=== PATIENT | female | born 2000 | race Caucasian/White ===

== ENCOUNTER 2023-03-03 20:58 | Emergency (ER) | payer OTHER, SELFPAY ==
[2023-03-03 21:01] VITALS: BP 141/91; PULSE 94; RESP 18; TEMP 36.7; O2SAT 97; BMI 39.0
[2023-03-03] MEDS: ONDANSETRON 4 MG RAPDIS TABLET PO (21:32)
[2023-03-03 21:43] LABS: Basophils Absolute Auto 0.1 10^3/uL (0.0-0.1); Basophils Percent Auto 0.6 % (0.2-2.0); Eosinophils Absolute Auto 0.3 10^3/uL (0.0-0.7); Eosinophils Percent Auto 3.2 % (0.9-7.0); Hematocrit 42.2 % (36.0-48.0); Hemoglobin 14.5 g/dL (12.0-16.0); Immature Granulocytes Abs Auto 0.04 10^3/uL (0.00-0.03); Immature Granulocytes Pct Auto 0.4 % (0.0-0.5); Lymphocytes Absolute Auto 2.6 10^3/uL (1.2-3.8); Lymphocytes Percent Auto 27.1 % (20.5-60.0); Mean Corpuscular HGB Conc 34.4 g/dL (29.9-35.2); Mean Corpuscular Hemoglobin 30.6 pg (26.7-34.0); Mean Platelet Volume 10.9 fL (9.5-13.5); Monocytes Absolute Auto 0.6 10^3/uL (0.3-0.8); Monocytes Percent Auto 6.2 % (1.7-12.0); Neutrophils Absolute Auto 6.1 10^3/uL (1.4-6.5); Neutrophils Percent Auto 62.5 % (43.0-75.0); Platelet Count 227 10^3/uL (150-450); Red Blood Count 4.74 10^6/uL (4.20-5.40); White Blood Count 9.7 10^3/uL (4.0-11.0)
[2023-03-03 22:02] LABS: Alanine Aminotransferase 47 U/L (14-59); Albumin Globulin Ratio 1.1; Albumin Level 3.7 g/dL (3.4-5.0); Alkaline Phosphatase 51 U/L (46-116); Anion Gap 12.1; Aspartate Amino Transferase 16 U/L (15-37); BUN Creatinine Ratio 10.2; Bilirubin Total 0.6 mg/dL (0.2-1.0); Calcium 8.6 mg/dL (8.5-10.1); Carbon Dioxide 27.2 mmol/L (21.0-32.0); Chloride 103 mmol/L (98-107); Estimated GFR (African America >60 (>=60); Estimated GFR (Non-African Ame >60 (>=60); Globulin 3.4 g/dL; Glucose 89 mg/dL (74-106); Potassium 3.3 mmol/L (3.5-5.1); Sodium 139 mmol/L (136-145); Total Protein 7.1 g/dL (6.4-8.2)
--- NOTE | 2023-03-03 22:44 | ED.ABDPAIN1 ---
HPI - Abdominal Pain General Chief Complaint: Abdominal Pain Stated Complaint: Abdominal Pain Time Seen by Provider: 03/03/23 21:05 Source: patient Mode of arrival: walk-in Limitations: no limitations History of Present Illness HPI narrative: patient with a past history of gallbladder problems for which she had previously been referred to a surgeon but decided against cholecystectomy, presents with upper abdominal pain, radiating to her back, it was associated with nausea, starting yesterday. She ate less today as his symptoms persisted and it seemed as though every time she ate, symptoms worsened. by the time she came to the emergency department today she was feeling much much better with less abdominal pain, no longer having nausea. No fever or chills. No recent fall or injury. She is breast-feeding. Related Data Previous Rx's Medication Instructions Recorded ondansetron 4 mg disintegrating 4 mg PO Q6H PRN nausea and 03/03/23 tablet vomiting #20 tabs Allergies Allergy/AdvReac Type Severity Reaction Status Date / Time No Known Drug Allergies Allergy Verified 03/03/23 21:06 Exam Narrative Exam Narrative: Nurses notes and vital signs reviewed and patient is not hypoxic. afebrile General: Well-appearing and in no apparent distress. Skin: Warm, dry, no pallor noted. Head: Normocephalic, atraumatic. Eye: Pupils are equal, round and EOMI. No scleral icterus. Cardiovascular: Regular Rate and Rhythm without murmur, gallop or rub. Respiratory: No accessory muscle use or respiratory distress. Lungs are clear to auscultation, no wheezing, rales or rhonchi Back: No CVA tenderness Musculoskeletal: normal ROM GI: Abdomen is soft, non-distended. Normal bowel sounds. No masses appreciated. No tenderness to palpation. No rebound, guarding, or rigidity noted. Neurological: A&O x4. No cranial nerve dysfunction observed. No truncal ataxia. Moves all extremities. Sensation intact. Psychiatric: Cooperative and interactive. Normal mood and affect. Constitutional Vital Signs, click to edit/add: Last Vital Signs Temp 98.1 F 03/03/23 21:01 Pulse 94 H 03/03/23 21:01 Resp 18 03/03/23 21:01 BP 141/91 03/03/23 21:01 Pulse Ox 97 03/03/23 21:01 O2 Del Method Room Air 03/03/23 21:01 Course Vital Signs Vital signs: Vital Signs Temperature 98.1 F 03/03/23 21:01 Pulse Rate 94 H 03/03/23 21:01 Respiratory Rate 18 03/03/23 21:01 Blood Pressure 141/91 03/03/23 21:01 Pulse Oximetry 97 03/03/23 21:01 Oxygen Delivery Method Room Air 03/03/23 21:01 Temperature 98.1 F 03/03/23 21:01 Pulse Rate 94 H 03/03/23 21:01 Respiratory Rate 18 03/03/23 21:01 Blood Pressure 141/91 03/03/23 21:01 Pulse Oximetry 97 03/03/23 21:01 Oxygen Delivery Method Room Air 03/03/23 21:01 MDM - Abdominal Pain MDM Narrative Medical decision making narrative: blood tests are notable only for very slightly decreased potassium. Renal function is normal. White blood cell count is normal. Electrolytes are otherwise normal. LFTs are negative. Lipase negative. Bilirubin normal. The patient had received oral dissolvable Zofran in the emergency department. She is breast-feeding. She was discharged home with a prescription for additional Zofran and recommendation maintain a clear liquid diet and advance to soft bland foods until her symptoms resolve. She was given referral information for Dr. Cabral for follow-up. Lab Data Attestation: I reviewed the patient's lab results. Labs: Lab Results 03/03/23 Range/Units 21:31 WBC 9.7 (4.0-11.0) 10^3/uL RBC 4.74 (4.20-5.40) 10^6/uL Hgb 14.5 (12.0-16.0) g/dL Hct 42.2 (36.0-48.0) % MCV 89.0 (81.0-99.0) fL MCH 30.6 (26.7-34.0) pg MCHC 34.4 (29.9-35.2) g/dL RDW 12.0 (11.0-15.0) % Plt Count 227 (150-450) 10^3/uL MPV 10.9 (9.5-13.5) fL Neut % (Auto) 62.5 (43.0-75.0) % Lymph % (Auto) 27.1 (20.5-60.0) % [place] % (Auto) 6.2 (1.7-12.0) % Eos % (Auto) 3.2 (0.9-7.0) % Baso % (Auto) 0.6 (0.2-2.0) % Neut # (Auto) 6.1 (1.4-6.5) 10^3/uL Lymph # (Auto) 2.6 (1.2-3.8) 10^3/uL [place] # (Auto) 0.6 (0.3-0.8) 10^3/uL Eos # (Auto) 0.3 (0.0-0.7) 10^3/uL Baso # (Auto) 0.1 (0.0-0.1) 10^3/uL Abs Immat Gran (auto) 0.04 H (0.00-0.03) 10^3/uL Imm/Tot Granulo (auto) 0.4 (0.0-0.5) % Sodium 139 (136-145) mmol/L Potassium 3.3 L (3.5-5.1) mmol/L Chloride 103 (98-107) mmol/L Carbon Dioxide 27.2 (21.0-32.0) mmol/L Anion Gap 12.1 BUN 6.0 L (7.0-18.0) mg/dL Creatinine 0.59 (0.55-1.02) mg/dL Est GFR ( Amer) >60 (>=60) Est GFR (Non-Af Amer) >60 (>=60) BUN/Creatinine Ratio 10.2 Glucose 89 (74-106) mg/dL Calcium 8.6 (8.5-10.1) mg/dL Total Bilirubin 0.6 (0.2-1.0) mg/dL AST 16 (15-37) U/L ALT 47 (14-59) U/L Alkaline Phosphatase 51 (46-116) U/L Total Protein 7.1 (6.4-8.2) g/dL Albumin 3.7 (3.4-5.0) g/dL Globulin 3.4 g/dL Albumin/Globulin Ratio 1.1 Lipase 24.0 (16.0-77.0) U/L Discharge Plan Discharge Chief Complaint: Abdominal Pain Clinical Impression: Abdominal pain, Biliary colic Patient Disposition: Home, Self-Care Time of Disposition Decision: 22:47 Prescriptions / Home Meds: New ondansetron 4 mg tablet,disintegrating 4 mg PO Q6H PRN (Reason: nausea and vomiting) Qty: 20 0RF Instructions: Biliary Colic (ED), Abdominal Pain (ED) Stand Alone Forms: Portal Instructions Referrals: Giovany Cabral MD [Physician] - As soon as possible
[2023-03-03] MEDS: POTASSIUM CHLORIDE 10 MEQ ER TABLET 40 MEQ PO (22:53)
== END 2023-03-03 22:59 | disposition home or self-care (01) ==
PROVIDERS: Emergency Provider Emergency Medicine
DX: R10.9 Unspecified abdominal pain (principal); K80.50 Calculus of bile duct without cholangitis or cholecystitis without obstruction
CPT/HCPCS: 36415; 80053; 83690; 85025; 99283

== ENCOUNTER 2023-03-06 20:05 | Emergency (ER) | payer OTHER, SELFPAY ==
[2023-03-06 20:09] VITALS: BP 140/92; PULSE 66; RESP 16; TEMP 36.7; O2SAT 99; BMI 39.0
--- NOTE | 2023-03-06 20:41 | ED_ITS ---
HPI - General Adult General Chief complaint: Abdominal Pain Stated complaint: gallbladder Time Seen by Provider: 03/06/23 20:20 Source: patient Mode of arrival: walk-in History of Present Illness HPI narrative: This 22-year-old female presents for evaluation of ongoing epigastric, right upper quadrant and right upper back pain. The patient states when she was 12 she was diagnosed with gallbladder disease by her rip sawyer. Due to her young age her gallbladder was not removed. She has had intermittent problems with her gallbladder since that time. She was seen here several days ago with gallbladder pain and was discharged home with a prescription of Zofran. She called the general surgeon who was on-call to make an appointment but cannot get in to see him until March. She states she is having pain every time she eats with [employer] and occasional vomiting. She is not having any diarrhea. She denies any tobacco or alcohol use. She states that her symptoms have been waxing and waning for the past 10 years but recently has gotten worse. She is and breast-feeding. She denies any chest pain or shortness of breath. She points to her right mid to upper back as area of radiation of her pain. She has not had any recent radiographic studies but did have labs several days ago that were normal. Related Data Previous Rx's Medication Instructions Recorded ondansetron 4 mg disintegrating 4 mg PO Q6H PRN nausea and 03/03/23 tablet vomiting #20 tabs Allergies Allergy/AdvReac Type Severity Reaction Status Date / Time No Known Drug Allergies Allergy Verified 03/06/23 20:14 Review of Systems ROS Status of ROS 10 or more systems reviewed and unremarkable except as noted in history and below [facility] Social History Smoking status: Never smoker Exam Narrative Exam Narrative: Nurses note and vital signs reviewed and patient is not hypoxic. Blood pressure is mildly elevated at 140/92 General: The patient appears well and in no apparent distress. Patient is resting comfortably on cart. No active vomiting Skin: Warm, dry, no pallor noted. There is no rash noted. Head: Normocephalic, atraumatic Eye: Normal conjunctiva, no drainage, EOMI. PERRL Ears, Nose, Mouth, and Throat: oral mucosa is moist. Nares patent. Mouth without vesicles. Ear canals patent. Tm's without Erythema Cardiovascular: Regular Rate and Rhythm, pulses are brisk and equal bilaterally Respiratory: Patient is in no distress, no accessory muscle use, lungs are clear to auscultation, no wheezing, rales or rhonchi Back: no midline bony vertebral tenderness or step-off, no reproducible tenderness, no CVA tenderness bilaterally to percussion. GI: Obese,soft, non-distended, tenderness to epigastrium and RUQ with minimal guarding, bowel sounds are normal, no RLQ or LUQ or LLQ tenderness to palpation Musculoskeletal: The patient has no evidence of calf tenderness, no pitting edema, symmetrical pulses noted bilaterally Neurological: A&O x4, normal speech Psychiatric: Cooperative Constitutional Vital Signs, click to edit/add: Last Vital Signs Temp 98.1 F 03/06/23 20:09 Pulse 66 03/06/23 20:09 Resp 16 03/06/23 20:09 BP 140/92 H 03/06/23 20:09 Pulse Ox 99 03/06/23 20:09 O2 Del Method Room Air 03/06/23 20:09 Course Vital Signs Vital signs: Vital Signs Temperature 98.1 F 03/06/23 20:09 Pulse Rate 66 03/06/23 20:09 Respiratory Rate 16 03/06/23 20:09 Blood Pressure 140/92 H 03/06/23 20:09 Pulse Oximetry 99 03/06/23 20:09 Oxygen Delivery Method Room Air 03/06/23 20:09 Temperature 98.1 F 03/06/23 20:09 Pulse Rate 66 03/06/23 20:09 Respiratory Rate 16 03/06/23 20:09 Blood Pressure 140/92 H 03/06/23 20:09 Pulse Oximetry 99 03/06/23 20:09 Oxygen Delivery Method Room Air 03/06/23 20:09 Medical Decision Making [facility] Narrative Medical decision making narrative: 22-year-old female presents for evaluation of rapid upper quadrant and right mid to upper back pain. She states she has been having gallbladder problems since she was 12. She was seen here recently and had routine labs done that were normal. She was given a prescription for Zofran and referred to outpatient general surgery. She presents for evaluation of ongoing and worsening symptoms. She has been eating bland foods such as chicken soup but still having nausea, right upper quadrant pain with radiation into her back. She has not had a fever. She is breast-feeding. She has been taking Tylenol without relief of her pain. On her physical exam she was mildly tender in the right upper quadrant and epigastrium. An IV was placed and she was medicated with IV fluids, Toradol and Zofran. I reviewed her labs from her recent visit and they were normal. Today's labs are similar with a low potassium at 3.0 and a mild elevation in her bilirubin and ALT. She has a normal white count and hemoglobin. She has not had any radiographic imaging done since her symptoms started. I explained that I do not have ultrasound available what would CAT scan her to make sure that there was nothing else going on. She requested a test prior to the CT scan and the CT scan was canceled as her test is positive. She is however feeling better. She will be referred to her TAXONOM[employer] TEACHER and will follow up with outpatient general surgery as previously scheduled. She will be given a prescription for potassium to take for her low potassium and a prescription for vitamins. Lab Data Labs: Lab Results 03/06/23 03/06/23 Range/Units 20:40 22:30 WBC 9.7 (4.0-11.0) 10^3/uL RBC 4.89 (4.20-5.40) 10^6/uL Hgb 14.9 (12.0-16.0) g/dL Hct 43.3 (36.0-48.0) % MCV 88.5 (81.0-99.0) fL MCH 30.5 (26.7-34.0) pg MCHC 34.4 (29.9-35.2) g/dL RDW 11.9 (11.0-15.0) % Plt Count 222 (150-450) 10^3/uL MPV 11.3 (9.5-13.5) fL Neut % (Auto) 67.1 (43.0-75.0) % Lymph % (Auto) 23.7 (20.5-60.0) % [place] % (Auto) 5.8 (1.7-12.0) % Eos % (Auto) 2.6 (0.9-7.0) % Baso % (Auto) 0.5 (0.2-2.0) % Neut # (Auto) 6.5 (1.4-6.5) 10^3/uL Lymph # (Auto) 2.3 (1.2-3.8) 10^3/uL [place] # (Auto) 0.6 (0.3-0.8) 10^3/uL Eos # (Auto) 0.3 (0.0-0.7) 10^3/uL Baso # (Auto) 0.1 (0.0-0.1) 10^3/uL Abs Immat Gran (auto) 0.03 (0.00-0.03) 10^3/uL Imm/Tot Granulo (auto) 0.3 (0.0-0.5) % D-Dimer 0.38 (<=0.59) mg/L FEU Sodium 139 (136-145) mmol/L Potassium 3.0 L (3.5-5.1) mmol/L Chloride 101 (98-107) mmol/L Carbon Dioxide 25.2 (21.0-32.0) mmol/L Anion Gap 15.8 BUN 3.0 L (7.0-18.0) mg/dL Creatinine 0.54 L (0.55-1.02) mg/dL Est GFR ( Amer) >60 (>=60) Est GFR (Non-Af Amer) >60 (>=60) BUN/Creatinine Ratio 5.6 Glucose 73 L (74-106) mg/dL Calcium 8.1 L (8.5-10.1) mg/dL Total Bilirubin 1.4 H (0.2-1.0) mg/dL AST 29 (15-37) U/L ALT 68 H (14-59) U/L Alkaline Phosphatase 57 (46-116) U/L Total Protein 7.2 (6.4-8.2) g/dL Albumin 3.7 (3.4-5.0) g/dL Globulin 3.5 g/dL Albumin/Globulin Ratio 1.1 Lipase 24.0 (16.0-77.0) U/L Urine HCG, Qual Positive A (NEGATIVE) Discharge Plan Discharge Chief Complaint: Abdominal Pain Clinical Impression: Positive test, Biliary colic, Hypokalemia Patient Disposition: Home, Self-Care Time of Disposition Decision: 23:03 Condition: Good Prescriptions / Home Meds: No Action ondansetron 4 mg tablet,disintegrating 4 mg PO Q6H PRN (Reason: nausea and vomiting) Qty: 20 0RF Instructions: (ED), Biliary Colic (ED), Hypokalemia (ED) Stand Alone Forms: Portal Instructions Referrals: Physician,Non-Staff, [Primary Care Provider] - 1 week Fletcher Pro DO [Physician] - 1 week Mirella Rosales MD [Emergency Provider] - 1 week
[2023-03-06] MEDS: 0.9 % SODIUM CHLORIDE 1,000 ML 1000 ML IV (20:55)
[2023-03-06] MEDS: KETOROLAC TROMETHAMINE 30 MG/ML VIAL IVP (20:56)
[2023-03-06] MEDS: FAMOTIDINE/PF 20 MG/2 ML VIAL IV (20:56)
[2023-03-06] MEDS: ONDANSETRON PF 4 MG/2 ML VIAL IV (20:56)
[2023-03-06 21:25] LABS: Basophils Absolute Auto 0.1 10^3/uL (0.0-0.1); Basophils Percent Auto 0.5 % (0.2-2.0); Eosinophils Absolute Auto 0.3 10^3/uL (0.0-0.7); Eosinophils Percent Auto 2.6 % (0.9-7.0); Hematocrit 43.3 % (36.0-48.0); Hemoglobin 14.9 g/dL (12.0-16.0); Immature Granulocytes Abs Auto 0.03 10^3/uL (0.00-0.03); Immature Granulocytes Pct Auto 0.3 % (0.0-0.5); Lymphocytes Absolute Auto 2.3 10^3/uL (1.2-3.8); Lymphocytes Percent Auto 23.7 % (20.5-60.0); Mean Corpuscular HGB Conc 34.4 g/dL (29.9-35.2); Mean Corpuscular Hemoglobin 30.5 pg (26.7-34.0); Mean Corpuscular Volume 88.5 fL (81.0-99.0); Mean Platelet Volume 11.3 fL (9.5-13.5); Monocytes Absolute Auto 0.6 10^3/uL (0.3-0.8); Monocytes Percent Auto 5.8 % (1.7-12.0); Neutrophils Absolute Auto 6.5 10^3/uL (1.4-6.5); Neutrophils Percent Auto 67.1 % (43.0-75.0); Platelet Count 222 10^3/uL (150-450); Red Blood Count 4.89 10^6/uL (4.20-5.40); Red Cell Distribution Width 11.9 % (11.0-15.0); White Blood Count 9.7 10^3/uL (4.0-11.0)
[2023-03-06 21:36] LABS: Alanine Aminotransferase 68 U/L (14-59); Albumin Globulin Ratio 1.1; Albumin Level 3.7 g/dL (3.4-5.0); Alkaline Phosphatase 57 U/L (46-116); Anion Gap 15.8; Aspartate Amino Transferase 29 U/L (15-37); BUN Creatinine Ratio 5.6; Bilirubin Total 1.4 mg/dL (0.2-1.0); Calcium 8.1 mg/dL (8.5-10.1); Carbon Dioxide 25.2 mmol/L (21.0-32.0); Chloride 101 mmol/L (98-107); Estimated GFR (African America >60 (>=60); Estimated GFR (Non-African Ame >60 (>=60); Globulin 3.5 g/dL; Glucose 73 mg/dL (74-106); Sodium 139 mmol/L (136-145); Total Protein 7.2 g/dL (6.4-8.2)
[2023-03-06 21:48] LABS: D Dimer 0.38 mg/L FEU (<=0.59)
[2023-03-06 22:40] LABS: HCG Qualitative Urine* POSITIVE (NEGATIVE)
[2023-03-06 23:13] VITALS: BP 122/78; PULSE 68; RESP 15; O2SAT 100
== END 2023-03-06 23:15 | disposition home or self-care (01) ==
PROVIDERS: Emergency Provider Emergency Medicine
DX: O26.899 Other specified pregnancy related conditions, unspecified trimester (principal); K80.50 Calculus of bile duct without cholangitis or cholecystitis without obstruction; E87.6 Hypokalemia; Z3A.00 Weeks of gestation of pregnancy not specified
CPT/HCPCS: 36415; 80053; 83690; 84703; 85025; 85378; 96361; 96374; 96375; 99284

== ENCOUNTER 2023-03-07 14:17 | Outpatient (OUT) | payer OTHER, SELFPAY ==
--- NOTE | 2023-03-07 15:25 | US_ITS ---
The [address] [address] Patient Name: EDISON ASHLEY MRN: [id number] date: 2000 Sex: F Assigned Patient Location: LAB Current Patient Location: .[facility] Accession/Order Number: [id number] Exam Date: 03/07/2023 15:34 Report Date: 03/08/2023 06:39 At the request of: XIN GRULLON Procedure: US right upper quadrant EXAMINATION: US right upper quadrant HISTORY: Right Side Upper Quadrant Pain, Gallbladder attack K82.9 COMPARISON: No relevant comparison available. TECHNIQUE: Transabdominal evaluation of the right upper quadrant. FINDINGS: LIVER: Normal size and echotexture. Color Doppler demonstrates patent hepatic veins. PORTAL VEIN: Duplex Doppler demonstrates normal hepatopetal flow pattern with elevated flow velocity averaging 141 cm/s. GALLBLADDER: Contains several large stones, largest is 3.2 cm. Gallbladder is filled with dense material/sludge. No abnormal wall thickening or free fluid. BILIARY: No abnormal dilation or stones. Common bile duct diameter is within normal limits. PANCREASE: No visible mass, abnormal atrophy, or duct dilation. KIDNEY: Avascular area of soft tissue echogenicity within mid body of kidney, 2.1 cm in diameter. No cortical thinning, stones, free fluid. Size: 11.8 x 5.9 x 5.3 cm US/US right upper quadrant IMPRESSION: 1. Cholelithiasis: Multiple large stones within noninflamed gallbladder, and debris filling the gallbladder, likely sludge. 2. Nonspecific 2.1 cm area which appears to represent soft tissue within mid body of right kidney. Given patient's age malignancy is unlikely, but consider follow-up CT abdomen with and without IV contrast for further evaluation or follow-up ultrasound in 2-3 weeks. Electronically authenticated by: PAM SALAZAR Date: 03/08/2023 06:39
[2023-03-07 16:19] LABS: HCG Quantitative 15708 mIU/mL
== END 2023-03-07 14:18 | disposition home or self-care (01) ==
LOC: LAB 14:21
PROVIDERS: Visit Provider Obstetrics & Gynecology
DX: N92.6 Irregular menstruation, unspecified (principal); K82.9 Disease of gallbladder, unspecified; K80.20 Calculus of gallbladder without cholecystitis without obstruction
CPT/HCPCS: 36415; 76705; 84702

== ENCOUNTER 2023-03-08 06:07 | Emergency (ER) | payer OTHER, SELFPAY ==
[2023-03-08 06:17] VITALS: BP 146/83; PULSE 99; RESP 16; TEMP 36.4; O2SAT 96
--- NOTE | 2023-03-08 06:34 | ED.ABDPAIN1 ---
HPI - Abdominal Pain General Chief Complaint: Abdominal Pain Stated Complaint: gallbladder pain Time Seen by Provider: 03/08/23 06:18 Source: patient Mode of arrival: walk-in Limitations: no limitations History of Present Illness HPI narrative: patient presents complaining of abdominal pain. Believes it is her gallbladder. Has been here a couple of times in the past few days for the same. Seen a couple of days ago and CT abdomen not performed because of . Seen by energy conservation engineer yesterday who ordered an ultrasound of her gallbladder. States she has not been able to eat much because of the pain. Points to her right back , RUQ and bilat lower quads as site of pain. No fever. has nausea that she is able to treat with zofran. MD elicited complaint: Reports abdominal pain Related Data Home Medications Medication Instructions Recorded Confirmed metoclopramide HCl 10 mg tablet mg 03/08/23 omeprazole 20 mg capsule,delayed mg 03/08/23 release potassium chloride 20 mEq meq PO 03/08/23 tablet,extended release(part/cryst) (Klor-Con M) vitamin with calcium tab 03/08/23 no.72-iron 27 mg-folic acid 1 mg tablet (M-Lashonda Plus) Previous Rx's Medication Instructions Recorded ondansetron 4 mg disintegrating 4 mg PO Q6H PRN nausea and 03/03/23 tablet vomiting #20 tabs Allergies Allergy/AdvReac Type Severity Reaction Status Date / Time No Known Drug Allergies Allergy Verified 03/08/23 06:16 Review of Systems ROS Status of ROS 10 or more systems reviewed and unremarkable except as noted in history and below PFS PFS Social History Smoking status: Never smoker Exam Constitutional Vital Signs, click to edit/add: Last Vital Signs Temp 97.6 F 03/08/23 06:17 Pulse 99 H 03/08/23 06:17 Resp 16 03/08/23 06:17 BP 146/83 H 03/08/23 06:17 Pulse Ox 96 03/08/23 06:17 O2 Del Method Room Air 03/08/23 06:17 Common normals: no apparent distress, oriented x3, no limitations, healthy appearing, alert and well nourished [facility] Common normals: normocephalic and head/scalp atraumatic Eye Common normals: PERRL, EOMs intact bilaterally and conjunctivae normal Respiratory Common normals: normal respiratory effort, no retractions, no use of accessory muscles and clear to auscultation bilaterally Cardio Common normals: regular rate, regular rhythm, S1 normal heart sound and S2 normal heart sound GI Other: mild abdominal tenderness. no focal findings Extremity Common normals: normal to inspection and full ROM Neuro Common normals: oriented x3, CN's II-XII intact bilaterally, moves all extremities, no focal motor deficits and no sensory deficits noted Psych Appearance: grossly normal Course Vital Signs Vital signs: Vital Signs Temperature 97.6 F 03/08/23 06:17 Pulse Rate 99 H 03/08/23 06:17 Respiratory Rate 16 03/08/23 06:17 Blood Pressure 146/83 H 03/08/23 06:17 Pulse Oximetry 96 03/08/23 06:17 Oxygen Delivery Method Room Air 03/08/23 06:17 Temperature 97.6 F 03/08/23 06:17 Pulse Rate 99 H 03/08/23 06:17 Respiratory Rate 16 03/08/23 06:17 Blood Pressure 146/83 H 03/08/23 06:17 Pulse Oximetry 96 03/08/23 06:17 Oxygen Delivery Method Room Air 03/08/23 06:17 MDM - Abdominal Pain MDM Narrative Medical decision making narrative: patient seen in the ED 03/03 and 03/06 for abdominal pain. Seen by Ultrasonic Hand Solderer yesterday for same pain and ultrasound ordered. Now returns to ER for same pain. States she does not know results of ultrasound from yesterday. Able to control nausea with prescribed zofran. Labs ordered and care transferred to Dr Rutledge at change of shift Discharge Plan Discharge Chief Complaint: Abdominal Pain Clinical Impression: Abdominal pain Patient Disposition: Still a Patient Prescriptions / Home Meds: No Action potassium chloride [Klor-Con M20] 20 mEq tablet,ER particles/crystals PO omeprazole 20 mg capsule,delayed release(DR/EC) metoclopramide HCl 10 mg tablet M- Plus 27 mg iron- 1 mg tablet ondansetron 4 mg tablet,disintegrating 4 mg PO Q6H PRN (Reason: nausea and vomiting) Qty: 20 0RF Referrals: Physician,Non-Staff, MD [Primary Care Provider] - 1 week
[2023-03-08 07:10] LABS: Bilirubin Urine NEGATIVE (NEGATIVE); Blood Urine TRACE-I (NEGATIVE); Clarity Urine CLEAR (CLEAR); Color Urine LT. YELLOW (YELLOW); Glucose Urine UA NEGATIVE (NEGATIVE); Ketones Urine >=80 mg/dL (NEGATIVE); Leukocyte Esterase Urine TRACE (NEGATIVE); Nitrite Urine NEGATIVE (NEGATIVE); Protein Urine NEGATIVE (NEG/TRACE); Specific Gravity Urine >=1.030 (1.005-1.025); Urobilinogen Urine 0.2 EU/dL (0.2-1.0)
[2023-03-08 07:12] LABS: Urine Microscopic Indicated YES
[2023-03-08 07:28] LABS: Basophils Percent Auto 0.3 % (0.2-2.0); Eosinophils Absolute Auto 0.1 10^3/uL (0.0-0.7); Eosinophils Percent Auto 0.5 % (0.9-7.0); Hematocrit 43.4 % (36.0-48.0); Hemoglobin 15.2 g/dL (12.0-16.0); Immature Granulocytes Abs Auto 0.02 10^3/uL (0.00-0.03); Immature Granulocytes Pct Auto 0.2 % (0.0-0.5); Lymphocytes Absolute Auto 1.2 10^3/uL (1.2-3.8); Lymphocytes Percent Auto 9.6 % (20.5-60.0); Mean Corpuscular Hemoglobin 30.8 pg (26.7-34.0); Mean Platelet Volume 11.2 fL (9.5-13.5); Monocytes Absolute Auto 0.5 10^3/uL (0.3-0.8); Monocytes Percent Auto 4.2 % (1.7-12.0); Neutrophils Absolute Auto 10.3 10^3/uL (1.4-6.5); Neutrophils Percent Auto 85.2 % (43.0-75.0); Platelet Count 229 10^3/uL (150-450); Red Blood Count 4.93 10^6/uL (4.20-5.40); Red Cell Distribution Width 12.2 % (11.0-15.0); White Blood Count 12.1 10^3/uL (4.0-11.0)
[2023-03-08 07:39] LABS: WBC Urine 0-2 #/HPF (NONE SEEN)
[2023-03-08 07:40] LABS: Bacteria Urine TRACE #/HPF (NONE SEEN); Cast Seen? NONE SEEN #/LPF (NONE SEEN); Crystals Seen? None Seen #/HPF (None Seen); Mucus Urine NONE SEEN (NONE SEEN); Squamous Epithelial Cell Urine FEW #/LPF (NONE/RARE); Urine Culture Indicated NO
[2023-03-08 07:44] LABS: Alanine Aminotransferase 77 U/L (14-59); Albumin Globulin Ratio 1.1; Albumin Level 3.9 g/dL (3.4-5.0); Alkaline Phosphatase 63 U/L (46-116); Anion Gap 18.5; Aspartate Amino Transferase 28 U/L (15-37); BUN Creatinine Ratio 3.4; Bilirubin Total 1.4 mg/dL (0.2-1.0); Calcium 8.4 mg/dL (8.5-10.1); Carbon Dioxide 21.1 mmol/L (21.0-32.0); Chloride 101 mmol/L (98-107); Estimated GFR (African America >60 (>=60); Estimated GFR (Non-African Ame >60 (>=60); Globulin 3.6 g/dL; Glucose 75 mg/dL (74-106); Potassium 3.6 mmol/L (3.5-5.1); Sodium 137 mmol/L (136-145); Total Protein 7.5 g/dL (6.4-8.2)
[2023-03-08 08:19] VITALS: BP 131/97; PULSE 98; RESP 20; O2SAT 98
--- NOTE | 2023-03-08 08:37 | ED_ITS ---
HPI - Abdominal Pain General Chief Complaint: Abdominal Pain Stated Complaint: gallbladder pain Time Seen by Provider: 03/08/23 06:18 Source: patient Mode of arrival: walk-in Limitations: no limitations History of Present Illness HPI narrative: the patient was initially seen by Dr. Beaulieu and signed out to me after discussing the case with him thoroughly. MD elicited complaint: Reports abdominal pain Related Data Home Medications Medication Instructions Recorded Confirmed metoclopramide HCl 10 mg tablet mg 03/08/23 omeprazole 20 mg capsule,delayed mg 03/08/23 release potassium chloride 20 mEq meq PO 03/08/23 tablet,extended release(part/cryst) (Klor-Con M) vitamin with calcium tab 03/08/23 no.72-iron 27 mg-folic acid 1 mg tablet (M- Plus) Previous Rx's Medication Instructions Recorded ondansetron 4 mg disintegrating 4 mg PO Q6H PRN nausea and 03/03/23 tablet vomiting #20 tabs hydrocodone 5 mg-acetaminophen 325 1 tab PO Q6H PRN pain 5 days #20 03/08/23 mg tablet tabs ondansetron 4 mg disintegrating 4 mg PO Q6H PRN nausea and 03/08/23 tablet vomiting #20 tabs Allergies Allergy/AdvReac Type Severity Reaction Status Date / Time No Known Drug Allergies Allergy Verified 03/08/23 06:16 PFSH PFSH Social History Smoking status: Never smoker Exam Constitutional Vital Signs, click to edit/add: Last Vital Signs Temp 97.6 F 03/08/23 06:17 Pulse 98 H 03/08/23 08:19 Resp 20 03/08/23 08:19 BP 131/97 H 03/08/23 08:19 Pulse Ox 98 03/08/23 08:19 O2 Del Method Room Air 03/08/23 06:17 Course Vital Signs Vital signs: Vital Signs Temperature 97.6 F 03/08/23 06:17 Pulse Rate 99 H 03/08/23 06:17 Respiratory Rate 16 03/08/23 06:17 Blood Pressure 146/83 H 03/08/23 06:17 Pulse Oximetry 96 03/08/23 06:17 Oxygen Delivery Method Room Air 03/08/23 06:17 Temperature 97.6 F 03/08/23 06:17 Pulse Rate 98 H 03/08/23 08:19 Respiratory Rate 20 03/08/23 08:19 Blood Pressure 131/97 H 03/08/23 08:19 Pulse Oximetry 98 03/08/23 08:19 Oxygen Delivery Method Room Air 03/08/23 06:17 MDM - Abdominal Pain MDM Narrative Medical decision making narrative: Gallstones are identified without acute cholecystitis or pancreatitis or hepatitis. I've discussed the case with Dr. Pro and he has already referred the patient to a general surgeon in [place], knowing that she is . I have prescribed her [place] and Zofran. Treatment diagnosis and follow-up were discussed with the patient. Differential Diagnosis Differential diagnosis: Likely abdominal pain and other (acute cholecystitis, biliary colic, pancreatitis, hepatitis) Lab Data Attestation: I reviewed the patient's lab results. Labs: Lab Results 03/08/23 03/08/23 Range/Units 07:00 07:13 WBC 12.1 H (4.0-11.0) 10^3/uL RBC 4.93 (4.20-5.40) 10^6/uL Hgb 15.2 (12.0-16.0) g/dL Hct 43.4 (36.0-48.0) % MCV 88.0 (81.0-99.0) fL MCH 30.8 (26.7-34.0) pg MCHC 35.0 (29.9-35.2) g/dL RDW 12.2 (11.0-15.0) % Plt Count 229 (150-450) 10^3/uL MPV 11.2 (9.5-13.5) fL Neut % (Auto) 85.2 H (43.0-75.0) % Lymph % (Auto) 9.6 L (20.5-60.0) % [place] % (Auto) 4.2 (1.7-12.0) % Eos % (Auto) 0.5 L (0.9-7.0) % Baso % (Auto) 0.3 (0.2-2.0) % Neut # (Auto) 10.3 H (1.4-6.5) 10^3/uL Lymph # (Auto) 1.2 (1.2-3.8) 10^3/uL [place] # (Auto) 0.5 (0.3-0.8) 10^3/uL Eos # (Auto) 0.1 (0.0-0.7) 10^3/uL Baso # (Auto) 0.0 (0.0-0.1) 10^3/uL Abs Immat Gran (auto) 0.02 (0.00-0.03) 10^3/uL Imm/Tot Granulo (auto) 0.2 (0.0-0.5) % Sodium 137 (136-145) mmol/L Potassium 3.6 (3.5-5.1) mmol/L Chloride 101 (98-107) mmol/L Carbon Dioxide 21.1 (21.0-32.0) mmol/L Anion Gap 18.5 BUN 2.0 L (7.0-18.0) mg/dL Creatinine 0.58 (0.55-1.02) mg/dL Est GFR ( Amer) >60 (>=60) Est GFR (Non-Af Amer) >60 (>=60) BUN/Creatinine Ratio 3.4 Glucose 75 (74-106) mg/dL Calcium 8.4 L (8.5-10.1) mg/dL Total Bilirubin 1.4 H (0.2-1.0) mg/dL AST 28 (15-37) U/L ALT 77 H (14-59) U/L Alkaline Phosphatase 63 (46-116) U/L Total Protein 7.5 (6.4-8.2) g/dL Albumin 3.9 (3.4-5.0) g/dL Globulin 3.6 g/dL Albumin/Globulin Ratio 1.1 Lipase 23.0 (16.0-77.0) U/L Urine Color Lt. yellow (YELLOW) Urine Clarity Clear (CLEAR) Urine pH 6.0 (5.0-9.0) Ur Specific [place] >=1.030 A (1.005-1.025) Urine Protein Negative (NEG/TRACE) mg/dL Urine Glucose (UA) Negative (NEGATIVE) mg/dL Urine Ketones >=80 A (NEGATIVE) mg/dL Urine Occult Blood Trace-i (NEGATIVE) Urine Nitrite Negative (NEGATIVE) Urine Bilirubin Negative (NEGATIVE) Urine Urobilinogen 0.2 (0.2-1.0) EU/dL Ur Leukocyte Esterase Trace A (NEGATIVE) Urine RBC 2-5 A (0-2) #/HPF Urine WBC 0-2 A (NONE SEEN) #/HPF Ur Squamous Epith Cells Few A (NONE/RARE) #/LPF Urine Crystals None seen (None Seen) #/HPF Urine Bacteria Trace A (NONE SEEN) #/HPF Urine Casts None seen (NONE SEEN) #/LPF Urine Mucus None seen (NONE SEEN) Ur Culture Indicated? No Imaging Data gallbladder ultrasound: Radiologist's impression: Procedure: US right upper quadrant EXAMINATION: US right upper quadrant HISTORY: Right Side Upper Quadrant Pain, Gallbladder attack K82.9 COMPARISON: No relevant comparison available. TECHNIQUE: Transabdominal evaluation of the right upper quadrant. FINDINGS: LIVER: Normal size and echotexture. Color Doppler demonstrates patent hepatic veins. PORTAL VEIN: Duplex Doppler demonstrates normal hepatopetal flow pattern with elevated flow velocity averaging 141 cm/s. GALLBLADDER: Contains several large stones, largest is 3.2 cm. Gallbladder is filled with dense material/sludge. No abnormal wall thickening or free fluid. BILIARY: No abnormal dilation or stones. Common bile duct diameter is within normal limits. PANCREASE: No visible mass, abnormal atrophy, or duct dilation. KIDNEY: Avascular area of soft tissue echogenicity within mid body of kidney, 2.1 cm in diameter. No cortical thinning, stones, free fluid. Size: 11.8 x 5.9 x 5.3 cm IMPRESSION: 1. Cholelithiasis: Multiple large stones within noninflamed gallbladder, and debris filling the gallbladder, likely sludge. 2. Nonspecific 2.1 cm area which appears to represent soft tissue within mid body of right kidney. Given patient's age malignancy is unlikely, but consider follow-up CT abdomen with and without IV contrast for further evaluation or follow-up ultrasound in 2-3 weeks. Electronically authenticated by: PAM SALAZAR Date: 03/08/2023 06:39 Discharge Plan Discharge Chief Complaint: Abdominal Pain Clinical Impression: Cholelithiasis affecting in first trimester, antepartum, Biliary colic Patient Disposition: Home, Self-Care Time of Disposition Decision: 08:35 Condition: Good Mode of Transportation: Private Vehicle Prescriptions / Home Meds: New hydrocodone-acetaminophen 5-325 mg tablet 1 tab PO Q6H PRN (Reason: pain) 5 Days Qty: 20 0RF ondansetron 4 mg tablet,disintegrating 4 mg PO Q6H PRN (Reason: nausea and vomiting) Qty: 20 0RF No Action potassium chloride [Klor-Con M20] 20 mEq tablet,ER particles/crystals PO omeprazole 20 mg capsule,delayed release(DR/EC) metoclopramide HCl 10 mg tablet M-[place] Plus 27 mg iron- 1 mg tablet ondansetron 4 mg tablet,disintegrating 4 mg PO Q6H PRN (Reason: nausea and vomiting) Qty: 20 0RF Instructions: Biliary Colic (ED), Gallstones (ED), Laparoscopic Cholecystectomy (DC) Additional Instructions: Follow-up with general surgeon to whom you have been referred by Dr. Pro. If you have not been contacted by the end of the day please call Dr. Pro's office. Stand Alone Forms: Portal Instructions Referrals: Physician,Non-Staff, MD [Primary Care Provider] - 1 week
[2023-03-08] MEDS: ONDANSETRON 4 MG RAPDIS TABLET SL (08:44)
[2023-03-08] MEDS: HYDROCODONE/ACET 10-325 MG TABLET 1 TAB PO (08:44)
== END 2023-03-08 08:49 | disposition home or self-care (01) ==
PROVIDERS: Internal Medicine; Emergency Provider Emergency Medicine
DX: O99.611 Diseases of the digestive system complicating pregnancy, first trimester (principal); K80.70 Calculus of gallbladder and bile duct without cholecystitis without obstruction; Z79.899 Other long term (current) drug therapy; Z3A.00 Weeks of gestation of pregnancy not specified
CPT/HCPCS: 36415; 80053; 81001; 83690; 85025; 99283

== ENCOUNTER 2023-03-31 10:12 | Outpatient (OUT) | payer OTHER, SELFPAY ==
--- NOTE | 2023-03-31 10:14 | US_ITS ---
The [address] [address] Patient Name: EDISON ASHLEY MRN: [id number] date: 2000 Sex: F Assigned Patient Location: US Current Patient Location: Accession/Order Number: [id number] Exam Date: 03/31/2023 10:14 Report Date: 04/01/2023 00:26 At the request of: XIN GRULLON Procedure: US OB transvaginal EXAMINATION: US OB transvaginal HISTORY: MISSED MENSES COMPARISON: No relevant comparison available. FINDINGS: GESTATIONAL SAC: Present and normal appearing. YOLK SAC: Present and normal appearing. POLE: Present and normal appearing. CARDIAC: Present. UTERUS: Normal size and appearance. OVARIES: Right: Normal. Left: Normal. CERVIX: 3.7 cm in length and closed. CUL-DE-SAC: Normal. OTHER: None. AGE BY LMP: Unknown LMP LILIAN BY LMP: AGE BY US CRL: 9 weeks 0 days LILIAN BY US CRL: 11/03/2023 US/US OB transvaginal IMPRESSION: 1. Single live intrauterine 9 weeks 0 days by today's ultrasound. Electronically authenticated by: PAM SALAZAR Date: 04/01/2023 00:26
--- OUTSIDE RECORDS SUMMARY | 2023-03-31 10:20 | XMS_ITS | CCD ---
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 for nucleated erythrocytes in Blood by Automated counOrdered By: Jacky Alarcon on 03-10-2023 WBC corrected for nucl RBC Auto (Bld) [#/Vol] 16.0 10*3/uL 3.8-11.6 [facility] Lipaseon 03-10-2023 Lipase [Catalytic activity/Vol] 35.0 U/L Normal 11.0-82.0 [facility] Comment on above: Result Comment: PERF ORMED BY: [place] [address] PATHOLOGIST LOOM STARTER ANDRÉS MACEDO M.D. Performed By: #### L IPASE, HCGQNT, HEPATIC, BMP, CBC #### [facility] [address] Lipase [Enzymatic activity/v olume] in Serum or PlasmaOrdered By: Jacky Alarcon on 03-10-2023 Lipase [Catalytic activity/Vol] 35.0 U/L 11.0-82.0 [facility] Lymphocytes Auto (Bld) [#/Vo l]Ordered By: Jacky Alarcon on 03-10-2023 Lymphocytes (Bld) [#/Vol] 1.9 10*3/uL 1.00-4.8 [facility] Lymphocytes/100 WBC Auto (Bl d)Ordered By: Jacky Alarcon on 03-10-2023 Lymphocytes/100 WBC (Bld) 11.6 % . [facility] MCH Auto (RBC) [Entitic mass ]Ordered By: Jacky Alarcon on 03-10-2023 MCH (RBC) [Entitic mass] 30.8 pg 24.7-34.3 [facility] MCHC Auto (RBC) [Mass/Vol]Or dered By: Jacky Alarcon on 03-10-2023 MCHC (RBC) [Mass/Vol] 35.0 g/dL 32.0-35.0 [facility] MCV Auto (RBC) [Entitic vol] Ordered By: Jacky Alarcon on 03-10-2023 MCV (RBC) [Entitic vol] 87.8 fL 80-100 [facility] Monocyte distribution width [Entitic volume] in Blood by AutomatedOrdered By: Jacky Alarcon on 03-10-2023 Monocyte distribution width Auto (Bld) [Entitic vol] 16.05 % 0.00-20.00 [facility] Monocytes Auto (Bld) [#/Vol] Ordered By: Jacky Alarcon on 03-10-2023 Monocytes (Bld) [#/Vol] 1.4 10*3/uL 0.0-0.8 [facility] Monocytes/100 WBC Auto (Bld) Ordered By: Jacky Alarcon on 03-10-2023 Monocytes/100 WBC (Bld) 8.8 % . [facility] Neutrophils Auto (Bld) [#/Vo l]Ordered By: Jacky Alarcon on 03-10-2023 Neutrophils (Bld) [#/Vol] 12.6 10*3/uL 1.8-7.7 [facility] Neutrophils/100 WBC Auto (Bl d)Ordered By: Jacky Alarcon on 03-10-2023 Neutrophils/100 WBC (Bld) 78.7 % . [facility] Nitrite Test strip Ql (U)Ord ered By: Jacky Alarcon on 03-10-2023 Nitrite Ql (U) Negative Negative [facility] No Panel InformationOrdered By: Jacky Alarcon on 03-10-2023 Estimated GFR (CKD-EPI) > 60.0 mL/Min [facility] Creatinine Clearance (Chem 148.58 [facility] Nucleated erythrocytes [Pres ence] in Blood by Automated countOrdered By: Jacky Alarcon on 03-10-2023 Nucleated RBC Auto Ql (Bld) 0.1 /100{WBC} 0-0.5 [facility] Platelet mean volume Auto (B ld) [Entitic vol]Ordered By: Jacky Alarcon on 03-10-2023 Platelet mean volume (Bld) [Entitic vol] 9.7 fL 6.3-10.7 [facility] Platelets Auto (Bld) [#/Vol] Ordered By: Jacky Alarcon on 03-10-2023 Platelets (Bld) [#/Vol] 263 10*3/uL 150-450 [facility] Potassium [Moles/volume] in Serum or PlasmaOrdered By: Jacky Alarcon on 03-10-2023 Potassium [Moles/Vol] 3.3 mmol/L 3.5-5.1 [facility] Protein Auto test strip (U) [Mass/Vol]Ordered By: Jacky Alarcon on 03-10-2023 Protein (U) [Mass/Vol] 100 mg/dL Negative [facility] Protein [Mass/volume] in Ser um or PlasmaOrdered By: Jacky Alarcon on 03-10-2023 Protein [Mass/Vol] 8.0 g/dL 6.4-8.9 [facility] RBC Auto (Bld) [#/Vol]Ordere d By: Jacky Alarcon on 03-10-2023 RBC (Bld) [#/Vol] 5.37 10*6/uL 3.60-5.00 [facility] Serum or plasma albumin/glob ulin mass ratioOrdered By: Jacky Alarcon on 03-10-2023 Albumin/Globulin [Mass ratio] 1.3 {ratio} [facility] Serum or plasma anion gap de terminationOrdered By: Jacky Alarcon on 03-10-2023 Anion gap [Moles/Vol] 16.5 mmol/L 6.0-15.0 [facility] Serum or plasma non-glucuron idated bilirubin measurement (mass/volume)Ordered By: Jacky Alarcon on 03-10-2023 Bilirubin.indirect [Mass/Vol] 0.8 mg/dL [facility] Sodium [Moles/volume] in Ser um or PlasmaOrdered By: Jcaky Alarcon on 03-10-2023 Sodium [Moles/Vol] 133 mmol/L 136-145 [facility] Specific gravity Auto test s trip (U) [Rel density]Ordered By: Jacky Alarcon on 03-10-2023 Specific gravity (U) [Rel density] 1.029 1.001-1.03 0 [facility] Squamous epithelial cells de tection in urine sediment by light microscopyOrdered By: Jacky Alarcon on 03-10-2023 Epithelial cells.squamous LM Ql (Urine sed) 1-2 [HPF] 0-2 [facility] Urea nitrogen [Mass/volume] in Serum or PlasmaOrdered By: Jacky Alarcon on 03-10-2023 Urea nitrogen [Mass/Vol] 6 mg/dL 7-25 [facility] Urine Cultureon 03-10-2023 Bacteria identified Cx Nom (U) >100,000 colonies/ml mixed bacterial skin contaminants 2 Days PERFORMED BY: [place] [address] PATHOLOGIST LOOM STARTER ANDRÉS MACEDO M.D. [facility] Comment on above: Performed By: #### A DDONUAPLUS, CUU #### [address] Urine bacteria detection by automated methodOrdered By: Jacky Alarcon on 03-10-2023 Bacteria Auto Ql (U) Rare None Seen [facility] Urine clarity by refractomet ry automatedOrdered By: Jacky Alarcon on 03-10-2023 Clarity Refractometry automated (U) Turbid Clear [facility] Urine glucose measurement by automated test strip (mass/volume)Ordered By: Jacky Alarcon on 03-10-2023 Glucose Auto test strip (U) [Mass/Vol] Normal mg/dL Normal [facility] Urine hemoglobin detection b y automated test stripOrdered By: Jacky Alarcon on 03-10-2023 Hemoglobin Auto test strip Ql (U) 3+ Negative [facility] Urine leukocyte esterase det ection by automated test stripOrdered By: Jacky Alarcon on 03-10-2023 Leukocyte esterase Auto test strip Ql (U) 1+ Negative [facility] Urine sediment crystal ident ification by light microscopyOrdered By: Jacky Alarcon on 03-10-2023 Crystals LM Nom (Urine sed) See comment [facility] Comment on above: sulfa crystals Urobilinogen Auto test strip (U) [Mass/Vol]Ordered By: Jacky Alarcon on 03-10-2023 Urobilinogen (U) [Mass/Vol] Normal mg/dL Normal [facility] WBC Auto (Bld) [#/Vol]Ordere d By: Jacky Alarcon on 03-10-2023 WBC (Bld) [#/Vol] 16.0 10*3/uL 3.8-11.6 [facility] pH Auto test strip (U)Ordere d By: Jacky Alarcon on 03-10-2023 pH (U) 6.5 [pH] 5.0-9.0 [facility] CBC AUTO DIFFon 07-30-2022 BASO # 0.1 103/ul Normal 0.0-0.1 [facility] Comment on above: Performed By: #### G TT3P #### [facility] [address] [place] [address] Dr. Jackelyn Celestin Basophils/100 WBC (Bld) 0.6 % Normal 0.2-2.0 [facility] Comment on above: Performed By: #### G TT3P #### [facility] [address] [place] [address] Dr. Jackelyn Celestin EO # 0.2 103/ul Normal 0.0-0.7 [facility] Comment on above: Performed By: #### G TT3P #### [facility] [address] [place] [address] Dr. Jackelyn Celestin Eosinophils/100 WBC (Bld) 1.5 % Normal 0.9-7.0 [facility] Comment on above: Performed By: #### G TT3P #### [facility] [address] [place] [address] Dr. Jackelyn Celestin Erythrocyte distribution width (RBC) [Ratio] 14.5 % Normal 11.0-15.0 [facility] Comment on above: Performed By: #### G TT3P #### [facility] [address] [place] [address] Dr. Jackelyn Celestin Hematocrit (Bld) [Volume fraction] 33.9 % Critically low 36.0-48.0 [facility] Comment on above: Performed By: #### G TT3P #### [facility] [address] [place] [address] Dr. Jackelyn Celestin Hemoglobin (Bld) [Mass/Vol] 11.0 g/dL Critically low 12.0-16.0 [facility] Comment on above: Performed By: #### G TT3P #### [facility] [address] [place] [address] Dr. Jackelyn Celestin IG # 0.13 10e3/ul Critically high 0.00-0.03 [facility] Comment on above: Performed By: #### G TT3P #### [facility] [address] [place] [address] Dr. Jackelyn Celestin IG % 1.1 % Critically high 0.0-0.5 [facility] Comment on above: Performed By: #### G TT3P #### [facility] [address] [place] [address] Dr. Jackelyn Celestin LYMPH # 2.2 103/ul Normal 1.2-3.8 [facility] Comment on above: Performed By: #### G TT3P #### [facility] [address] [place] [address] Dr. Jackelyn Celestin Lymphocytes/100 WBC (Bld) 17.9 % Critically low 20.5-60.0 [facility] Comment on above: Performed By: #### G TT3P #### [facility] [address] [place] [address] Dr. Jackelyn Celestin MANUAL DIFF REQ NO Normal [facility] Comment on above: Performed By: #### G TT3P #### [facility] [address] [place] [address] Dr. Jackelyn Celestin MCH (RBC) [Entitic mass] 28.6 pg Normal 26.7-34.0 [facility] Comment on above: Performed By: #### G TT3P #### [facility] [address] [place] [address] Dr. Jackelyn Celestin MCHC (RBC) [Mass/Vol] 32.4 g/dL Normal 29.9-35.2 [facility] Comment on above: Performed By: #### G TT3P #### [facility] [address] [place] [address] Dr. Jackelyn Celestin MCV (RBC) [Entitic vol] 88.1 fL Normal 81.0-99.0 [facility] Comment on above: Performed By: #### G TT3P #### [facility] [address] [place] [address] Dr. Jackelyn Celestin MONO # 0.8 103/ul Normal 0.3-0.8 [facility] Comment on above: Performed By: #### G TT3P #### [facility] [address] [place] [address] Dr. Jackelyn Celestin Monocytes/100 WBC (Bld) 6.9 % Normal 1.7-12.0 [facility] Comment on above: Performed By: #### G TT3P #### [facility] [address] [place] [address] Dr. Jackelyn Celestin NEUT # 8.7 103/ul Critically high 1.4-6.5 [facility] Comment on above: Performed By: #### G TT3P #### [facility] [address] [place] [address] Dr. Jackelyn Celestin Neutrophils/100 WBC (Bld) 72.0 % Normal 43.0-75.0 [facility] Comment on above: Performed By: #### G TT3P #### [facility] [address] [place] [address] Dr. Jackelyn Celestin Platelet mean volume (Bld) [Entitic vol] 11.5 fL Normal 9.5-13.5 [facility] Comment on above: Performed By: #### G TT3P #### [facility] [address] [place] [address] Dr. Jackelyn Celestin PLT 146 103/ul Critically low 150-450 [facility] Comment on above: Performed By: #### G TT3P #### [facility] [address] [place] [address] Dr. Jackelyn Celestin RBC 3.85 106/ul Critically low 4.20-5.40 [facility] Comment on above: Performed By: #### G TT3P #### [facility] [address] [place] [address] Dr. Jackelyn Celestin WBC 12.1 103/ul Critically high 4.0-11.0 [facility] Comment on above: Performed By: #### G TT3P #### [facility] [address] [place] [address] Dr. Jackelyn Celestin CBC AUTO DIFFon 07-29-2022 BASO # 0.0 103/ul Normal 0.0-0.1 [facility] Comment on above: Performed By: #### 4 [id number] #### [facility] [address] [place] [address] Dr. Jackelyn Celestin Basophils/100 WBC (Bld) 0.4 % Normal 0.2-2.0 [facility] Comment on above: Performed By: #### [id number] #### [facility] [address] [place] [address] Dr. Jackelyn Celestin EO # 0.2 103/ul Normal 0.0-0.7 [facility] Comment on above: Performed By: #### 4 [id number] #### [facility] [address] [place] [address] Dr. Jackelyn Celestin Eosinophils/100 WBC (Bld) 1.4 % Normal 0.9-7.0 [facility] Comment on above: Performed By: #### 4 [id number] #### [facility] [address] [place] [address] Dr. Jackelyn Celestin Erythrocyte distribution width (RBC) [Ratio] 14.1 % Normal 11.0-15.0 [facility] Comment on above: Performed By: #### 4 [id number] #### [facility] [address] [place] [address] Dr. Jackelyn Celestin Hematocrit (Bld) [Volume fraction] 36.0 % Normal 36.0-48.0 [facility] Comment on above: Performed By: #### 4 [id number] #### [facility] [address] [place], [place] [id number] Dr. Jackelyn Celestin Hemoglobin (Bld) [Mass/Vol] 12.2 g/dL Normal 12.0-16.0 [facility] Comment on above: Performed By: #### [id number] #### [facility] [address] [place] [address] Dr. Jackelyn Celestin IG # 0.10 10e3/ul Critically high 0.00-0.03 [facility] Comment on above: Performed By: #### 4 [id number] #### [facility] [address] [place] [address] Dr. Jackelyn Celestin IG % 0.9 % Critically high 0.0-0.5 [facility] Comment on above: Performed By: #### [id number] #### [facility] [address] [place] [address] Dr. Jackelyn Celestin LYMPH # 1.9 103/ul Normal 1.2-3.8 [facility] Comment on above: Performed By: #### 4 [id number] #### [facility] [address] [place] [address] Dr. Jackelyn Celestin Lymphocytes/100 WBC (Bld) 17.7 % Critically low 20.5-60.0 [facility] Comment on above: Performed By: #### [id number] #### [facility] [address] [place] [address] Dr. Jackelyn Celestin MANUAL DIFF REQ NO Normal [facility] Comment on above: Performed By: #### [id number] #### [facility] [address] [place] [address] Dr. Jackelyn Celestin MCH (RBC) [Entitic mass] 28.8 pg Normal 26.7-34.0 [facility] Comment on above: Performed By: #### [id number] #### [facility] [address] [place] [address] Dr. Jackelyn Celestin MCHC (RBC) [Mass/Vol] 33.9 g/dL Normal 29.9-35.2 [facility] Comment on above: Performed By: #### [id number] #### [facility] [address] [place] [address] Dr. Jackelyn Celestin MCV (RBC) [Entitic vol] 84.9 fL Normal 81.0-99.0 [facility] Comment on above: Performed By: #### [id number] #### [facility] [address] [place] [address] Dr. Jackelyn Celestin MONO # 0.9 103/ul Critically high 0.3-0.8 [facility] Comment on above: Performed By: #### 4 [id number] #### [facility] [address] [place] [address] Dr. Jackelyn Celestin Monocytes/100 WBC (Bld) 8.4 % Normal 1.7-12.0 [facility] Comment on above: Performed By: #### 4 [id number] #### [facility] [address] [place] [address] Dr. Jackelyn Celestin NEUT # 7.7 103/ul Critically high 1.4-6.5 [facility] Comment on above: Performed By: #### 4 [id number] #### [facility] [address] [place] [address] Dr. Jackelyn Celestin Neutrophils/100 WBC (Bld) 71.2 % Normal 43.0-75.0 [facility] Comment on above: Performed By: #### [id number] #### [facility] [address] [place] [address] Dr. Jackelyn Celestin Platelet mean volume (Bld) [Entitic vol] 10.9 fL Normal 9.5-13.5 [facility] Comment on above: Performed By: #### [id number] #### [facility] [address] [place] [address] Dr. Jackelyn Celestin PLT 170 103/ul Normal 150-450 [facility] Comment on above: Performed By: #### 4 [id number] #### [facility] [address] [place] [address] Dr. Jackelyn Celestin RBC 4.24 106/ul Normal 4.20-5.40 [facility] Comment on above: Performed By: #### [id number] #### [facility] [address] [place] [address] Dr. Jackelyn Celestin WBC 10.8 103/ul Normal 4.0-11.0 [facility] Comment on above: Performed By: #### [id number] #### [facility] [address] [place] [address] Dr. Jackelyn Celestin DRUG SCREEN RAPID (URINE)on 07-29-2022 AMP Negative Normal NEGATIVE [facility] Comment on above: Performed By: #### 4 [id number] #### [facility] [address] [place] [address] Dr. Jackelyn Celestin BAR Negative Normal NEGATIVE [facility] Comment on above: Performed By: #### 4 [id number] #### [facility] [address] [place] [address] Dr. Jackelyn Celestin BUP Negative Normal NEGATIVE [facility] Comment on above: Performed By: #### [id number] #### [facility] [address] [place] [address] Dr. Jackelyn Celestin BZO Negative Normal NEGATIVE [facility] Comment on above: Performed By: #### [id number] #### [facility] [address] [place] [address] Dr. Jackelyn Celestin HOMERO Negative Normal NEGATIVE [facility] Comment on above: Performed By: #### 4 [id number] #### [facility] [address] [place] [address] Dr. Jackelyn Celestin CUT-OFFS SEE BELOW Normal [facility] Comment on above: Result Comment: AMP (Amphetamine): 500ng/mL, BAR (Barbituates): 200 ng/mL, BZO (Benzodiazepines): 150 ng/mL, BUP (Buprenorphine): 10 ng/mL, HOMERO (Cocaine): 150 ng/mL, mAMP (Methamphetamine): 500 ng/mL, MTD (Methadone): 200 ng/mL, OPI (Opiates): 100 ng/mL, OXY (Oxycodone): 100 ng/mL, PCP (Phencyclidine): 25 ng/mL, PPX (Propoxyphene): 300 ng/mL, THC (Cannabinoids): 50 ng/mL, TCA (Trycyclic Antidepressants): 300 ng/mL Performed By: #### [id number] #### [facility] [address] [place] [address] Dr. Jackelyn Celestin DRUG CUT HEADER DRUG CLASS TEST SYST EM CUT-OFF CONCENTRATIONS ARE FOLLOWS: Normal [facility] Comment on above: Performed By: #### [id number] #### [facility] [address] [place] [address] Dr. Jackelyn Celestin mAMP Negative Normal NEGATIVE [facility] Comment on above: Performed By: #### [id number] #### [facility] [address] [place] [address] Dr. Jackelyn Celestin MTD Negative Normal NEGATIVE [facility] Comment on above: Performed By: #### [id number] #### [facility] [address] [place] [address] Dr. Jackelyn Celestin OPI Negative Normal NEGATIVE [facility] Comment on above: Performed By: #### [id number] #### [facility] [address] [place] [address] Dr. Jackelyn Celestin OXY Negative Normal NEGATIVE [facility] Comment on above: Performed By: #### [id number] #### [facility] [address] [place] [address] Dr. Jackelyn Celestin PCP Negative Normal NEGATIVE [facility] Comment on above: Performed By: #### [id number] #### [facility] [address] [place] [address] Dr. Jackelyn Celestin PPX Negative Normal NEGATIVE [facility] Comment on above: Performed By: #### [id number] #### [facility] [address] [place] [address] Dr. Jackelyn Celestin TCA Negative Normal NEGATIVE [facility] Comment on above: Performed By: #### [id number] #### [facility] [address] [place] [address] Dr. Jackelyn Celestin THC Negative Normal NEGATIVE [facility] Comment on above: Performed By: #### [id number] #### [facility] [address] [place] [address] Dr. Jackelyn Celestin TYPE AND SCREENon 07-29-2022 TYPE AND SCREEN Negative Normal [facility] Comment on above: Performed By: #### G TT3P #### [facility] [address] [place] [address] Dr. Jackelyn Celestin PREG GROWTHon 07-25-2022 US PREG GROWTH EXAMINATION: US PREG GROWTH HISTORY: Excessive growth affecting management of mother COMPARISON: Ultrasound growth 06/06/2022 FINDINGS: Heart Rate: 148.0 bpm Number: 1.0 Position: CEPHALIC Amniotic Fluid Volume: 13.2 cm Maximum Vertical Pocket: 5.1 cm BIOMETRY: BPD: 9.0 cm cm; 36 weeks 3 days; 34% HC: 33.3 cmcm; 38 weeks 0 days; 33% AC: 36.4 cm cm; 40 weeks 2 days; > 97% FL: 7.2 cm cm; 36 weeks 6 days; 27% EFW: 3609.4 grams; 84% FL/AC: 19.8 FL/BPD: 79.9 HC/AC: 0.9 GESTATIONAL AGE: Age by EDC: 37 weeks 6 days LILIAN by EDC: 07/28/2022 Age by US: 37 weeks 6 days LILIAN by US: 08/05/2022 IMPRESSION: 1. Single live intrauterine with growth detailed above. 2. Abdominal circumference is greater than 97th percentile. Electronically authenticated by: TRISTAN HART Date: 2022-07-24 22:37 Normal [facility] GROUP B STREP CULTUREon 06-09 S. agalactiae Ag Ql (Unsp spec) Culture Observations: NEGATIVE FOR GROUP B STREPTOCOCCUS. Normal [facility] Comment on above: Performed By: #### G TT3P #### [facility] [address] [place], [place] [id number] Dr. Jackelyn Celestin PREG GROWTHon 06-06-2022 US PREG GROWTH EXAMINATION: US PREG GROWTH HISTORY: Excessive growth affecting management of mother COMPARISON: Ultrasound anatomy 03/17/2022 FINDINGS: Heart Rate: 141.0 bpm Number: 1.0 Position: CEPHALIC Amniotic Fluid Volume: 17.9 cm Maximum Vertical Pocket: 7.7 cm BIOMETRY: BPD: 8.0 cm cm; 32 weeks 0 days HC: 29.0 cmcm; 31 weeks 6 days AC: 29.1 cm cm; 33 weeks 0 days FL: 6.3 cm cm; 32 weeks 5 days EFW: 2036.9 grams; 81% FL/AC: 21.8 FL/BPD: 79.3 HC/AC: 1.0 GESTATIONAL AGE: Age by EDC: 31 weeks 3 days LILIAN by EDC: 07/28/2022 Age by US: 32 weeks 3 days LILIAN by US: 07/29/2022 IMPRESSION: 1. Single live intrauterine with growth detailed above. Electronically authenticated by: TRISTAN HART Date: 2022-06-06 15:39 Normal [facility] GTT 3 HR PREGon 05-21-2022 Glucose [Mass/Vol] 91 mg/dL Normal 74-106 [facility] Comment on above: Performed By: #### G TT3P #### [facility] [address] [place] [address] Dr. Jackelyn Celestin Glucose [Mass/Vol] 168 mg/dL Normal [facility] Comment on above: Performed By: #### G TT3P #### [facility] [address] [place] [address] Dr. Jackelyn Celestin Glucose [Mass/Vol] 121 mg/dL Normal [facility] Comment on above: Performed By: #### G TT3P #### [facility] [address] [place] [address] Dr. Jackelyn Celestin Glucose [Mass/Vol] 86 mg/dL Normal [facility] Comment on above: Performed By: #### G TT3P #### [facility] [address] [place] [address] Dr. Jackelyn Celestin PAP ACOG PANEL 2: 21 to 29on 05-17-2022 . . Normal [facility] Comment on above: Performed By: #### [id number] #### [facility] [address] [place] [address] Dr. Jackelyn Celestin DIAGNOSIS: Comment [facility] Comment on above: Result Comment: NEGA TIVE FOR INTRAEPITHELIAL LESION OR MALIGNANCY. Performed By: #### [id number] #### [facility] [address] [place] [address] Dr. Jackelyn Celestin Methodology: Comment Normal [facility] Comment on above: Result Comment: This liquid based ThinPrep(R) pap test was screened with the use of an image guided system. Performed By: #### [id number] #### [facility] [address] [place] [address] Dr. Jackelyn Celestin Note: Comment Normal [facility] Comment on above: Result Comment: The Pap smear is a screening test designed to aid in the detection of premalignant and malignant conditions of the uterine cervix. It is not a diagnostic procedure and should not be used as the sole means of detecting cervical cancer. Both false-positive and false-negative reports do occur. . Performed By: #### [id number] #### [facility] [address] [place] [address] Dr. Jackelyn Celestin Performed by: Comment Normal [facility] Comment on above: Result Comment: Alphonso Walker, Video Producer (ASCP) Performed By: #### [id number] #### [facility] [address] [place] [address] Dr. Jackelyn Celestin Reflex Criteria: Comment Normal [facility] Comment on above: Result Comment: The HPV DNA reflex criteria were not met with this specimen result therefore, no HPV testing was performed. . Performed By: #### 4 [id number] #### [facility] [address] [place] [address] Dr. Jackelyn Celestin Specimen adequacy: Comment Normal [facility] Comment on above: Result Comment: Sati sfactory for evaluation. No endocervical component is identified. Performed By: #### [id number] #### [facility] [address] [place] [address] Dr. Jackelyn Celestin Age Gdln ACOG Testing 21-29 [facility] Comment on above: Performed By: #### 4 [id number] #### [facility] [address] [place] [address] Dr. Jackelyn Celestin CHLAMYDIA/GONOCOCCUS ALONDRA (SW AB/URINE/PAPon 05-14-2022 Chlamydia trachomatis, ALONDRA Negative Normal Negative [facility] Comment on above: Performed By: #### G TT3P #### [facility] [address] [place] [address] Dr. Jcakelyn Celestin Neisseria gonorrhoeae, ALONDRA Negative Normal Negative [facility] Comment on above: Performed By: #### G TT3P #### [facility] [address] [place] [address] Dr. Jackelyn Celestin VAGINITIS/VAGINOSIS DNA PROB Dean 05-13-2022 Thao species Negative Normal Negative [facility] Comment on above: Performed By: #### [id number] #### [facility] [address] [place] [address] Dr. Jackelyn Celestin Gardnerella vaginalis Negative Normal Negative [facility] Comment on above: Performed By: #### 4 [id number] #### [facility] [address] [place] [address] Dr. Jackelyn Celestin Trichomonas vaginalis Negative Normal Negative [facility] Comment on above: Performed By: #### [id number] #### [facility] [address] [place] [address] Dr. Jackelyn Celestin CBC AUTO DIFFon 05-09-2022 BASO # 0.0 103/ul Normal 0.0-0.1 [facility] Comment on above: Performed By: #### C BC #### [facility] [address] [place] [address] Dr. Jackelyn Celestin Basophils/100 WBC (Bld) 0.3 % Normal 0.2-2.0 [facility] Comment on above: Performed By: #### C BC #### [facility] [address] [place] [address] Dr. Jackelyn Celestin EO # 0.1 103/ul Normal 0.0-0.7 [facility] Comment on above: Performed By: #### C BC #### [facility] [address] [place] [address] Dr. Jackelyn Celestin Eosinophils/100 WBC (Bld) 1.2 % Normal 0.9-7.0 [facility] Comment on above: Performed By: #### C BC #### [facility] [address] [place] [address] Dr. Jackelyn Celestin Erythrocyte distribution width (RBC) [Ratio] 11.9 % Normal 11.0-15.0 [facility] Comment on above: Performed By: #### C BC #### [facility] [address] [place] [address] Dr. Jackelyn Celestin Hematocrit (Bld) [Volume fraction] 33.7 % Critically low 36.0-48.0 [facility] Comment on above: Performed By: #### C BC #### [facility] [address] [place] [address] Dr. Jackelyn Celestin Hemoglobin (Bld) [Mass/Vol] 12.0 g/dL Normal 12.0-16.0 [facility] Comment on above: Performed By: #### C BC #### [facility] [address] [place] [address] Dr. Jackelyn Celestin IG # 0.07 10e3/ul Critically high 0.00-0.03 [facility] Comment on above: Performed By: #### C BC #### [facility] [address] [place] [address] Dr. Jackelyn Celestin IG % 0.6 % Critically high 0.0-0.5 [facility] Comment on above: Performed By: #### C BC #### [facility] [address] [place] [address] Dr. Jackelyn Celestin LYMPH # 1.3 103/ul Normal 1.2-3.8 [facility] Comment on above: Performed By: #### C BC #### [facility] [address] [place] [address] Dr. Jackelyn Celestin Lymphocytes/100 WBC (Bld) 11.5 % Critically low 20.5-60.0 [facility] Comment on above: Performed By: #### C BC #### [facility] [address] [place] [address] Dr. Jackelyn Celestin MANUAL DIFF REQ NO Normal [facility] Comment on above: Performed By: #### C BC #### [facility] [address] [place] [address] Dr. Jackelyn Celestin MCH (RBC) [Entitic mass] 31.0 pg Normal 26.7-34.0 [facility] Comment on above: Performed By: #### C BC #### [facility] [address] [address] [address] Jackelyn Celestin MCHC (RBC) [Mass/Vol] 35.6 g/dL Critically high 29.9-35.2 [facility] Comment on above: Performed By: #### C BC #### [facility] [address] [place] [address] Dr. Jackelyn Celestin MCV (RBC) [Entitic vol] 87.1 fL Normal 81.0-99.0 [facility] Comment on above: Performed By: #### C BC #### [facility] [address] [place] [address] Dr. Jackelyn Celestin MONO # 0.5 103/ul Normal 0.3-0.8 [facility] Comment on above: Performed By: #### C BC #### [facility] [address] [place] [address] Dr. Jackelyn Celestin Monocytes/100 WBC (Bld) 4.8 % Normal 1.7-12.0 [facility] Comment on above: Performed By: #### C BC #### [facility] [address] [place] [address] Dr. Jackelyn Celestin NEUT # 8.9 103/ul Critically high 1.4-6.5 [facility] Comment on above: Performed By: #### C BC #### [facility] [address] [place] [address] Dr. Jackelyn Celestin Neutrophils/100 WBC (Bld) 81.6 % Critically high 43.0-75.0 [facility] Comment on above: Performed By: #### C BC #### [facility] [address] [place] [address] Dr. Jackelyn Celestin Platelet mean volume (Bld) [Entitic vol] 11.3 fL Normal 9.5-13.5 [facility] Comment on above: Performed By: #### C BC #### [facility] [address] [place] [address] Dr. Jackelyn Celestin PLT 171 103/ul Normal 150-450 [facility] Comment on above: Performed By: #### C BC #### [facility] [address] [address] [address] Jackelyn Celestin RBC 3.87 106/ul Critically low 4.20-5.40 [facility] Comment on above: Performed By: #### C BC #### [facility] [address] [address] [address] Jackelyn Celestin WBC 10.9 103/ul Normal 4.0-11.0 [facility] Comment on above: Performed By: #### C BC #### [facility] [address] [address] [address] Jackelyn Celestin GLUCOSE - 1HRon 05-09-2022 Glucose [Mass/Vol] 142 mg/dL Critically high 74-106 [facility] Comment on above: Performed By: #### [id number] #### [facility] [address] [place] [address] Dr. Jackelyn Celestin US PREG BIOPHY W NON STRESSo n 05-09-2022 US PREG BIOPHY W NON STRESS EXAMINATION: US PREG BIOPHY W NON STRESS HISTORY: Falls COMPARISON: No relevant comparison available. TECHNIQUE: Ultrasound biophysical profile was performed. FINDINGS: BREATHING MOVEMENTS: 2.0 GROSS BODY MOVEMENTS: 2.0 TONE: 2.0 QUALITATIVE AMNIOTIC FLUID VOLUME: 2.0 PRESENTATION: Cephalic HEART RATE: 155.2 bpm bpm. AMNIOTIC FLUID VOLUME: 18.1 cm GESTATIONAL AGE: 27 weeks 3 days CONCLUSION: Total biophysical profile score 8.0. Electronically authenticated by: TRISTAN HART Date: 2022-05-09 10:35 Normal [facility] US PREG PLACENTAon US PREG PLACENTA EXAMINATION: US PREG PLACENTA HISTORY: Falls ; mild cramping after falling COMPARISON: Ultrasound anatomy 03/17/2022 FINDINGS: PLACENTA: Posterior without previa, subchorionic hematoma, or abruption. CERVIX LENGTH: Not evaluated. HEART RATE: 158 bpm OTHER: None. IMPRESSION: 1. Unremarkable posterior placenta. No suspicious findings. Electronically authenticated by: TRISTAN HART Date: 2022-05-09 10:29 Normal [facility] US PREG ANATOMY SINGLEon US PREG ANATOMY SINGLE EXAMINATION: US P REG ANATOMY SINGLE HISTORY: Routine care COMPARISON: No relevant comparison available. TECHNIQUE: Transabdominal sonographic examination was performed for obstetrical and evaluation. FINDINGS: Number: 1 Heart Rate: 155.0 bpm H.B. /min Amniotic Fluid Volume: Subjectively normal. Placental Location: POSTERIOR with lower margin 4.1 cm from os. Cervix Length: 7 cm , closed. ANATOMY: Normal Structures -cerebellum, choroid plexus, cisterna magna, lateral cerebral ventricles, orbits, midline falx, hard palate, four-chamber heart, RVOT, LVOT, stomach, kidneys, bladder, umbilical cord insertion into abdomen, three-vessel cord, cervical spine, thoracic spine, lumbar spine, sacral spine, right upper extremity, left upper extremity, right lower extremity, left lower extremity. SUBOPTIMALLY SEEN: None ABNORMALITIES: None BIOMETRY: BPD: 4.5 cm 19 weeks 5 days HC: 17.2 cm 19 weeks 6 days AC: 15.4 cm 20 weeks 4 days FL: 3.2 cm 19 weeks 6 days EFW:338.4 grams; 66% FL/AC: 20.5 FL/BPD: 70.0 HC/AC: 1.1 GESTATIONAL AGE: Age by EDC: 19 weeks 6 days LILIAN by EDC: 07/28/2022 Age by current US: 20 weeks 0 days LILIAN by current US: 08/04/2022 IMPRESSION: 1. Single live intrauterine with growth detailed above. Electronically authenticated by: TRISTAN HART Date: 2022-03-17 16:29 Normal [facility] HEP B SURFACE ANTIGEN SCREEN on 02-15-2022 HBsAg Screen Negative Normal Negative [facility] Comment on above: Performed By: #### [id number] #### [facility] [address] [place] [address] Dr. Jackelyn Celestin HEPATITIS C VIRUS AB W/ REFL EX QUANTon 02-15-2022 HCV AB <0.1 Normal 0.0-0.9 [facility] Comment on above: Performed By: #### H CVPCRR #### [facility] [address] [place] [address] Dr. Jackelyn Celestin Interpretation: Comment Normal [facility] Comment on above: Result Comment: Nega tive Not infected with HCV, unless recent infection is suspected or other evidence exists to indicate HCV infection. Performed By: #### H CVPCRR #### [facility] [address] [place] [address] Dr. Jackelyn Celestin HIV 1 AND 2 WITH REFLEXon HIV Screen 4th Generation wRfx Non-Reactive Normal Non Reactive [facility] Comment on above: Result Comment: HIV Negative HIV-1/HIV-2 antibodies and HIV-1 p24 antigen were NOT detected. There is no laboratory evidence of HIV infection. Performed By: #### H IV12 #### [facility] [address] [place] [address] Dr. Jackelyn Celestin RPR QUANTon 02-15-2022 Rapid Plasma Reagin, Quant Non-Reactive Normal NonRea<1:1 [facility] Comment on above: Result Comment: Plea se Note: This test does not meet current guidelines for screening and diagnosis of syphilis. This test is intended for following treatment response in patients being treated for syphilis infection. To screen for syphilis infection, a reflex cascade that includes both RPR and a treponema-specific assay should be utilized, such as Treponema pallidum (Syphilis) Screening [place] (516444) or Rapid Plasma Reagin (RPR) Test With Reflex to Quantitative RPR and Confirmatory Treponema pallidum Antibodies (051475). Performed By: #### R PRQ #### [facility] [address] [place] [address] Dr. Jackelyn Celestin RUBELLA AB IGGon 02-15-2022 Rubella Antibodies, IgG 1.97 index Normal Immune >0.99 [facility] Comment on above: Result Comment: Non- immune <0.90 Equivocal 0.90 - 0.99 Immune >0.99 Performed By: #### R UBIGG #### [facility] [address] [place] [address] Dr. Jackelyn Celestin CBC AUTO DIFFon 02-12-2022 BASO # 0.0 103/ul Normal 0.0-0.1 [facility] Comment on above: Performed By: #### C BC #### [facility] [address] [place] [address] Dr. Jackelyn Celestin Basophils/100 WBC (Bld) 0.4 % Normal 0.2-2.0 [facility] Comment on above: Performed By: #### C BC #### [facility] [address] [place] [address] Dr. Jackelyn Celestin EO # 0.2 103/ul Normal 0.0-0.7 [facility] Comment on above: Performed By: #### C BC #### [facility] [address] [place] [address] Dr. Jackelyn Celestin Eosinophils/100 WBC (Bld) 2.0 % Normal 0.9-7.0 [facility] Comment on above: Performed By: #### C BC #### [facility] [address] [place] [address] Dr. Jackelyn Celestin Erythrocyte distribution width (RBC) [Ratio] 12.8 % Normal 11.0-15.0 [facility] Comment on above: Performed By: #### C BC #### [facility] [address] [place] [address] Dr. Jackelyn Celestin Hematocrit (Bld) [Volume fraction] 40.7 % Normal 36.0-48.0 [facility] Comment on above: Performed By: #### C BC #### [facility] [address] [place] [address] Dr. Jackelyn Celestin Hemoglobin (Bld) [Mass/Vol] 14.4 g/dL Normal 12.0-16.0 [facility] Comment on above: Performed By: #### C BC #### [facility] [address] [place] [address] Dr. Jackelyn Celestin IG # 0.05 10e3/ul Critically high 0.00-0.03 [facility] Comment on above: Performed By: #### C BC #### [facility] [address] [place] [address] Dr. Jackelyn Celestin IG % 0.4 % Normal 0.0-0.5 [facility] Comment on above: Performed By: #### C BC #### [facility] [address] [place] [address] Dr. Jackelyn Celestin LYMPH # 1.7 103/ul Normal 1.2-3.8 [facility] Comment on above: Performed By: #### C BC #### [facility] [address] [place] [address] Dr. Jackelyn Celestin Lymphocytes/100 WBC (Bld) 15.1 % Critically low 20.5-60.0 [facility] Comment on above: Performed By: #### C BC #### [facility] [address] [place] [address] Dr. Jackelyn Celestin MANUAL DIFF REQ NO Normal [facility] Comment on above: Performed By: #### C BC #### [facility] [address] [place] [address] Dr. Jackelyn Celestin MCH (RBC) [Entitic mass] 31.2 pg Normal 26.7-34.0 [facility] Comment on above: Performed By: #### C BC #### [facility] [address] [place] [address] Dr. Jackelyn Celestni MCHC (RBC) [Mass/Vol] 35.4 g/dL Critically high 29.9-35.2 [facility] Comment on above: Performed By: #### C BC #### [facility] [address] [place] [address] Dr. Jackelyn Celestin MCV (RBC) [Entitic vol] 88.1 fL Normal 81.0-99.0 [facility] Comment on above: Performed By: #### C BC #### [facility] [address] [place] [address] Dr. Jackelyn Celestin MONO # 0.4 103/ul Normal 0.3-0.8 [facility] Comment on above: Performed By: #### C BC #### [facility] [address] [place] [address] Dr. Jackelyn Celestin Monocytes/100 WBC (Bld) 3.3 % Normal 1.7-12.0 [facility] Comment on above: Performed By: #### C BC #### [facility] [address] [place] [address] Dr. Jackelyn Celestin NEUT # 8.8 103/ul Critically high 1.4-6.5 [facility] Comment on above: Performed By: #### C BC #### [facility] [address] [place] [address] Dr. Jackelyn Celestin Neutrophils/100 WBC (Bld) 78.8 % Critically high 43.0-75.0 [facility] Comment on above: Performed By: #### C BC #### [facility] [address] [place] [address] Dr. Jackelyn Celestin Platelet mean volume (Bld) [Entitic vol] 11.6 fL Normal 9.5-13.5 [facility] Comment on above: Performed By: #### C BC #### [facility] [address] [place] [address] Dr. Jackelyn Celestin PLT 203 103/ul Normal 150-450 [facility] Comment on above: Performed By: #### C BC #### [facility] [address] [place] [address] Dr. Jackelyn Celestin RBC 4.62 106/ul Normal 4.20-5.40 [facility] Comment on above: Performed By: #### C BC #### [facility] [address] [place] [address] Dr. Jackelyn Celestin WBC 11.2 103/ul Critically high 4.0-11.0 [facility] Comment on above: Performed By: #### C BC #### [facility] [address] [place] [address] Dr. Jackelyn Celestin CULTURE URINEon 02-12-2022 CULTURE URINE Culture Observations : NO GROWTH. Normal [facility] Comment on above: Performed By: #### U RCX #### [facility] [address] [place] [address] Dr. Jackelyn Celestin GLYCOHEMOGLOBIN A1Con 2021 ADA RECOMMENDATION SEE BELOW Normal [facility] Comment on above: Result Comment: ADA RECOMMENDED LIMIT 4.0 - 6.0 ADA THERAPEUTIC TARGET < 7.0 ACTION SUGGESTED > 7.0 Performed By: #### [id number] #### [facility] [address] [place] [address] Dr. Jackelyn Celestin Glucose [Mass/Vol] 94 mg/dL Normal [facility] Comment on above: Performed By: #### [id number] #### [facility] [address] [address] [address] Jackelyn Celestin HbA1c (Bld) [Mass fraction] 4.9 % Normal 4.5-6.2 [facility] Comment on above: Performed By: #### [id number] #### [facility] [address] [place] [address] Dr. Jackelyn Celestin TYPE AND SCREENon 02-12-2022 TYPE AND SCREEN Negative Normal [facility] Comment on above: Performed By: #### T NS #### [facility] [address] [place] [address] Dr. Jackelyn Celestin US PREG TVon 01-21-2022 US PREG TV EXAMINATION: US PREG TV HISTORY: Missed period COMPARISON: 03/23/2021 FINDINGS: Transvaginal images Ruff intrauterine gestation Gestational sac: 5.6 cm, 11 weeks 4 days CRL: 5.39 cm, 12 weeks 0 days Yolk sac: Not visualized Heart rate: 170 bpm Cervix: Closed, 4.6 cm The ovaries are normal in appearance Clinical age: 10 weeks 5 days Clinical LILIAN: 08/14/2022 Ultrasound age: 12 weeks 0 days Ultrasound LILIAN: 08/05/2022 IMPRESSION: Viable ruff intrauterine gestation measuring 12 weeks 0 days Electronically authenticated by: DONALD AGUILAR Date: 2022-01-21 16:41 Normal [facility] Coding Summary.on 12-12-2019 Coding Summary. CODING DATE: 020 FINAL [facility] STATUS: Home (Routine DC) PAYOR: Self Pay ADMIT DX: REASON FOR VISIT DX: R05 Cough FINAL DX: PRINCIPAL: R05 Cough SECONDARY: R09.81 Nasal congestion Z11.59 Encounter for screening for other viral diseases PYMT PROC APC STAT DESCRIPTION DOCTOR NAME DATE NOTE: The code number assigned matches the documented diagnosis and / or procedure in the patient's chart. However, the narrative phrase printed from the coding software may appear abbreviated, or result in slightly different terminology. Coded By: Tatiana Gurrola CphT Date Saved: 12/12/2019 10:59 am Normal [facility] Family Medicine Office/Clini c Noteon 11-21-2019 Family Medicine Office/Clinic Note Chief Complaint EST ear pain HPI Staff Pt presents today for Lt ear pain. Onset last night. Pt was tested for covid-19 11/16/2019 but test was negative. She has taken Tylenol with little relief. History of Present Illness Chief complaint: DARY POST is a 19 Years Female who presents for concerns of Left ear pain that has been present x days. Pt. was seen via video telehealth here at on 11/16/2019 for Complains of body aches, scratchy throat, mild cough, fever 103, pt. states did not have ear pain at this time. Pt. was tested for COVID-19 at that time and was negative. State body aches and fever have resolved at this time, pt. continued with all other symptoms. States ear pain was progressively getting worsen however felt relief from pressure last night with clear drainage from left canal. Pt. also states sinus congestion/headaches causing pain in upper jaw. Denies any SOB, chest pain, dizziness, or N/V/D. OTC medications used: Pt. has been using OTC Tylenol with minimal effectiveness at this time Review of Systems ROS - Provider Constitutional: fever no, chills no, sweats no, body aches no ENMT: ear pain yes left ear, ear drainage Yes , clear, sore throat yes, nasal congestion yes , nasal drainage yeshoarseness no Respiratory: chest discomfort no, shortness of breath no, cough no, wheezing no Gastrointestinal: nausea no, vomiting no, diarrhea no Neurologic: headache yes, dizziness no, weakness no Physical Exam Vitals & Measurements T: 36.7 ?C (Oral) HR: 93(Peripheral) RR: 18 BP: 116/82 SpO2: 96% HT: 159 cm HT: 159.0 cm WT: 96.0 kg WT: 96.0 kg BMI: 37.97 General: Well developed, well nourished, in no acute distress Ears: No deformity or lesion of external ear. Right canal and TM appear normal. There is small amount of dried drainage noted to exit of left ear canal. Left TM is erythemic and bulging. No obvious perforation can be seen at this time. Pt. hearing is grossly normal to conversational speech Nose: Audible congestion, moderate erythema & swollen nasal turbinates, clear rhinorrhea present. Mouth: Mucous membranes moist. Normal oropharynx, and posterior pharynx without lesions or exudates. Tongue normal Lungs: Normal respiratory effort and clear to auscultation Cardio: Regular rate and rhythm, normal S1 and S2, no murmur, no rub Mental Status: Alert and oriented x3. Normal mood and affect Assessment/Plan 1. Acute left otitis media (H66.92: Otitis media, unspecified, left ear) Examination today is consistent with Left acute otitis media, although no obvious perforation noted this is likely given drainage noted. Pt educated on the nature of illness, likely course of duration, and treatment plan. Take antibiotics as directed until gone. Do not stop taking if you feel better in a few days, as this contributes to antibiotic resistance. Instructed use of Tylenol/Motrin for fever and pain. Recommended placing cotton ball to ear when bathing for the next 7 days to prevent moisture from entering ear canal Increase rest and monitor fluid and nutritional intake during period of illness. Follow up with PCP in 4-5 days after starting ATB, or sooner if unable to control fevers or symptoms are worsening. 2. BMI 37.0-37.9, adult (Z68.37: Body mass index (BMI) 37.0-37.9, adult) Discussed health risks of obesity Encouraged healthy, balanced diet low in sugar, fat, carbs Encouraged exercise regimen Ordered: Body Mass Index (BMI) documented 3008F Orders: amoxicillin-clavulanate, = 1 tab(s), Oral, q12hr, X 10 day(s), # 20 tab(s), Refills(s) 0, Pharmacy: [facility], 159, cm, 11/21/19 19:13:00 EDT, Height/Length Dosing, 96, kg, 11/21/19 19:13:00 EDT, Weight Dosing Follow-up No qualifying data available Patient Education Body Mass Index, BMI DASH Diet MyPlate from [employer] Obesity Otitis Media, Adult Problem List/Past Medical History Ongoing Gall stones GERD (gastroesophageal reflux disease) Historical seasonal allergies Medications amoxicillin-clavulanate 875 mg-125 mg oral tablet, 1 tab(s), Oral, q12hr Allergies No Known Allergies Social History Alcohol - Denies Alcohol Use, 01/31/2011 Substance Abuse - Denies Substance Abuse, 01/31/2011 Tobacco - Denies Tobacco Use, 01/31/2011 Never (less than 100 in lifetime) Tobacco Use:. Never Smokeless Tobacco Use:., 11/21/2019 Never (less than 100 in lifetime) Tobacco Use:. Never Smokeless Tobacco Use:., 11/16/2019 Family History Breast cancer: Grandparent. Hypertension: Grandparent. Stroke: Grandparent. Normal [facility] Comment on above: Result Comment: Elec tronically Signed By: HIEN KIM, SUKHDEEP Reinoso\.br\Date and Time Signed: 11/21/19 20:02 EDT Patient Educationon 11-21-19 20 Patient Education Body Mass Index (BMI ) This BMI is not intended for use with those under 18 years of age, or women, or lactating women. To estimate BMI, locate your height, then find your weight in this listing. Your BMI is located to the right of your weight. Height: 58 inches ? Weight: 91 lb = BMI 19 (normal) ? Weight: 96 lb = BMI 20 (normal) ? Weight: 100 lb = BMI 21 (normal) ? Weight: 105 lb = BMI 22 (normal) ? Weight: 110 lb = BMI 23 (normal) ? Weight: 115 lb = BMI 24 (normal) ? Weight: 119 lb = BMI 25 (overweight) ? Weight: 124 lb = BMI 26 (overweight) ? Weight: 129 lb = BMI 27 (overweight) ? Weight: 134 lb = BMI 28 (overweight) ? Weight: 138 lb = BMI 29 (overweight) ? Weight: 143 lb = BMI 30 (obese) ? Weight: 148 lb = BMI 31 (obese) ? Weight: 153 lb = BMI 32 (obese) ? Weight: 158 lb = BMI 33 (obese) ? Weight: 162 lb = BMI 34 (obese) ? Weight: 167 lb = BMI 35 (obese) ? Weight: 172 lb = BMI 36 (obese) ? Weight: 177 lb = BMI 37 (obese) ? Weight: 181 lb = BMI 38 (obese) ? Weight: 186 lb = BMI 39 (obese) ? Weight: 191 lb = BMI 40 (extreme obesity) ? Weight: 196 lb = BMI 41 (extreme obesity) ? Weight: 201 lb = BMI 42 (extreme obesity) ? Weight: 205 lb = BMI 43 (extreme obesity) ? Weight: 210 lb = BMI 44 (extreme obesity) ? Weight: 215 lb = BMI 45 (extreme obesity) ? Weight: 220 lb = BMI 46 (extreme obesity) ? Weight: 224 lb = BMI 47 (extreme obesity) ? Weight: 229 lb = BMI 48 (extreme obesity) ? Weight: 234 lb = BMI 49 (extreme obesity) ? Weight: 239 lb = BMI 50 (extreme obesity) ? Weight: 244 lb = BMI 51 (extreme obesity) ? Weight: 248 lb = BMI 52 (extreme obesity) ? Weight: 253 lb = BMI 53 (extreme obesity) ? Weight: 258 lb = BMI 54 (extreme obesity) Height: 59 inches ? Weight: 94 lb = BMI 19 (normal) ? Weight: 99 lb = BMI 20 (normal) ? Weight: 104 lb = BMI 21 (normal) ? Weight: 109 lb = BMI 22 (normal) ? Weight: 114 lb = BMI 23 (normal) ? Weight: 119 lb = BMI 24 (normal) ? Weight: 124 lb = BMI 25 (overweight) ? Weight: 128 lb = BMI 26 (overweight) ? Weight: 133 lb = BMI 27 (overweight) ? Weight: 138 lb = BMI 28 (overweight) ? Weight: 143 lb = BMI 29 (overweight) ? Weight: 148 lb = BMI 30 (obese) ? Weight: 153 lb = BMI 31 (obese) ? Weight: 158 lb = BMI 32 (obese) ? Weight: 163 lb = BMI 33 (obese) ? Weight: 168 lb = BMI 34 (obese) ? Weight: 173 lb = BMI 35 (obese) ? Weight: 178 lb = BMI 36 (obese) ? Weight: 183 lb = BMI 37 (obese) ? Weight: 188 lb = BMI 38 (obese) ? Weight: 193 lb = BMI 39 (obese) ? Weight: 198 lb = BMI 40 (extreme obesity) ? Weight: 203 lb = BMI 41 (extreme obesity) ? Weight: 208 lb = BMI 42 (extreme obesity) ? Weight: 212 lb = BMI 43 (extreme obesity) ? Weight: 217 lb = BMI 44 (extreme obesity) ? Weight: 222 lb = BMI 45 (extreme obesity) ? Weight: 227 lb = BMI 46 (extreme obesity) ? Weight: 232 lb = BMI 47 (extreme obesity) ? Weight: 237 lb = BMI 48 (extreme obesity) ? Weight: 242 lb = BMI 49 (extreme obesity) ? Weight: 247 lb = BMI 50 (extreme obesity) ? Weight: 252 lb = BMI 51 (extreme obesity) ? Weight: 257 lb = BMI 52 (extreme obesity) ? Weight: 262 lb = BMI 53 (extreme obesity) ? Weight: 267 lb = BMI 54 (extreme obesity) Height: 60 inches ? Weight: 97 lb = BMI 19 (normal) ? Weight: 102 lb = BMI 20 (normal) ? Weight: 107 lb = BMI 21 (normal) ? Weight: 112 lb = BMI 22 (normal) ? Weight: 118 lb = BMI 23 (normal) ? Weight: 123 lb = BMI 24 (normal) ? Weight: 128 lb = BMI 25 (overweight) ? Weight: 133 lb = BMI 26 (overweight) ? Weight: 138 lb = BMI 27 (overweight) ? Weight: 143 lb = BMI 28 (overweight) ? Weight: 148 lb = BMI 29 (overweight) ? Weight: 153 lb = BMI 30 (obese) ? Weight: 158 lb = BMI 31 (obese) ? Weight: 163 lb = BMI 32 (obese) ? Weight: 168 lb = BMI 33 (obese) ? Weight: 174 lb = BMI 34 (obese) ? Weight: 179 lb = BMI 35 (obese) ? Weight: 184 lb = BMI 36 (obese) ? Weight: 189 lb = BMI 37 (obese) ? Weight: 194 lb = BMI 38 (obese) ? Weight: 199 lb = BMI 39 (obese) ? Weight: 204 lb = BMI 40 (extreme obesity) ? Weight: 209 lb = BMI 41 (extreme obesity) ? Weight: 215 lb = BMI 42 (extreme obesity) ? Weight: 220 lb = BMI 43 (extreme obesity) ? Weight: 225 lb = BMI 44 (extreme obesity) ? Weight: 230 lb = BMI 45 (extreme obesity) ? Weight: 235 lb = BMI 46 (extreme obesity) ? Weight: 240 lb = BMI 47 (extreme obesity) ? Weight: 245 lb = BMI 48 (extreme obesity) ? Weight: 250 lb = BMI 49 (extreme obesity) ? Weight: 255 lb = BMI 50 (extreme obesity) ? Weight: 261 lb = BMI 51 (extreme obesity) ? Weight: 266 lb = BMI 52 (extreme obesity) ? Weight: 271 lb = BMI 53 (extreme obesity) ? Weight: 276 lb = BMI 54 (extreme obesity) Height: 61 inches ? Weight: 100 lb = BMI 19 (normal) ? Weight: 106 lb = BMI 20 (normal) ? Weight: 111 lb = BMI 21 (normal) ? Weight: 116 lb = BMI 22 (normal) ? Weight: 122 lb = BMI 23 (normal) ? Weight: 127 lb = BMI 24 (normal) ? Weight: 132 lb = BMI 25 (overweight) ? Weight: 137 lb = BMI 26 (overweight) ? Weight: 143 lb = BMI 27 (overweight) ? Weight: 148 lb = BMI 28 (overweight) ? Weight: 153 lb = BMI 29 (overweight) ? Weight: 158 lb = BMI 30 (obese) ? Weight: 164 lb = BMI 31 (obese) ? Weight: 169 lb = BMI 32 (obese) ? Weight: 174 lb = BMI 33 (obese) ? Weight: 180 lb = BMI 34 (obese) ? Weight: 185 lb = BMI 35 (obese) ? Weight: 190 lb = BMI 36 (obese) ? Weight: 195 lb = BMI 37 (obese) ? Weight: 201 lb = BMI 38 (obese) ? Weight: 206 lb = BMI 39 (obese) ? Weight: 211 lb = BMI 40 (extreme obesity) ? Weight: 217 lb = BMI 41 (extreme obesity) ? Weight: 222 lb = BMI 42 (extreme obesity) ? Weight: 227 lb = BMI 43 (extreme obesity) ? Weight: 232 lb = BMI 44 (extreme obesity) ? Weight: 238 lb = BMI 45 (extreme obesity) ? Weight: 243 lb = BMI 46 (extreme obesity) ? Weight: 248 lb = BMI 47 (extreme obesity) ? Weight: 254 lb = BMI 48 (extreme obesity) ? Weight: 259 lb = BMI 49 (extreme obesity) ? Weight: 264 lb = BMI 50 (extreme obesity) ? Weight: 269 lb = BMI 51 (extreme obesity) ? Weight: 275 lb = BMI 52 (extreme obesity) ? Weight: 280 lb = BMI 53 (extreme obesity) ? Weight: 285 lb = BMI 54 (extreme obesity) Height: 62 inches ? Weight: 104 lb = BMI 19 (normal) ? Weight: 109 lb = BMI 20 (normal) ? Weight: 115 lb = BMI 21 (normal) ? Weight: 120 lb = BMI 22 (normal) ? Weight: 126 lb = BMI 23 (normal) ? Weight: 131 lb = BMI 24 (normal) ? Weight: 136 lb = BMI 25 (overweight) ? Weight: 142 lb = BMI 26 (overweight) ? Weight: 147 lb = BMI 27 (overweight) ? Weight: 153 lb = BMI 28 (overweight) ? Weight: 158 lb = BMI 29 (overweight) ? Weight: 164 lb = BMI 30 (obese) ? Weight: 169 lb = BMI 31 (obese) ? Weight: 175 lb = BMI 32 (obese) ? Weight: 180 lb = BMI 33 (obese) ? Weight: 186 lb = BMI 34 (obese) ? Weight: 191 lb = BMI 35 (obese) ? Weight: 196 lb = BMI 36 (obese) ? Weight: 202 lb = BMI 37 (obese) ? Weight: 207 lb = BMI 38 (obese) ? Weight: 213 lb = BMI 39 (obese) ? Weight: 218 lb = BMI 40 (extreme obesity) ? Weight: 224 lb = BMI 41 (extreme obesity) ? Weight: 229 lb = BMI 42 (extreme obesity) ? Weight: 235 lb = BMI 43 (extreme obesity) ? Weight: 240 lb = BMI 44 (extreme obesity) ? Weight: 246 lb = BMI 45 (extreme obesity) ? Weight: 251 lb = BMI 46 (extreme obesity) ? Weight: 256 lb = BMI 47 (extreme obesity) ? Weight: 262 lb = BMI 48 (extreme obesity) ? Weight: 267 lb = BMI 49 (extreme obesity) ? Weight: 273 lb = BMI 50 (extreme obesity) ? Weight: 278 lb = BMI 51 (extreme obesity) ? Weight: 284 lb = BMI 52 (extreme obesity) ? Weight: 289 lb = BMI 53 (extreme obesity) ? Weight: 295 lb = BMI 54 (extreme obesity) Height: 63 inches ? Weight: 107 lb = BMI 19 (normal) ? Weight: 113 lb = BMI 20 (normal) ? Weight: 118 lb = BMI 21 (normal) ? Weight: 124 lb = BMI 22 (normal) ? Weight: 130 lb = BMI 23 (normal) ? Weight: 135 lb = BMI 24 (normal) ? Weight: 141 lb = BMI 25 (overweight) ? Weight: 146 lb = BMI 26 (overweight) ? Weight: 152 lb = BMI 27 (overweight) ? Weight: 158 lb = BMI 28 (overweight) ? Weight: 163 lb = BMI 29 (overweight) ? Weight: 169 lb = BMI 30 (obese) ? Weight: 175 lb = BMI 31 (obese) ? Weight: 180 lb = BMI 32 (obese) ? Weight: 186 lb = BMI 33 (obese) ? Weight: 191 lb = BMI 34 (obese) ? Weight: 197 lb = BMI 35 (obese) ? Weight: 203 lb = BMI 36 (obese) ? Weight: 208 lb = BMI 37 (obese) ? Weight: 214 lb = BMI 38 (obese) ? Weight: 220 lb = BMI 39 (obese) ? Weight: 225 lb = BMI 40 (extreme obesity) ? Weight: 231 lb = BMI 41 (extreme obesity) ? Weight: 237 lb = BMI 42 (extreme obesity) ? Weight: 242 lb = BMI 43 (extreme obesity) ? Weight: 248 lb = BMI 44 (extreme obesity) ? Weight: 254 lb = BMI 45 (extreme obesity) ? Weight: 259 lb = BMI 46 (extreme obesity) ? Weight: 265 lb = BMI 47 (extreme obesity) ? Weight: 270 lb = BMI 48 (extreme obesity) ? Weight: 278 lb = BMI 49 (extreme obesity) ? Weight: 282 lb = BMI 50 (extreme obesity) ? Weight: 287 lb = BMI 51 (extreme obesity) ? Weight: 293 lb = BMI 52 (extreme obesity) ? Weight: 299 lb = BMI 53 (extreme obesity) ? Weight: 304 lb = BMI 54 (extreme obesity) Height: 64 inches ? Weight: 110 lb = BMI 19 (normal) ? Weight: 116 lb = BMI 20 (normal) ? Weight: 122 lb = BMI 21 (normal) ? Weight: 128 lb = BMI 22 (normal) ? Weight: 134 lb = BMI 23 (normal) ? Weight: 140 lb = BMI 24 (normal) ? Weight: 145 lb = BMI 25 (overweight) ? Weight: 151 lb = BMI 26 (overweight) ? Weight: 157 lb = BMI 27 (overweight) ? Weight: 163 lb = BMI 28 (overweight) ? Weight: 169 lb = BMI 29 (overweight) ? Weight: 174 lb = BMI 30 (obese) ? Weight: 180 lb = BMI 31 (obese) ? Weight: 186 lb = BMI 32 (obese) ? Weight: 192 lb = BMI 33 (obese) ? Weight: 197 lb = BMI 34 (obese) ? Weight: 204 lb = BMI 35 (obese) ? Weight: 209 lb = BMI 36 (obese) ? Weight: 215 lb = BMI 37 (obese) ? Weight: 221 lb = BMI 38 (obese) ? Weight: 227 lb = BMI 39 (obese) ? Weight: 232 lb = BMI 40 (extreme obesity) ? Weight: 238 lb = BMI 41 (extreme obesity) ? Weight: 244 lb = BMI 42 (extreme obesity) ? Weight: 250 lb = BMI 43 (extreme obesity) ? Weight: 256 lb = BMI 44 (extreme obesity) ? Weight: 262 lb = BMI 45 (extreme obesity) ? Weight: 267 lb = BMI 46 (extreme obesity) ? Weight: 273 lb = BMI 47 (extreme obesity) ? Weight: 279 lb = BMI 48 (extreme obesity) ? Weight: 285 lb = BMI 49 (extreme obesity) ? Weight: 291 lb = BMI 50 (extreme obesity) ? Weight: 296 lb = BMI 51 (extreme obesity) ? Weight: 302 lb = BMI 52 (extreme obesity) ? Weight: 308 lb = BMI 53 (extreme obesity) ? Weight: 314 lb = BMI 54 (extreme obesity) Height: 65 inches ? Weight: 114 lb = BMI 19 (normal) ? Weight: 120 lb = BMI 20 (normal) ? Weight: 126 lb = BMI 21 (normal) ? Weight: 132 lb = BMI 22 (normal) ? Weight: 138 lb = BMI 23 (normal) ? Weight: 144 lb = BMI 24 (normal) ? Weight: 150 lb = BMI 25 (overweight) ? Weight: 156 lb = BMI 26 (overweight) ? Weight: 162 lb = BMI 27 (overweight) ? Weight: 168 lb = BMI 28 (overweight) ? Weight: 174 lb = BMI 29 (overweight) ? Weight: 180 lb = BMI 30 (obese) ? Weight: 186 lb = BMI 31 (obese) ? Weight: 192 lb = BMI 32 (obese) ? Weight: 198 lb = BMI 33 (obese) ? Weight: 204 lb = BMI 34 (obese) ? Weight: 210 lb = BMI 35 (obese) ? Weight: 216 lb = BMI 36 (obese) ? Weight: 222 lb = BMI 37 (obese) ? Weight: 228 lb = BMI 38 (obese) ? Weight: 234 lb = BMI 39 (obese) ? Weight: 240 lb = BMI 40 (extreme obesity) ? Weight: 246 lb = BMI 41 (extreme obesity) ? Weight: 252 lb = BMI 42 (extreme obesity) ? Weight: 258 lb = BMI 43 (extreme obesity) ? Weight: 264 lb = BMI 44 (extreme obesity) ? Weight: 270 lb = BMI 45 (extreme obesity) ? Weight: 276 lb = BMI 46 (extreme obesity) ? Weight: 282 lb = BMI 47 (extreme obesity) ? Weight: 288 lb = BMI 48 (extreme obesity) ? Weight: 294 lb = BMI 49 (extreme obesity) ? Weight: 300 lb = BMI 50 (extreme obesity) ? Weight: 306 lb = BMI 51 (extreme obesity) ? Weight: 312 lb = BMI 52 (extreme obesity) ? Weight: 318 lb = BMI 53 (extreme obesity) ? Weight: 324 lb = BMI 54 (extreme obesity) Height: 66 inches ? Weight: 118 lb = BMI 19 (normal) ? Weight: 124 lb = BMI 20 (normal) ? Weight: 130 lb = BMI 21 (normal) ? Weight: 136 lb = BMI 22 (normal) ? Weight: 142 lb = BMI 23 (normal) ? Weight: 148 lb = BMI 24 (normal) ? Weight: 155 lb = BMI 25 (overweight) ? Weight: 161 lb = BMI 26 (overweight) ? Weight: 167 lb = BMI 27 (overweight) ? Weight: 173 lb = BMI 28 (overweight) ? Weight: 179 lb = BMI 29 (overweight) ? Weight: 186 lb = BMI 30 (obese) ? Weight: 192 lb = BMI 31 (obese) ? Weight: 198 lb = BMI 32 (obese) ? Weight: 204 lb = BMI 33 (obese) ? Weight: 210 lb = BMI 34 (obese) ? Weight: 216 lb = BMI 35 (obese) ? Weight: 223 lb = BMI 36 (obese) ? Weight: 229 lb = BMI 37 (obese) ? Weight: 235 lb = BMI 38 (obese) ? Weight: 241 lb = BMI 39 (obese) ? Weight: 247 lb = BMI 40 (extreme obesity) ? Weight: 253 lb = BMI 41 (extreme obesity) ? Weight: 260 lb = BMI 42 (extreme obesity) ? Weight: 266 lb = BMI 43 (extreme obesity) ? Weight: 272 lb = BMI 44 (extreme obesity) ? Weight: 278 lb = BMI 45 (extreme obesity) ? Weight: 284 lb = BMI 46 (extreme obesity) ? Weight: 291 lb = BMI 47 (extreme obesity) ? Weight: 297 lb = BMI 48 (extreme obesity) ? Weight: 303 lb = BMI 49 (extreme obesity) ? Weight: 309 lb = BMI 50 (extreme obesity) ? Weight: 315 lb = BMI 51 (extreme obesity) ? Weight: 322 lb = BMI 52 (extreme obesity) ? Weight: 328 lb = BMI 53 (extreme obesity) ? Weight: 334 lb = BMI 54 (extreme obesity) Height: 67 inches ? Weight: 121 lb = BMI 19 (normal) ? Weight: 127 lb = BMI 20 (normal) ? Weight: 134 lb = BMI 21 (normal) ? Weight: 140 lb = BMI 22 (normal) ? Weight: 146 lb = BMI 23 (normal) ? Weight: 153 lb = BMI 24 (normal) ? Weight: 159 lb = BMI 25 (overweight) ? Weight: 166 lb = BMI 26 (overweight) ? Weight: 172 lb = BMI 27 (overweight) ? Weight: 178 lb = BMI 28 (overweight) ? Weight: 185 lb = BMI 29 (overweight) ? Weight: 191 lb = BMI 30 (obese) ? Weight: 198 lb = BMI 31 (obese) ? Weight: 204 lb = BMI 32 (obese) ? Weight: 211 lb = BMI 33 (obese) ? Weight: 217 lb = BMI 34 (obese) ? Weight: 223 lb = BMI 35 (obese) ? Weight: 230 lb = BMI 36 (obese) ? Weight: 236 lb = BMI 37 (obese) ? Weight: 242 lb = BMI 38 (obese) ? Weight: 249 lb = BMI 39 (obese) ? Weight: 255 lb = BMI 40 (extreme obesity) ? Weight: 261 lb = BMI 41 (extreme obesity) ? Weight: 268 lb = BMI 42 (extreme obesity) ? Weight: 274 lb = BMI 43 (extreme obesity) ? Weight: 280 lb = BMI 44 (extreme obesity) ? Weight: 287 lb = BMI 45 (extreme obesity) ? Weight: 293 lb = BMI 46 (extreme obesity) ? Weight: 299 lb = BMI 47 (extreme obesity) ? Weight: 306 lb = BMI 48 (extreme obesity) ? Weight: 312 lb = BMI 49 (extreme obesity) ? Weight: 319 lb = BMI 50 (extreme obesity) ? Weight: 325 lb = BMI 51 (extreme obesity) ? Weight: 331 lb = BMI 52 (extreme obesity) ? Weight: 338 lb = BMI 53 (extreme obesity) ? Weight: 344 lb = BMI 54 (extreme obesity) Height: 68 inches ? Weight: 125 lb = BMI 19 (normal) ? Weight: 131 lb = BMI 20 (normal) ? Weight: 138 lb = BMI 21 (normal) ? Weight: 144 lb = BMI 22 (normal) ? Weight: 151 lb = BMI 23 (normal) ? Weight: 158 lb = BMI 24 (normal) ? Weight: 164 lb = BMI 25 (overweight) ? Weight: 171 lb = BMI 26 (overweight) ? Weight: 177 lb = BMI 27 (overweight) ? Weight: 184 lb = BMI 28 (overweight) ? Weight: 190 lb = BMI 29 (overweight) ? Weight: 197 lb = BMI 30 (obese) ? Weight: 203 lb = BMI 31 (obese) ? Weight: 210 lb = BMI 32 (obese) ? Weight: 216 lb = BMI 33 (obese) ? Weight: 223 lb = BMI 32 (obese) ? Weight: 230 lb = BMI 35 (obese) ? Weight: 236 lb = BMI 36 (obese) ? Weight: 243 lb = BMI 37 (obese) ? Weight: 249 lb = BMI 38 (obese) ? Weight: 256 lb = BMI 39 (obese) ? Weight: 262 lb = BMI 40 (extreme obesity) ? Weight: 269 lb = BMI 41 (extreme obesity) ? Weight: 276 lb = BMI 42 (extreme obesity) ? Weight: 282 lb = BMI 43 (extreme obesity) ? Weight: 289 lb = BMI 44 (extreme obesity) ? Weight: 295 lb = BMI 45 (extreme obesity) ? Weight: 302 lb = BMI 46 (extreme obesity) ? Weight: 308 lb = BMI 47 (extreme obesity) ? Weight: 315 lb = BMI 48 (extreme obesity) ? Weight: 322 lb = BMI 49 (extreme obesity) ? Weight: 328 lb = BMI 50 (extreme obesity) ? Weight: 335 lb = BMI 51 (extreme obesity) ? Weight: 341 lb = BMI 52 (extreme obesity) ? Weight: 348 lb = BMI 53 (extreme obesity) ? Weight: 354 lb = BMI 54 (extreme obesity) Height: 69 inches ? Weight: 128 lb = BMI 19 (normal) ? Weight: 135 lb = BMI 20 (normal) ? Weight: 142 lb = BMI 21 (normal) ? Weight: 149 lb = BMI 22 (normal) ? Weight: 155 lb = BMI 23 (normal) ? Weight: 162 lb = BMI 24 (normal) ? Weight: 169 lb = BMI 25 (overweight) ? Weight: 176 lb = BMI 26 (overweight) ? Weight: 182 lb = BMI 27 (overweight) ? Weight: 189 lb = BMI 28 (overweight) ? Weight: 196 lb = BMI 29 (overweight) ? Weight: 203 lb = BMI 30 (obese) ? Weight: 209 lb = BMI 31 (obese) ? Weight: 216 lb = BMI 32 (obese) ? Weight: 223 lb = BMI 33 (obese) ? Weight: 230 lb = BMI 34 (obese) ? Weight: 236 lb = BMI 35 (obese) ? Weight: 243 lb = BMI 36 (obese) ? Weight: 250 lb = BMI 37 (obese) ? Weight: 257 lb = BMI 38 (obese) ? Weight: 263 lb = BMI 39 (obese) ? Weight: 270 lb = BMI 40 (extreme obesity) ? Weight: 277 lb = BMI 41 (extreme obesity) ? Weight: 284 lb = BMI 42 (extreme obesity) ? Weight: 291 lb = BMI 43 (extreme obesity) ? Weight: 297 lb = BMI 44 (extreme obesity) ? Weight: 304 lb = BMI 45 (extreme obesity) ? Weight: 311 lb = BMI 46 (extreme obesity) ? Weight: 318 lb = BMI 47 (extreme obesity) ? Weight: 324 lb = BMI 48 (extreme obesity) ? Weight: 331 lb = BMI 49 (extreme obesity) ? Weight: 338 lb = BMI 50 (extreme obesity) ? Weight: 345 lb = BMI 51 (extreme obesity) ? Weight: 351 lb = BMI 52 (extreme obesity) ? Weight: 358 lb = BMI 53 (extreme obesity) ? Weight: 365 lb = BMI 54 (extreme obesity) Height: 70 inches ? Weight: 132 lb = BMI 19 (normal) ? Weight: 139 lb = BMI 20 (normal) ? Weight: 146 lb = BMI 21 (normal) ? Weight: 153 lb = BMI 22 (normal) ? Weight: 160 lb = BMI 23 (normal) ? Weight: 167 lb = BMI 24 (normal) ? Weight: 174 lb = BMI 25 (overweight) ? Weight: 181 lb = BMI 26 (overweight) ? Weight: 188 lb = BMI 27 (overweight) ? Weight: 195 lb = BMI 28 (overweight) ? Weight: 202 lb = BMI 29 (overweight) ? Weight: 209 lb = BMI 30 (obese) ? Weight: 216 lb = BMI 31 (obese) ? Weight: 222 lb = BMI 32 (obese) ? Weight: 229 lb = BMI 33 (obese) ? Weight: 236 lb = BMI 34 (obese) ? Weight: 243 lb = BMI 35 (obese) ? Weight: 250 lb = BMI 36 (obese) ? Weight: 257 lb = BMI 37 (obese) ? Weight: 264 lb = BMI 38 (obese) ? Weight: 271 lb = BMI 39 (obese) ? Weight: 278 lb = BMI 40 (extreme obesity) ? Weight: 285 lb = BMI 41 (extreme obesity) ? Weight: 292 lb = BMI 42 (extreme obesity) ? Weight: 299 lb = BMI 43 (extreme obesity) ? Weight: 306 lb = BMI 44 (extreme obesity) ? Weight: 313 lb = BMI 45 (extreme obesity) ? Weight: 320 lb = BMI 46 (extreme obesity) ? Weight: 327 lb = BMI 47 (extreme obesity) ? Weight: 334 lb = BMI 48 (extreme obesity) ? Weight: 341 lb = BMI 49 (extreme obesity) ? Weight: 348 lb = BMI 50 (extreme obesity) ? Weight: 355 lb = BMI 51 (extreme obesity) ? Weight: 362 lb = BMI 52 (extreme obesity) ? Weight: 369 lb = BMI 53 (extreme obesity) ? Weight: 376 lb = BMI 54 (extreme obesity) Height: 71 inches ? Weight: 136 lb = BMI 19 (normal) ? Weight: 143 lb = BMI 20 (normal) ? Weight: 150 lb = BMI 21 (normal) ? Weight: 157 lb = BMI 22 (normal) ? Weight: 165 lb = BMI 23 (normal) ? Weight: 172 lb = BMI 24 (normal) ? Weight: 179 lb = BMI 25 (overweight) ? Weight: 186 lb = BMI 26 (overweight) ? Weight: 193 lb = BMI 27 (overweight) ? Weight: 200 lb = BMI 28 (overweight) ? Weight: 208 lb = BMI 29 (overweight) ? Weight: 215 lb = BMI 30 (obese) ? Weight: 222 lb = BMI 31 (obese) ? Weight: 229 lb = BMI 32 (obese) ? Weight: 236 lb = BMI 33 (obese) ? Weight: 243 lb = BMI 34 (obese) ? Weight: 250 lb = BMI 35 (obese) ? Weight: 257 lb = BMI 36 (obese) ? Weight: 265 lb = BMI 37 (obese) ? Weight: 272 lb = BMI 38 (obese) ? Weight: 279 lb = BMI 39 (obese) ? Weight: 286 lb = BMI 40 (extreme obesity) ? Weight: 293 lb = BMI 41 (extreme obesity) ? Weight: 301 lb = BMI 42 (extreme obesity) ? Weight: 308 lb = BMI 43 (extreme obesity) ? Weight: 315 lb = BMI 44 (extreme obesity) ? Weight: 322 lb = BMI 45 (extreme obesity) ? Weight: 329 lb = BMI 46 (extreme obesity) ? Weight: 338 lb = BMI 47 (extreme obesity) ? Weight: 343 lb = BMI 48 (extreme obesity) ? Weight: 351 lb = BMI 49 (extreme obesity) ? Weight: 358 lb = BMI 50 (extreme obesity) ? Weight: 365 lb = BMI 51 (extreme obesity) ? Weight: 372 lb = BMI 52 (extreme obesity) ? Weight: 379 lb = BMI 53 (extreme obesity) ? Weight: 386 lb = BMI 54 (extreme obesity) Height: 72 inches ? Weight: 140 lb = BMI 19 (normal) ? Weight: 147 lb = BMI 20 (normal) ? Weight: 154 lb = BMI 21 (normal) ? Weight: 162 lb = BMI 22 (normal) ? Weight: 169 lb = BMI 23 (normal) ? Weight: 177 lb = BMI 24 (normal) ? Weight: 184 lb = BMI 25 (overweight) ? Weight: 191 lb = BMI 26 (overweight) ? Weight: 199 lb = BMI 27 (overweight) ? Weight: 206 lb = BMI 28 (overweight) ? Weight: 213 lb = BMI 29 (overweight) ? Weight: 221 lb = BMI 30 (obese) ? Weight: 228 lb = BMI 31 (obese) ? Weight: 235 lb = BMI 32 (obese) ? Weight: 242 lb = BMI 33 (obese) ? Weight: 250 lb = BMI 34 (obese) ? Weight: 258 lb = BMI 35 (obese) ? Weight: 265 lb = BMI 36 (obese) ? Weight: 272 lb = BMI 37 (obese) ? Weight: 279 lb = BMI 38 (obese) ? Weight: 287 lb = BMI 39 (obese) ? Weight: 294 lb = BMI 40 (extreme obesity) ? Weight: 302 lb = BMI 41 (extreme obesity) ? Weight: 309 lb = BMI 42 (extreme obesity) ? Weight: 316 lb = BMI 43 (extreme obesity) ? Weight: 324 lb = BMI 44 (extreme obesity) ? Weight: 331 lb = BMI 45 (extreme obesity) ? Weight: 338 lb = BMI 46 (extreme obesity) ? Weight: 346 lb = BMI 47 (extreme obesity) ? Weight: 353 lb = BMI 48 (extreme obesity) ? Weight: 361 lb = BMI 49 (extreme obesity) ? Weight: 368 lb = BMI 50 (extreme obesity) ? Weight: 375 lb = BMI 51 (extreme obesity) ? Weight: 383 lb = BMI 52 (extreme obesity) ? Weight: 390 lb = BMI 53 (extreme obesity) ? Weight: 397 lb = BMI 54 (extreme obesity) Height: 73 inches ? Weight: 144 lb = BMI 19 (normal) ? Weight: 151 lb = BMI 20 (normal) ? Weight: 159 lb = BMI 21 (normal) ? Weight: 166 lb = BMI 22 (normal) ? Weight: 174 lb = BMI 23 (normal) ? Weight: 182 lb = BMI 24 (normal) ? Weight: 189 lb = BMI 25 (overweight) ? Weight: 197 lb = BMI 26 (overweight) ? Weight: 204 lb = BMI 27 (overweight) ? Weight: 212 lb = BMI 28 (overweight) ? Weight: 219 lb = BMI 29 (overweight) ? Weight: 227 lb = BMI 30 (obese) ? Weight: 235 lb = BMI 31 (obese) ? Weight: 242 lb = BMI 32 (obese) ? Weight: 250 lb = BMI 33 (obese) ? Weight: 257 lb = BMI 34 (obese) ? Weight: 265 lb = BMI 35 (obese) ? Weight: 272 lb = BMI 36 (obese) ? Weight: 280 lb = BMI 37 (obese) ? Weight: 288 lb = BMI 38 (obese) ? Weight: 295 lb = BMI 39 (obese) ? Weight: 302 lb = BMI 40 (extreme obesity) ? Weight: 310 lb = BMI 41 (extreme obesity) ? Weight: 318 lb = BMI 42 (extreme obesity) ? Weight: 325 lb = BMI 43 (extreme obesity) ? Weight: 333 lb = BMI 44 (extreme obesity) ? Weight: 340 lb = BMI 45 (extreme obesity) ? Weight: 348 lb = BMI 46 (extreme obesity) ? Weight: 355 lb = BMI 47 (extreme obesity) ? Weight: 363 lb = BMI 48 (extreme obesity) ? Weight: 371 lb = BMI 49 (extreme obesity) ? Weight: 378 lb = BMI 50 (extreme obesity) ? Weight: 386 lb = BMI 51 (extreme obesity) ? Weight: 393 lb = BMI 52 (extreme obesity) ? Weight: 401 lb = BMI 53 (extreme obesity) ? Weight: 408 lb = BMI 54 (extreme obesity) Height: 74 inches ? Weight: 148 lb = BMI 19 (normal) ? Weight: 155 lb = BMI 20 (normal) ? Weight: 163 lb = BMI 21 (normal) ? Weight: 171 lb = BMI 22 (normal) ? Weight: 179 lb = BMI 23 (normal) ? Weight: 186 lb = BMI 24 (normal) ? Weight: 194 lb = BMI 25 (overweight) ? Weight: 202 lb = BMI 26 (overweight) ? Weight: 210 lb = BMI 27 (overweight) ? Weight: 218 lb = BMI 28 (overweight) ? Weight: 225 lb = BMI 29 (overweight) ? Weight: 233 lb = BMI 30 (obese) ? Weight: 241 lb = BMI 31 (obese) ? Weight: 249 lb = BMI 32 (obese) ? Weight: 256 lb = BMI 33 (obese) ? Weight: 264 lb = BMI 34 (obese) ? Weight: 272 lb = BMI 35 (obese) ? Weight: 280 lb = BMI 36 (obese) ? Weight: 287 lb = BMI 37 (obese) ? Weight: 295 lb = BMI 38 (obese) ? Weight: 303 lb = BMI 39 (obese) ? Weight: 311 lb = BMI 40 (extreme obesity) ? Weight: 319 lb = BMI 41 (extreme obesity) ? Weight: 326 lb = BMI 42 (extreme obesity) ? Weight: 334 lb = BMI 43 (extreme obesity) ? Weight: 342 lb = BMI 44 (extreme obesity) ? Weight: 350 lb = BMI 45 (extreme obesity) ? Weight: 358 lb = BMI 46 (extreme obesity) ? Weight: 365 lb = BMI 47 (extreme obesity) ? Weight: 373 lb = BMI 48 (extreme obesity) ? Weight: 381 lb = BMI 49 (extreme obesity) ? Weight: 389 lb = BMI 50 (extreme obesity) ? Weight: 396 lb = BMI 51 (extreme obesity) ? Weight: 404 lb = BMI 52 (extreme obesity) ? Weight: 412 lb = BMI 53 (extreme obesity) ? Weight: 420 lb = BMI 54 (extreme obesity) Height: 75 inches ? Weight: 152 lb = BMI 19 (normal) ? Weight: 160 lb = BMI 20 (normal) ? Weight: 168 lb = BMI 21 (normal) ? Weight: 176 lb = BMI 22 (normal) ? Weight: 184 lb = BMI 23 (normal) ? Weight: 192 lb = BMI 24 (normal) ? Weight: 200 lb = BMI 25 (overweight) ? Weight: 208 lb = BMI 26 (overweight) ? Weight: 216 lb = BMI 27 (overweight) ? Weight: 224 lb = BMI 28 (overweight) ? Weight: 232 lb = BMI 29 (overweight) ? Weight: 240 lb = BMI 30 (obese) ? Weight: 248 lb = BMI 31 (obese) ? Weight: 256 lb = BMI 32 (obese) ? Weight: 264 lb = BMI 33 (obese) ? Weight: 272 lb = BMI 34 (obese) ? Weight: 279 lb = BMI 35 (obese) ? Weight: 287 lb = BMI 36 (obese) ? Weight: 295 lb = BMI 37 (obese) ? Weight: 303 lb = BMI 38 (obese) ? Weight: 311 lb = BMI 39 (obese) ? Weight: 319 lb = BMI 40 (extreme obesity) ? Weight: 327 lb = BMI 41 (extreme obesity) ? Weight: 335 lb = BMI 42 (extreme obesity) ? Weight: 343 lb = BMI 43 (extreme obesity) ? Weight: 351 lb = BMI 44 (extreme obesity) ? Weight: 359 lb = BMI 45 (extreme obesity) ? Weight: 367 lb = BMI 46 (extreme obesity) ? Weight: 375 lb = BMI 47 (extreme obesity) ? Weight: 383 lb = BMI 48 (extreme obesity) ? Weight: 391 lb = BMI 49 (extreme obesity) ? Weight: 399 lb = BMI 50 (extreme obesity) ? Weight: 407 lb = BMI 51 (extreme obesity) ? Weight: 415 lb = BMI 52 (extreme obesity) ? Weight: 423 lb = BMI 53 (extreme obesity) ? Weight: 431 lb = BMI 54 (extreme obesity) Height: 76 inches ? Weight: 156 lb = BMI 19 (normal) ? Weight: 164 lb = BMI 20 (normal) ? Weight: 172 lb = BMI 21 (normal) ? Weight: 180 lb = BMI 22 (normal) ? Weight: 189 lb = BMI 23 (normal) ? Weight: 197 lb = BMI 24 (normal) ? Weight: 205 lb = BMI 25 (overweight) ? Weight: 213 lb = BMI 26 (overweight) ? Weight: 221 lb = BMI 27 (overweight) ? Weight: 230 lb = BMI 28 (overweight) ? Weight: 238 lb = BMI 29 (overweight) ? Weight: 246 lb = BMI 30 (obese) ? Weight: 254 lb = BMI 31 (obese) ? Weight: 263 lb = BMI 32 (obese) ? Weight: 271 lb = BMI 33 (obese) ? Weight: 279 lb = BMI 34 (obese) ? Weight: 287 lb = BMI 35 (obese) ? Weight: 295 lb = BMI 36 (obese) ? Weight: 304 lb = BMI 37 (obese) ? Weight: 312 lb = BMI 38 (obese) ? Weight: 320 lb = BMI 39 (obese) ? Weight: 328 lb = BMI 40 (extreme obesity) ? Weight: 336 lb = BMI 41 (extreme obesity) ? Weight: 344 lb = BMI 42 (extreme obesity) ? Weight: 353 lb = BMI 43 (extreme obesity) ? Weight: 361 lb = BMI 44 (extreme obesity) ? Weight: 369 lb = BMI 45 (extreme obesity) ? Weight: 377 lb = BMI 46 (extreme obesity) ? Weight: 385 lb = BMI 47 (extreme obesity) ? Weight: 394 lb = BMI 48 (extreme obesity) ? Weight: 402 lb = BMI 49 (extreme obesity) ? Weight: 410 lb = BMI 50 (extreme obesity) ? Weight: 418 lb = BMI 51 (extreme obesity) ? Weight: 426 lb = BMI 52 (extreme obesity) ? Weight: 435 lb = BMI 53 (extreme obesity) ? Weight: 443 lb = BMI 54 (extreme obesity) Source: Adapted from Clinical Guidelines on the Identification, Evaluation, and Treatment of Overweight and Obesity in Adults: The Evidence Report. HEALTH RISK CLASSIFICATION ACCORDING TO BODY MASS INDEX (BMI) Classification: Underweight. ? BMI Category: less than 18.5 ? Risk of developing health problems: Increased. Classification: Normal Weight. ? BMI Category: 18.5 to 24.9 ? Risk of developing health problems: Least. Classification: Overweight. ? BMI Category: 25.0 to 29.9 ? Risk of developing health problems: Increased. Classification: Obese class. ? BMI Category: 30.0 to 34.9 ? Risk of developing health problems: High. Classification: Obese class II. ? BMI Category: 35.0 to 39.9 ? Risk of developing health problems: Very high. Classification: Obese class III. ? BMI Category: 40.0 or more ? Risk of developing health problems: Extremely high. Note: For persons 65 years and older the 'normal' range may begin slightly above BMI 18.5 and extend into the 'overweight' range. ? To clarify risk for each individual, other factors also need to be considered, such as: ? Lifestyle habits. ? Fitness level. ? Presence or absence of other health risk conditions. ? The classification system may underestimate or overestimate health risks in certain adults, such as: ? Highly muscular adults. Very muscular adults, such as athletes, may have a low percentage of body fat but a large amount of muscle tissue. This can result in a BMI in the overweight range that may over estimate the risk of developing health problems. ? Adults who naturally have a very lean body build. ? Young adults who have not reached full growth. ? Adults over 65 years of age. For adults over age 65, more research is needed to determine if the cut-off points for the 'normal weight' range differ in any way from those for younger adults. ? It is also important to note that BMI is only one part of a health risk assessment. To further clarify risk, other factors need to be considered as well. ? Age, inherited traits, presence or absence of other conditions such as diabetes, high blood lipids, hypertension, and high blood glucose levels also influence the development of diseases associated with overweight. Risk factors such as poor eating habits, physical inactivity, and tobacco use can play a role in the development of diseases associated with both overweight and underweight. Consult a caregiver for a more complete assessment of your weight as it relates to health risk. It is important to discuss with your caregiver what BMI means for you as an individual. Maintaining a 'normal weight' is one element of good health. However, unhealthy eating habits, low levels of physical activity and tobacco use will increase the risk of health problems even for those within the normal weight range. Being overweight indicates some risk to health. But research suggests that regular physical activity can decrease the risk of several health problems. Equally, a nutritious diet has been shown to decrease some of the risks associated with overweight. It is important to emphasize that a weight classification system is but one tool to assess health risks in individuals. Document Released: 12/06/2004 Document Revised: 06/18/2012 Document Reviewed: 01/04/2006 ExitCare? Patient Information ?2014 [employer]. DASH Diet The DASH diet stands for Dietary Approaches to Stop Hypertension. It is a healthy eating plan that has been shown to reduce high blood pressure (hypertension ) in as little as 14 days, while also possibly providing other significant health benefits. These other health benefits include reducing the risk of breast cancer after menopause and reducing the risk of type 2 diabetes, heart disease, colon cancer, and stroke. Health benefits also include weight loss and slowing kidney failure in patients with chronic kidney disease. DIET GUIDELINES ? Limit salt (sodium ). Your diet should contain less than 1500 mg of sodium daily. ? Limit refined or processed carbohydrates. Your diet should include mostly whole grains. Desserts and added sugars should be used sparingly. ? Include small amounts of heart-healthy fats. These types of fats include nuts, oils, and tub margarine. Limit saturated and trans fats. These fats have been shown to be harmful in the body. CHOOSING FOODS The following food groups are based on a 2000 calorie diet. See your Registered Dietitian for individual calorie needs. Grains and Grain Products (6 to 8 servings daily) ? Eat More Often: Whole-wheat bread, brown rice, whole-grain or wheat pasta, quinoa, popcorn without added fat or salt (air popped). ? Eat Less Often: White bread, white pasta, white rice, cornbread. Vegetables (4 to 5 servings daily) ? Eat More Often: Fresh, frozen, and canned vegetables. Vegetables may be raw, steamed, roasted, or grilled with a minimal amount of fat. ? Eat Less Often/Avoid: Creamed or fried vegetables. Vegetables in a cheese sauce. Fruit (4 to 5 servings daily) ? Eat More Often: All fresh, canned (in natural juice), or frozen fruits. Dried fruits without added sugar. One hundred percent fruit juice (? cup [237 mL] daily). ? Eat Less Often: Dried fruits with added sugar. Canned fruit in light or heavy syrup. Lean Meats, Fish, and Poultry (2 servings or less daily. One serving is 3 to 4 oz [85-114 g]). ? Eat More Often: Ninety percent or leaner ground beef, tenderloin, sirloin. Round cuts of beef, chicken breast, turkey breast. All fish. [place], bake, or broil your meat. Nothing should be fried. ? Eat Less Often/Avoid: Fatty cuts of meat, turkey, or chicken leg, thigh, or wing. Fried cuts of meat or fish. Dairy (2 to 3 servings) ? Eat More Often: Low-fat or fat-free milk, low-fat plain or light yogurt, reduced-fat or part-skim cheese. ? Eat Less Often/Avoid: Milk (whole, 2%).?Whole milk yogurt. Full-fat cheeses. Nuts, Seeds, and Legumes (4 to 5 servings per week) ? Eat More Often: All without added salt. ? Eat Less Often/Avoid: Salted nuts and seeds, canned beans with added salt. Fats and Sweets (limited) ? Eat More Often: Vegetable oils, tub margarines without trans fats, sugar-free gelatin. Mayonnaise and salad dressings. ? Eat Less Often/Avoid: Coconut oils, palm oils, butter, stick margarine, cream, half and half, cookies, candy, pie. FOR MORE INFORMATION The Dash Diet Eating Plan: www.dashdiet.org Document Released: 03/15/2012 Document Revised: 06/18/2012 Document Reviewed: 03/15/2012 ExitCare? Patient Information ?2013 [employer]. My[employer] The amount you need to eat from each food group depends on your age, sex, and level of physical activity. To find the amounts that are right for you, go to ChooseMyPlate.gov. Tips: ? Enjoy your food, but eat less. ? Avoid oversized portions. GRAINS ? Make at least half of your grains whole grains. ? For a 2,000 calorie daily food plan, eat 6 ounces every day. ? 1 oz is about 1 slice of bread, 1 cup of cereal, or ? cup of cooked rice, cereal, or pasta. VEGETABLES ? Make half your plate fruits and vegetables. ? For a 2,000 calorie daily food plan, eat 2 ? cups every day. ? 1 cup is about 1 cup of raw or cooked vegetables or vegetable juice, or 2 cups of raw leafy greens. FRUITS ? Make half your plate fruits and vegetables. ? For a 2,000 calorie daily food plan, eat 2 cups every day. ? 1 cup is about 1 cup of fruit or 100% fruit juice, or ? cup of dried fruit. DAIRY ? Switch to fat-free or low-fat (1%) milk. ? For a 2,000 calorie daily food plan, eat 3 cups every day. ? 1 cup is about 1 cup of milk, yogurt, or soymilk (soy beverage), 1 ? oz of natural cheese, or 2 oz of processed cheese. PROTEIN ? For a 2,000 calorie daily food plan, eat 5 ? ounces every day. ? 1 oz is about 1 oz of meat, poulty, or fish, ? cup cooked beans, 1 egg, 1 tbs of peanut butter, or ? oz of nuts or seeds. OILS AND EMPTY CALORIES ? Only small amounts of oils are recommended. ? Empty calories are calories from solid fats or added sugars. ? Compare sodium in foods like soup, bread, and frozen meals. Choose the foods with lower numbers. ? Drink water instead of sugary drinks. Document Released: 04/15/2008 Document Revised: 06/18/2012 Document Reviewed: 06/16/2008 ExitCare? Patient Information ?2013 [employer]. Family [facility] Obesity Obesity is defined as having too much total body fat and a body mass index (BMI) of 30 or more. BMI is an estimate of body fat and is calculated from your height and weight. Obesity happens when you consume more calories than you can burn by exercising or performing daily physical tasks. Prolonged obesity can cause major illnesses or emergencies, such as: ? A stroke. ? Heart disease. ? Diabetes. ? Cancer. ? Arthritis. ? High blood pressure (hypertension ). ? High cholesterol. ? Sleep apnea. ? Erectile dysfunction. ? Infertility problems. CAUSES ? Regularly eating unhealthy foods. ? Physical inactivity. ? Certain disorders, such as an underactive thyroid (hypothyroidism ), Velarde's syndrome, and polycystic ovarian syndrome. ? Certain medicines, such as steroids, some depression medicines, and antipsychotics. ? Genetics. ? Lack of sleep. DIAGNOSIS A caregiver can diagnose obesity after calculating your BMI. Obesity will be diagnosed if your BMI is 30 or higher. There are other methods of measuring obesity levels. Some other methods include measuring your skin fold thickness, your waist circumference, and comparing your hip circumference to your waist circumference. TREATMENT A healthy treatment program includes some or all of the following: ? Long-term dietary changes. ? Exercise and physical activity. ? Behavioral and lifestyle changes. ? Medicine only under the supervision of your caregiver. Medicines may help, but only if they are used with diet and exercise programs. An unhealthy treatment program includes: ? Fasting. ? Fad diets. ? Supplements and drugs. These choices do not succeed in long-term weight control. HOME CARE INSTRUCTIONS ? Exercise and perform physical activity as directed by your caregiver. To increase physical activity, try the following: ? Use stairs instead of elevators. ? Park farther away from store entrances. ? Garden, bike, or walk instead of watching television or using the computer. ? Eat healthy, low-calorie foods and drinks on a regular basis. Eat more fruits and vegetables. Use low-calorie cookbooks or take healthy cooking classes. ? Limit fast food, sweets, and processed snack foods. ? Eat smaller portions. ? Keep a daily journal of everything you eat. There are many free websites to help you with this. It may be helpful to measure your foods so you can determine if you are eating the correct portion sizes. ? Avoid drinking alcohol. Drink more water and drinks without calories. ? Take vitamins and supplements only as recommended by your caregiver. ? Weight-loss support groups, Registered Dieticians, counselors, and stress reduction education can also be very helpful. SEEK IMMEDIATE MEDICAL CARE IF: ? You have chest pain or tightness. ? You have trouble breathing or feel short of breath. ? You have weakness or leg numbness. ? You feel confused or have trouble talking. ? You have sudden changes in your vision. MAKE SURE YOU: ? Understand these instructions. ? Will watch your condition. ? Will get help right away if you are not doing well or get worse. Document Released: 05/04/2005 Document Revised: 09/25/2012 Document Reviewed: 05/02/2012 ExitCare? Patient Information ?2013 [employer]. Otitis Media, Adult A middle ear infection is an infection in the space behind the eardrum. The medical name for this is otitis media. It may happen after a common cold. It is caused by a germ that starts growing in that space. You may feel swollen glands in your neck on the side of the ear infection. HOME CARE INSTRUCTIONS ? Take your medicine as directed until it is gone, even if you feel better after the first few days. ? Only take gjqa-iiz-jdqwoqw or prescription medicines for pain, discomfort, or fever as directed by your caregiver. ? Occasional use of a nasal decongestant a couple times per day may help with discomfort and help the eustachian tube to drain better. Follow up with your caregiver in 10 to 14 days or as directed, to be certain that the infection has cleared. Not keeping the appointment could result in a chronic or permanent injury, pain, hearing loss and disability. If there is any problem keeping the appointment, you must call back to this facility for assistance. SEEK IMMEDIATE MEDICAL CARE IF: ? You are not getting better in 2 to 3 days. ? You have pain that is not controlled with medication. ? You feel worse instead of better. ? You cannot use the medication as directed. ? You develop swelling, redness or pain around the ear or stiffness in your neck. MAKE SURE YOU: ? Understand these instructions. ? Will watch your condition. ? Will get help right away if you are not doing well or get worse. Document Released: 12/30/2004 Document Revised: 06/18/2012 Document Reviewed: 10/31/2008 ExitCare? Patient Information ?2013 [employer]. [facility] SARS-CoV-2, NAAon 11-20-2019 SARS CORONAVIRUS 2 RNA:PRTHR:PT:RESPIRATO RY:ORD:PROBE.AMP.TAR Not Detected Not Detected [facility] Comment on above: Result Comment: This test was developed and its performance characteristics determined by [employer]. This test has not been FDA cleared or approved. This test has been authorized by FDA under an Emergency Use Authorization (EUA). This test is only authorized for the duration of time the declaration that circumstances exist justifying the authorization of the emergency use of in vitro diagnostic tests for detection of SARS-CoV-2 virus and/or diagnosis of COVID-19 infection under section 564(b)(1) of the Act, 21 U.S.C. 360bbb-3(b)(1), unless the authorization is terminated or revoked sooner. When diagnostic testing is negative, the possibility of a false negative result should be considered in the context of a patient's recent exposures and the presence of clinical signs and symptoms consistent with COVID-19. An individual without symptoms of COVID-19 and who is not shedding SARS-CoV-2 virus would expect to have a negative (not detected) result in this assay. Performed at: [facility] [address] [place] [id number] MD Malaika Velez Performed By: #### S ARS-CoV-2, ALONDRA #### [facility] [address] [place] [address] [facility] Video Visit - Telehealthon 11-16-2019 [facility] Medicine Video Visit - Telehealth Chief Complaint EST covid-19 symptoms HPI Staff Pt presents today via face time for scratchy throat, body aches, loss of taste, chills, sweats, fever of 103 and congestion. Onset 3 days ago. Denies any known exposure to COVID-19. History of Present Illness I have reviewed and verified the staff HPI to be accurate for this encounter. Patient presents for possible COVID symptoms x 3 days. Complains of body aches, scratchy throat, mild cough, fever 103. Denies known COVID exposure. Has been using tylenol with improvement of fever. Review of Systems Fatigue: yes Body aches: yes Chills: yes Fever: yes ABBOTT: yes Nasal congestion: yes Rhinorrhea: yes Cough: yes, dry SOB: no Wheezing: no Sore throat: no Ear pain: no, ear pressure Ear drainage: no Loss of taste or smell: yes, taste Nausea: no Vomiting: no Diarrhea: no Current or former smoker: no Underlying health conditions: no Known Covid exposure: no Physical Exam General: Well developed, well nourished, in no acute distress Mouth: Limited exam on video visit- throat appears without any significant pharyngeal erythema or edema, no exudate, no petechiae, no palatal inflammation Lungs: No conversational dyspnea, no audible wheezing. Appears in no respiratory distress. Able to hold breath for 10 seconds without issue Skin: Skin appears pink without cyanosis Mental Status: Alert and oriented x3. Normal mood and affect Assessment/Plan 1. Cough (R05: Cough) Will send for COVID testing. Will notify of results in 3-7 days. Instructions given for testing at hospital- needs to call central scheduling on monday. Advised to self quarantine x 10 days after onset of symptoms and until fever free x 32days without tylenol/ibuprofen with improving URI symptoms. Social distancing, good handwashing encouraged. May use OTC cold medications for symptomatic tx. ER if any severe worsening symptoms, shortness of breath. Patient verbalized understanding of tx plan. This visit was conducted via two-way, real-time interactive video communications from my office using [employer] due to the restrictions of the COVID-19 pandemic. No physical exam was conducted other than those areas of the body visible to telecommunications with the patient located at [address] [phone], with no one else in attendance. If it is determined that the patient should be evaluated in the clinic, the patient will be directed to the appropriate clinic or venue. The patient or their guardian verbally consented to this visit. Video time was 15 minutes with the patient face to face greater than 50% in addition to counseling and coordination of care. Ordered: SARS-CoV-2, ALONDRA 2. Nasal congestion (R09.81: Nasal congestion) see above plan Ordered: SARS-CoV-2, ALONDRA Follow-up No qualifying data available Problem List/Past Medical History Ongoing Gall stones GERD (gastroesophageal reflux disease) Historical seasonal allergies Medications No active medications Allergies No Known Allergies Social History Alcohol - Denies Alcohol Use, 01/31/2011 Substance Abuse - Denies Substance Abuse, 01/31/2011 Tobacco - Denies Tobacco Use, 01/31/2011 Never (less than 100 in lifetime) Tobacco Use:. Never Smokeless Tobacco Use:., 11/16/2019 Family History Breast cancer: Grandparent. Hypertension: Grandparent. Stroke: Grandparent. Normal [facility] Comment on above: Result Comment: Elec tronically Signed By: SEAN KIM, Abbey Brown.ynes\Date and Time Signed: 11/16/19 14:27 EDT URINE CULTUREon 07-10-2017 Urine culture, bacteria SPECIMEN DESCRIPTION URINE CLEAN CATCHUA DIPSTICK NITRITE NEGATIVE * Result Note: LEUKOCYTE NEGATIVE *CULTURE ESCHERICHIA COLI * Result Note: 50,000 C/C/ML * * Result Note: Testing performed at [place] [address] *REPORT STATUS 07/10/2017 * Result Note: FINAL * O RGANISM ESCHERICHIA COLI * Result Note: ESCHERICHIA COLI *METHOD MICAMPICILLIN <=2 SUSCEPTIBLEAMPICILLIN/SULBA CTAM <=2 SUSCEPTIBLECEFTRIAXONE <=1 SUSCEPTIBLECEFAZOLIN <=4 SUSCEPTIBLEIMIPENEM <=0.25 SUSCEPTIBLEGENTAMICIN <=1 SUSCEPTIBLETRIMETH-SULFA <=20 SUSCEPTIBLEAMOXICILLIN/CLAV ULANIC A <=2 SUSCEPTIBLENITROFURANTOIN 32 SUSCEPTIBLEPIPERACILLIN/SADA OBACTAM <=4 SUSCEPTIBLELEVOFLOXACIN <=0.12 SUSCEPTIBLEESBL NEGATIVECEFTAZIDIME <=1 SUSCEPTIBLE Normal [facility] Comment on above: Performed By: #### A URNC ####Testing performed at [facility] [place], [place] [address]Qcbxvzs performed at [facility] [place] [address] BHCG,QUANTITATIVEon 07-08-19 18 BHCG,QUANTITATIVE 133.56 MIU/ML Normal [facility] Comment on above: Result Comment: BHCG INTERPRETIVE RANGES: NON FEMALE 0-6 MIU/MLMALE ADULT 0-2 MIU/ML0-1 WEEK 6-50 MIU/ML1-2 WEEKS 40-300 MIU/ML2-3 WEEKS 100-1,000 MIU/ML3-4 WEEKS 500-6,000 MIU/ML1-2 MONTHS 5,000-200,000 MIU/ML2-3 MONTHS 10,000-100,000 MIU/ML2ND TRIMESTER 3,000-50,000 MIU/ML3RD TRIMESTER 1,000-50,000 MIU/MLIf an hCG level is inconsistent with, or unsupported by, clinical evidence, results should be confirmed by an alternate hCG method. This method may include the qualitative hCG testing of urine. Performed By: #### A [facility] ####Testing performed at [address] [address] CBCon 07-07-2017 ABSOLUTE BAS 0.1 X10 Normal [facility] Comment on above: Performed By: #### [facility] ####Testing performed at [address] [address] ABSOLUTE EOS 0.20 X10 Normal [facility] Comment on above: Performed By: #### A CBC CG2 ####Testing performed at [address] [address] Basophils/100 WBC Auto (Bld) 0.6 % Normal 0.0-2.0 [facility] Comment on above: Performed By: #### A CBC CG2 ####Testing performed at [address] [address] DTYPE AUTO DIFF Normal [facility] Comment on above: Performed By: #### A CBC CG2 ####Testing performed at [address] [address] Eosinophils/100 leukocytes 2.0 % Normal 0.0-11.0 [facility] Comment on above: Performed By: #### A CBC CG2 ####Testing performed at [address] [address] Lymphocytes 2.00 X10 Normal [facility] Comment on above: Performed By: #### A CBC, BHCG2 ####Testing performed at [address] [address] Lymphocytes/100 leukocytes 23.0 % Normal 20.0-55.0 [facility] Comment on above: Performed By: #### A CBC, BHCG2 ####Testing performed at [address] [address] Monocytes 0.6 X10 Normal [facility] Comment on above: Performed By: #### A CBC, BHCG2 ####Testing performed at [address] [address] Monocytes/100 leukocytes 7.1 % Normal 0.0-10.0 [facility] Comment on above: Performed By: #### A CBC, BHCG2 ####Testing performed at [address] [address] Neutrophils 5.9 x10 Normal 1.0-7.0 [facility] Comment on above: Performed By: #### A CBC, BHCG2 ####Testing performed at [address] [address] Neutrophils/100 leukocytes 67.3 % Normal 37.0-75.0 [facility] Comment on above: Performed By: #### A CBC, BHCG2 ####Testing performed at [address] [address] Erythrocyte distribution width Auto Ratio (RBC) 12.1 % Normal 11.5-14.5 [facility] Comment on above: Performed By: #### A CBC, BHCG2 ####Testing performed at [address] [address] Erythrocytes (RBC) 4.72 /cmm Normal 4.0-5.4 [facility] Comment on above: Performed By: #### A CBC, BHCG2 ####Testing performed at [address] [address] Hematocrit (HCT) 43.2 % Normal 36.0-48.0 [facility] Comment on above: Performed By: #### A CBC, BHCG2 ####Testing performed at [address] [address] Hemoglobin mass conc (Bld) 15.1 g/dL Normal 12.0-16.0 [facility] Comment on above: Performed By: #### A CBC BHCG2 ####Testing performed at [address] [address] MCH 32.0 pg Normal 26.0-35.0 [facility] Comment on above: Performed By: #### A CBC BHCG2 ####Testing performed at [address] [address] MCHC mass conc (RBC) 35.0 g/dL Normal 27.0-37.0 [facility] Comment on above: Performed By: #### A CBCALEXANDRACG2 ####Testing performed at [address] [address] MCV 91.5 fL Normal 80.0-100.0 [facility] Comment on above: Performed By: #### A CBC BHCG2 ####Testing performed at [address] [address] Platelet mean volume (PMV) 9.2 fL Normal 7.4-11.0 [facility] Comment on above: Performed By: #### A CBC BHCG2 ####Testing performed at [address] [address] Platelets 235 /cmm Normal 130.0-400. 0 [facility] Comment on above: Performed By: #### A CBC BHCG2 ####Testing performed at [address] [address] WBC (Leukocytes) 8.8 /cmm Normal 3.6-11.0 [facility] Comment on above: Performed By: #### A CBC BHCG2 ####Testing performed at [address] [address] ED NOTEon 07-07-2017 [facility] NOTES Normal [facility] ED PROVIDERon 07-07-2017 [facility] NOTES Normal [facility] URINE MACROSCOPICon 07-08-19 18 Bilirubin Ql (U) Negative Normal NEGATIVE [facility] Comment on above: Performed By: #### U MAC, UMIC ####Testing performed at [address] [place] [address] URINE HEMOGLOBIN LARGE Abnormal NEGATIVE [facility] Comment on above: Performed By: #### U MAC, UMIC ####Testing performed at [address] [place] [address] URINE KETONE Negative Normal NEGATIVE [facility] Comment on above: Performed By: #### U MAC, UMIC ####Testing performed at [address] [place] [address] URINE LEUKOTEST Negative Normal NEGATIVE [facility] Comment on above: Performed By: #### U MAC, UMIC ####Testing performed at [address] [place] [address] URINE NITRATES Negative Normal NEGATIVE [facility] Comment on above: Performed By: #### U MAC, UMIC ####Testing performed at [address] [place] [address] URINE SPEC GRAVITY 1.025 Normal 1.010-1.0 2 5 [facility] Comment on above: Performed By: #### U MAC, UMIC ####Testing performed at [address] [place] [address] URINE TOTAL PROTEIN Negative Normal NEGATIVE [facility] Comment on above: Performed By: #### U MAC, UMIC ####Testing performed at [address] [place] [address] Urine, clarity CLEAR Normal CLEAR [facility] Comment on above: Performed By: #### U MAC, UMIC ####Testing performed at [address] [place] [address] Urine, color YELLOW Normal YELLOW [facility] Comment on above: Performed By: #### U MAC, UMIC ####Testing performed at [address] [place] [address] Urine, glucose presence Negative Normal NEGATIVE [facility] Comment on above: Performed By: #### U MAC, UMIC ####Testing performed at [address] [place] [address] Urine, pH 7.0 [pH] Normal 5.0-7.0 [facility] Comment on above: Performed By: #### U MAC, UMIC ####Testing performed at [address] [place] [address] Urine, urobilinogen 1.0 mg/dl Normal 0.2-1.0 [facility] Comment on above: Performed By: #### U MAC, UMIC ####Testing performed at [address] [place] [address] URINE MICROSCOPICon 07-08-19 18 CRYSTAL OCCASIONAL Abnormal NONE [facility] Comment on above: Result Comment: CHRIS PHOUS PHOSPHATES Performed By: #### U MAC, UMIC ####Testing performed at [address] [place] [address] URINE COMMENT REFLEX CULTURE PER ESTABLISHED CRITERIA. Normal [facility] Comment on above: Performed By: #### U MAC, UMIC ####Testing performed at [address] [place] [address] URINE WBC'S 1 TO 5 Normal NEGATIVE [facility] Comment on above: Performed By: #### U MAC, UMIC ####Testing performed at [address] [place] [address] Urine, bacteria in sediment 1+ Abnormal NEGATIVE [facility] Comment on above: Performed By: #### U MAC, UMIC ####Testing performed at [address] [place] [address] Urine, casts in sediment NONE Normal [facility] Comment on above: Performed By: #### U MAC, UMIC ####Testing performed at [address] [place] [address] Urine, epithelial cells in sediment 1 TO 5 Normal [facility] Comment on above: Performed By: #### U MAC, UMIC ####Testing performed at [address] [place] [address] Urine, erythrocytes 1 TO 5 Normal NEGATIVE [facility] Comment on above: Performed By: #### U MAC, UMIC ####Testing performed at [address] [place] [address] Urine, mucus presence in sediment Negative Normal NEGATIVE [facility] Comment on above: Performed By: #### U MAC, UMIC ####Testing performed at [address] [address] [facility] Quant[facility] 07-[facility]-2017 HCG.beta subunit Qn 238.0 mIU/m Normal [facility] Comment on above: Result Comment: FEMA LE (NON-) & MALE <3 BORDERLINE 3 - 5 SUGGEST REPEAT TESTING FEMALE () 1 D - 1 WK 5 - 50 1 - 2 WK 50 - 500 2 - 3 WK 100 - 5000 3 - 4 WK 500 - 65901 4 - 5 WK 1000 - 97690 5 - 6 WK [address] - 824534 6 - 8 W[place] [address] - 780750 2 - 3 [place] [address] - 088008 Performed By: #### 2 [id number] ####JIMMIEJonathan DanNupGivy[address]32 [place] [address] Auto Diffon 07-04-2017 Basophils Auto #/vol (Bld) 0.1 E3/mcL Normal 0.0-0.2 [facility] Comment on above: Order Comment: Order Added by Discern Expert. Performed By: #### 2 [id number] ####JIMMIE DanSlsUgzm3713 [place] [address] Basophils/100 WBC Auto (Bld) 0.6 % Normal 0.0-2.0 [facility] Comment on above: Order Comment: Order Added by Discern Expert. Performed By: #### 2 [id number] ####JIMMIE DanXphXowx8726 [place] [address] Eos Absolute 0.3 E3/mcL Normal 0.0-0.7 [facility] Comment on above: Order Comment: Order Added by Discern Expert. Performed By: #### 2 478880 ####JIMMIE DanXutFcwn8578 [place] [address] Eosinophils/100 leukocytes 2.5 % Normal 0.0-11.0 [facility] Comment on above: Order Comment: Order Added by Discern Expert. Performed By: #### 2 142572 ####JIMMIE DanOrcMpum5153 [place] [address] Lymphocytes 2.3 E3/mcL Normal 1.2-3.4 [facility] Comment on above: Order Comment: Order Added by Discern Expert. Performed By: #### 2 137373 ####JIMMIE Ozunao[address] [place] [address] Lymphocytes/100 leukocytes 22.2 % Normal 20.0-55.0 [facility] Comment on above: Order Comment: Order Added by Discern Expert. Performed By: #### 2 050596 ####JIMMIE [address]ao[address] [place] [address] [place] Absolute 0.8 E3/mcL High 0.0-0.7 [facility] Comment on above: Order Comment: Order Added by Discern Expert. Performed By: #### 2 848637 ####JIMMIE [address] [place] [address] Monocytes/100 leukocytes 7.6 % Normal 0.0-10.0 [facility] Comment on above: Order Comment: Order Added by Discern Expert. Performed By: #### 2 526851 ####JIMMIE [address] [place] [address] Neutro Absolute 6.9 E3/mcL High 1.4-6.5 [facility] Comment on above: Order Comment: Order Added by Discern Expert. Performed By: #### 2 607200 ####JIMMIE [address] [place] [address] Neutro Auto 67.1 % Normal 37.0-75.0 [facility] Comment on above: Order Comment: Order Added by Discern Expert. Performed By: #### 2 650488 ####JIMMIE DanYehRzop8314 [place] [address] BMPon 07-04-2017 BUN/Creatinine Ratio 21.7 ratio Normal 5.4-30.0 [facility] Comment on above: Performed By: #### 2 407559 ####JIMMIE DanCxcSiqx2014 [place] [address] Creatinine 0.6 mg/dL Normal 0.6-1.3 [facility] Comment on above: Performed By: #### 2 507880 ####JIMMIE DanHkfPqwq3977 [place] [address] Urea nitrogen 13 mg/dL Normal 7-18 [facility] Comment on above: Performed By: #### 2 116229 ####JIMMIE DanNepHtys4190 [place] [address] Calcium 8.4 mg/dL Normal 8.4-10.2 [facility] Comment on above: Performed By: #### 2 086956 ####JIMMIE VcjAmsv6479 [place] [address] Chloride 100 mmol/L Normal 98-107 [facility] Comment on above: Performed By: #### 2 744117 ####JIMMIE ElvSqei4567 [place] [address] CO2 27.7 mmol/L Normal 24.0-30.0 [facility] Comment on above: Performed By: #### 2 118601 ####JIMMIE RarVdab2804 [place] [address] Glucose mass conc 98 mg/dL Normal 70-99 [facility] Comment on above: Performed By: #### 2 470377 ####JIMMIE VyeCsci5333 [place] [address] Potassium molar conc 3.4 mmol/L Low 3.5-5.1 [facility] Comment on above: Performed By: #### 2 716402 ####JIMMIE AvdWfqm6210 [place] [address] Sodium 133 mmol/L Low 136-145 [facility] Comment on above: Performed By: #### 2 385565 ####JIMMIE ZlmIzxd9984 [place] [address] BhCG Quanton 07-04-2017 HCG.beta subunit Qn 190.8 mIU/m Normal [facility] Comment on above: Result Comment: FEMA LE (NON-) & MALE <3 BORDERLINE 3 - 5 SUGGEST REPEAT TESTING FEMALE () 1 D - 1 WK 5 - 50 1 - 2 WK 50 - 500 2 - 3 WK 100 - 5000 3 - 4 WK 500 - [address]7950 4 - 5 WK 1000 - [address] 5 - 6 WK [address] - 087581 6 - 8 WK [address] - 224780 2 - 3 [place] [address] - [address]862 Performed By: #### 2 047277 ####JIMMIE DanXygPwrd9676 [place] [address] CBC w/ Auto Diffon 8 Erythrocyte distribution width Auto Ratio (RBC) 11.6 % Normal 11.5-14.5 [facility] Comment on above: Performed By: #### 2 615722 ####JIMMIE [address]unao[address] [place] [address] Erythrocytes (RBC) 4.43 E6/mcL Normal 3.90-5.40 [facility] Comment on above: Performed By: #### 2 453007 ####JIMMIE [address]ao[address] [place] [address] Hematocrit (HCT) 40.1 % Normal 36.0-48.0 [facility] Comment on above: Performed By: #### 2 327184 ####JIMMIE [address] [place] [address] Hemoglobin mass conc (Bld) 14.1 g/dL Normal 12.0-16.0 [facility] Comment on above: Performed By: #### 2 018357 ####JIMMIE [address] [place] [address] MCH 31.7 pg High 27.0-31.0 [facility] Comment on above: Performed By: #### 2 884910 ####JIMMIE [address] [place] [address] MCHC mass conc (RBC) 35.1 g/dL Normal 33.0-37.0 [facility] Comment on above: Performed By: #### 2 626719 ####JIMMIE [address]ao[address] [place] [address] MCV 90.4 fL Normal 78.0-100.0 [facility] Comment on above: Performed By: #### 2 972240 ####JIMMIE DanWfxOqdi8411 [place] [address] Platelet mean volume (PMV) 8.4 fL Normal 7.4-11.0 [facility] Comment on above: Performed By: #### 2 057553 ####JIMMIE [address]ao[address] [place] [address] Platelets 232 E3/mcL Normal 130-400 [facility] Comment on above: Performed By: #### 2 952623 ####JIMMIE Ozunao[address] [place] [address] WBC (Leukocytes) 10.3 E3/mcL Normal 3.6-11.0 [facility] Comment on above: Performed By: #### 2 951408 ####JIMMIE MwvAsrf5858 [place] [address] Hep Func Panelon 07-04-2017 Alanine aminotransferase (ALT) 15 Int._Unit/L Normal 10-40 [facility] Comment on above: Performed By: #### 2 757818 ####JIMMIE ZqzFubg1220 [place] [address] Albumin 3.8 g/dL Normal 3.2-5.0 [facility] Comment on above: Performed By: #### 2 870109 ####JIMMIEJonathan GreshamOyyEnvu2055 [place] [address] Albumin/Globulin Ratio 1.4 {ratio} Normal 1.1-1.[address] [facility] Comment on above: Performed By: #### 2 469353 ####JIMMIEJonathan GreshamNjvGcmi2220 [place] [address] Alk Phos 36 Int._Unit/L Low 42-121 [facility] Comment on above: Performed By: #### 2 936969 ####JIMMIE MhbKcke9197 [place] [address] Aspartate aminotransferase (AST) 18 Int._Unit/L Normal 10-42 [facility] Comment on above: Performed By: #### 2 596141 ####JIMMIEJonathan GreshamTryItns0325 [place] [address] Bili Direct <.10 Normal .00-.20 [facility] Comment on above: Performed By: #### 2 065244 ####JIMMIEJonathan DanGvwAlpw5165 [place] [address] Bili Indirect >0.7 Normal [facility] Comment on above: Result Comment: No e stablished ranges available for the Indirect Biliruben. Performed By: #### 2 658547 ####JIMMIEJonathan DanEyxRwyz9337 [place] [address] Bili Total 0.8 mg/dL Normal 0.2-1.0 [facility] Comment on above: Performed By: #### 2 147477 ####JIMMIEJonathan GreshamNduNcvl3458 [place] [id number] Globulin 2.8 g/dL Normal 2.0-4.0 [facility] Comment on above: Performed By: #### 2 327132 ####JIMMIE DanQpxKuzr4399 [place] [address] Protein 6.6 g/dL Normal 6.4-8.3 [facility] Comment on above: Performed By: #### 2 400034 ####JIMMIE OkdDqhj3109 [place] [address] Lipase Levelon 07-04-2017 Lipase Lvl 19 U/L Normal 8-57 [facility] Comment on above: Performed By: #### 2 833347 ####JIMMIE JizKsnr4565 [place] [address] U BhCG Qlton 07-04-2017 HCG.beta subunit Qn Positive Normal Neg [facility] Comment on above: Performed By: #### 2 152819 ####JIMMIE Urinalysis Manual Zjwikemmlz1035 [place] [address] UA Completeon 07-04-2017 UA Blood 3+ Normal Negative [facility] Comment on above: Performed By: #### 8 [id number] ####JIMMIE Urinalysis Automated Nobspobmao6938 [place] [address] UA Bacteria Trace Abnormal None [facility] Comment on above: Performed By: #### 8 [id number] ####JIMMIE Urinalysis Automated Uyjztyzdbr2049 [place] [address] UA Clarity SltCloudy Abnormal Clear [facility] Comment on above: Performed By: #### 8 [id number] ####JIMMIE Urinalysis Automated Wucgvhqfkc0540 [place] [address] UA Leuk Est Trace Normal Negative [facility] Comment on above: Performed By: #### 8 [id number] ####JIMMIE Urinalysis Automated Fkaecrzddu4715 [place] [address] UA Mucous Occasional Abnormal Trace [facility] Comment on above: Performed By: #### [id number] ####JIMMIE Urinalysis [facility] [address] [place] [address] UA Nitrite Negative Normal Negative [facility] Comment on above: Performed By: #### [id number] ####JIMMIE Urinalysis [employer]ated [address] [place] [address] UA pH 5.0 Normal 4.6-8.0 [facility] Comment on above: Performed By: #### [id number] ####JIMMIE Urinalysis [employer]ated [address] [place] [address] UA Protein Negative Normal Negative [facility] Comment on above: Performed By: #### [id number] ####JIMMIE Urinalysis Automated [id number] [place] [address] UA Spec Grav 1.027 Normal 1.003-1.03 0 [facility] Comment on above: Performed By: #### 8 [id number] ####JIMMIE Urinalysis Automated [address] [place] [address] UA Squam Epithelial 0-5 Normal 0-5 [facility] Comment on above: Performed By: #### [id number] ####JMIMIE Urinalysis Automated [address] [place] [address] UA Urobilinogen Negative Normal [facility] Comment on above: Performed By: #### 8 [id number] ####JIMMIE Urinalysis Automated [address] [place] [address] UA WBC 10-20 Abnormal 0-5 [facility] Comment on above: Performed By: #### 8 [id number] ####JIMMIE Urinalysis Automated [address] [place] [address] Urine, color Yellow Normal Yellow [facility] Comment on above: Performed By: #### 8 [id number] ####JIMMIE Urinalysis Automated [address] [place] [address] Urine, erythrocytes 5-10 Abnormal 0-3 [facility] Comment on above: Performed By: #### 8 [id number] ####JIMMIE Urinalysis Automated [address] [place] [address] Urine, glucose Negative Normal Negative [facility] Comment on above: Performed By: #### 8 [id number] ####JIMMIE Urinalysis Automated [address] [place] [address] Urine, ketones presence Negative Normal Negative [facility] Comment on above: Performed By: #### 8 [id number] ####JIMMIE Urinalysis Automated [address] [place] [address] Urine, urobilinogen Negative Normal Negative [facility] Comment on above: Performed By: #### 8 [id number] ####JIMMIE Urinalysis Automated [address] [place] [address] eGFRon 07-04-2017 eGFR (non-black) mL/min/{1.73_m2} Normal [facility] Comment on above: Order Comment: Order added by Discern Expert. Performed By: #### 1 [id number] ####JIMMIE [address] [place] [id number] Vital Signs Date Time Vital Sign Value Performing Clinician Cong reynolds 03-10-2023 23:05-0500 Diastolic blood pressure 80 mm[Hg] Supriya Aichholz Work Phone: [facility] 03-10-2023 23:05-0500 Heart rate 100 /min Supriya Aichholz Work Phone: [facility] 03-10-2023 23:05-0500 Respiratory rate 20 /min Supriya Aichholz Work Phone: [facility] 03-10-2023 23:05-0500 SaO2% (BldA) [Mass fraction] 98 % Supryia Aichholz Work Phone: [facility] 03-10-2023 23:05-0500 Systolic blood pressure 137 mm[Hg] Supriya Aichholz Work Phone: [facility] 03-10-2023 17:38-0500 Body temperature 97.9 [degF] Supriya Aichholz Work Phone: [facility] 03-10-2023 17:32-0500 Body height 160.02 cm Supriya Aichholz Work Phone: [facility] 03-10-2023 17:32-0500 Body weight 95 kg Supriya Aichholz Work Phone: [facility] Encounters Encounter Date Encounter Type Care Provider Facility Start: 03-14-2023 End: 03-14-2023 ambulatory XIN GRULLON Not Available Start: 03-10-2023 End: 03-11-2023 Emergency department patient visit Jacky Alarcon Facility:[facility] Start: 03-10-2023 End: 03-10-2023 Emergency department patient visit Supriya Emmanuelreillyaric Work Phone: [facility] Work Phone: Start: 03-07-2023 End: 03-07-2023 ambulatory XIN GRULLON Not Available Start: 07-29-2022 End: 07-30-2022 Evaluation and management of inpatient DR JEFFREY NUNEZ . Facility: Start: 07-21-2022 End: 07-22-[address] XIN GRULLON . Facility:[facility] Start: 07-06-2022 End: 07-06-2022 ambulatory STEFAN STATON . Facility:[facility] Start: 06-06-2022 End: 06-07-[address] XIN GRULLON . Facility:[facility] Start: 05-21-2022 End: 05-22-[address] XIN GRULLON . Facility:[facility] Start: 05-11-2022 End: 05-11-2022 ambulatory STEFAN STATON . Facility:[facility] Start: 05-09-2022 End: 05-10-[address] XIN GRULLON . Facility:[facility] Start: 03-17-2022 End: 03-18-2022 ambulatory STEFAN STATON . Facility:[facility] Start: 02-12-2022 End: 02-13-[address] XIN GRULLON . Facility:[facility] Start: 02-11-[address] XIN GRULLON . Facili ty:[facility] Start: 01-21-2022 End: 01-22-[address] XIN GRULLON . Facility: Start: 07-07-2017 End: 07-07-2017 Emergency department patient visit [facility] Start: 07-05-2017 End: 07-06-2017 Ambulatory Dickson Ahmadi Facility:[facility] Start: 07-04-2017 End: 07-04-2017 Emergency department patient visit Dickson Ahmadi Facility:[facility] Procedures Date Procedure Procedure Detail Performing Clinician Start: 07-29-2022 Delivery of Products of Conception, External Approach STEFAN STATON . Start: 07-29-2022 Drainage of Amniotic Fluid, Therapeutic from Products of Conception, Via Natural or Artificial Opening STEFAN STATON . Start: 07-29-2022 Introduction of Othe r Hormone into Peripheral Vein, Percutaneous Approach STEFAN STATON . Plan of Treatment Date Care Activity Detail Author Start: 03-10-2023 US Gallbladder [facility] Start: 03-10-2023 US scan of gallbladder US gall bladd er [facility] Start: 03-10-2023 Bacteria identified in Urine by Culture [facility] Patient Education - e Second Month Nausea and Vomiting, Adult ED Gallstones ED [facility] Work Phone: Patient referral [facility] Work Phone: Payers Date Payer Category Payer Unknown [id number] 2022 Unknown [id number] 2017 Unknown 1998 Unknown [id number] 2.16.84 0.1.813536.3.579.2.593 1998 Unknown [id number] 2.16.84 0.1.298315.3.579.2.593 1998 Unknown [id number] 2.16.84 0.1.137009.3.579.2.593 1998 Unknown [id number] 2.16.84 0.1.832519.3.579.2.593 1998 Unknown [id number] 2.16.84 0.1.998023.3.579.2.593 1998 Unknown [id number] 2.16.84 0.1.445136.3.579.2.593 1998 Unknown [id number] 2.16.84 0.1.051084.3.579.2.593 1998 Unknown [id number] 2.16.84 0.1.016919.3.579.2.593 1998 Unknown [id number] 2.16.84 0.1.227292.3.579.2.593 1998 Unknown [id number] 2.16.84 0.1.578015.3.579.2.593 1998 Unknown [id number] 2.16.84 0.1.655327.3.579.2.593 1998 Unknown [id number] 2.16.84 0.1.906109.3.579.2.593 1998 Unknown [id number] 2.16.84 0.1.166701.3.579.2.593 1998 Unknown [id number] 2.16.840 .1.195225.3.579.2.1259 1998 Unknown [id number] 2.16.840 .1.136894.3.579.2.1259 1959 Private Health Insurance [id number] 1959 Self-pay 1959 Unknown [id number] 1959 Unknown [id number] Unknown [id number] 2.16.8 40.1.424295.3.579.2.531 Social History Date Type Detail Facility Start: 03-10-2023 Tobacco smoking stat [facility] Never smoked tobacco (finding) [facility] Start: 2000 Sex Assigned At Female F [facility] Evaluation note Note Date & Type Note Facility Evaluation note No assessment information availa ble [facility] Work Phone: Hospital Discharge instructions Note Date & Type Note Facility Hospital Discharge instructions Additional Instructions Return if symptoms are worse Continue your Zofran and Reglan at home and will add Phenergan for vomiting Follow-up with your surgeon [facility] Work Phone: Summary Purpose Family History No Family History Records FoundNo Family History Records FoundNo Family History Records FoundNo Family History Records FoundNo Family History Records FoundNo Family History Records Found Advance Directives No Advanced Directives Records Found Advance Directive Response Recorded Date/ Time Advance Directives No March 10, 2023 8:32pm Chief Complaint and Reason for Visit Chief Complaint 5wks right side flan k pain Additional Source Comments INFORMATION SOURCE (unrecogn ized section and content) DATE CREATED AUTHOR 09/28/2017 [facility] DATE CREATED AUTHOR AUTHOR'S ORGANIZ ATION 09/29/2017 [facility] DATE CREATED AUTHOR AUTHOR'S ORGANIZ ATION 04/16/2020 [facility] DATE CREATED AUTHOR AUTHOR'S ORGANIZ ATION 08/24/2022 [facility] DATE CREATED AUTHOR AUTHOR'S ORGANIZ ATION [address] [facility] EPIC DATE CREATED AUTHOR AUTHOR'S ORGANIZ ATION 03/21/2023 [facility] Care Teams (unrecognized sec tion and content) Team Status: Active Member Role Status Dates Supriya Cerrato Primary Care Provider Active Team Status: Inactive Member Role Status Dates Supriya Cerrato Primary Care Provider Active Jacky Alarcon MD Emergency Provider Active Goals (unrecognized section and content) Goals may be documented in a n alternate section FOR RECORDS PERTAINING TO PATIENTS WHO ARE OR HAVE BEEN ENROLLED IN A CHEMICAL DEPENDENCY/SUBSTANCEABUSE PROGRAM, SOME INFORMATION MAY BE OMITTED. This clinical summary was aggregated from multiple sources. Caution should be exercised in using it in the provision of clinical care. This summary normalizes information from multiple sources, and as a consequence, information in this document may materially change the coding, format and clinical context of patient data. In addition, data may be omitted in some cases. CLINICAL DECISIONS SHOULD BE BASED ON THE PRIMARY CLINICAL RECORDS. [facility] [employer] [facility]. provides no warranty or guarantee of the accuracy or completeness of information in this document.
== END 2023-03-31 10:13 | disposition home or self-care (01) ==
LOC: US 10:12
PROVIDERS: Visit Provider Obstetrics & Gynecology
DX: Z34.91 Encounter for supervision of normal pregnancy, unspecified, first trimester (principal); Z3A.09 9 weeks gestation of pregnancy; N92.6 Irregular menstruation, unspecified
CPT/HCPCS: 76817

== ENCOUNTER 2023-05-18 10:21 | Outpatient (OUT) | payer OTHER, SELFPAY ==
[2023-05-18 11:00] LABS: Basophils Percent Auto 0.3 % (0.2-2.0); Eosinophils Absolute Auto 0.2 10^3/uL (0.0-0.7); Hematocrit 39.3 % (36.0-48.0); Hemoglobin 14.1 g/dL (12.0-16.0); Immature Granulocytes Abs Auto 0.07 10^3/uL (0.00-0.03); Immature Granulocytes Pct Auto 0.7 % (0.0-0.5); Lymphocytes Percent Auto 19.1 % (20.5-60.0); Mean Corpuscular HGB Conc 35.9 g/dL (29.9-35.2); Mean Corpuscular Volume 89.3 fL (81.0-99.0); Mean Platelet Volume 11.4 fL (9.5-13.5); Monocytes Absolute Auto 0.5 10^3/uL (0.3-0.8); Monocytes Percent Auto 4.7 % (1.7-12.0); Neutrophils Absolute Auto 7.6 10^3/uL (1.4-6.5); Neutrophils Percent Auto 73.2 % (43.0-75.0); Platelet Count 218 10^3/uL (150-450); Red Cell Distribution Width 12.8 % (11.0-15.0); White Blood Count 10.4 10^3/uL (4.0-11.0)
[2023-05-18 11:20] LABS: Estimated Average Glucose 82 mg/dL; Glycohemoglobin A1C 4.5 % (4.5-6.2)
[2023-05-19 06:10] LABS: HBsAg Screen Negative (Negative); HCV Ab Non Reactive (Non Reactive); HIV Ab/p24 Ag Screen Non Reactive (Non Reactive)
[2023-05-19 07:08] LABS: Rubella Antibodies, IgG 1.72 index (Immune >0.99)
[2023-05-19 10:11] LABS: Rapid Plasma Reagin, Quant Non Reactive titer (NonRea<1:1)
== END 2023-05-18 10:22 | disposition home or self-care (01) ==
LOC: LAB 10:22
PROVIDERS: Visit Provider Obstetrics & Gynecology
DX: N92.6 Irregular menstruation, unspecified (principal)
CPT/HCPCS: 36415; 83036; 85025; 86592; 86762; 86803; 86850; 86900; 86901; 87086; 87340; 87389

== ENCOUNTER 2023-06-05 21:29 | Outpatient (REF) | payer OTHER, SELFPAY ==
--- OUTSIDE RECORDS SUMMARY | 2023-06-05 21:36 | XMS_ITS | CCD ---
Author Name Unknown Address [address] [place] [address] Organization [facility] Care Team Providers Care Barker Operator Name Role Phone Galdino, Dickson W Unavailable Unavailable Galdino, Dickson W Unavailable Unavailable No Doctor Assigned, Nodr Unavailable Unavail able [place], Dickson W Unavailable Unavailable [place], Dickson W Unavailable Unavailable No Doctor Assigned, Nodr Unavailable Unavail able SHEMAR ., STEFAN Admitting Unavailable SHEMAR ., STEFAN Consulting Unavailable AICHHOLZ, LIQUEFIED NATURAL GAS OPERATOR SUPRIYA Primary Care Unavailable SHEMAR ., STEFAN Attending Unavailable MORTEZA ., DR LAUREN Admitting Unavailable SHEMAR ., STEFAN Consulting Unavailable AICHHOLZ, LIQUEFIED NATURAL GAS OPERATOR SUPRIYA Primary Care Unavailable MORTEZA ., DR LAUREN Attending Unavailable SHEMAR ., STEFAN Admitting Unavailable SHEMAR ., STEFAN Consulting Unavailable SHEMAR ., STEFAN Attending Unavailable AICHHOLZ, LIQUEFIED NATURAL GAS OPERATOR SUPRIYA Primary Care Unavailable AICHHOLZ, LIQUEFIED NATURAL GAS OPERATOR SUPRIYA Primary Care Unavailable MORTEZA ., DR LAUREN Attending Unavailable MORTEZA ., DR LAUREN Admitting Unavailable MORTEZA ., DR LAUREN Admitting Unavailable MORTEZA ., DR LAUREN Attending Unavailable AICHHOLZ, LIQUEFIED NATURAL GAS OPERATOR SUPRIYA Primary Care Unavailable MORTEZA ., DR LAUREN Consulting Unavailable KARASIK ., DR MURPHY Attending Unavailabl e AICHHOLZ, LIQUEFIED NATURAL GAS OPERATOR SUPRIYA Primary Care Unavailable KARASIK ., DR MURPHY Admitting Unavailabl e ZiTristan parrish Consulting Unavailable KARASIK ., DR MURPHY Consulting Unavailabl e MORTEZA ., DR LAUREN Attending Unavailable MORTEZA ., DR LAUREN Admitting Unavailable REQUEST, DR FERNANDEZ LISTED Primary Care Unavaila ble MORTEZA ., DR LAUREN Consulting Unavailable MORTEZA ., DR LAUREN Procedure Practitioner Unavail able MORTEZA ., DR LAUREN Admitting Unavailable MORTEZA ., DR LAUREN Consulting Unavailable AICHHOLZ, LIQUEFIED NATURAL GAS OPERATOR SUPRIYA Primary Care Unavailable MORTEZA ., DR LAUREN Attending Unavailable Zieber, Tristan Consulting Unavailable MORTEZA ., DR LAUREN Consulting Unavailable REQUEST, DR NONE LISTED Primary Care Unavaila ble MORTEZA ., DR LAUREN Attending Unavailable MORTEZA ., DR LAUREN Admitting Unavailable Tristan Hart Consulting Unavailable MORTEZA ., DR LAUREN Admitting Unavailable AICHHOLZ, LIQUEFIED NATURAL GAS OPERATOR SUPRIYA Primary Care Unavailable MORTEZA ., DR LAUREN Attending Unavailable EAST PROSPECT, DR DONALD Bryan Consulting Unavailable MORTEZA ., DR LAUREN Consulting Unavailable MORTEZA ., DR LAUREN Admitting Unavailable AICHHOLZ, LIQUEFIED NATURAL GAS OPERATOR SUPRIYA Primary Care Unavailable MORTEZA ., DR LAUREN Attending Unavailable MORTEZA ., DR LAUREN Consulting Unavailable SHEMAR ., STEFAN Attending Unavailable SHEMAR ., STEFAN Admitting Unavailable Zieber, Tristan Consulting Unavailable REQUEST, DR NONE LISTED Primary Care Unavaila ble SHEMAR ., STEFAN Consulting Unavailable MORTEZA ., DR LAUREN Admitting Unavailable MORTEZA ., DR LAUREN Consulting Unavailable MORTEZA ., DR LAUREN Attending Unavailable AICHHOLZ, LIQUEFIED NATURAL GAS OPERATOR SUPRIYA Primary Care Unavailable Aictanvi, Supriya J Primary Care Provider [phone] MD Jacky Alarcon Emergency Provider Jacky Alarcon Attending Unavailable Jacky Alarcon Admitting Unavailable AicSupriya finch Primary Care Unavailable Aichholz SOAP PRESS FEEDER-LIQUEFIED NATURAL GAS OPERATOR, Supriya J Primary Care Provider XIN PRO Attending Unavailable XIN PRO Attending Unavailable XIN PRO Attending Unavailable Unavailable Primary Care Provider Unavailabl e AL-JUBOURI, PA A Referring Unavailabl e AICHHOLAngie, SUPRIYA J Primary Care Unavailable AL-JUBOURI, PA A Admitting Unavailabl e AL-JUBOURI, PA A Attending Unavailabl e AL-JUBOURI, PA A Referring Unavailabl e AICHHOLAngie, SUPRIYA J Primary Care Unavailable AL-SHANNON, PA A Attending Unavailabl e AICHTANVI, SUPRIYA J Primary Care Unavailable SUKI ELI Attending Unavailable SUPRIYA CERRATO Primary Care Unavailable GERSON AVALOS Attending UnavailSUPRIYA Soares Referring Unavailable SUPRIYA CERRATO Primary Care Unavailable Allergies Allergy Classification Reported Allergen(s) Allergy Type Date of Onset Reaction(s) Facility (1 source) No Known Medication Allergies; Translations: [No Known Medication Allergies] Propensity to adverse reactions to drug (disorder) [facility] Repository Medications Current Medications Medication Drug Class(es) Dates Sig (Normalized) Sig (Original) alpha-tocopherol acetate 30 unt / ascorbic acid 100 mg / beta carotene 1000 unt / calcium carbonate 200 mg / calcium pantothenate 7 mg / cholecalciferol 400 unt / docusate sodium 25 mg / ferrous fumarate 29 mg / folic acid 1 mg / niacinamide 15 mg / pyridoxine hydrochloride 20 mg / riboflavin 3 mg / thiamine 3 mg / vitamin b12 0.012 mg / zinc oxide 20 mg oral tablet (2 sources) Vitamin B12, Vitamin D, Vitamin C take 1 tablet by mouth in the morning PNV 119-iron fum-folic acid ( 19) 29 mg iron- 1 mg tablet Indications: Take 1 mg by mouth in the morning. Indications: . 0 Active cephalexin 500 mg oral capsule (1 source) Cephalosporin Antibacterial Start: 03-10-2023 take 1000 mg by mouth every twelve hours Cephalexin Active 1000 MG PO Q12H 40 10 March 10, 2023 12:00am docusate sodium 100 mg oral capsule (2 sources) Start: 05-08-2023 End: 05-18-2023 take 1 capsule by mouth twice daily as needed for constipation docusate sodium (Colace) 100 MG capsule Indications: Second trimester , Nausea and vomiting, unspecified vomiting type Take 1 capsule (100 mg) by mouth 2 (two) times a day as needed for constipation for up to 10 days 30 capsule 5 05/08/2023 05/18/2023 Active ondansetron 4 mg disintegrating oral tablet (2 sources) Serotonin-3 Receptor Antagonist Start: 05-08-2023 take 1 tablet by mouth every eight hours for nausea ondansetron ODT (Zofran-ODT) 4 MG disintegrating tablet Indications: Second trimester Take 1 tablet (4 mg) by mouth every 8 (eight) hours if needed for nausea or vomiting 20 tablet 2 05/08/2023 Active oxyCODONE hydrochloride 5 mg oral tablet (2 sources) Opioid Agonist Start: 05-04-2023 take 1 tablet by mouth every six hours as needed for pain oxyCODONE (Roxicodone) 5 MG immediate release tablet Take 5 mg by mouth every 6 (six) hours if needed for moderate pain 0 05/04/2023 Active 27-1 MG tablet (2 sources) take 1 tablet by mouth once daily 27-1 MG tablet Take 1 tablet by mouth 1 (one) time each day at the same time. 0 Active promethazine hydrochloride 25 mg oral tablet (1 [...] applicable or unspecified; Translations: [MAT CARE EXCSS [facility]RD [facility] UNS] Onset: 06-06-2022 Episodic Other nervous system disorders (1 source) Other acute postprocedural pain; Translations: [Other acute postprocedural pain] Onset: 05-04-2023 Episodic Other and delivery including normal (14 [...] unspecified spontaneous without complication] Onset: 07-07-2017 Episodic Unclassified (1 source) CHOLELITHIASIS Onset: 05-04-2023 Unclassified (1 source) Pre-op Exam Onset: 03-30-2023 Past or Other Problems Problem Classification Problem [...] accident; Translations: [ENC EXAM AND OBSERVATION FOLLOW OT ACC] Onset: 05-11-2022 Episodic Other injuries and conditions due to external causes (1 source) History of falling; Translations: [HISTORY OF FALLING] Onset: 05-11-2022 Episodic Other screening for suspected conditions (not mental disorders or infectious disease) (5 sources) Encounter for screening for malignant neoplasm of cervix; Translations: [Encounter for screening for diabetes mellitus] Onset: 02-17-2022 Episodic NEGATED: Highlighted row has been ruled out!Unclassified (2 sources) No known active problems 09-30-2019 Results Test Name Value Interpretation Reference Range Facility ALL CBC WITH AUTO DIFFon BASOPHILS ABSOLUTE AUTO 0.0 [facility] Basophils/100 WBC (Bld) 0.3 % 0.2 - 2.0 % [facility] Eosinophils/100 WBC (Bld) 2.0 % 0.9 - 7.0 % [facility] Erythrocyte distribution width (RBC) [Ratio] 12.8 % 11.0 - 15.0 % [facility] Hematocrit (Bld) [Volume fraction] 39.3 % 36.0 - 48.0 % [facility] Hemoglobin (Bld) [Mass/Vol] 14.1 g/dL 12.0 - 16.0 g/dL [facility] IMMATURE GRANULOCYTES ABS AUTO 0.07 High [facility] Immature granulocytes/100 WBC (Bld) 0.7 % High 0.0 - 0.5 % [facility] Interpretation and review of laboratory results Abnormal [facility] LYMPHOCYTES ABSOLUTE AUTO 2.0 [facility] Lymphocytes/100 WBC (Bld) 19.1 % Low 20.5 - 60.0 % [facility] MCH (RBC) [Entitic mass] 32.0 pg 26.7 - 34.0 pg [facility] MCHC (RBC) [Mass/Vol] 35.9 g/dL High 29.9 - 35.2 g/dL [facility] MCV (RBC) [Entitic vol] 89.3 fL 81.0 - 99.0 fL [facility] MONOCYTES ABSOLUTE AUTO 0.5 [facility] Monocytes/100 WBC (Bld) 4.7 % 1.7 - 12.0 % [facility] NEUTROPHILS ABSOLUTE AUTO 7.6 High [facility] Neutrophils/100 WBC (Bld) 73.2 % 43.0 - 75.0 % [facility] Platelet mean volume (Bld) [Entitic vol] 11.4 fL 9.5 - 13.5 fL [facility] TBH EO # 0.2 [facility] TB PLT 218 [facility] RBC 4.40 [facility] WBC 10.4 [facility] Surgical Pathologyon 024 Surgical Pathology Normal [facility] Comment on above: Result Comment: [facility] [address] [place] [address] Surgical Pathology Consultation Patient Name:DARY ASHLEY:2000 (Age: 23)Gender:FTaken:4Reported:4Physician(s):GERSON Kelsey To: Rec. 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 No evidence of malignancy or dysplasia. Cholelithiasis. Report Electronically Signed Out ao/05/12/2023olamide Moreno MD Interpretation performed at [facility], [address] [place] [address], License number: [id number]. Clinical History Cholelithiasis. Gross Description Received in formalin labeled DION is an intact gallbladder, 11.5 x 3.5 x 3.3 cm. The cystic duct is identified and the resection margin is shaved. The serosa is purple-bueno, significantly congested with scattered fibrous adhesions. The hepatic bed aspect is roughened, cauterized and remarkable for 4 ragged defects ranging from 1.3 to 2.9 cm that are located 0.6 cm to the cystic duct margin. The gallbladder is opened to reveal scant green-brown, coagulated bile and approximately 8 brown-alcala multifaceted calculi ranging from 0.3 to 1.5 cm and a 3.9 x 3 cm. The gallbladder mucosa is significantly fibrotic and attenuated at the body and fundus and significantly congested, hemorrhagic and velvety in the neck. Elevator Examiner sections are submitted in cassettes A- B, as: A- cystic duct margin and marketing sales representative ragged defects,B- marketing sales representative neck body and fundus. After initial microscopic evaluation, additional sections are submitted in cassettes C-E. (5,ss,[id number], m6) MARYJANE/MD merida/05/04/2023SSI Specimen(s) Received Gallbladder Fee Codes(s): 1; 36430 gall bladderon 03-11-2023 gall bladder [facility] Main [place] [id number] Ultrasound Report Signed Patient: Dary Ashley MR#: [id number] : 2000 Acct:[id number] Age/Sex: 22 / F ADM Date: 03/10/23 Loc: ER Room: Type: [facility] ER Attending Dr: Ordering Provider: Jacky Alarcon [...] Nataliia Scott M.D.03/11/2023 8:10 AM Dictation Location: [place] [address] Tech: Isi Caballero Transcribed By: RONI 03/11/23 0810 Dictated By: Nataliia Scott MD 03/11/23 0807 Signed By: 03/11/23 0810 Normal [facility] Alanine aminotransferase [En zymatic activity/volume] in Serum or PlasmaOrdered By: Jacky Alarcon on 03-10-2023 ALT [Catalytic activity/Vol] 36 U/L 7-52 [facility] Albumin [Mass/volume] in Ser um or Plasma by Bromocresol green (BCG) dye binding methoOrdered By: Jacky Alarcon on 03-10-2023 Albumin BCG dye [Mass/Vol] 4.5 g/dL 3.5-5.7 [facility] Alkaline phosphatase [Enzyma tic activity/volume] in Serum or PlasmaOrdered By: Jacky Alarcon on 03-10-2023 ALP [Catalytic activity/Vol] 71 U/L 34-104 [facility] Aspartate aminotransferase [ Enzymatic activity/volume] in Serum or PlasmaOrdered By: Jacky Alarcon on 03-10-2023 AST [Catalytic activity/Vol] 17 U/L 13-39 [facility] Automated erythrocytes count in urine sediment (number/area)Ordered By: Jacky Alarcon on 03-10-2023 RBC Auto (Urine sed) [#/Area] 50-100 [HPF] 0-4 [facility] Automated leukocytes count i n urine sediment (number/area)Ordered By: Jacky Alarcon on 03-10-2023 WBC Auto (Urine sed) [#/Area] 5-9 [HPF] 0-4 [facility] Basic Metabolic Panelon 12-0 Anion gap [Moles/Vol] 16.5 mmol/L High 6.0-15.0 [facility] Comment on above: Performed By: #### L IPASE, HCGQNT, HEPATIC, BMP, CBC #### [facility] [address] Calcium [Mass/Vol] 9.3 mg/dL Normal 8.6-10.3 [facility] Comment on above: Performed By: #### L IPASE, HCGQNT, HEPATIC, BMP, CBC #### [facility] [address] Chloride [Moles/Vol] 101 mmol/L Normal 98-107 [facility] Comment on above: Performed By: #### L IPASE, HCGQNT, HEPATIC, BMP, CBC #### [facility] [address] CO2 [Moles/Vol] 18.8 mmol/L Low 21.0-31.0 [facility] Comment on above: Performed By: #### L IPASE, HCGQNT, HEPATIC, BMP, CBC #### [address] Creatinine [Mass/Vol] 0.64 mg/dL Normal 0.60-1.20 [facility] Comment on above: Performed By: #### L IPASE, HCGQNT, HEPATIC, BMP, CBC #### [place] [address] [place] Creatinine Clr Calc Pharmacy 148.58 [facility] Comment on above: Performed By: #### L IPASE, HCGQNT, HEPATIC, BMP, CBC #### [place] [address] [place] GFR/1.73 sq M.predicted MDRD (S/P/Bld) [Vol rate/Area] mL/min/{1.73_m2} [facility] Comment on above: Performed By: #### L IPASE, HCGQNT, HEPATIC, BMP, CBC #### [facility] [address] [place] [address] [place] Glucose [Mass/Vol] 83 mg/dL Normal 70-100 [facility] Comment on above: Result Comment: [place] Glucose Reference Range is dependent on time and content of last meal. Glucose of more than 200 mg/dL in a nonstressed, ambulatory subject supports the diagnosis of Diabetes Mellitus. ADA recommended reference range Performed By: #### L IPASE, HCGQNT, HEPATIC, BMP, CBC #### [facility] [address] Potassium [Moles/Vol] 3.3 mmol/L Low 3.5-5.1 [facility] Comment on above: Performed By: #### L IPASE, HCGQNT, HEPATIC, BMP, CBC #### [facility] [address] Sodium [Moles/Vol] 133 mmol/L Low 136-145 [facility] Comment on above: Performed By: #### L IPASE, HCGQNT, HEPATIC, BMP, CBC #### [facility] [address] [place] [address] [place] Urea nitrogen [Mass/Vol] 6 mg/dL Low 7-25 [facility] Comment on above: Performed By: #### L IPASE, HCGQNT, HEPATIC, BMP, CBC #### [facility] [address] Basophils Auto (Bld) [#/Vol] Ordered By: Jacky Alarcon on 03-10-2023 Basophils (Bld) [#/Vol] 0.1 10*3/uL 0.0-0.2 [facility] Basophils/100 WBC Auto (Bld) Ordered By: Jacky Alarcon on 03-10-2023 Basophils/100 WBC (Bld) 0.4 % . [facility] Bilirubin Test strip Ql (U)O rdered By: Jacky Alarcon on 03-10-2023 Bilirubin Ql (U) Negative Negative [facility] Bilirubin.direct [Mass/volum e] in Serum or PlasmaOrdered By: Jacky Alarcon on 03-10-2023 Bilirubin.direct [Mass/Vol] 0.40 mg/dL 0.03-0.18 [facility] Bilirubin.total [Mass/volume ] in Serum or PlasmaOrdered By: Jacky Alarcon on 03-10-2023 Bilirubin [Mass/Vol] 1.2 mg/dL 0.3-1.0 [facility] Calcium [Mass/volume] in Ser um or PlasmaOrdered By: Jacky Alarcon on 03-10-2023 Calcium [Mass/Vol] 9.3 mg/dL 8.6-10.3 [facility] Carbon dioxide, total [Moles /volume] in Serum or PlasmaOrdered By: Jacky Alarcon on 03-10-2023 CO2 [Moles/Vol] 18.8 mmol/L 21.0-31.0 [facility] Chloride [Moles/volume] in S rahul or PlasmaOrdered By: Jacky Alarcon on 03-10-2023 Chloride [Moles/Vol] 101 mmol/L 98-107 [facility] Choriogonadotropin.beta subu nit [Units/volume] in Serum or PlasmaOrdered By: Jacky Alarcon on 03-10-2023 [place] [address].00 m[IU]/mL [facility] Comment on above: Approximate Approxim ate hCG Gestational Age Range (mIU/ml) (weeks)0.2-1 5-50 1-2 50-500 2-3 100-5,000 3-4 500-10,000 4-5 1,000-50,000 5-6 10,000-100,000 6-8 15,000-200,000 8-12 10,000-100,000 Color Auto (U)Ordered By: Corinna Alarcon on 03-10-2023 Color (U) Dark yellow Yellow [facility] Complete Blood Count Auto Di ffon 03-10-2023 Basophils (Bld) [#/Vol] 0.1 10*3/uL Normal 0.0-0.2 [facility] Comment on above: Result Comment: PERF ORMED BY: [facility] [address] [place] [address] PATHOLOGIST MANAGER TESTING ANDRÉS MACEDO M.D. Performed By: #### L IPASE, HCGQNT, HEPATIC, BMP, CBC #### [address] Basophils/100 WBC (Bld) 0.4 % Normal . [facility] Comment on above: Performed By: #### L IPASE, HCGQNT, HEPATIC, BMP, CBC #### [address] Eosinophils (Bld) [#/Vol] 0.1 10*3/uL Normal 0.0-0.45 [facility] Comment on above: Performed By: #### L IPASE, HCGQNT, HEPATIC, BMP, CBC #### [address] Eosinophils/100 WBC (Bld) 0.5 % Normal . [facility] Comment on above: Performed By: #### L IPASE, HCGQNT, HEPATIC, BMP, CBC #### [address] Erythrocyte distribution width (RBC) [Ratio] 13.3 % Normal 11.9-15.3 [facility] Comment on above: Performed By: #### L IPASE, HCGQNT, HEPATIC, BMP, CBC #### [address] Hematocrit (Bld) [Volume fraction] 47.2 % High 34.0-46.4 [facility] Comment on above: Performed By: #### L IPASE, HCGQNT, HEPATIC, BMP, CBC #### [address] Hemoglobin (Bld) [Mass/Vol] 16.5 g/dL High 11.8-15.4 [facility] Comment on above: Performed By: #### L IPASE, HCGQNT, HEPATIC, BMP, CBC #### [address] Lymphocytes (Bld) [#/Vol] 1.9 10*3/uL Normal 1.00-4.8 [facility] Comment on above: Performed By: #### L IPASE, HCGQNT, HEPATIC, BMP, CBC #### [address] Lymphocytes/100 WBC (Bld) 11.6 % Normal . [facility] Comment on above: Performed By: #### L IPASE, HCGQNT, HEPATIC, BMP, CBC #### [address] MCH (RBC) [Entitic mass] 30.8 pg Normal 24.7-34.3 [facility] Comment on above: Performed By: #### L IPASE, HCGQNT, HEPATIC, BMP, CBC #### [address] MCV (RBC) [Entitic vol] 87.8 fL Normal 80-100 [facility] Comment on above: Performed By: #### L IPASE, HCGQNT, HEPATIC, BMP, CBC #### [address] Mean Corpuscular HGB Conc 35.0 g/dL Normal 32.0-35.0 [facility] Comment on above: Performed By: #### L IPASE, HCGQNT, HEPATIC, BMP, CBC #### [address] Monocytes (Bld) [#/Vol] 1.4 10*3/uL High 0.0-0.8 [facility] Comment on above: Performed By: #### L IPASE, HCGQNT, HEPATIC, BMP, CBC #### [place] [address] [place] Monocytes/100 WBC (Bld) 16.05 % Normal 0.00-20.00 [facility] Comment on above: Performed By: #### L IPASE, HCGQNT, HEPATIC, BMP, CBC #### [address] Monocytes/100 WBC (Bld) 8.8 % Normal . [facility] Comment on above: Performed By: #### L IPASE, HCGQNT, HEPATIC, BMP, CBC #### [address] Neutrophils (Bld) [#/Vol] 12.6 10*3/uL High 1.8-7.7 [facility] Comment on above: Performed By: #### L IPASE, HCGQNT, HEPATIC, BMP, CBC #### [address] Neutrophils/100 WBC (Bld) 78.7 % Normal . [facility] Comment on above: Performed By: #### L IPASE, HCGQNT, HEPATIC, BMP, CBC #### [address] NRBC% 0.1 /100{WBC} Normal 0-0.5 [facility] Comment on above: Performed By: #### L IPASE, HCGQNT, HEPATIC, BMP, CBC #### [address] Platelet mean volume (Bld) [Entitic vol] 9.7 fL Normal 6.3-10.7 [facility] Comment on above: Performed By: #### L IPASE, HCGQNT, HEPATIC, BMP, CBC #### [place] [address] [place] Platelets (Bld) [#/Vol] 263 10*3/uL Normal 150-450 [facility] Comment on above: Performed By: #### L IPASE, HCGQNT, HEPATIC, BMP, CBC #### [address] RBC (Bld) [#/Vol] 5.37 10*6/uL High 3.60-5.00 [facility] Comment on above: Performed By: #### L IPASE, HCGQNT, HEPATIC, BMP, CBC #### [place] [address] [place] WBC (Bld) [#/Vol] 16.0 10*3/uL High 3.8-11.6 [facility] Comment on above: Performed By: #### L IPASE, HCGQNT, HEPATIC, BMP, CBC #### [address] [place] [address] [place] Creatinine [Mass/volume] in Serum or PlasmaOrdered By: Jacky Alarcon on 03-10-2023 Creatinine [Mass/Vol] 0.64 mg/dL 0.60-1.20 [facility] Dipstick and Microscopicon 1 05-11-2022 Appearance (U) Turbid Critically abnormal Clear [facility] Comment on above: Order Comment: Name Collection Type:: Clean-Voided Midstream Performed By: #### A DDONUAPLUS, CUU #### [place] [address] [place] Bacteria,Urine Rare High None Seen [facility] Comment on above: Order Comment: Name Collection Type:: Clean-Voided Midstream Performed By: #### A DDONUAPLUS, CUU #### [place] [address] [place] Bilirubin,Urine Negative Normal Negative [facility] Comment on above: Order Comment: Name Collection Type:: Clean-Voided Midstream Performed By: #### A DDONUAPLUS, CUU #### [place] [address] [place] Color (U) Dark Yellow Critically abnormal Yellow [facility] Comment on above: Order Comment: Name Collection Type:: Clean-Voided Midstream Performed By: #### A DDONUAPLUS, CUU #### [facility] [address] [place] [address] [place] Glucose Ql (U) Normal Normal Normal [facility] Comment on above: Order Comment: Name Collection Type:: Clean-Voided Midstream Performed By: #### A DDONUAPLUS, CUU #### [facility] [address] [place] [address] [place] Hyaline Casts,Urine 9-19 High 0-8 [facility] Comment on above: Order Comment: Name Collection Type:: Clean-Voided Midstream Result Comment: PERF ORMED BY: [place] [address] PATHOLOGIST MANAGER TESTING ANDRÉS MACEDO M.D. Performed By: #### A DDONUAPLUS, CUU #### [facility] [address] [place] [address] [place] Ketones Ql (U) 4+ High Negative [facility] Comment on above: Order Comment: Name Collection Type:: Clean-Voided Midstream Performed By: #### A DDONUAPLUS, CUU #### [address] Leukocyte esterase Test strip Ql (U) 1+ High Negative [facility] Comment on above: Order Comment: Name Collection Type:: Clean-Voided Midstream Performed By: #### A DDONUAPLUS, CUU #### [place] [address] [place] Nitrite,Urine Negative Normal Negative [facility] Comment on above: Order Comment: Name Collection Type:: Clean-Voided Midstream Performed By: #### A DDONUAPLUS, CUU #### [place] [address] [place] Occult Blood,Urine 3+ High Negative [facility] Comment on above: Order Comment: Name Collection Type:: Clean-Voided Midstream Result Comment: PERF ORMED BY: [place] [address] PATHOLOGIST MANAGER TESTING ANDRÉS MACEDO M.D. Performed By: #### A DDONUAPLUS, CUU #### [address] Othe Crystals,Urine Normal [facility] Comment on above: Order Comment: Name Collection Type:: Clean-Voided Midstream Result Comment: sulf a crystals Performed By: #### A DDONUAPLUS, CUU #### [place] [address] [place] pH (U) 6.5 [pH] Normal 5.0-9.0 [facility] Comment on above: Order Comment: Name Collection Type:: Clean-Voided Midstream Performed By: #### A DDONUAPLUS, CUU #### [place] [address] [place] Protein (U) [Mass/Vol] 100 mg/dL High Negative [facility] Comment on above: Order Comment: Name Collection Type:: Clean-Voided Midstream Performed By: #### A DDONUAPLUS, CUU #### [address] RBC,Urine 50-100 High 0-4 [facility] Comment on above: Order Comment: Name Collection Type:: Clean-Voided Midstream Performed By: #### A DDONUAPLUS, CUU #### [address] Specificy [place],Urine 1.029 Normal 1.001-1.03 0 [facility] Comment on above: Order Comment: Name Collection Type:: Clean-Voided Midstream Performed By: #### A DDONUAPLUS, CUU #### [address] Squamous Epithelial Cell,Urine 1-2 Normal 0-2 [facility] Comment on above: Order Comment: Name Collection Type:: Clean-Voided Midstream Performed By: #### A DDONUAPLUS, CUU #### [address] Urobilinogen,Urine Normal Normal Normal [facility] Comment on above: Order Comment: Name Collection Type:: Clean-Voided Midstream Performed By: #### A DDONUAPLUS, CUU #### [facility] [address] [place] [address] WBC,Urine 5-9 High 0-4 [facility] Comment on above: Order Comment: Name Collection Type:: Clean-Voided Midstream Performed By: #### A DDONUAPLUS, CUU #### [place] [address] [place] Eosinophils Auto (Bld) [#/Vo l]Ordered By: Jacky Alarcon on 03-10-2023 Eosinophils (Bld) [#/Vol] 0.1 10*3/uL 0.0-0.45 [facility] Eosinophils/100 WBC Auto (Bl d)Ordered By: Jacky Alarcon on 03-10-2023 Eosinophils/100 WBC (Bld) 0.5 % . [facility] Erythrocyte distribution wid th Auto (RBC) [Ratio]Ordered By: Jacky Alarcon on 03-10-2023 Erythrocyte distribution width (RBC) [Ratio] 13.3 % 11.9-15.3 [facility] Globulin Calc (S) [Mass/Vol] Ordered By: Jacky Alarcon on 03-10-2023 Globulin (S) [Mass/Vol] 3.5 g/dL [facility] Glucose [Mass/volume] in Ser um or PlasmaOrdered By: Jacky Alarcon on 03-10-2023 Glucose [Mass/Vol] 83 mg/dL 70-100 [facility] Comment on above: ADA recommended refe rence rangeRandom Glucose Reference Range is dependent on time and content of last meal. Glucose of more than 200 mg/dL in a nonstressed, ambulatory subject supports the diagnosis of Diabetes Mellitus. HCG ( test) IA.lamontei d Ql (U)Ordered By: Jacky Alarcon on 03-10-2023 HCG ( test) Ql (U) Positive [facility] HCG,Quantitativeon 3 HCG,Quantitative 40148.00 m[iU]/mL Normal [facility] Comment on above: Result Comment: Appr oximate Approximate hCG Gestational Age Range (mIU/ml) (weeks) 0.2-1 5-50 1-2 50-500 2-3 100-5,000 3-4 500-10,000 4-5 1,000-50,000 5-6 10,000-100,000 6-8 15,000-200,000 8-12 10,000-100,000 PERFORMED BY: [place] [address] PATHOLOGIST MANAGER TESTING ANDRÉS MACEDO M.D. Performed By: #### L IPASE, HCGQNT, HEPATIC, BMP, CBC #### [address] HCG,Urineon 03-10-2023 Beta HCG ( test) Ql (U) Positive High [facility] Comment on above: Result Comment: PERF ORMED BY: [place] [address] PATHOLOGIST MANAGER TESTING ANDRÉS MACEDO M.D. Performed By: #### U HCG #### [facility] [address] Hematocrit Auto (Bld) [Volum e fraction]Ordered By: Jacky Alarcon on 03-10-2023 Hematocrit (Bld) [Volume fraction] 47.2 % 34.0-46.4 [facility] Hemoglobin [Mass/volume] in BloodOrdered By: Jacky Alarcon on 03-10-2023 Hemoglobin (Bld) [Mass/Vol] 16.5 g/dL 11.8-15.4 [facility] Hepatic Panelon 03-10-2023 Albumin [Mass/Vol] 4.5 g/dL Normal 3.5-5.7 [facility] Comment on above: Performed By: #### L IPASE, HCGQNT, HEPATIC, BMP, CBC #### [facility] [address] Albumin/Globulin [Mass ratio] 1.3 {ratio} Normal [facility] Comment on above: Performed By: #### L IPASE, HCGQNT, HEPATIC, BMP, CBC #### [facility] [address] [place] [address] [place] ALP [Catalytic activity/Vol] 71 U/L Normal 34-104 [facility] Comment on above: Performed By: #### L IPASE, HCGQNT, HEPATIC, BMP, CBC #### [facility] [address] [place] [address] [place] ALT [Catalytic activity/Vol] 36 U/L Normal 7-52 [facility] Comment on above: Performed By: #### L IPASE, HCGQNT, HEPATIC, BMP, CBC #### [facility] [address] [place] [address] [place] AST [Catalytic activity/Vol] 17 U/L Normal 13-39 [facility] Comment on above: Performed By: #### L IPASE, HCGQNT, HEPATIC, BMP, CBC #### [facility] [address] [place] [address] [place] Bilirubin [Mass/Vol] 1.2 mg/dL High 0.3-1.0 [facility] Comment on above: Performed By: #### L IPASE, HCGQNT, HEPATIC, BMP, CBC #### [facility] [address] Bilirubin,Indirect 0.8 mg/dL Normal [facility] Comment on above: Performed By: #### L IPASE, HCGQNT, HEPATIC, BMP, CBC #### [facility] [address] Bilirubin.indirect [Mass/Vol] 0.40 mg/dL High 0.03-0.18 [facility] Comment on above: Performed By: #### L IPASE, HCGQNT, HEPATIC, BMP, CBC #### [facility] [address] Globulin (S) [Mass/Vol] 3.5 g/dL Normal [facility] Comment on above: Performed By: #### L IPASE, HCGQNT, HEPATIC, BMP, CBC #### [facility] [address] Protein [Mass/Vol] 8.0 g/dL Normal 6.4-8.9 [facility] Comment on above: Performed By: #### L IPASE, HCGQNT, HEPATIC, BMP, CBC #### [facility] [address] Ketones Auto test strip (U) [Mass/Vol]Ordered By: Jacky Alarcon on 03-10-2023 Ketones (U) [Mass/Vol] 4+ Negative [facility] - UrinalysisOrder ed By: Jacky Alarcon on 03-10-2023 Hyaline casts LM Ql (Urine sed) 9-19 [LPF] 0-8 [facility] Leukocytes [#/volume] correc anabell for nucleated erythrocytes in Blood by Automated counOrdered By: Jacky Alarcon on 03-10-2023 WBC corrected for nucl RBC Auto (Bld) [#/Vol] 16.0 10*3/uL 3.8-11.6 [facility] Lipaseon 03-10-2023 Lipase [Catalytic activity/Vol] 35.0 U/L Normal 11.0-82.0 [facility] Comment on above: Result Comment: PERF ORMED BY: [facility] [address] [place] [address] PATHOLOGIST MANAGER TESTING ANDRÉS MACEDO M.D. Performed By: #### L IPASE, HCGQNT, HEPATIC, BMP, CBC #### [facility] [address] Lipase [Enzymatic activity/v olume] in Serum or PlasmaOrdered By: Jacky Alarcon on 03-10-2023 Lipase [Catalytic activity/Vol] 35.0 U/L 11.0-82.0 [facility] Lymphocytes Auto (Bld) [#/Vo l]Ordered By: Jacky Alarcon on 03-10-2023 Lymphocytes (Bld) [#/Vol] 1.9 10*3/uL 1.00-4.8 [facility] Lymphocytes/100 WBC Auto (Bl d)Ordered By: Jacky Alarcon on 03-10-2023 Lymphocytes/100 WBC (Bld) 11.6 % . [facility] MCH Auto (RBC) [Entitic mass ]Ordered By: Jacky Alarcon on 03-10-2023 MCH (RBC) [Entitic mass] 30.8 pg 24.7-34.3 [facility] MCHC Auto (RBC) [Mass/Vol]Or dered By: Jacky Alarcon on 03-10-2023 MCHC (RBC) [Mass/Vol] 35.0 g/dL 32.0-35.0 [facility] MCV Auto (RBC) [Entitic vol] Ordered By: Jacky Alarcon on 03-10-2023 MCV (RBC) [Entitic vol] 87.8 fL 80-100 [facility] Monocyte distribution width [Entitic volume] in Blood by AutomatedOrdered By: Jacky Alarcon on 03-10-2023 Monocyte distribution width Auto (Bld) [Entitic vol] 16.05 % 0.00-20.00 [facility] Monocytes Auto (Bld) [#/Vol] Ordered By: Jacky Alarcon on 03-10-2023 Monocytes (Bld) [#/Vol] 1.4 10*3/uL 0.0-0.8 [facility] Monocytes/100 WBC Auto (Bld) Ordered By: Jacky Alarcon on 03-10-2023 Monocytes/100 WBC (Bld) 8.8 % . [facility] Neutrophils Auto (Bld) [#/Vo l]Ordered By: Jacky Alarcon on 03-10-2023 Neutrophils (Bld) [#/Vol] 12.6 10*3/uL 1.8-7.7 [facility] Neutrophils/100 WBC Auto (Bl d)Ordered By: Jacky Alarcon on 03-10-2023 Neutrophils/100 WBC (Bld) 78.7 % . [facility] Nitrite Test strip Ql (U)Ord ered By: Jacky Alarcon on 03-10-2023 Nitrite Ql (U) Negative Negative [facility] No Panel InformationOrdered By: Jacky Alarcon on 03-10-2023 Estimated GFR (CKD-EPI) > 60.0 mL/Min [facility] Creatinine Clearance (Chem 148.58 [facility] Nucleated erythrocytes [Pres ence] in Blood by Automated countOrdered By: Jacky Alarcon on 03-10-2023 Nucleated RBC Auto Ql (Bld) 0.1 /100{WBC} 0-0.5 [facility] Platelet mean volume Auto (B ld) [Entitic vol]Ordered By: Jacky Alarcon on 03-10-2023 Platelet mean volume (Bld) [Entitic vol] 9.7 fL 6.3-10.7 [facility] Platelets Auto (Bld) [#/Vol] Ordered By: Jacky Alarcon on 03-10-2023 Platelets (Bld) [#/Vol] 263 10*3/uL 150-450 [facility] Potassium [Moles/volume] in Serum or PlasmaOrdered By: Jacky Alarcon on 03-10-2023 Potassium [Moles/Vol] 3.3 mmol/L 3.5-5.1 [facility] Protein Auto test strip (U) [Mass/Vol]Ordered By: Jacky Alarcon on 03-10-2023 Protein (U) [Mass/Vol] 100 mg/dL Negative [facility] Protein [Mass/volume] in Ser um or PlasmaOrdered By: Jacky Alarcon on 03-10-2023 Protein [Mass/Vol] 8.0 g/dL 6.4-8.9 [facility] RBC Auto (Bld) [#/Vol]Ordere d By: Jacky Alarcon on 03-10-2023 RBC (Bld) [#/Vol] 5.37 10*6/uL 3.60-5.00 [facility] Serum or plasma albumin/glob ulin mass ratioOrdered By: Jacky Alarcon on 03-10-2023 Albumin/Globulin [Mass ratio] 1.3 {ratio} [facility] Serum or plasma anion gap de terminationOrdered By: Jacky Alarcon on 03-10-2023 Anion gap [Moles/Vol] 16.5 mmol/L 6.0-15.0 [facility] Serum or plasma non-glucuron idated bilirubin measurement (mass/volume)Ordered By: Jacky Alarcon on 03-10-2023 Bilirubin.indirect [Mass/Vol] 0.8 mg/dL [facility] Sodium [Moles/volume] in Ser um or PlasmaOrdered By: Jacky Alarcon on 03-10-2023 Sodium [Moles/Vol] 133 mmol/L 136-145 [facility] Specific gravity Auto test s trip (U) [Rel density]Ordered By: Jacky Alarcon on 03-10-2023 Specific gravity (U) [Rel density] 1.029 1.001-1.03 0 [facility] Squamous epithelial cells de tection in urine sediment by light microscopyOrdered By: Jacky Alarcon on 03-10-2023 Epithelial cells.squamous LM Ql (Urine sed) 1-2 [HPF] 0-2 [facility] Urea nitrogen [Mass/volume] in Serum or PlasmaOrdered By: Jacky Alarcon on 03-10-2023 Urea nitrogen [Mass/Vol] 6 mg/dL 7-25 [facility] Urine Cultureon 03-10-2023 Bacteria identified Cx Nom (U) >100,000 colonies/ml mixed bacterial skin contaminants 2 Days PERFORMED BY: [facility] [address] [place] [address] PATHOLOGIST MANAGER TESTING ANDRÉS MACEDO M.D. Normal [facility] Comment on above: Performed By: #### A JOHN BACON #### [facility] [address] Urine bacteria detection by automated methodOrdered By: Jacky Alarcon on 03-10-2023 Bacteria Auto Ql (U) Rare None Seen [facility] Urine clarity by refractomet ry automatedOrdered By: Jacky Alarcon on 03-10-2023 Clarity Refractometry automated (U) Turbid Clear [facility] Urine glucose measurement by automated test strip (mass/volume)Ordered By: Jacky Alarcon on 03-10-2023 Glucose Auto test strip (U) [Mass/Vol] Normal mg/dL Normal [facility] Urine hemoglobin detection b y automated test stripOrdered By: Jacky Alarcon on 03-10-2023 Hemoglobin Auto test strip Ql (U) 3+ Negative [facility] Urine leukocyte esterase det ection by automated test stripOrdered By: Jacky Alarcon on 03-10-2023 Leukocyte esterase Auto test strip Ql (U) 1+ Negative [facility] Urine sediment crystal ident ification by light microscopyOrdered By: Jacky Alarcon on 03-10-2023 Crystals LM Nom (Urine sed) See comment [facility] Comment on above: sulfa crystals Urobilinogen Auto test strip (U) [Mass/Vol]Ordered By: Jacky Alarcon on 03-10-2023 Urobilinogen (U) [Mass/Vol] Normal mg/dL Normal [facility] WBC Auto (Bld) [#/Vol]Ordere d By: Jacky Alarcon on 03-10-2023 WBC (Bld) [#/Vol] 16.0 10*3/uL 3.8-11.6 [facility] pH Auto test strip (U)Ordere d By: Jacky Alarcon on 03-10-2023 pH (U) 6.5 [pH] 5.0-9.0 [facility] CBC AUTO DIFFon 07-30-2022 BASO # 0.1 103/ul Normal 0.0-0.1 [facility] Comment on above: Performed By: #### G TT3P #### [facility] [address] [place], [place] [address] Dr. Jackelyn Celestin Basophils/100 WBC (Bld) 0.6 % Normal 0.2-2.0 [facility] Comment on above: Performed By: #### G TT3P #### [facility] [address] [place] [address] Dr. Jackelyn Celestin EO # 0.2 103/ul Normal 0.0-0.7 [facility] Comment on above: Performed By: #### G TT3P #### [facility] [address] [place] [address] Dr. Jackelyn Celestin Eosinophils/100 WBC (Bld) 1.5 % Normal 0.9-7.0 [facility] Comment on above: Performed By: #### G TT3P #### [facility] [address] [place] [address] Dr. Jackelyn Celestin Erythrocyte distribution width (RBC) [Ratio] 14.5 % Normal 11.0-15.0 [facility] Comment on above: Performed By: #### G TT3P #### [facility] [address] [place] [address] Dr. Jackelyn Celestin Hematocrit (Bld) [Volume fraction] 33.9 % Critically low 36.0-48.0 [facility] Comment on above: Performed By: #### G TT3P #### [facility] [address] [place] [address] Dr. Jackelyn Celestin Hemoglobin (Bld) [Mass/Vol] 11.0 g/dL Critically low 12.0-16.0 [facility] Comment on above: Performed By: #### G TT3P #### [facility] [address] [place] [address] Dr. Jackelyn Celestin IG # 0.13 10e3/ul Critically high 0.00-0.03 [facility] Comment on above: Performed By: #### G TT3P #### [facility] [address] [place] [address] Dr. Jackelyn Celestin IG % 1.1 % Critically high 0.0-0.5 [facility] Comment on above: Performed By: #### G TT3P #### [facility] [address] [place] [address] Dr. Jackelyn Celestin LYMPH # 2.2 103/ul Normal 1.2-3.8 [facility] Comment on above: Performed By: #### G TT3P #### [facility] [address] [place] [address] Dr. Jackelyn Celestin Lymphocytes/100 WBC (Bld) 17.9 % Critically low 20.5-60.0 [facility] Comment on above: Performed By: #### G TT3P #### [facility] [address] [place] [address] Dr. Jackelyn Celestin MANUAL DIFF REQ NO Normal [facility] Comment on above: Performed By: #### G TT3P #### [facility] [address] [place] [address] Dr. Jackelyn Celestin MCH (RBC) [Entitic mass] 28.6 pg Normal 26.7-34.0 [facility] Comment on above: Performed By: #### G TT3P #### [facility] [address] [place] [address] Dr. Jackelyn Celestin MCHC (RBC) [Mass/Vol] 32.4 g/dL Normal 29.9-35.2 [facility] Comment on above: Performed By: #### G TT3P #### [facility] [address] [place] [address] Dr. Jackelyn Celestin MCV (RBC) [Entitic vol] 88.1 fL Normal 81.0-99.0 [facility] Comment on above: Performed By: #### G TT3P #### [facility] [address] [place] [address] Dr. Jackelyn Celestin MONO # 0.8 103/ul Normal 0.3-0.8 [facility] Comment on above: Performed By: #### G TT3P #### [facility] [address] [place] [address] Dr. Jackelyn Celestin Monocytes/100 WBC (Bld) 6.9 % Normal 1.7-12.0 [facility] Comment on above: Performed By: #### G TT3P #### [facility] [address] [place] [address] Dr. Jackelyn Celestin NEUT # 8.7 103/ul Critically high 1.4-6.5 [facility] Comment on above: Performed By: #### G TT3P #### [facility] [address] [place] [address] Dr. Jackelyn Celestin Neutrophils/100 WBC (Bld) 72.0 % Normal 43.0-75.0 [facility] Comment on above: Performed By: #### G TT3P #### [facility] [address] [place] [address] Dr. Jackelyn Celestin Platelet mean volume (Bld) [Entitic vol] 11.5 fL Normal 9.5-13.5 [facility] Comment on above: Performed By: #### G TT3P #### [facility] [address] [place] [address] Dr. Jackelyn Celestin PLT 146 103/ul Critically low 150-450 [facility] Comment on above: Performed By: #### G TT3P #### [facility] [address] [place] [address] Dr. Jackelyn Celestin RBC 3.85 106/ul Critically low 4.20-5.40 [facility] Comment on above: Performed By: #### G TT3P #### [facility] [address] [place] [address] Dr. Jackelyn Celestin WBC 12.1 103/ul Critically high 4.0-11.0 [facility] Comment on above: Performed By: #### G TT3P #### [facility] [address] [place] [address] Dr. Jackelyn Celestin CBC AUTO DIFFon 07-29-2022 BASO # 0.0 103/ul Normal 0.0-0.1 [facility] Comment on above: Performed By: #### [id number] #### [facility] [address] [place] [address] Dr. Jackelyn Celestin Basophils/100 WBC (Bld) 0.4 % Normal 0.2-2.0 [facility] Comment on above: Performed By: #### 4 [id number] #### [facility] [address] [place] [address] Dr. Jackelyn Celestin EO # 0.2 103/ul Normal 0.0-0.7 [facility] Comment on above: Performed By: #### [id number] #### [facility] [address] [place] [address] Dr. Jackelyn Celestin Eosinophils/100 WBC (Bld) 1.4 % Normal 0.9-7.0 [facility] Comment on above: Performed By: #### 4 [id number] #### [facility] [address] [place] [address] Dr. Jackelyn Celestin Erythrocyte distribution width (RBC) [Ratio] 14.1 % Normal 11.0-15.0 [facility] Comment on above: Performed By: #### 4 [id number] #### [facility] [address] [place] [address] Dr. Jackelyn Celestin Hematocrit (Bld) [Volume fraction] 36.0 % Normal 36.0-48.0 [facility] Comment on above: Performed By: #### 4 [id number] #### [facility] [address] [place] [address] Dr. Jackelyn Celestin Hemoglobin (Bld) [Mass/Vol] 12.2 g/dL Normal 12.0-16.0 [facility] Comment on above: Performed By: #### 4 [id number] #### [facility] [address] [place] [address] Dr. Jackelyn Celestin IG # 0.10 10e3/ul Critically high 0.00-0.03 [facility] Comment on above: Performed By: #### 4 [id number] #### [facility] [address] [place] [address] Dr. Jackelyn Celestin IG % 0.9 % Critically high 0.0-0.5 [facility] Comment on above: Performed By: #### 4 [id number] #### [facility] [address] [place] [address] Dr. Jackelyn Celestin LYMPH # 1.9 103/ul Normal 1.2-3.8 [facility] Comment on above: Performed By: #### [id number] #### [facility] [address] [place] [address] Dr. Jackelyn Celestin Lymphocytes/100 WBC (Bld) 17.7 % Critically low 20.5-60.0 [facility] Comment on above: Performed By: #### 4 [id number] #### [facility] [address] [place] [address] Dr. Jackelyn Celestin MANUAL DIFF REQ NO Normal [facility] Comment on above: Performed By: #### 4 [id number] #### [facility] [address] [place] [address] Dr. Jackelyn Celestin MCH (RBC) [Entitic mass] 28.8 pg Normal 26.7-34.0 [facility] Comment on above: Performed By: #### [id number] #### [facility] [address] [place] [address] Dr. Jackelyn Celestin MCHC (RBC) [Mass/Vol] 33.9 g/dL Normal 29.9-35.2 [facility] Comment on above: Performed By: #### [id number] #### [facility] [address] [place] [address] Dr. Jackelyn Celestin MCV (RBC) [Entitic vol] 84.9 fL Normal 81.0-99.0 [facility] Comment on above: Performed By: #### 4 [id number] #### [facility] [address] [place] [address] Dr. Jackelyn Celestin MONO # 0.9 103/ul Critically high 0.3-0.8 [facility] Comment on above: Performed By: #### 4 [id number] #### [facility] [address] [place] [address] Dr. Jackelyn Celestin Monocytes/100 WBC (Bld) 8.4 % Normal 1.7-12.0 [facility] Comment on above: Performed By: #### 4 [id number] #### [facility] [address] [place] [address] Dr. Jackelyn Celestin NEUT # 7.7 103/ul Critically high 1.4-6.5 [facility] Comment on above: Performed By: #### 4 [id number] #### [facility] [address] [place] [address] Dr. Jackelyn Celestin Neutrophils/100 WBC (Bld) 71.2 % Normal 43.0-75.0 [facility] Comment on above: Performed By: #### [id number] #### [facility] [address] [place] [address] Dr. Jackelyn Celestin Platelet mean volume (Bld) [Entitic vol] 10.9 fL Normal 9.5-13.5 [facility] Comment on above: Performed By: #### 4 [id number] #### [facility] [address] [place] [address] Dr. Jackelyn Celestin PLT 170 103/ul Normal 150-450 [facility] Comment on above: Performed By: #### 4 [id number] #### [facility] [address] [place] [address] Dr. Jackelyn Celestin RBC 4.24 106/ul Normal 4.20-5.40 [facility] Comment on above: Performed By: #### 4 [id number] #### [facility] [address] [place] [address] Dr. Jackelyn Celestin WBC 10.8 103/ul Normal 4.0-11.0 [facility] Comment on above: Performed By: #### 4 [id number] #### [facility] [address] [place] [address] Dr. Jackelyn Celestin DRUG SCREEN RAPID (URINE)on 07-29-2022 AMP Negative Normal NEGATIVE [facility] Comment on above: Performed By: #### [id number] #### [facility] [address] [place] [address] Dr. Jackelyn Celestin BAR Negative Normal NEGATIVE [facility] Comment on above: Performed By: #### 4 [id number] #### [facility] [address] [place] [address] Dr. Jackelyn Celestin BUP Negative Normal NEGATIVE [facility] Comment on above: Performed By: #### 4 [id number] #### [facility] [address] [place] [address] Dr. Jackleyn Celestin BZO Negative Normal NEGATIVE [facility] Comment on above: Performed By: #### [id number] #### [facility] [address] [place] [address] Dr. Jackelyn Celestin HOMERO Negative Normal NEGATIVE [facility] Comment on above: Performed By: #### [id number] #### [facility] [address] [place] [address] Dr. Jackelyn Celestin CUT-OFFS SEE BELOW Normal [facility] Comment on above: Result Comment: AMP (Amphetamine): 500ng/mL, BAR (Barbituates): 200 ng/mL, BZO (Benzodiazepines): 150 ng/mL, BUP (Buprenorphine): 10 ng/mL, HOMERO (Cocaine): 150 ng/mL, mAMP (Methamphetamine): 500 ng/mL, MTD (Methadone): 200 ng/mL, OPI (Opiates): 100 ng/mL, OXY (Oxycodone): 100 ng/mL, PCP (Phencyclidine): 25 ng/mL, PPX (Propoxyphene): 300 ng/mL, THC (Cannabinoids): 50 ng/mL, TCA (Trycyclic Antidepressants): 300 ng/mL Performed By: #### [id number] #### [facility] [address] [place] [address] Dr. Jackelyn Celestin DRUG CUT HEADER DRUG CLASS TEST SYST EM CUT-OFF CONCENTRATIONS ARE FOLLOWS: Normal [facility] Comment on above: Performed By: #### 4 [id number] #### [facility] [address] [place] [address] Dr. Jackelyn Celestin mAMP Negative Normal NEGATIVE [facility] Comment on above: Performed By: #### [id number] #### [facility] [address] [place] [address] Dr. Jackelyn Celestin MTD Negative Normal NEGATIVE [facility] Comment on above: Performed By: #### 4 [id number] #### [facility] [address] [place] [address] Dr. Jackelyn Celestin OPI Negative Normal NEGATIVE [facility] Comment on above: Performed By: #### 4 [id number] #### [facility] [address] [place] [address] Dr. Jackelyn Celestin OXY Negative Normal NEGATIVE [facility] Comment on above: Performed By: #### 4 [id number] #### [facility] [address] [place] [address] Dr. Jackelyn Celestin PCP Negative Normal NEGATIVE [facility] Comment on above: Performed By: #### 4 [id number] #### [facility] [address] [place] [address] Dr. Jackelyn Celestin PPX Negative Normal NEGATIVE [facility] Comment on above: Performed By: #### 4 [id number] #### [facility] [address] [place] [address] Dr. Jackelyn Celestin TCA Negative Normal NEGATIVE [facility] Comment on above: Performed By: #### 4 [id number] #### [facility] [address] [place] [address] Dr. Jackelyn Celestin THC Negative Normal NEGATIVE [facility] Comment on above: Performed By: #### 4 [id number] #### [facility] [address] [place] [address] Dr. Jackelyn Celestin TYPE AND SCREENon 07-29-2022 TYPE AND SCREEN Negative Normal [facility] Comment on above: Performed By: #### G TT3P #### [facility] [address] [place] [address] Dr. Jackelyn Celestin US PREG GROWTHon 07-25-2022 US PREG GROWTH EXAMINATION: [...] TRISTAN HART Date: 2022-07-24 22:37 Normal [facility] GROUP B STREP CULTUREon 06-09 S. agalactiae Ag Ql (Unsp spec) Culture Observations: NEGATIVE FOR GROUP B STREPTOCOCCUS. Normal [facility] Comment on above: Performed By: #### G TT3P #### [facility] [address] [address] [address] Jackelyn Celestin US PREG GROWTHon 06-06-2022 US PREG GROWTH EXAMINATION: [...] by: TRISTAN HART Date: 2022-06-06 15:39 Normal [facility] GTT 3 HR PREGon 05-21-2022 Glucose [Mass/Vol] 91 mg/dL Normal 74-106 [facility] Comment on above: Performed By: #### G TT3P #### [facility] [address] [address] [address] Jackelyn Celestin Glucose [Mass/Vol] 168 mg/dL Normal [facility] Comment on above: Performed By: #### G TT3P #### [facility] [address] [address] [address] Jackelyn Celestin Glucose [Mass/Vol] 121 mg/dL Normal [facility] Comment on above: Performed By: #### G TT3P #### [facility] [address] [place] [address] Dr. Jackelyn Celestin Glucose [Mass/Vol] 86 mg/dL [facility] Comment on above: Performed By: #### G TT3P #### [facility] [address] [place] [address] Dr. Jackelyn Celestin PAP ACOG PANEL 2: 21 to 29on 05-17-2022 . . Normal [facility] Comment on above: Performed By: #### 4 [id number] #### [facility] [address] [place] [address] Dr. Jackelyn Celestin DIAGNOSIS: Comment [facility] Comment on above: Result Comment: NEGA TIVE FOR INTRAEPITHELIAL LESION OR MALIGNANCY. Performed By: #### 4 [id number] #### [facility] [address] [place] [address] Dr. Jackelyn Celestin Methodology: Comment [facility] Comment on above: Result Comment: This liquid based ThinPrep(R) pap test was screened with the use of an image guided system. Performed By: #### 4 [id number] #### [facility] [address] [place] [address] Dr. Jackelyn Celestin Note: Comment [facility] Comment on above: Result Comment: The Pap smear is a screening test designed to aid in the detection of premalignant and malignant conditions of the uterine cervix. It is not a diagnostic procedure and should not be used as the sole means of detecting cervical cancer. Both false-positive and false-negative reports do occur. . Performed By: #### 4 [id number] #### [facility] [address] [place] [address] Dr. Jackelyn Celestin Performed by: Comment [facility] Comment on above: Result Comment: Alphonso [employer] (ASCP) Performed By: #### 4 [id number] #### [facility] [address] [place] [address] Dr. Jackelyn Celestin Reflex Criteria: Comment [facility] Comment on above: Result Comment: The HPV DNA reflex criteria were not met with this specimen result therefore, no HPV testing was performed. . Performed By: #### 4 [id number] #### [facility] [address] [place] [address] Dr. Jackelyn Celestin Specimen adequacy: Comment Normal [facility] Comment on above: Result Comment: Sati sfactory for evaluation. No endocervical component is identified. Performed By: #### 4 [id number] #### [facility] [address] [place] [address] Dr. Jackelyn Celestin Age Gdln ACOG Testing 21-29 Normal [facility] Comment on above: Performed By: #### 4 [id number] #### [facility] [address] [place] [address] Dr. Jackelyn Celestin CHLAMYDIA/GONOCOCCUS ALONDRA ( AB/URINE/PAPon 05-14-2022 Chlamydia trachomatis, ALONDRA Negative Normal Negative [facility] Comment on above: Performed By: #### G TT3P #### [facility] [address] [place] [address] Dr. Jackelyn Celestin Neisseria gonorrhoeae, ALONDRA Negative Normal Negative [facility] Comment on above: Performed By: #### G TT3P #### [facility] [address] [place] [address] Dr. Jackelyn Celestin VAGINITIS/VAGINOSIS DNA PROB Dean 05-13-2022 Thao species Negative Normal Negative [facility] Comment on above: Performed By: #### 4 [id number] #### [facility] [address] [place] [address] Dr. Jackelyn Celestin Gardnerella vaginalis Negative Normal Negative [facility] Comment on above: Performed By: #### 4 [id number] #### [facility] [address] [place] [address] Dr. Jackelyn Celestin Trichomonas vaginalis Negative Normal Negative [facility] Comment on above: Performed By: #### 4 [id number] #### [facility] [address] [place] [address] Dr. Jackelyn Celestin CBC AUTO DIFFon 05-09-2022 BASO # 0.0 103/ul Normal 0.0-0.1 [facility] Comment on above: Performed By: #### C BC #### [facility] [address] [place] [address] Dr. Jackelyn Celestin Basophils/100 WBC (Bld) 0.3 % Normal 0.2-2.0 [facility] Comment on above: Performed By: #### C BC #### [facility] [address] [place] [address] Dr. Jackelyn Celestin EO # 0.1 103/ul Normal 0.0-0.7 [facility] Comment on above: Performed By: #### C BC #### [facility] [address] [place] [address] Dr. Jackelyn Celestin Eosinophils/100 WBC (Bld) 1.2 % Normal 0.9-7.0 [facility] Comment on above: Performed By: #### C BC #### [facility] [address] [place] [address] Dr. Jackelyn Celestin Erythrocyte distribution width (RBC) [Ratio] 11.9 % Normal 11.0-15.0 [facility] Comment on above: Performed By: #### C BC #### [facility] [address] [place] [address] Dr. Jackelyn Celestin Hematocrit (Bld) [Volume fraction] 33.7 % Critically low 36.0-48.0 [facility] Comment on above: Performed By: #### C BC #### [facility] [address] [place] [address] Dr. Jackelyn Celestin Hemoglobin (Bld) [Mass/Vol] 12.0 g/dL Normal 12.0-16.0 [facility] Comment on above: Performed By: #### C BC #### [facility] [address] [place] [address] Dr. Jackelyn Celestin IG # 0.07 10e3/ul Critically high 0.00-0.03 [facility] Comment on above: Performed By: #### C BC #### [facility] [address] [place] [address] Dr. Jackelyn Celestin IG % 0.6 % Critically high 0.0-0.5 [facility] Comment on above: Performed By: #### C BC #### [facility] [address] [place] [address] Dr. Jackelyn Celestin LYMPH # 1.3 103/ul Normal 1.2-3.8 [facility] Comment on above: Performed By: #### C BC #### [facility] [address] [place] [address] Dr. Jackelyn Celestin Lymphocytes/100 WBC (Bld) 11.5 % Critically low 20.5-60.0 [facility] Comment on above: Performed By: #### C BC #### [facility] [address] [place] [address] Dr. Jackelyn Celestin MANUAL DIFF REQ NO Normal [facility] Comment on above: Performed By: #### C BC #### [facility] [address] [place] [address] Dr. Jackelyn Celestin MCH (RBC) [Entitic mass] 31.0 pg Normal 26.7-34.0 [facility] Comment on above: Performed By: #### C BC #### [facility] [address] [place] [address] Dr. Jackelyn Celestin MCHC (RBC) [Mass/Vol] 35.6 g/dL Critically high 29.9-35.2 [facility] Comment on above: Performed By: #### C BC #### [facility] [address] [place] [address] Dr. Jackelyn Celestin MCV (RBC) [Entitic vol] 87.1 fL Normal 81.0-99.0 [facility] Comment on above: Performed By: #### C BC #### [facility] [address] [place] [address] Dr. Jackelyn Celestin MONO # 0.5 103/ul Normal 0.3-0.8 [facility] Comment on above: Performed By: #### C BC #### [facility] [address] [place] [address] Dr. Jackelyn Celestin Monocytes/100 WBC (Bld) 4.8 % Normal 1.7-12.0 [facility] Comment on above: Performed By: #### C BC #### [facility] [address] [address] [address] Jackelyn Celestin NEUT # 8.9 103/ul Critically high 1.4-6.5 [facility] Comment on above: Performed By: #### C BC #### [facility] [address] [place] [address] Dr. Jackelyn Celestin Neutrophils/100 WBC (Bld) 81.6 % Critically high 43.0-75.0 [facility] Comment on above: Performed By: #### C BC #### [facility] [address] [place] [address] Dr. Jackelyn Celestin Platelet mean volume (Bld) [Entitic vol] 11.3 fL Normal 9.5-13.5 [facility] Comment on above: Performed By: #### C BC #### [facility] [address] [place] [address] Dr. Jackelyn Celestin PLT 171 103/ul Normal 150-450 [facility] Comment on above: Performed By: #### C BC #### [facility] [address] [place] [address] Dr. Jackelyn Celestin RBC 3.87 106/ul Critically low 4.20-5.40 [facility] Comment on above: Performed By: #### C BC #### [facility] [address] [place] [address] Dr. Jackelyn Celestin WBC 10.9 103/ul Normal 4.0-11.0 [facility] Comment on above: Performed By: #### C BC #### [facility] [address] [place] [address] Dr. Jackelyn Celestin GLUCOSE - 1HRon 05-09-2022 Glucose [Mass/Vol] 142 mg/dL Critically high 74-106 [facility] Comment on above: Performed By: #### 4 [id number] #### [facility] [address] [place] [address] Dr. Jackelyn Celestin US PREG BIOPHY W [...] by: TRISTAN HART Date: 2022-05-09 10:35 Normal [facility] US PREG PLACENTAon 3 US PREG PLACENTA EXAMINATION: US PREG PLACENTA HISTORY: Falls ; mild cramping after falling COMPARISON: Ultrasound anatomy 03/17/2022 FINDINGS: PLACENTA: Posterior without previa, subchorionic hematoma, or abruption. CERVIX LENGTH: Not evaluated. HEART RATE: 158 bpm OTHER: None. IMPRESSION: 1. Unremarkable posterior placenta. No suspicious findings. Electronically authenticated by: TRISTAN HART Date: 2022-05-09 10:29 Normal [facility] US PREG ANATOMY SINGLEon US PREG [...] by: TRISTAN HART Date: 2022-03-17 16:29 Normal [facility] HEP B SURFACE ANTIGEN SCREEN on 02-15-2022 HBsAg Screen Negative Normal Negative [facility] Comment on above: Performed By: #### 4 [id number] #### [facility] [address] [place] [address] Dr. Jackelyn Celestin HEPATITIS C VIRUS AB W/ REFL EX QUANTon 02-15-2022 HCV AB <0.1 Normal 0.0-0.9 [facility] Comment on above: Performed By: #### H CVPCRR #### [facility] [address] [place] [address] Dr. Jackelyn Celestin Interpretation: Comment Normal [facility] Comment on above: Result Comment: Nega tive Not infected with HCV, unless recent infection is suspected or other evidence exists to indicate HCV infection. Performed By: #### H CVPCRR #### [facility] [address] [place] [address] Dr. Jackelyn Celestin HIV 1 AND 2 WITH REFLEXon HIV Screen 4th Generation wRfx Non-Reactive Normal Non Reactive [facility] Comment on above: Result Comment: HIV Negative HIV-1/HIV-2 antibodies and HIV-1 p24 antigen were NOT detected. There is no laboratory evidence of HIV infection. Performed By: #### H IV12 #### [facility] [address] [place] [address] Dr. Jackelyn Celestin RPR QUANTon 02-15-2022 Rapid Plasma Reagin, Quant Non-Reactive Normal NonRea<1:1 [facility] Comment on above: Result Comment: Plea se Note: This test does not meet current guidelines for screening and diagnosis of syphilis. This test is intended for following treatment response in patients being treated for syphilis infection. To screen for syphilis infection, a reflex cascade that includes both RPR and a treponema-specific assay should be utilized, such as Treponema pallidum (Syphilis) Screening [place] (504517) or Rapid Plasma Reagin (RPR) Test With Reflex to Quantitative RPR and Confirmatory Treponema pallidum Antibodies (776378). Performed By: #### R PRQ #### [facility] [address] [place] [address] Dr. Jackelyn Celestin RUBELLA AB IGGon 02-15-2022 Rubella Antibodies, IgG 1.97 index Normal Immune >0.99 [facility] Comment on above: Result Comment: Non- immune <0.90 Equivocal 0.90 - 0.99 Immune >0.99 Performed By: #### R UBIGG #### [facility] [address] [place] [address] Dr. Jackelyn Celestin CBC AUTO DIFFon 02-12-2022 BASO # 0.0 103/ul Normal 0.0-0.1 [facility] Comment on above: Performed By: #### C BC #### [facility] [address] [place] [address] Dr. Jackelyn Celestin Basophils/100 WBC (Bld) 0.4 % Normal 0.2-2.0 [facility] Comment on above: Performed By: #### C BC #### [facility] [address] [place] [address] Dr. Jackelyn Celestin EO # 0.2 103/ul Normal 0.0-0.7 [facility] Comment on above: Performed By: #### C BC #### [facility] [address] [place] [address] Dr. Jackelyn Celestin Eosinophils/100 WBC (Bld) 2.0 % Normal 0.9-7.0 [facility] Comment on above: Performed By: #### C BC #### [facility] [address] [place] [address] Dr. Jackelyn Celestin Erythrocyte distribution width (RBC) [Ratio] 12.8 % Normal 11.0-15.0 [facility] Comment on above: Performed By: #### C BC #### [facility] [address] [place] [address] Dr. Jackelyn Celestin Hematocrit (Bld) [Volume fraction] 40.7 % Normal 36.0-48.0 [facility] Comment on above: Performed By: #### C BC #### [facility] [address] [place] [address] Dr. Jackelyn Celestin Hemoglobin (Bld) [Mass/Vol] 14.4 g/dL Normal 12.0-16.0 [facility] Comment on above: Performed By: #### C BC #### [facility] [address] [place] [address] Dr. Jackelyn Celestin IG # 0.05 10e3/ul Critically high 0.00-0.03 [facility] Comment on above: Performed By: #### C BC #### [facility] [address] [place] [address] Dr. Jackelyn Celestin IG % 0.4 % Normal 0.0-0.5 [facility] Comment on above: Performed By: #### C BC #### [facility] [address] [place] [address] Dr. Jackelyn Celestin LYMPH # 1.7 103/ul Normal 1.2-3.8 [facility] Comment on above: Performed By: #### C BC #### [facility] [address] [place] [address] Dr. Jackelyn Celestin Lymphocytes/100 WBC (Bld) 15.1 % Critically low 20.5-60.0 [facility] Comment on above: Performed By: #### C BC #### [facility] [address] [place] [address] Dr. Jackelyn Celestin MANUAL DIFF REQ NO Normal [facility] Comment on above: Performed By: #### C BC #### [facility] [address] [place] [address] Dr. Jackelyn Celestin MCH (RBC) [Entitic mass] 31.2 pg Normal 26.7-34.0 [facility] Comment on above: Performed By: #### C BC #### [facility] [address] [place] [address] Dr. Jackelyn Celestin MCHC (RBC) [Mass/Vol] 35.4 g/dL Critically high 29.9-35.2 [facility] Comment on above: Performed By: #### C BC #### [facility] [address] [address] [address] Jackelyn Celestin MCV (RBC) [Entitic vol] 88.1 fL Normal 81.0-99.0 [facility] Comment on above: Performed By: #### C BC #### [facility] [address] [address] [address] Jackelyn Celestin MONO # 0.4 103/ul Normal 0.3-0.8 [facility] Comment on above: Performed By: #### C BC #### [facility] [address] [address] [address] Jackelyn Celestin Monocytes/100 WBC (Bld) 3.3 % Normal 1.7-12.0 [facility] Comment on above: Performed By: #### C BC #### [facility] [address] [place] [address] Dr. Jackelyn Celestin NEUT # 8.8 103/ul Critically high 1.4-6.5 [facility] Comment on above: Performed By: #### C BC #### [facility] [address] [place] [address] Dr. Jackelyn Celestin Neutrophils/100 WBC (Bld) 78.8 % Critically high 43.0-75.0 [facility] Comment on above: Performed By: #### C BC #### [facility] [address] [place] [address] Dr. Jackelyn Celestin Platelet mean volume (Bld) [Entitic vol] 11.6 fL Normal 9.5-13.5 [facility] Comment on above: Performed By: #### C BC #### [facility] [address] [place] [address] Dr. Jackelyn Celestin PLT 203 103/ul Normal 150-450 [facility] Comment on above: Performed By: #### C BC #### [facility] [address] [place] [address] Dr. Jackelyn Celestin RBC 4.62 106/ul Normal 4.20-5.40 [facility] Comment on above: Performed By: #### C BC #### [facility] [address] [place] [address] Dr. Jackelyn Celestin WBC 11.2 103/ul Critically high 4.0-11.0 [facility] Comment on above: Performed By: #### C BC #### [facility] [address] [address] [address] Jackelyn Celestin CULTURE URINEon 02-12-2022 CULTURE URINE Culture Observations : NO GROWTH. Normal [facility] Comment on above: Performed By: #### U RCX #### [facility] [address] [address] [address] Jackelyn Celestin GLYCOHEMOGLOBIN A1Con 2021 ADA RECOMMENDATION SEE BELOW Normal [facility] Comment on above: Result Comment: ADA RECOMMENDED LIMIT 4.0 - 6.0 ADA THERAPEUTIC TARGET < 7.0 ACTION SUGGESTED > 7.0 Performed By: #### [id number] #### [facility] [address] [place] [address] Dr. Jackelyn Celestin Glucose [Mass/Vol] 94 mg/dL Normal [facility] Comment on above: Performed By: #### 4 [id number] #### [facility] [address] [address] [address] Jackelyn Celestin HbA1c (Bld) [Mass fraction] 4.9 % Normal 4.5-6.2 [facility] Comment on above: Performed By: #### 4 [id number] #### [facility] [address] [place] [address] Dr. Jackelyn Celestin TYPE AND SCREENon 02-12-2022 TYPE AND SCREEN Negative Normal [facility] Comment on above: Performed By: #### T NS #### [facility] [address] [place] [address] Dr. Jackelyn Celestin US PREG TVon 01-21-2022 [...] by: DONALD AGUILAR Date: 2022-01-21 16:41 Normal [facility] Coding Summary.on 12-12-2019 Coding Summary. CODING DATE: [address] [facility] STATUS: Home (Routine DC) PAYOR: Self Pay [...] Saved: 12/12/2019 10:59 am Normal [facility] Family Medicine Office/Clini c Noteon 11-21-2019 Family Medicine Office/Clinic Note Chief Complaint EST ear pain HPI Staff Pt presents today for Lt ear pain. Onset last night. Pt was tested for covid-19 11/16/2019 but test was negative. She has taken Tylenol with little relief. History of Present Illness Chief complaint: DARY ASHLEY is a 19 Years Female who presents [...] day(s), # 20 tab(s), Refills(s) 0, Pharmacy: [facility], 159, cm, 11/21/19 19:13:00 EDT, Height/Length Dosing, 96, kg, 11/21/19 19:13:00 EDT, Weight Dosing Follow-up No qualifying data available Patient Education Body Mass Index, BMI DASH Diet MyPlate from [employer] Obesity Otitis Media, Adult Problem List/Past Medical [...] Hypertension: Grandparent. Stroke: Grandparent. Normal [facility] Comment on above: Result Comment: Elec tronically Signed By: SUKHDEEP STANFORD CNP\.br\Date and Time Signed: 11/21/19 20:02 EDT Patient [...] 06/18/2012 Document Reviewed: 01/04/2006 ExitCare? Patient Information ?[address] [facility]. DASH Diet The DASH diet stands for [...] beef, chicken breast, turkey breast. All fish. [place], bake, or broil your meat. Nothing should [...] Document Reviewed: 03/15/2012 ExitCare? Patient Information ?2013 [employer]. [employer], [employer] The amount you need to eat from each food group depends on your age, sex, and level of physical activity. To find the amounts that are right for you, go to Choose[employer].gov. Tips: ? Enjoy your food, but eat [...] Document Reviewed: 06/16/2008 ExitCare? Patient Information ?2013 [employer]. [facility] Obesity Obesity is defined as having too [...] such as an underactive thyroid (hypothyroidism ), Swetha's syndrome, and polycystic ovarian syndrome. ? Certain [...] 05/04/2005 Document Revised: 09/25/2012 Document Reviewed: 05/02/2012 [facility] ?2013 [employer]. Otitis Media, Adult A middle ear infection [...] the first few days. ? Only take [id number] or prescription medicines for pain, discomfort, or [...] Document Reviewed: 10/31/2008 ExitCare? Patient Information ?2013 [employer]. Normal [facility] SARS-CoV-2, NAAon 11-20-2019 SARS CORONAVIRUS 2 RNA:PRTHR:PT:RESPIRATO RY:ORD:PROBE.AMP.TAR Not Detected Not Detected [facility] Comment on above: Result Comment: This test was developed and its performance characteristics determined by [employer]. This test has not been FDA cleared [...] detected) result in this assay. Performed at: [facility] [address] [facility], [place] [id number] MD Malaika Anagh Performed By: #### S ARS-CoV-2, ALONDRA #### [facility] [address] [place] [id number] Family Medicine Video Visit - Telehealthon 11-16-2019 Family Medicine Video Visit - Telehealth Chief Complaint [...] interactive video communications from my office using [employer] due to the restrictions of the COVID-19 pandemic. No physical exam was conducted other than those areas of the body visible to telecommunications with the patient located at [address] [phone], with no one else in attendance. If [...] Hypertension: Grandparent. Stroke: Grandparent. Normal [facility] Comment on above: Result Comment: Elec tronically Signed By: SEAN KIM, Abbey Hodges\.ynes\Date and Time Signed: 11/16/19 14:27 EDT URINE CULTUREon 07-10-2017 Urine culture, bacteria SPECIMEN DESCRIPTION URINE CLEAN CATCHUA DIPSTICK NITRITE NEGATIVE * Result Note: LEUKOCYTE NEGATIVE *CULTURE ESCHERICHIA COLI * Result Note: 50,000 C/C/ML * * Result Note: Testing performed at [place], [place] [address] *REPORT STATUS 07/10/2017 * Result Note: FINAL * O RGANISM ESCHERICHIA COLI * Result Note: ESCHERICHIA COLI *METHOD MICAMPICILLIN <=2 SUSCEPTIBLEAMPICILLIN/SULBA CTAM <=2 SUSCEPTIBLECEFTRIAXONE <=1 SUSCEPTIBLECEFAZOLIN <=4 SUSCEPTIBLEIMIPENEM <=0.25 SUSCEPTIBLEGENTAMICIN <=1 SUSCEPTIBLETRIMETH-SULFA <=20 SUSCEPTIBLEAMOXICILLIN/CLAV ULANIC A <=2 SUSCEPTIBLENITROFURANTOIN 32 SUSCEPTIBLEPIPERACILLIN/SADA OBACTAM <=4 SUSCEPTIBLELEVOFLOXACIN <=0.12 SUSCEPTIBLEESBL NEGATIVECEFTAZIDIME <=1 SUSCEPTIBLE Normal [facility] Comment on above: Performed By: #### A URNC ####Testing performed at [address] [address]Isunllv performed at [address] [address] BHCG,QUANTITATIVEon 07-08-19 18 CG,QUANTITATIVE 133.56 MIU/ML Normal [facility] Comment on above: Result Comment: [facility] [place]: NON FEMALE 0-6 MIU/MLMALE ADULT [...] testing of urine. Performed By: #### A CBC, CG2 ####Testing performed at [address] [address] CBCon 07-07-2017 ABSOLUTE BAS 0.1 X10 Normal [facility] Comment on above: Performed By: #### A CBC, BHCG2 ####Testing performed at [place] [id number] ABSOLUTE EOS 0.20 X10 Normal [facility] Comment on above: Performed By: #### A CBC, BHCG2 ####Testing performed at [address] [address] Basophils/100 WBC Auto (Bld) 0.6 % Normal 0.0-2.0 [facility] Comment on above: Performed By: #### A CBC, BHCG2 ####Testing performed at [address] [place] [address] DTYPE AUTO DIFF Normal [facility] Comment on above: Performed By: #### A CBC, BHCG2 ####Testing performed at [address] [address] Eosinophils/100 leukocytes 2.0 % Normal 0.0-11.0 [facility] Comment on above: Performed By: #### A CBC, BHCG2 ####Testing performed at [address] [address] Lymphocytes 2.00 X10 Normal [facility] Comment on above: Performed By: #### A CBC, BHCG2 ####Testing performed at [address] [place] [address] Lymphocytes/100 leukocytes 23.0 % Normal 20.0-55.0 [facility] Comment on above: Performed By: #### A CBC, BHCG2 ####Testing performed at [address] [place] [address] Monocytes 0.6 X10 Normal [facility] Comment on above: Performed By: #### A CBC, BHCG2 ####Testing performed at [address] [address] Monocytes/100 leukocytes 7.1 % Normal 0.0-10.0 [facility] Comment on above: Performed By: #### A CBC, BHCG2 ####Testing performed at [address] [place] [address] Neutrophils 5.9 x10 Normal 1.0-7.0 [facility] Comment on above: Performed By: #### A CBC, BHCG2 ####Testing performed at [address] [address] Neutrophils/100 leukocytes 67.3 % Normal 37.0-75.0 [facility] Comment on above: Performed By: #### A CBC, BHCG2 ####Testing performed at [address] [address] Erythrocyte distribution width Auto Ratio (RBC) 12.1 % Normal 11.5-14.5 [facility] Comment on above: Performed By: #### A CBC, BHCG2 ####[place] [address] Erythrocytes (RBC) 4.72 /cmm Normal 4.0-5.4 [facility] Comment on above: Performed By: #### A CBC, BHCG2 ####Testing performed at [place] [phone] Hematocrit (HCT) 43.2 % Normal 36.0-48.0 [facility] Comment on above: Performed By: #### A CBC, BHCG2 ####Testing performed at [place] [phone] Hemoglobin mass conc (Bld) 15.1 g/dL Normal 12.0-16.0 [facility] Comment on above: Performed By: #### A CBC, BHCG2 ####Testing performed at [address] [address] MCH 32.0 pg Normal 26.0-35.0 [facility] Comment on above: Performed By: #### A CBC, BHCG2 ####Testing performed at [address] [address] MCHC mass conc (RBC) 35.0 g/dL Normal 27.0-37.0 [facility] Comment on above: Performed By: #### A CBC, BHCG2 ####Testing performed at [place] [id number] MCV 91.5 fL Normal 80.0-100.0 [facility] Comment on above: Performed By: #### A CBC, BHCG2 ####Testing performed at [address] [address] Platelet mean volume (PMV) 9.2 fL Normal 7.4-11.0 [facility] Comment on above: Performed By: #### A CBC, BHCG2 ####Testing performed at [address] [address] Platelets 235 /cmm Normal 130.0-400. 0 [facility] Comment on above: Performed By: #### A CBC, BHCG2 ####Testing performed at [address] [address] WBC (Leukocytes) 8.8 /cmm Normal 3.6-11.0 [facility] Comment on above: Performed By: #### A CBC, BHCG2 ####Testing performed at [address] [address] ED NOTEon 07-07-2017 [facility] NOTES Normal [facility] ED PROVIDERon 07-07-2017 [facility] NOTES Normal [facility] URINE MACROSCOPICon 07-08-19 18 Bilirubin Ql (U) Negative Normal NEGATIVE [facility] Comment on above: Performed By: #### U MAC, UMIC ####Testing performed at [address] [address] URINE HEMOGLOBIN LARGE Abnormal NEGATIVE [facility] Comment on above: Performed By: #### U MAC, UMIC ####Testing performed at [address] [address] URINE KETONE Negative Normal NEGATIVE [facility] Comment on above: Performed By: #### U MAC, UMIC ####Testing performed at [address] [address] URINE LEUKOTEST Negative Normal NEGATIVE [facility] Comment on above: Performed By: #### U MAC, UMIC ####Testing performed at [address] [address] URINE NITRATES Negative Normal NEGATIVE [facility] Comment on above: Performed By: #### U MAC, UMIC ####Testing performed at [address] [address] URINE SPEC GRAVITY 1.025 Normal 1.010-1.0 2 5 [facility] Comment on above: Performed By: #### U MAC, UMIC ####Testing performed at [address] [address] URINE TOTAL PROTEIN Negative Normal NEGATIVE [facility] Comment on above: Performed By: #### U MAC, UMIC ####Testing performed at [address] [place] [address] Urine, clarity CLEAR Normal CLEAR [facility] Comment on above: Performed By: #### U MAC, UMIC ####Testing performed at [address] [place] [address] Urine, color YELLOW Normal YELLOW [facility] Comment on above: Performed By: #### U MAC, UMIC ####Testing performed at [address] [place] [address] Urine, glucose presence Negative Normal NEGATIVE [facility] Comment on above: Performed By: #### U MAC, UMIC ####Testing performed at [address] [address] Urine, pH 7.0 [pH] Normal 5.0-7.0 [facility] Comment on above: Performed By: #### U MAC, UMIC ####Testing performed at [address] [address] Urine, urobilinogen 1.0 mg/dl Normal 0.2-1.0 [facility] Comment on above: Performed By: #### U MAC, UMIC ####Testing performed at [address] [address] URINE MICROSCOPICon 07-07-20 18 CRYSTAL OCCASIONAL Abnormal NONE [facility] Comment on above: Result Comment: CHRIS PHOUS PHOSPHATES Performed By: #### U MAC, UMIC ####Testing performed at [address] [address] URINE COMMENT REFLEX CULTURE PER ESTABLISHED CRITERIA. Normal [facility] Comment on above: Performed By: #### U MAC, UMIC ####Testing performed at [address] [address] URINE WBC'S 1 TO 5 Normal NEGATIVE [facility] Comment on above: Performed By: #### U MAC, UMIC ####Testing performed at [address] [address] Urine, bacteria in sediment 1+ Abnormal NEGATIVE [facility] Comment on above: Performed By: #### U MAC, UMIC ####Testing performed at [address] [place] [address] Urine, casts in sediment NONE Normal NONE [facility] Comment on above: Performed By: #### U MAC, UMIC ####Testing performed at [address] [place] [address] Urine, epithelial cells in sediment 1 TO 5 Normal [facility] Comment on above: Performed By: #### U MAC, UMIC ####Testing performed at [address] [place] [address] Urine, erythrocytes 1 TO 5 Normal NEGATIVE [facility] Comment on above: Performed By: #### U MAC, UMIC ####Testing performed at [address] [place] [address] Urine, mucus presence in sediment Negative Normal NEGATIVE [facility] Comment on above: Performed By: #### U MAC, UMIC ####Testing performed at [address] [address] BhCG Quanton 07-05-2017 HCG.beta subunit Qn 238.0 mIU/m Normal [facility] Comment on above: Result Comment: FEMA LE (NON-) & MALE <3 BORDERLINE 3 - 5 SUGGEST REPEAT TESTING FEMALE () 1 D - 1 WK 5 - 50 1 - 2 WK 50 - 500 2 - 3 WK 100 - 5000 3 - 4 WK 500 - [address] 4 - 5 WK 1000 - [address] 5 - 6 WK [address] - 883791 6 - 8 W[place] [address] - 800769 2 - 3 [place] [address] - 173434 Performed By: #### 2 [id number] ####JIMMIE FxnEemd2204 [place] [address] Auto Diffon 07-04-2017 Basophils Auto #/vol (Bld) 0.1 E3/mcL Normal 0.0-0.2 [facility] Comment on above: Order Comment: Order Added by Discern Expert. Performed By: #### 2 483517 ####JIMMIE RxhTqmy6417 [place] [address] Basophils/100 WBC Auto (Bld) 0.6 % Normal 0.0-2.0 [facility] Comment on above: Order Comment: Order Added by Discern Expert. Performed By: #### 2 221371 ####JIMMIE SnqWatr3542 [place] [address] Eos Absolute 0.3 E3/mcL Normal 0.0-0.7 [facility] Comment on above: Order Comment: Order Added by Discern Expert. Performed By: #### 2 834973 ####JIMMIE DanSyjPvev8913 [place] [address] Eosinophils/100 leukocytes 2.5 % Normal 0.0-11.0 [facility] Comment on above: Order Comment: Order Added by Discern Expert. Performed By: #### 2 488567 ####JIMMIE DhyOcob2495 [place] [address] Lymphocytes 2.3 E3/mcL Normal 1.2-3.4 [facility] Comment on above: Order Comment: Order Added by Discern Expert. Performed By: #### 2 481226 ####JIMMIE DanEiyJbjm8237 [place] [address] Lymphocytes/100 leukocytes 22.2 % Normal 20.0-55.0 [facility] Comment on above: Order Comment: Order Added by Discern Expert. Performed By: #### 2 568557 ####JIMMIE NphLpbq8925 [place] [address] Dale Absolute 0.8 E3/mcL High 0.0-0.7 [facility] Comment on above: Order Comment: Order Added by Discern Expert. Performed By: #### 2 295612 ####JIMMIE DanJwbEwbh3415 [place] [address] Monocytes/100 leukocytes 7.6 % Normal 0.0-10.0 [facility] Comment on above: Order Comment: Order Added by Discern Expert. Performed By: #### 2 439840 ####JIMMIE MgzWbzp1545 [place] [address] Neutro Absolute 6.9 E3/mcL High 1.4-6.5 [facility] Comment on above: Order Comment: Order Added by Discern Expert. Performed By: #### 2 443960 ####JIMMIE DanRnoEqlz4574 [place] [address] Neutro Auto 67.1 % Normal 37.0-75.0 [facility] Comment on above: Order Comment: Order Added by Discern Expert. Performed By: #### 2 820463 ####JIMMIE TqqRipb5729 [place] [address] BMPon 07-04-2017 BUN/Creatinine Ratio 21.7 ratio Normal 5.4-30.0 [facility] Comment on above: Performed By: #### 2 354209 ####JIMMIE OsnGysi6185 [place] [address] Creatinine 0.6 mg/dL Normal 0.6-1.3 [facility] Comment on above: Performed By: #### 2 434780 ####JIMMIE ZffNsaz0808 [place] [address] Urea nitrogen 13 mg/dL Normal 7-18 [facility] Comment on above: Performed By: #### 2 962524 ####JIMMIE MhoUvuh5424 [place] [address] Calcium 8.4 mg/dL Normal 8.4-10.2 [facility] Comment on above: Performed By: #### 2 020322 ####JIMMIE WdrLlfi1865 [place] [address] Chloride 100 mmol/L Normal 98-107 [facility] Comment on above: Performed By: #### 2 282640 ####JIMMIE GobZqmp0522 [place] [address] CO2 27.7 mmol/L Normal 24.0-30.0 [facility] Comment on above: Performed By: #### 2 027294 ####JIMMIE IlwHqif3264 [place] [address] Glucose mass conc 98 mg/dL Normal 70-99 [facility] Comment on above: Performed By: #### 2 352542 ####JIMMIE XtnRncu9810 [place] [address] Potassium molar conc 3.4 mmol/L Low 3.5-5.1 [facility] Comment on above: Performed By: #### 2 562899 ####JIMMIE KkbMfdf0739 [place] [address] Sodium 133 mmol/L Low 136-145 [facility] Comment on above: Performed By: #### 2 651242 ####JIMMIE DanXmjRwts9784 [place] [address] BhCG Quanton 07-04-2017 HCG.beta subunit Qn 190.8 mIU/m Normal [facility] Comment on above: Result Comment: FEMA LE (NON-) & MALE <3 BORDERLINE 3 - 5 SUGGEST REPEAT TESTING FEMALE () 1 D - 1 WK 5 - 50 1 - 2 WK 50 - 500 2 - 3 WK 100 - 5000 3 - 4 WK 500 - [address] 4 - 5 WK 1000 - [address] 5 - 6 WK [address] - 520970 6 - 8 W[place] [address] - 043685 2 - 3 [place] [address] - [address] Performed By: #### 2 763288 ####JIMMIE SqfUzvp4773 [place] [address] CBC w/ Auto Diffon 8 Erythrocyte distribution width Auto Ratio (RBC) 11.6 % Normal 11.5-14.5 [facility] Comment on above: Performed By: #### 2 391811 ####JIMMIEJalil DanKryClsl9666 [place] [address] Erythrocytes (RBC) 4.43 E6/mcL Normal 3.90-5.40 [facility] Comment on above: Performed By: #### 2 059019 ####JIMMIE GnoTcxe3255 [place] [address] Hematocrit (HCT) 40.1 % Normal 36.0-48.0 [facility] Comment on above: Performed By: #### 2 280242 ####JIMMIEJalil OzunaZfrWeja0129 [place] [address] Hemoglobin mass conc (Bld) 14.1 g/dL Normal 12.0-16.0 [facility] Comment on above: Performed By: #### 2 823339 ####JIMMIEJalil DanHrnPucf9931 [place] [address] MCH 31.7 pg High 27.0-31.0 [facility] Comment on above: Performed By: #### 2 073283 ####JIMMIEJalil DanSjdSbsd3357 [place] [address] MCHC mass conc (RBC) 35.1 g/dL Normal 33.0-37.0 [facility] Comment on above: Performed By: #### 2 145848 ####JIMMIE Ozunao1025 [place] [address] MCV 90.4 fL Normal 78.0-100.0 [facility] Comment on above: Performed By: #### 2 562328 ####JIMMIE Ozunao1025 [place] [address] Platelet mean volume (PMV) 8.4 fL Normal 7.4-11.0 [facility] Comment on above: Performed By: #### 2 890298 ####JIMMIE Ozunao1025 [place] [address] Platelets 232 E3/mcL Normal 130-400 [facility] Comment on above: Performed By: #### 2 300119 ####JIMMIE Ozunao1025 [place] [address] WBC (Leukocytes) 10.3 E3/mcL Normal 3.6-11.0 [facility] Comment on above: Performed By: #### 2 709179 ####JIMMIE Ozunao1025 [place] [address] Hep Func Panelon 07-04-2017 Alanine aminotransferase (ALT) 15 Int._Unit/L Normal 10-40 [facility] Comment on above: Performed By: #### 2 231982 ####JIMMIE DanLbbDtmt8224 [place] [address] Albumin 3.8 g/dL Normal 3.2-5.0 [facility] Comment on above: Performed By: #### 2 052738 ####JIMMIE DanOjpOqtq0808 [place] [address] Albumin/Globulin Ratio 1.4 {ratio} Normal 1.1-1.9 [facility] Comment on above: Performed By: #### 2 135056 ####JIMMIE KzpPewv6467 [place] [address] Alk Phos 36 Int._Unit/L Low 42-121 [facility] Comment on above: Performed By: #### 2 575388 ####JIMMIE CitOahw5883 [place] [address] Aspartate aminotransferase (AST) 18 Int._Unit/L Normal 10-42 [facility] Comment on above: Performed By: #### 2 342483 ####JIMMIEJalil GreshamQfqHgtg1513 [place] [address] Bili Direct <.10 Normal .00-.20 [facility] Comment on above: Performed By: #### 2 395288 ####JIMMIEJalil DanZvxFdnq9898 [place] [address] Bili Indirect >0.7 Normal [facility] Comment on above: Result Comment: No e stablished ranges available for the Indirect Biliruben. Performed By: #### 2 107510 ####JIMMIEJalil DanJssBnmm7878 [place] [address] Bili Total 0.8 mg/dL Normal 0.2-1.0 [facility] Comment on above: Performed By: #### 2 359957 ####JIMMIEJalil DanOrnZrlf7608 [place] [address] Globulin 2.8 g/dL Normal 2.0-4.0 [facility] Comment on above: Performed By: #### 2 080298 ####JIMMIEJalil DanTpbFypj1950 [place] [address] Protein 6.6 g/dL Normal 6.4-8.3 [facility] Comment on above: Performed By: #### 2 393690 ####JIMMIEJalil DanPqrHiak3572 [place] [address] Lipase Levelon 07-04-2017 Lipase Lvl 19 U/L Normal 8-57 [facility] Comment on above: Performed By: #### 2 210795 ####JIMMIE EpwFnxm7710 [place] [address] U BhCG Qlton 07-04-2017 HCG.beta subunit Qn Positive Normal Neg [facility] Comment on above: Performed By: #### 2 685682 ####JIMMIE Urinalysis Manual Dlhfnqixry8120 [place] [address] UA Completeon 07-04-2017 UA Blood 3+ Normal Negative [facility] Comment on above: Performed By: #### 8 8851762 ####JIMMIE Urinalysis Automated Seqwkuxvzx4909 [place] [address] UA Bacteria Trace Abnormal None [facility] Comment on above: Performed By: #### 8 0598477 ####JIMMIE Urinalysis Automated Swhzjhyknd6152 [place] [address] UA Clarity SltCloudy Abnormal Clear [facility] Comment on above: Performed By: #### 8 5749541 ####JIMMIE Urinalysis Automated Wewpgumzao0414 [place] [address] UA Leuk Est Trace Normal Negative [facility] Comment on above: Performed By: #### 8 6486980 ####JIMMIE Urinalysis Automated Dyyshgzink1452 [place] [address] UA Mucous Occasional Abnormal Trace [facility] Comment on above: Performed By: #### 8 6205856 ####JIMMIE Urinalysis Automated [address] [place] [address] UA Nitrite Negative Normal Negative [facility] Comment on above: Performed By: #### 8 9248932 ####JIMMIE Urinalysis Automated [address]aw[address] [place] [address] UA pH 5.0 Normal 4.6-8.0 [facility] Comment on above: Performed By: #### 8 4257822 ####JIMMIE Urinalysis Automated [address]kss[address] [place] [address] UA Protein Negative Normal Negative [facility] Comment on above: Performed By: #### 8 9487705 ####JIMMIE Urinalysis Automated I[address] [place] [address] UA Spec Grav 1.027 Normal 1.003-1.03 0 [facility] Comment on above: Performed By: #### 8 7143152 ####IJMMIE Urinalysis Automated Ubeluguaam2548 [place] 2345305 UA Squam Epithelial 0-5 Normal 0-5 [facility] Comment on above: Performed By: #### 8 2030949 ####JIMMIE Urinalysis Automated [address] [place], [place] [address] UA Urobilinogen Negative Normal [facility] Comment on above: Performed By: #### 8 7952905 ####JIMMIE Urinalysis Automated Qsoecpdbbb0417 [place] [address] UA WBC 10-20 Abnormal 0-5 [facility] Comment on above: Performed By: #### 8 [id number] ####JIMMIE Urinalysis Automated Ybaopsbxse1183 [place] [address] Urine, color Yellow Normal Yellow [facility] Comment on above: Performed By: #### 8 [id number] ####JIMMIE Urinalysis Automated Qsgdmpxeni8183 [place] [address] Urine, erythrocytes 5-10 Abnormal 0-3 [facility] Comment on above: Performed By: #### 8 [id number] ####JIMMIE Urinalysis Automated Hhzfucyjdu3629 [place] [address] Urine, glucose Negative Normal Negative [facility] Comment on above: Performed By: #### 8 1227971 ####JIMMIE Urinalysis Automated Qgkqqdeerd9720 [place] [address] Urine, ketones presence Negative Normal Negative [facility] Comment on above: Performed By: #### 8 9343680 ####JIMMIE Urinalysis Automated Cjoekbgzvj9128 [place] [address] Urine, urobilinogen Negative Normal Negative [facility] Comment on above: Performed By: #### 8 [id number] ####JIMMIE Urinalysis Automated Wfagpdyody0997 [place] 2345305 eGFRon 07-04-2017 eGFR (non-black) mL/min/{1.73_m2} Normal [facility] Comment on above: Order Comment: Order added by Discern Expert. Performed By: #### 1 1984013 ####JIMMIE TgsSndo5808 [place] 2345305 Vital Signs Date Time Vital Sign Value Performing Clinician Brendai lity 04-20-2023 14:07-0500 Diastolic blood pressure 75 mm[Hg] [facility] 04-20-2023 14:07-0500 Heart rate 93 /min [facility] 04-20-2023 14:07-0500 Respiratory rate 18 /min [facility] 04-20-2023 14:07-0500 SaO2% (BldA) [Mass fraction] 99 % [facility] 04-20-2023 14:07-0500 Systolic blood pressure 127 mm[Hg] [facility] [address] [place] [address] 04-20-2023 14:06-0500 Body height 160 cm [facility] 04-20-2023 14:06-0500 Body mass index (BMI) [Ratio] 37.22 kg/m2 [facility] [address] [place] [address] 04-20-2023 14:06-0500 Body temperature 97.7 [degF] [facility] [address] [place] [address] 04-20-2023 14:06-0500 Body weight 95.3 kg [facility] [address] [place] [address] 03-10-2023 23:05-0500 Diastolic blood pressure 80 mm[Hg] Supriya Aichholz Work Phone: [facility] 03-10-2023 23:05-0500 Heart rate 100 /min Supriya Aichholz Work Phone: [facility] 03-10-2023 23:05-0500 Respiratory rate 20 /min Supriya Aichholz Work Phone: [facility] 03-10-2023 23:05-0500 SaO2% (BldA) [Mass fraction] 98 % Supriya Aichholz Work Phone: [facility] 03-10-2023 23:05-0500 Systolic blood pressure 137 mm[Hg] Supriya Aichholz Work Phone: [facility] 03-10-2023 17:38-0500 Body temperature 97.9 [degF] Supriya Aichholz Work Phone: [facility] 03-10-2023 17:32-0500 Body height 160.02 cm Supriya Aichholz Work Phone: [facility] 03-10-2023 17:32-0500 Body weight 95 kg Supriya Aichholz Work Phone: [facility] Encounters Encounter Date Encounter Type Care Provider Facility Start: 05-22-2023 End: 05-22-2023 [facility] Start: 05-22-2023 End: 05-22-2023 Postop follow up visit related to original px Gerson Avalos MD Work Phone: [facility] Comment on above: Status post laparosc opic cholecystectomy (Primary Dx) Start: 05-18-2023 Clinisync Result Encounter Cor ey Morteza DO Work Phone: [facility] External Department Unsolicited Start: 05-18-2023 Clinisync Result Encounter Cor ey Morteza DO Work Phone: [facility] External Department Unsolicited Start: 05-16-2023 Chart abstracting Xin Morteza DO Work Phone: [facility] Start: 05-08-2023 End: 05-08-2023 ambulatory XIN MORTEZA Not Available Start: 05-04-2023 End: 05-04-2023 Evaluation and management of inpatient SUKI Sarah [facility] Start: 05-04-2023 End: 05-04-2023 Evaluation and management of inpatient [facility] Start: 04-20-2023 End: 04-20-2023 [facility] Start: 04-20-2023 End: 04-20-2023 Patient encounter procedure [facility] Start: 03-31-2023 End: 03-31-2023 ambulatory XIN MORTEZA Not Available Start: 03-30-2023 End: 03-30-2023 [facility] Start: 03-14-2023 End: 03-14-2023 ambulatory XIN MORTEZA Not Available Start: 03-10-2023 End: 03-11-2023 Emergency department patient visit Jacky Alarcon Facility:[facility] Start: 03-10-2023 End: 03-10-2023 Emergency department patient visit Supriya Cerrato Work Phone: [facility] Work Phone: Start: 03-07-2023 End: 03-07-2023 ambulatory XIN PRO Not Available Start: 07-29-2022 End: 07-30-2022 Evaluation and management of inpatient DR JEFFREY NUNEZ . Facility:[facility] Start: 07-21-2022 End: 07-22-[address] XIN PRO . Facility:[facility] Start: 07-06-2022 End: 07-06-2022 ambulatory STEFAN STATON . Facility:[facility] Start: 06-06-2022 End: 06-07-[address] XIN PRO . Facility:[facility] Start: 05-21-2022 End: 05-22-[address] XIN PRO . Facility:[facility] Start: 05-11-2022 End: 05-11-2022 ambulatory STEFAN STATON . Facility:[facility] Start: 05-09-2022 End: 05-10-[address] XIN PRO . Facility:[facility] Start: 03-17-2022 End: 03-18-2022 ambulatory STEFAN STATON . Facility:[facility] Start: 02-12-2022 End: 02-13-[address] XIN PRO . Facility:[facility] Start: 02-11-[address] XIN PRO . Facili ty:[facility] Start: 01-21-2022 End: 01-22-[address] XIN PRO . Facility: Start: 07-07-2017 End: 07-07-2017 Emergency department patient visit [facility] Start: 07-05-2017 End: 07-06-2017 Ambulatory Dickson Ahmadi Facility:[facility] Start: 07-04-2017 End: 07-04-2017 Emergency department patient visit Dickson Ahmadi Facility:[facility] Procedures Date Procedure Procedure Detail Performing Clinician Start: 05-18-2023 ALL CBC WITH AUTO DIFF Xin Pro DO Work Phone: Start: 07-29-2022 Delivery of Products of Conception, External Approach STEFAN STATON . Start: 07-29-2022 Drainage of Amniotic Fluid, Therapeutic from Products of Conception, Via Natural or Artificial Opening STEFAN STATON . Start: 07-29-2022 Introduction of Other Hormone into Peripheral Vein, Percutaneous Approach STEFAN STATON . History of cholecystectomy Status post laparoscopic cholecystectomy Gerson Avalos MD Work Phone: Plan of Treatment Date Care Activity Detail Author Start: 10-11-2025 DTaP,Tdap and Td Vac cines (5 - Td or Tdap) DTaP,Tdap and Td Vaccines (5 - Td or Tdap) [facility] Start: 05-04-2024 Adult BMI Screening Adult BMI Screen ing [facility] Start: 05-04-2024 Tobacco Screening Tobacco Screening [facility] Start: 04-20-2024 Adult BMI Screening Adult BMI Screen ing [facility] Start: 04-20-2024 Tobacco Screening Tobacco Screening [facility] Start: 06-05-2023 End: 06-05-2023 Patient encounter procedure 06/05/2023 9:50 AM EST Routine [facility] [address] [place] [id number] Xin Pro, DO [address] [place] [address] [facility] Start: 05-04-2023 End: 05-04-2023 Admission to same day surgery center 05/04/2023 7:30 AM EST - 05/04/2023 9:30 AM EST Surgery [facility] Surgery [address] [place] [phone] Gerson Avalos MD [address] [place] [address] DAVINCI CHOLECYSTECTOMY [facility] - Surgery Comment on above: DAVINCI CHOLECYSTECT ANDREA Start: 05-04-2023 End: 05-04-2023 DAVINCI CHOLECYSTECTOMY DAVINCI CHOLECYSTECTOMY CHOLELITHIASIS 05/04/2023 7:30 AM EST [facility] Start: 05-04-2023 End: 05-04-2023 DAVINCI CHOLECYSTECTOMY CHOLANGIOGRAM DAVINCI CHOLECYSTECTOMY CHOLANGIOGRAM CHOLELITHIASIS 05/04/2023 7:30 AM EST [facility] Start: 05-04-2023 Subsequent hospital visit by physician 05/04/2023 7:30 AM EST Hospital Encounter [facility] Surgery [address] [facility] [place] [phone] Gerson Avalos MD [address] [place] [address] [facility] Start: 03-10-2023 US Gallbladder [facility] Start: 03-10-2023 US scan of gallbladder US gall bladd er [facility] Start: 03-10-2023 Bacteria identified in Urine by Culture [facility] Start: 12-09-2022 Influenza vaccination Influenza Vacc ine [facility] Start: 2019 Screening for malign ant neoplasm of cervix Pap Smear [facility] Start: 2016 Adult BMI Follow Up Plan Adult BMI F ollow Up Plan [facility] Start: 2010 [facility] Second Month Nausea and Vomiting, Adult ED Gallstones ED [facility] Work Phone: Patient referral [facility] Work Phone: Payers Date Payer Category Payer Unknown [id number] 2022 Private Health Insurance [id number] 2022 Unknown [id number] 2017 Unknown 1998 Unknown [id number] 2.16.84 0.1.438731.3.579.2.593 1998 Unknown [id number] 2.16.84 0.1.036492.3.579.2.593 1998 Unknown [id number] 2.16.84 0.1.872007.3.579.2.593 1998 Unknown [id number] 2.16.84 0.1.562474.3.579.2.593 1998 Unknown [id number] 2.16.84 0.1.076156.3.579.2.593 1998 Unknown [id number] 2.16.84 0.1.889843.3.579.2.593 1998 Unknown [id number] 2.16.84 0.1.475565.3.579.2.593 1998 Unknown [id number] 2.16.84 0.1.957800.3.579.2.593 1998 Unknown [id number] 2.16.84 0.1.214047.3.579.2.593 1998 Unknown [id number] 2.16.84 0.1.826247.3.579.2.593 1998 Unknown [id number] 2.16.84 0.1.456719.3.579.2.593 1998 Unknown [id number] 2.16.84 0.1.515928.3.579.2.593 1998 Unknown [id number] 2.16.84 0.1.809504.3.579.2.593 1998 Unknown [id number] 2.16.84 0.1.425435.3.579.2.1259 1998 Unknown [id number] 2.16.840 .1.506416.3.579.2.1259 1998 Unknown [id number] 2.16.840 .1.163003.3.579.2.1259 1998 Unknown [id number] 2.16.840 .1.865094.3.579.2.1259 1998 Unknown [id number] 2.16.8 40.1.043953.3.579.2.1286 1998 Unknown [id number] 2.16.8 40.1.208227.3.579.2.1286 1998 Unknown [id number] 2.16.8 40.1.696344.3.579.2.1286 1998 Unknown [id number] 2.16.8 40.1.672864.3.579.2.1286 1998 Unknown [id number] 2.16.84 0.1.095553.3.579.2.1286 1998 Unknown [id number] 2.16.84 0.1.038773.3.579.2.1286 1959 Private Health Insurance [id number] 1959 Self-pay 1959 Unknown [id number] 1959 Unknown [id number] Unknown [id number] 2.16.8 40.1.926405.3.579.2.531 Social History Date Type Detail Facility Start: 03-10-2023 End: 03-30-2023 Tobacco smoking status NHIS Never smoked tobacco (finding) [facility] Start: 2000 Sex Assigned At Female F [facility] Start: 03-30-2023 End: 05-16-2023 Tobacco use and exposure Smokeless tobacco non-user [facility] Start: 04-20-2023 End: 05-04-2023 Alcohol intake Ex-drinker (finding) [facility] Start: 05-21-2020 End: 04-20-2023 History of Social function [facility] Start: 05-21-2020 End: 04-20-2023 Tobacco use panel [facility] Housing Instability Unknown [facility] Start: 2000 Sex Assigned At Not on file P [facility] Start: 05-16-2023 Alcohol intake Lifetime non-d yrn (finding) [facility] Start: 02-10-2023 [facility] History of Present illness Narrative 05-22-2023 Gerson Avalos MD - 05/22/2023 3:15 PM EST Note Date & Type Note Facility 05-22-2023 History of Presen t illness Narrative Images from the original note were not included. Subjective: Dary Ashley presents to the clinic nearly 2 weeks following robotic cholecystectomy. Eating a regular diet without difficulty. Bowel movements are Normal. The patient is not having any pain.. Objective: There were no vitals taken for this visit. General: alert, appears stated age, and cooperative Assessment: Doing well postoperatively. Plan: 1. Continue any current medications. 2. Wound care discussed. 3. Pt is to increase activities as tolerated. 4. Follow up: As needed documented in this encounter [facility] Instructions 04-20-2023 Patient Instructions Note Date & Type Note Facility 04-20-2023 Instructions Terri Estrada RN - 04/20/2023 1:45 PM EST Your surgery/procedure is scheduled at [facility] on 05/04/23 at 0730 Arrival Time 0530 [facility] Address: [address] [place] [address] in [address] Parking lot located on [facility]. Report to the Entrance B. Check in at the information desk the surgery. The waiting room located on the second floor. If you have any questions prior to surgery, please call Pre-Admission Clinic at [phone] between 7:30 am and 4:30 pm Monday through Monday. If you have questions the morning of surgery, please call the Pre-op Department at [phone]. PLEASE FOLLOW THESE INSTRUCTIONS OR YOUR SURGERY MAY BE CANCELLED/ MEDICATION INSTRUCTIONS Take the following medications the morning of surgery with a sip of water: none Notify your surgeon if you develop any illness such as a cold, cough, fever, sore throat or vomiting between now and your surgery. Your Surgeon wants you in the best possible health for your surgery. Take inhalers as prescribed the morning of surgery. STOP TAKING UNLESS OTHERWISE DIRECTED BY YOUR SURGEON Blood thinners: Medications such as Coumadin, Heparin, aspirin, Plavix, and non-steroidal anti-inflammatory drugs (NSAIDS) affect the body's blood clotting capabilities. These medications are usually stopped 3-7 days prior to surgery. Please contact your physician regarding a stop date for these medications. Diabetics: If you take insulin, contact your prescribing doctor for instructions on how to manage this the night before and the morning of surgery. Weight loss medications: Stop all weight loss medications at least 2 weeks prior to surgery. Vitamins: Stop taking all vitamins, supplements, and herbal products, including herbal tea, 1 week before your surgery. Some vitamins and herbal products may not react well with the medicine used to put you to sleep and/or may thin the blood. Marijuana: Stop marijuana 72 hours prior to surgery, stop CBD oil 48 hours prior to surgery. If you have been given bowel prep instructions by your surgeon, please call the surgeon's office with any questions about these instructions. What do I do the day of Surgery? Age 2 through adult - Stop all solids by midnight, You may have clear liquids up to 2 hours before surgery, unless otherwise instructed by your surgeon. Clear liquids are: water, sports drinks such as Gatorade or G2, or apple juice. You may NOT have: tube feedings, dairy products, alcoholic beverages, orange juice, or any liquids with solids or pulp in it. If applicable, shower again with CHG soap the morning of your surgery. If you received a green plastic bracelet, bring it with you the day of surgery and your nurse will put it on you. In order to help prevent infection post-operatively, you may be asked to use a CHG mouthwash when you arrive to the Pre-op area. Your nurse will provide instruction the morning of. What do I need to do to prepare for surgery? If you will be going home the same day as your surgery, arrange for an adult over [address] Riding in a bus or taxi by yourself is not permitted. You should not smoke or drink alcohol 24 hours before your surgery. Alcohol thins the blood and may cause bleeding problems during surgery. Smoking increases the risk of breathing problems after surgery. If you have been assigned KARINA Education by your surgeon's office, please complete this education prior to your surgery. For questions regarding KARINA education, reach out to your surgeon's office. If you have been given a prescription for occupational, physical or speech therapy, please set up these appointments before your procedure. If you would like to schedule therapy at a [facility] facility, please call [phone] ([phone]). Do not use lotions, creams, powders, perfume, make up, cologne or after-shaves day of surgery. Remove ALL jewelry including wedding rings, body piercings,hair extensions that contain metal, nail malaysian, make-up, and contact lens. You may brush your teeth the morning of surgery, but do not swallow the water. Wear your dentures and partial plates to the hospital (no adhesive). Shower the night the before. If applicable, use the CHG (chlorhexidine gluconate) soap or wipes What should I bring to the hospital? If you received a green plastic bracelet, bring it with you the day of surgery and your nurse will put it on you. Eyeglass or contact lens case If you will be spending the night, please bring personal care items and leave them in the car until you are taken to your room after surgery. Leave ALL valuables at home. If any of these instructions conflict with those you received from the surgeon, please seek clarification from your surgeon's office. DEEP BREATHING EXERCISES This exercise helps promote good air exchange and helps to prevent pneumonia after surgery. Breathe in slowly and deeply through the nose. Hold your breath for a few seconds and then exhale slowly through the mouth. Repeat this three times and then cough.Coughing helps to clear your lungs. If you have had a surgery with an incision into your abdomen or chest, press gently against your incision with a pillow or a folded blanket when you cough. Please be aware - it may not be waldrop to cough following some types of surgeries involving the eyes, ears, sinuses and throat. Always follow your doctor's instructions. LEG EXERCISE These exercises help promote good circulation and help to prevent blood clots after surgery. Point your toes to the ceiling and then point them to the wall. Do this slowly about 15-20 times. You may also move your feet in circles. Do the exercise that is most comfortable for you. If you have had surgery involving your shoulder or arm, we recommend you move your fingers. PRACTICING We ask that you begin practicing these exercises before your surgery. After surgery try to do both exercises at least every 2 hours during the day and early evening. SURGICAL SITE INFECTION PREVENTION What is a Surgical Site Infection? Infection can happen to the area of the body where surgery is done. This is called a surgical site infection (SSI). A SSI does not happen very often. Can SSIs be treated? Antibiotics are used to treat SSI. Some patients may need another surgery to treat the infection. The doctor will discuss treatment options with you. What are some of the things that hospitals are doing to prevent SSIs? Soap and water or alcohol hand rub are used before and after caring for each patient. Special soap is used to clean surgery workers hands and arms just before the surgery. Masks, gowns, gloves and hair covers are worn during the surgery to keep the area clean. Hair in the surgery area may be removed with clippers (not razors). A special soap that kills germs is used to clean the skin at the surgery site. Antibiotics may be given before the surgery starts. What can you do to prevent SSIs? Before surgery: You may be asked to shower or bathe with a special soap that kills germs the night before and the day of surgery. Use the soap as you were told. If you smoke, stop or cut down. Ask your doctor about ways to quit. Do not shave near where you will have surgery. Shaving can irritate the skin and make it easier to get and infection. After surgery: Be sure that the doctors and nurses clean their hands before and after touching you. Be sure your family and friends clean their hands before and after visiting you. Do not be afraid to remind them. * Care for your wound at home as told by your doctor or nurse * Call your doctor right away if you have fever, redness, increased pain, or drainage at the surgery site. Further questions? Contact the doctor, nurse or the Infection Prevention and Control department if you have any questions. PATIENT RIGHTS AND RESPONSIBILITIES As a patient at [facility], you have the right to: Receive medical care and be informed of who is taking care of you Be treated with dignity and respect Have a family member/marketing sales representative of choice and your physician notified of your admission Receive information and actively participate in decisions about your care and treatment Refuse care, treatment and services Decide who may provide your support and speak for you Access taoist and spiritual services Participate in ethical issues and questions about your care Receive private and confidential care Have appropriate assessment and management of your pain Know guest visitation restrictions or limitations Have an advance directive Access protective services Consent or refuse to participate in research studies or production or recordings, films or other images Have resolution of your complaints Receive information of hospital charges and payment methods Patient/patient marketing sales representative responsibilities are to: Provide information about health status to facilitate care, treatment and services Follow the treatment, plan, keep appointments and speak up when you do not understand the plan Respect the rights of other patients and healthcare personnel Follow organizational rules and regulations that support quality care and a safe environment Fulfill financial obligations as promptly as possible Bathing Before Surgery- Patients greater than 2 months of age You can help to lower your chance of infection at the site of your surgery by showering or bathing with a special soap called chlorhexidine gluconate (CHG). Germs live on your skin. This special soap will help lower the amount of germs so they do not get into your surgery site. Special points to know: Do not use this soap if you know that you are allergic to CHG. Shower or bathe with CHG the night before and the morning of surgery. Do not shave the area of your body where the surgery will be done within 7 days of surgery. The CHG may make your skin a little dry, but do not use lotion. Steps for Bathing: Wash your hair as usual with your normal shampoo. Rinse your hair and body well after you shampoo to get rid all of the shampoo. Wash gently with the CHG from the neck down, but do not scrub the skin to hard. Be sure to wash the area of your surgery very well. If showering, turn the water off while washing and then turn the water back onto rinse. Do not get CHG in the genital (private) area. Do not get CHG in the eyes, ears, nose or mouth. (If the soap gets into the eyes, flush them immediately with water). Do not wash with regular soap after CHG is used. Pat skin dry with a soft, clean towel. Patient should sleep in freshly laundered night clothes and report for surgery in clean clothes. documented in this encounter [facility] Note 04-20-2023 Perioperative Nursing Note - Lexi Reddy RN - 04/20/2023 1:45 PM EST Note Date & Type Note Facility 04-20-2023 Miscellaneous Notes Formattin g of this note might be different from the original. Appt reminder call done-message left documented in this encounter [facility] Nurse Note 04-20-2023 Perioperative Nursing Note - Lexi Reddy RN - 04/20/2023 1:45 PM EST Note Date & Type Note Facility 04-20-2023 Nurse Note Appt reminder call done-message left [facility] Evaluation note Note Date & Type Note Facility Evaluation note No assessment information availa [facility] Work Phone: Evaluation note Note Date & Type Note Facility Evaluation note Diagnosis Status post laparoscopic cholecystectomy- Primary Other postprocedural status documented in this encounter [facility] Hospital Discharge instructions Note Date & Type Note Facility Hospital Discharge instructions Additional Instructions Return if symptoms are worse Continue your Zofran and Reglan at home and will add Phenergan for vomiting Follow-up with your surgeon [facility] Work Phone: Instructions Attachments Note Date & Type Note Facility Instructions The following attachments cannot be sent through Care Everywhere.Cholecystectomy Discharge Instructions (Tristanian)documented in this encounter [facility] Summary Purpose Family History No Family History [...] section and content) DATE CREATED AUTHOR 09/28/2017 [facility] Mike barajas DATE CREATED AUTHOR AUTHOR'S ORGANIZ ATION 09/29/2017 [facility] DATE CREATED AUTHOR AUTHOR'S ORGANIZ ATION 04/16/2020 [facility] DATE CREATED AUTHOR AUTHOR'S ORGANIZ ATION 08/24/2022 [facility] DATE CREATED AUTHOR AUTHOR'S ORGANIZ ATION 03/21/2023 [facility] DATE CREATED AUTHOR AUTHOR'S ORGANIZ ATION 05/09/2023 [facility] EPIC DATE CREATED AUTHOR AUTHOR'S ORGANIZ ATION 05/24/2023 [facility] Care Teams (unrecognized sec tion and content) Team Status: Active Member Role Status Dates Supriya Cerrato Primary Care Provider Active Team Status: Inactive Member Role Status Dates Supriya Cerrato Primary Care Provider Active Jacky Alarcon MD Emergency Provider Active Barker Operator Relationship Specialty Start Date End Date Supriya Cerrato, KD-LIQUEFIED NATURAL GAS OPERATOR [address] [place] [id number] PCP - General Nurse Practitioner 03/30/23 Barker Operator Relationship Specialty Start Date End Date Supriya Cerrato APRN-LIQUEFIED NATURAL GAS OPERATOR [address] [place] [address] PCP - General Nurse Practitioner 03/30/23 Goals (unrecognized section and content) Goals may be documented in a n alternate sectionNot on filedocumented as of this encounterNot on filedocumented as of this encounter FOR RECORDS PERTAINING TO PATIENTS WHO ARE [...] BE BASED ON THE PRIMARY CLINICAL RECORDS. [facility] [employer] provides no warranty or guarantee of the accuracy or completeness of information in this document.
[2023-06-10 04:07] LABS: Age Gdln ACOG Testing Note (.); HPV Aptima Positive (Negative); IGP, rfx Aptima HPV ASCU Note (.)
== END 2023-06-05 21:30 | disposition home or self-care (01) ==
LOC: LAB 21:29
PROVIDERS: Visit Provider Obstetrics & Gynecology
DX: Z01.419 Encounter for gynecological examination (general) (routine) without abnormal findings (principal)
CPT/HCPCS: G0145

== ENCOUNTER 2023-06-19 13:11 | Outpatient (OUT) | payer OTHER, SELFPAY ==
--- NOTE | 2023-06-19 13:13 | US_ITS ---
[address] [address] Patient Name: EDISON ASHLEY MRN: [id number] date: 2000 Sex: F Assigned Patient Location: [facility] Current Patient Location: [facility] Accession/Order Number: [id number] Exam Date: 06/19/2023 13:15 Report Date: 06/19/2023 15:19 At the request of: XIN GRULLON Procedure: US OB cervical length EXAMINATION: US OB anatomy, US OB cervical length HISTORY: anatomic survey Z36.89 COMPARISON: No relevant comparison available. TECHNIQUE: Transabdominal sonographic examination was performed for obstetrical and evaluation. FINDINGS: Number: 1 Heart Rate: Not recorded Amniotic Fluid Volume: Subjectively low, YO 10.3 cm Placental Location: Anterior fundal, the placental edge is 4.8 cm from the internal os. Grade 0 position: Breech presentation, transverse lie Cervix Length: 4.5 cm , closed Normal anatomy: Lateral ventricles, cerebellum, posterior fossa, orbits, four-chamber heart, RVOT, LVOT, diaphragm, stomach, kidneys, abdominal portions, bladder, umbilical arteries, spine, extremities Nonvisualization of anatomy: nose, lips, three-vessel cord BIOMETRY: BPD: 4.6 cm 19 weeks 6 days , 42% HC: 18.2 cm 20 weeks 4 days, 71% AC: 16.4 cm 21 weeks 3 days, 86% FL: 3.6 cm 21 weeks 2 days , 82% EFW:406.8 grams; 14 oz, 97% FL/AC: 21.7 FL/BPD: 77.7 HC/AC: 1.1 GESTATIONAL AGE: Age by EDC: 20 weeks 0 days LILIAN by EDC: 11/06/23 Age by current US: 20 weeks 6 days LILIAN by current US: 10/31/23 US/US OB cervical length IMPRESSION: Nonvisualization of the nose, lips, three-vessel cord Borderline low amniotic fluid volume *Reference: [employer] Practice Guideline for the performance of Obstetric Ultrasound Examinations, January 08, 2007. Electronically authenticated by: DONALD AGUILAR Date: 06/19/2023 15:19
--- NOTE | 2023-06-19 13:13 | US_ITS ---
[address] [address] Patient Name: EDISON ASHLEY MRN: [id number] date: 2000 Sex: F Assigned Patient Location: [facility] Current Patient Location: [facility] Accession/Order Number: [id number] Exam Date: 06/19/2023 13:15 Report Date: 06/19/2023 15:19 At the request of: XIN GRULLON Procedure: US OB anatomy EXAMINATION: US OB anatomy, US OB cervical length HISTORY: anatomic survey Z36.89 COMPARISON: No relevant comparison available. TECHNIQUE: Transabdominal sonographic examination was performed for obstetrical and evaluation. FINDINGS: Number: 1 Heart Rate: Not recorded Amniotic Fluid Volume: Subjectively low, YO 10.3 cm Placental Location: Anterior fundal, the placental edge is 4.8 cm from the internal os. Grade 0 position: Breech presentation, transverse lie Cervix Length: 4.5 cm , closed Normal anatomy: Lateral ventricles, cerebellum, posterior fossa, orbits, four-chamber heart, RVOT, LVOT, diaphragm, stomach, kidneys, abdominal portions, bladder, umbilical arteries, spine, extremities Nonvisualization of anatomy: nose, lips, three-vessel cord BIOMETRY: BPD: 4.6 cm 19 weeks 6 days , 42% HC: 18.2 cm 20 weeks 4 days, 71% AC: 16.4 cm 21 weeks 3 days, 86% FL: 3.6 cm 21 weeks 2 days , 82% EFW:406.8 grams; 14 oz, 97% FL/AC: 21.7 FL/BPD: 77.7 HC/AC: 1.1 GESTATIONAL AGE: Age by EDC: 20 weeks 0 days LILIAN by EDC: 11/06/23 Age by current US: 20 weeks 6 days LILIAN by current US: 10/31/23 US/US OB anatomy IMPRESSION: Nonvisualization of the nose, lips, three-vessel cord Borderline low amniotic fluid volume *Reference: [facility] Practice Guideline for the performance of Obstetric Ultrasound Examinations, January 08, 2007. Electronically authenticated by: DONALD AGUILAR Date: 06/19/2023 15:19
--- OUTSIDE RECORDS SUMMARY | 2023-06-19 13:15 | XMS_ITS | CCD ---
Author Name Unknown Address [address] [place] [address] Organization [facility] Care Team Providers Care Senior Materials Planner Name Role Phone [place], Dickson W Unavailable Unavailable [place], Dickson W Unavailable Unavailable No Doctor Assigned, Nodr Unavailable Unavail able Galdino, Dickson W Unavailable Unavailable [place], Dickson W Unavailable Unavailable No Doctor Assigned, Nodr Unavailable Unavail able SHEMAR ., STEFAN Admitting Unavailable SHEMAR ., STEFAN Consulting Unavailable AICHHOLZ, MEAT STUFFER SUPRIYA Primary Care Unavailable SHEMAR ., STEFAN Attending Unavailable MORTEZA ., DR LAUREN Admitting Unavailable SHEMAR ., STEFAN Consulting Unavailable AICHHOLZ, MEAT STUFFER SUPRIYA Primary Care Unavailable MORTEZA ., DR LAUREN Attending Unavailable SHEMAR ., STEFAN Admitting Unavailable SHEMAR ., STEFAN Consulting Unavailable SHEMAR ., STEFAN Attending Unavailable AICHHOLZ, MEAT STUFFER SUPRIYA Primary Care Unavailable AICHHOLZ, MEAT STUFFER SUPRIYA Primary Care Unavailable MORTEZA ., DR LAUREN Attending Unavailable MORTEZA ., DR LAUREN Admitting Unavailable MORTEZA ., DR LAUREN Admitting Unavailable MORTEZA ., DR LAUREN Attending Unavailable AICHHOLZ, MEAT STUFFER SUPRIYA Primary Care Unavailable MORTEZA ., DR LAUREN Consulting Unavailable KARASIK ., DR MURPHY Attending Unavailabl e AICHHOLZ, MEAT STUFFER SUPRIYA Primary Care Unavailable KARASIK ., DR [...] MORTEZA ., DR LAUREN Consulting Unavailable AICHHOLZ, MEAT STUFFER SUPRIYA Primary Care Unavailable MORTEZA ., DR LAUREN Attending Unavailable Zieber, Tristan Consulting Unavailable MORTEZA ., DR LAUREN Consulting Unavailable REQUEST, DR NONE LISTED Primary Care Unavaila ble MORTEZA ., DR LAUREN Attending Unavailable MORTEZA ., DR LAUREN Admitting Unavailable Tristan Hart Consulting Unavailable MORTEZA ., DR LAUREN Admitting Unavailable AICHHOLZ, MEAT STUFFER SUPRIYA Primary Care Unavailable MORTEZA ., DR LAUREN Attending Unavailable CASTLEWOOD, DR DONALD Bryan Consulting Unavailable MORTEZA ., DR LAUREN Consulting Unavailable MORTEZA ., DR LAUREN Admitting Unavailable AICHHOLZ, MEAT STUFFER SUPRIYA Primary Care Unavailable MORTEZA ., DR LAUREN Attending Unavailable MORTEZA ., DR LAUREN Consulting Unavailable SHEMAR ., STEFAN Attending Unavailable SHEMAR ., STEFAN Admitting Unavailable Zieber, Tristan Consulting Unavailable REQUEST, DR NONE LISTED Primary Care Unavaila ble SHEMAR ., STEFAN Consulting Unavailable MORTEZA ., DR LAUREN Admitting Unavailable MORTEZA ., DR LAUREN Consulting Unavailable MORTEZA ., DR LAUREN Attending Unavailable AICHHOLZ, MEAT STUFFER SUPRIYA Primary Care Unavailable Aictanvi, Supriya J Primary Care Provider MD Jakcy Alarcon Emergency Provider Jcaky Alarcon Attending Unavailable Jacky Alarcon Admitting Unavailable AicSupriya finch Primary Care Unavailable Aichholz BIRTHING NURSE-MEAT STUFFER, Supriya J Primary Care Provider XIN PRO [...] Propensity to adverse reactions to drug (disorder) [facility] Repository Medications Current Medications Medication Drug [...] applicable or unspecified; Translations: [[facility] UNS] Onset: 06-06-2022 Episodic Other [...] WITH AUTO DIFFon BASOPHILS ABSOLUTE AUTO 0.0 [facility] Basophils/100 WBC (Bld) 0.3 % 0.2 - 2.0 % [facility] Eosinophils/100 WBC (Bld) 2.0 % 0.9 - 7.0 % [facility] Erythrocyte distribution width (RBC) [Ratio] 12.8 % 11.0 - 15.0 % [facility] Hematocrit (Bld) [Volume fraction] 39.3 % 36.0 - 48.0 % [facility] Hemoglobin (Bld) [Mass/Vol] 14.1 g/dL 12.0 - 16.0 g/dL [facility] IMMATURE GRANULOCYTES ABS AUTO 0.07 High [facility] Immature granulocytes/100 WBC (Bld) 0.7 % High 0.0 - 0.5 % [facility] Interpretation and review of laboratory results Abnormal [facility] LYMPHOCYTES ABSOLUTE AUTO 2.0 [facility] Lymphocytes/100 WBC (Bld) 19.1 % Low 20.5 - 60.0 % [facility] MCH (RBC) [Entitic mass] 32.0 pg 26.7 - 34.0 pg [facility] MCHC (RBC) [Mass/Vol] 35.9 g/dL High 29.9 - 35.2 g/dL [facility] MCV (RBC) [Entitic vol] 89.3 fL 81.0 - 99.0 fL [facility] MONOCYTES ABSOLUTE AUTO 0.5 [facility] Monocytes/100 WBC (Bld) 4.7 % 1.7 - 12.0 % [facility] NEUTROPHILS ABSOLUTE AUTO 7.6 High [facility] Neutrophils/100 WBC (Bld) 73.2 % 43.0 - 75.0 % [facility] Platelet mean volume (Bld) [Entitic vol] 11.4 fL 9.5 - 13.5 fL [facility] TBH EO # 0.2 [facility] TB PLT 218 [facility] RBC 4.40 [facility] WBC 10.4 [facility] Surgical Pathologyon 024 Surgical Pathology Normal [facility] Comment on above: Result Comment: [facility] [address] [place] [address] Surgical Pathology Consultation Patient Name:DARY ASHLEY:2000 (Age: 23)Gender:FTaken:4Reported:4Physician(s):GERSON Kelsey To: Rec. #:[id number]: #[id number] Final Pathologic Diagnosis Gallbladder, cholecystectomy: Chronic cholecystitis with organizing hemorrhage and fibroblast proliferation involving gallbladder wall, accompanied by extensive mucosal erosion with reactive changes, and focal ceroid granulomas. No evidence of malignancy or dysplasia. Cholelithiasis. Report Electronically Signed Out ao/05/12/2023olamide Moreno MD Interpretation performed at [facility], [address] [place] [address], License number: [id number]. Clinical History Cholelithiasis. Gross Description Received in [...] congested, hemorrhagic and velvety in the neck. Piece Maker sections are submitted in cassettes A- B, as: A- cystic duct margin and electroplating sales representative ragged defects,B- electroplating sales representative neck body and fundus. After initial microscopic evaluation, additional sections are submitted in cassettes C-E. (5,ss,[id number], m6) MARYJANE/MD merida/05/04/2023SSI Specimen(s) Received Gallbladder Fee Codes(s): 1; 70972 gall bladderon 03-11-2023 gall bladder [facility] [address] [place] [id number] Ultrasound Report Signed Patient: Dary Ashley MR#: [id number] : 2000 Acct:[id number] Age/Sex: 22 / F ADM Date: 03/10/23 Loc: ER Room: Type: [facility] ER Attending Dr: Ordering Provider: [...] Nataliia Scott M.D.03/11/2023 8:10 AM Dictation Location: [place] [address] Tech: Isi Caballero Transcribed By: RONI 03/11/23 0810 Dictated By: Nataliia Scott MD 03/11/23 0807 Signed By: 03/11/23 0810 Normal [facility] Alanine aminotransferase [En zymatic activity/volume] in Serum or PlasmaOrdered By: Jacky Alarcon on 03-10-2023 ALT [Catalytic activity/Vol] 36 U/L 7-52 [facility] Albumin [Mass/volume] in Ser um or Plasma by Bromocresol green (BCG) dye binding methoOrdered By: Jacky Alarcon on 03-10-2023 Albumin BCG dye [Mass/Vol] 4.5 g/dL 3.5-5.7 [facility] Alkaline phosphatase [Enzyma tic activity/volume] in Serum or PlasmaOrdered By: Jacky Alarcon on 03-10-2023 ALP [Catalytic activity/Vol] 71 U/L 34-104 [facility] Aspartate aminotransferase [ Enzymatic activity/volume] in Serum or PlasmaOrdered By: Jacky Alarcon on 03-10-2023 AST [Catalytic activity/Vol] 17 U/L 13-39 [facility] Automated erythrocytes count in urine sediment (number/area)Ordered By: Jacky Alarcon on 03-10-2023 RBC Auto (Urine sed) [#/Area] 50-100 [HPF] 0-4 [facility] Automated leukocytes count i n urine sediment (number/area)Ordered By: Jacky Alarcon on 03-10-2023 WBC Auto (Urine sed) [#/Area] 5-9 [HPF] 0-4 [facility] Basic Metabolic Panelon 12-0 Anion gap [Moles/Vol] 16.5 mmol/L High 6.0-15.0 [facility] Comment on above: Performed By: #### L IPASE, HCGQNT, HEPATIC, BMP, CBC #### [facility] [address] Calcium [Mass/Vol] 9.3 mg/dL Normal 8.6-10.3 [facility] Comment on above: Performed By: #### L IPASE, HCGQNT, HEPATIC, BMP, CBC #### [facility] [address] Chloride [Moles/Vol] 101 mmol/L Normal 98-107 [facility] Comment on above: Performed By: #### L IPASE, HCGQNT, HEPATIC, BMP, CBC #### [facility] [address] CO2 [Moles/Vol] 18.8 mmol/L Low 21.0-31.0 [facility] Comment on above: Performed By: #### L IPASE, HCGQNT, HEPATIC, BMP, CBC #### [address] Creatinine [Mass/Vol] 0.64 mg/dL Normal 0.60-1.20 [facility] Comment on above: Performed By: #### L IPASE, HCGQNT, HEPATIC, BMP, CBC #### [place] [address] [place] Creatinine Clr Calc Pharmacy 148.58 [facility] Comment on above: Performed By: #### L IPASE, HCGQNT, HEPATIC, BMP, CBC #### [place] [address] [place] GFR/1.73 sq M.predicted MDRD (S/P/Bld) [Vol rate/Area] mL/min/{1.73_m2} [facility] Comment on above: Performed By: #### L IPASE, HCGQNT, HEPATIC, BMP, CBC #### [facility] [address] [place] [address] [place] Glucose [Mass/Vol] 83 mg/dL Normal 70-100 [facility] Comment on above: Result Comment: [place] Glucose Reference Range is dependent on time and content of last meal. Glucose of more than 200 mg/dL in a nonstressed, ambulatory subject supports the diagnosis of Diabetes Mellitus. ADA recommended reference range Performed By: #### L IPASE, HCGQNT, HEPATIC, BMP, CBC #### [facility] [address] Potassium [Moles/Vol] 3.3 mmol/L Low 3.5-5.1 [facility] Comment on above: Performed By: #### L IPASE, HCGQNT, HEPATIC, BMP, CBC #### [facility] [address] Sodium [Moles/Vol] 133 mmol/L Low 136-145 [facility] Comment on above: Performed By: #### L IPASE, HCGQNT, HEPATIC, BMP, CBC #### [facility] [address] [place] [address] [place] Urea nitrogen [Mass/Vol] 6 mg/dL Low 7-25 [facility] Comment on above: Performed By: #### L IPASE, HCGQNT, HEPATIC, BMP, CBC #### [facility] [address] Basophils Auto (Bld) [#/Vol] Ordered By: Jacky Alarcon on 03-10-2023 Basophils (Bld) [#/Vol] 0.1 10*3/uL 0.0-0.2 [facility] Basophils/100 WBC Auto (Bld) Ordered By: Jacky Alarcon on 03-10-2023 Basophils/100 WBC (Bld) 0.4 % . [facility] Bilirubin Test strip Ql (U)O rdered By: Jacky Alarcon on 03-10-2023 Bilirubin Ql (U) Negative Negative [facility] Bilirubin.direct [Mass/volum e] in Serum or PlasmaOrdered By: Jacky Alarcon on 03-10-2023 Bilirubin.direct [Mass/Vol] 0.40 mg/dL 0.03-0.18 [facility] Bilirubin.total [Mass/volume ] in Serum or PlasmaOrdered By: Jacky Alarcon on 03-10-2023 Bilirubin [Mass/Vol] 1.2 mg/dL 0.3-1.0 [facility] Calcium [Mass/volume] in Ser um or PlasmaOrdered By: Jacky Alarcon on 03-10-2023 Calcium [Mass/Vol] 9.3 mg/dL 8.6-10.3 [facility] Carbon dioxide, total [Moles /volume] in Serum or PlasmaOrdered By: Jacky Alarcon on 03-10-2023 CO2 [Moles/Vol] 18.8 mmol/L 21.0-31.0 [facility] Chloride [Moles/volume] in S rahul or PlasmaOrdered By: Jacky Alarcon on 03-10-2023 Chloride [Moles/Vol] 101 mmol/L 98-107 [facility] Choriogonadotropin.beta subu nit [Units/volume] in Serum or PlasmaOrdered By: Jacky Alarcon on 03-10-2023 [place] [address].00 m[IU]/mL [facility] Comment on above: Approximate Approxim ate hCG Gestational Age Range (mIU/ml) (weeks)0.2-1 5-50 1-2 50-500 2-3 100-5,000 3-4 500-10,000 4-5 1,000-50,000 5-6 10,000-100,000 6-8 15,000-200,000 8-12 10,000-100,000 Color Auto (U)Ordered By: Corinna Alarcon on 03-10-2023 Color (U) Dark yellow Yellow [facility] Complete Blood Count Auto Di ffon 03-10-2023 Basophils (Bld) [#/Vol] 0.1 10*3/uL Normal 0.0-0.2 [facility] Comment on above: Result Comment: PERF ORMED BY: [facility] [address] [place] [address] PATHOLOGIST HUMAN RESOURCES MGR ANDRÉS MACEDO M.D. Performed By: #### L IPASE, HCGQNT, HEPATIC, BMP, CBC #### [address] Basophils/100 WBC (Bld) 0.4 % Normal . [facility] Comment on above: Performed By: #### L IPASE, HCGQNT, HEPATIC, BMP, CBC #### [address] Eosinophils (Bld) [#/Vol] 0.1 10*3/uL Normal 0.0-0.45 [facility] Comment on above: Performed By: #### L IPASE, HCGQNT, HEPATIC, BMP, CBC #### [address] Eosinophils/100 WBC (Bld) 0.5 % Normal . [facility] Comment on above: Performed By: #### L IPASE, HCGQNT, HEPATIC, BMP, CBC #### [address] Erythrocyte distribution width (RBC) [Ratio] 13.3 % Normal 11.9-15.3 [facility] Comment on above: Performed By: #### L IPASE, HCGQNT, HEPATIC, BMP, CBC #### [address] Hematocrit (Bld) [Volume fraction] 47.2 % High 34.0-46.4 [facility] Comment on above: Performed By: #### L IPASE, HCGQNT, HEPATIC, BMP, CBC #### [address] Hemoglobin (Bld) [Mass/Vol] 16.5 g/dL High 11.8-15.4 [facility] Comment on above: Performed By: #### L IPASE, HCGQNT, HEPATIC, BMP, CBC #### [address] Lymphocytes (Bld) [#/Vol] 1.9 10*3/uL Normal 1.00-4.8 [facility] Comment on above: Performed By: #### L IPASE, HCGQNT, HEPATIC, BMP, CBC #### [address] Lymphocytes/100 WBC (Bld) 11.6 % Normal . [facility] Comment on above: Performed By: #### L IPASE, HCGQNT, HEPATIC, BMP, CBC #### [address] MCH (RBC) [Entitic mass] 30.8 pg Normal 24.7-34.3 [facility] Comment on above: Performed By: #### L IPASE, HCGQNT, HEPATIC, BMP, CBC #### [address] MCV (RBC) [Entitic vol] 87.8 fL Normal 80-100 [facility] Comment on above: Performed By: #### L IPASE, HCGQNT, HEPATIC, BMP, CBC #### [address] Mean Corpuscular HGB Conc 35.0 g/dL Normal 32.0-35.0 [facility] Comment on above: Performed By: #### L IPASE, HCGQNT, HEPATIC, BMP, CBC #### [address] Monocytes (Bld) [#/Vol] 1.4 10*3/uL High 0.0-0.8 [facility] Comment on above: Performed By: #### L IPASE, HCGQNT, HEPATIC, BMP, CBC #### [place] [address] [place] Monocytes/100 WBC (Bld) 16.05 % Normal 0.00-20.00 [facility] Comment on above: Performed By: #### L IPASE, HCGQNT, HEPATIC, BMP, CBC #### [address] Monocytes/100 WBC (Bld) 8.8 % Normal . [facility] Comment on above: Performed By: #### L IPASE, HCGQNT, HEPATIC, BMP, CBC #### [address] Neutrophils (Bld) [#/Vol] 12.6 10*3/uL High 1.8-7.7 [facility] Comment on above: Performed By: #### L IPASE, HCGQNT, HEPATIC, BMP, CBC #### [address] Neutrophils/100 WBC (Bld) 78.7 % Normal . [facility] Comment on above: Performed By: #### L IPASE, HCGQNT, HEPATIC, BMP, CBC #### [address] NRBC% 0.1 /100{WBC} Normal 0-0.5 [facility] Comment on above: Performed By: #### L IPASE, HCGQNT, HEPATIC, BMP, CBC #### [address] Platelet mean volume (Bld) [Entitic vol] 9.7 fL Normal 6.3-10.7 [facility] Comment on above: Performed By: #### L IPASE, HCGQNT, HEPATIC, BMP, CBC #### [place] [address] [place] Platelets (Bld) [#/Vol] 263 10*3/uL Normal 150-450 [facility] Comment on above: Performed By: #### L IPASE, HCGQNT, HEPATIC, BMP, CBC #### [address] RBC (Bld) [#/Vol] 5.37 10*6/uL High 3.60-5.00 [facility] Comment on above: Performed By: #### L IPASE, HCGQNT, HEPATIC, BMP, CBC #### [place] [address] [place] WBC (Bld) [#/Vol] 16.0 10*3/uL High 3.8-11.6 [facility] Comment on above: Performed By: #### L IPASE, HCGQNT, HEPATIC, BMP, CBC #### [address] [place] [address] [place] Creatinine [Mass/volume] in Serum or PlasmaOrdered By: Jacky Alarcon on 03-10-2023 Creatinine [Mass/Vol] 0.64 mg/dL 0.60-1.20 [facility] Dipstick and Microscopicon 1 05-11-2022 Appearance (U) Turbid Critically abnormal Clear [facility] Comment on above: Order Comment: Name Collection Type:: Clean-Voided Midstream Performed By: #### A DDONUAPLUS, CUU #### [place] [address] [place] Bacteria,Urine Rare High None Seen [facility] Comment on above: Order Comment: Name Collection Type:: Clean-Voided Midstream Performed By: #### A DDONUAPLUS, CUU #### [place] [address] [place] Bilirubin,Urine Negative Normal Negative [facility] Comment on above: Order Comment: Name Collection Type:: Clean-Voided Midstream Performed By: #### A DDONUAPLUS, CUU #### [place] [address] [place] Color (U) Dark Yellow Critically abnormal Yellow [facility] Comment on above: Order Comment: Name Collection Type:: Clean-Voided Midstream Performed By: #### A DDONUAPLUS, CUU #### [facility] [address] [place] [address] [place] Glucose Ql (U) Normal Normal Normal [facility] Comment on above: Order Comment: Name Collection Type:: Clean-Voided Midstream Performed By: #### A DDONUAPLUS, CUU #### [facility] [address] [place] [address] [place] Hyaline Casts,Urine 9-19 High 0-8 [facility] Comment on above: Order Comment: Name Collection Type:: Clean-Voided Midstream Result Comment: PERF ORMED BY: [place] [address] PATHOLOGIST HUMAN RESOURCES MGR ANDRÉS MACEDO M.D. Performed By: #### A DDONUAPLUS, CUU #### [facility] [address] [place] [address] [place] Ketones Ql (U) 4+ High Negative [facility] Comment on above: Order Comment: Name Collection Type:: Clean-Voided Midstream Performed By: #### A DDONUAPLUS, CUU #### [address] Leukocyte esterase Test strip Ql (U) 1+ High Negative [facility] Comment on above: Order Comment: Name Collection Type:: Clean-Voided Midstream Performed By: #### A DDONUAPLUS, CUU #### [place] [address] [place] Nitrite,Urine Negative Normal Negative [facility] Comment on above: Order Comment: Name Collection Type:: Clean-Voided Midstream Performed By: #### A DDONUAPLUS, CUU #### [place] [address] [place] Occult Blood,Urine 3+ High Negative [facility] Comment on above: Order Comment: Name Collection Type:: Clean-Voided Midstream Result Comment: PERF ORMED BY: [place] [address] PATHOLOGIST HUMAN RESOURCES MGR ANDRÉS MACEDO M.D. Performed By: #### A DDONUAPLUS, CUU #### [address] Othe Crystals,Urine Normal [facility] Comment on above: Order Comment: Name Collection Type:: Clean-Voided Midstream Result Comment: sulf a crystals Performed By: #### A DDONUAPLUS, CUU #### [place] [address] [place] pH (U) 6.5 [pH] Normal 5.0-9.0 [facility] Comment on above: Order Comment: Name Collection Type:: Clean-Voided Midstream Performed By: #### A DDONUAPLUS, CUU #### [place] [address] [place] Protein (U) [Mass/Vol] 100 mg/dL High Negative [facility] Comment on above: Order Comment: Name Collection Type:: Clean-Voided Midstream Performed By: #### A DDONUAPLUS, CUU #### [address] RBC,Urine 50-100 High 0-4 [facility] Comment on above: Order Comment: Name Collection Type:: Clean-Voided Midstream Performed By: #### A DDONUAPLUS, CUU #### [address] Specificy [place],Urine 1.029 Normal 1.001-1.03 0 [facility] Comment on above: Order Comment: Name Collection Type:: Clean-Voided Midstream Performed By: #### A DDONUAPLUS, CUU #### [address] Squamous Epithelial Cell,Urine 1-2 Normal 0-2 [facility] Comment on above: Order Comment: Name Collection Type:: Clean-Voided Midstream Performed By: #### A DDONUAPLUS, CUU #### [address] Urobilinogen,Urine Normal Normal Normal [facility] Comment on above: Order Comment: Name Collection Type:: Clean-Voided Midstream Performed By: #### A DDONUAPLUS, CUU #### [facility] [address] [place] [address] WBC,Urine 5-9 High 0-4 [facility] Comment on above: Order Comment: Name Collection Type:: Clean-Voided Midstream Performed By: #### A DDONUAPLUS, CUU #### [place] [address] [place] Eosinophils Auto (Bld) [#/Vo l]Ordered By: Jacky Alarcon on 03-10-2023 Eosinophils (Bld) [#/Vol] 0.1 10*3/uL 0.0-0.45 [facility] Eosinophils/100 WBC Auto (Bl d)Ordered By: Jacky Alarcon on 03-10-2023 Eosinophils/100 WBC (Bld) 0.5 % . [facility] Erythrocyte distribution wid th Auto (RBC) [Ratio]Ordered By: Jacky Alarcon on 03-10-2023 Erythrocyte distribution width (RBC) [Ratio] 13.3 % 11.9-15.3 [facility] Globulin Calc (S) [Mass/Vol] Ordered By: Jacky Alarcon on 03-10-2023 Globulin (S) [Mass/Vol] 3.5 g/dL [facility] Glucose [Mass/volume] in Ser um or PlasmaOrdered By: Jacky Alarcon on 03-10-2023 Glucose [Mass/Vol] 83 mg/dL 70-100 [facility] Comment on above: ADA recommended refe rence rangeRandom Glucose Reference Range is dependent on time and content of last meal. Glucose of more than 200 mg/dL in a nonstressed, ambulatory subject supports the diagnosis of Diabetes Mellitus. HCG ( test) IA.lamontei d Ql (U)Ordered By: Jacky Alarcon on 03-10-2023 HCG ( test) Ql (U) Positive [facility] HCG,Quantitativeon 3 HCG,Quantitative 30171.00 m[iU]/mL Normal F [facility] Comment on above: Result Comment: Appr oximate Approximate hCG Gestational Age Range (mIU/ml) (weeks) 0.2-1 5-50 1-2 50-500 2-3 100-5,000 3-4 500-10,000 4-5 1,000-50,000 5-6 10,000-100,000 6-8 15,000-200,000 8-12 10,000-100,000 PERFORMED BY: [place] [address] PATHOLOGIST HUMAN RESOURCES MGR ANDRÉS MACEDO M.D. Performed By: #### L IPASE, HCGQNT, HEPATIC, BMP, CBC #### [address] HCG,Urineon 03-10-2023 Beta HCG ( test) Ql (U) Positive High [facility] Comment on above: Result Comment: PERF ORMED BY: [place] [address] PATHOLOGIST HUMAN RESOURCES MGR ANDRÉS MACEDO M.D. Performed By: #### U HCG #### [facility] [address] Hematocrit Auto (Bld) [Volum e fraction]Ordered By: Jacky Alarcon on 03-10-2023 Hematocrit (Bld) [Volume fraction] 47.2 % 34.0-46.4 [facility] Hemoglobin [Mass/volume] in BloodOrdered By: Jacky Alarcon on 03-10-2023 Hemoglobin (Bld) [Mass/Vol] 16.5 g/dL 11.8-15.4 [facility] Hepatic Panelon 03-10-2023 Albumin [Mass/Vol] 4.5 g/dL Normal 3.5-5.7 [facility] Comment on above: Performed By: #### L IPASE, HCGQNT, HEPATIC, BMP, CBC #### [facility] [address] Albumin/Globulin [Mass ratio] 1.3 {ratio} Normal [facility] Comment on above: Performed By: #### L IPASE, HCGQNT, HEPATIC, BMP, CBC #### [facility] [address] [place] [address] [place] ALP [Catalytic activity/Vol] 71 U/L Normal 34-104 [facility] Comment on above: Performed By: #### L IPASE, HCGQNT, HEPATIC, BMP, CBC #### [facility] [address] [place] [address] [place] ALT [Catalytic activity/Vol] 36 U/L Normal 7-52 [facility] Comment on above: Performed By: #### L IPASE, HCGQNT, HEPATIC, BMP, CBC #### [facility] [address] [place] [address] [place] AST [Catalytic activity/Vol] 17 U/L Normal 13-39 [facility] Comment on above: Performed By: #### L IPASE, HCGQNT, HEPATIC, BMP, CBC #### [facility] [address] [place] [address] [place] Bilirubin [Mass/Vol] 1.2 mg/dL High 0.3-1.0 [facility] Comment on above: Performed By: #### L IPASE, HCGQNT, HEPATIC, BMP, CBC #### [facility] [address] Bilirubin,Indirect 0.8 mg/dL Normal [facility] Comment on above: Performed By: #### L IPASE, HCGQNT, HEPATIC, BMP, CBC #### [facility] [address] Bilirubin.indirect [Mass/Vol] 0.40 mg/dL High 0.03-0.18 [facility] Comment on above: Performed By: #### L IPASE, HCGQNT, HEPATIC, BMP, CBC #### [facility] [address] Globulin (S) [Mass/Vol] 3.5 g/dL Normal [facility] Comment on above: Performed By: #### L IPASE, HCGQNT, HEPATIC, BMP, CBC #### [facility] [address] Protein [Mass/Vol] 8.0 g/dL Normal 6.4-8.9 [facility] Comment on above: Performed By: #### L IPASE, HCGQNT, HEPATIC, BMP, CBC #### [facility] [address] Ketones Auto test strip (U) [Mass/Vol]Ordered By: Jacky Alarcon on 03-10-2023 Ketones (U) [Mass/Vol] 4+ Negative [facility] - UrinalysisOrder ed By: Jacky Alarcon on 03-10-2023 Hyaline casts LM Ql (Urine sed) 9-19 [LPF] 0-8 [facility] Leukocytes [#/volume] correc anabell for nucleated erythrocytes in Blood by Automated counOrdered By: Jacky Alarcon on 03-10-2023 WBC corrected for nucl RBC Auto (Bld) [#/Vol] 16.0 10*3/uL 3.8-11.6 [facility] Lipaseon 03-10-2023 Lipase [Catalytic activity/Vol] 35.0 U/L Normal 11.0-82.0 [facility] Comment on above: Result Comment: PERF ORMED BY: [facility] [address] [place] [address] PATHOLOGIST HUM[employer] MGR ANDRÉS MACEDO M.D. Performed By: #### L IPASE, HCGQNT, HEPATIC, BMP, CBC #### [facility] [address] Lipase [Enzymatic activity/v olume] in Serum or PlasmaOrdered By: Jacky Alarcon on 03-10-2023 Lipase [Catalytic activity/Vol] 35.0 U/L 11.0-82.0 [facility] Lymphocytes Auto (Bld) [#/Vo l]Ordered By: Jacky Alarcon on 03-10-2023 Lymphocytes (Bld) [#/Vol] 1.9 10*3/uL 1.00-4.8 [facility] Lymphocytes/100 WBC Auto (Bl d)Ordered By: Jacky Alarcon on 03-10-2023 Lymphocytes/100 WBC (Bld) 11.6 % . [facility] MCH Auto (RBC) [Entitic mass ]Ordered By: Jacky Alarcon on 03-10-2023 MCH (RBC) [Entitic mass] 30.8 pg 24.7-34.3 [facility] MCHC Auto (RBC) [Mass/Vol]Or dered By: Jacky Alarcon on 03-10-2023 MCHC (RBC) [Mass/Vol] 35.0 g/dL 32.0-35.0 [facility] MCV Auto (RBC) [Entitic vol] Ordered By: Jacky Alarcon on 03-10-2023 MCV (RBC) [Entitic vol] 87.8 fL 80-100 [facility] Monocyte distribution width [Entitic volume] in Blood by AutomatedOrdered By: Jacky Alarcon on 03-10-2023 Monocyte distribution width Auto (Bld) [Entitic vol] 16.05 % 0.00-20.00 [facility] Monocytes Auto (Bld) [#/Vol] Ordered By: Jacky Alarcon on 03-10-2023 Monocytes (Bld) [#/Vol] 1.4 10*3/uL 0.0-0.8 [facility] Monocytes/100 WBC Auto (Bld) Ordered By: Jacky Alarcon on 03-10-2023 Monocytes/100 WBC (Bld) 8.8 % . [facility] Neutrophils Auto (Bld) [#/Vo l]Ordered By: Jacky Alarcon on 03-10-2023 Neutrophils (Bld) [#/Vol] 12.6 10*3/uL 1.8-7.7 [facility] Neutrophils/100 WBC Auto (Bl d)Ordered By: Jacky Alarcon on 03-10-2023 Neutrophils/100 WBC (Bld) 78.7 % . [facility] Nitrite Test strip Ql (U)Ord ered By: Jacky Alarcon on 03-10-2023 Nitrite Ql (U) Negative Negative [facility] No Panel InformationOrdered By: Jacky Alarcon on 03-10-2023 Estimated GFR (CKD-EPI) > 60.0 mL/Min [facility] Creatinine Clearance (Chem 148.58 [facility] Nucleated erythrocytes [Pres ence] in Blood by Automated countOrdered By: Jacky Alarcon on 03-10-2023 Nucleated RBC Auto Ql (Bld) 0.1 /100{WBC} 0-0.5 [facility] Platelet mean volume Auto (B ld) [Entitic vol]Ordered By: Jacky Alarcon on 03-10-2023 Platelet mean volume (Bld) [Entitic vol] 9.7 fL 6.3-10.7 [facility] Platelets Auto (Bld) [#/Vol] Ordered By: Jacky Alarcon on 03-10-2023 Platelets (Bld) [#/Vol] 263 10*3/uL 150-450 [facility] Potassium [Moles/volume] in Serum or PlasmaOrdered By: Jacky Alarcon on 03-10-2023 Potassium [Moles/Vol] 3.3 mmol/L 3.5-5.1 [facility] Protein Auto test strip (U) [Mass/Vol]Ordered By: Jacky Alarcon on 03-10-2023 Protein (U) [Mass/Vol] 100 mg/dL Negative [facility] Protein [Mass/volume] in Ser um or PlasmaOrdered By: Jacky Alarcon on 03-10-2023 Protein [Mass/Vol] 8.0 g/dL 6.4-8.9 [facility] RBC Auto (Bld) [#/Vol]Ordere d By: Jacky Alarcon on 03-10-2023 RBC (Bld) [#/Vol] 5.37 10*6/uL 3.60-5.00 [facility] Serum or plasma albumin/glob ulin mass ratioOrdered By: Jacky Alarcon on 03-10-2023 Albumin/Globulin [Mass ratio] 1.3 {ratio} [facility] Serum or plasma anion gap de terminationOrdered By: Jacky Alarcon on 03-10-2023 Anion gap [Moles/Vol] 16.5 mmol/L 6.0-15.0 [facility] Serum or plasma non-glucuron idated bilirubin measurement (mass/volume)Ordered By: Jacky Alarcon on 03-10-2023 Bilirubin.indirect [Mass/Vol] 0.8 mg/dL [facility] Sodium [Moles/volume] in Ser um or PlasmaOrdered By: Jacky Alarcon on 03-10-2023 Sodium [Moles/Vol] 133 mmol/L 136-145 [facility] Specific gravity Auto test s trip (U) [Rel density]Ordered By: Jacky Alarcon on 03-10-2023 Specific gravity (U) [Rel density] 1.029 1.001-1.03 0 [facility] Squamous epithelial cells de tection in urine sediment by light microscopyOrdered By: Jacky Alarcon on 03-10-2023 Epithelial cells.squamous LM Ql (Urine sed) 1-2 [HPF] 0-2 [facility] Urea nitrogen [Mass/volume] in Serum or PlasmaOrdered By: Jacky Alarcon on 03-10-2023 Urea nitrogen [Mass/Vol] 6 mg/dL 7-25 [facility] Urine Cultureon 03-10-2023 Bacteria identified Cx Nom (U) >100,000 colonies/ml mixed bacterial skin contaminants 2 Days PERFORMED BY: [facility] [address] [place] [address] PATHOLOGIST [employer]UM[employer] MGR ANDRÉS MACEDO M.D. Normal [facility] Comment on above: Performed By: #### A JOHN BACON #### [facility] [address] Urine bacteria detection by automated methodOrdered By: Jacky Alarcon on 03-10-2023 Bacteria Auto Ql (U) Rare None Seen [facility] Urine clarity by refractomet ry automatedOrdered By: Jacky Alarcon on 03-10-2023 Clarity Refractometry automated (U) Turbid Clear [facility] Urine glucose measurement by automated test strip (mass/volume)Ordered By: Jacky Alarcon on 03-10-2023 Glucose Auto test strip (U) [Mass/Vol] Normal mg/dL Normal [facility] Urine hemoglobin detection b y automated test stripOrdered By: Jacky Alarcon on 03-10-2023 Hemoglobin Auto test strip Ql (U) 3+ Negative [facility] Urine leukocyte esterase det ection by automated test stripOrdered By: Jacky Alarcon on 03-10-2023 Leukocyte esterase Auto test strip Ql (U) 1+ Negative [facility] Urine sediment crystal ident ification by light microscopyOrdered By: Jacky Alarcon on 03-10-2023 Crystals LM Nom (Urine sed) See comment [facility] Comment on above: sulfa crystals Urobilinogen Auto test strip (U) [Mass/Vol]Ordered By: Jacky Alarcon on 03-10-2023 Urobilinogen (U) [Mass/Vol] Normal mg/dL Normal [facility] WBC Auto (Bld) [#/Vol]Ordere d By: Jacky Alarcon on 03-10-2023 WBC (Bld) [#/Vol] 16.0 10*3/uL 3.8-11.6 [facility] pH Auto test strip (U)Ordere d By: Jacky Alarcon on 03-10-2023 pH (U) 6.5 [pH] 5.0-9.0 [facility] CBC AUTO DIFFon 07-30-2022 BASO # 0.1 103/ul Normal 0.0-0.1 [facility] Comment on above: Performed By: #### G [id number] #### [facility] [address] [place], [place] [address] Dr. Jackelyn Celestin Basophils/100 WBC (Bld) 0.6 % Normal 0.2-2.0 [facility] Comment on above: Performed By: #### G TT3P #### [facility] [address] [place] [address] Dr. Jackelyn Celestin EO # 0.2 103/ul Normal 0.0-0.7 [facility] Comment on above: Performed By: #### G TT3P #### [facility] [address] [place] [address] Dr. Jackelyn Celestin Eosinophils/100 WBC (Bld) 1.5 % Normal 0.9-7.0 [facility] Comment on above: Performed By: #### G [id number] #### [facility] [address] [place] [address] Dr. Jackelyn Celestin Erythrocyte distribution width (RBC) [Ratio] 14.5 % Normal 11.0-15.0 [facility] Comment on above: Performed By: #### G TT3P #### [facility] [address] [place] [address] Dr. Jackelyn Celestin Hematocrit (Bld) [Volume fraction] 33.9 % Critically low 36.0-48.0 [facility] Comment on above: Performed By: #### G TT3P #### [facility] [address] [place] [address] Dr. Jackelyn Celestin Hemoglobin (Bld) [Mass/Vol] 11.0 g/dL Critically low 12.0-16.0 [facility] Comment on above: Performed By: #### G TT3P #### [facility] [address] [place] [address] Dr. Jackelyn Celestin IG # 0.13 10e3/ul Critically high 0.00-0.03 [facility] Comment on above: Performed By: #### G TT3P #### [facility] [address] [place] [address] Dr. Jackelyn Celestin IG % 1.1 % Critically high 0.0-0.5 [facility] Comment on above: Performed By: #### G TT3P #### [facility] [address] [place] [address] Dr. Jackelyn Celestin LYMPH # 2.2 103/ul Normal 1.2-3.8 [facility] Comment on above: Performed By: #### G TT3P #### [facility] [address] [place] [address] Dr. Jackelyn Celestin Lymphocytes/100 WBC (Bld) 17.9 % Critically low 20.5-60.0 [facility] Comment on above: Performed By: #### G TT3P #### [facility] [address] [place] [address] Dr. Jackelyn Celestin MANUAL DIFF REQ NO Normal [facility] Comment on above: Performed By: #### G TT3P #### [facility] [address] [place] [address] Dr. Jackelyn Celestin MCH (RBC) [Entitic mass] 28.6 pg Normal 26.7-34.0 [facility] Comment on above: Performed By: #### G TT3P #### [facility] [address] [place] [address] Dr. Jackelyn Celestin MCHC (RBC) [Mass/Vol] 32.4 g/dL Normal 29.9-35.2 [facility] Comment on above: Performed By: #### G TT3P #### [facility] [address] [place] [address] Dr. Jackelyn Celestin MCV (RBC) [Entitic vol] 88.1 fL Normal 81.0-99.0 [facility] Comment on above: Performed By: #### G TT3P #### [facility] [address] [place] [address] Dr. Jackelyn Celestin MONO # 0.8 103/ul Normal 0.3-0.8 [facility] Comment on above: Performed By: #### G TT3P #### [facility] [address] [place] [address] Dr. Jackelyn Celestin Monocytes/100 WBC (Bld) 6.9 % Normal 1.7-12.0 [facility] Comment on above: Performed By: #### G TT3P #### [facility] [address] [place] [address] Dr. Jackelyn Celestin NEUT # 8.7 103/ul Critically high 1.4-6.5 [facility] Comment on above: Performed By: #### G TT3P #### [facility] [address] [place] [address] Dr. Jackelyn Celestin Neutrophils/100 WBC (Bld) 72.0 % Normal 43.0-75.0 [facility] Comment on above: Performed By: #### G TT3P #### [facility] [address] [place] [address] Dr. Jackelyn Celestin Platelet mean volume (Bld) [Entitic vol] 11.5 fL Normal 9.5-13.5 [facility] Comment on above: Performed By: #### G TT3P #### [facility] [address] [place] [address] Dr. Jackelyn Celestin PLT 146 103/ul Critically low 150-450 [facility] Comment on above: Performed By: #### G TT3P #### [facility] [address] [place] [address] Dr. Jackelyn Celestin RBC 3.85 106/ul Critically low 4.20-5.40 [facility] Comment on above: Performed By: #### G TT3P #### [facility] [address] [place] [address] Dr. Jackelyn Celestin WBC 12.1 103/ul Critically high 4.0-11.0 [facility] Comment on above: Performed By: #### G TT3P #### [facility] [address] [place] [address] Dr. Jackelyn Celestin CBC AUTO DIFFon 07-29-2022 BASO # 0.0 103/ul Normal 0.0-0.1 [facility] Comment on above: Performed By: #### [id number] #### [facility] [address] [place] [address] Dr. Jackelyn Celestin Basophils/100 WBC (Bld) 0.4 % Normal 0.2-2.0 [facility] Comment on above: Performed By: #### 4 [id number] #### [facility] [address] [place] [address] Dr. Jackelyn Celestin EO # 0.2 103/ul Normal 0.0-0.7 [facility] Comment on above: Performed By: #### 4 [id number] #### [facility] [address] [place] [address] Dr. Jackelyn Celestin Eosinophils/100 WBC (Bld) 1.4 % Normal 0.9-7.0 [facility] Comment on above: Performed By: #### 4 [id number] #### [facility] [address] [place] [address] Dr. Jackelyn Celestin Erythrocyte distribution width (RBC) [Ratio] 14.1 % Normal 11.0-15.0 [facility] Comment on above: Performed By: #### 4 [id number] #### [facility] [address] [place] [address] Dr. Jackelyn Celestin Hematocrit (Bld) [Volume fraction] 36.0 % Normal 36.0-48.0 [facility] Comment on above: Performed By: #### 4 [id number] #### [facility] [address] [place] [address] Dr. Jackelyn Celestin Hemoglobin (Bld) [Mass/Vol] 12.2 g/dL Normal 12.0-16.0 [facility] Comment on above: Performed By: #### 4 [id number] #### [facility] [address] [place] [address] Dr. Jackelyn Celestin IG # 0.10 10e3/ul Critically high 0.00-0.03 [facility] Comment on above: Performed By: #### 4 [id number] #### [facility] [address] [place] [address] Dr. Jackelyn Celestin IG % 0.9 % Critically high 0.0-0.5 [facility] Comment on above: Performed By: #### 4 [id number] #### [facility] [address] [place] [address] Dr. Jackelyn Celestin LYMPH # 1.9 103/ul Normal 1.2-3.8 [facility] Comment on above: Performed By: #### 4 [id number] #### [facility] [address] [place] [address] Dr. Jackelyn Celestin Lymphocytes/100 WBC (Bld) 17.7 % Critically low 20.5-60.0 [facility] Comment on above: Performed By: #### 4 [id number] #### [facility] [address] [place] [address] Dr. Jackelyn Celestin MANUAL DIFF REQ NO Normal [facility] Comment on above: Performed By: #### 4 [id number] #### [facility] [address] [place] [address] Dr. Jackelyn Celestin MCH (RBC) [Entitic mass] 28.8 pg Normal 26.7-34.0 [facility] Comment on above: Performed By: #### 4 [id number] #### [facility] [address] [place] [address] Dr. Jackelyn Celestin MCHC (RBC) [Mass/Vol] 33.9 g/dL Normal 29.9-35.2 [facility] Comment on above: Performed By: #### 4 [id number] #### [facility] [address] [place] [address] Dr. Jackelyn Celestin MCV (RBC) [Entitic vol] 84.9 fL Normal 81.0-99.0 [facility] Comment on above: Performed By: #### 4 [id number] #### [facility] [address] [place] [address] Dr. Jackelyn Celestin MONO # 0.9 103/ul Critically high 0.3-0.8 [facility] Comment on above: Performed By: #### 4 [id number] #### [facility] [address] [place] [address] Dr. Jackelyn Celestin Monocytes/100 WBC (Bld) 8.4 % Normal 1.7-12.0 [facility] Comment on above: Performed By: #### 4 [id number] #### [facility] [address] [place] [address] Dr. Jackelyn Celestin NEUT # 7.7 103/ul Critically high 1.4-6.5 [facility] Comment on above: Performed By: #### 4 [id number] #### [facility] [address] [place] [address] Dr. Jackelyn Celestin Neutrophils/100 WBC (Bld) 71.2 % Normal 43.0-75.0 [facility] Comment on above: Performed By: #### 4 [id number] #### [facility] [address] [place] [address] Dr. Jackelyn Celestin Platelet mean volume (Bld) [Entitic vol] 10.9 fL Normal 9.5-13.5 [facility] Comment on above: Performed By: #### 4 [id number] #### [facility] [address] [place] [address] Dr. Jackelyn Celestin PLT 170 103/ul Normal 150-450 [facility] Comment on above: Performed By: #### 4 [id number] #### [facility] [address] [place] [address] Dr. Jackelyn Celestin RBC 4.24 106/ul Normal 4.20-5.40 [facility] Comment on above: Performed By: #### 4 [id number] #### [facility] [address] [place] [address] Dr. Jackelyn Celestin WBC 10.8 103/ul Normal 4.0-11.0 [facility] Comment on above: Performed By: #### 4 [id number] #### [facility] [address] [place] [address] Dr. Jackelyn Celestin DRUG SCREEN RAPID (URINE)on 07-29-2022 AMP Negative Normal NEGATIVE [facility] Comment on above: Performed By: #### 4 [id number] #### [facility] [address] [place] [address] Dr. Jackelyn Celestin BAR Negative Normal NEGATIVE [facility] Comment on above: Performed By: #### 4 [id number] #### [facility] [address] [place] [address] Dr. Jackelyn Celestin BUP Negative Normal NEGATIVE [facility] Comment on above: Performed By: #### 4 [id number] #### [facility] [address] [place] [address] Dr. Jackelyn Celestin BZO Negative Normal NEGATIVE [facility] Comment on above: Performed By: #### 4 [id number] #### [facility] [address] [place] [address] Dr. Jackelyn Celestin HOMERO Negative Normal NEGATIVE [facility] Comment on above: Performed By: #### 4 [id number] #### [facility] [address] [place] [address] Dr. Jackelyn Celestin CUT-OFFS SEE BELOW Normal [facility] Comment on above: Result Comment: AMP (Amphetamine): 500ng/mL, BAR (Barbituates): 200 ng/mL, BZO (Benzodiazepines): 150 ng/mL, BUP (Buprenorphine): 10 ng/mL, HOMERO (Cocaine): 150 ng/mL, mAMP (Methamphetamine): 500 ng/mL, MTD (Methadone): 200 ng/mL, OPI (Opiates): 100 ng/mL, OXY (Oxycodone): 100 ng/mL, PCP (Phencyclidine): 25 ng/mL, PPX (Propoxyphene): 300 ng/mL, THC (Cannabinoids): 50 ng/mL, TCA (Trycyclic Antidepressants): 300 ng/mL Performed By: #### 4 [id number] #### [facility] [address] [place] [address] Dr. Jackelyn Celestin DRUG CUT HEADER DRUG CLASS TEST SYST EM CUT-OFF CONCENTRATIONS ARE FOLLOWS: Normal [facility] Comment on above: Performed By: #### 4 [id number] #### [facility] [address] [place] [address] Dr. Jackelyn Celestin mAMP Negative Normal NEGATIVE [facility] Comment on above: Performed By: #### 4 [id number] #### [facility] [address] [place] [address] Dr. Jackelyn Celestin MTD Negative Normal NEGATIVE [facility] Comment on above: Performed By: #### 4 [id number] #### [facility] [address] [place] [address] Dr. Jackelyn Celestin OPI Negative Normal NEGATIVE [facility] Comment on above: Performed By: #### 4 [id number] #### [facility] [address] [place] [address] Dr. Jackelyn Celestin OXY Negative Normal NEGATIVE [facility] Comment on above: Performed By: #### 4 [id number] #### [facility] [address] [place] [address] Dr. Jackelyn Celestin PCP Negative Normal NEGATIVE [facility] Comment on above: Performed By: #### 4 [id number] #### [facility] [address] [place] [address] Dr. Jackelyn Celestin PPX Negative Normal NEGATIVE [facility] Comment on above: Performed By: #### 4 [id number] #### [facility] [address] [place] [address] Dr. Jackelyn Celestin TCA Negative Normal NEGATIVE [facility] Comment on above: Performed By: #### 4 [id number] #### [facility] [address] [place] [address] Dr. Jackelyn Celestin THC Negative Normal NEGATIVE [facility] Comment on above: Performed By: #### 4 [id number] #### [facility] [address] [place] [address] Dr. Jackelyn Celestin TYPE AND SCREENon 07-29-2022 TYPE AND SCREEN Negative Normal [facility] Comment on above: Performed By: #### G TT3P #### [facility] [address] [place] [address] Dr. Jackelyn Celestin US PREG GROWTHon 07-25-2022 [...] than 97th percentile. Electronically authenticated by: TRISTAN HATR Date: 2022-07-24 22:37 Normal [facility] GROUP B STREP CULTUREon 06-09 S. agalactiae Ag Ql (Unsp spec) Culture Observations: NEGATIVE FOR GROUP B STREPTOCOCCUS. Normal [facility] Comment on above: Performed By: #### G TT3P #### [facility] [address] [place] [address] [address] Jackelyn Celestin US PREG GROWTHon 06-06-2022 [...] TRISTAN HART Date: 2022-06-06 15:39 Normal [facility] GTT 3 HR PREGon 05-21-2022 Glucose [Mass/Vol] 91 mg/dL Normal 74-106 [facility] Comment on above: Performed By: #### G TT3P #### [facility] [address] [place] [address] [address] Jackelyn Celestin Glucose [Mass/Vol] 168 mg/dL Normal [facility] Comment on above: Performed By: #### G TT3P #### [facility] [address] [place] [address] [address] Jackelyn Celestin Glucose [Mass/Vol] 121 mg/dL Normal [facility] Comment on above: Performed By: #### G TT3P #### [facility] [address] [place] [address] Dr. Jackelyn Celestin Glucose [Mass/Vol] 86 mg/dL [facility] Comment on above: Performed By: #### G TT3P #### [facility] [address] [place] [address] Dr. Jackelyn Celestin PAP ACOG PANEL 2: 21 to 29on 05-17-2022 . . Normal [facility] Comment on above: Performed By: #### 4 [id number] #### [facility] [address] [place] [address] Dr. Jackelyn Celestin DIAGNOSIS: Comment [facility] Comment on above: Result Comment: NEGA TIVE FOR INTRAEPITHELIAL LESION OR MALIGNANCY. Performed By: #### 4 [id number] #### [facility] [address] [place] [address] Dr. Jackelyn Celestin Methodology: Comment [facility] Comment on above: Result Comment: This liquid based ThinPrep(R) pap test was screened with the use of an image guided system. Performed By: #### 4 [id number] #### [facility] [address] [place] [address] Dr. Jackelyn Celestin Note: Comment [facility] Comment on above: Result Comment: The Pap smear is a screening test designed to aid in the detection of premalignant and malignant conditions of the uterine cervix. It is not a diagnostic procedure and should not be used as the sole means of detecting cervical cancer. Both false-positive and false-negative reports do occur. . Performed By: #### 4 [id number] #### [facility] [address] [place] [address] Dr. Jackelyn Celestin Performed by: Comment [facility] Comment on above: Result Comment: Alphonso Walker [employer] Developer (ASCP) Performed By: #### 4 [id number] #### [facility] [address] [place] [address] Dr. Jackelyn Celestin Reflex Criteria: Comment [facility] Comment on above: Result Comment: The HPV DNA reflex criteria were not met with this specimen result therefore, no HPV testing was performed. . Performed By: #### 4 [id number] #### [facility] [address] [place] [address] Dr. Jackelyn Celestin Specimen adequacy: Comment Normal [facility] Comment on above: Result Comment: Sati sfactory for evaluation. No endocervical component is identified. Performed By: #### 4 [id number] #### [facility] [address] [place] [address] Dr. Jackelyn Celestin Age Gdln ACOG Testing 21-29 Normal [facility] Comment on above: Performed By: #### 4 [id number] #### [facility] [address] [place] [address] Dr. Jackelyn Celestin CHLAMYDIA/GONOCOCCUS ALONDRA ( AB/URINE/PAPon 05-14-2022 Chlamydia trachomatis, ALONDRA Negative Normal Negative [facility] Comment on above: Performed By: #### G [id number] #### [facility] [address] [place] [address] Dr. Jackelyn Celestin Neisseria gonorrhoeae, ALONDRA Negative Normal Negative [facility] Comment on above: Performed By: #### G TT3P #### [facility] [address] [place] [address] Dr. Jackelyn Celestin VAGINITIS/VAGINOSIS DNA PROB Dean 05-13-2022 Thao species Negative Normal Negative [facility] Comment on above: Performed By: #### 4 [id number] #### [facility] [address] [place] [address] Dr. Jackelyn Celestin Gardnerella vaginalis Negative Normal Negative [facility] Comment on above: Performed By: #### 4 [id number] #### [facility] [address] [place] [address] Dr. Jackelyn Celestin Trichomonas vaginalis Negative Normal Negative [facility] Comment on above: Performed By: #### 4 [id number] #### [facility] [address] [place] [address] Dr. Jackelyn Celestin CBC AUTO DIFFon 05-09-2022 BASO # 0.0 103/ul Normal 0.0-0.1 [facility] Comment on above: Performed By: #### C BC #### [facility] [address] [place] [address] Dr. Jackelyn Celestin Basophils/100 WBC (Bld) 0.3 % Normal 0.2-2.0 [facility] Comment on above: Performed By: #### C BC #### [facility] [address] [place] [address] Dr. Jackelyn Celestin EO # 0.1 103/ul Normal 0.0-0.7 [facility] Comment on above: Performed By: #### C BC #### [facility] [address] [place] [address] Dr. Jackelyn Celestin Eosinophils/100 WBC (Bld) 1.2 % Normal 0.9-7.0 [facility] Comment on above: Performed By: #### C BC #### [facility] [address] [place] [address] Dr. Jackelyn Celestin Erythrocyte distribution width (RBC) [Ratio] 11.9 % Normal 11.0-15.0 [facility] Comment on above: Performed By: #### C BC #### [facility] [address] [place] [address] Dr. Jackelyn Celestin Hematocrit (Bld) [Volume fraction] 33.7 % Critically low 36.0-48.0 [facility] Comment on above: Performed By: #### C BC #### [facility] [address] [place] [address] Dr. Jackelyn Celestin Hemoglobin (Bld) [Mass/Vol] 12.0 g/dL Normal 12.0-16.0 [facility] Comment on above: Performed By: #### C BC #### [facility] [address] [place] [address] Dr. Jackelyn Celestin IG # 0.07 10e3/ul Critically high 0.00-0.03 [facility] Comment on above: Performed By: #### C BC #### [facility] [address] [place] [address] Dr. Jackelyn Celestin IG % 0.6 % Critically high 0.0-0.5 [facility] Comment on above: Performed By: #### C BC #### [facility] [address] [place] [address] Dr. Jackelyn Celestin LYMPH # 1.3 103/ul Normal 1.2-3.8 [facility] Comment on above: Performed By: #### C BC #### [facility] [address] [place] [address] Dr. Jackelyn Celestin Lymphocytes/100 WBC (Bld) 11.5 % Critically low 20.5-60.0 [facility] Comment on above: Performed By: #### C BC #### [facility] [address] [place] [address] Dr. Jackelyn Celestin MANUAL DIFF REQ NO Normal [facility] Comment on above: Performed By: #### C BC #### [facility] [address] [place] [address] Dr. Jackelyn Celestin MCH (RBC) [Entitic mass] 31.0 pg Normal 26.7-34.0 [facility] Comment on above: Performed By: #### C BC #### [facility] [address] [place] [address] Dr. Jackelyn Celestin MCHC (RBC) [Mass/Vol] 35.6 g/dL Critically high 29.9-35.2 [facility] Comment on above: Performed By: #### C BC #### [facility] [address] [place] [address] Dr. Jackelyn Celestin MCV (RBC) [Entitic vol] 87.1 fL Normal 81.0-99.0 [facility] Comment on above: Performed By: #### C BC #### [facility] [address] [place] [address] Dr. Jackelyn Celestin MONO # 0.5 103/ul Normal 0.3-0.8 [facility] Comment on above: Performed By: #### C BC #### [facility] [address] [place] [address] Dr. Jackelyn Celestin Monocytes/100 WBC (Bld) 4.8 % Normal 1.7-12.0 [facility] Comment on above: Performed By: #### C BC #### [facility] [address] [address] [address] Jackelyn Celestin NEUT # 8.9 103/ul Critically high 1.4-6.5 [facility] Comment on above: Performed By: #### C BC #### [facility] [address] [place] [address] Dr. Jackelyn Celestin Neutrophils/100 WBC (Bld) 81.6 % Critically high 43.0-75.0 [facility] Comment on above: Performed By: #### C BC #### [facility] [address] [place] [address] Dr. Jackelyn Celestin Platelet mean volume (Bld) [Entitic vol] 11.3 fL Normal 9.5-13.5 [facility] Comment on above: Performed By: #### C BC #### [facility] [address] [place] [address] Dr. Jackelyn Celestin PLT 171 103/ul Normal 150-450 [facility] Comment on above: Performed By: #### C BC #### [facility] [address] [place] [address] Dr. Jackelyn Celestin RBC 3.87 106/ul Critically low 4.20-5.40 [facility] Comment on above: Performed By: #### C BC #### [facility] [address] [place] [address] Dr. Jackelyn Celestin WBC 10.9 103/ul Normal 4.0-11.0 [facility] Comment on above: Performed By: #### C BC #### [facility] [address] [place] [address] Dr. Jackelyn Celestin GLUCOSE - 1HRon 05-09-2022 Glucose [Mass/Vol] 142 mg/dL Critically high 74-106 [facility] Comment on above: Performed By: #### 4 [id number] #### [facility] [address] [place] [address] Dr. Jackelyn Celestin US PREG BIOPHY W [...] by: TRISTAN HART Date: 2022-05-09 10:35 Normal [facility] US PREG PLACENTAon 3 US PREG PLACENTA EXAMINATION: US PREG PLACENTA HISTORY: Falls ; mild cramping after falling COMPARISON: Ultrasound anatomy 03/17/2022 FINDINGS: PLACENTA: Posterior without previa, subchorionic hematoma, or abruption. CERVIX LENGTH: Not evaluated. HEART RATE: 158 bpm OTHER: None. IMPRESSION: 1. Unremarkable posterior placenta. No suspicious findings. Electronically authenticated by: TRISTAN HART Date: 2022-05-09 10:29 Normal [facility] US PREG ANATOMY SINGLEon US PREG [...] TRISTAN HART Date: 2022-03-17 16:29 Normal [facility] HEP B SURFACE ANTIGEN SCREEN on 02-15-2022 HBsAg Screen Negative Normal Negative [facility] Comment on above: Performed By: #### 4 [id number] #### [facility] [address] [place] [address] Dr. Jackelyn Celestin HEPATITIS C VIRUS AB W/ REFL EX QUANTon 02-15-2022 HCV AB <0.1 Normal 0.0-0.9 [facility] Comment on above: Performed By: #### H CVPCRR #### [facility] [address] [place] [address] Dr. Jackelyn Celestin Interpretation: Comment Normal [facility] Comment on above: Result Comment: Nega tive Not infected with HCV, unless recent infection is suspected or other evidence exists to indicate HCV infection. Performed By: #### H CVPCRR #### [facility] [address] [place] [address] Dr. Jackelyn Celestin HIV 1 AND 2 WITH REFLEXon HIV Screen 4th Generation wRfx Non-Reactive Normal Non Reactive [facility] Comment on above: Result Comment: HIV Negative HIV-1/HIV-2 antibodies and HIV-1 p24 antigen were NOT detected. There is no laboratory evidence of HIV infection. Performed By: #### H IV12 #### [facility] [address] [place] [address] Dr. Jackelyn Celestin RPR QUANTon 02-15-2022 Rapid Plasma Reagin, Quant Non-Reactive Normal NonRea<1:1 [facility] Comment on above: Result Comment: Plea se Note: This test does not meet current guidelines for screening and diagnosis of syphilis. This test is intended for following treatment response in patients being treated for syphilis infection. To screen for syphilis infection, a reflex cascade that includes both RPR and a treponema-specific assay should be utilized, such as Treponema pallidum (Syphilis) Screening [place] (660331) or Rapid Plasma Reagin (RPR) Test With Reflex to Quantitative RPR and Confirmatory Treponema pallidum Antibodies (832490). Performed By: #### R PRQ #### [facility] [address] [place] [address] Dr. Jackelyn Celestin RUBELLA AB IGGon 02-15-2022 Rubella Antibodies, IgG 1.97 index Normal Immune >0.99 [facility] Comment on above: Result Comment: Non- immune <0.90 Equivocal 0.90 - 0.99 Immune >0.99 Performed By: #### R UBIGG #### [facility] [address] [place] [address] Dr. Jackelyn Celestin CBC AUTO DIFFon 02-12-2022 BASO # 0.0 103/ul Normal 0.0-0.1 [facility] Comment on above: Performed By: #### C BC #### [facility] [address] [place] [address] Dr. Jackelyn Celestin Basophils/100 WBC (Bld) 0.4 % Normal 0.2-2.0 [facility] Comment on above: Performed By: #### C BC #### [facility] [address] [place] [address] Dr. Jackelyn Celestin EO # 0.2 103/ul Normal 0.0-0.7 [facility] Comment on above: Performed By: #### C BC #### [facility] [address] [place] [address] Dr. Jackelyn Celestin Eosinophils/100 WBC (Bld) 2.0 % Normal 0.9-7.0 [facility] Comment on above: Performed By: #### C BC #### [facility] [address] [place] [address] Dr. Jackelyn Celestin Erythrocyte distribution width (RBC) [Ratio] 12.8 % Normal 11.0-15.0 [facility] Comment on above: Performed By: #### C BC #### [facility] [address] [place] [address] Dr. Jackelyn Celestin Hematocrit (Bld) [Volume fraction] 40.7 % Normal 36.0-48.0 [facility] Comment on above: Performed By: #### C BC #### [facility] [address] [place] [address] Dr. Jackelyn Celestin Hemoglobin (Bld) [Mass/Vol] 14.4 g/dL Normal 12.0-16.0 [facility] Comment on above: Performed By: #### C BC #### [facility] [address] [place] [address] Dr. Jackelyn Celestin IG # 0.05 10e3/ul Critically high 0.00-0.03 [facility] Comment on above: Performed By: #### C BC #### [facility] [address] [place] [address] Dr. Jackelyn Celestin IG % 0.4 % Normal 0.0-0.5 [facility] Comment on above: Performed By: #### C BC #### [facility] [address] [place] [address] Dr. Jackelyn Celestin LYMPH # 1.7 103/ul Normal 1.2-3.8 [facility] Comment on above: Performed By: #### C BC #### [facility] [address] [place] [address] Dr. Jackelyn Celestin Lymphocytes/100 WBC (Bld) 15.1 % Critically low 20.5-60.0 [facility] Comment on above: Performed By: #### C BC #### [facility] [address] [place] [address] Dr. Jackelyn Celestin MANUAL DIFF REQ NO Normal [facility] Comment on above: Performed By: #### C BC #### [facility] [address] [place] [address] Dr. Jackelyn Celestin MCH (RBC) [Entitic mass] 31.2 pg Normal 26.7-34.0 [facility] Comment on above: Performed By: #### C BC #### [facility] [address] [place] [address] Dr. Jackelyn Celestin MCHC (RBC) [Mass/Vol] 35.4 g/dL Critically high 29.9-35.2 [facility] Comment on above: Performed By: #### C BC #### [facility] [address] [address] [address] Jackelyn Celestin MCV (RBC) [Entitic vol] 88.1 fL Normal 81.0-99.0 [facility] Comment on above: Performed By: #### C BC #### [facility] [address] [address] [address] Jackelyn Celestin MONO # 0.4 103/ul Normal 0.3-0.8 [facility] Comment on above: Performed By: #### C BC #### [facility] [address] [address] [address] Jackelyn Celestin Monocytes/100 WBC (Bld) 3.3 % Normal 1.7-12.0 [facility] Comment on above: Performed By: #### C BC #### [facility] [address] [place] [address] Dr. Jackelyn Celestin NEUT # 8.8 103/ul Critically high 1.4-6.5 [facility] Comment on above: Performed By: #### C BC #### [facility] [address] [place] [address] Dr. Jackelyn Celestin Neutrophils/100 WBC (Bld) 78.8 % Critically high 43.0-75.0 [facility] Comment on above: Performed By: #### C BC #### [facility] [address] [place] [address] Dr. Jackelyn Celestin Platelet mean volume (Bld) [Entitic vol] 11.6 fL Normal 9.5-13.5 [facility] Comment on above: Performed By: #### C BC #### [facility] [address] [place] [address] Dr. Jackelyn Celestin PLT 203 103/ul Normal 150-450 [facility] Comment on above: Performed By: #### C BC #### [facility] [address] [place] [address] Dr. Jackelyn Celestin RBC 4.62 106/ul Normal 4.20-5.40 [facility] Comment on above: Performed By: #### C BC #### [facility] [address] [place] [address] Dr. Jackelyn Celestin WBC 11.2 103/ul Critically high 4.0-11.0 [facility] Comment on above: Performed By: #### C BC #### [facility] [address] [address] [address] Jackelyn Celestin CULTURE URINEon 02-12-2022 CULTURE URINE Culture Observations : NO GROWTH. Normal [facility] Comment on above: Performed By: #### U RCX #### [facility] [address] [address] [address] Jackelyn Celestin GLYCOHEMOGLOBIN A1Con 2021 ADA RECOMMENDATION SEE BELOW Normal [facility] Comment on above: Result Comment: ADA RECOMMENDED LIMIT 4.0 - 6.0 ADA THERAPEUTIC TARGET < 7.0 ACTION SUGGESTED > 7.0 Performed By: #### 4 [id number] #### [facility] [address] [place] [address] Dr. Jackelyn Celestin Glucose [Mass/Vol] 94 mg/dL Normal [facility] Comment on above: Performed By: #### 4 [id number] #### [facility] [address] [address] [address] Jackelyn Celestin HbA1c (Bld) [Mass fraction] 4.9 % Normal 4.5-6.2 [facility] Comment on above: Performed By: #### 4 [id number] #### [facility] [address] [place] [address] Dr. Jackelyn Celestin TYPE AND SCREENon 02-12-2022 TYPE AND SCREEN Negative Normal [facility] Comment on above: Performed By: #### T NS #### [facility] [address] [place] [address] Dr. Jackelyn Celestin US PREG TVon 01-21-2022 [...] by: DONALD AGUILAR Date: 2022-01-21 16:41 Normal [facility] Coding Summary.on 12-12-2019 Coding Summary. CODING DATE: 020 FINAL [facility] STATUS: Home (Routine DC) PAYOR: Self Pay [...] CphT Date Saved: 12/12/2019 10:59 am Normal [facility] Family Medicine Office/Clini c Noteon 11-21-2019 Family [...] day(s), # 20 tab(s), Refills(s) 0, Pharmacy: [facility], 159, cm, 11/21/19 19:13:00 EDT, Height/Length Dosing, 96, kg, 11/21/19 19:13:00 EDT, Weight Dosing Follow-up No qualifying data available Patient Education Body Mass Index, BMI DASH Diet MyPlate from [employer] Obesity Otitis Media, Adult Problem List/Past Medical [...] cancer: Grandparent. Hypertension: Grandparent. Stroke: Grandparent. Normal [facility] Comment on above: Result Comment: Elec tronically [...] Document Reviewed: 01/04/2006 ExitCare? Patient Information ?2013 [facility]. DASH Diet The DASH diet stands for [...] beef, chicken breast, turkey breast. All fish. Mangum, bake, or broil your meat. Nothing should [...] Document Reviewed: 03/15/2012 ExitCare? Patient Information ?2013 [employer]. [employer] The amount you need to eat from each food group depends on your age, sex, and level of physical activity. To find the amounts that are right for you, go to [employer]gov. Tips: ? Enjoy your food, but eat [...] Document Reviewed: 06/16/2008 ExitCare? Patient Information ?2013 [employer]. [facility] Obesity Obesity is defined as having too [...] such as an underactive thyroid (hypothyroidism ), Prue's syndrome, and polycystic ovarian syndrome. ? Certain [...] 05/04/2005 Document Revised: 09/25/2012 Document Reviewed: 05/02/2012 [facility] Patient Information ?2013 [employer]. Otitis Media, Adult A middle ear infection [...] the first few days. ? Only take [id number] or prescription medicines for pain, discomfort, or [...] Document Reviewed: 10/31/2008 ExitCare? Patient Information ?2013 [employer]. Normal [facility] SARS-CoV-2, NAAon 11-20-2019 SARS CORONAVIRUS 2 RNA:PRTHR:PT:RESPIRATO RY:ORD:PROBE.AMP.TAR Not Detected Not Detected [facility] Comment on above: Result Comment: This test was developed and its performance characteristics determined by [facility]. This test has not been FDA cleared [...] detected) result in this assay. Performed at: [facility] [address] [facility], [place] [id number] MD Malaika Anagh Performed By: #### S ARS-CoV-2, ALONDRA #### [facility] [address] [place] [id number] Family Medicine Video Visit - Telehealthon 11-16-2019 [...] interactive video communications from my office using [employer] due to the restrictions of the COVID-19 pandemic. No physical exam was conducted other than those areas of the body visible to telecommunications with the patient located at [address] [phone], with no one else in attendance. If [...] cancer: Grandparent. Hypertension: Grandparent. Stroke: Grandparent. Normal [facility] Comment on above: Result Comment: Elec tronically Signed By: SEAN KIM, Abbey Hodges\.ynes\Date and Time Signed: 11/16/19 14:27 EDT URINE CULTUREon 07-10-2017 Urine culture, bacteria SPECIMEN DESCRIPTION URINE CLEAN CATCHUA DIPSTICK NITRITE NEGATIVE * Result Note: LEUKOCYTE NEGATIVE *CULTURE ESCHERICHIA COLI * Result Note: 50,000 C/C/ML * * Result Note: Testing performed at [place], [place] [address] *REPORT STATUS 07/10/2017 * Result Note: FINAL * O RGANISM ESCHERICHIA COLI * Result Note: ESCHERICHIA COLI *METHOD MICAMPICILLIN <=2 SUSCEPTIBLEAMPICILLIN/SULBA CTAM <=2 SUSCEPTIBLECEFTRIAXONE <=1 SUSCEPTIBLECEFAZOLIN <=4 SUSCEPTIBLEIMIPENEM <=0.25 SUSCEPTIBLEGENTAMICIN <=1 SUSCEPTIBLETRIMETH-SULFA <=20 SUSCEPTIBLEAMOXICILLIN/CLAV ULANIC A <=2 SUSCEPTIBLENITROFURANTOIN 32 SUSCEPTIBLEPIPERACILLIN/SADA OBACTAM <=4 SUSCEPTIBLELEVOFLOXACIN <=0.12 SUSCEPTIBLEESBL NEGATIVECEFTAZIDIME <=1 SUSCEPTIBLE Normal [facility] Comment on above: Performed By: #### A URNC ####Testing performed at [address] [id number] performed at [address] [address] BHCG,QUANTITATIVEon 07-08-19 18 CG,QUANTITATIVE 133.56 MIU/ML Normal [facility] Comment on above: Result Comment: [facility]PRETIVE [facility]ES: NON FEMALE 0-6 MIU/MLMALE ADULT [...] #### A CBC, CG2 ####Testing performed at [address] [address] CBCon 07-07-2017 ABSOLUTE BAS 0.1 X10 Normal [facility] Comment on above: Performed By: #### A CBC, BHCG2 ####Testing performed at [place] [id number] ABSOLUTE EOS 0.20 X10 Normal [facility] Comment on above: Performed By: #### A CBC, BHCG2 ####Testing performed at [address] [address] Basophils/100 WBC Auto (Bld) 0.6 % Normal 0.0-2.0 [facility] Comment on above: Performed By: #### A CBC, BHCG2 ####Testing performed at [address] [place] [address] DTYPE AUTO DIFF Normal [facility] Comment on above: Performed By: #### A CBC, BHCG2 ####Testing performed at [address] [address] Eosinophils/100 leukocytes 2.0 % Normal 0.0-11.0 [facility] Comment on above: Performed By: #### A CBC, BHCG2 ####Testing performed at [address] [address] Lymphocytes 2.00 X10 Normal [facility] Comment on above: Performed By: #### A CBC, BHCG2 ####Testing performed at [address] [place] [address] Lymphocytes/100 leukocytes 23.0 % Normal 20.0-55.0 [facility] Comment on above: Performed By: #### A CBC, BHCG2 ####Testing performed at [address] [place] [address] Monocytes 0.6 X10 Normal [facility] Comment on above: Performed By: #### A CBC, BHCG2 ####Testing performed at [address] [address] Monocytes/100 leukocytes 7.1 % Normal 0.0-10.0 [facility] Comment on above: Performed By: #### A CBC, BHCG2 ####Testing performed at [address] [place] [address] Neutrophils 5.9 x10 Normal 1.0-7.0 [facility] [facility] Comment on above: Performed By: #### A CBC, BHCG2 ####Testing performed at [address] [address] Neutrophils/100 leukocytes 67.3 % Normal 37.0-75.0 [facility] Comment on above: Performed By: #### A CBC, BHCG2 ####Testing performed at [address] [address] Erythrocyte distribution width Auto Ratio (RBC) 12.1 % Normal 11.5-14.5 [facility] Comment on above: Performed By: #### A CBC, BHCG2 ####Testing [place] [address] Erythrocytes (RBC) 4.72 /cmm Normal 4.0-5.4 [facility] Comment on above: Performed By: #### A CBC, BHCG2 ####Testing performed at [place] [id number] Hematocrit (HCT) 43.2 % Normal 36.0-48.0 [facility] Comment on above: Performed By: #### A CBC, BHCG2 ####Testing performed at [place] 8756506 Hemoglobin mass conc (Bld) 15.1 g/dL Normal 12.0-16.0 [facility] Comment on above: Performed By: #### A CBC, BHCG2 ####Testing performed at [address] [address] MCH 32.0 pg Normal 26.0-35.0 [facility] Comment on above: Performed By: #### A CBC, BHCG2 ####Testing performed at [address] [address] MCHC mass conc (RBC) 35.0 g/dL Normal 27.0-37.0 [facility] Comment on above: Performed By: #### A CBC, BHCG2 ####Testing performed at [place] 8756506 MCV 91.5 fL Normal 80.0-100.0 [facility] Comment on above: Performed By: #### A CBC, BHCG2 ####Testing performed at [address] [address] Platelet mean volume (PMV) 9.2 fL Normal 7.4-11.0 [facility] Comment on above: Performed By: #### A CBC, BHCG2 ####Testing performed at [address] [address] Platelets 235 /cmm Normal 130.0-400. 0 [facility] Comment on above: Performed By: #### A CBC, BHCG2 ####Testing performed at [address] [address] WBC (Leukocytes) 8.8 /cmm Normal 3.6-11.0 [facility] Comment on above: Performed By: #### A CBC, BHCG2 ####Testing performed at [address] [address] ED NOTEon 07-07-2017 [facility] NOTES Normal [facility] ED PROVIDERon 07-07-2017 [facility] NOTES Normal [facility] URINE MACROSCOPICon 07-08-19 18 Bilirubin Ql (U) Negative Normal NEGATIVE [facility] Comment on above: Performed By: #### U MAC, UMIC ####Testing performed at [address] [address] URINE HEMOGLOBIN LARGE Abnormal NEGATIVE [facility] Comment on above: Performed By: #### U MAC, UMIC ####Testing performed at [address] [address] URINE KETONE Negative Normal NEGATIVE [facility] Comment on above: Performed By: #### U MAC, UMIC ####Testing performed at [address] [address] URINE LEUKOTEST Negative Normal NEGATIVE [facility] Comment on above: Performed By: #### U MAC, UMIC ####Testing performed at [address] [address] URINE NITRATES Negative Normal NEGATIVE [facility] Comment on above: Performed By: #### U MAC, UMIC ####Testing performed at [address] [address] URINE SPEC GRAVITY 1.025 Normal 1.010-1.0 2 5 [facility] Comment on above: Performed By: #### U MAC, UMIC ####Testing performed at [address] [address] URINE TOTAL PROTEIN Negative Normal NEGATIVE [facility] Comment on above: Performed By: #### U MAC, UMIC ####Testing performed at [address] [place] [address] Urine, clarity CLEAR Normal CLEAR [facility] Comment on above: Performed By: #### U MAC, UMIC ####Testing performed at [address] [place] [address] Urine, color YELLOW Normal YELLOW [facility] Comment on above: Performed By: #### U MAC, UMIC ####Testing performed at [address] [place] [address] Urine, glucose presence Negative Normal NEGATIVE [facility] Comment on above: Performed By: #### U MAC, UMIC ####Testing performed at [address] [address] Urine, pH 7.0 [pH] Normal 5.0-7.0 [facility] Comment on above: Performed By: #### U MAC, UMIC ####Testing performed at [address] [address] Urine, urobilinogen 1.0 mg/dl Normal 0.2-1.0 [facility] Comment on above: Performed By: #### U MAC, UMIC ####Testing performed at [address] [address] URINE MICROSCOPICon 07-07-20 18 CRYSTAL OCCASIONAL Abnormal NONE [facility] Comment on above: Result Comment: CHRIS PHOUS PHOSPHATES Performed By: #### U MAC, UMIC ####Testing performed at [address] [address] URINE COMMENT REFLEX CULTURE PER ESTABLISHED CRITERIA. Normal [facility] Comment on above: Performed By: #### U MAC, UMIC ####Testing performed at [address] [address] URINE WBC'S 1 TO 5 Normal NEGATIVE [facility] Comment on above: Performed By: #### U MAC, UMIC ####Testing performed at [address] [address] Urine, bacteria in sediment 1+ Abnormal NEGATIVE [facility] Comment on above: Performed By: #### U MAC, UMIC ####Testing performed at [address] [place] [address] Urine, casts in sediment NONE Normal NONE [facility] Comment on above: Performed By: #### U MAC, UMIC ####Testing performed at [address] [place] [address] Urine, epithelial cells in sediment 1 TO 5 Normal [facility] Comment on above: Performed By: #### U MAC, UMIC ####Testing performed at [address] [place] [address] Urine, erythrocytes 1 TO 5 Normal NEGATIVE [facility] Comment on above: Performed By: #### U MAC, UMIC ####Testing performed at [address] [place] [address] Urine, mucus presence in sediment Negative Normal NEGATIVE [facility] Comment on above: Performed By: #### U MAC, UMIC ####Testing performed at [address] [address] BhCG Quanton 07-05-2017 HCG.beta subunit Qn 238.0 mIU/m Normal [facility] Comment on above: Result Comment: FEMA LE (NON-) & MALE <3 BORDERLINE 3 - 5 SUGGEST REPEAT TESTING FEMALE () 1 D - 1 WK 5 - 50 1 - 2 WK 50 - 500 2 - 3 WK 100 - 5000 3 - 4 WK 500 - 79305 4 - 5 WK 1000 - 55359 5 - 6 WK [address] - 876674 6 - 8 WK [address] - 265953 2 - 3 [place] [address] - [address] Performed By: #### 2 253811 ####JIMMIE IlkUsrv5890 [place] [address] Auto Diffon 07-04-2017 Basophils Auto #/vol (Bld) 0.1 E3/mcL Normal 0.0-0.2 [facility] Comment on above: Order Comment: Order Added by Discern Expert. Performed By: #### 2 855241 ####JIMMIE EveInnj7434 [place] [address] Basophils/100 WBC Auto (Bld) 0.6 % Normal 0.0-2.0 [facility] Comment on above: Order Comment: Order Added by Discern Expert. Performed By: #### 2 862177 ####JIMMIE QvlWwkn8231 [place] [address] Eos Absolute 0.3 E3/mcL Normal 0.0-0.7 [facility] Comment on above: Order Comment: Order Added by Discern Expert. Performed By: #### 2 443769 ####JIMMIE DanIcvBase6480 [place] [address] Eosinophils/100 leukocytes 2.5 % Normal 0.0-11.0 [facility] Comment on above: Order Comment: Order Added by Discern Expert. Performed By: #### 2 807713 ####JIMMIE RcnHpuq6723 [place] [address] Lymphocytes 2.3 E3/mcL Normal 1.2-3.4 [facility] Comment on above: Order Comment: Order Added by Discern Expert. Performed By: #### 2 013525 ####JIMMIE DanLxeXbfy7077 [place] [address] Lymphocytes/100 leukocytes 22.2 % Normal 20.0-55.0 [facility] Comment on above: Order Comment: Order Added by Discern Expert. Performed By: #### 2 541621 ####JIMMIE UxzCqav4078 [place] [address] [place] Absolute 0.8 E3/mcL High 0.0-0.7 [facility] Comment on above: Order Comment: Order Added by Discern Expert. Performed By: #### 2 501613 ####JIMMIE DanZtvHvhe2680 [place] [address] Monocytes/100 leukocytes 7.6 % Normal 0.0-10.0 [facility] Comment on above: Order Comment: Order Added by Discern Expert. Performed By: #### 2 838616 ####JIMMIE KwlTjnw9066 [place] [address] Neutro Absolute 6.9 E3/mcL High 1.4-6.5 [facility] Comment on above: Order Comment: Order Added by Discern Expert. Performed By: #### 2 262448 ####JIMMIE DanJpdOksu9512 [place] [address] Neutro Auto 67.1 % Normal 37.0-75.0 [facility] Comment on above: Order Comment: Order Added by Discern Expert. Performed By: #### 2 675087 ####JIMMIE GsmQqou8476 [place] [address] BMPon 07-04-2017 BUN/Creatinine Ratio 21.7 ratio Normal 5.4-30.0 [facility] Comment on above: Performed By: #### 2 320082 ####JIMMIE OqtBblp0541 [place] [address] Creatinine 0.6 mg/dL Normal 0.6-1.3 [facility] Comment on above: Performed By: #### 2 203309 ####JIMMIE JjsMwgd2685 [place] [address] Urea nitrogen 13 mg/dL Normal 7-18 [facility] Comment on above: Performed By: #### 2 190112 ####JIMMIE GjlCxqq4941 [place] [address] Calcium 8.4 mg/dL Normal 8.4-10.2 [facility] Comment on above: Performed By: #### 2 601327 ####JIMMIE YotLkni3518 [place] [address] Chloride 100 mmol/L Normal 98-107 [facility] Comment on above: Performed By: #### 2 157499 ####JIMMIE CpeZemo7612 [place] [address] CO2 27.7 mmol/L Normal 24.0-30.0 [facility] Comment on above: Performed By: #### 2 320484 ####JIMMIE DhrZenz8626 [place] [address] Glucose mass conc 98 mg/dL Normal 70-99 [facility] Comment on above: Performed By: #### 2 918018 ####JIMMIE XxmOjrj7329 [place] [address] Potassium molar conc 3.4 mmol/L Low 3.5-5.1 [facility] Comment on above: Performed By: #### 2 517587 ####JIMMIE YplEgod2544 [place] [address] Sodium 133 mmol/L Low 136-145 [facility] Comment on above: Performed By: #### 2 580433 ####JIMMIE DanWkiTbcm8323 [place] [address] BhCG Quanton 07-04-2017 HCG.beta subunit Qn 190.8 mIU/m Normal [facility] Comment on above: Result Comment: FEMA LE (NON-) & MALE <3 BORDERLINE 3 - 5 SUGGEST REPEAT TESTING FEMALE () 1 D - 1 WK 5 - 50 1 - 2 WK 50 - 500 2 - 3 WK 100 - 5000 3 - 4 WK 500 - [address] 4 - 5 WK 1000 - [address] 5 - 6 WK [address] - 869222 6 - 8 W[place] [address] - 046722 2 - 3 [place] [address] - 528715 Performed By: #### 2 264143 ####JIMMIE KueOyft8162 [place] [address] CBC w/ Auto Diffon 8 Erythrocyte distribution width Auto Ratio (RBC) 11.6 % Normal 11.5-14.5 [facility] Comment on above: Performed By: #### 2 163524 ####JIMMIEJalil DanKysZfnl8214 [place] [address] Erythrocytes (RBC) 4.43 E6/mcL Normal 3.90-5.40 [facility] Comment on above: Performed By: #### 2 387361 ####JIMMIE RllScsl0873 [place] [address] Hematocrit (HCT) 40.1 % Normal 36.0-48.0 [facility] Comment on above: Performed By: #### 2 592806 ####JIMMIEJalil OzunaLorZoyj2599 [place] [address] Hemoglobin mass conc (Bld) 14.1 g/dL Normal 12.0-16.0 [facility] Comment on above: Performed By: #### 2 434297 ####JIMMIEJalil DanTgdXzev9505 [place] [address] MCH 31.7 pg High 27.0-31.0 [facility] Comment on above: Performed By: #### 2 441840 ####JIMMIEJalil DanKctDvpj7736 [place] [address] MCHC mass conc (RBC) 35.1 g/dL Normal 33.0-37.0 [facility] Comment on above: Performed By: #### 2 508020 ####JIMMIE Ozunao1025 [place] [address] MCV 90.4 fL Normal 78.0-100.0 [facility] Comment on above: Performed By: #### 2 869586 ####JIMMIE Ozunao1025 [place] [address] Platelet mean volume (PMV) 8.4 fL Normal 7.4-11.0 [facility] Comment on above: Performed By: #### 2 540056 ####JIMMIE Ozunao1025 [place] [address] Platelets 232 E3/mcL Normal 130-400 [facility] Comment on above: Performed By: #### 2 477645 ####JIMMIE Ozunao1025 [place] [address] WBC (Leukocytes) 10.3 E3/mcL Normal 3.6-11.0 [facility] Comment on above: Performed By: #### 2 514565 ####JIMMIE Ozunao1025 [place] [address] Hep Func Panelon 07-04-2017 Alanine aminotransferase (ALT) 15 Int._Unit/L Normal 10-40 [facility] Comment on above: Performed By: #### 2 722195 ####JIMMIE DanWscMivp0592 [place] [address] Albumin 3.8 g/dL Normal 3.2-5.0 [facility] Comment on above: Performed By: #### 2 872211 ####JIMMIE DanCtqJuql8837 [place] [address] Albumin/Globulin Ratio 1.4 {ratio} Normal 1.1-1.9 [facility] Comment on above: Performed By: #### 2 330095 ####JIMMIE XhsVpfk0797 [place] [address] Alk Phos 36 Int._Unit/L Low 42-121 [facility] Comment on above: Performed By: #### 2 231606 ####JIMMIE HcjKuwn9009 [place] [address] Aspartate aminotransferase (AST) 18 Int._Unit/L Normal 10-42 [facility] Comment on above: Performed By: #### 2 283574 ####JIMMIEJalil GreshamZhbVjwr0141 [place] [address] Bili Direct <.10 Normal .00-.20 [facility] Comment on above: Performed By: #### 2 027761 ####JIMMIEJalil DanUyrYrhk7391 [place] [address] Bili Indirect >0.7 Normal [facility] Comment on above: Result Comment: No e stablished ranges available for the Indirect Biliruben. Performed By: #### 2 555932 ####JIMMIEJalil DanNgmSrzt3844 [place] [address] Bili Total 0.8 mg/dL Normal 0.2-1.0 [facility] Comment on above: Performed By: #### 2 544081 ####JIMMIEJlail DanOaxVibj6557 [place] [address] Globulin 2.8 g/dL Normal 2.0-4.0 [facility] Comment on above: Performed By: #### 2 156074 ####JIMMIEJalil DanAekZsdo5905 [place] [address] Protein 6.6 g/dL Normal 6.4-8.3 [facility] Comment on above: Performed By: #### 2 225726 ####JIMMIEJalil DanZufVtji3824 [place] [address] Lipase Levelon 07-04-2017 Lipase Lvl 19 U/L Normal 8-57 [facility] Comment on above: Performed By: #### 2 204729 ####JIMMIE FosMdaf1890 [place] [address] U BhCG Qlton 07-04-2017 HCG.beta subunit Qn Positive Normal Neg [facility] Comment on above: Performed By: #### 2 668598 ####JIMMIE Urinalysis Manual Poyntpmaxg0846 [place] [address] UA Completeon 07-04-2017 UA Blood 3+ Normal Negative [facility] Comment on above: Performed By: #### 8 [id number] ####JIMMIE Urinalysis Automated Pvfjijqjcr2915 [place] [address] UA Bacteria Trace Abnormal None [facility] Comment on above: Performed By: #### 8 [id number] ####JIMMIE Urinalysis Automated Xgvdefgufl6880 [place] [address] UA Clarity SltCloudy Abnormal Clear [facility] Comment on above: Performed By: #### 8 [id number] ####JIMMIE Urinalysis Automated Vwcgrzqshk6516 [place] [address] UA Leuk Est Trace Normal Negative [facility] Comment on above: Performed By: #### 8 3812745 ####JIMMIE Urinalysis Automated Qnmdaisuge5362 [place] [address] UA Mucous Occasional Abnormal Trace [facility] Comment on above: Performed By: #### 8 9180545 ####JIMMIE Urinalysis Automated [address] [place] [address] UA Nitrite Negative Normal Negative [facility] Comment on above: Performed By: #### 8 9176625 ####JIMMIE Urinalysis Automated [address] [place] [address] UA pH 5.0 Normal 4.6-8.0 [facility] Comment on above: Performed By: #### 8 [id number] ####JIMMIE Urinalysis Automated N[address]cmv[address] [place] [address] UA Protein Negative Normal Negative [facility] Comment on above: Performed By: #### 8 [id number] ####JIMMIE Urinalysis Automated [address] [place] [address] UA Spec Grav 1.027 Normal 1.003-1.03 0 [facility] Comment on above: Performed By: #### 8 1641802 ####JIMMIE Urinalysis Automated Arfjmgypzq4622 [place] 7277105 UA Squam Epithelial 0-5 Normal 0-5 [facility] Comment on above: Performed By: #### 8 6173535 ####JIMMIE Urinalysis Automated [address]tvq[address] [place], [place] [address] UA Urobilinogen Negative Normal [facility] Comment on above: Performed By: #### 8 7937449 ####JIMMIE Urinalysis Automated Xqewtkkiqv4733 [place] [address] UA WBC 10-20 Abnormal 0-5 [facility] Comment on above: Performed By: #### 8 5729136 ####JIMMIE Urinalysis Automated Puafkuniap2080 [place] [address] Urine, color Yellow Normal Yellow [facility] Comment on above: Performed By: #### 8 7160317 ####JIMMIE Urinalysis Automated Yrwhmbpenf2407 [place] [address] Urine, erythrocytes 5-10 Abnormal 0-3 [facility] Comment on above: Performed By: #### 8 [id number] ####JIMMIE Urinalysis Automated Prfdesqxez3639 [place] [address] Urine, glucose Negative Normal Negative [facility] Comment on above: Performed By: #### 8 4190102 ####JIMMIE Urinalysis Automated Xdbrfohbxz7406 [place] [address] Urine, ketones presence Negative Normal Negative [facility] Comment on above: Performed By: #### 8 [id number] ####JIMMIE Urinalysis Automated Zdfctmfswi9655 [place] [address] Urine, urobilinogen Negative Normal Negative [facility] Comment on above: Performed By: #### 8 [id number] ####JIMMIE Urinalysis Automated Xsnelrewek7562 [place] 7277105 eGFRon 07-04-2017 eGFR (non-black) mL/min/{1.73_m2} Normal [facility] Comment on above: Order Comment: Order added by Discern Expert. Performed By: #### 1 [id number] ####JIMMIE VgdPflm8685 [place] 7277105 Vital Signs Date Time Vital Sign Value Performing Clinician Brendai lity 04-20-2023 14:07-0500 Diastolic blood pressure 75 mm[Hg] [facility] 04-20-2023 14:07-0500 Heart rate 93 /min [facility] 04-20-2023 14:07-0500 Respiratory rate 18 /min [facility] 04-20-2023 14:07-0500 SaO2% (BldA) [Mass fraction] 99 % [facility] 04-20-2023 14:07-0500 Systolic blood pressure 127 mm[Hg] [facility] [address] [place] [address] 04-20-2023 14:06-0500 Body height 160 cm [facility] 04-20-2023 14:06-0500 Body mass index (BMI) [Ratio] 37.22 kg/m2 [facility] [address] [place] [address] 04-20-2023 14:06-0500 Body temperature 97.7 [degF] [facility] [address] [place] [address] 04-20-2023 14:06-0500 Body weight 95.3 kg [facility] [address] [place] [address] 03-10-2023 23:05-0500 Diastolic blood pressure 80 mm[Hg] Supriya Aichholz Work Phone: [facility] 03-10-2023 23:05-0500 Heart rate 100 /min Supriya Aichholz Work Phone: [facility] 03-10-2023 23:05-0500 Respiratory rate 20 /min Supriya Aichholz Work Phone: [facility] 03-10-2023 23:05-0500 SaO2% (BldA) [Mass fraction] 98 % Supriya Aichholz Work Phone: [facility] 03-10-2023 23:05-0500 Systolic blood pressure 137 mm[Hg] Supriya Aichholz Work Phone: [facility] 03-10-2023 17:38-0500 Body temperature 97.9 [degF] Supriya Aichholz Work Phone: [facility] 03-10-2023 17:32-0500 Body height 160.02 cm Supriya Aichholz Work Phone: [facility] 03-10-2023 17:32-0500 Body weight 95 kg Supriya Aichholz Work Phone: [facility] Encounters Encounter Date Encounter Type Care Provider Facility Start: 05-22-2023 End: 05-22-2023 [facility] Start: 05-22-2023 End: 05-22-2023 Postop follow up [...] Evaluation and management of inpatient SUKI [facility] Start: 05-04-2023 End: 05-04-2023 Evaluation and management of inpatient [facility] Start: 04-20-2023 End: 04-20-2023 [facility] Start: 04-20-2023 End: 04-20-2023 Patient encounter procedure [facility] Start: 03-31-2023 End: 03-31-2023 ambulatory XIN MORTEZA Not Available Start: 03-30-2023 End: 03-30-2023 [facility] Start: 03-14-2023 End: 03-14-2023 ambulatory XIN MORTEZA Not Available Start: 03-10-2023 End: 03-11-2023 Emergency department patient visit Jacky Alarcon Facility:[facility] Start: 03-10-2023 End: 03-10-2023 Emergency department patient visit Supriya Cerrato Work Phone: [facility] Work Phone: Start: 03-07-2023 End: [...] 07-07-2017 End: 07-07-2017 Emergency department patient visit [facility] Start: 07-05-2017 End: 07-06-2017 Ambulatory Dickson Ahmadi Facility:[facility] Start: 07-04-2017 End: 07-04-2017 Emergency department patient visit Dickson Ahmadi Facility:[facility] Procedures Date Procedure Procedure Detail Performing Clinician [...] Td Vaccines (5 - Td or Tdap) [facility] Start: 05-04-2024 Adult BMI Screening Adult BMI Screen ing [facility] Start: 05-04-2024 Tobacco Screening Tobacco Screening [facility] Start: 04-20-2024 Adult BMI Screening Adult BMI Screen ing [facility] Start: 04-20-2024 Tobacco Screening Tobacco Screening [facility] Start: 06-05-2023 End: 06-05-2023 Patient encounter procedure 06/05/2023 9:50 AM EST Routine [facility] [address] [place] [address] Xin Pro, DO [address] [place] [address] [facility] Start: 05-04-2023 End: 05-04-2023 Admission to same day surgery center 05/04/2023 7:30 AM EST - 05/04/2023 9:30 AM EST Surgery [facility] Surgery [address] [place] [phone] Gerson Avalos MD [address] [place] [address] DAVINCI CHOLECYSTECTOMY [facility] Comment on above: DAVINCI CHOLECYSTECT ANDREA Start: 05-04-2023 End: 05-04-2023 DAVINCI CHOLECYSTECTOMY DAVINCI CHOLECYSTECTOMY CHOLELITHIASIS 05/04/2023 7:30 AM EST [facility] Start: 05-04-2023 End: 05-04-2023 DAVINCI CHOLECYSTECTOMY CHOLANGIOGRAM DAVINCI CHOLECYSTECTOMY CHOLANGIOGRAM CHOLELITHIASIS 05/04/2023 7:30 AM EST [facility] Start: 05-04-2023 Subsequent hospital visit by physician 05/04/2023 7:30 AM EST Hospital Encounter [facility] Surgery [address] [facility] [place] [id number] Gerson Avalos MD [address] [place] [address] [facility] Start: 03-10-2023 US Gallbladder [facility] Start: 03-10-2023 US scan of gallbladder US gall bladd er [facility] Start: 03-10-2023 Bacteria identified in Urine by Culture [facility] Start: 12-09-2022 Influenza vaccination Influenza Vacc ine [facility] Start: 2019 Screening for malign ant neoplasm of cervix Pap Smear [facility] Start: 2016 Adult BMI Follow Up Plan Adult BMI F ollow Up Plan [facility] Start: 2010 [facility] - e Second Month Nausea and Vomiting, Adult ED Gallstones ED [facility] Work Phone: Patient referral [facility] Work Phone: Payers Date Payer Category Payer Unknown [id number] 2022 Private Health Insurance [id number] 2022 Unknown [id number] 2017 Unknown 1998 Unknown [id number] 2.16.84 [id number] 1998 Unknown [id number] 2.16.84 [id number] 1998 Unknown [id number] 2.16.84 0.1.867591.3.579.2.593 1998 Unknown [id number] 2.16.84 0.1.333331.3.579.2.593 1998 Unknown [id number] 2.16.84 0.1.505848.3.579.2.593 1998 Unknown [id number] 2.16.84 0.1.381782.3.579.2.593 1998 Unknown [id number] 2.16.84 0.1.213783.3.579.2.593 1998 Unknown [id number] 2.16.84 0.1.196690.3.579.2.593 1998 Unknown [id number] 2.16.84 0.1.806031.3.579.2.593 1998 Unknown [id number] 2.16.84 0.1.715750.3.579.2.593 1998 Unknown [id number] 2.16.84 0.1.874289.3.579.2.593 1998 Unknown [id number] 2.16.84 0.1.444607.3.579.2.593 2000 Unknown [id number] 2.16.84 0.1.166765.3.579.2.593 1998 Unknown [id number] 2.16.84 0.1.695608.3.579.2.1259 1998 Unknown [id number] 2.16.840 .1.563472.3.579.2.1259 1998 Unknown [id number] 2.16.840 .1.467227.3.579.2.1259 1998 Unknown [id number] 2.16.840 .1.476600.3.579.2.1259 1998 Unknown [id number] 2.16.8 40.1.410146.3.579.2.1286 1998 Unknown [id number] 2.16.8 40.1.338580.3.579.2.1286 1998 Unknown [id number] 2.16.8 40.1.105508.3.579.2.1286 1998 Unknown [id number] 2.16.8 40.1.342945.3.579.2.1286 1998 Unknown [id number] 2.16.84 0.1.644849.3.579.2.1286 1998 Unknown [id number] 2.16.84 0.1.030653.3.579.2.1286 1959 Private Health Insurance [id number] 1959 Self-pay 1959 Unknown [id number] 1959 Unknown [id number] Unknown [id number] 2.16.8 40.1.179151.3.579.2.531 Social History Date Type Detail Facility Start: 03-10-2023 End: 03-30-2023 Tobacco smoking status NHIS Never smoked tobacco (finding) [facility] Start: 2000 Sex Assigned At Female F [facility] Start: 03-30-2023 End: 05-16-2023 Tobacco use and exposure Smokeless tobacco non-user [facility] Start: 04-20-2023 End: 05-04-2023 Alcohol intake Ex-drinker (finding) [facility] Start: 05-21-2020 End: 04-20-2023 History of Social function [facility] Start: 05-21-2020 End: 04-20-2023 Tobacco use panel [facility] Housing Instability Unknown [facility] Start: 2000 Sex Assigned At Not on file P [facility] Start: 05-16-2023 Alcohol intake Lifetime non-d [...] up: As needed documented in this encounter [facility] [employer] [facility] Instructions 04-20-2023 Patient Instructions Note Date & Type Note Facility 04-20-2023 Instructions Terri Estrada RN - 04/20/2023 1:45 PM EST Your surgery/procedure is scheduled at [facility] on 05/04/23 at 0730 Arrival Time 0530 [facility] Address: [address] [place] [address] in [address]ing lot located on [facility]. Report to the Entrance B. Check in at the information desk the surgery. The waiting room located on the second floor. If you have any questions prior to surgery, please call Pre-Admission Clinic at [phone] between 7:30 am and 4:30 pm Monday through Monday. If you have questions the morning of surgery, please call the Pre-op Department at [phone]. PLEASE FOLLOW THESE INSTRUCTIONS OR YOUR SURGERY [...] would like to schedule therapy at a [facility] facility, please call [phone] ([phone]). Do not use lotions, creams, powders, perfume, make up, cologne or after-shaves day of surgery. Remove ALL jewelry including wedding rings, body piercings,hair extensions that contain metal, nail citizen of [place], make-up, and contact lens. You may brush [...] RIGHTS AND RESPONSIBILITIES As a patient at [facility], you have the right to: Receive medical care and be informed of who is taking care of you Be treated with dignity and respect Have a family member/electroplating sales representative of choice and your physician notified of your admission Receive information and actively participate in decisions about your care and treatment Refuse care, treatment and services Decide who may provide your support and speak for you Access scientology and spiritual services Participate in ethical issues [...] of hospital charges and payment methods Patient/patient electroplating sales representative responsibilities are to: Provide information [...] in clean clothes. documented in this encounter [facility] Note 04-20-2023 Perioperative Nursing Note - Lexi Reddy RN - 04/20/2023 1:45 PM EST Note Date & Type Note Facility 04-20-2023 Miscellaneous Notes Formattin g of this note might be different from the original. Appt reminder call done-message left documented in this encounter [facility] Nurse Note 04-20-2023 Perioperative Nursing Note - Lexi Reddy RN - 04/20/2023 1:45 PM EST Note Date & Type Note Facility 04-20-2023 Nurse Note Appt reminder call done-message left [facility] Evaluation note Note Date & Type Note Facility Evaluation note No assessment information availa [facility] Work Phone: Evaluation note Note Date & Type Note Facility Evaluation note Diagnosis Status post laparoscopic cholecystectomy- Primary Other postprocedural status documented in this encounter [facility] Hospital Discharge instructions Note Date & Type Note Facility Hospital Discharge instructions Additional Instructions Return if symptoms are worse Continue your Zofran and Reglan at home and will add Phenergan for vomiting Follow-up with your surgeon [facility] Work Phone: Instructions Attachments Note Date & Type Note Facility Instructions The following attachments cannot be sent through Care Everywhere.Cholecystectomy Discharge Instructions (Salvadorean)documented in this encounter [facility] Summary Purpose Family History No Family History [...] section and content) DATE CREATED AUTHOR 09/28/2017 [facility] Mike barajas DATE CREATED AUTHOR AUTHOR'S ORGANIZ ATION 09/29/2017 [facility] DATE CREATED AUTHOR AUTHOR'S ORGANIZ ATION 04/16/2020 [facility] DATE CREATED AUTHOR AUTHOR'S ORGANIZ ATION 08/24/2022 [facility] DATE CREATED AUTHOR AUTHOR'S ORGANIZ ATION 03/21/2023 [facility] DATE CREATED AUTHOR AUTHOR'S ORGANIZ ATION 05/09/2023 [facility] EPIC DATE CREATED AUTHOR AUTHOR'S ORGANIZ ATION 05/24/2023 [facility] Care Teams (unrecognized sec tion and content) Team Status: Active Member Role Status Dates Supriya Cerrato Primary Care Provider Active Team Status: Inactive Member Role Status Dates Supriya Cerrato Primary Care Provider Active Jacky Alarcon MD Emergency Provider Active [employer] Relationship Specialty Start Date End Date Supriya Cerrato, KD-[employer] [address] [place] [id number] PCP - General Nurse Practitioner 03/30/23 [employer] Relationship Specialty Start Date End Date Supriya Cerrato APRN-ME[employer] STUFFER [address] [place] [address] PCP - General Nurse Practitioner 03/30/23 Goals [...] BE BASED ON THE PRIMARY CLINICAL RECORDS. [facility] [employer] provides no warranty or guarantee of the accuracy or completeness of information in this document.
== END 2023-06-19 13:12 | disposition home or self-care (01) ==
LOC: NOMS 13:11
PROVIDERS: Visit Provider Obstetrics & Gynecology
DX: Z36.89 Encounter for other specified antenatal screening (principal); Z3A.20 20 weeks gestation of pregnancy
CPT/HCPCS: 76805; 76817

== ENCOUNTER 2023-07-10 09:02 | Outpatient (OUT) | payer OTHER, SELFPAY ==
--- NOTE | 2023-07-10 09:05 | US_ITS ---
The [address] [address] Patient Name: EDISON ASHLEY MRN: [id number] date: 2000 Sex: F Assigned Patient Location: [facility] Current Patient Location: [facility] Accession/Order Number: [id number] Exam Date: 07/10/2023 09:06 Report Date: 07/10/2023 09:57 At the request of: XIN GRULLON Procedure: US OB incomplete anatomy EXAM: US OB incomplete anatomy, US OB amniotic fluid vol HISTORY: Follow-up ultrasound of anatomy Z36.2 COMPARISON: Ultrasound OB anatomy 06/19/2023 TECHNIQUE: Transabdominal ultrasound FINDINGS: Presentation: Breech Heart rate: 136 bpm Amniotic fluid: 11.5 cm (5th percentile is 9.8 cm); largest pocket is 4.0 cm. Anatomy: Adequate visualization of three-vessel cord and hard palate. GA: 23 weeks 0 days LILIAN: 11/06/2023 US/US OB incomplete anatomy IMPRESSION: 1. Single live intrauterine . 2. Normal amniotic fluid volume, but on the lower end. 3. Adequate visualization with no appreciable abnormality of the three-vessel cord and hard palate. Electronically authenticated by: PAM SALAZAR Date: 07/10/2023 09:57
--- NOTE | 2023-07-10 09:05 | US_ITS ---
The [address] [address] Patient Name: EDISON ASHLEY MRN: [id number] date: 2000 Sex: F Assigned Patient Location: [facility] Current Patient Location: [facility] Accession/Order Number: [id number] Exam Date: 07/10/2023 09:06 Report Date: 07/10/2023 09:57 At the request of: XIN GRULLON Procedure: US OB amniotic fluid vol EXAM: US OB incomplete anatomy, US OB amniotic fluid vol HISTORY: Follow-up ultrasound of anatomy Z36.2 COMPARISON: Ultrasound OB anatomy 06/19/2023 TECHNIQUE: Transabdominal ultrasound FINDINGS: Presentation: Breech Heart rate: 136 bpm Amniotic fluid: 11.5 cm (5th percentile is 9.8 cm); largest pocket is 4.0 cm. Anatomy: Adequate visualization of three-vessel cord and hard palate. GA: 23 weeks 0 days LILIAN: 11/06/2023 US/US OB amniotic fluid vol IMPRESSION: 1. Single live intrauterine . 2. Normal amniotic fluid volume, but on the lower end. 3. Adequate visualization with no appreciable abnormality of the three-vessel cord and hard palate. Electronically authenticated by: PAM SALAZAR Date: 07/10/2023 09:57
--- OUTSIDE RECORDS SUMMARY | 2023-07-10 09:11 | XMS_ITS | CCD ---
Author Organization [facility] Care Team Providers Care Cyber Security Administrator Name Role Phone Galdino, Dickson W Unavailable Unavailable Galdino, Dickson W Unavailable Unavailable No Doctor Assigned, Nodr Unavailable Unavail able Galdino, Dickson W Unavailable Unavailable Robertson, Dickson W Unavailable Unavailable No Doctor Assigned, Nodr Unavailable Unavail able SHEMAR ., STEFAN Admitting Unavailable SHEMAR ., STEFAN Consulting Unavailable AICHHOLZ, INFORMATION TECHNOLOGY INSTRUCTOR SUPRIYA Primary Care Unavailable SHEMAR ., STEFAN Attending Unavailable MORTEZA ., DR LAUREN Admitting Unavailable SHEMAR ., STEFAN Consulting Unavailable AICHHOLZ, INFORMATION TECHNOLOGY INSTRUCTOR SUPRIYA Primary Care Unavailable MORTEZA ., DR LAUREN Attending Unavailable SHEMAR ., STEFAN Admitting Unavailable SHEMAR ., STEFAN Consulting Unavailable SHEMAR ., STEFAN Attending Unavailable AICHHOLZ, INFORMATION TECHNOLOGY INSTRUCTOR SUPRIYA Primary Care Unavailable AICHHOLZ, INFORMATION TECHNOLOGY INSTRUCTOR SUPRIYA Primary Care Unavailable MORTEZA ., DR LAUREN Attending Unavailable MORTEZA ., DR LAUREN Admitting Unavailable MORTEZA ., DR LAUREN Admitting Unavailable MORTEZA ., DR LAUREN Attending Unavailable AICHHOLZ, INFORMATION TECHNOLOGY INSTRUCTOR SUPRIYA Primary Care Unavailable MORTEZA ., DR LAUREN Consulting Unavailable KARASIK ., DR MURPHY Attending Unavailabl e AICHHOLZ, INFORMATION TECHNOLOGY INSTRUCTOR SUPRIYA Primary Care Unavailable KARASIK ., DR MURPHY Admitting Unavailabl e Tristan Hart Consulting Unavailable KARASIK ., DR MURPHY Consulting Unavailabl e MORTEZA ., DR LAUREN Attending Unavailable MORTEZA ., DR LAUREN Admitting Unavailable REQUEST, DR REBECCA LISTED Primary Care Unavaila ble MORTEZA ., DR LAUREN Consulting Unavailable MORTEZA ., DR LAUREN Procedure Practitioner Unavail able MORTEZA ., DR LAUREN Admitting Unavailable MORTEZA ., DR LAUREN Consulting Unavailable AICHHOLZ, INFORMATION TECHNOLOGY INSTRUCTOR SUPRIYA Primary Care Unavailable MORTEZA ., DR LAUREN Attending Unavailable Zieber, Tristan Consulting Unavailable MORTEZA ., DR LAUREN Consulting Unavailable REQUEST, DR NONE LISTED Primary Care Unavaila ble MORTEZA ., DR LAUREN Attending Unavailable MORTEZA ., DR LAUREN Admitting Unavailable Zieber, Tristan Consulting Unavailable MORTEZA ., DR LAUREN Admitting Unavailable AICHHOLZ, INFORMATION TECHNOLOGY INSTRUCTOR SUPRIYA Primary Care Unavailable MORTEZA ., DR LAUREN Attending Unavailable LAKE LINDEN, DR DONALD Bryan Consulting Unavailable MORTEZA ., DR LAUREN Consulting Unavailable MORTEZA ., DR LAUREN Admitting Unavailable AICHHOLZ, INFORMATION TECHNOLOGY INSTRUCTOR SUPRIYA Primary Care Unavailable MORTEZA ., DR LAUREN Attending Unavailable MORTEZA ., DR LAUREN Consulting Unavailable SHEMAR ., STEFAN Attending Unavailable SHEMAR ., STEFAN Admitting Unavailable Zieber, Tristan Consulting Unavailable REQUEST, DR NONE LISTED Primary Care Unavaila ble SHEMAR ., STEFAN Consulting Unavailable MORTEZA ., DR LAUREN Admitting Unavailable MORTEZA ., DR LAUREN Consulting Unavailable MORTEZA ., DR LAUREN Attending Unavailable AICHHOLZ, INFORMATION TECHNOLOGY INSTRUCTOR SUPRIYA Primary Care Unavailable Aichreillyz, Supriya J Primary Care Provider MD Jacky Alarcon Emergency Provider [phone] Jacky Alarcon Attending Unavailable Jacky Alarcon Admitting Unavailable Aicstef, Supriya J Primary Care Unavailable Aichholz LOOK OUT TOWER FIRE WATCHER-INFORMATION TECHNOLOGY INSTRUCTOR, Supriya J Primary Care Provider Unavailable Primary Care Provider Unavailabl e AL-JUBOURI, PA A Referring Unavailabl e AICHHOLZ, SUPRIYA J Primary Care Unavailable AL-JUBOURI, PA A Admitting Unavailabl e AL-JUBOURI, PA A Attending Unavailabl e AL-JUBOURI, PA A Referring Unavailabl e AICHHOLZ, SUPRIYA J Primary Care Unavailable AL-JUBOURI, PA A Attending Unavailabl e AICHHOLZ, SUPRIYA J Primary Care Unavailable SUKI ELI Attending Unavailable AICHHOLZ, SUPRIYA J Primary Care Unavailable AL-JUCALVINI, PA A Attending Unavailabl e AICHHOLZ, SUPRIYA J Referring Unavailable AICHHOLZ, SUPRIYA J Primary Care Unavailable XIN PRO Attending Unavailable XIN PRO Attending Unavailable XIN PRO Attending Unavailable XIN PRO Attending Unavailable XIN PRO Attending Unavailable STEFAN STATON Attending Unavailable Allergies Allergy Classification Reported Allergen(s) Allergy [...] applicable or unspecified; Translations: [MAT CARE EXCSS [facility] 3RD TRI UNS] Onset: 06-06-2022 Episodic Other [...] WITH AUTO DIFFon BASOPHILS ABSOLUTE AUTO 0.0 [facility] Healthcare Basophils/100 WBC (Bld) 0.3 % 0.2 - 2.0 % [facility] Eosinophils/100 WBC (Bld) 2.0 % 0.9 - 7.0 % [facility] Erythrocyte distribution width (RBC) [Ratio] 12.8 % 11.0 - 15.0 % [facility] Hematocrit (Bld) [Volume fraction] 39.3 % 36.0 - 48.0 % [facility] Hemoglobin (Bld) [Mass/Vol] 14.1 g/dL 12.0 - 16.0 g/dL [facility] IMMATURE GRANULOCYTES ABS AUTO 0.07 High [facility] Immature granulocytes/100 WBC (Bld) 0.7 % High 0.0 - 0.5 % [facility] Interpretation and review of laboratory results Abnormal [facility] LYMPHOCYTES ABSOLUTE AUTO 2.0 [facility] Lymphocytes/100 WBC (Bld) 19.1 % Low 20.5 - 60.0 % [facility] MCH (RBC) [Entitic mass] 32.0 pg 26.7 - 34.0 pg [facility] MCHC (RBC) [Mass/Vol] 35.9 g/dL High 29.9 - 35.2 g/dL [facility] MCV (RBC) [Entitic vol] 89.3 fL 81.0 - 99.0 fL [facility] MONOCYTES ABSOLUTE AUTO 0.5 [facility] Monocytes/100 WBC (Bld) 4.7 % 1.7 - 12.0 % [facility] NEUTROPHILS ABSOLUTE AUTO 7.6 High [facility] Neutrophils/100 WBC (Bld) 73.2 % 43.0 - 75.0 % [facility] Platelet mean volume (Bld) [Entitic vol] 11.4 fL 9.5 - 13.5 fL [facility] TBH EO # 0.2 [facility]H PLT 218 [facility] RBC 4.40 [facility] WBC 10.4 [facility] Surgical Pathologyon 024 Surgical Pathology Normal [facility] Comment on above: Result Comment: [facility] [address] [place] [address] Surgical Pathology Consultation Patient Name:DARY ASHLEY:2000 (Age: 23)Gender:FTaken:4Reported:4Physician(s):GERSON Kelsey To: Rec. 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 No evidence of malignancy or dysplasia. Cholelithiasis. Report Electronically Signed Out ao/05/12/2023olamide Moreno MD Interpretation performed at [facility], [address] [place] [address], License number: [id number]. Clinical History Cholelithiasis. Gross Description Received in [...] congested, hemorrhagic and velvety in the neck. Mfts sections are submitted in cassettes A- B, as: A- cystic duct margin and sales representative education courses ragged defects,B- sales representative education courses neck body and fundus. After initial microscopic evaluation, additional sections are submitted in cassettes C-E. (5,ss,[id number], m6) MARYJANE/MD merida/05/04/2023SSI Specimen(s) Received Gallbladder Fee Codes(s): 1; 29370 US gall bladderon 03-11-2023 gall bladder [facility] Main [place] [id number] Ultrasound Report Signed Patient: Dary Ashley MR#: [id number] : 2000 Acct:[id number] Age/Sex: 22 / F ADM Date: 03/10/23 Loc: ER Room: Type: [facility] ER Attending Dr: Ordering Provider: Jacky [...] Nataliia Scott M.D.03/11/2023 8:10 AM Dictation Location: [place] [address] Tech: Isi Caballero Transcribed By: RONI 03/11/23 0810 Dictated By: Nataliia Scott MD 03/11/23 0807 Signed By: 03/11/23 0810 Normal [facility] Alanine aminotransferase [En zymatic activity/volume] in Serum or PlasmaOrdered By: Jacky Alarcon on 03-10-2023 ALT [Catalytic activity/Vol] 36 U/L 7-52 [facility] Albumin [Mass/volume] in Ser um or Plasma by Bromocresol green (BCG) dye binding methoOrdered By: Jacky Alarcon on 03-10-2023 Albumin BCG dye [Mass/Vol] 4.5 g/dL 3.5-5.7 [facility] Alkaline phosphatase [Enzyma tic activity/volume] in Serum or PlasmaOrdered By: Jacky Alarcon on 03-10-2023 ALP [Catalytic activity/Vol] 71 U/L 34-104 [facility] Aspartate aminotransferase [ Enzymatic activity/volume] in Serum or PlasmaOrdered By: Jacky Alarcon on 03-10-2023 AST [Catalytic activity/Vol] 17 U/L 13-39 [facility] Automated erythrocytes count in urine sediment (number/area)Ordered By: Jacky Alarcon on 03-10-2023 RBC Auto (Urine sed) [#/Area] 50-100 [HPF] 0-4 [facility] Automated leukocytes count i n urine sediment (number/area)Ordered By: Jacky Alarcon on 03-10-2023 WBC Auto (Urine sed) [#/Area] 5-9 [HPF] 0-4 [facility] Basic Metabolic Panelon 12-0 Anion gap [Moles/Vol] 16.5 mmol/L High 6.0-15.[address] [facility] Comment on above: Performed By: #### L IPASE, HCGQNT, HEPATIC, BMP, CBC #### [facility] [address] Calcium [Mass/Vol] 9.3 mg/dL Normal 8.6-10.3 [facility] Comment on above: Performed By: #### L IPASE, HCGQNT, HEPATIC, BMP, CBC #### [facility] [address] [place] [address] [place] Chloride [Moles/Vol] 101 mmol/L Normal 98-107 [facility] Comment on above: Performed By: #### L IPASE, HCGQNT, HEPATIC, BMP, CBC #### [facility] [address] [place] [address] [place] CO2 [Moles/Vol] 18.8 mmol/L Low 21.0-31.0 [facility] Comment on above: Performed By: #### L IPASE, HCGQNT, HEPATIC, BMP, CBC #### [facility] [address] [place] [address] [place] Creatinine [Mass/Vol] 0.64 mg/dL Normal 0.60-1.20 [facility] Comment on above: Performed By: #### L IPASE, HCGQNT, HEPATIC, BMP, CBC #### [facility] [address] [place] [address] [place] Creatinine Clr Calc Pharmacy 148.58 [facility] Comment on above: Performed By: #### L IPASE, HCGQNT, HEPATIC, BMP, CBC #### [place] [address] [place] GFR/1.73 sq M.predicted MDRD (S/P/Bld) [Vol rate/Area] mL/min/{1.73_m2} [facility] Comment on above: Performed By: #### L IPASE, HCGQNT, HEPATIC, BMP, CBC #### [facility] [address] Glucose [Mass/Vol] 83 mg/dL Normal 70-100 [facility] Comment on above: Result Comment: [facility] Glucose Reference Range is dependent on time and content of last meal. Glucose of more than 200 mg/dL in a nonstressed, ambulatory subject supports the diagnosis of Diabetes Mellitus. ADA recommended reference range Performed By: #### L IPASE, HCGQNT, HEPATIC, BMP, CBC #### [facility] [address] Potassium [Moles/Vol] 3.3 mmol/L Low 3.5-5.1 [facility] Comment on above: Performed By: #### L IPASE, HCGQNT, HEPATIC, BMP, CBC #### [facility] [address] Sodium [Moles/Vol] 133 mmol/L Low 136-145 [facility] Comment on above: Performed By: #### L IPASE, HCGQNT, HEPATIC, BMP, CBC #### [facility] [address] Urea nitrogen [Mass/Vol] 6 mg/dL Low 7-25 [facility] Comment on above: Performed By: #### L IPASE, HCGQNT, HEPATIC, BMP, CBC #### [facility] [address] Basophils Auto (Bld) [#/Vol] Ordered By: Jacky Alarcon on 03-10-2023 Basophils (Bld) [#/Vol] 0.1 10*3/uL 0.0-0.2 [facility] Basophils/100 WBC Auto (Bld) Ordered By: Jacky Alarcon on 03-10-2023 Basophils/100 WBC (Bld) 0.4 % . [facility] Bilirubin Test strip Ql (U)O rdered By: Jacky Alarcon on 03-10-2023 Bilirubin Ql (U) Negative Negative [facility] Bilirubin.direct [Mass/volum e] in Serum or PlasmaOrdered By: Jacky Alarcon on 03-10-2023 Bilirubin.direct [Mass/Vol] 0.40 mg/dL 0.03-0.18 [facility] Bilirubin.total [Mass/volume ] in Serum or PlasmaOrdered By: Jacky Alarcon on 03-10-2023 Bilirubin [Mass/Vol] 1.2 mg/dL 0.3-1.0 [facility] Calcium [Mass/volume] in Ser um or PlasmaOrdered By: Jacky Alarcon on 03-10-2023 Calcium [Mass/Vol] 9.3 mg/dL 8.6-10.3 [facility] Carbon dioxide, total [Moles /volume] in Serum or PlasmaOrdered By: Jacky Alarcon on 03-10-2023 CO2 [Moles/Vol] 18.8 mmol/L 21.0-31.0 [facility] Chloride [Moles/volume] in S rahul or PlasmaOrdered By: Jacky Alarcon on 03-10-2023 Chloride [Moles/Vol] 101 mmol/L 98-107 [facility] Choriogonadotropin.beta subu nit [Units/volume] in Serum or PlasmaOrdered By: Jacky Alarcon on 03-10-2023 [place] [address].00 m[IU]/mL [facility] Comment on above: Approximate Approxim ate hCG Gestational Age Range (mIU/ml) (weeks)0.2-1 5-50 1-2 50-500 2-3 100-5,000 3-4 500-10,000 4-5 1,000-50,000 5-6 10,000-100,000 6-8 15,000-200,000 8-12 10,000-100,000 Color Auto (U)Ordered By: Corinna Alarcon on 03-10-2023 Color (U) Dark yellow Yellow [facility] Complete Blood Count Auto Di ffon 03-10-2023 Basophils (Bld) [#/Vol] 0.1 10*3/uL Normal 0.0-0.2 [facility] Comment on above: Result Comment: PERF ORMED BY: [facility] [address] [place] [address] PATHOLOGIST WINDOW CLEANER ANDRÉS MACEDO M.D. Performed By: #### L IPASE, HCGQNT, HEPATIC, BMP, CBC #### [address] Basophils/100 WBC (Bld) 0.4 % Normal . [facility] Comment on above: Performed By: #### L IPASE, HCGQNT, HEPATIC, BMP, CBC #### [address] Eosinophils (Bld) [#/Vol] 0.1 10*3/uL Normal 0.0-0.45 [facility] Comment on above: Performed By: #### L IPASE, HCGQNT, HEPATIC, BMP, CBC #### [address] Eosinophils/100 WBC (Bld) 0.5 % Normal . [facility] Comment on above: Performed By: #### L IPASE, HCGQNT, HEPATIC, BMP, CBC #### [address] Erythrocyte distribution width (RBC) [Ratio] 13.3 % Normal 11.9-15.3 [facility] Comment on above: Performed By: #### L IPASE, HCGQNT, HEPATIC, BMP, CBC #### [address] Hematocrit (Bld) [Volume fraction] 47.2 % High 34.0-46.4 [facility] Comment on above: Performed By: #### L IPASE, HCGQNT, HEPATIC, BMP, CBC #### [address] Hemoglobin (Bld) [Mass/Vol] 16.5 g/dL High 11.8-15.4 [facility] Comment on above: Performed By: #### L IPASE, HCGQNT, HEPATIC, BMP, CBC #### [address] Lymphocytes (Bld) [#/Vol] 1.9 10*3/uL Normal 1.00-4.8 [facility] Comment on above: Performed By: #### L IPASE, HCGQNT, HEPATIC, BMP, CBC #### [address] Lymphocytes/100 WBC (Bld) 11.6 % Normal . [facility] Comment on above: Performed By: #### L IPASE, HCGQNT, HEPATIC, BMP, CBC #### [address] MCH (RBC) [Entitic mass] 30.8 pg Normal 24.7-34.3 [facility] Comment on above: Performed By: #### L IPASE, HCGQNT, HEPATIC, BMP, CBC #### [address] MCV (RBC) [Entitic vol] 87.8 fL Normal 80-100 [facility] Comment on above: Performed By: #### L IPASE, HCGQNT, HEPATIC, BMP, CBC #### [address] Mean Corpuscular HGB Conc 35.0 g/dL Normal 32.0-35.0 [facility] Comment on above: Performed By: #### L IPASE, HCGQNT, HEPATIC, BMP, CBC #### [address] Monocytes (Bld) [#/Vol] 1.4 10*3/uL High 0.0-0.8 [facility] Comment on above: Performed By: #### L IPASE, HCGQNT, HEPATIC, BMP, CBC #### [address] Monocytes/100 WBC (Bld) 16.05 % Normal 0.00-20.00 [facility] Comment on above: Performed By: #### L IPASE, HCGQNT, HEPATIC, BMP, CBC #### [address] Monocytes/100 WBC (Bld) 8.8 % Normal . [facility] Comment on above: Performed By: #### L IPASE, HCGQNT, HEPATIC, BMP, CBC #### [address] [place] [address] [place] Neutrophils (Bld) [#/Vol] 12.6 10*3/uL High 1.8-7.7 [facility] Comment on above: Performed By: #### L IPASE, HCGQNT, HEPATIC, BMP, CBC #### [address] Neutrophils/100 WBC (Bld) 78.7 % Normal . [facility] Comment on above: Performed By: #### L IPASE, HCGQNT, HEPATIC, BMP, CBC #### [address] NRBC% 0.1 /100{WBC} Normal 0-0.5 [facility] Comment on above: Performed By: #### L IPASE, HCGQNT, HEPATIC, BMP, CBC #### [address] Platelet mean volume (Bld) [Entitic vol] 9.7 fL Normal 6.3-10.7 [facility] Comment on above: Performed By: #### L IPASE, HCGQNT, HEPATIC, BMP, CBC #### [address] Platelets (Bld) [#/Vol] 263 10*3/uL Normal 150-450 [facility] Comment on above: Performed By: #### L IPASE, HCGQNT, HEPATIC, BMP, CBC #### [address] RBC (Bld) [#/Vol] 5.37 10*6/uL High 3.60-5.00 [facility] Comment on above: Performed By: #### L IPASE, HCGQNT, HEPATIC, BMP, CBC #### [address] WBC (Bld) [#/Vol] 16.0 10*3/uL High 3.8-11.6 [facility] Comment on above: Performed By: #### L IPASE, HCGQNT, HEPATIC, BMP, CBC #### [facility] [address] [place] [address] [place] Creatinine [Mass/volume] in Serum or PlasmaOrdered By: Jacky Alarcon on 03-10-2023 Creatinine [Mass/Vol] 0.64 mg/dL 0.60-1.20 [facility] Dipstick and Microscopicon 1 05-11-2022 Appearance (U) Turbid Critically abnormal Clear [facility] Comment on above: Order Comment: Name Collection Type:: Clean-Voided Midstream Performed By: #### A DDONUAPLUS, CUU #### [facility] [address] [place] [address] [place] Bacteria,Urine Rare High None Seen [facility] Comment on above: Order Comment: Name Collection Type:: Clean-Voided Midstream Performed By: #### A DDONUAPLUS, CUU #### [facility] [address] [place] [address] [place] Bilirubin,Urine Negative Normal Negative [facility] Comment on above: Order Comment: Name Collection Type:: Clean-Voided Midstream Performed By: #### A DDONUAPLUS, CUU #### [facility] [address] [place] [address] [place] Color (U) Dark Yellow Critically abnormal Yellow [facility] Comment on above: Order Comment: Name Collection Type:: Clean-Voided Midstream Performed By: #### A DDONUAPLUS, CUU #### [facility] [address] [place] [address] [place] Glucose Ql (U) Normal Normal Normal [facility] Comment on above: Order Comment: Name Collection Type:: Clean-Voided Midstream Performed By: #### A DDONUAPLUS, CUU #### [facility] [address] [place] [address] [place] Hyaline Casts,Urine 9-19 High 0-8 [facility] Comment on above: Order Comment: Name Collection Type:: Clean-Voided Midstream Result Comment: PERF ORMED BY: [place] [address] PATHOLOGIST WINDOW CLEANER ANDRÉS MACEDO M.D. Performed By: #### A DDONUAPLUS, CUU #### [place] [address] [place] Ketones Ql (U) 4+ High Negative [facility] Comment on above: Order Comment: Name Collection Type:: Clean-Voided Midstream Performed By: #### A DDONUAPLUS, CUU #### [address] Leukocyte esterase Test strip Ql (U) 1+ High Negative [facility] Comment on above: Order Comment: Name Collection Type:: Clean-Voided Midstream Performed By: #### A DDONUAPLUS, CUU #### [place] [address] [place] Nitrite,Urine Negative Normal Negative [facility] Comment on above: Order Comment: Name Collection Type:: Clean-Voided Midstream Performed By: #### A DDONUAPLUS, CUU #### [place] [address] [place] Occult Blood,Urine 3+ High Negative [facility] Comment on above: Order Comment: Name Collection Type:: Clean-Voided Midstream Result Comment: PERF ORMED BY: [place] [address] PATHOLOGIST WINDOW CLEANER ANDRÉS MACEDO M.D. Performed By: #### A DDONUAPLUS, CUU #### [place] [address] [place] Othe Crystals,Urine Normal [facility] Comment on above: Order Comment: Name Collection Type:: Clean-Voided Midstream Result Comment: sulf a crystals Performed By: #### A DDONUAPLUS, CUU #### [place] [address] [place] pH (U) 6.5 [pH] Normal 5.0-9.0 [facility] Comment on above: Order Comment: Name Collection Type:: Clean-Voided Midstream Performed By: #### A DDONUAPLUS, CUU #### [place] [address] [place] Protein (U) [Mass/Vol] 100 mg/dL High Negative [facility] Comment on above: Order Comment: Name Collection Type:: Clean-Voided Midstream Performed By: #### A DDONUAPLUS, CUU #### [address] RBC,Urine 50-100 High 0-4 [facility] Comment on above: Order Comment: Name Collection Type:: Clean-Voided Midstream Performed By: #### A DDONUAPLUS, CUU #### [address] Specificy [place],Urine 1.029 Normal 1.001-1.03 0 [facility] Comment on above: Order Comment: Name Collection Type:: Clean-Voided Midstream Performed By: #### A DDONUAPLUS, CUU #### [address] Squamous Epithelial Cell,Urine 1-2 Normal 0-2 [facility] Comment on above: Order Comment: Name Collection Type:: Clean-Voided Midstream Performed By: #### A DDONUAPLUS, CUU #### [address] Urobilinogen,Urine Normal Normal Normal [facility] Comment on above: Order Comment: Name Collection Type:: Clean-Voided Midstream Performed By: #### A DDONUAPLUS, CUU #### [place] [address] [place] WBC,Urine 5-9 High 0-4 [facility] Comment on above: Order Comment: Name Collection Type:: Clean-Voided Midstream Performed By: #### A DDONUAPLUS, CUU #### [place] [address] [place] Eosinophils Auto (Bld) [#/Vo l]Ordered By: Jacky Alarcon on 03-10-2023 Eosinophils (Bld) [#/Vol] 0.1 10*3/uL 0.0-0.45 [facility] Eosinophils/100 WBC Auto (Bl d)Ordered By: Jacky Alarcon on 03-10-2023 Eosinophils/100 WBC (Bld) 0.5 % . [facility] Erythrocyte distribution wid th Auto (RBC) [Ratio]Ordered By: Jacky Alarcon on 03-10-2023 Erythrocyte distribution width (RBC) [Ratio] 13.3 % 11.9-15.3 [facility] Globulin Calc (S) [Mass/Vol] Ordered By: Jacky Alarcon on 03-10-2023 Globulin (S) [Mass/Vol] 3.5 g/dL [facility] Glucose [Mass/volume] in Ser um or PlasmaOrdered By: Jacky Alarcon on 03-10-2023 Glucose [Mass/Vol] 83 mg/dL 70-100 [facility] Comment on above: ADA recommended refe rence rangeRandom Glucose Reference Range is dependent on time and content of last meal. Glucose of more than 200 mg/dL in a nonstressed, ambulatory subject supports the diagnosis of Diabetes Mellitus. HCG ( test) IAopal guerrero Ql (U)Ordered By: Jacky Alarcon on 03-10-2023 HCG ( test) Ql (U) Positive [facility] HCG,Quantitativeon 3 HCG,Quantitative 42153.00 m[iU]/mL Normal F [facility] Comment on above: Result Comment: Appr oximate Approximate hCG Gestational Age Range (mIU/ml) (weeks) 0.2-1 5-50 1-2 50-500 2-3 100-5,000 3-4 500-10,000 4-5 1,000-50,000 5-6 10,000-100,000 6-8 15,000-200,000 8-12 10,000-100,000 PERFORMED BY: [place] [address] PATHOLOGIST WINDOW CLEANER ANDRÉS MACEDO M.D. Performed By: #### L IPASE, HCGQNT, HEPATIC, BMP, CBC #### [address] HCG,Urineon 03-10-2023 Beta HCG ( test) Ql (U) Positive High [facility] Comment on above: Result Comment: PERF ORMED BY: [facility] [address] [place] [address] PATHOLOGIST WINDOW CLEANER ANDRÉS MACEDO M.D. Performed By: #### U HCG #### [address] Hematocrit Auto (Bld) [Volum e fraction]Ordered By: Jacky Alarcon on 03-10-2023 Hematocrit (Bld) [Volume fraction] 47.2 % 34.0-46.4 [facility] Hemoglobin [Mass/volume] in BloodOrdered By: Jacky Alarcon on 03-10-2023 Hemoglobin (Bld) [Mass/Vol] 16.5 g/dL 11.8-15.4 [facility] Hepatic Panelon 03-10-2023 Albumin [Mass/Vol] 4.5 g/dL Normal 3.5-5.7 [facility] Comment on above: Performed By: #### L IPASE, HCGQNT, HEPATIC, BMP, CBC #### [facility] [address] [place] [address] [place] Albumin/Globulin [Mass ratio] 1.3 {ratio} Normal [facility] Comment on above: Performed By: #### L IPASE, HCGQNT, HEPATIC, BMP, CBC #### [facility] [address] [place] [address] [place] ALP [Catalytic activity/Vol] 71 U/L Normal 34-104 [facility] Comment on above: Performed By: #### L IPASE, HCGQNT, HEPATIC, BMP, CBC #### [facility] [address] [place] [address] [place] ALT [Catalytic activity/Vol] 36 U/L Normal 7-52 [facility] Comment on above: Performed By: #### L IPASE, HCGQNT, HEPATIC, BMP, CBC #### [place] [address] [place] AST [Catalytic activity/Vol] 17 U/L Normal 13-39 [facility] Comment on above: Performed By: #### L IPASE, HCGQNT, HEPATIC, BMP, CBC #### [place] [address] [place] Bilirubin [Mass/Vol] 1.2 mg/dL High 0.3-1.0 [facility] Comment on above: Performed By: #### L IPASE, HCGQNT, HEPATIC, BMP, CBC #### [facility] [address] Bilirubin,Indirect 0.8 mg/dL Normal [facility] Comment on above: Performed By: #### L IPASE, HCGQNT, HEPATIC, BMP, CBC #### [facility] [address] Bilirubin.indirect [Mass/Vol] 0.40 mg/dL High 0.03-0.18 [facility] Comment on above: Performed By: #### L IPASE, HCGQNT, HEPATIC, BMP, CBC #### [facility] [address] Globulin (S) [Mass/Vol] 3.5 g/dL Normal [facility] Comment on above: Performed By: #### L IPASE, HCGQNT, HEPATIC, BMP, CBC #### [facility] [address] Protein [Mass/Vol] 8.0 g/dL Normal 6.4-8.9 [facility] Comment on above: Performed By: #### L IPASE, HCGQNT, HEPATIC, BMP, CBC #### [address] Ketones Auto test strip (U) [Mass/Vol]Ordered By: Jacky Alarcon on 03-10-2023 Ketones (U) [Mass/Vol] 4+ Negative [facility] - UrinalysisOrder ed By: Jacky Alarcon on 03-10-2023 Hyaline casts LM Ql (Urine sed) 9-19 [LPF] 0-8 [facility] Leukocytes [#/volume] correc anabell for nucleated erythrocytes in Blood by Automated counOrdered By: Jacky Alarcon on 03-10-2023 WBC corrected for nucl RBC Auto (Bld) [#/Vol] 16.0 10*3/uL 3.8-11.6 [facility] Lipaseon 12-01-2023 Lipase [Catalytic activity/Vol] 35.0 U/L Normal 11.0-82.0 [facility] Comment on above: Result Comment: PERF ORMED BY: [facility] [address] [place] [address] PATHOLOGIST W[employer] ANDRÉS MACEDO M.D. Performed By: #### L IPASE, HCGQNT, HEPATIC, BMP, CBC #### [facility] [address] Lipase [Enzymatic activity/v olume] in Serum or PlasmaOrdered By: Jacky Alarcon on 03-10-2023 Lipase [Catalytic activity/Vol] 35.0 U/L 11.0-82.0 [facility] Lymphocytes Auto (Bld) [#/Vo l]Ordered By: Jacky Alarcon on 03-10-2023 Lymphocytes (Bld) [#/Vol] 1.9 10*3/uL 1.00-4.8 [facility] Lymphocytes/100 WBC Auto (Bl d)Ordered By: Jacky Alarcon on 03-10-2023 Lymphocytes/100 WBC (Bld) 11.6 % . [facility] MCH Auto (RBC) [Entitic mass ]Ordered By: Jacky Alarcon on 03-10-2023 MCH (RBC) [Entitic mass] 30.8 pg 24.7-34.3 [facility] MCHC Auto (RBC) [Mass/Vol]Or dered By: Jacky Alarcon on 03-10-2023 MCHC (RBC) [Mass/Vol] 35.0 g/dL 32.0-35.0 [facility] MCV Auto (RBC) [Entitic vol] Ordered By: Jacky Alarcon on 03-10-2023 MCV (RBC) [Entitic vol] 87.8 fL 80-100 [facility] Monocyte distribution width [Entitic volume] in Blood by AutomatedOrdered By: Jacky Alarcon on 03-10-2023 Monocyte distribution width Auto (Bld) [Entitic vol] 16.05 % 0.00-20.00 [facility] Monocytes Auto (Bld) [#/Vol] Ordered By: Jacky Alarcon on 03-10-2023 Monocytes (Bld) [#/Vol] 1.4 10*3/uL 0.0-0.8 [facility] Monocytes/100 WBC Auto (Bld) Ordered By: Jacky Alarcon on 03-10-2023 Monocytes/100 WBC (Bld) 8.8 % . [facility] Neutrophils Auto (Bld) [#/Vo l]Ordered By: Jacky Alarcon on 03-10-2023 Neutrophils (Bld) [#/Vol] 12.6 10*3/uL 1.8-7.7 [facility] Neutrophils/100 WBC Auto (Bl d)Ordered By: Jacky Alarcon on 03-10-2023 Neutrophils/100 WBC (Bld) 78.7 % . [facility] Nitrite Test strip Ql (U)Ord ered By: Jacky Alarcon on 03-10-2023 Nitrite Ql (U) Negative Negative [facility] No Panel InformationOrdered By: Jacky Alarcon on 03-10-2023 Estimated GFR (CKD-EPI) > 60.0 mL/Min [facility] Creatinine Clearance (Chem 148.58 [facility] Nucleated erythrocytes [Pres ence] in Blood by Automated countOrdered By: Jacky Alarcon on 03-10-2023 Nucleated RBC Auto Ql (Bld) 0.1 /100{WBC} 0-0.5 [facility] Platelet mean volume Auto (B ld) [Entitic vol]Ordered By: Jacky Alarcon on 03-10-2023 Platelet mean volume (Bld) [Entitic vol] 9.7 fL 6.3-10.7 [facility] Platelets Auto (Bld) [#/Vol] Ordered By: Jacky Alarcon on 03-10-2023 Platelets (Bld) [#/Vol] 263 10*3/uL 150-450 [facility] Potassium [Moles/volume] in Serum or PlasmaOrdered By: Jacky Alarcon on 03-10-2023 Potassium [Moles/Vol] 3.3 mmol/L 3.5-5.1 [facility] Protein Auto test strip (U) [Mass/Vol]Ordered By: Jacky Alarcon on 03-10-2023 Protein (U) [Mass/Vol] 100 mg/dL Negative [facility] Protein [Mass/volume] in Ser um or PlasmaOrdered By: Jacky Alarcon on 03-10-2023 Protein [Mass/Vol] 8.0 g/dL 6.4-8.9 [facility] RBC Auto (Bld) [#/Vol]Ordere d By: Jacky Alarcon on 03-10-2023 RBC (Bld) [#/Vol] 5.37 10*6/uL 3.60-5.00 [facility] Serum or plasma albumin/glob ulin mass ratioOrdered By: Jacky Alarcon on 03-10-2023 Albumin/Globulin [Mass ratio] 1.3 {ratio} [facility] Serum or plasma anion gap de terminationOrdered By: Jacky Alarcon on 03-10-2023 Anion gap [Moles/Vol] 16.5 mmol/L 6.0-15.[address] [facility] Serum or plasma non-glucuron idated bilirubin measurement (mass/volume)Ordered By: Jacky Alarcon on 03-10-2023 Bilirubin.indirect [Mass/Vol] 0.8 mg/dL [facility] Sodium [Moles/volume] in Ser um or PlasmaOrdered By: Jacky Alarcon on 03-10-2023 Sodium [Moles/Vol] 133 mmol/L 136-145 [facility] Specific gravity Auto test s trip (U) [Rel density]Ordered By: Jacky Alarcon on 03-10-2023 Specific gravity (U) [Rel density] 1.029 1.001-1.03 0 [facility] Squamous epithelial cells de tection in urine sediment by light microscopyOrdered By: Jacky Alarcon on 03-10-2023 Epithelial cells.squamous LM Ql (Urine sed) 1-2 [HPF] 0-2 [facility] Urea nitrogen [Mass/volume] in Serum or PlasmaOrdered By: Jacky Alarcon on 03-10-2023 Urea nitrogen [Mass/Vol] 6 mg/dL 7-25 [facility] Urine Cultureon 03-10-2023 Bacteria identified Cx Nom (U) >100,000 colonies/ml mixed bacterial skin contaminants 2 Days PERFORMED BY: [facility] [address] [place] [address] PATHOLOGIST W[employer] ANDRÉS MACEDO M.D. Normal [facility] Comment on above: Performed By: #### A JOHN BACON #### [facility] [address] [place] [id number] [facility] Urine bacteria detection by automated methodOrdered By: Jacky Alarcon on 03-10-2023 Bacteria Auto Ql (U) Rare None Seen [facility] Urine clarity by refractomet ry automatedOrdered By: Jacky Alarcon on 03-10-2023 Clarity Refractometry automated (U) Turbid Clear [facility] Urine glucose measurement by automated test strip (mass/volume)Ordered By: Jacky Alarcon on 03-10-2023 Glucose Auto test strip (U) [Mass/Vol] Normal mg/dL Normal [facility] Urine hemoglobin detection b y automated test stripOrdered By: Jacky Alarcon on 03-10-2023 Hemoglobin Auto test strip Ql (U) 3+ Negative [facility] Urine leukocyte esterase det ection by automated test stripOrdered By: Jacky Alarcon on 03-10-2023 Leukocyte esterase Auto test strip Ql (U) 1+ Negative [facility] Urine sediment crystal ident ification by light microscopyOrdered By: Jacky Alarcon on 03-10-2023 Crystals LM Nom (Urine sed) See comment [facility] Comment on above: sulfa crystals Urobilinogen Auto test strip (U) [Mass/Vol]Ordered By: Jacky Alarcon on 03-10-2023 Urobilinogen (U) [Mass/Vol] Normal mg/dL Normal [facility] WBC Auto (Bld) [#/Vol]Ordere d By: Jacky Alarcon on 03-10-2023 WBC (Bld) [#/Vol] 16.0 10*3/uL 3.8-11.6 [facility] pH Auto test strip (U)Ordere d By: Jacky Alarcon on 03-10-2023 pH (U) 6.5 [pH] 5.0-9.0 [facility] CBC AUTO DIFFon 07-30-2022 BASO # 0.1 103/ul Normal 0.0-0.1 [facility] Comment on above: Performed By: #### G TT3P #### [facility] [address] [place], [place] [address] Dr. Jackelyn Celestin Basophils/100 WBC (Bld) 0.6 % Normal 0.2-2.0 [facility] Comment on above: Performed By: #### G TT3P #### [facility] [address] [place] [address] Dr. Jackelyn Celestin EO # 0.2 103/ul Normal 0.0-0.7 [facility] Comment on above: Performed By: #### G TT3P #### [facility] [address] [place] [address] Dr. Jackelyn Celestin Eosinophils/100 WBC (Bld) 1.5 % Normal 0.9-7.0 [facility] Comment on above: Performed By: #### G TT3P #### [facility] [address] [place] [address] Dr. Jackelyn Celestin Erythrocyte distribution width (RBC) [Ratio] 14.5 % Normal 11.0-15.0 [facility] Comment on above: Performed By: #### G TT3P #### [facility] [address] [place] [address] Dr. Jackelyn Celestin Hematocrit (Bld) [Volume fraction] 33.9 % Critically low 36.0-48.0 [facility] Comment on above: Performed By: #### G TT3P #### [facility] [address] [place] [address] Dr. Jackelyn Celestin Hemoglobin (Bld) [Mass/Vol] 11.0 g/dL Critically low 12.0-16.0 [facility] Comment on above: Performed By: #### G TT3P #### [facility] [address] [place] [address] Dr. Jackelyn Celestin IG # 0.13 10e3/ul Critically high 0.00-0.03 [facility] Comment on above: Performed By: #### G TT3P #### [facility] [address] [place] [address] Dr. Jackelyn Celestin IG % 1.1 % Critically high 0.0-0.5 [facility] Comment on above: Performed By: #### G TT3P #### [facility] [address] [place] [address] Dr. Jackelyn Celestin LYMPH # 2.2 103/ul Normal 1.2-3.8 [facility] Comment on above: Performed By: #### G TT3P #### [facility] [address] [place] [address] Dr. Jackelyn Celestin Lymphocytes/100 WBC (Bld) 17.9 % Critically low 20.5-60.0 [facility] Comment on above: Performed By: #### G TT3P #### [facility] [address] [place] [address] Dr. Jackelyn Celestin MANUAL DIFF REQ NO Normal [facility] Comment on above: Performed By: #### G TT3P #### [facility] [address] [place] [address] Dr. Jackelyn Celestin MCH (RBC) [Entitic mass] 28.6 pg Normal 26.7-34.0 [facility] Comment on above: Performed By: #### G TT3P #### [facility] [address] [place] [address] Dr. Jackelyn Celestin MCHC (RBC) [Mass/Vol] 32.4 g/dL Normal 29.9-35.2 [facility] Comment on above: Performed By: #### G TT3P #### [facility] [address] [place] [address] Dr. Jackelyn Celestin MCV (RBC) [Entitic vol] 88.1 fL Normal 81.0-99.0 [facility] Comment on above: Performed By: #### G TT3P #### [facility] [address] [place] [address] Dr. Jackelyn Celestin MONO # 0.8 103/ul Normal 0.3-0.8 [facility] Comment on above: Performed By: #### G TT3P #### [facility] [address] [place] [address] Dr. Jackelyn Celestin Monocytes/100 WBC (Bld) 6.9 % Normal 1.7-12.0 [facility] Comment on above: Performed By: #### G TT3P #### [facility] [address] [place] [address] Dr. Jackelyn Celestin NEUT # 8.7 103/ul Critically high 1.4-6.5 [facility] Comment on above: Performed By: #### G TT3P #### [facility] [address] [place] [address] Dr. Jackelyn Celestin Neutrophils/100 WBC (Bld) 72.0 % Normal 43.0-75.0 [facility] Comment on above: Performed By: #### G TT3P #### [facility] [address] [place] [address] Dr. Jackelyn Celestin Platelet mean volume (Bld) [Entitic vol] 11.5 fL Normal 9.5-13.5 [facility] Comment on above: Performed By: #### G TT3P #### [facility] [address] [place] [address] Dr. Jackelyn Celestin PLT 146 103/ul Critically low 150-450 [facility] Comment on above: Performed By: #### G TT3P #### [facility] [address] [place] [address] Dr. Jackelyn Celestin RBC 3.85 106/ul Critically low 4.20-5.40 [facility] Comment on above: Performed By: #### G TT3P #### [facility] [address] [place] [address] Dr. Jackelyn Celestin WBC 12.1 103/ul Critically high 4.0-11.0 [facility] Comment on above: Performed By: #### G TT3P #### [facility] [address] [place] [address] Dr. Jackelyn Celestin CBC AUTO DIFFon 07-29-2022 BASO # 0.0 103/ul Normal 0.0-0.1 [facility] Comment on above: Performed By: #### [id number] #### [facility] [address] [place] [address] Dr. Jackelyn Celestin Basophils/100 WBC (Bld) 0.4 % Normal 0.2-2.0 [facility] Comment on above: Performed By: #### 4 [id number] #### [facility] [address] [place] [address] Dr. Jackelyn Celestin EO # 0.2 103/ul Normal 0.0-0.7 [facility] Comment on above: Performed By: #### 4 [id number] #### [facility] [address] [place] [address] Dr. Jackelyn Celestin Eosinophils/100 WBC (Bld) 1.4 % Normal 0.9-7.0 [facility] Comment on above: Performed By: #### 4 [id number] #### [facility] [address] [place] [address] Dr. Jackelyn Celestin Erythrocyte distribution width (RBC) [Ratio] 14.1 % Normal 11.0-15.0 [facility] Comment on above: Performed By: #### 4 [id number] #### [facility] [address] [place] [address] Dr. Jackelyn Celestin Hematocrit (Bld) [Volume fraction] 36.0 % Normal 36.0-48.0 [facility] Comment on above: Performed By: #### 4 [id number] #### [facility] [address] [place] [address] Dr. Jackelyn Celestin Hemoglobin (Bld) [Mass/Vol] 12.2 g/dL Normal 12.0-16.0 [facility] Comment on above: Performed By: #### 4 [id number] #### [facility] [address] [place] [address] Dr. Jackelyn Celestin IG # 0.10 10e3/ul Critically high 0.00-0.03 [facility] Comment on above: Performed By: #### 4 [id number] #### [facility] [address] [place] [address] Dr. Jackelyn Celestin IG % 0.9 % Critically high 0.0-0.5 [facility] Comment on above: Performed By: #### 4 [id number] #### [facility] [address] [place] [address] Dr. Jackelyn Celestin LYMPH # 1.9 103/ul Normal 1.2-3.8 [facility] Comment on above: Performed By: #### 4 [id number] #### [facility] [address] [place] [address] Dr. Jackelyn Celestin Lymphocytes/100 WBC (Bld) 17.7 % Critically low 20.5-60.0 [facility] Comment on above: Performed By: #### 4 [id number] #### [facility] [address] [place] [address] Dr. Jackelyn Celestin MANUAL DIFF REQ NO Normal [facility] Comment on above: Performed By: #### 4 [id number] #### [facility] [address] [place] [address] Dr. Jackelyn Celestin MCH (RBC) [Entitic mass] 28.8 pg Normal 26.7-34.0 [facility] Comment on above: Performed By: #### 4 [id number] #### [facility] [address] [place] [address] Dr. Jackelyn Celestin MCHC (RBC) [Mass/Vol] 33.9 g/dL Normal 29.9-35.2 [facility] Comment on above: Performed By: #### 4 [id number] #### [facility] [address] [place] [address] Dr. Jackelyn Celestin MCV (RBC) [Entitic vol] 84.9 fL Normal 81.0-99.0 [facility] Comment on above: Performed By: #### 4 [id number] #### [facility] [address] [place] [address] Dr. Jackelyn Celestin MONO # 0.9 103/ul Critically high 0.3-0.8 [facility] Comment on above: Performed By: #### 4 [id number] #### [facility] [address] [place] [address] Dr. Jackelyn Celestin Monocytes/100 WBC (Bld) 8.4 % Normal 1.7-12.0 [facility] Comment on above: Performed By: #### 4 [id number] #### [facility] [address] [place] [address] Dr. Jackelyn Celestin NEUT # 7.7 103/ul Critically high 1.4-6.5 [facility] Comment on above: Performed By: #### 4 [id number] #### [facility] [address] [place] [address] Dr. Jackelyn Celestin Neutrophils/100 WBC (Bld) 71.2 % Normal 43.0-75.0 [facility] Comment on above: Performed By: #### 4 [id number] #### [facility] [address] [place] [address] Dr. Jackelyn Celestin Platelet mean volume (Bld) [Entitic vol] 10.9 fL Normal 9.5-13.5 [facility] Comment on above: Performed By: #### 4 [id number] #### [facility] [address] [place] [address] Dr. Jackelyn Celestin PLT 170 103/ul Normal 150-450 [facility] Comment on above: Performed By: #### 4 [id number] #### [facility] [address] [place] [address] Dr. Jackelyn Celestin RBC 4.24 106/ul Normal 4.20-5.40 [facility] Comment on above: Performed By: #### 4 [id number] #### [facility] [address] [place] [address] Dr. Jackelyn Celestin WBC 10.8 103/ul Normal 4.0-11.0 [facility] Comment on above: Performed By: #### [id number] #### [facility] [address] [place] [address] Dr. Jackelyn Celestin DRUG SCREEN RAPID (URINE)on 07-29-2022 AMP Negative Normal NEGATIVE [facility] Comment on above: Performed By: #### 4 [id number] #### [facility] [address] [place] [address] Dr. Jackelyn Celestin BAR Negative Normal NEGATIVE [facility] Comment on above: Performed By: #### 4 [id number] #### [facility] [address] [place] [address] Dr. Jackelyn Celestin BUP Negative Normal NEGATIVE [facility] Comment on above: Performed By: #### 4 [id number] #### [facility] [address] [place] [address] Dr. Jackelyn Celestin BZO Negative Normal NEGATIVE [facility] Comment on above: Performed By: #### 4 [id number] #### [facility] [address] [place], [place] [id number] Dr. Jackelyn Celestin HOMERO Negative Normal NEGATIVE [facility] Comment on above: Performed By: #### 4 [id number] #### [facility] [address] [place] [address] Dr. Jackelyn Celestin CUT-OFFS SEE BELOW Normal [facility] Comment on above: Result Comment: AMP (Amphetamine): 500ng/mL, BAR (Barbituates): 200 ng/mL, BZO (Benzodiazepines): 150 ng/mL, BUP (Buprenorphine): 10 ng/mL, HOMERO (Cocaine): 150 ng/mL, mAMP (Methamphetamine): 500 ng/mL, MTD (Methadone): 200 ng/mL, OPI (Opiates): 100 ng/mL, OXY (Oxycodone): 100 ng/mL, PCP (Phencyclidine): 25 ng/mL, PPX (Propoxyphene): 300 ng/mL, THC (Cannabinoids): 50 ng/mL, TCA (Trycyclic Antidepressants): 300 ng/mL Performed By: #### [id number] #### [facility] [address] [place] [address] Dr. Jackelyn Celestin DRUG CUT HEADER DRUG CLASS TEST SYST EM CUT-OFF CONCENTRATIONS ARE FOLLOWS: Normal [facility] Comment on above: Performed By: #### [id number] #### [facility] [address] [place] [address] Dr. Jackelyn Celestin mAMP Negative Normal NEGATIVE [facility] Comment on above: Performed By: #### 4 [id number] #### [facility] [address] [place] [address] Dr. Jackelyn Celestin MTD Negative Normal NEGATIVE [facility] Comment on above: Performed By: #### 4 [id number] #### [facility] [address] [place] [address] Dr. Jackelyn Celestin OPI Negative Normal NEGATIVE [facility] Comment on above: Performed By: #### 4 [id number] #### [facility] [address] [place] [address] Dr. Jackelyn Celestin OXY Negative Normal NEGATIVE [facility] Comment on above: Performed By: #### 4 [id number] #### [facility] [address] [place] [address] Dr. Jackelyn Celestin PCP Negative Normal NEGATIVE [facility] Comment on above: Performed By: #### 4 [id number] #### [facility] [address] [place] [address] Dr. Jackelyn Celestin PPX Negative Normal NEGATIVE [facility] Comment on above: Performed By: #### 4 [id number] #### [facility] [address] [place] [address] Dr. Jackelyn Celestin TCA Negative Normal NEGATIVE [facility] Comment on above: Performed By: #### 4 [id number] #### [facility] [address] [place] [address] Dr. Jackelyn Celestin THC Negative Normal NEGATIVE [facility] Comment on above: Performed By: #### 4 [id number] #### [facility] [address] [place] [address] Dr. Jackelyn Celestin TYPE AND SCREENon 07-29-2022 TYPE AND SCREEN Negative Normal [facility] Comment on above: Performed By: #### G TT3P #### [facility] [address] [place] [address] Dr. Jackelyn Celestin US PREG GROWTHon 07-25-2022 [...] TRISTAN HART Date: 2022-07-24 22:37 Normal [facility] GROUP B STREP CULTUREon 06-09 S. agalactiae Ag Ql (Unsp spec) Culture Observations: NEGATIVE FOR GROUP B STREPTOCOCCUS. Normal [facility] Comment on above: Performed By: #### G TT3P #### [facility] [address] [place] [address] [address] Jackelyn Celestin US PREG GROWTHon 06-06-2022 [...] TRISTAN HART Date: 2022-06-06 15:39 Normal [facility] GTT 3 HR PREGon 05-21-2022 Glucose [Mass/Vol] 91 mg/dL Normal 74-106 [facility] Comment on above: Performed By: #### G TT3P #### [facility] [address] [place] [address] [address] Jackelyn Celestin Glucose [Mass/Vol] 168 mg/dL Normal [facility] Comment on above: Performed By: #### G TT3P #### [facility] [address] [place] [address] [address] Jackelyn Celestin Glucose [Mass/Vol] 121 mg/dL Normal [facility] Comment on above: Performed By: #### G TT3P #### [facility] [address] [place] [address] Dr. Jackelyn Celestin Glucose [Mass/Vol] 86 mg/dL Normal [facility] Comment on above: Performed By: #### G TT3P #### [facility] [address] [place] [address] Dr. Jackelyn Celestin PAP ACOG PANEL 2: 21 to 29on 05-17-2022 . . Normal [facility] Comment on above: Performed By: #### [id number] #### [facility] [address] [place] [address] Dr. Jackelyn Celestin DIAGNOSIS: Comment [facility] Comment on above: Result Comment: NEGA TIVE FOR INTRAEPITHELIAL LESION OR MALIGNANCY. Performed By: #### [id number] #### [facility] [address] [place] [address] Dr. Jackelyn Celestin Methodology: Comment [facility] Comment on above: Result Comment: This liquid based ThinPrep(R) pap test was screened with the use of an image guided system. Performed By: #### 4 [id number] #### [facility] [address] [place] [address] Dr. Jackelyn Celestin Note: Comment [facility] Comment on above: Result Comment: The Pap smear is a screening test designed to aid in the detection of premalignant and malignant conditions of the uterine cervix. It is not a diagnostic procedure and should not be used as the sole means of detecting cervical cancer. Both false-positive and false-negative reports do occur. . Performed By: #### 4 [id number] #### [facility] [address] [place] [address] Dr. Jackelyn Celestin Performed by: Comment [facility] Comment on above: Result Comment: Alphonso Walker Application Coordinator (ASCP) Performed By: #### 4 [id number] #### [facility] [address] [place] [address] Dr. Jackelyn Celestin Reflex Criteria: Comment [facility] Comment on above: Result Comment: The HPV DNA reflex criteria were not met with this specimen result therefore, no HPV testing was performed. . Performed By: #### 4 [id number] #### [facility] [address] [place] [address] Dr. Jackelyn Celestin Specimen adequacy: Comment Normal [facility] Comment on above: Result Comment: Sati sfactory for evaluation. No endocervical component is identified. Performed By: #### 4 [id number] #### [facility] [address] [place] [address] Dr. Jackelyn Celestin Age Gdln ACOG Testing 21-29 Normal [facility] Comment on above: Performed By: #### 4 [id number] #### [facility] [address] [place] [address] Dr. Jackelyn Celestin CHLAMYDIA/GONOCOCCUS ALONDRA (SW AB/URINE/PAPon 05-14-2022 Chlamydia trachomatis, ALONDRA Negative Normal Negative [facility] Comment on above: Performed By: #### G TT3P #### [facility] [address] [place] [address] Dr. Jackelyn Celestin Neisseria gonorrhoeae, ALONDRA Negative Normal Negative [facility] Comment on above: Performed By: #### G TT3P #### [facility] [address] [place] [address] Dr. Jackelyn Celestin VAGINITIS/VAGINOSIS DNA PROB Dean 05-13-2022 Thao species Negative Normal Negative [facility] Comment on above: Performed By: #### 4 [id number] #### [facility] [address] [place] [address] Dr. Jackelyn Celestin Gardnerella vaginalis Negative Normal Negative [facility] Comment on above: Performed By: #### 4 [id number] #### [facility] [address] [place] [address] Dr. Jackelyn Celestin Trichomonas vaginalis Negative Normal Negative [facility] Comment on above: Performed By: #### 4 [id number] #### [facility] [address] [place] [address] Dr. Jackelyn Celestin CBC AUTO DIFFon 05-09-2022 BASO # 0.0 103/ul Normal 0.0-0.1 [facility] Comment on above: Performed By: #### C BC #### [facility] [address] [address] [address] Jackelyn Celestin Basophils/100 WBC (Bld) 0.3 % Normal 0.2-2.0 [facility] Comment on above: Performed By: #### C BC #### [facility] [address] [address] [address] Jackelyn Celestin EO # 0.1 103/ul Normal 0.0-0.7 [facility] Comment on above: Performed By: #### C BC #### [facility] [address] [address] [address] Jackelyn Celestin Eosinophils/100 WBC (Bld) 1.2 % Normal 0.9-7.0 [facility] Comment on above: Performed By: #### C BC #### [facility] [address] [place] [address] Dr. Jackelyn Celestin Erythrocyte distribution width (RBC) [Ratio] 11.9 % Normal 11.0-15.0 [facility] Comment on above: Performed By: #### C BC #### [facility] [address] [place] [address] Dr. Jackelyn Celestin Hematocrit (Bld) [Volume fraction] 33.7 % Critically low 36.0-48.0 [facility] Comment on above: Performed By: #### C BC #### [facility] [address] [place] [address] Dr. Jackelyn Celestin Hemoglobin (Bld) [Mass/Vol] 12.0 g/dL Normal 12.0-16.0 [facility] Comment on above: Performed By: #### C BC #### [facility] [address] [place] [address] Dr. Jackelyn Celestin IG # 0.07 10e3/ul Critically high 0.00-0.03 [facility] Comment on above: Performed By: #### C BC #### [facility] [address] [place] [address] Dr. Jackelyn Celestin IG % 0.6 % Critically high 0.0-0.5 [facility] Comment on above: Performed By: #### C BC #### [facility] [address] [place] [address] Dr. Jackelyn Celestin LYMPH # 1.3 103/ul Normal 1.2-3.8 [facility] Comment on above: Performed By: #### C BC #### [facility] [address] [place] [address] Dr. Jackelyn Celestin Lymphocytes/100 WBC (Bld) 11.5 % Critically low 20.5-60.0 [facility] Comment on above: Performed By: #### C BC #### [facility] [address] [place] [address] Dr. Jackelyn Celestin MANUAL DIFF REQ NO Normal [facility] Comment on above: Performed By: #### C BC #### [facility] [address] [place] [address] Dr. Jackelyn Celestin MCH (RBC) [Entitic mass] 31.0 pg Normal 26.7-34.0 [facility] Comment on above: Performed By: #### C BC #### [facility] [address] [place] [address] Dr. Jackelyn Celestin MCHC (RBC) [Mass/Vol] 35.6 g/dL Critically high 29.9-35.2 [facility] Comment on above: Performed By: #### C BC #### [facility] [address] [place] [address] Dr. Jackelyn Celestin MCV (RBC) [Entitic vol] 87.1 fL Normal 81.0-99.0 [facility] Comment on above: Performed By: #### C BC #### [facility] [address] [place] [address] Dr. Jackelyn Celestin MONO # 0.5 103/ul Normal 0.3-0.8 [facility] Comment on above: Performed By: #### C BC #### [facility] [address] [place] [address] Dr. Jackelyn Celestin Monocytes/100 WBC (Bld) 4.8 % Normal 1.7-12.0 [facility] Comment on above: Performed By: #### C BC #### [facility] [address] [place] [address] Dr. Jackelyn Celestin NEUT # 8.9 103/ul Critically high 1.4-6.5 [facility] Comment on above: Performed By: #### C BC #### [facility] [address] [place] [address] Dr. Jackelyn Celestin Neutrophils/100 WBC (Bld) 81.6 % Critically high 43.0-75.0 [facility] Comment on above: Performed By: #### C BC #### [facility] [address] [place] [address] Dr. Jackelyn Celestin Platelet mean volume (Bld) [Entitic vol] 11.3 fL Normal 9.5-13.5 [facility] Comment on above: Performed By: #### C BC #### [facility] [address] [place] [address] Dr. Jackelyn Celestin PLT 171 103/ul Normal 150-450 [facility] Comment on above: Performed By: #### C BC #### [facility] [address] [place] [address] Dr. Jackelyn Celestin RBC 3.87 106/ul Critically low 4.20-5.40 [facility] Comment on above: Performed By: #### C BC #### [facility] [address] [place] [address] Dr. Jackelyn Celestin WBC 10.9 103/ul Normal 4.0-11.0 [facility] Comment on above: Performed By: #### C BC #### [facility] [address] [place] [address] Dr. Jackelyn Celestin GLUCOSE - 1HRon 05-09-2022 Glucose [Mass/Vol] 142 mg/dL Critically high 74-106 [facility] Comment on above: Performed By: #### 4 [id number] #### [facility] [address] [place] [address] Dr. Jackelyn Celestin US PREG BIOPHY W [...] by: TRISTAN HART Date: 2022-05-09 10:35 Normal [facility] US PREG PLACENTAon US PREG PLACENTA EXAMINATION: US PREG PLACENTA HISTORY: Falls ; mild cramping after falling COMPARISON: Ultrasound anatomy 03/17/2022 FINDINGS: PLACENTA: Posterior without previa, subchorionic hematoma, or abruption. CERVIX LENGTH: Not evaluated. HEART RATE: 158 bpm OTHER: None. IMPRESSION: 1. Unremarkable posterior placenta. No suspicious findings. Electronically authenticated by: TRISTAN HART Date: 2022-05-09 10:29 Normal [facility] US PREG ANATOMY SINGLEon US PREG ANATOMY [...] TRISTAN HART Date: 2022-03-17 16:29 Normal [facility] HEP B SURFACE ANTIGEN SCREEN on 02-15-2022 HBsAg Screen Negative Normal Negative [facility] Comment on above: Performed By: #### 4 [id number] #### [facility] [address] [address] [address] Jackelyn Celestin HEPATITIS C VIRUS AB W/ REFL EX QUANTon 02-15-2022 HCV AB <0.1 Normal 0.0-0.9 [facility] Comment on above: Performed By: #### H CVPCRR #### [facility] [address] [place] [address] Dr. Jackelyn Celestin Interpretation: Comment Normal [facility] Comment on above: Result Comment: Nega tive Not infected with HCV, unless recent infection is suspected or other evidence exists to indicate HCV infection. Performed By: #### H CVPCRR #### [facility] [address] [address] [address] Jackelyn Celestin HIV 1 AND 2 WITH REFLEXon HIV Screen 4th Generation wRfx Non-Reactive Normal Non Reactive [facility] Comment on above: Result Comment: HIV Negative HIV-1/HIV-2 antibodies and HIV-1 p24 antigen were NOT detected. There is no laboratory evidence of HIV infection. Performed By: #### H IV12 #### [facility] [address] [place] [address] Dr. Jackelyn Celestin RPR QUANTon 02-15-2022 Rapid Plasma Reagin, Quant Non-Reactive Normal NonRea<1:1 [facility] Comment on above: Result Comment: Plea Note: This test does not meet current guidelines for screening and diagnosis of syphilis. This test is intended for following treatment response in patients being treated for syphilis infection. To screen for syphilis infection, a reflex cascade that includes both RPR and a treponema-specific assay should be utilized, such as Treponema pallidum (Syphilis) Screening [facility] (150549) or Rapid Plasma Reagin (RPR) Test With Reflex to Quantitative RPR and Confirmatory Treponema pallidum Antibodies (978822). Performed By: #### R PRQ #### [facility] [address] [place] [address] Dr. Jackelyn Celestin RUBELLA AB IGGon 02-15-2022 Rubella Antibodies, IgG 1.97 index Normal Immune >0.99 [facility] Comment on above: Result Comment: Non- immune <0.90 Equivocal 0.90 - 0.99 Immune >0.99 Performed By: #### R UBIGG #### [facility] [address] [place] [address] Dr. Jackelyn Celestin CBC AUTO DIFFon 02-12-2022 BASO # 0.0 103/ul Normal 0.0-0.1 [facility] Comment on above: Performed By: #### C BC #### [facility] [address] [place] [address] Dr. Jackelyn Celestin Basophils/100 WBC (Bld) 0.4 % Normal 0.2-2.0 [facility] Comment on above: Performed By: #### C BC #### [facility] [address] [place] [address] Dr. Jackelyn Celestin EO # 0.2 103/ul Normal 0.0-0.7 [facility] Comment on above: Performed By: #### C BC #### [facility] [address] [place] [address] Dr. Jackelyn Celestin Eosinophils/100 WBC (Bld) 2.0 % Normal 0.9-7.0 [facility] Comment on above: Performed By: #### C BC #### [facility] [address] [place] [address] Dr. Jackelyn Celestin Erythrocyte distribution width (RBC) [Ratio] 12.8 % Normal 11.0-15.0 [facility] Comment on above: Performed By: #### C BC #### [facility] [address] [place] [address] Dr. Jackelyn Celestin Hematocrit (Bld) [Volume fraction] 40.7 % Normal 36.0-48.0 [facility] Comment on above: Performed By: #### C BC #### [facility] [address] [place] [address] Dr. Jackelyn Celestin Hemoglobin (Bld) [Mass/Vol] 14.4 g/dL Normal 12.0-16.0 [facility] Comment on above: Performed By: #### C BC #### [facility] [address] [address] [address] Jackelyn Celestin IG # 0.05 10e3/ul Critically high 0.00-0.03 [facility] Comment on above: Performed By: #### C BC #### [facility] [address] [place] [address] Dr. Jackelyn Celestin IG % 0.4 % Normal 0.0-0.5 [facility] Comment on above: Performed By: #### C BC #### [facility] [address] [place] [address] Dr. Jackelyn Celestin LYMPH # 1.7 103/ul Normal 1.2-3.8 [facility] Comment on above: Performed By: #### C BC #### [facility] [address] [place] [address] Dr. Jackelyn Celestin Lymphocytes/100 WBC (Bld) 15.1 % Critically low 20.5-60.0 [facility] Comment on above: Performed By: #### C BC #### [facility] [address] [place] [address] Dr. Jackelyn Celestin MANUAL DIFF REQ NO Normal [facility] Comment on above: Performed By: #### C BC #### [facility] [address] [place] [address] Dr. Jackelyn Celestin MCH (RBC) [Entitic mass] 31.2 pg Normal 26.7-34.0 [facility] Comment on above: Performed By: #### C BC #### [facility] [address] [place] [address] Dr. Jackelyn Celestin MCHC (RBC) [Mass/Vol] 35.4 g/dL Critically high 29.9-35.2 [facility] Comment on above: Performed By: #### C BC #### [facility] [address] [address] [address] Jackelyn Celestin MCV (RBC) [Entitic vol] 88.1 fL Normal 81.0-99.0 [facility] Comment on above: Performed By: #### C BC #### [facility] [address] [address] [address] Jackelyn Celestin MONO # 0.4 103/ul Normal 0.3-0.8 [facility] Comment on above: Performed By: #### C BC #### [facility] [address] [address] [address] Jackelyn Celestin Monocytes/100 WBC (Bld) 3.3 % Normal 1.7-12.0 [facility] Comment on above: Performed By: #### C BC #### [facility] [address] [place] [address] Dr. Jackelyn Celestin NEUT # 8.8 103/ul Critically high 1.4-6.5 [facility] Comment on above: Performed By: #### C BC #### [facility] [address] [place] [address] Dr. Jackelyn Celestin Neutrophils/100 WBC (Bld) 78.8 % Critically high 43.0-75.0 [facility] Comment on above: Performed By: #### C BC #### [facility] [address] [place] [address] Dr. Jackelyn Celestin Platelet mean volume (Bld) [Entitic vol] 11.6 fL Normal 9.5-13.5 [facility] Comment on above: Performed By: #### C BC #### [facility] [address] [place] [address] Dr. Jackelyn Celestin PLT 203 103/ul Normal 150-450 [facility] Comment on above: Performed By: #### C BC #### [facility] [address] [place] [address] Dr. Jackelyn Celestin RBC 4.62 106/ul Normal 4.20-5.40 [facility] Comment on above: Performed By: #### C BC #### [facility] [address] [place] [address] Dr. Jackelyn Celestin WBC 11.2 103/ul Critically high 4.0-11.0 [facility] Comment on above: Performed By: #### C BC #### [facility] [address] [place] [address] Dr. Jackelyn Celestin CULTURE URINEon 02-12-2022 CULTURE URINE Culture Observations : NO GROWTH. Normal [facility] Comment on above: Performed By: #### U RCX #### [facility] [address] [place] [address] Dr. Jackelyn Celestin GLYCOHEMOGLOBIN A1Con 2021 ADA RECOMMENDATION SEE BELOW Normal [facility] Comment on above: Result Comment: ADA RECOMMENDED LIMIT 4.0 - 6.0 ADA THERAPEUTIC TARGET < 7.0 ACTION SUGGESTED > 7.0 Performed By: #### 4 [id number] #### [facility] [address] [place] [address] Dr. Jackelyn Celestin Glucose [Mass/Vol] 94 mg/dL Normal [facility] Comment on above: Performed By: #### 4 [id number] #### [facility] [address] [place] [address] Dr. Jackelyn Celestin HbA1c (Bld) [Mass fraction] 4.9 % Normal 4.5-6.2 [facility] Comment on above: Performed By: #### 4 [id number] #### [facility] [address] [place] [address] Dr. Jackelyn Celestin TYPE AND SCREENon 02-12-2022 TYPE AND SCREEN Negative Normal [facility] Comment on above: Performed By: #### T NS #### [facility] [address] [place] [address] Dr. Jackelyn Celestin US PREG TVon 01-21-2022 [...] by: DONALD AGUILAR Date: 2022-01-21 16:41 Normal [facility] Coding Summary.on 12-12-2019 Coding Summary. CODING DATE: 020 FINAL [facility] STATUS: Home (Routine DC) PAYOR: Self Pay [...] CphT Date Saved: 12/12/2019 10:[address] [facility] Family Medicine Office/Clini c Noteon 11-21-2019 [...] day(s), # 20 tab(s), Refills(s) 0, Pharmacy: [facility], 159, cm, 11/21/19 19:13:00 EDT, Height/Length Dosing, 96, kg, 11/21/19 19:13:00 EDT, Weight Dosing Follow-up No qualifying data available Patient Education Body Mass Index, BMI DASH Diet MyPlate from [employer] Obesity Otitis Media, Adult Problem List/Past Medical [...] cancer: Grandparent. Hypertension: Grandparent. Stroke: Grandparent. Normal [facility] Comment on above: Result Comment: Elec [...] Document Reviewed: 01/04/2006 ExitCare? Patient Information ?2013 [facility]. DASH Diet The DASH diet stands [...] beef, chicken breast, turkey breast. All fish. Empire, bake, or broil your meat. Nothing should [...] Document Reviewed: 03/15/2012 ExitCare? Patient Information ?2013 [employer]. [employer] The amount you need to eat from each food group depends on your age, sex, and level of physical activity. To find the amounts that are right for you, go to ChooseMyVastari.gov. Tips: ? Enjoy your food, but eat [...] Document Reviewed: 06/16/2008 ExitCare? Patient Information ?2013 [facility]. [facility] Obesity Obesity is defined as having too [...] Document Reviewed: 05/02/2012 ExitCare? Patient Information ?2013 [employer]. Otitis Media, Adult A middle ear infection [...] the first few days. ? Only take hpey-nle-gohpwis or prescription medicines for pain, discomfort, or [...] Document Reviewed: 10/31/2008 ExitCare? Patient Information ?[address] [employer] [facility] SARS-CoV-2, NAAon 11-20-2019 SARS CORONAVIRUS 2 RNA:PRTHR:PT:RESPIRATO RY:ORD:PROBE.AMP.TAR Not Detected Not Detected [facility] Comment on above: Result Comment: This test was developed and its performance characteristics determined by [employer] This test has not been FDA cleared [...] detected) result in this assay. Performed at: [facility] [address] [facility] [place] [id number] MD Malaika Velez Performed By: #### S ARS-CoV-2, ALONDRA #### [facility] [address] [place] [id number] [facility] Medicine Video Visit - Telehealthon 11-16-2019 Family [...] interactive video communications from my office using [employer] due to the restrictions of the COVID-19 pandemic. No physical exam was conducted other than those areas of the body visible to telecommunications with the patient located at [address] [phone], with no one else in attendance. If [...] cancer: Grandparent. Hypertension: Grandparent. Stroke: Grandparent. Normal [facility] Comment on above: Result Comment: Elec tronically Signed By: Abbey ESTRADA CNP.ynes\Date and Time Signed: 11/16/19 14:27 EDT URINE CULTUREon 07-10-2017 Urine culture, bacteria SPECIMEN DESCRIPTION URINE CLEAN CATCHUA DIPSTICK NITRITE NEGATIVE * Result Note: LEUKOCYTE NEGATIVE *CULTURE ESCHERICHIA COLI * Result Note: 50,000 C/C/ML * * Result Note: Testing performed at [place], [place] [address] *REPORT STATUS 07/10/2017 * Result Note: FINAL * O RGANISM ESCHERICHIA COLI * Result Note: ESCHERICHIA COLI *METHOD MICAMPICILLIN <=2 SUSCEPTIBLEAMPICILLIN/SULBA CTAM <=2 SUSCEPTIBLECEFTRIAXONE <=1 SUSCEPTIBLECEFAZOLIN <=4 SUSCEPTIBLEIMIPENEM <=0.25 SUSCEPTIBLEGENTAMICIN <=1 SUSCEPTIBLETRIMETH-SULFA <=20 SUSCEPTIBLEAMOXICILLIN/CLAV ULANIC A <=2 SUSCEPTIBLENITROFURANTOIN 32 SUSCEPTIBLEPIPERACILLIN/SADA OBACTAM <=4 SUSCEPTIBLELEVOFLOXACIN <=0.12 SUSCEPTIBLEESBL NEGATIVECEFTAZIDIME <=1 SUSCEPTIBLE Normal [facility] Comment on above: Performed By: #### A URNC ####Testing performed at [address] [id number] performed at [address] [address] CG,QUANTITATIVEon 07-08-19 18 CG,QUANTITATIVE 133.56 MIU/ML Normal [facility] Comment on above: Result Comment: [facility] INTERPRETIVE RANGES: NON FEMALE 0-6 MIU/MLMALE ADULT [...] of urine. Performed By: #### A CBC CG2 ####Testing performed at [address] [address] CBCon 07-07-2017 ABSOLUTE BAS 0.1 X10 Normal [facility] Comment on above: Performed By: #### A CBC, BHCG2 ####Testing performed at [place] [id number] ABSOLUTE EOS 0.20 X10 Normal [facility] Comment on above: Performed By: #### A CBC, BHCG2 ####Testing performed at [address] [place] [address] Basophils/100 WBC Auto (Bld) 0.6 % Normal 0.0-2.0 [facility] Comment on above: Performed By: #### A CBC, BHCG2 ####Testing performed at [address] [place] [address] DTYPE AUTO DIFF Normal [facility] Comment on above: Performed By: #### A CBC, BHCG2 ####Testing performed at [address] [address] Eosinophils/100 leukocytes 2.0 % Normal 0.0-11.0 [facility] Comment on above: Performed By: #### A CBC, BHCG2 ####Testing performed at [address] [address] Lymphocytes 2.00 X10 Normal [facility] Comment on above: Performed By: #### A CBC, BHCG2 ####Testing performed at [address] [address] Lymphocytes/100 leukocytes 23.0 % Normal 20.0-55.0 [facility] Comment on above: Performed By: #### A CBC, BHCG2 ####Testing performed at [address] [place] [address] Monocytes 0.6 X10 Normal [facility] Comment on above: Performed By: #### A CBC, BHCG2 ####Testing performed at [address] [place] [address] Monocytes/100 leukocytes 7.1 % Normal 0.0-10.0 [facility] Comment on above: Performed By: #### A CBC, BHCG2 ####Testing performed at [address] [place] [address] Neutrophils 5.9 x10 Normal 1.0-7.0 [facility] Comment on above: Performed By: #### A CBC, BHCG2 ####Testing performed at [address] [address] Neutrophils/100 leukocytes 67.3 % Normal 37.0-75.0 [facility] Comment on above: Performed By: #### A CBC BHCG2 ####Testing performed at [address] [address] Erythrocyte distribution width Auto Ratio (RBC) 12.1 % Normal 11.5-14.5 [facility] Comment on above: Performed By: #### A CBC BHCG2 ####Testing performed at [place] [id number] Erythrocytes (RBC) 4.72 /cmm Normal 4.0-5.4 [facility] Comment on above: Performed By: #### A CBC BHCG2 ####Testing performed at [address] [address] Hematocrit (HCT) 43.2 % Normal 36.0-48.0 [facility] Comment on above: Performed By: #### A CBC BHCG2 ####Testing performed at [address] [address] Hemoglobin mass conc (Bld) 15.1 g/dL Normal 12.0-16.0 [facility] Comment on above: Performed By: #### A CBC BHCG2 ####Testing performed at [address] [address] MCH 32.0 pg Normal 26.0-35.0 [facility] Comment on above: Performed By: #### A CBC BHCG2 ####Testing performed at [address] [address] MCHC mass conc (RBC) 35.0 g/dL Normal 27.0-37.0 [facility] Comment on above: Performed By: #### A CBC BHCG2 ####Testing performed at [address] [address] MCV 91.5 fL Normal 80.0-100.0 [facility] Comment on above: Performed By: #### A CBC BHCG2 ####Testing performed at [address] [address] Platelet mean volume (PMV) 9.2 fL Normal 7.4-11.0 [facility] Comment on above: Performed By: #### A CBC, BHCG2 ####Testing performed at [address] [address] Platelets 235 /cmm Normal 130.0-400. 0 [facility] Comment on above: Performed By: #### A CBC, BHCG2 ####Testing performed at [address] [address] WBC (Leukocytes) 8.8 /cmm Normal 3.6-11.0 [facility] Comment on above: Performed By: #### A CBC, BHCG2 ####Testing performed at [address] [address] ED NOTEon 07-07-2017 [facility] NOTES Normal [facility] ED PROVIDERon 07-07-2017 [facility] NOTES Normal [facility] URINE MACROSCOPICon 07-08-19 18 Bilirubin Ql (U) Negative Normal NEGATIVE [facility] Comment on above: Performed By: #### U MAC, UMIC ####Testing performed at [address] [address] URINE HEMOGLOBIN LARGE Abnormal NEGATIVE [facility] Comment on above: Performed By: #### U MAC, UMIC ####Testing performed at [address] [address] URINE KETONE Negative Normal NEGATIVE [facility] Comment on above: Performed By: #### U MAC, UMIC ####Testing performed at [address] [address] URINE LEUKOTEST Negative Normal NEGATIVE [facility] Comment on above: Performed By: #### U MAC, UMIC ####Testing performed at [address] [address] URINE NITRATES Negative Normal NEGATIVE [facility] Comment on above: Performed By: #### U MAC, UMIC ####Testing performed at [address] [address] URINE SPEC GRAVITY 1.025 Normal 1.010-1.0 2 5 [facility] Comment on above: Performed By: #### U MAC, UMIC ####Testing performed at [address] [address] URINE TOTAL PROTEIN Negative Normal NEGATIVE [facility] Comment on above: Performed By: #### U MAC, UMIC ####Testing performed at [address] [place] [address] Urine, clarity CLEAR Normal CLEAR [facility] Comment on above: Performed By: #### U MAC, UMIC ####Testing performed at [address] [place] [address] Urine, color YELLOW Normal YELLOW [facility] Comment on above: Performed By: #### U MAC, UMIC ####Testing performed at [address] [place] [address] Urine, glucose presence Negative Normal NEGATIVE [facility] Comment on above: Performed By: #### U MAC, UMIC ####Testing performed at [address] [address] Urine, pH 7.0 [pH] Normal 5.0-7.0 [facility] Comment on above: Performed By: #### U MAC, UMIC ####Testing performed at [address] [address] Urine, urobilinogen 1.0 mg/dl Normal 0.2-1.0 [facility] Comment on above: Performed By: #### U MAC, UMIC ####Testing performed at [address] [address] URINE MICROSCOPICon 03-30-20 18 CRYSTAL OCCASIONAL Abnormal NONE [facility] Comment on above: Result Comment: CHRIS PHOUS PHOSPHATES Performed By: #### U MAC, UMIC ####Testing performed at [address] [address] URINE COMMENT REFLEX CULTURE PER ESTABLISHED CRITERIA. Normal [facility] Comment on above: Performed By: #### U MAC, UMIC ####Testing performed at [address] [address] URINE WBC'S 1 TO 5 Normal NEGATIVE [facility] Comment on above: Performed By: #### U MAC, UMIC ####[place] [address] Urine, bacteria in sediment 1+ Abnormal NEGATIVE [facility] Comment on above: Performed By: #### U MAC, UMIC ####Testing performed at [address] [place] [address] Urine, casts in sediment NONE Normal NONE [facility] Comment on above: Performed By: #### U MAC, UMIC ####Testing performed at [address] [place] [address] Urine, epithelial cells in sediment 1 TO 5 Normal [facility] Comment on above: Performed By: #### U MAC, UMIC ####Testing performed at [address] [place] [address] Urine, erythrocytes 1 TO 5 Normal NEGATIVE [facility] Comment on above: Performed By: #### U MAC, UMIC ####Testing performed at [address] [place] [address] Urine, mucus presence in sediment Negative Normal NEGATIVE [facility] Comment on above: Performed By: #### U MAC, UMIC ####Testing performed at [address] [address] BhCG Quanton 07-05-2017 HCG.beta subunit Qn 238.0 mIU/m Normal [facility] Comment on above: Result Comment: FEMA LE (NON-) & MALE <3 BORDERLINE 3 - 5 SUGGEST REPEAT TESTING FEMALE () 1 D - 1 WK 5 - 50 1 - 2 WK 50 - 500 2 - 3 WK 100 - 5000 3 - 4 WK 500 - 34229 4 - 5 WK 1000 - 77114 5 - 6 WK [address] - 188525 6 - 8 W[place] [address] - 583392 2 - 3 [place] [address] - 891505 Performed By: #### 2 [id number] ####JIMMIE YawDasi2856 [place] [address] Auto Diffon 07-04-2017 Basophils Auto #/vol (Bld) 0.1 E3/mcL Normal 0.0-0.2 [facility] Comment on above: Order Comment: Order Added by Discern Expert. Performed By: #### 2 693596 ####JIMMIE VprEhvz8180 [place] [address] Basophils/100 WBC Auto (Bld) 0.6 % Normal 0.0-2.0 [facility] Comment on above: Order Comment: Order Added by Discern Expert. Performed By: #### 2 [id number] ####JIMMIE DanVrkHuzk3822 [place] [address] Eos Absolute 0.3 E3/mcL Normal 0.0-0.7 [facility] Comment on above: Order Comment: Order Added by Discern Expert. Performed By: #### 2 384520 ####JIMMIE DanCypJehj4017 [place] [address] Eosinophils/100 leukocytes 2.5 % Normal 0.0-11.0 [facility] Comment on above: Order Comment: Order Added by Discern Expert. Performed By: #### 2 438472 ####JIMMIE DanRpgLbpa6886 [place] [address] Lymphocytes 2.3 E3/mcL Normal 1.2-3.4 [facility] Comment on above: Order Comment: Order Added by Discern Expert. Performed By: #### 2 141196 ####JIMMIE DanEbaRumh3958 [place] [address] Lymphocytes/100 leukocytes 22.2 % Normal 20.0-55.0 [facility] Comment on above: Order Comment: Order Added by Discern Expert. Performed By: #### 2 883741 ####JIMMIE DanXacMyhi3433 [place] [address] [place] Absolute 0.8 E3/mcL High 0.0-0.7 [facility] Comment on above: Order Comment: Order Added by Discern Expert. Performed By: #### 2 085560 ####JIMMIE DanXbhKjmw0631 [place] [address] Monocytes/100 leukocytes 7.6 % Normal 0.0-10.0 [facility] Comment on above: Order Comment: Order Added by Discern Expert. Performed By: #### 2 895849 ####JIMMIE DanXvaZxzv4185 [place] [address] Neutro Absolute 6.9 E3/mcL High 1.4-6.5 [facility] Comment on above: Order Comment: Order Added by Discern Expert. Performed By: #### 2 262259 ####JIMMIE DanWooPnuq0174 [place] [address] Neutro Auto 67.1 % Normal 37.0-75.0 [facility] Comment on above: Order Comment: Order Added by Discern Expert. Performed By: #### 2 034733 ####JIMMIE SqlKagj7530 [place] [address] BMPon 07-04-2017 BUN/Creatinine Ratio 21.7 ratio Normal 5.4-30.0 [facility] Comment on above: Performed By: #### 2 517677 ####JIMMIE SgcEdbm8919 [place] [address] Creatinine 0.6 mg/dL Normal 0.6-1.3 [facility] Comment on above: Performed By: #### 2 607079 ####JIMMIE AxqXnri9249 [place] [address] Urea nitrogen 13 mg/dL Normal 7-18 [facility] Comment on above: Performed By: #### 2 335211 ####JIMMIE NblDacp8190 [place] [address] Calcium 8.4 mg/dL Normal 8.4-10.2 [facility] Comment on above: Performed By: #### 2 214812 ####JIMMIE PkuGapo2522 [place] [address] Chloride 100 mmol/L Normal 98-107 [facility] Comment on above: Performed By: #### 2 328936 ####JIMMIE JxwOtjg9162 [place] [address] CO2 27.7 mmol/L Normal 24.0-30.0 [facility] Comment on above: Performed By: #### 2 498008 ####JIMMIE UvrTjrd5979 [place] [address] Glucose mass conc 98 mg/dL Normal 70-99 [facility] Comment on above: Performed By: #### 2 193314 ####JIMMIE FvsGoeq0756 [place] [address] Potassium molar conc 3.4 mmol/L Low 3.5-5.1 [facility] Comment on above: Performed By: #### 2 603205 ####JIMMIE JjiVfaj7674 [place] [address] Sodium 133 mmol/L Low 136-145 [facility] Comment on above: Performed By: #### 2 693003 ####JIMMIE QrdQrsx3408 [place] [address] BhCG Quanton 07-04-2017 HCG.beta subunit Qn 190.8 mIU/m Normal [facility] Comment on above: Result Comment: FEMA LE (NON-) & MALE <3 BORDERLINE 3 - 5 SUGGEST REPEAT TESTING FEMALE () 1 D - 1 WK 5 - 50 1 - 2 WK 50 - 500 2 - 3 WK 100 - 5000 3 - 4 WK 500 - [address]79 4 - 5 WK 1000 - [address]87 5 - 6 WK [address] - 461767 6 - 8 W[place] [address] - 371987 2 - 3 [place] [address] - 509966 Performed By: #### 2 490658 ####JIMMIE FuvDvvy0131 [place] [address] CBC w/ Auto Diffon 8 Erythrocyte distribution width Auto Ratio (RBC) 11.6 % Normal 11.5-14.5 [facility] Comment on above: Performed By: #### 2 442212 ####JIMMIEJonathan DanXziOsyk1213 [place] [address] Erythrocytes (RBC) 4.43 E6/mcL Normal 3.90-5.40 [facility] Comment on above: Performed By: #### 2 311840 ####JIMMIE IszXtto8852 [place] [address] Hematocrit (HCT) 40.1 % Normal 36.0-48.0 [facility] Comment on above: Performed By: #### 2 478215 ####JIMMIEJonathan OzunaOwcRbzr1236 [place] [address] Hemoglobin mass conc (Bld) 14.1 g/dL Normal 12.0-16.0 [facility] Comment on above: Performed By: #### 2 285825 ####JIMMIEJonathan DanHioZeds1025 [place] [address] MCH 31.7 pg High 27.0-31.0 [facility] Comment on above: Performed By: #### 2 807077 ####JIMMIEJonathan DanWngGjqz8900 [place] [address] MCHC mass conc (RBC) 35.1 g/dL Normal 33.0-37.0 [facility] Comment on above: Performed By: #### 2 167438 ####JIMMIE Ozunao1025 [place] [address] MCV 90.4 fL Normal 78.0-100.0 [facility] Comment on above: Performed By: #### 2 143285 ####JIMMIE Ozunao1025 [place] [address] Platelet mean volume (PMV) 8.4 fL Normal 7.4-11.0 [facility] Comment on above: Performed By: #### 2 963764 ####JIMMIE Ozunao1025 [place] [address] Platelets 232 E3/mcL Normal 130-400 [facility] Comment on above: Performed By: #### 2 521391 ####JIMMIE Ozunao1025 [place] [address] WBC (Leukocytes) 10.3 E3/mcL Normal 3.6-11.0 [facility] Comment on above: Performed By: #### 2 989268 ####JIMMIE Ozunao1025 [place] [address] Hep Func Panelon 07-04-2017 Alanine aminotransferase (ALT) 15 Int._Unit/L Normal 10-40 [facility] Comment on above: Performed By: #### 2 662380 ####JIMMIE MulUnhh0392 [place] [address] Albumin 3.8 g/dL Normal 3.2-5.0 [facility] Comment on above: Performed By: #### 2 432973 ####JIMMIE UdzShsa3350 [place] [address] Albumin/Globulin Ratio 1.4 {ratio} Normal 1.1-1.9 [facility] Comment on above: Performed By: #### 2 126458 ####JIMMIE FafQvam2998 [place] [address] Alk Phos 36 Int._Unit/L Low 42-121 [facility] Comment on above: Performed By: #### 2 883832 ####JIMMIE HgtWtpj9480 [place] [address] Aspartate aminotransferase (AST) 18 Int._Unit/L Normal 10-42 [facility] Comment on above: Performed By: #### 2 043859 ####JIMMIEJonathan GreshamJffDbto5982 [place] [address] Bili Direct <.10 Normal .00-.20 [facility] Comment on above: Performed By: #### 2 564535 ####JIMMIEJonathan DanHlkIjle9210 [place] [address] Bili Indirect >0.7 Normal [facility] Comment on above: Result Comment: No e stablished ranges available for the Indirect Biliruben. Performed By: #### 2 373255 ####JIMMIEJonathan DanBygBsul6027 [place] [address] Bili Total 0.8 mg/dL Normal 0.2-1.0 [facility] Comment on above: Performed By: #### 2 910204 ####JIMMIEJonathan DanNcjSygq0116 [place] [address] Globulin 2.8 g/dL Normal 2.0-4.0 [facility] Comment on above: Performed By: #### 2 883552 ####JIMMIEJonathan DanYsdVedz2306 [place] [address] Protein 6.6 g/dL Normal 6.4-8.3 [facility] Comment on above: Performed By: #### 2 049763 ####JIMMIEJonathan DanYphWxes3020 [place] [address] Lipase Levelon 07-04-2017 Lipase Lvl 19 U/L Normal 8-57 [facility] Comment on above: Performed By: #### 2 673479 ####JIMMIE GubVcag8451 [place] [address] U BhCG Qlton 07-04-2017 HCG.beta subunit Qn Positive Normal Neg [facility] Comment on above: Performed By: #### 2 458203 ####JIMMIE Urinalysis Manual Vjgxitscid7359 [place] [address] UA Completeon 07-04-2017 UA Blood 3+ Normal Negative [facility] Comment on above: Performed By: #### 8 [id number] ####JIMMIE Urinalysis Automated Gaoyzruxkr5764 [place] [address] UA Bacteria Trace Abnormal None [facility] Comment on above: Performed By: #### 8 [id number] ####JIMMIE Urinalysis Automated Jeumeqxkdw4998 [place] [address] UA Clarity SltCloudy Abnormal Clear [facility] Comment on above: Performed By: #### 8 [id number] ####JIMMIE Urinalysis Automated Oc[address]xeoscg30[address] [place] [id number] UA Leuk Est Trace Normal Negative [facility] Comment on above: Performed By: #### 8 [id number] ####JIMMIE Urinalysis Automated [address] [place] [address] UA Mucous Occasional Abnormal Trace [facility] Comment on above: Performed By: #### 8 [id number] ####JIMMIE Urinalysis Automated [address]zn[address] [place] [address] UA Nitrite Negative Normal Negative [facility] Comment on above: Performed By: #### 8 3073558 ####JIMMIE Urinalysis Automated Xdifdtqsea9469 [place] [address] UA pH 5.0 Normal 4.6-8.0 [facility] Comment on above: Performed By: #### 8 [id number] ####JIMMIE Urinalysis Automated Lwmlq[address]uc[address] [place] [address] UA Protein Negative Normal Negative [facility] Comment on above: Performed By: #### 8 [id number] ####JIMMIE Urinalysis Automated Cknffjyliq4646 [place] [address] UA Spec Grav 1.027 Normal 1.003-1.03 0 [facility] Comment on above: Performed By: #### 8 [id number] ####JIMMIE Urinalysis Automated Archhqvfgr0059 [place] [address] UA Squam Epithelial 0-5 Normal 0-5 [facility] Comment on above: Performed By: #### 8 [id number] ####JIMMIE Urinalysis Automated Lxnpjvqwxd8724 [place] [address]20[address] UA Urobilinogen Negative Normal [facility] Comment on above: Performed By: #### 8 [id number] ####JIMMIE Urinalysis Automated Srmoosrxkr3070 [place] [address] UA WBC 10-20 Abnormal 0-5 [facility] Comment on above: Performed By: #### 8 [id number] ####JIMMIE Urinalysis Automated Ktvtadruqj6056 [place] [address] Urine, color Yellow Normal Yellow [facility] Comment on above: Performed By: #### 8 [id number] ####JIMMIE Urinalysis Automated Kcqpqbdnvf0340 [place] [address] Urine, erythrocytes 5-10 Abnormal 0-3 [facility] Comment on above: Performed By: #### 8 [id number] ####JIMMIE Urinalysis Automated Zdgjeewtlc4753 [place] [address] Urine, glucose Negative Normal Negative [facility] Comment on above: Performed By: #### 8 [id number] ####JIMMIE Urinalysis Automated Wcikhoaelu6140 [place] [address] Urine, ketones presence Negative Normal Negative [facility] Comment on above: Performed By: #### 8 [id number] ####JIMMIE Urinalysis Automated Lecnidvbgw1376 [place] [address] Urine, urobilinogen Negative Normal Negative [facility] Comment on above: Performed By: #### 8 [id number] ####JIMMIE Urinalysis Automated Rulidrrbkm8338 [place] [address] eGFRon 07-04-2017 eGFR (non-black) mL/min/{1.73_m2} Normal [facility] Comment on above: Order Comment: Order added by Discern Expert. Performed By: #### 1 [id number] ####JIMMIE DvbEykw8344 [place] [address] Vital Signs Date Time Vital Sign Value Performing Clinician Faci lity 04-20-2023 14:07-0500 Diastolic blood pressure 75 mm[Hg] [facility] [address] [place] [address] 04-20-2023 14:07-0500 Heart rate 93 /min [facility] [address] [place] [address] System 04-20-2023 14:07-0500 Respiratory rate 18 /min [facility] [address] [place] [address] System 04-20-2023 14:07-0500 SaO2% (BldA) [Mass fraction] 99 % [facility] [address] [facility] 04-20-2023 14:07-0500 Systolic blood pressure 127 mm[Hg] [facility] [address] [place] [address] 04-20-2023 14:06-0500 Body height 160 cm [facility] [address] [place] [address] 04-20-2023 14:06-0500 Body mass index (BMI) [Ratio] 37.22 kg/m2 [facility] [address] [place] [address] 04-20-2023 14:06-0500 Body temperature 97.7 [degF] [facility] [address] [place] [address] 04-20-2023 14:06-0500 Body weight 95.3 kg [facility] [address] [place] [address] 03-10-2023 23:05-0500 Diastolic blood pressure 80 mm[Hg] Supriya Aichholz Work Phone: [facility] 03-10-2023 23:05-0500 Heart rate 100 /min Supriya Aichholz Work Phone: [facility] 03-10-2023 23:05-0500 Respiratory rate 20 /min Supriya Aichholz Work Phone: [facility] 03-10-2023 23:05-0500 SaO2% (BldA) [Mass fraction] 98 % Supriya Aichholz Work Phone: [facility] 03-10-2023 23:05-0500 Systolic blood pressure 137 mm[Hg] Supriya Aichholz Work Phone: [facility] 03-10-2023 17:38-0500 Body temperature 97.9 [degF] Supriya Aichholz Work Phone: [facility] 03-10-2023 17:32-0500 Body height 160.02 cm Supriya Aichholz Work Phone: [facility] 03-10-2023 17:32-0500 Body weight 95 kg Supriya Aichholz Work Phone: [facility] Encounters Encounter Date Encounter Type Care Provider Facility Start: 07-04-2023 End: 07-04-2023 ambulatory STEFAN STATON Not Available Start: 06-26-2023 End: 06-26-2023 ambulatory XIN GAMEZO Not Available Start: 06-05-2023 End: 06-05-2023 ambulatory XIN MORTEZA Not Available Start: 05-22-2023 End: 05-22-2023 [facility] Start: 05-22-2023 End: 05-22-2023 Postop follow up visit related to original px Gerson Malik MD Work Phone: [facility] [...] 05-04-2023 [facility] Start: 05-04-2023 End: 05-04-2023 Evaluation and management of inpatient [facility] Start: 04-20-2023 End: 04-20-2023 ambulatory [facility] Start: 04-20-2023 End: 04-20-2023 Patient encounter procedure [facility] 10 [facility] Start: 03-31-2023 End: 03-31-2023 ambulatory XIN MORTEZA Not Available Start: 03-30-2023 End: 03-30-2023 [facility] Start: 03-14-2023 End: 03-14-2023 ambulatory XIN PRO Not Available Start: 03-10-2023 End: 03-11-2023 Emergency department patient visit Jacky Alarcon Facility:[facility] Start: 03-10-2023 End: 03-10-2023 Emergency department patient visit Supriya Cerrato Work Phone: [facility] Work Phone: Start: 03-07-2023 End: 03-07-2023 [...] 07-07-2017 End: 07-07-2017 Emergency department patient visit [facility] Start: 07-05-2017 End: 07-06-2017 Ambulatory Dickson Ahmadi Facility:[facility] Start: 07-04-2017 End: 07-04-2017 Emergency department patient visit Dickson Ahmadi Facility:[facility] Procedures Date Procedure Procedure Detail Performing Clinician [...] of cholecystectomy Status post laparoscopic cholecystectomy Gerson Malik MD Work Phone: Plan of Treatment Date Care Activity Detail Author Start: 10-11-2025 DTaP,Tdap and Td Vac cines (5 - Td or Tdap) DTaP,Tdap and Td Vaccines (5 - Td or Tdap) [facility] Start: 05-04-2024 Adult BMI Screening Adult BMI Screen ing [facility] Start: 05-04-2024 Tobacco Screening Tobacco Screening [facility] Start: 04-20-2024 Adult BMI Screening Adult BMI Screen ing [facility] Start: 04-20-2024 Tobacco Screening Tobacco Screening [facility] Start: 06-05-2023 End: 06-05-2023 Patient encounter procedure 06/05/2023 9:50 AM EST Routine [facility] [address] [facility] [address] [place] [place] [id number] Xin Pro, DO [address] [place] [address] [facility] Start: 05-04-2023 End: 05-04-2023 Admission to same day surgery center 05/04/2023 7:30 AM EST - 05/04/2023 9:30 AM EST Surgery [facility] - [facility] [address] [place] [address] [id number] Gerson Malik MD [address] [place] [address] DAVINCI CHOLECYSTECTOMY [facility] Surgery Comment on above: DAVINCI CHOLECYSTECT ANDREA Start: 05-04-2023 End: 05-04-2023 DAVINCI CHOLECYSTECTOMY DAVINCI CHOLECYSTECTOMY CHOLELITHIASIS 05/04/2023 7:30 AM EST [facility] Start: 05-04-2023 End: 05-04-2023 DAVINCI CHOLECYSTECTOMY CHOLANGIOGRAM DAVINCI CHOLECYSTECTOMY CHOLANGIOGRAM CHOLELITHIASIS 05/04/2023 7:30 AM EST [facility] Start: 05-04-2023 Subsequent hospital visit by physician 05/04/2023 7:30 AM EST Hospital Encounter [facility] [address] [place] [address] Gerson Malik MD [address] [place] [address] [facility] Start: 03-10-2023 US Gallbladder [facility] Start: 03-10-2023 US scan of gallbladder US gall bladd er [facility] Start: 03-10-2023 Bacteria identified in Urine by Culture [facility] Start: 12-09-2022 Influenza vaccination Influenza Vacc ine [facility] Start: 2019 Screening for malign ant neoplasm of cervix Pap Smear [facility] Start: 2016 Adult BMI Follow Up Plan Adult BMI F ollow Up Plan [facility] Start: 2010 Depression Screening Depression Scre ening [facility] Patient Education - e Second Month Nausea and Vomiting, Adult ED Gallstones ED [facility] Work Phone: Patient referral [facility] Work Phone: Payers Date Payer Category Payer Unknown [id number] 2022 Private Health Insurance [id number] 2022 Unknown [id number] 2017 Unknown 1998 Unknown [id number] 2.16.84 [id number] 1998 Unknown [id number] 2.16.84 [id number] 1998 Unknown [id number] 2.16.84 [id number] 1998 Unknown [id number] 2.16.84 [id number] 1998 Unknown [id number] 2.16.84 [id number] 1998 Unknown [id number] 2.16.84 [id number] 1998 Unknown [id number] 2.16.84 [id number] 1998 Unknown [id number] 2.16.84 [id number] 1998 Unknown [id number] 2.16.84 [id number] 1998 Unknown [id number] 2.16.84 0.1.325510.3.579.2.593 1998 Unknown [id number] 2.16.84 0.1.845118.3.579.2.593 1998 Unknown [id number] 2.16.84 0.1.040802.3.579.2.593 1998 Unknown [id number] 2.16.84 0.1.552262.3.579.2.593 1998 Unknown [id number] 2.16.8 40.1.021144.3.579.2.1286 1998 Unknown [id number] 2.16.8 40.1.081481.3.579.2.1286 1998 Unknown [id number] 2.16.8 40.1.599036.3.579.2.1286 1998 Unknown [id number] 2.16.8 40.1.635163.3.579.2.1286 1998 Unknown [id number] 2.16.84 0.1.487123.3.579.2.1286 1998 Unknown [id number] 2.16.84 0.1.243824.3.579.2.1286 1998 Unknown [id number] 2.16.84 0.1.224000.3.579.2.1259 1998 Unknown [id number] 2.16.84 0.1.911885.3.579.2.1259 1998 Unknown [id number] 2.16.84 0.1.486182.3.579.2.1259 1998 Unknown [id number] 2.16.84 0.1.361577.3.579.2.1259 1998 Unknown [id number] 2.16.840 .1.219913.3.579.2.1259 1998 Unknown [id number] 2.16.840 .1.187760.3.579.2.1259 1998 Unknown [id number] 2.16.840 .1.564829.3.579.2.1259 1959 Private Health Insurance [id number] Self-pay 1959 Unknown [id number] 1959 Unknown [id number] Unknown [id number] 2.16.8 40.1.708163.3.579.2.531 Social History Date Type Detail Facility Start: 03-10-2023 End: 03-30-2023 Tobacco smoking status NCIS Never smoked tobacco (finding) [facility] Start: 2000 Sex Assigned At Female [facility] Start: 03-30-2023 End: 05-16-2023 Tobacco use and exposure Smokeless tobacco non-user [facility] Start: 04-20-2023 End: 05-04-2023 Alcohol intake Ex-drinker (finding) [facility] Start: 05-21-2020 End: 04-20-2023 History of Social function [facility] Start: 05-21-2020 End: 04-20-2023 Tobacco use panel [facility] Housing Instability Unknown [facility] Start: 2000 Sex Assigned At Not on file [facility] Start: 05-16-2023 Alcohol intake Lifetime non-d yrn (finding) [facility] Start: 02-10-2023 [facility] History of Present illness Narrative 05-22-2023 Gerson Malik MD - 05/22/2023 3:15 PM EST Note [...] up: As needed documented in this encounter [facility] Instructions 04-20-2023 Patient Instructions Note Date & Type Note Facility 04-20-2023 Instructions Terri Estrada RN - 04/20/2023 1:45 PM EST Your surgery/procedure is scheduled at [facility] on 05/04/23 at 0730 Arrival Time 0530 [facility] Address: [address] [place] [address] [address] Parking lot located on [facility]. Report to the Entrance B. Check in at the information desk the surgery. The waiting room located on the second floor. If you have any questions prior to surgery, please call Pre-Admission Clinic at [phone] between 7:30 am and 4:30 pm Monday through Monday. If you have questions the morning of surgery, please call the Pre-op Department at [phone]. PLEASE FOLLOW THESE INSTRUCTIONS OR YOUR SURGERY [...] would like to schedule therapy at a [facility] facility, please call [phone] ([phone]). Do not use lotions, creams, powders, perfume, make up, cologne or after-shaves day of surgery. Remove ALL jewelry including wedding rings, body piercings,hair extensions that contain metal, nail romansh, make-up, and contact lens. You may brush [...] RIGHTS AND RESPONSIBILITIES As a patient at [facility], you have the right to: Receive medical care and be informed of who is taking care of you Be treated with dignity and respect Have a family member/sales representative education courses of choice and your physician notified of your admission Receive information and actively participate in decisions about your care and treatment Refuse care, treatment and services Decide who may provide your support and speak for you Access yazidi and spiritual services Participate in ethical issues [...] of hospital charges and payment methods Patient/patient sales representative education courses responsibilities are to: Provide information about health [...] in clean clothes. documented in this encounter [facility] Note 04-20-2023 Perioperative Nursing Note - Lexi Reddy RN - 04/20/2023 1:45 PM EST Note Date & Type Note Facility 04-20-2023 Miscellaneous Notes Formattin g of this note might be different from the original. Appt reminder call done-message left documented in this encounter [facility] Nurse Note 04-20-2023 Perioperative Nursing Note - Lexi Reddy RN - 04/20/2023 1:45 PM EST Note Date & Type Note Facility 04-20-2023 Nurse Note Appt reminder call done-message left [facility] Evaluation note Note Date & Type Note Facility Evaluation note No assessment information availa [facility] Work Phone: Evaluation note Note Date & Type Note Facility Evaluation note Diagnosis Status post laparoscopic cholecystectomy- Primary Other postprocedural status documented in this encounter [facility] Hospital Discharge instructions Note Date & Type Note Facility Hospital Discharge instructions Additional Instructions Return if symptoms are worse Continue your Zofran and Reglan at home and will add Phenergan for vomiting Follow-up with your surgeon [facility] Work Phone: Instructions Attachments Note Date & Type Note Facility Instructions The following attachments cannot be sent through Care Everywhere.Cholecystectomy Discharge Instructions (Urdu)documented in this encounter [facility] Summary Purpose Family History No Family History [...] section and content) DATE CREATED AUTHOR 09/28/2017 [facility] DATE CREATED AUTHOR AUTHOR'S ORGANIZ ATION 09/29/2017 [facility] DATE CREATED AUTHOR AUTHOR'S ORGANIZ ATION 04/16/2020 [facility] DATE CREATED AUTHOR AUTHOR'S ORGANIZ ATION 08/24/2022 [facility] DATE CREATED AUTHOR AUTHOR'S ORGANIZ ATION 03/21/2023 [facility] DATE CREATED AUTHOR AUTHOR'S ORGANIZ ATION 05/24/2023 [facility] DATE CREATED AUTHOR AUTHOR'S ORGANIZ ATION 07/06/2023 [facility] EPIC Care Teams (unrecognized sec tion and content) Team Status: Active Member Role Status Dates Supriya Cerrato Primary Care Provider Active Team Status: Inactive Member Role Status Dates Supriya Cerrato Primary Care Provider Active Jacky Alarcon MD Emergency Provider Active Cyber Security Administrator Relationship Specialty Start Date End Date Supriya Cerrato APRN-INFORMATION TECHNOLOGY INSTRUCTOR [address] [place] [address] PCP - General Nurse Practitioner 03/30/23 Cyber Security Administrator Relationship Specialty Start Date End Date Supriya Cerrato APRN-INFORMATION TECHNOLOGY INSTRUCTOR [address] [place] [id number] PCP - General Nurse Practitioner 03/30/23 Goals [...] BE BASED ON THE PRIMARY CLINICAL RECORDS. [facility] [employer] [facility]. provides no warranty or guarantee of the accuracy or completeness of information in this document.
== END 2023-07-10 09:03 | disposition home or self-care (01) ==
LOC: NOMS 09:03
PROVIDERS: Visit Provider Obstetrics & Gynecology
DX: O28.8 Other abnormal findings on antenatal screening of mother (principal); Z36.2 Encounter for other antenatal screening follow-up; Z3A.23 23 weeks gestation of pregnancy
CPT/HCPCS: 76815

== ENCOUNTER 2023-08-30 13:01 | Outpatient (OUT) | payer OTHER, SELFPAY ==
[2023-08-30 14:21] LABS: Glucose 1 Hour 120 mg/dL (<130)
[2023-08-30 14:37] LABS: Basophils Percent Auto 0.4 % (0.2-2.0); Eosinophils Absolute Auto 0.1 10^3/uL (0.0-0.7); Eosinophils Percent Auto 1.3 % (0.9-7.0); Immature Granulocytes Abs Auto 0.09 10^3/uL (0.00-0.03); Immature Granulocytes Pct Auto 0.8 % (0.0-0.5); Lymphocytes Absolute Auto 1.7 10^3/uL (1.2-3.8); Lymphocytes Percent Auto 15.7 % (20.5-60.0); Mean Corpuscular HGB Conc 33.3 g/dL (29.9-35.2); Mean Corpuscular Hemoglobin 29.3 pg (26.7-34.0); Mean Corpuscular Volume 87.8 fL (81.0-99.0); Mean Platelet Volume 11.3 fL (9.5-13.5); Monocytes Absolute Auto 0.5 10^3/uL (0.3-0.8); Monocytes Percent Auto 4.6 % (1.7-12.0); Neutrophils Absolute Auto 8.6 10^3/uL (1.4-6.5); Neutrophils Percent Auto 77.2 % (43.0-75.0); Platelet Count 176 10^3/uL (150-450); Red Blood Count 3.76 10^6/uL (4.20-5.40); Red Cell Distribution Width 12.5 % (11.0-15.0); White Blood Count 11.1 10^3/uL (4.0-11.0)
== END 2023-08-30 13:02 | disposition home or self-care (01) ==
LOC: LAB 13:02
PROVIDERS: Visit Provider Obstetrics & Gynecology
DX: Z13.1 Encounter for screening for diabetes mellitus (principal)
CPT/HCPCS: 36415; 82950; 85025

== ENCOUNTER 2023-08-30 14:13 | Outpatient (OUT) | payer OTHER, SELFPAY ==
--- NOTE | 2023-08-30 14:16 | US_ITS ---
[address] [address] Patient Name: EDISON ASHLEY MRN: [id number] date: 2000 Sex: F Assigned Patient Location: [facility] Current Patient Location: [facility] Accession/Order Number: [id number] Exam Date: 08/30/2023 14:16 Report Date: 08/30/2023 15:15 At the request of: XIN GRULLON Procedure: US OB growth EXAMINATION: US OB growth HISTORY: SIZE INCONSISTENT WITH DATES COMPARISON: No relevant comparison available. FINDINGS: Heart Rate: 147.0 bpm Amniotic Fluid Volume: 10.6 cm Number: 1.0 Position: Cephalic presentation, longitudinal lie Maximum Vertical Pocket: 3.7 cm cm 2.3 cm cm 3.4 cm cm 1.3 cm cm BIOMETRY: BPD: 8.1 cm cm; 32 weeks 3 days; 87% HC: 30.4 cmcm; 33 weeks 5 days , 91% AC: 27.9 cm cm; 32 weeks 0 days, 82% FL: 6.2 cm cm; 32 weeks 1 days; 75.0 % % EFW: 1933.8 grams, 4 lbs. 4 oz., 87% FL/AC: 22.2 FL/BPD: 76.7 HC/AC: 1.1 GESTATIONAL AGE: Age by EDC: 30 weeks 5 days LILIAN by EDC: 11/03/2023 Age by US: 32 weeks 4 days LILIAN by US: 10/21/2023 US/US OB growth IMPRESSION: Normal interval growth Electronically authenticated by: DONALD AGUILAR Date: 08/30/2023 15:15
== END 2023-08-30 14:14 | disposition home or self-care (01) ==
LOC: NOMS 14:14
PROVIDERS: Visit Provider Obstetrics & Gynecology
DX: O26.849 Uterine size-date discrepancy, unspecified trimester (principal); Z13.1 Encounter for screening for diabetes mellitus; Z3A.32 32 weeks gestation of pregnancy
CPT/HCPCS: 36415; 76816; 82950; 85025

== ENCOUNTER 2023-09-13 07:00 | Outpatient (OUT) | payer OTHER, SELFPAY ==
--- OUTSIDE RECORDS SUMMARY | 2023-09-13 07:02 | XMS_ITS ---
Patient Summarization (C-CDA 2.1 CCD) Created on: September 13, 2023 DARY POST : 2000 Sex: Female Author Organization Sample organization Care Team Providers Care Electromechanisms Design Drafter Name Role Phone Galdino, Dickson W Unavailable Unavailable [place], Dickson W Unavailable Unavailable No Doctor Assigned, Nodr Unavailable Unavail able [place], Dickson W Unavailable Unavailable [place], Dickson W Unavailable Unavailable No Doctor Assigned, Nodr Unavailable Unavail able SHEMAR ., STEFAN Admitting Unavailable SHEMAR ., STEFAN Consulting Unavailable AICHHOLZ, CPO SUPRIYA Primary Care Unavailable SHEMAR ., STEFAN Attending Unavailable MORTEZA ., DR LAUREN Admitting Unavailable SHEMAR ., STEFAN Consulting Unavailable AICHHOLZ, CPO SUPRIYA Primary Care Unavailable MORTEZA ., DR LAUREN Attending Unavailable SHEMAR ., STEFAN Admitting Unavailable SHEMAR ., STEFAN Consulting Unavailable SHEMAR ., STEFAN Attending Unavailable AICHHOLZ, CPO SUPRIYA Primary Care Unavailable AICHHOLZ, CPO SUPRIYA Primary Care Unavailable MORTEZA ., DR LAUREN Attending Unavailable MORTEZA ., DR LAUREN Admitting Unavailable MORTEZA ., DR LAUREN Admitting Unavailable MORTEZA ., DR LAUREN Attending Unavailable AICHHOLZ, CPO SUPRIYA Primary Care Unavailable MORTEZA ., DR LAUREN Consulting Unavailable KARASIK ., DR MURPHY Attending Unavailabl e AICHHOLZ, CPO SUPRIYA Primary Care Unavailable KARASIK ., DR [...] MORTEZA ., DR LAUREN Consulting Unavailable AICHHOLZ, CPO SUPRIYA Primary Care Unavailable MORTEZA ., DR LAUREN Attending Unavailable Zieber, Tristan Consulting Unavailable MORTEZA ., DR LAUREN Consulting Unavailable REQUEST, DR NONE LISTED Primary Care Unavaila ble MORTEZA ., DR LAUREN Attending Unavailable MORTEZA ., DR LAUREN Admitting Unavailable Zieber, Tristan Consulting Unavailable MORTEZA ., DR LAUREN Admitting Unavailable AICHHOLZ, CPO SUPRIYA Primary Care Unavailable MORTEZA ., DR LAUREN Attending Unavailable [place], DR DONALD Bryan Consulting Unavailable MORTEZA ., DR LAUREN Consulting Unavailable MORTEZA ., DR LAUREN Admitting Unavailable AICHHOLZ, CPO SUPRIYA Primary Care Unavailable MORTEZA ., DR LAUREN Attending Unavailable MORTEZA ., DR LAUREN Consulting Unavailable SHEMAR ., STEFAN Attending Unavailable SHEMAR ., STEFAN Admitting Unavailable Zieber, Tristan Consulting Unavailable REQUEST, DR NONE LISTED Primary Care Unavaila ble SHEMAR ., STEFAN Consulting Unavailable MORTEZA ., DR LAUREN Admitting Unavailable MORTEZA ., DR LAUREN Consulting Unavailable MORTEZA ., DR LAUREN Attending Unavailable AICHHOLZ, CPO SUPRIYA Primary Care Unavailable Aichholz, Supriya J Primary Care Provider MD Jacky Alarcon Emergency Provider [phone] Jacky Alarcon Attending Unavailable Jacky Alarcon Admitting Unavailable Erickz, Supriya J Primary Care Unavailable Aichholz RAIL TRANSIT OPERATOR-JULIO, Supriya J Primary Care Provider Unavailable Primary [...] Unavailable AICHHOLZ, SUPRIYA J Primary Care Unavailable AL-JUBOURI, PA A Attending Unavailabl e AICHHOLZ, SUPRIYA J Referring Unavailable AICHHOLZ, SUPRIYA J Primary Care Unavailable MORTEZA, XIN Attending Unavailable MORTEZA, XIN Attending Unavailable MORTEZA, XIN Attending Unavailable MORTEZA, XIN Attending Unavailable SHEMAR, STEFAN Attending Unavailable MORTEZA, XIN Attending Unavailable MORTEZA, XIN Attending Unavailable SHEMAR, STEFAN Attending Unavailable Allergies Allergy Classification Reported Allergen(s) Allergy Type Date of Onset Reaction(s) Facility (1 source) No Known Medication Allergies; Translations: [No Known Medication Allergies] Propensity to adverse reactions to drug (disorder) [facility] Repository Encounters Encounter Date Encounter Type Care Provider Facility Start: 08-30-2023 End: 08-30-2023 ambulatory STEFAN STATON Not Available Start: 08-14-2023 End: 08-14-2023 ambulatory XIN MORTEZA Not Available Start: 07-04-2023 End: 07-04-2023 ambulatory STEFAN BROWNEY Not Available Start: 06-26-2023 End: 06-26-2023 ambulatory XIN MORTEZA Not Available Start: 06-05-2023 End: 06-05-2023 ambulatory XIN MORTEZA Not Available Start: 05-22-2023 End: 05-22-2023 ambulatory GERSON AVALOS [facility] Start: 05-22-2023 End: 05-22-2023 Postop follow up visit related to original px Gerson Avalos MD Work Phone: [facility] Comment on above: Status [...] 05-04-2023 Evaluation and management of inpatient SUKI ELI [facility] Start: 05-04-2023 End: 05-04-2023 Evaluation and management of inpatient [facility] Start: 04-20-2023 End: 04-20-2023 ambulatory [facility] Start: 04-20-2023 End: 04-20-2023 Patient encounter procedure [facility] Provider [facility] Start: 03-31-2023 End: 03-31-2023 ambulatory XIN MORTEZA Not Available Start: 03-30-2023 End: 03-30-2023 ambulatory [facility] Start: 03-14-2023 End: 03-14-2023 ambulatory XIN MORTEZA Not Available Start: 03-10-2023 End: 03-11-2023 Emergency department patient visit Jacky Alarcon Facility:[facility] Start: 03-10-2023 End: 03-10-2023 Emergency department patient visit Supriya Emmanueltanvi Work Phone: [facility] Work Phone: Start: 03-07-2023 End: 03-07-2023 ambulatory XIN MORTEZA Not Available Start: 07-29-2022 End: 07-30-2022 Evaluation [...] 03-17-2022 End: 03-18-2022 ambulatory STEFAN STATON . Facility: Start: 02-12-2022 End: 02-13-[address] XIN PRO . Facility:[facility] Start: 02-11-[address] XIN PRO . Facili ty: Start: 01-21-2022 End: 01-22-[address] XIN PRO . Facility: Start: 07-07-2017 End: 07-07-2017 Emergency department patient visit [facility] Start: 07-05-2017 End: 07-06-[address] [facility] Facility:[facility] Start: 07-04-2017 End: 07-04-2017 Emergency department patient visit [facility] Facility:[facility] Medications Current Medications Medication Drug Class(es) Dates [...] Cephalexin Active 1000 MG PO Q12H 40 March 10, 2023 12:00am docusate sodium 100 [...] MG PO Q6H March 10, 2023 12:00am Payers Date Payer Category Payer Unknown [id number] 2022 Private Health Insurance [id number] 2022 Unknown [id number] 2017 Unknown 1998 Unknown [id number] 2.16.84 0.1.794068.3.579.2.593 1998 Unknown [id number] 2.16.84 0.1.463135.3.579.2.593 1998 Unknown [id number] 2.16.84 0.1.436304.3.579.2.593 1998 Unknown [id number] 2.16.84 0.1.480896.3.579.2.593 1998 Unknown [id number] 2.16.84 0.1.156167.3.579.2.593 1998 Unknown [id number] 2.16.84 0.1.943995.3.579.2.593 1998 Unknown [id number] 2.16.84 0.1.391315.3.579.2.593 1998 Unknown [id number] 2.16.84 0.1.237148.3.579.2.593 1998 Unknown [id number] 2.16.84 0.1.079925.3.579.2.593 1998 Unknown [id number] 2.16.84 0.1.460105.3.579.2.593 1998 Unknown [id number] 2.16.84 0.1.495198.3.579.2.593 1998 Unknown [id number] 2.16.84 0.1.362290.3.579.2.593 1998 Unknown [id number] 2.16.84 0.1.866135.3.579.2.593 1998 Unknown [id number] 2.16.8 40.1.516262.3.579.2.1286 1998 Unknown [id number] 2.16.8 40.1.262152.3.579.2.1286 1998 Unknown [id number] 2.16.8 40.1.965543.3.579.2.1286 1998 Unknown [id number] 2.16.8 40.1.983902.3.579.2.1286 1998 Unknown [id number] 2.16.84 0.1.929933.3.579.2.1286 1998 Unknown [id number] 2.16.84 0.1.432946.3.579.2.1286 1998 Unknown [id number] 2.16.84 0.1.954925.3.579.2.1259 1998 Unknown [id number] 2.16.84 0.1.985439.3.579.2.1259 1998 Unknown [id number] 2.16.84 0.1.633737.3.579.2.1259 1998 Unknown [id number] 2.16.84 0.1.701957.3.579.2.1259 1998 Unknown [id number] 2.16.84 0.1.557656.3.579.2.1259 1998 Unknown [id number] 2.16.84 0.1.468339.3.579.2.1259 1998 Unknown [id number] 2.16.840 .1.674112.3.579.2.1259 1998 Unknown [id number] 2.16.840 .1.288456.3.579.2.1259 1998 Unknown [id number] 2.16.840 .1.557879.3.579.2.1259 1959 Private Health Insurance [id number] 1959 Self-pay 1959 Unknown [id number] 1959 Unknown [id number] Unknown [id number] 2.16.8 40.1.103699.3.579.2.531 Plan of Treatment Date Care Activity Detail Author Start: 10-11-2025 DTaP,Tdap and Td Vac cines (5 - Td or Tdap) DTaP,Tdap and Td Vaccines (5 - Td or Tdap) [facility] Start: 05-04-2024 Adult BMI Screening Adult BMI Screen ing [facility] Start: 05-04-2024 Tobacco Screening Tobacco Screening [facility] Start: 04-20-2024 Adult BMI Screening Adult BMI Screen ing [facility] Start: 04-20-2024 Tobacco Screening Tobacco Screening [facility] Start: 06-05-2023 End: 06-05-2023 Patient encounter procedure 06/05/2023 9:50 AM EST Routine [facility] [address] [place] [phone] Xin Pro, DO [address] [place] [address] [facility] Start: 05-04-2023 End: 05-04-2023 Admission to same day surgery center 05/04/2023 7:30 AM EST - 05/04/2023 9:30 AM EST Surgery [facility] [address] [place] [phone] Gerson Avalos MD [address] [place], [place] [phone] DAVINCI CHOLECYSTECTOMY [facility] Comment on above: DAVINCI CHOLECYSTECT ANDREA Start: 05-04-2023 End: 05-04-2023 DAVINCI CHOLECYSTECTOMY DAVINCI CHOLECYSTECTOMY CHOLELITHIASIS 05/04/2023 7:30 AM EST [facility] Start: 05-04-2023 End: 05-04-2023 DAVINCI CHOLECYSTECTOMY CHOLANGIOGRAM DAVINCI CHOLECYSTECTOMY CHOLANGIOGRAM CHOLELITHIASIS 05/04/2023 7:30 AM EST [facility] Start: 05-04-2023 Subsequent hospital visit by physician 05/04/2023 7:30 AM EST Hospital Encounter [address] [phone] Gerson Avalos MD [address] [place] [address] [facility] Start: 03-10-2023 US Gallbladder [facility] Start: 03-10-2023 US scan of gallbladder US gall bladd er [facility] Start: 03-10-2023 Bacteria identified in Urine by Culture [facility] Start: 12-09-2022 Influenza vaccination Influenza Vacc ine [facility] Start: 2019 Screening for malign ant neoplasm of cervix Pap Smear [facility] Start: 2016 Adult BMI Follow Up Plan Adult BMI F ollow Up Plan [facility] Start: 2010 Depression Screening Depression Scre ening [facility] Patient Education - e Second Month Nausea and Vomiting, Adult ED Gallstones ED [facility] Work Phone: Patient referral [facility] Work Phone: Problems Active Problems Problem Classification Problem Date [...] (2 sources) No known active problems 09-30-2019 Procedures Date Procedure Procedure Detail Performing Clinician [...] laparoscopic cholecystectomy Gerson Avalos MD Work Phone: Results Test Name Value Interpretation Reference Range Facility ALL CBC WITH AUTO DIFFon BASOPHILS ABSOLUTE AUTO 0.0 [facility] Basophils/100 WBC (Bld) 0.3 % 0.2 - 2.0 % [facility] Eosinophils/100 WBC (Bld) 2.0 % 0.9 - 7.0 % [facility] Erythrocyte distribution width (RBC) [Ratio] 12.8 % 11.0 - 15.0 % [facility] Hematocrit (Bld) [Volume fraction] 39.3 % 36.0 - 48.0 % [facility] Hemoglobin (Bld) [Mass/Vol] 14.1 g/dL 12.0 - 16.0 g/dL [facility] IMMATURE GRANULOCYTES ABS AUTO 0.07 High [facility] Immature granulocytes/100 WBC (Bld) 0.7 % High 0.0 - 0.5 % [facility] Interpretation and review of laboratory results Abnormal [facility] LYMPHOCYTES ABSOLUTE AUTO 2.0 [facility] Lymphocytes/100 WBC (Bld) 19.1 % Low 20.5 - 60.0 % [facility] MCH (RBC) [Entitic mass] 32.0 pg 26.7 - 34.0 pg [facility] MCHC (RBC) [Mass/Vol] 35.9 g/dL High 29.9 - 35.2 g/dL [facility] MCV (RBC) [Entitic vol] 89.3 fL 81.0 - 99.0 fL [facility] MONOCYTES ABSOLUTE AUTO 0.5 [facility] Monocytes/100 WBC (Bld) 4.7 % 1.7 - 12.0 % [facility] NEUTROPHILS ABSOLUTE AUTO 7.6 High [facility] Neutrophils/100 WBC (Bld) 73.2 % 43.0 - 75.0 % [facility] Platelet mean volume (Bld) [Entitic vol] 11.4 fL 9.5 - 13.5 fL [facility] TBH EO # 0.2 [facility] TB PLT 218 [facility] TB RBC 4.40 [facility] TB WBC 10.4 [facility] CLINISYNC [facility] Surgical Pathologyon 024 Surgical Pathology Normal [facility] Comment on above: Result Comment: [facility] [address] [place] [address] Surgical Pathology Consultation Patient Name:DARY POST:2000 (Age: 23)Gender:FTaken:4Reported:4Physician(s):GERSON Kelsey To: Rec. 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 No evidence of malignancy or dysplasia. Cholelithiasis. Report Electronically Signed Out ao/05/12/2023olamide Moreno MD Interpretation performed at [facility], [address] [place] [address], License number: [id number]. Clinical History Cholelithiasis. Gross Description Received in [...] congested, hemorrhagic and velvety in the neck. Videotape Operator sections are submitted in cassettes A- B, as: A- cystic duct margin and loan representative ragged defects,B- loan representative neck body and fundus. After initial microscopic evaluation, additional sections are submitted in cassettes C-E. (5,ss,[id number], m6) MARYJANE/ mxw/05/04/2023SSI Specimen(s) Received Gallbladder Fee Codes(s): 1; 31576 gall bladderon 03-11-2023 gall bladder [facility] Main [place] [id number] Ultrasound Report Signed Patient: Dary Post MR#: [id number] : 2000 Acct:[id number] Age/Sex: 22 / F ADM Date: 03/10/23 Loc: ER Room: Type: [facility] ER Attending Dr: Ordering Provider: [...] Nataliia Scott M.D.03/11/2023 8:10 AM Dictation Location: [place] [address] Tech: Isibaron Caballero Transcribed By: RONI 03/11/23 0810 Dictated By: Nataliia Scott MD 03/11/23 0807 Signed By: 03/11/23 0810 Normal [facility] Alanine aminotransferase [En zymatic activity/volume] in Serum or PlasmaOrdered By: Jacky Alarcon on 03-10-2023 ALT [Catalytic activity/Vol] 36 U/L 7-52 [facility] Albumin [Mass/volume] in Ser um or Plasma by Bromocresol green (BCG) dye binding methoOrdered By: Jacky Alarcon on 03-10-2023 Albumin BCG dye [Mass/Vol] 4.5 g/dL 3.5-5.7 [facility] Alkaline phosphatase [Enzyma tic activity/volume] in Serum or PlasmaOrdered By: Jacky Alarcon on 03-10-2023 ALP [Catalytic activity/Vol] 71 U/L 34-104 [facility] Aspartate aminotransferase [ Enzymatic activity/volume] in Serum or PlasmaOrdered By: Jacky Alarcon on 03-10-2023 AST [Catalytic activity/Vol] 17 U/L 13-39 [facility] Automated erythrocytes count in urine sediment (number/area)Ordered By: Jacky Alarcon on 03-10-2023 RBC Auto (Urine sed) [#/Area] 50-100 [HPF] 0-4 [facility] Automated leukocytes count i n urine sediment (number/area)Ordered By: Jacky Alarcon on 03-10-2023 WBC Auto (Urine sed) [#/Area] 5-9 [HPF] 0-4 [facility] Basic Metabolic Panelon Anion gap [Moles/Vol] 16.5 mmol/L High 6.0-15.0 [facility] Comment on above: Performed By: #### L IPASE, HCGQNT, HEPATIC, BMP, CBC #### [facility] [address] Calcium [Mass/Vol] 9.3 mg/dL Normal 8.6-10.3 [facility] Comment on above: Performed By: #### L IPASE, HCGQNT, HEPATIC, BMP, CBC #### [facility] [address] Chloride [Moles/Vol] 101 mmol/L Normal 98-107 [facility] Comment on above: Performed By: #### L IPASE, HCGQNT, HEPATIC, BMP, CBC #### [facility] [address] [place] [address] [place] CO2 [Moles/Vol] 18.8 mmol/L Low 21.0-31.0 [facility] Comment on above: Performed By: #### L IPASE, HCGQNT, HEPATIC, BMP, CBC #### [facility] [address] [place] [address] [place] Creatinine [Mass/Vol] 0.64 mg/dL Normal 0.60-1.20 [facility] Comment on above: Performed By: #### L IPASE, HCGQNT, HEPATIC, BMP, CBC #### [facility] [address] [place] [address] [place] Creatinine Clr Calc Pharmacy 148.58 Normal [facility] Comment on above: Performed By: #### L IPASE, HCGQNT, HEPATIC, BMP, CBC #### [facility] [address] [place] [address] [place] GFR/1.73 sq M.predicted MDRD (S/P/Bld) [Vol rate/Area] mL/min/{1.73_m2} Normal [facility] Comment on above: Performed By: #### L IPASE, HCGQNT, HEPATIC, BMP, CBC #### [facility] [address] Glucose [Mass/Vol] 83 mg/dL Normal 70-100 [facility] Comment on above: Result Comment: [facility] Glucose Reference Range is dependent on time and content of last meal. Glucose of more than 200 mg/dL in a nonstressed, ambulatory subject supports the diagnosis of Diabetes Mellitus. ADA recommended reference range Performed By: #### L IPASE, HCGQNT, HEPATIC, BMP, CBC #### [facility] [address] [place] [address] Potassium [Moles/Vol] 3.3 mmol/L Low 3.5-5.1 [facility] Comment on above: Performed By: #### L IPASE, HCGQNT, HEPATIC, BMP, CBC #### [address] Sodium [Moles/Vol] 133 mmol/L Low 136-145 [facility] Comment on above: Performed By: #### L IPASE, HCGQNT, HEPATIC, BMP, CBC #### [address] Urea nitrogen [Mass/Vol] 6 mg/dL Low 7-25 [facility] Comment on above: Performed By: #### L IPASE, HCGQNT, HEPATIC, BMP, CBC #### [address] Basophils Auto (Bld) [#/Vol] Ordered By: Jacky Alarcon on 03-10-2023 Basophils (Bld) [#/Vol] 0.1 10*3/uL 0.0-0.2 [facility] Basophils/100 WBC Auto (Bld) Ordered By: Jacky Alarcon on 03-10-2023 Basophils/100 WBC (Bld) 0.4 % . [facility] Bilirubin Test strip Ql (U)O rdered By: Jacky Alarcon on 03-10-2023 Bilirubin Ql (U) Negative Negative [facility] Bilirubin.direct [Mass/volum e] in Serum or PlasmaOrdered By: Jacky Alarcon on 03-10-2023 Bilirubin.direct [Mass/Vol] 0.40 mg/dL 0.03-0.18 [facility] Bilirubin.total [Mass/volume ] in Serum or PlasmaOrdered By: Jacky Alarcon on 03-10-2023 Bilirubin [Mass/Vol] 1.2 mg/dL 0.3-1.0 [facility] Calcium [Mass/volume] in Ser um or PlasmaOrdered By: Jacky Alarcon on 03-10-2023 Calcium [Mass/Vol] 9.3 mg/dL 8.6-10.3 [facility] Carbon dioxide, total [Moles /volume] in Serum or PlasmaOrdered By: Jacky Alarcon on 03-10-2023 CO2 [Moles/Vol] 18.8 mmol/L 21.0-31.0 [facility] Chloride [Moles/volume] in S rahul or PlasmaOrdered By: Jacky Alarcon on 03-10-2023 Chloride [Moles/Vol] 101 mmol/L 98-107 [facility] Choriogonadotropin.beta subu nit [Units/volume] in Serum or PlasmaOrdered By: Jacky Alarcon on 03-10-2023 [place] [address].00 m[IU]/mL [facility] Comment on above: Approximate Approxim ate hCG Gestational Age Range (mIU/ml) (weeks)0.2-1 5-50 1-2 50-500 2-3 100-5,000 3-4 500-10,000 4-5 1,000-50,000 5-6 10,000-100,000 6-8 15,000-200,000 8-12 10,000-100,000 Color Auto (U)Ordered By: Corinna Alarcon on 03-10-2023 Color (U) Dark yellow Yellow [facility] Complete Blood Count Auto Di ffon 03-10-2023 Basophils (Bld) [#/Vol] 0.1 10*3/uL Normal 0.0-0.2 [facility] Comment on above: Result Comment: PERF ORMED BY: [facility] [address] [place] [address] PATHOLOGIST VISUAL EDUCATION TEACHER ANDRÉS MACEDO M.D. Performed By: #### L IPASE, HCGQNT, HEPATIC, BMP, CBC #### [address] Basophils/100 WBC (Bld) 0.4 % Normal . [facility] Comment on above: Performed By: #### L IPASE, HCGQNT, HEPATIC, BMP, CBC #### [address] Eosinophils (Bld) [#/Vol] 0.1 10*3/uL Normal 0.0-0.45 [facility] Comment on above: Performed By: #### L IPASE, HCGQNT, HEPATIC, BMP, CBC #### [address] Eosinophils/100 WBC (Bld) 0.5 % Normal . [facility] Comment on above: Performed By: #### L IPASE, HCGQNT, HEPATIC, BMP, CBC #### [address] Erythrocyte distribution width (RBC) [Ratio] 13.3 % Normal 11.9-15.3 [facility] Comment on above: Performed By: #### L IPASE, HCGQNT, HEPATIC, BMP, CBC #### [address] Hematocrit (Bld) [Volume fraction] 47.2 % High 34.0-46.4 [facility] Comment on above: Performed By: #### L IPASE, HCGQNT, HEPATIC, BMP, CBC #### [address] Hemoglobin (Bld) [Mass/Vol] 16.5 g/dL High 11.8-15.4 [facility] Comment on above: Performed By: #### L IPASE, HCGQNT, HEPATIC, BMP, CBC #### [address] Lymphocytes (Bld) [#/Vol] 1.9 10*3/uL Normal 1.00-4.8 [facility] Comment on above: Performed By: #### L IPASE, HCGQNT, HEPATIC, BMP, CBC #### [address] Lymphocytes/100 WBC (Bld) 11.6 % Normal . [facility] Comment on above: Performed By: #### L IPASE, HCGQNT, HEPATIC, BMP, CBC #### [address] MCH (RBC) [Entitic mass] 30.8 pg Normal 24.7-34.3 [facility] Comment on above: Performed By: #### L IPASE, HCGQNT, HEPATIC, BMP, CBC #### [address] MCV (RBC) [Entitic vol] 87.8 fL Normal 80-100 [facility] Comment on above: Performed By: #### L IPASE, HCGQNT, HEPATIC, BMP, CBC #### [address] Mean Corpuscular HGB Conc 35.0 g/dL Normal 32.0-35.0 [facility] Comment on above: Performed By: #### L IPASE, HCGQNT, HEPATIC, BMP, CBC #### [address] Monocytes (Bld) [#/Vol] 1.4 10*3/uL High 0.0-0.8 [facility] Comment on above: Performed By: #### L IPASE, HCGQNT, HEPATIC, BMP, CBC #### [address] Monocytes/100 WBC (Bld) 16.05 % Normal 0.00-20.00 [facility] Comment on above: Performed By: #### L IPASE, HCGQNT, HEPATIC, BMP, CBC #### [address] Monocytes/100 WBC (Bld) 8.8 % Normal . [facility] Comment on above: Performed By: #### L IPASE, HCGQNT, HEPATIC, BMP, CBC #### [address] Neutrophils (Bld) [#/Vol] 12.6 10*3/uL High 1.8-7.7 [facility] Comment on above: Performed By: #### L IPASE, HCGQNT, HEPATIC, BMP, CBC #### [address] Neutrophils/100 WBC (Bld) 78.7 % Normal . [facility] Comment on above: Performed By: #### L IPASE, HCGQNT, HEPATIC, BMP, CBC #### [address] NRBC% 0.1 /100{WBC} Normal 0-0.5 [facility] Comment on above: Performed By: #### L IPASE, HCGQNT, HEPATIC, BMP, CBC #### [address] Platelet mean volume (Bld) [Entitic vol] 9.7 fL Normal 6.3-10.7 [facility] Comment on above: Performed By: #### L IPASE, HCGQNT, HEPATIC, BMP, CBC #### [address] Platelets (Bld) [#/Vol] 263 10*3/uL Normal 150-450 [facility] Comment on above: Performed By: #### L IPASE, HCGQNT, HEPATIC, BMP, CBC #### [place] [address] [place] RBC (Bld) [#/Vol] 5.37 10*6/uL High 3.60-5.00 [facility] Comment on above: Performed By: #### L IPASE, HCGQNT, HEPATIC, BMP, CBC #### [address] WBC (Bld) [#/Vol] 16.0 10*3/uL High 3.8-11.6 [facility] Comment on above: Performed By: #### L IPASE, HCGQNT, HEPATIC, BMP, CBC #### [facility] [address] Creatinine [Mass/volume] in Serum or PlasmaOrdered By: Jacky Alarcon on 03-10-2023 Creatinine [Mass/Vol] 0.64 mg/dL 0.60-1.20 [facility] Dipstick and Microscopicon 1 05-11-2022 Appearance (U) Turbid Critically abnormal Clear [facility] Comment on above: Order Comment: Name Collection Type:: Clean-Voided Midstream Performed By: #### A DDONUAPLUS, CUU #### [facility] [address] [place] [address] Bacteria,Urine Rare High None Seen [facility] Comment on above: Order Comment: Name Collection Type:: Clean-Voided Midstream Performed By: #### A DDONUAPLUS, CUU #### [place] [address] [place] Bilirubin,Urine Negative Normal Negative [facility] Comment on above: Order Comment: Name Collection Type:: Clean-Voided Midstream Performed By: #### A DDONUAPLUS, CUU #### [address] Color (U) Dark Yellow Critically abnormal Yellow [facility] Comment on above: Order Comment: Name Collection Type:: Clean-Voided Midstream Performed By: #### A DDONUAPLUS, CUU #### [facility] [address] [place] [address] Glucose Ql (U) Normal Normal Normal [facility] Comment on above: Order Comment: Name Collection Type:: Clean-Voided Midstream Performed By: #### A DDONUAPLUS, CUU #### [place] [address] [place] Hyaline Casts,Urine 9-19 High 0-8 [facility] Comment on above: Order Comment: Name Collection Type:: Clean-Voided Midstream Result Comment: PERF ORMED BY: [place] [address] PATHOLOGIST VISUAL EDUCATION TEACHER ANDRÉS MACEDO M.D. Performed By: #### A DDONUAPLUS, CUU #### [address] Ketones Ql (U) 4+ High Negative [facility] Comment on above: Order Comment: Name Collection Type:: Clean-Voided Midstream Performed By: #### A DDONUAPLUS, CUU #### [address] Leukocyte esterase Test strip Ql (U) 1+ High Negative [facility] Comment on above: Order Comment: Name Collection Type:: Clean-Voided Midstream Performed By: #### A DDONUAPLUS, CUU #### [address] Nitrite,Urine Negative Normal Negative [facility] Comment on above: Order Comment: Name Collection Type:: Clean-Voided Midstream Performed By: #### A DDONUAPLUS, CUU #### [address] Occult Blood,Urine 3+ High Negative [facility] Comment on above: Order Comment: Name Collection Type:: Clean-Voided Midstream Result Comment: PERF ORMED BY: [place] [address] PATHOLOGIST VISUAL EDUCATION TEACHER ANDRÉS MACEDO M.D. Performed By: #### A DDONUAPLUS, CUU #### [address] Othe Crystals,Urine Normal [facility] Comment on above: Order Comment: Name Collection Type:: Clean-Voided Midstream Result Comment: sulf a crystals Performed By: #### A DDONUAPLUS, CUU #### [address] pH (U) 6.5 [pH] Normal 5.0-9.0 [facility] Comment on above: Order Comment: Name Collection Type:: Clean-Voided Midstream Performed By: #### A DDONUAPLUS, CUU #### [address] Protein (U) [Mass/Vol] 100 mg/dL High Negative [facility] Comment on above: Order Comment: Name Collection Type:: Clean-Voided Midstream Performed By: #### A DDONUAPLUS, CUU #### [address] RBC,Urine 50-100 High 0-4 [facility] Comment on above: Order Comment: Name Collection Type:: Clean-Voided Midstream Performed By: #### A DDONUAPLUS, CUU #### [address] Specificy [place],Urine 1.029 Normal 1.001-1.03 0 [facility] Comment on above: Order Comment: Name Collection Type:: Clean-Voided Midstream Performed By: #### A DDONUAPLUS, CUU #### [address] Squamous Epithelial Cell,Urine 1-2 Normal 0-2 [facility] Comment on above: Order Comment: Name Collection Type:: Clean-Voided Midstream Performed By: #### A DDONUAPLUS, CUU #### [address] Urobilinogen,Urine Normal Normal Normal [facility] Comment on above: Order Comment: Name Collection Type:: Clean-Voided Midstream Performed By: #### A DDONUAPLUS, CUU #### [address] WBC,Urine 5-9 High 0-4 [facility] Comment on above: Order Comment: Name Collection Type:: Clean-Voided Midstream Performed By: #### A DDONUAPLUS, CUU #### [address] Eosinophils Auto (Bld) [#/Vo l]Ordered By: Jacky Alarcon on 03-10-2023 Eosinophils (Bld) [#/Vol] 0.1 10*3/uL 0.0-0.45 [facility] Eosinophils/100 WBC Auto (Bl d)Ordered By: Jacky Alarcon on 03-10-2023 Eosinophils/100 WBC (Bld) 0.5 % . [facility] Erythrocyte distribution wid th Auto (RBC) [Ratio]Ordered By: Jacky Alarcon on 03-10-2023 Erythrocyte distribution width (RBC) [Ratio] 13.3 % 11.9-15.3 [facility] Globulin Calc (S) [Mass/Vol] Ordered By: Jacky Alarcon on 03-10-2023 Globulin (S) [Mass/Vol] 3.5 g/dL [facility] Glucose [Mass/volume] in Ser um or PlasmaOrdered By: Jacky Alarcon on 03-10-2023 Glucose [Mass/Vol] 83 mg/dL 70-100 [facility] Comment on above: ADA recommended refe rence rangeRandom Glucose Reference Range is dependent on time and content of last meal. Glucose of more than 200 mg/dL in a nonstressed, ambulatory subject supports the diagnosis of Diabetes Mellitus. HCG ( test) IA.rapi d Ql (U)Ordered By: Jacky Alarcon on 03-10-2023 HCG ( test) Ql (U) Positive [facility] HCG,Quantitativeon HCG,Quantitative 29621.00 m[iU]/mL Normal F [facility] Comment on above: Result Comment: Appr oximate Approximate hCG Gestational Age Range (mIU/ml) (weeks) 0.2-1 5-50 1-2 50-500 2-3 100-5,000 3-4 500-10,000 4-5 1,000-50,000 5-6 10,000-100,000 6-8 15,000-200,000 8-12 10,000-100,000 PERFORMED BY: [place] [address] PATHOLOGIST VISUAL EDUCATION TEACHER ANDRÉS MACEDO M.D. Performed By: #### L IPASE, HCGQNT, HEPATIC, BMP, CBC #### [address] HCG,Urineon 03-10-2023 Beta HCG ( test) Ql (U) Positive High [facility] Comment on above: Result Comment: PERF ORMED BY: [place] [address] PATHOLOGIST VISUAL EDUCATION TEACHER ANDRÉS MACEDO M.D. Performed By: #### U HCG #### [facility] [address] [place] [address] Hematocrit Auto (Bld) [Volum e fraction]Ordered By: Jacky Alarcon on 03-10-2023 Hematocrit (Bld) [Volume fraction] 47.2 % 34.0-46.4 [facility] Hemoglobin [Mass/volume] in BloodOrdered By: Jacky Alarcon on 03-10-2023 Hemoglobin (Bld) [Mass/Vol] 16.5 g/dL 11.8-15.4 [facility] Hepatic Panelon 03-10-2023 Albumin [Mass/Vol] 4.5 g/dL Normal 3.5-5.7 [facility] Comment on above: Performed By: #### L IPASE, HCGQNT, HEPATIC, BMP, CBC #### [facility] [address] [place] [address] Albumin/Globulin [Mass ratio] 1.3 {ratio} Normal [facility] Comment on above: Performed By: #### L IPASE, HCGQNT, HEPATIC, BMP, CBC #### [facility] [address] [place] [address] ALP [Catalytic activity/Vol] 71 U/L Normal 34-104 [facility] Comment on above: Performed By: #### L IPASE, HCGQNT, HEPATIC, BMP, CBC #### [facility] [address] [place] [address] [place] ALT [Catalytic activity/Vol] 36 U/L Normal 7-52 [facility] Comment on above: Performed By: #### L IPASE, HCGQNT, HEPATIC, BMP, CBC #### [facility] [address] [place] [address] [place] AST [Catalytic activity/Vol] 17 U/L Normal 13-39 [facility] Comment on above: Performed By: #### L IPASE, HCGQNT, HEPATIC, BMP, CBC #### [facility] [address] Bilirubin [Mass/Vol] 1.2 mg/dL High 0.3-1.0 [facility] Comment on above: Performed By: #### L IPASE, HCGQNT, HEPATIC, BMP, CBC #### [facility] [address] Bilirubin,Indirect 0.8 mg/dL Normal [facility] Comment on above: Performed By: #### L IPASE, HCGQNT, HEPATIC, BMP, CBC #### [facility] [address] Bilirubin.indirect [Mass/Vol] 0.40 mg/dL High 0.03-0.18 [facility] Comment on above: Performed By: #### L IPASE, HCGQNT, HEPATIC, BMP, CBC #### [facility] [address] Globulin (S) [Mass/Vol] 3.5 g/dL Normal [facility] Comment on above: Performed By: #### L IPASE, HCGQNT, HEPATIC, BMP, CBC #### [address] Protein [Mass/Vol] 8.0 g/dL Normal 6.4-8.9 [facility] Comment on above: Performed By: #### L IPASE, HCGQNT, HEPATIC, BMP, CBC #### [address] Ketones Auto test strip (U) [Mass/Vol]Ordered By: Jacky Alarcon on 03-10-2023 Ketones (U) [Mass/Vol] 4+ Negative [facility] - UrinalysisOrder ed By: Jacky Alarcon on 03-10-2023 Hyaline casts LM Ql (Urine sed) 9-19 [LPF] 0-8 [facility] Leukocytes [#/volume] correc anabell for nucleated erythrocytes in Blood by Automated counOrdered By: Jacky Alarcon on 03-10-2023 WBC corrected for nucl RBC Auto (Bld) [#/Vol] 16.0 10*3/uL 3.8-11.6 [facility] Lipaseon 03-10-2023 Lipase [Catalytic activity/Vol] 35.0 U/L Normal 11.0-82.0 [facility] Comment on above: Result Comment: PERF ORMED BY: [facility] [address] [place] [address] PATHOLOGIST VISUAL EDUCATION TEACHER ANDRÉS MACEDO M.D. Performed By: #### L IPASE, HCGQNT, HEPATIC, BMP, CBC #### [facility] [address] Lipase [Enzymatic activity/v olume] in Serum or PlasmaOrdered By: Jacky Alarcon on 03-10-2023 Lipase [Catalytic activity/Vol] 35.0 U/L 11.0-82.0 [facility] Lymphocytes Auto (Bld) [#/Vo l]Ordered By: Jacky Alarcon on 03-10-2023 Lymphocytes (Bld) [#/Vol] 1.9 10*3/uL 1.00-4.8 [facility] Lymphocytes/100 WBC Auto (Bl d)Ordered By: Jacky Alarcon on 03-10-2023 Lymphocytes/100 WBC (Bld) 11.6 % . [facility] MCH Auto (RBC) [Entitic mass ]Ordered By: Jacky Alarcon on 03-10-2023 MCH (RBC) [Entitic mass] 30.8 pg 24.7-34.3 [facility] MCHC Auto (RBC) [Mass/Vol]Or dered By: Jacky Alarcon on 03-10-2023 MCHC (RBC) [Mass/Vol] 35.0 g/dL 32.0-35.0 [facility] MCV Auto (RBC) [Entitic vol] Ordered By: Jacky Alarcon on 03-10-2023 MCV (RBC) [Entitic vol] 87.8 fL 80-100 [facility] Monocyte distribution width [Entitic volume] in Blood by AutomatedOrdered By: Jacky Alarcon on 03-10-2023 Monocyte distribution width Auto (Bld) [Entitic vol] 16.05 % 0.00-20.00 [facility] Monocytes Auto (Bld) [#/Vol] Ordered By: Jacky Alarcon on 03-10-2023 Monocytes (Bld) [#/Vol] 1.4 10*3/uL 0.0-0.8 [facility] Monocytes/100 WBC Auto (Bld) Ordered By: Jacky Alarcon on 03-10-2023 Monocytes/100 WBC (Bld) 8.8 % . [facility] Neutrophils Auto (Bld) [#/Vo l]Ordered By: Jacky Alarcon on 03-10-2023 Neutrophils (Bld) [#/Vol] 12.6 10*3/uL 1.8-7.7 [facility] Neutrophils/100 WBC Auto (Bl d)Ordered By: Jacky Alarcon on 03-10-2023 Neutrophils/100 WBC (Bld) 78.7 % . [facility] Nitrite Test strip Ql (U)Ord ered By: Jacky Alarcon on 03-10-2023 Nitrite Ql (U) Negative Negative [facility] No Panel InformationOrdered By: Jacky Alarcon on 03-10-2023 Estimated GFR (CKD-EPI) > 60.0 mL/Min [facility] Creatinine Clearance (Chem 148.58 [facility] Nucleated erythrocytes [Pres ence] in Blood by Automated countOrdered By: Jacky Alarcon on 03-10-2023 Nucleated RBC Auto Ql (Bld) 0.1 /100{WBC} 0-0.5 [facility] Platelet mean volume Auto (B ld) [Entitic vol]Ordered By: Jacky Alarcon on 03-10-2023 Platelet mean volume (Bld) [Entitic vol] 9.7 fL 6.3-10.7 [facility] Platelets Auto (Bld) [#/Vol] Ordered By: Jacky Alarcon on 03-10-2023 Platelets (Bld) [#/Vol] 263 10*3/uL 150-450 [facility] Potassium [Moles/volume] in Serum or PlasmaOrdered By: Jacky Alarcon on 03-10-2023 Potassium [Moles/Vol] 3.3 mmol/L 3.5-5.1 [facility] Protein Auto test strip (U) [Mass/Vol]Ordered By: Jacky Alarcon on 03-10-2023 Protein (U) [Mass/Vol] 100 mg/dL Negative [facility] Protein [Mass/volume] in Ser um or PlasmaOrdered By: Jacky Alarcon on 03-10-2023 Protein [Mass/Vol] 8.0 g/dL 6.4-8.9 [facility] RBC Auto (Bld) [#/Vol]Ordere d By: Jacky Alarcon on 03-10-2023 RBC (Bld) [#/Vol] 5.37 10*6/uL 3.60-5.00 [facility] Serum or plasma albumin/glob ulin mass ratioOrdered By: Jacky Alarcon on 03-10-2023 Albumin/Globulin [Mass ratio] 1.3 {ratio} [facility] Serum or plasma anion gap de terminationOrdered By: Jacky Alarcon on 03-10-2023 Anion gap [Moles/Vol] 16.5 mmol/L 6.0-15.0 [facility] Serum or plasma non-glucuron idated bilirubin measurement (mass/volume)Ordered By: Jacky Alarcno on 03-10-2023 Bilirubin.indirect [Mass/Vol] 0.8 mg/dL [facility] Sodium [Moles/volume] in Ser um or PlasmaOrdered By: Jacky Alarcon on 03-10-2023 Sodium [Moles/Vol] 133 mmol/L 136-145 [facility] Specific gravity Auto test s trip (U) [Rel density]Ordered By: Jacky Alarcon on 03-10-2023 Specific gravity (U) [Rel density] 1.029 1.001-1.03 0 [facility] Squamous epithelial cells de tection in urine sediment by light microscopyOrdered By: Jacky Alarcon on 03-10-2023 Epithelial cells.squamous LM Ql (Urine sed) 1-2 [HPF] 0-2 [facility] Urea nitrogen [Mass/volume] in Serum or PlasmaOrdered By: Jacky Alarcon on 03-10-2023 Urea nitrogen [Mass/Vol] 6 mg/dL 7-25 [facility] Urine Cultureon 03-10-2023 Bacteria identified Cx Nom (U) >100,000 colonies/ml mixed bacterial skin contaminants 2 Days PERFORMED BY: [place] [address] [place] [address] PATHOLOGIST VISUAL EDUCATION TEACHER ANDRÉS MACEDO M.D. Normal [facility] Comment on above: Performed By: #### A DDONUAPLUS, CUU #### [facility] [address] Urine bacteria detection by automated methodOrdered By: Jacky Alarcon on 03-10-2023 Bacteria Auto Ql (U) Rare None Seen [facility] Urine clarity by refractomet ry automatedOrdered By: Jacky Alarcon on 03-10-2023 Clarity Refractometry automated (U) Turbid Clear [facility] Urine glucose measurement by automated test strip (mass/volume)Ordered By: Jacky Alarcon on 03-10-2023 Glucose Auto test strip (U) [Mass/Vol] Normal mg/dL Normal [facility] Urine hemoglobin detection b y automated test stripOrdered By: Jacky Alarcon on 03-10-2023 Hemoglobin Auto test strip Ql (U) 3+ Negative [facility] Urine leukocyte esterase det ection by automated test stripOrdered By: Jacky Alarcon on 03-10-2023 Leukocyte esterase Auto test strip Ql (U) 1+ Negative [facility] Urine sediment crystal ident ification by light microscopyOrdered By: Jacky Alarcon on 03-10-2023 Crystals LM Nom (Urine sed) See comment [facility] Comment on above: sulfa crystals Urobilinogen Auto test strip (U) [Mass/Vol]Ordered By: Jacky Alarcon on 03-10-2023 Urobilinogen (U) [Mass/Vol] Normal mg/dL Normal [facility] WBC Auto (Bld) [#/Vol]Ordere d By: Jacky Alarcon on 03-10-2023 WBC (Bld) [#/Vol] 16.0 10*3/uL 3.8-11.6 [facility] pH Auto test strip (U)Ordere d By: Jacky Alarcon on 03-10-2023 pH (U) 6.5 [pH] 5.0-9.0 [facility] CBC AUTO DIFFon 07-30-2022 BASO # 0.1 103/ul Normal 0.0-0.1 [facility] Comment on above: Performed By: #### G TT3P #### [facility] [address] [address] [address] Jackelyn Celestin Basophils/100 WBC (Bld) 0.6 % Normal 0.2-2.0 [facility] Comment on above: Performed By: #### G TT3P #### [facility] [address] [place] [address] Dr. Jackelyn Celestin EO # 0.2 103/ul Normal 0.0-0.7 [facility] Comment on above: Performed By: #### G TT3P #### [facility] [address] [place] [address] Dr. Jackelyn Celestin Eosinophils/100 WBC (Bld) 1.5 % Normal 0.9-7.0 [facility] Comment on above: Performed By: #### G TT3P #### [facility] [address] [place] [address] Dr. Jackelyn Celestin Erythrocyte distribution width (RBC) [Ratio] 14.5 % Normal 11.0-15.0 [facility] Comment on above: Performed By: #### G TT3P #### [facility] [address] [place] [address] Dr. Jackelyn Celestin Hematocrit (Bld) [Volume fraction] 33.9 % Critically low 36.0-48.0 [facility] Comment on above: Performed By: #### G TT3P #### [facility] [address] [place] [address] Dr. Jackelyn Celestin Hemoglobin (Bld) [Mass/Vol] 11.0 g/dL Critically low 12.0-16.0 [facility] Comment on above: Performed By: #### G TT3P #### [facility] [address] [place] [address] Dr. Jackelyn Celestin IG # 0.13 10e3/ul Critically high 0.00-0.03 [facility] Comment on above: Performed By: #### G TT3P #### [facility] [address] [place] [address] Dr. Jackelyn Celestin IG % 1.1 % Critically high 0.0-0.5 [facility] Comment on above: Performed By: #### G TT3P #### [facility] [address] [place] [address] Dr. Jackelyn Celestin LYMPH # 2.2 103/ul Normal 1.2-3.8 [facility] Comment on above: Performed By: #### G TT3P #### [facility] [address] [place] [address] Dr. Jackelyn Celestin Lymphocytes/100 WBC (Bld) 17.9 % Critically low 20.5-60.0 [facility] Comment on above: Performed By: #### G TT3P #### [facility] [address] [place] [address] Dr. Jackelyn Celestin MANUAL DIFF REQ NO Normal [facility] Comment on above: Performed By: #### G TT3P #### [facility] [address] [place] [address] Dr. Jackelyn Celestin MCH (RBC) [Entitic mass] 28.6 pg Normal 26.7-34.0 [facility] Comment on above: Performed By: #### G TT3P #### [facility] [address] [place] [address] Dr. Jackelyn Celestin MCHC (RBC) [Mass/Vol] 32.4 g/dL Normal 29.9-35.2 [facility] Comment on above: Performed By: #### G TT3P #### [facility] [address] [place] [address] Dr. Jackelyn Celestin MCV (RBC) [Entitic vol] 88.1 fL Normal 81.0-99.0 [facility] Comment on above: Performed By: #### G TT3P #### [facility] [address] [place] [address] Dr. Jackelyn Celestin MONO # 0.8 103/ul Normal 0.3-0.8 [facility] Comment on above: Performed By: #### G TT3P #### [facility] [address] [place] [address] Dr. Jackelyn Celestin Monocytes/100 WBC (Bld) 6.9 % Normal 1.7-12.0 [facility] Comment on above: Performed By: #### G TT3P #### [facility] [address] [place] [address] Dr. Jackelyn Celestin NEUT # 8.7 103/ul Critically high 1.4-6.5 [facility] Comment on above: Performed By: #### G TT3P #### [facility] [address] [place] [address] Dr. Jackelyn Celestin Neutrophils/100 WBC (Bld) 72.0 % Normal 43.0-75.0 [facility] Comment on above: Performed By: #### G TT3P #### [facility] [address] [place] [address] Dr. Jackelyn Celestin Platelet mean volume (Bld) [Entitic vol] 11.5 fL Normal 9.5-13.5 [facility] Comment on above: Performed By: #### G TT3P #### [facility] [address] [place] [address] Dr. Jackelyn Celestin PLT 146 103/ul Critically low 150-450 [facility] Comment on above: Performed By: #### G TT3P #### [facility] [address] [place] [address] Dr. Jackelyn Celestin RBC 3.85 106/ul Critically low 4.20-5.40 [facility] Comment on above: Performed By: #### G TT3P #### [facility] [address] [place] [address] Dr. Jackelyn Celestin WBC 12.1 103/ul Critically high 4.0-11.0 [facility] Comment on above: Performed By: #### G TT3P #### [facility] [address] [place] [address] Dr. Jackelyn Celestin CBC AUTO DIFFon 07-29-2022 BASO # 0.0 103/ul Normal 0.0-0.1 [facility] Comment on above: Performed By: #### [id number] #### [facility] [address] [place] [address] Dr. Jackelyn Celestin Basophils/100 WBC (Bld) 0.4 % Normal 0.2-2.0 [facility] Comment on above: Performed By: #### [id number] #### [facility] [address] [place] [address] Dr. Jackelyn Celestin EO # 0.2 103/ul Normal 0.0-0.7 [facility] Comment on above: Performed By: #### [id number] #### [facility] [address] [place] [address] Dr. Jackelyn Celestin Eosinophils/100 WBC (Bld) 1.4 % Normal 0.9-7.0 [facility] Comment on above: Performed By: #### [id number] #### [facility] [address] [place] [address] Dr. Jackelyn Celestin Erythrocyte distribution width (RBC) [Ratio] 14.1 % Normal 11.0-15.0 [facility] Comment on above: Performed By: #### [id number] #### [facility] [address] [place] [address] Dr. Jackelyn Celestin Hematocrit (Bld) [Volume fraction] 36.0 % Normal 36.0-48.0 [facility] Comment on above: Performed By: #### [id number] #### [facility] [address] [place] [address] Dr. Jackelyn Celestin Hemoglobin (Bld) [Mass/Vol] 12.2 g/dL Normal 12.0-16.0 [facility] Comment on above: Performed By: #### [id number] #### [facility] [address] [place] [address] Dr. Jackelyn Celestin IG # 0.10 10e3/ul Critically high 0.00-0.03 [facility] Comment on above: Performed By: #### [id number] #### [facility] [address] [place] [address] Dr. Jackelyn Celestin IG % 0.9 % Critically high 0.0-0.5 [facility] Comment on above: Performed By: #### 4 [id number] #### [facility] [address] [place] [address] Dr. Jackelyn Celestin LYMPH # 1.9 103/ul Normal 1.2-3.8 [facility] Comment on above: Performed By: #### 4 [id number] #### [facility] [address] [place] [address] Dr. Jackelyn Celestin Lymphocytes/100 WBC (Bld) 17.7 % Critically low 20.5-60.0 [facility] Comment on above: Performed By: #### 4 [id number] #### [facility] [address] [place] [address] Dr. Jackelyn Celestin MANUAL DIFF REQ NO Normal [facility] Comment on above: Performed By: #### 4 [id number] #### [facility] [address] [place] [address] Dr. Jackelyn Celestin MCH (RBC) [Entitic mass] 28.8 pg Normal 26.7-34.0 [facility] Comment on above: Performed By: #### 4 [id number] #### [facility] [address] [place] [address] Dr. Jackelyn Celestin MCHC (RBC) [Mass/Vol] 33.9 g/dL Normal 29.9-35.2 [facility] Comment on above: Performed By: #### 4 [id number] #### [facility] [address] [place] [address] Dr. Jackelyn Celestin MCV (RBC) [Entitic vol] 84.9 fL Normal 81.0-99.0 [facility] Comment on above: Performed By: #### 4 [id number] #### [facility] [address] [place] [address] Dr. Jackelyn Celestin MONO # 0.9 103/ul Critically high 0.3-0.8 [facility] Comment on above: Performed By: #### 4 [id number] #### [facility] [address] [place] [address] Dr. Jackelyn Celestin Monocytes/100 WBC (Bld) 8.4 % Normal 1.7-12.0 [facility] Comment on above: Performed By: #### 4 [id number] #### [facility] [address] [place] [address] Dr. Jackelyn Celestin NEUT # 7.7 103/ul Critically high 1.4-6.5 [facility] Comment on above: Performed By: #### 4 [id number] #### [facility] [address] [place] [address] Dr. Jackelyn Celestin Neutrophils/100 WBC (Bld) 71.2 % Normal 43.0-75.0 [facility] Comment on above: Performed By: #### 4 [id number] #### [facility] [address] [place] [address] Dr. Jackelyn Celestin Platelet mean volume (Bld) [Entitic vol] 10.9 fL Normal 9.5-13.5 [facility] Comment on above: Performed By: #### 4 [id number] #### [facility] [address] [place] [address] Dr. Jackelyn Celestin PLT 170 103/ul Normal 150-450 [facility] Comment on above: Performed By: #### 4 [id number] #### [facility] [address] [place] [address] Dr. Jackelyn Celestin RBC 4.24 106/ul Normal 4.20-5.40 [facility] Comment on above: Performed By: #### 4 [id number] #### [facility] [address] [place] [address] Dr. Jackelyn Celestin WBC 10.8 103/ul Normal 4.0-11.0 [facility] Comment on above: Performed By: #### 4 [id number] #### [facility] [address] [place] [address] Dr. Jackelyn Celestin DRUG SCREEN RAPID (URINE)on 07-29-2022 AMP Negative Normal NEGATIVE [facility] Comment on above: Performed By: #### 4 [id number] #### [facility] [address] [place] [address] Dr. Jackelyn Celestin BAR Negative Normal NEGATIVE [facility] Comment on above: Performed By: #### 4 [id number] #### [facility] [address] [place] [address] Dr. Jackelyn Celestin BUP Negative Normal NEGATIVE [facility] Comment on above: Performed By: #### 4 [id number] #### [facility] [address] [place] [address] Dr. Jackelyn Celestin BZO Negative Normal NEGATIVE [facility] Comment on above: Performed By: #### 4 [id number] #### [facility] [address] [place] [address] Dr. Jackelyn Celestin HOMERO Negative Normal NEGATIVE [facility] Comment on above: Performed By: #### 4 [id number] #### [facility] [address] [place] [address] Dr. Jackelyn Celestin CUT-OFFS SEE BELOW Normal [facility] Comment on above: Result Comment: AMP (Amphetamine): 500ng/mL, BAR (Barbituates): 200 ng/mL, BZO (Benzodiazepines): 150 ng/mL, BUP (Buprenorphine): 10 ng/mL, HOMERO (Cocaine): 150 ng/mL, mAMP (Methamphetamine): 500 ng/mL, MTD (Methadone): 200 ng/mL, OPI (Opiates): 100 ng/mL, OXY (Oxycodone): 100 ng/mL, PCP (Phencyclidine): 25 ng/mL, PPX (Propoxyphene): 300 ng/mL, THC (Cannabinoids): 50 ng/mL, TCA (Trycyclic Antidepressants): 300 ng/mL Performed By: #### 4 [id number] #### [facility] [address] [place] [address] Dr. Jackelyn Celestin DRUG CUT HEADER DRUG CLASS TEST SYST EM CUT-OFF CONCENTRATIONS ARE FOLLOWS: Normal [facility] Comment on above: Performed By: #### 4 [id number] #### [facility] [address] [place] [address] Dr. Jackelyn Celestin mAMP Negative Normal NEGATIVE [facility] Comment on above: Performed By: #### 4 [id number] #### [facility] [address] [place] [address] Dr. Jackelyn Celestin MTD Negative Normal NEGATIVE [facility] Comment on above: Performed By: #### 4 [id number] #### [facility] [address] [place] [address] Dr. Jackelyn Celestin OPI Negative Normal NEGATIVE [facility] Comment on above: Performed By: #### 4 [id number] #### [facility] [address] [place] [address] Dr. Jackelyn Celestin OXY Negative Normal NEGATIVE [facility] Comment on above: Performed By: #### 4 [id number] #### [facility] [address] [place] [address] Dr. Jackelyn Celestin PCP Negative Normal NEGATIVE [facility] Comment on above: Performed By: #### 4 [id number] #### [facility] [address] [place] [address] Dr. Jackelyn Celestin PPX Negative Normal NEGATIVE [facility] Comment on above: Performed By: #### 4 [id number] #### [facility] [address] [place] [address] Dr. Jackelyn Celestin TCA Negative Normal NEGATIVE [facility] Comment on above: Performed By: #### 4 [id number] #### [facility] [address] [place] [address] Dr. Jackelyn Celestin THC Negative Normal NEGATIVE [facility] Comment on above: Performed By: #### 4 [id number] #### [facility] [address] [place] [address] Dr. Jackelyn Celestin TYPE AND SCREENon 07-29-2022 TYPE AND SCREEN Negative Normal [facility] Comment on above: Performed By: #### G TT3P #### [facility] [address] [place] [address] Dr. Jackelyn Celestin US PREG GROWTHon 07-25-2022 [...] TRISTAN HART Date: 2022-07-24 22:37 Normal [facility] GROUP B STREP CULTUREon 06-09 S. agalactiae Ag Ql (Unsp spec) Culture Observations: NEGATIVE FOR GROUP B STREPTOCOCCUS. Normal [facility] Comment on above: Performed By: #### G TT3P #### [facility] [address] [address] [address] Jackelyn Celestin PREG GROWTHon 06-06-2022 US [...] TRISTAN HART Date: 2022-06-06 15:39 Normal [facility] GTT 3 HR PREGon 05-21-2022 Glucose [Mass/Vol] 91 mg/dL Normal 74-106 [facility] Comment on above: Performed By: #### G TT3P #### [facility] [address] [place] [address] Dr. Jackelyn Celestin Glucose [Mass/Vol] 168 mg/dL Normal [facility] Comment on above: Performed By: #### G TT3P #### [facility] [address] [place] [address] Dr. Jackelyn Celestin Glucose [Mass/Vol] 121 mg/dL [facility] Comment on above: Performed By: #### G TT3P #### [facility] [address] [place] [address] Dr. Jackelyn Celestin Glucose [Mass/Vol] 86 mg/dL [facility] Comment on above: Performed By: #### G TT3P #### [facility] [address] [place] [address] Dr. Jackelyn Celestin PAP ACOG PANEL 2: 21 to 29on 05-17-2022 . . Normal [facility] Comment on above: Performed By: #### 4 [id number] #### [facility] [address] [place] [address] Dr. Jackelyn Celestin Age Gdln ACOG Testing - [facility] Comment on above: Performed By: #### 4 [id number] #### [facility] [address] [place] [address] Dr. Jackelyn Celestin DIAGNOSIS: Comment [facility] Comment on above: Result Comment: NEGA TIVE FOR INTRAEPITHELIAL LESION OR MALIGNANCY. Performed By: #### 4 [id number] #### [facility] [address] [place] [address] Dr. Jackelyn Celestin Methodology: Comment [facility] Comment on above: Result Comment: This liquid based ThinPrep(R) pap test was screened with the use of an image guided system. Performed By: #### 4 [id number] #### [facility] [address] [place] [address] Dr. Jackelyn Celestin Note: Comment [facility] Comment on above: Result Comment: The Pap smear is a screening test designed to aid in the detection of premalignant and malignant conditions of the uterine cervix. It is not a diagnostic procedure and should not be used as the sole means of detecting cervical cancer. Both false-positive and false-negative reports do occur. . Performed By: #### 4 [id number] #### [facility] [address] [place] [address] Dr. Jackelyn Celestin Performed by: Comment [facility] Comment on above: Result Comment: Alphonso Walker, Mailmaster (ASCP) Performed By: #### 4 [id number] #### [facility] [address] [place] [address] Dr. Jackelyn Celestin Reflex Criteria: Comment Normal [facility] Comment on above: Result Comment: The HPV DNA reflex criteria were not met with this specimen result therefore, no HPV testing was performed. . Performed By: #### 4 [id number] #### [facility] [address] [place] [address] Dr. Jackelyn Celestin Specimen adequacy: Comment Normal [facility] Comment on above: Result Comment: Sati sfactory for evaluation. No endocervical component is identified. Performed By: #### 4 [id number] #### [facility] [address] [place] [address] Dr. Jackelyn Celestin CHLAMYDIA/GONOCOCCUS ALONDRA (SW AB/URINE/PAPon 05-14-2022 Chlamydia trachomatis, ALONDRA Negative Normal Negative [facility] Comment on above: Performed By: #### G TT3P #### [facility] [address] [place] [address] Dr. Jackelyn Celestin Neisseria gonorrhoeae, ALONDRA Negative Normal Negative [facility] Comment on above: Performed By: #### G TT3P #### [facility] [address] [place] [address] Dr. Jackelyn Celestin VAGINITIS/VAGINOSIS DNA PROB Dean 05-13-2022 Thao species Negative Normal Negative [facility] Comment on above: Performed By: #### 4 [id number] #### [facility] [address] [place] [address] Dr. Jackelyn Celestin Gardnerella vaginalis Negative Normal Negative [facility] Comment on above: Performed By: #### 4 [id number] #### [facility] [address] [place] [address] Dr. Jackelyn Celestin Trichomonas vaginalis Negative Normal Negative [facility] Comment on above: Performed By: #### 4 [id number] #### [facility] [address] [place] [address] Dr. Jackelyn Celestin CBC AUTO DIFFon 05-09-2022 BASO # 0.0 103/ul Normal 0.0-0.1 [facility] Comment on above: Performed By: #### C BC #### [facility] [address] [place] [address] Dr. Jackelyn Celestin Basophils/100 WBC (Bld) 0.3 % Normal 0.2-2.0 [facility] Comment on above: Performed By: #### C BC #### [facility] [address] [place] [address] Dr. Jackelyn Celestin EO # 0.1 103/ul Normal 0.0-0.7 [facility] Comment on above: Performed By: #### C BC #### [facility] [address] [place] [address] Dr. Jackelyn Celestin Eosinophils/100 WBC (Bld) 1.2 % Normal 0.9-7.0 [facility] Comment on above: Performed By: #### C BC #### [facility] [address] [place] [address] Dr. Jackelyn Celestin Erythrocyte distribution width (RBC) [Ratio] 11.9 % Normal 11.0-15.0 [facility] Comment on above: Performed By: #### C BC #### [facility] [address] [place] [address] Dr. Jackelyn Celestin Hematocrit (Bld) [Volume fraction] 33.7 % Critically low 36.0-48.0 [facility] Comment on above: Performed By: #### C BC #### [facility] [address] [place] [address] Dr. Jackelyn Celestin Hemoglobin (Bld) [Mass/Vol] 12.0 g/dL Normal 12.0-16.0 [facility] Comment on above: Performed By: #### C BC #### [facility] [address] [place] [address] Dr. Jackelyn Celestin IG # 0.07 10e3/ul Critically high 0.00-0.03 [facility] Comment on above: Performed By: #### C BC #### [facility] [address] [place] [address] Dr. Jackelyn Celestin IG % 0.6 % Critically high 0.0-0.5 [facility] Comment on above: Performed By: #### C BC #### [facility] [address] [place] [address] Dr. Jackelyn Celestin LYMPH # 1.3 103/ul Normal 1.2-3.8 [facility] Comment on above: Performed By: #### C BC #### [facility] [address] [place] [address] Dr. Jackelyn Celestin Lymphocytes/100 WBC (Bld) 11.5 % Critically low 20.5-60.0 [facility] Comment on above: Performed By: #### C BC #### [facility] [address] [place] [address] Dr. Jackelyn Celestin MANUAL DIFF REQ NO Normal [facility] Comment on above: Performed By: #### C BC #### [facility] [address] [place] [address] Dr. Jackelyn Celestin MCH (RBC) [Entitic mass] 31.0 pg Normal 26.7-34.0 [facility] Comment on above: Performed By: #### C BC #### [facility] [address] [place] [address] Dr. Jackelyn Celestin MCHC (RBC) [Mass/Vol] 35.6 g/dL Critically high 29.9-35.2 [facility] Comment on above: Performed By: #### C BC #### [facility] [address] [place] [address] Dr. Jackelyn Celestin MCV (RBC) [Entitic vol] 87.1 fL Normal 81.0-99.0 [facility] Comment on above: Performed By: #### C BC #### [facility] [address] [place] [address] Dr. Jackelyn Celestin MONO # 0.5 103/ul Normal 0.3-0.8 [facility] Comment on above: Performed By: #### C BC #### [facility] [address] [place] [address] Dr. Jackelyn Celestin Monocytes/100 WBC (Bld) 4.8 % Normal 1.7-12.0 [facility] Comment on above: Performed By: #### C BC #### [facility] [address] [place] [address] Dr. Jackelyn Celestin NEUT # 8.9 103/ul Critically high 1.4-6.5 [facility] Comment on above: Performed By: #### C BC #### [facility] [address] [place] [address] Dr. Jackelyn Celestin Neutrophils/100 WBC (Bld) 81.6 % Critically high 43.0-75.0 [facility] Comment on above: Performed By: #### C BC #### [facility] [address] [place] [address] Dr. Jackelyn Celestin Platelet mean volume (Bld) [Entitic vol] 11.3 fL Normal 9.5-13.5 [facility] Comment on above: Performed By: #### C BC #### [facility] [address] [place] [address] Dr. Jackelyn Celestin PLT 171 103/ul Normal 150-450 [facility] Comment on above: Performed By: #### C BC #### [facility] [address] [place] [address] Dr. Jackelyn Celestin RBC 3.87 106/ul Critically low 4.20-5.40 [facility] Comment on above: Performed By: #### C BC #### [facility] [address] [place] [address] Dr. Jackelyn Celestin WBC 10.9 103/ul Normal 4.0-11.0 [facility] Comment on above: Performed By: #### C BC #### [facility] [address] [place] [address] Dr. Jackelyn Celestin GLUCOSE - 1HRon 05-09-2022 Glucose [Mass/Vol] 142 mg/dL Critically high 74-106 [facility] Comment on above: Performed By: #### 4 [id number] #### [facility] [address] [place] [address] Dr. Jackelyn Celestin PREG BIOPHY W NON STRESSo n 05-09-2022 [...] by: TRISTAN HART Date: 2022-05-09 10:35 Normal [facility] US PREG PLACENTAon 3 US PREG PLACENTA EXAMINATION: US PREG PLACENTA HISTORY: Falls ; mild cramping after falling COMPARISON: Ultrasound anatomy 03/17/2022 FINDINGS: PLACENTA: Posterior without previa, subchorionic hematoma, or abruption. CERVIX LENGTH: Not evaluated. HEART RATE: 158 bpm OTHER: None. IMPRESSION: 1. Unremarkable posterior placenta. No suspicious findings. Electronically authenticated by: TRISTAN HART Date: 2022-05-09 10:29 Normal [facility] US PREG ANATOMY SINGLEon US PREG [...] with growth detailed above. Electronically authenticated by: TRISTANVERONICA HART Date: 2022-03-17 16:29 Normal [facility] HEP B SURFACE ANTIGEN SCREEN on 02-15-2022 HBsAg Screen Negative Normal Negative [facility] Comment on above: Performed By: #### 4 [id number] #### [facility] [address] [address] [address] Jackelyn Celestin HEPATITIS C VIRUS AB W/ REFL EX QUANTon 02-15-2022 HCV AB <0.1 Normal 0.0-0.9 [facility] Comment on above: Performed By: #### H CVPCRR #### [facility] [address] [place] [address] Dr. Jackelyn Celestin Interpretation: Comment Normal [facility] Comment on above: Result Comment: Nega tive Not infected with HCV, unless recent infection is suspected or other evidence exists to indicate HCV infection. Performed By: #### H CVPCRR #### [facility] [address] [address] [address] Jackelyn Celestin HIV 1 AND 2 WITH REFLEXon HIV Screen 4th Generation wRfx Non-Reactive Normal Non Reactive [facility] Comment on above: Result Comment: HIV Negative HIV-1/HIV-2 antibodies and HIV-1 p24 antigen were NOT detected. There is no laboratory evidence of HIV infection. Performed By: #### H IV12 #### [facility] [address] [place] [address] Dr. Jackelyn Celestin RPR QUANTon 02-15-2022 Rapid Plasma Reagin, Quant Non-Reactive Normal NonRea<1:1 [facility] Comment on above: Result Comment: Plea se Note: This test does not meet current guidelines for screening and diagnosis of syphilis. This test is intended for following treatment response in patients being treated for syphilis infection. To screen for syphilis infection, a reflex cascade that includes both RPR and a treponema-specific assay should be utilized, such as Treponema pallidum (Syphilis) Screening [place] (619458) or Rapid Plasma Reagin (RPR) Test With Reflex to Quantitative RPR and Confirmatory Treponema pallidum Antibodies (124997). Performed By: #### R PRQ #### [facility] [address] [place] [address] Dr. Jackelyn Celestin RUBELLA AB IGGon 02-15-2022 Rubella Antibodies, IgG 1.97 index Normal Immune >0.99 [facility] Comment on above: Result Comment: Non- immune <0.90 Equivocal 0.90 - 0.99 Immune >0.99 Performed By: #### R UBIGG #### [facility] [address] [place] [address] Dr. Jackelyn Celestin CBC AUTO DIFFon 02-12-2022 BASO # 0.0 103/ul Normal 0.0-0.1 [facility] Comment on above: Performed By: #### C BC #### [facility] [address] [place] [address] Dr. Jackelyn Celestin Basophils/100 WBC (Bld) 0.4 % Normal 0.2-2.0 [facility] Comment on above: Performed By: #### C BC #### [facility] [address] [place] [address] Dr. Jackelyn Celestin EO # 0.2 103/ul Normal 0.0-0.7 [facility] Comment on above: Performed By: #### C BC #### [facility] [address] [place] [address] Dr. Jackelyn Celestin Eosinophils/100 WBC (Bld) 2.0 % Normal 0.9-7.0 [facility] Comment on above: Performed By: #### C BC #### [facility] [address] [place] [address] Dr. Jackelyn Celestin Erythrocyte distribution width (RBC) [Ratio] 12.8 % Normal 11.0-15.0 [facility] Comment on above: Performed By: #### C BC #### [facility] [address] [place] [address] Dr. Jackelyn Celestin Hematocrit (Bld) [Volume fraction] 40.7 % Normal 36.0-48.0 [facility] Comment on above: Performed By: #### C BC #### [facility] [address] [place] [address] Dr. Jackelyn Celestin Hemoglobin (Bld) [Mass/Vol] 14.4 g/dL Normal 12.0-16.0 [facility] Comment on above: Performed By: #### C BC #### [facility] [address] [place] [address] Dr. Jackelyn Celestin IG # 0.05 10e3/ul Critically high 0.00-0.03 [facility] Comment on above: Performed By: #### C BC #### [facility] [address] [place] [address] Dr. Jackelyn Celestin IG % 0.4 % Normal 0.0-0.5 [facility] Comment on above: Performed By: #### C BC #### [facility] [address] [place] [address] Dr. Jackelyn Celestin LYMPH # 1.7 103/ul Normal 1.2-3.8 [facility] Comment on above: Performed By: #### C BC #### [facility] [address] [place] [address] Dr. Jackelyn Celestin Lymphocytes/100 WBC (Bld) 15.1 % Critically low 20.5-60.0 [facility] Comment on above: Performed By: #### C BC #### [facility] [address] [place] [address] Dr. Jackelyn Celestin MANUAL DIFF REQ NO Normal [facility] Comment on above: Performed By: #### C BC #### [facility] [address] [place] [address] Dr. Jackelyn Celestin MCH (RBC) [Entitic mass] 31.2 pg Normal 26.7-34.0 [facility] Comment on above: Performed By: #### C BC #### [facility] [address] [place] [address] Dr. Jackelyn Celestin MCHC (RBC) [Mass/Vol] 35.4 g/dL Critically high 29.9-35.2 [facility] Comment on above: Performed By: #### C BC #### [facility] [address] [place] [address] Dr. Jackelyn Celestin MCV (RBC) [Entitic vol] 88.1 fL Normal 81.0-99.0 [facility] Comment on above: Performed By: #### C BC #### [facility] [address] [place] [address] Dr. Jackelyn Celestin MONO # 0.4 103/ul Normal 0.3-0.8 [facility] Comment on above: Performed By: #### C BC #### [facility] [address] [place] [address] Dr. Jackelyn Celestin Monocytes/100 WBC (Bld) 3.3 % Normal 1.7-12.0 [facility] Comment on above: Performed By: #### C BC #### [facility] [address] [place] [address] Dr. Jackelyn Celestin NEUT # 8.8 103/ul Critically high 1.4-6.5 [facility] Comment on above: Performed By: #### C BC #### [facility] [address] [place] [address] Dr. Jackelyn Celestin Neutrophils/100 WBC (Bld) 78.8 % Critically high 43.0-75.0 [facility] Comment on above: Performed By: #### C BC #### [facility] [address] [place] [address] Dr. Jackelyn Celestin Platelet mean volume (Bld) [Entitic vol] 11.6 fL Normal 9.5-13.5 [facility] Comment on above: Performed By: #### C BC #### [facility] [address] [place] [address] Dr. Jackelyn Celestin PLT 203 103/ul Normal 150-450 [facility] Comment on above: Performed By: #### C BC #### [facility] [address] [place] [address] Dr. Jackelyn Celestin RBC 4.62 106/ul Normal 4.20-5.40 [facility] Comment on above: Performed By: #### C BC #### [facility] [address] [place] [address] Dr. Jackelyn Celestin WBC 11.2 103/ul Critically high 4.0-11.0 [facility] Comment on above: Performed By: #### C BC #### [facility] [address] [place] [address] Dr. Jackelyn Celestin CULTURE URINEon 02-12-2022 CULTURE URINE Culture Observations : NO GROWTH. Normal [facility] Comment on above: Performed By: #### U RCX #### [facility] [address] [place] [address] Dr. Jackelyn Celestin GLYCOHEMOGLOBIN A1Con 2021 ADA RECOMMENDATION SEE BELOW Normal [facility] Comment on above: Result Comment: ADA RECOMMENDED LIMIT 4.0 - 6.0 ADA THERAPEUTIC TARGET < 7.0 ACTION SUGGESTED > 7.0 Performed By: #### 4 [id number] #### [facility] [address] [place] [address] Dr. Jackelyn Celestin Glucose [Mass/Vol] 94 mg/dL Normal [facility] Comment on above: Performed By: #### 4 [id number] #### [facility] [address] [place] [address] Dr. Jackelyn Celestin HbA1c (Bld) [Mass fraction] 4.9 % Normal 4.5-6.2 [facility] Comment on above: Performed By: #### 4 [id number] #### [facility] [address] [place] [address] Dr. Jackelyn Celestin TYPE AND SCREENon 02-12-2022 TYPE AND SCREEN Negative Normal [facility] Comment on above: Performed By: #### T NS #### [facility] [address] [place] [address] Dr. Jackelyn Celestin US PREG TVon 01-21-2022 [...] by: DONALD AGUILAR Date: 2022-01-21 16:41 Normal [facility] Coding Summary.on 12-12-2019 Coding Summary. CODING DATE: 020 FINAL [facility] STATUS: Home (Routine DC) PAYOR: [...] CphT Date Saved: 12/12/2019 10:59 am Normal [facility] Office/Clini c Noteon 11-21-2019 [...] day(s), # 20 tab(s), Refills(s) 0, Pharmacy: [facility], 159, cm, 11/21/19 19:13:00 EDT, Height/Length Dosing, 96, kg, 11/21/19 19:13:00 EDT, Weight Dosing Follow-up No qualifying data available Patient Education Body Mass Index, BMI DASH Diet MyPlate from [employer] Obesity Otitis Media, Adult Problem List/Past Medical [...] cancer: Grandparent. Hypertension: Grandparent. Stroke: Grandparent. Normal [facility] Comment on above: Result Comment: Elec tronically Signed By: HIEN KIM, SUKHDEEP Reinoso\.ynes\Date and Time Signed: 11/21/19 20:02 EDT Patient [...] Document Reviewed: 01/04/2006 ExitCare? Patient Information ?2013 [employer]. DASH Diet The DASH diet stands for [...] beef, chicken breast, turkey breast. All fish. Sunburst, bake, or broil your meat. Nothing should [...] Document Reviewed: 03/15/2012 ExitCare? Patient Information ?2013 [employer]. [employer], [employer] The amount you need to eat from [...] 06/18/2012 Document Reviewed: 06/16/2008 ExitCare? Patient Information ?2014 [employer] [facility]. Family Medicine Obesity Obesity is defined as [...] 09/25/2012 Document Reviewed: 05/02/2012 ExitCare? Patient Information ?2014 [employer]. Otitis Media, Adult A middle ear infection [...] the first few days. ? Only take vsmy-pxz-gvasdbq or prescription medicines for pain, discomfort, or [...] Document Reviewed: 10/31/2008 ExitCare? Patient Information ?2013 [employer]. Normal [facility] SARS-CoV-2, NAAon 11-20-2019 SARS CORONAVIRUS 2 RNA:PRTHR:PT:RESPIRATO RY:ORD:PROBE.AMP.TAR Not Detected Not Detected [facility] Comment on above: Result Comment: This test was developed and its performance characteristics determined by [employer]. This test has not been FDA cleared [...] detected) result in this assay. Performed at: [facility] [address] [facility] [place] [id number] MD Malaika Velez Performed By: #### S ARS-CoV-2, ALONDRA #### [facility] [address] [place] [address] [facility] Video Visit - Telehealthon 11-16-2019 Family Medicine [...] interactive video communications from my office using [employer] due to the restrictions of the COVID-19 pandemic. No physical exam was conducted other than those areas of the body visible to telecommunications with the patient located at [address] [phone], with no one else in attendance. If [...] cancer: Grandparent. Hypertension: Grandparent. Stroke: Grandparent. Normal [facility] Comment on above: Result Comment: Elec tronically Signed By: SEAN KIM, Abbey Hodges\.ynes\Date and Time Signed: 11/16/19 14:27 EDT URINE CULTUREon 07-10-2017 Urine culture, bacteria SPECIMEN DESCRIPTION URINE CLEAN CATCHUA DIPSTICK NITRITE NEGATIVE * Result Note: LEUKOCYTE NEGATIVE *CULTURE ESCHERICHIA COLI * Result Note: 50,000 C/C/ML * * Result Note: Testing performed at [facility], [place], [place] [address] *REPORT STATUS 07/10/2017 * Result Note: FINAL * O RGANISM ESCHERICHIA COLI * Result Note: ESCHERICHIA COLI *METHOD MICAMPICILLIN <=2 SUSCEPTIBLEAMPICILLIN/SULBA CTAM <=2 SUSCEPTIBLECEFTRIAXONE <=1 SUSCEPTIBLECEFAZOLIN <=4 SUSCEPTIBLEIMIPENEM <=0.25 SUSCEPTIBLEGENTAMICIN <=1 SUSCEPTIBLETRIMETH-SULFA <=20 SUSCEPTIBLEAMOXICILLIN/CLAV ULANIC A <=2 SUSCEPTIBLENITROFURANTOIN 32 SUSCEPTIBLEPIPERACILLIN/SADA OBACTAM <=4 SUSCEPTIBLELEVOFLOXACIN <=0.12 SUSCEPTIBLEESBL NEGATIVECEFTAZIDIME <=1 SUSCEPTIBLE Normal [facility] Comment on above: Performed By: #### A URNC ####Testing performed at [address] [address]Elarrnj performed at [address] [address] BHCG,QUANTITATIVEon 07-08-19 18 BHCG,QUANTITATIVE 133.56 MIU/ML Normal [facility] Comment on above: Result Comment: [facility] [place]: NON FEMALE 0-6 MIU/MLMALE ADULT [...] of urine. Performed By: #### A CBC, BHCG2 ####Testing performed at [address] [address] CBCon 07-07-2017 ABSOLUTE BAS 0.1 X10 Normal [facility] Comment on above: Performed By: #### A CBC, BHCG2 ####Testing performed at [address] [address] ABSOLUTE EOS 0.20 X10 Normal [facility] Comment on above: Performed By: #### A CBC, BHCG2 ####Testing performed at [address] [address] Basophils/100 WBC Auto (Bld) 0.6 % Normal 0.0-2.0 [facility] Comment on above: Performed By: #### A CBC, BHCG2 ####Testing performed at [address] [address] DTYPE AUTO DIFF Normal [facility] Comment on above: Performed By: #### A CBC, BHCG2 ####Testing performed at [address] [address] Eosinophils/100 leukocytes 2.0 % Normal 0.0-11.0 [facility] Comment on above: Performed By: #### A CBC, BHCG2 ####Testing performed at [address] [address] Erythrocyte distribution width Auto Ratio (RBC) 12.1 % Normal 11.5-14.5 [facility] Comment on above: Performed By: #### A CBC, BHCG2 ####Testing performed at [address] [address] Erythrocytes (RBC) 4.72 /cmm Normal 4.0-5.4 [facility] Comment on above: Performed By: #### A CBC, BHCG2 ####Testing performed at [address] [address] Hematocrit (HCT) 43.2 % Normal 36.0-48.0 [facility] Comment on above: Performed By: #### A CBC, BHCG2 ####Testing performed at [address] [address] Hemoglobin mass conc (Bld) 15.1 g/dL Normal 12.0-16.0 [facility] Comment on above: Performed By: #### A CBC, BHCG2 ####Testing performed at [address] [address] Lymphocytes 2.00 X10 Normal [facility] Comment on above: Performed By: #### A CBC, BHCG2 ####Testing performed at [address] [address] Lymphocytes/100 leukocytes 23.0 % Normal 20.0-55.0 [facility] Comment on above: Performed By: #### A CBC, BHCG2 ####Testing performed at [address] [address] MCH 32.0 pg Normal 26.0-35.0 [facility] Comment on above: Performed By: #### A CBC, BHCG2 ####Testing performed at [address] [address] MCHC mass conc (RBC) 35.0 g/dL Normal 27.0-37.0 [facility] Comment on above: Performed By: #### A CBC, BHCG2 ####Testing performed at [address] [address] MCV 91.5 fL Normal 80.0-100.0 [facility] Comment on above: Performed By: #### A CBC, BHCG2 ####Testing performed at [address] [address] Monocytes 0.6 X10 Normal [facility] Comment on above: Performed By: #### A CBC, BHCG2 ####Testing performed at [address] [address] Monocytes/100 leukocytes 7.1 % Normal 0.0-10.0 [facility] Comment on above: Performed By: #### A CBC, BHCG2 ####Testing performed at [address] [address] Neutrophils 5.9 x10 Normal 1.0-7.0 [facility] Comment on above: Performed By: #### A CBC, BHCG2 ####Testing performed at [address] [address] Neutrophils/100 leukocytes 67.3 % Normal 37.0-75.0 [facility] Comment on above: Performed By: #### A CBC, BHCG2 ####Testing performed at [address] [address] Platelet mean volume (PMV) 9.2 fL Normal 7.4-11.0 [facility] Comment on above: Performed By: #### A CBCALEXANDRACG2 ####Testing performed at [address] [address] Platelets 235 /cmm Normal 130.0-400. 0 [facility] Comment on above: Performed By: #### A CBCALEXANDRACG2 ####Testing performed at [address] [address] WBC (Leukocytes) 8.8 /cmm Normal 3.6-11.0 [facility] Comment on above: Performed By: #### A CBCALEXANDRACG2 ####Testing performed at [address] [address] ED NOTEon 07-07-2017 [facility] NOTES Normal [facility] ED PROVIDERon 07-07-2017 [facility] NOTES Normal [facility] URINE MACROSCOPICon 07-08-19 18 Bilirubin Ql (U) Negative Normal NEGATIVE [facility] Comment on above: Performed By: #### U MAC, UMIC ####Testing performed at [address] [address] URINE HEMOGLOBIN LARGE Abnormal NEGATIVE [facility] Comment on above: Performed By: #### U MAC, UMIC ####Testing performed at [address] [address] URINE KETONE Negative Normal NEGATIVE [facility] Comment on above: Performed By: #### U MAC, UMIC ####Testing performed at [address] [address] URINE LEUKOTEST Negative Normal NEGATIVE [facility] Comment on above: Performed By: #### U MAC, UMIC ####Testing performed at [address] [address] URINE NITRATES Negative Normal NEGATIVE [facility] Comment on above: Performed By: #### U MAC, UMIC ####Testing performed at [address] [address] URINE SPEC GRAVITY 1.025 Normal 1.010-1.0 2 5 [facility] Comment on above: Performed By: #### U MAC, UMIC ####Testing performed at [address] [place] [address] URINE TOTAL PROTEIN Negative Normal NEGATIVE [facility] Comment on above: Performed By: #### U MAC, UMIC ####Testing performed at [address] [place] [address] Urine, clarity CLEAR Normal CLEAR [facility] Comment on above: Performed By: #### U MAC, UMIC ####Testing performed at [address] [place] [address] Urine, color YELLOW Normal YELLOW [facility] Comment on above: Performed By: #### U MAC, UMIC ####Testing performed at [address] [place] [address] Urine, glucose presence Negative Normal NEGATIVE [facility] Comment on above: Performed By: #### U MAC, UMIC ####Testing performed at [address] [address] Urine, pH 7.0 [pH] Normal 5.0-7.0 [facility] Comment on above: Performed By: #### U MAC, UMIC ####Testing performed at [address] [place] [address] Urine, urobilinogen 1.0 mg/dl Normal 0.2-1.0 [facility] Comment on above: Performed By: #### U MAC, UMIC ####Testing performed at [address] [place] [address] URINE MICROSCOPICon 07-08-19 18 CRYSTAL OCCASIONAL Abnormal NONE [facility] Comment on above: Result Comment: CHRIS PHOUS PHOSPHATES Performed By: #### U MAC, UMIC ####Testing performed at [address] [place] [address] URINE COMMENT REFLEX CULTURE PER ESTABLISHED CRITERIA. Normal [facility] Comment on above: Performed By: #### U MAC, UMIC ####Testing performed at [address] [place] [address] URINE WBC'S 1 TO 5 Normal NEGATIVE [facility] Comment on above: Performed By: #### U MAC, UMIC ####Testing performed at [address] [place] [address] Urine, bacteria in sediment 1+ Abnormal NEGATIVE [facility] Comment on above: Performed By: #### U MAC, UMIC ####Testing performed at [address] [place] [address] Urine, casts in sediment NONE Normal NONE [facility] Comment on above: Performed By: #### U MAC, UMIC ####Testing performed at [address] [place] [address] Urine, epithelial cells in sediment 1 TO 5 Normal [facility] Comment on above: Performed By: #### U MAC, UMIC ####Testing performed at [address] [place] [address] Urine, erythrocytes 1 TO 5 Normal NEGATIVE [facility] Comment on above: Performed By: #### U MAC, UMIC ####Testing performed at [address] [place] [address] Urine, mucus presence in sediment Negative Normal NEGATIVE [facility] Comment on above: Performed By: #### U MAC, UMIC ####Testing performed at [address] [place] [address] BhCG Quanton 07-05-2017 HCG.beta subunit Qn 238.0 mIU/m Normal [facility] Comment on above: Result Comment: FEMA LE (NON-) & MALE <3 BORDERLINE 3 - 5 SUGGEST REPEAT TESTING FEMALE () 1 D - 1 WK 5 - 50 1 - 2 WK 50 - 500 2 - 3 WK 100 - 5000 3 - 4 WK 500 - 01156 4 - 5 WK 1000 - [address] 5 - 6 WK [address] - 934733 6 - 8 W[place] [address] - 718208 2 - 3 [place] [address] - 427458 Performed By: #### 2 [id number] ####JIMMIE [address] [place] [address] Auto Diffon 07-04-2017 Basophils Auto #/vol (Bld) 0.1 E3/mcL Normal 0.0-0.2 [facility] Comment on above: Order Comment: Order Added by Discern Expert. Performed By: #### 2 [id number] ####JIMMIE CbuMmwe[address] [place] [address] Basophils/100 WBC Auto (Bld) 0.6 % Normal 0.0-2.0 [facility] Comment on above: Order Comment: Order Added by Discern Expert. Performed By: #### 2 [id number] ####JIMMIE DanWltKpop9440 [place] [address] Eos Absolute 0.3 E3/mcL Normal 0.0-0.7 [facility] Comment on above: Order Comment: Order Added by Discern Expert. Performed By: #### 2 038759 ####JIMMIE DanSzzQcky4515 [place] [address] Eosinophils/100 leukocytes 2.5 % Normal 0.0-11.0 [facility] Comment on above: Order Comment: Order Added by Discern Expert. Performed By: #### 2 514419 ####JIMMIE DanDvkOtlr0406 [place] [address] Lymphocytes 2.3 E3/mcL Normal 1.2-3.4 [facility] Comment on above: Order Comment: Order Added by Discern Expert. Performed By: #### 2 [id number] ####JIMMIE DanJkgCgne8643 [place] [address] Lymphocytes/100 leukocytes 22.2 % Normal 20.0-55.0 [facility] Comment on above: Order Comment: Order Added by Discern Expert. Performed By: #### 2 [id number] ####JIMMIE DanBogTdrc0871 [place] [address] [facility] Absolute 0.8 E3/mcL High 0.0-0.7 [facility] Comment on above: Order Comment: Order Added by Discern Expert. Performed By: #### 2 914479 ####JIMMIE DanJfqNgnh1844 [place] [address] Monocytes/100 leukocytes 7.6 % Normal 0.0-10.0 [facility] Comment on above: Order Comment: Order Added by Discern Expert. Performed By: #### 2 909772 ####JIMMIE DanOcyLyjj5144 [place] [address] Neutro Absolute 6.9 E3/mcL High 1.4-6.5 [facility] Comment on above: Order Comment: Order Added by Discern Expert. Performed By: #### 2 086249 ####JIMMIE DanVgzXvwq8396 [place] [address] Neutro Auto 67.1 % Normal 37.0-75.0 [facility] Comment on above: Order Comment: Order Added by Discern Expert. Performed By: #### 2 [id number] ####JIMMIE DanNmiWyra3482 [place] [address] BMPon 07-04-2017 BUN/Creatinine Ratio 21.7 ratio Normal 5.4-30.0 [facility] Comment on above: Performed By: #### 2 [id number] ####JIMMIE KbiXtrx0450 [place] [address] Calcium 8.4 mg/dL Normal 8.4-10.2 [facility] Comment on above: Performed By: #### 2 212285 ####JIMMIE OzdGkmm5214 [place] [address] Chloride 100 mmol/L Normal 98-107 [facility] Comment on above: Performed By: #### 2 478058 ####JIMMIE DjnVsfb7984 [place] [address] CO2 27.7 mmol/L Normal 24.0-30.0 [facility] Comment on above: Performed By: #### 2 364905 ####JIMMIE OboTxbh6807 [place] [address] Creatinine 0.6 mg/dL Normal 0.6-1.3 [facility] Comment on above: Performed By: #### 2 250652 ####JIMMIEJalil DanSwyYwnv1783 [place] [address] Glucose mass conc 98 mg/dL Normal 70-99 [facility] Comment on above: Performed By: #### 2 824092 ####JIMMIEJalil DanIdqYcdw4081 [place] [address] Potassium molar conc 3.4 mmol/L Low 3.5-5.1 [facility] Comment on above: Performed By: #### 2 465250 ####JIMMIEJalil DanZzrMdfi0518 [place] [address] Sodium 133 mmol/L Low 136-145 [facility] Comment on above: Performed By: #### 2 188068 ####JIMMIE DanEkfGqqj2432 [place] [address] Urea nitrogen 13 mg/dL Normal 7-18 [facility] Comment on above: Performed By: #### 2 136072 ####JIMMIE NftSdim1319 [place] [address] BhCG Quanton 07-04-2017 HCG.beta subunit Qn 190.8 mIU/m Normal [facility] Comment on above: Result Comment: FEMA LE (NON-) & MALE <3 BORDERLINE 3 - 5 SUGGEST REPEAT TESTING FEMALE () 1 D - 1 WK 5 - 50 1 - 2 WK 50 - 500 2 - 3 WK 100 - 5000 3 - 4 WK 500 - 16128 4 - 5 WK 1000 - [address] 5 - 6 WK [address] - 232664 6 - 8 W[place] [address] - 263629 2 - 3 [place] [address] - 096251 Performed By: #### 2 225131 ####JIMMIE XkbZgxj2290 [place] [address] CBC w/ Auto Diffon 8 Erythrocyte distribution width Auto Ratio (RBC) 11.6 % Normal 11.5-14.5 [facility] Comment on above: Performed By: #### 2 [id number] ####JIMMIEJalil DanBgbKfbf8214 [place] [address] Erythrocytes (RBC) 4.43 E6/mcL Normal 3.90-5.40 [facility] Comment on above: Performed By: #### 2 534150 ####JIMMIEJalil OzunaWmfUinm6115 [place] [address] Hematocrit (HCT) 40.1 % Normal 36.0-48.0 [facility] Comment on above: Performed By: #### 2 039771 ####JIMMIEJalil DanGfaKrws7642 [place] [address] Hemoglobin mass conc (Bld) 14.1 g/dL Normal 12.0-16.0 [facility] Comment on above: Performed By: #### 2 396238 ####JIMMIEJalil DanKebZhad5284 [place] [address] MCH 31.7 pg High 27.0-31.0 [facility] Comment on above: Performed By: #### 2 [id number] ####JIMMIE Ozunao1025 [place] [address] MCHC mass conc (RBC) 35.1 g/dL Normal 33.0-37.0 [facility] Comment on above: Performed By: #### 2 681357 ####JIMMIE Ozunao[address] [place] [address] MCV 90.4 fL Normal 78.0-100.0 [facility] Comment on above: Performed By: #### 2 541438 ####JIMMIE Ozunao[address] [place] [address] Platelet mean volume (PMV) 8.4 fL Normal 7.4-11.0 [facility] Comment on above: Performed By: #### 2 687061 ####JIMMIE Ozunao[address] [place] [address] Platelets 232 E3/mcL Normal 130-400 [facility] Comment on above: Performed By: #### 2 420803 ####JIMMIE Ozunao[address] [place] [address] WBC (Leukocytes) 10.3 E3/mcL Normal 3.6-11.0 [facility] Comment on above: Performed By: #### 2 [id number] ####JIMMIE Ozunao[address] [place] [address] Hep Func Panelon 07-04-2017 Alanine aminotransferase (ALT) 15 Int._Unit/L Normal 10-40 [facility] Comment on above: Performed By: #### 2 117132 ####JIMMIE HryTpgx6603 [place] [address] Albumin 3.8 g/dL Normal 3.2-5.0 [facility] Comment on above: Performed By: #### 2 887210 ####JIMMIE KxyNceq7290 [place] [address] Albumin/Globulin Ratio 1.4 {ratio} Normal 1.1-1.9 [facility] Comment on above: Performed By: #### 2 [id number] ####JIMMIE OqvKdzk6330 [place] [address] Alk Phos 36 Int._Unit/L Low 42-121 [facility] Comment on above: Performed By: #### 2 151005 ####JIMMIE TrsQsju0817 [place] [address] Aspartate aminotransferase (AST) 18 Int._Unit/L Normal 10-42 [facility] Comment on above: Performed By: #### 2 843214 ####JIMMIE Gresham[address] [place] [address] Bili Direct <.10 Normal .00-.20 [facility] Comment on above: Performed By: #### 2 203272 ####JIMMIE RkmQykn9126 [place] [address] Bili Indirect >0.7 Normal [facility] Comment on above: Result Comment: No e stablished ranges available for the Indirect Biliruben. Performed By: #### 2 [id number] ####JIMMIE LtwQsew4715 [place] [address] Bili Total 0.8 mg/dL Normal 0.2-1.0 [facility] Comment on above: Performed By: #### 2 621321 ####JIMMIEJalil DanOuyJeqz5326 [place] [address] Globulin 2.8 g/dL Normal 2.0-4.0 [facility] Comment on above: Performed By: #### 2 213292 ####JIMMIE ZhwKjla7267 [place] [address] Protein 6.6 g/dL Normal 6.4-8.3 [facility] Comment on above: Performed By: #### 2 [id number] ####JIMMIE [id number] [place] [address] Lipase Levelon 07-04-2017 Lipase Lvl 19 U/L Normal 8-57 [facility] Comment on above: Performed By: #### 2 [id number] ####JIMMIE [id number] [place] [address] U BhCG Qlton 07-04-2017 HCG.beta subunit Qn Positive Normal Neg [facility] Comment on above: Performed By: #### 2 [id number] ####JIMMIE Urinalysis Manual [address]ipb4231 [place] [address] UA Completeon 07-04-2017 UA Blood 3+ Normal Negative [facility] Comment on above: Performed By: #### 8 [id number] ####JIMMIE Urinalysis Automated Yzdcsvyaqr3054 [place] [address] UA Bacteria Trace Abnormal None [facility] Comment on above: Performed By: #### 8 [id number] ####JIMMIE Urinalysis Automated [address] [place] [address] UA Clarity SltCloudy Abnormal Clear [facility] Comment on above: Performed By: #### 8 [id number] ####JIMMIE Urinalysis Automated Dul[address]grxx3504 [place] [address] UA Leuk Est Trace Normal Negative [facility] Comment on above: Performed By: #### 8 [id number] ####JIMMIE Urinalysis Automated [address] [place] [address] UA Mucous Occasional Abnormal Trace [facility] Comment on above: Performed By: #### 8 [id number] ####JIMMIE Urinalysis Automated [address] [place] [address] UA Nitrite Negative Normal Negative [facility] Comment on above: Performed By: #### 8 [id number] ####JIMMIE Urinalysis Automated [address] [place] [address] UA pH 5.0 Normal 4.6-8.0 [facility] Comment on above: Performed By: #### 8 [id number] ####JIMMIE Urinalysis Automated [address]r6512 [place] [address] UA Protein Negative Normal Negative [facility] Comment on above: Performed By: #### 8 [id number] ####JIMMIE Urinalysis Automated [address]ynxsxgx5289 [place] [address] UA Spec Grav 1.027 Normal 1.003-1.03 0 [facility] Comment on above: Performed By: #### 8 [id number] ####JIMMIE Urinalysis Automated [address] [place], [place] [id number] UA Squam Epithelial 0-5 Normal 0-5 [facility] Comment on above: Performed By: #### 8 [id number] ####JIMMIE Urinalysis Automated [address] [place] [address] UA Urobilinogen Negative Normal [facility] Comment on above: Performed By: #### 8 [id number] ####JIMMIE Urinalysis Automated [address]is3824 [place] [address] UA WBC 10-20 Abnormal 0-5 [facility] Comment on above: Performed By: #### 8 [id number] ####JIMMIE Urinalysis Automated [address] [place] [id number] Urine, color Yellow Normal Yellow [facility] Comment on above: Performed By: #### 8 [id number] ####JIMMIE Urinalysis Automated [address]c8318 [place] [address] Urine, erythrocytes 5-10 Abnormal 0-3 [facility] Comment on above: Performed By: #### 8 [id number] ####JIMMIE Urinalysis Automated [address] [place] [address] Urine, glucose Negative Normal Negative [facility] Comment on above: Performed By: #### 8 [id number] ####JIMMIE Urinalysis Automated [address]xe[address]jl7187 [place] [address] Urine, ketones presence Negative Normal Negative [facility] Comment on above: Performed By: #### 8 [id number] ####JIMMIE Urinalysis Automated [address]2124 [place] [address] Urine, urobilinogen Negative Normal Negative [facility] Comment on above: Performed By: #### 8 [id number] ####JIMMIE Urinalysis Automated [address] [place] [id number] eGFRon 07-04-2017 eGFR (non-black) mL/min/{1.73_m2} Normal [facility] Comment on above: Order Comment: Order added by Discern Expert. Performed By: #### 1 [id number] ####JIMMIE NigZlbv0584 [place] [address] Social History Date Type Detail Facility Start: 05-16-2023 Alcohol intake Lifetime non-d yrn (finding) [facility] Start: 04-20-2023 End: 05-04-2023 Alcohol intake Ex-drinker (finding) [facility] Start: 05-21-2020 End: 04-20-2023 History of Social function [facility] Start: 05-21-2020 End: 04-20-2023 Tobacco use panel [facility] Start: 03-30-2023 End: 05-16-2023 Tobacco use and exposure Smokeless tobacco non-user [facility] Start: 03-10-2023 End: 03-30-2023 Tobacco smoking status NHIS Never smoked tobacco (finding) [facility] Start: 02-10-2023 [facility] Start: 2000 Sex Assigned At Female F [facility] Start: 2000 Sex Assigned At Not on file P [facility] Housing Instability Unknown [facility] Vital Signs Date Time Vital Sign Value Performing Clinician Cong reynolds 04-20-2023 14:07-0500 Diastolic blood pressure 75 mm[Hg] [facility] [address] [place] [address] 04-20-2023 14:07-0500 Heart rate 93 /min [facility] [address] [place] [address] 04-20-2023 14:07-0500 Respiratory rate 18 /min [facility] [address] [place] [address] 04-20-2023 14:07-0500 SaO2% (BldA) [Mass fraction] 99 % [facility] [address] [place] [address] 04-20-2023 14:07-0500 Systolic blood pressure 127 mm[Hg] [facility] [address] [place] [address] 04-20-2023 14:06-0500 Body height 160 cm [facility] [address] [place] [address] 04-20-2023 14:06-0500 Body mass index (BMI) [Ratio] 37.22 kg/m2 [facility] [address] [place] [address] 04-20-2023 14:06-0500 Body temperature 97.7 [degF] [facility] [address] [place] [address] 04-20-2023 14:06-0500 Body weight 95.3 kg [facility] [address] [place] [address] 03-10-2023 23:05-0500 Diastolic blood pressure 80 mm[Hg] Supriya Cerrato Work Phone: [facility] 03-10-2023 23:05-0500 Heart rate 100 /min Supriya Cerrato Work Phone: [facility] 03-10-2023 23:05-0500 Respiratory rate 20 /min Supriya Cerrato Work Phone: [facility] 03-10-2023 23:05-0500 SaO2% (BldA) [Mass fraction] 98 % Supriya Cerrato Work Phone: [facility] 03-10-2023 23:05-0500 Systolic blood pressure 137 mm[Hg] Supriya Cerrato Work Phone: [facility] 03-10-2023 17:38-0500 Body temperature 97.9 [degF] Supriya Cerrato Work Phone: [facility] 03-10-2023 17:32-0500 Body height 160.02 cm Supriya Cerrato Work Phone: [facility] 03-10-2023 17:32-0500 Body weight 95 kg Supriyajalil Cerrato Work Phone: [facility] History of Present illness Narrative 05-22-2023 Gerson Avalos MD - 05/22/2023 3:15 PM EST Note Date & Type Note Facility 05-22-2023 History of Presen t illness Narrative Images from the original note were not included. Subjective: Dary Post presents to the clinic nearly 2 weeks [...] up: As needed documented in this encounter [facility] [facility] Instructions 04-20-2023 Patient Instructions Note Date & Type Note Facility 04-20-2023 Instructions Terri Estrada RN - 04/20/2023 1:45 PM EST Your surgery/procedure is scheduled at [facility] on 05/04/23 at [address] [facility] Address: [address] [place] [address]. [place] [address] Park in [address] Parking lot located on [facility]. Report to the Entrance B. Check in at the information desk the surgery. The waiting room located on the second floor. If you have any questions prior to surgery, please call Pre-Admission Clinic at [phone] between 7:30 am and 4:30 pm Monday through Monday. If you have questions the morning of surgery, please call the Pre-op Department at [phone]. PLEASE FOLLOW THESE INSTRUCTIONS OR YOUR SURGERY [...] would like to schedule therapy at a [facility] facility, please call [phone] ([phone]). Do not use lotions, creams, powders, perfume, make up, cologne or after-shaves day of surgery. Remove ALL jewelry including wedding rings, body piercings,hair extensions that contain metal, nail armenian, make-up, and contact lens. You may brush [...] RIGHTS AND RESPONSIBILITIES As a patient at [facility], you have the right to: Receive medical care and be informed of who is taking care of you Be treated with dignity and respect Have a family member/loan representative of choice and your physician notified of your admission Receive information and actively participate in decisions about your care and treatment Refuse care, treatment and services Decide who may provide your support and speak for you Access bahai and spiritual services Participate in ethical issues [...] of hospital charges and payment methods Patient/patient loan representative responsibilities are to: Provide information about [...] in clean clothes. documented in this encounter [facility] Note 04-20-2023 Perioperative Nursing Note - Lexi Reddy RN - 04/20/2023 1:45 PM EST Note Date & Type Note Facility 04-20-2023 Miscellaneous Notes Formattin g of this note might be different from the original. Appt reminder call done-message left documented in this encounter [facility] Nurse Note 04-20-2023 Perioperative Nursing Note - Lexi Reddy RN - 04/20/2023 1:45 PM EST Note Date & Type Note Facility 04-20-2023 Nurse Note Appt reminder call done-message left [facility] Evaluation note Note Date & Type Note Facility Evaluation note No assessment information [facility] Work Phone: Evaluation note Note Date & Type Note Facility Evaluation note Diagnosis Status post laparoscopic cholecystectomy- Primary Other postprocedural status documented in this encounter [facility] Hospital Discharge instructions Note Date & Type Note Facility Hospital Discharge instructions Additional Instructions Return if symptoms are worse Continue your Zofran and Reglan at home and will add Phenergan for vomiting Follow-up with your surgeon [facility] Work Phone: Instructions Attachments Note Date & Type Note Facility Instructions The following attachments cannot be sent through Care Everywhere.Cholecystectomy Discharge Instructions (Amharic)documented in this encounter [facility] Summary Purpose Family History No Family History [...] section and content) DATE CREATED AUTHOR 09/28/2017 [facility] DATE CREATED AUTHOR AUTHOR'S ORGANIZ ATION 09/29/2017 [facility] DATE CREATED AUTHOR AUTHOR'S ORGANIZ ATION 04/16/2020 [facility] DATE CREATED AUTHOR AUTHOR'S ORGANIZ ATION 08/24/2022 [facility] DATE CREATED AUTHOR AUTHOR'S ORGANIZ ATION 03/21/2023 [facility] DATE CREATED AUTHOR AUTHOR'S ORGANIZ ATION 05/24/2023 [facility] DATE CREATED AUTHOR AUTHOR'S ORGANIZ ATION 09/02/2023 [facility] EPIC Care Teams (unrecognized sec tion and content) Team Status: Active Member Role Status Dates Supriya Cerrato Primary Care Provider Active Team Status: Inactive Member Role Status Dates Supriya Cerrato Primary Care Provider Active Jacky Alarcon MD Emergency Provider Active [employer] Relationship Specialty Start Date End Date Supriya Cerrato, RAIL TRANSIT OPERATOR-CPO [address] [place] [id number] PCP - General Nurse Practitioner 03/30/23 [employer] Relationship Specialty Start Date End Date Supriya Cerrato, RAIL TRANSIT OPERATOR-CPO [address] [place] [address] PCP - General Nurse Practitioner 03/30/23 Goals [...] BE BASED ON THE PRIMARY CLINICAL RECORDS. [employer] [facility]. provides no warranty or guarantee of the accuracy or completeness of information in this document.
--- NOTE | 2023-09-13 12:49 | US_ITS ---
[address] [address] Patient Name: EDISON ASHLEY MRN: [id number] date: 2000 Sex: F Assigned Patient Location: [facility] Current Patient Location: [facility] Accession/Order Number: [id number] Exam Date: 09/13/2023 12:50 Report Date: 09/13/2023 13:57 At the request of: XIN GRULLON Procedure: US OB BPP w non-stress EXAMINATION: US OB BPP w non-stress HISTORY: Excessive growth COMPARISON: Ultrasound OB growth 08/30/2023 TECHNIQUE: Ultrasound biophysical profile was performed in the radiology department. BREATHING MOVEMENTS: 2.0 GROSS BODY MOVEMENTS: 2.0 TONE: 2.0 QUALITATIVE AMNIOTIC FLUID VOLUME: 2.0 PRESENTATION: CEPHALIC HEART RATE: 147.5 bpm bpm. AMNIOTIC FLUID VOLUME: 11.4 cm GESTATIONAL AGE: 32 weeks 5 days CONCLUSION: Total biophysical profile score 8.0. Electronically authenticated by: PAM SALAZAR Date: 09/13/2023 13:57
--- NOTE | 2023-09-13 12:49 | US_ITS ---
[address] [address] Patient Name: EDISON ASHLEY MRN: [id number] date: 2000 Sex: F Assigned Patient Location: US Current Patient Location: Accession/Order Number: [id number] Exam Date: 09/13/2023 12:50 Report Date: 09/13/2023 14:02 At the request of: XIN GRULLON Procedure: US OB growth EXAMINATION: US OB growth HISTORY: Excessive growth COMPARISON: Ultrasound OB growth 08/30/2023 FINDINGS: Heart Rate: 147.5 bpm Number: 1.0 Position: CEPHALIC Amniotic Fluid Volume: 11.4 cm Maximum Vertical Pocket: 3.9 cm BIOMETRY: BPD: 8.8 cm cm; 35 weeks 5 days; >97% HC: 32.9 cmcm; 37 weeks 3 days ; >97% AC: 30.3 cm cm; 34 weeks 2 days; 88% FL: 6.5 cm cm; 33 weeks 4 days; 63% EFW: 2450.1 grams; 90% FL/AC: 21.5 FL/BPD: 73.9 HC/AC: 1.1 GESTATIONAL AGE: Age by EDC: 32 weeks 5 days LILIAN by EDC: 11/03/2023 Age by US: 35 weeks 2 days LILIAN by US: 10/16/2023 US/US OB growth IMPRESSION: 1. Single live intrauterine with growth detailed above. 2. BPD and HC are both greater than 97th percentile. 3. Fluid-filled stomach and loops of bowel. Electronically authenticated by: PAM SALAZAR Date: 09/13/2023 14:02
[2023-09-13 13:27] VITALS: BP 129/76; PULSE 107
== END 2023-09-13 14:00 ==
LOC: US 07:00 → FBC 13:15
PROVIDERS: Visit Provider Obstetrics & Gynecology
DX: O36.63X0 Maternal care for excessive fetal growth, third trimester, not applicable or unspecified (principal); Z3A.35 35 weeks gestation of pregnancy
CPT/HCPCS: 76816; 76818

== ENCOUNTER 2023-09-20 07:00 | Outpatient (OUT) | payer OTHER, SELFPAY ==
--- OUTSIDE RECORDS SUMMARY | 2023-09-16 10:17 | XMS_ITS | CCD ---
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 Name Role Phone Crucible, Dickson W Unavailable Unavailable Galdino, Dickson W Unavailable Unavailable No Doctor Assigned, Nodr Unavailable Unavail able Crucible, Dickson W Unavailable Unavailable Crucible, Dickson W Unavailable Unavailable No Doctor Assigned, Nodr Unavailable Unavail able SHEMAR ., STEFAN Admitting Unavailable SHEMAR ., STEFAN Consulting Unavailable AICHHOLZ, HORTICULTURAL FARMWORKER SUPRIYA Primary Care Unavailable SHEMAR ., STEFAN Attending Unavailable MORTEZA ., DR LAUREN Admitting Unavailable SHEMAR ., STEFAN Consulting Unavailable AICHHOLZ, HORTICULTURAL FARMWORKER SUPRIYA Primary Care Unavailable MORTEZA ., DR LAUREN Attending Unavailable SHEMAR ., STEFAN Admitting Unavailable SHEMAR ., STEFAN Consulting Unavailable SHEMAR ., STEFAN Attending Unavailable AICHHOLZ, HORTICULTURAL FARMWORKER SUPRIYA Primary Care Unavailable AICHHOLZ, HORTICULTURAL FARMWORKER SUPRIYA Primary Care Unavailable MORTEZA ., DR LAUREN Attending Unavailable MORTEZA ., DR LAUREN Admitting Unavailable MORTEZA ., DR LAUREN Admitting Unavailable MORTEZA ., DR LAUREN Attending Unavailable AICHHOLZ, HORTICULTURAL FARMWORKER SUPRIYA Primary Care Unavailable MORTEZA ., DR LAUREN Consulting Unavailable KARASIK ., DR MURPHY Attending Unavailabl e AICHHOLZ, HORTICULTURAL FARMWORKER SUPRIYA Primary Care Unavailable KARASIK ., DR [...] MORTEZA ., DR LAUREN Consulting Unavailable AICHHOLZ, HORTICULTURAL FARMWORKER SUPRIYA Primary Care Unavailable MORTEZA ., DR LAUREN Attending Unavailable Zieber, Tristan Consulting Unavailable MORTEZA ., DR LAUREN Consulting Unavailable REQUEST, DR NONE LISTED Primary Care Unavaila ble MORTEZA ., DR LAUREN Attending Unavailable MORTEZA ., DR LAUREN Admitting Unavailable ZiebTristan diaz Consulting Unavailable MORTEZA ., DR LAUREN Admitting Unavailable AICHHOLZ, HORTICULTURAL FARMWORKER SUPRIYA Primary Care Unavailable MORTEZA ., DR LAUREN Attending Unavailable [place], DR DONALD Bryan Consulting Unavailable MORTEZA ., DR LAUREN Consulting Unavailable MORTEZA ., DR LAUREN Admitting Unavailable AICHHOLZ, HORTICULTURAL FARMWORKER SUPRIYA Primary Care Unavailable MORTEZA ., DR LAUREN Attending Unavailable MORTEZA ., DR LAUREN Consulting Unavailable SHEMAR ., STEFAN Attending Unavailable SHEMAR ., STEFAN Admitting Unavailable Zieber, Tristan Consulting Unavailable REQUEST, DR NONE LISTED Primary Care Unavaila ble SHEMAR ., STEFAN Consulting Unavailable MORTEZA ., DR LAUREN Admitting Unavailable MORTEZA ., DR LAUREN Consulting Unavailable MORTEZA ., DR LAUREN Attending Unavailable AICHHOLZ, HORTICULTURAL FARMWORKER SUPRIYA Primary Care Unavailable Paula Cerratoa J Primary Care Provider [phone] MD Jacky Alarcon Emergency Provider [phone] Jacky Alarcon Attending Unavailable Jacky Alarcon Admitting Unavailable Supriya Cerrato Primary Care Unavailable Aichholz CHARGE HISTOTECHNOLOGIST-HORTICULTURAL FARMWORKER, Supriya Govea Primary Care Provider Unavailable Primary Care Provider Unavailabl e AL-JUBOURI, PA A Referring Unavailabl e AICHHOLAngie, SUPRIYA J Primary Care Unavailable AL-JUBOURI, PA A Admitting Unavailabl e AL-JUBOURI, PA A Attending Unavailabl e AL-JUCALVINI, PA A Referring Unavailabl e AICHHOLZ, SUPRIYA J Primary Care Unavailable AL-NANYI, PA A Attending Unavailabl e AICHHOLAngie, SUPRIYA J Primary Care Unavailable SUKI ELI Attending Unavailable AICHHOLZ, SUPRIYA J Primary Care Unavailable AL-NANYI, PA A Attending Unavailabl e AICHHOLAngie, SUPRIYA J Referring Unavailable SUPRIYA CERRATO Primary Care Unavailable XIN PRO Attending Unavailable XIN PRO Attending Unavailable MORTEZA, XIN Attending Unavailable XIN PRO Attending Unavailable STEFAN STATON Attending Unavailable MORTEZA, XIN Attending Unavailable MORTEZA, XIN Attending Unavailable STEFAN STATON Attending Unavailable XIN PRO Attending Unavailable Allergies Allergy Classification Reported Allergen(s) Allergy Type Date of Onset Reaction(s) Facility (1 source) No Known Medication Allergies; Translations: [No Known Medication Allergies] Propensity to adverse reactions to drug (disorder) [facility] Repository Medications Current Medications Medication Drug [...] or unspecified; Translations: [MAT CARE EXCSS FT GRTH 3RD TRI UNS] Onset: 06-06-2022 Episodic Other [...] 2.0 % 0.9 - 7.0 % [facility] Erythrocyte distribution width (RBC) [Ratio] 12.8 % 11.0 - 15.0 % [facility] Hematocrit (Bld) [Volume fraction] 39.3 % 36.0 - 48.0 % [facility] Hemoglobin (Bld) [Mass/Vol] 14.1 g/dL 12.0 - 16.0 g/dL [facility] IMMATURE GRANULOCYTES ABS AUTO 0.07 High [facility] Immature granulocytes/100 WBC (Bld) 0.7 % High 0.0 - 0.5 % [facility] Interpretation and review of laboratory results Abnormal [facility] LYMPHOCYTES ABSOLUTE AUTO 2.0 [facility] Lymphocytes/100 WBC (Bld) 19.1 % Low 20.5 - 60.0 % [facility] MCH (RBC) [Entitic mass] 32.0 pg 26.7 - 34.0 pg [facility] MCHC (RBC) [Mass/Vol] 35.9 g/dL High 29.9 - 35.2 g/dL [facility] MCV (RBC) [Entitic vol] 89.3 fL 81.0 - 99.0 fL [facility] MONOCYTES ABSOLUTE AUTO 0.5 [facility] Monocytes/100 WBC (Bld) 4.7 % 1.7 - 12.0 % [facility] NEUTROPHILS ABSOLUTE AUTO 7.6 High [facility] Neutrophils/100 WBC (Bld) 73.2 % 43.0 - 75.0 % [facility] Platelet mean volume (Bld) [Entitic vol] 11.4 fL 9.5 - 13.5 fL [facility] TBH EO # 0.2 [facility] TB PLT [address] [facility] RBC 4.40 [facility] WBC 10.4 [facility] Surgical Pathologyon 024 Surgical Pathology Normal [facility] Comment on above: Result Comment: [facility] [address] [place] [address] Surgical Pathology Consultation Patient Name:DARY ASHLEY:2000 (Age: 23)Gender:FTaken:4Reported:4Physician(s):GERSON Kelsey To: Rec. 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 No evidence of malignancy or dysplasia. Cholelithiasis. Report Electronically Signed Out ao/05/12/2023olamide Moreno MD Interpretation performed at [facility], [address] [place] [address], License number: [id number]. Clinical History Cholelithiasis. Gross Description Received in [...] congested, hemorrhagic and velvety in the neck. Furnishings Conservator sections are submitted in cassettes A- B, as: A- cystic duct margin and education courses sales representative ragged defects,B- education courses sales representative neck body and fundus. After initial microscopic evaluation, additional sections are submitted in cassettes C-E. (5,ss,[id number], m6) MARYJANE/MD chairezw/05/04/2023SSI Specimen(s) Received Gallbladder Fee Codes(s): 1; 57724 gall bladderon 03-11-2023 gall bladder [facility] [address] [place] [id number] Ultrasound Report Signed Patient: Dary Ashley MR#: [id number] : 2000 Acct:[id number] Age/Sex: 22 / F ADM Date: 03/10/23 Loc: ER Room: Type: [facility] ER Attending Dr: Ordering Provider: [...] Nataliia Scott M.D.03/11/2023 8:10 AM Dictation Location: [place] [address] Tech: Isi Federico Transcribed By: RONI 03/11/23 0810 Dictated By: Nataliia Scott MD 03/11/23 0807 Signed By: 03/11/23 0810 Normal [facility] Alanine aminotransferase [En zymatic activity/volume] in Serum or PlasmaOrdered By: Jacky Alarcon on 03-10-2023 ALT [Catalytic activity/Vol] 36 U/L 7-52 [facility] Albumin [Mass/volume] in Ser um or Plasma by Bromocresol green (BCG) dye binding methoOrdered By: Jacky Alarcon on 03-10-2023 Albumin BCG dye [Mass/Vol] 4.5 g/dL 3.5-5.7 [facility] Alkaline phosphatase [Enzyma tic activity/volume] in Serum or PlasmaOrdered By: Jacky Alarcon on 03-10-2023 ALP [Catalytic activity/Vol] 71 U/L 34-104 [facility] Aspartate aminotransferase [ Enzymatic activity/volume] in Serum or PlasmaOrdered By: Jacky Alarcon on 03-10-2023 AST [Catalytic activity/Vol] 17 U/L 13-39 [facility] Automated erythrocytes count in urine sediment (number/area)Ordered By: Jacky Alarcon on 03-10-2023 RBC Auto (Urine sed) [#/Area] 50-100 [HPF] 0-4 [facility] Automated leukocytes count i n urine sediment (number/area)Ordered By: Jacky Alarcon on 03-10-2023 WBC Auto (Urine sed) [#/Area] 5-9 [HPF] 0-4 [facility] Basic Metabolic Panelon Anion gap [Moles/Vol] 16.5 mmol/L High 6.0-15.0 [facility] Comment on above: Performed By: #### L IPASE, HCGQNT, HEPATIC, BMP, CBC #### [facility] [address] Calcium [Mass/Vol] 9.3 mg/dL Normal 8.6-10.3 [facility] Comment on above: Performed By: #### L IPASE, HCGQNT, HEPATIC, BMP, CBC #### [facility] [address] [place] [address] [place] Chloride [Moles/Vol] 101 mmol/L Normal 98-107 [facility] Comment on above: Performed By: #### L IPASE, HCGQNT, HEPATIC, BMP, CBC #### [facility] [address] [place] [address] [place] CO2 [Moles/Vol] 18.8 mmol/L Low 21.0-31.0 [facility] Comment on above: Performed By: #### L IPASE, HCGQNT, HEPATIC, BMP, CBC #### [facility] [address] [place] [address] [place] Creatinine [Mass/Vol] 0.64 mg/dL Normal 0.60-1.20 [facility] Comment on above: Performed By: #### L IPASE, HCGQNT, HEPATIC, BMP, CBC #### [facility] [address] [place] [address] [place] Creatinine Clr Calc Pharmacy 148.58 Normal [facility] Comment on above: Performed By: #### L IPASE, HCGQNT, HEPATIC, BMP, CBC #### [facility] [address] [place] [address] [place] GFR/1.73 sq M.predicted MDRD (S/P/Bld) [Vol rate/Area] mL/min/{1.73_m2} Normal [facility] Comment on above: Performed By: #### L IPASE, HCGQNT, HEPATIC, BMP, CBC #### [facility] [address] Glucose [Mass/Vol] 83 mg/dL Normal 70-100 [facility] Comment on above: Result Comment: [facility] Glucose Reference Range is dependent on time and content of last meal. Glucose of more than 200 mg/dL in a nonstressed, ambulatory subject supports the diagnosis of Diabetes Mellitus. ADA recommended reference range Performed By: #### L IPASE, HCGQNT, HEPATIC, BMP, CBC #### [facility] [address] [place] [address] Potassium [Moles/Vol] 3.3 mmol/L Low 3.5-5.1 [facility] Comment on above: Performed By: #### L IPASE, HCGQNT, HEPATIC, BMP, CBC #### [facility] [address] Sodium [Moles/Vol] 133 mmol/L Low 136-145 [facility] Comment on above: Performed By: #### L IPASE, HCGQNT, HEPATIC, BMP, CBC #### [address] Urea nitrogen [Mass/Vol] 6 mg/dL Low 7-25 [facility] Comment on above: Performed By: #### L IPASE, HCGQNT, HEPATIC, BMP, CBC #### [facility] [address] [place] [address] Basophils Auto (Bld) [#/Vol] Ordered By: Jacky Alarcon on 03-10-2023 Basophils (Bld) [#/Vol] 0.1 10*3/uL 0.0-0.2 [facility] Basophils/100 WBC Auto (Bld) Ordered By: Jacky Alarcon on 03-10-2023 Basophils/100 WBC (Bld) 0.4 % . [facility] Bilirubin Test strip Ql (U)O rdered By: Jacky Alarcon on 03-10-2023 Bilirubin Ql (U) Negative Negative [facility] Bilirubin.direct [Mass/volum e] in Serum or PlasmaOrdered By: Jacky Alarcon on 03-10-2023 Bilirubin.direct [Mass/Vol] 0.40 mg/dL 0.03-0.18 [facility] Bilirubin.total [Mass/volume ] in Serum or PlasmaOrdered By: Jacky Alarcon on 03-10-2023 Bilirubin [Mass/Vol] 1.2 mg/dL 0.3-1.0 [facility] Calcium [Mass/volume] in Ser um or PlasmaOrdered By: Jacky Alarcno on 03-10-2023 Calcium [Mass/Vol] 9.3 mg/dL 8.6-10.3 [facility] Carbon dioxide, total [Moles /volume] in Serum or PlasmaOrdered By: Jacky Alarcon on 03-10-2023 CO2 [Moles/Vol] 18.8 mmol/L 21.0-31.0 [facility] Chloride [Moles/volume] in S rahul or PlasmaOrdered By: Jacky Alarcon on 03-10-2023 Chloride [Moles/Vol] 101 mmol/L 98-107 [facility] Choriogonadotropin.beta subu nit [Units/volume] in Serum or PlasmaOrdered By: Jacky Alarcon on 03-10-2023 [place] [address].00 m[IU]/mL [facility] Comment on above: Approximate Approxim ate hCG Gestational Age Range (mIU/ml) (weeks)0.2-1 5-50 1-2 50-500 2-3 100-5,000 3-4 500-10,000 4-5 1,000-50,000 5-6 10,000-100,000 6-8 15,000-200,000 8-12 10,000-100,000 Color Auto (U)Ordered By: Corinna Alarcon on 03-10-2023 Color (U) Dark yellow Yellow [facility] Complete Blood Count Auto Di ffon 03-10-2023 Basophils (Bld) [#/Vol] 0.1 10*3/uL Normal 0.0-0.2 [facility] Comment on above: Result Comment: PERF ORMED BY: [facility] [address] [place] [address] PATHOLOGIST PLUG PASTER ANDRÉS MACEDO M.D. Performed By: #### L IPASE, HCGQNT, HEPATIC, BMP, CBC #### [address] Basophils/100 WBC (Bld) 0.4 % Normal . [facility] Comment on above: Performed By: #### L IPASE, HCGQNT, HEPATIC, BMP, CBC #### [address] Eosinophils (Bld) [#/Vol] 0.1 10*3/uL Normal 0.0-0.45 [facility] Comment on above: Performed By: #### L IPASE, HCGQNT, HEPATIC, BMP, CBC #### [address] Eosinophils/100 WBC (Bld) 0.5 % Normal . [facility] Comment on above: Performed By: #### L IPASE, HCGQNT, HEPATIC, BMP, CBC #### [address] Erythrocyte distribution width (RBC) [Ratio] 13.3 % Normal 11.9-15.3 [facility] Comment on above: Performed By: #### L IPASE, HCGQNT, HEPATIC, BMP, CBC #### [address] Hematocrit (Bld) [Volume fraction] 47.2 % High 34.0-46.4 [facility] Comment on above: Performed By: #### L IPASE, HCGQNT, HEPATIC, BMP, CBC #### [address] Hemoglobin (Bld) [Mass/Vol] 16.5 g/dL High 11.8-15.4 [facility] Comment on above: Performed By: #### L IPASE, HCGQNT, HEPATIC, BMP, CBC #### [address] Lymphocytes (Bld) [#/Vol] 1.9 10*3/uL Normal 1.00-4.8 [facility] Comment on above: Performed By: #### L IPASE, HCGQNT, HEPATIC, BMP, CBC #### [address] Lymphocytes/100 WBC (Bld) 11.6 % Normal . [facility] Comment on above: Performed By: #### L IPASE, HCGQNT, HEPATIC, BMP, CBC #### [address] MCH (RBC) [Entitic mass] 30.8 pg Normal 24.7-34.3 [facility] Comment on above: Performed By: #### L IPASE, HCGQNT, HEPATIC, BMP, CBC #### [address] MCV (RBC) [Entitic vol] 87.8 fL Normal 80-100 [facility] Comment on above: Performed By: #### L IPASE, HCGQNT, HEPATIC, BMP, CBC #### [address] Mean Corpuscular HGB Conc 35.0 g/dL Normal 32.0-35.0 [facility] Comment on above: Performed By: #### L IPASE, HCGQNT, HEPATIC, BMP, CBC #### [address] Monocytes (Bld) [#/Vol] 1.4 10*3/uL High 0.0-0.8 [facility] Comment on above: Performed By: #### L IPASE, HCGQNT, HEPATIC, BMP, CBC #### [address] Monocytes/100 WBC (Bld) 16.05 % Normal 0.00-20.00 [facility] Comment on above: Performed By: #### L IPASE, HCGQNT, HEPATIC, BMP, CBC #### [address] Monocytes/100 WBC (Bld) 8.8 % Normal . [facility] Comment on above: Performed By: #### L IPASE, HCGQNT, HEPATIC, BMP, CBC #### [address] Neutrophils (Bld) [#/Vol] 12.6 10*3/uL High 1.8-7.7 [facility] Comment on above: Performed By: #### L IPASE, HCGQNT, HEPATIC, BMP, CBC #### [address] Neutrophils/100 WBC (Bld) 78.7 % Normal . [facility] Comment on above: Performed By: #### L IPASE, HCGQNT, HEPATIC, BMP, CBC #### [address] NRBC% 0.1 /100{WBC} Normal 0-0.5 [facility] Comment on above: Performed By: #### L IPASE, HCGQNT, HEPATIC, BMP, CBC #### [address] Platelet mean volume (Bld) [Entitic vol] 9.7 fL Normal 6.3-10.7 [facility] Comment on above: Performed By: #### L IPASE, HCGQNT, HEPATIC, BMP, CBC #### [place] [id number] [place] Platelets (Bld) [#/Vol] 263 10*3/uL Normal 150-450 [facility] Comment on above: Performed By: #### L IPASE, HCGQNT, HEPATIC, BMP, CBC #### [place] [id number] [place] RBC (Bld) [#/Vol] 5.37 10*6/uL High 3.60-5.00 [facility] Comment on above: Performed By: #### L IPASE, HCGQNT, HEPATIC, BMP, CBC #### [address] WBC (Bld) [#/Vol] 16.0 10*3/uL High 3.8-11.6 [facility] Comment on above: Performed By: #### L IPASE, HCGQNT, HEPATIC, BMP, CBC #### [facility] [address] [place] [address] [place] Creatinine [Mass/volume] in Serum or PlasmaOrdered By: Jacky Alarcon on 03-10-2023 Creatinine [Mass/Vol] 0.64 mg/dL 0.60-1.20 [facility] Dipstick and Microscopicon 1 05-11-2022 Appearance (U) Turbid Critically abnormal Clear [facility] Comment on above: Order Comment: Name Collection Type:: Clean-Voided Midstream Performed By: #### A DDONUAPLUS, CUU #### [place] [id number] [place] Bacteria,Urine Rare High None Seen [facility] Comment on above: Order Comment: Name Collection Type:: Clean-Voided Midstream Performed By: #### A DDONUAPLUS, CUU #### [place] [id number] [place] Bilirubin,Urine Negative Normal Negative [facility] Comment on above: Order Comment: Name Collection Type:: Clean-Voided Midstream Performed By: #### A DDONUAPLUS, CUU #### [place] [id number] [place] Color (U) Dark Yellow Critically abnormal Yellow [facility] Comment on above: Order Comment: Name Collection Type:: Clean-Voided Midstream Performed By: #### A DDONUAPLUS, CUU #### [facility] [address] [place] [address] [place] Glucose Ql (U) Normal Normal Normal [facility] Comment on above: Order Comment: Name Collection Type:: Clean-Voided Midstream Performed By: #### A DDONUAPLUS, CUU #### [place] [id number] [place] Hyaline Casts,Urine 9-19 High 0-8 [facility] Comment on above: Order Comment: Name Collection Type:: Clean-Voided Midstream Result Comment: PERF ORMED BY: [place] [phone] PATHOLOGIST PLUG PASTER ANDRÉS MACEDO M.D. Performed By: #### A DDONUAPLUS, CUU #### [address] Ketones Ql (U) 4+ High Negative [facility] Comment on above: Order Comment: Name Collection Type:: Clean-Voided Midstream Performed By: #### A DDONUAPLUS, CUU #### [address] Leukocyte esterase Test strip Ql (U) 1+ High Negative [facility] Comment on above: Order Comment: Name Collection Type:: Clean-Voided Midstream Performed By: #### A DDONUAPLUS, CUU #### [address] Nitrite,Urine Negative Normal Negative [facility] Comment on above: Order Comment: Name Collection Type:: Clean-Voided Midstream Performed By: #### A DDONUAPLUS, CUU #### [address] Occult Blood,Urine 3+ High Negative [facility] Comment on above: Order Comment: Name Collection Type:: Clean-Voided Midstream Result Comment: PERF ORMED BY: [place] [address] PATHOLOGIST PLUG PASTER ANDRÉS MACEDO M.D. Performed By: #### A DDONUAPLUS, CUU #### [address] Othe Crystals,Urine Normal [facility] Comment on above: Order Comment: Name Collection Type:: Clean-Voided Midstream Result Comment: sulf a crystals Performed By: #### A DDONUAPLUS, CUU #### [address] pH (U) 6.5 [pH] Normal 5.0-9.0 [facility] Comment on above: Order Comment: Name Collection Type:: Clean-Voided Midstream Performed By: #### A DDONUAPLUS, CUU #### [address] Protein (U) [Mass/Vol] 100 mg/dL High Negative [facility] Comment on above: Order Comment: Name Collection Type:: Clean-Voided Midstream Performed By: #### A DDONUAPLUS, CUU #### [address] RBC,Urine 50-100 High 0-4 [facility] Comment on above: Order Comment: Name Collection Type:: Clean-Voided Midstream Performed By: #### A DDONUAPLUS, CUU #### [address] Specificy [place],Urine 1.029 Normal 1.001-1.03 0 [facility] Comment on above: Order Comment: Name Collection Type:: Clean-Voided Midstream Performed By: #### A DDONUAPLUS, CUU #### [address] Squamous Epithelial Cell,Urine 1-2 Normal 0-2 [facility] Comment on above: Order Comment: Name Collection Type:: Clean-Voided Midstream Performed By: #### A DDONUAPLUS, CUU #### [address] Urobilinogen,Urine Normal Normal Normal [facility] Comment on above: Order Comment: Name Collection Type:: Clean-Voided Midstream Performed By: #### A DDONUAPLUS, CUU #### [address] WBC,Urine 5-9 High 0-4 [facility] Comment on above: Order Comment: Name Collection Type:: Clean-Voided Midstream Performed By: #### A DDONUAPLUS, CUU #### [address] Eosinophils Auto (Bld) [#/Vo l]Ordered By: Jacky Alarcon on 03-10-2023 Eosinophils (Bld) [#/Vol] 0.1 10*3/uL 0.0-0.45 [facility] Eosinophils/100 WBC Auto (Bl d)Ordered By: Jacky Alarcon on 03-10-2023 Eosinophils/100 WBC (Bld) 0.5 % . [facility] Erythrocyte distribution wid th Auto (RBC) [Ratio]Ordered By: Jacky Alarcon on 03-10-2023 Erythrocyte distribution width (RBC) [Ratio] 13.3 % 11.9-15.3 [facility] Globulin Calc (S) [Mass/Vol] Ordered By: Jacky Alarcon on 03-10-2023 Globulin (S) [Mass/Vol] 3.5 g/dL [facility] Glucose [Mass/volume] in Ser um or PlasmaOrdered By: Jacky Alarcon on 03-10-2023 Glucose [Mass/Vol] 83 mg/dL 70-100 [facility] Comment on above: ADA recommended refe rence rangeRandom Glucose Reference Range is dependent on time and content of last meal. Glucose of more than 200 mg/dL in a nonstressed, ambulatory subject supports the diagnosis of Diabetes Mellitus. HCG ( test) IA.rapi d Ql (U)Ordered By: Jacky Alarcon on 03-10-2023 HCG ( test) Ql (U) Positive [facility] HCG,Quantitativeon HCG,Quantitative 84103.00 m[iU]/mL Normal [facility] Comment on above: Result Comment: Appr oximate Approximate hCG Gestational Age Range (mIU/ml) (weeks) 0.2-1 5-50 1-2 50-500 2-3 100-5,000 3-4 500-10,000 4-5 1,000-50,000 5-6 10,000-100,000 6-8 15,000-200,000 8-12 10,000-100,000 PERFORMED BY: [place] [address] PATHOLOGIST PLUG PASTER ANDRÉS MACEDO M.D. Performed By: #### L IPASE, HCGQNT, HEPATIC, BMP, CBC #### [address] HCG,Urineon 03-10-2023 Beta HCG ( test) Ql (U) Positive High [facility] Comment on above: Result Comment: PERF ORMED BY: [place] [address] PATHOLOGIST PLUG PASTER ANDRÉS MACEDO M.D. Performed By: #### U HCG #### [facility] [address] [place] [address] Hematocrit Auto (Bld) [Volum e fraction]Ordered By: Jacky Alarcon on 03-10-2023 Hematocrit (Bld) [Volume fraction] 47.2 % 34.0-46.4 [facility] Hemoglobin [Mass/volume] in BloodOrdered By: Jacky Alarcon on 03-10-2023 Hemoglobin (Bld) [Mass/Vol] 16.5 g/dL 11.8-15.4 [facility] Hepatic Panelon 03-10-2023 Albumin [Mass/Vol] 4.5 g/dL Normal 3.5-5.7 [facility] Comment on above: Performed By: #### L IPASE, HCGQNT, HEPATIC, BMP, CBC #### [facility] [address] [place] [address] Albumin/Globulin [Mass ratio] 1.3 {ratio} Normal [facility] Comment on above: Performed By: #### L IPASE, HCGQNT, HEPATIC, BMP, CBC #### [facility] [address] [place] [address] [place] ALP [Catalytic activity/Vol] 71 U/L Normal 34-104 [facility] Comment on above: Performed By: #### L IPASE, HCGQNT, HEPATIC, BMP, CBC #### [facility] [address] [place] [address] [place] ALT [Catalytic activity/Vol] 36 U/L Normal 7-52 [facility] Comment on above: Performed By: #### L IPASE, HCGQNT, HEPATIC, BMP, CBC #### [facility] [address] [place] [address] [place] AST [Catalytic activity/Vol] 17 U/L Normal 13-39 [facility] Comment on above: Performed By: #### L IPASE, HCGQNT, HEPATIC, BMP, CBC #### [facility] [address] [address] Bilirubin [Mass/Vol] 1.2 mg/dL High 0.3-1.0 [facility] Comment on above: Performed By: #### L IPASE, HCGQNT, HEPATIC, BMP, CBC #### [facility] [address] Bilirubin,Indirect 0.8 mg/dL Normal [facility] Comment on above: Performed By: #### L IPASE, HCGQNT, HEPATIC, BMP, CBC #### [facility] [address] Bilirubin.indirect [Mass/Vol] 0.40 mg/dL High 0.03-0.18 [facility] Comment on above: Performed By: #### L IPASE, HCGQNT, HEPATIC, BMP, CBC #### [facility] [address] Globulin (S) [Mass/Vol] 3.5 g/dL Normal [facility] Comment on above: Performed By: #### L IPASE, HCGQNT, HEPATIC, BMP, CBC #### [facility] [address] Protein [Mass/Vol] 8.0 g/dL Normal 6.4-8.9 [facility] Comment on above: Performed By: #### L IPASE, HCGQNT, HEPATIC, BMP, CBC #### [facility] [address] Ketones Auto test strip (U) [Mass/Vol]Ordered By: Jacky Alarcon on 03-10-2023 Ketones (U) [Mass/Vol] 4+ Negative [facility] - UrinalysisOrder ed By: Jacky Alarcon on 03-10-2023 Hyaline casts LM Ql (Urine sed) 9-19 [LPF] 0-8 [facility] Leukocytes [#/volume] correc anabell for nucleated erythrocytes in Blood by Automated counOrdered By: Jacky Alarcon on 03-10-2023 WBC corrected for nucl RBC Auto (Bld) [#/Vol] 16.0 10*3/uL 3.8-11.6 [facility] Lipaseon 03-10-2023 Lipase [Catalytic activity/Vol] 35.0 U/L Normal 11.0-82.0 [facility] Comment on above: Result Comment: PERF ORMED BY: [facility] [address] [place] [address] PATHOLOGIST PLUG PASTER ANDRÉS MACEDO M.D. Performed By: #### L IPASE, HCGQNT, HEPATIC, BMP, CBC #### [facility] [address] Lipase [Enzymatic activity/v olume] in Serum or PlasmaOrdered By: Jacky Alarcon on 03-10-2023 Lipase [Catalytic activity/Vol] 35.0 U/L 11.0-82.0 [facility] Lymphocytes Auto (Bld) [#/Vo l]Ordered By: Jacky Alarcon on 03-10-2023 Lymphocytes (Bld) [#/Vol] 1.9 10*3/uL 1.00-4.8 [facility] Lymphocytes/100 WBC Auto (Bl d)Ordered By: Jacky Alarcon on 03-10-2023 Lymphocytes/100 WBC (Bld) 11.6 % . [facility] MCH Auto (RBC) [Entitic mass ]Ordered By: Jacky Alarcon on 03-10-2023 MCH (RBC) [Entitic mass] 30.8 pg 24.7-34.3 [facility] MCHC Auto (RBC) [Mass/Vol]Or dered By: Jacky Alarcon on 03-10-2023 MCHC (RBC) [Mass/Vol] 35.0 g/dL 32.0-35.0 [facility] MCV Auto (RBC) [Entitic vol] Ordered By: Jacky Alarcon on 03-10-2023 MCV (RBC) [Entitic vol] 87.8 fL 80-100 [facility] Monocyte distribution width [Entitic volume] in Blood by AutomatedOrdered By: Jacky Alarcon on 03-10-2023 Monocyte distribution width Auto (Bld) [Entitic vol] 16.05 % 0.00-20.00 [facility] Monocytes Auto (Bld) [#/Vol] Ordered By: Jacky Alarcon on 03-10-2023 Monocytes (Bld) [#/Vol] 1.4 10*3/uL 0.0-0.8 [facility] Monocytes/100 WBC Auto (Bld) Ordered By: Jacky Alarcon on 03-10-2023 Monocytes/100 WBC (Bld) 8.8 % . [facility] Neutrophils Auto (Bld) [#/Vo l]Ordered By: Jacky Alarcon on 03-10-2023 Neutrophils (Bld) [#/Vol] 12.6 10*3/uL 1.8-7.7 [facility] Neutrophils/100 WBC Auto (Bl d)Ordered By: Jacky Alarcon on 03-10-2023 Neutrophils/100 WBC (Bld) 78.7 % . [facility] Nitrite Test strip Ql (U)Ord ered By: Jacky Alarcon on 03-10-2023 Nitrite Ql (U) Negative Negative [facility] No Panel InformationOrdered By: Jacky Alarcon on 03-10-2023 Estimated GFR (CKD-EPI) > 60.0 mL/Min [facility] Creatinine Clearance (Chem 148.58 [facility] Nucleated erythrocytes [Pres ence] in Blood by Automated countOrdered By: Jacky Alarcon on 03-10-2023 Nucleated RBC Auto Ql (Bld) 0.1 /100{WBC} 0-0.5 [facility] Platelet mean volume Auto (B ld) [Entitic vol]Ordered By: Jacky Alarcon on 03-10-2023 Platelet mean volume (Bld) [Entitic vol] 9.7 fL 6.3-10.7 [facility] Platelets Auto (Bld) [#/Vol] Ordered By: Jacky Alarcon on 03-10-2023 Platelets (Bld) [#/Vol] 263 10*3/uL 150-450 [facility] Potassium [Moles/volume] in Serum or PlasmaOrdered By: Jacky Alarcon on 03-10-2023 Potassium [Moles/Vol] 3.3 mmol/L 3.5-5.1 [facility] Protein Auto test strip (U) [Mass/Vol]Ordered By: Jacky Alarcon on 03-10-2023 Protein (U) [Mass/Vol] 100 mg/dL Negative [facility] Protein [Mass/volume] in Ser um or PlasmaOrdered By: Jacky Alarcon on 03-10-2023 Protein [Mass/Vol] 8.0 g/dL 6.4-8.9 [facility] RBC Auto (Bld) [#/Vol]Ordere d By: Jacky Alarcon on 03-10-2023 RBC (Bld) [#/Vol] 5.37 10*6/uL 3.60-5.00 [facility] Serum or plasma albumin/glob ulin mass ratioOrdered By: Jacky Alarcon on 03-10-2023 Albumin/Globulin [Mass ratio] 1.3 {ratio} [facility] Serum or plasma anion gap de terminationOrdered By: Jacky Alarcon on 03-10-2023 Anion gap [Moles/Vol] 16.5 mmol/L 6.0-15.0 [facility] Serum or plasma non-glucuron idated bilirubin measurement (mass/volume)Ordered By: Jacky Alarcon on 03-10-2023 Bilirubin.indirect [Mass/Vol] 0.8 mg/dL [facility] Sodium [Moles/volume] in Ser um or PlasmaOrdered By: Jacky Alarcon on 03-10-2023 Sodium [Moles/Vol] 133 mmol/L 136-145 [facility] Specific gravity Auto test s trip (U) [Rel density]Ordered By: Jacky Alarcon on 03-10-2023 Specific gravity (U) [Rel density] 1.029 1.001-1.03 0 [facility] Squamous epithelial cells de tection in urine sediment by light microscopyOrdered By: Jacky Alarcon on 03-10-2023 Epithelial cells.squamous LM Ql (Urine sed) 1-2 [HPF] 0-2 [facility] Urea nitrogen [Mass/volume] in Serum or PlasmaOrdered By: Jacky Alarcon on 03-10-2023 Urea nitrogen [Mass/Vol] 6 mg/dL 7-25 [facility] Urine Cultureon 03-10-2023 Bacteria identified Cx Nom (U) >100,000 colonies/ml mixed bacterial skin contaminants 2 Days PERFORMED BY: [place] [address] [place] [address] PATHOLOGIST PLUG PASTER ANDRÉS MACEDO M.D. Normal [facility] Comment on above: Performed By: #### A DDONUAPLUS, CUU #### [facility] [address] Urine bacteria detection by automated methodOrdered By: Jacky Alarcon on 03-10-2023 Bacteria Auto Ql (U) Rare None Seen [facility] Urine clarity by refractomet ry automatedOrdered By: Jacky Alarcon on 03-10-2023 Clarity Refractometry automated (U) Turbid Clear [facility] Urine glucose measurement by automated test strip (mass/volume)Ordered By: Jacky Alarcon on 03-10-2023 Glucose Auto test strip (U) [Mass/Vol] Normal mg/dL Normal [facility] Urine hemoglobin detection b y automated test stripOrdered By: Jacky Alarcon on 03-10-2023 Hemoglobin Auto test strip Ql (U) 3+ Negative [facility] Urine leukocyte esterase det ection by automated test stripOrdered By: Jacky Alarcon on 03-10-2023 Leukocyte esterase Auto test strip Ql (U) 1+ Negative [facility] Urine sediment crystal ident ification by light microscopyOrdered By: Jacky Alarcon on 03-10-2023 Crystals LM Nom (Urine sed) See comment [facility] Comment on above: sulfa crystals Urobilinogen Auto test strip (U) [Mass/Vol]Ordered By: Jacky Alarcon on 03-10-2023 Urobilinogen (U) [Mass/Vol] Normal mg/dL Normal [facility] WBC Auto (Bld) [#/Vol]Ordere d By: Jacky Alarcon on 03-10-2023 WBC (Bld) [#/Vol] 16.0 10*3/uL 3.8-11.6 [facility] pH Auto test strip (U)Ordere d By: Jacky Alarcon on 03-10-2023 pH (U) 6.5 [pH] 5.0-9.0 [facility] CBC AUTO DIFFon 07-30-2022 BASO # 0.1 103/ul Normal 0.0-0.[address] [facility] Comment on above: Performed By: #### G TT3P #### [facility] [address] [address] [address] Jackelyn Celestin Basophils/100 WBC (Bld) 0.6 % Normal 0.2-2.[address] [facility] Comment on above: Performed By: #### G TT3P #### [facility] [address] [place] [address] Dr. Jackelyn Celestin EO # 0.2 103/ul Normal 0.0-0.[address] [facility] Comment on above: Performed By: #### G TT3P #### [facility] [address] [place] [address] Dr. Jackelyn Celestin Eosinophils/100 WBC (Bld) 1.5 % Normal 0.9-7.[address] [facility] Comment on above: Performed By: #### G TT3P #### [facility] [address] [place] [address] Dr. Jackelyn Celestin Erythrocyte distribution width (RBC) [Ratio] 14.5 % Normal 11.0-15.[address] [facility] Comment on above: Performed By: #### G TT3P #### [facility] [address] [place] [address] Dr. Jackelyn Celestin Hematocrit (Bld) [Volume fraction] 33.9 % Critically low 36.0-48.[address] [facility] Comment on above: Performed By: #### G TT3P #### [facility] [address] [place] [address] Dr. Jackelyn Celestin Hemoglobin (Bld) [Mass/Vol] 11.0 g/dL Critically low 12.0-16.[address] [facility] Comment on above: Performed By: #### G TT3P #### [facility] [address] [place] [address] Dr. Jackelyn Celestin IG # 0.13 10e3/ul Critically high 0.00-0.[address] [facility] Comment on above: Performed By: #### G TT3P #### [facility] [address] [place] [address] Dr. Jackelyn Celestin IG % 1.1 % Critically high 0.0-0.[address] [facility] Comment on above: Performed By: #### G TT3P #### [facility] [address] [place] [address] Dr. Jackelyn Celestin LYMPH # 2.2 103/ul Normal 1.2-3.[address] [facility] Comment on above: Performed By: #### G TT3P #### [facility] [address] [place] [address] Dr. Jackelyn Celestin Lymphocytes/100 WBC (Bld) 17.9 % Critically low 20.5-60.[address] [facility] Comment on above: Performed By: #### G TT3P #### [facility] [address] [place] [address] Dr. Jackelyn Celestin MANUAL DIFF REQ NO Normal [facility] Comment on above: Performed By: #### G TT3P #### [facility] [address] [place] [address] Dr. Jackelyn Celestin MCH (RBC) [Entitic mass] 28.6 pg Normal 26.7-34.[address] [facility] Comment on above: Performed By: #### G TT3P #### [facility] [address] [place] [address] Dr. Jackelyn Celestin MCHC (RBC) [Mass/Vol] 32.4 g/dL Normal 29.9-35.[address] [facility] Comment on above: Performed By: #### G TT3P #### [facility] [address] [place] [address] Dr. Jackelyn Celesitn MCV (RBC) [Entitic vol] 88.1 fL Normal 81.0-99.[address] [facility] Comment on above: Performed By: #### G TT3P #### [facility] [address] [place] [address] Dr. Jackelyn Celestin MONO # 0.8 103/ul Normal 0.3-0.[address] [facility] Comment on above: Performed By: #### G TT3P #### [facility] [address] [place] [address] Dr. Jackelyn Celestin Monocytes/100 WBC (Bld) 6.9 % Normal 1.7-12.[address] [facility] Comment on above: Performed By: #### G TT3P #### [facility] [address] [place] [address] Dr. Jackelyn Celestin NEUT # 8.7 103/ul Critically high 1.4-6.[address] [facility] Comment on above: Performed By: #### G TT3P #### [facility] [address] [place] [address] Dr. Jackelyn Celestin Neutrophils/100 WBC (Bld) 72.0 % Normal 43.0-75.[address] [facility] Comment on above: Performed By: #### G TT3P #### [facility] [address] [place] [address] Dr. Jackelyn Celestin Platelet mean volume (Bld) [Entitic vol] 11.5 fL Normal 9.5-13.[address] [facility] Comment on above: Performed By: #### G TT3P #### [facility] [address] [place] [address] Dr. Jackelyn Celestin PLT 146 103/ul Critically low 150-[address] [facility] Comment on above: Performed By: #### G TT3P #### [facility] [address] [place] [address] Dr. Jackelyn Celestin RBC 3.85 106/ul Critically low 4.20-5.[address] [facility] Comment on above: Performed By: #### G TT3P #### [facility] [address] [place] [address] Dr. Jackelyn Celestin WBC 12.1 103/ul Critically high 4.0-11.[address] [facility] Comment on above: Performed By: #### G TT3P #### [facility] [address] [place] [address] Dr. Jackelyn Celestin CBC AUTO DIFFon 07-29-2022 BASO # 0.0 103/ul Normal 0.0-0.[address] [facility] Comment on above: Performed By: #### [id number] #### [facility] [address] [place] [address] Dr. Jackelyn Celestin Basophils/100 WBC (Bld) 0.4 % Normal 0.2-2.[address] [facility] Comment on above: Performed By: #### [id number] #### [facility] [address] [place] [address] Dr. Jackelyn Celestin EO # 0.2 103/ul Normal 0.0-0.7 [facility] Comment on above: Performed By: #### [id number] #### [facility] [address] [place] [address] Dr. Jackelyn Celestin Eosinophils/100 WBC (Bld) 1.4 % Normal 0.9-7.[address] [facility] Comment on above: Performed By: #### 4 [id number] #### [facility] [address] [place] [address] Dr. Jackelyn Celestin Erythrocyte distribution width (RBC) [Ratio] 14.1 % Normal 11.0-15.[address] [facility] Comment on above: Performed By: #### [id number] #### [facility] [address] [place] [address] Dr. Jackelyn Celestin Hematocrit (Bld) [Volume fraction] 36.0 % Normal 36.0-48.[address] [facility] Comment on above: Performed By: #### [id number] #### [facility] [address] [place] [address] Dr. Jackelyn Celestin Hemoglobin (Bld) [Mass/Vol] 12.2 g/dL Normal 12.0-16.[address] [facility] Comment on above: Performed By: #### [id number] #### [facility] [address] [place] [address] Dr. Jackelyn Celestin IG # 0.10 10e3/ul Critically high 0.00-0.[address] [facility] Comment on above: Performed By: #### 4 [id number] #### [facility] [address] [place] [address] Dr. Jackelyn Celestin IG % 0.9 % Critically high 0.0-0.5 [facility] Comment on above: Performed By: #### [id number] #### [facility] [address] [place] [address] Dr. Jackelyn Celestin LYMPH # 1.9 103/ul Normal 1.2-3.8 [facility] Comment on above: Performed By: #### 4 [id number] #### [facility] [address] [place] [address] Dr. Jackelyn Celestin Lymphocytes/100 WBC (Bld) 17.7 % Critically low 20.5-60.[address] [facility] Comment on above: Performed By: #### 4 [id number] #### [facility] [address] [place] [address] Dr. Jackelyn Celestin MANUAL DIFF REQ NO Normal [facility] Comment on above: Performed By: #### [id number] #### [facility] [address] [place] [address] Dr. Jackelyn Celestin MCH (RBC) [Entitic mass] 28.8 pg Normal 26.7-34.[address] [facility] Comment on above: Performed By: #### [id number] #### [facility] [address] [place] [address] Dr. Jackelyn Celestin MCHC (RBC) [Mass/Vol] 33.9 g/dL Normal 29.9-35.2 [facility] Comment on above: Performed By: #### [id number] #### [facility] [address] [place] [address] Dr. Jackelyn Celestin MCV (RBC) [Entitic vol] 84.9 fL Normal 81.0-99.[address] [facility] Comment on above: Performed By: #### 4 [id number] #### [facility] [address] [place] [address] Dr. Jackelyn Celestin MONO # 0.9 103/ul Critically high 0.3-0.8 [facility] Comment on above: Performed By: #### 4 [id number] #### [facility] [address] [place] [address] Dr. Jackelyn Celestin Monocytes/100 WBC (Bld) 8.4 % Normal 1.7-12.0 [facility] Comment on above: Performed By: #### [id number] #### [facility] [address] [place] [address] Dr. Jackelyn Celestin NEUT # 7.7 103/ul Critically high 1.4-6.5 [facility] Comment on above: Performed By: #### 4 [id number] #### [facility] [address] [place] [address] Dr. Jackelyn Celestin Neutrophils/100 WBC (Bld) 71.2 % Normal 43.0-75.[address] [facility] Comment on above: Performed By: #### 4 [id number] #### [facility] [address] [place] [address] Dr. Jackelyn Celestin Platelet mean volume (Bld) [Entitic vol] 10.9 fL Normal 9.5-13.[address] [facility] Comment on above: Performed By: #### 4 [id number] #### [facility] [address] [place] [address] Dr. Jackelyn Celestin PLT 170 103/ul Normal 150-[address] [facility] Comment on above: Performed By: #### 4 [id number] #### [facility] [address] [place] [address] Dr. Jackelyn Celestin RBC 4.24 106/ul Normal 4.20-5.[address] [facility] Comment on above: Performed By: #### 4 [id number] #### [facility] [address] [place] [address] Dr. Jackelyn Celestin WBC 10.8 103/ul Normal 4.0-11.[address] [facility] Comment on above: Performed By: #### [id number] #### [facility] [address] [place] [address] Dr. Jackelyn Celestin DRUG SCREEN RAPID (URINE)on 07-29-2022 AMP Negative Normal NEGATIVE [facility] Comment on above: Performed By: #### [id number] #### [facility] [address] [place] [address] Dr. Jackelyn Celestin BAR Negative Normal NEGATIVE [facility] Comment on above: Performed By: #### [id number] #### [facility] [address] [place] [address] Dr. Jackelyn Celestin BUP Negative Normal NEGATIVE [facility] Comment on above: Performed By: #### [id number] #### [facility] [address] [place] [address] Dr. Jackelyn Celestin BZO Negative Normal NEGATIVE [facility] Comment on above: Performed By: #### 4 [id number] #### [facility] [address] [place] [address] Dr. Jackelyn Celestin HOMERO Negative Normal NEGATIVE [facility] Comment on above: Performed By: #### 4 [id number] #### [facility] [address] [place] [address] Dr. Jackelyn Celestin CUT-OFFS SEE BELOW Normal [facility] Comment on above: Result Comment: AMP (Amphetamine): 500ng/mL, BAR (Barbituates): 200 ng/mL, BZO (Benzodiazepines): 150 ng/mL, BUP (Buprenorphine): 10 ng/mL, HOMERO (Cocaine): 150 ng/mL, mAMP (Methamphetamine): 500 ng/mL, MTD (Methadone): 200 ng/mL, OPI (Opiates): 100 ng/mL, OXY (Oxycodone): 100 ng/mL, PCP (Phencyclidine): 25 ng/mL, PPX (Propoxyphene): 300 ng/mL, THC (Cannabinoids): 50 ng/mL, TCA (Trycyclic Antidepressants): 300 ng/mL Performed By: #### [id number] #### [facility] [address] [place] [address] Dr. Jackelyn Celestin DRUG CUT HEADER DRUG CLASS TEST SYST EM CUT-OFF CONCENTRATIONS ARE FOLLOWS: Normal [facility] Comment on above: Performed By: #### [id number] #### [facility] [address] [place] [address] Dr. Jackelyn Celestin mAMP Negative Normal NEGATIVE [facility] Comment on above: Performed By: #### [id number] #### [facility] [address] [place] [address] Dr. Jackelyn Celestin MTD Negative Normal NEGATIVE [facility] Comment on above: Performed By: #### [id number] #### [facility] [address] [place] [address] Dr. Jackelyn Celestin OPI Negative Normal NEGATIVE [facility] Comment on above: Performed By: #### [id number] #### [facility] [address] [place] [address] Dr. Jackelyn Celestin OXY Negative Normal NEGATIVE [facility] Comment on above: Performed By: #### [id number] #### [facility] [address] [place] [address] Dr. Jackelyn Celestin PCP Negative Normal NEGATIVE [facility] Comment on above: Performed By: #### [id number] #### [facility] [address] [place] [address] Dr. Jackelyn Celestin PPX Negative Normal NEGATIVE [facility] Comment on above: Performed By: #### [id number] #### [facility] [address] [place] [address] Dr. Jackelyn Celestin TCA Negative Normal NEGATIVE [facility] Comment on above: Performed By: #### [id number] #### [facility] [address] [place] [address] Dr. Jackelyn Celestin THC Negative Normal NEGATIVE [facility] Comment on above: Performed By: #### [id number] #### [facility] [address] [place] [address] Dr. Jackelyn Celestin TYPE AND SCREENon 07-29-2022 TYPE AND SCREEN Negative Normal [facility] Comment on above: Performed By: #### G TT3P #### [facility] [address] [place] [address] Dr. Jackelyn Celestin US PREG GROWTHon 07-25-2022 [...] Age by US: 37 weeks 6 days LIILAN by US: 08/05/2022 IMPRESSION: 1. Single live intrauterine with growth detailed above. 2. Abdominal circumference is greater than 97th percentile. Electronically authenticated by: TRISTAN HART Date: 2022-07-24 22:37 Normal [facility] GROUP B STREP CULTUREon 06-09 S. agalactiae Ag Ql (Unsp spec) Culture Observations: NEGATIVE FOR GROUP B STREPTOCOCCUS. Normal [facility] Comment on above: Performed By: #### G TT3P #### [facility] [address] [place] [address] Dr. Jackelyn Celestin US PREG GROWTHon 06-06-2022 [...] TRISTAN HART Date: 2022-06-06 15:39 Normal [facility] GTT 3 HR PREGon 05-21-2022 Glucose [Mass/Vol] 91 mg/dL Normal 74-106 [facility] Comment on above: Performed By: #### G TT3P #### [facility] [address] [place] [address] Dr. Jackelyn Celestin Glucose [Mass/Vol] 168 mg/dL Normal [facility] Comment on above: Performed By: #### G TT3P #### [facility] [address] [place] [address] Dr. Jackelyn Celestin Glucose [Mass/Vol] 121 mg/dL [facility] Comment on above: Performed By: #### G TT3P #### [facility] [address] [place] [address] Dr. Jackelyn Celestin Glucose [Mass/Vol] 86 mg/dL [facility] Comment on above: Performed By: #### G TT3P #### [facility] [address] [place] [address] Dr. Jackelyn Celestin PAP ACOG PANEL 2: 21 to 29on 05-17-2022 . . Normal [facility] Comment on above: Performed By: #### [id number] #### [facility] [facility] [address] [place] [address] Dr. Jackelyn Celestin DIAGNOSIS: Comment [facility] Comment on above: Result Comment: NEGA TIVE FOR INTRAEPITHELIAL LESION OR MALIGNANCY. Performed By: #### 4 [id number] #### [facility] [address] [place] [address] Dr. Jackelny Celestin Methodology: Comment [facility] Comment on above: Result Comment: This liquid based ThinPrep(R) pap test was screened with the use of an image guided system. Performed By: #### 4 [id number] #### [facility] [address] [place] [address] Dr. Jackelyn Celestin Note: Comment [facility] Comment on above: Result Comment: The Pap smear is a screening test designed to aid in the detection of premalignant and malignant conditions of the uterine cervix. It is not a diagnostic procedure and should not be used as the sole means of detecting cervical cancer. Both false-positive and false-negative reports do occur. . Performed By: #### 4 [id number] #### [facility] [address] [place] [address] Dr. Jackelyn Celestin Performed by: Comment [facility] Comment on above: Result Comment: Alphonso Walker, Assembler [employer] (ASCP) Performed By: #### 4 [id number] #### [facility] [address] [place] [address] Dr. Jackelyn Celestin Reflex Criteria: Comment Normal [facility] Comment on above: Result Comment: The HPV DNA reflex criteria were not met with this specimen result therefore, no HPV testing was performed. . Performed By: #### 4 [id number] #### [facility] [address] [place] [address] Dr. Jackelyn Celestin Specimen adequacy: Comment Normal [facility] Comment on above: Result Comment: Sati sfactory for evaluation. No endocervical component is identified. Performed By: #### 4 [id number] #### [facility] [address] [place] [address] Dr. Jackelny Celestin Age Gdln ACOG Testing 21-[address] [facility] Comment on above: Performed By: #### 4 [id number] #### [facility] [address] [place] [address] Dr. Jackelyn Celestin CHLAMYDIA/GONOCOCCUS ALONDRA (SW AB/URINE/PAPon 05-14-2022 Chlamydia trachomatis, ALONDRA Negative Normal Negative [facility] Comment on above: Performed By: #### G TT3P #### [facility] [address] [place] [address] Dr. Jackelyn Celestin Neisseria gonorrhoeae, ALONDRA Negative Normal Negative [facility] Comment on above: Performed By: #### G TT3P #### [facility] [address] [place] [address] Dr. Jackelyn Celestin VAGINITIS/VAGINOSIS DNA PROB Dean 05-13-2022 Thao species Negative Normal Negative [facility] Comment on above: Performed By: #### 4 [id number] #### [facility] [address] [place] [address] Dr. Jackelyn Celestin Gardnerella vaginalis Negative Normal Negative [facility] Comment on above: Performed By: #### 4 [id number] #### [facility] [address] [place] [address] Dr. Jackelyn Celestin Trichomonas vaginalis Negative Normal Negative [facility] Comment on above: Performed By: #### 4 [id number] #### [facility] [address] [place] [address] Dr. Jackelyn Celestin CBC AUTO DIFFon 05-09-2022 BASO # 0.0 103/ul Normal 0.0-0.[address] [facility] Comment on above: Performed By: #### C BC #### [facility] [address] [place] [address] Dr. Jackelyn Celestin Basophils/100 WBC (Bld) 0.3 % Normal 0.2-2.[address] [facility] Comment on above: Performed By: #### C BC #### [facility] [address] [place] [address] Dr. Jackelyn Celestin EO # 0.1 103/ul Normal 0.0-0.[address] [facility] Comment on above: Performed By: #### C BC #### [facility] [address] [place] [address] Dr. Jackelyn Celestin Eosinophils/100 WBC (Bld) 1.2 % Normal 0.9-7.[address] [facility] Comment on above: Performed By: #### C BC #### [facility] [address] [place] [address] Dr. Jackelyn Celestin Erythrocyte distribution width (RBC) [Ratio] 11.9 % Normal 11.0-15.[address] [facility] Comment on above: Performed By: #### C BC #### [facility] [address] [place] [address] Dr. Jackelyn Celestin Hematocrit (Bld) [Volume fraction] 33.7 % Critically low 36.0-48.[address] [facility] Comment on above: Performed By: #### C BC #### [facility] [address] [place] [address] Dr. Jackelyn Celestin Hemoglobin (Bld) [Mass/Vol] 12.0 g/dL Normal 12.0-16.[address] [facility] Comment on above: Performed By: #### C BC #### [facility] [address] [place] [address] Dr. Jackelyn Celestin IG # 0.07 10e3/ul Critically high 0.00-0.[address] [facility] Comment on above: Performed By: #### C BC #### [facility] [address] [place] [address] Dr. Jackelyn Celestin IG % 0.6 % Critically high 0.0-0.[address] [facility] Comment on above: Performed By: #### C BC #### [facility] [address] [place] [address] Dr. Jackelyn Celestin LYMPH # 1.3 103/ul Normal 1.2-3.[address] [facility] Comment on above: Performed By: #### C BC #### [facility] [address] [place] [address] Dr. Jackelyn Celestin Lymphocytes/100 WBC (Bld) 11.5 % Critically low 20.5-60.[address] [facility] Comment on above: Performed By: #### C BC #### [facility] [address] [place] [address] Dr. Jackelyn Celestin MANUAL DIFF REQ NO Normal [facility] Comment on above: Performed By: #### C BC #### [facility] [address] [place] [address] Dr. Jackelyn Celestin MCH (RBC) [Entitic mass] 31.0 pg Normal 26.7-34.[address] [facility] Comment on above: Performed By: #### C BC #### [facility] [address] [place] [address] Dr. Jackelyn Celestin MCHC (RBC) [Mass/Vol] 35.6 g/dL Critically high 29.9-35.[address] [facility] Comment on above: Performed By: #### C BC #### [facility] [address] [place] [address] Dr. Jackelyn Celestin MCV (RBC) [Entitic vol] 87.1 fL Normal 81.0-99.[address] [facility] Comment on above: Performed By: #### C BC #### [facility] [address] [place] [address] Dr. Jackelyn Celestin MONO # 0.5 103/ul Normal 0.3-0.[address] [facility] Comment on above: Performed By: #### C BC #### [facility] [address] [place] [address] Dr. Jackelyn Celestin Monocytes/100 WBC (Bld) 4.8 % Normal 1.7-12.[address] [facility] Comment on above: Performed By: #### C BC #### [facility] [address] [place] [address] Dr. Jackelyn Celestin NEUT # 8.9 103/ul Critically high 1.4-6.[address] [facility] Comment on above: Performed By: #### C BC #### [facility] [address] [place] [address] Dr. Jackelyn Celestin Neutrophils/100 WBC (Bld) 81.6 % Critically high 43.0-75.[address] [facility] Comment on above: Performed By: #### C BC #### [facility] [address] [place] [address] Dr. Jackelyn Celestin Platelet mean volume (Bld) [Entitic vol] 11.3 fL Normal 9.5-13.[address] [facility] Comment on above: Performed By: #### C BC #### [facility] [address] [place] [address] Dr. Jackelyn Celestin PLT 171 103/ul Normal 150-[address] [facility] Comment on above: Performed By: #### C BC #### [facility] [address] [place] [address] Dr. Jackelyn Celestin RBC 3.87 106/ul Critically low 4.20-5.[address] [facility] Comment on above: Performed By: #### C BC #### [facility] [address] [place] [address] Dr. Jackelyn Celestin WBC 10.9 103/ul Normal 4.0-11.[address] [facility] Comment on above: Performed By: #### C BC #### [facility] [address] [place] [address] Dr. Jackelyn Celestin GLUCOSE - 1HRon 05-09-2022 Glucose [Mass/Vol] 142 mg/dL Critically high 74-106 [facility] [place] Comment on above: Performed By: #### 4 [id number] #### [facility] [address] [place] [address] Dr. Jackelyn Celestin US PREG BIOPHY W [...] HART Date: 2022-05-09 10:[address] [facility] US PREG PLACENTAon 3 US PREG PLACENTA EXAMINATION: US PREG PLACENTA HISTORY: Falls ; mild cramping after falling COMPARISON: Ultrasound anatomy 03/17/2022 FINDINGS: PLACENTA: Posterior without previa, subchorionic hematoma, or abruption. CERVIX LENGTH: Not evaluated. HEART RATE: 158 bpm OTHER: None. IMPRESSION: 1. Unremarkable posterior placenta. No suspicious findings. Electronically authenticated by: TRISTAN HART Date: 2022-05-09 10:[address] [facility] US PREG ANATOMY SINGLEon US PREG ANATOMY [...] TRISTAN HART Date: 2022-03-17 16:29 Normal [facility] HEP B SURFACE ANTIGEN SCREEN on 02-15-2022 HBsAg Screen Negative Normal Negative [facility] Comment on above: Performed By: #### 4 [id number] #### [facility] [address] [address] [address] Jackelyn Celestin HEPATITIS C VIRUS AB W/ REFL EX QUANTon 02-15-2022 HCV AB <0.1 Normal 0.0-0.[address] [facility] Comment on above: Performed By: #### H CVPCRR #### [facility] [address] [place] [address] Dr. Jackelyn Celestin Interpretation: Comment Normal [facility] Comment on above: Result Comment: Nega tive Not infected with HCV, unless recent infection is suspected or other evidence exists to indicate HCV infection. Performed By: #### H CVPCRR #### [facility] [address] [address] [address] Jackelyn Celestin HIV 1 AND 2 WITH REFLEXon HIV Screen 4th Generation wRfx Non-Reactive Normal Non Reactive [facility] Comment on above: Result Comment: HIV Negative HIV-1/HIV-2 antibodies and HIV-1 p24 antigen were NOT detected. There is no laboratory evidence of HIV infection. Performed By: #### H IV12 #### [facility] [address] [place] [address] Dr. Jackelyn Celsetin RPR QUANTon 02-15-2022 Rapid Plasma Reagin, Quant Non-Reactive Normal NonRea<1:1 [facility] Comment on above: Result Comment: Plea se Note: This test does not meet current guidelines for screening and diagnosis of syphilis. This test is intended for following treatment response in patients being treated for syphilis infection. To screen for syphilis infection, a reflex cascade that includes both RPR and a treponema-specific assay should be utilized, such as Treponema pallidum (Syphilis) Screening [place] (974090) or Rapid Plasma Reagin (RPR) Test With Reflex to Quantitative RPR and Confirmatory Treponema pallidum Antibodies (666790). Performed By: #### R PRQ #### [facility] [address] [place] [address] Dr. Jackelyn Celestin RUBELLA AB IGGon 02-15-2022 Rubella Antibodies, IgG 1.97 index Normal Immune >0.[address] [facility] Comment on above: Result Comment: Non- immune <0.90 Equivocal 0.90 - 0.99 Immune >0.99 Performed By: #### R UBIGG #### [facility] [address] [place] [address] Dr. Jackelyn Celestin CBC AUTO DIFFon 02-12-2022 BASO # 0.0 103/ul Normal 0.0-0.[address] [facility] Comment on above: Performed By: #### C BC #### [facility] [address] [place] [address] Dr. Jackelyn Celestin Basophils/100 WBC (Bld) 0.4 % Normal 0.2-2.[address] [facility] Comment on above: Performed By: #### C BC #### [facility] [address] [place] [address] Dr. Jackelyn Celestin EO # 0.2 103/ul Normal 0.0-0.[address] [facility] Comment on above: Performed By: #### C BC #### [facility] [address] [place] [address] Dr. Jackelyn Celestin Eosinophils/100 WBC (Bld) 2.0 % Normal 0.9-7.0 [facility] Comment on above: Performed By: #### C BC #### [facility] [address] [place] [address] Dr. Jackelyn Celestin Erythrocyte distribution width (RBC) [Ratio] 12.8 % Normal 11.0-15.[address] [facility] Comment on above: Performed By: #### C BC #### [facility] [address] [place] [address] Dr. Jackelyn Celestin Hematocrit (Bld) [Volume fraction] 40.7 % Normal 36.0-48.[address] [facility] Comment on above: Performed By: #### C BC #### [facility] [address] [place] [address] Dr. Jackelyn Celestin Hemoglobin (Bld) [Mass/Vol] 14.4 g/dL Normal 12.0-16.[address] [facility] Comment on above: Performed By: #### C BC #### [facility] [address] [place] [address] Dr. Jackelyn Celestin IG # 0.05 10e3/ul Critically high 0.00-0.[address] [facility] Comment on above: Performed By: #### C BC #### [facility] [address] [place] [address] Dr. Jackelyn Celestin IG % 0.4 % Normal 0.0-0.[address] [facility] Comment on above: Performed By: #### C BC #### [facility] [address] [place] [address] Dr. Jackelyn Celestin LYMPH # 1.7 103/ul Normal 1.2-3.[address] [facility] Comment on above: Performed By: #### C BC #### [facility] [address] [place] [address] Dr. Jackelyn Celestin Lymphocytes/100 WBC (Bld) 15.1 % Critically low 20.5-60.[address] [facility] Comment on above: Performed By: #### C BC #### [facility] [address] [place] [address] Dr. Jackelyn Celestin MANUAL DIFF REQ NO Normal [facility] Comment on above: Performed By: #### C BC #### [facility] [address] [place] [address] Dr. Jackelyn Celestin MCH (RBC) [Entitic mass] 31.2 pg Normal 26.7-34.[address] [facility] Comment on above: Performed By: #### C BC #### [facility] [address] [place] [address] Dr. Jackelny Celestin MCHC (RBC) [Mass/Vol] 35.4 g/dL Critically high 29.9-35.[address] [facility] Comment on above: Performed By: #### C BC #### [facility] [address] [place] [address] Dr. Jackelyn Celestin MCV (RBC) [Entitic vol] 88.1 fL Normal 81.0-99.[address] [facility] Comment on above: Performed By: #### C BC #### [facility] [address] [place] [address] Dr. Jackelyn Celestin MONO # 0.4 103/ul Normal 0.3-0.[address] [facility] Comment on above: Performed By: #### C BC #### [facility] [address] [place] [address] Dr. Jackelyn Celestin Monocytes/100 WBC (Bld) 3.3 % Normal 1.7-12.[address] [facility] Comment on above: Performed By: #### C BC #### [facility] [address] [place] [address] Dr. Jackelyn Celestin NEUT # 8.8 103/ul Critically high 1.4-6.[address] [facility] Comment on above: Performed By: #### C BC #### [facility] [address] [place] [address] Dr. Jackelyn Celestin Neutrophils/100 WBC (Bld) 78.8 % Critically high 43.0-75.[address] [facility] Comment on above: Performed By: #### C BC #### [facility] [address] [place] [address] Dr. Jackelyn Celestin Platelet mean volume (Bld) [Entitic vol] 11.6 fL Normal 9.5-13.5 [facility] Comment on above: Performed By: #### C BC #### [facility] [address] [place] [address] Dr. Jackelyn Celestin PLT 203 103/ul Normal 150-450 [facility] Comment on above: Performed By: #### C BC #### [facility] [address] [place] [address] Dr. Jackelyn Celestin RBC 4.62 106/ul Normal 4.20-5.40 [facility] Comment on above: Performed By: #### C BC #### [facility] [address] [place] [address] Dr. Jackelyn Celestin WBC 11.2 103/ul Critically high 4.0-11.[address] [facility] Comment on above: Performed By: #### C BC #### [facility] [address] [place] [address] Dr. Jackelyn Celestin CULTURE URINEon 02-12-2022 CULTURE URINE Culture Observations : NO GROWTH. Normal [facility] Comment on above: Performed By: #### U RCX #### [facility] [address] [place] [address] Dr. Jackelyn Celestin GLYCOHEMOGLOBIN A1Con 2021 ADA RECOMMENDATION SEE BELOW Normal [facility] Comment on above: Result Comment: ADA RECOMMENDED LIMIT 4.0 - 6.0 ADA THERAPEUTIC TARGET < 7.0 ACTION SUGGESTED > 7.0 Performed By: #### 4 [id number] #### [facility] [address] [place] [address] Dr. Jackelyn Celestin Glucose [Mass/Vol] 94 mg/dL Normal [facility] Comment on above: Performed By: #### 4 [id number] #### [facility] [address] [place] [address] Dr. Jackelyn Celestin HbA1c (Bld) [Mass fraction] 4.9 % Normal 4.5-6.[address] [facility] Comment on above: Performed By: #### 4 [id number] #### [facility] [address] [place] [address] Dr. Jackelyn Celestin TYPE AND SCREENon 02-12-2022 TYPE AND SCREEN Negative Normal [facility] Comment on above: Performed By: #### T NS #### [facility] [address] [place] [address] Dr. Jackelyn Celestin US PREG TVon 01-21-2022 [...] AGUILAR Date: 2022-01-21 16:[address] [facility] Coding Summary.on 12-12-2019 Coding Summary. CODING DATE: 020 FINAL [facility] STATUS: Home (Routine DC) PAYOR: Self [...] CphT Date Saved: 12/12/2019 10:59 am Normal [facility] Medicine Office/Clini c Noteon 11-21-2019 [...] day(s), # 20 tab(s), Refills(s) 0, Pharmacy: [facility], 159, cm, 11/21/19 19:13:00 EDT, Height/Length Dosing, 96, kg, 11/21/19 19:13:00 EDT, Weight Dosing Follow-up No qualifying data available Patient Education Body Mass Index, BMI DASH Diet MyPlate from [employer] Obesity Otitis Media, Adult Problem List/Past Medical [...] cancer: Grandparent. Hypertension: Grandparent. Stroke: Grandparent. Normal [facility] Comment on above: Result Comment: Elec [...] Document Reviewed: 01/04/2006 ExitCare? Patient Information ?2014 [employer]. DASH Diet The DASH diet stands for [...] beef, chicken breast, turkey breast. All fish. [place], bake, or broil your meat. Nothing should [...] Document Reviewed: 03/15/2012 ExitCare? Patient Information ?2013 [employer]. [employer], [employer] The amount you need to eat from [...] Document Reviewed: 06/16/2008 ExitCare? Patient Information ?2013 [employer] [facility]. Family Medicine Obesity Obesity is defined as [...] such as an underactive thyroid (hypothyroidism ), Cinebar's syndrome, and polycystic ovarian syndrome. ? Certain [...] Document Reviewed: 05/02/2012 ExitCare? Patient Information ?2014 [employer]. Otitis Media, Adult A middle ear infection [...] the first few days. ? Only take swqa-zbu-lwhvpre or prescription medicines for pain, discomfort, or [...] Document Reviewed: 10/31/2008 ExitCare? Patient Information ?2013 [employer] [facility]. Normal [facility] SARS-CoV-2, NAAon 11-20-2019 SARS CORONAVIRUS 2 RNA:PRTHR:PT:RESPIRATO RY:ORD:PROBE.AMP.TAR Not Detected Not Detected [facility] Comment on above: Result Comment: This test was developed and its performance characteristics determined by [facility]. This test has not been FDA cleared [...] detected) result in this assay. Performed at: [facility] [id number] [facility] [place] [id number] MD Malaika Velez Performed By: #### S ARS-CoV-2, ALONDRA #### [facility] [address] [place] [address] [facility] Video Visit - Telehealthon 11-16-2019 [facility] Video Visit - Telehealth Chief [...] interactive video communications from my office using [employer] due to the restrictions of the COVID-19 pandemic. No physical exam was conducted other than those areas of the body visible to telecommunications with the patient located at [address] [phone], with no one else in attendance. If [...] cancer: Grandparent. Hypertension: Grandparent. Stroke: Grandparent. Normal [facility] Comment on above: Result Comment: Elec tronically Signed By: Abbey ESTRADA CNP\.ynes\Date and Time Signed: 11/16/19 14:27 EDT URINE CULTUREon 07-10-2017 Urine culture, bacteria SPECIMEN DESCRIPTION URINE CLEAN CATCHUA DIPSTICK NITRITE NEGATIVE * Result Note: LEUKOCYTE NEGATIVE *CULTURE ESCHERICHIA COLI * Result Note: 50,000 C/C/ML * * Result Note: Testing performed at [facility], [place], [place] [address] *REPORT STATUS 07/10/2017 * Result Note: FINAL * O RGANISM ESCHERICHIA COLI * Result Note: ESCHERICHIA COLI *METHOD MICAMPICILLIN <=2 SUSCEPTIBLEAMPICILLIN/SULBA CTAM <=2 SUSCEPTIBLECEFTRIAXONE <=1 SUSCEPTIBLECEFAZOLIN <=4 SUSCEPTIBLEIMIPENEM <=0.25 SUSCEPTIBLEGENTAMICIN <=1 SUSCEPTIBLETRIMETH-SULFA <=20 SUSCEPTIBLEAMOXICILLIN/CLAV ULANIC A <=2 SUSCEPTIBLENITROFURANTOIN 32 SUSCEPTIBLEPIPERACILLIN/SADA OBACTAM <=4 SUSCEPTIBLELEVOFLOXACIN <=0.12 SUSCEPTIBLEESBL NEGATIVECEFTAZIDIME <=1 SUSCEPTIBLE Normal [facility] Comment on above: Performed By: #### A URNC ####Testing performed at [address] [id number] performed at [address] [address] BHCG,QUANTITATIVEon 07-08-19 18 BHCG,QUANTITATIVE 133.56 MIU/ML Normal [facility] Comment on above: Result Comment: [facility] [place] INTERPRETIVE RANGES: NON FEMALE [...] A CBC, BHCG2 ####Testing performed at [address] [address] CBCon 07-07-2017 ABSOLUTE BAS 0.1 X10 Normal [facility] Comment on above: Performed By: #### A CBC, BHCG2 ####Testing performed at [address] [place] [address] ABSOLUTE EOS 0.20 X10 Normal [facility] Comment on above: Performed By: #### A CBC, BHCG2 ####Testing performed at [address] [place] [address] Basophils/100 WBC Auto (Bld) 0.6 % Normal 0.0-2.0 [facility] Comment on above: Performed By: #### A CBC, BHCG2 ####Testing performed at [address] [place] [address] DTYPE AUTO DIFF Normal [facility] Comment on above: Performed By: #### A CBC, BHCG2 ####Testing performed at [address] [place] [address] Eosinophils/100 leukocytes 2.0 % Normal 0.0-11.0 [facility] Comment on above: Performed By: #### A CBC, BHCG2 ####Testing performed at [address] [place] [address] Lymphocytes 2.00 X10 Normal [facility] Comment on above: Performed By: #### A CBC, BHCG2 ####Testing performed at [address] [place] [address] Lymphocytes/100 leukocytes 23.0 % Normal 20.0-55.0 [facility] Comment on above: Performed By: #### A CBC, BHCG2 ####Testing performed at [address] [place] [address] Monocytes 0.6 X10 Normal [facility] Comment on above: Performed By: #### A CBC, BHCG2 ####Testing performed at [address] [address] Monocytes/100 leukocytes 7.1 % Normal 0.0-10.0 [facility] Comment on above: Performed By: #### A CBC, BHCG2 ####Testing performed at [address] [place] [address] Neutrophils 5.9 x10 Normal 1.0-7.0 [facility] Comment on above: Performed By: #### A CBC, BHCG2 ####Testing performed at [address] [address] Neutrophils/100 leukocytes 67.3 % Normal 37.0-75.0 [facility] Comment on above: Performed By: #### A CBC, BHCG2 ####Testing performed at [address] [address] Erythrocyte distribution width Auto Ratio (RBC) 12.1 % Normal 11.5-14.5 [facility] Comment on above: Performed By: #### A CBC, BHCG2 ####Testing performed at [address] [address] Erythrocytes (RBC) 4.72 /cmm Normal 4.0-5.4 [facility] Comment on above: Performed By: #### A CBC, BHCG2 ####Testing performed at [address] [address] Hematocrit (HCT) 43.2 % Normal 36.0-48.0 [facility] Comment on above: Performed By: #### A CBC, BHCG2 ####Testing performed at [address] [address] Hemoglobin mass conc (Bld) 15.1 g/dL Normal 12.0-16.0 [facility] Comment on above: Performed By: #### A CBC, BHCG2 ####Testing performed at [address] [address] MCH 32.0 pg Normal 26.0-35.0 [facility] Comment on above: Performed By: #### A CBC, BHCG2 ####Testing performed at [address] [address] MCHC mass conc (RBC) 35.0 g/dL Normal 27.0-37.0 [facility] Comment on above: Performed By: #### A CBC, BHCG2 ####Testing performed at [address] [address] MCV 91.5 fL Normal 80.0-100.0 [facility] Comment on above: Performed By: #### A CBC, BHCG2 ####Testing performed at [address] [address] Platelet mean volume (PMV) 9.2 fL Normal 7.4-11.0 [facility] Comment on above: Performed By: #### A CBCALEXANDRACG2 ####Testing performed at [address] [address] Platelets 235 /cmm Normal 130.0-400. 0 [facility] Comment on above: Performed By: #### A CBCALEXANDRACG2 ####Testing performed at [address] [address] WBC (Leukocytes) 8.8 /cmm Normal 3.6-11.0 [facility] Comment on above: Performed By: #### A CBCALEXANDRACG2 ####Testing performed at [address] [address] ED NOTEon 07-07-2017 [facility] NOTES Normal [facility] ED PROVIDERon 07-07-2017 [facility] NOTES Normal [facility] URINE MACROSCOPICon 07-08-19 18 Bilirubin Ql (U) Negative Normal NEGATIVE [facility] Comment on above: Performed By: #### U MAC, UMIC ####Testing performed at [address] [address] URINE HEMOGLOBIN LARGE Abnormal NEGATIVE [facility] Comment on above: Performed By: #### U MAC, UMIC ####Testing performed at [address] [address] URINE KETONE Negative Normal NEGATIVE [facility] Comment on above: Performed By: #### U MAC, UMIC ####Testing performed at [address] [address] URINE LEUKOTEST Negative Normal NEGATIVE [facility] Comment on above: Performed By: #### U MAC, UMIC ####Testing performed at [address] [address] URINE NITRATES Negative Normal NEGATIVE [facility] Comment on above: Performed By: #### U MAC, UMIC ####Testing performed at [address] [address] URINE SPEC GRAVITY 1.025 Normal 1.010-1.0 2 5 [facility] Comment on above: Performed By: #### U MAC, UMIC ####Testing performed at [address] [place] [address] URINE TOTAL PROTEIN Negative Normal NEGATIVE [facility] Comment on above: Performed By: #### U MAC, UMIC ####Testing performed at [address] [place] [address] Urine, clarity CLEAR Normal CLEAR [facility] Comment on above: Performed By: #### U MAC, UMIC ####Testing performed at [address] [place] [address] Urine, color YELLOW Normal YELLOW [facility] Comment on above: Performed By: #### U MAC, UMIC ####Testing performed at [address] [place] [address] Urine, glucose presence Negative Normal NEGATIVE [facility] Comment on above: Performed By: #### U MAC, UMIC ####Testing performed at [address] [place] [address] Urine, pH 7.0 [pH] Normal 5.0-7.0 [facility] Comment on above: Performed By: #### U MAC, UMIC ####Testing performed at [address] [place] [address] Urine, urobilinogen 1.0 mg/dl Normal 0.2-1.0 [facility] Comment on above: Performed By: #### U MAC, UMIC ####Testing performed at [address] [address] URINE MICROSCOPICon 07-08-19 18 CRYSTAL OCCASIONAL Abnormal NONE [facility] Comment on above: Result Comment: CHRIS PHOUS PHOSPHATES Performed By: #### U MAC, UMIC ####Testing performed at [address] [place] [address] URINE COMMENT REFLEX CULTURE PER ESTABLISHED CRITERIA. Normal [facility] Comment on above: Performed By: #### U MAC, UMIC ####Testing performed at [address] [place] [address] URINE WBC'S 1 TO 5 Normal NEGATIVE [facility] Comment on above: Performed By: #### U MAC, UMIC ####Testing performed at [address] [place] [address] Urine, bacteria in sediment 1+ Abnormal NEGATIVE [facility] Comment on above: Performed By: #### U MAC, UMIC ####Testing performed at [address] [place] [address] Urine, casts in sediment NONE Normal NONE [facility] Comment on above: Performed By: #### U MAC, UMIC ####Testing performed at [address] [place] [address] Urine, epithelial cells in sediment 1 TO 5 Normal [facility] Comment on above: Performed By: #### U MAC, UMIC ####Testing performed at [address] [address] Urine, erythrocytes 1 TO 5 Normal NEGATIVE [facility] Comment on above: Performed By: #### U MAC, UMIC ####Testing performed at [address] [place] [address] Urine, mucus presence in sediment Negative Normal NEGATIVE [facility] Comment on above: Performed By: #### U MAC, UMIC ####Testing performed at [address] [place] [address] BhCG Quanton 07-05-2017 HCG.beta subunit Qn 238.0 mIU/m Normal [facility] Comment on above: Result Comment: FEMA LE (NON-) & MALE <3 BORDERLINE 3 - 5 SUGGEST REPEAT TESTING FEMALE () 1 D - 1 WK 5 - 50 1 - 2 WK 50 - 500 2 - 3 WK 100 - 5000 3 - 4 WK 500 - 40067 4 - 5 WK 1000 - 15621 5 - 6 WK [address] - 920041 6 - 8 W[place] [address] - 324365 2 - 3 [place] [address] - [address] Performed By: #### 2 [id number] ####JIMMIE XepJikk[address] [place] [address] Auto Diffon 07-04-2017 Basophils Auto #/vol (Bld) 0.1 E3/mcL Normal 0.0-0.2 [facility] Comment on above: Order Comment: Order Added by Discern Expert. Performed By: #### 2 [id number] ####JIMMIE TdhWnpa7455 [place] [address] Basophils/100 WBC Auto (Bld) 0.6 % Normal 0.0-2.0 [facility] Comment on above: Order Comment: Order Added by Discern Expert. Performed By: #### 2 [id number] ####JIMMIE DanLqwTkbu9042 [place] [address] Eos Absolute 0.3 E3/mcL Normal 0.0-0.7 [facility] Comment on above: Order Comment: Order Added by Discern Expert. Performed By: #### 2 [id number] ####JIMMIE DanCstInza0248 [place] [address] Eosinophils/100 leukocytes 2.5 % Normal 0.0-11.0 [facility] Comment on above: Order Comment: Order Added by Discern Expert. Performed By: #### 2 [id number] ####JIMMIE DanSeaPqvx9943 [place] [address] Lymphocytes 2.3 E3/mcL Normal 1.2-3.4 [facility] Comment on above: Order Comment: Order Added by Discern Expert. Performed By: #### 2 606497 ####JIMMIE DanCxtHncr3613 [place] [address] Lymphocytes/100 leukocytes 22.2 % Normal 20.0-55.0 [facility] Comment on above: Order Comment: Order Added by Discern Expert. Performed By: #### 2 271105 ####JIMMIE DanVftGyos2844 [place] [address] [place] Absolute 0.8 E3/mcL High 0.0-0.7 [facility] Comment on above: Order Comment: Order Added by Discern Expert. Performed By: #### 2 950283 ####JIMMIE DanPyjFsxw4500 [place] [address] Monocytes/100 leukocytes 7.6 % Normal 0.0-10.0 [facility] Comment on above: Order Comment: Order Added by Discern Expert. Performed By: #### 2 799989 ####JIMMIE DanIooUpko4685 [place] [address] Neutro Absolute 6.9 E3/mcL High 1.4-6.5 [facility] Comment on above: Order Comment: Order Added by Discern Expert. Performed By: #### 2 000734 ####JIMMIE DanFubGcic5709 [place] [address] Neutro Auto 67.1 % Normal 37.0-75.0 [facility] Comment on above: Order Comment: Order Added by Discern Expert. Performed By: #### 2 682807 ####JIMMIE DanCjrJzym7166 [place] [address] BMPon 07-04-2017 BUN/Creatinine Ratio 21.7 ratio Normal 5.4-30.0 [facility] Comment on above: Performed By: #### 2 181404 ####JIMMIE OggXtoc7311 [place] [address] Creatinine 0.6 mg/dL Normal 0.6-1.3 [facility] Comment on above: Performed By: #### 2 531769 ####JIMMIE ZzfIolc0268 [place] [address] Urea nitrogen 13 mg/dL Normal 7-18 [facility] Comment on above: Performed By: #### 2 064498 ####JIMMIE VubBdaw4772 [place] [address] Calcium 8.4 mg/dL Normal 8.4-10.2 [facility] Comment on above: Performed By: #### 2 469476 ####JIMMIE KkfMose6728 [place] [address] Chloride 100 mmol/L Normal 98-107 [facility] Comment on above: Performed By: #### 2 131782 ####JIMMIE RugOiwf7018 [place] [address] CO2 27.7 mmol/L Normal 24.0-30.0 [facility] Comment on above: Performed By: #### 2 642950 ####JIMMIE HcfCauv4160 [place] [address] Glucose mass conc 98 mg/dL Normal 70-99 [facility] Comment on above: Performed By: #### 2 986605 ####JIMMIE MgnFzfk4737 [place] [address] Potassium molar conc 3.4 mmol/L Low 3.5-5.1 [facility] Comment on above: Performed By: #### 2 111671 ####JIMMIEJonathan DanJamKrwd1982 [place] [address] Sodium 133 mmol/L Low 136-145 [facility] Comment on above: Performed By: #### 2 936358 ####JIMMIE WjcWdwi4979 [place] [address] BhCG Quanton 07-04-2017 HCG.beta subunit Qn 190.8 mIU/m Normal [facility] Comment on above: Result Comment: FEMA LE (NON-) & MALE <3 BORDERLINE 3 - 5 SUGGEST REPEAT TESTING FEMALE () 1 D - 1 WK 5 - 50 1 - 2 WK 50 - 500 2 - 3 WK 100 - 5000 3 - 4 WK 500 - 77451 4 - 5 WK 1000 - [address]48[address] 5 - 6 WK [address] - 393670 6 - 8 W[place] [address] - 002722 2 - 3 [place] [address] - [address] Performed By: #### 2 785561 ####JIMMIEJonathan DanGxhWzwb6652 [place] [address] CBC w/ Auto Diffon 8 Erythrocyte distribution width Auto Ratio (RBC) 11.6 % Normal 11.5-14.5 [facility] Comment on above: Performed By: #### 2 562032 ####JIMMIEJonathan OzunaXliVgje6162 [place] [address] Erythrocytes (RBC) 4.43 E6/mcL Normal 3.90-5.40 [facility] Comment on above: Performed By: #### 2 278648 ####JIMMIEJonathan OzunaTarYcnn1576 [place] [address] Hematocrit (HCT) 40.1 % Normal 36.0-48.0 [facility] Comment on above: Performed By: #### 2 817820 ####JIMMIE Ozunao1025 [place] [address] Hemoglobin mass conc (Bld) 14.1 g/dL Normal 12.0-16.0 [facility] Comment on above: Performed By: #### 2 520656 ####JIMMIE Ozunao1025 [place] [address] MCH 31.7 pg High 27.0-31.0 [facility] Comment on above: Performed By: #### 2 701769 ####JIMMIE Ozunao1025 [place] [address] MCHC mass conc (RBC) 35.1 g/dL Normal 33.0-37.0 [facility] Comment on above: Performed By: #### 2 968699 ####JIMMIE Ozunao1025 [place] [address] MCV 90.4 fL Normal 78.0-100.0 [facility] Comment on above: Performed By: #### 2 911695 ####JIMMIE Ozunao1025 [place] [address] Platelet mean volume (PMV) 8.4 fL Normal 7.4-11.0 [facility] Comment on above: Performed By: #### 2 525357 ####JIMMIE Ozunao1025 [place] [address] Platelets 232 E3/mcL Normal 130-400 [facility] Comment on above: Performed By: #### 2 673182 ####JIMMIE Ozunao1025 [place] [address] WBC (Leukocytes) 10.3 E3/mcL Normal 3.6-11.0 [facility] Comment on above: Performed By: #### 2 029030 ####JIMMIE Ozunao1025 [place] [address] Hep Func Panelon 07-04-2017 Alanine aminotransferase (ALT) 15 Int._Unit/L Normal 10-40 [facility] Comment on above: Performed By: #### 2 069110 ####JIMMIE BbgNgvr3056 [place] [address] Albumin 3.8 g/dL Normal 3.2-5.0 [facility] Comment on above: Performed By: #### 2 345882 ####JIMMIE ZjlYvic6231 [place] [address] Albumin/Globulin Ratio 1.4 {ratio} Normal 1.1-1.9 [facility] Comment on above: Performed By: #### 2 066435 ####JIMMIE SltPjss0212 [place] [address] Alk Phos 36 Int._Unit/L Low 42-121 [facility] Comment on above: Performed By: #### 2 736586 ####JIMMIE EhrZtqt7144 [place] [address] Aspartate aminotransferase (AST) 18 Int._Unit/L Normal 10-42 [facility] Comment on above: Performed By: #### 2 691982 ####JIMMIE TcpIbsq0446 [place] [address] Bili Direct <.10 Normal .00-.20 [facility] Comment on above: Performed By: #### 2 525206 ####JIMMIE McbMsxh8518 [place] [address] Bili Indirect >0.7 Normal [facility] Comment on above: Result Comment: No e stablished ranges available for the Indirect Biliruben. Performed By: #### 2 339193 ####JIMMIE DchQzaz7598 [place] [address] Bili Total 0.8 mg/dL Normal 0.2-1.0 [facility] Comment on above: Performed By: #### 2 695871 ####JIMMIEJonathan DanSfrNjzr2864 [place] [address] Globulin 2.8 g/dL Normal 2.0-4.0 [facility] Comment on above: Performed By: #### 2 449894 ####JIMMIE JibQkov7131 [place] [address] Protein 6.6 g/dL Normal 6.4-8.3 [facility] Comment on above: Performed By: #### 2 733462 ####JIMMIE TkmNuwz3019 [place] [address] Lipase Levelon 07-04-2017 Lipase Lvl 19 U/L Normal 8-57 [facility] Comment on above: Performed By: #### 2 989176 ####JIMMIE PjzVhvy4729 [place] [address] U BhCG Qlton 07-04-2017 HCG.beta subunit Qn Positive Normal Neg [facility] Comment on above: Performed By: #### 2 347940 ####JIMMIE Urinalysis Manual Eghynmaifa9818 [place] [address] UA Completeon 07-04-2017 UA Blood 3+ Normal Negative [facility] Comment on above: Performed By: #### 8 [id number] ####JIMMIE Urinalysis Automated Eynojxouqb8220 [place] [address] UA Bacteria Trace Abnormal None [facility] Comment on above: Performed By: #### 8 [id number] ####JIMMIE Urinalysis Automated Wwjllgoxjj6056 [place] [address] UA Clarity SltCloudy Abnormal Clear [facility] Comment on above: Performed By: #### 8 [id number] ####JIMMIE Urinalysis Automated Selpiathki0610 [place] [address] UA Leuk Est Trace Normal Negative [facility] Comment on above: Performed By: #### 8 [id number] ####JIMMIE Urinalysis Automated [address] [place] [address] UA Mucous Occasional Abnormal Trace [facility] Comment on above: Performed By: #### 8 [id number] ####JIMMIE Urinalysis Automated [address] [place] [address] UA Nitrite Negative Normal Negative [facility] Comment on above: Performed By: #### 8 [id number] ####JIMMIE Urinalysis Automated [address] [place] [address] UA pH 5.0 Normal 4.6-8.0 [facility] Comment on above: Performed By: #### 8 7898781 ####JIMMIE Urinalysis Automated Wzadfoxlit7949 [place] [address] UA Protein Negative Normal Negative [facility] Comment on above: Performed By: #### 8 [id number] ####JIMMIE Urinalysis Automated Pepvhcdnww0811 [place] [id number] UA Spec Grav 1.027 Normal 1.003-1.03 0 [facility] Comment on above: Performed By: #### 8 [id number] ####JIMMIE Urinalysis Automated Pytylusqsk9701 [place] [address] UA Squam Epithelial 0-5 Normal 0-5 [facility] Comment on above: Performed By: #### 8 [id number] ####JIMMIE Urinalysis Automated [address]rb[address] [place] 8865005 UA Urobilinogen Negative Normal [facility] Comment on above: Performed By: #### 8 4461092 ####JIMMIE Urinalysis Automated Bngbhyoxes1459 [place] [address] UA WBC 10-20 Abnormal 0-5 [facility] Comment on above: Performed By: #### 8 [id number] ####JIMMIE Urinalysis Automated Ufoqozrciq8228 [place] [address] Urine, color Yellow Normal Yellow [facility] Comment on above: Performed By: #### 8 [id number] ####JIMMIE Urinalysis Automated Ozfkwircgg5374 [place] [address] Urine, erythrocytes 5-10 Abnormal 0-3 [facility] Comment on above: Performed By: #### 8 [id number] ####JIMMIE Urinalysis Automated Euqkwtwnqd9755 [place] [address] Urine, glucose Negative Normal Negative [facility] Comment on above: Performed By: #### 8 [id number] ####JIMMIE Urinalysis Automated Iokvizkbqt6566 [place] [address] Urine, ketones presence Negative Normal Negative [facility] Comment on above: Performed By: #### 8 1371109 ####JIMMIE Urinalysis Automated Ifcymrrwiu9652 [place] [address] Urine, urobilinogen Negative Normal Negative [facility] Comment on above: Performed By: #### 8 [id number] ####JIMMIE Urinalysis Automated Mzszksjeic3151 [place] [address] eGFRon 07-04-2017 eGFR (non-black) mL/min/{1.73_m2} Normal [facility] Comment on above: Order Comment: Order added by Discern Expert. Performed By: #### 1 [id number] ####JIMMIE BbvWqnt4828 [place] [address] Vital Signs Date Time Vital Sign Value Performing Clinician Cong reynolds 04-20-2023 14:07-0500 Diastolic blood pressure 75 mm[Hg] [facility] 04-20-2023 14:07-0500 Heart rate 93 /min [facility] 04-20-2023 14:07-0500 Respiratory rate 18 /min [facility] 04-20-2023 14:07-0500 SaO2% (BldA) [Mass fraction] 99 % [facility] [address] [place] [address] 04-20-2023 14:07-0500 Systolic blood pressure 127 mm[Hg] [facility] [address] [place] [address] 04-20-2023 14:06-0500 Body height 160 cm [facility] [address] [place] [address] 04-20-2023 14:06-0500 Body mass index (BMI) [Ratio] 37.22 kg/m2 [facility] [address] [place] [address] 04-20-2023 14:06-0500 Body temperature 97.7 [degF] [facility] [address] [place] [address] 04-20-2023 14:06-0500 Body weight 95.3 kg [facility] [address] [place] [address] 03-10-2023 23:05-0500 Diastolic blood pressure 80 mm[Hg] Supriya Aichholz Work Phone: [facility] 03-10-2023 23:05-0500 Heart rate 100 /min Supriya Aichholz Work Phone: [facility] 03-10-2023 23:05-0500 Respiratory rate 20 /min Supriya Aichholz Work Phone: [facility] 03-10-2023 23:05-0500 SaO2% (BldA) [Mass fraction] 98 % Supriya Aichholz Work Phone: [facility] 03-10-2023 23:05-0500 Systolic blood pressure 137 mm[Hg] Supriya Aichholz Work Phone: [facility] 03-10-2023 17:38-0500 Body temperature 97.9 [degF] Supriya Aichholz Work Phone: [facility] 03-10-2023 17:32-0500 Body height 160.02 cm Supriya Aichholz Work Phone: [facility] 03-10-2023 17:32-0500 Body weight 95 kg Supriya Aichholz Work Phone: [facility] Encounters Encounter Date Encounter Type Care Provider Facility Start: 09-13-2023 End: 09-13-2023 ambulatory XIN MORTEZA Not Available Start: 08-30-2023 End: 08-30-2023 ambulatory STEFAN STATON Not Available Start: 08-14-2023 End: 08-14-2023 ambulatory XIN MORTEZA Not Available Start: 07-04-2023 End: 07-04-2023 ambulatory STEFAN STATON Not Available Start: 06-26-2023 End: 06-26-2023 ambulatory XIN MORTEZA Not Available Start: 06-05-2023 End: 06-05-2023 ambulatory XIN MORTEZA Not Available Start: 05-22-2023 End: 05-22-2023 [facility] Start: 05-22-2023 End: 05-22-2023 Postop follow up visit related to original px Gerson Malik MD Work Phone[facility] Comment on above: Status [...] 05-04[facility]2023 [facility] Start: 05-04-2023 End: 05-04-2023 Evaluation and management of inpatient [facility] Start: 04-20-2023 End: 04-20-2023 ambulatory [facility] Start: 04-20-2023 End: 04-20-2023 Patient encounter procedure [facility] Provider 10 [facility] Start: 03-31-2023 End: 03-31-2023 ambulatory XIN MORTEZA Not Available Start: 03-30-2023 End: 03-30-[address] [facility] Start: 03-14-2023 End: 03-14-2023 ambulatory XIN MORTEZA Not Available Start: 03-10-2023 End: 03-11-2023 Emergency department patient visit Jacky Alarcon Facility:[facility] Start: 03-10-2023 End: 03-10-2023 Emergency department patient visit Supriya Emmanuelreillyangie Work Phone: [facility] Work Phone: Start: 03-07-2023 [...] End: 07-07-2017 Emergency department patient visit [facility] Start: 07-05-2017 End: 07-06-2017 Ambulatory Dickson Ahmadi Facility:[facility] Start: 07-04-2017 End: 07-04-2017 Emergency department patient visit Dickson Reinoso Crucible Facility:[facility] Procedures Date Procedure Procedure Detail Performing [...] Td Vaccines (5 - Td or Tdap) [facility] Start: 05-04-2024 Adult BMI Screening Adult BMI Screen ing [facility] Start: 05-04-2024 Tobacco Screening Tobacco Screening [facility] Start: 04-20-2024 Adult BMI Screening Adult BMI Screen ing [facility] Start: 04-20-2024 Tobacco Screening Tobacco Screening [facility] Start: 06-05-2023 End: 06-05-2023 Patient encounter procedure 06/05/2023 9:50 AM EST Routine [facility] [address] [place] [id number] Xin Pro, DO [address] [place] [address] [facility] Start: 05-04-2023 End: 05-04-2023 Admission to same day surgery center 05/04/2023 7:30 AM EST - 05/04/2023 9:30 AM EST Surgery [facility] Surgery [address] [place] [address] [id number] Gerson Malik MD [address] [place] [address] DAVINCI CHOLECYSTECTOMY [facility] Surgery Comment on above: DAVINCI CHOLECYSTECT ANDREA Start: 05-04-2023 End: 05-04-2023 DAVINCI CHOLECYSTECTOMY DAVINCI CHOLECYSTECTOMY CHOLELITHIASIS 05/04/2023 7:30 AM EST [facility] Start: 05-04-2023 End: 05-04-2023 DAVINCI CHOLECYSTECTOMY CHOLANGIOGRAM DAVINCI CHOLECYSTECTOMY CHOLANGIOGRAM CHOLELITHIASIS 05/04/2023 7:30 AM EST [facility] Start: 05-04-2023 Subsequent hospital visit by physician 05/04/2023 7:30 AM EST Hospital Encounter [facility] [address] [place] [address]. [place] [address] Gerson Malik MD [address] [place] [address] [facility] Start: 03-10-2023 US Gallbladder [facility] Start: 03-10-2023 US scan of gallbladder US gall bladd er [facility] Start: 03-10-2023 Bacteria identified in Urine by Culture [facility] Start: 12-09-2022 Influenza vaccination Influenza Vacc ine [facility] Start: 2019 Screening for malign ant neoplasm of cervix Pap Smear [facility] Start: 2016 Adult BMI Follow Up Plan Adult BMI F ollow Up Plan [facility] Start: 2010 [facility] Second Month Nausea and Vomiting, Adult ED Gallstones ED [facility] Work Phone: Patient referral [facility] Work Phone: Payers Date Payer Category Payer Unknown [id number] 2022 Private Health Insurance [id number] 2022 Unknown [id number] 2017 Unknown 1998 Unknown [id number] 2.16.84 [id number] 1998 Unknown [id number] 2.16.84 [id number] 1998 Unknown [id number] 2.16.84 [id number] 1998 Unknown [id number] 2.16.84 0.1.511156.3.579.2.593 1998 Unknown [id number] 2.16.84 0.1.185332.3.579.2.593 1998 Unknown [id number] 2.16.84 0.1.368093.3.579.2.593 1998 Unknown [id number] 2.16.84 0.1.007778.3.579.2.593 1998 Unknown [id number] 2.16.84 0.1.079720.3.579.2.593 1998 Unknown [id number] 2.16.84 0.1.098389.3.579.2.593 1998 Unknown [id number] 2.16.84 0.1.745594.3.579.2.593 1998 Unknown [id number] 2.16.84 0.1.831380.3.579.2.593 1998 Unknown [id number] 2.16.84 0.1.305401.3.579.2.593 1998 Unknown [id number] 2.16.84 0.1.996855.3.579.2.593 1998 Unknown [id number] 2.16.8 40.1.928427.3.579.2.1286 1998 Unknown [id number] 2.16.8 40.1.474626.3.579.2.1286 1998 Unknown [id number] 2.16.8 40.1.666383.3.579.2.1286 1998 Unknown [id number] 2.16.8 40.1.707943.3.579.2.1286 1998 Unknown [id number] 2.16.84 0.1.696871.3.579.2.1286 1998 Unknown [id number] 2.16.84 0.1.270914.3.579.2.1286 1998 Unknown [id number] 2.16.84 0.1.382886.3.579.2.1259 1998 Unknown [id number] 2.16.84 0.1.265633.3.579.2.1259 1998 Unknown [id number] 2.16.84 0.1.845905.3.579.2.9 1998 Unknown [id number] 2.16.84 0.1.555378.3.579.2.1259 1998 Unknown [id number] 2.16.84 0.1.721982.3.579.2.1259 1998 Unknown [id number] 2.16.84 0.1.588816.3.579.2.1259 1998 Unknown [id number] 2.16.84 0.1.491051.3.579.2.1259 1998 Unknown [id number] 2.16.840 .1.239651.3.579.2.1259 1998 Unknown [id number] 2.16.840 .1.960861.3.579.2.9 1998 Unknown [id number] 2.16.840 .1.059944.3.579.2.1259 1959 Private Health Insurance [id number] 1959 Self-pay 1959 Unknown [id number] 1959 Unknown [id number] Unknown [id number] 2.16.8 40.1.878758.3.579.2.531 Social History Date Type Detail Facility Start: 03-10-2023 End: 03-30-2023 Tobacco smoking status NHIS Never smoked tobacco (finding) [facility] Start: 2000 Sex Assigned At Female F [facility] Start: 03-30-2023 End: 05-16-2023 Tobacco use and exposure Smokeless tobacco non-user [facility] Start: 04-20-2023 End: 05-04-2023 Alcohol intake Ex-drinker (finding) [facility] Start: 05-21-2020 End: 04-20-2023 History of Social function [facility] Start: 05-21-2020 End: 04-20-2023 Tobacco use panel [facility] Housing Instability Unknown [facility] Start: 2000 Sex Assigned At Not on file P [facility] Start: 05-16-2023 Alcohol intake Lifetime non-d yrn (finding) [facility] Start: 02-10-2023 [facility] History of [...] up: As needed documented in this encounter [facility] [employer] Instructions 04-20-2023 Patient Instructions Note Date & Type Note Facility 04-20-2023 Instructions Terri Estrada RN - 04/20/2023 1:45 PM EST Your surgery/procedure is scheduled at [facility] on 05/04/23 at [address] [facility] Address: [address] [place] [address] Park in [address] Parking lot located on [facility]. Report to the Entrance B. Check in at the information desk the surgery. The waiting room located on the second floor. If you have any questions prior to surgery, please call Pre-Admission Clinic at [phone] between 7:30 am and 4:30 pm Monday through Monday. If you have questions the morning of surgery, please call the Pre-op Department at [phone]. PLEASE FOLLOW THESE INSTRUCTIONS OR YOUR SURGERY [...] would like to schedule therapy at a [facility] facility, please call [phone] ([phone]). Do not use lotions, creams, powders, perfume, make up, cologne or after-shaves day of surgery. Remove ALL jewelry including wedding rings, body piercings,hair extensions that contain metal, nail cymraes, make-up, and contact lens. You may brush [...] RIGHTS AND RESPONSIBILITIES As a patient at [facility], you have the right to: Receive medical care and be informed of who is taking care of you Be treated with dignity and respect Have a family member/education courses sales representative of choice and your physician notified of your admission Receive information and actively participate in decisions about your care and treatment Refuse care, treatment and services Decide who may provide your support and speak for you Access restorationist and spiritual services Participate in ethical issues [...] of hospital charges and payment methods Patient/patient education courses sales representative responsibilities are to: Provide information [...] in clean clothes. documented in this encounter [facility] Note 04-20-2023 Perioperative Nursing Note - Lexi Reddy RN - 04/20/2023 1:45 PM EST Note Date & Type Note Facility 04-20-2023 Miscellaneous Notes Formattin g of this note might be different from the original. Appt reminder call done-message left documented in this encounter [facility] Nurse Note 04-20-2023 Perioperative Nursing Note - Lexi Reddy RN - 04/20/2023 1:45 PM EST Note Date & Type Note Facility 04-20-2023 Nurse Note Appt reminder call done-message left [facility] Evaluation note Note Date & Type Note Facility Evaluation note No assessment information availa nusrat [facility] Work Phone: Evaluation note Note Date & Type Note Facility Evaluation note Diagnosis Status post laparoscopic cholecystectomy- Primary Other postprocedural status documented in this encounter [facility] Hospital Discharge instructions Note Date & Type Note Facility Hospital Discharge instructions Additional Instructions Return if symptoms are worse Continue your Zofran and Reglan at home and will add Phenergan for vomiting Follow-up with your surgeon [facility] Work Phone: Instructions Attachments Note Date & Type Note Facility Instructions The following attachments cannot be sent through Care Everywhere.Cholecystectomy Discharge Instructions (Amharic)documented in this encounter [facility] Summary Purpose Family History No [...] section and content) DATE CREATED AUTHOR 09/28/2017 [facility] DATE CREATED AUTHOR AUTHOR'S ORGANIZ ATION 09/29/2017 [facility] DATE CREATED AUTHOR AUTHOR'S ORGANIZ ATION 04/16/2020 [facility] DATE CREATED AUTHOR AUTHOR'S ORGANIZ ATION 08/24/2022 [facility] DATE CREATED AUTHOR AUTHOR'S ORGANIZ ATION 03/21/2023 [facility] DATE CREATED AUTHOR AUTHOR'S ORGANIZ ATION 05/24/2023 [facility] DATE CREATED AUTHOR AUTHOR'S ORGANIZ ATION 09/14/2023 [facility] [employer] Care Teams (unrecognized sec tion and content) Team Status: Active Member Role Status Dates Supriya Cerrato Primary Care Provider Active Team Status: Inactive Member Role Status Dates Supriya Cerrato Primary Care Provider Active Jacky Alarcon MD Emergency Provider Active [employer] Relationship Specialty Start Date End Date Supriya Cerrato, KD-JULIO [address] [place] [id number] PCP - General Nurse Practitioner 03/30/23 [employer] Relationship Specialty Start Date End Date Supriya CerratoKD-JULIO [address] [place] [id number] PCP - General Nurse Practitioner 03/30/23 Goals [...] BE BASED ON THE PRIMARY CLINICAL RECORDS. [facility] [employer] [facility]. provides no warranty or guarantee of the accuracy or completeness of information in this document.
--- OUTSIDE RECORDS SUMMARY | 2023-09-20 07:02 | XMS_ITS | CCD ---
Author Organization [facility] CliniSynm Care Team Providers Care Combination Window Installer Name Role Phone [place], Dickson W Unavailable Unavailable [place], Dickson W Unavailable Unavailable No Doctor Assigned, Nodr Unavailable Unavail able Galdino, Dickson W Unavailable Unavailable Galdino, Dickson W Unavailable Unavailable No Doctor Assigned, Nodr Unavailable Unavail able SHEMAR ., STEFAN Admitting Unavailable SHEMAR ., STEFAN Consulting Unavailable AICHHOLZ, WASHER CUTTER SUPRIYA Primary Care Unavailable SHEMAR ., STEFAN Attending Unavailable MORTEZA ., DR LAUREN Admitting Unavailable SHEMAR ., STEFAN Consulting Unavailable AICHHOLZ, WASHER CUTTER SUPRIYA Primary Care Unavailable MORTEZA ., DR LAUREN Attending Unavailable SHEMAR ., STEFAN Admitting Unavailable SHEMAR ., STEFAN Consulting Unavailable SHEMAR ., STEFAN Attending Unavailable AICHHOLZ, WASHER CUTTER SUPRIYA Primary Care Unavailable AICHHOLZ, WASHER CUTTER SUPRIYA Primary Care Unavailable MORTEZA ., DR LAUREN Attending Unavailable MORTEZA ., DR LAUREN Admitting Unavailable MORTEZA ., DR LAUREN Admitting Unavailable MORTEZA ., DR LAUREN Attending Unavailable AICHHOLZ, WASHER CUTTER SUPRIYA Primary Care Unavailable MORTEZA ., DR LAUREN Consulting Unavailable KARASIK ., DR MURPHY Attending Unavailabl e AICHHOLZ, WASHER CUTTER SUPRIYA Primary Care Unavailable KARASIK ., DR [...] MORTEZA ., DR LAUREN Consulting Unavailable AICHHOLZ, WASHER CUTTER SUPRIYA Primary Care Unavailable MORTEZA ., DR LAUREN Attending Unavailable Zieber, Tristan Consulting Unavailable MORTEZA ., DR LAUREN Consulting Unavailable REQUEST, DR NONE LISTED Primary Care Unavaila ble MORTEZA ., DR LAUREN Attending Unavailable MORTEZA ., DR LAUREN Admitting Unavailable ZiebTristan diaz Consulting Unavailable MORTEZA ., DR LAUREN Admitting Unavailable AICHHOLZ, WASHER CUTTER SUPRIYA Primary Care Unavailable MORTEZA ., DR LAUREN Attending Unavailable SHELBY, DR DONALD Bryan Consulting Unavailable MORTEZA ., DR LAUREN Consulting Unavailable MORTEZA ., DR LAUREN Admitting Unavailable AICHHOLZ, WASHER CUTTER SUPRIYA Primary Care Unavailable MORTEZA ., DR LAUREN Attending Unavailable MORTEZA ., DR LAUREN Consulting Unavailable SHEMAR ., STEFAN Attending Unavailable SHEMAR ., STEFAN Admitting Unavailable Zieber, Tristan Consulting Unavailable REQUEST, DR NONE LISTED Primary Care Unavaila ble SHEMAR ., STEFAN Consulting Unavailable MORTEZA ., DR LAUREN Admitting Unavailable MORTEZA ., DR LAUREN Consulting Unavailable MORTEZA ., DR LAUREN Attending Unavailable AICHHOLZ, WASHER CUTTER SUPRIYA Primary Care Unavailable Paula Cerratoa J Primary Care Provider MD Jacky Alarcon Emergency Provider [phone] Jacky Alarcon Attending Unavailable Jacky Alarcon Admitting Unavailable Supriya Cerrato Primary Care Unavailable Aichholz CYLINDER PRESS OPERATOR HELPER-WASHER CUTTER, Supriya Govea Primary Care Provider Unavailable Primary [...] Attending Unavailable XIN PRO Attending Unavailable STEFAN STAOTN Attending Unavailable MORTEZA, XIN Attending Unavailable MORTEZA, XIN Attending Unavailable STEFAN STATON Attending Unavailable XIN PRO Attending Unavailable Allergies Allergy Classification Reported Allergen(s) Allergy Type Date of Onset Reaction(s) Facility (1 source) No Known Medication Allergies; Translations: [No Known Medication Allergies] Propensity to adverse reactions to drug (disorder) [facility] Repository Medications Current Medications Medication Drug Class(es) [...] 0.9 - 7.0 % [facility] Erythrocyte distribution width (RBC) [Ratio] 12.8 % 11.0 - 15.0 % [facility] Hematocrit (Bld) [Volume fraction] 39.3 % 36.0 - 48.0 % [facility] Hemoglobin (Bld) [Mass/Vol] 14.1 g/dL 12.0 - 16.0 g/dL [facility] IMMATURE GRANULOCYTES ABS AUTO 0.07 High [facility] Immature granulocytes/100 WBC (Bld) 0.7 % High 0.0 - 0.5 % [facility] Interpretation and review of laboratory results Abnormal [facility] LYMPHOCYTES ABSOLUTE AUTO 2.0 [facility] Lymphocytes/100 WBC (Bld) 19.1 % Low 20.5 - 60.0 % [facility] MCH (RBC) [Entitic mass] 32.0 pg 26.7 - 34.0 pg [facility] MCHC (RBC) [Mass/Vol] 35.9 g/dL High 29.9 - 35.2 g/dL [facility] MCV (RBC) [Entitic vol] 89.3 fL 81.0 - 99.0 fL [facility] MONOCYTES ABSOLUTE AUTO 0.5 [facility] Monocytes/100 WBC (Bld) 4.7 % 1.7 - 12.0 % [facility] NEUTROPHILS ABSOLUTE AUTO 7.6 High [facility] Neutrophils/100 WBC (Bld) 73.2 % 43.0 - 75.0 % [facility] Platelet mean volume (Bld) [Entitic vol] 11.4 fL 9.5 - 13.5 fL [facility] TBH EO # 0.2 [facility] TB PLT [facility] RBC 4.40 [facility] WBC 10.4 [facility] Surgical Pathologyon [address] [facility] Comment on above: Result Comment: [facility] [address] [place] [address] Surgical Pathology Consultation Patient Name:DARY ASHLEY:2000 (Age: 23)Gender:FTaken:4Reported:4Physician(s):GERSON Kelsey To: Rec. #:[id number]: #[id number] Final Pathologic Diagnosis Gallbladder, cholecystectomy: Chronic cholecystitis with organizing hemorrhage and fibroblast proliferation involving gallbladder wall, accompanied by extensive mucosal erosion with reactive changes, and focal ceroid granulomas. No evidence of malignancy or dysplasia. Cholelithiasis. Report Electronically Signed Out ao/05/12/2023olamide Moreno MD Interpretation performed at [facility], [address] [place] [address], License number: [id number]. Clinical History Cholelithiasis. Gross Description Received in [...] congested, hemorrhagic and velvety in the neck. Java Lead Architect sections are submitted in cassettes A- B, as: A- cystic duct margin and sales representative meats ragged defects,B- sales representative meats neck body and fundus. After initial microscopic evaluation, additional sections are submitted in cassettes C-E. (5,ss,[id number], m6) MARYJANE/MD chairezw/05/04/2023SSI Specimen(s) Received Gallbladder Fee Codes(s): 1; 52706 gall bladderon 03-11-2023 gall bladder [facility] [address] [place] [id number] Ultrasound Report Signed Patient: Dary Ashley MR#: [id number] : 2000 Acct:[id number] Age/Sex: 22 / F ADM Date: 03/10/23 Loc: ER Room: Type: [facility] ER Attending Dr: Ordering Provider: [...] Nataliia Scott M.D.03/11/2023 8:10 AM Dictation Location: [place] [address] Tech: Isi Federico Transcribed By: RONI 03/11/23 0810 Dictated By: Nataliia Scott MD 03/11/23 0807 Signed By: 03/11/23 0810 Normal [facility] Alanine aminotransferase [En zymatic activity/volume] in Serum or PlasmaOrdered By: Jacky Alarcon on 03-10-2023 ALT [Catalytic activity/Vol] 36 U/L 7-52 [facility] Albumin [Mass/volume] in Ser um or Plasma by Bromocresol green (BCG) dye binding methoOrdered By: Jacky Alarcon on 03-10-2023 Albumin BCG dye [Mass/Vol] 4.5 g/dL 3.5-5.7 [facility] Alkaline phosphatase [Enzyma tic activity/volume] in Serum or PlasmaOrdered By: Jacky Alarcon on 03-10-2023 ALP [Catalytic activity/Vol] 71 U/L 34-104 [facility] Aspartate aminotransferase [ Enzymatic activity/volume] in Serum or PlasmaOrdered By: Jacky Alarcon on 03-10-2023 AST [Catalytic activity/Vol] 17 U/L 13-39 [facility] Automated erythrocytes count in urine sediment (number/area)Ordered By: Jacky Alarcon on 03-10-2023 RBC Auto (Urine sed) [#/Area] 50-100 [HPF] 0-4 [facility] Automated leukocytes count i n urine sediment (number/area)Ordered By: Jacky Alarcon on 03-10-2023 WBC Auto (Urine sed) [#/Area] 5-9 [HPF] 0-4 [facility] Basic Metabolic Panelon Anion gap [Moles/Vol] 16.5 mmol/L High 6.0-15.0 [facility] Comment on above: Performed By: #### L IPASE, HCGQNT, HEPATIC, BMP, CBC #### [facility] [address] Calcium [Mass/Vol] 9.3 mg/dL Normal 8.6-10.3 [facility] Comment on above: Performed By: #### L IPASE, HCGQNT, HEPATIC, BMP, CBC #### [facility] [address] [place] [address] [place] Chloride [Moles/Vol] 101 mmol/L Normal 98-107 [facility] Comment on above: Performed By: #### L IPASE, HCGQNT, HEPATIC, BMP, CBC #### [facility] [address] [place] [address] [place] CO2 [Moles/Vol] 18.8 mmol/L Low 21.0-31.0 [facility] Comment on above: Performed By: #### L IPASE, HCGQNT, HEPATIC, BMP, CBC #### [facility] [address] [place] [address] [place] Creatinine [Mass/Vol] 0.64 mg/dL Normal 0.60-1.20 [facility] Comment on above: Performed By: #### L IPASE, HCGQNT, HEPATIC, BMP, CBC #### [facility] [address] [place] [address] [place] Creatinine Clr Calc Pharmacy 148.58 Normal [facility] Comment on above: Performed By: #### L IPASE, HCGQNT, HEPATIC, BMP, CBC #### [facility] [address] [place] [address] [place] GFR/1.73 sq M.predicted MDRD (S/P/Bld) [Vol rate/Area] mL/min/{1.73_m2} Normal [facility] Comment on above: Performed By: #### L IPASE, HCGQNT, HEPATIC, BMP, CBC #### [facility] [address] Glucose [Mass/Vol] 83 mg/dL Normal 70-100 [facility] Comment on above: Result Comment: [facility] Glucose Reference Range is dependent on time and content of last meal. Glucose of more than 200 mg/dL in a nonstressed, ambulatory subject supports the diagnosis of Diabetes Mellitus. ADA recommended reference range Performed By: #### L IPASE, HCGQNT, HEPATIC, BMP, CBC #### [facility] [address] [place] [address] Potassium [Moles/Vol] 3.3 mmol/L Low 3.5-5.1 [facility] Comment on above: Performed By: #### L IPASE, HCGQNT, HEPATIC, BMP, CBC #### [facility] [address] Sodium [Moles/Vol] 133 mmol/L Low 136-145 [facility] Comment on above: Performed By: #### L IPASE, HCGQNT, HEPATIC, BMP, CBC #### [address] Urea nitrogen [Mass/Vol] 6 mg/dL Low 7-25 [facility] Comment on above: Performed By: #### L IPASE, HCGQNT, HEPATIC, BMP, CBC #### [facility] [address] [place] [address] Basophils Auto (Bld) [#/Vol] Ordered By: Jacky Alarcon on 03-10-2023 Basophils (Bld) [#/Vol] 0.1 10*3/uL 0.0-0.2 [facility] Basophils/100 WBC Auto (Bld) Ordered By: Jacky Alarcon on 03-10-2023 Basophils/100 WBC (Bld) 0.4 % . [facility] Bilirubin Test strip Ql (U)O rdered By: Jacky Alarcon on 03-10-2023 Bilirubin Ql (U) Negative Negative [facility] Bilirubin.direct [Mass/volum e] in Serum or PlasmaOrdered By: Jacky Alarcon on 03-10-2023 Bilirubin.direct [Mass/Vol] 0.40 mg/dL 0.03-0.18 [facility] Bilirubin.total [Mass/volume ] in Serum or PlasmaOrdered By: Jacky Alarcon on 03-10-2023 Bilirubin [Mass/Vol] 1.2 mg/dL 0.3-1.0 [facility] Calcium [Mass/volume] in Ser um or PlasmaOrdered By: Jacky Alarcon on 03-10-2023 Calcium [Mass/Vol] 9.3 mg/dL 8.6-10.3 [facility] Carbon dioxide, total [Moles /volume] in Serum or PlasmaOrdered By: Jacky Alarcon on 03-10-2023 CO2 [Moles/Vol] 18.8 mmol/L 21.0-31.0 [facility] Chloride [Moles/volume] in S rahul or PlasmaOrdered By: Jacky Alarcon on 03-10-2023 Chloride [Moles/Vol] 101 mmol/L 98-107 [facility] Choriogonadotropin.beta subu nit [Units/volume] in Serum or PlasmaOrdered By: Jacky Alarcon on 03-10-2023 [place] [address].00 m[IU]/mL [facility] Comment on above: Approximate Approxim ate hCG Gestational Age Range (mIU/ml) (weeks)0.2-1 5-50 1-2 50-500 2-3 100-5,000 3-4 500-10,000 4-5 1,000-50,000 5-6 10,000-100,000 6-8 15,000-200,000 8-12 10,000-100,000 Color Auto (U)Ordered By: Corinna Alarcon on 03-10-2023 Color (U) Dark yellow Yellow [facility] Complete Blood Count Auto Di ffon 03-10-2023 Basophils (Bld) [#/Vol] 0.1 10*3/uL Normal 0.0-0.2 [facility] Comment on above: Result Comment: PERF ORMED BY: [facility] [address] [place] [address] PATHOLOGIST ELIGIBILITY AND OCCUPANCY INTERVIEWER ANDRÉS MACEDO M.D. Performed By: #### L IPASE, HCGQNT, HEPATIC, BMP, CBC #### [address] Basophils/100 WBC (Bld) 0.4 % Normal . [facility] Comment on above: Performed By: #### L IPASE, HCGQNT, HEPATIC, BMP, CBC #### [address] Eosinophils (Bld) [#/Vol] 0.1 10*3/uL Normal 0.0-0.45 [facility] Comment on above: Performed By: #### L IPASE, HCGQNT, HEPATIC, BMP, CBC #### [address] Eosinophils/100 WBC (Bld) 0.5 % Normal . [facility] Comment on above: Performed By: #### L IPASE, HCGQNT, HEPATIC, BMP, CBC #### [address] Erythrocyte distribution width (RBC) [Ratio] 13.3 % Normal 11.9-15.3 [facility] Comment on above: Performed By: #### L IPASE, HCGQNT, HEPATIC, BMP, CBC #### [address] Hematocrit (Bld) [Volume fraction] 47.2 % High 34.0-46.4 [facility] Comment on above: Performed By: #### L IPASE, HCGQNT, HEPATIC, BMP, CBC #### [address] Hemoglobin (Bld) [Mass/Vol] 16.5 g/dL High 11.8-15.4 [facility] Comment on above: Performed By: #### L IPASE, HCGQNT, HEPATIC, BMP, CBC #### [address] Lymphocytes (Bld) [#/Vol] 1.9 10*3/uL Normal 1.00-4.8 [facility] Comment on above: Performed By: #### L IPASE, HCGQNT, HEPATIC, BMP, CBC #### [address] Lymphocytes/100 WBC (Bld) 11.6 % Normal . [facility] Comment on above: Performed By: #### L IPASE, HCGQNT, HEPATIC, BMP, CBC #### [address] MCH (RBC) [Entitic mass] 30.8 pg Normal 24.7-34.3 [facility] Comment on above: Performed By: #### L IPASE, HCGQNT, HEPATIC, BMP, CBC #### [address] MCV (RBC) [Entitic vol] 87.8 fL Normal 80-100 [facility] Comment on above: Performed By: #### L IPASE, HCGQNT, HEPATIC, BMP, CBC #### [address] Mean Corpuscular HGB Conc 35.0 g/dL Normal 32.0-35.0 [facility] Comment on above: Performed By: #### L IPASE, HCGQNT, HEPATIC, BMP, CBC #### [address] Monocytes (Bld) [#/Vol] 1.4 10*3/uL High 0.0-0.8 [facility] Comment on above: Performed By: #### L IPASE, HCGQNT, HEPATIC, BMP, CBC #### [address] Monocytes/100 WBC (Bld) 16.05 % Normal 0.00-20.00 [facility] Comment on above: Performed By: #### L IPASE, HCGQNT, HEPATIC, BMP, CBC #### [address] Monocytes/100 WBC (Bld) 8.8 % Normal . [facility] Comment on above: Performed By: #### L IPASE, HCGQNT, HEPATIC, BMP, CBC #### [address] Neutrophils (Bld) [#/Vol] 12.6 10*3/uL High 1.8-7.7 [facility] Comment on above: Performed By: #### L IPASE, HCGQNT, HEPATIC, BMP, CBC #### [address] Neutrophils/100 WBC (Bld) 78.7 % Normal . [facility] Comment on above: Performed By: #### L IPASE, HCGQNT, HEPATIC, BMP, CBC #### [address] NRBC% 0.1 /100{WBC} Normal 0-0.5 [facility] Comment on above: Performed By: #### L IPASE, HCGQNT, HEPATIC, BMP, CBC #### [address] Platelet mean volume (Bld) [Entitic vol] 9.7 fL Normal 6.3-10.7 [facility] Comment on above: Performed By: #### L IPASE, HCGQNT, HEPATIC, BMP, CBC #### [place] [address] [place] Platelets (Bld) [#/Vol] 263 10*3/uL Normal 150-450 [facility] Comment on above: Performed By: #### L IPASE, HCGQNT, HEPATIC, BMP, CBC #### [place] [address] [place] RBC (Bld) [#/Vol] 5.37 10*6/uL High 3.60-5.00 [facility] Comment on above: Performed By: #### L IPASE, HCGQNT, HEPATIC, BMP, CBC #### [address] WBC (Bld) [#/Vol] 16.0 10*3/uL High 3.8-11.6 [facility] Comment on above: Performed By: #### L IPASE, HCGQNT, HEPATIC, BMP, CBC #### [facility] [address] [place] [address] [place] Creatinine [Mass/volume] in Serum or PlasmaOrdered By: Jacky Alarcon on 03-10-2023 Creatinine [Mass/Vol] 0.64 mg/dL 0.60-1.20 [facility] Dipstick and Microscopicon 1 05-11-2022 Appearance (U) Turbid Critically abnormal Clear [facility] Comment on above: Order Comment: Name Collection Type:: Clean-Voided Midstream Performed By: #### A DDONUAPLUS, CUU #### [place] [address] [place] Bacteria,Urine Rare High None Seen [facility] Comment on above: Order Comment: Name Collection Type:: Clean-Voided Midstream Performed By: #### A DDONUAPLUS, CUU #### [place] [address] [place] Bilirubin,Urine Negative Normal Negative [facility] Comment on above: Order Comment: Name Collection Type:: Clean-Voided Midstream Performed By: #### A DDONUAPLUS, CUU #### [place] [address] [place] Color (U) Dark Yellow Critically abnormal Yellow [facility] Comment on above: Order Comment: Name Collection Type:: Clean-Voided Midstream Performed By: #### A DDONUAPLUS, CUU #### [facility] [address] [place] [address] [place] Glucose Ql (U) Normal Normal Normal [facility] Comment on above: Order Comment: Name Collection Type:: Clean-Voided Midstream Performed By: #### A DDONUAPLUS, CUU #### [place] [address] [place] Hyaline Casts,Urine 9-19 High 0-8 [facility] Comment on above: Order Comment: Name Collection Type:: Clean-Voided Midstream Result Comment: PERF ORMED BY: [place] [phone] PATHOLOGIST ELIGIBILITY AND OCCUPANCY INTERVIEWER ANDRÉS MACEDO M.D. Performed By: #### A DDONUAPLUS, CUU #### [address] Ketones Ql (U) 4+ High Negative [facility] Comment on above: Order Comment: Name Collection Type:: Clean-Voided Midstream Performed By: #### A DDONUAPLUS, CUU #### [address] Leukocyte esterase Test strip Ql (U) 1+ High Negative [facility] Comment on above: Order Comment: Name Collection Type:: Clean-Voided Midstream Performed By: #### A DDONUAPLUS, CUU #### [address] Nitrite,Urine Negative Normal Negative [facility] Comment on above: Order Comment: Name Collection Type:: Clean-Voided Midstream Performed By: #### A DDONUAPLUS, CUU #### [address] Occult Blood,Urine 3+ High Negative [facility] Comment on above: Order Comment: Name Collection Type:: Clean-Voided Midstream Result Comment: PERF ORMED BY: [place] [address] PATHOLOGIST ELIGIBILITY AND OCCUPANCY INTERVIEWER ANDRÉS MACEDO M.D. Performed By: #### A DDONUAPLUS, CUU #### [address] Othe Crystals,Urine Normal [facility] Comment on above: Order Comment: Name Collection Type:: Clean-Voided Midstream Result Comment: sulf a crystals Performed By: #### A DDONUAPLUS, CUU #### [address] pH (U) 6.5 [pH] Normal 5.0-9.0 [facility] Comment on above: Order Comment: Name Collection Type:: Clean-Voided Midstream Performed By: #### A DDONUAPLUS, CUU #### [address] Protein (U) [Mass/Vol] 100 mg/dL High Negative [facility] Comment on above: Order Comment: Name Collection Type:: Clean-Voided Midstream Performed By: #### A DDONUAPLUS, CUU #### [address] RBC,Urine 50-100 High 0-4 [facility] Comment on above: Order Comment: Name Collection Type:: Clean-Voided Midstream Performed By: #### A DDONUAPLUS, CUU #### [address] Specificy [place],Urine 1.029 Normal 1.001-1.03 0 [facility] Comment on above: Order Comment: Name Collection Type:: Clean-Voided Midstream Performed By: #### A DDONUAPLUS, CUU #### [address] Squamous Epithelial Cell,Urine 1-2 Normal 0-2 [facility] Comment on above: Order Comment: Name Collection Type:: Clean-Voided Midstream Performed By: #### A DDONUAPLUS, CUU #### [address] Urobilinogen,Urine Normal Normal Normal [facility] Comment on above: Order Comment: Name Collection Type:: Clean-Voided Midstream Performed By: #### A DDONUAPLUS, CUU #### [address] WBC,Urine 5-9 High 0-4 [facility] Comment on above: Order Comment: Name Collection Type:: Clean-Voided Midstream Performed By: #### A DDONUAPLUS, CUU #### [address] Eosinophils Auto (Bld) [#/Vo l]Ordered By: Jacky Alarcon on 03-10-2023 Eosinophils (Bld) [#/Vol] 0.1 10*3/uL 0.0-0.45 [facility] Eosinophils/100 WBC Auto (Bl d)Ordered By: Jacky Alarcon on 03-10-2023 Eosinophils/100 WBC (Bld) 0.5 % . [facility] Erythrocyte distribution wid th Auto (RBC) [Ratio]Ordered By: Jacky Alarcon on 03-10-2023 Erythrocyte distribution width (RBC) [Ratio] 13.3 % 11.9-15.3 [facility] Globulin Calc (S) [Mass/Vol] Ordered By: Jacky Alarcon on 03-10-2023 Globulin (S) [Mass/Vol] 3.5 g/dL [facility] Glucose [Mass/volume] in Ser um or PlasmaOrdered By: Jacky Alarcon on 03-10-2023 Glucose [Mass/Vol] 83 mg/dL 70-100 [facility] Comment on above: ADA recommended refe rence rangeRandom Glucose Reference Range is dependent on time and content of last meal. Glucose of more than 200 mg/dL in a nonstressed, ambulatory subject supports the diagnosis of Diabetes Mellitus. HCG ( test) IA.rapi d Ql (U)Ordered By: Jacky Alarcon on 03-10-2023 HCG ( test) Ql (U) Positive [facility] HCG,Quantitativeon HCG,Quantitative 44790.00 m[iU]/mL Normal F [facility] Comment on above: Result Comment: Appr oximate Approximate hCG Gestational Age Range (mIU/ml) (weeks) 0.2-1 5-50 1-2 50-500 2-3 100-5,000 3-4 500-10,000 4-5 1,000-50,000 5-6 10,000-100,000 6-8 15,000-200,000 8-12 10,000-100,000 PERFORMED BY: [place] [address] PATHOLOGIST ELIGIBILITY AND OCCUPANCY INTERVIEWER ANDRÉS MACEDO M.D. Performed By: #### L IPASE, HCGQNT, HEPATIC, BMP, CBC #### [address] HCG,Urineon 03-10-2023 Beta HCG ( test) Ql (U) Positive High [facility] Comment on above: Result Comment: PERF ORMED BY: [place] [address] PATHOLOGIST ELIGIBILITY AND OCCUPANCY INTERVIEWER ANDRÉS MACEDO M.D. Performed By: #### U HCG #### [facility] [address] [place] [address] Hematocrit Auto (Bld) [Volum e fraction]Ordered By: Jacky Alarcon on 03-10-2023 Hematocrit (Bld) [Volume fraction] 47.2 % 34.0-46.4 [facility] Hemoglobin [Mass/volume] in BloodOrdered By: Jacky Alarcon on 03-10-2023 Hemoglobin (Bld) [Mass/Vol] 16.5 g/dL 11.8-15.4 [facility] Hepatic Panelon 03-10-2023 Albumin [Mass/Vol] 4.5 g/dL Normal 3.5-5.7 [facility] Comment on above: Performed By: #### L IPASE, HCGQNT, HEPATIC, BMP, CBC #### [facility] [address] [place] [address] Albumin/Globulin [Mass ratio] 1.3 {ratio} Normal [facility] Comment on above: Performed By: #### L IPASE, HCGQNT, HEPATIC, BMP, CBC #### [facility] [address] [place] [address] [place] ALP [Catalytic activity/Vol] 71 U/L Normal 34-104 [facility] Comment on above: Performed By: #### L IPASE, HCGQNT, HEPATIC, BMP, CBC #### [facility] [address] [place] [address] [place] ALT [Catalytic activity/Vol] 36 U/L Normal 7-52 [facility] Comment on above: Performed By: #### L IPASE, HCGQNT, HEPATIC, BMP, CBC #### [facility] [address] [place] [address] [place] AST [Catalytic activity/Vol] 17 U/L Normal 13-39 [facility] Comment on above: Performed By: #### L IPASE, HCGQNT, HEPATIC, BMP, CBC #### [facility] [address] Bilirubin [Mass/Vol] 1.2 mg/dL High 0.3-1.0 [facility] Comment on above: Performed By: #### L IPASE, HCGQNT, HEPATIC, BMP, CBC #### [facility] [address] Bilirubin,Indirect 0.8 mg/dL Normal [facility] Comment on above: Performed By: #### L IPASE, HCGQNT, HEPATIC, BMP, CBC #### [facility] [address] Bilirubin.indirect [Mass/Vol] 0.40 mg/dL High 0.03-0.18 [facility] Comment on above: Performed By: #### L IPASE, HCGQNT, HEPATIC, BMP, CBC #### [facility] [address] Globulin (S) [Mass/Vol] 3.5 g/dL Normal [facility] Comment on above: Performed By: #### L IPASE, HCGQNT, HEPATIC, BMP, CBC #### [facility] [address] Protein [Mass/Vol] 8.0 g/dL Normal 6.4-8.9 [facility] Comment on above: Performed By: #### L IPASE, HCGQNT, HEPATIC, BMP, CBC #### [facility] [address] Ketones Auto test strip (U) [Mass/Vol]Ordered By: Jacky Alarcon on 03-10-2023 Ketones (U) [Mass/Vol] 4+ Negative [facility] - UrinalysisOrder ed By: Jacky Alarcon on 03-10-2023 Hyaline casts LM Ql (Urine sed) 9-19 [LPF] 0-8 [facility] Leukocytes [#/volume] correc anabell for nucleated erythrocytes in Blood by Automated counOrdered By: Jacky Alarcon on 03-10-2023 WBC corrected for nucl RBC Auto (Bld) [#/Vol] 16.0 10*3/uL 3.8-11.6 [facility] Lipaseon 03-10-2023 Lipase [Catalytic activity/Vol] 35.0 U/L Normal 11.0-82.0 [facility] Comment on above: Result Comment: PERF ORMED BY: [facility] [address] [place] [address] PATHOLOGIST ELIGIBILITY AND OCCUPANCY INTERVIEWER ANDRÉS MACEDO M.D. Performed By: #### L IPASE, HCGQNT, HEPATIC, BMP, CBC #### [facility] [address] Lipase [Enzymatic activity/v olume] in Serum or PlasmaOrdered By: Jacky Alarcon on 03-10-2023 Lipase [Catalytic activity/Vol] 35.0 U/L 11.0-82.0 [facility] Lymphocytes Auto (Bld) [#/Vo l]Ordered By: Jacky Alarcon on 03-10-2023 Lymphocytes (Bld) [#/Vol] 1.9 10*3/uL 1.00-4.8 [facility] Lymphocytes/100 WBC Auto (Bl d)Ordered By: Jacky Alarcon on 03-10-2023 Lymphocytes/100 WBC (Bld) 11.6 % . [facility] MCH Auto (RBC) [Entitic mass ]Ordered By: Jacky Alarcon on 03-10-2023 MCH (RBC) [Entitic mass] 30.8 pg 24.7-34.3 [facility] MCHC Auto (RBC) [Mass/Vol]Or dered By: Jacky Alarcon on 03-10-2023 MCHC (RBC) [Mass/Vol] 35.0 g/dL 32.0-35.0 [facility] MCV Auto (RBC) [Entitic vol] Ordered By: Jacky Alarcon on 03-10-2023 MCV (RBC) [Entitic vol] 87.8 fL 80-100 [facility] Monocyte distribution width [Entitic volume] in Blood by AutomatedOrdered By: Jacky Alarcon on 03-10-2023 Monocyte distribution width Auto (Bld) [Entitic vol] 16.05 % 0.00-20.00 [facility] Monocytes Auto (Bld) [#/Vol] Ordered By: Jacky Alarcon on 03-10-2023 Monocytes (Bld) [#/Vol] 1.4 10*3/uL 0.0-0.8 [facility] Monocytes/100 WBC Auto (Bld) Ordered By: Jacky Alarcon on 03-10-2023 Monocytes/100 WBC (Bld) 8.8 % . [facility] Neutrophils Auto (Bld) [#/Vo l]Ordered By: Jacky Alarcon on 03-10-2023 Neutrophils (Bld) [#/Vol] 12.6 10*3/uL 1.8-7.7 [facility] Neutrophils/100 WBC Auto (Bl d)Ordered By: Jacky Alarcon on 03-10-2023 Neutrophils/100 WBC (Bld) 78.7 % . [facility] Nitrite Test strip Ql (U)Ord ered By: Jacky Alarcon on 03-10-2023 Nitrite Ql (U) Negative Negative [facility] No Panel InformationOrdered By: Jacky Alarcon on 03-10-2023 Estimated GFR (CKD-EPI) > 60.0 mL/Min [facility] Creatinine Clearance (Chem 148.58 [facility] Nucleated erythrocytes [Pres ence] in Blood by Automated countOrdered By: Jacky Alarcon on 03-10-2023 Nucleated RBC Auto Ql (Bld) 0.1 /100{WBC} 0-0.5 [facility] Platelet mean volume Auto (B ld) [Entitic vol]Ordered By: Jacky Alarcon on 03-10-2023 Platelet mean volume (Bld) [Entitic vol] 9.7 fL 6.3-10.7 [facility] Platelets Auto (Bld) [#/Vol] Ordered By: Jacky Alarcon on 03-10-2023 Platelets (Bld) [#/Vol] 263 10*3/uL 150-450 [facility] Potassium [Moles/volume] in Serum or PlasmaOrdered By: Jacky Alarcon on 03-10-2023 Potassium [Moles/Vol] 3.3 mmol/L 3.5-5.1 [facility] Protein Auto test strip (U) [Mass/Vol]Ordered By: Jacky Alarcon on 03-10-2023 Protein (U) [Mass/Vol] 100 mg/dL Negative [facility] Protein [Mass/volume] in Ser um or PlasmaOrdered By: Jacky Alarcon on 03-10-2023 Protein [Mass/Vol] 8.0 g/dL 6.4-8.9 [facility] RBC Auto (Bld) [#/Vol]Ordere d By: Jacky Alarcon on 03-10-2023 RBC (Bld) [#/Vol] 5.37 10*6/uL 3.60-5.00 [facility] Serum or plasma albumin/glob ulin mass ratioOrdered By: Jacky Alarcon on 03-10-2023 Albumin/Globulin [Mass ratio] 1.3 {ratio} [facility] Serum or plasma anion gap de terminationOrdered By: Jacky Alarcon on 03-10-2023 Anion gap [Moles/Vol] 16.5 mmol/L 6.0-15.0 [facility] Serum or plasma non-glucuron idated bilirubin measurement (mass/volume)Ordered By: Jacky Alarcon on 03-10-2023 Bilirubin.indirect [Mass/Vol] 0.8 mg/dL [facility] Sodium [Moles/volume] in Ser um or PlasmaOrdered By: Jacky Alarcon on 03-10-2023 Sodium [Moles/Vol] 133 mmol/L 136-145 [facility] Specific gravity Auto test s trip (U) [Rel density]Ordered By: Jacky Alarcon on 03-10-2023 Specific gravity (U) [Rel density] 1.029 1.001-1.03 0 [facility] Squamous epithelial cells de tection in urine sediment by light microscopyOrdered By: Jacky Alarcon on 03-10-2023 Epithelial cells.squamous LM Ql (Urine sed) 1-2 [HPF] 0-2 [facility] Urea nitrogen [Mass/volume] in Serum or PlasmaOrdered By: Jacky Alarcon on 03-10-2023 Urea nitrogen [Mass/Vol] 6 mg/dL 7-25 [facility] Urine Cultureon 03-10-2023 Bacteria identified Cx Nom (U) >100,000 colonies/ml mixed bacterial skin contaminants 2 Days PERFORMED BY: [place] [address] [place] [address] PATHOLOGIST ELIGIBILITY AND OCCUPANCY INTERVIEWER ANDRÉS MACEDO M.D. Normal [facility] Comment on above: Performed By: #### A DDONUAPLUS, CUU #### [facility] [address] Urine bacteria detection by automated methodOrdered By: Jacky Alarcon on 03-10-2023 Bacteria Auto Ql (U) Rare None Seen [facility] Urine clarity by refractomet ry automatedOrdered By: Jacky Alarcon on 03-10-2023 Clarity Refractometry automated (U) Turbid Clear [facility] Urine glucose measurement by automated test strip (mass/volume)Ordered By: Jacky Alarcon on 03-10-2023 Glucose Auto test strip (U) [Mass/Vol] Normal mg/dL Normal [facility] Urine hemoglobin detection b y automated test stripOrdered By: Jacky Alarcon on 03-10-2023 Hemoglobin Auto test strip Ql (U) 3+ Negative [facility] Urine leukocyte esterase det ection by automated test stripOrdered By: Jacky Alarcon on 03-10-2023 Leukocyte esterase Auto test strip Ql (U) 1+ Negative [facility] Urine sediment crystal ident ification by light microscopyOrdered By: Jacky Alarcon on 03-10-2023 Crystals LM Nom (Urine sed) See comment [facility] Comment on above: sulfa crystals Urobilinogen Auto test strip (U) [Mass/Vol]Ordered By: Jacky Alarcon on 03-10-2023 Urobilinogen (U) [Mass/Vol] Normal mg/dL Normal [facility] WBC Auto (Bld) [#/Vol]Ordere d By: Jacky Alarcon on 03-10-2023 WBC (Bld) [#/Vol] 16.0 10*3/uL 3.8-11.6 [facility] pH Auto test strip (U)Ordere d By: Jacky Alarcon on 03-10-2023 pH (U) 6.5 [pH] 5.0-9.0 [facility] CBC AUTO DIFFon 07-30-2022 BASO # 0.1 103/ul Normal 0.0-0.1 [facility] Comment on above: Performed By: #### G TT3P #### [facility] [address] [address] [address] Jackelyn Celestin Basophils/100 WBC (Bld) 0.6 % Normal 0.2-2.0 [facility] Comment on above: Performed By: #### G TT3P #### [facility] [address] [place] [address] Dr. Jackelyn Celestin EO # 0.2 103/ul Normal 0.0-0.7 [facility] Comment on above: Performed By: #### G TT3P #### [facility] [address] [place] [address] Dr. Jackelyn Celestin Eosinophils/100 WBC (Bld) 1.5 % Normal 0.9-7.0 [facility] Comment on above: Performed By: #### G TT3P #### [facility] [address] [place] [address] Dr. Jackelyn Celestin Erythrocyte distribution width (RBC) [Ratio] 14.5 % Normal 11.0-15.0 [facility] Comment on above: Performed By: #### G TT3P #### [facility] [address] [place] [address] Dr. Jackelyn Celestin Hematocrit (Bld) [Volume fraction] 33.9 % Critically low 36.0-48.0 [facility] Comment on above: Performed By: #### G TT3P #### [facility] [address] [place] [address] Dr. aJckelyn Celestin Hemoglobin (Bld) [Mass/Vol] 11.0 g/dL Critically low 12.0-16.0 [facility] Comment on above: Performed By: #### G TT3P #### [facility] [address] [place] [address] Dr. Jackelyn Celestin IG # 0.13 10e3/ul Critically high 0.00-0.03 [facility] Comment on above: Performed By: #### G TT3P #### [facility] [address] [place] [address] Dr. Jackelyn Celestin IG % 1.1 % Critically high 0.0-0.5 [facility] Comment on above: Performed By: #### G TT3P #### [facility] [address] [place] [address] Dr. Jackelyn Celestin LYMPH # 2.2 103/ul Normal 1.2-3.8 [facility] Comment on above: Performed By: #### G TT3P #### [facility] [address] [place] [address] Dr. Jackelyn Celestin Lymphocytes/100 WBC (Bld) 17.9 % Critically low 20.5-60.0 [facility] Comment on above: Performed By: #### G TT3P #### [facility] [address] [place] [address] Dr. Jackelyn Celestin MANUAL DIFF REQ NO Normal [facility] Comment on above: Performed By: #### G TT3P #### [facility] [address] [place] [address] Dr. Jackelyn Celestin MCH (RBC) [Entitic mass] 28.6 pg Normal 26.7-34.0 [facility] Comment on above: Performed By: #### G TT3P #### [facility] [address] [place] [address] Dr. Jackelyn Celestin MCHC (RBC) [Mass/Vol] 32.4 g/dL Normal 29.9-35.2 [facility] Comment on above: Performed By: #### G TT3P #### [facility] [address] [place] [address] Dr. Jackelyn Celestin MCV (RBC) [Entitic vol] 88.1 fL Normal 81.0-99.0 [facility] Comment on above: Performed By: #### G TT3P #### [facility] [address] [place] [address] Dr. Jackelyn Celestin MONO # 0.8 103/ul Normal 0.3-0.8 [facility] Comment on above: Performed By: #### G TT3P #### [facility] [address] [place] [address] Dr. Jackelyn Celestin Monocytes/100 WBC (Bld) 6.9 % Normal 1.7-12.0 [facility] Comment on above: Performed By: #### G TT3P #### [facility] [address] [place] [address] Dr. Jackelyn Celestin NEUT # 8.7 103/ul Critically high 1.4-6.5 [facility] Comment on above: Performed By: #### G TT3P #### [facility] [address] [place] [address] Dr. Jackelyn Celestin Neutrophils/100 WBC (Bld) 72.0 % Normal 43.0-75.0 [facility] Comment on above: Performed By: #### G TT3P #### [facility] [address] [place] [address] Dr. Jackelyn Celestin Platelet mean volume (Bld) [Entitic vol] 11.5 fL Normal 9.5-13.5 [facility] Comment on above: Performed By: #### G TT3P #### [facility] [address] [place] [address] Dr. Jackelyn Celestin PLT 146 103/ul Critically low 150-450 [facility] Comment on above: Performed By: #### G TT3P #### [facility] [address] [place] [address] Dr. Jackelyn Celestin RBC 3.85 106/ul Critically low 4.20-5.40 [facility] Comment on above: Performed By: #### G TT3P #### [facility] [address] [place] [address] Dr. Jackelyn Celestin WBC 12.1 103/ul Critically high 4.0-11.0 [facility] Comment on above: Performed By: #### G TT3P #### [facility] [address] [place] [address] Dr. Jackelyn Celestin CBC AUTO DIFFon 07-29-2022 BASO # 0.0 103/ul Normal 0.0-0.1 [facility] Comment on above: Performed By: #### [id number] #### [facility] [address] [place] [address] Dr. Jackelyn Celestin Basophils/100 WBC (Bld) 0.4 % Normal 0.2-2.0 [facility] Comment on above: Performed By: #### 4 [id number] #### [facility] [address] [place] [address] Dr. Jackelyn Celestin EO # 0.2 103/ul Normal 0.0-0.7 [facility] Comment on above: Performed By: #### 4 [id number] #### [facility] [address] [place] [address] Dr. Jackelyn Celestin Eosinophils/100 WBC (Bld) 1.4 % Normal 0.9-7.0 [facility] Comment on above: Performed By: #### 4 [id number] #### [facility] [address] [place] [address] Dr. Jackelyn Celestin Erythrocyte distribution width (RBC) [Ratio] 14.1 % Normal 11.0-15.0 [facility] Comment on above: Performed By: #### 4 [id number] #### [facility] [address] [place] [address] Dr. Jackelyn Celestin Hematocrit (Bld) [Volume fraction] 36.0 % Normal 36.0-48.0 [facility] Comment on above: Performed By: #### 4 [id number] #### [facility] [address] [place] [address] Dr. Jackelyn Celestin Hemoglobin (Bld) [Mass/Vol] 12.2 g/dL Normal 12.0-16.0 [facility] Comment on above: Performed By: #### 4 [id number] #### [facility] [address] [place] [address] Dr. Jackelyn Celestin IG # 0.10 10e3/ul Critically high 0.00-0.03 [facility] Comment on above: Performed By: #### 4 [id number] #### [facility] [address] [place] [address] Dr. Jackelyn Celestin IG % 0.9 % Critically high 0.0-0.5 [facility] Comment on above: Performed By: #### 4 [id number] #### [facility] [address] [place] [address] Dr. Jackelyn Celestin LYMPH # 1.9 103/ul Normal 1.2-3.8 [facility] Comment on above: Performed By: #### 4 [id number] #### [facility] [address] [place] [address] Dr. Jackelyn Celestin Lymphocytes/100 WBC (Bld) 17.7 % Critically low 20.5-60.0 [facility] Comment on above: Performed By: #### 4 [id number] #### [facility] [address] [place] [address] Dr. Jackelyn Celestin MANUAL DIFF REQ NO Normal [facility] Comment on above: Performed By: #### 4 [id number] #### [facility] [address] [place] [address] Dr. Jackelyn Celestin MCH (RBC) [Entitic mass] 28.8 pg Normal 26.7-34.0 [facility] Comment on above: Performed By: #### 4 [id number] #### [facility] [address] [place] [address] Dr. Jackelyn Celestin MCHC (RBC) [Mass/Vol] 33.9 g/dL Normal 29.9-35.2 [facility] Comment on above: Performed By: #### 4 [id number] #### [facility] [address] [place] [address] Dr. Jackelyn Celestin MCV (RBC) [Entitic vol] 84.9 fL Normal 81.0-99.0 [facility] Comment on above: Performed By: #### 4 [id number] #### [facility] [address] [place] [address] Dr. Jackelyn Celestin MONO # 0.9 103/ul Critically high 0.3-0.8 [facility] Comment on above: Performed By: #### 4 [id number] #### [facility] [address] [place] [address] Dr. Jackelyn Celestin Monocytes/100 WBC (Bld) 8.4 % Normal 1.7-12.0 [facility] Comment on above: Performed By: #### 4 [id number] #### [facility] [address] [place] [address] Dr. Jackelyn Celestin NEUT # 7.7 103/ul Critically high 1.4-6.5 [facility] Comment on above: Performed By: #### 4 [id number] #### [facility] [address] [place] [address] Dr. Jackelyn Celestin Neutrophils/100 WBC (Bld) 71.2 % Normal 43.0-75.0 [facility] Comment on above: Performed By: #### 4 [id number] #### [facility] [address] [place] [address] Dr. Jackelyn Celestin Platelet mean volume (Bld) [Entitic vol] 10.9 fL Normal 9.5-13.5 [facility] Comment on above: Performed By: #### 4 [id number] #### [facility] [address] [place] [address] Dr. Jackelyn Celestin PLT 170 103/ul Normal 150-450 [facility] Comment on above: Performed By: #### 4 [id number] #### [facility] [address] [place] [address] Dr. Jackelyn Celestin RBC 4.24 106/ul Normal 4.20-5.40 [facility] Comment on above: Performed By: #### 4 [id number] #### [facility] [address] [place] [address] Dr. Jackelyn Celestin WBC 10.8 103/ul Normal 4.0-11.0 [facility] Comment on above: Performed By: #### 4 [id number] #### [facility] [address] [place] [address] Dr. Jackelyn Celestin DRUG SCREEN RAPID (URINE)on 07-29-2022 AMP Negative Normal NEGATIVE [facility] Comment on above: Performed By: #### 4 [id number] #### [facility] [address] [place] [address] Dr. Jackelyn Celestin BAR Negative Normal NEGATIVE [facility] Comment on above: Performed By: #### 4 [id number] #### [facility] [address] [place] [address] Dr. Jackelyn Celestin BUP Negative Normal NEGATIVE [facility] Comment on above: Performed By: #### 4 [id number] #### [facility] [address] [place] [address] Dr. Jackelyn Celestin BZO Negative Normal NEGATIVE [facility] Comment on above: Performed By: #### 4 [id number] #### [facility] [address] [place] [address] Dr. Jackelyn Celestin HOMERO Negative Normal NEGATIVE [facility] Comment on above: Performed By: #### 4 [id number] #### [facility] [address] [place] [address] Dr. Jackelyn Celestin CUT-OFFS SEE BELOW Normal [facility] Comment on above: Result Comment: AMP (Amphetamine): 500ng/mL, BAR (Barbituates): 200 ng/mL, BZO (Benzodiazepines): 150 ng/mL, BUP (Buprenorphine): 10 ng/mL, HOMERO (Cocaine): 150 ng/mL, mAMP (Methamphetamine): 500 ng/mL, MTD (Methadone): 200 ng/mL, OPI (Opiates): 100 ng/mL, OXY (Oxycodone): 100 ng/mL, PCP (Phencyclidine): 25 ng/mL, PPX (Propoxyphene): 300 ng/mL, THC (Cannabinoids): 50 ng/mL, TCA (Trycyclic Antidepressants): 300 ng/mL Performed By: #### 4 [id number] #### [facility] [address] [place] [address] Dr. Jackelyn Celestin DRUG CUT HEADER DRUG CLASS TEST SYST EM CUT-OFF CONCENTRATIONS ARE FOLLOWS: Normal [facility] Comment on above: Performed By: #### 4 [id number] #### [facility] [address] [place] [address] Dr. Jackelyn Celestin mAMP Negative Normal NEGATIVE [facility] Comment on above: Performed By: #### 4 [id number] #### [facility] [address] [place] [address] Dr. Jackelyn Celestin MTD Negative Normal NEGATIVE [facility] Comment on above: Performed By: #### 4 [id number] #### [facility] [address] [place] [address] Dr. Jackelyn Celestin OPI Negative Normal NEGATIVE [facility] Comment on above: Performed By: #### 4 [id number] #### [facility] [address] [place] [address] Dr. Jackelyn Celestin OXY Negative Normal NEGATIVE [facility] Comment on above: Performed By: #### 4 [id number] #### [facility] [address] [place] [address] Dr. Jackelyn Celestin PCP Negative Normal NEGATIVE [facility] Comment on above: Performed By: #### 4 [id number] #### [facility] [address] [place] [address] Dr. Jackelyn Celestin PPX Negative Normal NEGATIVE [facility] Comment on above: Performed By: #### 4 [id number] #### [facility] [address] [place] [address] Dr. Jackelyn Celestin TCA Negative Normal NEGATIVE [facility] Comment on above: Performed By: #### 4 [id number] #### [facility] [address] [place] [address] Dr. Jackelyn Celestin THC Negative Normal NEGATIVE [facility] Comment on above: Performed By: #### 4 [id number] #### [facility] [address] [place] [address] Dr. Jackelyn Celestin TYPE AND SCREENon 07-29-2022 TYPE AND SCREEN Negative Normal [facility] Comment on above: Performed By: #### G TT3P #### [facility] [address] [place] [address] Dr. Jackelyn Celestin US PREG GROWTHon 07-25-2022 [...] TRISTAN HART Date: 2022-07-24 22:37 Normal [facility] GROUP B STREP CULTUREon 06-09 S. agalactiae Ag Ql (Unsp spec) Culture Observations: NEGATIVE FOR GROUP B STREPTOCOCCUS. Normal [facility] Comment on above: Performed By: #### G TT3P #### [facility] [address] [place] [address] Dr. Jackelyn Celestin US PREG GROWTHon 06-06-2022 [...] TRISTAN HART Date: 2022-06-06 15:39 Normal [facility] GTT 3 HR PREGon 05-21-2022 Glucose [Mass/Vol] 91 mg/dL Normal 74-106 [facility] Comment on above: Performed By: #### G TT3P #### [facility] [address] [place] [address] Dr. Jackelyn Celestin Glucose [Mass/Vol] 168 mg/dL Normal [facility] Comment on above: Performed By: #### G TT3P #### [facility] [address] [place] [address] Dr. Jackelyn Celestin Glucose [Mass/Vol] 121 mg/dL [facility] Comment on above: Performed By: #### G TT3P #### [facility] [address] [place] [address] Dr. Jackelyn Celestin Glucose [Mass/Vol] 86 mg/dL [facility] Comment on above: Performed By: #### G TT3P #### [facility] [address] [place] [address] Dr. Jackelyn Celestin PAP ACOG PANEL 2: 21 to 29on 05-17-2022 . . Normal [facility] Comment on above: Performed By: #### [id number] #### [facility] [address] [place] [address] Dr. Jackelyn Celestin DIAGNOSIS: Comment [facility] Comment on above: Result Comment: NEGA TIVE FOR INTRAEPITHELIAL LESION OR MALIGNANCY. Performed By: #### [id number] #### [facility] [address] [place] [address] Dr. Jackelyn Celestin Methodology: Comment [facility] Comment on above: Result Comment: This liquid based ThinPrep(R) pap test was screened with the use of an image guided system. Performed By: #### 4 [id number] #### [facility] [address] [place] [address] Dr. Jackelyn Celestin Note: Comment [facility] Comment on above: Result Comment: The Pap smear is a screening test designed to aid in the detection of premalignant and malignant conditions of the uterine cervix. It is not a diagnostic procedure and should not be used as the sole means of detecting cervical cancer. Both false-positive and false-negative reports do occur. . Performed By: #### 4 [id number] #### [facility] [address] [place] [address] Dr. Jackelyn Celestin Performed by: Comment [facility] Comment on above: Result Comment: Alphonso Walker, Turf Keeper (ASCP) Performed By: #### 4 [id number] #### [facility] [address] [place] [address] Dr. Jackelyn Celestin Reflex Criteria: Comment Normal [facility] Comment on above: Result Comment: The HPV DNA reflex criteria were not met with this specimen result therefore, no HPV testing was performed. . Performed By: #### 4 [id number] #### [facility] [address] [place] [address] Dr. Jackelyn Celestin Specimen adequacy: Comment Normal [facility] Comment on above: Result Comment: Sati sfactory for evaluation. No endocervical component is identified. Performed By: #### 4 [id number] #### [facility] [address] [place] [address] Dr. Jackelyn Celestin Age Gdln ACOG Testing 21-29 Normal [facility] Comment on above: Performed By: #### 4 [id number] #### [facility] [address] [place] [address] Dr. Jackelyn Celestin CHLAMYDIA/GONOCOCCUS ALONDRA (SW AB/URINE/PAPon 05-14-2022 Chlamydia trachomatis, ALONDRA Negative Normal Negative [facility] Comment on above: Performed By: #### G TT3P #### [facility] [address] [place] [address] Dr. Jackelyn Celestin Neisseria gonorrhoeae, ALONDRA Negative Normal Negative [facility] Comment on above: Performed By: #### G TT3P #### [facility] [address] [place] [address] Dr. Jackelyn Celestin VAGINITIS/VAGINOSIS DNA PROB Dean 05-13-2022 Thao species Negative Normal Negative [facility] Comment on above: Performed By: #### 4 [id number] #### [facility] [address] [place] [address] Dr. Jackelyn Celestin Gardnerella vaginalis Negative Normal Negative [facility] Comment on above: Performed By: #### 4 [id number] #### [facility] [address] [place] [address] Dr. Jackelyn Celestin Trichomonas vaginalis Negative Normal Negative [facility] Comment on above: Performed By: #### 4 [id number] #### [facility] [address] [place] [address] Dr. Jackelyn Celestin CBC AUTO DIFFon 05-09-2022 BASO # 0.0 103/ul Normal 0.0-0.1 [facility] Comment on above: Performed By: #### C BC #### [facility] [address] [place] [address] Dr. Jackelyn Celestin Basophils/100 WBC (Bld) 0.3 % Normal 0.2-2.0 [facility] Comment on above: Performed By: #### C BC #### [facility] [address] [place] [address] Dr. Jackelyn Celestin EO # 0.1 103/ul Normal 0.0-0.7 [facility] Comment on above: Performed By: #### C BC #### [facility] [address] [place] [address] Dr. Jackelyn Celestin Eosinophils/100 WBC (Bld) 1.2 % Normal 0.9-7.0 [facility] Comment on above: Performed By: #### C BC #### [facility] [address] [place] [address] Dr. Jackelyn Celestin Erythrocyte distribution width (RBC) [Ratio] 11.9 % Normal 11.0-15.0 [facility] Comment on above: Performed By: #### C BC #### [facility] [address] [place] [address] Dr. Jackelyn Celestin Hematocrit (Bld) [Volume fraction] 33.7 % Critically low 36.0-48.0 [facility] Comment on above: Performed By: #### C BC #### [facility] [address] [place] [address] Dr. Jackelyn Celestin Hemoglobin (Bld) [Mass/Vol] 12.0 g/dL Normal 12.0-16.0 [facility] Comment on above: Performed By: #### C BC #### [facility] [address] [place] [address] Dr. Jackelyn Celestin IG # 0.07 10e3/ul Critically high 0.00-0.03 [facility] Comment on above: Performed By: #### C BC #### [facility] [address] [place] [address] Dr. Jackelyn Celestin IG % 0.6 % Critically high 0.0-0.5 [facility] Comment on above: Performed By: #### C BC #### [facility] [address] [place] [address] Dr. Jackelyn Celestin LYMPH # 1.3 103/ul Normal 1.2-3.8 [facility] Comment on above: Performed By: #### C BC #### [facility] [address] [place] [address] Dr. Jackelyn Celestin Lymphocytes/100 WBC (Bld) 11.5 % Critically low 20.5-60.0 [facility] Comment on above: Performed By: #### C BC #### [facility] [address] [place] [address] Dr. Jackelyn Celestin MANUAL DIFF REQ NO Normal [facility] Comment on above: Performed By: #### C BC #### [facility] [address] [place] [address] Dr. Jackelyn Celestin MCH (RBC) [Entitic mass] 31.0 pg Normal 26.7-34.0 [facility] Comment on above: Performed By: #### C BC #### [facility] [address] [place] [address] Dr. Jackelyn Celestin MCHC (RBC) [Mass/Vol] 35.6 g/dL Critically high 29.9-35.2 [facility] Comment on above: Performed By: #### C BC #### [facility] [address] [place] [address] Dr. Jackelyn Celestin MCV (RBC) [Entitic vol] 87.1 fL Normal 81.0-99.0 [facility] Comment on above: Performed By: #### C BC #### [facility] [address] [place] [address] Dr. Jackelyn Celestin MONO # 0.5 103/ul Normal 0.3-0.8 [facility] Comment on above: Performed By: #### C BC #### [facility] [address] [place] [address] Dr. Jackelyn Celestin Monocytes/100 WBC (Bld) 4.8 % Normal 1.7-12.0 [facility] Comment on above: Performed By: #### C BC #### [facility] [address] [place] [address] Dr. Jackelyn Celestin NEUT # 8.9 103/ul Critically high 1.4-6.5 [facility] Comment on above: Performed By: #### C BC #### [facility] [address] [place] [address] Dr. Jackelyn Celestin Neutrophils/100 WBC (Bld) 81.6 % Critically high 43.0-75.0 [facility] Comment on above: Performed By: #### C BC #### [facility] [address] [place] [address] Dr. Jackelyn Celestin Platelet mean volume (Bld) [Entitic vol] 11.3 fL Normal 9.5-13.5 [facility] Comment on above: Performed By: #### C BC #### [facility] [address] [place] [address] Dr. Jackelyn Celestin PLT 171 103/ul Normal 150-450 [facility] Comment on above: Performed By: #### C BC #### [facility] [address] [place] [address] Dr. Jackelyn Celestin RBC 3.87 106/ul Critically low 4.20-5.40 [facility] Comment on above: Performed By: #### C BC #### [facility] [address] [place] [address] Dr. Jackelyn Celestin WBC 10.9 103/ul Normal 4.0-11.0 [facility] Comment on above: Performed By: #### C BC #### [facility] [address] [place] [address] Dr. Jackelyn Celestin GLUCOSE - 1HRon 05-09-2022 Glucose [Mass/Vol] 142 mg/dL Critically high 74-106 [facility] Comment on above: Performed By: #### 4 [id number] #### [facility] [address] [place] [address] Dr. Jackelyn Celestin US PREG BIOPHY W [...] by: TRISTAN HART Date: 2022-05-09 10:35 Normal [facility] US PREG PLACENTAon 3 US PREG PLACENTA EXAMINATION: US PREG PLACENTA HISTORY: Falls ; mild cramping after falling COMPARISON: Ultrasound anatomy 03/17/2022 FINDINGS: PLACENTA: Posterior without previa, subchorionic hematoma, or abruption. CERVIX LENGTH: Not evaluated. HEART RATE: 158 bpm OTHER: None. IMPRESSION: 1. Unremarkable posterior placenta. No suspicious findings. Electronically authenticated by: TRISTAN HART Date: 2022-05-09 10:29 Normal [facility] US PREG ANATOMY SINGLEon US PREG [...] TRISTAN HART Date: 2022-03-17 16:29 Normal [facility] HEP B SURFACE ANTIGEN SCREEN on 02-15-2022 HBsAg Screen Negative Normal Negative [facility] Comment on above: Performed By: #### 4 [id number] #### [facility] [address] [address] [address] Jackelyn Celestin HEPATITIS C VIRUS AB W/ REFL EX QUANTon 02-15-2022 HCV AB <0.1 Normal 0.0-0.9 [facility] Comment on above: Performed By: #### H CVPCRR #### [facility] [address] [place] [address] Dr. Jackelyn Celestin Interpretation: Comment Normal [facility] Comment on above: Result Comment: Nega tive Not infected with HCV, unless recent infection is suspected or other evidence exists to indicate HCV infection. Performed By: #### H CVPCRR #### [facility] [address] [address] [address] Jackelyn Celestin HIV 1 AND 2 WITH REFLEXon HIV Screen 4th Generation wRfx Non-Reactive Normal Non Reactive [facility] Comment on above: Result Comment: HIV Negative HIV-1/HIV-2 antibodies and HIV-1 p24 antigen were NOT detected. There is no laboratory evidence of HIV infection. Performed By: #### H IV12 #### [facility] [address] [place] [address] Dr. Jackelyn Celestin RPR QUANTon 02-15-2022 Rapid Plasma Reagin, Quant Non-Reactive Normal NonRea<1:1 [facility] Comment on above: Result Comment: Plea se Note: This test does not meet current guidelines for screening and diagnosis of syphilis. This test is intended for following treatment response in patients being treated for syphilis infection. To screen for syphilis infection, a reflex cascade that includes both RPR and a treponema-specific assay should be utilized, such as Treponema pallidum (Syphilis) Screening Gem (019940) or Rapid Plasma Reagin (RPR) Test With Reflex to Quantitative RPR and Confirmatory Treponema pallidum Antibodies (120759). Performed By: #### R PRQ #### [facility] [address] [place] [address] Dr. Jackelyn Celestin RUBELLA AB IGGon 02-15-2022 Rubella Antibodies, IgG 1.97 index Normal Immune >0.99 [facility] Comment on above: Result Comment: Non- immune <0.90 Equivocal 0.90 - 0.99 Immune >0.99 Performed By: #### R UBIGG #### [facility] [address] [place] [address] Dr. Jackelyn Celestin CBC AUTO DIFFon 02-12-2022 BASO # 0.0 103/ul Normal 0.0-0.1 [facility] Comment on above: Performed By: #### C BC #### [facility] [address] [place] [address] Dr. Jackelyn Celestin Basophils/100 WBC (Bld) 0.4 % Normal 0.2-2.0 [facility] Comment on above: Performed By: #### C BC #### [facility] [address] [place] [address] Dr. Jackelyn Celestin EO # 0.2 103/ul Normal 0.0-0.7 [facility] Comment on above: Performed By: #### C BC #### [facility] [address] [place] [address] Dr. Jackelyn Celestin Eosinophils/100 WBC (Bld) 2.0 % Normal 0.9-7.0 [facility] Comment on above: Performed By: #### C BC #### [facility] [address] [place] [address] Dr. Jackelyn Celestin Erythrocyte distribution width (RBC) [Ratio] 12.8 % Normal 11.0-15.0 [facility] Comment on above: Performed By: #### C BC #### [facility] [address] [place] [address] Dr. Jackelyn Celestin Hematocrit (Bld) [Volume fraction] 40.7 % Normal 36.0-48.0 [facility] Comment on above: Performed By: #### C BC #### [facility] [address] [place] [address] Dr. Jackelyn Celestin Hemoglobin (Bld) [Mass/Vol] 14.4 g/dL Normal 12.0-16.0 [facility] Comment on above: Performed By: #### C BC #### [facility] [address] [place] [address] Dr. Jackelyn Celestin IG # 0.05 10e3/ul Critically high 0.00-0.03 [facility] Comment on above: Performed By: #### C BC #### [facility] [address] [place] [address] Dr. Jackelyn Celestin IG % 0.4 % Normal 0.0-0.5 [facility] Comment on above: Performed By: #### C BC #### [facility] [address] [place] [address] Dr. Jackelyn Celestin LYMPH # 1.7 103/ul Normal 1.2-3.8 [facility] Comment on above: Performed By: #### C BC #### [facility] [address] [place] [address] Dr. Jackelyn Celestin Lymphocytes/100 WBC (Bld) 15.1 % Critically low 20.5-60.0 [facility] Comment on above: Performed By: #### C BC #### [facility] [address] [place] [address] Dr. Jackelyn Celestin MANUAL DIFF REQ NO Normal [facility] Comment on above: Performed By: #### C BC #### [facility] [address] [place] [address] Dr. Jackelyn Celestin MCH (RBC) [Entitic mass] 31.2 pg Normal 26.7-34.0 [facility] Comment on above: Performed By: #### C BC #### [facility] [address] [place] [address] Dr. Jackelyn Celestin MCHC (RBC) [Mass/Vol] 35.4 g/dL Critically high 29.9-35.2 [facility] Comment on above: Performed By: #### C BC #### [facility] [address] [place] [address] Dr. Jackelyn Celestin MCV (RBC) [Entitic vol] 88.1 fL Normal 81.0-99.0 [facility] Comment on above: Performed By: #### C BC #### [facility] [address] [place] [address] Dr. Jackelyn Celestin MONO # 0.4 103/ul Normal 0.3-0.8 [facility] Comment on above: Performed By: #### C BC #### [facility] [address] [place] [address] Dr. Jackelyn Celestin Monocytes/100 WBC (Bld) 3.3 % Normal 1.7-12.0 [facility] Comment on above: Performed By: #### C BC #### [facility] [address] [place] [address] Dr. Jackelyn Celestin NEUT # 8.8 103/ul Critically high 1.4-6.5 [facility] Comment on above: Performed By: #### C BC #### [facility] [address] [place] [address] Dr. Jackelyn Celestin Neutrophils/100 WBC (Bld) 78.8 % Critically high 43.0-75.0 [facility] Comment on above: Performed By: #### C BC #### [facility] [address] [place] [address] Dr. Jackelyn Celestin Platelet mean volume (Bld) [Entitic vol] 11.6 fL Normal 9.5-13.5 [facility] Comment on above: Performed By: #### C BC #### [facility] [address] [place] [address] Dr. Jackelyn Celestin PLT 203 103/ul Normal 150-450 [facility] Comment on above: Performed By: #### C BC #### [facility] [address] [place] [address] Dr. Jackelyn Celestin RBC 4.62 106/ul Normal 4.20-5.40 [facility] Comment on above: Performed By: #### C BC #### [facility] [address] [place] [address] Dr. Jackelyn Celestin WBC 11.2 103/ul Critically high 4.0-11.0 [facility] Comment on above: Performed By: #### C BC #### [facility] [address] [place] [address] Dr. Jackelyn Celestin CULTURE URINEon 02-12-2022 CULTURE URINE Culture Observations : NO GROWTH. Normal [facility] Comment on above: Performed By: #### U RCX #### [facility] [address] [place] [address] Dr. Jackelyn Celestin GLYCOHEMOGLOBIN A1Con 2021 ADA RECOMMENDATION SEE BELOW Normal [facility] Comment on above: Result Comment: ADA RECOMMENDED LIMIT 4.0 - 6.0 ADA THERAPEUTIC TARGET < 7.0 ACTION SUGGESTED > 7.0 Performed By: #### 4 [id number] #### [facility] [address] [place] [address] Dr. Jackelyn Celestin Glucose [Mass/Vol] 94 mg/dL Normal [facility] Comment on above: Performed By: #### 4 [id number] #### [facility] [address] [place] [address] Dr. Jackelyn Celestin HbA1c (Bld) [Mass fraction] 4.9 % Normal 4.5-6.2 [facility] Comment on above: Performed By: #### 4 [id number] #### [facility] [address] [place] [address] Dr. Jackelyn Celestin TYPE AND SCREENon 02-12-2022 TYPE AND SCREEN Negative Normal [facility] Comment on above: Performed By: #### T NS #### [facility] [address] [place] [address] Dr. Jackelyn Celestin US PREG TVon 01-21-2022 [...] by: DONALD AGUILAR Date: 2022-01-21 16:41 Normal [facility] Coding Summary.on 12-12-2019 Coding Summary. CODING DATE: 020 FINAL [facility] STATUS: Home (Routine DC) PAYOR: [...] CphT Date Saved: 12/12/2019 10:59 am Normal [facility] Family Medicine Office/Clini c Noteon 11-21-2019 [...] day(s), # 20 tab(s), Refills(s) 0, Pharmacy: [facility], 159, cm, 11/21/19 19:13:00 EDT, Height/Length Dosing, 96, kg, 11/21/19 19:13:00 EDT, Weight Dosing Follow-up No qualifying data available Patient Education Body Mass Index, BMI DASH Diet MyPlate from [facility] Obesity Otitis Media, Adult Problem List/Past Medical [...] cancer: Grandparent. Hypertension: Grandparent. Stroke: Grandparent. Normal [facility] Comment on above: Result Comment: Elec [...] Document Reviewed: 01/04/2006 ExitCare? Patient Information ?2014 [employer]. DASH Diet The DASH diet stands for [...] beef, chicken breast, turkey breast. All fish. [place], bake, or broil your meat. Nothing should [...] Document Reviewed: 03/15/2012 ExitCare? Patient Information ?2013 [employer]. [employer], [facility] The amount you need to eat from [...] Document Reviewed: 06/16/2008 ExitCare? Patient Information ?2013 [employer] [facility]. Family Medicine Obesity Obesity is defined [...] Document Reviewed: 05/02/2012 ExitCare? Patient Information ?2014 [employer]. Otitis Media, Adult A middle ear infection [...] the first few days. ? Only take [id number] or prescription medicines for pain, discomfort, or [...] Document Reviewed: 10/31/2008 ExitCare? Patient Information ?2013 [employer] [facility]. Normal [facility] SARS-CoV-2, NAAon 11-20-2019 SARS CORONAVIRUS 2 RNA:PRTHR:PT:RESPIRATO RY:ORD:PROBE.AMP.TAR Not Detected Not Detected [facility] Comment on above: Result Comment: This test was developed and its performance characteristics determined by [employer]. This test has not been FDA cleared [...] detected) result in this assay. Performed at: [facility] [id number] [facility] [place] [id number] MD Malaika Velez Performed By: #### S ARS-CoV-2, ALONDRA #### [facility] [address] [place] [address] [facility] Video Visit - Telehealthon 11-16-2019 [facility] Medicine Video Visit - Telehealth Chief [...] interactive video communications from my office using [employer] due to the restrictions of the COVID-19 pandemic. No physical exam was conducted other than those areas of the body visible to telecommunications with the patient located at [address] [phone], with no one else in attendance. If [...] cancer: Grandparent. Hypertension: Grandparent. Stroke: Grandparent. Normal [facility] Comment on above: Result Comment: Elec tronically Signed By: Abbey ESTRADA CNP\.ynes\Date and Time Signed: 11/16/19 14:27 EDT URINE CULTUREon 07-10-2017 Urine culture, bacteria SPECIMEN DESCRIPTION URINE CLEAN CATCHUA DIPSTICK NITRITE NEGATIVE * Result Note: LEUKOCYTE NEGATIVE *CULTURE ESCHERICHIA COLI * Result Note: 50,000 C/C/ML * * Result Note: Testing performed at [facility], [place], [place] [address] *REPORT STATUS 07/10/2017 * Result Note: FINAL * O RGANISM ESCHERICHIA COLI * Result Note: ESCHERICHIA COLI *METHOD MICAMPICILLIN <=2 SUSCEPTIBLEAMPICILLIN/SULBA CTAM <=2 SUSCEPTIBLECEFTRIAXONE <=1 SUSCEPTIBLECEFAZOLIN <=4 SUSCEPTIBLEIMIPENEM <=0.25 SUSCEPTIBLEGENTAMICIN <=1 SUSCEPTIBLETRIMETH-SULFA <=20 SUSCEPTIBLEAMOXICILLIN/CLAV ULANIC A <=2 SUSCEPTIBLENITROFURANTOIN 32 SUSCEPTIBLEPIPERACILLIN/SADA OBACTAM <=4 SUSCEPTIBLELEVOFLOXACIN <=0.12 SUSCEPTIBLEESBL NEGATIVECEFTAZIDIME <=[address] [facility] Comment on above: Performed By: #### A URNC ####Testing performed at [address] [address]Wcdjdjf performed at [address] [address] BHCG,QUANTITATIVEon 07-08-19 18 BHCG,QUANTITATIVE 133.56 MIU/ML Normal [facility] Comment on above: Result Comment: [facility] INTERPRETIVE RANGES: NON FEMALE 0-6 MIU/MLMALE ADULT [...] #### A CBC, BHCG2 ####Testing performed at [address] [address] CBCon 07-07-2017 ABSOLUTE BAS 0.[address] [facility] Comment on above: Performed By: #### A CBC, BHCG2 ####Testing performed at [address] [place] [address] ABSOLUTE EOS 0.[address] [facility] Comment on above: Performed By: #### A CBC, BHCG2 ####Testing performed at [address] [place] [address] Basophils/100 WBC Auto (Bld) 0.6 % Normal 0.0-2.0 [facility] Comment on above: Performed By: #### A CBC, BHCG2 ####Testing performed at [address] [place] [address] DTYPE AUTO DIFF Normal [facility] Comment on above: Performed By: #### A CBC, BHCG2 ####Testing performed at [address] [place] [address] Eosinophils/100 leukocytes 2.0 % Normal 0.0-11.0 [facility] Comment on above: Performed By: #### A CBC, BHCG2 ####Testing performed at [address] [place] [address] Lymphocytes 2[address] [facility] Comment on above: Performed By: #### A CBC, BHCG2 ####Testing performed at [address] [place] [address] Lymphocytes/100 leukocytes 23.0 % Normal 20.0-55.0 [facility] Comment on above: Performed By: #### A CBC, BHCG2 ####Testing performed at [address] [place] [address] Monocytes 0.[address] [facility] Comment on above: Performed By: #### A CBC, BHCG2 ####Testing performed at [address] [address] Monocytes/100 leukocytes 7.1 % Normal 0.0-10.0 [facility] Comment on above: Performed By: #### A CBC, BHCG2 ####Testing performed at [address] [place] [address] Neutrophils 5.9 x10 Normal 1.0-7.0 [facility] Comment on above: Performed By: #### A CBC, BHCG2 ####Testing performed at [address] [address] Neutrophils/100 leukocytes 67.3 % Normal 37.0-75.0 [facility] Comment on above: Performed By: #### A CBC, BHCG2 ####Testing performed at [address] [address] Erythrocyte distribution width Auto Ratio (RBC) 12.1 % Normal 11.5-14.5 [facility] Comment on above: Performed By: #### A CBC, BHCG2 ####Testing performed at [address] [address] Erythrocytes (RBC) 4.72 /cmm Normal 4.0-5.4 [facility] Comment on above: Performed By: #### A CBC, BHCG2 ####Testing performed at [address] [address] Hematocrit (HCT) 43.2 % Normal 36.0-48.0 [facility] Comment on above: Performed By: #### A CBC, BHCG2 ####Testing performed at [address] [address] Hemoglobin mass conc (Bld) 15.1 g/dL Normal 12.0-16.0 [facility] Comment on above: Performed By: #### A CBC, BHCG2 ####Testing performed at [address] [address] MCH 32.0 pg Normal 26.0-35.0 [facility] Comment on above: Performed By: #### A CBC, BHCG2 ####Testing performed at [address] [address] MCHC mass conc (RBC) 35.0 g/dL Normal 27.0-37.0 [facility] Comment on above: Performed By: #### A CBC, BHCG2 ####Testing performed at [address] [address] MCV 91.5 fL Normal 80.0-100.0 [facility] Comment on above: Performed By: #### A CBC, BHCG2 ####Testing performed at [address] [address] Platelet mean volume (PMV) 9.2 fL Normal 7.4-11.0 [facility] Comment on above: Performed By: #### A CBCALEXANDRACG2 ####Testing performed at [address] [address] Platelets 235 /cmm Normal 130.0-400. 0 [facility] Comment on above: Performed By: #### A CBCALEXANDRACG2 ####Testing performed at [address] [address] WBC (Leukocytes) 8.8 /cmm Normal 3.6-11.0 [facility] Comment on above: Performed By: #### A CBCALEXANDRACG2 ####Testing performed at [address] [address] ED NOTEon 07-07-[address] [facility] [address] [facility] ED PROVIDERon 07-07-[address] [facility] [address] [facility] URINE MACROSCOPICon 07-08-19 18 Bilirubin Ql (U) Negative Normal NEGATIVE [facility] Comment on above: Performed By: #### U MAC, UMIC ####Testing performed at [address] [address] URINE HEMOGLOBIN LARGE Abnormal NEGATIVE [facility] Comment on above: Performed By: #### U MAC, UMIC ####Testing performed at [address] [address] URINE KETONE Negative Normal NEGATIVE [facility] Comment on above: Performed By: #### U MAC, UMIC ####Testing performed at [address] [address] URINE LEUKOTEST Negative Normal NEGATIVE [facility] Comment on above: Performed By: #### U MAC, UMIC ####Testing performed at [address] [address] URINE NITRATES Negative Normal NEGATIVE [facility] Comment on above: Performed By: #### U MAC, UMIC ####Testing performed at [address] [address] URINE SPEC GRAVITY 1.025 Normal 1.010-1.[address] [facility] Comment on above: Performed By: #### U MAC, UMIC ####Testing performed at [address] [place] [address] URINE TOTAL PROTEIN Negative Normal NEGATIVE [facility] Comment on above: Performed By: #### U MAC, UMIC ####Testing performed at [address] [place] [address] Urine, clarity CLEAR Normal CLEAR [facility] Comment on above: Performed By: #### U MAC, UMIC ####Testing performed at [address] [place] [address] Urine, color YELLOW Normal YELLOW [facility] Comment on above: Performed By: #### U MAC, UMIC ####Testing performed at [address] [place] [address] Urine, glucose presence Negative Normal NEGATIVE [facility] Comment on above: Performed By: #### U MAC, UMIC ####Testing performed at [address] [place] [address] Urine, pH 7.0 [pH] Normal 5.0-7.0 [facility] Comment on above: Performed By: #### U MAC, UMIC ####Testing performed at [address] [place] [address] Urine, urobilinogen 1.0 mg/dl Normal 0.2-1.0 [facility] Comment on above: Performed By: #### U MAC, UMIC ####Testing performed at [address] [address] URINE MICROSCOPICon 07-08-19 18 CRYSTAL OCCASIONAL Abnormal NONE [facility] Comment on above: Result Comment: CHRIS PHOUS PHOSPHATES Performed By: #### U MAC, UMIC ####Testing performed at [address] [place] [address] URINE COMMENT REFLEX CULTURE PER ESTABLISHED CRITERIA. Normal [facility] Comment on above: Performed By: #### U MAC, UMIC ####Testing performed at [address] [place] [address] URINE WBC'S 1 TO [address] [facility] Comment on above: Performed By: #### U MAC, UMIC ####Testing performed at [address] [place] [address] Urine, bacteria in sediment 1+ Abnormal NEGATIVE [facility] Comment on above: Performed By: #### U MAC, UMIC ####Testing performed at [address] [place] [address] Urine, casts in sediment NONE Normal NONE [facility] Comment on above: Performed By: #### U MAC, UMIC ####Testing performed at [address] [place] [address] Urine, epithelial cells in sediment [address] [facility] Comment on above: Performed By: #### U MAC, UMIC ####Testing performed at [address] [address] Urine, erythrocytes 1 TO [address] [facility] Comment on above: Performed By: #### U MAC, UMIC ####Testing performed at [address] [place] [address] Urine, mucus presence in sediment Negative Normal NEGATIVE [facility] Comment on above: Performed By: #### U MAC, UMIC ####Testing performed at [address] [place] [address] BhCG Quanton 07-05-2017 HCG.beta subunit Qn 238.0 mIU/m Normal [facility] Comment on above: Result Comment: FEMA LE (NON-) & MALE <3 BORDERLINE 3 - 5 SUGGEST REPEAT TESTING FEMALE () 1 D - 1 WK 5 - 50 1 - 2 WK 50 - 500 2 - 3 WK 100 - 5000 3 - 4 WK 500 - 90703 4 - 5 WK 1000 - [address]7039 5 - 6 WK [address] - 904591 6 - 8 WK [address] - 606708 2 - 3 [place] [address] - 534206 Performed By: #### 2 028224 ####JIMMIE FjpLaci8047 [place] [address] Auto Diffon 07-04-2017 Basophils Auto #/vol (Bld) 0.1 E3/mcL Normal 0.0-0.2 [facility] Comment on above: Order Comment: Order Added by Discern Expert. Performed By: #### 2 [id number] ####JIMMIE MtqOjum8398 [place] [address] Basophils/100 WBC Auto (Bld) 0.6 % Normal 0.0-2.0 [facility] Comment on above: Order Comment: Order Added by Discern Expert. Performed By: #### 2 [id number] ####JIMMIE DanQyuXufz9270 [place] [address] Eos Absolute 0.3 E3/mcL Normal 0.0-0.7 [facility] Comment on above: Order Comment: Order Added by Discern Expert. Performed By: #### 2 713229 ####JIMMIE DanJonGzgf2420 [place] [address] Eosinophils/100 leukocytes 2.5 % Normal 0.0-11.0 [facility] Comment on above: Order Comment: Order Added by Discern Expert. Performed By: #### 2 524639 ####JIMMIE DanBafZozo3647 [place] [address] Lymphocytes 2.3 E3/mcL Normal 1.2-3.4 [facility] Comment on above: Order Comment: Order Added by Discern Expert. Performed By: #### 2 666234 ####JIMMIE DanLthAzhk4809 [place] [address] Lymphocytes/100 leukocytes 22.2 % Normal 20.0-55.0 [facility] Comment on above: Order Comment: Order Added by Discern Expert. Performed By: #### 2 719825 ####JIMMIE DanLfaYjms6925 [place] [address] Costilla Absolute 0.8 E3/mcL High 0.0-0.7 [facility] Comment on above: Order Comment: Order Added by Discern Expert. Performed By: #### 2 223324 ####JIMMIE DanEpzKobr2829 [place] [address] Monocytes/100 leukocytes 7.6 % Normal 0.0-10.0 [facility] Comment on above: Order Comment: Order Added by Discern Expert. Performed By: #### 2 337538 ####JIMMIE DanJtrFusv2508 [place] [address] Neutro Absolute 6.9 E3/mcL High 1.4-6.5 [facility] Comment on above: Order Comment: Order Added by Discern Expert. Performed By: #### 2 986955 ####JIMMIE DanEweBazc0743 [place] [address] Neutro Auto 67.1 % Normal 37.0-75.0 [facility] Comment on above: Order Comment: Order Added by Discern Expert. Performed By: #### 2 474787 ####JIMMIE DanCkzSfxt0577 [place] [address] BMPon 07-04-2017 BUN/Creatinine Ratio 21.7 ratio Normal 5.4-30.[address] [facility] Comment on above: Performed By: #### 2 415190 ####JIMMIE GbwIcmu0509 [place] [address] Creatinine 0.6 mg/dL Normal 0.6-1.3 [facility] Comment on above: Performed By: #### 2 015056 ####JIMMIE QdpWhcd6610 [place] [address] Urea nitrogen 13 mg/dL Normal 7-18 [facility] Comment on above: Performed By: #### 2 375913 ####JIMMIE StsOozj0434 [place] [address] Calcium 8.4 mg/dL Normal 8.4-10.2 [facility] Comment on above: Performed By: #### 2 379729 ####JIMMIE HagHfby5731 [place] [address] Chloride 100 mmol/L Normal 98-107 [facility] Comment on above: Performed By: #### 2 576369 ####JIMMIE FohMzah9633 [place] [address] CO2 27.7 mmol/L Normal 24.0-30.0 [facility] Comment on above: Performed By: #### 2 754937 ####JIMMIE AuzIdql5388 [place] [address] Glucose mass conc 98 mg/dL Normal 70-99 [facility] Comment on above: Performed By: #### 2 064964 ####JIMMIE GeyBufn3013 [place] [address] Potassium molar conc 3.4 mmol/L Low 3.5-5.[address] [facility] Comment on above: Performed By: #### 2 134363 ####JIMMIEJonathan DanTqcRoon4069 [place] [address] Sodium 133 mmol/L Low 136-145 [facility] Comment on above: Performed By: #### 2 731166 ####JIMMIE UplWico3039 [place] [address] BhCG Quanton 07-04-2017 HCG.beta subunit Qn 190.8 mIU/m Normal [facility] Comment on above: Result Comment: FEMA LE (NON-) & MALE <3 BORDERLINE 3 - 5 SUGGEST REPEAT TESTING FEMALE () 1 D - 1 WK 5 - 50 1 - 2 WK 50 - 500 2 - 3 WK 100 - 5000 3 - 4 WK 500 - [address] 4 - 5 WK 1000 - [address]89 5 - 6 WK [address] - 944535 6 - 8 W[place] [address] - 219488 2 - 3 [place] [address] - [address]71 Performed By: #### 2 [id number] ####JIMMIEJonathan DanJszRjiz3456 [place] [address] CBC w/ Auto Diffon 8 Erythrocyte distribution width Auto Ratio (RBC) 11.6 % Normal 11.5-14.5 [facility] Comment on above: Performed By: #### 2 136818 ####JIMMIEJonathan OzunaHnhZhas0250 [place] [address] Erythrocytes (RBC) 4.43 E6/mcL Normal 3.90-5.40 [facility] Comment on above: Performed By: #### 2 512367 ####JIMMIEJonathan OzunaMhdUbjj0683 [place] [address] Hematocrit (HCT) 40.1 % Normal 36.0-48.0 [facility] Comment on above: Performed By: #### 2 813002 ####JIMMIE Ozunao1025 [place] [address] Hemoglobin mass conc (Bld) 14.1 g/dL Normal 12.0-16.0 [facility] Comment on above: Performed By: #### 2 580238 ####JIMMIE Ozunao1025 [place] [address] MCH 31.7 pg High 27.0-31.0 [facility] Comment on above: Performed By: #### 2 923860 ####JIMMIE Ozunao1025 [place] [address] MCHC mass conc (RBC) 35.1 g/dL Normal 33.0-37.[address] [facility] Comment on above: Performed By: #### 2 801007 ####JIMMIE Ozunao1025 [place] [address] MCV 90.4 fL Normal 78.0-100.0 [facility] Comment on above: Performed By: #### 2 243656 ####JIMMIE Ozunao1025 [place] [address] Platelet mean volume (PMV) 8.4 fL Normal 7.4-11.0 [facility] Comment on above: Performed By: #### 2 278345 ####JIMMIE Ozunao1025 [place] [address] Platelets 232 E3/mcL Normal 130-400 [facility] Comment on above: Performed By: #### 2 811178 ####JIMMIE Ozunao1025 [place] [address] WBC (Leukocytes) 10.3 E3/mcL Normal 3.6-11.0 [facility] Comment on above: Performed By: #### 2 549557 ####JIMMIE Ozunao1025 [place] [address] Hep Func Panelon 07-04-2017 Alanine aminotransferase (ALT) 15 Int._Unit/L Normal 10-40 [facility] Comment on above: Performed By: #### 2 547177 ####JIMMIE CivTqcg5480 [place] [address] Albumin 3.8 g/dL Normal 3.2-5.0 [facility] Comment on above: Performed By: #### 2 708245 ####JIMMIE ChdDiif2132 [place] [address] Albumin/Globulin Ratio 1.4 {ratio} Normal 1.1-1.9 [facility] Comment on above: Performed By: #### 2 600668 ####JIMMIE YazUgos9699 [place] [address] Alk Phos 36 Int._Unit/L Low 42-121 [facility] Comment on above: Performed By: #### 2 359962 ####JIMMIE GhkDmdl8479 [place] [address] Aspartate aminotransferase (AST) 18 Int._Unit/L Normal 10-42 [facility] Comment on above: Performed By: #### 2 303925 ####JIMMIE FrmHewl3252 [place] [address] Bili Direct <.10 Normal .00-.20 [facility] Comment on above: Performed By: #### 2 126374 ####JIMMIE CaaWujd7878 [place] [address] Bili Indirect >0.7 Normal [facility] Comment on above: Result Comment: No e stablished ranges available for the Indirect Biliruben. Performed By: #### 2 003069 ####JIMMIE YrlHtev0596 [place] [address] Bili Total 0.8 mg/dL Normal 0.2-1.0 [facility] Comment on above: Performed By: #### 2 781609 ####JIMMIEJonathan DanChhUmss9758 [place] [address] Globulin 2.8 g/dL Normal 2.0-4.0 [facility] Comment on above: Performed By: #### 2 285538 ####JIMMIE PvgLmtt7377 [place] [address] Protein 6.6 g/dL Normal 6.4-8.3 [facility] Comment on above: Performed By: #### 2 518324 ####JIMMIE LelGtvq8528 [place] [address] Lipase Levelon 07-04-2017 Lipase Lvl 19 U/L Normal 8-57 [facility] Comment on above: Performed By: #### 2 748992 ####JIMMIE KycQcvv1522 [place] [address] U BhCG Qlton 07-04-2017 HCG.beta subunit Qn Positive Normal Neg [facility] Comment on above: Performed By: #### 2 400403 ####JIMMIE Urinalysis Manual Zytqfbqfny9188 [place] [address] UA Completeon 07-04-2017 UA Blood 3+ Normal Negative [facility] Comment on above: Performed By: #### 8 8561337 ####JIMMIE Urinalysis Automated Sgelnmqbga2534 [place] [address] UA Bacteria Trace Abnormal None [facility] Comment on above: Performed By: #### 8 [id number] ####JIMMIE Urinalysis Automated Ntogpuvpaw9036 [place] [address] UA Clarity SltCloudy Abnormal Clear [facility] Comment on above: Performed By: #### 8 [id number] ####JIMMIE Urinalysis Automated Ujgmqzugyw4245 [place] [address] UA Leuk Est Trace Normal Negative [facility] Comment on above: Performed By: #### 8 [id number] ####JIMMIE Urinalysis Automated R[address] [place] [address] UA Mucous Occasional Abnormal Trace [facility] Comment on above: Performed By: #### 8 0844661 ####JIMMIE Urinalysis Automated V[address]zsj[address] [place] [address] UA Nitrite Negative Normal Negative [facility] Comment on above: Performed By: #### 8 1332057 ####JIMMIE Urinalysis Automated [address]vafei[address] [place] [address] UA pH 5.0 Normal 4.6-8.0 [facility] Comment on above: Performed By: #### 8 2551487 ####JIMMIE Urinalysis Automated Oymtbjjvyi9468 [place] [address] UA Protein Negative Normal Negative [facility] Comment on above: Performed By: #### 8 1351550 ####JIMMIE Urinalysis Automated Ygcmtcwhsm1908 [place] 5244505 UA Spec Grav 1.027 Normal 1.003-1.03 0 [facility] Comment on above: Performed By: #### 8 [id number] ####JIMMIE Urinalysis Automated Afcxhbomwu7641 [place] [address] UA Squam Epithelial 0-5 Normal 0-5 [facility] Comment on above: Performed By: #### 8 [id number] ####JIMMIE Urinalysis Automated Hlovdibywb7439 [place] [address]450[address] UA Urobilinogen Negative Normal [facility] Comment on above: Performed By: #### 8 9297797 ####JIMMIE Urinalysis Automated Hwexxmimnk2031 [place] [address] UA WBC 10-20 Abnormal 0-5 [facility] Comment on above: Performed By: #### 8 4692991 ####JIMMIE Urinalysis Automated Rkryudzafc0737 [place] [address] Urine, color Yellow Normal Yellow [facility] Comment on above: Performed By: #### 8 2495900 ####JIMMIE Urinalysis Automated Zqbkuegazq3669 [place] [address] Urine, erythrocytes 5-10 Abnormal 0-3 [facility] Comment on above: Performed By: #### 8 [id number] ####JIMMIE Urinalysis Automated Zanaychltm6467 [place] [address] Urine, glucose Negative Normal Negative [facility] Comment on above: Performed By: #### 8 4074046 ####JIMMIE Urinalysis Automated Wzzemynezu6470 [place] [address] Urine, ketones presence Negative Normal Negative [facility] Comment on above: Performed By: #### 8 0919011 ####JIMMIE Urinalysis Automated Exzpezrjmd2559 [place] [address] Urine, urobilinogen Negative Normal Negative [facility] Comment on above: Performed By: #### 8 [id number] ####JIMMIE Urinalysis Automated Eeyyrrwdnc8969 [place] [address] eGFRon 07-04-2017 eGFR (non-black) mL/min/{1.73_m2} Normal [facility] Comment on above: Order Comment: Order added by Discern Expert. Performed By: #### 1 [id number] ####JIMMIE RzrIzmp8947 [place] [address] Vital Signs Date Time Vital Sign Value Performing Clinician Cong reynolds 04-20-2023 14:07-0500 Diastolic blood pressure 75 mm[Hg] [facility] 04-20-2023 14:07-0500 Heart rate 93 /min [facility] 04-20-2023 14:07-0500 Respiratory rate 18 /min [facility] 04-20-2023 14:07-0500 SaO2% (BldA) [Mass fraction] 99 % [facility] [address] [place] [address] 04-20-2023 14:07-0500 Systolic blood pressure 127 mm[Hg] [facility] [address] [place] [address] 04-20-2023 14:06-0500 Body height 160 cm [facility] [address] [place] [address] 04-20-2023 14:06-0500 Body mass index (BMI) [Ratio] 37.22 kg/m2 [facility] [address] [place] [address] 04-20-2023 14:06-0500 Body temperature 97.7 [degF] [facility] [address] [place] [address] 04-20-2023 14:06-0500 Body weight 95.3 kg [facility] [address] [place] [address] 03-10-2023 23:05-0500 Diastolic blood pressure 80 mm[Hg] Supriya Aichholz Work Phone: [facility] 03-10-2023 23:05-0500 Heart rate 100 /min Supriya Aichholz Work Phone: [facility] 03-10-2023 23:05-0500 Respiratory rate 20 /min Supriya Aichholz Work Phone: [facility] 03-10-2023 23:05-0500 SaO2% (BldA) [Mass fraction] 98 % Supriya Aichholz Work Phone: [facility] 03-10-2023 23:05-0500 Systolic blood pressure 137 mm[Hg] Supriya Aichholz Work Phone: [facility] 03-10-2023 17:38-0500 Body temperature 97.9 [degF] Supriya Aichholz Work Phone: [facility] 03-10-2023 17:32-0500 Body height 160.02 cm Supriya Aichholz Work Phone: [facility] 03-10-2023 17:32-0500 Body weight 95 kg Supriya Aichholz Work Phone: [facility] Encounters Encounter Date Encounter Type Care Provider [...] MORTEZA Not Available Start: 05-22-2023 End: 05-22-2023 [facility] Start: 05-22-2023 End: 05-22-2023 Postop follow up visit related to original px Gerson Malik MD Work Phone: [facility] Comment on above: Status [...] 05-04[facility]2023 [facility]: 05-04-2023 End: 05-04-2023 Evaluation and management of inpatient [facility] Start: 04-20-2023 End: [facility]: 04-20-2023 End: 04-20-2023 Patient encounter procedure [facility] 10 [facility] Start: 03-31-2023 End: 03-31-2023 ambulatory XIN MORTEZA Not Available Start: 03-30-2023 End: 03-30-2023 ambulatory [facility] Start: 03-14-2023 End: 03-14-2023 ambulatory XIN MORTEZA Not Available Start: 03-10-2023 End: 03-11-2023 Emergency department patient visit Jacky Alarcon Facility:[facility] Start: 03-10-2023 End: 03-10-2023 Emergency department patient visit Supriya Emmanuelreillyangie Work Phone: [facility] Work Phone: Start: 03-07-2023 End: [...] 07-07-2017 End: 07-07-2017 Emergency department patient visit [facility] Start: 07-05-2017 End: 07-06-2017 Ambulatory Dickson Ahmadi Facility:[facility] Start: 07-04-2017 End: 07-04-2017 Emergency department patient visit Dickson Reinoso [place] Facility:[facility] Procedures Date Procedure Procedure Detail Performing [...] Td Vaccines (5 - Td or Tdap) [facility] Start: 05-04-2024 Adult BMI Screening Adult BMI Screen ing [facility] Start: 05-04-2024 Tobacco Screening Tobacco Screening [facility] Start: 04-20-2024 Adult BMI Screening Adult BMI Screen ing [facility] Start: 04-20-2024 Tobacco Screening Tobacco Screening [facility] Start: 06-05-2023 End: 06-05-2023 Patient encounter procedure 06/05/2023 9:50 AM EST Routine [facility] [address] [place] [id number] Xin Pro, DO [address] [place] [address] [facility] Start: 05-04-2023 End: 05-04-2023 Admission to same day surgery center 05/04/2023 7:30 AM EST - 05/04/2023 9:30 AM EST Surgery [facility] [address] [place] [address] [id number] Gerson Malik MD [address] [place] [address] DAVINCI CHOLECYSTECTOMY [facility] Comment on above: DAVINCI CHOLECYSTECT ANDREA Start: 05-04-2023 End: 05-04-2023 DAVINCI CHOLECYSTECTOMY DAVINCI CHOLECYSTECTOMY CHOLELITHIASIS 05/04/2023 7:[address] [facility] Start: 05-04-2023 End: 05-04-2023 DAVINCI CHOLECYSTECTOMY CHOLANGIOGRAM DAVINCI CHOLECYSTECTOMY CHOLANGIOGRAM CHOLELITHIASIS 05/04/2023 7:[address] [facility] Start: 05-04-2023 Subsequent hospital visit by physician 05/04/2023 7:30 AM EST Hospital Encounter [facility] [address] [place] [address]. [place] [address] Gerson Malik MD [address] [place] [address] [facility] Start: 03-10-2023 US Gallbladder [facility] Start: 03-10-2023 US scan of gallbladder US gall bladd er [facility] Start: 03-10-2023 Bacteria identified in Urine by Culture [facility] Start: 12-09-2022 Influenza vaccination Influenza Vacc ine [facility] Start: 2019 Screening for malign ant neoplasm of cervix Pap Smear [facility] Start: 2016 Adult BMI Follow Up Plan Adult BMI F ollow Up Plan [facility] Start: 2010 [facility] Education - Th e Second Month Nausea and Vomiting, Adult ED Gallstones ED [facility] Work Phone: Patient referral [facility] Work Phone: Payers Date Payer Category Payer Unknown [id number] 2022 Private Health Insurance [id number] 2022 Unknown [id number] 2017 Unknown 1998 Unknown [id number] 2.16.84 0.1.993909.3.579.2.593 1998 Unknown [id number] 2.16.84 0.1.598683.3.579.2.593 1998 Unknown [id number] 2.16.84 0.1.934247.3.579.2.593 1998 Unknown [id number] 2.16.84 0.1.962697.3.579.2.593 1998 Unknown [id number] 2.16.84 0.1.753125.3.579.2.593 1998 Unknown [id number] 2.16.84 0.1.191499.3.579.2.593 1998 Unknown [id number] 2.16.84 0.1.497291.3.579.2.593 1998 Unknown [id number] 2.16.84 0.1.950085.3.579.2.593 1998 Unknown [id number] 2.16.84 0.1.009095.3.579.2.593 1998 Unknown [id number] 2.16.84 0.1.488526.3.579.2.593 1998 Unknown [id number] 2.16.84 0.1.842695.3.579.2.593 1998 Unknown [id number] 2.16.84 0.1.468104.3.579.2.593 1998 Unknown [id number] 2.16.84 0.1.212602.3.579.2.593 1998 Unknown [id number] 2.16.8 40.1.343818.3.579.2.1286 1998 Unknown [id number] 2.16.8 40.1.810030.3.579.2.1286 1998 Unknown [id number] 2.16.8 40.1.162792.3.579.2.1286 1998 Unknown [id number] 2.16.8 40.1.044948.3.579.2.1286 1998 Unknown [id number] 2.16.84 0.1.596193.3.579.2.1286 1998 Unknown [id number] 2.16.84 0.1.096556.3.579.2.1286 1998 Unknown [id number] 2.16.84 0.1.302946.3.579.2.1259 1998 Unknown [id number] 2.16.84 0.1.206709.3.579.2.1259 1998 Unknown [id number] 2.16.84 0.1.194074.3.579.2.9 1998 Unknown [id number] 2.16.84 0.1.781313.3.579.2.1259 1998 Unknown [id number] 2.16.84 0.1.784839.3.579.2.1259 1998 Unknown [id number] 2.16.84 0.1.476444.3.579.2.1259 1998 Unknown [id number] 2.16.84 0.1.924249.3.579.2.1259 1998 Unknown [id number] 2.16.840 .1.258939.3.579.2.1259 1998 Unknown [id number] 2.16.840 .1.080506.3.579.2.9 1998 Unknown [id number] 2.16.840 .1.811777.3.579.2.1259 1959 Private Health Insurance [id number] 1959 Self-pay 1959 Unknown [id number] 1959 Unknown [id number] Unknown [id number] 2.16.8 40.1.051084.3.579.2.531 Social History Date Type Detail Facility Start: 03-10-2023 End: 03-30-2023 Tobacco smoking status NHIS Never smoked tobacco (finding) [facility] Start: 2000 Sex Assigned At Female F [facility] Start: 03-30-2023 End: 05-16-2023 Tobacco use and exposure Smokeless tobacco non-user [facility] Start: 04-20-2023 End: 05-04-2023 Alcohol intake Ex-drinker (finding) [facility] Start: 05-21-2020 End: 04-20-2023 [address] of [address] [facility] Start: 05-21-2020 End: 04-20-[address] [facility] Housing Instability Unknown [facility] Start: 2000 Sex Assigned At Not on file P [facility] Start: 05-16-2023 Alcohol intake Lifetime non-d yrn (finding) [facility] Start: 02-10-2023 [facility] [...] documented in this encounter [facility] [employer] [facility] Instructions 04-20-2023 Patient Instructions Note Date & Type Note Facility 04-20-2023 Instructions Terri Estrada RN - 04/20/2023 1:45 PM EST Your surgery/procedure is scheduled at [facility] on 05/04/23 at 0730 Arrival Time 0530 [facility] Address: [address] [place] [address] Park in [address] Parking lot located on [facility]. Report to the Entrance B. Check in at the information desk the surgery. The waiting room located on the second floor. If you have any questions prior to surgery, please call Pre-Admission Clinic at [phone] between 7:30 am and 4:30 pm Monday through Monday. If you have questions the morning of surgery, please call the Pre-op Department at [phone]. PLEASE FOLLOW THESE INSTRUCTIONS OR YOUR SURGERY [...] would like to schedule therapy at a [facility] facility, please call [phone] ([phone]). Do not use lotions, creams, powders, perfume, make up, cologne or after-shaves day of surgery. Remove ALL jewelry including wedding rings, body piercings,hair extensions that contain metal, nail macanese, make-up, and contact lens. You may brush [...] RIGHTS AND RESPONSIBILITIES As a patient at [facility], you have the right to: Receive medical care and be informed of who is taking care of you Be treated with dignity and respect Have a family member/sales representative meats of choice and your physician notified of your admission Receive information and actively participate in decisions about your care and treatment Refuse care, treatment and services Decide who may provide your support and speak for you Access restorationism and spiritual services Participate in ethical issues [...] charges and payment methods Patient/patient sales representative meats responsibilities are to: Provide information about health [...] in clean clothes. documented in this encounter [facility] Note 04-20-2023 Perioperative Nursing Note - Lexi Reddy RN - 04/20/2023 1:45 PM EST Note Date & Type Note Facility 04-20-2023 Miscellaneous Notes Formattin g of this note might be different from the original. Appt reminder call done-message left documented in this encounter [facility] Nurse Note 04-20-2023 Perioperative Nursing Note - Lexi Reddy RN - 04/20/2023 1:45 PM EST Note Date & Type Note Facility 04-20-2023 Nurse Note Appt reminder call done-message left [facility] Evaluation note Note Date & Type Note Facility Evaluation note No assessment information availa nusrat [facility] Work Phone: Evaluation note Note Date & Type Note Facility Evaluation note Diagnosis Status post laparoscopic cholecystectomy- Primary Other postprocedural status documented in this encounter [facility] Hospital Discharge instructions Note Date & Type Note Facility Hospital Discharge instructions Additional Instructions Return if symptoms are worse Continue your Zofran and Reglan at home and will add Phenergan for vomiting Follow-up with your surgeon [facility] Work Phone: Instructions Attachments Note Date & Type Note Facility Instructions The following attachments cannot be sent through Care Everywhere.Cholecystectomy Discharge Instructions (Maltese)documented in this encounter [facility] Summary [...] section and content) DATE CREATED AUTHOR 09/28/2017 [facility] DATE CREATED AUTHOR AUTHOR'S ORGANIZ ATION 09/29/2017 [facility] DATE CREATED AUTHOR AUTHOR'S ORGANIZ ATION 04/16/2020 [facility] DATE CREATED AUTHOR AUTHOR'S ORGANIZ ATION 08/24/2022 [facility] DATE CREATED AUTHOR AUTHOR'S ORGANIZ ATION 03/21/2023 [facility] DATE CREATED AUTHOR AUTHOR'S ORGANIZ ATION 05/24/2023 [facility] DATE CREATED AUTHOR AUTHOR'S ORGANIZ ATION 09/14/[address] [facility] [employer] Care Teams (unrecognized sec tion and content) Team Status: Active Member Role Status Dates Supriya Cerrato Primary Care Provider Active Team Status: Inactive Member Role Status Dates Supriya Cerrato Primary Care Provider Active Jacky Alarcon MD Emergency Provider Active Combination Window Installer Relationship Specialty Start Date End Date Supriya Cerrato, KD-JULIO [address] [place] [phone] PCP - General Nurse Practitioner 03/30/23 Combination Window Installer Relationship Specialty Start Date End Date Supriya CerratoKD-JULIO [address] [place] [id number] PCP - General Nurse Practitioner 03/30/23 Goals [...] BE BASED ON THE PRIMARY CLINICAL RECORDS. [facility]. provides no warranty or guarantee of the accuracy or completeness of information in this document.
[2023-09-20 16:59] VITALS: BP 131/78; PULSE 109
--- NOTE | 2023-09-20 17:35 | US_ITS ---
[address] [address] Patient Name: EDISON ASHLEY MRN: [id number] date: 2000 Sex: F Assigned Patient Location: US Current Patient Location: US Accession/Order Number: [id number] Exam Date: 09/20/2023 17:42 Report Date: 09/21/2023 07:16 At the request of: XIN GRULLON Procedure: US OB BPP w non-stress EXAMINATION: US OB BPP w non-stress HISTORY: EXCESSIVE GROWTH AFFECTING O36.63X0 COMPARISON: No relevant comparison available. TECHNIQUE: Ultrasound biophysical profile was performed in the radiology department. FINDINGS: BREATHING MOVEMENTS: 2.0 GROSS BODY MOVEMENTS: 2.0 TONE: 2.0 QUALITATIVE AMNIOTIC FLUID VOLUME: 2.0 PRESENTATION: CEPHALIC HEART RATE: 152.5 bpm H.B./min AMNIOTIC FLUID VOLUME: 14.3 cm cm GESTATIONAL AGE: 33 weeks 5 days CONCLUSION: Total biophysical profile score: 8.0 Electronically authenticated by: DONALD AGUILAR Date: 09/21/2023 07:16
== END 2023-09-20 18:03 | disposition home or self-care (01) ==
LOC: US 07:13 → FBC 16:55
PROVIDERS: Visit Provider Obstetrics & Gynecology
DX: O36.63X0 Maternal care for excessive fetal growth, third trimester, not applicable or unspecified (principal); Z3A.33 33 weeks gestation of pregnancy
CPT/HCPCS: 76818

== ENCOUNTER 2023-09-23 07:24 | Outpatient (OUT) | payer OTHER, SELFPAY ==
--- OUTSIDE RECORDS SUMMARY | 2023-09-23 07:26 | XMS_ITS | CCD ---
Author Organization [facility] CliniSysc Care Team Providers Care Jack Frame Tender Name Role Phone Cobalt, Dickson W Unavailable Unavailable Cobalt, Dickson W Unavailable Unavailable No Doctor Assigned, Nodr Unavailable Unavail able Galdino, Dickson W Unavailable Unavailable Galdino, Dickson W Unavailable Unavailable No Doctor Assigned, Nodr Unavailable Unavail able SHEMAR ., STEFAN Admitting Unavailable SHEMAR ., STEFAN Consulting Unavailable AICHHOLZ, ERP CONSULTANT SUPRIYA Primary Care Unavailable SHEMAR ., STEFAN Attending Unavailable MORTEZA ., DR LAUREN Admitting Unavailable SHEMAR ., STEFAN Consulting Unavailable AICHHOLZ, ERP CONSULTANT SUPRIYA Primary Care Unavailable MORTEZA ., DR LAUREN Attending Unavailable SHEMAR ., STEFAN Admitting Unavailable SHEMAR ., STEFAN Consulting Unavailable SHEMAR ., STEFAN Attending Unavailable AICHHOLZ, ERP CONSULTANT SUPRIYA Primary Care Unavailable AICHHOLZ, ERP CONSULTANT SUPRIYA Primary Care Unavailable MORTEZA ., DR LAUREN Attending Unavailable MORTEZA ., DR LAUREN Admitting Unavailable MORTEZA ., DR LAUREN Admitting Unavailable MORTEZA ., DR LAUREN Attending Unavailable AICHHOLZ, ERP CONSULTANT SUPRIYA Primary Care Unavailable MORTEZA ., DR LAUREN Consulting Unavailable KARASIK ., DR MURPHY Attending Unavailabl e AICHHOLZ, ERP CONSULTANT SUPRIYA Primary Care Unavailable KARASIK ., DR [...] MORTEZA ., DR LAUREN Consulting Unavailable AICHHOLZ, ERP CONSULTANT SUPRIYA Primary Care Unavailable MORTEZA ., DR LAUREN Attending Unavailable Zieber, Tristan Consulting Unavailable MORTEZA ., DR LAUREN Consulting Unavailable REQUEST, DR NONE LISTED Primary Care Unavaila ble MORTEZA ., DR LAUREN Attending Unavailable MORTEZA ., DR LAUREN Admitting Unavailable ZiebTristan diaz Consulting Unavailable MORTEZA ., DR LAUREN Admitting Unavailable AICHHOLZ, ERP CONSULTANT SUPRIYA Primary Care Unavailable MORTEZA ., DR LAUREN Attending Unavailable HOMER, DR DONALD Bryan Consulting Unavailable MORTEZA ., DR LAUREN Consulting Unavailable MORTEZA ., DR LAUREN Admitting Unavailable AICHHOLZ, ERP CONSULTANT SUPRIYA Primary Care Unavailable MORTEZA ., DR LAUREN Attending Unavailable MORTEZA ., DR LAUREN Consulting Unavailable SHEMAR ., STEFAN Attending Unavailable SHEMAR ., STEFAN Admitting Unavailable Zieber, Tristan Consulting Unavailable REQUEST, DR NONE LISTED Primary Care Unavaila ble SHEMAR ., STEFAN Consulting Unavailable MORTEZA ., DR LAUREN Admitting Unavailable MORTEZA ., DR LAUREN Consulting Unavailable MORTEZA ., DR LAUREN Attending Unavailable AICHHOLZ, ERP CONSULTANT SUPRIYA Primary Care Unavailable Paula Cerratoa J Primary Care Provider MD Jacky Alarcon Emergency Provider Jacky Alarcon Attending Unavailable Jacky Alarcon Admitting Unavailable Supriya Cerrato Primary Care Unavailable Aichholz MILL HOUSE SUPERVISOR-ERP CONSULTANT, Supriya Govea Primary Care Provider Unavailable Primary [...] Propensity to adverse reactions to drug (disorder) [facility] Repository Medications Current Medications Medication [...] 2.0 % 0.9 - 7.0 % [facility] Erythrocyte distribution width (RBC) [Ratio] 12.8 % 11.0 - 15.0 % [facility] Hematocrit (Bld) [Volume fraction] 39.3 % 36.0 - 48.0 % [facility] Hemoglobin (Bld) [Mass/Vol] 14.1 g/dL 12.0 - 16.0 g/dL [facility] IMMATURE GRANULOCYTES ABS AUTO 0.07 High [facility] Immature granulocytes/100 WBC (Bld) 0.7 % High 0.0 - 0.5 % [facility] Interpretation and review of laboratory results Abnormal [facility] LYMPHOCYTES ABSOLUTE AUTO 2.0 [facility] Lymphocytes/100 WBC (Bld) 19.1 % Low 20.5 - 60.0 % [facility] MCH (RBC) [Entitic mass] 32.0 pg 26.7 - 34.0 pg [facility] MCHC (RBC) [Mass/Vol] 35.9 g/dL High 29.9 - 35.2 g/dL [facility] MCV (RBC) [Entitic vol] 89.3 fL 81.0 - 99.0 fL [facility] MONOCYTES ABSOLUTE AUTO 0.5 [facility] Monocytes/100 WBC (Bld) 4.7 % 1.7 - 12.0 % [facility] NEUTROPHILS ABSOLUTE AUTO 7.6 High [facility] Neutrophils/100 WBC (Bld) 73.2 % 43.0 - 75.0 % [facility] Platelet mean volume (Bld) [Entitic vol] 11.4 fL 9.5 - 13.5 fL [facility] TBH EO # 0.2 [facility] TB PLT 218 [facility] RBC 4.40 [facility] WBC 10.4 [facility] Surgical Pathologyon 024 Surgical Pathology Normal [facility] Comment on above: Result Comment: [facility] [address] [place] [address] Surgical Pathology Consultation Patient Name:DARY ASHLEY:2000 (Age: 23)Gender:FTaken:4Reported:4Physician(s):GERSON Kelsey To: Rec. 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 No evidence of malignancy or dysplasia. Cholelithiasis. Report Electronically Signed Out ao/05/12/2023olamide Moreno MD Interpretation performed at [facility], [address] [place] [address], License number: [id number]. Clinical History Cholelithiasis. Gross Description Received in [...] congested, hemorrhagic and velvety in the neck. Senior Sustainability Advisor sections are submitted in cassettes A- B, as: A- cystic duct margin and accounts receivable representative ragged defects,B- accounts receivable representative neck body and fundus. After initial microscopic evaluation, additional sections are submitted in cassettes C-E. (5,ss,[id number], m6) MARYJANE/MD chairezw/05/04/2023SSI Specimen(s) Received Gallbladder Fee Codes(s): 1; 69141 gall bladderon 03-11-2023 gall bladder [facility] Main [place] [id number] Ultrasound Report Signed Patient: Dary Ashley MR#: [id number] : 2000 Acct:[id number] Age/Sex: 22 / F ADM Date: 03/10/23 Loc: ER Room: Type: [facility] ER Attending Dr: Ordering Provider: Jacky [...] Nataliia Scott M.D.03/11/2023 8:10 AM Dictation Location: [place] [address] Tech: Isi Federico Transcribed By: RONI 03/11/23 0810 Dictated By: Nataliia Scott MD 03/11/23 0807 Signed By: 03/11/23 0810 Normal [facility] Alanine aminotransferase [En zymatic activity/volume] in Serum or PlasmaOrdered By: Jacky Alarcon on 03-10-2023 ALT [Catalytic activity/Vol] 36 U/L 7-52 [facility] Albumin [Mass/volume] in Ser um or Plasma by Bromocresol green (BCG) dye binding methoOrdered By: Jacky Alarcon on 03-10-2023 Albumin BCG dye [Mass/Vol] 4.5 g/dL 3.5-5.7 [facility] Alkaline phosphatase [Enzyma tic activity/volume] in Serum or PlasmaOrdered By: Jacky Alarcon on 03-10-2023 ALP [Catalytic activity/Vol] 71 U/L 34-104 [facility] Aspartate aminotransferase [ Enzymatic activity/volume] in Serum or PlasmaOrdered By: Jacky Alarcon on 03-10-2023 AST [Catalytic activity/Vol] 17 U/L 13-39 [facility] Automated erythrocytes count in urine sediment (number/area)Ordered By: Jacky Alarcon on 03-10-2023 RBC Auto (Urine sed) [#/Area] 50-100 [HPF] 0-4 [facility] Automated leukocytes count i n urine sediment (number/area)Ordered By: Jacky Alarcon on 03-10-2023 WBC Auto (Urine sed) [#/Area] 5-9 [HPF] 0-4 [facility] Basic Metabolic Panelon Anion gap [Moles/Vol] 16.5 mmol/L High 6.0-15.0 [facility] Comment on above: Performed By: #### L IPASE, HCGQNT, HEPATIC, BMP, CBC #### [facility] [address] Calcium [Mass/Vol] 9.3 mg/dL Normal 8.6-10.3 [facility] Comment on above: Performed By: #### L IPASE, HCGQNT, HEPATIC, BMP, CBC #### [facility] [address] [place] [address] [place] Chloride [Moles/Vol] 101 mmol/L Normal 98-107 [facility] Comment on above: Performed By: #### L IPASE, HCGQNT, HEPATIC, BMP, CBC #### [facility] [address] [place] [address] [place] CO2 [Moles/Vol] 18.8 mmol/L Low 21.0-31.[address] [facility] Comment on above: Performed By: #### L IPASE, HCGQNT, HEPATIC, BMP, CBC #### [facility] [address] [place] [address] [place] Creatinine [Mass/Vol] 0.64 mg/dL Normal 0.60-1.20 [facility] Comment on above: Performed By: #### L IPASE, HCGQNT, HEPATIC, BMP, CBC #### [facility] [address] [place] [address] [place] Creatinine Clr Calc Pharmacy 148.58 Normal [facility] Comment on above: Performed By: #### L IPASE, HCGQNT, HEPATIC, BMP, CBC #### [facility] [address] [place] [address] [place] GFR/1.73 sq M.predicted MDRD (S/P/Bld) [Vol rate/Area] mL/min/{1.73_m2} Normal [facility] Comment on above: Performed By: #### L IPASE, HCGQNT, HEPATIC, BMP, CBC #### [facility] [address] Glucose [Mass/Vol] 83 mg/dL Normal 70-100 [facility] Comment on above: Result Comment: [place] Glucose Reference Range is dependent on time and content of last meal. Glucose of more than 200 mg/dL in a nonstressed, ambulatory subject supports the diagnosis of Diabetes Mellitus. ADA recommended reference range Performed By: #### L IPASE, HCGQNT, HEPATIC, BMP, CBC #### [facility] [address] [place] [address] Potassium [Moles/Vol] 3.3 mmol/L Low 3.5-5.1 [facility] Comment on above: Performed By: #### L IPASE, HCGQNT, HEPATIC, BMP, CBC #### [facility] [address] Sodium [Moles/Vol] 133 mmol/L Low 136-145 [facility] Comment on above: Performed By: #### L IPASE, HCGQNT, HEPATIC, BMP, CBC #### [address] Urea nitrogen [Mass/Vol] 6 mg/dL Low 7-25 [facility] Comment on above: Performed By: #### L IPASE, HCGQNT, HEPATIC, BMP, CBC #### [facility] [address] [place] [address] Basophils Auto (Bld) [#/Vol] Ordered By: Jacky Alarcon on 03-10-2023 Basophils (Bld) [#/Vol] 0.1 10*3/uL 0.0-0.2 [facility] Basophils/100 WBC Auto (Bld) Ordered By: Jacky Alarcon on 03-10-2023 Basophils/100 WBC (Bld) 0.4 % . [facility] Bilirubin Test strip Ql (U)O rdered By: Jacky Alarcon on 03-10-2023 Bilirubin Ql (U) Negative Negative [facility] Bilirubin.direct [Mass/volum e] in Serum or PlasmaOrdered By: Jacky Alarcon on 03-10-2023 Bilirubin.direct [Mass/Vol] 0.40 mg/dL 0.03-0.18 [facility] Bilirubin.total [Mass/volume ] in Serum or PlasmaOrdered By: Jacky Alarcon on 03-10-2023 Bilirubin [Mass/Vol] 1.2 mg/dL 0.3-1.0 [facility] Calcium [Mass/volume] in Ser um or PlasmaOrdered By: Jacky Alarcon on 03-10-2023 Calcium [Mass/Vol] 9.3 mg/dL 8.6-10.3 [facility] Carbon dioxide, total [Moles /volume] in Serum or PlasmaOrdered By: Jacky Alarcon on 03-10-2023 CO2 [Moles/Vol] 18.8 mmol/L 21.0-31.[address] [facility] Chloride [Moles/volume] in S rahul or PlasmaOrdered By: Jacky Alarcon on 03-10-2023 Chloride [Moles/Vol] 101 mmol/L 98-107 [facility] Choriogonadotropin.beta subu nit [Units/volume] in Serum or PlasmaOrdered By: Jacky Alarcon on 03-10-2023 [place] [address].00 m[IU]/mL [facility] Comment on above: Approximate Approxim ate hCG Gestational Age Range (mIU/ml) (weeks)0.2-1 5-50 1-2 50-500 2-3 100-5,000 3-4 500-10,000 4-5 1,000-50,000 5-6 10,000-100,000 6-8 15,000-200,000 8-12 10,000-100,000 Color Auto (U)Ordered By: Corinna Alarcon on 03-10-2023 Color (U) Dark yellow Yellow [facility] Complete Blood Count Auto Di ffon 03-10-2023 Basophils (Bld) [#/Vol] 0.1 10*3/uL Normal 0.0-0.2 [facility] Comment on above: Result Comment: PERF ORMED BY: [facility] [address] [place] [address] PATHOLOGIST PASTRY FINISHER ANDRÉS MACEDO M.D. Performed By: #### L IPASE, HCGQNT, HEPATIC, BMP, CBC #### [address] Basophils/100 WBC (Bld) 0.4 % Normal . [facility] Comment on above: Performed By: #### L IPASE, HCGQNT, HEPATIC, BMP, CBC #### [address] Eosinophils (Bld) [#/Vol] 0.1 10*3/uL Normal 0.0-0.45 [facility] Comment on above: Performed By: #### L IPASE, HCGQNT, HEPATIC, BMP, CBC #### [address] Eosinophils/100 WBC (Bld) 0.5 % Normal . [facility] Comment on above: Performed By: #### L IPASE, HCGQNT, HEPATIC, BMP, CBC #### [address] Erythrocyte distribution width (RBC) [Ratio] 13.3 % Normal 11.9-15.3 [facility] Comment on above: Performed By: #### L IPASE, HCGQNT, HEPATIC, BMP, CBC #### [address] Hematocrit (Bld) [Volume fraction] 47.2 % High 34.0-46.4 [facility] Comment on above: Performed By: #### L IPASE, HCGQNT, HEPATIC, BMP, CBC #### [address] Hemoglobin (Bld) [Mass/Vol] 16.5 g/dL High 11.8-15.4 [facility] Comment on above: Performed By: #### L IPASE, HCGQNT, HEPATIC, BMP, CBC #### [address] Lymphocytes (Bld) [#/Vol] 1.9 10*3/uL Normal 1.00-4.8 [facility] Comment on above: Performed By: #### L IPASE, HCGQNT, HEPATIC, BMP, CBC #### [address] Lymphocytes/100 WBC (Bld) 11.6 % Normal . [facility] Comment on above: Performed By: #### L IPASE, HCGQNT, HEPATIC, BMP, CBC #### [address] MCH (RBC) [Entitic mass] 30.8 pg Normal 24.7-34.3 [facility] Comment on above: Performed By: #### L IPASE, HCGQNT, HEPATIC, BMP, CBC #### [address] MCV (RBC) [Entitic vol] 87.8 fL Normal 80-100 [facility] Comment on above: Performed By: #### L IPASE, HCGQNT, HEPATIC, BMP, CBC #### [address] Mean Corpuscular HGB Conc 35.0 g/dL Normal 32.0-35.0 [facility] Comment on above: Performed By: #### L IPASE, HCGQNT, HEPATIC, BMP, CBC #### [address] Monocytes (Bld) [#/Vol] 1.4 10*3/uL High 0.0-0.8 [facility] Comment on above: Performed By: #### L IPASE, HCGQNT, HEPATIC, BMP, CBC #### [address] Monocytes/100 WBC (Bld) 16.05 % Normal 0.00-20.00 [facility] Comment on above: Performed By: #### L IPASE, HCGQNT, HEPATIC, BMP, CBC #### [address] Monocytes/100 WBC (Bld) 8.8 % Normal . [facility] Comment on above: Performed By: #### L IPASE, HCGQNT, HEPATIC, BMP, CBC #### [address] Neutrophils (Bld) [#/Vol] 12.6 10*3/uL High 1.8-7.7 [facility] Comment on above: Performed By: #### L IPASE, HCGQNT, HEPATIC, BMP, CBC #### [address] Neutrophils/100 WBC (Bld) 78.7 % Normal . [facility] Comment on above: Performed By: #### L IPASE, HCGQNT, HEPATIC, BMP, CBC #### [address] NRBC% 0.1 /100{WBC} Normal 0-0.5 [facility] Comment on above: Performed By: #### L IPASE, HCGQNT, HEPATIC, BMP, CBC #### [address] Platelet mean volume (Bld) [Entitic vol] 9.7 fL Normal 6.3-10.7 [facility] Comment on above: Performed By: #### L IPASE, HCGQNT, HEPATIC, BMP, CBC #### [place] [address] [place] Platelets (Bld) [#/Vol] 263 10*3/uL Normal 150-450 [facility] Comment on above: Performed By: #### L IPASE, HCGQNT, HEPATIC, BMP, CBC #### [place] [address] [place] RBC (Bld) [#/Vol] 5.37 10*6/uL High 3.60-5.00 [facility] Comment on above: Performed By: #### L IPASE, HCGQNT, HEPATIC, BMP, CBC #### [address] WBC (Bld) [#/Vol] 16.0 10*3/uL High 3.8-11.6 [facility] Comment on above: Performed By: #### L IPASE, HCGQNT, HEPATIC, BMP, CBC #### [facility] [address] [place] [address] [place] Creatinine [Mass/volume] in Serum or PlasmaOrdered By: Jacky Alarcon on 03-10-2023 Creatinine [Mass/Vol] 0.64 mg/dL 0.60-1.20 [facility] Dipstick and Microscopicon 1 05-11-2022 Appearance (U) Turbid Critically abnormal Clear [facility] Comment on above: Order Comment: Name Collection Type:: Clean-Voided Midstream Performed By: #### A DDONUAPLUS, CUU #### [place] [address] [place] Bacteria,Urine Rare High None Seen [facility] Comment on above: Order Comment: Name Collection Type:: Clean-Voided Midstream Performed By: #### A DDONUAPLUS, CUU #### [place] [address] [place] Bilirubin,Urine Negative Normal Negative [facility] Comment on above: Order Comment: Name Collection Type:: Clean-Voided Midstream Performed By: #### A DDONUAPLUS, CUU #### [place] [address] [place] Color (U) Dark Yellow Critically abnormal Yellow [facility] Comment on above: Order Comment: Name Collection Type:: Clean-Voided Midstream Performed By: #### A DDONUAPLUS, CUU #### [facility] [address] [place] [address] [place] Glucose Ql (U) Normal Normal Normal [facility] Comment on above: Order Comment: Name Collection Type:: Clean-Voided Midstream Performed By: #### A DDONUAPLUS, CUU #### [place] [address] [place] Hyaline Casts,Urine 9-19 High 0-8 [facility] Comment on above: Order Comment: Name Collection Type:: Clean-Voided Midstream Result Comment: PERF ORMED BY: [place] [id number] PATHOLOGIST PASTRY FINISHER ANDRÉS MACEDO M.D. Performed By: #### A DDONUAPLUS, CUU #### [address] Ketones Ql (U) 4+ High Negative [facility] Comment on above: Order Comment: Name Collection Type:: Clean-Voided Midstream Performed By: #### A DDONUAPLUS, CUU #### [address] Leukocyte esterase Test strip Ql (U) 1+ High Negative [facility] Comment on above: Order Comment: Name Collection Type:: Clean-Voided Midstream Performed By: #### A DDONUAPLUS, CUU #### [address] Nitrite,Urine Negative Normal Negative [facility] Comment on above: Order Comment: Name Collection Type:: Clean-Voided Midstream Performed By: #### A DDONUAPLUS, CUU #### [address] Occult Blood,Urine 3+ High Negative [facility] Comment on above: Order Comment: Name Collection Type:: Clean-Voided Midstream Result Comment: PERF ORMED BY: [place] [address] PATHOLOGIST PASTRY FINISHER ANDRÉS MACEDO M.D. Performed By: #### A DDONUAPLUS, CUU #### [address] Othe Crystals,Urine Normal [facility] Comment on above: Order Comment: Name Collection Type:: Clean-Voided Midstream Result Comment: sulf a crystals Performed By: #### A DDONUAPLUS, CUU #### [address] pH (U) 6.5 [pH] Normal 5.0-9.0 [facility] Comment on above: Order Comment: Name Collection Type:: Clean-Voided Midstream Performed By: #### A DDONUAPLUS, CUU #### [address] Protein (U) [Mass/Vol] 100 mg/dL High Negative [facility] Comment on above: Order Comment: Name Collection Type:: Clean-Voided Midstream Performed By: #### A DDONUAPLUS, CUU #### [address] RBC,Urine 50-100 High 0-4 [facility] Comment on above: Order Comment: Name Collection Type:: Clean-Voided Midstream Performed By: #### A DDONUAPLUS, CUU #### [address] Specificy Mayer,Urine 1.029 Normal 1.001-1.03 0 [facility] Comment on above: Order Comment: Name Collection Type:: Clean-Voided Midstream Performed By: #### A DDONUAPLUS, CUU #### [address] Squamous Epithelial Cell,Urine 1-2 Normal 0-2 [facility] Comment on above: Order Comment: Name Collection Type:: Clean-Voided Midstream Performed By: #### A DDONUAPLUS, CUU #### [address] Urobilinogen,Urine Normal Normal Normal [facility] Comment on above: Order Comment: Name Collection Type:: Clean-Voided Midstream Performed By: #### A DDONUAPLUS, CUU #### [address] WBC,Urine 5-9 High 0-4 [facility] Comment on above: Order Comment: Name Collection Type:: Clean-Voided Midstream Performed By: #### A DDONUAPLUS, CUU #### [address] Eosinophils Auto (Bld) [#/Vo l]Ordered By: Jacky Alarcon on 03-10-2023 Eosinophils (Bld) [#/Vol] 0.1 10*3/uL 0.0-0.45 [facility] Eosinophils/100 WBC Auto (Bl d)Ordered By: Jacky Alarcon on 03-10-2023 Eosinophils/100 WBC (Bld) 0.5 % . [facility] Erythrocyte distribution wid th Auto (RBC) [Ratio]Ordered By: Jacky Alarcon on 03-10-2023 Erythrocyte distribution width (RBC) [Ratio] 13.3 % 11.9-15.3 [facility] Globulin Calc (S) [Mass/Vol] Ordered By: Jacky Alarcon on 03-10-2023 Globulin (S) [Mass/Vol] 3.5 g/dL [facility] Glucose [Mass/volume] in Ser um or PlasmaOrdered By: Jacky Alarcon on 03-10-2023 Glucose [Mass/Vol] 83 mg/dL 70-100 [facility] Comment on above: ADA recommended refe rence rangeRandom Glucose Reference Range is dependent on time and content of last meal. Glucose of more than 200 mg/dL in a nonstressed, ambulatory subject supports the diagnosis of Diabetes Mellitus. HCG ( test) IA.rapi d Ql (U)Ordered By: Jacky Alarcon on 03-10-2023 HCG ( test) Ql (U) Positive [facility] HCG,Quantitativeon HCG,Quantitative 58047.00 m[iU]/mL Normal [facility] Comment on above: Result Comment: Appr oximate Approximate hCG Gestational Age Range (mIU/ml) (weeks) 0.2-1 5-50 1-2 50-500 2-3 100-5,000 3-4 500-10,000 4-5 1,000-50,000 5-6 10,000-100,000 6-8 15,000-200,000 8-12 10,000-100,000 PERFORMED BY: [place] [address] PATHOLOGIST PASTRY FINISHER ANDRÉS MACEDO M.D. Performed By: #### L IPASE, HCGQNT, HEPATIC, BMP, CBC #### [address] HCG,Urineon 03-10-2023 Beta HCG ( test) Ql (U) Positive High [facility] Comment on above: Result Comment: PERF ORMED BY: [place] [address] PATHOLOGIST PASTRY FINISHER ANDRÉS MACEDO M.D. Performed By: #### U HCG #### [facility] [address] [place] [address] Hematocrit Auto (Bld) [Volum e fraction]Ordered By: Jacky Alarcon on 03-10-2023 Hematocrit (Bld) [Volume fraction] 47.2 % 34.0-46.4 [facility] Hemoglobin [Mass/volume] in BloodOrdered By: Jacky Alarcon on 03-10-2023 Hemoglobin (Bld) [Mass/Vol] 16.5 g/dL 11.8-15.4 [facility] Hepatic Panelon 03-10-2023 Albumin [Mass/Vol] 4.5 g/dL Normal 3.5-5.7 [facility] Comment on above: Performed By: #### L IPASE, HCGQNT, HEPATIC, BMP, CBC #### [facility] [address] [place] [address] Albumin/Globulin [Mass ratio] 1.3 {ratio} Normal [facility] Comment on above: Performed By: #### L IPASE, HCGQNT, HEPATIC, BMP, CBC #### [facility] [address] [place] [address] [place] ALP [Catalytic activity/Vol] 71 U/L Normal 34-104 [facility] Comment on above: Performed By: #### L IPASE, HCGQNT, HEPATIC, BMP, CBC #### [facility] [address] [place] [address] [place] ALT [Catalytic activity/Vol] 36 U/L Normal 7-52 [facility] Comment on above: Performed By: #### L IPASE, HCGQNT, HEPATIC, BMP, CBC #### [facility] [address] [place] [address] [place] AST [Catalytic activity/Vol] 17 U/L Normal 13-39 [facility] Comment on above: Performed By: #### L IPASE, HCGQNT, HEPATIC, BMP, CBC #### [facility] [address] Bilirubin [Mass/Vol] 1.2 mg/dL High 0.3-1.0 [facility] Comment on above: Performed By: #### L IPASE, HCGQNT, HEPATIC, BMP, CBC #### [facility] [address] Bilirubin,Indirect 0.8 mg/dL Normal [facility] Comment on above: Performed By: #### L IPASE, HCGQNT, HEPATIC, BMP, CBC #### [facility] [address] Bilirubin.indirect [Mass/Vol] 0.40 mg/dL High 0.03-0.18 [facility] Comment on above: Performed By: #### L IPASE, HCGQNT, HEPATIC, BMP, CBC #### [facility] [address] Globulin (S) [Mass/Vol] 3.5 g/dL Normal [facility] Comment on above: Performed By: #### L IPASE, HCGQNT, HEPATIC, BMP, CBC #### [facility] [address] Protein [Mass/Vol] 8.0 g/dL Normal 6.4-8.9 [facility] Comment on above: Performed By: #### L IPASE, HCGQNT, HEPATIC, BMP, CBC #### [facility] [address] Ketones Auto test strip (U) [Mass/Vol]Ordered By: Jacky Alarcon on 03-10-2023 Ketones (U) [Mass/Vol] 4+ Negative [facility] - UrinalysisOrder ed By: Jacky Alarcon on 03-10-2023 Hyaline casts LM Ql (Urine sed) 9-19 [LPF] 0-8 [facility] Leukocytes [#/volume] correc anabell for nucleated erythrocytes in Blood by Automated counOrdered By: Jacky Alarcon on 03-10-2023 WBC corrected for nucl RBC Auto (Bld) [#/Vol] 16.0 10*3/uL 3.8-11.6 [facility] Lipaseon 03-10-2023 Lipase [Catalytic activity/Vol] 35.0 U/L Normal 11.0-82.0 [facility] Comment on above: Result Comment: PERF ORMED BY: [facility] [address] [place] [address] PATHOLOGIST PASTRY FINISHER ANDRÉS MACEDO M.D. Performed By: #### L IPASE, HCGQNT, HEPATIC, BMP, CBC #### [facility] [address] Lipase [Enzymatic activity/v olume] in Serum or PlasmaOrdered By: Jacky Alarcon on 03-10-2023 Lipase [Catalytic activity/Vol] 35.0 U/L 11.0-82.0 [facility] Lymphocytes Auto (Bld) [#/Vo l]Ordered By: Jacky Alarcon on 03-10-2023 Lymphocytes (Bld) [#/Vol] 1.9 10*3/uL 1.00-4.8 [facility] Lymphocytes/100 WBC Auto (Bl d)Ordered By: Jacky Alarcon on 03-10-2023 Lymphocytes/100 WBC (Bld) 11.6 % . [facility] MCH Auto (RBC) [Entitic mass ]Ordered By: Jacky Alarcon on 03-10-2023 MCH (RBC) [Entitic mass] 30.8 pg 24.7-34.3 [facility] MCHC Auto (RBC) [Mass/Vol]Or dered By: Jacky Alarcon on 03-10-2023 MCHC (RBC) [Mass/Vol] 35.0 g/dL 32.0-35.0 [facility] MCV Auto (RBC) [Entitic vol] Ordered By: Jacky Alarcon on 03-10-2023 MCV (RBC) [Entitic vol] 87.8 fL 80-100 [facility] Monocyte distribution width [Entitic volume] in Blood by AutomatedOrdered By: Jacky Alarcon on 03-10-2023 Monocyte distribution width Auto (Bld) [Entitic vol] 16.05 % 0.00-20.00 [facility] Monocytes Auto (Bld) [#/Vol] Ordered By: Jacky Alarcon on 03-10-2023 Monocytes (Bld) [#/Vol] 1.4 10*3/uL 0.0-0.8 [facility] Monocytes/100 WBC Auto (Bld) Ordered By: Jacky Alarcon on 03-10-2023 Monocytes/100 WBC (Bld) 8.8 % . [facility] Neutrophils Auto (Bld) [#/Vo l]Ordered By: Jacky Alarcon on 03-10-2023 Neutrophils (Bld) [#/Vol] 12.6 10*3/uL 1.8-7.7 [facility] Neutrophils/100 WBC Auto (Bl d)Ordered By: Jacky Alarcon on 03-10-2023 Neutrophils/100 WBC (Bld) 78.7 % . [facility] Nitrite Test strip Ql (U)Ord ered By: Jacky Alarcon on 03-10-2023 Nitrite Ql (U) Negative Negative [facility] No Panel InformationOrdered By: Jacky Alarcon on 03-10-2023 Estimated GFR (CKD-EPI) > 60.0 mL/Min [facility] Creatinine Clearance (Chem 148.58 [facility] Nucleated erythrocytes [Pres ence] in Blood by Automated countOrdered By: Jacky Alarcon on 03-10-2023 Nucleated RBC Auto Ql (Bld) 0.1 /100{WBC} 0-0.5 [facility] Platelet mean volume Auto (B ld) [Entitic vol]Ordered By: Jacky Alarcon on 03-10-2023 Platelet mean volume (Bld) [Entitic vol] 9.7 fL 6.3-10.7 [facility] Platelets Auto (Bld) [#/Vol] Ordered By: Jacky Alarcon on 03-10-2023 Platelets (Bld) [#/Vol] 263 10*3/uL 150-450 [facility] Potassium [Moles/volume] in Serum or PlasmaOrdered By: Jacky Alarcon on 03-10-2023 Potassium [Moles/Vol] 3.3 mmol/L 3.5-5.1 [facility] Protein Auto test strip (U) [Mass/Vol]Ordered By: Jacky Alarcon on 03-10-2023 Protein (U) [Mass/Vol] 100 mg/dL Negative Fi [facility] Protein [Mass/volume] in Ser um or PlasmaOrdered By: Jacky Alarcon on 03-10-2023 Protein [Mass/Vol] 8.0 g/dL 6.4-8.9 [facility] RBC Auto (Bld) [#/Vol]Ordere d By: Jacky Alarcon on 03-10-2023 RBC (Bld) [#/Vol] 5.37 10*6/uL 3.60-5.00 [facility] Serum or plasma albumin/glob ulin mass ratioOrdered By: Jacky Alarcon on 03-10-2023 Albumin/Globulin [Mass ratio] 1.3 {ratio} [facility] Serum or plasma anion gap de terminationOrdered By: Jacky Alarcon on 03-10-2023 Anion gap [Moles/Vol] 16.5 mmol/L 6.0-15.0 [facility] Serum or plasma non-glucuron idated bilirubin measurement (mass/volume)Ordered By: Jacky Alarcon on 03-10-2023 Bilirubin.indirect [Mass/Vol] 0.8 mg/dL [facility] Sodium [Moles/volume] in Ser um or PlasmaOrdered By: Jacky Alarcon on 03-10-2023 Sodium [Moles/Vol] 133 mmol/L 136-145 [facility] Specific gravity Auto test s trip (U) [Rel density]Ordered By: Jacky Alarcon on 03-10-2023 Specific gravity (U) [Rel density] 1.029 1.001-1.03 0 [facility] Squamous epithelial cells de tection in urine sediment by light microscopyOrdered By: Jacky Alarcon on 03-10-2023 Epithelial cells.squamous LM Ql (Urine sed) 1-2 [HPF] 0-2 [facility] Urea nitrogen [Mass/volume] in Serum or PlasmaOrdered By: Jacky Alarcon on 03-10-2023 Urea nitrogen [Mass/Vol] 6 mg/dL 7-25 [facility] Urine Cultureon 03-10-2023 Bacteria identified Cx Nom (U) >100,000 colonies/ml mixed bacterial skin contaminants 2 Days PERFORMED BY: [place] [address] [place] [address] PATHOLOGIST PASTRY FINISHER ANDRÉS MACEDO M.D. Normal [facility] Comment on above: Performed By: #### A DDONUAPLUS, CUU #### [facility] [address] Urine bacteria detection by automated methodOrdered By: Jacky Alarcon on 03-10-2023 Bacteria Auto Ql (U) Rare None Seen [facility] Urine clarity by refractomet ry automatedOrdered By: Jacky Alarcon on 03-10-2023 Clarity Refractometry automated (U) Turbid Clear [facility] Urine glucose measurement by automated test strip (mass/volume)Ordered By: Jacky Alarcon on 03-10-2023 Glucose Auto test strip (U) [Mass/Vol] Normal mg/dL Normal [facility] Urine hemoglobin detection b y automated test stripOrdered By: Jacky Alarcon on 03-10-2023 Hemoglobin Auto test strip Ql (U) 3+ Negative [facility] Urine leukocyte esterase det ection by automated test stripOrdered By: Jacky Alarcon on 03-10-2023 Leukocyte esterase Auto test strip Ql (U) 1+ Negative [facility] Urine sediment crystal ident ification by light microscopyOrdered By: Jacky Alarcon on 03-10-2023 Crystals LM Nom (Urine sed) See comment [facility] Comment on above: sulfa crystals Urobilinogen Auto test strip (U) [Mass/Vol]Ordered By: Jacky Alarcon on 03-10-2023 Urobilinogen (U) [Mass/Vol] Normal mg/dL Normal [facility] WBC Auto (Bld) [#/Vol]Ordere d By: Jacky Alarcon on 03-10-2023 WBC (Bld) [#/Vol] 16.0 10*3/uL 3.8-11.6 [facility] pH Auto test strip (U)Ordere d By: Jacky Alarcon on 03-10-2023 pH (U) 6.5 [pH] 5.0-9.0 [facility] CBC AUTO DIFFon 07-30-2022 BASO # 0.1 103/ul Normal 0.0-0.1 [facility] Comment on above: Performed By: #### G TT3P #### [facility] [address] [address] [address] Jackelyn Celestin Basophils/100 WBC (Bld) 0.6 % Normal 0.2-2.0 [facility] Comment on above: Performed By: #### G TT3P #### [facility] [address] [place] [address] Dr. Jackelyn Celestin EO # 0.2 103/ul Normal 0.0-0.7 [facility] Comment on above: Performed By: #### G TT3P #### [facility] [address] [place] [address] Dr. Jackelyn Celestin Eosinophils/100 WBC (Bld) 1.5 % Normal 0.9-7.0 [facility] Comment on above: Performed By: #### G TT3P #### [facility] [address] [place] [address] Dr. Jackelyn Celestin Erythrocyte distribution width (RBC) [Ratio] 14.5 % Normal 11.0-15.0 [facility] Comment on above: Performed By: #### G TT3P #### [facility] [address] [place] [address] Dr. Jackelyn Celestin Hematocrit (Bld) [Volume fraction] 33.9 % Critically low 36.0-48.0 [facility] Comment on above: Performed By: #### G TT3P #### [facility] [address] [place] [address] Dr. Jackelyn Celestin Hemoglobin (Bld) [Mass/Vol] 11.0 g/dL Critically low 12.0-16.0 [facility] Comment on above: Performed By: #### G TT3P #### [facility] [address] [place] [address] Dr. Jackelyn Celestin IG # 0.13 10e3/ul Critically high 0.00-0.03 [facility] Comment on above: Performed By: #### G TT3P #### [facility] [address] [place] [address] Dr. Jackelyn Celestin IG % 1.1 % Critically high 0.0-0.5 [facility] Comment on above: Performed By: #### G TT3P #### [facility] [address] [place] [address] Dr. Jackelyn Celestin LYMPH # 2.2 103/ul Normal 1.2-3.8 [facility] Comment on above: Performed By: #### G TT3P #### [facility] [address] [place] [address] Dr. Jackelyn Celestin Lymphocytes/100 WBC (Bld) 17.9 % Critically low 20.5-60.0 [facility] Comment on above: Performed By: #### G TT3P #### [facility] [address] [place] [address] Dr. Jackelyn Celestin MANUAL DIFF REQ NO Normal [facility] Comment on above: Performed By: #### G TT3P #### [facility] [address] [place] [address] Dr. Jackelyn Celestin MCH (RBC) [Entitic mass] 28.6 pg Normal 26.7-34.0 [facility] Comment on above: Performed By: #### G TT3P #### [facility] [address] [place] [address] Dr. Jackelyn Celestin MCHC (RBC) [Mass/Vol] 32.4 g/dL Normal 29.9-35.2 [facility] Comment on above: Performed By: #### G TT3P #### [facility] [address] [place] [address] Dr. Jackelyn Celestin MCV (RBC) [Entitic vol] 88.1 fL Normal 81.0-99.0 [facility] Comment on above: Performed By: #### G TT3P #### [facility] [address] [place] [address] Dr. Jackelyn eClestin MONO # 0.8 103/ul Normal 0.3-0.8 [facility] Comment on above: Performed By: #### G TT3P #### [facility] [address] [place] [address] Dr. Jackelyn Celestin Monocytes/100 WBC (Bld) 6.9 % Normal 1.7-12.0 [facility] Comment on above: Performed By: #### G TT3P #### [facility] [address] [place] [address] Dr. Jackelyn Celestin NEUT # 8.7 103/ul Critically high 1.4-6.5 [facility] Comment on above: Performed By: #### G TT3P #### [facility] [address] [place] [address] Dr. Jackelyn Celestin Neutrophils/100 WBC (Bld) 72.0 % Normal 43.0-75.0 [facility] Comment on above: Performed By: #### G TT3P #### [facility] [address] [place] [address] Dr. Jackelyn Celestin Platelet mean volume (Bld) [Entitic vol] 11.5 fL Normal 9.5-13.5 [facility] Comment on above: Performed By: #### G TT3P #### [facility] [address] [place] [address] Dr. Jackelyn Celestin PLT 146 103/ul Critically low 150-450 [facility] Comment on above: Performed By: #### G TT3P #### [facility] [address] [place] [address] Dr. Jackelyn Celestin RBC 3.85 106/ul Critically low 4.20-5.40 [facility] Comment on above: Performed By: #### G TT3P #### [facility] [address] [place] [address] Dr. Jackelyn Celestin WBC 12.1 103/ul Critically high 4.0-11.0 [facility] Comment on above: Performed By: #### G TT3P #### [facility] [address] [place] [address] Dr. Jackelyn Celestin CBC AUTO DIFFon 07-29-2022 BASO # 0.0 103/ul Normal 0.0-0.1 [facility] Comment on above: Performed By: #### [id number] #### [facility] [address] [place] [address] Dr. Jackelyn Celestin Basophils/100 WBC (Bld) 0.4 % Normal 0.2-2.0 [facility] Comment on above: Performed By: #### [id number] #### [facility] [address] [place] [address] Dr. Jackelyn Celestin EO # 0.2 103/ul Normal 0.0-0.7 [facility] Comment on above: Performed By: #### 4 [id number] #### [facility] [address] [place] [address] Dr. Jackelyn Celestin Eosinophils/100 WBC (Bld) 1.4 % Normal 0.9-7.0 [facility] Comment on above: Performed By: #### 4 [id number] #### [facility] [address] [place] [address] Dr. Jackelyn Celestin Erythrocyte distribution width (RBC) [Ratio] 14.1 % Normal 11.0-15.0 [facility] Comment on above: Performed By: #### 4 [id number] #### [facility] [address] [place] [address] Dr. Jackelyn Celestin Hematocrit (Bld) [Volume fraction] 36.0 % Normal 36.0-48.0 [facility] Comment on above: Performed By: #### 4 [id number] #### [facility] [address] [place] [address] Dr. Jackelyn Celestin Hemoglobin (Bld) [Mass/Vol] 12.2 g/dL Normal 12.0-16.0 [facility] Comment on above: Performed By: #### 4 [id number] #### [facility] [address] [place] [address] Dr. Jackelyn Celestin IG # 0.10 10e3/ul Critically high 0.00-0.03 [facility] Comment on above: Performed By: #### 4 [id number] #### [facility] [address] [place] [address] Dr. Jackelyn Celestin IG % 0.9 % Critically high 0.0-0.5 [facility] Comment on above: Performed By: #### 4 [id number] #### [facility] [address] [place] [address] Dr. Jackelyn Celestin LYMPH # 1.9 103/ul Normal 1.2-3.8 [facility] Comment on above: Performed By: #### 4 [id number] #### [facility] [address] [place] [address] Dr. Jackelyn Celestin Lymphocytes/100 WBC (Bld) 17.7 % Critically low 20.5-60.0 [facility] Comment on above: Performed By: #### 4 [id number] #### [facility] [address] [place] [address] Dr. Jackelyn Celestin MANUAL DIFF REQ NO Normal [facility] Comment on above: Performed By: #### 4 [id number] #### [facility] [address] [place] [address] Dr. Jackelyn Celestin MCH (RBC) [Entitic mass] 28.8 pg Normal 26.7-34.0 [facility] Comment on above: Performed By: #### 4 [id number] #### [facility] [address] [place] [address] Dr. Jackelyn Celestin MCHC (RBC) [Mass/Vol] 33.9 g/dL Normal 29.9-35.2 [facility] Comment on above: Performed By: #### 4 [id number] #### [facility] [address] [place] [address] Dr. Jackelyn Celestin MCV (RBC) [Entitic vol] 84.9 fL Normal 81.0-99.0 [facility] Comment on above: Performed By: #### 4 [id number] #### [facility] [address] [place] [address] Dr. Jackelyn Celestin MONO # 0.9 103/ul Critically high 0.3-0.8 [facility] Comment on above: Performed By: #### 4 [id number] #### [facility] [address] [place] [address] Dr. Jackelyn Celestin Monocytes/100 WBC (Bld) 8.4 % Normal 1.7-12.0 [facility] Comment on above: Performed By: #### 4 [id number] #### [facility] [address] [place] [address] Dr. Jackelyn Celestin NEUT # 7.7 103/ul Critically high 1.4-6.5 [facility] Comment on above: Performed By: #### 4 [id number] #### [facility] [address] [place] [address] Dr. Jackelyn Celestin Neutrophils/100 WBC (Bld) 71.2 % Normal 43.0-75.0 [facility] Comment on above: Performed By: #### 4 [id number] #### [facility] [address] [place] [address] Dr. Jackelyn Celestin Platelet mean volume (Bld) [Entitic vol] 10.9 fL Normal 9.5-13.5 [facility] Comment on above: Performed By: #### 4 [id number] #### [facility] [address] [place] [address] Dr. Jackelyn Celestin PLT 170 103/ul Normal 150-450 [facility] Comment on above: Performed By: #### 4 [id number] #### [facility] [address] [place] [address] Dr. Jackelyn Celestin RBC 4.24 106/ul Normal 4.20-5.40 [facility] Comment on above: Performed By: #### 4 [id number] #### [facility] [address] [place] [address] Dr. Jackelyn Celestin WBC 10.8 103/ul Normal 4.0-11.0 [facility] Comment on above: Performed By: #### 4 [id number] #### [facility] [address] [place] [address] Dr. Jackelyn Celestin DRUG SCREEN RAPID (URINE)on 07-29-2022 AMP Negative Normal NEGATIVE [facility] Comment on above: Performed By: #### 4 [id number] #### [facility] [address] [place] [address] Dr. Jackelyn Celestin BAR Negative Normal NEGATIVE [facility] Comment on above: Performed By: #### 4 [id number] #### [facility] [address] [place] [address] Dr. Jackelyn Celestin BUP Negative Normal NEGATIVE [facility] Comment on above: Performed By: #### 4 [id number] #### [facility] [address] [place] [address] Dr. Jackelyn Celestin BZO Negative Normal NEGATIVE [facility] Comment on above: Performed By: #### 4 [id number] #### [facility] [address] [place] [address] Dr. Jackelyn Celestin HOMERO Negative Normal NEGATIVE [facility] Comment on above: Performed By: #### 4 [id number] #### [facility] [address] [place] [address] Dr. Jackelyn Celestin CUT-OFFS SEE BELOW Normal [facility] Comment on above: Result Comment: AMP (Amphetamine): 500ng/mL, BAR (Barbituates): 200 ng/mL, BZO (Benzodiazepines): 150 ng/mL, BUP (Buprenorphine): 10 ng/mL, HOMERO (Cocaine): 150 ng/mL, mAMP (Methamphetamine): 500 ng/mL, MTD (Methadone): 200 ng/mL, OPI (Opiates): 100 ng/mL, OXY (Oxycodone): 100 ng/mL, PCP (Phencyclidine): 25 ng/mL, PPX (Propoxyphene): 300 ng/mL, THC (Cannabinoids): 50 ng/mL, TCA (Trycyclic Antidepressants): 300 ng/mL Performed By: #### 4 [id number] #### [facility] [address] [place] [address] Dr. Jackelyn Celestin DRUG CUT HEADER DRUG CLASS TEST SYST EM CUT-OFF CONCENTRATIONS ARE FOLLOWS: Normal [facility] Comment on above: Performed By: #### [id number] #### [facility] [address] [place] [address] Dr. Jackelyn Celestin mAMP Negative Normal NEGATIVE [facility] Comment on above: Performed By: #### 4 [id number] #### [facility] [address] [place] [address] Dr. Jackelyn Celestin MTD Negative Normal NEGATIVE [facility] Comment on above: Performed By: #### 4 [id number] #### [facility] [address] [place] [address] Dr. Jackelyn Celestin OPI Negative Normal NEGATIVE [facility] Comment on above: Performed By: #### 4 [id number] #### [facility] [address] [place] [address] Dr. Jackelyn Celestin OXY Negative Normal NEGATIVE [facility] Comment on above: Performed By: #### 4 [id number] #### [facility] [address] [place] [address] Dr. Jackelyn Celestin PCP Negative Normal NEGATIVE [facility] Comment on above: Performed By: #### 4 [id number] #### [facility] [address] [place] [address] Dr. Jackelyn Celestin PPX Negative Normal NEGATIVE [facility] Comment on above: Performed By: #### 4 [id number] #### [facility] [address] [place] [address] Dr. Jackelyn Celestin TCA Negative Normal NEGATIVE [facility] Comment on above: Performed By: #### 4 [id number] #### [facility] [address] [place] [address] Dr. Jackelyn Celestin THC Negative Normal NEGATIVE [facility] Comment on above: Performed By: #### 4 [id number] #### [facility] [address] [place] [address] Dr. Jackelyn Celestin TYPE AND SCREENon 07-29-2022 TYPE AND SCREEN Negative Normal [facility] Comment on above: Performed By: #### G TT3P #### [facility] [address] [place] [address] Dr. Jackelyn Celestin US PREG GROWTHon 07-25-2022 [...] TRISTAN HART Date: 2022-07-24 22:37 Normal [facility] GROUP B STREP CULTUREon 06-09 S. agalactiae Ag Ql (Unsp spec) Culture Observations: NEGATIVE FOR GROUP B STREPTOCOCCUS. Normal [facility] Comment on above: Performed By: #### G TT3P #### [facility] [address] [place] [place] [address] Dr. Jackelyn Celestin US PREG GROWTHon 06-06-2022 [...] TRISTAN HART Date: 2022-06-06 15:39 Normal [facility] GTT 3 HR PREGon 05-21-2022 Glucose [Mass/Vol] 91 mg/dL Normal 74-106 [facility] Comment on above: Performed By: #### G TT3P #### [facility] [address] [place] [address] Dr. Jackelyn Celestin Glucose [Mass/Vol] 168 mg/dL Normal [facility] Comment on above: Performed By: #### G TT3P #### [facility] [address] [place] [address] Dr. Jackelyn Celestin Glucose [Mass/Vol] 121 mg/dL [facility] [place] [facility] Comment on above: Performed By: #### G TT3P #### [facility] [address] [place] [address] Dr. Jackelyn Celestin Glucose [Mass/Vol] 86 mg/dL [facility] [place] [facility] Comment on above: Performed By: #### G TT3P #### [facility] [address] [place] [address] Dr. Jackelyn Celestin PAP ACOG PANEL 2: 21 to 29on 05-17-2022 . . Normal [facility] Comment on above: Performed By: #### 4 [id number] #### [facility] [address] [place] [address] Dr. Jackelyn Celestin DIAGNOSIS: Comment [facility] [place] [facility] Comment on above: Result Comment: NEGA TIVE FOR INTRAEPITHELIAL LESION OR MALIGNANCY. Performed By: #### 4 [id number] #### [facility] [address] [place] [address] Dr. Jackelyn Celestin Methodology: Comment [facility] [place] [facility] Comment on above: Result Comment: This liquid based ThinPrep(R) pap test was screened with the use of an image guided system. Performed By: #### 4 [id number] #### [facility] [address] [place] [address] Dr. Jackelyn Celestin Note: Comment [facility] [place] [facility] Comment on above: Result Comment: The Pap smear is a screening test designed to aid in the detection of premalignant and malignant conditions of the uterine cervix. It is not a diagnostic procedure and should not be used as the sole means of detecting cervical cancer. Both false-positive and false-negative reports do occur. . Performed By: #### 4 [id number] #### [facility] [address] [place] [address] Dr. Jackelyn Celestin Performed by: Comment [facility] [place] [facility] Comment on above: Result Comment: Alphonso Walker, Gsa Coordinator (ASCP) Performed By: #### 4 [id number] #### [facility] [address] [place] [address] Dr. Jackelyn Celestin Reflex Criteria: Comment Normal [facility] Comment on above: Result Comment: The HPV DNA reflex criteria were not met with this specimen result therefore, no HPV testing was performed. . Performed By: #### 4 [id number] #### [facility] [address] [place] [address] Dr. Jackelyn Celestin Specimen adequacy: Comment Normal [facility] Comment on above: Result Comment: Sati sfactory for evaluation. No endocervical component is identified. Performed By: #### 4 [id number] #### [facility] [address] [place] [address] Dr. Jackelyn Celestin Age Gdln ACOG Testing 21-29 Normal [facility] Comment on above: Performed By: #### 4 [id number] #### [facility] [address] [place] [address] Dr. Jackelyn Celestin CHLAMYDIA/GONOCOCCUS ALONDRA (SW AB/URINE/PAPon 05-14-2022 Chlamydia trachomatis, ALONDRA Negative Normal Negative [facility] Comment on above: Performed By: #### G TT3P #### [facility] [address] [place] [address] Dr. Jackelyn Celestin Neisseria gonorrhoeae, ALONDRA Negative Normal Negative [facility] Comment on above: Performed By: #### G TT3P #### [facility] [address] [place] [address] Dr. Jackelyn Celestin VAGINITIS/VAGINOSIS DNA PROB Dean 05-13-2022 Thao species Negative Normal Negative [facility] Comment on above: Performed By: #### 4 [id number] #### [facility] [address] [place] [address] Dr. Jackelyn Celestin Gardnerella vaginalis Negative Normal Negative [facility] Comment on above: Performed By: #### 4 [id number] #### [facility] [address] [place] [address] Dr. Jackelyn Cleestin Trichomonas vaginalis Negative Normal Negative [facility] Comment on above: Performed By: #### 4 [id number] #### [facility] [address] [place] [address] Dr. Jackelyn Celestin CBC AUTO DIFFon 05-09-2022 BASO # 0.0 103/ul Normal 0.0-0.1 [facility] Comment on above: Performed By: #### C BC #### [facility] [address] [place] [address] Dr. Jackelyn Celestin Basophils/100 WBC (Bld) 0.3 % Normal 0.2-2.0 [facility] Comment on above: Performed By: #### C BC #### [facility] [address] [place] [address] Dr. Jackelyn Celestin EO # 0.1 103/ul Normal 0.0-0.7 [facility] Comment on above: Performed By: #### C BC #### [facility] [address] [place] [address] Dr. Jackelyn Celestin Eosinophils/100 WBC (Bld) 1.2 % Normal 0.9-7.0 [facility] Comment on above: Performed By: #### C BC #### [facility] [address] [place] [address] Dr. Jackelyn Celestin Erythrocyte distribution width (RBC) [Ratio] 11.9 % Normal 11.0-15.0 [facility] Comment on above: Performed By: #### C BC #### [facility] [address] [place] [address] Dr. Jackelyn Celestin Hematocrit (Bld) [Volume fraction] 33.7 % Critically low 36.0-48.0 [facility] Comment on above: Performed By: #### C BC #### [facility] [address] [place] [address] Dr. Jackelyn Celestin Hemoglobin (Bld) [Mass/Vol] 12.0 g/dL Normal 12.0-16.0 [facility] Comment on above: Performed By: #### C BC #### [facility] [address] [place] [address] Dr. Jackelyn Celestin IG # 0.07 10e3/ul Critically high 0.00-0.03 [facility] Comment on above: Performed By: #### C BC #### [facility] [address] [place] [address] Dr. Jackelyn Celestin IG % 0.6 % Critically high 0.0-0.5 [facility] Comment on above: Performed By: #### C BC #### [facility] [address] [place] [address] Dr. Jackelyn Celestin LYMPH # 1.3 103/ul Normal 1.2-3.8 [facility] Comment on above: Performed By: #### C BC #### [facility] [address] [place] [address] Dr. Jackelyn Celestin Lymphocytes/100 WBC (Bld) 11.5 % Critically low 20.5-60.0 [facility] Comment on above: Performed By: #### C BC #### [facility] [address] [place] [address] Dr. Jackelyn Celestin MANUAL DIFF REQ NO Normal [facility] Comment on above: Performed By: #### C BC #### [facility] [address] [place] [address] Dr. Jackelyn Celestin MCH (RBC) [Entitic mass] 31.0 pg Normal 26.7-34.0 [facility] Comment on above: Performed By: #### C BC #### [facility] [address] [place] [address] Dr. Jackelyn Celestin MCHC (RBC) [Mass/Vol] 35.6 g/dL Critically high 29.9-35.2 [facility] Comment on above: Performed By: #### C BC #### [facility] [address] [place] [address] Dr. Jackelyn Celestin MCV (RBC) [Entitic vol] 87.1 fL Normal 81.0-99.0 [facility] Comment on above: Performed By: #### C BC #### [facility] [address] [place] [address] Dr. Jackelyn Celestin MONO # 0.5 103/ul Normal 0.3-0.8 [facility] Comment on above: Performed By: #### C BC #### [facility] [address] [place] [address] Dr. Jackelyn Celestin Monocytes/100 WBC (Bld) 4.8 % Normal 1.7-12.0 [facility] Comment on above: Performed By: #### C BC #### [facility] [address] [place] [address] Dr. Jackelyn Celestin NEUT # 8.9 103/ul Critically high 1.4-6.5 [facility] Comment on above: Performed By: #### C BC #### [facility] [address] [place] [address] Dr. Jackelyn Celestin Neutrophils/100 WBC (Bld) 81.6 % Critically high 43.0-75.0 [facility] Comment on above: Performed By: #### C BC #### [facility] [address] [place] [address] Dr. Jackelyn Celestin Platelet mean volume (Bld) [Entitic vol] 11.3 fL Normal 9.5-13.5 [facility] Comment on above: Performed By: #### C BC #### [facility] [address] [place] [address] Dr. Jackelyn Celestin PLT 171 103/ul Normal 150-450 [facility] Comment on above: Performed By: #### C BC #### [facility] [address] [place] [address] Dr. Jackelyn Celestin RBC 3.87 106/ul Critically low 4.20-5.40 [facility] Comment on above: Performed By: #### C BC #### [facility] [address] [place] [address] Dr. Jackelyn Celestin WBC 10.9 103/ul Normal 4.0-11.0 [facility] Comment on above: Performed By: #### C BC #### [facility] [address] [place] [address] Dr. Jackelyn Celestin GLUCOSE - 1HRon 05-09-2022 Glucose [Mass/Vol] 142 mg/dL Critically high 74-106 [facility] Comment on above: Performed By: #### 4 [id number] #### [facility] [address] [place] [address] Dr. Jackelyn Celestin US PREG BIOPHY W [...] by: TRISTAN HART Date: 2022-05-09 10:35 Normal [facility] US PREG PLACENTAon 3 US PREG PLACENTA EXAMINATION: US PREG PLACENTA HISTORY: Falls ; mild cramping after falling COMPARISON: Ultrasound anatomy 03/17/2022 FINDINGS: PLACENTA: Posterior without previa, subchorionic hematoma, or abruption. CERVIX LENGTH: Not evaluated. HEART RATE: 158 bpm OTHER: None. IMPRESSION: 1. Unremarkable posterior placenta. No suspicious findings. Electronically authenticated by: TRISTAN HART Date: 2022-05-09 10:29 Normal [facility] US PREG ANATOMY SINGLEon US [...] TRISTAN HART Date: 2022-03-17 16:29 Normal [facility] HEP B SURFACE ANTIGEN SCREEN on 02-15-2022 HBsAg Screen Negative Normal Negative [facility] Comment on above: Performed By: #### 4 [id number] #### [facility] [address] [address] [address] Jackelyn Celestin HEPATITIS C VIRUS AB W/ REFL EX QUANTon 02-15-2022 HCV AB <0.1 Normal 0.0-0.9 [facility] Comment on above: Performed By: #### H CVPCRR #### [facility] [address] [place] [address] Dr. Jackelyn Celestin Interpretation: Comment Normal [facility] Comment on above: Result Comment: Nega tive Not infected with HCV, unless recent infection is suspected or other evidence exists to indicate HCV infection. Performed By: #### H CVPCRR #### [facility] [address] [address] [address] Jackelyn Celestin HIV 1 AND 2 WITH REFLEXon HIV Screen 4th Generation wRfx Non-Reactive Normal Non Reactive [facility] Comment on above: Result Comment: HIV Negative HIV-1/HIV-2 antibodies and HIV-1 p24 antigen were NOT detected. There is no laboratory evidence of HIV infection. Performed By: #### H IV12 #### [facility] [address] [place] [address] Dr. Jackelyn Celestin RPR QUANTon 02-15-2022 Rapid Plasma Reagin, Quant Non-Reactive Normal NonRea<1:1 [facility] Comment on above: Result Comment: Plea se Note: This test does not meet current guidelines for screening and diagnosis of syphilis. This test is intended for following treatment response in patients being treated for syphilis infection. To screen for syphilis infection, a reflex cascade that includes both RPR and a treponema-specific assay should be utilized, such as Treponema pallidum (Syphilis) Screening [place] (266815) or Rapid Plasma Reagin (RPR) Test With Reflex to Quantitative RPR and Confirmatory Treponema pallidum Antibodies (686957). Performed By: #### R PRQ #### [facility] [address] [place] [address] Dr. Jackelyn Celestin RUBELLA AB IGGon 02-15-2022 Rubella Antibodies, IgG 1.97 index Normal Immune >0.99 [facility] Comment on above: Result Comment: Non- immune <0.90 Equivocal 0.90 - 0.99 Immune >0.99 Performed By: #### R UBIGG #### [facility] [address] [place] [address] Dr. Jackelyn Celestin CBC AUTO DIFFon 02-12-2022 BASO # 0.0 103/ul Normal 0.0-0.1 [facility] Comment on above: Performed By: #### C BC #### [facility] [address] [place] [address] Dr. Jackelyn Celestin Basophils/100 WBC (Bld) 0.4 % Normal 0.2-2.0 [facility] Comment on above: Performed By: #### C BC #### [facility] [address] [place] [address] Dr. Jackelyn Celestin EO # 0.2 103/ul Normal 0.0-0.7 [facility] Comment on above: Performed By: #### C BC #### [facility] [address] [place] [address] Dr. Jackelyn Celestin Eosinophils/100 WBC (Bld) 2.0 % Normal 0.9-7.0 [facility] Comment on above: Performed By: #### C BC #### [facility] [address] [place] [address] Dr. Jackelyn Celestin Erythrocyte distribution width (RBC) [Ratio] 12.8 % Normal 11.0-15.0 [facility] Comment on above: Performed By: #### C BC #### [facility] [address] [place] [address] Dr. Jackelyn Celestin Hematocrit (Bld) [Volume fraction] 40.7 % Normal 36.0-48.0 [facility] Comment on above: Performed By: #### C BC #### [facility] [address] [place] [address] Dr. Jackelyn Celestin Hemoglobin (Bld) [Mass/Vol] 14.4 g/dL Normal 12.0-16.0 [facility] Comment on above: Performed By: #### C BC #### [facility] [address] [place] [address] Dr. Jackelyn Celestin IG # 0.05 10e3/ul Critically high 0.00-0.03 [facility] Comment on above: Performed By: #### C BC #### [facility] [address] [place] [address] Dr. Jackelyn Celestin IG % 0.4 % Normal 0.0-0.5 [facility] Comment on above: Performed By: #### C BC #### [facility] [address] [place] [address] Dr. Jackelyn Celestin LYMPH # 1.7 103/ul Normal 1.2-3.8 [facility] Comment on above: Performed By: #### C BC #### [facility] [address] [place] [address] Dr. Jackelyn Celestin Lymphocytes/100 WBC (Bld) 15.1 % Critically low 20.5-60.0 [facility] Comment on above: Performed By: #### C BC #### [facility] [address] [place] [address] Dr. Jackelyn Celestin MANUAL DIFF REQ NO Normal [facility] Comment on above: Performed By: #### C BC #### [facility] [address] [place] [address] Dr. Jackelyn Celestin MCH (RBC) [Entitic mass] 31.2 pg Normal 26.7-34.0 [facility] Comment on above: Performed By: #### C BC #### [facility] [address] [place] [address] Dr. Jackelyn Celestin MCHC (RBC) [Mass/Vol] 35.4 g/dL Critically high 29.9-35.2 [facility] Comment on above: Performed By: #### C BC #### [facility] [address] [place] [address] Dr. Jackelyn Celestin MCV (RBC) [Entitic vol] 88.1 fL Normal 81.0-99.0 [facility] Comment on above: Performed By: #### C BC #### [facility] [address] [place] [address] Dr. Jackelyn Celestin MONO # 0.4 103/ul Normal 0.3-0.8 [facility] Comment on above: Performed By: #### C BC #### [facility] [address] [place] [address] Dr. Jackelyn Celestin Monocytes/100 WBC (Bld) 3.3 % Normal 1.7-12.0 [facility] Comment on above: Performed By: #### C BC #### [facility] [address] [place] [address] Dr. Jackelyn Celestin NEUT # 8.8 103/ul Critically high 1.4-6.5 [facility] Comment on above: Performed By: #### C BC #### [facility] [address] [place] [address] Dr. Jackelyn Celestin Neutrophils/100 WBC (Bld) 78.8 % Critically high 43.0-75.0 [facility] Comment on above: Performed By: #### C BC #### [facility] [address] [place] [address] Dr. Jackelyn Celestin Platelet mean volume (Bld) [Entitic vol] 11.6 fL Normal 9.5-13.5 [facility] Comment on above: Performed By: #### C BC #### [facility] [address] [place] [address] Dr. Jackelyn Celestin PLT 203 103/ul Normal 150-450 [facility] Comment on above: Performed By: #### C BC #### [facility] [address] [place] [address] Dr. Jackelyn Celestin RBC 4.62 106/ul Normal 4.20-5.40 [facility] Comment on above: Performed By: #### C BC #### [facility] [address] [place] [address] Dr. Jackelyn Celestin WBC 11.2 103/ul Critically high 4.0-11.0 [facility] Comment on above: Performed By: #### C BC #### [facility] [address] [place] [address] Dr. Jackelyn Celestin CULTURE URINEon 02-12-2022 CULTURE URINE Culture Observations : NO GROWTH. Normal [facility] Comment on above: Performed By: #### U RCX #### [facility] [address] [place] [address] Dr. Jackelyn Celestin GLYCOHEMOGLOBIN A1Con 2021 ADA RECOMMENDATION SEE BELOW Normal [facility] Comment on above: Result Comment: ADA RECOMMENDED LIMIT 4.0 - 6.0 ADA THERAPEUTIC TARGET < 7.0 ACTION SUGGESTED > 7.0 Performed By: #### 4 [id number] #### [facility] [address] [place] [address] Dr. Jackelyn Celestin Glucose [Mass/Vol] 94 mg/dL Normal [facility] Comment on above: Performed By: #### 4 [id number] #### [facility] [address] [place] [address] Dr. Jackelyn Celestin HbA1c (Bld) [Mass fraction] 4.9 % Normal 4.5-6.2 [facility] Comment on above: Performed By: #### 4 [id number] #### [facility] [address] [place] [address] Dr. Jackelyn Celestin TYPE AND SCREENon 02-12-2022 TYPE AND SCREEN Negative Normal [facility] Comment on above: Performed By: #### T NS #### [facility] [address] [place] [address] Dr. Jackelyn Celestin US PREG TVon 01-21-2022 [...] by: DONALD AGUILAR Date: 2022-01-21 16:41 Normal [facility] Coding Summary.on 12-12-2019 Coding Summary. CODING DATE: 020 FINAL [facility] STATUS: Home (Routine DC) PAYOR: Self [...] CphT Date Saved: 12/12/2019 10:59 am Normal [facility] Family Medicine Office/Clini c Noteon 11-21-2019 Family [...] day(s), # 20 tab(s), Refills(s) 0, Pharmacy: [facility], 159, cm, 11/21/19 19:13:00 EDT, Height/Length Dosing, 96, kg, 11/21/19 19:13:00 EDT, Weight Dosing Follow-up No qualifying data available Patient Education Body Mass Index, BMI DASH Diet MyPlate from [employer] Obesity Otitis Media, Adult Problem List/Past Medical [...] cancer: Grandparent. Hypertension: Grandparent. Stroke: Grandparent. Normal [facility] Comment on above: Result Comment: Elec tronically [...] Document Reviewed: 01/04/2006 ExitCare? Patient Information ?2014 [employer]. DASH Diet The DASH diet stands for [...] beef, chicken breast, turkey breast. All fish. [place], bake, or broil your meat. Nothing should [...] Document Reviewed: 03/15/2012 ExitCare? Patient Information ?2013 [employer]. [employer], [employer] The amount you need to eat from [...] Document Reviewed: 06/16/2008 ExitCare? Patient Information ?2013 [employer] [facility]. Family Medicine Obesity Obesity is defined [...] Document Reviewed: 05/02/2012 ExitCare? Patient Information ?2014 [employer]. Otitis Media, Adult A middle ear infection [...] the first few days. ? Only take [id number] or prescription medicines for pain, discomfort, or [...] Document Reviewed: 10/31/2008 ExitCare? Patient Information ?2013 [employer] [facility]. Normal [facility] SARS-CoV-2, NAAon 11-20-2019 SARS CORONAVIRUS 2 RNA:PRTHR:PT:RESPIRATO RY:ORD:PROBE.AMP.TAR Not Detected Not Detected [facility] Comment on above: Result Comment: This test was developed and its performance characteristics determined by [employer]. This test has not been FDA cleared [...] result in this assay. Performed at: [facility] [address] [facility] [place] [id number] MD Malaika Velez Performed By: #### S ARS-CoV-2, ALONDRA #### [facility] [address] [place] [address] [facility] Video Visit - Telehealthon 11-16-2019 [facility] Video Visit - Telehealth Chief Complaint [...] interactive video communications from my office using [employer] due to the restrictions of the COVID-19 pandemic. No physical exam was conducted other than those areas of the body visible to telecommunications with the patient located at [address] [phone], with no one else in attendance. If [...] cancer: Grandparent. Hypertension: Grandparent. Stroke: Grandparent. Normal [facility] Comment on above: Result Comment: Elec tronically Signed By: Abbey ESTRADA CNP\.ynes\Date and Time Signed: 11/16/19 14:27 EDT URINE CULTUREon 07-10-2017 Urine culture, bacteria SPECIMEN DESCRIPTION URINE CLEAN CATCHUA DIPSTICK NITRITE NEGATIVE * Result Note: LEUKOCYTE NEGATIVE *CULTURE ESCHERICHIA COLI * Result Note: 50,000 C/C/ML * * Result Note: Testing performed at [facility], [place], [place] [address] *REPORT STATUS 07/10/2017 * Result Note: FINAL [...] By: #### A URNC ####Testing performed at [address] [id number] performed at [address] [address] BHCG,QUANTITATIVEon 07-08-19 18 BHCG,QUANTITATIVE 133.56 MIU/ML Normal [facility] Comment on above: Result Comment: [facility] INTERPRETIVE RANGES: NON FEMALE 0-6 MIU/MLMALE ADULT [...] #### A CBC, BHCG2 ####Testing performed at [address] [address] [address] CBCon 07-07-2017 ABSOLUTE BAS 0.1 X10 Normal [facility] Comment on above: Performed By: #### A CBC, BHCG2 ####Testing performed at [address] [place] [address] ABSOLUTE EOS 0.20 X10 Normal [facility] Comment on above: Performed By: #### A CBC, BHCG2 ####Testing performed at [address] [place] [address] Basophils/100 WBC Auto (Bld) 0.6 % Normal 0.0-2.0 [facility] Comment on above: Performed By: #### A CBC, BHCG2 ####Testing performed at [address] [place] [address] DTYPE AUTO DIFF Normal [facility] Comment on above: Performed By: #### A CBC, BHCG2 ####Testing performed at [address] [place] [address] Eosinophils/100 leukocytes 2.0 % Normal 0.0-11.0 [facility] Comment on above: Performed By: #### A CBC, BHCG2 ####Testing performed at [address] [place] [address] Lymphocytes 2.00 X10 Normal [facility] Comment on above: Performed By: #### A CBC, BHCG2 ####Testing performed at [address] [place] [address] Lymphocytes/100 leukocytes 23.0 % Normal 20.0-55.0 [facility] Comment on above: Performed By: #### A CBC, BHCG2 ####Testing performed at [address] [place] [address] Monocytes 0.6 X10 Normal [facility] Comment on above: Performed By: #### A CBC, BHCG2 ####Testing performed at [address] [address] Monocytes/100 leukocytes 7.1 % Normal 0.0-10.0 [facility] Comment on above: Performed By: #### A CBC, BHCG2 ####Testing performed at [address] [place] [address] Neutrophils 5.9 x10 Normal 1.0-7.0 [facility] Comment on above: Performed By: #### A CBC, BHCG2 ####Testing performed at [address] [address] Neutrophils/100 leukocytes 67.3 % Normal 37.0-75.0 [facility] Comment on above: Performed By: #### A CBC, BHCG2 ####Testing performed at [address] [address] Erythrocyte distribution width Auto Ratio (RBC) 12.1 % Normal 11.5-14.5 [facility] Comment on above: Performed By: #### A CBC, BHCG2 ####Testing performed at [address] [address] Erythrocytes (RBC) 4.72 /cmm Normal 4.0-5.4 [facility] Comment on above: Performed By: #### A CBC, BHCG2 ####Testing performed at [address] [address] Hematocrit (HCT) 43.2 % Normal 36.0-48.0 [facility] Comment on above: Performed By: #### A CBC, BHCG2 ####Testing performed at [address] [address] Hemoglobin mass conc (Bld) 15.1 g/dL Normal 12.0-16.0 [facility] Comment on above: Performed By: #### A CBC, BHCG2 ####Testing performed at [address] [address] MCH 32.0 pg Normal 26.0-35.0 [facility] Comment on above: Performed By: #### A CBC, BHCG2 ####Testing performed at [address] [address] MCHC mass conc (RBC) 35.0 g/dL Normal 27.0-37.0 [facility] Comment on above: Performed By: #### A CBC, BHCG2 ####Testing performed at [address] [address] MCV 91.5 fL Normal 80.0-100.0 [facility] Comment on above: Performed By: #### A CBC, BHCG2 ####Testing performed at [address] [address] Platelet mean volume (PMV) 9.2 fL Normal 7.4-11.0 [facility] Comment on above: Performed By: #### A CBCALEXANDRACG2 ####Testing performed at [address] [address] Platelets 235 /cmm Normal 130.0-400. 0 [facility] Comment on above: Performed By: #### A CBCALEXANDRACG2 ####Testing performed at [address] [address] WBC (Leukocytes) 8.8 /cmm Normal 3.6-11.0 [facility] Comment on above: Performed By: #### A CBCALEXANDRACG2 ####Testing performed at [address] [address] ED NOTEon 07-07-2017 [facility] NOTES Normal [facility] ED PROVIDERon 07-07-2017 [facility] NOTES Normal [facility] URINE MACROSCOPICon 07-08-19 18 Bilirubin Ql (U) Negative Normal NEGATIVE [facility] Comment on above: Performed By: #### U MAC, UMIC ####Testing performed at [address] [address] URINE HEMOGLOBIN LARGE Abnormal NEGATIVE [facility] Comment on above: Performed By: #### U MAC, UMIC ####Testing performed at [address] [address] URINE KETONE Negative Normal NEGATIVE [facility] Comment on above: Performed By: #### U MAC, UMIC ####Testing performed at [address] [address] URINE LEUKOTEST Negative Normal NEGATIVE [facility] Comment on above: Performed By: #### U MAC, UMIC ####Testing performed at [address] [address] URINE NITRATES Negative Normal NEGATIVE [facility] Comment on above: Performed By: #### U MAC, UMIC ####Testing performed at [address] [address] URINE SPEC GRAVITY 1.025 Normal 1.010-1.0 2 5 [facility] Comment on above: Performed By: #### U MAC, UMIC ####Testing performed at [address] [place] [address] URINE TOTAL PROTEIN Negative Normal NEGATIVE [facility] Comment on above: Performed By: #### U MAC, UMIC ####Testing performed at [address] [place] [address] Urine, clarity CLEAR Normal CLEAR [facility] Comment on above: Performed By: #### U MAC, UMIC ####Testing performed at [address] [place] [address] Urine, color YELLOW Normal YELLOW [facility] Comment on above: Performed By: #### U MAC, UMIC ####Testing performed at [address] [place] [address] Urine, glucose presence Negative Normal NEGATIVE [facility] Comment on above: Performed By: #### U MAC, UMIC ####Testing performed at [address] [place] [address] Urine, pH 7.0 [pH] Normal 5.0-7.0 [facility] Comment on above: Performed By: #### U MAC, UMIC ####Testing performed at [address] [place] [address] Urine, urobilinogen 1.0 mg/dl Normal 0.2-1.0 [facility] Comment on above: Performed By: #### U MAC, UMIC ####Testing performed at [address] [address] URINE MICROSCOPICon 07-08-19 18 CRYSTAL OCCASIONAL Abnormal NONE [facility] Comment on above: Result Comment: CHRIS PHOUS PHOSPHATES Performed By: #### U MAC, UMIC ####Testing performed at [address] [place] [address] URINE COMMENT REFLEX CULTURE PER ESTABLISHED CRITERIA. Normal [facility] Comment on above: Performed By: #### U MAC, UMIC ####Testing performed at [address] [place] [address] URINE WBC'S 1 TO 5 Normal NEGATIVE [facility] Comment on above: Performed By: #### U MAC, UMIC ####Testing performed at [address] [place] [address] Urine, bacteria in sediment 1+ Abnormal NEGATIVE [facility] Comment on above: Performed By: #### U MAC, UMIC ####Testing performed at [address] [place] [address] Urine, casts in sediment NONE Normal NONE [facility] Comment on above: Performed By: #### U MAC, UMIC ####Testing performed at [address] [place] [address] Urine, epithelial cells in sediment 1 TO 5 Normal [facility] Comment on above: Performed By: #### U MAC, UMIC ####Testing performed at [address] [address] Urine, erythrocytes 1 TO 5 Normal NEGATIVE [facility] Comment on above: Performed By: #### U MAC, UMIC ####Testing performed at [address] [place] [address] Urine, mucus presence in sediment Negative Normal NEGATIVE [facility] Comment on above: Performed By: #### U MAC, UMIC ####Testing performed at [address] [place] [address] BhCG Quanton 07-05-2017 HCG.beta subunit Qn 238.0 mIU/m Normal [facility] Comment on above: Result Comment: FEMA LE (NON-) & MALE <3 BORDERLINE 3 - 5 SUGGEST REPEAT TESTING FEMALE () 1 D - 1 WK 5 - 50 1 - 2 WK 50 - 500 2 - 3 WK 100 - 5000 3 - 4 WK 500 - 11918 4 - 5 WK 1000 - 67698 5 - 6 WK [address] - 827776 6 - 8 WK [address] - 820242 2 - 3 [place] [address] - [address]3229 Performed By: #### 2 [id number] ####JIMMIE TziZela7166 [place] [address] Auto Diffon 07-04-2017 Basophils Auto #/vol (Bld) 0.1 E3/mcL Normal 0.0-0.2 [facility] Comment on above: Order Comment: Order Added by Discern Expert. Performed By: #### 2 [id number] ####JIMMIE VdwXsmj7067 [place] [address] Basophils/100 WBC Auto (Bld) 0.6 % Normal 0.0-2.0 [facility] Comment on above: Order Comment: Order Added by Discern Expert. Performed By: #### 2 [id number] ####JIMMIE DanZzgCysq3648 [place] [address] Eos Absolute 0.3 E3/mcL Normal 0.0-0.7 [facility] Comment on above: Order Comment: Order Added by Discern Expert. Performed By: #### 2 [id number] ####JIMMIE DanBboKjff8517 [place] [address] Eosinophils/100 leukocytes 2.5 % Normal 0.0-11.0 [facility] Comment on above: Order Comment: Order Added by Discern Expert. Performed By: #### 2 813129 ####JIMMIE DanFewQaog4660 [place] [address] Lymphocytes 2.3 E3/mcL Normal 1.2-3.4 [facility] Comment on above: Order Comment: Order Added by Discern Expert. Performed By: #### 2 241400 ####JIMMIE DanNcjYrke7134 [place] [address] Lymphocytes/100 leukocytes 22.2 % Normal 20.0-55.0 [facility] Comment on above: Order Comment: Order Added by Discern Expert. Performed By: #### 2 589933 ####JIMMIE DanXozApfb2177 [place] [address] Roberts Absolute 0.8 E3/mcL High 0.0-0.7 [facility] Comment on above: Order Comment: Order Added by Discern Expert. Performed By: #### 2 272492 ####JIMMIE DanCakTpta2519 [place] [address] Monocytes/100 leukocytes 7.6 % Normal 0.0-10.0 [facility] Comment on above: Order Comment: Order Added by Discern Expert. Performed By: #### 2 681622 ####JIMMIE DanEtxUbmk5394 [place] [address] Neutro Absolute 6.9 E3/mcL High 1.4-6.5 [facility] Comment on above: Order Comment: Order Added by Discern Expert. Performed By: #### 2 719645 ####JIMMIE DanAowSucm4155 [place] [address] Neutro Auto 67.1 % Normal 37.0-75.0 [facility] Comment on above: Order Comment: Order Added by Discern Expert. Performed By: #### 2 [id number] ####JIMMIE DanPbiGwsp4382 [place] [address] BMPon 07-04-2017 BUN/Creatinine Ratio 21.7 ratio Normal 5.4-30.0 [facility] Comment on above: Performed By: #### 2 156097 ####JIMMIE EisDwuk6793 [place] [address] Creatinine 0.6 mg/dL Normal 0.6-1.3 [facility] Comment on above: Performed By: #### 2 419019 ####JIMMIE SdqHgrz4841 [place] [address] Urea nitrogen 13 mg/dL Normal 7-18 [facility] Comment on above: Performed By: #### 2 160291 ####JIMMIE MyfQell3889 [place] [address] Calcium 8.4 mg/dL Normal 8.4-10.2 [facility] Comment on above: Performed By: #### 2 709078 ####JIMMIE EdpHsrz9377 [place] [address] Chloride 100 mmol/L Normal 98-107 [facility] Comment on above: Performed By: #### 2 554074 ####JIMMIE QnyXdfo2242 [place] [address] CO2 27.7 mmol/L Normal 24.0-30.0 [facility] Comment on above: Performed By: #### 2 577402 ####JIMMIE FtvOert4637 [place] [address] Glucose mass conc 98 mg/dL Normal 70-99 [facility] Comment on above: Performed By: #### 2 804534 ####JIMMIE FopKcul5330 [place] [address] Potassium molar conc 3.4 mmol/L Low 3.5-5.1 [facility] Comment on above: Performed By: #### 2 698483 ####JIMMIEJonathan DanRvcAhhj9805 [place] [address] Sodium 133 mmol/L Low 136-145 [facility] Comment on above: Performed By: #### 2 796521 ####JIMMIE SviEarp2836 [place] [address] BhCG Quanton 07-04-2017 HCG.beta subunit Qn 190.8 mIU/m Normal [facility] Comment on above: Result Comment: FEMA LE (NON-) & MALE <3 BORDERLINE 3 - 5 SUGGEST REPEAT TESTING FEMALE () 1 D - 1 WK 5 - 50 1 - 2 WK 50 - 500 2 - 3 WK 100 - 5000 3 - 4 WK 500 - [address] 4 - 5 WK 1000 - [address] 5 - 6 WK [address] - 748431 6 - 8 WK [address] - 147530 2 - 3 [place] [address] - 752137 Performed By: #### 2 574561 ####JIMMIEJonathan DanGtsEtiy6228 [place] [address] CBC w/ Auto Diffon 8 Erythrocyte distribution width Auto Ratio (RBC) 11.6 % Normal 11.5-14.5 [facility] Comment on above: Performed By: #### 2 602618 ####JIMMIEJonathan OzunaYvxKnjh6509 [place] [address] Erythrocytes (RBC) 4.43 E6/mcL Normal 3.90-5.40 [facility] Comment on above: Performed By: #### 2 221055 ####JIMMIEJonathan OzunaRawXyvj3565 [place] [address] Hematocrit (HCT) 40.1 % Normal 36.0-48.0 [facility] Comment on above: Performed By: #### 2 525099 ####JIMMIE Ozunao1025 [place] [address] Hemoglobin mass conc (Bld) 14.1 g/dL Normal 12.0-16.0 [facility] Comment on above: Performed By: #### 2 472297 ####JIMMIE Ozunao1025 [place] [address] MCH 31.7 pg High 27.0-31.0 [facility] Comment on above: Performed By: #### 2 227086 ####JIMMIE Ozunao1025 [place] [address] MCHC mass conc (RBC) 35.1 g/dL Normal 33.0-37.0 [facility] Comment on above: Performed By: #### 2 848802 ####JIMMIE Ozunao1025 [place] [address] MCV 90.4 fL Normal 78.0-100.0 [facility] Comment on above: Performed By: #### 2 401385 ####JIMMIE Ozunao1025 [place] [address] Platelet mean volume (PMV) 8.4 fL Normal 7.4-11.0 [facility] Comment on above: Performed By: #### 2 428509 ####JIMMIE Ozunao1025 [place] [address] Platelets 232 E3/mcL Normal 130-400 [facility] Comment on above: Performed By: #### 2 891343 ####JIMMIE Ozunao1025 [place] [address] WBC (Leukocytes) 10.3 E3/mcL Normal 3.6-11.0 [facility] Comment on above: Performed By: #### 2 312071 ####JIMMIE Ozunao1025 [place] [address] Hep Func Panelon 07-04-2017 Alanine aminotransferase (ALT) 15 Int._Unit/L Normal 10-40 [facility] Comment on above: Performed By: #### 2 508465 ####JIMMIE ZeuXzbt3598 [place] [address] Albumin 3.8 g/dL Normal 3.2-5.0 [facility] Comment on above: Performed By: #### 2 835471 ####JIMMIE NrkYmam2605 [place] [address] Albumin/Globulin Ratio 1.4 {ratio} Normal 1.1-1.9 [facility] Comment on above: Performed By: #### 2 983549 ####JIMMIE ZwqOhmo6791 [place] [address] Alk Phos 36 Int._Unit/L Low 42-121 [facility] Comment on above: Performed By: #### 2 623841 ####JIMMIE WfzHdho6176 [place] [address] Aspartate aminotransferase (AST) 18 Int._Unit/L Normal 10-42 [facility] Comment on above: Performed By: #### 2 348744 ####JIMMIE LnoGwbt9377 [place] [address] Bili Direct <.10 Normal .00-.20 [facility] Comment on above: Performed By: #### 2 810457 ####JIMMIE MyqIqac9768 [place] [address] Bili Indirect >0.7 Normal [facility] Comment on above: Result Comment: No e stablished ranges available for the Indirect Biliruben. Performed By: #### 2 748781 ####JIMMIE IorUqqh2588 [place] [address] Bili Total 0.8 mg/dL Normal 0.2-1.0 [facility] Comment on above: Performed By: #### 2 519352 ####JIMMIEJonathan DanQglMpaj7734 [place] [address] Globulin 2.8 g/dL Normal 2.0-4.0 [facility] Comment on above: Performed By: #### 2 936412 ####JIMMIE GlpMsjo8264 [place] [address] Protein 6.6 g/dL Normal 6.4-8.3 [facility] Comment on above: Performed By: #### 2 212804 ####JIMMIE FgfLslb0487 [place] [address] Lipase Levelon 07-04-2017 Lipase Lvl 19 U/L Normal 8-57 [facility] Comment on above: Performed By: #### 2 917417 ####JIMMIE NnrAicf7200 [place] [address] U BhCG Qlton 07-04-2017 HCG.beta subunit Qn Positive Normal Neg [facility] Comment on above: Performed By: #### 2 746601 ####JIMMIE Urinalysis Manual Goearlunxr8443 [place] [address] UA Completeon 07-04-2017 UA Blood 3+ Normal Negative [facility] Comment on above: Performed By: #### 8 [id number] ####JIMMIE Urinalysis Automated Tcxfxkiqub9757 [place] [address] UA Bacteria Trace Abnormal None [facility] Comment on above: Performed By: #### 8 [id number] ####JIMMIE Urinalysis Automated Hoholylvys7611 [place] [address] UA Clarity SltCloudy Abnormal Clear [facility] Comment on above: Performed By: #### 8 [id number] ####JIMMIE Urinalysis Automated Vxtrgqfvvy3149 [place] [address] UA Leuk Est Trace Normal Negative [facility] Comment on above: Performed By: #### 8 [id number] ####JIMMIE Urinalysis Automated [address] [place] [address] UA Mucous Occasional Abnormal Trace [facility] Comment on above: Performed By: #### 8 [id number] ####JIMMIE Urinalysis Automated Wbur[address] [place] [address] UA Nitrite Negative Normal Negative [facility] Comment on above: Performed By: #### 8 [id number] ####JIMMIE Urinalysis Automated [address] [place] [address] UA pH 5.0 Normal 4.6-8.0 [facility] Comment on above: Performed By: #### 8 [id number] ####JIMMIE Urinalysis Automated Etaleqqhvx6502 [place] [address] UA Protein Negative Normal Negative [facility] Comment on above: Performed By: #### 8 [id number] ####JIMMIE Urinalysis Automated Ncgxhycgcl8929 [place] [id number] UA Spec Grav 1.027 Normal 1.003-1.03 0 [facility] Comment on above: Performed By: #### 8 [id number] ####JIMMIE Urinalysis Automated Ksiyweaqpf1756 [place] [address] UA Squam Epithelial 0-5 Normal 0-5 [facility] Comment on above: Performed By: #### 8 [id number] ####JIMMIE Urinalysis Automated Pkxfpmfuar6315 [place] [id number] UA Urobilinogen Negative Normal [facility] Comment on above: Performed By: #### 8 [id number] ####JIMMIE Urinalysis Automated Obpxldpdwd8054 [place] [address] UA WBC 10-20 Abnormal 0-5 [facility] Comment on above: Performed By: #### 8 [id number] ####JIMMIE Urinalysis Automated Fnfkoniatx2770 [place] [address] Urine, color Yellow Normal Yellow [facility] Comment on above: Performed By: #### 8 [id number] ####JIMMIE Urinalysis Automated Vybswzlgre1280 [place] [address] Urine, erythrocytes 5-10 Abnormal 0-3 [facility] Comment on above: Performed By: #### 8 [id number] ####JIMMIE Urinalysis Automated Viyznsohsx3781 [place] [address] Urine, glucose Negative Normal Negative [facility] Comment on above: Performed By: #### 8 1970384 ####JIMMIE Urinalysis Automated Cttipecxqv6487 [place] [address] Urine, ketones presence Negative Normal Negative [facility] Comment on above: Performed By: #### 8 [id number] ####JIMMIE Urinalysis Automated Wgvqlwaver9734 [place] [address] Urine, urobilinogen Negative Normal Negative [facility] Comment on above: Performed By: #### 8 [id number] ####JIMMIE Urinalysis Automated Jeewdflsng0709 [place] [address] eGFRon 07-04-2017 eGFR (non-black) mL/min/{1.73_m2} Normal [facility] Comment on above: Order Comment: Order added by Discern Expert. Performed By: #### 1 [id number] ####JIMMIE OonFwtf6696 [place] [address] Vital Signs Date Time Vital Sign Value Performing Clinician Cong reynolds 04-20-2023 14:07-0500 Diastolic blood pressure 75 mm[Hg] [facility] 04-20-2023 14:07-0500 Heart rate 93 /min [facility] 04-20-2023 14:07-0500 Respiratory rate 18 /min [facility] 04-20-2023 14:07-0500 SaO2% (BldA) [Mass fraction] 99 % [facility] [address] [place] [address] 04-20-2023 14:07-0500 Systolic blood pressure 127 mm[Hg] [facility] [address] [place] [address] 04-20-2023 14:06-0500 Body height 160 cm [facility] [address] [place] [address] 04-20-2023 14:06-0500 Body mass index (BMI) [Ratio] 37.22 kg/m2 [facility] [address] [place] [address] 04-20-2023 14:06-0500 Body temperature 97.7 [degF] [facility] [address] [place] [address] 04-20-2023 14:06-0500 Body weight 95.3 kg [facility] [address] [place] [address] 03-10-2023 23:05-0500 Diastolic blood pressure 80 mm[Hg] Supriya Aichholz Work Phone: [facility] 03-10-2023 23:05-0500 Heart rate 100 /min Supriya Aichholz Work Phone: [facility] 03-10-2023 23:05-0500 Respiratory rate 20 /min Supriya Aichholz Work Phone: [facility] 03-10-2023 23:05-0500 SaO2% (BldA) [Mass fraction] 98 % Supriya Aichholz Work Phone: [facility] 03-10-2023 23:05-0500 Systolic blood pressure 137 mm[Hg] Supriya Aichholz Work Phone: [facility] 03-10-2023 17:38-0500 Body temperature 97.9 [degF] Supriya Aichholz Work Phone: [facility] 03-10-2023 17:32-0500 Body height 160.02 cm Supriya Aichholz Work Phone: [facility] 03-10-2023 17:32-0500 Body weight 95 kg Supriya Aichholz Work Phone: [facility] Encounters Encounter Date Encounter Type Care [...] MORTEZA Not Available Start: 05-22-2023 End: 05-22-2023 [facility] Start: 05-22-2023 End: 05-22-2023 Postop follow up visit related to original px Gerson Malik MD Work Phone: [facility] Comment on above: [...] 05-04-2023 [facility] Start: 05-04-2023 End: 05-04-2023 Evaluation and management of inpatient [facility] Start: 04-20-2023 End: [facility]: 04-20-2023 End: 04-20-2023 Patient encounter procedure [facility] 10 [facility] Start: 03-31-2023 End: 03-31-2023 ambulatory XIN MORTEZA Not Available Start: 03-30-2023 End: 03-30-2023 ambulatory [facility] Start: 03-14-2023 End: 03-14-2023 ambulatory XIN MORTEZA Not Available Start: 03-10-2023 End: 03-11-2023 Emergency department patient visit Jacky Alarcon Facility:[facility] Start: 03-10-2023 End: 03-10-2023 Emergency department patient visit Supriya Emmanuelreillyangie Work Phone: [facility] Work Phone: Start: 03-07-2023 End: [...] [place] Start: 07-05-2017 End: 07-06-2017 Ambulatory Dickson Ahmadi Facility:[facility] Start: 07-04-2017 End: 07-04-2017 Emergency department patient visit Dickson Reinoso Cobalt Facility:[facility] Procedures Date Procedure Procedure Detail Performing [...] Td Vaccines (5 - Td or Tdap) [facility] Start: 05-04-2024 Adult BMI Screening Adult BMI Screen ing [facility] Start: 05-04-2024 Tobacco Screening Tobacco Screening [facility] Start: 04-20-2024 Adult BMI Screening Adult BMI Screen ing [facility] Start: 04-20-2024 Tobacco Screening Tobacco Screening [facility] Start: 06-05-2023 End: 06-05-2023 Patient encounter procedure 06/05/2023 9:50 AM EST Routine [facility] OB [address] [place] [id number] Xin Pro, DO [address] [id number] [facility] Start: 05-04-2023 End: 05-04-2023 Admission to same day surgery center 05/04/2023 7:30 AM EST - 05/04/2023 9:30 AM EST Surgery [facility] [address] [place] [address] [id number] Gerson Malik MD [address] [place] [address] DAVINCI CHOLECYSTECTOMY [facility] Surgery Comment on above: DAVINCI CHOLECYSTECT ANDREA Start: 05-04-2023 End: 05-04-2023 DAVINCI CHOLECYSTECTOMY DAVINCI CHOLECYSTECTOMY CHOLELITHIASIS 05/04/2023 7:30 AM EST [facility] Start: 05-04-2023 End: 05-04-2023 DAVINCI CHOLECYSTECTOMY CHOLANGIOGRAM DAVINCI CHOLECYSTECTOMY CHOLANGIOGRAM CHOLELITHIASIS 05/04/2023 7:30 AM EST [facility] Start: 05-04-2023 Subsequent hospital visit by physician 05/04/2023 7:30 AM EST Hospital Encounter [facility] [address] [place] [address]. [place] [address] Gerson Malik MD [address] [place] [address] [facility] Start: 03-10-[address] [facility] Start: 03-10-2023 US scan of gallbladder US gall bladd er [facility] Start: 03-10-2023 Bacteria identified in Urine by Culture [facility] Start: 12-09-2022 Influenza vaccination Influenza Vacc ine [facility] Start: 2019 Screening for malign ant neoplasm of cervix Pap Smear [facility] Start: 2016 Adult BMI Follow Up Plan Adult BMI F ollow Up Plan [facility] Start: 2010 [facility] - Th e Second Month Nausea and Vomiting, Adult ED Gallstones ED [facility] Work Phone: Patient referral [facility] Work Phone: Payers Date Payer Category Payer Unknown [id number] 2022 Private Health Insurance [id number] 2022 Unknown [id number] 2017 Unknown 1998 Unknown [id number] 2.16.84 0.1.118596.3.579.2.593 1998 Unknown [id number] 2.16.84 0.1.989330.3.579.2.593 1998 Unknown [id number] 2.16.84 0.1.380078.3.579.2.593 1998 Unknown [id number] 2.16.84 0.1.703023.3.579.2.593 1998 Unknown [id number] 2.16.84 0.1.563638.3.579.2.593 1998 Unknown [id number] 2.16.84 0.1.267267.3.579.2.593 1998 Unknown [id number] 2.16.84 0.1.407584.3.579.2.593 1998 Unknown [id number] 2.16.84 0.1.163186.3.579.2.593 1998 Unknown [id number] 2.16.84 0.1.270624.3.579.2.593 1998 Unknown [id number] 2.16.84 0.1.374197.3.579.2.593 1998 Unknown [id number] 2.16.84 0.1.736818.3.579.2.593 1998 Unknown [id number] 2.16.84 0.1.479362.3.579.2.593 1998 Unknown [id number] 2.16.84 0.1.756260.3.579.2.593 1998 Unknown [id number] 2.16.8 40.1.536500.3.579.2.1286 1998 Unknown [id number] 2.16.8 40.1.112437.3.579.2.1286 1998 Unknown [id number] 2.16.8 40.1.643666.3.579.2.1286 1998 Unknown [id number] 2.16.8 40.1.023342.3.579.2.1286 1998 Unknown [id number] 2.16.84 0.1.499091.3.579.2.1286 1998 Unknown [id number] 2.16.84 0.1.530500.3.579.2.1286 1998 Unknown [id number] 2.16.84 0.1.604449.3.579.2.1259 1998 Unknown [id number] 2.16.84 0.1.775806.3.579.2.1259 1998 Unknown [id number] 2.16.84 0.1.975035.3.579.2.9 1998 Unknown [id number] 2.16.84 0.1.885101.3.579.2.1259 1998 Unknown [id number] 2.16.84 0.1.684632.3.579.2.1259 1998 Unknown [id number] 2.16.84 0.1.129282.3.579.2.1259 1998 Unknown [id number] 2.16.84 0.1.636828.3.579.2.1259 1998 Unknown [id number] 2.16.840 .1.833550.3.579.2.1259 1998 Unknown [id number] 2.16.840 .1.614999.3.579.2.9 1998 Unknown [id number] 2.16.840 .1.432396.3.579.2.1259 1959 Private Health Insurance [id number] 1959 Self-pay 1959 Unknown [id number] 1959 Unknown [id number] Unknown [id number] 2.16.8 40.1.835341.3.579.2.531 Social History Date Type Detail Facility Start: 03-10-2023 End: 03-30-2023 Tobacco smoking status NHIS Never smoked tobacco (finding) [facility] Start: 2000 Sex Assigned At Female F [facility] Start: 03-30-2023 End: 05-16-2023 Tobacco use and exposure Smokeless tobacco non-user [facility] Start: 04-20-2023 End: 05-04-2023 Alcohol intake Ex-drinker (finding) [facility] Start: 05-21-2020 End: 04-20-2023 History of Social function [facility] Start: 05-21-2020 End: 04-20-2023 Tobacco use panel [facility] Housing Instability Unknown [facility] Start: 1998 Sex Assigned At Not on file [facility] Start: 05-16-2023 Alcohol intake Lifetime non-d yrn (finding) [facility] Start: 02-10-2023 [facility] [...] up: As needed documented in this encounter [facility] [employer] Instructions 04-20-2023 Patient Instructions Note Date & Type Note Facility 04-20-2023 Instructions Terri Estrada RN - 04/20/2023 1:45 PM EST Your surgery/procedure is scheduled at [facility] on 05/04/23 at 0730 Arrival Time 0530 [facility] Address: [address] [place] [address] Park in [address] Parking lot located on [facility]. Report to the Entrance B. Check in at the information desk the surgery. The waiting room located on the second floor. If you have any questions prior to surgery, please call Pre-Admission Clinic at [phone] between 7:30 am and 4:30 pm Monday through Monday. If you have questions the morning of surgery, please call the Pre-op Department at [phone]. PLEASE FOLLOW THESE INSTRUCTIONS OR YOUR SURGERY [...] would like to schedule therapy at a [facility] facility, please call [phone] ([phone]). Do not use lotions, creams, powders, perfume, make up, cologne or after-shaves day of surgery. Remove ALL jewelry including wedding rings, body piercings,hair extensions that contain metal, nail italian, make-up, and contact lens. You may brush [...] RIGHTS AND RESPONSIBILITIES As a patient at [facility], you have the right to: Receive medical care and be informed of who is taking care of you Be treated with dignity and respect Have a family member/accounts receivable representative of choice and your physician notified of your admission Receive information and actively participate in decisions about your care and treatment Refuse care, treatment and services Decide who may provide your support and speak for you Access uatsdin and spiritual services Participate in ethical issues [...] of hospital charges and payment methods Patient/patient accounts receivable representative responsibilities are to: Provide information about [...] in clean clothes. documented in this encounter [facility] Note 04-20-2023 Perioperative Nursing Note - Lexi Reddy RN - 04/20/2023 1:45 PM EST Note Date & Type Note Facility 04-20-2023 Miscellaneous Notes Formattin g of this note might be different from the original. Appt reminder call done-message left documented in this encounter [facility] Nurse Note 04-20-2023 Perioperative Nursing Note - Lexi Reddy RN - 04/20/2023 1:45 PM EST Note Date & Type Note Facility 04-20-2023 Nurse Note Appt reminder call done-message left [facility] Evaluation note Note Date & Type Note Facility Evaluation note No assessment information availa nusrat [facility] Work Phone: Evaluation note Note Date & Type Note Facility Evaluation note Diagnosis Status post laparoscopic cholecystectomy- Primary Other postprocedural status documented in this encounter [facility] Hospital Discharge instructions Note Date & Type Note Facility Hospital Discharge instructions Additional Instructions Return if symptoms are worse Continue your Zofran and Reglan at home and will add Phenergan for vomiting Follow-up with your surgeon [facility] Work Phone: Instructions Attachments Note Date & Type Note Facility Instructions The following attachments cannot be sent through Care Everywhere.Cholecystectomy Discharge Instructions (Sol[place] Islander)documented in this encounter [facility] Summary [...] section and content) DATE CREATED AUTHOR 09/28/2017 [facility] DATE CREATED AUTHOR AUTHOR'S ORGANIZ ATION 09/29/2017 [facility] DATE CREATED AUTHOR AUTHOR'S ORGANIZ ATION 04/16/2020 [facility] DATE CREATED AUTHOR AUTHOR'S ORGANIZ ATION 08/24/2022 [facility] DATE CREATED AUTHOR AUTHOR'S ORGANIZ ATION 03/21/2023 [facility] DATE CREATED AUTHOR AUTHOR'S ORGANIZ ATION 05/24/2023 [facility] DATE CREATED AUTHOR AUTHOR'S ORGANIZ ATION 09/14/2023 [facility] [employer] Care Teams (unrecognized sec tion and content) Team Status: Active Member Role Status Dates Supriya Cerrato Primary Care Provider Active Team Status: Inactive Member Role Status Dates Supriya Cerrato Primary Care Provider Active Jacky Alarcon MD Emergency Provider Active Jack Frame Tender Relationship Specialty Start Date End Date Supriya Cerrato, KD-JULIO [address] [place] [address] PCP - General Nurse Practitioner 03/30/23 Jack Frame Tender Relationship Specialty Start Date End Date Supriya CerratoKD-JULIO [address] [place] [address] PCP - General Nurse Practitioner 03/30/23 Goals [...] BE BASED ON THE PRIMARY CLINICAL RECORDS. [facility] [employer] [facility]. provides no warranty or guarantee of the accuracy or completeness of information in this document.
[2023-09-23 07:32] VITALS: BP 118/72; PULSE 104
== END 2023-09-23 08:34 | disposition home or self-care (01) ==
LOC: FBCO 07:24 → FBC 07:26
PROVIDERS: Visit Provider Obstetrics & Gynecology
DX: O36.63X0 Maternal care for excessive fetal growth, third trimester, not applicable or unspecified (principal)
CPT/HCPCS: 59025

== ENCOUNTER 2023-09-27 07:17 | Outpatient (OUT) | payer OTHER, SELFPAY ==
--- OUTSIDE RECORDS SUMMARY | 2023-09-27 07:19 | XMS_ITS | CCD ---
Author Organization [facility] Care Team Providers Care Critical Power Install Technician Name Role Phone Galdino, Dickson W Unavailable Unavailable Galdino, Dickson W Unavailable Unavailable No Doctor Assigned, Nodr Unavailable Unavail able Galdino, Dickson W Unavailable Unavailable Riner, Dickson W Unavailable Unavailable No Doctor Assigned, Nodr Unavailable Unavail able SHEMAR ., STEFAN Admitting Unavailable SHEMAR ., STEFAN Consulting Unavailable AICHHOLZ, SENIOR ORACLE PL SQL DEVELOPER SUPRIYA Primary Care Unavailable SHEMAR ., STEFAN Attending Unavailable MORTEZA ., DR LAUREN Admitting Unavailable SHEMAR ., STEFAN Consulting Unavailable AICHHOLZ, SENIOR ORACLE PL SQL DEVELOPER SUPRIYA Primary Care Unavailable MORTEZA ., DR LAUREN Attending Unavailable SHEMAR ., STEFAN Admitting Unavailable SHEMAR ., STEFAN Consulting Unavailable SHEMAR ., STEFAN Attending Unavailable AICHHOLZ, SENIOR ORACLE PL SQL DEVELOPER SUPRIYA Primary Care Unavailable AICHHOLZ, SENIOR ORACLE PL SQL DEVELOPER SUPRIYA Primary Care Unavailable MORTEZA ., DR LAUREN Attending Unavailable MORTEZA ., DR LAUREN Admitting Unavailable MORTEZA ., DR LAUREN Admitting Unavailable MORTEZA ., DR LAUREN Attending Unavailable AICHHOLZ, SENIOR ORACLE PL SQL DEVELOPER SUPRIYA Primary Care Unavailable MORTEZA ., DR LAUREN Consulting Unavailable KARASIK ., DR MURPHY Attending Unavailabl e AICHHOLZ, SENIOR ORACLE PL SQL DEVELOPER SUPRIYA Primary Care Unavailable KARASIK ., DR MURPHY Admitting Unavailabl e Tristan Hart Consulting Unavailable KARASIK ., DR MURPHY Consulting Unavailabl e MORTEZA ., DR LAUREN Attending Unavailable MORTEZA ., DR LAUREN Admitting Unavailable REQUEST, DR FERNANDEZ LISTED Primary Care Unavaila ble MORTEZA ., DR LAUREN Consulting Unavailable MORTEZA ., DR ALUREN Procedure Practitioner Unavail able MORTEZA ., DR LAUREN Admitting Unavailable MORTEZA ., DR LAUREN Consulting Unavailable AICHHOLZ, SENIOR ORACLE PL SQL DEVELOPER SUPRIYA Primary Care Unavailable MORTEZA ., DR LAUREN Attending Unavailable Zieber, Tristan Consulting Unavailable MORTEZA ., DR LAUREN Consulting Unavailable REQUEST, DR NONE LISTED Primary Care Unavaila ble MORTEZA ., DR LAUREN Attending Unavailable MORTEZA ., DR LAUREN Admitting Unavailable Zieber, Tristan Consulting Unavailable MORTEZA ., DR LAUREN Admitting Unavailable AICHHOLZ, SENIOR ORACLE PL SQL DEVELOPER SUPRIYA Primary Care Unavailable MORTEZA ., DR LAUREN Attending Unavailable VIOLA, DR DONALD Bryan Consulting Unavailable MORTEZA ., DR LAUREN Consulting Unavailable MORTEZA ., DR LAUREN Admitting Unavailable AICHHOLZ, SENIOR ORACLE PL SQL DEVELOPER SUPRIYA Primary Care Unavailable MORTEZA ., DR LAUREN Attending Unavailable MORTEZA ., DR LAUREN Consulting Unavailable SHEMAR ., STEFAN Attending Unavailable SHEMAR ., STEFAN Admitting Unavailable Zieber, Tristan Consulting Unavailable REQUEST, DR NONE LISTED Primary Care Unavaila ble SHEMAR ., STEFAN Consulting Unavailable MORTEZA ., DR LAUREN Admitting Unavailable MORTEZA ., DR LAUREN Consulting Unavailable MORTEZA ., DR LAUREN Attending Unavailable AICHHOLZ, SENIOR ORACLE PL SQL DEVELOPER SUPRIYA Primary Care Unavailable Aichholz, Supriya J Primary Care Provider MD Jacky Alarcon Emergency Provider [phone] Jacky Alarcon Attending Unavailable Jacky Alarcon Admitting Unavailable Aicstef, Supriya J Primary Care Unavailable Aichholz LAY OUT WORKER-SENIOR ORACLE PL SQL DEVELOPER, Supriya J Primary Care Provider Unavailable Primary [...] Unavailable AICHHOLZ, SUPRIYA J Primary Care Unavailable AL-SHANNON, PA A Attending Unavailabl e AICHHOLZ, SUPRIYA J Referring Unavailable AICHHOLZ, SUPRIYA J Primary Care Unavailable XIN PRO Attending Unavailable XIN PRO Attending Unavailable XIN PRO Attending Unavailable XIN PRO Attending Unavailable STEFAN STATON Attending Unavailable XIN PRO Attending Unavailable MORTEZA, XIN Attending Unavailable STEFAN STATON Attending Unavailable XIN PRO Attending Unavailable Allergies Allergy Classification Reported Allergen(s) Allergy Type Date of Onset Reaction(s) Facility (1 source) No Known Medication Allergies; Translations: [No Known Medication Allergies] Propensity to adverse reactions to drug (disorder) [facility] Repository Medications Current Medications Medication Drug Class(es) [...] applicable or unspecified; Translations: [[facility] TRI UNS] Onset: 06-06-2022 Episodic [...] WITH AUTO DIFFon BASOPHILS ABSOLUTE AUTO 0.0 [facility] Basophils/100 WBC (Bld) 0.3 % 0.2 - 2.0 % [facility] Eosinophils/100 WBC (Bld) 2.0 % 0.9 - 7.0 % [facility] Erythrocyte distribution width (RBC) [Ratio] 12.8 % 11.0 - 15.0 % [facility] Hematocrit (Bld) [Volume fraction] 39.3 % 36.0 - 48.0 % [facility] Hemoglobin (Bld) [Mass/Vol] 14.1 g/dL 12.0 - 16.0 g/dL [facility] IMMATURE GRANULOCYTES ABS AUTO 0.07 High [facility] Immature granulocytes/100 WBC (Bld) 0.7 % High 0.0 - 0.5 % [facility] Interpretation and review of laboratory results Abnormal [facility] LYMPHOCYTES ABSOLUTE AUTO 2.0 [facility] Lymphocytes/100 WBC (Bld) 19.1 % Low 20.5 - 60.0 % [facility] MCH (RBC) [Entitic mass] 32.0 pg 26.7 - 34.0 pg [facility] MCHC (RBC) [Mass/Vol] 35.9 g/dL High 29.9 - 35.2 g/dL [facility] MCV (RBC) [Entitic vol] 89.3 fL 81.0 - 99.0 fL [facility] MONOCYTES ABSOLUTE AUTO 0.5 [facility] Monocytes/100 WBC (Bld) 4.7 % 1.7 - 12.0 % [facility] NEUTROPHILS ABSOLUTE AUTO 7.6 High [facility] Neutrophils/100 WBC (Bld) 73.2 % 43.0 - 75.0 % [facility] Platelet mean volume (Bld) [Entitic vol] 11.4 fL 9.5 - 13.5 fL [facility] TBH EO # 0.2 [facility] TBH PLT [address] [facility] RBC 4.[address] [facility] WBC 10.4 [facility] Surgical Pathologyon 024 Surgical Pathology Normal [facility] Comment on above: Result Comment: [facility] [address] [place] [address] Surgical Pathology Consultation Patient Name:DARY ASHLEY:2000 (Age: 23)Gender:FTaken:4Reported:4Physician(s):GERSON Kelsey To: Rec. #:[id number]: #[id number] Final Pathologic Diagnosis Gallbladder, cholecystectomy: Chronic cholecystitis with organizing hemorrhage and fibroblast proliferation involving gallbladder wall, accompanied by extensive mucosal erosion with reactive changes, and focal ceroid granulomas. No evidence of malignancy or dysplasia. Cholelithiasis. Report Electronically Signed Out ao/4Aolamide Moreno MD Interpretation performed at [facility], [address] [place] [address], License number: [id number]. Clinical History Cholelithiasis. Gross Description Received in [...] congested, hemorrhagic and velvety in the neck. Concrete Puddler sections are submitted in cassettes A- B, as: A- cystic duct margin and civil rights representative ragged defects,B- civil rights representative neck body and fundus. After initial microscopic evaluation, additional sections are submitted in cassettes C-E. (5,ss,[id number], m6) MARYJANE/MD merida/05/04/2023SSI Specimen(s) Received Gallbladder Fee Codes(s): 1; 77685 US gall bladderon 03-11-2023 gall bladder [facility] Main [place] [id number] Ultrasound Report Signed Patient: Dary Ashley MR#: [id number] : 2000 Acct:[id number] Age/Sex: 22 / F ADM Date: 03/10/23 Loc: ER Room: Type: [facility] ER Attending Dr: Ordering Provider: [...] Nataliia Scott M.D.03/11/2023 8:10 AM Dictation Location: [place] [address] Tech: Isi Caballero Transcribed By: RONI 03/11/23 0810 Dictated By: Nataliia Scott MD 03/11/23 0807 Signed By: 03/11/23 0810 Normal [facility] Alanine aminotransferase [En zymatic activity/volume] in Serum or PlasmaOrdered By: Jacky Alarcon on 03-10-2023 ALT [Catalytic activity/Vol] 36 U/L 7-52 [facility] Albumin [Mass/volume] in Ser um or Plasma by Bromocresol green (BCG) dye binding methoOrdered By: Jacky Alarcon on 03-10-2023 Albumin BCG dye [Mass/Vol] 4.5 g/dL 3.5-5.7 [facility] Alkaline phosphatase [Enzyma tic activity/volume] in Serum or PlasmaOrdered By: Jacky Alarcon on 03-10-2023 ALP [Catalytic activity/Vol] 71 U/L 34-104 [facility] Aspartate aminotransferase [ Enzymatic activity/volume] in Serum or PlasmaOrdered By: Jacky Alarcon on 03-10-2023 AST [Catalytic activity/Vol] 17 U/L 13-39 [facility] Automated erythrocytes count in urine sediment (number/area)Ordered By: Jacky Alarcon on 03-10-2023 RBC Auto (Urine sed) [#/Area] 50-100 [HPF] 0-4 [facility] Automated leukocytes count i n urine sediment (number/area)Ordered By: Jacky Alarcon on 03-10-2023 WBC Auto (Urine sed) [#/Area] 5-9 [HPF] 0-4 [facility] Basic Metabolic Panelon Anion gap [Moles/Vol] 16.5 mmol/L High 6.0-15.0 [facility] Comment on above: Performed By: #### L IPASE, HCGQNT, HEPATIC, BMP, CBC #### [facility] [address] Calcium [Mass/Vol] 9.3 mg/dL Normal 8.6-10.3 [facility] Comment on above: Performed By: #### L IPASE, HCGQNT, HEPATIC, BMP, CBC #### [facility] [address] [place] [address] [place] Chloride [Moles/Vol] 101 mmol/L Normal 98-107 [facility] Comment on above: Performed By: #### L IPASE, HCGQNT, HEPATIC, BMP, CBC #### [facility] [address] [place] [address] [place] CO2 [Moles/Vol] 18.8 mmol/L Low 21.0-31.0 [facility] Comment on above: Performed By: #### L IPASE, HCGQNT, HEPATIC, BMP, CBC #### [facility] [address] [place] [address] [place] Creatinine [Mass/Vol] 0.64 mg/dL Normal 0.60-1.20 [facility] Comment on above: Performed By: #### L IPASE, HCGQNT, HEPATIC, BMP, CBC #### [facility] [address] [place] [address] [place] Creatinine Clr Calc Pharmacy 148.58 [facility] Comment on above: Performed By: #### L IPASE, HCGQNT, HEPATIC, BMP, CBC #### [facility] [address] [place] [address] [place] GFR/1.73 sq M.predicted MDRD (S/P/Bld) [Vol rate/Area] mL/min/{1.73_m2} Normal [facility] Comment on above: Performed By: #### L IPASE, HCGQNT, HEPATIC, BMP, CBC #### [facility] [address] Glucose [Mass/Vol] 83 mg/dL Normal 70-100 [facility] Comment on above: Result Comment: [place] Glucose Reference Range is dependent on time and content of last meal. Glucose of more than 200 mg/dL in a nonstressed, ambulatory subject supports the diagnosis of Diabetes Mellitus. ADA recommended reference range Performed By: #### L IPASE, HCGQNT, HEPATIC, BMP, CBC #### [facility] [address] Potassium [Moles/Vol] 3.3 mmol/L Low 3.5-5.1 [facility] Comment on above: Performed By: #### L IPASE, HCGQNT, HEPATIC, BMP, CBC #### [facility] [address] [place] [address] Sodium [Moles/Vol] 133 mmol/L Low 136-145 [facility] Comment on above: Performed By: #### L IPASE, HCGQNT, HEPATIC, BMP, CBC #### [facility] [address] [place] [address] Urea nitrogen [Mass/Vol] 6 mg/dL Low 7-25 [facility] Comment on above: Performed By: #### L IPASE, HCGQNT, HEPATIC, BMP, CBC #### [facility] [address] [place] [address] [place] Basophils Auto (Bld) [#/Vol] Ordered By: Jacky Alarcon on 03-10-2023 Basophils (Bld) [#/Vol] 0.1 10*3/uL 0.0-0.2 [facility] Basophils/100 WBC Auto (Bld) Ordered By: Jacky Alarcon on 03-10-2023 Basophils/100 WBC (Bld) 0.4 % . [facility] Bilirubin Test strip Ql (U)O rdered By: Jacky Alarcon on 03-10-2023 Bilirubin Ql (U) Negative Negative [facility] Bilirubin.direct [Mass/volum e] in Serum or PlasmaOrdered By: Jacky Alarcon on 03-10-2023 Bilirubin.direct [Mass/Vol] 0.40 mg/dL 0.03-0.18 [facility] Bilirubin.total [Mass/volume ] in Serum or PlasmaOrdered By: Jacky Alarcon on 03-10-2023 Bilirubin [Mass/Vol] 1.2 mg/dL 0.3-1.0 [facility] Calcium [Mass/volume] in Ser um or PlasmaOrdered By: Jacky Alarcon on 03-10-2023 Calcium [Mass/Vol] 9.3 mg/dL 8.6-10.3 [facility] Carbon dioxide, total [Moles /volume] in Serum or PlasmaOrdered By: Jacky Alarcon on 03-10-2023 CO2 [Moles/Vol] 18.8 mmol/L 21.0-31.0 [facility] Chloride [Moles/volume] in S rahul or PlasmaOrdered By: Jacky Alarcon on 03-10-2023 Chloride [Moles/Vol] 101 mmol/L 98-107 [facility] Choriogonadotropin.beta subu nit [Units/volume] in Serum or PlasmaOrdered By: Jacky Alarcon on 03-10-2023 [place] [address].00 m[IU]/mL [facility] Comment on above: Approximate Approxim ate hCG Gestational Age Range (mIU/ml) (weeks)0.2-1 5-50 1-2 50-500 2-3 100-5,000 3-4 500-10,000 4-5 1,000-50,000 5-6 10,000-100,000 6-8 15,000-200,000 8-12 10,000-100,000 Color Auto (U)Ordered By: Corinna Alarcon on 03-10-2023 Color (U) Dark yellow Yellow [facility] Complete Blood Count Auto Di ffon 03-10-2023 Basophils (Bld) [#/Vol] 0.1 10*3/uL Normal 0.0-0.2 [facility] Comment on above: Result Comment: PERF ORMED BY: [facility] [address] [place] [address] PATHOLOGIST RESIDENTIAL COLLECTIONS ANDRÉS MACEDO M.D. Performed By: #### L IPASE, HCGQNT, HEPATIC, BMP, CBC #### [address] Basophils/100 WBC (Bld) 0.4 % Normal . [facility] Comment on above: Performed By: #### L IPASE, HCGQNT, HEPATIC, BMP, CBC #### [address] Eosinophils (Bld) [#/Vol] 0.1 10*3/uL Normal 0.0-0.45 [facility] Comment on above: Performed By: #### L IPASE, HCGQNT, HEPATIC, BMP, CBC #### [address] Eosinophils/100 WBC (Bld) 0.5 % Normal . [facility] Comment on above: Performed By: #### L IPASE, HCGQNT, HEPATIC, BMP, CBC #### [address] Erythrocyte distribution width (RBC) [Ratio] 13.3 % Normal 11.9-15.3 [facility] Comment on above: Performed By: #### L IPASE, HCGQNT, HEPATIC, BMP, CBC #### [address] Hematocrit (Bld) [Volume fraction] 47.2 % High 34.0-46.4 [facility] Comment on above: Performed By: #### L IPASE, HCGQNT, HEPATIC, BMP, CBC #### [address] Hemoglobin (Bld) [Mass/Vol] 16.5 g/dL High 11.8-15.4 [facility] Comment on above: Performed By: #### L IPASE, HCGQNT, HEPATIC, BMP, CBC #### [address] Lymphocytes (Bld) [#/Vol] 1.9 10*3/uL Normal 1.00-4.8 [facility] Comment on above: Performed By: #### L IPASE, HCGQNT, HEPATIC, BMP, CBC #### [address] Lymphocytes/100 WBC (Bld) 11.6 % Normal . [facility] Comment on above: Performed By: #### L IPASE, HCGQNT, HEPATIC, BMP, CBC #### [address] MCH (RBC) [Entitic mass] 30.8 pg Normal 24.7-34.3 [facility] Comment on above: Performed By: #### L IPASE, HCGQNT, HEPATIC, BMP, CBC #### [address] MCV (RBC) [Entitic vol] 87.8 fL Normal 80-100 [facility] Comment on above: Performed By: #### L IPASE, HCGQNT, HEPATIC, BMP, CBC #### [address] Mean Corpuscular HGB Conc 35.0 g/dL Normal 32.0-35.0 [facility] Comment on above: Performed By: #### L IPASE, HCGQNT, HEPATIC, BMP, CBC #### [address] Monocytes (Bld) [#/Vol] 1.4 10*3/uL High 0.0-0.8 [facility] Comment on above: Performed By: #### L IPASE, HCGQNT, HEPATIC, BMP, CBC #### [place] [address] [place] Monocytes/100 WBC (Bld) 16.05 % Normal 0.00-20.00 [facility] Comment on above: Performed By: #### L IPASE, HCGQNT, HEPATIC, BMP, CBC #### [address] Monocytes/100 WBC (Bld) 8.8 % Normal . [facility] Comment on above: Performed By: #### L IPASE, HCGQNT, HEPATIC, BMP, CBC #### [facility] [address] [place] [address] Neutrophils (Bld) [#/Vol] 12.6 10*3/uL High 1.8-7.7 [facility] Comment on above: Performed By: #### L IPASE, HCGQNT, HEPATIC, BMP, CBC #### [address] Neutrophils/100 WBC (Bld) 78.7 % Normal . [facility] Comment on above: Performed By: #### L IPASE, HCGQNT, HEPATIC, BMP, CBC #### [address] NRBC% 0.1 /100{WBC} Normal 0-0.5 [facility] Comment on above: Performed By: #### L IPASE, HCGQNT, HEPATIC, BMP, CBC #### [address] Platelet mean volume (Bld) [Entitic vol] 9.7 fL Normal 6.3-10.7 [facility] Comment on above: Performed By: #### L IPASE, HCGQNT, HEPATIC, BMP, CBC #### [address] Platelets (Bld) [#/Vol] 263 10*3/uL Normal 150-450 [facility] Comment on above: Performed By: #### L IPASE, HCGQNT, HEPATIC, BMP, CBC #### [address] RBC (Bld) [#/Vol] 5.37 10*6/uL High 3.60-5.00 [facility] Comment on above: Performed By: #### L IPASE, HCGQNT, HEPATIC, BMP, CBC #### [address] WBC (Bld) [#/Vol] 16.0 10*3/uL High 3.8-11.6 [facility] Comment on above: Performed By: #### L IPASE, HCGQNT, HEPATIC, BMP, CBC #### [facility] [address] [place] [address] [place] Creatinine [Mass/volume] in Serum or PlasmaOrdered By: Jacky Alarcon on 03-10-2023 Creatinine [Mass/Vol] 0.64 mg/dL 0.60-1.20 [facility] Dipstick and Microscopicon 1 05-11-2022 Appearance (U) Turbid Critically abnormal Clear [facility] Comment on above: Order Comment: Name Collection Type:: Clean-Voided Midstream Performed By: #### A DDONUAPLUS, CUU #### [facility] [address] [place] [address] [place] Bacteria,Urine Rare High None Seen [facility] Comment on above: Order Comment: Name Collection Type:: Clean-Voided Midstream Performed By: #### A DDONUAPLUS, CUU #### [facility] [address] [place] [address] [place] Bilirubin,Urine Negative Normal Negative [facility] Comment on above: Order Comment: Name Collection Type:: Clean-Voided Midstream Performed By: #### A DDONUAPLUS, CUU #### [facility] [address] [place] [address] [place] Color (U) Dark Yellow Critically abnormal Yellow [facility] Comment on above: Order Comment: Name Collection Type:: Clean-Voided Midstream Performed By: #### A DDONUAPLUS, CUU #### [facility] [address] [place] [address] [place] Glucose Ql (U) Normal Normal Normal [facility] Comment on above: Order Comment: Name Collection Type:: Clean-Voided Midstream Performed By: #### A DDONUAPLUS, CUU #### [facility] [address] [place] [address] [place] Hyaline Casts,Urine 9-19 High 0-8 [facility] Comment on above: Order Comment: Name Collection Type:: Clean-Voided Midstream Result Comment: PERF ORMED BY: [place] [address] PATHOLOGIST RESIDENTIAL COLLECTIONS ANDRÉS MACEDO M.D. Performed By: #### A DDONUAPLUS, CUU #### [address] Ketones Ql (U) 4+ High Negative [facility] Comment on above: Order Comment: Name Collection Type:: Clean-Voided Midstream Performed By: #### A DDONUAPLUS, CUU #### [address] Leukocyte esterase Test strip Ql (U) 1+ High Negative [facility] Comment on above: Order Comment: Name Collection Type:: Clean-Voided Midstream Performed By: #### A DDONUAPLUS, CUU #### [address] Nitrite,Urine Negative Normal Negative [facility] Comment on above: Order Comment: Name Collection Type:: Clean-Voided Midstream Performed By: #### A DDONUAPLUS, CUU #### [address] Occult Blood,Urine 3+ High Negative [facility] Comment on above: Order Comment: Name Collection Type:: Clean-Voided Midstream Result Comment: PERF ORMED BY: [place] [address] PATHOLOGIST RESIDENTIAL COLLECTIONS ANDRÉS MACEDO M.D. Performed By: #### A DDONUAPLUS, CUU #### [address] Othe Crystals,Urine Normal [facility] Comment on above: Order Comment: Name Collection Type:: Clean-Voided Midstream Result Comment: sulf a crystals Performed By: #### A DDONUAPLUS, CUU #### [address] pH (U) 6.5 [pH] Normal 5.0-9.0 [facility] Comment on above: Order Comment: Name Collection Type:: Clean-Voided Midstream Performed By: #### A DDONUAPLUS, CUU #### [address] Protein (U) [Mass/Vol] 100 mg/dL High Negative [facility] Comment on above: Order Comment: Name Collection Type:: Clean-Voided Midstream Performed By: #### A DDONUAPLUS, CUU #### [address] RBC,Urine 50-100 High 0-4 [facility] Comment on above: Order Comment: Name Collection Type:: Clean-Voided Midstream Performed By: #### A DDONUAPLUS, CUU #### [address] Specificy [place],Urine 1.029 Normal 1.001-1.03 0 [facility] Comment on above: Order Comment: Name Collection Type:: Clean-Voided Midstream Performed By: #### A DDONUAPLUS, CUU #### [address] Squamous Epithelial Cell,Urine 1-2 Normal 0-2 [facility] Comment on above: Order Comment: Name Collection Type:: Clean-Voided Midstream Performed By: #### A DDONUAPLUS, CUU #### [address] Urobilinogen,Urine Normal Normal Normal [facility] Comment on above: Order Comment: Name Collection Type:: Clean-Voided Midstream Performed By: #### A DDONUAPLUS, CUU #### [address] WBC,Urine 5-9 High 0-4 [facility] Comment on above: Order Comment: Name Collection Type:: Clean-Voided Midstream Performed By: #### A DDONUAPLUS, CUU #### [address] Eosinophils Auto (Bld) [#/Vo l]Ordered By: Jacky Alarcon on 03-10-2023 Eosinophils (Bld) [#/Vol] 0.1 10*3/uL 0.0-0.45 [facility] Eosinophils/100 WBC Auto (Bl d)Ordered By: Jacky Alarcon on 03-10-2023 Eosinophils/100 WBC (Bld) 0.5 % . [facility] Erythrocyte distribution wid th Auto (RBC) [Ratio]Ordered By: Jacky Alarcon on 03-10-2023 Erythrocyte distribution width (RBC) [Ratio] 13.3 % 11.9-15.3 [facility] Globulin Calc (S) [Mass/Vol] Ordered By: Jacky Alarcon on 03-10-2023 Globulin (S) [Mass/Vol] 3.5 g/dL [facility] Glucose [Mass/volume] in Ser um or PlasmaOrdered By: Jacky Alarcon on 03-10-2023 Glucose [Mass/Vol] 83 mg/dL 70-100 [facility] Comment on above: ADA recommended refe rence rangeRandom Glucose Reference Range is dependent on time and content of last meal. Glucose of more than 200 mg/dL in a nonstressed, ambulatory subject supports the diagnosis of Diabetes Mellitus. HCG ( test) IAopal guerrero Ql (U)Ordered By: Jacky Alarcon on 03-10-2023 HCG ( test) Ql (U) Positive [facility] HCG,Quantitativeon 3 HCG,Quantitative 09784.00 m[iU]/mL Normal [facility] Comment on above: Result Comment: Appr oximate Approximate hCG Gestational Age Range (mIU/ml) (weeks) 0.2-1 5-50 1-2 50-500 2-3 100-5,000 3-4 500-10,000 4-5 1,000-50,000 5-6 10,000-100,000 6-8 15,000-200,000 8-12 10,000-100,000 PERFORMED BY: [place] [address] PATHOLOGIST RESIDENTIAL COLLECTIONS ANDRÉS MACEDO M.D. Performed By: #### L IPASE, HCGQNT, HEPATIC, BMP, CBC #### [address] HCG,Urineon 03-10-2023 Beta HCG ( test) Ql (U) Positive High [facility] Comment on above: Result Comment: PERF ORMED BY: [place] [address] PATHOLOGIST RESIDENTIAL COLLECTIONS ANDRÉS MACEDO M.D. Performed By: #### U HCG #### [address] Hematocrit Auto (Bld) [Volum e fraction]Ordered By: Jacky Alarcon on 03-10-2023 Hematocrit (Bld) [Volume fraction] 47.2 % 34.0-46.4 [facility] Hemoglobin [Mass/volume] in BloodOrdered By: Jacky Alarcon on 03-10-2023 Hemoglobin (Bld) [Mass/Vol] 16.5 g/dL 11.8-15.4 [facility] Hepatic Panelon 03-10-2023 Albumin [Mass/Vol] 4.5 g/dL Normal 3.5-5.7 [facility] Comment on above: Performed By: #### L IPASE, HCGQNT, HEPATIC, BMP, CBC #### [facility] [address] [place] [address] Albumin/Globulin [Mass ratio] 1.3 {ratio} Normal [facility] Comment on above: Performed By: #### L IPASE, HCGQNT, HEPATIC, BMP, CBC #### [address] ALP [Catalytic activity/Vol] 71 U/L Normal 34-104 [facility] Comment on above: Performed By: #### L IPASE, HCGQNT, HEPATIC, BMP, CBC #### [facility] [address] [place] [address] [place] ALT [Catalytic activity/Vol] 36 U/L Normal 7-52 [facility] Comment on above: Performed By: #### L IPASE, HCGQNT, HEPATIC, BMP, CBC #### [address] AST [Catalytic activity/Vol] 17 U/L Normal 13-39 [facility] Comment on above: Performed By: #### L IPASE, HCGQNT, HEPATIC, BMP, CBC #### [address] [place] [address] [place] Bilirubin [Mass/Vol] 1.2 mg/dL High 0.3-1.0 [facility] Comment on above: Performed By: #### L IPASE, HCGQNT, HEPATIC, BMP, CBC #### [facility] [address] Bilirubin,Indirect 0.8 mg/dL Normal [facility] Comment on above: Performed By: #### L IPASE, HCGQNT, HEPATIC, BMP, CBC #### [facility] [address] Bilirubin.indirect [Mass/Vol] 0.40 mg/dL High 0.03-0.18 [facility] Comment on above: Performed By: #### L IPASE, HCGQNT, HEPATIC, BMP, CBC #### [address] Globulin (S) [Mass/Vol] 3.5 g/dL Normal [facility] Comment on above: Performed By: #### L IPASE, HCGQNT, HEPATIC, BMP, CBC #### [address] Protein [Mass/Vol] 8.0 g/dL Normal 6.4-8.9 [facility] Comment on above: Performed By: #### L IPASE, HCGQNT, HEPATIC, BMP, CBC #### [address] Ketones Auto test strip (U) [Mass/Vol]Ordered By: Jacky Alarcon on 03-10-2023 Ketones (U) [Mass/Vol] 4+ Negative [facility] Laboratory - UrinalysisOrder ed By: Jacky Alarcon on 03-10-2023 Hyaline casts LM Ql (Urine sed) 9-19 [LPF] 0-8 [facility] Leukocytes [#/volume] correc anabell for nucleated erythrocytes in Blood by Automated counOrdered By: Jacky Alarcon on 03-10-2023 WBC corrected for nucl RBC Auto (Bld) [#/Vol] 16.0 10*3/uL 3.8-11.6 [facility] Lipaseon 03-10-2023 Lipase [Catalytic activity/Vol] 35.0 U/L Normal 11.0-82.0 [facility] Comment on above: Result Comment: PERF ORMED BY: [facility] [address] [id number] PATHOLOGIST RESIDENTIAL COLLECTIONS ANDRÉS MACEDO M.D. Performed By: #### L IPASE, HCGQNT, HEPATIC, BMP, CBC #### [facility] [address] Lipase [Enzymatic activity/v olume] in Serum or PlasmaOrdered By: Jacky Alarcon on 03-10-2023 Lipase [Catalytic activity/Vol] 35.0 U/L 11.0-82.0 [facility] Lymphocytes Auto (Bld) [#/Vo l]Ordered By: Jacky Alarcon on 03-10-2023 Lymphocytes (Bld) [#/Vol] 1.9 10*3/uL 1.00-4.8 [facility] Lymphocytes/100 WBC Auto (Bl d)Ordered By: Jacky Alarcon on 03-10-2023 Lymphocytes/100 WBC (Bld) 11.6 % . [facility] MCH Auto (RBC) [Entitic mass ]Ordered By: Jacky Alarcon on 03-10-2023 MCH (RBC) [Entitic mass] 30.8 pg 24.7-34.3 [facility] MCHC Auto (RBC) [Mass/Vol]Or dered By: Jacky Alarcon on 03-10-2023 MCHC (RBC) [Mass/Vol] 35.0 g/dL 32.0-35.0 [facility] MCV Auto (RBC) [Entitic vol] Ordered By: Jacky Alarcon on 03-10-2023 MCV (RBC) [Entitic vol] 87.8 fL 80-100 [facility] Monocyte distribution width [Entitic volume] in Blood by AutomatedOrdered By: Jacky Alarcon on 03-10-2023 Monocyte distribution width Auto (Bld) [Entitic vol] 16.05 % 0.00-20.00 [facility] Monocytes Auto (Bld) [#/Vol] Ordered By: Jacky Alarcon on 03-10-2023 Monocytes (Bld) [#/Vol] 1.4 10*3/uL 0.0-0.8 [facility] Monocytes/100 WBC Auto (Bld) Ordered By: Jacky Alarcon on 03-10-2023 Monocytes/100 WBC (Bld) 8.8 % . [facility] Neutrophils Auto (Bld) [#/Vo l]Ordered By: Jacky Alarcon on 03-10-2023 Neutrophils (Bld) [#/Vol] 12.6 10*3/uL 1.8-7.7 [facility] Neutrophils/100 WBC Auto (Bl d)Ordered By: Jacky Alarcon on 03-10-2023 Neutrophils/100 WBC (Bld) 78.7 % . [facility] Nitrite Test strip Ql (U)Ord ered By: Jacky Alarcon on 03-10-2023 Nitrite Ql (U) Negative Negative [facility] No Panel InformationOrdered By: Jacky Alarcon on 03-10-2023 Estimated GFR (CKD-EPI) > 60.0 mL/Min [facility] Creatinine Clearance (Chem 148.58 [facility] Nucleated erythrocytes [Pres ence] in Blood by Automated countOrdered By: Jacky Alarcon on 03-10-2023 Nucleated RBC Auto Ql (Bld) 0.1 /100{WBC} 0-0.5 [facility] Platelet mean volume Auto (B ld) [Entitic vol]Ordered By: Jacky Alarcon on 03-10-2023 Platelet mean volume (Bld) [Entitic vol] 9.7 fL 6.3-10.7 [facility] Platelets Auto (Bld) [#/Vol] Ordered By: Jacky Alarcon on 03-10-2023 Platelets (Bld) [#/Vol] 263 10*3/uL 150-450 [facility] Potassium [Moles/volume] in Serum or PlasmaOrdered By: Jacky Alarcon on 03-10-2023 Potassium [Moles/Vol] 3.3 mmol/L 3.5-5.1 [facility] Protein Auto test strip (U) [Mass/Vol]Ordered By: Jacky Alarcon on 03-10-2023 Protein (U) [Mass/Vol] 100 mg/dL Negative [facility] Protein [Mass/volume] in Ser um or PlasmaOrdered By: Jacky Alarcon on 03-10-2023 Protein [Mass/Vol] 8.0 g/dL 6.4-8.9 [facility] RBC Auto (Bld) [#/Vol]Ordere d By: Jacky Alarcon on 03-10-2023 RBC (Bld) [#/Vol] 5.37 10*6/uL 3.60-5.00 [facility] Serum or plasma albumin/glob ulin mass ratioOrdered By: Jacky Alarcon on 03-10-2023 Albumin/Globulin [Mass ratio] 1.3 {ratio} [facility] Serum or plasma anion gap de terminationOrdered By: Jacky Alarcon on 03-10-2023 Anion gap [Moles/Vol] 16.5 mmol/L 6.0-15.0 [facility] Serum or plasma non-glucuron idated bilirubin measurement (mass/volume)Ordered By: Jacky Alarcon on 03-10-2023 Bilirubin.indirect [Mass/Vol] 0.8 mg/dL [facility] Sodium [Moles/volume] in Ser um or PlasmaOrdered By: Jacky Alarcon on 03-10-2023 Sodium [Moles/Vol] 133 mmol/L 136-145 [facility] Specific gravity Auto test s trip (U) [Rel density]Ordered By: Jacky Alarcon on 03-10-2023 Specific gravity (U) [Rel density] 1.029 1.001-1.03 0 [facility] Squamous epithelial cells de tection in urine sediment by light microscopyOrdered By: Jacky Alarcon on 03-10-2023 Epithelial cells.squamous LM Ql (Urine sed) 1-2 [HPF] 0-2 [facility] Urea nitrogen [Mass/volume] in Serum or PlasmaOrdered By: Jacky Alarcon on 03-10-2023 Urea nitrogen [Mass/Vol] 6 mg/dL 7-25 [facility] Urine Cultureon 03-10-2023 Bacteria identified Cx Nom (U) >100,000 colonies/ml mixed bacterial skin contaminants 2 Days PERFORMED BY: [facility] [address] [place] [address] PATHOLOGIST RESIDENTIAL COLLECTIONS ANDRÉS MACEDO M.D. Normal [facility] Comment on above: Performed By: #### A JOHN BACON #### [facility] [address] Urine bacteria detection by automated methodOrdered By: Jacky Alarcon on 03-10-2023 Bacteria Auto Ql (U) Rare None Seen [facility] Urine clarity by refractomet ry automatedOrdered By: Jacky Alarcon on 03-10-2023 Clarity Refractometry automated (U) Turbid Clear [facility] Urine glucose measurement by automated test strip (mass/volume)Ordered By: Jacky Alarcon on 03-10-2023 Glucose Auto test strip (U) [Mass/Vol] Normal mg/dL Normal [facility] Urine hemoglobin detection b y automated test stripOrdered By: Jacky Alarcon on 03-10-2023 Hemoglobin Auto test strip Ql (U) 3+ Negative [facility] Urine leukocyte esterase det ection by automated test stripOrdered By: Jacky Alarcon on 03-10-2023 Leukocyte esterase Auto test strip Ql (U) 1+ Negative [facility] Urine sediment crystal ident ification by light microscopyOrdered By: Jacky Alarcon on 03-10-2023 Crystals LM Nom (Urine sed) See comment [facility] Comment on above: sulfa crystals Urobilinogen Auto test strip (U) [Mass/Vol]Ordered By: Jacky Alarcon on 03-10-2023 Urobilinogen (U) [Mass/Vol] Normal mg/dL Normal [facility] WBC Auto (Bld) [#/Vol]Ordere d By: Jacky Alarcon on 03-10-2023 WBC (Bld) [#/Vol] 16.0 10*3/uL 3.8-11.6 [facility] pH Auto test strip (U)Ordere d By: Jacky Alarcon on 03-10-2023 pH (U) 6.5 [pH] 5.0-9.0 [facility] CBC AUTO DIFFon 07-30-2022 BASO # 0.1 103/ul Normal 0.0-0.1 [facility] Comment on above: Performed By: #### G TT3P #### [facility] [address] [address] [address] Jackelyn Celestin Basophils/100 WBC (Bld) 0.6 % Normal 0.2-2.0 [facility] Comment on above: Performed By: #### G TT3P #### [facility] [address] [place] [address] Dr. Jackelyn Celestin EO # 0.2 103/ul Normal 0.0-0.7 [facility] Comment on above: Performed By: #### G TT3P #### [facility] [address] [place] [address] Dr. Jackelyn Celestin Eosinophils/100 WBC (Bld) 1.5 % Normal 0.9-7.0 [facility] Comment on above: Performed By: #### G TT3P #### [facility] [address] [place] [address] Dr. Jackelyn Celestin Erythrocyte distribution width (RBC) [Ratio] 14.5 % Normal 11.0-15.0 [facility] Comment on above: Performed By: #### G TT3P #### [facility] [address] [place] [address] Dr. Jackelyn Celestin Hematocrit (Bld) [Volume fraction] 33.9 % Critically low 36.0-48.0 [facility] Comment on above: Performed By: #### G TT3P #### [facility] [address] [place] [address] Dr. Jackelyn Celestin Hemoglobin (Bld) [Mass/Vol] 11.0 g/dL Critically low 12.0-16.0 [facility] Comment on above: Performed By: #### G TT3P #### [facility] [address] [place] [address] Dr. Jackelyn Celestin IG # 0.13 10e3/ul Critically high 0.00-0.03 [facility] Comment on above: Performed By: #### G TT3P #### [facility] [address] [place] [address] Dr. Jackelyn Celestin IG % 1.1 % Critically high 0.0-0.5 [facility] Comment on above: Performed By: #### G TT3P #### [facility] [address] [place] [address] Dr. Jackelyn Celestin LYMPH # 2.2 103/ul Normal 1.2-3.8 [facility] Comment on above: Performed By: #### G TT3P #### [facility] [address] [place] [address] Dr. Jackelyn Celestin Lymphocytes/100 WBC (Bld) 17.9 % Critically low 20.5-60.0 [facility] Comment on above: Performed By: #### G TT3P #### [facility] [address] [place] [address] Dr. Jackelyn Celestin MANUAL DIFF REQ NO Normal [facility] Comment on above: Performed By: #### G TT3P #### [facility] [address] [place] [address] Dr. Jackelyn Celestin MCH (RBC) [Entitic mass] 28.6 pg Normal 26.7-34.0 [facility] Comment on above: Performed By: #### G TT3P #### [facility] [address] [place] [address] Dr. Jackelyn Celestin MCHC (RBC) [Mass/Vol] 32.4 g/dL Normal 29.9-35.2 [facility] Comment on above: Performed By: #### G TT3P #### [facility] [address] [place] [address] Dr. Jackelyn Celestin MCV (RBC) [Entitic vol] 88.1 fL Normal 81.0-99.0 [facility] Comment on above: Performed By: #### G TT3P #### [facility] [address] [place] [address] Dr. Jackelyn Celestin MONO # 0.8 103/ul Normal 0.3-0.8 [facility] Comment on above: Performed By: #### G TT3P #### [facility] [address] [place] [address] Dr. Jackelyn Celestin Monocytes/100 WBC (Bld) 6.9 % Normal 1.7-12.0 [facility] Comment on above: Performed By: #### G TT3P #### [facility] [address] [place] [address] Dr. Jackelyn Celestin NEUT # 8.7 103/ul Critically high 1.4-6.5 [facility] Comment on above: Performed By: #### G TT3P #### [facility] [address] [place] [address] Dr. Jackelyn Celestin Neutrophils/100 WBC (Bld) 72.0 % Normal 43.0-75.0 [facility] Comment on above: Performed By: #### G TT3P #### [facility] [address] [place] [address] Dr. Jackelyn Celestin Platelet mean volume (Bld) [Entitic vol] 11.5 fL Normal 9.5-13.5 [facility] Comment on above: Performed By: #### G TT3P #### [facility] [address] [place] [address] Dr. Jackelyn Celestin PLT 146 103/ul Critically low 150-450 [facility] Comment on above: Performed By: #### G TT3P #### [facility] [address] [place] [address] Dr. Jackelyn Celestin RBC 3.85 106/ul Critically low 4.20-5.40 [facility] Comment on above: Performed By: #### G TT3P #### [facility] [address] [place] [address] Dr. Jackelyn Celestin WBC 12.1 103/ul Critically high 4.0-11.0 [facility] Comment on above: Performed By: #### G TT3P #### [facility] [address] [place] [address] Dr. Jackelyn Celestin CBC AUTO DIFFon 07-29-2022 BASO # 0.0 103/ul Normal 0.0-0.1 [facility] Comment on above: Performed By: #### [id number] #### [facility] [address] [place] [address] Dr. Jackelyn Celestin Basophils/100 WBC (Bld) 0.4 % Normal 0.2-2.0 [facility] Comment on above: Performed By: #### [id number] #### [facility] [address] [place] [address] Dr. Jackelyn Celestin EO # 0.2 103/ul Normal 0.0-0.7 [facility] Comment on above: Performed By: #### 4 [id number] #### [facility] [address] [place] [address] Dr. Jackelyn Celestin Eosinophils/100 WBC (Bld) 1.4 % Normal 0.9-7.0 [facility] Comment on above: Performed By: #### 4 [id number] #### [facility] [address] [place] [address] Dr. Jackelyn Celestin Erythrocyte distribution width (RBC) [Ratio] 14.1 % Normal 11.0-15.0 [facility] Comment on above: Performed By: #### 4 [id number] #### [facility] [address] [place] [address] Dr. Jackelyn Celestin Hematocrit (Bld) [Volume fraction] 36.0 % Normal 36.0-48.0 [facility] Comment on above: Performed By: #### [id number] #### [facility] [address] [place] [address] Dr. Jackelyn Celestin Hemoglobin (Bld) [Mass/Vol] 12.2 g/dL Normal 12.0-16.0 [facility] Comment on above: Performed By: #### [id number] #### [facility] [address] [place] [address] Dr. Jackelyn Celestin IG # 0.10 10e3/ul Critically high 0.00-0.03 [facility] Comment on above: Performed By: #### [id number] #### [facility] [address] [place] [address] Dr. Jackelyn Celestin IG % 0.9 % Critically high 0.0-0.5 [facility] Comment on above: Performed By: #### 4 [id number] #### [facility] [address] [place] [address] Dr. Jackelyn Celestin LYMPH # 1.9 103/ul Normal 1.2-3.8 [facility] Comment on above: Performed By: #### 4 [id number] #### [facility] [address] [place] [address] Dr. Jackelyn Celestin Lymphocytes/100 WBC (Bld) 17.7 % Critically low 20.5-60.0 [facility] Comment on above: Performed By: #### [id number] #### [facility] [address] [place] [address] Dr. Jackelyn Celestin MANUAL DIFF REQ NO Normal [facility] Comment on above: Performed By: #### 4 [id number] #### [facility] [address] [place] [address] Dr. Jackelyn Celestin MCH (RBC) [Entitic mass] 28.8 pg Normal 26.7-34.0 [facility] Comment on above: Performed By: #### [id number] #### [facility] [address] [place] [address] Dr. Jackelyn Celestin MCHC (RBC) [Mass/Vol] 33.9 g/dL Normal 29.9-35.2 [facility] Comment on above: Performed By: #### [id number] #### [facility] [address] [place] [address] Dr. Jackelyn Celestin MCV (RBC) [Entitic vol] 84.9 fL Normal 81.0-99.0 [facility] Comment on above: Performed By: #### 4 [id number] #### [facility] [address] [place] [address] Dr. Jackelyn Celestin MONO # 0.9 103/ul Critically high 0.3-0.8 [facility] Comment on above: Performed By: #### 4 [id number] #### [facility] [address] [place] [address] Dr. Jackelyn Celestin Monocytes/100 WBC (Bld) 8.4 % Normal 1.7-12.0 [facility] Comment on above: Performed By: #### [id number] #### [facility] [address] [place] [address] Dr. Jackelyn Celestin NEUT # 7.7 103/ul Critically high 1.4-6.5 [facility] Comment on above: Performed By: #### 4 [id number] #### [facility] [address] [place] [address] Dr. Jackelyn Celestin Neutrophils/100 WBC (Bld) 71.2 % Normal 43.0-75.0 [facility] Comment on above: Performed By: #### [id number] #### [facility] [address] [place] [address] Dr. Jackelyn Celestin Platelet mean volume (Bld) [Entitic vol] 10.9 fL Normal 9.5-13.5 [facility] Comment on above: Performed By: #### 4 [id number] #### [facility] [address] [address] [address] Jackelyn Celestin PLT 170 103/ul Normal 150-450 [facility] Comment on above: Performed By: #### [id number] #### [facility] [address] [place] [address] Dr. Jackelyn Celestin RBC 4.24 106/ul Normal 4.20-5.40 [facility] Comment on above: Performed By: #### [id number] #### [facility] [address] [place] [address] Dr. Jackelyn Celestin WBC 10.8 103/ul Normal 4.0-11.0 [facility] Comment on above: Performed By: #### [id number] #### [facility] [address] [place] [address] Dr. Jackelyn Celestin DRUG SCREEN RAPID (URINE)on 07-29-2022 AMP Negative Normal NEGATIVE [facility] Comment on above: Performed By: #### [id number] #### [facility] [address] [place] [address] Dr. Jackelyn Celestin BAR Negative Normal NEGATIVE [facility] Comment on above: Performed By: #### [id number] #### [facility] [address] [place] [address] Dr. Jackelyn Celestin BUP Negative Normal NEGATIVE [facility] Comment on above: Performed By: #### 4 [id number] #### [facility] [address] [place] [address] Dr. Jackelyn Celestin BZO Negative Normal NEGATIVE [facility] Comment on above: Performed By: #### 4 [id number] #### [facility] [address] [place] [address] Dr. Jackelyn Celestin HOMERO Negative Normal NEGATIVE [facility] Comment on above: Performed By: #### [id number] #### [facility] [address] [place] [address] Dr. Jackelyn Celestin CUT-OFFS SEE BELOW Normal [facility] Comment on above: Result Comment: AMP (Amphetamine): 500ng/mL, BAR (Barbituates): 200 ng/mL, BZO (Benzodiazepines): 150 ng/mL, BUP (Buprenorphine): 10 ng/mL, HOMERO (Cocaine): 150 ng/mL, mAMP (Methamphetamine): 500 ng/mL, MTD (Methadone): 200 ng/mL, OPI (Opiates): 100 ng/mL, OXY (Oxycodone): 100 ng/mL, PCP (Phencyclidine): 25 ng/mL, PPX (Propoxyphene): 300 ng/mL, THC (Cannabinoids): 50 ng/mL, TCA (Trycyclic Antidepressants): 300 ng/mL Performed By: #### [id number] #### [facility] [address] [place] [address] Dr. Jackelyn Celestin DRUG CUT HEADER DRUG CLASS TEST SYST EM CUT-OFF CONCENTRATIONS ARE FOLLOWS: Normal [facility] Comment on above: Performed By: #### [id number] #### [facility] [address] [place] [address] Dr. Jackelyn Celestin mAMP Negative Normal NEGATIVE [facility] Comment on above: Performed By: #### [id number] #### [facility] [address] [place] [address] Dr. Jackelyn Celestin MTD Negative Normal NEGATIVE [facility] Comment on above: Performed By: #### [id number] #### [facility] [address] [place] [address] Dr. Jackelyn Celestin OPI Negative Normal NEGATIVE [facility] Comment on above: Performed By: #### [id number] #### [facility] [address] [place] [address] Dr. Jackelyn Celestin OXY Negative Normal NEGATIVE [facility] Comment on above: Performed By: #### [id number] #### [facility] [address] [place] [address] Dr. Jackelyn Celestin PCP Negative Normal NEGATIVE [facility] Comment on above: Performed By: #### [id number] #### [facility] [address] [place] [address] Dr. Jackelyn Celestin PPX Negative Normal NEGATIVE [facility] Comment on above: Performed By: #### 4 [id number] #### [facility] [address] [place] [address] Dr. Jackelyn Celestin TCA Negative Normal NEGATIVE [facility] Comment on above: Performed By: #### [id number] #### [facility] [address] [place] [address] Dr. Jackelyn Celestin THC Negative Normal NEGATIVE [facility] Comment on above: Performed By: #### [id number] #### [facility] [address] [place] [address] Dr. Jackelyn Celestin TYPE AND SCREENon 07-29-2022 TYPE AND SCREEN Negative Normal [facility] Comment on above: Performed By: #### G TT3P #### [facility] [address] [place] [address] Dr. Jackelyn Celestin US PREG GROWTHon 07-25-2022 [...] Date: 2022-07-24 22:37 Normal [facility] GROUP B STREP CULTUREon 06-09 S. agalactiae Ag Ql (Unsp spec) Culture Observations: NEGATIVE FOR GROUP B STREPTOCOCCUS. Normal [facility] Comment on above: Performed By: #### G TT3P #### [facility] [address] [place] [address] Dr. Jackelyn Celestin US PREG GROWTHon 06-06-2022 [...] TRISTAN HART Date: 2022-06-06 15:39 Normal [facility] GTT 3 HR PREGon 05-21-2022 Glucose [Mass/Vol] 91 mg/dL Normal 74-106 [facility] Comment on above: Performed By: #### G TT3P #### [facility] [address] [place] [address] Dr. Jackelyn Celestin Glucose [Mass/Vol] 168 mg/dL Normal [facility] Comment on above: Performed By: #### G TT3P #### [facility] [address] [place] [address] Dr. Jackelyn Celestin Glucose [Mass/Vol] 121 mg/dL [facility] Comment on above: Performed By: #### G TT3P #### [facility] [address] [place] [address] Dr. Jackelyn Celestin Glucose [Mass/Vol] 86 mg/dL [facility] Comment on above: Performed By: #### G TT3P #### [facility] [address] [place] [address] Dr. Jackelyn Celestin PAP ACOG PANEL 2: 21 to 29on 05-17-2022 . . Normal [facility] Comment on above: Performed By: #### 4 [id number] #### [facility] [address] [place] [address] Dr. Jackelyn Celestin DIAGNOSIS: Comment [facility] Comment on above: Result Comment: NEGA TIVE FOR INTRAEPITHELIAL LESION OR MALIGNANCY. Performed By: #### 4 [id number] #### [facility] [address] [place] [address] Dr. Jackelyn Celestin Methodology: Comment [facility] Comment on above: Result Comment: This liquid based ThinPrep(R) pap test was screened with the use of an image guided system. Performed By: #### 4 [id number] #### [facility] [address] [place] [address] Dr. Jackelyn Celestin Note: Comment [facility] Comment on above: Result Comment: The Pap smear is a screening test designed to aid in the detection of premalignant and malignant conditions of the uterine cervix. It is not a diagnostic procedure and should not be used as the sole means of detecting cervical cancer. Both false-positive and false-negative reports do occur. . Performed By: #### 4 [id number] #### [facility] [address] [place] [address] Dr. Jackelyn Celestin Performed by: Comment [facility] Comment on above: Result Comment: Alphonso Walker, Director Of Cardiology Service Line (ASCP) Performed By: #### 4 [id number] #### [facility] [address] [place] [address] Dr. Jackelyn Celestin Reflex Criteria: Comment [facility] Comment on above: Result Comment: The HPV DNA reflex criteria were not met with this specimen result therefore, no HPV testing was performed. . Performed By: #### 4 [id number] #### [facility] [address] [place] [address] Dr. Jackelyn Celestin Specimen adequacy: Comment Normal [facility] Comment on above: Result Comment: Sati sfactory for evaluation. No endocervical component is identified. Performed By: #### 4 [id number] #### [facility] [address] [place] [address] Dr. Jackelyn Celestin Age Gdln ACOG Testing 21-29 Normal [facility] Comment on above: Performed By: #### 4 [id number] #### [facility] [address] [place] [address] Dr. Jackelyn Celestin CHLAMYDIA/GONOCOCCUS ALONDRA ( AB/URINE/PAPon 05-14-2022 Chlamydia trachomatis, ALONDRA Negative Normal Negative [facility] Comment on above: Performed By: #### G TT3P #### [facility] [address] [place] [address] Dr. Jackelyn Celestin Neisseria gonorrhoeae, ALONDRA Negative Normal Negative [facility] Comment on above: Performed By: #### G TT3P #### [facility] [address] [place] [address] Dr. Jackelyn Celestin VAGINITIS/VAGINOSIS DNA PROB Dean 05-13-2022 Thao species Negative Normal Negative [facility] Comment on above: Performed By: #### 4 [id number] #### [facility] [address] [place] [address] Dr. Jackelyn Celestin Gardnerella vaginalis Negative Normal Negative [facility] Comment on above: Performed By: #### 4 [id number] #### [facility] [address] [place] [address] Dr. Jackelyn Celestin Trichomonas vaginalis Negative Normal Negative [facility] Comment on above: Performed By: #### 4 [id number] #### [facility] [address] [place] [address] Dr. Jackelyn Celestin CBC AUTO DIFFon 05-09-2022 BASO # 0.0 103/ul Normal 0.0-0.1 [facility] Comment on above: Performed By: #### C BC #### [facility] [address] [place] [address] Dr. Jackelyn Celestin Basophils/100 WBC (Bld) 0.3 % Normal 0.2-2.0 [facility] Comment on above: Performed By: #### C BC #### [facility] [address] [place] [address] Dr. Jackelyn Celestin EO # 0.1 103/ul Normal 0.0-0.7 [facility] Comment on above: Performed By: #### C BC #### [facility] [address] [place] [address] Dr. Jackelyn Celestin Eosinophils/100 WBC (Bld) 1.2 % Normal 0.9-7.0 [facility] Comment on above: Performed By: #### C BC #### [facility] [address] [place] [address] Dr. Jackelyn Celestin Erythrocyte distribution width (RBC) [Ratio] 11.9 % Normal 11.0-15.0 [facility] Comment on above: Performed By: #### C BC #### [facility] [address] [place] [address] Dr. Jackelyn Celestin Hematocrit (Bld) [Volume fraction] 33.7 % Critically low 36.0-48.0 [facility] Comment on above: Performed By: #### C BC #### [facility] [address] [place] [address] Dr. Jackelyn Celestin Hemoglobin (Bld) [Mass/Vol] 12.0 g/dL Normal 12.0-16.0 [facility] Comment on above: Performed By: #### C BC #### [facility] [address] [place] [address] Dr. Jackelyn Celestin IG # 0.07 10e3/ul Critically high 0.00-0.03 [facility] Comment on above: Performed By: #### C BC #### [facility] [address] [place] [address] Dr. Jackelyn Celestin IG % 0.6 % Critically high 0.0-0.5 [facility] Comment on above: Performed By: #### C BC #### [facility] [address] [place] [address] Dr. Jackelyn Celestin LYMPH # 1.3 103/ul Normal 1.2-3.8 [facility] Comment on above: Performed By: #### C BC #### [facility] [address] [place] [address] Dr. Jackelyn Celestin Lymphocytes/100 WBC (Bld) 11.5 % Critically low 20.5-60.0 [facility] Comment on above: Performed By: #### C BC #### [facility] [address] [place] [address] Dr. Jackelyn Celestin MANUAL DIFF REQ NO Normal [facility] Comment on above: Performed By: #### C BC #### [facility] [address] [place] [address] Dr. Jackelyn Celestin MCH (RBC) [Entitic mass] 31.0 pg Normal 26.7-34.0 [facility] Comment on above: Performed By: #### C BC #### [facility] [address] [place] [address] Dr. Jackelyn Celestin MCHC (RBC) [Mass/Vol] 35.6 g/dL Critically high 29.9-35.2 [facility] Comment on above: Performed By: #### C BC #### [facility] [address] [place] [address] Dr. Jackelyn Celestin MCV (RBC) [Entitic vol] 87.1 fL Normal 81.0-99.0 [facility] Comment on above: Performed By: #### C BC #### [facility] [address] [place] [address] Dr. Jackelyn Celestin MONO # 0.5 103/ul Normal 0.3-0.8 [facility] Comment on above: Performed By: #### C BC #### [facility] [address] [place] [address] Dr. Jackelyn Celestin Monocytes/100 WBC (Bld) 4.8 % Normal 1.7-12.0 [facility] Comment on above: Performed By: #### C BC #### [facility] [address] [address] [address] Jackelyn Celestin NEUT # 8.9 103/ul Critically high 1.4-6.5 [facility] Comment on above: Performed By: #### C BC #### [facility] [address] [address] [address] Jackelyn Celestin Neutrophils/100 WBC (Bld) 81.6 % Critically high 43.0-75.0 [facility] Comment on above: Performed By: #### C BC #### [facility] [address] [address] [address] Jackelyn Celestin Platelet mean volume (Bld) [Entitic vol] 11.3 fL Normal 9.5-13.5 [facility] Comment on above: Performed By: #### C BC #### [facility] [address] [place] [address] Dr. Jackelyn Celestin PLT 171 103/ul Normal 150-450 [facility] Comment on above: Performed By: #### C BC #### [facility] [address] [place] [address] Dr. Jackelyn Celestin RBC 3.87 106/ul Critically low 4.20-5.40 [facility] Comment on above: Performed By: #### C BC #### [facility] [address] [place] [address] Dr. Jackelyn Celestin WBC 10.9 103/ul Normal 4.0-11.0 [facility] Comment on above: Performed By: #### C BC #### [facility] [address] [address] [address] Jackelyn Celestin GLUCOSE - 1HRon 05-09-2022 Glucose [Mass/Vol] 142 mg/dL Critically high 74-106 [facility] Comment on above: Performed By: #### 4 [id number] #### [facility] [address] [place] [address] Dr. Jackelyn Celestin US PREG BIOPHY W [...] HART Date: 2022-05-09 10:35 Normal [facility] US PREG PLACENTAon 3 US PREG PLACENTA EXAMINATION: US PREG PLACENTA HISTORY: Falls ; mild cramping after falling COMPARISON: Ultrasound anatomy 03/17/2022 FINDINGS: PLACENTA: Posterior without previa, subchorionic hematoma, or abruption. CERVIX LENGTH: Not evaluated. HEART RATE: 158 bpm OTHER: None. IMPRESSION: 1. Unremarkable posterior placenta. No suspicious findings. Electronically authenticated by: TRISTAN HART Date: 2022-05-09 10:29 Normal [facility] US PREG ANATOMY SINGLEon US PREG [...] TRISTAN HART Date: 2022-03-17 16:29 Normal [facility] HEP B SURFACE ANTIGEN SCREEN on 02-15-2022 HBsAg Screen Negative Normal Negative [facility] Comment on above: Performed By: #### [id number] #### [facility] [address] [address] [address] Jackelyn Celestin HEPATITIS C VIRUS AB W/ REFL EX QUANTon 02-15-2022 HCV AB <0.1 Normal 0.0-0.9 [facility] Comment on above: Performed By: #### H CVPCRR #### [facility] [address] [place] [address] Dr. Jackelyn Celestin Interpretation: Comment Normal [facility] Comment on above: Result Comment: Nega tive Not infected with HCV, unless recent infection is suspected or other evidence exists to indicate HCV infection. Performed By: #### H CVPCRR #### [facility] [address] [address] [address] Jackelyn Celestin HIV 1 AND 2 WITH REFLEXon HIV Screen 4th Generation wRfx Non-Reactive Normal Non Reactive [facility] Comment on above: Result Comment: HIV Negative HIV-1/HIV-2 antibodies and HIV-1 p24 antigen were NOT detected. There is no laboratory evidence of HIV infection. Performed By: #### H IV12 #### [facility] [address] [place] [address] Dr. Jackelyn Celestin RPR QUANTon 02-15-2022 Rapid Plasma Reagin, Quant Non-Reactive Normal NonRea<1:1 [facility] Comment on above: Result Comment: Plea se Note: This test does not meet current guidelines for screening and diagnosis of syphilis. This test is intended for following treatment response in patients being treated for syphilis infection. To screen for syphilis infection, a reflex cascade that includes both RPR and a treponema-specific assay should be utilized, such as Treponema pallidum (Syphilis) Screening [place] (117573) or Rapid Plasma Reagin (RPR) Test With Reflex to Quantitative RPR and Confirmatory Treponema pallidum Antibodies (496430). Performed By: #### R PRQ #### [facility] [address] [place] [address] Dr. Jackelyn Celestin RUBELLA AB IGGon 02-15-2022 Rubella Antibodies, IgG 1.97 index Normal Immune >0.99 [facility] Comment on above: Result Comment: Non- immune <0.90 Equivocal 0.90 - 0.99 Immune >0.99 Performed By: #### R UBIGG #### [facility] [address] [place] [address] Dr. Jackelyn Celestin CBC AUTO DIFFon 02-12-2022 BASO # 0.0 103/ul Normal 0.0-0.1 [facility] Comment on above: Performed By: #### C BC #### [facility] [address] [place] [address] Dr. Jackelyn Celestin Basophils/100 WBC (Bld) 0.4 % Normal 0.2-2.0 [facility] Comment on above: Performed By: #### C BC #### [facility] [address] [place] [address] Dr. Jackelyn Celestin EO # 0.2 103/ul Normal 0.0-0.7 [facility] Comment on above: Performed By: #### C BC #### [facility] [address] [place] [address] Dr. Jackelyn Celestin Eosinophils/100 WBC (Bld) 2.0 % Normal 0.9-7.0 [facility] Comment on above: Performed By: #### C BC #### [facility] [address] [place] [address] Dr. Jackelyn Celestin Erythrocyte distribution width (RBC) [Ratio] 12.8 % Normal 11.0-15.0 [facility] Comment on above: Performed By: #### C BC #### [facility] [address] [place] [address] Dr. Jackelyn Celestin Hematocrit (Bld) [Volume fraction] 40.7 % Normal 36.0-48.0 [facility] Comment on above: Performed By: #### C BC #### [facility] [address] [place] [address] Dr. Jackelyn Celestin Hemoglobin (Bld) [Mass/Vol] 14.4 g/dL Normal 12.0-16.0 [facility] Comment on above: Performed By: #### C BC #### [facility] [address] [place] [address] Dr. Jackelyn Celestin IG # 0.05 10e3/ul Critically high 0.00-0.03 [facility] Comment on above: Performed By: #### C BC #### [facility] [address] [place] [address] Dr. Jackelyn Celestin IG % 0.4 % Normal 0.0-0.5 [facility] Comment on above: Performed By: #### C BC #### [facility] [address] [place] [address] Dr. Jackelyn Celestin LYMPH # 1.7 103/ul Normal 1.2-3.8 [facility] Comment on above: Performed By: #### C BC #### [facility] [address] [place] [address] Dr. Jackelyn Celestin Lymphocytes/100 WBC (Bld) 15.1 % Critically low 20.5-60.0 [facility] Comment on above: Performed By: #### C BC #### [facility] [address] [place] [address] Dr. Jackelyn Celestin MANUAL DIFF REQ NO Normal [facility] Comment on above: Performed By: #### C BC #### [facility] [address] [place] [address] Dr. Jackelyn Celestin MCH (RBC) [Entitic mass] 31.2 pg Normal 26.7-34.0 [facility] Comment on above: Performed By: #### C BC #### [facility] [address] [place] [address] Dr. Jackelyn Celestin MCHC (RBC) [Mass/Vol] 35.4 g/dL Critically high 29.9-35.2 [facility] Comment on above: Performed By: #### C BC #### [facility] [address] [address] [address] Jackelyn Celestin MCV (RBC) [Entitic vol] 88.1 fL Normal 81.0-99.0 [facility] Comment on above: Performed By: #### C BC #### [facility] [address] [address] [address] Jackelyn Celestin MONO # 0.4 103/ul Normal 0.3-0.8 [facility] Comment on above: Performed By: #### C BC #### [facility] [address] [address] [address] Jackelyn Celestin Monocytes/100 WBC (Bld) 3.3 % Normal 1.7-12.0 [facility] Comment on above: Performed By: #### C BC #### [facility] [address] [place] [address] Dr. Jackelyn Celestin NEUT # 8.8 103/ul Critically high 1.4-6.5 [facility] Comment on above: Performed By: #### C BC #### [facility] [address] [place] [address] Dr. Jackelyn Celestin Neutrophils/100 WBC (Bld) 78.8 % Critically high 43.0-75.0 [facility] Comment on above: Performed By: #### C BC #### [facility] [address] [address] [address] Jackelyn Celestin Platelet mean volume (Bld) [Entitic vol] 11.6 fL Normal 9.5-13.5 [facility] Comment on above: Performed By: #### C BC #### [facility] [address] [address] [address] Jackelyn Celestin PLT 203 103/ul Normal 150-450 [facility] Comment on above: Performed By: #### C BC #### [facility] [address] [address] [address] Jackelyn Celestin RBC 4.62 106/ul Normal 4.20-5.40 [facility] Comment on above: Performed By: #### C BC #### [facility] [address] [place] [address] Dr. Jackelyn Celestin WBC 11.2 103/ul Critically high 4.0-11.0 [facility] Comment on above: Performed By: #### C BC #### [facility] [address] [place] [address] Dr. Jackelyn Celestin CULTURE URINEon 02-12-2022 CULTURE URINE Culture Observations : NO GROWTH. Normal [facility] Comment on above: Performed By: #### U RCX #### [facility] [address] [place] [address] Dr. Jackelyn Celestin GLYCOHEMOGLOBIN A1Con 2021 ADA RECOMMENDATION SEE BELOW Normal [facility] Comment on above: Result Comment: ADA RECOMMENDED LIMIT 4.0 - 6.0 ADA THERAPEUTIC TARGET < 7.0 ACTION SUGGESTED > 7.0 Performed By: #### 4 [id number] #### [facility] [address] [place] [address] Dr. Jackelyn Celestin Glucose [Mass/Vol] 94 mg/dL Normal [facility] Comment on above: Performed By: #### 4 [id number] #### [facility] [address] [place] [address] Dr. Jackelyn Celesitn HbA1c (Bld) [Mass fraction] 4.9 % Normal 4.5-6.2 [facility] Comment on above: Performed By: #### 4 [id number] #### [facility] [address] [place] [address] Dr. Jackelyn Celestin TYPE AND SCREENon 02-12-2022 TYPE AND SCREEN Negative Normal [facility] Comment on above: Performed By: #### T NS #### [facility] [address] [place] [address] Dr. Jackelyn Celestin US PREG TVon 01-21-2022 [...] AGUILAR Date: 2022-01-21 16:41 Normal [facility] Coding Summary.on 12-12-2019 Coding Summary. CODING DATE: 020 FINAL [facility] STATUS: Home (Routine DC) PAYOR: [...] day(s), # 20 tab(s), Refills(s) 0, Pharmacy: [facility], 159, cm, 11/21/19 19:13:00 EDT, Height/Length Dosing, 96, kg, 11/21/19 19:13:00 EDT, Weight Dosing Follow-up No qualifying data available Patient Education Body Mass Index, BMI DASH Diet MyPlate from [employer] Obesity Otitis Media, Adult Problem List/Past Medical [...] Document Reviewed: 01/04/2006 ExitCare? Patient Information ?2013 [employer]. DASH Diet The DASH diet stands for [...] beef, chicken breast, turkey breast. All fish. [place], bake, or broil your meat. Nothing should [...] 06/18/2012 Document Reviewed: 03/15/2012 ExitCare? Patient Information ?2014 [employer]. [employer], [employer] The amount you need to eat from each food group depends on your age, sex, and level of physical activity. To find the amounts that are right for you, go to ChooseMyVimbly.gov. Tips: ? Enjoy your food, but eat [...] Document Reviewed: 06/16/2008 ExitCare? Patient Information ?2014 [employer] [facility]. [facility] Obesity Obesity is defined as having [...] Document Reviewed: 05/02/2012 ExitCare? Patient Information ?2014 [employer]. Otitis Media, Adult A middle ear infection [...] the first few days. ? Only take abqn-tlr-gbttjtl or prescription medicines for pain, discomfort, or [...] Document Reviewed: 10/31/2008 ExitCare? Patient Information ?[address] [facility] SARS-CoV-2, NAAon 11-20-2019 SARS CORONAVIRUS 2 RNA:PRTHR:PT:RESPIRATO RY:ORD:PROBE.AMP.TAR Not Detected Not Detected [facility] Comment on above: Result Comment: This test was developed and its performance characteristics determined by [employer]. This test has not been FDA [...] this assay. Performed at: [facility] [address] [place], [place] [id number] MD Malaika Velez Performed By: #### S ARS-CoV-2, ALONDRA #### [facility] [address] [place] [address] [facility] Video Visit - Telehealthon 11-16-2019 [...] interactive video communications from my office using [employer] due to the restrictions of the COVID-19 pandemic. No physical exam was conducted other than those areas of the body visible to telecommunications with the patient located at [address] [phone], with no one else in attendance. If [...] * * Result Note: Testing performed at [facility], [place], [place] [address] *REPORT STATUS 07/10/2017 * Result Note: FINAL * O RGANISM ESCHERICHIA COLI * Result Note: ESCHERICHIA COLI *METHOD MICAMPICILLIN <=2 SUSCEPTIBLEAMPICILLIN/SULBA CTAM <=2 SUSCEPTIBLECEFTRIAXONE <=1 SUSCEPTIBLECEFAZOLIN <=4 SUSCEPTIBLEIMIPENEM <=0.25 SUSCEPTIBLEGENTAMICIN <=1 SUSCEPTIBLETRIMETH-SULFA <=20 SUSCEPTIBLEAMOXICILLIN/CLAV ULANIC A <=2 SUSCEPTIBLENITROFURANTOIN 32 SUSCEPTIBLEPIPERACILLIN/SADA OBACTAM <=4 SUSCEPTIBLELEVOFLOXACIN <=0.12 SUSCEPTIBLEESBL NEGATIVECEFTAZIDIME <=1 SUSCEPTIBLE Normal [facility] Comment on above: Performed By: #### A URNC ####Testing performed at [address] [address]Kdgtizv performed at [address] [address] BHCG,QUANTITATIVEon 07-08-19 18 BHCG,QUANTITATIVE 133.56 MIU/ML Normal [facility] Comment on above: Result Comment: [facility] INTERPRETIVE RANGES: NON FEMALE 0-6 MIU/MLMALE ADULT [...] #### A CBC, BHCG2 ####Testing performed at [address] [address] CBCon 07-07-2017 ABSOLUTE BAS 0.1 X10 Normal [facility] Comment on above: Performed By: #### A CBC, BHCG2 ####Testing performed at [address] [place] [address] ABSOLUTE EOS 0.20 X10 Normal [facility] Comment on above: Performed By: #### A CBC, BHCG2 ####Testing performed at [address] [place] [address] Basophils/100 WBC Auto (Bld) 0.6 % Normal 0.0-2.0 [facility] Comment on above: Performed By: #### A CBC, BHCG2 ####Testing performed at [address] [place] [address] DTYPE AUTO DIFF Normal [facility] Comment on above: Performed By: #### A CBC, BHCG2 ####Testing performed at [address] [place] [address] Eosinophils/100 leukocytes 2.0 % Normal 0.0-11.0 [facility] Comment on above: Performed By: #### A CBC, BHCG2 ####Testing performed at [address] [place] [address] Lymphocytes 2.00 X10 Normal [facility] Comment on above: Performed By: #### A CBC, BHCG2 ####Testing performed at [address] [address] Lymphocytes/100 leukocytes 23.0 % Normal 20.0-55.0 [facility] Comment on above: Performed By: #### A CBC, BHCG2 ####Testing performed at [address] [address] Monocytes 0.6 X10 Normal [facility] Comment on above: Performed By: #### A CBC, BHCG2 ####Testing performed at [address] [address] Monocytes/100 leukocytes 7.1 % Normal 0.0-10.0 [facility] Comment on above: Performed By: #### A CBC, BHCG2 ####Testing performed at [address] [place] [address] Neutrophils 5.9 x10 Normal 1.0-7.0 [facility] Comment on above: Performed By: #### A CBC, BHCG2 ####Testing performed at [address] [address] Neutrophils/100 leukocytes 67.3 % Normal 37.0-75.0 [facility] Comment on above: Performed By: #### A CBC BHCG2 ####Testing performed at [address] [address] Erythrocyte distribution width Auto Ratio (RBC) 12.1 % Normal 11.5-14.5 [facility] Comment on above: Performed By: #### A CBC BHCG2 ####Testing performed at [address] [address] Erythrocytes (RBC) 4.72 /cmm Normal 4.0-5.4 [facility] Comment on above: Performed By: #### A CBC BHCG2 ####Testing performed at [address] [address] Hematocrit (HCT) 43.2 % Normal 36.0-48.0 [facility] Comment on above: Performed By: #### A CBC BHCG2 ####Testing performed at [address] [address] Hemoglobin mass conc (Bld) 15.1 g/dL Normal 12.0-16.0 [facility] Comment on above: Performed By: #### A CBC BHCG2 ####Testing performed at [address] [address] MCH 32.0 pg Normal 26.0-35.0 [facility] Comment on above: Performed By: #### A CBC BHCG2 ####Testing performed at [address] [address] MCHC mass conc (RBC) 35.0 g/dL Normal 27.0-37.0 [facility] Comment on above: Performed By: #### A CBC BHCG2 ####Testing performed at [address] [address] MCV 91.5 fL Normal 80.0-100.0 [facility] Comment on above: Performed By: #### A CBC BHCG2 ####Testing performed at [address] [address] Platelet mean volume (PMV) 9.2 fL Normal 7.4-11.0 [facility] Comment on above: Performed By: #### A CBC, BHCG2 ####Testing performed at [address] [address] Platelets 235 /cmm Normal 130.0-400. 0 [facility] Comment on above: Performed By: #### A CBC, BHCG2 ####Testing performed at [address] [address] WBC (Leukocytes) 8.8 /cmm Normal 3.6-11.0 [facility] Comment on above: Performed By: #### A CBC, CG2 ####Testing performed at [address] [address] ED NOTEon 07-07-2017 [facility] NOTES Normal [facility] ED PROVIDERon 07-07-2017 [facility] NOTES Normal [facility] URINE MACROSCOPICon 07-08-19 18 Bilirubin Ql (U) Negative Normal NEGATIVE [facility] Comment on above: Performed By: #### U MAC, UMIC ####Testing performed at [address] [address] URINE HEMOGLOBIN LARGE Abnormal NEGATIVE [facility] Comment on above: Performed By: #### U MAC, UMIC ####Testing performed at [address] [address] URINE KETONE Negative Normal NEGATIVE [facility] Comment on above: Performed By: #### U MAC, UMIC ####Testing performed at [address] [address] URINE LEUKOTEST Negative Normal NEGATIVE [facility] Comment on above: Performed By: #### U MAC, UMIC ####Testing performed at [address] [address] URINE NITRATES Negative Normal NEGATIVE [facility] Comment on above: Performed By: #### U MAC, UMIC ####Testing performed at [address] [address] URINE SPEC GRAVITY 1.025 Normal 1.010-1.0 2 5 [facility] Comment on above: Performed By: #### U MAC, UMIC ####Testing performed at [address] [place] [address] URINE TOTAL PROTEIN Negative Normal NEGATIVE [facility] Comment on above: Performed By: #### U MAC, UMIC ####Testing performed at [address] [place] [address] Urine, clarity CLEAR Normal CLEAR [facility] Comment on above: Performed By: #### U MAC, UMIC ####Testing performed at [address] [place] [address] Urine, color YELLOW Normal YELLOW [facility] Comment on above: Performed By: #### U MAC, UMIC ####Testing performed at [address] [place] [address] Urine, glucose presence Negative Normal NEGATIVE [facility] Comment on above: Performed By: #### U MAC, UMIC ####Testing performed at [address] [address] Urine, pH 7.0 [pH] Normal 5.0-7.0 [facility] Comment on above: Performed By: #### U MAC, UMIC ####Testing performed at [address] [address] Urine, urobilinogen 1.0 mg/dl Normal 0.2-1.0 [facility] Comment on above: Performed By: #### U MAC, UMIC ####Testing performed at [address] [address] URINE MICROSCOPICon 03-30-20 18 CRYSTAL OCCASIONAL Abnormal NONE [facility] Comment on above: Result Comment: CHRIS PHOUS PHOSPHATES Performed By: #### U MAC, UMIC ####Testing performed at [address] [address] URINE COMMENT REFLEX CULTURE PER ESTABLISHED CRITERIA. Normal [facility] Comment on above: Performed By: #### U MAC, UMIC ####Testing performed at [address] [address] URINE WBC'S 1 TO 5 Normal NEGATIVE [facility] Comment on above: Performed By: #### U MAC, UMIC ####Testing performed at [facility] [address] [place] [address] Urine, bacteria in sediment 1+ Abnormal NEGATIVE [facility] Comment on above: Performed By: #### U MAC, UMIC ####Testing performed at [address] [place] [address] Urine, casts in sediment NONE Normal NONE [facility] Comment on above: Performed By: #### U MAC, UMIC ####Testing performed at [address] [place] [address] Urine, epithelial cells in sediment 1 TO 5 Normal [facility] Comment on above: Performed By: #### U MAC, UMIC ####Testing performed at [address] [place] [address] Urine, erythrocytes 1 TO 5 Normal NEGATIVE [facility] Comment on above: Performed By: #### U MAC, UMIC ####Testing performed at [address] [place] [address] Urine, mucus presence in sediment Negative Normal NEGATIVE [facility] Comment on above: Performed By: #### U MAC, UMIC ####Testing performed at [address] [place] [address] BhCG Quanton 07-05-2017 HCG.beta subunit Qn 238.0 mIU/m Normal [facility] Comment on above: Result Comment: FEMA LE (NON-) & MALE <3 BORDERLINE 3 - 5 SUGGEST REPEAT TESTING FEMALE () 1 D - 1 WK 5 - 50 1 - 2 WK 50 - 500 2 - 3 WK 100 - 5000 3 - 4 WK 500 - [address] 4 - 5 WK 1000 - 22011 5 - 6 WK [address] - 762559 6 - 8 WK [address] - 539607 2 - 3 [place] [address] - 158631 Performed By: #### 2 [id number] ####JIMMIE [address]Mdgd[address] [place] [address] Auto Diffon 07-04-2017 Basophils Auto #/vol (Bld) 0.1 E3/mcL Normal 0.0-0.2 [facility] Comment on above: Order Comment: Order Added by Discern Expert. Performed By: #### 2 [id number] ####JIMMIE ZqtFugw0640 [place] [address] Basophils/100 WBC Auto (Bld) 0.6 % Normal 0.0-2.0 [facility] Comment on above: Order Comment: Order Added by Discern Expert. Performed By: #### 2 [id number] ####JIMMIE DanTgyJejo1461 [place] [address] Eos Absolute 0.3 E3/mcL Normal 0.0-0.7 [facility] Comment on above: Order Comment: Order Added by Discern Expert. Performed By: #### 2 150733 ####JIMMIE DanQmpZghn1516 [place] [address] Eosinophils/100 leukocytes 2.5 % Normal 0.0-11.0 [facility] Comment on above: Order Comment: Order Added by Discern Expert. Performed By: #### 2 726904 ####JIMMIE NcvBykk6845 [place] [address] Lymphocytes 2.3 E3/mcL Normal 1.2-3.4 [facility] Comment on above: Order Comment: Order Added by Discern Expert. Performed By: #### 2 631748 ####JIMMIE LdiRvuz5866 [place] [address] Lymphocytes/100 leukocytes 22.2 % Normal 20.0-55.0 [facility] Comment on above: Order Comment: Order Added by Discern Expert. Performed By: #### 2 641900 ####JIMMIE SqbTkit9823 [place] [address] [place] Absolute 0.8 E3/mcL High 0.0-0.7 [facility] Comment on above: Order Comment: Order Added by Discern Expert. Performed By: #### 2 486041 ####JIMMIE XyqWndl6017 [place] [address] Monocytes/100 leukocytes 7.6 % Normal 0.0-10.0 [facility] Comment on above: Order Comment: Order Added by Discern Expert. Performed By: #### 2 105999 ####JIMMIE DanAywPyla0252 [place] [address] Neutro Absolute 6.9 E3/mcL High 1.4-6.5 [facility] Comment on above: Order Comment: Order Added by Discern Expert. Performed By: #### 2 487481 ####JIMMIE Ozunao1025 [place] [address] Neutro Auto 67.1 % Normal 37.0-75.0 [facility] Comment on above: Order Comment: Order Added by Discern Expert. Performed By: #### 2 348107 ####JIMMIE Ozunao[address] [place] [address] BMPon 07-04-2017 BUN/Creatinine Ratio 21.7 ratio Normal 5.4-30.[address] [facility] Comment on above: Performed By: #### 2 262587 ####JIMMIE DanIwzTrxs4633 [place] [address] Creatinine 0.6 mg/dL Normal 0.6-1.3 [facility] Comment on above: Performed By: #### 2 799580 ####JIMMIE Gresham1025 [place] [address] Urea nitrogen 13 mg/dL Normal 7-18 [facility] Comment on above: Performed By: #### 2 222063 ####JIMMIE SnvJuwf4504 [place] [address] Calcium 8.4 mg/dL Normal 8.4-10.2 [facility] Comment on above: Performed By: #### 2 868808 ####JIMMIE XywFuby2580 [place] [address] Chloride 100 mmol/L Normal 98-107 [facility] Comment on above: Performed By: #### 2 652663 ####JIMMIE PdnAyyy2188 [place] [address] CO2 27.7 mmol/L Normal 24.0-30.0 [facility] Comment on above: Performed By: #### 2 061004 ####JIMMIE XbzAdvc7295 [place] [address] Glucose mass conc 98 mg/dL Normal 70-[address] [facility] Comment on above: Performed By: #### 2 689846 ####JIMMIE IelGqbv1043 [place] [address] Potassium molar conc 3.4 mmol/L Low 3.5-5.[address] [facility] Comment on above: Performed By: #### 2 276267 ####JIMMIEJonathan DanQryNcbo7962 [place] [address] Sodium 133 mmol/L Low 136-145 [facility] Comment on above: Performed By: #### 2 224057 ####JIMMIE RgdRcgx9400 [place] [address] BhCG Quanton 07-04-2017 HCG.beta subunit Qn 190.8 mIU/m Normal [facility] Comment on above: Result Comment: FEMA LE (NON-) & MALE <3 BORDERLINE 3 - 5 SUGGEST REPEAT TESTING FEMALE () 1 D - 1 WK 5 - 50 1 - 2 WK 50 - 500 2 - 3 WK 100 - 5000 3 - 4 WK 500 - [address] 4 - 5 WK 1000 - [address] 5 - 6 WK [address] - 905031 6 - 8 WK [address] - 223418 2 - 3 [place] [address] - [address] Performed By: #### 2 877582 ####JIMMIEJonathan DanXanHcek3994 [place] [address] CBC w/ Auto Diffon 8 Erythrocyte distribution width Auto Ratio (RBC) 11.6 % Normal 11.5-14.5 [facility] Comment on above: Performed By: #### 2 043141 ####JIMMIEJonathan DanEgbRlas7548 [place] [address] Erythrocytes (RBC) 4.43 E6/mcL Normal 3.90-5.40 [facility] Comment on above: Performed By: #### 2 332814 ####JIMMIEJonathan OzunaHinLkgo9311 [place] [address] Hematocrit (HCT) 40.1 % Normal 36.0-48.0 [facility] Comment on above: Performed By: #### 2 871306 ####JIMMIEJonathan OzunaRixDhds8581 [place] [address] Hemoglobin mass conc (Bld) 14.1 g/dL Normal 12.0-16.0 [facility] Comment on above: Performed By: #### 2 130350 ####JIMMIEJonathan DanOjpJwjh2445 [place] [address] MCH 31.7 pg High 27.0-31.0 [facility] Comment on above: Performed By: #### 2 340450 ####JIMMIEJonathan DanLwmXscv1238 [place] [address] MCHC mass conc (RBC) 35.1 g/dL Normal 33.0-37.[address] [facility] Comment on above: Performed By: #### 2 704073 ####JIMMIE Ozunao1025 [place] [address] MCV 90.4 fL Normal 78.0-100.0 [facility] Comment on above: Performed By: #### 2 744833 ####JIMMIE Ozunao1025 [place] [address] Platelet mean volume (PMV) 8.4 fL Normal 7.4-11.0 [facility] Comment on above: Performed By: #### 2 745537 ####JIMMIE Ozunao1025 [place] [address] Platelets 232 E3/mcL Normal 130-400 [facility] Comment on above: Performed By: #### 2 230768 ####JIMMIE Ozunao1025 [place] [address] WBC (Leukocytes) 10.3 E3/mcL Normal 3.6-11.[address] [facility] Comment on above: Performed By: #### 2 363570 ####JIMMIE Ozunao1025 [place] [address] Hep Func Panelon 07-04-2017 Alanine aminotransferase (ALT) 15 Int._Unit/L Normal 10-40 [facility] Comment on above: Performed By: #### 2 398159 ####JIMMIE MguVbta9169 [place] [address] Albumin 3.8 g/dL Normal 3.2-5.0 [facility] Comment on above: Performed By: #### 2 468925 ####JIMMIE BjmOdub4474 [place] [address] Albumin/Globulin Ratio 1.4 {ratio} Normal 1.1-1.9 [facility] Comment on above: Performed By: #### 2 658021 ####JIMMIE NykSava7709 [place] [address] Alk Phos 36 Int._Unit/L Low 42-121 [facility] Comment on above: Performed By: #### 2 520270 ####JIMMIE YnuSzin2999 [place] [address] Aspartate aminotransferase (AST) 18 Int._Unit/L Normal 10-42 [facility] Comment on above: Performed By: #### 2 565684 ####JIMMIE KfqVtjo4173 [place] [address] Bili Direct <.10 Normal .00-.20 [facility] Comment on above: Performed By: #### 2 359137 ####JIMMIE VyjAkdm4285 [place] [address] Bili Indirect >0.7 Normal [facility] Comment on above: Result Comment: No e stablished ranges available for the Indirect Biliruben. Performed By: #### 2 493640 ####JIMMIE ArfUwrn6276 [place] [address] Bili Total 0.8 mg/dL Normal 0.2-1.0 [facility] Comment on above: Performed By: #### 2 567613 ####JIMMIEJonathan DanRltVewg4935 [place] [address] Globulin 2.8 g/dL Normal 2.0-4.0 [facility] Comment on above: Performed By: #### 2 975268 ####JIMMIE VdfGrdn3066 [place] [address] Protein 6.6 g/dL Normal 6.4-8.3 [facility] Comment on above: Performed By: #### 2 796173 ####JIMMIEJonathan DanUlrXlse3673 [place] [address] Lipase Levelon 07-04-2017 Lipase Lvl 19 U/L Normal 8-57 [facility] Comment on above: Performed By: #### 2 344264 ####JIMMIE PlhVzdt4904 [place] [address] U BhCG Qlton 07-04-2017 HCG.beta subunit Qn Positive Normal Neg [facility] Comment on above: Performed By: #### 2 970554 ####JIMMIE Urinalysis Manual Hjbbfjaeph0159 [place] [address] UA Completeon 07-04-2017 UA Blood 3+ Normal Negative [facility] Comment on above: Performed By: #### 8 [id number] ####JIMMIE Urinalysis Automated Ghieozrasx2069 [place] [address] UA Bacteria Trace Abnormal None [facility] Comment on above: Performed By: #### 8 9077249 ####JIMMIE Urinalysis Automated Bukccghokb7763 [place] [address] UA Clarity SltCloudy Abnormal Clear [facility] Comment on above: Performed By: #### 8 1568784 ####JIMMIE Urinalysis Automated Vazyqsbhwe2588 [place] [address] UA Leuk Est Trace Normal Negative [facility] Comment on above: Performed By: #### 8 [id number] ####JIMMIE Urinalysis Automated [address] [place] [address] UA Mucous Occasional Abnormal Trace [facility] Comment on above: Performed By: #### 8 [id number] ####JIMMIE Urinalysis Automated [address] [place] [address] UA Nitrite Negative Normal Negative [facility] Comment on above: Performed By: #### 8 [id number] ####JIMMIE Urinalysis Automated Slljwzbfmn5633 [place] [address] UA pH 5.0 Normal 4.6-8.0 [facility] Comment on above: Performed By: #### 8 [id number] ####JIMMIE Urinalysis Automated [address] [place] [address] UA Protein Negative Normal Negative [facility] Comment on above: Performed By: #### 8 9772020 ####JIMMIE Urinalysis Automated [address] [place], [place] [address] UA Spec Grav 1.027 Normal 1.003-1.03 0 [facility] Comment on above: Performed By: #### 8 [id number] ####JIMMIE Urinalysis Automated T[address]so[address] [place], [place] [address] UA Squam Epithelial 0-5 Normal 0-5 [facility] Comment on above: Performed By: #### 8 [id number] ####JIMMIE Urinalysis Automated [address]tawys[address] [place], [place] [address] UA Urobilinogen Negative Normal [facility] Comment on above: Performed By: #### 8 [id number] ####JIMMIE Urinalysis Automated Kktgsdytji2627 [place] [address] UA WBC 10-20 Abnormal 0-5 [facility] Comment on above: Performed By: #### 8 [id number] ####JIMMIE Urinalysis Automated Rsklimstyq1605 [place] [address] Urine, color Yellow Normal Yellow [facility] Comment on above: Performed By: #### 8 [id number] ####JIMMIE Urinalysis Automated Eshaowwbbz4674 [place] [address] Urine, erythrocytes 5-10 Abnormal 0-3 [facility] Comment on above: Performed By: #### 8 [id number] ####JIMMIE Urinalysis Automated Glmcdmelms9648 [place] [address] Urine, glucose Negative Normal Negative [facility] Comment on above: Performed By: #### 8 [id number] ####JIMMIE Urinalysis Automated Rwkuznkfaa6062 [place] [address] Urine, ketones presence Negative Normal Negative [facility] Comment on above: Performed By: #### 8 6083038 ####JIMMIE Urinalysis Automated Bwlgcieywk3693 [place] [address] Urine, urobilinogen Negative Normal Negative [facility] Comment on above: Performed By: #### 8 6586542 ####JIMMIE Urinalysis Automated Cnohxooaox3913 [place] [address] eGFRon 07-04-2017 eGFR (non-black) mL/min/{1.73_m2} Normal [facility] Comment on above: Order Comment: Order added by Discern Expert. Performed By: #### 1 [id number] ####JIMMIE EaeGyow0480 [place] [address] Vital Signs Date Time Vital Sign Value Performing Clinician Cong reynolds 04-20-2023 14:07-0500 Diastolic blood pressure 75 mm[Hg] [facility] 04-20-2023 14:07-0500 Heart rate 93 /min [facility] 04-20-2023 14:07-0500 Respiratory rate 18 /min [facility] 04-20-2023 14:07-0500 SaO2% (BldA) [Mass fraction] 99 % [facility] 04-20-2023 14:07-0500 Systolic blood pressure 127 mm[Hg] [facility] 04-20-2023 14:06-0500 Body height 160 cm [facility] 10 [facility] 04-20-2023 14:06-0500 Body mass index (BMI) [Ratio] 37.22 kg/m2 [facility] 04-20-2023 14:06-0500 Body temperature 97.7 [degF] [facility] 04-20-2023 14:06-0500 Body weight 95.[address] [facility] [address] [place] [address] 03-10-2023 23:05-0500 Diastolic blood pressure 80 mm[Hg] Supriya Aichholz Work Phone: [facility] 03-10-2023 23:05-0500 Heart rate 100 /min Supriya Aichholz Work Phone: [facility] 03-10-2023 23:05-0500 Respiratory rate 20 /min Supriya Aichholz Work Phone: [facility] 03-10-2023 23:05-0500 SaO2% (BldA) [Mass fraction] 98 % Supriya Aichholz Work Phone: [facility] 03-10-2023 23:05-0500 Systolic blood pressure 137 mm[Hg] Supriya Aichholz Work Phone: [facility] 03-10-2023 17:38-0500 Body temperature 97.9 [degF] Supriya Aichholz Work Phone: [facility] 03-10-2023 17:32-0500 Body height 160.02 cm Supriya Aichholz Work Phone: [facility] 03-10-2023 17:32-0500 Body weight 95 kg Supriya Aichholz Work Phone: [facility] Encounters Encounter Date Encounter Type Care [...] MORTEZA Not Available Start: 05-22-2023 End: 05-22-2023 [facility] Start: 05-22-2023 End: 05-22-2023 Postop follow up visit related to original px Gerson Malik MD Work Phone: [facility]-Trauma Comment on above: [...] Evaluation and management of inpatient SUKI ELI [facility] Start: 05-04-2023 End: 05-04-2023 Evaluation and management of inpatient [facility] Start: 04-20-2023 End: 04-20-2023 ambulatory [facility] Start: 04-20-2023 End: 04-20-2023 Patient encounter procedure [facility] Start: 03-31-2023 End: 03-31-2023 ambulatory XIN PRO Not Available Start: 03-30-2023 End: 03-30-2023 [facility] Start: 03-14-2023 End: 03-14-2023 ambulatory XIN PRO Not Available Start: 03-10-2023 End: 03-11-2023 Emergency department patient visit Jacky Alarcon Facility:[facility] Start: 03-10-2023 End: 03-10-2023 Emergency department patient visit Supriya Londonostef Work Phone: [facility] Work Phone: Start: 03-07-2023 End: [...] 07-07-2017 End: 07-07-2017 Emergency department patient visit [facility] Start: 07-05-2017 End: 07-06-2017 Ambulatory Dickson Arleth Ahmadi Facility:[facility] Start: 07-04-2017 End: 07-04-2017 Emergency department patient visit Dickson Ahmadi Facility:[facility] Procedures Date Procedure Procedure Detail Performing [...] Vaccines (5 - Td or Tdap) [facility] Start: 05-04-2024 Adult BMI Screening Adult BMI Screen ing [facility] Start: 05-04-2024 Tobacco Screening Tobacco Screening [facility] Start: 04-20-2024 Adult BMI Screening Adult BMI Screen ing [facility] Start: 04-20-2024 Tobacco Screening Tobacco Screening [facility] Start: 06-05-2023 End: 06-05-2023 Patient encounter procedure 06/05/2023 9:50 AM EST Routine [facility] [address] [place] [address] Xin Pro DO [address] [place] [address] [facility] Start: 05-04-2023 End: 05-04-2023 Admission to same day surgery center 05/04/2023 7:30 AM EST - 05/04/2023 9:30 AM EST Surgery [facility] Surgery [address] [place] [id number] Gerson Malik MD [address] [place], [place] [id number] DAVINCI CHOLECYSTECTOMY [facility] Surgery Comment on above: DAVINCI CHOLECYSTECT ANDREA Start: 05-04-2023 End: 05-04-2023 DAVINCI CHOLECYSTECTOMY DAVINCI CHOLECYSTECTOMY CHOLELITHIASIS 05/04/2023 7:30 AM EST [facility] Start: 05-04-2023 End: 05-04-2023 DAVINCI CHOLECYSTECTOMY CHOLANGIOGRAM DAVINCI CHOLECYSTECTOMY CHOLANGIOGRAM CHOLELITHIASIS 05/04/2023 7:30 AM EST [facility] Start: 05-04-2023 Subsequent hospital visit by physician 05/04/2023 7:30 AM EST Hospital Encounter [facility] Surgery [address] [place] [id number] Gerson Malik MD [address] [place] [address] [facility] Surgery Start: 03-10-2023 US Gallbladder [facility] Start: 03-10-2023 US scan of gallbladder US gall bladd er [facility] Start: 03-10-2023 Bacteria identified in Urine by Culture [facility] Start: 12-09-2022 Influenza vaccination Influenza Vacc ine [facility] Start: 2019 Screening for malign ant neoplasm of cervix Pap Smear [facility] Start: 2016 Adult BMI Follow Up Plan Adult BMI F ollow Up Plan [facility] Start: 2010 Depression Screening Depression Scre ening [facility] Patient Education - Th e Second Month Nausea and Vomiting, Adult ED Gallstones ED [facility] Work Phone: Patient referral [facility] Work Phone: Payers Date Payer Category Payer Unknown [id number] 2022 Private Health Insurance [id number] 2022 Unknown [id number] 2017 Unknown 1998 Unknown [id number] 2.16.84 0.1.796923.3.579.2.593 1998 Unknown [id number] 2.16.84 0.1.284613.3.579.2.593 1998 Unknown [id number] 2.16.84 0.1.700031.3.579.2.593 1998 Unknown [id number] 2.16.84 0.1.895166.3.579.2.593 1998 Unknown [id number] 2.16.84 0.1.790739.3.579.2.593 1998 Unknown [id number] 2.16.84 0.1.041466.3.579.2.593 1998 Unknown [id number] 2.16.84 0.1.143276.3.579.2.593 1998 Unknown [id number] 2.16.84 0.1.673095.3.579.2.593 1998 Unknown [id number] 2.16.84 0.1.443237.3.579.2.593 1998 Unknown [id number] 2.16.84 0.1.257317.3.579.2.593 1998 Unknown [id number] 2.16.84 0.1.936281.3.579.2.593 1998 Unknown [id number] 2.16.84 0.1.741319.3.579.2.593 1998 Unknown [id number] 2.16.84 0.1.582269.3.579.2.593 1998 Unknown [id number] 2.16.8 40.1.148020.3.579.2.1286 1998 Unknown [id number] 2.16.8 40.1.898988.3.579.2.1286 1998 Unknown [id number] 2.16.8 40.1.675361.3.579.2.1286 1998 Unknown [id number] 2.16.8 40.1.788289.3.579.2.1286 1998 Unknown [id number] 2.16.84 0.1.151432.3.579.2.1286 1998 Unknown [id number] 2.16.84 0.1.441703.3.579.2.1286 1998 Unknown [id number] 2.16.84 0.1.612304.3.579.2.9 1998 Unknown [id number] 2.16.84 0.1.252658.3.579.2.1259 1998 Unknown [id number] 2.16.84 0.1.988200.3.579.2.9 1998 Unknown [id number] 2.16.84 0.1.334853.3.579.2.1259 1998 Unknown [id number] 2.16.84 0.1.634306.3.579.2.1259 1998 Unknown [id number] 2.16.84 0.1.272037.3.579.2.1259 1998 Unknown [id number] 2.16.84 0.1.989210.3.579.2.1259 1998 Unknown [id number] 2.16.840 .1.275063.3.579.2.1259 1998 Unknown [id number] 2.16.840 .1.405103.3.579.2.9 1998 Unknown [id number] 2.16.840 .1.588962.3.579.2.1259 1959 Private Health Insurance [id number] 1959 Self-pay 1959 Unknown [id number] 1959 Unknown [id number] Unknown [id number] 2.16.8 40.1.511062.3.579.2.531 Social History Date Type Detail Facility Start: 03-10-2023 End: 03-30-2023 Tobacco smoking status NHIS Never smoked tobacco (finding) [facility] Start: 2000 Sex Assigned At Female F [facility] Start: 03-30-2023 End: 05-16-2023 Tobacco use and exposure Smokeless tobacco non-user [facility] Start: 04-20-2023 End: 05-04-2023 Alcohol intake Ex-drinker (finding) [facility] Start: 05-21-2020 End: 04-20-2023 History of Social function [facility] Start: 05-21-2020 End: 04-20-2023 Tobacco use panel [facility] Housing Instability Unknown [facility] Start: 2000 Sex Assigned At Not on file P [facility] Start: 05-16-2023 Alcohol intake Lifetime non-d yrn (finding) [facility] Start: 02-10-2023 [facility] History [...] up: As needed documented in this encounter [facility] [employer] Instructions 04-20-2023 Patient Instructions Note Date & Type Note Facility 04-20-2023 Instructions Terri Estrada RN - 04/20/2023 1:45 PM EST Your surgery/procedure is scheduled at [facility] on 05/04/23 at 0730 Arrival Time 0530 [facility] Address: [address] [place] [address] Park in P1 Parking lot located on [facility]. Report to the Entrance B. Check in at the information desk the surgery. The waiting room located on the second floor. If you have any questions prior to surgery, please call Pre-Admission Clinic at [phone] between 7:30 am and 4:30 pm Monday through Monday. If you have questions the morning of surgery, please call the Pre-op Department at [phone]. PLEASE FOLLOW THESE INSTRUCTIONS OR YOUR SURGERY [...] would like to schedule therapy at a [facility] facility, please call [phone] ([phone]). Do not use lotions, creams, powders, perfume, make up, cologne or after-shaves day of surgery. Remove ALL jewelry including wedding rings, body piercings,hair extensions that contain metal, nail divehi, make-up, and contact lens. You may brush [...] RIGHTS AND RESPONSIBILITIES As a patient at [facility], you have the right to: Receive medical care and be informed of who is taking care of you Be treated with dignity and respect Have a family member/civil rights representative of choice and your physician notified of your admission Receive information and actively participate in decisions about your care and treatment Refuse care, treatment and services Decide who may provide your support and speak for you Access roman catholic and spiritual services Participate in ethical issues [...] of hospital charges and payment methods Patient/patient civil rights representative responsibilities are to: Provide information about [...] clean clothes. documented in this encounter [facility] Note 04-20-2023 Perioperative Nursing Note - Lexi Reddy RN - 04/20/2023 1:45 PM EST Note Date & Type Note Facility 04-20-2023 Miscellaneous Notes Formattin g of this note might be different from the original. Appt reminder call done-message left documented in this encounter [facility] Nurse Note 04-20-2023 Perioperative Nursing Note - Lexi Reddy RN - 04/20/2023 1:45 PM EST Note Date & Type Note Facility 04-20-2023 Nurse Note Appt reminder call done-message left [facility] Evaluation note Note Date & Type Note Facility Evaluation note No assessment information availa nusrat [facility] Work Phone: Evaluation note Note Date & Type Note Facility Evaluation note Diagnosis Status post laparoscopic cholecystectomy- Primary Other postprocedural status documented in this encounter [facility] Hospital Discharge instructions Note Date & Type Note Facility Hospital Discharge instructions Additional Instructions Return if symptoms are worse Continue your Zofran and Reglan at home and will add Phenergan for vomiting Follow-up with your surgeon [facility] Work Phone: Instructions Attachments Note Date & Type Note Facility Instructions The following attachments cannot be sent through Care Everywhere.Cholecystectomy Discharge Instructions (Somali)documented in this encounter [facility] Summary Purpose Family History No Family [...] section and content) DATE CREATED AUTHOR 09/28/2017 [facility] DATE CREATED AUTHOR AUTHOR'S ORGANIZ ATION 09/29/2017 [facility] DATE CREATED AUTHOR AUTHOR'S ORGANIZ ATION 04/16/2020 [facility] DATE CREATED AUTHOR AUTHOR'S ORGANIZ ATION 08/24/2022 [facility] DATE CREATED AUTHOR AUTHOR'S ORGANIZ ATION 03/21/2023 [facility] DATE CREATED AUTHOR AUTHOR'S ORGANIZ ATION 05/24/2023 [facility] DATE CREATED AUTHOR AUTHOR'S ORGANIZ ATION 09/14/2023 [facility] [employer] Care Teams (unrecognized sec tion and content) Team Status: Active Member Role Status Dates Supriya Cerrato Primary Care Provider Active Team Status: Inactive Member Role Status Dates Supriya Cerrato Primary Care Provider Active Jacky Alarcon MD Emergency Provider Active Critical Power Install Technician Relationship Specialty Start Date End Date Supriya Cerrato, 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 [facility] [email or web address] provides no warranty or guarantee of the accuracy or completeness of information in this document.
[2023-09-27 17:46] VITALS: BP 130/76; PULSE 103
--- NOTE | 2023-09-27 18:40 | US_ITS ---
[address] [address] Patient Name: EDISON ASHLEY MRN: [id number] date: 2000 Sex: F Assigned Patient Location: [facility] Current Patient Location: [facility] Accession/Order Number: [id number] Exam Date: 09/27/2023 18:43 Report Date: 09/28/2023 06:27 At the request of: XIN GRULLON Procedure: US OB BPP w non-stress EXAMINATION: US OB BPP w non-stress HISTORY: EXCESSIVE GROWTH AFFECTING O36.63X0 COMPARISON: No relevant comparison available. TECHNIQUE: Ultrasound biophysical profile was performed in the radiology department. BREATHING MOVEMENTS: 2 GROSS BODY MOVEMENTS: 2 TONE: 2 QUALITATIVE AMNIOTIC FLUID VOLUME: 2 PRESENTATION: Cephalic HEART RATE: 133 bpm. AMNIOTIC FLUID VOLUME: 15.8 cm GESTATIONAL AGE: 34 weeks 5 days CONCLUSION: 1. Total biophysical profile score 8. 2. A few fluid-filled loops of bowel. Consider follow-up. Electronically authenticated by: PAM SALAZAR Date: 09/28/2023 06:27
== END 2023-09-27 23:40 | disposition home or self-care (01) ==
LOC: US 07:17 → FBC 17:38
PROVIDERS: Visit Provider Obstetrics & Gynecology
DX: O36.63X0 Maternal care for excessive fetal growth, third trimester, not applicable or unspecified (principal); Z3A.34 34 weeks gestation of pregnancy
CPT/HCPCS: 76818

== ENCOUNTER 2023-09-30 01:06 | Outpatient (OUT) | payer OTHER, SELFPAY ==
--- OUTSIDE RECORDS SUMMARY | 2023-09-30 01:09 | XMS_ITS | CCD ---
Author Organization [facility] Care Team Providers Care Urban Design Consultant Name Role Phone Galdino, Dickson W Unavailable Unavailable Galdino, Dickson W Unavailable Unavailable No Doctor Assigned, Nodr Unavailable Unavail able Galdino, Dickson W Unavailable Unavailable Delavan, Dickson W Unavailable Unavailable No Doctor Assigned, Nodr Unavailable Unavail able SHEMAR ., STEFAN Admitting Unavailable SHEMAR ., STEFAN Consulting Unavailable AICHHOLZ, SUPERINTENDENT AMMUNITION STORAGE SUPRIYA Primary Care Unavailable SHEMAR ., STEFAN Attending Unavailable MORTEZA ., DR LAUREN Admitting Unavailable SHEMAR ., STEFAN Consulting Unavailable AICHHOLZ, SUPERINTENDENT AMMUNITION STORAGE SUPRIYA Primary Care Unavailable MORTEZA ., DR LAUREN Attending Unavailable SHEMAR ., STEFAN Admitting Unavailable SHEMAR ., STEFAN Consulting Unavailable SHEMAR ., STEFAN Attending Unavailable AICHHOLZ, SUPERINTENDENT AMMUNITION STORAGE SUPRIYA Primary Care Unavailable AICHHOLZ, SUPERINTENDENT AMMUNITION STORAGE SUPRIYA Primary Care Unavailable MORTEZA ., DR LAUREN Attending Unavailable MORTEZA ., DR LAUREN Admitting Unavailable MORTEZA ., DR LAUREN Admitting Unavailable MORTEZA ., DR LAUREN Attending Unavailable AICHHOLZ, SUPERINTENDENT AMMUNITION STORAGE SUPRIYA Primary Care Unavailable MORTEZA ., DR LAUREN Consulting Unavailable KARASIK ., DR MURPHY Attending Unavailabl e AICHHOLZ, SUPERINTENDENT AMMUNITION STORAGE SUPRIYA Primary Care Unavailable KARASIK ., DR [...] MORTEZA ., DR LAUREN Consulting Unavailable AICHHOLZ, SUPERINTENDENT AMMUNITION STORAGE SUPRIYA Primary Care Unavailable MORTEZA ., DR LAUREN Attending Unavailable Zieber, Tristan Consulting Unavailable MORTEZA ., DR LAUREN Consulting Unavailable REQUEST, DR NONE LISTED Primary Care Unavaila ble MORTEZA ., DR LAUREN Attending Unavailable MORTEZA ., DR LAUREN Admitting Unavailable Zieber, Tristan Consulting Unavailable MORTEZA ., DR LAUREN Admitting Unavailable AICHHOLZ, SUPERINTENDENT AMMUNITION STORAGE SUPRIYA Primary Care Unavailable MORTEZA ., DR LAUREN Attending Unavailable LAUGHLIN, DR DONALD Bryan Consulting Unavailable MORTEZA ., DR LAUREN Consulting Unavailable MORTEZA ., DR LAUREN Admitting Unavailable AICHHOLZ, SUPERINTENDENT AMMUNITION STORAGE SUPRIYA Primary Care Unavailable MORTEZA ., DR LAUREN Attending Unavailable MORTEZA ., DR LAUREN Consulting Unavailable SHEMAR ., STEFAN Attending Unavailable SHEMAR ., STEFAN Admitting Unavailable Zieber, Tristan Consulting Unavailable REQUEST, DR NONE LISTED Primary Care Unavaila ble SHEMAR ., STEFAN Consulting Unavailable MORTEZA ., DR LAURNE Admitting Unavailable MORTEZA ., DR LAUREN Consulting Unavailable MORTEZA ., DR LAURNE Attending Unavailable AICHHOLZ, SUPERINTENDENT AMMUNITION STORAGE SUPRIYA Primary Care Unavailable Aichholz, Supriya J Primary Care Provider MD Jacky Alarcon Emergency Provider Jacky Alarcon Attending Unavailable Jacky Alarcon Admitting Unavailable Aicstef, Supriya J Primary Care Unavailable Aichholz EMPLOYEE RELATIONS CONSULTANT-SUPERINTENDENT AMMUNITION STORAGE, Supriya J Primary Care Provider Unavailable Primary [...] Primary Care Unavailable XIN PRO Attending Unavailable MORTEZA, XIN Attending Unavailable MORTEZA, XIN Attending Unavailable MORTEZA, XIN Attending Unavailable STEFAN STATON Attending Unavailable MORTEZA, XIN Attending Unavailable MORTEZA, XIN Attending Unavailable STEFAN STATON Attending Unavailable MORTEZA, XIN Attending Unavailable MORTEZA, XIN Attending Unavailable Allergies Allergy Classification Reported Allergen(s) Allergy Type Date of Onset Reaction(s) Facility (1 source) No Known Medication Allergies; Translations: [No Known Medication Allergies] Propensity to adverse reactions to drug (disorder) [facility] Repository Medications Current Medications Medication Drug [...] applicable or unspecified; Translations: [[facility]NS] Onset: [...] AUTO DIFFon BASOPHILS ABSOLUTE AUTO 0.0 [facility] Basophils/100 WBC (Bld) 0.3 % 0.2 - 2.0 % [facility] Eosin[facility]/100 WBC (Bld) 2.0 % 0.9 - 7.0 % [facility] Erythrocyte distribution width (RBC) [Ratio] 12.8 % 11.0 - 15.0 % [facility] Hematocrit (Bld) [Volume fraction] 39.3 % 36.0 - 48.0 % [facility] Hemoglobin (Bld) [Mass/Vol] 14.1 g/dL 12.0 - 16.0 g/dL [facility] IMMATURE GRANULOCYTES ABS AUTO 0.07 High [facility] Immature granulocytes/100 WBC (Bld) 0.7 % High 0.0 - 0.5 % [facility] Interpretation and review of laboratory results Abnormal [facility] LYMPHOCYTES ABSOLUTE AUTO 2.0 [facility] Lymphocytes/100 WBC (Bld) 19.1 % Low 20.5 - 60.0 % [facility] MCH (RBC) [Entitic mass] 32.0 pg 26.7 - 34.0 pg [facility] MCHC (RBC) [Mass/Vol] 35.9 g/dL High 29.9 - 35.2 g/dL [facility] MCV (RBC) [Entitic vol] 89.3 fL 81.0 - 99.0 fL [facility] MONOCYTES ABSOLUTE AUTO 0.5 [facility] Monocytes/100 WBC (Bld) 4.7 % 1.7 - 12.0 % [facility] NEUTROPHILS ABSOLUTE AUTO 7.6 High [facility] Neutrophils/100 WBC (Bld) 73.2 % 43.0 - 75.0 % [facility] Platelet mean volume (Bld) [Entitic vol] 11.4 fL 9.5 - 13.5 fL [facility] TBH EO # 0.2 [facility] TB PLT [facility] RBC 4.40 [facility] TBH WBC 10.4 [facility] Surgical Pathologyon 024 Surgical Pathology Normal [facility] Comment on above: Result Comment: [place] [facility] [address] [place] [address] Surgical Pathology Consultation Patient Name:DARY ASHLEY:2000 (Age: 23)Gender:FTaken:4Reported:4Physician(s):GERSON Kelsey To: Rec. 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 No evidence of malignancy or dysplasia. Cholelithiasis. Report Electronically Signed Out ao/05/12/2023olamide Moreno MD Interpretation performed at [facility], [address] [place] [address], License number: [id number]. Clinical History Cholelithiasis. Gross Description Received in [...] congested, hemorrhagic and velvety in the neck. Laser Printing Operator sections are submitted in cassettes A- B, as: A- cystic duct margin and artist representative ragged defects,B- artist representative neck body and fundus. After initial microscopic evaluation, additional sections are submitted in cassettes C-E. (5,ss,[id number], m6) MARYJANE/ mxw/05/04/2023SSI Specimen(s) Received Gallbladder Fee Codes(s): 1; 41688 gall bladderon 03-11-2023 gall bladder [facility] [place] [address] Ultrasound Report Signed Patient: Dary Ashley MR#: [id number] : 2000 Acct:[id number] Age/Sex: 22 / F ADM Date: 03/10/23 Loc: ER Room: Type: [facility] ER Attending Dr: Ordering Provider: Jacky [...] Nataliia Scott M.D.03/11/2023 8:10 AM Dictation Location: [place] [address] Tech: Isi Federico Transcribed By: RONI 03/11/23 0810 Dictated By: Nataliia Scott MD 03/11/23 0807 Signed By: 03/11/23 0810 Normal [facility] Alanine aminotransferase [En zymatic activity/volume] in Serum or PlasmaOrdered By: Jacky Alarcon on 03-10-2023 ALT [Catalytic activity/Vol] 36 U/L 7-52 [facility] Albumin [Mass/volume] in Ser um or Plasma by Bromocresol green (BCG) dye binding methoOrdered By: Jacky Alarcon on 03-10-2023 Albumin BCG dye [Mass/Vol] 4.5 g/dL 3.5-5.7 [facility] Alkaline phosphatase [Enzyma tic activity/volume] in Serum or PlasmaOrdered By: Jacky Alarcon on 03-10-2023 ALP [Catalytic activity/Vol] 71 U/L 34-104 [facility] Aspartate aminotransferase [ Enzymatic activity/volume] in Serum or PlasmaOrdered By: Jacky Alarcon on 03-10-2023 AST [Catalytic activity/Vol] 17 U/L 13-39 [facility] Automated erythrocytes count in urine sediment (number/area)Ordered By: Jacky Alarcon on 03-10-2023 RBC Auto (Urine sed) [#/Area] 50-100 [HPF] 0-4 [facility] Automated leukocytes count i n urine sediment (number/area)Ordered By: Jacky Alarcon on 03-10-2023 WBC Auto (Urine sed) [#/Area] 5-9 [HPF] 0-4 [facility] Basic Metabolic Panelon 12 Anion gap [Moles/Vol] 16.5 mmol/L High 6.0-15.0 [facility] Comment on above: Performed By: #### L IPASE, HCGQNT, HEPATIC, BMP, CBC #### [facility] [address] Calcium [Mass/Vol] 9.3 mg/dL Normal 8.6-10.3 [facility] Comment on above: Performed By: #### L IPASE, HCGQNT, HEPATIC, BMP, CBC #### [facility] [address] [place] [address] [place] Chloride [Moles/Vol] 101 mmol/L Normal 98-107 [facility] Comment on above: Performed By: #### L IPASE, HCGQNT, HEPATIC, BMP, CBC #### [facility] [address] [place] [address] [place] CO2 [Moles/Vol] 18.8 mmol/L Low 21.0-31.0 [facility] Comment on above: Performed By: #### L IPASE, HCGQNT, HEPATIC, BMP, CBC #### [facility] [address] [place] [address] [place] Creatinine [Mass/Vol] 0.64 mg/dL Normal 0.60-1.20 [facility] Comment on above: Performed By: #### L IPASE, HCGQNT, HEPATIC, BMP, CBC #### [facility] [address] [place] [address] [place] Creatinine Clr Calc Pharmacy 148.58 Normal [facility] Comment on above: Performed By: #### L IPASE, HCGQNT, HEPATIC, BMP, CBC #### [facility] [address] [place] [address] [place] GFR/1.73 sq M.predicted MDRD (S/P/Bld) [Vol rate/Area] mL/min/{1.73_m2} Normal [facility] Comment on above: Performed By: #### L IPASE, HCGQNT, HEPATIC, BMP, CBC #### [facility] [address] Glucose [Mass/Vol] 83 mg/dL Normal 70-100 [facility] Comment on above: Result Comment: [place] Glucose Reference Range is dependent on time and content of last meal. Glucose of more than 200 mg/dL in a nonstressed, ambulatory subject supports the diagnosis of Diabetes Mellitus. ADA recommended reference range Performed By: #### L IPASE, HCGQNT, HEPATIC, BMP, CBC #### [facility] [address] Potassium [Moles/Vol] 3.3 mmol/L Low 3.5-5.1 [facility] Comment on above: Performed By: #### L IPASE, HCGQNT, HEPATIC, BMP, CBC #### [address] Sodium [Moles/Vol] 133 mmol/L Low 136-145 [facility] Comment on above: Performed By: #### L IPASE, HCGQNT, HEPATIC, BMP, CBC #### [facility] [address] [place] [address] Urea nitrogen [Mass/Vol] 6 mg/dL Low 7-25 [facility] Comment on above: Performed By: #### L IPASE, HCGQNT, HEPATIC, BMP, CBC #### [facility] [address] [place] [address] Basophils Auto (Bld) [#/Vol] Ordered By: Jacky Alarcon on 03-10-2023 Basophils (Bld) [#/Vol] 0.1 10*3/uL 0.0-0.2 [facility] Basophils/100 WBC Auto (Bld) Ordered By: Jacky Alarcon on 03-10-2023 Basophils/100 WBC (Bld) 0.4 % . [facility] Bilirubin Test strip Ql (U)O rdered By: Jacky Alarcon on 03-10-2023 Bilirubin Ql (U) Negative Negative [facility] Bilirubin.direct [Mass/volum e] in Serum or PlasmaOrdered By: Jacky Alarcon on 03-10-2023 Bilirubin.direct [Mass/Vol] 0.40 mg/dL 0.03-0.18 [facility] Bilirubin.total [Mass/volume ] in Serum or PlasmaOrdered By: Jacky Alarcon on 03-10-2023 Bilirubin [Mass/Vol] 1.2 mg/dL 0.3-1.0 [facility] Calcium [Mass/volume] in Ser um or PlasmaOrdered By: Jacky Alarcon on 03-10-2023 Calcium [Mass/Vol] 9.3 mg/dL 8.6-10.3 [facility] Carbon dioxide, total [Moles /volume] in Serum or PlasmaOrdered By: Jacky Alarcon on 03-10-2023 CO2 [Moles/Vol] 18.8 mmol/L 21.0-31.0 [facility] Chloride [Moles/volume] in S rahul or PlasmaOrdered By: Jacky Alarcon on 03-10-2023 Chloride [Moles/Vol] 101 mmol/L 98-107 [facility] Choriogonadotropin.beta subu nit [Units/volume] in Serum or PlasmaOrdered By: Jacky Alarcon on 03-10-2023 [place] [address].00 m[IU]/mL [facility] Comment on above: Approximate Approxim ate hCG Gestational Age Range (mIU/ml) (weeks)0.2-1 5-50 1-2 50-500 2-3 100-5,000 3-4 500-10,000 4-5 1,000-50,000 5-6 10,000-100,000 6-8 15,000-200,000 8-12 10,000-100,000 Color Auto (U)Ordered By: Corinna Alarcon on 03-10-2023 Color (U) Dark yellow Yellow [facility] Complete Blood Count Auto Di ffon 03-10-2023 Basophils (Bld) [#/Vol] 0.1 10*3/uL Normal 0.0-0.2 [facility] Comment on above: Result Comment: PERF ORMED BY: [facility] [address] [place] [address] PATHOLOGIST SHIPPING ROOM SUPERVISOR ANDRÉS MACEDO M.D. Performed By: #### L IPASE, HCGQNT, HEPATIC, BMP, CBC #### [address] Basophils/100 WBC (Bld) 0.4 % Normal . [facility] Comment on above: Performed By: #### L IPASE, HCGQNT, HEPATIC, BMP, CBC #### [address] Eosinophils (Bld) [#/Vol] 0.1 10*3/uL Normal 0.0-0.45 [facility] Comment on above: Performed By: #### L IPASE, HCGQNT, HEPATIC, BMP, CBC #### [address] Eosinophils/100 WBC (Bld) 0.5 % Normal . [facility] Comment on above: Performed By: #### L IPASE, HCGQNT, HEPATIC, BMP, CBC #### [address] Erythrocyte distribution width (RBC) [Ratio] 13.3 % Normal 11.9-15.3 [facility] Comment on above: Performed By: #### L IPASE, HCGQNT, HEPATIC, BMP, CBC #### [address] Hematocrit (Bld) [Volume fraction] 47.2 % High 34.0-46.4 [facility] Comment on above: Performed By: #### L IPASE, HCGQNT, HEPATIC, BMP, CBC #### [address] Hemoglobin (Bld) [Mass/Vol] 16.5 g/dL High 11.8-15.4 [facility] Comment on above: Performed By: #### L IPASE, HCGQNT, HEPATIC, BMP, CBC #### [address] Lymphocytes (Bld) [#/Vol] 1.9 10*3/uL Normal 1.00-4.8 [facility] Comment on above: Performed By: #### L IPASE, HCGQNT, HEPATIC, BMP, CBC #### [address] Lymphocytes/100 WBC (Bld) 11.6 % Normal . [facility] Comment on above: Performed By: #### L IPASE, HCGQNT, HEPATIC, BMP, CBC #### [address] MCH (RBC) [Entitic mass] 30.8 pg Normal 24.7-34.3 [facility] Comment on above: Performed By: #### L IPASE, HCGQNT, HEPATIC, BMP, CBC #### [address] MCV (RBC) [Entitic vol] 87.8 fL Normal 80-100 [facility] Comment on above: Performed By: #### L IPASE, HCGQNT, HEPATIC, BMP, CBC #### [address] Mean Corpuscular HGB Conc 35.0 g/dL Normal 32.0-35.0 [facility] Comment on above: Performed By: #### L IPASE, HCGQNT, HEPATIC, BMP, CBC #### [address] Monocytes (Bld) [#/Vol] 1.4 10*3/uL High 0.0-0.8 [facility] Comment on above: Performed By: #### L IPASE, HCGQNT, HEPATIC, BMP, CBC #### [place] [address] [place] Monocytes/100 WBC (Bld) 16.05 % Normal 0.00-20.00 [facility] Comment on above: Performed By: #### L IPASE, HCGQNT, HEPATIC, BMP, CBC #### [address] Monocytes/100 WBC (Bld) 8.8 % Normal . [facility] Comment on above: Performed By: #### L IPASE, HCGQNT, HEPATIC, BMP, CBC #### [place] [address] [place] Neutrophils (Bld) [#/Vol] 12.6 10*3/uL High 1.8-7.7 [facility] Comment on above: Performed By: #### L IPASE, HCGQNT, HEPATIC, BMP, CBC #### [place] [address] [place] Neutrophils/100 WBC (Bld) 78.7 % Normal . [facility] Comment on above: Performed By: #### L IPASE, HCGQNT, HEPATIC, BMP, CBC #### [address] NRBC% 0.1 /100{WBC} Normal 0-0.5 [facility] Comment on above: Performed By: #### L IPASE, HCGQNT, HEPATIC, BMP, CBC #### [address] Platelet mean volume (Bld) [Entitic vol] 9.7 fL Normal 6.3-10.7 [facility] Comment on above: Performed By: #### L IPASE, HCGQNT, HEPATIC, BMP, CBC #### [place] [address] [place] Platelets (Bld) [#/Vol] 263 10*3/uL Normal 150-450 [facility] Comment on above: Performed By: #### L IPASE, HCGQNT, HEPATIC, BMP, CBC #### [place] [address] [place] RBC (Bld) [#/Vol] 5.37 10*6/uL High 3.60-5.00 [facility] Comment on above: Performed By: #### L IPASE, HCGQNT, HEPATIC, BMP, CBC #### [place] [address] [place] WBC (Bld) [#/Vol] 16.0 10*3/uL High 3.8-11.6 [facility] Comment on above: Performed By: #### L IPASE, HCGQNT, HEPATIC, BMP, CBC #### [facility] [address] Creatinine [Mass/volume] in Serum or PlasmaOrdered By: Jacky Alarcon on 03-10-2023 Creatinine [Mass/Vol] 0.64 mg/dL 0.60-1.20 [facility] Dipstick and Microscopicon 1 05-11-2022 Appearance (U) Turbid Critically abnormal Clear [facility] Comment on above: Order Comment: Name Collection Type:: Clean-Voided Midstream Performed By: #### A DDONUAPLUS, CUU #### [facility] [address] [place] [address] [place] Bacteria,Urine Rare High None Seen [facility] Comment on above: Order Comment: Name Collection Type:: Clean-Voided Midstream Performed By: #### A DDONUAPLUS, CUU #### [facility] [address] [place] [address] [place] Bilirubin,Urine Negative Normal Negative [facility] Comment on above: Order Comment: Name Collection Type:: Clean-Voided Midstream Performed By: #### A DDONUAPLUS, CUU #### [facility] [address] [place] [address] [place] Color (U) Dark Yellow Critically abnormal Yellow [facility] Comment on above: Order Comment: Name Collection Type:: Clean-Voided Midstream Performed By: #### A DDONUAPLUS, CUU #### [facility] [address] [place] [address] [place] Glucose Ql (U) Normal Normal Normal [facility] Comment on above: Order Comment: Name Collection Type:: Clean-Voided Midstream Performed By: #### A DDONUAPLUS, CUU #### [facility] [address] [place] [address] [place] Hyaline Casts,Urine 9-19 High 0-8 [facility] Comment on above: Order Comment: Name Collection Type:: Clean-Voided Midstream Result Comment: PERF ORMED BY: [address] [place] [address] PATHOLOGIST SHIPPING ROOM SUPERVISOR ANDRÉS MACEDO M.D. Performed By: #### A DDONUAPLUS, CUU #### [address] Ketones Ql (U) 4+ High Negative [facility] Comment on above: Order Comment: Name Collection Type:: Clean-Voided Midstream Performed By: #### A DDONUAPLUS, CUU #### [address] Leukocyte esterase Test strip Ql (U) 1+ High Negative [facility] Comment on above: Order Comment: Name Collection Type:: Clean-Voided Midstream Performed By: #### A DDONUAPLUS, CUU #### [address] Nitrite,Urine Negative Normal Negative [facility] Comment on above: Order Comment: Name Collection Type:: Clean-Voided Midstream Performed By: #### A DDONUAPLUS, CUU #### [address] Occult Blood,Urine 3+ High Negative [facility] Comment on above: Order Comment: Name Collection Type:: Clean-Voided Midstream Result Comment: PERF ORMED BY: [place] [address] PATHOLOGIST SHIPPING ROOM SUPERVISOR ANDRÉS MACEDO M.D. Performed By: #### A DDONUAPLUS, CUU #### [address] Othe Crystals,Urine Normal [facility] Comment on above: Order Comment: Name Collection Type:: Clean-Voided Midstream Result Comment: sulf a crystals Performed By: #### A DDONUAPLUS, CUU #### [address] pH (U) 6.5 [pH] Normal 5.0-9.0 [facility] Comment on above: Order Comment: Name Collection Type:: Clean-Voided Midstream Performed By: #### A DDONUAPLUS, CUU #### [address] Protein (U) [Mass/Vol] 100 mg/dL High Negative [facility] Comment on above: Order Comment: Name Collection Type:: Clean-Voided Midstream Performed By: #### A DDONUAPLUS, CUU #### [address] RBC,Urine 50-100 High 0-4 [facility] Comment on above: Order Comment: Name Collection Type:: Clean-Voided Midstream Performed By: #### A DDONUAPLUS, CUU #### [address] Specificy [place],Urine 1.029 Normal 1.001-1.03 0 [facility] Comment on above: Order Comment: Name Collection Type:: Clean-Voided Midstream Performed By: #### A DDONUAPLUS, CUU #### [address] Squamous Epithelial Cell,Urine 1-2 Normal 0-2 [facility] Comment on above: Order Comment: Name Collection Type:: Clean-Voided Midstream Performed By: #### A DDONUAPLUS, CUU #### [address] Urobilinogen,Urine Normal Normal Normal [facility] Comment on above: Order Comment: Name Collection Type:: Clean-Voided Midstream Performed By: #### A DDONUAPLUS, CUU #### [address] WBC,Urine 5-9 High 0-4 [facility] Comment on above: Order Comment: Name Collection Type:: Clean-Voided Midstream Performed By: #### A DDONUAPLUS, CUU #### [address] Eosinophils Auto (Bld) [#/Vo l]Ordered By: Jacky Alarcon on 03-10-2023 Eosinophils (Bld) [#/Vol] 0.1 10*3/uL 0.0-0.45 [facility] Eosinophils/100 WBC Auto (Bl d)Ordered By: Jacky Alarcon on 03-10-2023 Eosinophils/100 WBC (Bld) 0.5 % . [facility] Erythrocyte distribution wid th Auto (RBC) [Ratio]Ordered By: Jacky Alarcon on 03-10-2023 Erythrocyte distribution width (RBC) [Ratio] 13.3 % 11.9-15.3 [facility] Globulin Calc (S) [Mass/Vol] Ordered By: Jacky Alarcon on 03-10-2023 Globulin (S) [Mass/Vol] 3.5 g/dL [facility] Glucose [Mass/volume] in Ser um or PlasmaOrdered By: Jacky Alarcon on 03-10-2023 Glucose [Mass/Vol] 83 mg/dL 70-100 [facility] Comment on above: ADA recommended refe rence rangeRandom Glucose Reference Range is dependent on time and content of last meal. Glucose of more than 200 mg/dL in a nonstressed, ambulatory subject supports the diagnosis of Diabetes Mellitus. HCG ( test) IA.rapi d Ql (U)Ordered By: Jacky Alarcon on 03-10-2023 HCG ( test) Ql (U) Positive [facility] HCG,Quantitativeon 3 HCG,Quantitative 35632.00 m[iU]/mL Normal F [facility] Comment on above: Result Comment: Appr oximate Approximate hCG Gestational Age Range (mIU/ml) (weeks) 0.2-1 5-50 1-2 50-500 2-3 100-5,000 3-4 500-10,000 4-5 1,000-50,000 5-6 10,000-100,000 6-8 15,000-200,000 8-12 10,000-100,000 PERFORMED BY: [place] [address] PATHOLOGIST SHIPPING ROOM SUPERVISOR ANDRÉS MACEDO M.D. Performed By: #### L IPASE, HCGQNT, HEPATIC, BMP, CBC #### [address] HCG,Urineon 03-10-2023 Beta HCG ( test) Ql (U) Positive High [facility] Comment on above: Result Comment: PERF ORMED BY: [place] [address] PATHOLOGIST SHIPPING ROOM SUPERVISOR ANDRÉS MACEDO M.D. Performed By: #### U HCG #### [facility] [address] [place] [address] Hematocrit Auto (Bld) [Volum e fraction]Ordered By: Jacky Alarcon on 03-10-2023 Hematocrit (Bld) [Volume fraction] 47.2 % 34.0-46.4 [facility] Hemoglobin [Mass/volume] in BloodOrdered By: Jacky Alarcon on 03-10-2023 Hemoglobin (Bld) [Mass/Vol] 16.5 g/dL 11.8-15.4 [facility] Hepatic Panelon 03-10-2023 Albumin [Mass/Vol] 4.5 g/dL Normal 3.5-5.7 [facility] Comment on above: Performed By: #### L IPASE, HCGQNT, HEPATIC, BMP, CBC #### [facility] [address] [place] [address] [place] Albumin/Globulin [Mass ratio] 1.3 {ratio} Normal [facility] Comment on above: Performed By: #### L IPASE, HCGQNT, HEPATIC, BMP, CBC #### [facility] [address] [place] [address] [place] ALP [Catalytic activity/Vol] 71 U/L Normal 34-104 [facility] Comment on above: Performed By: #### L IPASE, HCGQNT, HEPATIC, BMP, CBC #### [facility] [address] [place] [address] [place] ALT [Catalytic activity/Vol] 36 U/L Normal 7-52 [facility] Comment on above: Performed By: #### L IPASE, HCGQNT, HEPATIC, BMP, CBC #### [facility] [address] [place] [address] [place] AST [Catalytic activity/Vol] 17 U/L Normal 13-39 [facility] Comment on above: Performed By: #### L IPASE, HCGQNT, HEPATIC, BMP, CBC #### [facility] [address] Bilirubin [Mass/Vol] 1.2 mg/dL High 0.3-1.0 [facility] Comment on above: Performed By: #### L IPASE, HCGQNT, HEPATIC, BMP, CBC #### [facility] [address] Bilirubin,Indirect 0.8 mg/dL Normal [facility] Comment on above: Performed By: #### L IPASE, HCGQNT, HEPATIC, BMP, CBC #### [facility] [address] Bilirubin.indirect [Mass/Vol] 0.40 mg/dL High 0.03-0.18 [facility] Comment on above: Performed By: #### L IPASE, HCGQNT, HEPATIC, BMP, CBC #### [address] Globulin (S) [Mass/Vol] 3.5 g/dL Normal [facility] Comment on above: Performed By: #### L IPASE, HCGQNT, HEPATIC, BMP, CBC #### [address] Protein [Mass/Vol] 8.0 g/dL Normal 6.4-8.9 [facility] Comment on above: Performed By: #### L IPASE, HCGQNT, HEPATIC, BMP, CBC #### [facility] [address] [place] [address] Ketones Auto test strip (U) [Mass/Vol]Ordered By: Jacky Alarcon on 03-10-2023 Ketones (U) [Mass/Vol] 4+ Negative [facility] - UrinalysisOrder ed By: Jacky Alarcon on 03-10-2023 Hyaline casts LM Ql (Urine sed) 9-19 [LPF] 0-8 [facility] Leukocytes [#/volume] correc anabell for nucleated erythrocytes in Blood by Automated counOrdered By: Jacky Alarcon on 03-10-2023 WBC corrected for nucl RBC Auto (Bld) [#/Vol] 16.0 10*3/uL 3.8-11.6 [facility] Lipaseon 03-10-2023 Lipase [Catalytic activity/Vol] 35.0 U/L Normal 11.0-82.0 [facility] Comment on above: Result Comment: PERF ORMED BY: [facility] [address] [id number] PATHOLOGIST SHIPPING ROOM SUPERVISOR ANDRÉS MACEDO M.D. Performed By: #### L IPASE, HCGQNT, HEPATIC, BMP, CBC #### [facility] [address] Lipase [Enzymatic activity/v olume] in Serum or PlasmaOrdered By: Jacky Alarcon on 03-10-2023 Lipase [Catalytic activity/Vol] 35.0 U/L 11.0-82.0 [facility] Lymphocytes Auto (Bld) [#/Vo l]Ordered By: Jacky Alarcon on 03-10-2023 Lymphocytes (Bld) [#/Vol] 1.9 10*3/uL 1.00-4.8 [facility] Lymphocytes/100 WBC Auto (Bl d)Ordered By: Jacky Alarcon on 03-10-2023 Lymphocytes/100 WBC (Bld) 11.6 % . [facility] MCH Auto (RBC) [Entitic mass ]Ordered By: Jacky Alarcon on 03-10-2023 MCH (RBC) [Entitic mass] 30.8 pg 24.7-34.3 [facility] MCHC Auto (RBC) [Mass/Vol]Or dered By: Jacky Alarcon on 03-10-2023 MCHC (RBC) [Mass/Vol] 35.0 g/dL 32.0-35.0 [facility] MCV Auto (RBC) [Entitic vol] Ordered By: Jacky Alarcon on 03-10-2023 MCV (RBC) [Entitic vol] 87.8 fL 80-100 [facility] Monocyte distribution width [Entitic volume] in Blood by AutomatedOrdered By: Jacky Alarcon on 03-10-2023 Monocyte distribution width Auto (Bld) [Entitic vol] 16.05 % 0.00-20.00 [facility] Monocytes Auto (Bld) [#/Vol] Ordered By: Jacky Alarcon on 03-10-2023 Monocytes (Bld) [#/Vol] 1.4 10*3/uL 0.0-0.8 [facility] Monocytes/100 WBC Auto (Bld) Ordered By: Jacky Alarcon on 03-10-2023 Monocytes/100 WBC (Bld) 8.8 % . [facility] Neutrophils Auto (Bld) [#/Vo l]Ordered By: Jacky Alarcon on 03-10-2023 Neutrophils (Bld) [#/Vol] 12.6 10*3/uL 1.8-7.7 [facility] Neutrophils/100 WBC Auto (Bl d)Ordered By: Jacky Alarcon on 03-10-2023 Neutrophils/100 WBC (Bld) 78.7 % . [facility] Nitrite Test strip Ql (U)Ord ered By: Jacky Alarcon on 03-10-2023 Nitrite Ql (U) Negative Negative [facility] No Panel InformationOrdered By: Jacky Alarcon on 03-10-2023 Estimated GFR (CKD-EPI) > 60.0 mL/Min [facility] Creatinine Clearance (Chem 148.58 [facility] Nucleated erythrocytes [Pres ence] in Blood by Automated countOrdered By: Jacky Alarcon on 03-10-2023 Nucleated RBC Auto Ql (Bld) 0.1 /100{WBC} 0-0.5 [facility] Platelet mean volume Auto (B ld) [Entitic vol]Ordered By: Jacky Alarcon on 03-10-2023 Platelet mean volume (Bld) [Entitic vol] 9.7 fL 6.3-10.7 [facility] Platelets Auto (Bld) [#/Vol] Ordered By: Jacky Alarcon on 03-10-2023 Platelets (Bld) [#/Vol] 263 10*3/uL 150-450 [facility] Potassium [Moles/volume] in Serum or PlasmaOrdered By: Jacky Alarcon on 03-10-2023 Potassium [Moles/Vol] 3.3 mmol/L 3.5-5.1 [facility] Protein Auto test strip (U) [Mass/Vol]Ordered By: Jacky Alarcon on 03-10-2023 Protein (U) [Mass/Vol] 100 mg/dL Negative Fi [facility] Protein [Mass/volume] in Ser um or PlasmaOrdered By: Jacky Alarcon on 03-10-2023 Protein [Mass/Vol] 8.0 g/dL 6.4-8.9 [facility] RBC Auto (Bld) [#/Vol]Ordere d By: Jacky Alarcon on 03-10-2023 RBC (Bld) [#/Vol] 5.37 10*6/uL 3.60-5.00 [facility] Serum or plasma albumin/glob ulin mass ratioOrdered By: Jacky Alracon on 03-10-2023 Albumin/Globulin [Mass ratio] 1.3 {ratio} [facility] Serum or plasma anion gap de terminationOrdered By: Jacky Alarcon on 03-10-2023 Anion gap [Moles/Vol] 16.5 mmol/L 6.0-15.0 [facility] Serum or plasma non-glucuron idated bilirubin measurement (mass/volume)Ordered By: Jacky Alarcon on 03-10-2023 Bilirubin.indirect [Mass/Vol] 0.8 mg/dL [facility] Sodium [Moles/volume] in Ser um or PlasmaOrdered By: Jacky Alarcon on 03-10-2023 Sodium [Moles/Vol] 133 mmol/L 136-145 [facility] Specific gravity Auto test s trip (U) [Rel density]Ordered By: Jacky Alarcon on 03-10-2023 Specific gravity (U) [Rel density] 1.029 1.001-1.03 0 [facility] Squamous epithelial cells de tection in urine sediment by light microscopyOrdered By: Jacky Alarcon on 03-10-2023 Epithelial cells.squamous LM Ql (Urine sed) 1-2 [HPF] 0-2 [facility] Urea nitrogen [Mass/volume] in Serum or PlasmaOrdered By: Jacky Alarcon on 03-10-2023 Urea nitrogen [Mass/Vol] 6 mg/dL 7-25 [facility] Urine Cultureon 03-10-2023 Bacteria identified Cx Nom (U) >100,000 colonies/ml mixed bacterial skin contaminants 2 Days PERFORMED BY: [address] [address] [place] [address] PATHOLOGIST SHIPPING ROOM SUPERVISOR ANDRÉS MACEDO M.D. Normal [facility] Comment on above: Performed By: #### A DDONUAPLUS, CUU #### [facility] [address] Urine bacteria detection by automated methodOrdered By: Jacky Alarcon on 03-10-2023 Bacteria Auto Ql (U) Rare None Seen [facility] Urine clarity by refractomet ry automatedOrdered By: Jacky Alarcon on 03-10-2023 Clarity Refractometry automated (U) Turbid Clear [facility] Urine glucose measurement by automated test strip (mass/volume)Ordered By: Jacky Alarcon on 03-10-2023 Glucose Auto test strip (U) [Mass/Vol] Normal mg/dL Normal [facility] Urine hemoglobin detection b y automated test stripOrdered By: Jacky Alarcon on 03-10-2023 Hemoglobin Auto test strip Ql (U) 3+ Negative [facility] Urine leukocyte esterase det ection by automated test stripOrdered By: Jacky Alarcon on 03-10-2023 Leukocyte esterase Auto test strip Ql (U) 1+ Negative [facility] Urine sediment crystal ident ification by light microscopyOrdered By: Jacky Alarcon on 03-10-2023 Crystals LM Nom (Urine sed) See comment [facility] Comment on above: sulfa crystals Urobilinogen Auto test strip (U) [Mass/Vol]Ordered By: Jacky Alarcon on 03-10-2023 Urobilinogen (U) [Mass/Vol] Normal mg/dL Normal [facility] WBC Auto (Bld) [#/Vol]Ordere d By: Jacky Alarcon on 03-10-2023 WBC (Bld) [#/Vol] 16.0 10*3/uL 3.8-11.6 [facility] pH Auto test strip (U)Ordere d By: Jacky Alarcon on 03-10-2023 pH (U) 6.5 [pH] 5.0-9.0 [facility] CBC AUTO DIFFon 07-30-2022 BASO # 0.1 103/ul Normal 0.0-0.1 [facility] Comment on above: Performed By: #### G TT3P #### [facility] [address] [address] [address] Jackelyn Celestin Basophils/100 WBC (Bld) 0.6 % Normal 0.2-2.0 [facility] Comment on above: Performed By: #### G TT3P #### [facility] [address] [place] [address] Dr. Jackelyn Celestin EO # 0.2 103/ul Normal 0.0-0.7 [facility] Comment on above: Performed By: #### G TT3P #### [facility] [address] [place] [address] Dr. Jackelyn Celestin Eosinophils/100 WBC (Bld) 1.5 % Normal 0.9-7.0 [facility] Comment on above: Performed By: #### G TT3P #### [facility] [address] [place] [address] Dr. Jackelyn Celestin Erythrocyte distribution width (RBC) [Ratio] 14.5 % Normal 11.0-15.0 [facility] Comment on above: Performed By: #### G TT3P #### [facility] [address] [place] [address] Dr. Jackelyn Celestin Hematocrit (Bld) [Volume fraction] 33.9 % Critically low 36.0-48.0 [facility] Comment on above: Performed By: #### G TT3P #### [facility] [address] [place] [address] Dr. Jackelyn Celestin Hemoglobin (Bld) [Mass/Vol] 11.0 g/dL Critically low 12.0-16.0 [facility] Comment on above: Performed By: #### G TT3P #### [facility] [address] [place] [address] Dr. Jackelyn Celestin IG # 0.13 10e3/ul Critically high 0.00-0.03 [facility] Comment on above: Performed By: #### G TT3P #### [facility] [address] [place] [address] Dr. Jackelyn Celestin IG % 1.1 % Critically high 0.0-0.5 [facility] Comment on above: Performed By: #### G TT3P #### [facility] [address] [place] [address] Dr. Jackelyn Celestin LYMPH # 2.2 103/ul Normal 1.2-3.8 [facility] Comment on above: Performed By: #### G TT3P #### [facility] [address] [place] [address] Dr. Jackelyn Celestin Lymphocytes/100 WBC (Bld) 17.9 % Critically low 20.5-60.0 [facility] Comment on above: Performed By: #### G TT3P #### [facility] [address] [place] [address] Dr. Jackelyn Celestin MANUAL DIFF REQ NO Normal [facility] Comment on above: Performed By: #### G TT3P #### [facility] [address] [place] [address] Dr. Jackelyn Celestin MCH (RBC) [Entitic mass] 28.6 pg Normal 26.7-34.0 [facility] Comment on above: Performed By: #### G TT3P #### [facility] [address] [place] [address] Dr. Jackelyn Celestin MCHC (RBC) [Mass/Vol] 32.4 g/dL Normal 29.9-35.2 [facility] Comment on above: Performed By: #### G TT3P #### [facility] [address] [place] [address] Dr. Jackelyn Celestin MCV (RBC) [Entitic vol] 88.1 fL Normal 81.0-99.0 [facility] Comment on above: Performed By: #### G TT3P #### [facility] [address] [place] [address] Dr. Jackelyn Celestin MONO # 0.8 103/ul Normal 0.3-0.8 [facility] Comment on above: Performed By: #### G TT3P #### [facility] [address] [place] [address] Dr. Jackelyn Celestin Monocytes/100 WBC (Bld) 6.9 % Normal 1.7-12.0 [facility] Comment on above: Performed By: #### G TT3P #### [facility] [address] [place] [address] Dr. Jackelyn Celestin NEUT # 8.7 103/ul Critically high 1.4-6.5 [facility] Comment on above: Performed By: #### G TT3P #### [facility] [address] [place] [address] Dr. Jackelyn Celestin Neutrophils/100 WBC (Bld) 72.0 % Normal 43.0-75.0 [facility] Comment on above: Performed By: #### G TT3P #### [facility] [address] [place] [address] Dr. Jackelyn Celestin Platelet mean volume (Bld) [Entitic vol] 11.5 fL Normal 9.5-13.5 [facility] Comment on above: Performed By: #### G TT3P #### [facility] [address] [place] [address] Dr. Jackelyn Celestin PLT 146 103/ul Critically low 150-450 [facility] Comment on above: Performed By: #### G TT3P #### [facility] [address] [place] [address] Dr. Jackelyn Celestin RBC 3.85 106/ul Critically low 4.20-5.40 [facility] Comment on above: Performed By: #### G TT3P #### [facility] [address] [place] [address] Dr. Jackelyn Celestin WBC 12.1 103/ul Critically high 4.0-11.0 [facility] Comment on above: Performed By: #### G TT3P #### [facility] [address] [place] [address] Dr. Jackelyn Celestin CBC AUTO DIFFon 07-29-2022 BASO # 0.0 103/ul Normal 0.0-0.1 [facility] Comment on above: Performed By: #### 4 [id number] #### [facility] [address] [place] [address] Dr. Jackelyn Celestin Basophils/100 WBC (Bld) 0.4 % Normal 0.2-2.0 [facility] Comment on above: Performed By: #### 4 [id number] #### [facility] [address] [place] [address] Dr. Jackelyn Celestin EO # 0.2 103/ul Normal 0.0-0.7 [facility] Comment on above: Performed By: #### 4 [id number] #### [facility] [address] [place] [address] Dr. Jackelyn Celestin Eosinophils/100 WBC (Bld) 1.4 % Normal 0.9-7.0 [facility] Comment on above: Performed By: #### 4 [id number] #### [facility] [address] [place] [address] Dr. Jackelyn Celestin Erythrocyte distribution width (RBC) [Ratio] 14.1 % Normal 11.0-15.0 [facility] Comment on above: Performed By: #### [id number] #### [facility] [address] [place] [address] Dr. Jackelyn Celestin Hematocrit (Bld) [Volume fraction] 36.0 % Normal 36.0-48.0 [facility] Comment on above: Performed By: #### 4 [id number] #### [facility] [address] [place] [address] Dr. Jackelyn Celestin Hemoglobin (Bld) [Mass/Vol] 12.2 g/dL Normal 12.0-16.0 [facility] Comment on above: Performed By: #### 4 [id number] #### [facility] [address] [place] [address] Dr. Jackelyn Celestin IG # 0.10 10e3/ul Critically high 0.00-0.03 [facility] Comment on above: Performed By: #### 4 [id number] #### [facility] [address] [place] [address] Dr. Jackelyn Celestin IG % 0.9 % Critically high 0.0-0.5 [facility] Comment on above: Performed By: #### 4 [id number] #### [facility] [address] [place] [address] Dr. Jackelyn Celestin LYMPH # 1.9 103/ul Normal 1.2-3.8 [facility] Comment on above: Performed By: #### 4 [id number] #### [facility] [address] [place] [address] Dr. Jackelyn Celestin Lymphocytes/100 WBC (Bld) 17.7 % Critically low 20.5-60.0 [facility] Comment on above: Performed By: #### 4 [id number] #### [facility] [address] [place] [address] Dr. Jackelyn Celestin MANUAL DIFF REQ NO Normal [facility] Comment on above: Performed By: #### 4 [id number] #### [facility] [address] [place] [address] Dr. Jackelyn Celestin MCH (RBC) [Entitic mass] 28.8 pg Normal 26.7-34.0 [facility] Comment on above: Performed By: #### 4 [id number] #### [facility] [address] [place] [address] Dr. Jackelyn Celestin MCHC (RBC) [Mass/Vol] 33.9 g/dL Normal 29.9-35.2 [facility] Comment on above: Performed By: #### 4 [id number] #### [facility] [address] [place] [address] Dr. Jackelyn Celestin MCV (RBC) [Entitic vol] 84.9 fL Normal 81.0-99.0 [facility] Comment on above: Performed By: #### 4 [id number] #### [facility] [address] [place] [address] Dr. Jackelyn Celestin MONO # 0.9 103/ul Critically high 0.3-0.8 [facility] Comment on above: Performed By: #### 4 [id number] #### [facility] [address] [place] [address] Dr. Jackelyn Celestin Monocytes/100 WBC (Bld) 8.4 % Normal 1.7-12.0 [facility] Comment on above: Performed By: #### 4 [id number] #### [facility] [address] [place] [address] Dr. Jackelyn Celestin NEUT # 7.7 103/ul Critically high 1.4-6.5 [facility] Comment on above: Performed By: #### 4 [id number] #### [facility] [address] [place] [address] Dr. Jackelyn Celestin Neutrophils/100 WBC (Bld) 71.2 % Normal 43.0-75.0 [facility] Comment on above: Performed By: #### 4 [id number] #### [facility] [address] [place] [address] Dr. Jackelyn Celestin Platelet mean volume (Bld) [Entitic vol] 10.9 fL Normal 9.5-13.5 [facility] Comment on above: Performed By: #### 4 [id number] #### [facility] [address] [place] [address] Dr. Jackelyn Celestin PLT 170 103/ul Normal 150-450 [facility] Comment on above: Performed By: #### 4 [id number] #### [facility] [address] [place] [address] Dr. Jackelyn Celestin RBC 4.24 106/ul Normal 4.20-5.40 [facility] Comment on above: Performed By: #### 4 [id number] #### [facility] [address] [place] [address] Dr. Jackelyn Celestin WBC 10.8 103/ul Normal 4.0-11.0 [facility] Comment on above: Performed By: #### 4 [id number] #### [facility] [address] [place] [address] Dr. Jackelyn Celestin DRUG SCREEN RAPID (URINE)on 07-29-2022 AMP Negative Normal NEGATIVE [facility] Comment on above: Performed By: #### 4 [id number] #### [facility] [address] [place] [address] Dr. Jackelyn Celestin BAR Negative Normal NEGATIVE [facility] Comment on above: Performed By: #### 4 [id number] #### [facility] [address] [place] [address] Dr. Jackelyn Celestin BUP Negative Normal NEGATIVE [facility] Comment on above: Performed By: #### 4 [id number] #### [facility] [address] [place] [address] Dr. Jackelyn Celestin BZO Negative Normal NEGATIVE [facility] Comment on above: Performed By: #### 4 [id number] #### [facility] [address] [place] [address] Dr. Jackelyn Celestin HOMERO Negative Normal NEGATIVE [facility] Comment on above: Performed By: #### 4 [id number] #### [facility] [address] [place] [address] Dr. Jackelyn Celestin CUT-OFFS SEE BELOW Normal [facility] Comment on above: Result Comment: AMP (Amphetamine): 500ng/mL, BAR (Barbituates): 200 ng/mL, BZO (Benzodiazepines): 150 ng/mL, BUP (Buprenorphine): 10 ng/mL, HOMERO (Cocaine): 150 ng/mL, mAMP (Methamphetamine): 500 ng/mL, MTD (Methadone): 200 ng/mL, OPI (Opiates): 100 ng/mL, OXY (Oxycodone): 100 ng/mL, PCP (Phencyclidine): 25 ng/mL, PPX (Propoxyphene): 300 ng/mL, THC (Cannabinoids): 50 ng/mL, TCA (Trycyclic Antidepressants): 300 ng/mL Performed By: #### 4 [id number] #### [facility] [address] [place] [address] Dr. Jackelyn Celestin DRUG CUT HEADER DRUG CLASS TEST SYST EM CUT-OFF CONCENTRATIONS ARE FOLLOWS: Normal [facility] Comment on above: Performed By: #### 4 [id number] #### [facility] [address] [place] [address] Dr. Jackelyn Celestin mAMP Negative Normal NEGATIVE [facility] Comment on above: Performed By: #### 4 [id number] #### [facility] [address] [place] [address] Dr. Jackelyn Celestin MTD Negative Normal NEGATIVE [facility] Comment on above: Performed By: #### 4 [id number] #### [facility] [address] [place] [address] Dr. Jackelyn Celestin OPI Negative Normal NEGATIVE [facility] Comment on above: Performed By: #### 4 [id number] #### [facility] [address] [place] [address] Dr. Jackelyn Celestin OXY Negative Normal NEGATIVE [facility] Comment on above: Performed By: #### 4 [id number] #### [facility] [address] [place] [address] Dr. Jackelyn Celestin PCP Negative Normal NEGATIVE [facility] Comment on above: Performed By: #### 4 [id number] #### [facility] [address] [place] [address] Dr. Jackelyn Celestin PPX Negative Normal NEGATIVE [facility] Comment on above: Performed By: #### 4 [id number] #### [facility] [address] [place] [address] Dr. Jackelyn Celestin TCA Negative Normal NEGATIVE [facility] Comment on above: Performed By: #### 4 [id number] #### [facility] [address] [place] [address] Dr. Jackelyn Celestin THC Negative Normal NEGATIVE [facility] Comment on above: Performed By: #### 4 [id number] #### [facility] [address] [place] [address] Dr. Jackelyn Celestin TYPE AND SCREENon 07-29-2022 TYPE AND SCREEN Negative Normal [facility] Comment on above: Performed By: #### G TT3P #### [facility] [address] [place] [address] Dr. Jackelyn Celestin US PREG GROWTHon 07-25-2022 [...] G TT3P #### [facility] [address] [place] [address] Dr. Jackelyn Celestin US PREG GROWTHon 06-06-2022 [...] Glucose [Mass/Vol] 91 mg/dL Normal 74-106 [facility] Comment on above: Performed By: #### G TT3P #### [facility] [address] [place] [address] Dr. Jackelyn Celestin Glucose [Mass/Vol] 168 mg/dL Normal [facility] Comment on above: Performed By: #### G TT3P #### [facility] [address] [address] [address] Jackelyn Celestin Glucose [Mass/Vol] 121 mg/dL [facility] Comment on above: Performed By: #### G TT3P #### [facility] [address] [place] [address] Dr. Jackelyn Celestin Glucose [Mass/Vol] 86 mg/dL [facility] Comment on above: Performed By: #### G TT3P #### [facility] [address] [place] [address] Dr. Jackelyn Celestin PAP ACOG PANEL 2: 21 to 29on 05-17-2022 . . Normal [facility] Comment on above: Performed By: #### 4 [id number] #### [facility] [address] [place] [address] Dr. Jackelyn Celestin DIAGNOSIS: Comment [facility] Comment on above: Result Comment: NEGA TIVE FOR INTRAEPITHELIAL LESION OR MALIGNANCY. Performed By: #### 4 [id number] #### [facility] [address] [place] [address] Dr. Jackelyn Celestin Methodology: Comment [facility] Comment on above: Result Comment: This liquid based ThinPrep(R) pap test was screened with the use of an image guided system. Performed By: #### 4 [id number] #### [facility] [address] [place] [address] Dr. Jackelyn Celestin Note: Comment [facility] Comment on above: Result Comment: The Pap smear is a screening test designed to aid in the detection of premalignant and malignant conditions of the uterine cervix. It is not a diagnostic procedure and should not be used as the sole means of detecting cervical cancer. Both false-positive and false-negative reports do occur. . Performed By: #### 4 [id number] #### [facility] [address] [place] [address] Dr. Jackelyn Celestin Performed by: Comment [facility] Comment on above: Result Comment: Alphonso Walker, Racebook Writer (ASCP) Performed By: #### 4 [id number] #### [facility] [address] [place] [address] Dr. Jackelyn Celestin Reflex Criteria: Comment Normal [facility] Comment on above: Result Comment: The HPV DNA reflex criteria were not met with this specimen result therefore, no HPV testing was performed. . Performed By: #### 4 [id number] #### [facility] [address] [place] [address] Dr. Jackelyn Celestin Specimen adequacy: Comment Normal [facility] Comment on above: Result Comment: Sati sfactory for evaluation. No endocervical component is identified. Performed By: #### 4 [id number] #### [facility] [address] [place] [address] Dr. Jackelyn Celestin Age Gdln ACOG Testing 21-29 Normal [facility] Comment on above: Performed By: #### 4 [id number] #### [facility] [address] [place] [address] Dr. Jackelyn Celestin CHLAMYDIA/GONOCOCCUS ALONDRA ( AB/URINE/PAPon 05-14-2022 Chlamydia trachomatis, ALONDRA Negative Normal Negative [facility] Comment on above: Performed By: #### G TT3P #### [facility] [address] [place] [address] Dr. Jackelyn Celestin Neisseria gonorrhoeae, ALONDRA Negative Normal Negative [facility] Comment on above: Performed By: #### G TT3P #### [facility] [address] [place] [address] Dr. Jackelyn Celestin VAGINITIS/VAGINOSIS DNA PROB Daen 05-13-2022 Thao species Negative Normal Negative [facility] Comment on above: Performed By: #### [id number] #### [facility] [address] [place] [address] Dr. Jackelyn Celestin Gardnerella vaginalis Negative Normal Negative [facility] Comment on above: Performed By: #### 4 [id number] #### [facility] [address] [place] [address] Dr. Jackelyn Celestin Trichomonas vaginalis Negative Normal Negative [facility] Comment on above: Performed By: #### 4 [id number] #### [facility] [address] [place] [address] Dr. Jackelyn Celestin CBC AUTO DIFFon 05-09-2022 BASO # 0.0 103/ul Normal 0.0-0.1 [facility] Comment on above: Performed By: #### C BC #### [facility] [address] [place] [address] Dr. Jackelyn Celestin Basophils/100 WBC (Bld) 0.3 % Normal 0.2-2.0 [facility] Comment on above: Performed By: #### C BC #### [facility] [address] [place] [address] Dr. Jackelyn Celestin EO # 0.1 103/ul Normal 0.0-0.7 [facility] Comment on above: Performed By: #### C BC #### [facility] [address] [place] [address] Dr. Jackelyn Celestin Eosinophils/100 WBC (Bld) 1.2 % Normal 0.9-7.0 [facility] Comment on above: Performed By: #### C BC #### [facility] [address] [place] [address] Dr. Jackelyn Celestin Erythrocyte distribution width (RBC) [Ratio] 11.9 % Normal 11.0-15.0 [facility] Comment on above: Performed By: #### C BC #### [facility] [address] [place] [address] Dr. Jackelyn Celestin Hematocrit (Bld) [Volume fraction] 33.7 % Critically low 36.0-48.0 [facility] Comment on above: Performed By: #### C BC #### [facility] [address] [place] [address] Dr. Jackelyn Celestin Hemoglobin (Bld) [Mass/Vol] 12.0 g/dL Normal 12.0-16.0 [facility] Comment on above: Performed By: #### C BC #### [facility] [address] [place] [address] Dr. Jackelyn Celestin IG # 0.07 10e3/ul Critically high 0.00-0.03 [facility] Comment on above: Performed By: #### C BC #### [facility] [address] [place] [address] Dr. Jackelyn Celestin IG % 0.6 % Critically high 0.0-0.5 [facility] Comment on above: Performed By: #### C BC #### [facility] [address] [place] [address] Dr. Jackelyn Celestin LYMPH # 1.3 103/ul Normal 1.2-3.8 [facility] Comment on above: Performed By: #### C BC #### [facility] [address] [place] [address] Dr. Jackelyn Celestin Lymphocytes/100 WBC (Bld) 11.5 % Critically low 20.5-60.0 [facility] Comment on above: Performed By: #### C BC #### [facility] [address] [place] [address] Dr. Jackelyn Celestin MANUAL DIFF REQ NO Normal [facility] Comment on above: Performed By: #### C BC #### [facility] [address] [place] [address] Dr. Jackelyn Celestin MCH (RBC) [Entitic mass] 31.0 pg Normal 26.7-34.0 [facility] Comment on above: Performed By: #### C BC #### [facility] [address] [place] [address] Dr. Jackelyn Celestin MCHC (RBC) [Mass/Vol] 35.6 g/dL Critically high 29.9-35.2 [facility] Comment on above: Performed By: #### C BC #### [facility] [address] [place] [address] Dr. Jackelyn Celestin MCV (RBC) [Entitic vol] 87.1 fL Normal 81.0-99.0 [facility] Comment on above: Performed By: #### C BC #### [facility] [address] [place] [address] Dr. Jackelyn Celestin MONO # 0.5 103/ul Normal 0.3-0.8 [facility] Comment on above: Performed By: #### C BC #### [facility] [address] [place] [address] Dr. Jackelyn Celestin Monocytes/100 WBC (Bld) 4.8 % Normal 1.7-12.0 [facility] Comment on above: Performed By: #### C BC #### [facility] [address] [place] [address] Dr. Jackelyn Celestin NEUT # 8.9 103/ul Critically high 1.4-6.5 [facility] Comment on above: Performed By: #### C BC #### [facility] [address] [place] [address] Dr. Jackelyn Celestin Neutrophils/100 WBC (Bld) 81.6 % Critically high 43.0-75.0 [facility] Comment on above: Performed By: #### C BC #### [facility] [address] [place] [address] Dr. Jackelyn Celestin Platelet mean volume (Bld) [Entitic vol] 11.3 fL Normal 9.5-13.5 [facility] Comment on above: Performed By: #### C BC #### [facility] [address] [place] [address] Dr. Jackelyn Celestin PLT 171 103/ul Normal 150-450 [facility] Comment on above: Performed By: #### C BC #### [facility] [address] [place] [address] Dr. Jackelyn Celestin RBC 3.87 106/ul Critically low 4.20-5.40 [facility] Comment on above: Performed By: #### C BC #### [facility] [address] [place] [address] Dr. Jackelyn Celestin WBC 10.9 103/ul Normal 4.0-11.0 [facility] Comment on above: Performed By: #### C BC #### [facility] [address] [place] [address] Dr. Jackelyn Celestin GLUCOSE - 1HRon 05-09-2022 Glucose [Mass/Vol] 142 mg/dL Critically high 74-106 [facility] Comment on above: Performed By: #### 4 [id number] #### [facility] [address] [place] [address] Dr. Jackelyn Celestin US PREG BIOPHY W NON STRESSo n 01-30-2023 US PREG BIOPHY W NON STRESS EXAMINATION: [...] by: TRISTAN HART Date: 2022-05-09 10:35 Normal [facility] US PREG PLACENTAon US PREG PLACENTA EXAMINATION: US PREG PLACENTA HISTORY: Falls ; mild cramping after falling COMPARISON: Ultrasound anatomy 03/17/2022 FINDINGS: PLACENTA: Posterior without previa, subchorionic hematoma, or abruption. CERVIX LENGTH: Not evaluated. HEART RATE: 158 bpm OTHER: None. IMPRESSION: 1. Unremarkable posterior placenta. No suspicious findings. Electronically authenticated by: TRISTAN HART Date: 2022-05-09 10:29 Normal [facility] US PREG ANATOMY SINGLEon US PREG ANATOMY [...] on 02-15-2022 HBsAg Screen Negative Normal Negative [facility] Comment on above: Performed By: #### 4 [id number] #### [facility] [address] [address] [address] Jackelyn Celestin HEPATITIS C VIRUS AB W/ REFL EX QUANTon 02-15-2022 HCV AB <0.1 Normal 0.0-0.9 [facility] Comment on above: Performed By: #### H CVPCRR #### [facility] [address] [place] [address] Dr. Jackelyn Celestin Interpretation: Comment Normal [facility] Comment on above: Result Comment: Nega tive Not infected with HCV, unless recent infection is suspected or other evidence exists to indicate HCV infection. Performed By: #### H CVPCRR #### [facility] [address] [address] [address] Jackelyn Celestin HIV 1 AND 2 WITH REFLEXon HIV Screen 4th Generation wRfx Non-Reactive Normal Non Reactive [facility] Comment on above: Result Comment: HIV Negative HIV-1/HIV-2 antibodies and HIV-1 p24 antigen were NOT detected. There is no laboratory evidence of HIV infection. Performed By: #### H IV12 #### [facility] [address] [place] [address] Dr. Jackelyn Celestin RPR QUANTon 02-15-2022 Rapid Plasma Reagin, Quant Non-Reactive Normal NonRea<1:1 [facility] Comment on above: Result Comment: Plea se Note: This test does not meet current guidelines for screening and diagnosis of syphilis. This test is intended for following treatment response in patients being treated for syphilis infection. To screen for syphilis infection, a reflex cascade that includes both RPR and a treponema-specific assay should be utilized, such as Treponema pallidum (Syphilis) Screening [place] (613196) or Rapid Plasma Reagin (RPR) Test With Reflex to Quantitative RPR and Confirmatory Treponema pallidum Antibodies (229376). Performed By: #### R PRQ #### [facility] [address] [place] [address] Dr. Jackelyn Celestin RUBELLA AB IGGon 02-15-2022 Rubella Antibodies, IgG 1.97 index Normal Immune >0.99 [facility] Comment on above: Result Comment: Non- immune <0.90 Equivocal 0.90 - 0.99 Immune >0.99 Performed By: #### R UBIGG #### [facility] [address] [place] [address] Dr. Jackelyn Celestin CBC AUTO DIFFon 02-12-2022 BASO # 0.0 103/ul Normal 0.0-0.1 [facility] Comment on above: Performed By: #### C BC #### [facility] [address] [place] [address] Dr. Jackelyn Celestin Basophils/100 WBC (Bld) 0.4 % Normal 0.2-2.0 [facility] Comment on above: Performed By: #### C BC #### [facility] [address] [place] [address] Dr. Jackelyn Celestin EO # 0.2 103/ul Normal 0.0-0.7 [facility] Comment on above: Performed By: #### C BC #### [facility] [address] [place] [address] Dr. Jackelyn Celestin Eosinophils/100 WBC (Bld) 2.0 % Normal 0.9-7.0 [facility] Comment on above: Performed By: #### C BC #### [facility] [address] [place] [address] Dr. Jackelyn Celestin Erythrocyte distribution width (RBC) [Ratio] 12.8 % Normal 11.0-15.0 [facility] Comment on above: Performed By: #### C BC #### [facility] [address] [place] [address] Dr. Jackelyn Celestin Hematocrit (Bld) [Volume fraction] 40.7 % Normal 36.0-48.0 [facility] Comment on above: Performed By: #### C BC #### [facility] [address] [place] [address] Dr. Jackelyn Celestin Hemoglobin (Bld) [Mass/Vol] 14.4 g/dL Normal 12.0-16.0 [facility] Comment on above: Performed By: #### C BC #### [facility] [address] [place] [address] Dr. Jackelyn Celestin IG # 0.05 10e3/ul Critically high 0.00-0.03 [facility] Comment on above: Performed By: #### C BC #### [facility] [address] [place] [address] Dr. Jackelyn Celestin IG % 0.4 % Normal 0.0-0.5 [facility] Comment on above: Performed By: #### C BC #### [facility] [address] [place] [address] Dr. Jackelyn Celestin LYMPH # 1.7 103/ul Normal 1.2-3.8 [facility] Comment on above: Performed By: #### C BC #### [facility] [address] [place] [address] Dr. Jackelyn Celestin Lymphocytes/100 WBC (Bld) 15.1 % Critically low 20.5-60.0 [facility] Comment on above: Performed By: #### C BC #### [facility] [address] [place] [address] Dr. Jackelyn Celestin MANUAL DIFF REQ NO Normal [facility] Comment on above: Performed By: #### C BC #### [facility] [address] [place] [address] Dr. Jackelyn Celestin MCH (RBC) [Entitic mass] 31.2 pg Normal 26.7-34.0 [facility] Comment on above: Performed By: #### C BC #### [facility] [address] [place] [address] Dr. Jackelyn Celestin MCHC (RBC) [Mass/Vol] 35.4 g/dL Critically high 29.9-35.2 [facility] Comment on above: Performed By: #### C BC #### [facility] [address] [place] [address] Dr. Jackelyn Celestin MCV (RBC) [Entitic vol] 88.1 fL Normal 81.0-99.0 [facility] Comment on above: Performed By: #### C BC #### [facility] [address] [place] [address] Dr. Jackelyn Celestin MONO # 0.4 103/ul Normal 0.3-0.8 [facility] Comment on above: Performed By: #### C BC #### [facility] [address] [place] [address] Dr. Jackelyn Celestin Monocytes/100 WBC (Bld) 3.3 % Normal 1.7-12.0 [facility] Comment on above: Performed By: #### C BC #### [facility] [address] [place] [address] Dr. Jackelyn Celestin NEUT # 8.8 103/ul Critically high 1.4-6.5 [facility] Comment on above: Performed By: #### C BC #### [facility] [address] [place] [address] Dr. Jackelyn Celestin Neutrophils/100 WBC (Bld) 78.8 % Critically high 43.0-75.0 [facility] Comment on above: Performed By: #### C BC #### [facility] [address] [place] [address] Dr. Jackelyn Celestin Platelet mean volume (Bld) [Entitic vol] 11.6 fL Normal 9.5-13.5 [facility] Comment on above: Performed By: #### C BC #### [facility] [address] [place] [address] Dr. Jackelyn Celestin PLT 203 103/ul Normal 150-450 [facility] Comment on above: Performed By: #### C BC #### [facility] [address] [place] [address] Dr. Jackelyn Celestin RBC 4.62 106/ul Normal 4.20-5.40 [facility] Comment on above: Performed By: #### C BC #### [facility] [address] [place] [address] Dr. Jackelyn Celestin WBC 11.2 103/ul Critically high 4.0-11.0 [facility] Comment on above: Performed By: #### C BC #### [facility] [address] [place] [address] Dr. Jackelyn Celestin CULTURE URINEon 02-12-2022 CULTURE URINE Culture Observations : NO GROWTH. Normal [facility] Comment on above: Performed By: #### U RCX #### [facility] [address] [place] [address] Dr. Jackelyn Celestin GLYCOHEMOGLOBIN A1Con 2021 ADA RECOMMENDATION SEE BELOW Normal [facility] Comment on above: Result Comment: ADA RECOMMENDED LIMIT 4.0 - 6.0 ADA THERAPEUTIC TARGET < 7.0 ACTION SUGGESTED > 7.0 Performed By: #### 4 [id number] #### [facility] [address] [place] [address] Dr. Jackelyn Celestin Glucose [Mass/Vol] 94 mg/dL Normal [facility] Comment on above: Performed By: #### 4 [id number] #### [facility] [address] [place] [address] Dr. Jackelyn Celestin HbA1c (Bld) [Mass fraction] 4.9 % Normal 4.5-6.2 [facility] Comment on above: Performed By: #### 4 [id number] #### [facility] [address] [place] [address] Dr. Jackelyn Celestin TYPE AND SCREENon 02-12-2022 TYPE AND SCREEN Negative Normal [facility] Comment on above: Performed By: #### T NS #### [facility] [address] [place] [address] Dr. Jackelyn Celestin US PREG TVon 01-21-2022 [...] by: DONALD AGUILAR Date: 2022-01-21 16:41 Normal [facility] Coding Summary.on 12-12-2019 Coding Summary. CODING DATE: 020 FINAL [facility] STATUS: Home (Routine DC) PAYOR: Self [...] CphT Date Saved: 12/12/2019 10:59 am Normal [facility] Office/Clini c Noteon 11-21-2019 [...] day(s), # 20 tab(s), Refills(s) 0, Pharmacy: [facility], 159, cm, 11/21/19 19:13:00 EDT, Height/Length Dosing, 96, kg, 11/21/19 19:13:00 EDT, Weight Dosing Follow-up No qualifying data available Patient Education Body Mass Index, BMI DASH Diet MyPlate from [employer] Obesity Otitis Media, Adult Problem List/Past Medical [...] cancer: Grandparent. Hypertension: Grandparent. Stroke: Grandparent. Normal [facility] Comment on above: Result Comment: Elec [...] Document Reviewed: 01/04/2006 ExitCare? Patient Information ?2014 [employer]. DASH Diet The DASH diet stands for [...] beef, chicken breast, turkey breast. All fish. [place], bake, or broil your meat. Nothing should [...] Document Reviewed: 03/15/2012 ExitCare? Patient Information ?2013 [employer]. [employer], [employer] The amount you need to eat from [...] Document Reviewed: 06/16/2008 ExitCare? Patient Information ?2013 [facility]. Family Medicine Obesity Obesity is defined as [...] such as an underactive thyroid (hypothyroidism ), [place]'s syndrome, and polycystic ovarian syndrome. ? Certain [...] Document Reviewed: 05/02/2012 ExitCare? Patient Information ?2013 [employer]. Otitis Media, Adult A middle ear infection [...] the first few days. ? Only take exyi-opi-iuajqsx or prescription medicines for pain, discomfort, or [...] Document Reviewed: 10/31/2008 ExitCare? Patient Information ?2013 [employer]. Normal [facility] SARS-CoV-2, NAAon 11-20-2019 SARS CORONAVIRUS 2 RNA:PRTHR:PT:RESPIRATO RY:ORD:PROBE.AMP.TAR Not Detected Not Detected [facility] Comment on above: Result Comment: This test was developed and its performance characteristics determined by [employer]. This test has not been FDA cleared [...] detected) result in this assay. Performed at: [facility] [address] [facility] [place] [id number] MD Malaika Velez Performed By: #### S ARS-CoV-2, ALONDRA #### [facility] [address] [place] [address] [facility] Medicine Video Visit - Telehealthon 11-16-2019 [...] interactive video communications from my office using [employer] due to the restrictions of the COVID-19 pandemic. No physical exam was conducted other than those areas of the body visible to telecommunications with the patient located at [address] [phone], with no one else in attendance. If [...] cancer: Grandparent. Hypertension: Grandparent. Stroke: Grandparent. Normal [facility] Comment on above: Result Comment: Elec tronically Signed By: Abbey ESTRADA CNP\.[place]\Date and Time Signed: 11/16/19 14:27 EDT URINE CULTUREon 07-10-2017 Urine culture, bacteria SPECIMEN DESCRIPTION URINE CLEAN CATCHUA DIPSTICK NITRITE NEGATIVE * Result Note: LEUKOCYTE NEGATIVE *CULTURE ESCHERICHIA COLI * Result Note: 50,000 C/C/ML * * Result Note: Testing performed at [facility], [place], [place] [address] *REPORT STATUS 07/10/2017 * Result Note: FINAL * O RGANISM ESCHERICHIA COLI * Result Note: ESCHERICHIA COLI *METHOD MICAMPICILLIN <=2 SUSCEPTIBLEAMPICILLIN/SULBA CTAM <=2 SUSCEPTIBLECEFTRIAXONE <=1 SUSCEPTIBLECEFAZOLIN <=4 SUSCEPTIBLEIMIPENEM <=0.25 SUSCEPTIBLEGENTAMICIN <=1 SUSCEPTIBLETRIMETH-SULFA <=20 SUSCEPTIBLEAMOXICILLIN/CLAV ULANIC A <=2 SUSCEPTIBLENITROFURANTOIN 32 SUSCEPTIBLEPIPERACILLIN/SADA OBACTAM <=4 SUSCEPTIBLELEVOFLOXACIN <=0.12 SUSCEPTIBLEESBL NEGATIVECEFTAZIDIME <=1 SUSCEPTIBLE Normal [facility] Comment on above: Performed By: #### A URNC ####Testing performed at [address] [id number] performed at [address] [address] BHCG,QUANTITATIVEon 07-08-19 18 BHCG,QUANTITATIVE 133.56 MIU/ML Normal [facility] Comment on above: Result Comment: [facility] INTERPRETIVE RANGES: NON FEMALE 0-6 MIU/MLMALE ADULT [...] #### A CBC, BHCG2 ####Testing performed at [address] [address] CBCon 07-07-2017 ABSOLUTE BAS 0.1 X10 Normal [facility] Comment on above: Performed By: #### A CBC, BHCG2 ####Testing performed at [address] [place] [address] ABSOLUTE EOS 0.20 X10 Normal [facility] Comment on above: Performed By: #### A CBC, BHCG2 ####Testing performed at [address] [place] [address] Basophils/100 WBC Auto (Bld) 0.6 % Normal 0.0-2.0 [facility] Comment on above: Performed By: #### A CBC, BHCG2 ####Testing performed at [address] [place] [address] DTYPE AUTO DIFF Normal [facility] Comment on above: Performed By: #### A CBC, BHCG2 ####Testing performed at [address] [place] [address] Eosinophils/100 leukocytes 2.0 % Normal 0.0-11.0 [facility] Comment on above: Performed By: #### A CBC, BHCG2 ####Testing performed at [address] [place] [address] Lymphocytes 2.00 X10 Normal [facility] Comment on above: Performed By: #### A CBC, CG2 ####Testing performed at [address] [place] [address] Lymphocytes/100 leukocytes 23.0 % Normal 20.0-55.0 [facility] Comment on above: Performed By: #### A CBC, BHCG2 ####Testing performed at [address] [place] [address] Monocytes 0.6 X10 Normal [facility] Comment on above: Performed By: #### A CBC, BHCG2 ####Testing performed at [address] [address] Monocytes/100 leukocytes 7.1 % Normal 0.0-10.0 [facility] Comment on above: Performed By: #### A CBC, BHCG2 ####Testing performed at [address] [place] [address] Neutrophils 5.9 x10 Normal 1.0-7.0 [facility] Comment on above: Performed By: #### A CBC, BHCG2 ####Testing performed at [address] [address] Neutrophils/100 leukocytes 67.3 % Normal 37.0-75.0 [facility] Comment on above: Performed By: #### A CBC, BHCG2 ####Testing performed at [address] [address] Erythrocyte distribution width Auto Ratio (RBC) 12.1 % Normal 11.5-14.5 [facility] Comment on above: Performed By: #### A CBC, BHCG2 ####Testing performed at [address] [address] Erythrocytes (RBC) 4.72 /cmm Normal 4.0-5.4 [facility] Comment on above: Performed By: #### A CBC BHCG2 ####Testing performed at [address] [address] Hematocrit (HCT) 43.2 % Normal 36.0-48.0 [facility] Comment on above: Performed By: #### A CBC, BHCG2 ####Testing performed at [address] [address] Hemoglobin mass conc (Bld) 15.1 g/dL Normal 12.0-16.0 [facility] Comment on above: Performed By: #### A CBC, BHCG2 ####Testing performed at [address] [address] MCH 32.0 pg Normal 26.0-35.0 [facility] Comment on above: Performed By: #### A CBC, BHCG2 ####Testing performed at [address] [address] MCHC mass conc (RBC) 35.0 g/dL Normal 27.0-37.0 [facility] Comment on above: Performed By: #### A CBC, BHCG2 ####Testing performed at [address] [address] MCV 91.5 fL Normal 80.0-100.0 [facility] Comment on above: Performed By: #### A CBC, BHCG2 ####Testing performed at [address] [place] [address] Platelet mean volume (PMV) 9.2 fL Normal 7.4-11.0 [facility] Comment on above: Performed By: #### A CBCALEXANDRACG2 ####Testing performed at [address] [address] Platelets 235 /cmm Normal 130.0-400. 0 [facility] Comment on above: Performed By: #### A CBCALEXANDRACG2 ####Testing performed at [address] [address] WBC (Leukocytes) 8.8 /cmm Normal 3.6-11.0 [facility] Comment on above: Performed By: #### A CBCDAVIDG2 ####Testing performed at [address] [address] ED NOTEon 07-07-2017 [facility] NOTES Normal [facility] ED PROVIDERon 07-07-2017 [facility] NOTES Normal [facility] URINE MACROSCOPICon 07-08-19 18 Bilirubin Ql (U) Negative Normal NEGATIVE [facility] Comment on above: Performed By: #### U MAC, UMIC ####Testing performed at [address] [address] URINE HEMOGLOBIN LARGE Abnormal NEGATIVE [facility] Comment on above: Performed By: #### U MAC, UMIC ####Testing performed at [address] [address] URINE KETONE Negative Normal NEGATIVE [facility] Comment on above: Performed By: #### U MAC, UMIC ####Testing performed at [address] [address] URINE LEUKOTEST Negative Normal NEGATIVE [facility] Comment on above: Performed By: #### U MAC, UMIC ####Testing performed at [address] [address] URINE NITRATES Negative Normal NEGATIVE [facility] Comment on above: Performed By: #### U MAC, UMIC ####Testing performed at [address] [address] URINE SPEC GRAVITY 1.025 Normal 1.010-1.0 2 5 [facility] Comment on above: Performed By: #### U MAC, UMIC ####Testing performed at [address] [place] [address] URINE TOTAL PROTEIN Negative Normal NEGATIVE [facility] Comment on above: Performed By: #### U MAC, UMIC ####Testing performed at [address] [place] [address] Urine, clarity CLEAR Normal CLEAR [facility] Comment on above: Performed By: #### U MAC, UMIC ####Testing performed at [address] [place] [address] Urine, color YELLOW Normal YELLOW [facility] Comment on above: Performed By: #### U MAC, UMIC ####Testing performed at [address] [place] [address] Urine, glucose presence Negative Normal NEGATIVE [facility] Comment on above: Performed By: #### U MAC, UMIC ####Testing performed at [address] [place] [address] Urine, pH 7.0 [pH] Normal 5.0-7.0 [facility] Comment on above: Performed By: #### U MAC, UMIC ####Testing performed at [address] [place] [address] Urine, urobilinogen 1.0 mg/dl Normal 0.2-1.0 [facility] Comment on above: Performed By: #### U MAC, UMIC ####Testing performed at [address] [address] URINE MICROSCOPICon 03-30-20 18 CRYSTAL OCCASIONAL Abnormal NONE [facility] Comment on above: Result Comment: CHRIS PHOUS PHOSPHATES Performed By: #### U MAC, UMIC ####Testing performed at [address] [address] URINE COMMENT REFLEX CULTURE PER ESTABLISHED CRITERIA. Normal [facility] Comment on above: Performed By: #### U MAC, UMIC ####Testing performed at [address] [address] URINE WBC'S 1 TO 5 Normal NEGATIVE [facility] Comment on above: Performed By: #### U MAC, UMIC ####Testing performed at [address] [address] Urine, bacteria in sediment 1+ Abnormal NEGATIVE [facility] Comment on above: Performed By: #### U MAC, UMIC ####Testing performed at [address] [place] [address] Urine, casts in sediment NONE Normal NONE [facility] Comment on above: Performed By: #### U MAC, UMIC ####Testing performed at [address] [place] [address] Urine, epithelial cells in sediment 1 TO 5 Normal [facility] Comment on above: Performed By: #### U MAC, UMIC ####Testing performed at [address] [place] [address] Urine, erythrocytes 1 TO 5 Normal NEGATIVE [facility] Comment on above: Performed By: #### U MAC, UMIC ####Testing performed at [address] [place] [address] Urine, mucus presence in sediment Negative Normal NEGATIVE [facility] Comment on above: Performed By: #### U MAC, UMIC ####Testing performed at [address] [place] [address] BhCG Quanton 07-05-2017 HCG.beta subunit Qn 238.0 mIU/m Normal [facility] Comment on above: Result Comment: FEMA LE (NON-) & MALE <3 BORDERLINE 3 - 5 SUGGEST REPEAT TESTING FEMALE () 1 D - 1 WK 5 - 50 1 - 2 WK 50 - 500 2 - 3 WK 100 - 5000 3 - 4 WK 500 - 97031 4 - 5 WK 1000 - 06904 5 - 6 WK [address] - 553807 6 - 8 WK [address] - 042117 2 - 3 [place] [address] - [address]773 Performed By: #### 2 [id number] ####JIMMIE MfdCnql0752 [place] [address] Auto Diffon 07-04-2017 Basophils Auto #/vol (Bld) 0.1 E3/mcL Normal 0.0-0.2 [facility] Comment on above: Order Comment: Order Added by Discern Expert. Performed By: #### 2 [id number] ####JIMMIE VnhVexr7323 [place] [address] Basophils/100 WBC Auto (Bld) 0.6 % Normal 0.0-2.0 [facility] Comment on above: Order Comment: Order Added by Discern Expert. Performed By: #### 2 660223 ####JIMMIE DanJdfEfgx7569 [place] [address] Eos Absolute 0.3 E3/mcL Normal 0.0-0.7 [facility] Comment on above: Order Comment: Order Added by Discern Expert. Performed By: #### 2 241357 ####JIMMIE DanIrgDrkv4341 [place] [address] Eosinophils/100 leukocytes 2.5 % Normal 0.0-11.0 [facility] Comment on above: Order Comment: Order Added by Discern Expert. Performed By: #### 2 259598 ####JIMMIE DanLqwBrev0288 [place] [address] Lymphocytes 2.3 E3/mcL Normal 1.2-3.4 [facility] Comment on above: Order Comment: Order Added by Discern Expert. Performed By: #### 2 022715 ####JIMMIE DanUtfUhjj5570 [place] [address] Lymphocytes/100 leukocytes 22.2 % Normal 20.0-55.0 [facility] Comment on above: Order Comment: Order Added by Discern Expert. Performed By: #### 2 614028 ####JIMMEI DanKarXthf1938 [place] [address] [place] Absolute 0.8 E3/mcL High 0.0-0.7 [facility] Comment on above: Order Comment: Order Added by Discern Expert. Performed By: #### 2 509674 ####JIMMIE DanUcxJlcz7362 [place] [address] Monocytes/100 leukocytes 7.6 % Normal 0.0-10.0 [facility] Comment on above: Order Comment: Order Added by Discern Expert. Performed By: #### 2 958308 ####JIMMIE DanPdrRseg3971 [place] [address] Neutro Absolute 6.9 E3/mcL High 1.4-6.5 [facility] Comment on above: Order Comment: Order Added by Discern Expert. Performed By: #### 2 847898 ####JIMMIE DanBytQdpt4379 [place] [address] Neutro Auto 67.1 % Normal 37.0-75.0 [facility] Comment on above: Order Comment: Order Added by Discern Expert. Performed By: #### 2 464237 ####JIMMIE Ozunao1025 [place] [address] BMPon 07-04-2017 BUN/Creatinine Ratio 21.7 ratio Normal 5.4-30.0 [facility] Comment on above: Performed By: #### 2 201206 ####JIMMIE NdqWmej7909 [place] [address] Creatinine 0.6 mg/dL Normal 0.6-1.3 [facility] Comment on above: Performed By: #### 2 345657 ####JIMMIE GsnQbpp7701 [place] [address] Urea nitrogen 13 mg/dL Normal 7-18 [facility] Comment on above: Performed By: #### 2 877283 ####JIMMIE JvoJelh8556 [place] [address] Calcium 8.4 mg/dL Normal 8.4-10.2 [facility] Comment on above: Performed By: #### 2 211630 ####JIMMIE IfoSuqg7711 [place] [address] Chloride 100 mmol/L Normal 98-107 [facility] Comment on above: Performed By: #### 2 045109 ####JIMMIE KkuCcwc3183 [place] [address] CO2 27.7 mmol/L Normal 24.0-30.0 [facility] Comment on above: Performed By: #### 2 763344 ####JIMMIEJonathan DanHhwKjfz4702 [place] [address] Glucose mass conc 98 mg/dL Normal 70-99 [facility] Comment on above: Performed By: #### 2 893643 ####JIMMIEJonathan DanSuqLhrc1461 [place] [address] Potassium molar conc 3.4 mmol/L Low 3.5-5.1 [facility] Comment on above: Performed By: #### 2 876374 ####JIMMIEJonathan GreshamVamWydk7222 [place] [address] Sodium 133 mmol/L Low 136-145 [facility] Comment on above: Performed By: #### 2 408629 ####JIMMIE PtaXdku0046 [place] [address] BhCG Quanton 07-04-2017 HCG.beta subunit Qn 190.8 mIU/m Normal [facility] Comment on above: Result Comment: FEMA LE (NON-) & MALE <3 BORDERLINE 3 - 5 SUGGEST REPEAT TESTING FEMALE () 1 D - 1 WK 5 - 50 1 - 2 WK 50 - 500 2 - 3 WK 100 - 5000 3 - 4 WK 500 - 60169 4 - 5 WK 1000 - [address] 5 - 6 WK [address] - 029867 6 - 8 WK [address] - 430941 2 - 3 [place] [address] - 583194 Performed By: #### 2 389386 ####JIMMIEJonathan DanUciXkzq4156 [place] [address] CBC w/ Auto Diffon 8 Erythrocyte distribution width Auto Ratio (RBC) 11.6 % Normal 11.5-14.5 [facility] Comment on above: Performed By: #### 2 155830 ####JIMMIEJonathan DanEbjEfuh1063 [place] [address] Erythrocytes (RBC) 4.43 E6/mcL Normal 3.90-5.[address] [facility] Comment on above: Performed By: #### 2 012930 ####JIMMIEJonathan DanXgeAfew5096 [place] [address] Hematocrit (HCT) 40.1 % Normal 36.0-48.0 [facility] Comment on above: Performed By: #### 2 063024 ####JIMMIE DanNoyMani3081 [place] [address] Hemoglobin mass conc (Bld) 14.1 g/dL Normal 12.0-16.0 [facility] Comment on above: Performed By: #### 2 468151 ####JIMMIE DanUqvFgux9517 [place] [address] MCH 31.7 pg High 27.0-31.0 [facility] Comment on above: Performed By: #### 2 438578 ####JIMMIE Ozunao1025 [place] [address] MCHC mass conc (RBC) 35.1 g/dL Normal 33.0-37.0 [facility] Comment on above: Performed By: #### 2 540958 ####JIMMIE Ozunao1025 [place] [address] MCV 90.4 fL Normal 78.0-100.0 [facility] Comment on above: Performed By: #### 2 721591 ####JIMMIE Ozunao1025 [place] [address] Platelet mean volume (PMV) 8.4 fL Normal 7.4-11.0 [facility] Comment on above: Performed By: #### 2 019054 ####JIMMIE Ozunao1025 [place] [address] Platelets 232 E3/mcL Normal 130-400 [facility] Comment on above: Performed By: #### 2 315009 ####JIMMIE Ozunao1025 [place] [address] WBC (Leukocytes) 10.3 E3/mcL Normal 3.6-11.0 [facility] Comment on above: Performed By: #### 2 921408 ####JIMMIE Ozunao1025 [place] [address] Hep Func Panelon 07-04-2017 Alanine aminotransferase (ALT) 15 Int._Unit/L Normal 10-40 [facility] Comment on above: Performed By: #### 2 127101 ####JIMMIE Gresham1025 [place] [address] Albumin 3.8 g/dL Normal 3.2-5.0 [facility] Comment on above: Performed By: #### 2 604386 ####JIMMIE DanScuXsbb5175 [place] [address] Albumin/Globulin Ratio 1.4 {ratio} Normal 1.1-1.9 [facility] Comment on above: Performed By: #### 2 157219 ####JIMMIE DanPsiYoyy6088 [place] [address] Alk Phos 36 Int._Unit/L Low 42-121 [facility] Comment on above: Performed By: #### 2 853342 ####JIMMIE ByaBpxl1063 [place] [address] Aspartate aminotransferase (AST) 18 Int._Unit/L Normal 10-42 [facility] Comment on above: Performed By: #### 2 495431 ####JIMMIE Gresham1025 [place] [address] Bili Direct <.10 Normal .00-.20 [facility] Comment on above: Performed By: #### 2 715678 ####JIMMIE YrtVfqp0145 [place] [address] Bili Indirect >0.7 Normal [facility] Comment on above: Result Comment: No e stablished ranges available for the Indirect Biliruben. Performed By: #### 2 833388 ####JIMMIE PsjJave2206 [place] [address] Bili Total 0.8 mg/dL Normal 0.2-1.0 [facility] Comment on above: Performed By: #### 2 763685 ####JIMMIE TvxUftz3663 [place] [address] Globulin 2.8 g/dL Normal 2.0-4.0 [facility] Comment on above: Performed By: #### 2 511020 ####JIMMIE SomWihs2673 [place] [address] Protein 6.6 g/dL Normal 6.4-8.3 [facility] Comment on above: Performed By: #### 2 683240 ####JIMMIE BmaBqfj2429 [place] [address] Lipase Levelon 07-04-2017 Lipase Lvl 19 U/L Normal 8-57 [facility] Comment on above: Performed By: #### 2 418269 ####JIMMIE YbtEtzb8326 [place] [address] U BhCG Qlton 07-04-2017 HCG.beta subunit Qn Positive Normal Neg [facility] Comment on above: Performed By: #### 2 265055 ####JIMMIE Urinalysis Manual Uajtmjgnll9932 [place] [address] UA Completeon 07-04-2017 UA Blood 3+ Normal Negative [facility] Comment on above: Performed By: #### 8 [id number] ####JIMMIE Urinalysis Automated Qfqefxalns7898 [place] [address] UA Bacteria Trace Abnormal None [facility] Comment on above: Performed By: #### 8 [id number] ####JIMMIE Urinalysis Automated Foumezdvpl0467 [place] [address] UA Clarity SltCloudy Abnormal Clear [facility] Comment on above: Performed By: #### 8 [id number] ####JIMMIE Urinalysis Automated Ijfzgnxzcc4102 [place] [address]25[address] UA Leuk Est Trace Normal Negative [facility] Comment on above: Performed By: #### 8 [id number] ####JIMMIE Urinalysis Automated [address] [place] [address] UA Mucous Occasional Abnormal Trace [facility] Comment on above: Performed By: #### 8 [id number] ####JIMMIE Urinalysis Automated Kohwsbdtmd0676 [place] [address]2505 UA Nitrite Negative Normal Negative [facility] Comment on above: Performed By: #### 8 [id number] ####JIMMIE Urinalysis Automated Af[address] [place] [address] UA pH 5.0 Normal 4.6-8.0 [facility] Comment on above: Performed By: #### 8 [id number] ####JIMMIE Urinalysis Automated Y[address]ov[address] [place] [address] UA Protein Negative Normal Negative [facility] Comment on above: Performed By: #### 8 [id number] ####JIMMIE Urinalysis Automated Jythqjrcdb7160 [place] [address] UA Spec Grav 1.027 Normal 1.003-1.03 0 [facility] Comment on above: Performed By: #### 8 [id number] ####JIMMIE Urinalysis Automated V[address]qjbmb[address] [place] [address] UA Squam Epithelial 0-5 Normal 0-[address] [facility] Comment on above: Performed By: #### 8 [id number] ####JIMMIE Urinalysis Automated Ymnytcadwf0484 [place] [address]25[address] UA Urobilinogen Negative Normal [facility] Comment on above: Performed By: #### 8 [id number] ####JIMMIE Urinalysis Automated Fzgsdwtczr1483 [place] [address] UA WBC 10-20 Abnormal 0-5 [facility] Comment on above: Performed By: #### 8 [id number] ####JIMMIE Urinalysis Automated Xjodnyritj3453 [place] [address] Urine, color Yellow Normal Yellow [facility] Comment on above: Performed By: #### 8 [id number] ####JIMMIE Urinalysis Automated Tdrhcosfyl6389 [place] [address] Urine, erythrocytes 5-10 Abnormal 0-[address] [facility] Comment on above: Performed By: #### 8 [id number] ####JIMMIE Urinalysis Automated Fedbaihuzl3973 [place] [address] Urine, glucose Negative Normal Negative [facility] Comment on above: Performed By: #### 8 [id number] ####JIMMIE Urinalysis Automated Woejzgoybt7671 [place] [address] Urine, ketones presence Negative Normal Negative [facility] Comment on above: Performed By: #### 8 [id number] ####JIMMIE Urinalysis Automated Layuihuydi4384 [place] [address] Urine, urobilinogen Negative Normal Negative [facility] Comment on above: Performed By: #### 8 [id number] ####JIMMIE Urinalysis Automated Qqliwaqwfp0585 [place] [address] eGFRon 07-04-2017 eGFR (non-black) mL/min/{1.73_m2} Normal [facility] Comment on above: Order Comment: Order added by Discern Expert. Performed By: #### 1 [id number] ####JIMMIE DjjPgoj6177 [place] [address] Vital Signs Date Time Vital Sign Value Performing Clinician Cong reynolds 04-20-2023 14:07-0500 Diastolic blood pressure 75 mm[Hg] [facility] 04-20-2023 14:07-0500 Heart rate 93 /min [facility] 10 [facility] 04-20-2023 14:07-0500 Respiratory rate 18 /min [facility] 10 [facility] 04-20-2023 14:07-0500 SaO2% (BldA) [Mass fraction] 99 % [facility] [address] [place] [address] 04-20-2023 14:07-0500 Systolic blood pressure 127 mm[Hg] [facility] [address] [place] [address] 04-20-2023 14:06-0500 Body height 160 cm [facility] [address] [place] [address] 04-20-2023 14:06-0500 Body mass index (BMI) [Ratio] 37.22 kg/m2 [facility] [address] [place] [address] 04-20-2023 14:06-0500 Body temperature 97.7 [degF] [facility] [address] [place] [address] 04-20-2023 14:06-0500 Body weight 95.3 kg [facility] [address] [place] [address] 03-10-2023 23:05-0500 Diastolic blood pressure 80 mm[Hg] Supriya Aichholz Work Phone: [facility] 03-10-2023 23:05-0500 Heart rate 100 /min Supriya Aichholz Work Phone: [facility] 03-10-2023 23:05-0500 Respiratory rate 20 /min Supriya Aichholz Work Phone: [facility] 03-10-2023 23:05-0500 SaO2% (BldA) [Mass fraction] 98 % Supriya Aichholz Work Phone: [facility] 03-10-2023 23:05-0500 Systolic blood pressure 137 mm[Hg] Supriya Aichholz Work Phone: [facility] 03-10-2023 17:38-0500 Body temperature 97.9 [degF] Supriya Aichholz Work Phone: [facility] 03-10-2023 17:32-0500 Body height 160.02 cm Supriya Aichholz Work Phone: [facility] 03-10-2023 17:32-0500 Body weight 95 kg Supriya Aichholz Work Phone: [facility] Encounters Encounter Date Encounter Type Care Provider Facility Start: 09-27-2023 End: 09-27-2023 ambulatory XIN MORTEZA Not Available Start: 09-13-2023 End: 09-13-2023 ambulatory XIN MORTEZA Not Available Start: 08-30-2023 End: 08-30-2023 ambulatory STEFAN SHEMAR Not Available Start: 08-14-2023 End: 08-14-2023 ambulatory XIN MORTEZA Not Available Start: 07-04-2023 End: 07-04-2023 ambulatory STEFAN SHEMAR Not Available Start: 06-26-2023 End: 06-26-2023 ambulatory XIN MORTEZA Not Available Start: 06-05-2023 End: 06-05-2023 ambulatory XIN MORTEZA Not Available Start: 05-22-2023 End: 05-22-2023 ambulatory [facility] Start: 05-22-2023 End: 05-22-2023 Postop follow up visit related to original px Gerson Malik MD Work Phone: [facility] Comment on above: [...] 05-04-2023 Evaluation and management of inpatient SUKI [facility] Start: 05-04-2023 End: 05-04-2023 Evaluation and management of inpatient PA [facility] Start: 04-20-2023 End: 04-20-2023 ambulatory [facility] Start: 04-20-2023 End: 04-20-2023 Patient encounter procedure [facility] Pat Provider 10 [facility] Start: 03-31-2023 End: 03-31-2023 ambulatory XIN MORTEZA Not Available Start: 03-30-2023 End: 03-30-2023 ambulatory [facility] Start: 03-14-2023 End: 03-14-2023 ambulatory XIN MORTEZA Not Available Start: 03-10-2023 End: 03-11-2023 Emergency department patient visit Jacky Alarcon Facility:[facility] Start: 03-10-2023 End: 03-10-2023 Emergency department patient visit Supriya Emmanuelreillyaric Work Phone: [facility] Work Phone: Start: 03-07-2023 End: [...] 07-07-2017 End: 07-07-2017 Emergency department patient visit [facility] Start: 07-05-2017 End: 07-06-2017 Ambulatory Dickson Arleth Delavan Facility:[facility] Start: 07-04-2017 End: 07-04-2017 Emergency department patient visit Dickson W Delavan Facility:[facility] Procedures Date Procedure Procedure Detail Performing [...] (5 - Td or Tdap) [facility] Start: 05-04-2024 Adult BMI Screening Adult BMI Screen ing [facility] Start: 05-04-2024 Tobacco Screening Tobacco Screening [facility] Start: 04-20-2024 Adult BMI Screening Adult BMI Screen ing [facility] Start: 04-20-2024 Tobacco Screening Tobacco Screening [facility] Start: 06-05-2023 End: 06-05-2023 Patient encounter procedure 06/05/2023 9:50 AM EST Routine [facility] [address] [place] [id number] Xin Pro DO [address] [place] [address] [facility] Start: 05-04-2023 End: 05-04-2023 Admission to same day surgery center 05/04/2023 7:30 AM EST - 05/04/2023 9:30 AM EST Surgery [address] [place] [id number] Gerson Malik MD [address] [place] [address] DAVINCI CHOLECYSTECTOMY [facility] Surgery Comment on above: DAVINCI CHOLECYSTECT ANDREA Start: 05-04-2023 End: 05-04-2023 DAVINCI CHOLECYSTECTOMY DAVINCI CHOLECYSTECTOMY CHOLELITHIASIS 05/04/2023 7:30 AM EST [facility] Start: 05-04-2023 End: 05-04-2023 DAVINCI CHOLECYSTECTOMY CHOLANGIOGRAM DAVINCI CHOLECYSTECTOMY CHOLANGIOGRAM CHOLELITHIASIS 05/04/2023 7:30 AM EST [facility] Start: 05-04-2023 Subsequent hospital visit by physician 05/04/2023 7:30 AM EST Hospital Encounter [address] [place] [phone] Gerson Malik MD [address] [place] [address] [facility] Surgery Start: 03-10-2023 US Gallbladder [facility] Start: 03-10-2023 US scan of gallbladder US gall bladd er [facility] Start: 03-10-2023 Bacteria identified in Urine by Culture [facility] Start: 12-09-2022 Influenza vaccination Influenza Vacc ine [facility] Start: 2019 Screening for malign ant neoplasm of cervix Pap Smear [facility] Start: 2016 Adult BMI Follow Up Plan Adult BMI F ollow Up Plan [facility] Start: 2010 Depression Screening Depression Scre ening [facility] Patient Education - e Second Month Nausea and Vomiting, Adult ED Gallstones ED [facility] Work Phone: Patient referral [facility] Work Phone: Payers Date Payer Category Payer Unknown [id number] 2022 Private Health Insurance [id number] 2022 Unknown [id number] 2017 Unknown 1998 Unknown [id number] 2.16.84 0.1.581003.3.579.2.593 1998 Unknown [id number] 2.16.84 0.1.059085.3.579.2.593 1998 Unknown [id number] 2.16.84 0.1.159918.3.579.2.593 1998 Unknown [id number] 2.16.84 0.1.309276.3.579.2.593 1998 Unknown [id number] 2.16.84 0.1.446618.3.579.2.593 1998 Unknown [id number] 2.16.84 0.1.431863.3.579.2.593 1998 Unknown [id number] 2.16.84 0.1.398288.3.579.2.593 1998 Unknown [id number] 2.16.84 0.1.803625.3.579.2.593 1998 Unknown [id number] 2.16.84 0.1.788656.3.579.2.593 1998 Unknown [id number] 2.16.84 0.1.233231.3.579.2.593 1998 Unknown [id number] 2.16.84 0.1.231298.3.579.2.593 1998 Unknown [id number] 2.16.84 0.1.530151.3.579.2.593 1998 Unknown [id number] 2.16.84 0.1.894892.3.579.2.593 1998 Unknown [id number] 2.16.8 40.1.695710.3.579.2.1286 1998 Unknown [id number] 2.16.8 40.1.289331.3.579.2.1286 1998 Unknown [id number] 2.16.8 40.1.614884.3.579.2.1286 1998 Unknown [id number] 2.16.8 40.1.571172.3.579.2.1286 1998 Unknown [id number] 2.16.84 0.1.242050.3.579.2.1286 1998 Unknown [id number] 2.16.84 0.1.986604.3.579.2.1286 1998 Unknown [id number] 2.16.84 0.1.276886.3.579.2.1259 1998 Unknown [id number] 2.16.84 0.1.552316.3.579.2.9 1998 Unknown [id number] 2.16.84 0.1.493088.3.579.2.1259 1998 Unknown [id number] 2.16.84 0.1.858737.3.579.2.1259 1998 Unknown [id number] 2.16.84 0.1.699307.3.579.2.1259 1998 Unknown [id number] 2.16.84 0.1.229493.3.579.2.1259 1998 Unknown [id number] 2.16.84 0.1.948638.3.579.2.1259 1998 Unknown [id number] 2.16.84 0.1.316508.3.579.2.1259 1998 Unknown [id number] 2.16.840 .1.972952.3.579.2.1259 1998 Unknown [id number] 2.16.840 .1.781483.3.579.2.1259 1998 Unknown [id number] 2.16.840 .1.234600.3.579.2.1259 1959 Private Health Insurance [id number] 1959 Self-pay 1959 Unknown [id number] 1959 Unknown [id number] Unknown [id number] 2.16.8 40.1.540526.3.579.2.531 Social History Date Type Detail Facility Start: 03-10-2023 End: 03-30-2023 Tobacco smoking status NHIS Never smoked tobacco (finding) [facility] Start: 2000 Sex Assigned At Female F [facility] Start: 03-30-2023 End: 05-16-2023 Tobacco use and exposure Smokeless tobacco non-user [facility] Start: 04-20-2023 End: 05-04-2023 Alcohol intake Ex-drinker (finding) [facility] Start: 05-21-2020 End: 04-20-2023 History of Social function [facility] Start: 05-21-2020 End: 04-20-2023 Tobacco use panel [facility] Housing Instability Unknown [facility] Start: 2000 Sex Assigned At Not on file P [facility] Start: 05-16-2023 Alcohol intake Lifetime non-d yrn (finding) [facility] Start: 02-10-2023 [facility] History of Present illness Narrative 05-22-2023 [...] up: As needed documented in this encounter [facility] Instructions 04-20-2023 Patient Instructions Note Date & Type Note Facility 04-20-2023 Instructions Terri Estrada RN - 04/20/2023 1:45 PM EST Your surgery/procedure is scheduled at [facility] on 05/04/23 at 0730 Arrival Time 0530 [facility] Address: [address] [place] [address] Park in [address] Parking lot located on [facility]. Report to the Entrance B. Check in at the information desk the surgery. The waiting room located on the second floor. If you have any questions prior to surgery, please call Pre-Admission Clinic at [phone] between 7:30 am and 4:30 pm Monday through Monday. If you have questions the morning of surgery, please call the Pre-op Department at [phone]. PLEASE FOLLOW THESE INSTRUCTIONS OR YOUR SURGERY [...] would like to schedule therapy at a [facility] facility, please call [phone] ([phone]). Do not use lotions, creams, powders, perfume, make up, cologne or after-shaves day of surgery. Remove ALL jewelry including wedding rings, body piercings,hair extensions that contain metal, nail bruneian, make-up, and contact lens. You may brush [...] RIGHTS AND RESPONSIBILITIES As a patient at [facility], you have the right to: Receive medical care and be informed of who is taking care of you Be treated with dignity and respect Have a family member/artist representative of choice and your physician notified of your admission Receive information and actively participate in decisions about your care and treatment Refuse care, treatment and services Decide who may provide your support and speak for you Access mormon and spiritual services Participate in ethical issues [...] of hospital charges and payment methods Patient/patient artist representative responsibilities are to: Provide information about [...] in clean clothes. documented in this encounter [facility] Note 04-20-2023 Perioperative Nursing Note - Lexi Reddy RN - 04/20/2023 1:45 PM EST Note Date & Type Note Facility 04-20-2023 Miscellaneous Notes Formattin g of this note might be different from the original. Appt reminder call done-message left documented in this encounter [facility] Nurse Note 04-20-2023 Perioperative Nursing Note - Lexi Reddy RN - 04/20/2023 1:45 PM EST Note Date & Type Note Facility 04-20-2023 Nurse Note Appt reminder call done-message left [facility] Evaluation note Note Date & Type Note Facility Evaluation note No assessment information availa [facility] Work Phone: Evaluation note Note Date & Type Note Facility Evaluation note Diagnosis Status post laparoscopic cholecystectomy- Primary Other postprocedural status documented in this encounter [facility] Hospital Discharge instructions Note Date & Type Note Facility Hospital Discharge instructions Additional Instructions Return if symptoms are worse Continue your Zofran and Reglan at home and will add Phenergan for vomiting Follow-up with your surgeon [facility] Work Phone: Instructions Attachments Note Date & Type Note Facility Instructions The following attachments cannot be sent through Care Everywhere.Cholecystectomy Discharge Instructions (Maori)documented in this encounter [facility] Summary Purpose Family History No Family [...] section and content) DATE CREATED AUTHOR 09/28/2017 [facility] jenn DATE CREATED AUTHOR AUTHOR'S ORGANIZ ATION 09/29/2017 [facility] DATE CREATED AUTHOR AUTHOR'S ORGANIZ ATION 04/16/2020 [facility] DATE CREATED AUTHOR AUTHOR'S ORGANIZ ATION 08/24/2022 [facility] DATE CREATED AUTHOR AUTHOR'S ORGANIZ ATION 03/21/2023 [facility] DATE CREATED AUTHOR AUTHOR'S ORGANIZ ATION 05/24/2023 [facility] DATE CREATED AUTHOR AUTHOR'S ORGANIZ ATION 09/29/2023 [facility] [employer] Care Teams (unrecognized sec tion and content) Team Status: Active Member Role Status Dates Supriya Cerrato Primary Care Provider Active Team Status: Inactive Member Role Status Dates Supriya Cerrato Primary Care Provider Active Jacky Alarcon MD Emergency Provider Active Urban Design Consultant Relationship Specialty Start Date End Date Supriya Cerrato, EMPLOYEE RELATIONS CONSULTANT-[facility] [address] [place] [phone] PCP - General Nurse Practitioner 03/30/23 Urban [employer] Consultant Relationship Specialty Start Date End Date Supriya Cerrato, EMPLOYEE RELATIONS CONSULTANT-[facility] [address] [place] [phone] PCP - General Nurse Practitioner 03/30/23 Goals [...] THE PRIMARY CLINICAL RECORDS. [facility] [employer] provides no warranty or guarantee of the accuracy or completeness of information in this document.
[2023-09-30 07:24] VITALS: BP 119/73; PULSE 104
== END 2023-09-30 07:50 | disposition home or self-care (01) ==
LOC: FBCO 01:07 → FBC 07:07
PROVIDERS: Visit Provider Obstetrics & Gynecology
DX: O36.63X0 Maternal care for excessive fetal growth, third trimester, not applicable or unspecified (principal); Z3A.35 35 weeks gestation of pregnancy
CPT/HCPCS: 59025

== ENCOUNTER 2023-10-04 07:04 | Outpatient (OUT) | payer OTHER, SELFPAY ==
--- OUTSIDE RECORDS SUMMARY | 2023-10-04 07:07 | XMS_ITS | CCD ---
Author Organization [facility] Care Team Providers Care Perishable Freight Inspector Name Role Phone Galdino, Dickson W Unavailable Unavailable Galdino, Dickson W Unavailable Unavailable No Doctor Assigned, Nodr Unavailable Unavail able Galdino, Dickson W Unavailable Unavailable Pompeii, Dickson W Unavailable Unavailable No Doctor Assigned, Nodr Unavailable Unavail able SHEMAR ., STEFAN Admitting Unavailable SHEMAR ., STEFAN Consulting Unavailable AICHHOLZ, 5TH GRADE TEACHER SUPRIYA Primary Care Unavailable SHEMAR ., STEFAN Attending Unavailable MORTEZA ., DR LAUREN Admitting Unavailable SHEMAR ., STEFAN Consulting Unavailable AICHHOLZ, 5TH GRADE TEACHER SUPRIYA Primary Care Unavailable MORTEZA ., DR LAUREN Attending Unavailable SHEMAR ., STEFAN Admitting Unavailable SHEMAR ., STEFAN Consulting Unavailable SHEMAR ., STEFAN Attending Unavailable AICHHOLZ, 5TH GRADE TEACHER SUPRIYA Primary Care Unavailable AICHHOLZ, 5TH GRADE TEACHER SUPRIYA Primary Care Unavailable MORTEZA ., DR LAUREN Attending Unavailable MORTEZA ., DR LAUREN Admitting Unavailable MORTEZA ., DR LAUREN Admitting Unavailable MORTEZA ., DR LAUREN Attending Unavailable AICHHOLZ, 5TH GRADE TEACHER SUPRIYA Primary Care Unavailable MORTEZA ., DR LAUREN Consulting Unavailable KARASIK ., DR MURPHY Attending Unavailabl e AICHHOLZ, 5TH GRADE TEACHER SUPRIYA Primary Care Unavailable KARASIK ., DR [...] MORTEZA ., DR LAUREN Consulting Unavailable AICHHOLZ, 5TH GRADE TEACHER SUPRIYA Primary Care Unavailable MORTEZA ., DR LAUREN Attending Unavailable Zieber, Tristan Consulting Unavailable MORTEZA ., DR LAUREN Consulting Unavailable REQUEST, DR NONE LISTED Primary Care Unavaila ble MORTEZA ., DR LAUREN Attending Unavailable MORTEZA ., DR LAUREN Admitting Unavailable Zieber, Tristan Consulting Unavailable MORTEZA ., DR LAUREN Admitting Unavailable AICHHOLZ, 5TH GRADE TEACHER SUPRIYA Primary Care Unavailable MORTEZA ., DR LAUREN Attending Unavailable MAY, DR DONALD Bryan Consulting Unavailable MORTEZA ., DR LAUREN Consulting Unavailable MORTEZA ., DR LAUREN Admitting Unavailable AICHHOLZ, 5TH GRADE TEACHER SUPRIYA Primary Care Unavailable MORTEZA ., DR LAUREN Attending Unavailable MORTEZA ., DR LAUREN Consulting Unavailable SHEMAR ., STEFAN Attending Unavailable SHEMAR ., STEFAN Admitting Unavailable Zieber, Tristan Consulting Unavailable REQUEST, DR NONE LISTED Primary Care Unavaila ble SHEMAR ., STEFAN Consulting Unavailable MORTEZA ., DR LAUREN Admitting Unavailable MORTEZA ., DR LAUREN Consulting Unavailable MORTEZA ., DR LAUREN Attending Unavailable AICHHOLZ, 5TH GRADE TEACHER SUPRIYA Primary Care Unavailable Aichholz, Supriya J Primary Care Provider MD Jacky Alarcon Emergency Provider Jacky Alarcon Attending Unavailable Jacky Alarcon Admitting Unavailable Aicstef, Supriya J Primary Care Unavailable Aichholz TOP INSTALLER-5TH GRADE TEACHER, Supriya J Primary Care Provider Unavailable Primary [...] Propensity to adverse reactions to drug (disorder) [facility] Repository Medications Current Medications Medication [...] unspecified; Translations: [MAT CARE EXCSS [facility] GR 3RD TRI UNS] Onset: [...] WITH AUTO DIFFon BASOPHILS ABSOLUTE AUTO 0.0 [facility] Basophils/100 WBC (Bld) 0.3 % 0.2 - 2.0 % [facility] Eosinophils/100 WBC (Bld) 2.0 % 0.9 - 7.0 % [facility] Erythrocyte distribution width (RBC) [Ratio] 12.8 % 11.0 - 15.0 % [facility] Hematocrit (Bld) [Volume fraction] 39.3 % 36.0 - 48.0 % [facility] Hemoglobin (Bld) [Mass/Vol] 14.1 g/dL 12.0 - 16.0 g/dL [facility] IMMATURE GRANULOCYTES ABS AUTO 0.[address] [facility] Immature granulocytes/100 WBC (Bld) 0.7 % High 0.0 - 0.5 % [facility] Interpretation and review of laboratory results Abnormal [facility] LYMPHOCYTES ABSOLUTE AUTO 2.0 [facility] Lymphocytes/100 WBC (Bld) 19.1 % Low 20.5 - 60.0 % [facility] MCH (RBC) [Entitic mass] 32.0 pg 26.7 - 34.[address] [facility] MCHC (RBC) [Mass/Vol] 35.9 g/dL High 29.9 - 35.2 g/dL [facility] MCV (RBC) [Entitic vol] 89.3 fL 81.0 - 99.[address] [facility] MONOCYTES ABSOLUTE AUTO 0.5 [facility] Monocytes/100 WBC (Bld) 4.7 % 1.7 - 12.0 % [facility] NEUTROPHILS ABSOLUTE AUTO 7.[address] [facility] Neutrophils/100 WBC (Bld) 73.2 % 43.0 - 75.0 % [facility] Platelet mean volume (Bld) [Entitic vol] 11.4 fL 9.5 - 13.[address] [facility] TBH EO # 0.2 [facility] TB PLT [address] [facility] RBC 4.40 [facility] TBH WBC 10.4 [facility] CLINISY[facility] Surgical Pathologyon 024 Surgical Pathology Normal [facility] Comment on above: Result Comment: [facility] [address] [place] [address] Surgical Pathology Consultation Patient Name:DARY ASHLEY:2000 (Age: 23)Gender:FTaken:4Reported:4Physician(s):GERSON Kelsey To: Rec. 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 No evidence of malignancy or dysplasia. Cholelithiasis. Report Electronically Signed Out ao/05/12/2023olamide Moreno MD Interpretation performed at [facility], [address] [place] [address], License number: [id number]. Clinical History Cholelithiasis. Gross Description Received in [...] congested, hemorrhagic and velvety in the neck. Felt Cutter sections are submitted in cassettes A- B, as: A- cystic duct margin and outside sales representative ragged defects,B- outside sales representative neck body and fundus. After initial microscopic evaluation, additional sections are submitted in cassettes C-E. (5,ss,[id number], m6) MARYJANE/ mxw/05/04/2023SSI Specimen(s) Received Gallbladder Fee Codes(s): 1; 13414 gall bladderon 03-11-2023 gall bladder [facility] [place] [address] Ultrasound Report Signed Patient: Dary Ashley MR#: [id number] : 2000 Acct:[id number] Age/Sex: 22 / F ADM Date: 03/10/23 Loc: ER Room: Type: [facility] ER Attending Dr: Ordering Provider: [...] Nataliia Scott M.D.03/11/2023 8:10 AM Dictation Location: [place] [address] Tech: Isi Federico Transcribed By: RONI 03/11/23 0810 Dictated By: Nataliia Scott MD 03/11/23 0807 Signed By: 03/11/23 0810 Normal [facility] Alanine aminotransferase [En zymatic activity/volume] in Serum or PlasmaOrdered By: Jacky Alarcon on 03-10-2023 ALT [Catalytic activity/Vol] 36 U/L 7-52 [facility] Albumin [Mass/volume] in Ser um or Plasma by Bromocresol green (BCG) dye binding methoOrdered By: Jacky Alarcon on 03-10-2023 Albumin BCG dye [Mass/Vol] 4.5 g/dL 3.5-5.7 [facility] Alkaline phosphatase [Enzyma tic activity/volume] in Serum or PlasmaOrdered By: Jacky Alarcon on 03-10-2023 ALP [Catalytic activity/Vol] 71 U/L 34-104 [facility] Aspartate aminotransferase [ Enzymatic activity/volume] in Serum or PlasmaOrdered By: Jacky Alarcon on 03-10-2023 AST [Catalytic activity/Vol] 17 U/L 13-39 [facility] Automated erythrocytes count in urine sediment (number/area)Ordered By: Jacky Alarcon on 03-10-2023 RBC Auto (Urine sed) [#/Area] 50-100 [HPF] 0-4 [facility] Automated leukocytes count i n urine sediment (number/area)Ordered By: Jacky Alarcon on 03-10-2023 WBC Auto (Urine sed) [#/Area] 5-9 [HPF] 0-4 [facility] Basic Metabolic Panelon 12 Anion gap [Moles/Vol] 16.5 mmol/L High 6.0-15.0 [facility] Comment on above: Performed By: #### L IPASE, HCGQNT, HEPATIC, BMP, CBC #### [facility] [address] Calcium [Mass/Vol] 9.3 mg/dL Normal 8.6-10.3 [facility] Comment on above: Performed By: #### L IPASE, HCGQNT, HEPATIC, BMP, CBC #### [facility] [address] [place] [address] [place] Chloride [Moles/Vol] 101 mmol/L Normal 98-107 [facility] Comment on above: Performed By: #### L IPASE, HCGQNT, HEPATIC, BMP, CBC #### [facility] [address] [place] [address] [place] CO2 [Moles/Vol] 18.8 mmol/L Low 21.0-31.0 [facility] Comment on above: Performed By: #### L IPASE, HCGQNT, HEPATIC, BMP, CBC #### [facility] [address] [place] [address] [place] Creatinine [Mass/Vol] 0.64 mg/dL Normal 0.60-1.20 [facility] Comment on above: Performed By: #### L IPASE, HCGQNT, HEPATIC, BMP, CBC #### [facility] [address] [place] [address] [place] Creatinine Clr Calc Pharmacy 148.58 Normal [facility] Comment on above: Performed By: #### L IPASE, HCGQNT, HEPATIC, BMP, CBC #### [facility] [address] [place] [address] [place] GFR/1.73 sq M.predicted MDRD (S/P/Bld) [Vol rate/Area] mL/min/{1.73_m2} Normal [facility] Comment on above: Performed By: #### L IPASE, HCGQNT, HEPATIC, BMP, CBC #### [facility] [address] Glucose [Mass/Vol] 83 mg/dL Normal 70-100 [facility] Comment on above: Result Comment: [place] Glucose Reference Range is dependent on time and content of last meal. Glucose of more than 200 mg/dL in a nonstressed, ambulatory subject supports the diagnosis of Diabetes Mellitus. ADA recommended reference range Performed By: #### L IPASE, HCGQNT, HEPATIC, BMP, CBC #### [facility] [address] Potassium [Moles/Vol] 3.3 mmol/L Low 3.5-5.1 [facility] Comment on above: Performed By: #### L IPASE, HCGQNT, HEPATIC, BMP, CBC #### [address] Sodium [Moles/Vol] 133 mmol/L Low 136-145 [facility] Comment on above: Performed By: #### L IPASE, HCGQNT, HEPATIC, BMP, CBC #### [facility] [address] [place] [address] Urea nitrogen [Mass/Vol] 6 mg/dL Low 7-25 [facility] Comment on above: Performed By: #### L IPASE, HCGQNT, HEPATIC, BMP, CBC #### [facility] [address] [place] [address] Basophils Auto (Bld) [#/Vol] Ordered By: Jacky Alarcon on 03-10-2023 Basophils (Bld) [#/Vol] 0.1 10*3/uL 0.0-0.2 [facility] Basophils/100 WBC Auto (Bld) Ordered By: Jacky Alarcon on 03-10-2023 Basophils/100 WBC (Bld) 0.4 % . [facility] Bilirubin Test strip Ql (U)O rdered By: Jacky Alarcon on 03-10-2023 Bilirubin Ql (U) Negative Negative [facility] Bilirubin.direct [Mass/volum e] in Serum or PlasmaOrdered By: Jacky Alarcon on 03-10-2023 Bilirubin.direct [Mass/Vol] 0.40 mg/dL 0.03-0.18 [facility] Bilirubin.total [Mass/volume ] in Serum or PlasmaOrdered By: Jacky Alarcon on 03-10-2023 Bilirubin [Mass/Vol] 1.2 mg/dL 0.3-1.0 [facility] Calcium [Mass/volume] in Ser um or PlasmaOrdered By: Jacky Alarcon on 03-10-2023 Calcium [Mass/Vol] 9.3 mg/dL 8.6-10.3 [facility] Carbon dioxide, total [Moles /volume] in Serum or PlasmaOrdered By: Jacky Alarcon on 03-10-2023 CO2 [Moles/Vol] 18.8 mmol/L 21.0-31.0 [facility] Chloride [Moles/volume] in S rahul or PlasmaOrdered By: Jacky Alarcon on 03-10-2023 Chloride [Moles/Vol] 101 mmol/L 98-107 [facility] Choriogonadotropin.beta subu nit [Units/volume] in Serum or PlasmaOrdered By: Jacky Alarcon on 03-10-2023 [place] [address].00 m[IU]/mL [facility] Comment on above: Approximate Approxim ate hCG Gestational Age Range (mIU/ml) (weeks)0.2-1 5-50 1-2 50-500 2-3 100-5,000 3-4 500-10,000 4-5 1,000-50,000 5-6 10,000-100,000 6-8 15,000-200,000 8-12 10,000-100,000 Color Auto (U)Ordered By: Corinna Alarcon on 03-10-2023 Color (U) Dark yellow Yellow [facility] Complete Blood Count Auto Di ffon 03-10-2023 Basophils (Bld) [#/Vol] 0.1 10*3/uL Normal 0.0-0.2 [facility] Comment on above: Result Comment: PERF ORMED BY: [facility] [address] [place] [address] PATHOLOGIST SETTER OFF ANDRÉS MACEDO M.D. Performed By: #### L IPASE, HCGQNT, HEPATIC, BMP, CBC #### [address] Basophils/100 WBC (Bld) 0.4 % Normal . [facility] Comment on above: Performed By: #### L IPASE, HCGQNT, HEPATIC, BMP, CBC #### [address] Eosinophils (Bld) [#/Vol] 0.1 10*3/uL Normal 0.0-0.45 [facility] Comment on above: Performed By: #### L IPASE, HCGQNT, HEPATIC, BMP, CBC #### [address] Eosinophils/100 WBC (Bld) 0.5 % Normal . [facility] Comment on above: Performed By: #### L IPASE, HCGQNT, HEPATIC, BMP, CBC #### [address] Erythrocyte distribution width (RBC) [Ratio] 13.3 % Normal 11.9-15.3 [facility] Comment on above: Performed By: #### L IPASE, HCGQNT, HEPATIC, BMP, CBC #### [address] Hematocrit (Bld) [Volume fraction] 47.2 % High 34.0-46.4 [facility] Comment on above: Performed By: #### L IPASE, HCGQNT, HEPATIC, BMP, CBC #### [address] Hemoglobin (Bld) [Mass/Vol] 16.5 g/dL High 11.8-15.4 [facility] Comment on above: Performed By: #### L IPASE, HCGQNT, HEPATIC, BMP, CBC #### [address] Lymphocytes (Bld) [#/Vol] 1.9 10*3/uL Normal 1.00-4.8 [facility] Comment on above: Performed By: #### L IPASE, HCGQNT, HEPATIC, BMP, CBC #### [address] Lymphocytes/100 WBC (Bld) 11.6 % Normal . [facility] Comment on above: Performed By: #### L IPASE, HCGQNT, HEPATIC, BMP, CBC #### [address] MCH (RBC) [Entitic mass] 30.8 pg Normal 24.7-34.3 [facility] Comment on above: Performed By: #### L IPASE, HCGQNT, HEPATIC, BMP, CBC #### [address] MCV (RBC) [Entitic vol] 87.8 fL Normal 80-100 [facility] Comment on above: Performed By: #### L IPASE, HCGQNT, HEPATIC, BMP, CBC #### [address] Mean Corpuscular HGB Conc 35.0 g/dL Normal 32.0-35.0 [facility] Comment on above: Performed By: #### L IPASE, HCGQNT, HEPATIC, BMP, CBC #### [address] Monocytes (Bld) [#/Vol] 1.4 10*3/uL High 0.0-0.8 [facility] Comment on above: Performed By: #### L IPASE, HCGQNT, HEPATIC, BMP, CBC #### [place] [address] [place] Monocytes/100 WBC (Bld) 16.05 % Normal 0.00-20.00 [facility] Comment on above: Performed By: #### L IPASE, HCGQNT, HEPATIC, BMP, CBC #### [address] Monocytes/100 WBC (Bld) 8.8 % Normal . [facility] Comment on above: Performed By: #### L IPASE, HCGQNT, HEPATIC, BMP, CBC #### [place] [address] [place] Neutrophils (Bld) [#/Vol] 12.6 10*3/uL High 1.8-7.7 [facility] Comment on above: Performed By: #### L IPASE, HCGQNT, HEPATIC, BMP, CBC #### [place] [address] [place] Neutrophils/100 WBC (Bld) 78.7 % Normal . [facility] Comment on above: Performed By: #### L IPASE, HCGQNT, HEPATIC, BMP, CBC #### [address] NRBC% 0.1 /100{WBC} Normal 0-0.5 [facility] Comment on above: Performed By: #### L IPASE, HCGQNT, HEPATIC, BMP, CBC #### [address] Platelet mean volume (Bld) [Entitic vol] 9.7 fL Normal 6.3-10.7 [facility] Comment on above: Performed By: #### L IPASE, HCGQNT, HEPATIC, BMP, CBC #### [place] [address] [place] Platelets (Bld) [#/Vol] 263 10*3/uL Normal 150-450 [facility] Comment on above: Performed By: #### L IPASE, HCGQNT, HEPATIC, BMP, CBC #### [place] [address] [place] RBC (Bld) [#/Vol] 5.37 10*6/uL High 3.60-5.00 [facility] Comment on above: Performed By: #### L IPASE, HCGQNT, HEPATIC, BMP, CBC #### [place] [address] [place] WBC (Bld) [#/Vol] 16.0 10*3/uL High 3.8-11.6 [facility] Comment on above: Performed By: #### L IPASE, HCGQNT, HEPATIC, BMP, CBC #### [facility] [address] Creatinine [Mass/volume] in Serum or PlasmaOrdered By: Jacky Alarcon on 03-10-2023 Creatinine [Mass/Vol] 0.64 mg/dL 0.60-1.20 [facility] Dipstick and Microscopicon 1 05-11-2022 Appearance (U) Turbid Critically abnormal Clear [facility] Comment on above: Order Comment: Name Collection Type:: Clean-Voided Midstream Performed By: #### A DDONUAPLUS, CUU #### [facility] [address] [place] [address] [place] Bacteria,Urine Rare High None Seen [facility] Comment on above: Order Comment: Name Collection Type:: Clean-Voided Midstream Performed By: #### A DDONUAPLUS, CUU #### [facility] [address] [place] [address] [place] Bilirubin,Urine Negative Normal Negative [facility] Comment on above: Order Comment: Name Collection Type:: Clean-Voided Midstream Performed By: #### A DDONUAPLUS, CUU #### [facility] [address] [place] [address] [place] Color (U) Dark Yellow Critically abnormal Yellow [facility] Comment on above: Order Comment: Name Collection Type:: Clean-Voided Midstream Performed By: #### A DDONUAPLUS, CUU #### [facility] [address] [place] [address] [place] Glucose Ql (U) Normal Normal Normal [facility] Comment on above: Order Comment: Name Collection Type:: Clean-Voided Midstream Performed By: #### A DDONUAPLUS, CUU #### [facility] [address] [place] [address] [place] Hyaline Casts,Urine 9-19 High 0-8 [facility] Comment on above: Order Comment: Name Collection Type:: Clean-Voided Midstream Result Comment: PERF ORMED BY: [address] [place] [address] PATHOLOGIST SETTER OFF ANDRÉS MACEDO M.D. Performed By: #### A DDONUAPLUS, CUU #### [address] Ketones Ql (U) 4+ High Negative [facility] Comment on above: Order Comment: Name Collection Type:: Clean-Voided Midstream Performed By: #### A DDONUAPLUS, CUU #### [address] Leukocyte esterase Test strip Ql (U) 1+ High Negative [facility] Comment on above: Order Comment: Name Collection Type:: Clean-Voided Midstream Performed By: #### A DDONUAPLUS, CUU #### [address] Nitrite,Urine Negative Normal Negative [facility] Comment on above: Order Comment: Name Collection Type:: Clean-Voided Midstream Performed By: #### A DDONUAPLUS, CUU #### [address] Occult Blood,Urine 3+ High Negative [facility] Comment on above: Order Comment: Name Collection Type:: Clean-Voided Midstream Result Comment: PERF ORMED BY: [place] [address] PATHOLOGIST SETTER OFF ANDRÉS MACEDO M.D. Performed By: #### A DDONUAPLUS, CUU #### [address] Othe Crystals,Urine Normal [facility] Comment on above: Order Comment: Name Collection Type:: Clean-Voided Midstream Result Comment: sulf a crystals Performed By: #### A DDONUAPLUS, CUU #### [address] pH (U) 6.5 [pH] Normal 5.0-9.0 [facility] Comment on above: Order Comment: Name Collection Type:: Clean-Voided Midstream Performed By: #### A DDONUAPLUS, CUU #### [address] Protein (U) [Mass/Vol] 100 mg/dL High Negative [facility] Comment on above: Order Comment: Name Collection Type:: Clean-Voided Midstream Performed By: #### A DDONUAPLUS, CUU #### [address] RBC,Urine 50-100 High 0-4 [facility] Comment on above: Order Comment: Name Collection Type:: Clean-Voided Midstream Performed By: #### A DDONUAPLUS, CUU #### [address] Specificy [place],Urine 1.029 Normal 1.001-1.03 0 [facility] Comment on above: Order Comment: Name Collection Type:: Clean-Voided Midstream Performed By: #### A DDONUAPLUS, CUU #### [address] Squamous Epithelial Cell,Urine 1-2 Normal 0-2 [facility] Comment on above: Order Comment: Name Collection Type:: Clean-Voided Midstream Performed By: #### A DDONUAPLUS, CUU #### [address] Urobilinogen,Urine Normal Normal Normal [facility] Comment on above: Order Comment: Name Collection Type:: Clean-Voided Midstream Performed By: #### A DDONUAPLUS, CUU #### [address] WBC,Urine 5-9 High 0-4 [facility] Comment on above: Order Comment: Name Collection Type:: Clean-Voided Midstream Performed By: #### A DDONUAPLUS, CUU #### [address] Eosinophils Auto (Bld) [#/Vo l]Ordered By: Jacky Alarcon on 03-10-2023 Eosinophils (Bld) [#/Vol] 0.1 10*3/uL 0.0-0.45 [facility] Eosinophils/100 WBC Auto (Bl d)Ordered By: Jacky Alarcon on 03-10-2023 Eosinophils/100 WBC (Bld) 0.5 % . [facility] Erythrocyte distribution wid th Auto (RBC) [Ratio]Ordered By: Jacky Alarcon on 03-10-2023 Erythrocyte distribution width (RBC) [Ratio] 13.3 % 11.9-15.3 [facility] Globulin Calc (S) [Mass/Vol] Ordered By: Jacky Alarcon on 03-10-2023 Globulin (S) [Mass/Vol] 3.5 g/dL [facility] Glucose [Mass/volume] in Ser um or PlasmaOrdered By: Jacky Alarcon on 03-10-2023 Glucose [Mass/Vol] 83 mg/dL 70-100 [facility] Comment on above: ADA recommended refe rence rangeRandom Glucose Reference Range is dependent on time and content of last meal. Glucose of more than 200 mg/dL in a nonstressed, ambulatory subject supports the diagnosis of Diabetes Mellitus. HCG ( test) [place].rapi d Ql (U)Ordered By: Jacky Alarcon on 03-10-2023 HCG ( test) Ql (U) Positive [facility] HCG,Quantitativeon 3 HCG,Quantitative 52576.00 m[iU]/mL Normal F [facility] Comment on above: Result Comment: Appr oximate Approximate hCG Gestational Age Range (mIU/ml) (weeks) 0.2-1 5-50 1-2 50-500 2-3 100-5,000 3-4 500-10,000 4-5 1,000-50,000 5-6 10,000-100,000 6-8 15,000-200,000 8-12 10,000-100,000 PERFORMED BY: [place] [address] PATHOLOGIST SETTER OFF ANDRÉS MACEDO M.D. Performed By: #### L IPASE, HCGQNT, HEPATIC, BMP, CBC #### [address] HCG,Urineon 03-10-2023 Beta HCG ( test) Ql (U) Positive High [facility] Comment on above: Result Comment: PERF ORMED BY: [place] [address] PATHOLOGIST SETTER OFF ANDRÉS MACEDO M.D. Performed By: #### U HCG #### [facility] [address] [place] [address] Hematocrit Auto (Bld) [Volum e fraction]Ordered By: Jacky Alarcon on 03-10-2023 Hematocrit (Bld) [Volume fraction] 47.2 % 34.0-46.4 [facility] Hemoglobin [Mass/volume] in BloodOrdered By: Jacky Alarcon on 03-10-2023 Hemoglobin (Bld) [Mass/Vol] 16.5 g/dL 11.8-15.4 [facility] Hepatic Panelon 03-10-2023 Albumin [Mass/Vol] 4.5 g/dL Normal 3.5-5.7 [facility] Comment on above: Performed By: #### L IPASE, HCGQNT, HEPATIC, BMP, CBC #### [facility] [address] [place] [address] [place] Albumin/Globulin [Mass ratio] 1.3 {ratio} Normal [facility] Comment on above: Performed By: #### L IPASE, HCGQNT, HEPATIC, BMP, CBC #### [facility] [address] [place] [address] [place] ALP [Catalytic activity/Vol] 71 U/L Normal 34-104 [facility] Comment on above: Performed By: #### L IPASE, HCGQNT, HEPATIC, BMP, CBC #### [facility] [address] [place] [address] [place] ALT [Catalytic activity/Vol] 36 U/L Normal 7-52 [facility] Comment on above: Performed By: #### L IPASE, HCGQNT, HEPATIC, BMP, CBC #### [facility] [address] [place] [address] [place] AST [Catalytic activity/Vol] 17 U/L Normal 13-39 [facility] Comment on above: Performed By: #### L IPASE, HCGQNT, HEPATIC, BMP, CBC #### [facility] [address] Bilirubin [Mass/Vol] 1.2 mg/dL High 0.3-1.0 [facility] Comment on above: Performed By: #### L IPASE, HCGQNT, HEPATIC, BMP, CBC #### [facility] [address] Bilirubin,Indirect 0.8 mg/dL Normal [facility] Comment on above: Performed By: #### L IPASE, HCGQNT, HEPATIC, BMP, CBC #### [facility] [address] Bilirubin.indirect [Mass/Vol] 0.40 mg/dL High 0.03-0.18 [facility] Comment on above: Performed By: #### L IPASE, HCGQNT, HEPATIC, BMP, CBC #### [address] Globulin (S) [Mass/Vol] 3.5 g/dL Normal [facility] Comment on above: Performed By: #### L IPASE, HCGQNT, HEPATIC, BMP, CBC #### [address] Protein [Mass/Vol] 8.0 g/dL Normal 6.4-8.9 [facility] Comment on above: Performed By: #### L IPASE, HCGQNT, HEPATIC, BMP, CBC #### [facility] [address] [place] [address] Ketones Auto test strip (U) [Mass/Vol]Ordered By: Jacky Alarcon on 03-10-2023 Ketones (U) [Mass/Vol] 4+ Negative [facility] - UrinalysisOrder ed By: Jacky Alarcon on 03-10-2023 Hyaline casts LM Ql (Urine sed) 9-19 [LPF] 0-8 [facility] Leukocytes [#/volume] correc anabell for nucleated erythrocytes in Blood by Automated counOrdered By: Jacky Alarcon on 03-10-2023 WBC corrected for nucl RBC Auto (Bld) [#/Vol] 16.0 10*3/uL 3.8-11.6 [facility] Lipaseon 03-10-2023 Lipase [Catalytic activity/Vol] 35.0 U/L Normal 11.0-82.0 [facility] Comment on above: Result Comment: PERF ORMED BY: [facility] [address] [id number] PATHOLOGIST SETTER OFF ANDRÉS MACEDO M.D. Performed By: #### L IPASE, HCGQNT, HEPATIC, BMP, CBC #### [facility] [address] Lipase [Enzymatic activity/v olume] in Serum or PlasmaOrdered By: Jacky Alarcon on 03-10-2023 Lipase [Catalytic activity/Vol] 35.0 U/L 11.0-82.0 [facility] Lymphocytes Auto (Bld) [#/Vo l]Ordered By: Jacky Alarcon on 03-10-2023 Lymphocytes (Bld) [#/Vol] 1.9 10*3/uL 1.00-4.8 [facility] Lymphocytes/100 WBC Auto (Bl d)Ordered By: Jacky Alarcon on 03-10-2023 Lymphocytes/100 WBC (Bld) 11.6 % . [facility] MCH Auto (RBC) [Entitic mass ]Ordered By: Jacky Alarcon on 03-10-2023 MCH (RBC) [Entitic mass] 30.8 pg 24.7-34.3 [facility] MCHC Auto (RBC) [Mass/Vol]Or dered By: Jacky Alarcon on 03-10-2023 MCHC (RBC) [Mass/Vol] 35.0 g/dL 32.0-35.0 [facility] MCV Auto (RBC) [Entitic vol] Ordered By: Jacky Alarcon on 03-10-2023 MCV (RBC) [Entitic vol] 87.8 fL 80-100 [facility] Monocyte distribution width [Entitic volume] in Blood by AutomatedOrdered By: Jacky Alarcon on 03-10-2023 Monocyte distribution width Auto (Bld) [Entitic vol] 16.05 % 0.00-20.00 [facility] Monocytes Auto (Bld) [#/Vol] Ordered By: Jacky Alarcon on 03-10-2023 Monocytes (Bld) [#/Vol] 1.4 10*3/uL 0.0-0.8 [facility] Monocytes/100 WBC Auto (Bld) Ordered By: Jacky Alarcon on 03-10-2023 Monocytes/100 WBC (Bld) 8.8 % . [facility] Neutrophils Auto (Bld) [#/Vo l]Ordered By: Jacky Alarcon on 03-10-2023 Neutrophils (Bld) [#/Vol] 12.6 10*3/uL 1.8-7.7 [facility] Neutrophils/100 WBC Auto (Bl d)Ordered By: Jacky Alarcon on 03-10-2023 Neutrophils/100 WBC (Bld) 78.7 % . [facility] Nitrite Test strip Ql (U)Ord ered By: Jacky Alarcon on 03-10-2023 Nitrite Ql (U) Negative Negative [facility] No Panel InformationOrdered By: Jacky Alarcon on 03-10-2023 Estimated GFR (CKD-EPI) > 60.0 mL/Min [facility] Creatinine Clearance (Chem 148.58 [facility] Nucleated erythrocytes [Pres ence] in Blood by Automated countOrdered By: Jacky Alarcon on 03-10-2023 Nucleated RBC Auto Ql (Bld) 0.1 /100{WBC} 0-0.5 [facility] Platelet mean volume Auto (B ld) [Entitic vol]Ordered By: Jacky Alarcon on 03-10-2023 Platelet mean volume (Bld) [Entitic vol] 9.7 fL 6.3-10.7 [facility] Platelets Auto (Bld) [#/Vol] Ordered By: Jacky Alarcon on 03-10-2023 Platelets (Bld) [#/Vol] 263 10*3/uL 150-450 [facility] Potassium [Moles/volume] in Serum or PlasmaOrdered By: Jacky Alarcon on 03-10-2023 Potassium [Moles/Vol] 3.3 mmol/L 3.5-5.1 [facility] Protein Auto test strip (U) [Mass/Vol]Ordered By: Jacky Alarcon on 03-10-2023 Protein (U) [Mass/Vol] 100 mg/dL Negative [facility] Protein [Mass/volume] in Ser um or PlasmaOrdered By: Jacky Alarcon on 03-10-2023 Protein [Mass/Vol] 8.0 g/dL 6.4-8.9 [facility] RBC Auto (Bld) [#/Vol]Ordere d By: Jacky Alarcon on 03-10-2023 RBC (Bld) [#/Vol] 5.37 10*6/uL 3.60-5.00 [facility] Serum or plasma albumin/glob ulin mass ratioOrdered By: Jacky Alarcon on 03-10-2023 Albumin/Globulin [Mass ratio] 1.3 {ratio} [facility] Serum or plasma anion gap de terminationOrdered By: Jacky Alarcon on 03-10-2023 Anion gap [Moles/Vol] 16.5 mmol/L 6.0-15.0 [facility] Serum or plasma non-glucuron idated bilirubin measurement (mass/volume)Ordered By: Jacky Alarcon on 03-10-2023 Bilirubin.indirect [Mass/Vol] 0.8 mg/dL [facility] Sodium [Moles/volume] in Ser um or PlasmaOrdered By: Jacky Alarcon on 03-10-2023 Sodium [Moles/Vol] 133 mmol/L 136-145 [facility] Specific gravity Auto test s trip (U) [Rel density]Ordered By: Jacky Alarcon on 03-10-2023 Specific gravity (U) [Rel density] 1.029 1.001-1.03 0 [facility] Squamous epithelial cells de tection in urine sediment by light microscopyOrdered By: Jacky Alarcon on 03-10-2023 Epithelial cells.squamous LM Ql (Urine sed) 1-2 [HPF] 0-2 [facility] Urea nitrogen [Mass/volume] in Serum or PlasmaOrdered By: Jacky Alarcon on 03-10-2023 Urea nitrogen [Mass/Vol] 6 mg/dL 7-25 [facility] Urine Cultureon 03-10-2023 Bacteria identified Cx Nom (U) >100,000 colonies/ml mixed bacterial skin contaminants 2 Days PERFORMED BY: [address] [place] [address] [place] [address] PATHOLOGIST SETTER OFF ANDRÉS MACEDO M.D. Normal [facility] Comment on above: Performed By: #### A DDONUAPLUS, CUU #### [facility] [address] Urine bacteria detection by automated methodOrdered By: Jacky Alarcon on 03-10-2023 Bacteria Auto Ql (U) Rare None Seen [facility] Urine clarity by refractomet ry automatedOrdered By: Jacky Alarcon on 03-10-2023 Clarity Refractometry automated (U) Turbid Clear [facility] Urine glucose measurement by automated test strip (mass/volume)Ordered By: Jacky Alarcon on 03-10-2023 Glucose Auto test strip (U) [Mass/Vol] Normal mg/dL Normal [facility] Urine hemoglobin detection b y automated test stripOrdered By: Jacky Alarcon on 03-10-2023 Hemoglobin Auto test strip Ql (U) 3+ Negative [facility] Urine leukocyte esterase det ection by automated test stripOrdered By: Jacky Alarcon on 03-10-2023 Leukocyte esterase Auto test strip Ql (U) 1+ Negative [facility] Urine sediment crystal ident ification by light microscopyOrdered By: Jacky Alarcon on 03-10-2023 Crystals LM Nom (Urine sed) See comment [facility] Comment on above: sulfa crystals Urobilinogen Auto test strip (U) [Mass/Vol]Ordered By: Jacky Alarcon on 03-10-2023 Urobilinogen (U) [Mass/Vol] Normal mg/dL Normal [facility] WBC Auto (Bld) [#/Vol]Ordere d By: Jacky Alarcon on 03-10-2023 WBC (Bld) [#/Vol] 16.0 10*3/uL 3.8-11.6 [facility] pH Auto test strip (U)Ordere d By: Jacky Alarcon on 03-10-2023 pH (U) 6.5 [pH] 5.0-9.0 [facility] CBC AUTO DIFFon 07-30-2022 BASO # 0.1 103/ul Normal 0.0-0.1 [facility] Comment on above: Performed By: #### G TT3P #### [facility] [address] [address] [address] Jackelyn Celestin Basophils/100 WBC (Bld) 0.6 % Normal 0.2-2.0 [facility] Comment on above: Performed By: #### G TT3P #### [facility] [address] [place] [address] Dr. Jackelyn Celestin EO # 0.2 103/ul Normal 0.0-0.7 [facility] Comment on above: Performed By: #### G TT3P #### [facility] [address] [place] [address] Dr. Jackelyn Celestin Eosinophils/100 WBC (Bld) 1.5 % Normal 0.9-7.0 [facility] Comment on above: Performed By: #### G TT3P #### [facility] [address] [place] [address] Dr. Jackelyn Celestin Erythrocyte distribution width (RBC) [Ratio] 14.5 % Normal 11.0-15.0 [facility] Comment on above: Performed By: #### G TT3P #### [facility] [address] [place] [address] Dr. Jackelyn Celestin Hematocrit (Bld) [Volume fraction] 33.9 % Critically low 36.0-48.0 [facility] Comment on above: Performed By: #### G TT3P #### [facility] [address] [place] [address] Dr. Jackelyn Celestin Hemoglobin (Bld) [Mass/Vol] 11.0 g/dL Critically low 12.0-16.0 [facility] Comment on above: Performed By: #### G TT3P #### [facility] [address] [place] [address] Dr. Jackelyn Celestin IG # 0.13 10e3/ul Critically high 0.00-0.03 [facility] Comment on above: Performed By: #### G TT3P #### [facility] [address] [place] [address] Dr. Jackelyn Celestin IG % 1.1 % Critically high 0.0-0.5 [facility] Comment on above: Performed By: #### G TT3P #### [facility] [address] [place] [address] Dr. Jackelyn Celestin LYMPH # 2.2 103/ul Normal 1.2-3.8 [facility] Comment on above: Performed By: #### G TT3P #### [facility] [address] [place] [address] Dr. Jackelyn Celestin Lymphocytes/100 WBC (Bld) 17.9 % Critically low 20.5-60.0 [facility] Comment on above: Performed By: #### G TT3P #### [facility] [address] [place] [address] Dr. Jackelyn Celestin MANUAL DIFF REQ NO Normal [facility] Comment on above: Performed By: #### G TT3P #### [facility] [address] [place] [address] Dr. Jackelyn Celestin MCH (RBC) [Entitic mass] 28.6 pg Normal 26.7-34.0 [facility] Comment on above: Performed By: #### G TT3P #### [facility] [address] [place] [address] Dr. Jackelyn Celestin MCHC (RBC) [Mass/Vol] 32.4 g/dL Normal 29.9-35.2 [facility] Comment on above: Performed By: #### G TT3P #### [facility] [address] [place] [address] Dr. Jackelyn Celestin MCV (RBC) [Entitic vol] 88.1 fL Normal 81.0-99.0 [facility] Comment on above: Performed By: #### G TT3P #### [facility] [address] [place] [address] Dr. Jackelyn Celestin MONO # 0.8 103/ul Normal 0.3-0.8 [facility] Comment on above: Performed By: #### G TT3P #### [facility] [address] [place] [address] Dr. Jackelyn Celestin Monocytes/100 WBC (Bld) 6.9 % Normal 1.7-12.0 [facility] Comment on above: Performed By: #### G TT3P #### [facility] [address] [place] [address] Dr. Jackelyn Celestin NEUT # 8.7 103/ul Critically high 1.4-6.5 [facility] Comment on above: Performed By: #### G TT3P #### [facility] [address] [place] [address] Dr. Jackelyn Celestin Neutrophils/100 WBC (Bld) 72.0 % Normal 43.0-75.0 [facility] Comment on above: Performed By: #### G TT3P #### [facility] [address] [place] [address] Dr. Jackelyn Celestin Platelet mean volume (Bld) [Entitic vol] 11.5 fL Normal 9.5-13.5 [facility] Comment on above: Performed By: #### G TT3P #### [facility] [address] [place] [address] Dr. Jackelyn Celestin PLT 146 103/ul Critically low 150-450 [facility] Comment on above: Performed By: #### G TT3P #### [facility] [address] [place] [address] Dr. Jackelyn Celestin RBC 3.85 106/ul Critically low 4.20-5.40 [facility] Comment on above: Performed By: #### G TT3P #### [facility] [address] [place] [address] Dr. Jackelyn Celestin WBC 12.1 103/ul Critically high 4.0-11.0 [facility] Comment on above: Performed By: #### G TT3P #### [facility] [address] [place] [address] Dr. Jackelyn Celestin CBC AUTO DIFFon 07-29-2022 BASO # 0.0 103/ul Normal 0.0-0.1 [facility] Comment on above: Performed By: #### [id number] #### [facility] [address] [place] [address] Dr. Jackelyn Celestin Basophils/100 WBC (Bld) 0.4 % Normal 0.2-2.0 [facility] Comment on above: Performed By: #### [id number] #### [facility] [address] [place] [address] Dr. Jackelyn Celestin EO # 0.2 103/ul Normal 0.0-0.7 [facility] Comment on above: Performed By: #### 4 [id number] #### [facility] [address] [place] [address] Dr. Jackelyn Celestin Eosinophils/100 WBC (Bld) 1.4 % Normal 0.9-7.0 [facility] Comment on above: Performed By: #### [id number] #### [facility] [address] [place] [address] Dr. Jakcelyn Celestin Erythrocyte distribution width (RBC) [Ratio] 14.1 % Normal 11.0-15.0 [facility] Comment on above: Performed By: #### 4 [id number] #### [facility] [address] [place] [address] Dr. Jackelyn Celestin Hematocrit (Bld) [Volume fraction] 36.0 % Normal 36.0-48.0 [facility] Comment on above: Performed By: #### 4 [id number] #### [facility] [address] [place] [address] Dr. Jackelyn Celestin Hemoglobin (Bld) [Mass/Vol] 12.2 g/dL Normal 12.0-16.0 [facility] Comment on above: Performed By: #### 4 [id number] #### [facility] [address] [place] [address] Dr. Jackelyn Celestin IG # 0.10 10e3/ul Critically high 0.00-0.03 [facility] Comment on above: Performed By: #### 4 [id number] #### [facility] [address] [place] [address] Dr. Jackelyn Celestin IG % 0.9 % Critically high 0.0-0.5 [facility] Comment on above: Performed By: #### 4 [id number] #### [facility] [address] [place] [address] Dr. Jackelyn Celestin LYMPH # 1.9 103/ul Normal 1.2-3.8 [facility] Comment on above: Performed By: #### 4 [id number] #### [facility] [address] [place] [address] Dr. Jackelyn Celestin Lymphocytes/100 WBC (Bld) 17.7 % Critically low 20.5-60.0 [facility] Comment on above: Performed By: #### 4 [id number] #### [facility] [address] [place] [address] Dr. Jackelyn Celestin MANUAL DIFF REQ NO Normal [facility] Comment on above: Performed By: #### 4 [id number] #### [facility] [address] [place] [address] Dr. Jackelyn Celestin MCH (RBC) [Entitic mass] 28.8 pg Normal 26.7-34.0 [facility] Comment on above: Performed By: #### 4 [id number] #### [facility] [address] [place] [address] Dr. Jackelyn Celestin MCHC (RBC) [Mass/Vol] 33.9 g/dL Normal 29.9-35.2 [facility] Comment on above: Performed By: #### 4 [id number] #### [facility] [address] [place] [address] Dr. Jackelyn Celestin MCV (RBC) [Entitic vol] 84.9 fL Normal 81.0-99.0 [facility] Comment on above: Performed By: #### 4 [id number] #### [facility] [address] [place] [address] Dr. Jackelyn Celestin MONO # 0.9 103/ul Critically high 0.3-0.8 [facility] Comment on above: Performed By: #### 4 [id number] #### [facility] [address] [place] [address] Dr. Jackelyn Celestin Monocytes/100 WBC (Bld) 8.4 % Normal 1.7-12.0 [facility] Comment on above: Performed By: #### 4 [id number] #### [facility] [address] [place] [address] Dr. Jackelyn Celestin NEUT # 7.7 103/ul Critically high 1.4-6.5 [facility] Comment on above: Performed By: #### 4 [id number] #### [facility] [address] [place] [address] Dr. Jackelyn Celestin Neutrophils/100 WBC (Bld) 71.2 % Normal 43.0-75.0 [facility] Comment on above: Performed By: #### 4 [id number] #### [facility] [address] [place] [address] Dr. Jackelyn Celestin Platelet mean volume (Bld) [Entitic vol] 10.9 fL Normal 9.5-13.5 [facility] Comment on above: Performed By: #### 4 [id number] #### [facility] [address] [place] [address] Dr. Jackelyn Celestin PLT 170 103/ul Normal 150-450 [facility] Comment on above: Performed By: #### 4 [id number] #### [facility] [address] [place] [address] Dr. Jackelyn Celestin RBC 4.24 106/ul Normal 4.20-5.40 [facility] Comment on above: Performed By: #### 4 [id number] #### [facility] [address] [place] [address] Dr. Jackelyn Celestin WBC 10.8 103/ul Normal 4.0-11.0 [facility] Comment on above: Performed By: #### [id number] #### [facility] [address] [place] [address] Dr. Jackelyn Celestin DRUG SCREEN RAPID (URINE)on 07-29-2022 AMP Negative Normal NEGATIVE [facility] Comment on above: Performed By: #### 4 [id number] #### [facility] [address] [place] [address] Dr. Jackelyn Celestin BAR Negative Normal NEGATIVE [facility] Comment on above: Performed By: #### 4 [id number] #### [facility] [address] [place] [address] Dr. Jackelyn Celestin BUP Negative Normal NEGATIVE [facility] Comment on above: Performed By: #### 4 [id number] #### [facility] [address] [place] [address] Dr. Jackelyn Celestin BZO Negative Normal NEGATIVE [facility] Comment on above: Performed By: #### 4 [id number] #### [facility] [address] [place] [address] Dr. Jackelyn Celestin HOMERO Negative Normal NEGATIVE [facility] Comment on above: Performed By: #### 4 [id number] #### [facility] [address] [place] [address] Dr. Jackelyn Celestin CUT-OFFS SEE BELOW Normal [facility] Comment on above: Result Comment: AMP (Amphetamine): 500ng/mL, BAR (Barbituates): 200 ng/mL, BZO (Benzodiazepines): 150 ng/mL, BUP (Buprenorphine): 10 ng/mL, HOMERO (Cocaine): 150 ng/mL, mAMP (Methamphetamine): 500 ng/mL, MTD (Methadone): 200 ng/mL, OPI (Opiates): 100 ng/mL, OXY (Oxycodone): 100 ng/mL, PCP (Phencyclidine): 25 ng/mL, PPX (Propoxyphene): 300 ng/mL, THC (Cannabinoids): 50 ng/mL, TCA (Trycyclic Antidepressants): 300 ng/mL Performed By: #### [id number] #### [facility] [address] [place] [address] Dr. Jackelyn Celestin DRUG CUT HEADER DRUG CLASS TEST SYST EM CUT-OFF CONCENTRATIONS ARE FOLLOWS: Normal [facility] Comment on above: Performed By: #### [id number] #### [facility] [address] [place] [address] Dr. Jackelyn Celestin mAMP Negative Normal NEGATIVE [facility] Comment on above: Performed By: #### 4 [id number] #### [facility] [address] [place] [address] Dr. Jackelyn Celestin MTD Negative Normal NEGATIVE [facility] Comment on above: Performed By: #### [id number] #### [facility] [address] [place] [address] Dr. Jackelyn Celestin OPI Negative Normal NEGATIVE [facility] Comment on above: Performed By: #### [id number] #### [facility] [address] [place] [address] Dr. Jackelyn Celestin OXY Negative Normal NEGATIVE [facility] Comment on above: Performed By: #### 4 [id number] #### [facility] [address] [place] [address] Dr. Jackelyn Celestin PCP Negative Normal NEGATIVE [facility] Comment on above: Performed By: #### 4 [id number] #### [facility] [address] [place] [address] Dr. Jackelyn Celestin PPX Negative Normal NEGATIVE [facility] Comment on above: Performed By: #### [id number] #### [facility] [address] [place] [address] Dr. Jackelyn Celestin TCA Negative Normal NEGATIVE [facility] Comment on above: Performed By: #### 4 [id number] #### [facility] [address] [place] [address] Dr. Jackelyn Celestin THC Negative Normal NEGATIVE [facility] Comment on above: Performed By: #### 4 [id number] #### [facility] [address] [place] [address] Dr. Jackelyn Celestin TYPE AND SCREENon 07-29-2022 TYPE AND SCREEN Negative Normal [facility] Comment on above: Performed By: #### G TT3P #### [facility] [address] [place] [address] Dr. Jackelyn Celestin US PREG GROWTHon 07-25-2022 [...] TRISTAN HART Date: 2022-07-24 22:37 Normal [facility] GROUP B STREP CULTUREon 06-09 S. agalactiae Ag Ql (Unsp spec) Culture Observations: NEGATIVE FOR GROUP B STREPTOCOCCUS. Normal [facility] Comment on above: Performed By: #### G TT3P #### [facility] [address] [place] [address] Dr. Jackelyn Celestin US PREG GROWTHon 06-06-2022 [...] TRISTAN HART Date: 2022-06-06 15:39 Normal [facility] GTT 3 HR PREGon 05-21-2022 Glucose [Mass/Vol] 91 mg/dL Normal 74-106 [facility] Comment on above: Performed By: #### G TT3P #### [facility] [address] [place] [address] Dr. Jackelyn Celestin Glucose [Mass/Vol] 168 mg/dL Normal [facility] Comment on above: Performed By: #### G TT3P #### [facility] [address] [address] [address] Jackelyn Celestin Glucose [Mass/Vol] 121 mg/dL [facility] Comment on above: Performed By: #### G TT3P #### [facility] [address] [place] [address] Dr. Jackelyn Celestin Glucose [Mass/Vol] 86 mg/dL [facility] Comment on above: Performed By: #### G TT3P #### [facility] [address] [place] [address] Dr. Jackelyn Celestin PAP ACOG PANEL 2: 21 to 29on 05-17-2022 . . Normal [facility] Comment on above: Performed By: #### [id number] #### [facility] [address] [place] [address] Dr. Jackelyn Celestin DIAGNOSIS: Comment [facility] Comment on above: Result Comment: NEGA TIVE FOR INTRAEPITHELIAL LESION OR MALIGNANCY. Performed By: #### 4 [id number] #### [facility] [address] [place] [address] Dr. Jackelyn Celestin Methodology: Comment [facility] Comment on above: Result Comment: This liquid based ThinPrep(R) pap test was screened with the use of an image guided system. Performed By: #### 4 [id number] #### [facility] [address] [place] [address] Dr. Jackelyn Celestin Note: Comment [facility] Comment on above: Result Comment: The Pap smear is a screening test designed to aid in the detection of premalignant and malignant conditions of the uterine cervix. It is not a diagnostic procedure and should not be used as the sole means of detecting cervical cancer. Both false-positive and false-negative reports do occur. . Performed By: #### 4 [id number] #### [facility] [address] [place] [address] Dr. Jackelyn Celestin Performed by: Comment [facility] Comment on above: Result Comment: Alphonso Walker, Private Duty Nurse (ASCP) Performed By: #### 4 [id number] #### [facility] [address] [place] [address] Dr. Jackelyn Celestin Reflex Criteria: Comment Normal [facility] Comment on above: Result Comment: The HPV DNA reflex criteria were not met with this specimen result therefore, no HPV testing was performed. . Performed By: #### 4 [id number] #### [facility] [address] [place] [address] Dr. Jackelyn Celestin Specimen adequacy: Comment Normal [facility] Comment on above: Result Comment: Sati sfactory for evaluation. No endocervical component is identified. Performed By: #### 4 [id number] #### [facility] [address] [place] [address] Dr. Jackelyn Celestin Age Gdln ACOG Testing 21-29 Normal [facility] Comment on above: Performed By: #### 4 [id number] #### [facility] [address] [place] [address] Dr. Jackelyn Celestin CHLAMYDIA/GONOCOCCUS ALONDRA ( AB/URINE/PAPon 05-14-2022 Chlamydia trachomatis, ALONDRA Negative Normal Negative [facility] Comment on above: Performed By: #### G TT3P #### [facility] [address] [place] [address] Dr. Jackelyn Celestin Neisseria gonorrhoeae, ALONDRA Negative Normal Negative [facility] Comment on above: Performed By: #### G TT3P #### [facility] [address] [place] [address] Dr. Jackelyn Celestin VAGINITIS/VAGINOSIS DNA PROB Dean 05-13-2022 Thao species Negative Normal Negative [facility] Comment on above: Performed By: #### 4 [id number] #### [facility] [address] [place] [address] Dr. Jackelyn Celestin Gardnerella vaginalis Negative Normal Negative [facility] Comment on above: Performed By: #### 4 [id number] #### [facility] [address] [place] [address] Dr. Jackelyn Celestin Trichomonas vaginalis Negative Normal Negative [facility] Comment on above: Performed By: #### 4 [id number] #### [facility] [address] [place] [address] Dr. Jackelyn Celestin CBC AUTO DIFFon 05-09-2022 BASO # 0.0 103/ul Normal 0.0-0.1 [facility] Comment on above: Performed By: #### C BC #### [facility] [address] [place] [address] Dr. Jackelyn Celestin Basophils/100 WBC (Bld) 0.3 % Normal 0.2-2.0 [facility] Comment on above: Performed By: #### C BC #### [facility] [address] [place] [address] Dr. Jackelyn Celestin EO # 0.1 103/ul Normal 0.0-0.7 [facility] Comment on above: Performed By: #### C BC #### [facility] [address] [place] [address] Dr. Jackelyn Celestin Eosinophils/100 WBC (Bld) 1.2 % Normal 0.9-7.0 [facility] Comment on above: Performed By: #### C BC #### [facility] [address] [place] [address] Dr. Jackelyn Celestin Erythrocyte distribution width (RBC) [Ratio] 11.9 % Normal 11.0-15.0 [facility] Comment on above: Performed By: #### C BC #### [facility] [address] [place] [address] Dr. Jackelyn Celestin Hematocrit (Bld) [Volume fraction] 33.7 % Critically low 36.0-48.0 [facility] Comment on above: Performed By: #### C BC #### [facility] [address] [place] [address] Dr. Jackelyn Celestin Hemoglobin (Bld) [Mass/Vol] 12.0 g/dL Normal 12.0-16.0 [facility] Comment on above: Performed By: #### C BC #### [facility] [address] [place] [address] Dr. Jackelyn Celestin IG # 0.07 10e3/ul Critically high 0.00-0.03 [facility] Comment on above: Performed By: #### C BC #### [facility] [address] [place] [address] Dr. Jackelyn Celestin IG % 0.6 % Critically high 0.0-0.5 [facility] Comment on above: Performed By: #### C BC #### [facility] [address] [place] [address] Dr. Jackelyn Celestin LYMPH # 1.3 103/ul Normal 1.2-3.8 [facility] Comment on above: Performed By: #### C BC #### [facility] [address] [place] [address] Dr. Jackelyn Celestin Lymphocytes/100 WBC (Bld) 11.5 % Critically low 20.5-60.0 [facility] Comment on above: Performed By: #### C BC #### [facility] [address] [place] [address] Dr. Jackelyn Celestin MANUAL DIFF REQ NO Normal [facility] Comment on above: Performed By: #### C BC #### [facility] [address] [place] [address] Dr. Jackelyn Celestin MCH (RBC) [Entitic mass] 31.0 pg Normal 26.7-34.0 [facility] Comment on above: Performed By: #### C BC #### [facility] [address] [place] [address] Dr. Jackelyn Cleestin MCHC (RBC) [Mass/Vol] 35.6 g/dL Critically high 29.9-35.2 [facility] Comment on above: Performed By: #### C BC #### [facility] [address] [place] [address] Dr. Jackelyn Celestin MCV (RBC) [Entitic vol] 87.1 fL Normal 81.0-99.0 [facility] Comment on above: Performed By: #### C BC #### [facility] [address] [place] [address] Dr. Jackelyn Celestin MONO # 0.5 103/ul Normal 0.3-0.8 [facility] Comment on above: Performed By: #### C BC #### [facility] [address] [place] [address] Dr. Jackelyn Celestin Monocytes/100 WBC (Bld) 4.8 % Normal 1.7-12.0 [facility] Comment on above: Performed By: #### C BC #### [facility] [address] [place] [address] Dr. Jackelyn Celestin NEUT # 8.9 103/ul Critically high 1.4-6.5 [facility] Comment on above: Performed By: #### C BC #### [facility] [address] [place] [address] Dr. Jackelyn Celestin Neutrophils/100 WBC (Bld) 81.6 % Critically high 43.0-75.0 [facility] Comment on above: Performed By: #### C BC #### [facility] [address] [place] [address] Dr. Jackelyn Celestin Platelet mean volume (Bld) [Entitic vol] 11.3 fL Normal 9.5-13.5 [facility] Comment on above: Performed By: #### C BC #### [facility] [address] [place] [address] Dr. Jackelyn Celestin PLT 171 103/ul Normal 150-450 [facility] Comment on above: Performed By: #### C BC #### [facility] [address] [place] [address] Dr. Jackelyn Celestin RBC 3.87 106/ul Critically low 4.20-5.40 [facility] Comment on above: Performed By: #### C BC #### [facility] [address] [place] [address] Dr. Jackelyn Celestin WBC 10.9 103/ul Normal 4.0-11.0 [facility] Comment on above: Performed By: #### C BC #### [facility] [address] [place] [address] Dr. Jackelyn Celestin GLUCOSE - 1HRon 05-09-2022 Glucose [Mass/Vol] 142 mg/dL Critically high 74-106 [facility] Comment on above: Performed By: #### 4 [id number] #### [facility] [address] [place] [address] Dr. Jackelyn Celestin US PREG BIOPHY W [...] biophysical profile score 8.0. Electronically authenticated by: TRISATN HART Date: 2022-05-09 10:35 Normal [facility] US PREG PLACENTAon US PREG PLACENTA EXAMINATION: US PREG PLACENTA HISTORY: Falls ; mild cramping after falling COMPARISON: Ultrasound anatomy 03/17/2022 FINDINGS: PLACENTA: Posterior without previa, subchorionic hematoma, or abruption. CERVIX LENGTH: Not evaluated. HEART RATE: 158 bpm OTHER: None. IMPRESSION: 1. Unremarkable posterior placenta. No suspicious findings. Electronically authenticated by: TRISTAN HART Date: 2022-05-09 10:29 Normal [facility] US PREG ANATOMY SINGLEon US PREG [...] TRISTAN HART Date: 2022-03-17 16:29 Normal [facility] HEP B SURFACE ANTIGEN SCREEN on 02-15-2022 HBsAg Screen Negative Normal Negative [facility] Comment on above: Performed By: #### 4 [id number] #### [facility] [address] [address] [address] Jackelyn Celestin HEPATITIS C VIRUS AB W/ REFL EX QUANTon 02-15-2022 HCV AB <0.1 Normal 0.0-0.9 [facility] Comment on above: Performed By: #### H CVPCRR #### [facility] [address] [place] [address] Dr. Jackelyn Celestin Interpretation: Comment Normal [facility] Comment on above: Result Comment: Nega tive Not infected with HCV, unless recent infection is suspected or other evidence exists to indicate HCV infection. Performed By: #### H CVPCRR #### [facility] [address] [address] [address] Jackelyn Celestin HIV 1 AND 2 WITH REFLEXon HIV Screen 4th Generation wRfx Non-Reactive Normal Non Reactive [facility] Comment on above: Result Comment: HIV Negative HIV-1/HIV-2 antibodies and HIV-1 p24 antigen were NOT detected. There is no laboratory evidence of HIV infection. Performed By: #### H IV12 #### [facility] [address] [place] [address] Dr. Jackelyn Celestin RPR QUANTon 02-15-2022 Rapid Plasma Reagin, Quant Non-Reactive Normal NonRea<1:1 [facility] Comment on above: Result Comment: Plea se Note: This test does not meet current guidelines for screening and diagnosis of syphilis. This test is intended for following treatment response in patients being treated for syphilis infection. To screen for syphilis infection, a reflex cascade that includes both RPR and a treponema-specific assay should be utilized, such as Treponema pallidum (Syphilis) Screening Thatcher (602866) or Rapid Plasma Reagin (RPR) Test With Reflex to Quantitative RPR and Confirmatory Treponema pallidum Antibodies (149467). Performed By: #### R PRQ #### [facility] [address] [place] [address] Dr. Jackelyn Celestin RUBELLA AB IGGon 02-15-2022 Rubella Antibodies, IgG 1.97 index Normal Immune >0.99 [facility] Comment on above: Result Comment: Non- immune <0.90 Equivocal 0.90 - 0.99 Immune >0.99 Performed By: #### R UBIGG #### [facility] [address] [place] [address] Dr. Jackelyn Celestin CBC AUTO DIFFon 02-12-2022 BASO # 0.0 103/ul Normal 0.0-0.1 [facility] Comment on above: Performed By: #### C BC #### [facility] [address] [place] [address] Dr. Jackelyn Celestin Basophils/100 WBC (Bld) 0.4 % Normal 0.2-2.0 [facility] Comment on above: Performed By: #### C BC #### [facility] [address] [place] [address] Dr. Jackelyn Celestin EO # 0.2 103/ul Normal 0.0-0.7 [facility] Comment on above: Performed By: #### C BC #### [facility] [address] [place] [address] Dr. Jackelyn Celestin Eosinophils/100 WBC (Bld) 2.0 % Normal 0.9-7.0 [facility] Comment on above: Performed By: #### C BC #### [facility] [address] [place] [address] Dr. Jackelyn Celestin Erythrocyte distribution width (RBC) [Ratio] 12.8 % Normal 11.0-15.0 [facility] Comment on above: Performed By: #### C BC #### [facility] [address] [place] [address] Dr. Jackelyn Celestin Hematocrit (Bld) [Volume fraction] 40.7 % Normal 36.0-48.0 [facility] Comment on above: Performed By: #### C BC #### [facility] [address] [place] [address] Dr. Jackelyn Celestin Hemoglobin (Bld) [Mass/Vol] 14.4 g/dL Normal 12.0-16.0 [facility] Comment on above: Performed By: #### C BC #### [facility] [address] [place] [address] Dr. Jackelyn Celestin IG # 0.05 10e3/ul Critically high 0.00-0.03 [facility] Comment on above: Performed By: #### C BC #### [facility] [address] [place] [address] Dr. Jackelyn Celestin IG % 0.4 % Normal 0.0-0.5 [facility] Comment on above: Performed By: #### C BC #### [facility] [address] [place] [address] Dr. Jackelyn Celestin LYMPH # 1.7 103/ul Normal 1.2-3.8 [facility] Comment on above: Performed By: #### C BC #### [facility] [address] [place] [address] Dr. Jackelyn Celestin Lymphocytes/100 WBC (Bld) 15.1 % Critically low 20.5-60.0 [facility] Comment on above: Performed By: #### C BC #### [facility] [address] [place] [address] Dr. Jackelyn Celestin MANUAL DIFF REQ NO Normal [facility] Comment on above: Performed By: #### C BC #### [facility] [address] [place] [address] Dr. Jackelyn Celestin MCH (RBC) [Entitic mass] 31.2 pg Normal 26.7-34.0 [facility] Comment on above: Performed By: #### C BC #### [facility] [address] [place] [address] Dr. Jackelyn Celestin MCHC (RBC) [Mass/Vol] 35.4 g/dL Critically high 29.9-35.2 [facility] Comment on above: Performed By: #### C BC #### [facility] [address] [place] [address] Dr. Jackelyn Celestin MCV (RBC) [Entitic vol] 88.1 fL Normal 81.0-99.0 [facility] Comment on above: Performed By: #### C BC #### [facility] [address] [place] [address] Dr. Jackelyn Celestin MONO # 0.4 103/ul Normal 0.3-0.8 [facility] Comment on above: Performed By: #### C BC #### [facility] [address] [place] [address] Dr. Jackelyn Celestin Monocytes/100 WBC (Bld) 3.3 % Normal 1.7-12.0 [facility] Comment on above: Performed By: #### C BC #### [facility] [address] [place] [address] Dr. Jackelyn Celestin NEUT # 8.8 103/ul Critically high 1.4-6.5 [facility] Comment on above: Performed By: #### C BC #### [facility] [address] [place] [address] Dr. Jackelyn Celestin Neutrophils/100 WBC (Bld) 78.8 % Critically high 43.0-75.0 [facility] Comment on above: Performed By: #### C BC #### [facility] [address] [place] [address] Dr. Jackelyn Celestin Platelet mean volume (Bld) [Entitic vol] 11.6 fL Normal 9.5-13.5 [facility] Comment on above: Performed By: #### C BC #### [facility] [address] [place] [address] Dr. Jackelyn Celestin PLT 203 103/ul Normal 150-450 [facility] Comment on above: Performed By: #### C BC #### [facility] [address] [place] [address] Dr. Jackelyn Celestin RBC 4.62 106/ul Normal 4.20-5.40 [facility] Comment on above: Performed By: #### C BC #### [facility] [address] [place] [address] Dr. Jackelyn Celestin WBC 11.2 103/ul Critically high 4.0-11.0 [facility] Comment on above: Performed By: #### C BC #### [facility] [address] [place] [address] Dr. Jackelyn Celestin CULTURE URINEon 02-12-2022 CULTURE URINE Culture Observations : NO GROWTH. Normal [facility] Comment on above: Performed By: #### U RCX #### [facility] [address] [place] [address] Dr. Jackelyn Celestin GLYCOHEMOGLOBIN A1Con 2021 ADA RECOMMENDATION SEE BELOW Normal [facility] Comment on above: Result Comment: ADA RECOMMENDED LIMIT 4.0 - 6.0 ADA THERAPEUTIC TARGET < 7.0 ACTION SUGGESTED > 7.0 Performed By: #### 4 [id number] #### [facility] [address] [place] [address] Dr. Jackelyn Celestin Glucose [Mass/Vol] 94 mg/dL Normal [facility] Comment on above: Performed By: #### 4 [id number] #### [facility] [address] [place] [address] Dr. Jackelyn Celestin HbA1c (Bld) [Mass fraction] 4.9 % Normal 4.5-6.2 [facility] Comment on above: Performed By: #### 4 [id number] #### [facility] [address] [place] [address] Dr. Jackelyn Celestin TYPE AND SCREENon 02-12-2022 TYPE AND SCREEN Negative Normal [facility] Comment on above: Performed By: #### T NS #### [facility] [address] [place] [address] Dr. Jackelyn Celestin US PREG TVon 01-21-2022 [...] by: DONALD AGUILAR Date: 2022-01-21 16:41 Normal [facility] Coding Summary.on 12-12-2019 Coding Summary. CODING DATE: 020 FINAL [facility] STATUS: Home (Routine DC) PAYOR: Self [...] CphT Date Saved: 12/12/2019 10:59 am Normal [facility] Family Medicine Office/Clini c Noteon [...] day(s), # 20 tab(s), Refills(s) 0, Pharmacy: [facility] 1987, 159, cm, 11/21/19 19:13:00 EDT, Height/Length Dosing, 96, kg, 11/21/19 19:13:00 EDT, Weight Dosing Follow-up No qualifying data available Patient Education Body Mass Index, BMI DASH Diet MyPlate from [employer] Obesity Otitis Media, Adult Problem List/Past Medical [...] cancer: Grandparent. Hypertension: Grandparent. Stroke: Grandparent. Normal [facility] Comment on above: Result Comment: [...] Document Reviewed: 01/04/2006 ExitCare? Patient Information ?2014 [employer]. DASH Diet The DASH diet stands for [...] chicken breast, turkey breast. All fish. [place], bake, or broil your meat. Nothing should [...] Document Reviewed: 03/15/2012 ExitCare? Patient Information ?2013 [employer]. MyN[employer], [employer] The amount you need to eat from [...] Document Reviewed: 06/16/2008 ExitCare? Patient Information ?2013 [email or web address] [facility]. Family Medicine Obesity Obesity is defined as [...] such as an underactive thyroid (hypothyroidism ), Byron's syndrome, and polycystic ovarian syndrome. ? Certain [...] Document Reviewed: 05/02/2012 ExitCare? Patient Information ?2013 [employer]. Otitis Media, Adult A middle ear infection [...] the first few days. ? Only take hche-twp-skdbdsz or prescription medicines for pain, discomfort, or [...] Document Reviewed: 10/31/2008 ExitCare? Patient Information ?2013 [employer]. Normal [facility] SARS-CoV-2, NAAon 11-20-2019 SARS CORONAVIRUS 2 RNA:PRTHR:PT:RESPIRATO RY:ORD:PROBE.AMP.TAR Not Detected Not Detected [facility] Comment on above: Result Comment: This test was developed and its performance characteristics determined by [employer]. This test has not been FDA cleared [...] detected) result in this assay. Performed at: [facility] [email or web address] [facility] [place] [id number] MD Malaika Velez Performed By: #### S ARS-CoV-2, ALONDRA #### [facility] [address] [place] [address] [facility] Medicine Video Visit - Telehealthon 11-16-2019 [...] interactive video communications from my office using [employer] due to the restrictions of the COVID-19 pandemic. No physical exam was conducted other than those areas of the body visible to telecommunications with the patient located at [address] [phone], with no one else in attendance. If [...] cancer: Grandparent. Hypertension: Grandparent. Stroke: Grandparent. Normal [facility] Comment on above: Result Comment: Elec tronically Signed By: Abbey ESTRADA CNP\.ynes\Date and Time Signed: 11/16/19 14:27 EDT URINE CULTUREon 07-10-2017 Urine culture, bacteria SPECIMEN DESCRIPTION URINE CLEAN CATCHUA DIPSTICK NITRITE NEGATIVE * Result Note: LEUKOCYTE NEGATIVE *CULTURE ESCHERICHIA COLI * Result Note: 50,000 C/C/ML * * Result Note: Testing performed at [facility], [place], [place] [address] *REPORT STATUS 07/10/2017 * Result Note: FINAL * O RGANISM ESCHERICHIA COLI * Result Note: ESCHERICHIA COLI *METHOD MICAMPICILLIN <=2 SUSCEPTIBLEAMPICILLIN/SULBA CTAM <=2 SUSCEPTIBLECEFTRIAXONE <=1 SUSCEPTIBLECEFAZOLIN <=4 SUSCEPTIBLEIMIPENEM <=0.25 SUSCEPTIBLEGENTAMICIN <=1 SUSCEPTIBLETRIMETH-SULFA <=20 SUSCEPTIBLEAMOXICILLIN/CLAV ULANIC A <=2 SUSCEPTIBLENITROFURANTOIN 32 SUSCEPTIBLEPIPERACILLIN/SADA OBACTAM <=4 SUSCEPTIBLELEVOFLOXACIN <=0.12 SUSCEPTIBLEESBL NEGATIVECEFTAZIDIME <=1 SUSCEPTIBLE Normal [facility] Comment on above: Performed By: #### A URNC ####Testing performed at [address] [id number] performed at [address] [address] BHCG,QUANTITATIVEon 07-08-19 18 BHCG,QUANTITATIVE 133.56 MIU/ML Normal [facility] Comment on above: Result Comment: [facility] INTERPRETIVE RANGES: NON FEMALE 0-6 [...] #### A CBC, BHCG2 ####Testing performed at [address] [address] CBCon 07-07-2017 ABSOLUTE BAS 0.1 X10 Normal [facility] Comment on above: Performed By: #### A CBC, BHCG2 ####Testing performed at [address] [place] [address] ABSOLUTE EOS 0.20 X10 Normal [facility] Comment on above: Performed By: #### A CBC, BHCG2 ####Testing performed at [address] [place] [address] Basophils/100 WBC Auto (Bld) 0.6 % Normal 0.0-2.0 [facility] Comment on above: Performed By: #### A CBC, BHCG2 ####Testing performed at [address] [place] [address] DTYPE AUTO DIFF Normal [facility] Comment on above: Performed By: #### A CBC, BHCG2 ####Testing performed at [address] [place] [address] Eosinophils/100 leukocytes 2.0 % Normal 0.0-11.0 [facility] Comment on above: Performed By: #### A CBC, BHCG2 ####Testing performed at [address] [place] [address] Lymphocytes 2.00 X10 Normal [facility] Comment on above: Performed By: #### A CBC, CG2 ####Testing performed at [address] [place] [address] Lymphocytes/100 leukocytes 23.0 % Normal 20.0-55.0 [facility] Comment on above: Performed By: #### A CBC, BHCG2 ####Testing performed at [address] [place] [address] Monocytes 0.6 X10 Normal [facility] Comment on above: Performed By: #### A CBC, BHCG2 ####Testing performed at [address] [address] Monocytes/100 leukocytes 7.1 % Normal 0.0-10.0 [facility] [place] above: Performed By: #### A CBC, BHCG2 ####Testing performed at [address] [place] [address] Neutrophils 5.9 x10 Normal 1.0-7.0 [facility] Comment on above: Performed By: #### A CBC, BHCG2 ####Testing performed at [address] [address] Neutrophils/100 leukocytes 67.3 % Normal 37.0-75.0 [facility] Comment on above: Performed By: #### A CBC, BHCG2 ####Testing performed at [address] [address] Erythrocyte distribution width Auto Ratio (RBC) 12.1 % Normal 11.5-14.5 [facility] Comment on above: Performed By: #### A CBC, BHCG2 ####Testing performed at [address] [address] Erythrocytes (RBC) 4.72 /cmm Normal 4.0-5.4 [facility] Comment on above: Performed By: #### A CBC BHCG2 ####Testing performed at [address] [address] Hematocrit (HCT) 43.2 % Normal 36.0-48.0 [facility] Comment on above: Performed By: #### A CBC, BHCG2 ####Testing performed at [address] [address] Hemoglobin mass conc (Bld) 15.1 g/dL Normal 12.0-16.0 [facility] Comment on above: Performed By: #### A CBC, BHCG2 ####Testing performed at [address] [address] MCH 32.0 pg Normal 26.0-35.0 [facility] Comment on above: Performed By: #### A CBC, BHCG2 ####Testing performed at [address] [address] MCHC mass conc (RBC) 35.0 g/dL Normal 27.0-37.0 [facility] Comment on above: Performed By: #### A CBC, BHCG2 ####Testing performed at [address] [address] MCV 91.5 fL Normal 80.0-100.0 [facility] Comment on above: Performed By: #### A CBC, BHCG2 ####Testing performed at [address] [place] [address] Platelet mean volume (PMV) 9.2 fL Normal 7.4-11.0 [facility] Comment on above: Performed By: #### A CBCALEXANDRACG2 ####Testing performed at [address] [address] Platelets 235 /cmm Normal 130.0-400. 0 [facility] Comment on above: Performed By: #### A CBCALEXANDRACG2 ####Testing performed at [address] [address] WBC (Leukocytes) 8.8 /cmm Normal 3.6-11.0 [facility] Comment on above: Performed By: #### A CBCDAVIDG2 ####Testing performed at [address] [address] ED NOTEon 07-07-2017 [facility] NOTES Normal [facility] ED PROVIDERon 07-07-2017 [facility] NOTES Normal [facility] URINE MACROSCOPICon 07-08-19 18 Bilirubin Ql (U) Negative Normal NEGATIVE [facility] Comment on above: Performed By: #### U MAC, UMIC ####Testing performed at [address] [address] URINE HEMOGLOBIN LARGE Abnormal NEGATIVE [facility] Comment on above: Performed By: #### U MAC, UMIC ####Testing performed at [address] [address] URINE KETONE Negative Normal NEGATIVE [facility] Comment on above: Performed By: #### U MAC, UMIC ####Testing performed at [address] [address] URINE LEUKOTEST Negative Normal NEGATIVE [facility] Comment on above: Performed By: #### U MAC, UMIC ####Testing performed at [address] [address] URINE NITRATES Negative Normal NEGATIVE [facility] Comment on above: Performed By: #### U MAC, UMIC ####Testing performed at [address] [address] URINE SPEC GRAVITY 1.025 Normal 1.010-1.0 2 5 [facility] Comment on above: Performed By: #### U MAC, UMIC ####Testing performed at [address] [place] [address] URINE TOTAL PROTEIN Negative Normal NEGATIVE [facility] Comment on above: Performed By: #### U MAC, UMIC ####Testing performed at [address] [place] [address] Urine, clarity CLEAR Normal CLEAR [facility] Comment on above: Performed By: #### U MAC, UMIC ####Testing performed at [address] [place] [address] Urine, color YELLOW Normal YELLOW [facility] Comment on above: Performed By: #### U MAC, UMIC ####Testing performed at [address] [place] [address] Urine, glucose presence Negative Normal NEGATIVE [facility] Comment on above: Performed By: #### U MAC, UMIC ####Testing performed at [address] [place] [address] Urine, pH 7.0 [pH] Normal 5.0-7.0 [facility] Comment on above: Performed By: #### U MAC, UMIC ####Testing performed at [address] [place] [address] Urine, urobilinogen 1.0 mg/dl Normal 0.2-1.0 [facility] Comment on above: Performed By: #### U MAC, UMIC ####Testing performed at [address] [address] URINE MICROSCOPICon 03-30-20 18 CRYSTAL OCCASIONAL Abnormal NONE [facility] Comment on above: Result Comment: CHRIS PHOUS PHOSPHATES Performed By: #### U MAC, UMIC ####Testing performed at [address] [address] URINE COMMENT REFLEX CULTURE PER ESTABLISHED CRITERIA. Normal [facility] Comment on above: Performed By: #### U MAC, UMIC ####Testing performed at [address] [address] URINE WBC'S 1 TO 5 Normal NEGATIVE [facility] Comment on above: Performed By: #### U MAC, UMIC ####Testing performed at [address] [address] Urine, bacteria in sediment 1+ Abnormal NEGATIVE [facility] Comment on above: Performed By: #### U MAC, UMIC ####Testing performed at [address] [place] [address] Urine, casts in sediment NONE Normal NONE [facility] Comment on above: Performed By: #### U MAC, UMIC ####Testing performed at [address] [place] [address] Urine, epithelial cells in sediment 1 TO 5 Normal [facility] Comment on above: Performed By: #### U MAC, UMIC ####Testing performed at [address] [place] [address] Urine, erythrocytes 1 TO 5 Normal NEGATIVE [facility] Comment on above: Performed By: #### U MAC, UMIC ####Testing performed at [address] [place] [address] Urine, mucus presence in sediment Negative Normal NEGATIVE [facility] Comment on above: Performed By: #### U MAC, UMIC ####Testing performed at [address] [place] [address] BhCG Quanton 07-05-2017 HCG.beta subunit Qn 238.0 mIU/m Normal [facility] Comment on above: Result Comment: FEMA LE (NON-) & MALE <3 BORDERLINE 3 - 5 SUGGEST REPEAT TESTING FEMALE () 1 D - 1 WK 5 - 50 1 - 2 WK 50 - 500 2 - 3 WK 100 - 5000 3 - 4 WK 500 - 76687 4 - 5 WK 1000 - 07746 5 - 6 WK [address] - 689142 6 - 8 W[place] [address] - 979810 2 - 3 [place] [address] - 413567 Performed By: #### 2 [id number] ####JIMMIE VybKhyz2782 [place] [address] Auto Diffon 07-04-2017 Basophils Auto #/vol (Bld) 0.1 E3/mcL Normal 0.0-0.2 [facility] Comment on above: Order Comment: Order Added by Discern Expert. Performed By: #### 2 [id number] ####JIMMIE ZwlThuc5469 [place] [address] Basophils/100 WBC Auto (Bld) 0.6 % Normal 0.0-2.0 [facility] Comment on above: Order Comment: Order Added by Discern Expert. Performed By: #### 2 779699 ####JIMMIE DanBbcUhbo8134 [place] [address] Eos Absolute 0.3 E3/mcL Normal 0.0-0.7 [facility] Comment on above: Order Comment: Order Added by Discern Expert. Performed By: #### 2 859950 ####JIMMIE DanGpyLvmh1152 [place] [address] Eosinophils/100 leukocytes 2.5 % Normal 0.0-11.0 [facility] Comment on above: Order Comment: Order Added by Discern Expert. Performed By: #### 2 415636 ####JIMMIE DanPhaCdnx8508 [place] [address] Lymphocytes 2.3 E3/mcL Normal 1.2-3.4 [facility] Comment on above: Order Comment: Order Added by Discern Expert. Performed By: #### 2 008155 ####JIMMIE DanTbgCptc8034 [place] [address] Lymphocytes/100 leukocytes 22.2 % Normal 20.0-55.0 [facility] Comment on above: Order Comment: Order Added by Discern Expert. Performed By: #### 2 496540 ####JIMMIE DanRbfMiiy4142 [place] [address] [place] Absolute 0.8 E3/mcL High 0.0-0.7 [facility] Comment on above: Order Comment: Order Added by Discern Expert. Performed By: #### 2 072289 ####JIMMIE DanJvsTwkh5792 [place] [address] Monocytes/100 leukocytes 7.6 % Normal 0.0-10.0 [facility] Comment on above: Order Comment: Order Added by Discern Expert. Performed By: #### 2 600807 ####JIMMIE DanTmsUtgl6736 [place] [address] Neutro Absolute 6.9 E3/mcL High 1.4-6.5 [facility] Comment on above: Order Comment: Order Added by Discern Expert. Performed By: #### 2 973175 ####JIMMIE DanUgjQjta1419 [place] [address] Neutro Auto 67.1 % Normal 37.0-75.0 [facility] Comment on above: Order Comment: Order Added by Discern Expert. Performed By: #### 2 297666 ####JIMMIE Ozunao1025 [place] [address] BMPon 07-04-2017 BUN/Creatinine Ratio 21.7 ratio Normal 5.4-30.0 [facility] Comment on above: Performed By: #### 2 956316 ####JIMMIE JupSpug5111 [place] [address] Creatinine 0.6 mg/dL Normal 0.6-1.3 [facility] Comment on above: Performed By: #### 2 176119 ####JIMMIE RcmRwhd7431 [place] [address] Urea nitrogen 13 mg/dL Normal 7-18 [facility] Comment on above: Performed By: #### 2 872119 ####JIMMIE WwiXqga9915 [place] [address] Calcium 8.4 mg/dL Normal 8.4-10.2 [facility] Comment on above: Performed By: #### 2 423105 ####JIMMIE ZnlNepm2164 [place] [address] Chloride 100 mmol/L Normal 98-107 [facility] Comment on above: Performed By: #### 2 388042 ####JIMMIE FwfFgzv7772 [place] [address] CO2 27.7 mmol/L Normal 24.0-30.0 [facility] Comment on above: Performed By: #### 2 983531 ####JIMMIEJonathan DanPraSfts3235 [place] [address] Glucose mass conc 98 mg/dL Normal 70-99 [facility] Comment on above: Performed By: #### 2 145542 ####JIMMIEJonathan DanPmaQbci4183 [place] [address] Potassium molar conc 3.4 mmol/L Low 3.5-5.1 [facility] Comment on above: Performed By: #### 2 477800 ####JIMMIEJonathan GreshamZhhDydl4479 [place] [address] Sodium 133 mmol/L Low 136-145 [facility] Comment on above: Performed By: #### 2 737828 ####JIMMIE YvcEyak7133 [place] [address] BhCG Quanton 07-04-2017 HCG.beta subunit Qn 190.8 mIU/m Normal [facility] Comment on above: Result Comment: FEMA LE (NON-) & MALE <3 BORDERLINE 3 - 5 SUGGEST REPEAT TESTING FEMALE () 1 D - 1 WK 5 - 50 1 - 2 WK 50 - 500 2 - 3 WK 100 - 5000 3 - 4 WK 500 - 02362 4 - 5 WK 1000 - [address] 5 - 6 WK [address] - 822985 6 - 8 WK [address] - 536949 2 - 3 [place] [address] - [address]794 Performed By: #### 2 925009 ####JIMMIEJonathan DanPudKefl3407 [place] [address] CBC w/ Auto Diffon 8 Erythrocyte distribution width Auto Ratio (RBC) 11.6 % Normal 11.5-14.5 [facility] Comment on above: Performed By: #### 2 488904 ####JIMMIEJonathan DanMniDiro2594 [place] [address] Erythrocytes (RBC) 4.43 E6/mcL Normal 3.90-5.40 [facility] Comment on above: Performed By: #### 2 881031 ####JIMMIEJonathan DanSlkIxmw0364 [place] [address] Hematocrit (HCT) 40.1 % Normal 36.0-48.0 [facility] Comment on above: Performed By: #### 2 139063 ####JIMMIE DanVqkCkfg5666 [place] [address] Hemoglobin mass conc (Bld) 14.1 g/dL Normal 12.0-16.0 [facility] Comment on above: Performed By: #### 2 037298 ####JIMMIE DanGmaTxbq1340 [place] [address] MCH 31.7 pg High 27.0-31.0 [facility] Comment on above: Performed By: #### 2 231023 ####JIMMIE Ozunao1025 [place] [address] MCHC mass conc (RBC) 35.1 g/dL Normal 33.0-37.0 [facility] Comment on above: Performed By: #### 2 528102 ####JIMMIE Ozunao1025 [place] [address] MCV 90.4 fL Normal 78.0-100.0 [facility] Comment on above: Performed By: #### 2 228057 ####JIMMIE Ozunao1025 [place] [address] Platelet mean volume (PMV) 8.4 fL Normal 7.4-11.0 [facility] Comment on above: Performed By: #### 2 236314 ####JIMMIE Ozunao1025 [place] [address] Platelets 232 E3/mcL Normal 130-400 [facility] Comment on above: Performed By: #### 2 655403 ####JIMMIE Ozunao1025 [place] [address] WBC (Leukocytes) 10.3 E3/mcL Normal 3.6-11.0 [facility] Comment on above: Performed By: #### 2 553889 ####JIMMIE Ozunao1025 [place] [address] Hep Func Panelon 07-04-2017 Alanine aminotransferase (ALT) 15 Int._Unit/L Normal 10-40 [facility] Comment on above: Performed By: #### 2 659310 ####JIMMIE Gresham1025 [place] [address] Albumin 3.8 g/dL Normal 3.2-5.0 [facility] Comment on above: Performed By: #### 2 309894 ####JIMMIE DanFttNssx8731 [place] [address] Albumin/Globulin Ratio 1.4 {ratio} Normal 1.1-1.9 [facility] Comment on above: Performed By: #### 2 309152 ####JIMMIE DanOkhPrkx7182 [place] [address] Alk Phos 36 Int._Unit/L Low 42-121 [facility] Comment on above: Performed By: #### 2 561797 ####JIMMIE WpzDcpt4293 [place] [address] Aspartate aminotransferase (AST) 18 Int._Unit/L Normal 10-42 [facility] Comment on above: Performed By: #### 2 477454 ####JIMMIE Gresham1025 [place] [address] Bili Direct <.10 Normal .00-.20 [facility] Comment on above: Performed By: #### 2 379308 ####JIMMIE MxdKseu6888 [place] [address] Bili Indirect >0.7 Normal [facility] Comment on above: Result Comment: No e stablished ranges available for the Indirect Biliruben. Performed By: #### 2 595916 ####JIMMIE UduTpeo1895 [place] [address] Bili Total 0.8 mg/dL Normal 0.2-1.0 [facility] Comment on above: Performed By: #### 2 209584 ####JIMMIE VfxJxio1050 [place] [address] Globulin 2.8 g/dL Normal 2.0-4.0 [facility] Comment on above: Performed By: #### 2 397632 ####JIMMIE FgyFpcv7301 [place] [address] Protein 6.6 g/dL Normal 6.4-8.3 [facility] Comment on above: Performed By: #### 2 451808 ####JIMMIE TxgUmcl4557 [place] [address] Lipase Levelon 07-04-2017 Lipase Lvl 19 U/L Normal 8-57 [facility] Comment on above: Performed By: #### 2 384482 ####JIMMIE JicRomb6724 [place] [address] U BhCG Qlton 07-04-2017 HCG.beta subunit Qn Positive Normal Neg [facility] Comment on above: Performed By: #### 2 784454 ####JIMMIE Urinalysis Manual Pwjueuurnh0975 [place] [address] UA Completeon 07-04-2017 UA Blood 3+ Normal Negative [facility] Comment on above: Performed By: #### 8 [id number] ####JIMMIE Urinalysis Automated Rywymythtz6266 [place] [address] UA Bacteria Trace Abnormal None [facility] Comment on above: Performed By: #### 8 [id number] ####JIMMIE Urinalysis Automated Pkergbbmaw9424 [place] [address] UA Clarity SltCloudy Abnormal Clear [facility] Comment on above: Performed By: #### 8 [id number] ####JIMMIE Urinalysis Automated Ndxbtxhsee2433 [place] 1147105 UA Leuk Est Trace Normal Negative [facility] Comment on above: Performed By: #### 8 1552556 ####JIMMIE Urinalysis Automated Dtib[address] [place] [address] UA Mucous Occasional Abnormal Trace [facility] Comment on above: Performed By: #### 8 5047613 ####JIMMIE Urinalysis Automated Nchiohcwbc6884 [place] 1147105 UA Nitrite Negative Normal Negative [facility] Comment on above: Performed By: #### 8 [id number] ####JIMMIE Urinalysis Automated [address] [place] [address] UA pH 5.0 Normal 4.6-8.0 [facility] Comment on above: Performed By: #### 8 [id number] ####JIMMIE Urinalysis Automated [address] [place] [address] UA Protein Negative Normal Negative [facility] Comment on above: Performed By: #### 8 4481417 ####JIMMIE Urinalysis Automated Gxyyfkkjoy2869 [place] [address] UA Spec Grav 1.027 Normal 1.003-1.03 0 [facility] Comment on above: Performed By: #### 8 [id number] ####JIMMIE Urinalysis Automated [address] [place] [address] UA Squam Epithelial 0-5 Normal 0-5 [facility] Comment on above: Performed By: #### 8 [id number] ####JIMMIE Urinalysis Automated Msbvtzajav2326 [place] [address] UA Urobilinogen Negative Normal [facility] Comment on above: Performed By: #### 8 [id number] ####JIMMIE Urinalysis Automated Mewgdmfbnj2658 [place] [address] UA WBC 10-20 Abnormal 0-5 [facility] Comment on above: Performed By: #### 8 [id number] ####JIMMIE Urinalysis Automated Uqwbyfcfzv1862 [place] [address] Urine, color Yellow Normal Yellow [facility] Comment on above: Performed By: #### 8 [id number] ####JIMMIE Urinalysis Automated Bllijtcoqo3604 [place] [address] Urine, erythrocytes 5-10 Abnormal 0-3 [facility] Comment on above: Performed By: #### 8 [id number] ####JIMMIE Urinalysis Automated Dvjxsldvxi1294 [place] [address] Urine, glucose Negative Normal Negative [facility] Comment on above: Performed By: #### 8 [id number] ####JIMMIE Urinalysis Automated Hucrsvhauy0659 [place] [address] Urine, ketones presence Negative Normal Negative [facility] Comment on above: Performed By: #### 8 3575100 ####JIMMIE Urinalysis Automated Jvcowdvqzs2408 [place] [address] Urine, urobilinogen Negative Normal Negative [facility] Comment on above: Performed By: #### 8 [id number] ####JIMMIE Urinalysis Automated Ttfijcbhpc3773 [place] [address] eGFRon 07-04-2017 eGFR (non-black) mL/min/{1.73_m2} Normal [facility] Comment on above: Order Comment: Order added by Discern Expert. Performed By: #### 1 [id number] ####JIMMIE ShhMuhv1377 [place] [address] Vital Signs Date Time Vital Sign Value Performing Clinician Cong reynolds 04-20-2023 14:07-0500 Diastolic blood pressure 75 mm[Hg] [facility] 04-20-2023 14:07-0500 Heart rate 93 /min [facility] 10 [facility] 04-20-2023 14:07-0500 Respiratory rate 18 /min [facility] 10 [facility] 04-20-2023 14:07-0500 SaO2% (BldA) [Mass fraction] 99 % [facility] [address] [place] [address] 04-20-2023 14:07-0500 Systolic blood pressure 127 mm[Hg] [facility] [address] [place] [address] 04-20-2023 14:06-0500 Body height 160 cm [facility] [address] [place] [address] 04-20-2023 14:06-0500 Body mass index (BMI) [Ratio] 37.22 kg/m2 [facility] [address] [place] [address] 04-20-2023 14:06-0500 Body temperature 97.7 [degF] [facility] [address] [place] [address] 04-20-2023 14:06-0500 Body weight 95.3 kg [facility] [address] [place] [address] 03-10-2023 23:05-0500 Diastolic blood pressure 80 mm[Hg] Supriya Aichholz Work Phone: [facility] 03-10-2023 23:05-0500 Heart rate 100 /min Supriya Aichholz Work Phone: [facility] 03-10-2023 23:05-0500 Respiratory rate 20 /min Supriya Aichholz Work Phone: [facility] 03-10-2023 23:05-0500 SaO2% (BldA) [Mass fraction] 98 % Supriya Aichholz Work Phone: [facility] 03-10-2023 23:05-0500 Systolic blood pressure 137 mm[Hg] Supriya Aichholz Work Phone: [facility] 03-10-2023 17:38-0500 Body temperature 97.9 [degF] Supriya Aichholz Work Phone: [facility] 03-10-2023 17:32-0500 Body height 160.02 cm Supriya Aichholz Work Phone: [facility] 03-10-2023 17:32-0500 Body weight 95 kg Supriya Aichholz Work Phone: [facility] Encounters Encounter Date Encounter Type [...] Not Available Start: 06-05-2023 End: 06-05-2023 ambulatory XNI MORTEZA Not Available Start: 05-22-2023 End: 05-22-[address] [facility] Start: 05-22-2023 End: 05-22-2023 Postop follow up visit related to original px Gerson Malik MD Work Phone: [facility] Comment on [...] Evaluation and management of inpatient SUKI [facility] Start: 05-04-2023 End: 05-04-2023 Evaluation and management of inpatient PA Jonathan [facility] Start: 04-20-2023 End: 04-20-[address] [facility] Start: 04-20-2023 End: 04-20-2023 Patient encounter procedure [facility] Provider 10 Mario Blum [facility] Start: 03-31-2023 End: 03-31-2023 ambulatory XIN MORTEZA Not Available Start: 03-30-2023 End: 03-30-[address] [facility] Start: 03-14-2023 End: 03-14-2023 ambulatory XIN MORTEZA Not Available Start: 03-10-2023 End: 03-11-2023 Emergency department patient visit Jacky Alarcon Facility:[facility] Start: 03-10-2023 End: 03-10-2023 Emergency department patient visit Supriya Emmanuelreillyaric Work Phone: [facility] Work Phone: Start: 03-07-2023 [...] End: 07-07-2017 Emergency department patient visit [facility] Start: 07-05-2017 End: 07-06-2017 Ambulatory Dickson Arleth Pompeii Facility:[facility] Start: 07-04-2017 End: 07-04-2017 Emergency department patient visit Dickson W Pompeii Facility:[facility] Procedures Date Procedure Procedure Detail Performing Clinician [...] [facility] [address] [place] [id number] Xin Pro DO [address] [place] [address] [facility] Start: 05-04-2023 End: 05-04-2023 Admission to same day surgery center 05/04/2023 7:30 AM EST - 05/04/2023 9:30 AM EST Surgery [address] [place] [id number] Gerson Malik MD [address] [place] [address] DAVINCI CHOLECYSTECTOMY [facility] Comment on above: DAVINCI CHOLECYSTECT ANDREA Start: 05-04-2023 End: 05-04-2023 DAVINCI CHOLECYSTECTOMY DAVINCI CHOLECYSTECTOMY CHOLELITHIASIS 05/04/2023 7:[address] [facility] Start: 05-04-2023 End: 05-04-2023 DAVINCI CHOLECYSTECTOMY CHOLANGIOGRAM DAVINCI CHOLECYSTECTOMY CHOLANGIOGRAM CHOLELITHIASIS 05/04/2023 7:[address] [facility] Start: 05-04-2023 Subsequent hospital visit by physician 05/04/2023 7:30 AM EST Hospital Encounter [address] [place] [id number] Gerson Malik MD [address] [place] [address] [facility] Start: 03-10-2023 US Gallbladder [facility] Start: 03-10-2023 US scan of gallbladder US gall bladd er [facility] Start: 03-10-2023 Bacteria identified in Urine by Culture [facility] Start: 12-09-2022 Influenza vaccination Influenza Vacc ine [facility] Start: 2019 Screening for malign ant neoplasm of cervix Pap Smear [facility] Start: 2016 Adult BMI Follow Up Plan Adult BMI F ollow Up Plan [facility] Start: 2010 Depression Screening Depression Scre ening [facility] Patient Education - e Second Month Nausea and Vomiting, Adult ED Gallstones ED [facility] Work Phone: Patient referral [facility] Work Phone: Payers Date Payer Category Payer Unknown [id number] 2022 Private Health Insurance [id number] 2022 Unknown [id number] 2017 Unknown 1998 Unknown [id number] 2.16.84 [id number] 1998 Unknown [id number] 2.16.84 [id number] 1998 Unknown [id number] 2.16.84 [id number] 1998 Unknown [id number] 2.16.84 [id number] 1998 Unknown [id number] 2.16.84 [id number] 1998 Unknown [id number] 2.16.84 [id number] 1998 Unknown [id number] 2.16.84 [id number] 1998 Unknown [id number] 2.16.84 [id number] 1998 Unknown [id number] 2.16.84 [id number] 1998 Unknown [id number] 2.16.84 [id number] 1998 Unknown [id number] 2.16.84 0.1.683602.3.579.2.593 1998 Unknown [id number] 2.16.84 0.1.155960.3.579.2.593 1998 Unknown [id number] 2.16.84 0.1.710090.3.579.2.593 1998 Unknown [id number] 2.16.8 40.1.060849.3.579.2.1286 1998 Unknown [id number] 2.16.8 40.1.972326.3.579.2.1286 1998 Unknown [id number] 2.16.8 40.1.267043.3.579.2.1286 1998 Unknown [id number] 2.16.8 40.1.533093.3.579.2.1286 1998 Unknown [id number] 2.16.84 0.1.244495.3.579.2.1286 1998 Unknown [id number] 2.16.84 0.1.901612.3.579.2.1286 1998 Unknown [id number] 2.16.84 0.1.628422.3.579.2.1259 1998 Unknown [id number] 2.16.84 0.1.375336.3.579.2.9 1998 Unknown [id number] 2.16.84 0.1.152436.3.579.2.1259 1998 Unknown [id number] 2.16.84 0.1.926390.3.579.2.1259 1998 Unknown [id number] 2.16.84 0.1.317842.3.579.2.1259 1998 Unknown [id number] 2.16.84 0.1.194144.3.579.2.1259 1998 Unknown [id number] 2.16.84 0.1.728754.3.579.2.1259 1998 Unknown [id number] 2.16.84 0.1.158236.3.579.2.1259 1998 Unknown [id number] 2.16.840 .1.674404.3.579.2.1259 1998 Unknown [id number] 2.16.840 .1.913410.3.579.2.1259 1998 Unknown [id number] 2.16.840 .1.605287.3.579.2.1259 1959 Private Health Insurance [id number] 1959 Self-pay 1959 Unknown [id number] 1959 Unknown [id number] Unknown [id number] 2.16.8 40.1.125797.3.579.2.531 Social History Date Type Detail Facility Start: 03-10-2023 End: 03-30-2023 Tobacco smoking status NHIS Never smoked tobacco (finding) [facility] Start: 2000 Sex Assigned At Female F [facility] Start: 03-30-2023 End: 05-16-2023 Tobacco use and exposure Smokeless tobacco non-user [facility] Start: 04-20-2023 End: 05-04-2023 Alcohol intake Ex-drinker (finding) [facility] Start: 05-21-2020 End: 04-20-2023 [address] of [address] [facility] Start: 05-21-2020 End: 04-20-[address] [facility] Housing Instability Unknown [facility] Start: 2000 Sex Assigned At Not on file P [facility] Start: 05-16-2023 Alcohol intake Lifetime non-d yrn (finding) [facility] Start: 02-10-[address] [facility] History of Present illness Narrative [...] up: As needed documented in this encounter [facility] [employer] Instructions 04-20-2023 Patient Instructions Note Date & Type Note Facility 04-20-2023 Instructions Terri Estrada RN - 04/20/2023 1:45 PM EST Your surgery/procedure is scheduled at [facility] on 05/04/23 at 0730 Arrival Time [address] [facility] Address: [address] [place] [address] Park in [address] Parking lot located on [facility]. Report to the Entrance B. Check in at the information desk the surgery. The waiting room located on the second floor. If you have any questions prior to surgery, please call Pre-Admission Clinic at [phone] between 7:30 am and 4:30 pm Monday through Monday. If you have questions the morning of surgery, please call the Pre-op Department at [phone]. PLEASE FOLLOW THESE INSTRUCTIONS OR YOUR SURGERY [...] would like to schedule therapy at a [facility] facility, please call [phone] ([phone]). Do not use lotions, creams, powders, perfume, make up, cologne or after-shaves day of surgery. Remove ALL jewelry including wedding rings, body piercings,hair extensions that contain metal, nail algerian, make-up, and contact lens. You may brush [...] RIGHTS AND RESPONSIBILITIES As a patient at [facility], you have the right to: Receive medical care and be informed of who is taking care of you Be treated with dignity and respect Have a family member/outside sales representative of choice and your physician notified of your admission Receive information and actively participate in decisions about your care and treatment Refuse care, treatment and services Decide who may provide your support and speak for you Access moravian and spiritual services Participate in ethical issues [...] of hospital charges and payment methods Patient/patient outside sales representative responsibilities are to: Provide information [...] in clean clothes. documented in this encounter [facility] Note 04-20-2023 Perioperative Nursing Note [...] Nurse Note Appt reminder call done-message left [facility] Evaluation note Note Date & Type Note Facility Evaluation note No assessment information availa [facility] Work Phone: Evaluation note Note Date & Type Note Facility Evaluation note Diagnosis Status post laparoscopic cholecystectomy- Primary Other postprocedural status documented in this encounter [facility] Hospital Discharge instructions Note Date & Type Note Facility Hospital Discharge instructions Additional Instructions Return if symptoms are worse Continue your Zofran and Reglan at home and will add Phenergan for vomiting Follow-up with your surgeon [facility] Work Phone: Instructions Attachments Note Date & Type Note Facility Instructions The following attachments cannot be sent through Care Everywhere.Cholecystectomy Discharge Instructions (Korean)documented in this encounter [facility] Summary Purpose Family History No Family [...] section and content) DATE CREATED AUTHOR 09/28/2017 [facility] DATE CREATED AUTHOR AUTHOR'S ORGANIZ ATION 09/29/2017 [facility] DATE CREATED AUTHOR AUTHOR'S ORGANIZ ATION 04/16/2020 [facility] DATE CREATED AUTHOR AUTHOR'S ORGANIZ ATION 08/24/2022 [facility] DATE CREATED AUTHOR AUTHOR'S ORGANIZ ATION 03/21/2023 [facility] DATE CREATED AUTHOR AUTHOR'S ORGANIZ ATION 05/24/2023 [facility] DATE CREATED AUTHOR AUTHOR'S ORGANIZ ATION 09/29/2023 [facility] [employer] Care Teams (unrecognized sec tion and content) Team Status: Active Member Role Status Dates Supriya Cerrato Primary Care Provider Active Team Status: Inactive Member Role Status Dates Supriya Cerrato Primary Care Provider Active Jacky Alarcon MD Emergency Provider Active Perishable Freight Inspector Relationship Specialty Start Date End Date Supriya Cerrato, [employer]-[facility] [address] [place] [phone] PCP - General Nurse Practitioner 03/30/23 [employer]ishable Freight Inspector Relationship Specialty Start Date End Date Supriya Cerrato, [employer]-[facility] [address] [place] [phone] PCP - General Nurse Practitioner 03/30/23 Goals [...] BE BASED ON THE PRIMARY CLINICAL RECORDS. [facility] [employer] provides no warranty or guarantee of the accuracy or completeness of information in this document.
--- NOTE | 2023-10-04 18:31 | US_ITS ---
[address] [address] Patient Name: EDISON ASHLEY MRN: [id number] date: 2000 Sex: F Assigned Patient Location: [facility] Current Patient Location: Accession/Order Number: [id number] Exam Date: 10/04/2023 18:43 Report Date: 10/05/2023 07:10 At the request of: XIN GRULLON Procedure: US OB BPP w non-stress EXAMINATION: US OB BPP w non-stress HISTORY: EXCESSIVE GROWTH AFFECTING O36.63X0 COMPARISON: No relevant comparison available. TECHNIQUE: Ultrasound biophysical profile was performed in the radiology department. non-reactive stress testing was performed by nursing staff in the birthing center. FINDINGS: BREATHING MOVEMENTS: 2 GROSS BODY MOVEMENTS: 2 TONE: 2 QUALITATIVE AMNIOTIC FLUID VOLUME: 2 PRESENTATION: CEPHALIC HEART RATE: 143.62 bpm AMNIOTIC FLUID VOLUME: 17.5 GESTATIONAL AGE: 35 weeks 5 days US/US OB BPP w non-stress IMPRESSION: Total biophysical profile score: 8 Electronically authenticated by: DONALD AGUILAR Date: 10/05/2023 07:10
--- NOTE | 2023-10-04 18:32 | US_ITS ---
[address] [address] Patient Name: EDISON ASHLEY MRN: [id number] date: 2000 Sex: F Assigned Patient Location: [facility] Current Patient Location: Accession/Order Number: [id number] Exam Date: 10/04/2023 18:43 Report Date: 10/05/2023 07:12 At the request of: XIN GRULLON Procedure: US OB growth EXAMINATION: US OB growth HISTORY: EXCESSIVE GROWTH AFFECTING O36.63X0 COMPARISON: No relevant comparison available. FINDINGS: Heart Rate: 143.62 bpm Amniotic Fluid Volume: 17.5 cm, largest fluid pocket 6.6 cm Number: 1 Position: Cephalic presentation, longitudinal lie BIOMETRY: BPD: 9.27 cm cm; 37 weeks 5 days; 94.60 %% HC: 34.59 cm cm; 40 weeks 0 days; >97 %% AC: 33.66 cm cm; 37 weeks 4 days; 94.90 %% FL: 6.93 cm cm; 35 weeks 4 days; 40.10 %% EFW: 3189.94 g; 7 lbs. 1 oz. 89.50 % FL/AC: 20.58 FL/BPD: 74.76 HC/AC: 1.03 GESTATIONAL AGE: Age by EDC: 35 weeks 5 days LILIAN by EDC: 2023-11-03 Age by US: 37 weeks 5 days LILIAN by US: 2023-10-20 Fluid-filled bowel within observed US/US OB growth IMPRESSION: Head circumference greater than the 97th percentile. Abdominal circumference at the 95th percentile Electronically authenticated by: DONALD AGUILAR Date: 10/05/2023 07:12
[2023-10-04 19:29] VITALS: BP 123/72; PULSE 104
== END 2023-10-04 20:06 | disposition home or self-care (01) ==
LOC: US 17:49 → FBC 18:23
PROVIDERS: Visit Provider Obstetrics & Gynecology
DX: O36.63X0 Maternal care for excessive fetal growth, third trimester, not applicable or unspecified (principal); Z3A.37 37 weeks gestation of pregnancy
CPT/HCPCS: 76816; 76818

== ENCOUNTER 2023-10-07 06:06 | Outpatient (OUT) | payer OTHER, SELFPAY ==
--- OUTSIDE RECORDS SUMMARY | 2023-10-07 06:09 | XMS_ITS | CCD ---
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 Name Role Phone Galdino, Dickson W Unavailable Unavailable Galdino, Dickson W Unavailable Unavailable No Doctor Assigned, Nodr Unavailable Unavail able Galdino, Dickson W Unavailable Unavailable [place], Dickson W Unavailable Unavailable No Doctor Assigned, Nodr Unavailable Unavail able SHEMAR ., STEFAN Admitting Unavailable SHEMAR ., STEFAN Consulting Unavailable AICHHOLZ, LEGAL BILLER SUPRIYA Primary Care Unavailable SHEMAR ., STEFAN Attending Unavailable MORTEZA ., DR LAUREN Admitting Unavailable SHEMAR ., STEFAN Consulting Unavailable AICHHOLZ, LEGAL BILLER SUPRIYA Primary Care Unavailable MORTEZA ., DR LAUREN Attending Unavailable SHEMAR ., STEFAN Admitting Unavailable SHEMAR ., STEFAN Consulting Unavailable SHEMAR ., STEFAN Attending Unavailable AICHHOLZ, LEGAL BILLER SUPRIYA Primary Care Unavailable AICHHOLZ, LEGAL BILLER SUPRIYA Primary Care Unavailable MORTEZA ., DR LAUREN Attending Unavailable MORTEZA ., DR LAUREN Admitting Unavailable MORTEZA ., DR LAUREN Admitting Unavailable MORTEZA ., DR LAUREN Attending Unavailable AICHHOLZ, LEGAL BILLER SUPRIYA Primary Care Unavailable MORTEZA ., DR LAUREN Consulting Unavailable KARASIK ., DR MURPHY Attending Unavailabl e AICHHOLZ, LEGAL BILLER SUPRIYA Primary Care Unavailable KARASIK ., DR [...] MORTEZA ., DR LAUREN Consulting Unavailable AICHHOLZ, LEGAL BILLER SUPRIYA Primary Care Unavailable MORTEZA ., DR LAUREN Attending Unavailable Zieber, Tristan Consulting Unavailable MORTEZA ., DR LAUREN Consulting Unavailable REQUEST, DR NONE LISTED Primary Care Unavaila ble MORTEZA ., DR LAUREN Attending Unavailable MORTEZA ., DR LAUREN Admitting Unavailable Zieber, Tristan Consulting Unavailable MORTEZA ., DR LAUREN Admitting Unavailable AICHHOLZ, LEGAL BILLER SUPRIYA Primary Care Unavailable MORTEZA ., DR LAUREN Attending Unavailable [place], DR DONALD Bryan Consulting Unavailable MORTEZA ., DR LAUREN Consulting Unavailable MORTEZA ., DR LAUREN Admitting Unavailable AICHHOLZ, LEGAL BILLER SUPRIYA Primary Care Unavailable MORTEZA ., DR LAUREN Attending Unavailable MORTEZA ., DR LAUREN Consulting Unavailable SHEMAR ., STEFAN Attending Unavailable SHEMAR ., STEFAN Admitting Unavailable Zieber, Tristan Consulting Unavailable REQUEST, DR NONE LISTED Primary Care Unavaila ble SHEMAR ., STEFAN Consulting Unavailable MORTEZA ., DR LAUREN Admitting Unavailable MORTEZA ., DR LAUREN Consulting Unavailable MORTEZA ., DR LAUREN Attending Unavailable AICHHOLZ, LEGAL BILLER SUPRIYA Primary Care Unavailable Aichholz, Supriya J Primary Care Provider MD Jacky Alarcon Emergency Provider [phone] Jacky Alarcon Attending Unavailable Jacky Alarcon Admitting Unavailable Aicstef, Supriya J Primary Care Unavailable Aichholz PAPERHANGER APPRENTICE-LEGAL BILLER, Supriya J Primary Care Provider Unavailable Primary [...] Propensity to adverse reactions to drug (disorder) [facility] Repository Medications Current Medications Medication Drug Class(es) [...] applicable or unspecified; Translations: [MAT CARE [facility]CSS [facility] GR 3RD TRI UNS] Onset: [...] WITH AUTO DIFFon BASOPHILS ABSOLUTE AUTO 0.0 [facility] Basophils/100 WBC (Bld) 0.3 % 0.2 - 2.0 % [facility] Eosin[facility]/100 WBC (Bld) 2.0 % 0.9 - 7.0 % [facility] Erythrocyte distribution width (RBC) [Ratio] 12.8 % 11.0 - 15.0 % [facility] Hematocrit (Bld) [Volume fraction] 39.3 % 36.0 - 48.0 % [facility] Hemoglobin (Bld) [Mass/Vol] 14.1 g/dL 12.0 - 16.0 g/dL [facility] IMMATURE GRANULOCYTES ABS AUTO 0.07 High [facility] Immature granulocytes/100 WBC (Bld) 0.7 % High 0.0 - 0.5 % [facility] Interpretation and review of laboratory results Abnormal [facility] LYMPHOCYTES ABSOLUTE AUTO 2.0 [facility] Lymphocytes/100 WBC (Bld) 19.1 % Low 20.5 - 60.0 % [facility] MCH (RBC) [Entitic mass] 32.0 pg 26.7 - 34.0 pg [facility] MCHC (RBC) [Mass/Vol] 35.9 g/dL High 29.9 - 35.2 g/dL [facility] MCV (RBC) [Entitic vol] 89.3 fL 81.0 - 99.0 fL [facility] MONOCYTES ABSOLUTE AUTO 0.5 [facility] Monocytes/100 WBC (Bld) 4.7 % 1.7 - 12.0 % [facility] NEUTROPHILS ABSOLUTE AUTO 7.6 High [facility] Neutrophils/100 WBC (Bld) 73.2 % 43.0 - 75.0 % [facility] Platelet mean volume (Bld) [Entitic vol] 11.4 fL 9.5 - 13.5 fL [facility] TBH EO # 0.2 [facility] TB PLT 218 [facility] RBC 4.40 [facility] TBH WBC 10.4 [facility] Surgical Pathologyon 024 Surgical Pathology Normal [facility] Comment on above: Result Comment: [facility] [address] [place] [address] Surgical Pathology Consultation Patient Name:DARY ASHLEY:2000 (Age: 23)Gender:FTaken:4Reported:4Physician(s):GERSON Kelsey To: Rec. #:[id number]: #[id number] Final Pathologic Diagnosis Gallbladder, cholecystectomy: Chronic cholecystitis with organizing hemorrhage and fibroblast proliferation involving gallbladder wall, accompanied by extensive mucosal erosion with reactive changes, and focal ceroid granulomas. No evidence of malignancy or dysplasia. Cholelithiasis. Report Electronically Signed Out ao/05/12/2023olamide Moreno MD Interpretation performed at [facility], [address] [place] [address], License number: [id number]. Clinical History Cholelithiasis. Gross Description Received in [...] congested, hemorrhagic and velvety in the neck. Raveler sections are submitted in cassettes A- B, as: A- cystic duct margin and customer counter representative ragged defects,B- customer counter representative neck body and fundus. After initial microscopic evaluation, additional sections are submitted in cassettes C-E. (5,ss,[id number], m6) MARYJANE/ mxw/05/04/2023SSI Specimen(s) Received Gallbladder Fee Codes(s): 1; 20323 gall bladderon 03-11-2023 gall bladder [facility] [place] [address] Ultrasound Report Signed Patient: Dary Ashley MR#: [id number] : 2000 Acct:[id number] Age/Sex: 22 / F ADM Date: 03/10/23 Loc: ER Room: Type: [facility] ER Attending Dr: Ordering Provider: Jacky Alarcon [...] Nataliia Scott M.D.03/11/2023 8:10 AM Dictation Location: [place] [address] Tech: Isi Federico Transcribed By: RONI 03/11/23 0810 Dictated By: Nataliia Scott MD 03/11/23 0807 Signed By: 03/11/23 0810 Normal [facility] Alanine aminotransferase [En zymatic activity/volume] in Serum or PlasmaOrdered By: Jacky Alarcon on 03-10-2023 ALT [Catalytic activity/Vol] 36 U/L 7-52 [facility] Albumin [Mass/volume] in Ser um or Plasma by Bromocresol green (BCG) dye binding methoOrdered By: Jacky Alarcon on 03-10-2023 Albumin BCG dye [Mass/Vol] 4.5 g/dL 3.5-5.7 [facility] Alkaline phosphatase [Enzyma tic activity/volume] in Serum or PlasmaOrdered By: Jacky Alarcon on 03-10-2023 ALP [Catalytic activity/Vol] 71 U/L 34-104 [facility] Aspartate aminotransferase [ Enzymatic activity/volume] in Serum or PlasmaOrdered By: Jacky Alarcon on 03-10-2023 AST [Catalytic activity/Vol] 17 U/L 13-39 [facility] Automated erythrocytes count in urine sediment (number/area)Ordered By: Jacky Alarcon on 03-10-2023 RBC Auto (Urine sed) [#/Area] 50-100 [HPF] 0-4 [facility] Automated leukocytes count i n urine sediment (number/area)Ordered By: Jacky Alarcon on 03-10-2023 WBC Auto (Urine sed) [#/Area] 5-9 [HPF] 0-4 [facility] Basic Metabolic Panelon 12 Anion gap [Moles/Vol] 16.5 mmol/L High 6.0-15.0 [facility] Comment on above: Performed By: #### L IPASE, HCGQNT, HEPATIC, BMP, CBC #### [facility] [address] Calcium [Mass/Vol] 9.3 mg/dL Normal 8.6-10.3 [facility] Comment on above: Performed By: #### L IPASE, HCGQNT, HEPATIC, BMP, CBC #### [facility] [address] [place] [address] [place] Chloride [Moles/Vol] 101 mmol/L Normal 98-107 [facility] Comment on above: Performed By: #### L IPASE, HCGQNT, HEPATIC, BMP, CBC #### [facility] [address] [place] [address] [place] CO2 [Moles/Vol] 18.8 mmol/L Low 21.0-31.0 [facility] Comment on above: Performed By: #### L IPASE, HCGQNT, HEPATIC, BMP, CBC #### [facility] [address] [place] [address] [place] Creatinine [Mass/Vol] 0.64 mg/dL Normal 0.60-1.20 [facility] Comment on above: Performed By: #### L IPASE, HCGQNT, HEPATIC, BMP, CBC #### [facility] [address] [place] [address] [place] Creatinine Clr Calc Pharmacy 148.58 Normal [facility] Comment on above: Performed By: #### L IPASE, HCGQNT, HEPATIC, BMP, CBC #### [facility] [address] [place] [address] [place] GFR/1.73 sq M.predicted MDRD (S/P/Bld) [Vol rate/Area] mL/min/{1.73_m2} Normal [facility] Comment on above: Performed By: #### L IPASE, HCGQNT, HEPATIC, BMP, CBC #### [facility] [address] Glucose [Mass/Vol] 83 mg/dL Normal 70-100 [facility] Comment on above: Result Comment: [place] Glucose Reference Range is dependent on time and content of last meal. Glucose of more than 200 mg/dL in a nonstressed, ambulatory subject supports the diagnosis of Diabetes Mellitus. ADA recommended reference range Performed By: #### L IPASE, HCGQNT, HEPATIC, BMP, CBC #### [facility] [address] Potassium [Moles/Vol] 3.3 mmol/L Low 3.5-5.1 [facility] Comment on above: Performed By: #### L IPASE, HCGQNT, HEPATIC, BMP, CBC #### [address] Sodium [Moles/Vol] 133 mmol/L Low 136-145 [facility] Comment on above: Performed By: #### L IPASE, HCGQNT, HEPATIC, BMP, CBC #### [facility] [address] [place] [address] Urea nitrogen [Mass/Vol] 6 mg/dL Low 7-25 [facility] Comment on above: Performed By: #### L IPASE, HCGQNT, HEPATIC, BMP, CBC #### [facility] [address] [place] [address] Basophils Auto (Bld) [#/Vol] Ordered By: Jacky Alarcon on 03-10-2023 Basophils (Bld) [#/Vol] 0.1 10*3/uL 0.0-0.2 [facility] Basophils/100 WBC Auto (Bld) Ordered By: Jacky Alarcon on 03-10-2023 Basophils/100 WBC (Bld) 0.4 % . [facility] Bilirubin Test strip Ql (U)O rdered By: Jacky Alarcon on 03-10-2023 Bilirubin Ql (U) Negative Negative [facility] Bilirubin.direct [Mass/volum e] in Serum or PlasmaOrdered By: Jacky Alarcon on 03-10-2023 Bilirubin.direct [Mass/Vol] 0.40 mg/dL 0.03-0.18 [facility] Bilirubin.total [Mass/volume ] in Serum or PlasmaOrdered By: Jacky Alarcon on 03-10-2023 Bilirubin [Mass/Vol] 1.2 mg/dL 0.3-1.0 [facility] Calcium [Mass/volume] in Ser um or PlasmaOrdered By: Jacky Alarcon on 03-10-2023 Calcium [Mass/Vol] 9.3 mg/dL 8.6-10.3 [facility] Carbon dioxide, total [Moles /volume] in Serum or PlasmaOrdered By: Jacky Alarcon on 03-10-2023 CO2 [Moles/Vol] 18.8 mmol/L 21.0-31.0 [facility] Chloride [Moles/volume] in S rahul or PlasmaOrdered By: Jacky Alarcon on 03-10-2023 Chloride [Moles/Vol] 101 mmol/L 98-107 [facility] Choriogonadotropin.beta subu nit [Units/volume] in Serum or PlasmaOrdered By: Jacky Alarcon on 03-10-2023 [place] [address].00 m[IU]/mL [facility] Comment on above: Approximate Approxim ate hCG Gestational Age Range (mIU/ml) (weeks)0.2-1 5-50 1-2 50-500 2-3 100-5,000 3-4 500-10,000 4-5 1,000-50,000 5-6 10,000-100,000 6-8 15,000-200,000 8-12 10,000-100,000 Color Auto (U)Ordered By: Corinna Alarcon on 03-10-2023 Color (U) Dark yellow Yellow [facility] Complete Blood Count Auto Di ffon 03-10-2023 Basophils (Bld) [#/Vol] 0.1 10*3/uL Normal 0.0-0.2 [facility] Comment on above: Result Comment: PERF ORMED BY: [facility] [address] [place] [address] PATHOLOGIST [employer]VIR[employer] HE[employer] AND SAFETY INTERN ANDRÉS MACEDO M.D. Performed By: #### L IPASE, HCGQNT, HEPATIC, BMP, CBC #### [address] Basophils/100 WBC (Bld) 0.4 % Normal . [facility] Comment on above: Performed By: #### L IPASE, HCGQNT, HEPATIC, BMP, CBC #### [address] Eosinophils (Bld) [#/Vol] 0.1 10*3/uL Normal 0.0-0.45 [facility] Comment on above: Performed By: #### L IPASE, HCGQNT, HEPATIC, BMP, CBC #### [address] Eosinophils/100 WBC (Bld) 0.5 % Normal . [facility] Comment on above: Performed By: #### L IPASE, HCGQNT, HEPATIC, BMP, CBC #### [address] Erythrocyte distribution width (RBC) [Ratio] 13.3 % Normal 11.9-15.3 [facility] Comment on above: Performed By: #### L IPASE, HCGQNT, HEPATIC, BMP, CBC #### [address] Hematocrit (Bld) [Volume fraction] 47.2 % High 34.0-46.4 [facility] Comment on above: Performed By: #### L IPASE, HCGQNT, HEPATIC, BMP, CBC #### [address] Hemoglobin (Bld) [Mass/Vol] 16.5 g/dL High 11.8-15.4 [facility] Comment on above: Performed By: #### L IPASE, HCGQNT, HEPATIC, BMP, CBC #### [address] Lymphocytes (Bld) [#/Vol] 1.9 10*3/uL Normal 1.00-4.8 [facility] Comment on above: Performed By: #### L IPASE, HCGQNT, HEPATIC, BMP, CBC #### [address] Lymphocytes/100 WBC (Bld) 11.6 % Normal . [facility] Comment on above: Performed By: #### L IPASE, HCGQNT, HEPATIC, BMP, CBC #### [address] MCH (RBC) [Entitic mass] 30.8 pg Normal 24.7-34.3 [facility] Comment on above: Performed By: #### L IPASE, HCGQNT, HEPATIC, BMP, CBC #### [address] MCV (RBC) [Entitic vol] 87.8 fL Normal 80-100 [facility] Comment on above: Performed By: #### L IPASE, HCGQNT, HEPATIC, BMP, CBC #### [address] Mean Corpuscular HGB Conc 35.0 g/dL Normal 32.0-35.0 [facility] Comment on above: Performed By: #### L IPASE, HCGQNT, HEPATIC, BMP, CBC #### [address] Monocytes (Bld) [#/Vol] 1.4 10*3/uL High 0.0-0.8 [facility] Comment on above: Performed By: #### L IPASE, HCGQNT, HEPATIC, BMP, CBC #### [place] [address] [place] Monocytes/100 WBC (Bld) 16.05 % Normal 0.00-20.00 [facility] Comment on above: Performed By: #### L IPASE, HCGQNT, HEPATIC, BMP, CBC #### [address] Monocytes/100 WBC (Bld) 8.8 % Normal . [facility] Comment on above: Performed By: #### L IPASE, HCGQNT, HEPATIC, BMP, CBC #### [place] [address] [place] Neutrophils (Bld) [#/Vol] 12.6 10*3/uL High 1.8-7.7 [facility] Comment on above: Performed By: #### L IPASE, HCGQNT, HEPATIC, BMP, CBC #### [place] [address] [place] Neutrophils/100 WBC (Bld) 78.7 % Normal . [facility] Comment on above: Performed By: #### L IPASE, HCGQNT, HEPATIC, BMP, CBC #### [address] NRBC% 0.1 /100{WBC} Normal 0-0.5 [facility] Comment on above: Performed By: #### L IPASE, HCGQNT, HEPATIC, BMP, CBC #### [address] Platelet mean volume (Bld) [Entitic vol] 9.7 fL Normal 6.3-10.7 [facility] Comment on above: Performed By: #### L IPASE, HCGQNT, HEPATIC, BMP, CBC #### [place] [address] [place] Platelets (Bld) [#/Vol] 263 10*3/uL Normal 150-450 [facility] Comment on above: Performed By: #### L IPASE, HCGQNT, HEPATIC, BMP, CBC #### [place] [address] [place] RBC (Bld) [#/Vol] 5.37 10*6/uL High 3.60-5.00 [facility] Comment on above: Performed By: #### L IPASE, HCGQNT, HEPATIC, BMP, CBC #### [place] [address] [place] WBC (Bld) [#/Vol] 16.0 10*3/uL High 3.8-11.6 [facility] Comment on above: Performed By: #### L IPASE, HCGQNT, HEPATIC, BMP, CBC #### [facility] [address] Creatinine [Mass/volume] in Serum or PlasmaOrdered By: Jacky Alarcon on 03-10-2023 Creatinine [Mass/Vol] 0.64 mg/dL 0.60-1.20 [facility] Dipstick and Microscopicon 1 05-11-2022 Appearance (U) Turbid Critically abnormal Clear [facility] Comment on above: Order Comment: Name Collection Type:: Clean-Voided Midstream Performed By: #### A DDONUAPLUS, CUU #### [facility] [address] [place] [address] [place] Bacteria,Urine Rare High None Seen [facility] Comment on above: Order Comment: Name Collection Type:: Clean-Voided Midstream Performed By: #### A DDONUAPLUS, CUU #### [facility] [address] [place] [address] [place] Bilirubin,Urine Negative Normal Negative [facility] Comment on above: Order Comment: Name Collection Type:: Clean-Voided Midstream Performed By: #### A DDONUAPLUS, CUU #### [facility] [address] [place] [address] [place] Color (U) Dark Yellow Critically abnormal Yellow [facility] Comment on above: Order Comment: Name Collection Type:: Clean-Voided Midstream Performed By: #### A DDONUAPLUS, CUU #### [facility] [address] [place] [address] [place] Glucose Ql (U) Normal Normal Normal [facility] Comment on above: Order Comment: Name Collection Type:: Clean-Voided Midstream Performed By: #### A DDONUAPLUS, CUU #### [facility] [address] [place] [address] [place] Hyaline Casts,Urine 9-19 High 0-8 [facility] Comment on above: Order Comment: Name Collection Type:: Clean-Voided Midstream Result Comment: PERF ORMED BY: [address] [place] [address] PATHOLOGIST [employer]AF[employer] INTERN ANDRÉS MACEDO M.D. Performed By: #### A DDONUAPLUS, CUU #### [address] Ketones Ql (U) 4+ High Negative [facility] Comment on above: Order Comment: Name Collection Type:: Clean-Voided Midstream Performed By: #### A DDONUAPLUS, CUU #### [address] Leukocyte esterase Test strip Ql (U) 1+ High Negative [facility] Comment on above: Order Comment: Name Collection Type:: Clean-Voided Midstream Performed By: #### A DDONUAPLUS, CUU #### [address] Nitrite,Urine Negative Normal Negative [facility] Comment on above: Order Comment: Name Collection Type:: Clean-Voided Midstream Performed By: #### A DDONUAPLUS, CUU #### [address] Occult Blood,Urine 3+ High Negative [facility] Comment on above: Order Comment: Name Collection Type:: Clean-Voided Midstream Result Comment: PERF ORMED BY: [place] [address] PATHOLOGIST [employer] AND SAFET[employer] INTERN ANDRÉS MACEDO M.D. Performed By: #### A DDONUAPLUS, CUU #### [address] Othe Crystals,Urine Normal [facility] Comment on above: Order Comment: Name Collection Type:: Clean-Voided Midstream Result Comment: sulf a crystals Performed By: #### A DDONUAPLUS, CUU #### [address] pH (U) 6.5 [pH] Normal 5.0-9.0 [facility] Comment on above: Order Comment: Name Collection Type:: Clean-Voided Midstream Performed By: #### A DDONUAPLUS, CUU #### [address] Protein (U) [Mass/Vol] 100 mg/dL High Negative [facility] Comment on above: Order Comment: Name Collection Type:: Clean-Voided Midstream Performed By: #### A DDONUAPLUS, CUU #### [address] RBC,Urine 50-100 High 0-4 [facility] Comment on above: Order Comment: Name Collection Type:: Clean-Voided Midstream Performed By: #### A DDONUAPLUS, CUU #### [address] Specificy Carpenter,Urine 1.029 Normal 1.001-1.03 0 [facility] Comment on above: Order Comment: Name Collection Type:: Clean-Voided Midstream Performed By: #### A DDONUAPLUS, CUU #### [address] Squamous Epithelial Cell,Urine 1-2 Normal 0-2 [facility] Comment on above: Order Comment: Name Collection Type:: Clean-Voided Midstream Performed By: #### A DDONUAPLUS, CUU #### [address] Urobilinogen,Urine Normal Normal Normal [facility] Comment on above: Order Comment: Name Collection Type:: Clean-Voided Midstream Performed By: #### A DDONUAPLUS, CUU #### [address] WBC,Urine 5-9 High 0-4 [facility] Comment on above: Order Comment: Name Collection Type:: Clean-Voided Midstream Performed By: #### A DDONUAPLUS, CUU #### [address] Eosinophils Auto (Bld) [#/Vo l]Ordered By: Jacky Alarcon on 03-10-2023 Eosinophils (Bld) [#/Vol] 0.1 10*3/uL 0.0-0.45 [facility] Eosinophils/100 WBC Auto (Bl d)Ordered By: Jacky Alarcon on 03-10-2023 Eosinophils/100 WBC (Bld) 0.5 % . [facility] Erythrocyte distribution wid th Auto (RBC) [Ratio]Ordered By: Jacky Alarcon on 03-10-2023 Erythrocyte distribution width (RBC) [Ratio] 13.3 % 11.9-15.3 [facility] Globulin Calc (S) [Mass/Vol] Ordered By: Jacky Alarcon on 03-10-2023 Globulin (S) [Mass/Vol] 3.5 g/dL [facility] Glucose [Mass/volume] in Ser um or PlasmaOrdered By: Jacky Alarcon on 03-10-2023 Glucose [Mass/Vol] 83 mg/dL 70-100 [facility] Comment on above: ADA recommended refe rence rangeRandom Glucose Reference Range is dependent on time and content of last meal. Glucose of more than 200 mg/dL in a nonstressed, ambulatory subject supports the diagnosis of Diabetes Mellitus. HCG ( test) [place].rapi d Ql (U)Ordered By: Jacky Alarcon on 03-10-2023 HCG ( test) Ql (U) Positive [facility] HCG,Quantitativeon 3 HCG,Quantitative 56937.00 m[iU]/mL Normal F [facility] Comment on above: Result Comment: Appr oximate Approximate hCG Gestational Age Range (mIU/ml) (weeks) 0.2-1 5-50 1-2 50-500 2-3 100-5,000 3-4 500-10,000 4-5 1,000-50,000 5-6 10,000-100,000 6-8 15,000-200,000 8-12 10,000-100,000 PERFORMED BY: [place] [address] PATHOLOGIST [employer] AND SAFET[employer] INTERN ANDRÉS MACEDO M.D. Performed By: #### L IPASE, HCGQNT, HEPATIC, BMP, CBC #### [address] HCG,Urineon 03-10-2023 Beta HCG ( test) Ql (U) Positive High [facility] Comment on above: Result Comment: PERF ORMED BY: [place] [address] PATHOLOGIST [employer] HE[employer] AND SAFET[employer] INTERN ANDRÉS MACEDO M.D. Performed By: #### U HCG #### [facility] [address] [place] [address] Hematocrit Auto (Bld) [Volum e fraction]Ordered By: Jacky Alarcon on 03-10-2023 Hematocrit (Bld) [Volume fraction] 47.2 % 34.0-46.4 [facility] Hemoglobin [Mass/volume] in BloodOrdered By: Jacky Alarcon on 03-10-2023 Hemoglobin (Bld) [Mass/Vol] 16.5 g/dL 11.8-15.4 [facility] Hepatic Panelon 03-10-2023 Albumin [Mass/Vol] 4.5 g/dL Normal 3.5-5.7 [facility] Comment on above: Performed By: #### L IPASE, HCGQNT, HEPATIC, BMP, CBC #### [facility] [address] [place] [address] [place] Albumin/Globulin [Mass ratio] 1.3 {ratio} Normal [facility] Comment on above: Performed By: #### L IPASE, HCGQNT, HEPATIC, BMP, CBC #### [facility] [address] [place] [address] [place] ALP [Catalytic activity/Vol] 71 U/L Normal 34-104 [facility] Comment on above: Performed By: #### L IPASE, HCGQNT, HEPATIC, BMP, CBC #### [facility] [address] [place] [address] [place] ALT [Catalytic activity/Vol] 36 U/L Normal 7-52 [facility] Comment on above: Performed By: #### L IPASE, HCGQNT, HEPATIC, BMP, CBC #### [facility] [address] [place] [address] [place] AST [Catalytic activity/Vol] 17 U/L Normal 13-39 [facility] Comment on above: Performed By: #### L IPASE, HCGQNT, HEPATIC, BMP, CBC #### [facility] [address] Bilirubin [Mass/Vol] 1.2 mg/dL High 0.3-1.0 [facility] Comment on above: Performed By: #### L IPASE, HCGQNT, HEPATIC, BMP, CBC #### [facility] [address] Bilirubin,Indirect 0.8 mg/dL Normal [facility] Comment on above: Performed By: #### L IPASE, HCGQNT, HEPATIC, BMP, CBC #### [facility] [address] Bilirubin.indirect [Mass/Vol] 0.40 mg/dL High 0.03-0.18 [facility] Comment on above: Performed By: #### L IPASE, HCGQNT, HEPATIC, BMP, CBC #### [address] Globulin (S) [Mass/Vol] 3.5 g/dL Normal [facility] Comment on above: Performed By: #### L IPASE, HCGQNT, HEPATIC, BMP, CBC #### [address] Protein [Mass/Vol] 8.0 g/dL Normal 6.4-8.9 [facility] Comment on above: Performed By: #### L IPASE, HCGQNT, HEPATIC, BMP, CBC #### [facility] [address] [place] [address] Ketones Auto test strip (U) [Mass/Vol]Ordered By: Jacky Alarcon on 03-10-2023 Ketones (U) [Mass/Vol] 4+ Negative [facility] - UrinalysisOrder ed By: Jacky Alarcon on 03-10-2023 Hyaline casts LM Ql (Urine sed) 9-19 [LPF] 0-8 [facility] Leukocytes [#/volume] correc anabell for nucleated erythrocytes in Blood by Automated counOrdered By: Jacky Alarcon on 03-10-2023 WBC corrected for nucl RBC Auto (Bld) [#/Vol] 16.0 10*3/uL 3.8-11.6 [facility] Lipaseon 03-10-2023 Lipase [Catalytic activity/Vol] 35.0 U/L Normal 11.0-82.0 [facility] Comment on above: Result Comment: PERF ORMED BY: [facility] [address] [id number] PATHOLOGIST [employer] INTERN ANDRÉS MACEDO M.D. Performed By: #### L IPASE, HCGQNT, HEPATIC, BMP, CBC #### [facility] [address] Lipase [Enzymatic activity/v olume] in Serum or PlasmaOrdered By: Jacky Alarcon on 03-10-2023 Lipase [Catalytic activity/Vol] 35.0 U/L 11.0-82.0 [facility] Lymphocytes Auto (Bld) [#/Vo l]Ordered By: Jacky Alarcon on 03-10-2023 Lymphocytes (Bld) [#/Vol] 1.9 10*3/uL 1.00-4.8 [facility] Lymphocytes/100 WBC Auto (Bl d)Ordered By: Jacky Alarcon on 03-10-2023 Lymphocytes/100 WBC (Bld) 11.6 % . [facility] MCH Auto (RBC) [Entitic mass ]Ordered By: Jacky Alarcon on 03-10-2023 MCH (RBC) [Entitic mass] 30.8 pg 24.7-34.3 [facility] MCHC Auto (RBC) [Mass/Vol]Or dered By: Jacky Alarcon on 03-10-2023 MCHC (RBC) [Mass/Vol] 35.0 g/dL 32.0-35.0 [facility] MCV Auto (RBC) [Entitic vol] Ordered By: Jacky Alarcon on 03-10-2023 MCV (RBC) [Entitic vol] 87.8 fL 80-100 [facility] Monocyte distribution width [Entitic volume] in Blood by AutomatedOrdered By: Jacky Alarcon on 03-10-2023 Monocyte distribution width Auto (Bld) [Entitic vol] 16.05 % 0.00-20.00 [facility] Monocytes Auto (Bld) [#/Vol] Ordered By: Jacky Alarcon on 03-10-2023 Monocytes (Bld) [#/Vol] 1.4 10*3/uL 0.0-0.8 [facility] Monocytes/100 WBC Auto (Bld) Ordered By: Jacky Alarcon on 03-10-2023 Monocytes/100 WBC (Bld) 8.8 % . [facility] Neutrophils Auto (Bld) [#/Vo l]Ordered By: Jacky Alarcon on 03-10-2023 Neutrophils (Bld) [#/Vol] 12.6 10*3/uL 1.8-7.7 [facility] Neutrophils/100 WBC Auto (Bl d)Ordered By: Jacky Alarcon on 03-10-2023 Neutrophils/100 WBC (Bld) 78.7 % . [facility] Nitrite Test strip Ql (U)Ord ered By: Jacky Alarcon on 03-10-2023 Nitrite Ql (U) Negative Negative [facility] No Panel InformationOrdered By: Jacky Alarcon on 03-10-2023 Estimated GFR (CKD-EPI) > 60.0 mL/Min [facility] Creatinine Clearance (Chem 148.58 [facility] Nucleated erythrocytes [Pres ence] in Blood by Automated countOrdered By: Jacky Alarcon on 03-10-2023 Nucleated RBC Auto Ql (Bld) 0.1 /100{WBC} 0-0.5 [facility] Platelet mean volume Auto (B ld) [Entitic vol]Ordered By: Jacky Alarcon on 03-10-2023 Platelet mean volume (Bld) [Entitic vol] 9.7 fL 6.3-10.7 [facility] Platelets Auto (Bld) [#/Vol] Ordered By: Jacky Alarcon on 03-10-2023 Platelets (Bld) [#/Vol] 263 10*3/uL 150-450 [facility] Potassium [Moles/volume] in Serum or PlasmaOrdered By: Jacky Alarcon on 03-10-2023 Potassium [Moles/Vol] 3.3 mmol/L 3.5-5.1 [facility] Protein Auto test strip (U) [Mass/Vol]Ordered By: Jacky Alarcon on 03-10-2023 Protein (U) [Mass/Vol] 100 mg/dL Negative [facility] Protein [Mass/volume] in Ser um or PlasmaOrdered By: Jacky Alarcon on 03-10-2023 Protein [Mass/Vol] 8.0 g/dL 6.4-8.9 [facility] RBC Auto (Bld) [#/Vol]Ordere d By: Jacky Alarcon on 03-10-2023 RBC (Bld) [#/Vol] 5.37 10*6/uL 3.60-5.00 [facility] Serum or plasma albumin/glob ulin mass ratioOrdered By: Jacky Alarcon on 03-10-2023 Albumin/Globulin [Mass ratio] 1.3 {ratio} [facility] Serum or plasma anion gap de terminationOrdered By: Jacky Alarcon on 03-10-2023 Anion gap [Moles/Vol] 16.5 mmol/L 6.0-15.0 [facility] Serum or plasma non-glucuron idated bilirubin measurement (mass/volume)Ordered By: Jacky Alarcon on 03-10-2023 Bilirubin.indirect [Mass/Vol] 0.8 mg/dL [facility] Sodium [Moles/volume] in Ser um or PlasmaOrdered By: Jacky Alarcon on 03-10-2023 Sodium [Moles/Vol] 133 mmol/L 136-145 [facility] Specific gravity Auto test s trip (U) [Rel density]Ordered By: Jacky Alarcon on 03-10-2023 Specific gravity (U) [Rel density] 1.029 1.001-1.03 0 [facility] Squamous epithelial cells de tection in urine sediment by light microscopyOrdered By: Jacky Alarcon on 03-10-2023 Epithelial cells.squamous LM Ql (Urine sed) 1-2 [HPF] 0-2 [facility] Urea nitrogen [Mass/volume] in Serum or PlasmaOrdered By: Jacky Alarcon on 03-10-2023 Urea nitrogen [Mass/Vol] 6 mg/dL 7-25 [facility] Urine Cultureon 03-10-2023 Bacteria identified Cx Nom (U) >100,000 colonies/ml mixed bacterial skin contaminants 2 Days PERFORMED BY: [address] [address] [place] [address] PATHOLOGIST [employer] INTERN ANDRÉS MACEDO M.D. Normal [facility] Comment on above: Performed By: #### A DDONUAPLUS, CUU #### [facility] [address] Urine bacteria detection by automated methodOrdered By: Jacky Alarcon on 03-10-2023 Bacteria Auto Ql (U) Rare None Seen [facility] Urine clarity by refractomet ry automatedOrdered By: Jacky Alarcon on 03-10-2023 Clarity Refractometry automated (U) Turbid Clear [facility] Urine glucose measurement by automated test strip (mass/volume)Ordered By: Jacky Alarcon on 03-10-2023 Glucose Auto test strip (U) [Mass/Vol] Normal mg/dL Normal [facility] Urine hemoglobin detection b y automated test stripOrdered By: Jacky Alarcon on 03-10-2023 Hemoglobin Auto test strip Ql (U) 3+ Negative [facility] Urine leukocyte esterase det ection by automated test stripOrdered By: Jacky Alarcon on 03-10-2023 Leukocyte esterase Auto test strip Ql (U) 1+ Negative [facility] Urine sediment crystal ident ification by light microscopyOrdered By: Jacky Alarcon on 03-10-2023 Crystals LM Nom (Urine sed) See comment [facility] Comment on above: sulfa crystals Urobilinogen Auto test strip (U) [Mass/Vol]Ordered By: Jacky Alarcon on 03-10-2023 Urobilinogen (U) [Mass/Vol] Normal mg/dL Normal [facility] WBC Auto (Bld) [#/Vol]Ordere d By: Jacky Alarcon on 03-10-2023 WBC (Bld) [#/Vol] 16.0 10*3/uL 3.8-11.6 [facility] pH Auto test strip (U)Ordere d By: Jacky Alarcon on 03-10-2023 pH (U) 6.5 [pH] 5.0-9.0 [facility] CBC AUTO DIFFon 07-30-2022 BASO # 0.1 103/ul Normal 0.0-0.1 [facility] Comment on above: Performed By: #### G TT3P #### [facility] [address] [address] [address] Jackelyn Celestin Basophils/100 WBC (Bld) 0.6 % Normal 0.2-2.0 [facility] Comment on above: Performed By: #### G TT3P #### [facility] [address] [place] [address] Dr. Jackelyn Celestin EO # 0.2 103/ul Normal 0.0-0.7 [facility] Comment on above: Performed By: #### G TT3P #### [facility] [address] [place] [address] Dr. Jackelyn Celestin Eosinophils/100 WBC (Bld) 1.5 % Normal 0.9-7.0 [facility] Comment on above: Performed By: #### G TT3P #### [facility] [address] [place] [address] Dr. Jackelyn Celestin Erythrocyte distribution width (RBC) [Ratio] 14.5 % Normal 11.0-15.0 [facility] Comment on above: Performed By: #### G TT3P #### [facility] [address] [place] [address] Dr. Jackelyn Celestin Hematocrit (Bld) [Volume fraction] 33.9 % Critically low 36.0-48.0 [facility] Comment on above: Performed By: #### G TT3P #### [facility] [address] [place] [address] Dr. Jackelyn Celestin Hemoglobin (Bld) [Mass/Vol] 11.0 g/dL Critically low 12.0-16.0 [facility] Comment on above: Performed By: #### G TT3P #### [facility] [address] [place] [address] Dr. Jackelyn Celestin IG # 0.13 10e3/ul Critically high 0.00-0.03 [facility] Comment on above: Performed By: #### G TT3P #### [facility] [address] [place] [address] Dr. Jackelyn Celestin IG % 1.1 % Critically high 0.0-0.5 [facility] Comment on above: Performed By: #### G TT3P #### [facility] [address] [place] [address] Dr. Jackelyn Celestin LYMPH # 2.2 103/ul Normal 1.2-3.8 [facility] Comment on above: Performed By: #### G TT3P #### [facility] [address] [place] [address] Dr. Jackelyn Celestin Lymphocytes/100 WBC (Bld) 17.9 % Critically low 20.5-60.0 [facility] Comment on above: Performed By: #### G TT3P #### [facility] [address] [place] [address] Dr. Jackelyn Celestin MANUAL DIFF REQ NO Normal [facility] Comment on above: Performed By: #### G TT3P #### [facility] [address] [place] [address] Dr. Jackelyn Celestin MCH (RBC) [Entitic mass] 28.6 pg Normal 26.7-34.0 [facility] Comment on above: Performed By: #### G TT3P #### [facility] [address] [place] [address] Dr. Jackelyn Celestin MCHC (RBC) [Mass/Vol] 32.4 g/dL Normal 29.9-35.2 [facility] Comment on above: Performed By: #### G TT3P #### [facility] [address] [place] [address] Dr. Jackelyn Celestin MCV (RBC) [Entitic vol] 88.1 fL Normal 81.0-99.0 [facility] Comment on above: Performed By: #### G TT3P #### [facility] [address] [place] [address] Dr. Jackelyn Celestin MONO # 0.8 103/ul Normal 0.3-0.8 [facility] Comment on above: Performed By: #### G TT3P #### [facility] [address] [place] [address] Dr. Jackelyn Celestin Monocytes/100 WBC (Bld) 6.9 % Normal 1.7-12.0 [facility] Comment on above: Performed By: #### G TT3P #### [facility] [address] [place] [address] Dr. Jackelyn Celestin NEUT # 8.7 103/ul Critically high 1.4-6.5 [facility] Comment on above: Performed By: #### G TT3P #### [facility] [address] [place] [address] Dr. Jackelyn Celestin Neutrophils/100 WBC (Bld) 72.0 % Normal 43.0-75.0 [facility] Comment on above: Performed By: #### G TT3P #### [facility] [address] [place] [address] Dr. Jackelyn Celestin Platelet mean volume (Bld) [Entitic vol] 11.5 fL Normal 9.5-13.5 [facility] Comment on above: Performed By: #### G TT3P #### [facility] [address] [place] [address] Dr. Jackelyn Celestin PLT 146 103/ul Critically low 150-450 [facility] Comment on above: Performed By: #### G TT3P #### [facility] [address] [place] [address] Dr. Jackelyn Celestin RBC 3.85 106/ul Critically low 4.20-5.40 [facility] Comment on above: Performed By: #### G TT3P #### [facility] [address] [place] [address] Dr. Jackelyn Celestin WBC 12.1 103/ul Critically high 4.0-11.0 [facility] Comment on above: Performed By: #### G TT3P #### [facility] [address] [place] [address] Dr. Jackelyn Celestin CBC AUTO DIFFon 07-29-2022 BASO # 0.0 103/ul Normal 0.0-0.1 [facility] Comment on above: Performed By: #### [id number] #### [facility] [address] [place] [address] Dr. Jackelyn Celestin Basophils/100 WBC (Bld) 0.4 % Normal 0.2-2.0 [facility] Comment on above: Performed By: #### [id number] #### [facility] [address] [place] [address] Dr. Jackelyn Celestin EO # 0.2 103/ul Normal 0.0-0.7 [facility] Comment on above: Performed By: #### [id number] #### [facility] [address] [place] [address] Dr. Jackelyn Celestin Eosinophils/100 WBC (Bld) 1.4 % Normal 0.9-7.0 [facility] Comment on above: Performed By: #### [id number] #### [facility] [address] [place] [address] Dr. Jackelyn Celestin Erythrocyte distribution width (RBC) [Ratio] 14.1 % Normal 11.0-15.0 [facility] Comment on above: Performed By: #### [id number] #### [facility] [address] [place] [address] Dr. Jackelyn Celestin Hematocrit (Bld) [Volume fraction] 36.0 % Normal 36.0-48.0 [facility] Comment on above: Performed By: #### [id number] #### [facility] [address] [place] [address] Dr. Jackelyn Celestin Hemoglobin (Bld) [Mass/Vol] 12.2 g/dL Normal 12.0-16.0 [facility] Comment on above: Performed By: #### [id number] #### [facility] [address] [place] [address] Dr. Jackelyn Celestin IG # 0.10 10e3/ul Critically high 0.00-0.03 [facility] Comment on above: Performed By: #### [id number] #### [facility] [address] [place] [address] Dr. Jackelyn Celestin IG % 0.9 % Critically high 0.0-0.5 [facility] Comment on above: Performed By: #### 4 [id number] #### [facility] [address] [place] [address] Dr. Jackelyn Celestin LYMPH # 1.9 103/ul Normal 1.2-3.8 [facility] Comment on above: Performed By: #### 4 [id number] #### [facility] [address] [place] [address] Dr. Jackelyn Celestin Lymphocytes/100 WBC (Bld) 17.7 % Critically low 20.5-60.0 [facility] Comment on above: Performed By: #### [id number] #### [facility] [address] [place] [address] Dr. Jackelyn Celestin MANUAL DIFF REQ NO Normal [facility] Comment on above: Performed By: #### [id number] #### [facility] [address] [place] [address] Dr. Jackelyn Celestin MCH (RBC) [Entitic mass] 28.8 pg Normal 26.7-34.0 [facility] Comment on above: Performed By: #### [id number] #### [facility] [address] [place] [address] Dr. Jackelyn Celestin MCHC (RBC) [Mass/Vol] 33.9 g/dL Normal 29.9-35.2 [facility] Comment on above: Performed By: #### [id number] #### [facility] [address] [place] [address] Dr. Jackelyn Celestin MCV (RBC) [Entitic vol] 84.9 fL Normal 81.0-99.0 [facility] Comment on above: Performed By: #### 4 [id number] #### [facility] [address] [place] [address] Dr. Jackelyn Celestin MONO # 0.9 103/ul Critically high 0.3-0.8 [facility] Comment on above: Performed By: #### [id number] #### [facility] [address] [place] [address] Dr. Jackelyn Celestin Monocytes/100 WBC (Bld) 8.4 % Normal 1.7-12.0 [facility] Comment on above: Performed By: #### 4 [id number] #### [facility] [address] [place] [address] Dr. Jackelyn Celestin NEUT # 7.7 103/ul Critically high 1.4-6.5 [facility] Comment on above: Performed By: #### 4 [id number] #### [facility] [address] [place] [address] Dr. Jackelyn Celestin Neutrophils/100 WBC (Bld) 71.2 % Normal 43.0-75.0 [facility] Comment on above: Performed By: #### 4 [id number] #### [facility] [address] [place] [address] Dr. Jackelyn Celestin Platelet mean volume (Bld) [Entitic vol] 10.9 fL Normal 9.5-13.5 [facility] Comment on above: Performed By: #### [id number] #### [facility] [address] [place] [address] Dr. Jackelyn Celestin PLT 170 103/ul Normal 150-450 [facility] Comment on above: Performed By: #### [id number] #### [facility] [address] [place] [address] Dr. Jackelyn Celestin RBC 4.24 106/ul Normal 4.20-5.40 [facility] Comment on above: Performed By: #### 4 [id number] #### [facility] [address] [place] [address] Dr. Jackelyn Celestin WBC 10.8 103/ul Normal 4.0-11.0 [facility] Comment on above: Performed By: #### 4 [id number] #### [facility] [address] [place] [address] Dr. Jackelyn Celestin DRUG SCREEN RAPID (URINE)on 07-29-2022 AMP Negative Normal NEGATIVE [facility] Comment on above: Performed By: #### [id number] #### [facility] [address] [place] [address] Dr. Jackelyn Celestin BAR Negative Normal NEGATIVE [facility] Comment on above: Performed By: #### [id number] #### [facility] [address] [place] [address] Dr. Jackelyn Celestin BUP Negative Normal NEGATIVE [facility] Comment on above: Performed By: #### [id number] #### [facility] [address] [place] [address] Dr. Jackelyn Celestin BZO Negative Normal NEGATIVE [facility] Comment on above: Performed By: #### 4 [id number] #### [facility] [address] [place] [address] Dr. Jackelyn Celestin HOMERO Negative Normal NEGATIVE [facility] Comment on above: Performed By: #### [id number] #### [facility] [address] [place] [address] Dr. Jackelyn Celestin CUT-OFFS SEE BELOW Normal [facility] Comment on above: Result Comment: AMP (Amphetamine): 500ng/mL, BAR (Barbituates): 200 ng/mL, BZO (Benzodiazepines): 150 ng/mL, BUP (Buprenorphine): 10 ng/mL, HOMERO (Cocaine): 150 ng/mL, mAMP (Methamphetamine): 500 ng/mL, MTD (Methadone): 200 ng/mL, OPI (Opiates): 100 ng/mL, OXY (Oxycodone): 100 ng/mL, PCP (Phencyclidine): 25 ng/mL, PPX (Propoxyphene): 300 ng/mL, THC (Cannabinoids): 50 ng/mL, TCA (Trycyclic Antidepressants): 300 ng/mL Performed By: #### [id number] #### [facility] [address] [place] [address] Dr. Jackelyn Celestin DRUG CUT HEADER DRUG CLASS TEST SYST EM CUT-OFF CONCENTRATIONS ARE FOLLOWS: Normal [facility] Comment on above: Performed By: #### [id number] #### [facility] [address] [place] [address] Dr. Jackelyn Celestin mAMP Negative Normal NEGATIVE [facility] Comment on above: Performed By: #### [id number] #### [facility] [address] [place] [address] Dr. Jackelyn Celestin MTD Negative Normal NEGATIVE [facility] Comment on above: Performed By: #### [id number] #### [facility] [address] [place] [address] Dr. Jackelyn Celestin OPI Negative Normal NEGATIVE [facility] Comment on above: Performed By: #### [id number] #### [facility] [address] [place] [address] Dr. Jackelyn Celestin OXY Negative Normal NEGATIVE [facility] Comment on above: Performed By: #### 4 [id number] #### [facility] [address] [place] [address] Dr. Jackelyn Celestin PCP Negative Normal NEGATIVE [facility] Comment on above: Performed By: #### [id number] #### [facility] [address] [place] [address] Dr. Jackelyn Celestin PPX Negative Normal NEGATIVE [facility] Comment on above: Performed By: #### [id number] #### [facility] [address] [place] [address] Dr. Jackelyn Celestin TCA Negative Normal NEGATIVE [facility] Comment on above: Performed By: #### 4 [id number] #### [facility] [address] [place] [address] Dr. Jackelyn Celestin THC Negative Normal NEGATIVE [facility] Comment on above: Performed By: #### [id number] #### [facility] [address] [place] [address] Dr. Jackelyn Celestin TYPE AND SCREENon 07-29-2022 TYPE AND SCREEN Negative Normal [facility] Comment on above: Performed By: #### G TT3P #### [facility] [address] [place] [address] Dr. Jackelyn Celestin US PREG GROWTHon 07-25-2022 [...] TRISTAN HART Date: 2022-07-24 22:37 Normal [facility] GROUP B STREP CULTUREon 06-09 S. agalactiae Ag Ql (Unsp spec) Culture Observations: NEGATIVE FOR GROUP B STREPTOCOCCUS. Normal [facility] Comment on above: Performed By: #### G TT3P #### [facility] [address] [place] [address] Dr. Jackelyn Celestin US PREG GROWTHon 06-06-2022 [...] TRISTAN HART Date: 2022-06-06 15:39 Normal [facility] GTT 3 HR PREGon 05-21-2022 Glucose [Mass/Vol] 91 mg/dL Normal 74-106 [facility] Comment on above: Performed By: #### G TT3P #### [facility] [address] [place] [address] Dr. Jackelyn Celestin Glucose [Mass/Vol] 168 mg/dL Normal [facility] Comment on above: Performed By: #### G TT3P #### [facility] [address] [address] [address] Jackelyn Celestin Glucose [Mass/Vol] 121 mg/dL [facility] Comment on above: Performed By: #### G TT3P #### [facility] [address] [place] [address] Dr. Jackelyn Celestin Glucose [Mass/Vol] 86 mg/dL [facility] Comment on above: Performed By: #### G TT3P #### [facility] [address] [place] [address] Dr. Jackelyn Celestin PAP ACOG PANEL 2: 21 to 29on 05-17-2022 . . Normal [facility] Comment on above: Performed By: #### [id number] #### [facility] [facility] [address] [place] [address] Dr. Jackelyn Celestin DIAGNOSIS: Comment [facility] Comment on above: Result Comment: NEGA TIVE FOR INTRAEPITHELIAL LESION OR MALIGNANCY. Performed By: #### [id number] #### [facility] [address] [place] [address] Dr. Jackelyn Celestin Methodology: Comment [facility] Comment on above: Result Comment: This liquid based ThinPrep(R) pap test was screened with the use of an image guided system. Performed By: #### 4 [id number] #### [facility] [address] [place] [address] Dr. Jackelyn Celestin Note: Comment [facility] Comment on above: Result Comment: The Pap smear is a screening test designed to aid in the detection of premalignant and malignant conditions of the uterine cervix. It is not a diagnostic procedure and should not be used as the sole means of detecting cervical cancer. Both false-positive and false-negative reports do occur. . Performed By: #### [id number] #### [facility] [address] [place] [address] Dr. Jackelyn Celestin Performed by: Comment [facility] Comment on above: Result Comment: Alphonso Walker, Budder (ASCP) Performed By: #### 4 [id number] #### [facility] [address] [place] [address] Dr. Jaceklyn Celestin Reflex Criteria: Comment Normal [facility] Comment on above: Result Comment: The HPV DNA reflex criteria were not met with this specimen result therefore, no HPV testing was performed. . Performed By: #### 4 [id number] #### [facility] [address] [place] [address] Dr. Jackelyn Celestin Specimen adequacy: Comment Normal [facility] Comment on above: Result Comment: Sati sfactory for evaluation. No endocervical component is identified. Performed By: #### 4 [id number] #### [facility] [address] [place] [address] Dr. Jackelyn Celestin Age Gdln ACOG Testing 21-29 Normal [facility] Comment on above: Performed By: #### 4 [id number] #### [facility] [address] [place] [address] Dr. Jackelyn Celestin CHLAMYDIA/GONOCOCCUS ALONDRA ( AB/URINE/PAPon 05-14-2022 Chlamydia trachomatis, ALONDAR Negative Normal Negative [facility] Comment on above: Performed By: #### G TT3P #### [facility] [address] [place] [address] Dr. Jackelyn Celestin Neisseria gonorrhoeae, ALONDRA Negative Normal Negative [facility] Comment on above: Performed By: #### G TT3P #### [facility] [address] [place] [address] Dr. Jackelyn Celestin VAGINITIS/VAGINOSIS DNA PROB Dean 05-13-2022 Thao species Negative Normal Negative [facility] Comment on above: Performed By: #### [id number] #### [facility] [address] [place] [address] Dr. Jackelyn Celestin Gardnerella vaginalis Negative Normal Negative [facility] Comment on above: Performed By: #### [id number] #### [facility] [address] [place] [address] Dr. Jackelyn Celestin Trichomonas vaginalis Negative Normal Negative [facility] Comment on above: Performed By: #### 4 [id number] #### [facility] [address] [place] [address] Dr. Jackelyn Celestin CBC AUTO DIFFon 05-09-2022 BASO # 0.0 103/ul Normal 0.0-0.1 [facility] Comment on above: Performed By: #### C BC #### [facility] [address] [place] [address] Dr. Jackelyn Celestin Basophils/100 WBC (Bld) 0.3 % Normal 0.2-2.0 [facility] Comment on above: Performed By: #### C BC #### [facility] [address] [place] [address] Dr. Jackelyn Celestin EO # 0.1 103/ul Normal 0.0-0.7 [facility] Comment on above: Performed By: #### C BC #### [facility] [address] [place] [address] Dr. Jackelyn Celestin Eosinophils/100 WBC (Bld) 1.2 % Normal 0.9-7.0 [facility] Comment on above: Performed By: #### C BC #### [facility] [address] [place] [address] Dr. Jackelyn Celestin Erythrocyte distribution width (RBC) [Ratio] 11.9 % Normal 11.0-15.0 [facility] Comment on above: Performed By: #### C BC #### [facility] [address] [place] [address] Dr. Jackelyn Celestin Hematocrit (Bld) [Volume fraction] 33.7 % Critically low 36.0-48.0 [facility] Comment on above: Performed By: #### C BC #### [facility] [address] [place] [address] Dr. Jackelyn Celestin Hemoglobin (Bld) [Mass/Vol] 12.0 g/dL Normal 12.0-16.0 [facility] Comment on above: Performed By: #### C BC #### [facility] [address] [place] [address] Dr. Jackelyn Celestin IG # 0.07 10e3/ul Critically high 0.00-0.03 [facility] Comment on above: Performed By: #### C BC #### [facility] [address] [place] [address] Dr. Jackelyn Celestin IG % 0.6 % Critically high 0.0-0.5 [facility] Comment on above: Performed By: #### C BC #### [facility] [address] [place] [address] Dr. Jackelyn Celestin LYMPH # 1.3 103/ul Normal 1.2-3.8 [facility] Comment on above: Performed By: #### C BC #### [facility] [address] [place] [address] Dr. Jackelyn Celestin Lymphocytes/100 WBC (Bld) 11.5 % Critically low 20.5-60.0 [facility] Comment on above: Performed By: #### C BC #### [facility] [address] [place] [address] Dr. Jackelyn Celestin MANUAL DIFF REQ NO Normal [facility] Comment on above: Performed By: #### C BC #### [facility] [address] [place] [address] Dr. Jackelyn Celestin MCH (RBC) [Entitic mass] 31.0 pg Normal 26.7-34.0 [facility] Comment on above: Performed By: #### C BC #### [facility] [address] [place] [address] Dr. Jackelyn Celestin MCHC (RBC) [Mass/Vol] 35.6 g/dL Critically high 29.9-35.2 [facility] Comment on above: Performed By: #### C BC #### [facility] [address] [place] [address] Dr. Jackelyn Celestin MCV (RBC) [Entitic vol] 87.1 fL Normal 81.0-99.0 [facility] Comment on above: Performed By: #### C BC #### [facility] [address] [place] [address] Dr. Jackelyn Celestin MONO # 0.5 103/ul Normal 0.3-0.8 [facility] Comment on above: Performed By: #### C BC #### [facility] [address] [place] [address] Dr. Jackelyn Celestin Monocytes/100 WBC (Bld) 4.8 % Normal 1.7-12.0 [facility] Comment on above: Performed By: #### C BC #### [facility] [address] [place] [address] Dr. Jackelyn Celestin NEUT # 8.9 103/ul Critically high 1.4-6.5 [facility] Comment on above: Performed By: #### C BC #### [facility] [address] [place] [address] Dr. Jackelyn Celestin Neutrophils/100 WBC (Bld) 81.6 % Critically high 43.0-75.0 [facility] Comment on above: Performed By: #### C BC #### [facility] [address] [place] [address] Dr. Jackelyn Celestin Platelet mean volume (Bld) [Entitic vol] 11.3 fL Normal 9.5-13.5 [facility] Comment on above: Performed By: #### C BC #### [facility] [address] [place] [address] Dr. Jackelyn Celestin PLT 171 103/ul Normal 150-450 [facility] Comment on above: Performed By: #### C BC #### [facility] [address] [place] [address] Dr. Jackelyn Celestin RBC 3.87 106/ul Critically low 4.20-5.40 [facility] Comment on above: Performed By: #### C BC #### [facility] [address] [place] [address] Dr. Jackelyn Celestin WBC 10.9 103/ul Normal 4.0-11.0 [facility] Comment on above: Performed By: #### C BC #### [facility] [address] [place] [address] Dr. Jackelyn Celestin GLUCOSE - 1HRon 05-09-2022 Glucose [Mass/Vol] 142 mg/dL Critically high 74-106 [facility] Comment on above: Performed By: #### 4 [id number] #### [facility] [address] [place] [address] Dr. Jackelyn Celestin US PREG BIOPHY W [...] by: TRISTAN HART Date: 2022-05-09 10:35 Normal [facility] US PREG PLACENTAon US PREG PLACENTA EXAMINATION: US PREG PLACENTA HISTORY: Falls ; mild cramping after falling COMPARISON: Ultrasound anatomy 03/17/2022 FINDINGS: PLACENTA: Posterior without previa, subchorionic hematoma, or abruption. CERVIX LENGTH: Not evaluated. HEART RATE: 158 bpm OTHER: None. IMPRESSION: 1. Unremarkable posterior placenta. No suspicious findings. Electronically authenticated by: TRISTAN HART Date: 2022-05-09 10:29 Normal [facility] US PREG ANATOMY SINGLEon US [...] TRISTAN HART Date: 2022-03-17 16:29 Normal [facility] HEP B SURFACE ANTIGEN SCREEN on 02-15-2022 HBsAg Screen Negative Normal Negative [facility] Comment on above: Performed By: #### [id number] #### [facility] [address] [address] [address] Jackelyn Celestin HEPATITIS C VIRUS AB W/ REFL EX QUANTon 02-15-2022 HCV AB <0.1 Normal 0.0-0.9 [facility] Comment on above: Performed By: #### H CVPCRR #### [facility] [address] [place] [address] Dr. Jackelyn Celestin Interpretation: Comment Normal [facility] Comment on above: Result Comment: Nega tive Not infected with HCV, unless recent infection is suspected or other evidence exists to indicate HCV infection. Performed By: #### H CVPCRR #### [facility] [address] [address] [address] Jackelyn Celestin HIV 1 AND 2 WITH REFLEXon HIV Screen 4th Generation wRfx Non-Reactive Normal Non Reactive [facility] Comment on above: Result Comment: HIV Negative HIV-1/HIV-2 antibodies and HIV-1 p24 antigen were NOT detected. There is no laboratory evidence of HIV infection. Performed By: #### H IV12 #### [facility] [address] [place] [address] Dr. Jackelyn Celestin RPR QUANTon 02-15-2022 Rapid Plasma Reagin, Quant Non-Reactive Normal NonRea<1:1 [facility] Comment on above: Result Comment: Plea se Note: This test does not meet current guidelines for screening and diagnosis of syphilis. This test is intended for following treatment response in patients being treated for syphilis infection. To screen for syphilis infection, a reflex cascade that includes both RPR and a treponema-specific assay should be utilized, such as Treponema pallidum (Syphilis) Screening Accident (313959) or Rapid Plasma Reagin (RPR) Test With Reflex to Quantitative RPR and Confirmatory Treponema pallidum Antibodies (610049). Performed By: #### R PRQ #### [facility] [address] [place] [address] Dr. Jackelyn Celestin RUBELLA AB IGGon 02-15-2022 Rubella Antibodies, IgG 1.97 index Normal Immune >0.99 [facility] Comment on above: Result Comment: Non- immune <0.90 Equivocal 0.90 - 0.99 Immune >0.99 Performed By: #### R UBIGG #### [facility] [address] [place] [address] Dr. Jackelyn Celestin CBC AUTO DIFFon 02-12-2022 BASO # 0.0 103/ul Normal 0.0-0.1 [facility] Comment on above: Performed By: #### C BC #### [facility] [address] [place] [address] Dr. Jackelyn Celestin Basophils/100 WBC (Bld) 0.4 % Normal 0.2-2.0 [facility] Comment on above: Performed By: #### C BC #### [facility] [address] [place] [address] Dr. Jackelyn Celestin EO # 0.2 103/ul Normal 0.0-0.7 [facility] Comment on above: Performed By: #### C BC #### [facility] [address] [place] [address] Dr. Jackelyn Celestin Eosinophils/100 WBC (Bld) 2.0 % Normal 0.9-7.0 [facility] Comment on above: Performed By: #### C BC #### [facility] [address] [place] [address] Dr. Jackelyn Celestin Erythrocyte distribution width (RBC) [Ratio] 12.8 % Normal 11.0-15.0 [facility] Comment on above: Performed By: #### C BC #### [facility] [address] [place] [address] Dr. Jackelyn Celestin Hematocrit (Bld) [Volume fraction] 40.7 % Normal 36.0-48.0 [facility] Comment on above: Performed By: #### C BC #### [facility] [address] [place] [address] Dr. Jackelyn Celestin Hemoglobin (Bld) [Mass/Vol] 14.4 g/dL Normal 12.0-16.0 [facility] Comment on above: Performed By: #### C BC #### [facility] [address] [place] [address] Dr. Jackelyn Celestin IG # 0.05 10e3/ul Critically high 0.00-0.03 [facility] Comment on above: Performed By: #### C BC #### [facility] [address] [place] [address] Dr. Jackelyn Celestin IG % 0.4 % Normal 0.0-0.5 [facility] Comment on above: Performed By: #### C BC #### [facility] [address] [place] [address] Dr. Jackelyn Celestin LYMPH # 1.7 103/ul Normal 1.2-3.8 [facility] Comment on above: Performed By: #### C BC #### [facility] [address] [place] [address] Dr. Jackelyn Celestin Lymphocytes/100 WBC (Bld) 15.1 % Critically low 20.5-60.0 [facility] Comment on above: Performed By: #### C BC #### [facility] [address] [place] [address] Dr. Jackelyn Celestin MANUAL DIFF REQ NO Normal [facility] Comment on above: Performed By: #### C BC #### [facility] [address] [place] [address] Dr. Jackelyn Celestin MCH (RBC) [Entitic mass] 31.2 pg Normal 26.7-34.0 [facility] Comment on above: Performed By: #### C BC #### [facility] [address] [place] [address] Dr. Jackelyn Celestin MCHC (RBC) [Mass/Vol] 35.4 g/dL Critically high 29.9-35.2 [facility] Comment on above: Performed By: #### C BC #### [facility] [address] [place] [address] Dr. Jackelyn Celestin MCV (RBC) [Entitic vol] 88.1 fL Normal 81.0-99.0 [facility] Comment on above: Performed By: #### C BC #### [facility] [address] [place] [address] Dr. Jackelyn Celestin MONO # 0.4 103/ul Normal 0.3-0.8 [facility] Comment on above: Performed By: #### C BC #### [facility] [address] [place] [address] Dr. Jackelyn Celestin Monocytes/100 WBC (Bld) 3.3 % Normal 1.7-12.0 [facility] Comment on above: Performed By: #### C BC #### [facility] [address] [place] [address] Dr. Jackelyn Celestin NEUT # 8.8 103/ul Critically high 1.4-6.5 [facility] Comment on above: Performed By: #### C BC #### [facility] [address] [place] [address] Dr. Jackelyn Celestin Neutrophils/100 WBC (Bld) 78.8 % Critically high 43.0-75.0 [facility] Comment on above: Performed By: #### C BC #### [facility] [address] [place] [address] Dr. Jackelyn Celestin Platelet mean volume (Bld) [Entitic vol] 11.6 fL Normal 9.5-13.5 [facility] Comment on above: Performed By: #### C BC #### [facility] [address] [place] [address] Dr. Jackelyn Celestin PLT 203 103/ul Normal 150-450 [facility] Comment on above: Performed By: #### C BC #### [facility] [address] [place] [address] Dr. Jackelyn Celestin RBC 4.62 106/ul Normal 4.20-5.40 [facility] Comment on above: Performed By: #### C BC #### [facility] [address] [place] [address] Dr. Jackelyn Celestin WBC 11.2 103/ul Critically high 4.0-11.0 [facility] Comment on above: Performed By: #### C BC #### [facility] [address] [place] [address] Dr. Jackelyn Celestin CULTURE URINEon 02-12-2022 CULTURE URINE Culture Observations : NO GROWTH. Normal [facility] Comment on above: Performed By: #### U RCX #### [facility] [address] [place] [address] Dr. Jackelyn Celestin GLYCOHEMOGLOBIN A1Con 2021 ADA RECOMMENDATION SEE BELOW Normal [facility] Comment on above: Result Comment: ADA RECOMMENDED LIMIT 4.0 - 6.0 ADA THERAPEUTIC TARGET < 7.0 ACTION SUGGESTED > 7.0 Performed By: #### 4 [id number] #### [facility] [address] [place] [address] Dr. Jackelyn Celestin Glucose [Mass/Vol] 94 mg/dL Normal [facility] Comment on above: Performed By: #### 4 [id number] #### [facility] [address] [place] [address] Dr. Jackelyn Celestin HbA1c (Bld) [Mass fraction] 4.9 % Normal 4.5-6.2 [facility] Comment on above: Performed By: #### 4 [id number] #### [facility] [address] [place] [address] Dr. Jackelyn Celestin TYPE AND SCREENon 02-12-2022 TYPE AND SCREEN Negative Normal [facility] Comment on above: Performed By: #### T NS #### [facility] [address] [place] [address] Dr. Jackelyn Celestin US PREG TVon 01-21-2022 [...] by: DONALD AGUILAR Date: 2022-01-21 16:41 Normal [facility] Coding Summary.on 12-12-2019 Coding Summary. CODING DATE: 020 FINAL [facility] STATUS: Home (Routine DC) PAYOR: Self [...] CphT Date Saved: 12/12/2019 10:59 am Normal [facility] Family Medicine Office/Clini c Noteon 11-21-2019 [...] day(s), # 20 tab(s), Refills(s) 0, Pharmacy: [facility], 159, cm, 11/21/19 19:13:00 EDT, Height/Length Dosing, 96, kg, 11/21/19 19:13:00 EDT, Weight Dosing Follow-up No qualifying data available Patient Education Body Mass Index, BMI DASH Diet MyPlate from [employer] Obesity Otitis Media, Adult Problem List/Past Medical [...] cancer: Grandparent. Hypertension: Grandparent. Stroke: Grandparent. Normal [facility] Comment on above: Result Comment: Elec [...] Document Reviewed: 01/04/2006 ExitCare? Patient Information ?2014 [employer]. DASH Diet The DASH diet stands for [...] beef, chicken breast, turkey breast. All fish. Mood[employer], bake, or broil your meat. Nothing should [...] Document Reviewed: 03/15/2012 ExitCare? Patient Information ?2013 [employer]. [employer], [employer] The amount you need to eat from [...] Document Reviewed: 06/16/2008 ExitCare? Patient Information ?2013 [employer] [facility]. Family Medicine Obesity Obesity is defined [...] such as an underactive thyroid (hypothyroidism ), Greenwood's syndrome, and polycystic ovarian syndrome. ? Certain [...] Document Reviewed: 05/02/2012 ExitCare? Patient Information ?2013 [employer]. Otitis Media, Adult A middle ear infection [...] the first few days. ? Only take twnw-ews-abpzmmy or prescription medicines for pain, discomfort, or [...] Document Reviewed: 10/31/2008 ExitCare? Patient Information ?2013 [employer]. Normal [facility] SARS-CoV-2, NAAon 11-20-2019 SARS CORONAVIRUS 2 RNA:PRTHR:PT:RESPIRATO RY:ORD:PROBE.AMP.TAR Not Detected Not Detected [facility] Comment on above: Result Comment: This test was developed and its performance characteristics determined by [employer]. This test has not been FDA cleared [...] detected) result in this assay. Performed at: [facility] [address] [facility] [place] [id number] MD Malaika Velez Performed By: #### S ARS-CoV-2, ALONDRA #### [facility] [address] [place] [address] [facility] Medicine Video Visit - Telehealthon 11-16-2019 [...] interactive video communications from my office using [facility] due to the restrictions of the COVID-19 pandemic. No physical exam was conducted other than those areas of the body visible to telecommunications with the patient located at [address] [phone], with no one else in attendance. If [...] cancer: Grandparent. Hypertension: Grandparent. Stroke: Grandparent. Normal [facility] Comment on above: Result Comment: Elec tronically Signed By: Abbey ESTRADA CNP\.ynes\Date and Time Signed: 11/16/19 14:27 EDT URINE CULTUREon 07-10-2017 Urine culture, bacteria SPECIMEN DESCRIPTION URINE CLEAN CATCHUA DIPSTICK NITRITE NEGATIVE * Result Note: LEUKOCYTE NEGATIVE *CULTURE ESCHERICHIA COLI * Result Note: 50,000 C/C/ML * * Result Note: Testing performed at [facility], [place], [place] [address] *REPORT STATUS 07/10/2017 * Result Note: FINAL * O RGANISM ESCHERICHIA COLI * Result Note: ESCHERICHIA COLI *METHOD MICAMPICILLIN <=2 SUSCEPTIBLEAMPICILLIN/SULBA CTAM <=2 SUSCEPTIBLECEFTRIAXONE <=1 SUSCEPTIBLECEFAZOLIN <=4 SUSCEPTIBLEIMIPENEM <=0.25 SUSCEPTIBLEGENTAMICIN <=1 SUSCEPTIBLETRIMETH-SULFA <=20 SUSCEPTIBLEAMOXICILLIN/CLAV ULANIC A <=2 SUSCEPTIBLENITROFURANTOIN 32 SUSCEPTIBLEPIPERACILLIN/SADA OBACTAM <=4 SUSCEPTIBLELEVOFLOXACIN <=0.12 SUSCEPTIBLEESBL NEGATIVECEFTAZIDIME <=1 SUSCEPTIBLE Normal [facility] Comment on above: Performed By: #### A URNC ####Testing performed at [address] [id number] performed at [address] [address] BHCG,QUANTITATIVEon 07-08-19 18 BHCG,QUANTITATIVE 133.56 MIU/ML Normal [facility] Comment on above: Result Comment: [facility] INTERPRETIVE RANGES: NON FEMALE [...] #### A CBC, BHCG2 ####Testing performed at [address] [address] CBCon 07-07-2017 ABSOLUTE BAS 0.1 X10 Normal [facility] Comment on above: Performed By: #### A CBC, BHCG2 ####Testing performed at [address] [place] [address] ABSOLUTE EOS 0.20 X10 Normal [facility] Comment on above: Performed By: #### A CBC, BHCG2 ####Testing performed at [address] [place] [address] Basophils/100 WBC Auto (Bld) 0.6 % Normal 0.0-2.0 [facility] Comment on above: Performed By: #### A CBC, BHCG2 ####Testing performed at [address] [place] [address] DTYPE AUTO DIFF Normal [facility] Comment on above: Performed By: #### A CBC, BHCG2 ####Testing performed at [address] [place] [address] Eosinophils/100 leukocytes 2.0 % Normal 0.0-11.0 [facility] Comment on above: Performed By: #### A CBC, BHCG2 ####Testing performed at [address] [place] [address] Lymphocytes 2.00 X10 Normal [facility] Comment on above: Performed By: #### A CBC, CG2 ####Testing performed at [address] [place] [address] Lymphocytes/100 leukocytes 23.0 % Normal 20.0-55.0 [facility] Comment on above: Performed By: #### A CBC, BHCG2 ####Testing performed at [address] [place] [address] Monocytes 0.6 X10 Normal [facility] Comment on above: Performed By: #### A CBC, BHCG2 ####Testing performed at [address] [address] Monocytes/100 leukocytes 7.1 % Normal 0.0-10.0 [facility] Comment on above: Performed By: #### A CBC, BHCG2 ####Testing performed at [address] [place] [address] Neutrophils 5.9 x10 Normal 1.0-7.0 [facility] Comment on above: Performed By: #### A CBC, BHCG2 ####Testing performed at [address] [address] Neutrophils/100 leukocytes 67.3 % Normal 37.0-75.0 [facility] Comment on above: Performed By: #### A CBC, BHCG2 ####Testing performed at [address] [address] Erythrocyte distribution width Auto Ratio (RBC) 12.1 % Normal 11.5-14.5 [facility] Comment on above: Performed By: #### A CBC, BHCG2 ####Testing performed at [address] [address] Erythrocytes (RBC) 4.72 /cmm Normal 4.0-5.4 [facility] Comment on above: Performed By: #### A CBC BHCG2 ####Testing performed at [address] [address] Hematocrit (HCT) 43.2 % Normal 36.0-48.0 [facility] Comment on above: Performed By: #### A CBC, BHCG2 ####Testing performed at [address] [address] Hemoglobin mass conc (Bld) 15.1 g/dL Normal 12.0-16.0 [facility] Comment on above: Performed By: #### A CBC, BHCG2 ####Testing performed at [address] [address] MCH 32.0 pg Normal 26.0-35.0 [facility] Comment on above: Performed By: #### A CBC, BHCG2 ####Testing performed at [address] [address] MCHC mass conc (RBC) 35.0 g/dL Normal 27.0-37.0 [facility] Comment on above: Performed By: #### A CBC, BHCG2 ####Testing performed at [address] [address] MCV 91.5 fL Normal 80.0-100.0 [facility] Comment on above: Performed By: #### A CBC, BHCG2 ####Testing performed at [address] [place] [address] Platelet mean volume (PMV) 9.2 fL Normal 7.4-11.0 [facility] Comment on above: Performed By: #### A CBCALEXANDRACG2 ####Testing performed at [address] [address] Platelets 235 /cmm Normal 130.0-400. 0 [facility] Comment on above: Performed By: #### A CBCALEXANDRACG2 ####Testing performed at [address] [address] WBC (Leukocytes) 8.8 /cmm Normal 3.6-11.0 [facility] Comment on above: Performed By: #### A CBCDAVIDG2 ####Testing performed at [address] [address] ED NOTEon 07-07-2017 [facility] NOTES Normal [facility] ED PROVIDERon 07-07-2017 [facility] NOTES Normal [facility] URINE MACROSCOPICon 07-08-19 18 Bilirubin Ql (U) Negative Normal NEGATIVE [facility] Comment on above: Performed By: #### U MAC, UMIC ####Testing performed at [address] [address] URINE HEMOGLOBIN LARGE Abnormal NEGATIVE [facility] Comment on above: Performed By: #### U MAC, UMIC ####Testing performed at [address] [address] URINE KETONE Negative Normal NEGATIVE [facility] Comment on above: Performed By: #### U MAC, UMIC ####Testing performed at [address] [address] URINE LEUKOTEST Negative Normal NEGATIVE [facility] Comment on above: Performed By: #### U MAC, UMIC ####Testing performed at [address] [address] URINE NITRATES Negative Normal NEGATIVE [facility] Comment on above: Performed By: #### U MAC, UMIC ####Testing performed at [address] [address] URINE SPEC GRAVITY 1.025 Normal 1.010-1.0 2 5 [facility] Comment on above: Performed By: #### U MAC, UMIC ####Testing performed at [address] [place] [address] URINE TOTAL PROTEIN Negative Normal NEGATIVE [facility] Comment on above: Performed By: #### U MAC, UMIC ####Testing performed at [address] [place] [address] Urine, clarity CLEAR Normal CLEAR [facility] Comment on above: Performed By: #### U MAC, UMIC ####Testing performed at [address] [place] [address] Urine, color YELLOW Normal YELLOW [facility] Comment on above: Performed By: #### U MAC, UMIC ####Testing performed at [address] [place] [address] Urine, glucose presence Negative Normal NEGATIVE [facility] Comment on above: Performed By: #### U MAC, UMIC ####Testing performed at [address] [place] [address] Urine, pH 7.0 [pH] Normal 5.0-7.0 [facility] Comment on above: Performed By: #### U MAC, UMIC ####Testing performed at [address] [place] [address] Urine, urobilinogen 1.0 mg/dl Normal 0.2-1.0 [facility] Comment on above: Performed By: #### U MAC, UMIC ####Testing performed at [address] [address] URINE MICROSCOPICon 03-30-20 18 CRYSTAL OCCASIONAL Abnormal NONE [facility] Comment on above: Result Comment: CHRIS PHOUS PHOSPHATES Performed By: #### U MAC, UMIC ####Testing performed at [address] [address] URINE COMMENT REFLEX CULTURE PER ESTABLISHED CRITERIA. Normal [facility] Comment on above: Performed By: #### U MAC, UMIC ####Testing performed at [address] [address] URINE WBC'S 1 TO 5 Normal NEGATIVE [facility] Comment on above: Performed By: #### U MAC, UMIC ####Testing performed at [address] [address] Urine, bacteria in sediment 1+ Abnormal NEGATIVE [facility] Comment on above: Performed By: #### U MAC, UMIC ####Testing performed at [address] [place] [address] Urine, casts in sediment NONE Normal NONE [facility] Comment on above: Performed By: #### U MAC, UMIC ####Testing performed at [address] [place] [address] Urine, epithelial cells in sediment 1 TO 5 Normal [facility] Comment on above: Performed By: #### U MAC, UMIC ####Testing performed at [address] [place] [address] Urine, erythrocytes 1 TO 5 Normal NEGATIVE [facility] Comment on above: Performed By: #### U MAC, UMIC ####Testing performed at [address] [place] [address] Urine, mucus presence in sediment Negative Normal NEGATIVE [facility] Comment on above: Performed By: #### U MAC, UMIC ####Testing performed at [address] [place] [address] BhCG Quanton 07-05-2017 HCG.beta subunit Qn 238.0 mIU/m Normal [facility] Comment on above: Result Comment: FEMA LE (NON-) & MALE <3 BORDERLINE 3 - 5 SUGGEST REPEAT TESTING FEMALE () 1 D - 1 WK 5 - 50 1 - 2 WK 50 - 500 2 - 3 WK 100 - 5000 3 - 4 WK 500 - 73604 4 - 5 WK 1000 - 53747 5 - 6 WK [address] - 833002 6 - 8 WK [address] - 026517 2 - 3 [place] [address] - 636653 Performed By: #### 2 [id number] ####JIMMIE LryJkfz0906 [place] [address] Auto Diffon 07-04-2017 Basophils Auto #/vol (Bld) 0.1 E3/mcL Normal 0.0-0.2 [facility] Comment on above: Order Comment: Order Added by Discern Expert. Performed By: #### 2 [id number] ####JIMMIE UmvLdku3319 [place] [address] Basophils/100 WBC Auto (Bld) 0.6 % Normal 0.0-2.0 [facility] Comment on above: Order Comment: Order Added by Discern Expert. Performed By: #### 2 [id number] ####JIMMIE DanVgnXbph4546 [place] [address] Eos Absolute 0.3 E3/mcL Normal 0.0-0.7 [facility] Comment on above: Order Comment: Order Added by Discern Expert. Performed By: #### 2 533351 ####JIMMIE DanVugNsvb5408 [place] [address] Eosinophils/100 leukocytes 2.5 % Normal 0.0-11.0 [facility] Comment on above: Order Comment: Order Added by Discern Expert. Performed By: #### 2 962393 ####JIMMIE DanCiuZyal9007 [place] [address] Lymphocytes 2.3 E3/mcL Normal 1.2-3.4 [facility] Comment on above: Order Comment: Order Added by Discern Expert. Performed By: #### 2 976316 ####JIMMIE DanLdtJbve7562 [place] [address] Lymphocytes/100 leukocytes 22.2 % Normal 20.0-55.0 [facility] Comment on above: Order Comment: Order Added by Discern Expert. Performed By: #### 2 469004 ####JIMMIE DanHunWgzs7253 [place] [address] Wilbarger Absolute 0.8 E3/mcL High 0.0-0.7 [facility] Comment on above: Order Comment: Order Added by Discern Expert. Performed By: #### 2 664194 ####JIMMIE DanFreOxye7105 [place] [address] Monocytes/100 leukocytes 7.6 % Normal 0.0-10.0 [facility] Comment on above: Order Comment: Order Added by Discern Expert. Performed By: #### 2 545864 ####JIMMIE DanKghKuqw5498 [place] [address] Neutro Absolute 6.9 E3/mcL High 1.4-6.5 [facility] Comment on above: Order Comment: Order Added by Discern Expert. Performed By: #### 2 966322 ####JIMMIE DanNccOxgu2902 [place] [address] Neutro Auto 67.1 % Normal 37.0-75.0 [facility] Comment on above: Order Comment: Order Added by Discern Expert. Performed By: #### 2 065881 ####JIMMIE Ozunao1025 [place] [address] BMPon 07-04-2017 BUN/Creatinine Ratio 21.7 ratio Normal 5.4-30.0 [facility] Comment on above: Performed By: #### 2 123033 ####JIMMIE AwsPclu6475 [place] [address] Creatinine 0.6 mg/dL Normal 0.6-1.3 [facility] Comment on above: Performed By: #### 2 401519 ####JIMMIE UkzNlia7411 [place] [address] Urea nitrogen 13 mg/dL Normal 7-18 [facility] Comment on above: Performed By: #### 2 103357 ####JIMMIE SrcCbzx6360 [place] [address] Calcium 8.4 mg/dL Normal 8.4-10.2 [facility] Comment on above: Performed By: #### 2 570717 ####JIMMIE TukMxix9591 [place] [address] Chloride 100 mmol/L Normal 98-107 [facility] Comment on above: Performed By: #### 2 978915 ####JIMMIE XqnEptl5072 [place] [address] CO2 27.7 mmol/L Normal 24.0-30.0 [facility] Comment on above: Performed By: #### 2 505801 ####JIMMIEJonathan DanWaxOcos6539 [place] [address] Glucose mass conc 98 mg/dL Normal 70-99 [facility] Comment on above: Performed By: #### 2 716924 ####JIMMIEJonathan DanRnhIbca9249 [place] [address] Potassium molar conc 3.4 mmol/L Low 3.5-5.1 [facility] Comment on above: Performed By: #### 2 849118 ####JIMMIEJonathan GreshamIppQrnj2730 [place] [address] Sodium 133 mmol/L Low 136-145 [facility] Comment on above: Performed By: #### 2 229319 ####JIMMIE PaeIayc8147 [place] [address] BhCG Quanton 07-04-2017 HCG.beta subunit Qn 190.8 mIU/m Normal [facility] Comment on above: Result Comment: FEMA LE (NON-) & MALE <3 BORDERLINE 3 - 5 SUGGEST REPEAT TESTING FEMALE () 1 D - 1 WK 5 - 50 1 - 2 WK 50 - 500 2 - 3 WK 100 - 5000 3 - 4 WK 500 - [address]289 4 - 5 WK 1000 - 74965 5 - 6 WK [address] - 894750 6 - 8 WK [address] - 435052 2 - 3 [place] [address] - 77[address] Performed By: #### 2 539096 ####JIMMIEJonathan DanYmiVbvu0648 [place] [address] CBC w/ Auto Diffon 8 Erythrocyte distribution width Auto Ratio (RBC) 11.6 % Normal 11.5-14.5 [facility] Comment on above: Performed By: #### 2 786052 ####JIMMIEJonathan DanQkxTmsg8085 [place] [address] Erythrocytes (RBC) 4.43 E6/mcL Normal 3.90-5.40 [facility] Comment on above: Performed By: #### 2 481717 ####JIMMIEJonathan DanWokBxwo3993 [place] [address] Hematocrit (HCT) 40.1 % Normal 36.0-48.0 [facility] Comment on above: Performed By: #### 2 153241 ####JIMMIE DanBcdLsqk2587 [place] [address] Hemoglobin mass conc (Bld) 14.1 g/dL Normal 12.0-16.0 [facility] Comment on above: Performed By: #### 2 930136 ####JIMMIE DanAyyWmtt1288 [place] [address] MCH 31.7 pg High 27.0-31.0 [facility] Comment on above: Performed By: #### 2 099498 ####JIMMIE Ozunao1025 [place] [address] MCHC mass conc (RBC) 35.1 g/dL Normal 33.0-37.0 [facility] Comment on above: Performed By: #### 2 418297 ####JIMMIE Ozunao1025 [place] [address] MCV 90.4 fL Normal 78.0-100.0 [facility] Comment on above: Performed By: #### 2 869190 ####JIMMIE Ozunao1025 [place] [address] Platelet mean volume (PMV) 8.4 fL Normal 7.4-11.0 [facility] Comment on above: Performed By: #### 2 942153 ####JIMMIE Ozunao1025 [place] [address] Platelets 232 E3/mcL Normal 130-400 [facility] Comment on above: Performed By: #### 2 168812 ####JIMMIE Ozunao1025 [place] [address] WBC (Leukocytes) 10.3 E3/mcL Normal 3.6-11.0 [facility] Comment on above: Performed By: #### 2 449652 ####JIMIME Ozunao1025 [place] [address] Hep Func Panelon 07-04-2017 Alanine aminotransferase (ALT) 15 Int._Unit/L Normal 10-40 [facility] Comment on above: Performed By: #### 2 458541 ####JIMMIE Gresham1025 [place] [address] Albumin 3.8 g/dL Normal 3.2-5.0 [facility] Comment on above: Performed By: #### 2 617418 ####JIMMIE DanGbyDlsh2846 [place] [address] Albumin/Globulin Ratio 1.4 {ratio} Normal 1.1-1.9 [facility] Comment on above: Performed By: #### 2 605728 ####JIMMIE DanWarJnzq6214 [place] [address] Alk Phos 36 Int._Unit/L Low 42-121 [facility] Comment on above: Performed By: #### 2 755465 ####JIMMIE WpxDmfm4764 [place] [address] Aspartate aminotransferase (AST) 18 Int._Unit/L Normal 10-42 [facility] Comment on above: Performed By: #### 2 143430 ####JIMMIE Gresham1025 [place] [address] Bili Direct <.10 Normal .00-.20 [facility] Comment on above: Performed By: #### 2 023284 ####JIMMIE YztGgea5038 [place] [address] Bili Indirect >0.7 Normal [facility] Comment on above: Result Comment: No e stablished ranges available for the Indirect Biliruben. Performed By: #### 2 047552 ####JIMMIE MzlSxon7649 [place] [address] Bili Total 0.8 mg/dL Normal 0.2-1.0 [facility] Comment on above: Performed By: #### 2 171598 ####JIMMIE UggLozr0091 [place] [address] Globulin 2.8 g/dL Normal 2.0-4.0 [facility] Comment on above: Performed By: #### 2 993756 ####JIMMIE XgjMudy1784 [place] [address] Protein 6.6 g/dL Normal 6.4-8.3 [facility] Comment on above: Performed By: #### 2 905515 ####JIMMIE BwbFhqt9591 [place] [address] Lipase Levelon 07-04-2017 Lipase Lvl 19 U/L Normal 8-57 [facility] Comment on above: Performed By: #### 2 190771 ####JIMMIE WsbEsat3896 [place] [address] U BhCG Qlton 07-04-2017 HCG.beta subunit Qn Positive Normal Neg [facility] Comment on above: Performed By: #### 2 192475 ####JIMMIE Urinalysis Manual Punchgwjjh5671 [place] [address] UA Completeon 07-04-2017 UA Blood 3+ Normal Negative [facility] Comment on above: Performed By: #### 8 [id number] ####JIMMIE Urinalysis Automated Fcibuvywne3441 [place] [address] UA Bacteria Trace Abnormal None [facility] Comment on above: Performed By: #### 8 [id number] ####JIMMIE Urinalysis Automated Drtkxttohu0382 [place] [address] UA Clarity SltCloudy Abnormal Clear [facility] Comment on above: Performed By: #### 8 6382391 ####JIMMIE Urinalysis Automated Eoerrtyrar8218 [place] [id number] UA Leuk Est Trace Normal Negative [facility] Comment on above: Performed By: #### 8 [id number] ####JIMMIE Urinalysis Automated [address] [place] [address] UA Mucous Occasional Abnormal Trace [facility] Comment on above: Performed By: #### 8 [id number] ####JIMMIE Urinalysis Automated Axeeskvfem3804 [place] [address]10405 UA Nitrite Negative Normal Negative [facility] Comment on above: Performed By: #### 8 [id number] ####JIMMIE Urinalysis Automated [address] [place] [address] UA pH 5.0 Normal 4.6-8.0 [facility] Comment on above: Performed By: #### 8 [id number] ####JIMMIE Urinalysis Automated [address]unf[address] [place] [address] UA Protein Negative Normal Negative [facility] Comment on above: Performed By: #### 8 [id number] ####JIMMIE Urinalysis Automated Cfnfgiigwg8928 [place] [address] UA Spec Grav 1.027 Normal 1.003-1.03 0 [facility] Comment on above: Performed By: #### 8 [id number] ####JIMMIE Urinalysis Automated [address] [place] [address] UA Squam Epithelial 0-5 Normal 0-5 [facility] Comment on above: Performed By: #### 8 [id number] ####JIMMIE Urinalysis Automated Twkmncuziv4127 [place] [address]10[address] UA Urobilinogen Negative Normal [facility] Comment on above: Performed By: #### 8 [id number] ####JIMMIE Urinalysis Automated Pfejemjqjn8431 [place] [address] UA WBC 10-20 Abnormal 0-5 [facility] Comment on above: Performed By: #### 8 [id number] ####JIMMIE Urinalysis Automated Fcbejmdwnf8582 [place] [address] Urine, color Yellow Normal Yellow [facility] Comment on above: Performed By: #### 8 [id number] ####JIMMIE Urinalysis Automated Uqhzjemhqj7567 [place] [address] Urine, erythrocytes 5-10 Abnormal 0-3 [facility] Comment on above: Performed By: #### 8 [id number] ####JIMMIE Urinalysis Automated Gtwpirsdey6457 [place] [address] Urine, glucose Negative Normal Negative [facility] Comment on above: Performed By: #### 8 [id number] ####JIMMIE Urinalysis Automated Rscvdrxowf1250 [place] [address] Urine, ketones presence Negative Normal Negative [facility] Comment on above: Performed By: #### 8 [id number] ####JIMMIE Urinalysis Automated Ymxniddkkq1236 [place] [address] Urine, urobilinogen Negative Normal Negative [facility] Comment on above: Performed By: #### 8 [id number] ####JIMMIE Urinalysis Automated Mtrotozmvq4914 [place] [address] eGFRon 07-04-2017 eGFR (non-black) mL/min/{1.73_m2} Normal [facility] Comment on above: Order Comment: Order added by Discern Expert. Performed By: #### 1 [id number] ####JIMMIE TtjLkvb7043 [place] [address] Vital Signs Date Time Vital Sign Value Performing Clinician Cong reynolds 04-20-2023 14:07-0500 Diastolic blood pressure 75 mm[Hg] [facility] 04-20-2023 14:07-0500 Heart rate 93 /min [facility] 04-20-2023 14:07-0500 Respiratory rate 18 /min [facility] 10 [facility] 04-20-2023 14:07-0500 SaO2% (BldA) [Mass fraction] 99 % [facility] [address] [place] [address] 04-20-2023 14:07-0500 Systolic blood pressure 127 mm[Hg] [facility] [address] [place] [address] 04-20-2023 14:06-0500 Body height 160 cm [facility] [address] [place] [address] 04-20-2023 14:06-0500 Body mass index (BMI) [Ratio] 37.22 kg/m2 [facility] [address] [place] [address] 04-20-2023 14:06-0500 Body temperature 97.7 [degF] [facility] [address] [place] [address] 04-20-2023 14:06-0500 Body weight 95.3 kg [facility] [address] [place] [address] 03-10-2023 23:05-0500 Diastolic blood pressure 80 mm[Hg] Supriya Aichholz Work Phone: [facility] 03-10-2023 23:05-0500 Heart rate 100 /min Supriya Aichholz Work Phone: [facility] 03-10-2023 23:05-0500 Respiratory rate 20 /min Supriya Aichholz Work Phone: [facility] 03-10-2023 23:05-0500 SaO2% (BldA) [Mass fraction] 98 % Supriya Aichholz Work Phone: [facility] 03-10-2023 23:05-0500 Systolic blood pressure 137 mm[Hg] Supriya Aichholz Work Phone: [facility] 03-10-2023 17:38-0500 Body temperature 97.9 [degF] Supriya Aichholz Work Phone: [facility] 03-10-2023 17:32-0500 Body height 160.02 cm Supriya Aichholz Work Phone: [facility] 03-10-2023 17:32-0500 Body weight 95 kg Supriya Aichholz Work Phone: [facility] Encounters Encounter Date Encounter Type [...] Not Available Start: 05-22-2023 End: 05-22-2023 ambulatory [facility] Start: 05-22-2023 End: 05-22-2023 Postop follow up visit related to original px Gerson Malik MD [facility] Comment on [...] Evaluation and management of inpatient SUKI Smith [facility] Start: 05-04-2023 End: 05-04-2023 Evaluation and management of inpatient PA [facility] Start: 04-20-2023 End: 04-20-2023 ambulatory [facility] Start: 04-20-2023 End: 04-20-2023 Patient encounter procedure [facility] Provider 10 [facility]um [facility] Start: 03-31-2023 End: 03-31-2023 ambulatory XIN MORTEZA Not Available Start: 03-30-2023 End: 03-30-2023 ambulatory [facility] Start: 03-14-2023 End: 03-14-2023 ambulatory XIN MORTEZA Not Available Start: 03-10-2023 End: 03-11-2023 Emergency department patient visit Jacky Alarcon Facility:[facility] Start: 03-10-2023 End: 03-10-2023 Emergency department patient visit Supriya Emmanuelreillyaric Work Phone: [facility] Work Phone: Start: 03-07-2023 End: [...] 07-07-2017 End: 07-07-2017 Emergency department patient visit [facility] Start: 07-05-2017 End: 07-06-2017 Ambulatory Dickson Ar[place] Facility:[facility] Start: 07-04-2017 End: 07-04-2017 Emergency department patient visit Dickson W [place] Facility:[facility] Procedures Date Procedure Procedure Detail Performing [...] Td Vaccines (5 - Td or Tdap) [facility] Start: 05-04-2024 Adult BMI Screening Adult BMI Screen ing [facility] Start: 05-04-2024 Tobacco Screening Tobacco Screening [facility] Start: 04-20-2024 Adult BMI Screening Adult BMI Screen ing [facility] Start: 04-20-2024 Tobacco Screening Tobacco Screening [facility] Start: 06-05-2023 End: 06-05-2023 Patient encounter procedure 06/05/2023 9:50 AM EST Routine [facility] [address] [place] [id number] Xin Pro DO [address] [place] [address] [facility] Start: 05-04-2023 End: 05-04-2023 Admission to same day surgery center 05/04/2023 7:30 AM EST - 05/04/2023 9:30 AM EST Surgery [address] [place] [address] Gerson Malik MD [address] [place] [address] DAVINCI CHOLECYSTECTOMY [facility] Surgery Comment on above: DAVINCI CHOLECYSTECT ANDREA Start: 05-04-2023 End: 05-04-2023 DAVINCI CHOLECYSTECTOMY DAVINCI CHOLECYSTECTOMY CHOLELITHIASIS 05/04/2023 7:30 AM EST [facility] Start: 05-04-2023 End: 05-04-2023 DAVINCI CHOLECYSTECTOMY CHOLANGIOGRAM DAVINCI CHOLECYSTECTOMY CHOLANGIOGRAM CHOLELITHIASIS 05/04/2023 7:30 AM EST [facility] Start: 05-04-2023 Subsequent hospital visit by physician 05/04/2023 7:30 AM EST Hospital Encounter [address] [place] [id number] Gerson Malik MD [address] [place] [address] [facility] [facility] Start: 03-10-2023 US Gallbladder [facility] Start: 03-10-2023 US scan of gallbladder US gall bladd er [facility] Start: 03-10-2023 Bacteria identified in Urine by Culture [facility] Start: 12-09-2022 Influenza vaccination Influenza Vacc ine [facility] Start: 2019 Screening for malign ant neoplasm of cervix Pap Smear [facility] Start: 2016 Adult BMI Follow Up Plan Adult BMI F ollow Up Plan [facility] Start: 2010 Depression Screening Depression Scre ening [facility] Patient Education - e Second Month Nausea and Vomiting, Adult ED Gallstones ED [facility] Work Phone: Patient referral [facility] Work Phone: Payers Date Payer Category Payer Unknown [id number] 2022 Private Health Insurance [id number] 2022 Unknown [id number] 2017 Unknown 1998 Unknown [id number] 2.16.84 0.1.579393.3.579.2.593 1998 Unknown [id number] 2.16.84 0.1.029512.3.579.2.593 1998 Unknown [id number] 2.16.84 0.1.633664.3.579.2.593 1998 Unknown [id number] 2.16.84 0.1.432763.3.579.2.593 1998 Unknown [id number] 2.16.84 0.1.750514.3.579.2.593 1998 Unknown [id number] 2.16.84 0.1.191124.3.579.2.593 1998 Unknown [id number] 2.16.84 0.1.308230.3.579.2.593 1998 Unknown [id number] 2.16.84 0.1.114248.3.579.2.593 1998 Unknown [id number] 2.16.84 0.1.278713.3.579.2.593 1998 Unknown [id number] 2.16.84 0.1.642375.3.579.2.593 1998 Unknown [id number] 2.16.84 0.1.751658.3.579.2.593 1998 Unknown [id number] 2.16.84 0.1.024007.3.579.2.593 1998 Unknown [id number] 2.16.84 0.1.464080.3.579.2.593 1998 Unknown [id number] 2.16.8 40.1.525977.3.579.2.1286 1998 Unknown [id number] 2.16.8 40.1.029320.3.579.2.1286 1998 Unknown [id number] 2.16.8 40.1.154674.3.579.2.1286 1998 Unknown [id number] 2.16.8 40.1.200602.3.579.2.1286 1998 Unknown [id number] 2.16.84 0.1.920489.3.579.2.1286 1998 Unknown [id number] 2.16.84 0.1.639255.3.579.2.1286 1998 Unknown [id number] 2.16.84 0.1.766005.3.579.2.1259 1998 Unknown [id number] 2.16.84 0.1.969135.3.579.2.9 1998 Unknown [id number] 2.16.84 0.1.775138.3.579.2.1259 1998 Unknown [id number] 2.16.84 0.1.202803.3.579.2.1259 1998 Unknown [id number] 2.16.84 0.1.460844.3.579.2.1259 1998 Unknown [id number] 2.16.84 0.1.550868.3.579.2.1259 1998 Unknown [id number] 2.16.84 0.1.967569.3.579.2.1259 1998 Unknown [id number] 2.16.84 0.1.949752.3.579.2.1259 1998 Unknown [id number] 2.16.840 .1.348971.3.579.2.1259 1998 Unknown [id number] 2.16.840 .1.130257.3.579.2.1259 1998 Unknown [id number] 2.16.840 .1.220568.3.579.2.1259 1959 Private Health Insurance [id number] 1959 Self-pay 1959 Unknown [id number] 1959 Unknown [id number] Unknown [id number] 2.16.8 40.1.702907.3.579.2.531 Social History Date Type Detail Facility Start: 03-10-2023 End: 03-30-2023 Tobacco smoking status NHIS Never smoked tobacco (finding) [facility] Start: 2000 Sex Assigned At Female F [facility] Start: 03-30-2023 End: 05-16-2023 Tobacco use and exposure Smokeless tobacco non-user [facility] Start: 04-20-2023 End: 05-04-2023 Alcohol intake Ex-drinker (finding) [facility] Start: 05-21-2020 End: 04-20-2023 History of Social function [facility] Start: 05-21-2020 End: 04-20-2023 Tobacco use panel [facility] Housing Instability Unknown [facility] Start: 1998 Sex Assigned At Not on file P [facility] Start: 05-16-2023 Alcohol intake Lifetime non-d yrn (finding) [facility] Start: 02-10-2023 [facility] History of Present illness Narrative [...] up: As needed documented in this encounter [facility] [employer] Instructions 04-20-2023 Patient Instructions Note Date & Type Note Facility 04-20-2023 Instructions Terri Estrada RN - 04/20/2023 1:45 PM EST Your surgery/procedure is scheduled at [facility] on 05/04/23 at 0730 Arrival Time 0530 [facility] Address: [address] [place] [address] Park in [address] Parking lot located on [facility]. Report to the Entrance B. Check in at the information desk the surgery. The waiting room located on the second floor. If you have any questions prior to surgery, please call Pre-Admission Clinic at [phone] between 7:30 am and 4:30 pm Monday through Monday. If you have questions the morning of surgery, please call the Pre-op Department at [phone]. PLEASE FOLLOW THESE INSTRUCTIONS OR YOUR SURGERY [...] like to schedule therapy at a [facility] facility, please call [phone] ([phone]). Do not use lotions, creams, powders, perfume, make up, cologne or after-shaves day of surgery. Remove ALL jewelry including wedding rings, body piercings,hair extensions that contain metal, nail barbadian, make-up, and contact lens. You may brush [...] RIGHTS AND RESPONSIBILITIES As a patient at [facility], you have the right to: Receive medical care and be informed of who is taking care of you Be treated with dignity and respect Have a family member/customer counter representative of choice and your physician notified of your admission Receive information and actively participate in decisions about your care and treatment Refuse care, treatment and services Decide who may provide your support and speak for you Access evangelical and spiritual services Participate in ethical issues [...] of hospital charges and payment methods Patient/patient customer counter representative responsibilities are to: Provide information about [...] clothes. documented in this encounter [facility] Note 04-20-2023 Perioperative Nursing Note - Lexi Reddy RN - 04/20/2023 1:45 PM EST Note Date & Type Note Facility 04-20-2023 Miscellaneous Notes Formattin g of this note might be different from the original. Appt reminder call done-message left documented in this encounter [facility] Nurse Note 04-20-2023 Perioperative Nursing Note - Lexi Reddy RN - 04/20/2023 1:45 PM EST Note Date & Type Note Facility 04-20-2023 Nurse Note Appt reminder call done-message left [facility] Evaluation note Note Date & Type Note Facility Evaluation note No assessment information availa [facility] Work Phone: Evaluation note Note Date & Type Note Facility Evaluation note Diagnosis Status post laparoscopic cholecystectomy- Primary Other postprocedural status documented in this encounter [facility] Hospital Discharge instructions Note Date & Type Note Facility Hospital Discharge instructions Additional Instructions Return if symptoms are worse Continue your Zofran and Reglan at home and will add Phenergan for vomiting Follow-up with your surgeon [facility] Work Phone: Instructions Attachments Note Date & Type Note Facility Instructions The following attachments cannot be sent through Care Everywhere.Cholecystectomy Discharge Instructions (Greenlandic)documented in this encounter [facility] Summary Purpose Family History No Family [...] section and content) DATE CREATED AUTHOR 09/28/2017 [facility] jenn DATE CREATED AUTHOR AUTHOR'S ORGANIZ ATION 09/29/2017 [facility] DATE CREATED AUTHOR AUTHOR'S ORGANIZ ATION 04/16/2020 [facility] DATE CREATED AUTHOR AUTHOR'S ORGANIZ ATION 08/24/2022 [facility] DATE CREATED AUTHOR AUTHOR'S ORGANIZ ATION 03/21/2023 [facility] DATE CREATED AUTHOR AUTHOR'S ORGANIZ ATION 05/24/2023 [facility] DATE CREATED AUTHOR AUTHOR'S ORGANIZ ATION 09/29/2023 [facility] EPIC Care Teams (unrecognized sec tion and content) Team Status: Active Member Role Status Dates Supriya Cerrato Primary Care Provider Active Team Status: Inactive Member Role Status Dates Supriya Cerrato Primary Care Provider Active Jacky Alarcon MD Emergency Provider Active 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 [facility] [employer] provides no warranty or guarantee of the accuracy or completeness of information in this document.
== END 2023-10-07 08:06 | disposition home or self-care (01) ==
LOC: FBCO 06:06 → FBC 07:24
PROVIDERS: Visit Provider Obstetrics & Gynecology
DX: O36.63X0 Maternal care for excessive fetal growth, third trimester, not applicable or unspecified (principal)
CPT/HCPCS: 59025

== ENCOUNTER 2023-10-11 07:02 | Outpatient (OUT) | payer OTHER, SELFPAY ==
--- OUTSIDE RECORDS SUMMARY | 2023-10-11 07:04 | XMS_ITS | CCD ---
Author Organization [facility] Care Team Providers Care Superintendent House Name Role Phone [place], Dickson W Unavailable Unavailable Galdino, Dickson W Unavailable Unavailable No Doctor Assigned, Nodr Unavailable Unavail able Galdino, Dickson W Unavailable Unavailable [place], Dickson W Unavailable Unavailable No Doctor Assigned, Nodr Unavailable Unavail able SHEMAR ., STEFAN Admitting Unavailable SHEMAR ., STEFAN Consulting Unavailable AICHHOLZ, SOFTWARE SYSTEMS ARCHITECT SUPRIYA Primary Care Unavailable SHEMAR ., STEFAN Attending Unavailable MORTEZA ., DR LAUREN Admitting Unavailable SHEMAR ., STEFAN Consulting Unavailable AICHHOLZ, SOFTWARE SYSTEMS ARCHITECT SUPRIYA Primary Care Unavailable MORTEZA ., DR LAUREN Attending Unavailable SHEMAR ., STEFAN Admitting Unavailable SHEMAR ., STEFAN Consulting Unavailable SHEMAR ., STEFAN Attending Unavailable AICHHOLZ, SOFTWARE SYSTEMS ARCHITECT SUPRIYA Primary Care Unavailable AICHHOLZ, SOFTWARE SYSTEMS ARCHITECT SUPRIYA Primary Care Unavailable MORTEZA ., DR LAUREN Attending Unavailable MORTEZA ., DR LAUREN Admitting Unavailable MORTEZA ., DR LAUREN Admitting Unavailable MORTEZA ., DR LAUREN Attending Unavailable AICHHOLZ, SOFTWARE SYSTEMS ARCHITECT SUPRIYA Primary Care Unavailable MORTEZA ., DR LAUREN Consulting Unavailable KARASIK ., DR MURPHY Attending Unavailabl e AICHHOLZ, SOFTWARE SYSTEMS ARCHITECT SUPRIYA Primary Care Unavailable KARASIK ., DR [...] MORTEZA ., DR LAUREN Consulting Unavailable AICHHOLZ, SOFTWARE SYSTEMS ARCHITECT SUPRIYA Primary Care Unavailable MORTEZA ., DR LAUREN Attending Unavailable Zieber, Tristan Consulting Unavailable MORTEZA ., DR LAUREN Consulting Unavailable REQUEST, DR NONE LISTED Primary Care Unavaila ble MORTEZA ., DR LAUREN Attending Unavailable MORTEZA ., DR LAUREN Admitting Unavailable Zieber, Tristan Consulting Unavailable MORTEZA ., DR LAUREN Admitting Unavailable AICHHOLZ, SOFTWARE SYSTEMS ARCHITECT SUPRIYA Primary Care Unavailable MORTEZA ., DR LAUREN Attending Unavailable VICTOR, DR DONALD Bryan Consulting Unavailable MORTEZA ., DR LAUREN Consulting Unavailable MORTEZA ., DR LAUREN Admitting Unavailable AICHHOLZ, SOFTWARE SYSTEMS ARCHITECT SUPRIYA Primary Care Unavailable MORTEZA ., DR LAUREN Attending Unavailable MORTEZA ., DR LAUREN Consulting Unavailable SHEMAR ., STEFAN Attending Unavailable SHEMAR ., STEFAN Admitting Unavailable Zieber, Tristan Consulting Unavailable REQUEST, DR NONE LISTED Primary Care Unavaila ble SHEMAR ., STEFAN Consulting Unavailable MORTEZA ., DR LAUREN Admitting Unavailable MORTEZA ., DR LAUREN Consulting Unavailable MORTEZA ., DR LAUREN Attending Unavailable AICHHOLZ, SOFTWARE SYSTEMS ARCHITECT SUPRIYA Primary Care Unavailable Aichholz, Supriya J Primary Care Provider MD Jacky Alarcon Emergency Provider Jacky Alarcon Attending Unavailable Jacky Alarcon Admitting Unavailable Aicstef, Supriya J Primary Care Unavailable Aichholz STEEL RULE INSPECTOR-SOFTWARE SYSTEMS ARCHITECT, Supriya J Primary Care Provider Unavailable Primary [...] Propensity to adverse reactions to drug (disorder) [facility] Repository Medications Current Medications Medication [...] applicable or unspecified; Translations: [MAT CARE EXCSS [facility] GR 3RD TRI UNS] Onset: 06-06-2022 Episodic [...] WITH AUTO DIFFon BASOPHILS ABSOLUTE AUTO 0.0 [facility] Basophils/100 WBC (Bld) 0.3 % 0.2 - 2.0 % [facility] Eosin[facility]/100 WBC (Bld) 2.0 % 0.9 - 7.0 % [facility] Erythrocyte distribution width (RBC) [Ratio] 12.8 % 11.0 - 15.0 % [facility] Hematocrit (Bld) [Volume fraction] 39.3 % 36.0 - 48.0 % [facility] Hemoglobin (Bld) [Mass/Vol] 14.1 g/dL 12.0 - 16.0 g/dL [facility] IMMATURE GRANULOCYTES ABS AUTO 0.07 High [facility] Immature granulocytes/100 WBC (Bld) 0.7 % High 0.0 - 0.5 % [facility] Interpretation and review of laboratory results Abnormal [facility] LYMPHOCYTES ABSOLUTE AUTO 2.0 [facility] Lymphocytes/100 WBC (Bld) 19.1 % Low 20.5 - 60.0 % [facility] MCH (RBC) [Entitic mass] 32.0 pg 26.7 - 34.0 pg [facility] MCHC (RBC) [Mass/Vol] 35.9 g/dL High 29.9 - 35.2 g/dL [facility] MCV (RBC) [Entitic vol] 89.3 fL 81.0 - 99.0 fL [facility] MONOCYTES ABSOLUTE AUTO 0.5 [facility] Monocytes/100 WBC (Bld) 4.7 % 1.7 - 12.0 % [facility] NEUTROPHILS ABSOLUTE AUTO 7.6 High [facility] Neutrophils/100 WBC (Bld) 73.2 % 43.0 - 75.0 % [facility] Platelet mean volume (Bld) [Entitic vol] 11.4 fL 9.5 - 13.5 fL [facility] TBH EO # 0.2 [facility] TB PLT [address] [facility] RBC 4.40 [facility] TBH WBC 10.4 [facility] Surgical Pathologyon 024 Surgical Pathology Normal [facility] Comment on above: Result Comment: [facility] [address] [place] [address] Surgical Pathology Consultation Patient Name:DARY ASHLEY:2000 (Age: 23)Gender:FTaken:4Reported:4Physician(s):GERSON Kelsey To: Rec. 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 No evidence of malignancy or dysplasia. Cholelithiasis. Report Electronically Signed Out ao/05/12/2023olamide Moreno MD Interpretation performed at [facility], [address] [place] [address], License number: [id number]. Clinical History Cholelithiasis. Gross Description Received in [...] congested, hemorrhagic and velvety in the neck. Mental Health Professional sections are submitted in cassettes A- B, as: A- cystic duct margin and admitting representative ragged defects,B- admitting representative neck body and fundus. After initial microscopic evaluation, additional sections are submitted in cassettes C-E. (5,ss,[id number], m6) MARYJANE/ mxw/05/04/2023SSI Specimen(s) Received Gallbladder Fee Codes(s): 1; 03744 gall bladderon 03-11-[address] [facility] [address] Ultrasound Report Signed Patient: Dary Ashley MR#: [id number] : 2000 Acct:[id number] Age/Sex: 22 / F ADM Date: 03/10/23 Loc: ER Room: Type: [facility] ER Attending Dr: Ordering Provider: Jacky [...] Nataliia Scott M.D.03/11/2023 8:10 AM Dictation Location: [place] [address] Tech: Isi Federico Transcribed By: RONI 03/11/23 0810 Dictated By: Nataliia Scott MD 03/11/23 0807 Signed By: 03/11/[address] [facility] Alanine aminotransferase [En zymatic activity/volume] in Serum or PlasmaOrdered By: Jacky Alarcon on 03-10-2023 ALT [Catalytic activity/Vol] 36 U/L 7-[address] [facility] Albumin [Mass/volume] in Ser um or Plasma by Bromocresol green (BCG) dye binding methoOrdered By: Jacky Alarcon on 03-10-2023 Albumin BCG dye [Mass/Vol] 4.5 g/dL 3.5-5.[address] [facility] Alkaline phosphatase [Enzyma tic activity/volume] in Serum or PlasmaOrdered By: Jacky Alarcon on 03-10-2023 ALP [Catalytic activity/Vol] 71 U/L 34-[address] [facility] Aspartate aminotransferase [ Enzymatic activity/volume] in Serum or PlasmaOrdered By: Jacky Alarcon on 03-10-2023 AST [Catalytic activity/Vol] 17 U/L 13-[address] [facility] Automated erythrocytes count in urine sediment (number/area)Ordered By: Jacky Alarcon on 03-10-2023 RBC Auto (Urine sed) [#/Area] 50-100 [HPF] 0-[address] [facility] Automated leukocytes count i n urine sediment (number/area)Ordered By: Jacky Alarcon on 03-10-2023 WBC Auto (Urine sed) [#/Area] 5-9 [HPF] 0-[address] [facility] Basic Metabolic Panelon 12 Anion gap [Moles/Vol] 16.5 mmol/L High 6.0-15.0 [facility] Comment on above: Performed By: #### L IPASE, HCGQNT, HEPATIC, BMP, CBC #### [facility] [address] Calcium [Mass/Vol] 9.3 mg/dL Normal 8.6-10.3 [facility] Comment on above: Performed By: #### L IPASE, HCGQNT, HEPATIC, BMP, CBC #### [facility] [address] [place] [address] [place] Chloride [Moles/Vol] 101 mmol/L Normal 98-107 [facility] Comment on above: Performed By: #### L IPASE, HCGQNT, HEPATIC, BMP, CBC #### [facility] [address] [place] [address] [place] CO2 [Moles/Vol] 18.8 mmol/L Low 21.0-31.0 [facility] Comment on above: Performed By: #### L IPASE, HCGQNT, HEPATIC, BMP, CBC #### [facility] [address] [place] [address] [place] Creatinine [Mass/Vol] 0.64 mg/dL Normal 0.60-1.20 [facility] Comment on above: Performed By: #### L IPASE, HCGQNT, HEPATIC, BMP, CBC #### [facility] [address] [place] [address] [place] Creatinine Clr Calc Pharmacy 148.[address] [facility] Comment on above: Performed By: #### L IPASE, HCGQNT, HEPATIC, BMP, CBC #### [facility] [address] [place] [address] [place] GFR/1.73 sq M.predicted MDRD (S/P/Bld) [Vol rate/Area] mL/min/{1.73_m2} Normal [facility] Comment on above: Performed By: #### L IPASE, HCGQNT, HEPATIC, BMP, CBC #### [facility] [address] Glucose [Mass/Vol] 83 mg/dL Normal 70-100 [facility] Comment on above: Result Comment: [place] Glucose Reference Range is dependent on time and content of last meal. Glucose of more than 200 mg/dL in a nonstressed, ambulatory subject supports the diagnosis of Diabetes Mellitus. ADA recommended reference range Performed By: #### L IPASE, HCGQNT, HEPATIC, BMP, CBC #### [facility] [address] Potassium [Moles/Vol] 3.3 mmol/L Low 3.5-5.1 [facility] Comment on above: Performed By: #### L IPASE, HCGQNT, HEPATIC, BMP, CBC #### [address] Sodium [Moles/Vol] 133 mmol/L Low 136-145 [facility] Comment on above: Performed By: #### L IPASE, HCGQNT, HEPATIC, BMP, CBC #### [facility] [address] [place] [address] Urea nitrogen [Mass/Vol] 6 mg/dL Low 7-[address] [facility] Comment on above: Performed By: #### L IPASE, HCGQNT, HEPATIC, BMP, CBC #### [facility] [address] [place] [address] Basophils Auto (Bld) [#/Vol] Ordered By: Jacky Alarcon on 03-10-2023 Basophils (Bld) [#/Vol] 0.1 10*3/uL 0.0-0.[address] [facility] Basophils/100 WBC Auto (Bld) Ordered By: Jacky Alarcon on 03-10-2023 Basophils/100 WBC (Bld) 0.4 % . [facility] Bilirubin Test strip Ql (U)O rdered By: Jacky Alarcon on 03-10-2023 Bilirubin Ql (U) Negative Negative [facility] Bilirubin.direct [Mass/volum e] in Serum or PlasmaOrdered By: Jacky Alarcon on 03-10-2023 Bilirubin.direct [Mass/Vol] 0.40 mg/dL 0.03-0.[address] [facility] Bilirubin.total [Mass/volume ] in Serum or PlasmaOrdered By: Jacky Alarcon on 03-10-2023 Bilirubin [Mass/Vol] 1.2 mg/dL 0.3-1.0 [facility] Calcium [Mass/volume] in Ser um or PlasmaOrdered By: Jacky Alarcon on 03-10-2023 Calcium [Mass/Vol] 9.3 mg/dL 8.6-10.3 [facility] Carbon dioxide, total [Moles /volume] in Serum or PlasmaOrdered By: Jacky Alarcon on 03-10-2023 CO2 [Moles/Vol] 18.8 mmol/L 21.0-31.0 [facility] Chloride [Moles/volume] in S rahul or PlasmaOrdered By: Jacky Alarcon on 03-10-2023 Chloride [Moles/Vol] 101 mmol/L 98-107 [facility] Choriogonadotropin.beta subu nit [Units/volume] in Serum or PlasmaOrdered By: Jacky Alarcon on 03-10-2023 [place] [address].00 m[IU]/mL [facility] Comment on above: Approximate Approxim ate hCG Gestational Age Range (mIU/ml) (weeks)0.2-1 5-50 1-2 50-500 2-3 100-5,000 3-4 500-10,000 4-5 1,000-50,000 5-6 10,000-100,000 6-8 15,000-200,000 8-12 10,000-100,000 Color Auto (U)Ordered By: Corinna Alarcon on 03-10-2023 Color (U) Dark yellow Yellow [facility] Complete Blood Count Auto Di ffon 03-10-2023 Basophils (Bld) [#/Vol] 0.1 10*3/uL Normal 0.0-0.[address] [facility] Comment on above: Result Comment: PERF ORMED BY: [facility] [address] [place] [address] PATHOLOGIST BUILDING EQUIPMENT INSPECTOR ANDRÉS MACEDO M.D. Performed By: #### L IPASE, HCGQNT, HEPATIC, BMP, CBC #### [address] Basophils/100 WBC (Bld) 0.4 % Normal . [facility] Comment on above: Performed By: #### L IPASE, HCGQNT, HEPATIC, BMP, CBC #### [address] Eosinophils (Bld) [#/Vol] 0.1 10*3/uL Normal 0.0-0.[address] [facility] Comment on above: Performed By: #### L IPASE, HCGQNT, HEPATIC, BMP, CBC #### [address] Eosinophils/100 WBC (Bld) 0.5 % Normal . [facility] Comment on above: Performed By: #### L IPASE, HCGQNT, HEPATIC, BMP, CBC #### [address] Erythrocyte distribution width (RBC) [Ratio] 13.3 % Normal 11.9-15.[address] [facility] Comment on above: Performed By: #### L IPASE, HCGQNT, HEPATIC, BMP, CBC #### [address] Hematocrit (Bld) [Volume fraction] 47.2 % High 34.0-46.[address] [facility] Comment on above: Performed By: #### L IPASE, HCGQNT, HEPATIC, BMP, CBC #### [address] Hemoglobin (Bld) [Mass/Vol] 16.5 g/dL High 11.8-15.[address] [facility] Comment on above: Performed By: #### L IPASE, HCGQNT, HEPATIC, BMP, CBC #### [address] Lymphocytes (Bld) [#/Vol] 1.9 10*3/uL Normal 1.00-4.[address] [facility] Comment on above: Performed By: #### L IPASE, HCGQNT, HEPATIC, BMP, CBC #### [address] Lymphocytes/100 WBC (Bld) 11.6 % Normal . [facility] Comment on above: Performed By: #### L IPASE, HCGQNT, HEPATIC, BMP, CBC #### [address] MCH (RBC) [Entitic mass] 30.8 pg Normal 24.7-34.[address] [facility] Comment on above: Performed By: #### L IPASE, HCGQNT, HEPATIC, BMP, CBC #### [address] MCV (RBC) [Entitic vol] 87.8 fL Normal 80-[address] [facility] Comment on above: Performed By: #### L IPASE, HCGQNT, HEPATIC, BMP, CBC #### [address] Mean Corpuscular HGB Conc 35.0 g/dL Normal 32.0-35.[address] [facility] Comment on above: Performed By: #### L IPASE, HCGQNT, HEPATIC, BMP, CBC #### [address] Monocytes (Bld) [#/Vol] 1.4 10*3/uL High 0.0-0.[address] [facility] Comment on above: Performed By: #### L IPASE, HCGQNT, HEPATIC, BMP, CBC #### [place] [address] [place] Monocytes/100 WBC (Bld) 16.05 % Normal 0.00-20.[address] [facility] Comment on above: Performed By: #### L IPASE, HCGQNT, HEPATIC, BMP, CBC #### [address] Monocytes/100 WBC (Bld) 8.8 % Normal . [facility] Comment on above: Performed By: #### L IPASE, HCGQNT, HEPATIC, BMP, CBC #### [place] [address] [place] Neutrophils (Bld) [#/Vol] 12.6 10*3/uL High 1.8-7.[address] [facility] Comment on above: Performed By: #### L IPASE, HCGQNT, HEPATIC, BMP, CBC #### [place] [address] [place] Neutrophils/100 WBC (Bld) 78.7 % Normal . [facility] Comment on above: Performed By: #### L IPASE, HCGQNT, HEPATIC, BMP, CBC #### [address] NRBC% 0.1 /100{WBC} Normal 0-0.[address] [facility] Comment on above: Performed By: #### L IPASE, HCGQNT, HEPATIC, BMP, CBC #### [address] Platelet mean volume (Bld) [Entitic vol] 9.7 fL Normal 6.3-10.[address] [facility] Comment on above: Performed By: #### L IPASE, HCGQNT, HEPATIC, BMP, CBC #### [place] [address] [place] Platelets (Bld) [#/Vol] 263 10*3/uL Normal 150-[address] [facility] Comment on above: Performed By: #### L IPASE, HCGQNT, HEPATIC, BMP, CBC #### [place] [address] [place] RBC (Bld) [#/Vol] 5.37 10*6/uL High 3.60-5.00 [facility] Comment on above: Performed By: #### L IPASE, HCGQNT, HEPATIC, BMP, CBC #### [place] [address] [place] WBC (Bld) [#/Vol] 16.0 10*3/uL High 3.8-11.6 [facility] Comment on above: Performed By: #### L IPASE, HCGQNT, HEPATIC, BMP, CBC #### [facility] [address] Creatinine [Mass/volume] in Serum or PlasmaOrdered By: Jacky Alarcon on 03-10-2023 Creatinine [Mass/Vol] 0.64 mg/dL 0.60-1.20 [facility] Dipstick and Microscopicon 1 05-11-2022 Appearance (U) Turbid Critically abnormal Clear [facility] Comment on above: Order Comment: Name Collection Type:: Clean-Voided Midstream Performed By: #### A DDONUAPLUS, CUU #### [facility] [address] [place] [address] [place] Bacteria,Urine Rare High None Seen [facility] Comment on above: Order Comment: Name Collection Type:: Clean-Voided Midstream Performed By: #### A DDONUAPLUS, CUU #### [facility] [address] [place] [address] [place] Bilirubin,Urine Negative Normal Negative [facility] Comment on above: Order Comment: Name Collection Type:: Clean-Voided Midstream Performed By: #### A DDONUAPLUS, CUU #### [facility] [address] [place] [address] [place] Color (U) Dark Yellow Critically abnormal Yellow [facility] Comment on above: Order Comment: Name Collection Type:: Clean-Voided Midstream Performed By: #### A DDONUAPLUS, CUU #### [facility] [address] [place] [address] [place] Glucose Ql (U) Normal Normal Normal [facility] Comment on above: Order Comment: Name Collection Type:: Clean-Voided Midstream Performed By: #### A DDONUAPLUS, CUU #### [facility] [address] [place] [address] [place] Hyaline Casts,Urine 9-19 High 0-8 [facility] Comment on above: Order Comment: Name Collection Type:: Clean-Voided Midstream Result Comment: PERF ORMED BY: [address] [place] [address] PATHOLOGIST BUILDING EQUIPMENT INSPECTOR ANDRÉS MACEDO M.D. Performed By: #### A DDONUAPLUS, CUU #### [address] Ketones Ql (U) 4+ High Negative [facility] Comment on above: Order Comment: Name Collection Type:: Clean-Voided Midstream Performed By: #### A DDONUAPLUS, CUU #### [address] Leukocyte esterase Test strip Ql (U) 1+ High Negative [facility] Comment on above: Order Comment: Name Collection Type:: Clean-Voided Midstream Performed By: #### A DDONUAPLUS, CUU #### [address] Nitrite,Urine Negative Normal Negative [facility] Comment on above: Order Comment: Name Collection Type:: Clean-Voided Midstream Performed By: #### A DDONUAPLUS, CUU #### [address] Occult Blood,Urine 3+ High Negative [facility] Comment on above: Order Comment: Name Collection Type:: Clean-Voided Midstream Result Comment: PERF ORMED BY: [place] [address] PATHOLOGIST BUILDING EQUIPMENT INSPECTOR ANDRÉS MACEDO M.D. Performed By: #### A DDONUAPLUS, CUU #### [address] Othe Crystals,Urine Normal [facility] Comment on above: Order Comment: Name Collection Type:: Clean-Voided Midstream Result Comment: sulf a crystals Performed By: #### A DDONUAPLUS, CUU #### [address] pH (U) 6.5 [pH] Normal 5.0-9.[address] [facility] Comment on above: Order Comment: Name Collection Type:: Clean-Voided Midstream Performed By: #### A DDONUAPLUS, CUU #### [address] Protein (U) [Mass/Vol] 100 mg/dL High Negative [facility] Comment on above: Order Comment: Name Collection Type:: Clean-Voided Midstream Performed By: #### A DDONUAPLUS, CUU #### [address] RBC,Urine 50-100 High 0-[address] [facility] Comment on above: Order Comment: Name Collection Type:: Clean-Voided Midstream Performed By: #### A DDONUAPLUS, CUU #### [address] Specificy [place],Urine 1.029 Normal 1.001-1.[address] [facility] Comment on above: Order Comment: Name Collection Type:: Clean-Voided Midstream Performed By: #### A DDONUAPLUS, CUU #### [address] Squamous Epithelial Cell,Urine 1-2 Normal 0-[address] [facility] Comment on above: Order Comment: Name Collection Type:: Clean-Voided Midstream Performed By: #### A DDONUAPLUS, CUU #### [address] Urobilinogen,Urine Normal Normal Normal [facility] Comment on above: Order Comment: Name Collection Type:: Clean-Voided Midstream Performed By: #### A DDONUAPLUS, CUU #### [address] WBC,Urine 5-9 High 0-[address] [facility] Comment on above: Order Comment: Name Collection Type:: Clean-Voided Midstream Performed By: #### A DDONUAPLUS, CUU #### [address] Eosinophils Auto (Bld) [#/Vo l]Ordered By: Jacky Alarcon on 03-10-2023 Eosinophils (Bld) [#/Vol] 0.1 10*3/uL 0.0-0.[address] [facility] Eosinophils/100 WBC Auto (Bl d)Ordered By: Jacky Alarcon on 03-10-2023 Eosinophils/100 WBC (Bld) 0.5 % . [facility] Erythrocyte distribution wid th Auto (RBC) [Ratio]Ordered By: Jacky Alarcon on 03-10-2023 Erythrocyte distribution width (RBC) [Ratio] 13.3 % 11.9-15.[address] [facility] Globulin Calc (S) [Mass/Vol] Ordered By: Jacky Alarcon on 03-10-2023 Globulin (S) [Mass/Vol] 3.5 g/dL [facility] Glucose [Mass/volume] in Ser um or PlasmaOrdered By: Jacky Alarcon on 03-10-2023 Glucose [Mass/Vol] 83 mg/dL 70-100 [facility] Comment on above: ADA recommended refe rence rangeRandom Glucose Reference Range is dependent on time and content of last meal. Glucose of more than 200 mg/dL in a nonstressed, ambulatory subject supports the diagnosis of Diabetes Mellitus. HCG ( test) IA.rapi d Ql (U)Ordered By: Jacky Alarcon on 03-10-2023 HCG ( test) Ql (U) Positive [facility] HCG,Quantitativeon 3 HCG,Quantitative 89945.00 m[iU]/mL Normal [facility] Comment on above: Result Comment: Appr oximate Approximate hCG Gestational Age Range (mIU/ml) (weeks) 0.2-1 5-50 1-2 50-500 2-3 100-5,000 3-4 500-10,000 4-5 1,000-50,000 5-6 10,000-100,000 6-8 15,000-200,000 8-12 10,000-100,000 PERFORMED BY: [place] [address] PATHOLOGIST BUILDING EQUIPMENT INSPECTOR ANDRÉS MACEDO M.D. Performed By: #### L IPASE, HCGQNT, HEPATIC, BMP, CBC #### [address] HCG,Urineon 03-10-2023 Beta HCG ( test) Ql (U) Positive High [facility] Comment on above: Result Comment: PERF ORMED BY: [place] [address] PATHOLOGIST BUILDING EQUIPMENT INSPECTOR ANDRÉS MACEDO M.D. Performed By: #### U HCG #### [facility] [address] [place] [address] Hematocrit Auto (Bld) [Volum e fraction]Ordered By: Jacky Alarcon on 03-10-2023 Hematocrit (Bld) [Volume fraction] 47.2 % 34.0-46.[address] [facility] Hemoglobin [Mass/volume] in BloodOrdered By: Jacky Alarcon on 03-10-2023 Hemoglobin (Bld) [Mass/Vol] 16.5 g/dL 11.8-15.[address] [facility] Hepatic Panelon 03-10-2023 Albumin [Mass/Vol] 4.5 g/dL Normal 3.5-5.7 [facility] Comment on above: Performed By: #### L IPASE, HCGQNT, HEPATIC, BMP, CBC #### [facility] [address] [place] [address] [place] Albumin/Globulin [Mass ratio] 1.3 {ratio} Normal [facility] Comment on above: Performed By: #### L IPASE, HCGQNT, HEPATIC, BMP, CBC #### [facility] [address] [place] [address] [place] ALP [Catalytic activity/Vol] 71 U/L Normal 34-[address] [facility] Comment on above: Performed By: #### L IPASE, HCGQNT, HEPATIC, BMP, CBC #### [facility] [address] [place] [address] [place] ALT [Catalytic activity/Vol] 36 U/L Normal 7-[address] [facility] Comment on above: Performed By: #### L IPASE, HCGQNT, HEPATIC, BMP, CBC #### [facility] [address] [place] [address] [place] AST [Catalytic activity/Vol] 17 U/L Normal 13-[address] [facility] Comment on above: Performed By: #### L IPASE, HCGQNT, HEPATIC, BMP, CBC #### [facility] [address] Bilirubin [Mass/Vol] 1.2 mg/dL High 0.3-1.0 [facility] Comment on above: Performed By: #### L IPASE, HCGQNT, HEPATIC, BMP, CBC #### [facility] [address] Bilirubin,Indirect 0.8 mg/dL Normal [facility] Comment on above: Performed By: #### L IPASE, HCGQNT, HEPATIC, BMP, CBC #### [facility] [address] Bilirubin.indirect [Mass/Vol] 0.40 mg/dL High 0.03-0.[address] [facility] Comment on above: Performed By: #### L IPASE, HCGQNT, HEPATIC, BMP, CBC #### [address] Globulin (S) [Mass/Vol] 3.5 g/dL Normal [facility] Comment on above: Performed By: #### L IPASE, HCGQNT, HEPATIC, BMP, CBC #### [address] Protein [Mass/Vol] 8.0 g/dL Normal 6.4-8.9 [facility] Comment on above: Performed By: #### L IPASE, HCGQNT, HEPATIC, BMP, CBC #### [facility] [address] [place] [address] Ketones Auto test strip (U) [Mass/Vol]Ordered By: Jacky Alarcon on 03-10-2023 Ketones (U) [Mass/Vol] 4+ Negative [facility] - UrinalysisOrder ed By: Jacky Alarcon on 03-10-2023 Hyaline casts LM Ql (Urine sed) 9-19 [LPF] 0-[address] [facility] Leukocytes [#/volume] correc anabell for nucleated erythrocytes in Blood by Automated counOrdered By: Jacky Alarcon on 03-10-2023 WBC corrected for nucl RBC Auto (Bld) [#/Vol] 16.0 10*3/uL 3.8-11.[address] [facility] Lipaseon 03-10-2023 Lipase [Catalytic activity/Vol] 35.0 U/L Normal 11.0-82.[address] [facility] Comment on above: Result Comment: PERF ORMED BY: [facility] [address] [place] [id number] PATHOLOGIST BUILDING EQUIPMENT INSPECTOR ANDRÉS MACEDO M.D. Performed By: #### L IPASE, HCGQNT, HEPATIC, BMP, CBC #### [facility] [address] Lipase [Enzymatic activity/v olume] in Serum or PlasmaOrdered By: Jacky Alarcon on 03-10-2023 Lipase [Catalytic activity/Vol] 35.0 U/L 11.0-82.[address] [facility] Lymphocytes Auto (Bld) [#/Vo l]Ordered By: Jacky Alarcon on 03-10-2023 Lymphocytes (Bld) [#/Vol] 1.9 10*3/uL 1.00-4.[address] [facility] Lymphocytes/100 WBC Auto (Bl d)Ordered By: Jacky Alarcon on 03-10-2023 Lymphocytes/100 WBC (Bld) 11.6 % . [facility] MCH Auto (RBC) [Entitic mass ]Ordered By: Jacky Alarcon on 03-10-2023 MCH (RBC) [Entitic mass] 30.8 pg 24.7-34.[address] [facility] MCHC Auto (RBC) [Mass/Vol]Or dered By: Jacky Alarcon on 03-10-2023 MCHC (RBC) [Mass/Vol] 35.0 g/dL 32.0-35.0 [facility] MCV Auto (RBC) [Entitic vol] Ordered By: Jacky Alarcon on 03-10-2023 MCV (RBC) [Entitic vol] 87.8 fL 80-[address] [facility] Monocyte distribution width [Entitic volume] in Blood by AutomatedOrdered By: Jacky Alarcon on 03-10-2023 Monocyte distribution width Auto (Bld) [Entitic vol] 16.05 % 0.00-20.[address] [facility] Monocytes Auto (Bld) [#/Vol] Ordered By: Jacky Alarcon on 03-10-2023 Monocytes (Bld) [#/Vol] 1.4 10*3/uL 0.0-0.[address] [facility] Monocytes/100 WBC Auto (Bld) Ordered By: Jacky Alarcon on 03-10-2023 Monocytes/100 WBC (Bld) 8.8 % . [facility] Neutrophils Auto (Bld) [#/Vo l]Ordered By: Jacky Alarcon on 03-10-2023 Neutrophils (Bld) [#/Vol] 12.6 10*3/uL 1.8-7.[address] [facility] Neutrophils/100 WBC Auto (Bl d)Ordered By: Jacky Alarcon on 03-10-2023 Neutrophils/100 WBC (Bld) 78.7 % . [facility] Nitrite Test strip Ql (U)Ord ered By: Jacky Alarcon on 03-10-2023 Nitrite Ql (U) Negative Negative [facility] No Panel InformationOrdered By: Jacky Alarcon on 03-10-2023 Estimated GFR (CKD-EPI) > 60.0 mL/Min [facility] Creatinine Clearance (Chem 148.[address] [facility] Nucleated erythrocytes [Pres ence] in Blood by Automated countOrdered By: Jacky Alarcon on 03-10-2023 Nucleated RBC Auto Ql (Bld) 0.1 /100{WBC} 0-0.[address] [facility] Platelet mean volume Auto (B ld) [Entitic vol]Ordered By: Jacky Alarcon on 03-10-2023 Platelet mean volume (Bld) [Entitic vol] 9.7 fL 6.3-10.[address] [facility] Platelets Auto (Bld) [#/Vol] Ordered By: Jacky Alarcon on 03-10-2023 Platelets (Bld) [#/Vol] 263 10*3/uL 150-[address] [facility] Potassium [Moles/volume] in Serum or PlasmaOrdered By: Jacky Alarcon on 03-10-2023 Potassium [Moles/Vol] 3.3 mmol/L 3.5-5.1 [facility] Protein Auto test strip (U) [Mass/Vol]Ordered By: Jacky Alarcon on 03-10-2023 Protein (U) [Mass/Vol] 100 mg/dL Negative [facility] Protein [Mass/volume] in Ser um or PlasmaOrdered By: Jacky Alarcon on 03-10-2023 Protein [Mass/Vol] 8.0 g/dL 6.4-8.9 [facility] RBC Auto (Bld) [#/Vol]Ordere d By: Jacky Alarcon on 03-10-2023 RBC (Bld) [#/Vol] 5.37 10*6/uL 3.60-5.00 [facility] Serum or plasma albumin/glob ulin mass ratioOrdered By: Jacky Alarcon on 03-10-2023 Albumin/Globulin [Mass ratio] 1.3 {ratio} [facility] Serum or plasma anion gap de terminationOrdered By: Jacky Alarcon on 03-10-2023 Anion gap [Moles/Vol] 16.5 mmol/L 6.0-15.0 [facility] Serum or plasma non-glucuron idated bilirubin measurement (mass/volume)Ordered By: Jacky Alarcon on 03-10-2023 Bilirubin.indirect [Mass/Vol] 0.8 mg/dL [facility] Sodium [Moles/volume] in Ser um or PlasmaOrdered By: Jacky Alarcon on 03-10-2023 Sodium [Moles/Vol] 133 mmol/L 136-145 [facility] Specific gravity Auto test s trip (U) [Rel density]Ordered By: Jacky Alarcon on 03-10-2023 Specific gravity (U) [Rel density] 1.029 1.001-1.[address] [facility] Squamous epithelial cells de tection in urine sediment by light microscopyOrdered By: Jacky Alarcon on 03-10-2023 Epithelial cells.squamous LM Ql (Urine sed) 1-2 [HPF] 0-[address] [facility] Urea nitrogen [Mass/volume] in Serum or PlasmaOrdered By: Jacky Alarcon on 03-10-2023 Urea nitrogen [Mass/Vol] 6 mg/dL 7-[address] [facility] Urine Cultureon 03-10-2023 Bacteria identified Cx Nom (U) >100,000 colonies/ml mixed bacterial skin contaminants 2 Days PERFORMED BY: [address] [place] [address] [place] [address] PATHOLOGIST BUILDING [employer] INSPECTOR ANDRÉS MACEDO M.D. Normal [facility] Comment on above: Performed By: #### A DDONUAPLUS, CUU #### [facility] [address] Urine bacteria detection by automated methodOrdered By: Jacky Alarcon on 03-10-2023 Bacteria Auto Ql (U) Rare None Seen [facility] Urine clarity by refractomet ry automatedOrdered By: Jacky Alarcon on 03-10-2023 Clarity Refractometry automated (U) Turbid Clear [facility] Urine glucose measurement by automated test strip (mass/volume)Ordered By: Jacky Alarcon on 03-10-2023 Glucose Auto test strip (U) [Mass/Vol] Normal mg/dL Normal [facility] Urine hemoglobin detection b y automated test stripOrdered By: Jacky Alarcon on 03-10-2023 Hemoglobin Auto test strip Ql (U) 3+ Negative [facility] Urine leukocyte esterase det ection by automated test stripOrdered By: Jacky Alarcon on 03-10-2023 Leukocyte esterase Auto test strip Ql (U) 1+ Negative [facility] Urine sediment crystal ident ification by light microscopyOrdered By: Jacky Alarcon on 03-10-2023 Crystals LM Nom (Urine sed) See comment [facility] Comment on above: sulfa crystals Urobilinogen Auto test strip (U) [Mass/Vol]Ordered By: Jacky Alarcon on 03-10-2023 Urobilinogen (U) [Mass/Vol] Normal mg/dL Normal [facility] WBC Auto (Bld) [#/Vol]Ordere d By: Jacky Alarcon on 03-10-2023 WBC (Bld) [#/Vol] 16.0 10*3/uL 3.8-11.6 [facility] pH Auto test strip (U)Ordere d By: Jacky Alarcon on 03-10-2023 pH (U) 6.5 [pH] 5.0-9.[address] [facility] CBC AUTO DIFFon 07-30-2022 BASO # 0.1 103/ul Normal 0.0-0.1 [facility] Comment on above: Performed By: #### G TT3P #### [facility] [address] [address] [address] Jackelyn Celestin Basophils/100 WBC (Bld) 0.6 % Normal 0.2-2.0 [facility] Comment on above: Performed By: #### G TT3P #### [facility] [address] [place] [address] Dr. Jackelyn Celestin EO # 0.2 103/ul Normal 0.0-0.7 [facility] Comment on above: Performed By: #### G TT3P #### [facility] [address] [place] [address] Dr. Jackelyn Celestin Eosinophils/100 WBC (Bld) 1.5 % Normal 0.9-7.0 [facility] Comment on above: Performed By: #### G TT3P #### [facility] [address] [place] [address] Dr. Jackelyn Celestin Erythrocyte distribution width (RBC) [Ratio] 14.5 % Normal 11.0-15.0 [facility] Comment on above: Performed By: #### G TT3P #### [facility] [address] [place] [address] Dr. Jackelyn Celestin Hematocrit (Bld) [Volume fraction] 33.9 % Critically low 36.0-48.0 [facility] Comment on above: Performed By: #### G TT3P #### [facility] [address] [place] [address] Dr. Jackelyn Celestin Hemoglobin (Bld) [Mass/Vol] 11.0 g/dL Critically low 12.0-16.0 [facility] Comment on above: Performed By: #### G TT3P #### [facility] [address] [place] [address] Dr. Jackelyn Celestin IG # 0.13 10e3/ul Critically high 0.00-0.03 [facility] Comment on above: Performed By: #### G TT3P #### [facility] [address] [place] [address] Dr. Jackelyn Celestin IG % 1.1 % Critically high 0.0-0.5 [facility] Comment on above: Performed By: #### G TT3P #### [facility] [address] [place] [address] Dr. Jackelyn Celestin LYMPH # 2.2 103/ul Normal 1.2-3.8 [facility] Comment on above: Performed By: #### G TT3P #### [facility] [address] [place] [address] Dr. Jackelyn Celestin Lymphocytes/100 WBC (Bld) 17.9 % Critically low 20.5-60.0 [facility] Comment on above: Performed By: #### G TT3P #### [facility] [address] [place] [address] Dr. Jackelyn Celestin MANUAL DIFF REQ NO Normal [facility] Comment on above: Performed By: #### G TT3P #### [facility] [address] [place] [address] Dr. Jackelyn Celestin MCH (RBC) [Entitic mass] 28.6 pg Normal 26.7-34.0 [facility] Comment on above: Performed By: #### G TT3P #### [facility] [address] [place] [address] Dr. Jackelyn Celestin MCHC (RBC) [Mass/Vol] 32.4 g/dL Normal 29.9-35.2 [facility] Comment on above: Performed By: #### G TT3P #### [facility] [address] [place] [address] Dr. Jackelyn Celestin MCV (RBC) [Entitic vol] 88.1 fL Normal 81.0-99.0 [facility] Comment on above: Performed By: #### G TT3P #### [facility] [address] [place] [address] Dr. Jackelyn Celestin MONO # 0.8 103/ul Normal 0.3-0.8 [facility] Comment on above: Performed By: #### G TT3P #### [facility] [address] [place] [address] Dr. Jackelyn Celestin Monocytes/100 WBC (Bld) 6.9 % Normal 1.7-12.0 [facility] Comment on above: Performed By: #### G TT3P #### [facility] [address] [place] [address] Dr. Jackelyn Celestin NEUT # 8.7 103/ul Critically high 1.4-6.5 [facility] Comment on above: Performed By: #### G TT3P #### [facility] [address] [place] [address] Dr. Jackelyn Celestin Neutrophils/100 WBC (Bld) 72.0 % Normal 43.0-75.0 [facility] Comment on above: Performed By: #### G TT3P #### [facility] [address] [place] [address] Dr. Jackelyn Celestin Platelet mean volume (Bld) [Entitic vol] 11.5 fL Normal 9.5-13.5 [facility] Comment on above: Performed By: #### G TT3P #### [facility] [address] [place] [address] Dr. Jackelyn Celestin PLT 146 103/ul Critically low 150-450 [facility] Comment on above: Performed By: #### G TT3P #### [facility] [address] [place] [address] Dr. Jackelyn Celestin RBC 3.85 106/ul Critically low 4.20-5.40 [facility] Comment on above: Performed By: #### G TT3P #### [facility] [address] [place] [address] Dr. Jackelyn Celestin WBC 12.1 103/ul Critically high 4.0-11.0 [facility] Comment on above: Performed By: #### G TT3P #### [facility] [address] [place] [address] Dr. Jackelyn Celestin CBC AUTO DIFFon 07-29-2022 BASO # 0.0 103/ul Normal 0.0-0.1 [facility] Comment on above: Performed By: #### [id number] #### [facility] [address] [place] [address] Dr. Jackelyn Celestin Basophils/100 WBC (Bld) 0.4 % Normal 0.2-2.0 [facility] Comment on above: Performed By: #### 4 [id number] #### [facility] [address] [place] [address] Dr. Jackelyn Celestin EO # 0.2 103/ul Normal 0.0-0.7 [facility] Comment on above: Performed By: #### [id number] #### [facility] [address] [place] [address] Dr. Jackelyn Celestin Eosinophils/100 WBC (Bld) 1.4 % Normal 0.9-7.0 [facility] Comment on above: Performed By: #### 4 [id number] #### [facility] [address] [place] [address] Dr. Jackelyn Celestin Erythrocyte distribution width (RBC) [Ratio] 14.1 % Normal 11.0-15.0 [facility] Comment on above: Performed By: #### 4 [id number] #### [facility] [address] [place] [address] Dr. Jackelyn Celestin Hematocrit (Bld) [Volume fraction] 36.0 % Normal 36.0-48.0 [facility] Comment on above: Performed By: #### 4 [id number] #### [facility] [address] [place] [address] Dr. Jackelyn Celestin Hemoglobin (Bld) [Mass/Vol] 12.2 g/dL Normal 12.0-16.0 [facility] Comment on above: Performed By: #### [id number] #### [facility] [address] [place] [address] Dr. Jackelyn Celestin IG # 0.10 10e3/ul Critically high 0.00-0.03 [facility] Comment on above: Performed By: #### 4 [id number] #### [facility] [address] [place] [address] Dr. Jackelyn Celestin IG % 0.9 % Critically high 0.0-0.5 [facility] Comment on above: Performed By: #### 4 [id number] #### [facility] [address] [place] [address] Dr. Jackelyn Celestin LYMPH # 1.9 103/ul Normal 1.2-3.8 [facility] Comment on above: Performed By: #### 4 [id number] #### [facility] [address] [place] [address] Dr. Jackelyn Celestin Lymphocytes/100 WBC (Bld) 17.7 % Critically low 20.5-60.0 [facility] Comment on above: Performed By: #### 4 [id number] #### [facility] [address] [place] [address] Dr. Jackelyn Celestin MANUAL DIFF REQ NO Normal [facility] Comment on above: Performed By: #### 4 [id number] #### [facility] [address] [place] [address] Dr. Jackelyn Celestin MCH (RBC) [Entitic mass] 28.8 pg Normal 26.7-34.0 [facility] Comment on above: Performed By: #### 4 [id number] #### [facility] [address] [place] [address] Dr. Jackelyn Celestin MCHC (RBC) [Mass/Vol] 33.9 g/dL Normal 29.9-35.2 [facility] Comment on above: Performed By: #### 4 [id number] #### [facility] [address] [place] [address] Dr. Jackelyn Celestin MCV (RBC) [Entitic vol] 84.9 fL Normal 81.0-99.0 [facility] Comment on above: Performed By: #### [id number] #### [facility] [address] [place] [address] Dr. Jackelyn Celestin MONO # 0.9 103/ul Critically high 0.3-0.8 [facility] Comment on above: Performed By: #### 4 [id number] #### [facility] [address] [place] [address] Dr. Jackelyn Celestin Monocytes/100 WBC (Bld) 8.4 % Normal 1.7-12.0 [facility] Comment on above: Performed By: #### 4 [id number] #### [facility] [address] [place] [address] Dr. Jackelyn Celestin NEUT # 7.7 103/ul Critically high 1.4-6.5 [facility] Comment on above: Performed By: #### 4 [id number] #### [facility] [address] [place] [address] Dr. Jackelyn Celestin Neutrophils/100 WBC (Bld) 71.2 % Normal 43.0-75.0 [facility] Comment on above: Performed By: #### 4 [id number] #### [facility] [address] [place] [address] Dr. Jackelyn Celestin Platelet mean volume (Bld) [Entitic vol] 10.9 fL Normal 9.5-13.5 [facility] Comment on above: Performed By: #### [id number] #### [facility] [address] [place] [address] Dr. Jackelyn Celestin PLT 170 103/ul Normal 150-450 [facility] Comment on above: Performed By: #### 4 [id number] #### [facility] [address] [place] [address] Dr. Jackelyn Celestin RBC 4.24 106/ul Normal 4.20-5.40 [facility] Comment on above: Performed By: #### 4 [id number] #### [facility] [address] [place] [address] Dr. Jackelyn Celestin WBC 10.8 103/ul Normal 4.0-11.0 [facility] Comment on above: Performed By: #### 4 [id number] #### [facility] [address] [place] [address] Dr. Jackelyn Celestin DRUG SCREEN RAPID (URINE)on 07-29-2022 AMP Negative Normal NEGATIVE [facility] Comment on above: Performed By: #### [id number] #### [facility] [address] [place] [address] Dr. Jackelyn Celestin BAR Negative Normal NEGATIVE [facility] Comment on above: Performed By: #### 4 [id number] #### [facility] [address] [place] [address] Dr. Jackelyn Celestin BUP Negative Normal NEGATIVE [facility] Comment on above: Performed By: #### [id number] #### [facility] [address] [place] [address] Dr. Jackelyn Celestin BZO Negative Normal NEGATIVE [facility] Comment on above: Performed By: #### 4 [id number] #### [facility] [address] [place] [address] Dr. Jackelyn Celestin HOMERO Negative Normal NEGATIVE [facility] Comment on above: Performed By: #### 4 [id number] #### [facility] [address] [place] [address] Dr. Jackelyn Celestin CUT-OFFS SEE BELOW Normal [facility] Comment on above: Result Comment: AMP (Amphetamine): 500ng/mL, BAR (Barbituates): 200 ng/mL, BZO (Benzodiazepines): 150 ng/mL, BUP (Buprenorphine): 10 ng/mL, HOMERO (Cocaine): 150 ng/mL, mAMP (Methamphetamine): 500 ng/mL, MTD (Methadone): 200 ng/mL, OPI (Opiates): 100 ng/mL, OXY (Oxycodone): 100 ng/mL, PCP (Phencyclidine): 25 ng/mL, PPX (Propoxyphene): 300 ng/mL, THC (Cannabinoids): 50 ng/mL, TCA (Trycyclic Antidepressants): 300 ng/mL Performed By: #### [id number] #### [facility] [address] [place] [address] Dr. Jackelyn Celestin DRUG CUT HEADER DRUG CLASS TEST SYST EM CUT-OFF CONCENTRATIONS ARE FOLLOWS: Normal [facility] Comment on above: Performed By: #### [id number] #### [facility] [address] [place] [address] Dr. Jackelyn Celestin mAMP Negative Normal NEGATIVE [facility] Comment on above: Performed By: #### 4 [id number] #### [facility] [address] [place] [address] Dr. Jackelyn Celestin MTD Negative Normal NEGATIVE [facility] Comment on above: Performed By: #### [id number] #### [facility] [address] [place] [address] Dr. Jackelyn Celestin OPI Negative Normal NEGATIVE [facility] Comment on above: Performed By: #### 4 [id number] #### [facility] [address] [place] [address] Dr. Jackelyn Celestin OXY Negative Normal NEGATIVE [facility] Comment on above: Performed By: #### [id number] #### [facility] [address] [place] [address] Dr. Jackelyn Celestin PCP Negative Normal NEGATIVE [facility] Comment on above: Performed By: #### 4 [id number] #### [facility] [address] [place] [address] Dr. Jackelyn Celestin PPX Negative Normal NEGATIVE [facility] Comment on above: Performed By: #### 4 [id number] #### [facility] [address] [place] [address] Dr. Jackelyn Celestin TCA Negative Normal NEGATIVE [facility] Comment on above: Performed By: #### 4 [id number] #### [facility] [address] [place] [address] Dr. Jackelyn Celestin THC Negative Normal NEGATIVE [facility] Comment on above: Performed By: #### 4 [id number] #### [facility] [address] [place] [address] Dr. Jackelyn Celestin TYPE AND SCREENon 07-29-2022 TYPE AND SCREEN Negative Normal [facility] Comment on above: Performed By: #### G TT3P #### [facility] [address] [place] [address] Dr. Jackelyn Celestin US PREG GROWTHon 07-25-2022 [...] TRISTAN HART Date: 2022-07-24 22:37 Normal [facility] GROUP B STREP CULTUREon 06-09 S. agalactiae Ag Ql (Unsp spec) Culture Observations: NEGATIVE FOR GROUP B STREPTOCOCCUS. Normal [facility] Comment on above: Performed By: #### G TT3P #### [facility] [address] [place] [address] Dr. Jackelyn Celestin US PREG GROWTHon 06-06-2022 [...] TRISTAN HART Date: 2022-06-06 15:39 Normal [facility] GTT 3 HR PREGon 05-21-2022 Glucose [Mass/Vol] 91 mg/dL Normal 74-106 [facility] Comment on above: Performed By: #### G TT3P #### [facility] [address] [place] [address] Dr. Jackelyn Celestin Glucose [Mass/Vol] 168 mg/dL Normal [facility] Comment on above: Performed By: #### G TT3P #### [facility] [address] [address] [address] Jackelyn Celestin Glucose [Mass/Vol] 121 mg/dL [facility] Comment on above: Performed By: #### G TT3P #### [facility] [address] [place] [address] Dr. Jackelyn Celestin Glucose [Mass/Vol] 86 mg/dL [facility] Comment on above: Performed By: #### G TT3P #### [facility] [address] [place] [address] Dr. Jackelyn Celestin PAP ACOG PANEL 2: 21 to 29on 05-17-2022 . . Normal [facility] Comment on above: Performed By: #### [id number] #### [facility] [address] [place] [address] Dr. Jackelyn Celestin DIAGNOSIS: Comment [facility] Comment on above: Result Comment: NEGA TIVE FOR INTRAEPITHELIAL LESION OR MALIGNANCY. Performed By: #### 4 [id number] #### [facility] [address] [place] [address] Dr. Jackelyn Celestin Methodology: Comment [facility] Comment on above: Result Comment: This liquid based ThinPrep(R) pap test was screened with the use of an image guided system. Performed By: #### 4 [id number] #### [facility] [address] [place] [address] Dr. Jackelyn Celestin Note: Comment [facility] Comment on above: Result Comment: The Pap smear is a screening test designed to aid in the detection of premalignant and malignant conditions of the uterine cervix. It is not a diagnostic procedure and should not be used as the sole means of detecting cervical cancer. Both false-positive and false-negative reports do occur. . Performed By: #### 4 [id number] #### [facility] [address] [place] [address] Dr. Jackelyn Celestin Performed by: Comment [facility] Comment on above: Result Comment: Alphonso Walker, Senior Salesforce Developer (ASCP) Performed By: #### 4 [id number] #### [facility] [address] [place] [address] Dr. Jackelyn Celestin Reflex Criteria: Comment Normal [facility] Comment on above: Result Comment: The HPV DNA reflex criteria were not met with this specimen result therefore, no HPV testing was performed. . Performed By: #### 4 [id number] #### [facility] [address] [place] [address] Dr. Jackelyn Celestin Specimen adequacy: Comment Normal [facility] Comment on above: Result Comment: Sati sfactory for evaluation. No endocervical component is identified. Performed By: #### 4 [id number] #### [facility] [address] [place] [address] Dr. Jackelyn Celestin Age Gdln ACOG Testing 21-29 Normal [facility] Comment on above: Performed By: #### 4 [id number] #### [facility] [address] [place] [address] Dr. Jackelyn Celestin CHLAMYDIA/GONOCOCCUS ALONDRA ( AB/URINE/PAPon 05-14-2022 Chlamydia trachomatis, ALONDRA Negative Normal Negative [facility] Comment on above: Performed By: #### G TT3P #### [facility] [address] [place] [address] Dr. Jackelyn Celestin Neisseria gonorrhoeae, ALONDRA Negative Normal Negative [facility] Comment on above: Performed By: #### G TT3P #### [facility] [address] [place] [address] Dr. Jackelyn Celestin VAGINITIS/VAGINOSIS DNA PROB Dean 05-13-2022 Thao species Negative Normal Negative [facility] Comment on above: Performed By: #### 4 [id number] #### [facility] [address] [place] [address] Dr. Jackelyn Celestin Gardnerella vaginalis Negative Normal Negative [facility] Comment on above: Performed By: #### [id number] #### [facility] [address] [place] [address] Dr. Jackelyn Celestin Trichomonas vaginalis Negative Normal Negative [facility] Comment on above: Performed By: #### 4 [id number] #### [facility] [address] [place] [address] Dr. Jackelyn Celestin CBC AUTO DIFFon 05-09-2022 BASO # 0.0 103/ul Normal 0.0-0.1 [facility] Comment on above: Performed By: #### C BC #### [facility] [address] [place] [address] Dr. Jackelyn Celestin Basophils/100 WBC (Bld) 0.3 % Normal 0.2-2.0 [facility] Comment on above: Performed By: #### C BC #### [facility] [address] [place] [address] Dr. Jackelyn Celestin EO # 0.1 103/ul Normal 0.0-0.7 [facility] Comment on above: Performed By: #### C BC #### [facility] [address] [place] [address] Dr. Jackelyn Celestin Eosinophils/100 WBC (Bld) 1.2 % Normal 0.9-7.0 [facility] Comment on above: Performed By: #### C BC #### [facility] [address] [place] [address] Dr. Jackelyn Celestin Erythrocyte distribution width (RBC) [Ratio] 11.9 % Normal 11.0-15.0 [facility] Comment on above: Performed By: #### C BC #### [facility] [address] [place] [address] Dr. Jackelyn Celestin Hematocrit (Bld) [Volume fraction] 33.7 % Critically low 36.0-48.0 [facility] Comment on above: Performed By: #### C BC #### [facility] [address] [place] [address] Dr. Jackelyn Celestin Hemoglobin (Bld) [Mass/Vol] 12.0 g/dL Normal 12.0-16.0 [facility] Comment on above: Performed By: #### C BC #### [facility] [address] [place] [address] Dr. Jackelyn Celestin IG # 0.07 10e3/ul Critically high 0.00-0.03 [facility] Comment on above: Performed By: #### C BC #### [facility] [address] [place] [address] Dr. Jackelyn Cleestin IG % 0.6 % Critically high 0.0-0.5 [facility] Comment on above: Performed By: #### C BC #### [facility] [address] [place] [address] Dr. Jackelyn Celestin LYMPH # 1.3 103/ul Normal 1.2-3.8 [facility] Comment on above: Performed By: #### C BC #### [facility] [address] [place] [address] Dr. Jackelyn Celestin Lymphocytes/100 WBC (Bld) 11.5 % Critically low 20.5-60.0 [facility] Comment on above: Performed By: #### C BC #### [facility] [address] [place] [address] Dr. Jackelyn Celestin MANUAL DIFF REQ NO Normal [facility] Comment on above: Performed By: #### C BC #### [facility] [address] [place] [address] Dr. Jackelyn Celestin MCH (RBC) [Entitic mass] 31.0 pg Normal 26.7-34.0 [facility] Comment on above: Performed By: #### C BC #### [facility] [address] [place] [address] Dr. Jackelyn Celestin MCHC (RBC) [Mass/Vol] 35.6 g/dL Critically high 29.9-35.2 [facility] Comment on above: Performed By: #### C BC #### [facility] [address] [place] [address] Dr. Jackelyn Celestin MCV (RBC) [Entitic vol] 87.1 fL Normal 81.0-99.0 [facility] Comment on above: Performed By: #### C BC #### [facility] [address] [place] [address] Dr. Jackelyn Celestin MONO # 0.5 103/ul Normal 0.3-0.8 [facility] Comment on above: Performed By: #### C BC #### [facility] [address] [place] [address] Dr. Jackelyn Celestin Monocytes/100 WBC (Bld) 4.8 % Normal 1.7-12.0 [facility] Comment on above: Performed By: #### C BC #### [facility] [address] [place] [address] Dr. Jackelyn Celestin NEUT # 8.9 103/ul Critically high 1.4-6.5 [facility] Comment on above: Performed By: #### C BC #### [facility] [address] [place] [address] Dr. Jackelyn Celestin Neutrophils/100 WBC (Bld) 81.6 % Critically high 43.0-75.0 [facility] Comment on above: Performed By: #### C BC #### [facility] [address] [place] [address] Dr. Jackelyn Celestin Platelet mean volume (Bld) [Entitic vol] 11.3 fL Normal 9.5-13.5 [facility] Comment on above: Performed By: #### C BC #### [facility] [address] [place] [address] Dr. Jackelyn Celestin PLT 171 103/ul Normal 150-450 [facility] Comment on above: Performed By: #### C BC #### [facility] [address] [place] [address] Dr. Jackelyn Celestin RBC 3.87 106/ul Critically low 4.20-5.40 [facility] Comment on above: Performed By: #### C BC #### [facility] [address] [place] [address] Dr. Jackelyn Celestin WBC 10.9 103/ul Normal 4.0-11.0 [facility] Comment on above: Performed By: #### C BC #### [facility] [address] [place] [address] Dr. Jackelyn Celestin GLUCOSE - 1HRon 05-09-2022 Glucose [Mass/Vol] 142 mg/dL Critically high 74-106 [facility] Comment on above: Performed By: #### 4 [id number] #### [facility] [address] [place] [address] Dr. Jackelyn Celestin US PREG BIOPHY W [...] HART Date: 2022-05-09 10:35 Normal [facility] US PREG PLACENTAon US PREG PLACENTA EXAMINATION: US PREG PLACENTA HISTORY: Falls ; mild cramping after falling COMPARISON: Ultrasound anatomy 03/17/2022 FINDINGS: PLACENTA: Posterior without previa, subchorionic hematoma, or abruption. CERVIX LENGTH: Not evaluated. HEART RATE: 158 bpm OTHER: None. IMPRESSION: 1. Unremarkable posterior placenta. No suspicious findings. Electronically authenticated by: TRISTAN HART Date: 2022-05-09 10:29 Normal [facility] US PREG ANATOMY SINGLEon US [...] TRISTAN HART Date: 2022-03-17 16:29 Normal [facility] HEP B SURFACE ANTIGEN SCREEN on 02-15-2022 HBsAg Screen Negative Normal Negative [facility] Comment on above: Performed By: #### [id number] #### [facility] [address] [address] [address] Jackelyn Celestin HEPATITIS C VIRUS AB W/ REFL EX QUANTon 02-15-2022 HCV AB <0.1 Normal 0.0-0.9 [facility] Comment on above: Performed By: #### H CVPCRR #### [facility] [address] [place] [address] Dr. Jackelyn Celestin Interpretation: Comment Normal [facility] Comment on above: Result Comment: Nega tive Not infected with HCV, unless recent infection is suspected or other evidence exists to indicate HCV infection. Performed By: #### H CVPCRR #### [facility] [address] [address] [address] Jackelyn Celestin HIV 1 AND 2 WITH REFLEXon HIV Screen 4th Generation wRfx Non-Reactive Normal Non Reactive [facility] Comment on above: Result Comment: HIV Negative HIV-1/HIV-2 antibodies and HIV-1 p24 antigen were NOT detected. There is no laboratory evidence of HIV infection. Performed By: #### H IV12 #### [facility] [address] [place] [address] Dr. Jackelyn Celestin RPR QUANTon 02-15-2022 Rapid Plasma Reagin, Quant Non-Reactive Normal NonRea<1:1 [facility] Comment on above: Result Comment: Plea se Note: This test does not meet current guidelines for screening and diagnosis of syphilis. This test is intended for following treatment response in patients being treated for syphilis infection. To screen for syphilis infection, a reflex cascade that includes both RPR and a treponema-specific assay should be utilized, such as Treponema pallidum (Syphilis) Screening Boyd (903195) or Rapid Plasma Reagin (RPR) Test With Reflex to Quantitative RPR and Confirmatory Treponema pallidum Antibodies (688407). Performed By: #### R PRQ #### [facility] [address] [place] [address] Dr. Jackelyn Celestin RUBELLA AB IGGon 02-15-2022 Rubella Antibodies, IgG 1.97 index Normal Immune >0.99 [facility] Comment on above: Result Comment: Non- immune <0.90 Equivocal 0.90 - 0.99 Immune >0.99 Performed By: #### R UBIGG #### [facility] [address] [place] [address] Dr. Jackelyn Celestin CBC AUTO DIFFon 02-12-2022 BASO # 0.0 103/ul Normal 0.0-0.1 [facility] Comment on above: Performed By: #### C BC #### [facility] [address] [place] [address] Dr. Jackelyn Celestin Basophils/100 WBC (Bld) 0.4 % Normal 0.2-2.0 [facility] Comment on above: Performed By: #### C BC #### [facility] [address] [place] [address] Dr. Jackelyn Celestin EO # 0.2 103/ul Normal 0.0-0.7 [facility] Comment on above: Performed By: #### C BC #### [facility] [address] [place] [address] Dr. Jackelyn Celestin Eosinophils/100 WBC (Bld) 2.0 % Normal 0.9-7.0 [facility] Comment on above: Performed By: #### C BC #### [facility] [address] [place] [address] Dr. Jackelyn Celestin Erythrocyte distribution width (RBC) [Ratio] 12.8 % Normal 11.0-15.0 [facility] Comment on above: Performed By: #### C BC #### [facility] [address] [place] [address] Dr. Jackelyn Celestin Hematocrit (Bld) [Volume fraction] 40.7 % Normal 36.0-48.0 [facility] Comment on above: Performed By: #### C BC #### [facility] [address] [place] [address] Dr. Jackelyn Celestin Hemoglobin (Bld) [Mass/Vol] 14.4 g/dL Normal 12.0-16.0 [facility] Comment on above: Performed By: #### C BC #### [facility] [address] [place] [address] Dr. Jackelyn Celestin IG # 0.05 10e3/ul Critically high 0.00-0.03 [facility] Comment on above: Performed By: #### C BC #### [facility] [address] [place] [address] Dr. Jackelyn Celestin IG % 0.4 % Normal 0.0-0.5 [facility] Comment on above: Performed By: #### C BC #### [facility] [address] [place] [address] Dr. Jackelyn Celestin LYMPH # 1.7 103/ul Normal 1.2-3.8 [facility] Comment on above: Performed By: #### C BC #### [facility] [address] [place] [address] Dr. Jackelyn Celestin Lymphocytes/100 WBC (Bld) 15.1 % Critically low 20.5-60.0 [facility] Comment on above: Performed By: #### C BC #### [facility] [address] [place] [address] Dr. Jackelyn Celestin MANUAL DIFF REQ NO Normal [facility] Comment on above: Performed By: #### C BC #### [facility] [address] [place] [address] Dr. Jackelyn Celestin MCH (RBC) [Entitic mass] 31.2 pg Normal 26.7-34.0 [facility] Comment on above: Performed By: #### C BC #### [facility] [address] [place] [address] Dr. Jackelyn Celestin MCHC (RBC) [Mass/Vol] 35.4 g/dL Critically high 29.9-35.2 [facility] Comment on above: Performed By: #### C BC #### [facility] [address] [place] [address] Dr. Jackelyn Celestin MCV (RBC) [Entitic vol] 88.1 fL Normal 81.0-99.0 [facility] Comment on above: Performed By: #### C BC #### [facility] [address] [place] [address] Dr. Jackelyn Celestin MONO # 0.4 103/ul Normal 0.3-0.8 [facility] Comment on above: Performed By: #### C BC #### [facility] [address] [place] [address] Dr. Jackelyn Celestin Monocytes/100 WBC (Bld) 3.3 % Normal 1.7-12.0 [facility] Comment on above: Performed By: #### C BC #### [facility] [address] [place] [address] Dr. Jackelyn Celestin NEUT # 8.8 103/ul Critically high 1.4-6.5 [facility] Comment on above: Performed By: #### C BC #### [facility] [address] [place] [address] Dr. Jackelyn Celestin Neutrophils/100 WBC (Bld) 78.8 % Critically high 43.0-75.0 [facility] Comment on above: Performed By: #### C BC #### [facility] [address] [place] [address] Dr. Jackelyn Celestin Platelet mean volume (Bld) [Entitic vol] 11.6 fL Normal 9.5-13.5 [facility] Comment on above: Performed By: #### C BC #### [facility] [address] [place] [address] Dr. Jackelyn Celestin PLT 203 103/ul Normal 150-450 [facility] Comment on above: Performed By: #### C BC #### [facility] [address] [place] [address] Dr. Jackelyn Celestin RBC 4.62 106/ul Normal 4.20-5.40 [facility] Comment on above: Performed By: #### C BC #### [facility] [address] [place] [address] Dr. Jackelyn Celestin WBC 11.2 103/ul Critically high 4.0-11.0 [facility] Comment on above: Performed By: #### C BC #### [facility] [address] [place] [address] Dr. Jackelyn Celestin CULTURE URINEon 02-12-2022 CULTURE URINE Culture Observations : NO GROWTH. Normal [facility] Comment on above: Performed By: #### U RCX #### [facility] [address] [place] [address] Dr. Jackelyn Celestin GLYCOHEMOGLOBIN A1Con 2021 ADA RECOMMENDATION SEE BELOW Normal [facility] Comment on above: Result Comment: ADA RECOMMENDED LIMIT 4.0 - 6.0 ADA THERAPEUTIC TARGET < 7.0 ACTION SUGGESTED > 7.0 Performed By: #### 4 [id number] #### [facility] [address] [place] [address] Dr. Jackelyn Celestin Glucose [Mass/Vol] 94 mg/dL Normal [facility] Comment on above: Performed By: #### 4 [id number] #### [facility] [address] [place] [address] Dr. Jackelyn Celestin HbA1c (Bld) [Mass fraction] 4.9 % Normal 4.5-6.2 [facility] Comment on above: Performed By: #### 4 [id number] #### [facility] [address] [place] [address] Dr. Jackelyn Celestin TYPE AND SCREENon 02-12-2022 TYPE AND SCREEN Negative Normal [facility] Comment on above: Performed By: #### T NS #### [facility] [address] [place] [address] Dr. Jackelyn Celestin US PREG TVon 01-21-2022 [...] AGUILAR Date: 2022-01-21 16:41 Normal [facility] Coding Summary.on 12-12-2019 Coding Summary. CODING DATE: 020 FINAL [facility] STATUS: Home (Routine DC) PAYOR: Self [...] CphT Date Saved: 12/12/2019 10:59 am Normal [facility] Family Medicine Office/Clini c Noteon 11-21-2019 Family [...] day(s), # 20 tab(s), Refills(s) 0, Pharmacy: [facility], 159, cm, 11/21/19 19:13:00 EDT, Height/Length Dosing, 96, kg, 11/21/19 19:13:00 EDT, Weight Dosing Follow-up No qualifying data available Patient Education Body Mass Index, BMI DASH Diet MyPlate from [employer] Obesity Otitis Media, Adult Problem List/Past Medical [...] cancer: Grandparent. Hypertension: Grandparent. Stroke: Grandparent. Normal [facility] Comment on above: Result Comment: Elec tronically [...] Document Reviewed: 01/04/2006 ExitCare? Patient Information ?2014 [employer]. DASH Diet The DASH diet stands for [...] beef, chicken breast, turkey breast. All fish. [place], bake, or broil your meat. Nothing should [...] Document Reviewed: 03/15/2012 ExitCare? Patient Information ?2013 [employer]. [email or web address], [employer] The amount you need to eat from [...] Document Reviewed: 06/16/2008 ExitCare? Patient Information ?2013 [employer] [facility]. Family Medicine Obesity Obesity is defined [...] Document Reviewed: 05/02/2012 ExitCare? Patient Information ?2013 [employer]. Otitis Media, Adult A middle ear infection [...] the first few days. ? Only take [id number] or prescription medicines for pain, discomfort, or [...] Document Reviewed: 10/31/2008 ExitCare? Patient Information ?2013 [employer]. Normal [facility] SARS-CoV-2, NAAon 11-20-2019 SARS CORONAVIRUS 2 RNA:PRTHR:PT:RESPIRATO RY:ORD:PROBE.AMP.TAR Not Detected Not Detected [facility] Comment on above: Result Comment: This test was developed and its performance characteristics determined by [employer]. This test has not been FDA cleared [...] detected) result in this assay. Performed at: [facility] [address] [facility] [place] [id number] MD Malaika Velez Performed By: #### S ARS-CoV-2, ALONDRA #### [facility] [address] [place] [address] [facility] Medicine Video Visit - Telehealthon 11-16-2019 [...] interactive video communications from my office using [employer] due to the restrictions of the COVID-19 pandemic. No physical exam was conducted other than those areas of the body visible to telecommunications with the patient located at [address] [phone], with no one else in attendance. If [...] cancer: Grandparent. Hypertension: Grandparent. Stroke: Grandparent. Normal [facility] Comment on above: Result Comment: Elec tronically Signed By: Abbey ESTRADA CNP\.ynes\Date and Time Signed: 11/16/19 14:27 EDT URINE CULTUREon 07-10-2017 Urine culture, bacteria SPECIMEN DESCRIPTION URINE CLEAN CATCHUA DIPSTICK NITRITE NEGATIVE * Result Note: LEUKOCYTE NEGATIVE *CULTURE ESCHERICHIA COLI * Result Note: 50,000 C/C/ML * * Result Note: Testing performed at [facility], [place], [place] [address] *REPORT STATUS 07/10/2017 * Result Note: FINAL * O RGANISM ESCHERICHIA COLI * Result Note: ESCHERICHIA COLI *METHOD MICAMPICILLIN <=2 SUSCEPTIBLEAMPICILLIN/SULBA CTAM <=2 SUSCEPTIBLECEFTRIAXONE <=1 SUSCEPTIBLECEFAZOLIN <=4 SUSCEPTIBLEIMIPENEM <=0.25 SUSCEPTIBLEGENTAMICIN <=1 SUSCEPTIBLETRIMETH-SULFA <=20 SUSCEPTIBLEAMOXICILLIN/CLAV ULANIC A <=2 SUSCEPTIBLENITROFURANTOIN 32 SUSCEPTIBLEPIPERACILLIN/SADA OBACTAM <=4 SUSCEPTIBLELEVOFLOXACIN <=0.12 SUSCEPTIBLEESBL NEGATIVECEFTAZIDIME <=1 SUSCEPTIBLE Normal [facility] Comment on above: Performed By: #### A URNC ####Testing performed at [address] [id number] performed at [address] [address] BHCG,QUANTITATIVEon 07-08-19 18 BHCG,QUANTITATIVE 133.56 MIU/ML Normal [facility] Comment on above: Result Comment: [facility] [place] INTERPRETIVE RANGES: NON [...] #### A CBC, BHCG2 ####Testing performed at [address] [address] CBCon 07-07-2017 ABSOLUTE BAS 0.1 X10 Normal [facility] Comment on above: Performed By: #### A CBC, BHCG2 ####Testing performed at [address] [place] [address] ABSOLUTE EOS 0.20 X10 Normal [facility] Comment on above: Performed By: #### A CBC, BHCG2 ####Testing performed at [address] [place] [address] Basophils/100 WBC Auto (Bld) 0.6 % Normal 0.0-2.0 [facility] Comment on above: Performed By: #### A CBC, BHCG2 ####Testing performed at [address] [place] [address] DTYPE AUTO DIFF Normal [facility] Comment on above: Performed By: #### A CBC, BHCG2 ####Testing performed at [address] [place] [address] Eosinophils/100 leukocytes 2.0 % Normal 0.0-11.0 [facility] Comment on above: Performed By: #### A CBC, BHCG2 ####Testing performed at [address] [place] [address] Lymphocytes 2.00 X10 Normal [facility] Comment on above: Performed By: #### A CBC, CG2 ####Testing performed at [address] [place] [address] Lymphocytes/100 leukocytes 23.0 % Normal 20.0-55.0 [facility] Comment on above: Performed By: #### A CBC, BHCG2 ####Testing performed at [address] [place] [address] Monocytes 0.6 X10 Normal [facility] Comment on above: Performed By: #### A CBC, BHCG2 ####Testing performed at [address] [address] Monocytes/100 leukocytes 7.1 % Normal 0.0-10.0 [facility] Comment on above: Performed By: #### A CBC, BHCG2 ####Testing performed at [address] [place] [address] Neutrophils 5.9 x10 Normal 1.0-7.0 [facility] Comment on above: Performed By: #### A CBC, BHCG2 ####Testing performed at [address] [address] Neutrophils/100 leukocytes 67.3 % Normal 37.0-75.0 [facility] Comment on above: Performed By: #### A CBC, BHCG2 ####Testing performed at [address] [address] Erythrocyte distribution width Auto Ratio (RBC) 12.1 % Normal 11.5-14.5 [facility] Comment on above: Performed By: #### A CBC, BHCG2 ####Testing performed at [address] [address] Erythrocytes (RBC) 4.72 /cmm Normal 4.0-5.4 [facility] Comment on above: Performed By: #### A CBC BHCG2 ####Testing performed at [address] [address] Hematocrit (HCT) 43.2 % Normal 36.0-48.0 [facility] Comment on above: Performed By: #### A CBC, BHCG2 ####Testing performed at [address] [address] Hemoglobin mass conc (Bld) 15.1 g/dL Normal 12.0-16.0 [facility] Comment on above: Performed By: #### A CBC, BHCG2 ####Testing performed at [address] [address] MCH 32.0 pg Normal 26.0-35.0 [facility] Comment on above: Performed By: #### A CBC, BHCG2 ####Testing performed at [address] [address] MCHC mass conc (RBC) 35.0 g/dL Normal 27.0-37.[address] [facility] Comment on above: Performed By: #### A CBC, BHCG2 ####Testing performed at [address] [address] MCV 91.5 fL Normal 80.0-100.0 [facility] Comment on above: Performed By: #### A CBC, BHCG2 ####Testing performed at [address] [place] [address] Platelet mean volume (PMV) 9.2 fL Normal 7.4-11.0 [facility] Comment on above: Performed By: #### A CBCALEXANDRACG2 ####Testing performed at [address] [address] Platelets 235 /cmm Normal 130.0-400. 0 [facility] Comment on above: Performed By: #### A CBCALEXANDRACG2 ####Testing performed at [address] [address] WBC (Leukocytes) 8.8 /cmm Normal 3.6-11.0 [facility] Comment on above: Performed By: #### A CBCDAVIDG2 ####Testing performed at [address] [address] ED NOTEon 07-07-2017 [facility] NOTES Normal [facility] ED PROVIDERon 07-07-2017 [facility] NOTES Normal [facility] URINE MACROSCOPICon 07-08-19 18 Bilirubin Ql (U) Negative Normal NEGATIVE [facility] Comment on above: Performed By: #### U MAC, UMIC ####Testing performed at [address] [address] URINE HEMOGLOBIN LARGE Abnormal NEGATIVE [facility] Comment on above: Performed By: #### U MAC, UMIC ####Testing performed at [address] [address] URINE KETONE Negative Normal NEGATIVE [facility] Comment on above: Performed By: #### U MAC, UMIC ####Testing performed at [address] [address] URINE LEUKOTEST Negative Normal NEGATIVE [facility] Comment on above: Performed By: #### U MAC, UMIC ####Testing performed at [address] [address] URINE NITRATES Negative Normal NEGATIVE [facility] Comment on above: Performed By: #### U MAC, UMIC ####Testing performed at [address] [address] URINE SPEC GRAVITY 1.025 Normal 1.010-1.0 2 5 [facility] Comment on above: Performed By: #### U MAC, UMIC ####Testing performed at [address] [place] [address] URINE TOTAL PROTEIN Negative Normal NEGATIVE [facility] Comment on above: Performed By: #### U MAC, UMIC ####Testing performed at [address] [place] [address] Urine, clarity CLEAR Normal CLEAR [facility] Comment on above: Performed By: #### U MAC, UMIC ####Testing performed at [address] [place] [address] Urine, color YELLOW Normal YELLOW [facility] Comment on above: Performed By: #### U MAC, UMIC ####Testing performed at [address] [place] [address] Urine, glucose presence Negative Normal NEGATIVE [facility] Comment on above: Performed By: #### U MAC, UMIC ####Testing performed at [address] [place] [address] Urine, pH 7.0 [pH] Normal 5.0-7.0 [facility] Comment on above: Performed By: #### U MAC, UMIC ####Testing performed at [address] [place] [address] Urine, urobilinogen 1.0 mg/dl Normal 0.2-1.0 [facility] Comment on above: Performed By: #### U MAC, UMIC ####Testing performed at [address] [address] URINE MICROSCOPICon 03-30-20 18 CRYSTAL OCCASIONAL Abnormal NONE [facility] Comment on above: Result Comment: CHRIS PHOUS PHOSPHATES Performed By: #### U MAC, UMIC ####Testing performed at [address] [address] URINE COMMENT REFLEX CULTURE PER ESTABLISHED CRITERIA. Normal [facility] Comment on above: Performed By: #### U MAC, UMIC ####Testing performed at [address] [address] URINE WBC'S 1 TO 5 Normal NEGATIVE [facility] Comment on above: Performed By: #### U MAC, UMIC ####Testing performed at [address] [address] Urine, bacteria in sediment 1+ Abnormal NEGATIVE [facility] Comment on above: Performed By: #### U MAC, UMIC ####Testing performed at [address] [place] [address] Urine, casts in sediment NONE Normal NONE [facility] Comment on above: Performed By: #### U MAC, UMIC ####Testing performed at [address] [place] [address] Urine, epithelial cells in sediment 1 TO 5 Normal [facility] Comment on above: Performed By: #### U MAC, UMIC ####Testing performed at [address] [place] [address] Urine, erythrocytes 1 TO 5 Normal NEGATIVE [facility] Comment on above: Performed By: #### U MAC, UMIC ####Testing performed at [address] [place] [address] Urine, mucus presence in sediment Negative Normal NEGATIVE [facility] Comment on above: Performed By: #### U MAC, UMIC ####Testing performed at [address] [place] [address] BhCG Quanton 07-05-2017 HCG.beta subunit Qn 238.0 mIU/m Normal [facility] Comment on above: Result Comment: FEMA LE (NON-) & MALE <3 BORDERLINE 3 - 5 SUGGEST REPEAT TESTING FEMALE () 1 D - 1 WK 5 - 50 1 - 2 WK 50 - 500 2 - 3 WK 100 - 5000 3 - 4 WK 500 - 59968 4 - 5 WK 1000 - [address] 5 - 6 W[place] [address] - 706866 6 - 8 W[place] [address] - 936589 2 - 3 [place] [address] - 79[address]88 Performed By: #### 2 [id number] ####JIMMIE ObySqdt7829 [place] [address] Auto Diffon 07-04-2017 Basophils Auto #/vol (Bld) 0.1 E3/mcL Normal 0.0-0.2 [facility] Comment on above: Order Comment: Order Added by Discern Expert. Performed By: #### 2 [id number] ####JIMMIE ChsCmtc1139 [place] [address] Basophils/100 WBC Auto (Bld) 0.6 % Normal 0.0-2.0 [facility] Comment on above: Order Comment: Order Added by Discern Expert. Performed By: #### 2 [id number] ####JIMMIE DanWluIspb8736 [place] [address] Eos Absolute 0.3 E3/mcL Normal 0.0-0.7 [facility] Comment on above: Order Comment: Order Added by Discern Expert. Performed By: #### 2 714600 ####JIMMIE DanCzdJdjw4212 [place] [address] Eosinophils/100 leukocytes 2.5 % Normal 0.0-11.0 [facility] Comment on above: Order Comment: Order Added by Discern Expert. Performed By: #### 2 575294 ####JIMMIE DanEqxYuhn7260 [place] [address] Lymphocytes 2.3 E3/mcL Normal 1.2-3.4 [facility] Comment on above: Order Comment: Order Added by Discern Expert. Performed By: #### 2 672326 ####JIMMIE DanIauJhmf5356 [place] [address] Lymphocytes/100 leukocytes 22.2 % Normal 20.0-55.0 [facility] Comment on above: Order Comment: Order Added by Discern Expert. Performed By: #### 2 406051 ####JIMMIE DanMfdIzgi4782 [place] [address] Manati Absolute 0.8 E3/mcL High 0.0-0.7 [facility] Comment on above: Order Comment: Order Added by Discern Expert. Performed By: #### 2 771024 ####JIMMIE DanHhwBspc2187 [place] [address] Monocytes/100 leukocytes 7.6 % Normal 0.0-10.0 [facility] Comment on above: Order Comment: Order Added by Discern Expert. Performed By: #### 2 096028 ####JIMMIE DanCsoAqrp1668 [place] [address] Neutro Absolute 6.9 E3/mcL High 1.4-6.5 [facility] Comment on above: Order Comment: Order Added by Discern Expert. Performed By: #### 2 559068 ####JIMMIE DanIxdXedk3787 [place] [address] Neutro Auto 67.1 % Normal 37.0-75.0 [facility] Comment on above: Order Comment: Order Added by Discern Expert. Performed By: #### 2 766098 ####JIMMIE Ozunao1025 [place] [address] BMPon 07-04-2017 BUN/Creatinine Ratio 21.7 ratio Normal 5.4-30.0 [facility] Comment on above: Performed By: #### 2 [id number] ####JIMMIE AolPhua1389 [place] [address] Creatinine 0.6 mg/dL Normal 0.6-1.3 [facility] Comment on above: Performed By: #### 2 156433 ####JIMMIE IhdQoqx7649 [place] [address] Urea nitrogen 13 mg/dL Normal 7-18 [facility] Comment on above: Performed By: #### 2 570057 ####JIMMIE UwcJelq4249 [place] [address] Calcium 8.4 mg/dL Normal 8.4-10.2 [facility] Comment on above: Performed By: #### 2 333181 ####JIMMIE ClgHlun5546 [place] [address] Chloride 100 mmol/L Normal 98-107 [facility] Comment on above: Performed By: #### 2 013485 ####JIMMIE QcwAmvw1406 [place] [address] CO2 27.7 mmol/L Normal 24.0-30.0 [facility] Comment on above: Performed By: #### 2 298401 ####JIMMIEJonathan DanQqlVrfz9533 [place] [address] Glucose mass conc 98 mg/dL Normal 70-99 [facility] Comment on above: Performed By: #### 2 698575 ####JIMMIEJontahan DanKbhHdlq2992 [place] [address] Potassium molar conc 3.4 mmol/L Low 3.5-5.1 [facility] Comment on above: Performed By: #### 2 119989 ####JIMMIEJonathan GreshamNwtBnqe5544 [place] [address] Sodium 133 mmol/L Low 136-145 [facility] Comment on above: Performed By: #### 2 700892 ####JIMMIE YtfAlvo3762 [place] [address] BhCG Quanton 07-04-2017 HCG.beta subunit Qn 190.8 mIU/m Normal [facility] Comment on above: Result Comment: FEMA LE (NON-) & MALE <3 BORDERLINE 3 - 5 SUGGEST REPEAT TESTING FEMALE () 1 D - 1 WK 5 - 50 1 - 2 WK 50 - 500 2 - 3 WK 100 - 5000 3 - 4 WK 500 - [address] 4 - 5 WK 1000 - [address] 5 - 6 WK [address] - 374456 6 - 8 WK [address] - 208343 2 - 3 [place] [address] - 202904 Performed By: #### 2 997715 ####JIMMIEJonathan DanEevXqyj2284 [place] [address] CBC w/ Auto Diffon 8 Erythrocyte distribution width Auto Ratio (RBC) 11.6 % Normal 11.5-14.5 [facility] Comment on above: Performed By: #### 2 188257 ####JIMMIEJonathan DanNocNbzz6335 [place] [address] Erythrocytes (RBC) 4.43 E6/mcL Normal 3.90-5.40 [facility] Comment on above: Performed By: #### 2 154485 ####JIMMIEJonathan DanKipNdtb8499 [place] [address] Hematocrit (HCT) 40.1 % Normal 36.0-48.0 [facility] Comment on above: Performed By: #### 2 229434 ####JIMMIE DanQwjHnzh4255 [place] [address] Hemoglobin mass conc (Bld) 14.1 g/dL Normal 12.0-16.0 [facility] Comment on above: Performed By: #### 2 770311 ####JIMMIE DanOejHjwe4071 [place] [address] MCH 31.7 pg High 27.0-31.0 [facility] Comment on above: Performed By: #### 2 817857 ####JIMMIE Ozunao1025 [place] [address] MCHC mass conc (RBC) 35.1 g/dL Normal 33.0-37.0 [facility] Comment on above: Performed By: #### 2 992339 ####JIMMIE Ozunao1025 [place] [address] MCV 90.4 fL Normal 78.0-100.0 [facility] Comment on above: Performed By: #### 2 916265 ####JIMMIE Ozunao1025 [place] [address] Platelet mean volume (PMV) 8.4 fL Normal 7.4-11.0 [facility] Comment on above: Performed By: #### 2 246067 ####JIMMIE Ozunao1025 [place] [address] Platelets 232 E3/mcL Normal 130-400 [facility] Comment on above: Performed By: #### 2 990136 ####JIMMIE Ozunao1025 [place] [address] WBC (Leukocytes) 10.3 E3/mcL Normal 3.6-11.0 [facility] Comment on above: Performed By: #### 2 931845 ####JIMMIE Ozunao1025 [place] [address] Hep Func Panelon 07-04-2017 Alanine aminotransferase (ALT) 15 Int._Unit/L Normal 10-40 [facility] Comment on above: Performed By: #### 2 834504 ####JIMMIE Gresham1025 [place] [address] Albumin 3.8 g/dL Normal 3.2-5.0 [facility] Comment on above: Performed By: #### 2 914196 ####JIMMIE DanWwyWgwb9854 [place] [address] Albumin/Globulin Ratio 1.4 {ratio} Normal 1.1-1.9 [facility] Comment on above: Performed By: #### 2 862759 ####JIMMIE DanQwdNgke7215 [place] [address] Alk Phos 36 Int._Unit/L Low 42-121 [facility] Comment on above: Performed By: #### 2 586164 ####JIMMIE OchQbdr8724 [place] [address] Aspartate aminotransferase (AST) 18 Int._Unit/L Normal 10-42 [facility] Comment on above: Performed By: #### 2 006645 ####JIMMIE Gresham1025 [place] [address] Bili Direct <.10 Normal .00-.20 [facility] Comment on above: Performed By: #### 2 827838 ####JIMMIE HjkEakt8244 [place] [address] Bili Indirect >0.7 Normal [facility] Comment on above: Result Comment: No e stablished ranges available for the Indirect Biliruben. Performed By: #### 2 858460 ####JIMMIE MndIomt8343 [place] [address] Bili Total 0.8 mg/dL Normal 0.2-1.0 [facility] Comment on above: Performed By: #### 2 732299 ####JIMMIE RfyTmfp4354 [place] [address] Globulin 2.8 g/dL Normal 2.0-4.0 [facility] Comment on above: Performed By: #### 2 229455 ####JIMMIE QecWiyp0577 [place] [address] Protein 6.6 g/dL Normal 6.4-8.3 [facility] Comment on above: Performed By: #### 2 409800 ####JIMMIE RzjHpjh5332 [place] [address] Lipase Levelon 07-04-2017 Lipase Lvl 19 U/L Normal 8-57 [facility] Comment on above: Performed By: #### 2 617983 ####JIMMIE BjiSqmw9342 [place] [address] U BhCG Qlton 07-04-2017 HCG.beta subunit Qn Positive Normal Neg [facility] Comment on above: Performed By: #### 2 234166 ####JIMMIE Urinalysis Manual Jdhybboerw5854 [place] [address] UA Completeon 07-04-2017 UA Blood 3+ Normal Negative [facility] Comment on above: Performed By: #### 8 [id number] ####JIMMIE Urinalysis Automated Vmuyceakqs6465 [place] [address] UA Bacteria Trace Abnormal None [facility] Comment on above: Performed By: #### 8 [id number] ####JIMMIE Urinalysis Automated Eyajtddwnx5550 [place] [address] UA Clarity SltCloudy Abnormal Clear [facility] Comment on above: Performed By: #### 8 [id number] ####JIMMIE Urinalysis Automated Lnjzgficwa[address] [place] [id number] UA Leuk Est Trace Normal Negative [facility] Comment on above: Performed By: #### 8 [id number] ####JIMMIE Urinalysis Automated [address] [place] [address] UA Mucous Occasional Abnormal Trace [facility] Comment on above: Performed By: #### 8 [id number] ####JIMMIE Urinalysis Automated Kwvudxulvl8667 [place] [id number] UA Nitrite Negative Normal Negative [facility] Comment on above: Performed By: #### 8 [id number] ####JIMMIE Urinalysis Automated [address] [place] [address] UA pH 5.0 Normal 4.6-8.0 [facility] Comment on above: Performed By: #### 8 4698871 ####JIMMIE Urinalysis Automated [address] [place] [address] UA Protein Negative Normal Negative [facility] Comment on above: Performed By: #### 8 [id number] ####JIMMIE Urinalysis Automated Ddjpqqpvyh5718 [place] [address] UA Spec Grav 1.027 Normal 1.003-1.03 0 [facility] Comment on above: Performed By: #### 8 0558390 ####JIMMIE Urinalysis Automated [address]rx[address]vewf[address] [place] [address] UA Squam Epithelial 0-5 Normal 0-5 [facility] Comment on above: Performed By: #### 8 1135430 ####JIMMIE Urinalysis Automated Auqlhnizek8219 [place] [id number] UA Urobilinogen Negative Normal [facility] Comment on above: Performed By: #### 8 9630142 ####JIMMIE Urinalysis Automated Yjbhznjoki1025 [place] [address] UA WBC 10-20 Abnormal 0-5 [facility] Comment on above: Performed By: #### 8 9375618 ####JIMMIE Urinalysis Automated Pnijitytml2930 [place] [address] Urine, color Yellow Normal Yellow [facility] Comment on above: Performed By: #### 8 3049587 ####JIMMIE Urinalysis Automated Lvuemttqga8459 [place] [address] Urine, erythrocytes 5-10 Abnormal 0-3 [facility] Comment on above: Performed By: #### 8 [id number] ####JIMMIE Urinalysis Automated Ucsshccbud7083 [place] [address] Urine, glucose Negative Normal Negative [facility] Comment on above: Performed By: #### 8 [id number] ####JIMMIE Urinalysis Automated Jhtbelthas2099 [place] [address] Urine, ketones presence Negative Normal Negative [facility] Comment on above: Performed By: #### 8 [id number] ####JIMMIE Urinalysis Automated Ivlebjsisr7172 [place] [address] Urine, urobilinogen Negative Normal Negative [facility] Comment on above: Performed By: #### 8 [id number] ####JIMMIE Urinalysis Automated Uagjorfkos7351 [place] [address] eGFRon 07-04-2017 eGFR (non-black) mL/min/{1.73_m2} Normal [facility] Comment on above: Order Comment: Order added by Discern Expert. Performed By: #### 1 [id number] ####JIMMIE NbyXwpp8747 [place] [address] Vital Signs Date Time Vital Sign Value Performing Clinician Cong reynolds 04-20-2023 14:07-0500 Diastolic blood pressure 75 mm[Hg] [facility] 04-20-2023 14:07-0500 Heart rate 93 /min [facility] 10 [facility] 04-20-2023 14:07-0500 Respiratory rate 18 /min [facility] 10 [facility] 04-20-2023 14:07-0500 SaO2% (BldA) [Mass fraction] 99 % [facility] [address] [place] [address] 04-20-2023 14:07-0500 Systolic blood pressure 127 mm[Hg] [facility] [address] [place] [address] 04-20-2023 14:06-0500 Body height 160 cm [facility] [address] [place] [address] 04-20-2023 14:06-0500 Body mass index (BMI) [Ratio] 37.22 kg/m2 [facility] [address] [place] [address] 04-20-2023 14:06-0500 Body temperature 97.7 [degF] [facility] [address] [place] [address] 04-20-2023 14:06-0500 Body weight 95.3 kg [facility] [address] [place] [address] 03-10-2023 23:05-0500 Diastolic blood pressure 80 mm[Hg] Supriya Aichholz Work Phone: [facility] 03-10-2023 23:05-0500 Heart rate 100 /min Supriya Aichholz Work Phone: [facility] 03-10-2023 23:05-0500 Respiratory rate 20 /min Supriya Aichholz Work Phone: [facility] 03-10-2023 23:05-0500 SaO2% (BldA) [Mass fraction] 98 % Supriya Aichholz Work Phone: [facility] 03-10-2023 23:05-0500 Systolic blood pressure 137 mm[Hg] Supriya Aichholz Work Phone: [facility] 03-10-2023 17:38-0500 Body temperature 97.9 [degF] Supriya Aichholz Work Phone: [facility] 03-10-2023 17:32-0500 Body height 160.02 cm Supriya Aichholz Work Phone: [facility] 03-10-2023 17:32-0500 Body weight 95 kg Supriya Aichholz Work Phone: [facility] Encounters Encounter Date Encounter Type Care [...] Not Available Start: 05-22-2023 End: 05-22-2023 ambulatory [facility] Start: 05-22-2023 End: 05-22-2023 Postop follow up visit related to original px Gerson Malik MD [facility] Phone: [facility] Comment on [...] Evaluation and management of inpatient SUKI Smith [facility] Start: 05-04-2023 End: 05-04-2023 Evaluation and management of inpatient PA Jonathan [facility] Start: 04-20-2023 End: 04-20-2023 ambulatory [facility] Start: 04-20-2023 End: 04-20-2023 Patient encounter procedure [facility] Provider 10 [facility] Blum [facility] Start: 03-31-2023 End: 03-31-2023 ambulatory XIN MORTEZA Not Available Start: 03-30-2023 End: 03-30-2023 ambulatory [facility] Start: 03-14-2023 End: 03-14-2023 ambulatory XIN MORTEZA Not Available Start: 03-10-2023 End: 03-11-2023 Emergency department patient visit Jacky Alarcon Facility:[facility] Start: 03-10-2023 End: 03-10-2023 Emergency department patient visit Supriya Emmanuelreillyaric Work Phone: [facility] Work Phone: Start: 03-07-2023 End: [...] 07-07-2017 End: 07-07-2017 Emergency department patient visit [facility] Start: 07-05-2017 End: 07-06-2017 Ambulatory Dickson Arleth [place] Facility:[facility] Start: 07-04-2017 End: 07-04-2017 Emergency department patient visit Dickson W [place] Facility:[facility] Procedures Date Procedure Procedure Detail [...] Td Vaccines (5 - Td or Tdap) [facility] Start: 05-04-2024 Adult BMI Screening Adult BMI Screen ing [facility] Start: 05-04-2024 Tobacco Screening Tobacco Screening [facility] Start: 04-20-2024 Adult BMI Screening Adult BMI Screen ing [facility] Start: 04-20-2024 Tobacco Screening Tobacco Screening [facility] Start: 06-05-2023 End: 06-05-2023 Patient encounter procedure 06/05/2023 9:50 AM EST Routine [facility] [address] [place] [id number] Xin Pro DO [address] [place] [address] [facility] Start: 05-04-2023 End: 05-04-2023 Admission to same day surgery center 05/04/2023 7:30 AM EST - 05/04/2023 9:30 AM EST Surgery [address] [place] [address] Gerson Malik MD [address] [place] [address] DAVINCI CHOLECYSTECTOMY [facility] Surgery Comment on above: DAVINCI CHOLECYSTECT ANDREA Start: 05-04-2023 End: 05-04-2023 DAVINCI CHOLECYSTECTOMY DAVINCI CHOLECYSTECTOMY CHOLELITHIASIS 05/04/2023 7:30 AM EST [facility] Start: 05-04-2023 End: 05-04-2023 DAVINCI CHOLECYSTECTOMY CHOLANGIOGRAM DAVINCI CHOLECYSTECTOMY CHOLANGIOGRAM CHOLELITHIASIS 05/04/2023 7:30 AM EST [facility] Start: 05-04-2023 Subsequent hospital visit by physician 05/04/2023 7:30 AM EST Hospital Encounter [address] [place] [id number] Gerson Malik MD [address] [place] [address] [facility] Start: 03-10-2023 US Gallbladder [facility] Start: 03-10-2023 US scan of gallbladder US gall bladd er [facility] Start: 03-10-2023 Bacteria identified in Urine by Culture [facility] Start: 12-09-2022 Influenza vaccination Influenza Vacc ine [facility] Start: 2019 Screening for malign ant neoplasm of cervix Pap Smear [facility] Start: 2016 Adult BMI Follow Up Plan Adult BMI F ollow Up Plan [facility] Start: 2010 Depression Screening Depression Scre ening [facility] Patient Education - e Second Month Nausea and Vomiting, Adult ED Gallstones ED [facility] Work Phone: Patient referral [facility] Work Phone: Payers Date Payer Category Payer Unknown [id number] 2022 Private Health Insurance [id number] 2022 Unknown [id number] 2017 Unknown 1998 Unknown [id number] 2.16.84 0.1.514986.3.579.2.593 1998 Unknown [id number] 2.16.84 0.1.283966.3.579.2.593 1998 Unknown [id number] 2.16.84 0.1.455101.3.579.2.593 1998 Unknown [id number] 2.16.84 0.1.595327.3.579.2.593 1998 Unknown [id number] 2.16.84 0.1.783555.3.579.2.593 1998 Unknown [id number] 2.16.84 0.1.985540.3.579.2.593 1998 Unknown [id number] 2.16.84 0.1.778590.3.579.2.593 1998 Unknown [id number] 2.16.84 0.1.780843.3.579.2.593 1998 Unknown [id number] 2.16.84 0.1.247996.3.579.2.593 1998 Unknown [id number] 2.16.84 0.1.894007.3.579.2.593 1998 Unknown [id number] 2.16.84 0.1.290811.3.579.2.593 1998 Unknown [id number] 2.16.84 0.1.361263.3.579.2.593 1998 Unknown [id number] 2.16.84 0.1.720529.3.579.2.593 1998 Unknown [id number] 2.16.8 40.1.901450.3.579.2.1286 1998 Unknown [id number] 2.16.8 40.1.948707.3.579.2.1286 1998 Unknown [id number] 2.16.8 40.1.702685.3.579.2.1286 1998 Unknown [id number] 2.16.8 40.1.422128.3.579.2.1286 1998 Unknown [id number] 2.16.84 0.1.161910.3.579.2.1286 1998 Unknown [id number] 2.16.84 0.1.667610.3.579.2.1286 1998 Unknown [id number] 2.16.84 0.1.773445.3.579.2.1259 1998 Unknown [id number] 2.16.84 0.1.422596.3.579.2.9 1998 Unknown [id number] 2.16.84 0.1.302812.3.579.2.1259 1998 Unknown [id number] 2.16.84 0.1.328735.3.579.2.1259 1998 Unknown [id number] 2.16.84 0.1.566586.3.579.2.1259 1998 Unknown [id number] 2.16.84 0.1.376757.3.579.2.1259 1998 Unknown [id number] 2.16.84 0.1.540626.3.579.2.1259 1998 Unknown [id number] 2.16.84 0.1.690754.3.579.2.1259 1998 Unknown [id number] 2.16.840 .1.845762.3.579.2.1259 1998 Unknown [id number] 2.16.840 .1.264269.3.579.2.1259 1998 Unknown [id number] 2.16.840 .1.958378.3.579.2.1259 1959 Private Health Insurance [id number] 1959 Self-pay 1959 Unknown [id number] 1959 Unknown [id number] Unknown [id number] 2.16.8 40.1.929691.3.579.2.531 Social History Date Type Detail Facility Start: 03-10-2023 End: 03-30-2023 Tobacco smoking status NHIS Never smoked tobacco (finding) [facility] Start: 2000 Sex Assigned At Female F [facility] Start: 03-30-2023 End: 05-16-2023 Tobacco use and exposure Smokeless tobacco non-user [facility] Start: 04-20-2023 End: 05-04-2023 Alcohol intake Ex-drinker (finding) [facility] Start: 05-21-2020 End: 04-20-2023 History of Social function [facility] Start: 05-21-2020 End: 04-20-2023 Tobacco use panel [facility] Housing Instability Unknown [facility] Start: 2000 Sex Assigned At Not on file P [facility] Start: 05-16-2023 Alcohol intake Lifetime non-d yrn (finding) [facility] Start: 02[facility]10-[facility] History of Present illness Narrative [...] up: As needed documented in this encounter [facility] LY[employer] Kitchen System Instructions 04-20-2023 Patient Instructions Note Date & Type Note Facility 04-20-2023 Instructions Terri Estrada RN - 04/20/2023 1:45 PM EST Your surgery/procedure is scheduled at [facility] on 05/04/23 at 0730 Arrival Time 0530 [facility] Address: [address] [place] [address] Park in [address] Parking lot located on [address]. Report to the Entrance B. Check in at the information desk the surgery. The waiting room located on the second floor. If you have any questions prior to surgery, please call Pre-Admission Clinic at [phone] between 7:30 am and 4:30 pm Monday through Monday. If you have questions the morning of surgery, please call the Pre-op Department at [phone]. PLEASE FOLLOW THESE INSTRUCTIONS OR YOUR SURGERY [...] would like to schedule [facility] at a [facility], please call [phone] ([phone]). Do not use lotions, creams, powders, perfume, make up, cologne or after-shaves day of surgery. Remove ALL jewelry including wedding rings, body piercings,hair extensions that contain metal, nail sa[place]ab[place], make-up, and contact lens. You may brush [...] RIGHTS AND RESPONSIBILITIES As a patient at [facility], you have the right to: Receive medical care and be informed of who is taking care of you Be treated with dignity and respect Have a family member/admitting representative of choice and your physician notified of your admission Receive information and actively participate in decisions about your care and treatment Refuse care, treatment and services Decide who may provide your support and speak for you Access worship and spiritual services Participate in ethical issues [...] of hospital charges and payment methods Patient/patient admitting representative responsibilities are to: Provide information about [...] call done-message left documented in this encounter [facility] Nurse Note 04-20-2023 Perioperative Nursing Note - Lexi Reddy RN - 04/20/2023 1:45 PM EST Note Date & Type Note Facility 04-20-2023 Nurse Note Appt reminder call done-message left [facility] Evaluation note Note Date & Type Note Facility Evaluation note No assessment information availa [facility] Work Phone: Evaluation note Note Date & Type Note Facility Evaluation note Diagnosis Status post laparoscopic cholecystectomy- Primary Other postprocedural status documented in this encounter [facility] Hospital Discharge instructions Note Date & Type Note Facility Hospital Discharge instructions Additional Instructions Return if symptoms are worse Continue your Zofran and Reglan at home and will add Phenergan for vomiting Follow-up with your surgeon [facility] Work Phone: Instructions Attachments Note Date & Type Note Facility Instructions The following attachments cannot be sent through Care Everywhere.Cholecystectomy Discharge Instructions (Ukrainian)documented in this encounter [facility] Summary Purpose Family History No Family History [...] CREATED AUTHOR AUTHOR'S ORGANIZ ATION 04/16/2020 [facility] DATE CREATED AUTHOR AUTHOR'S ORGANIZ ATION 08/24/2022 [facility] DATE CREATED AUTHOR AUTHOR'S ORGANIZ ATION 03/21/2023 [facility] DATE CREATED AUTHOR AUTHOR'S ORGANIZ ATION 05/24/2023 [facility] DATE CREATED AUTHOR AUTHOR'S ORGANIZ ATION 09/29/2023 [facility] [employer] Care Teams (unrecognized sec tion and content) Team Status: Active Member Role Status Dates Supriya Cerrato Primary Care Provider Active Team Status: Inactive Member Role Status Dates Supriya Cerrato Primary Care Provider Active Jacky Alarcon MD Emergency Provider Active Superintendent House Relationship Specialty Start Date End Date Supriya Cerrato, [employer] INSPECTOR[facility] [address] [place] [phone] PCP - General Nurse Practitioner 03/30/23 Superintendent House Relationship Specialty Start Date End Date Supriya Cerrato, [employer] INSPECT[employer] [address] [place] [id number] PCP - General Nurse Practitioner 03/30/23 Goals [...] BE BASED ON THE PRIMARY CLINICAL RECORDS. [facility] [employer] provides no warranty or guarantee of the accuracy or completeness of information in this document.
--- NOTE | 2023-10-11 17:00 | US_ITS ---
[address] [address] Patient Name: EDISON ASHLEY MRN: [id number] date: 2000 Sex: F Assigned Patient Location: [facility] Current Patient Location: Accession/Order Number: [id number] Exam Date: 10/11/2023 17:09 Report Date: 10/12/2023 06:30 At the request of: XIN GRULLON Procedure: US OB BPP w non-stress EXAMINATION: US OB BPP w non-stress HISTORY:EXCESSIVE GROWTH AFFECTING [id number] COMPARISON: No relevant comparison available. TECHNIQUE: Ultrasound biophysical profile was performed in the radiology department. BREATHING MOVEMENTS: 2 GROSS BODY MOVEMENTS: 2 TONE: 2 QUALITATIVE AMNIOTIC FLUID VOLUME: 2 PRESENTATION: CEPHALIC HEART RATE: 130.12 bpm AMNIOTIC FLUID VOLUME: 16.38 cm GESTATIONAL AGE: 89 Day US/US OB BPP w non-stress IMPRESSION: Total biophysical profile score: 8 Electronically authenticated by: PAM SALAZAR Date: 10/12/2023 06:30
[2023-10-11 17:36] VITALS: BP 121/71; PULSE 104
== END 2023-10-11 18:02 | disposition home or self-care (01) ==
LOC: US 07:02 → FBC 16:57
PROVIDERS: Visit Provider Obstetrics & Gynecology
DX: O36.63X0 Maternal care for excessive fetal growth, third trimester, not applicable or unspecified (principal); Z3A.36 36 weeks gestation of pregnancy
CPT/HCPCS: 76818; 87081

== ENCOUNTER 2023-10-11 21:07 | Outpatient (REF) | payer OTHER, SELFPAY ==
--- OUTSIDE RECORDS SUMMARY | 2023-10-11 21:12 | XMS_ITS | CCD ---
Author Organization [facility] Care Team Providers Care Repairer Hairspring Name Role Phone Comfrey, Dickson W Unavailable Unavailable Galdino, Dickson W Unavailable Unavailable No Doctor Assigned, Nodr Unavailable Unavail able Galdino, Dickson W Unavailable Unavailable Comfrey, Dickson W Unavailable Unavailable No Doctor Assigned, Nodr Unavailable Unavail able SHEMAR ., STEFAN Admitting Unavailable SHEMAR ., STEFAN Consulting Unavailable AICHHOLZ, SATIN FINISHER SUPRIYA Primary Care Unavailable SHEMAR ., STEFAN Attending Unavailable MORTEZA ., DR LAUREN Admitting Unavailable SHEMAR ., STEFAN Consulting Unavailable AICHHOLZ, SATIN FINISHER SUPRIYA Primary Care Unavailable MORTEZA ., DR LAUREN Attending Unavailable SHEMAR ., STEFAN Admitting Unavailable SHEMAR ., STEFAN Consulting Unavailable SHEMAR ., STEFAN Attending Unavailable AICHHOLZ, SATIN FINISHER SUPRIYA Primary Care Unavailable AICHHOLZ, SATIN FINISHER SUPRIYA Primary Care Unavailable MORTEZA ., DR LAUREN Attending Unavailable MORTEZA ., DR LAUREN Admitting Unavailable MORTEZA ., DR LAUREN Admitting Unavailable MORTEZA ., DR LAUREN Attending Unavailable AICHHOLZ, SATIN FINISHER SUPRIYA Primary Care Unavailable MORTEZA ., DR LAUREN Consulting Unavailable KARASIK ., DR MURPHY Attending Unavailabl e AICHHOLZ, SATIN FINISHER SUPRIYA Primary Care Unavailable KARASIK ., DR [...] MORTEZA ., DR LAUREN Consulting Unavailable AICHHOLZ, SATIN FINISHER SUPRIYA Primary Care Unavailable MORTEZA ., DR LAUREN Attending Unavailable Zieber, Tristan Consulting Unavailable MORTEZA ., DR LAUREN Consulting Unavailable REQUEST, DR NONE LISTED Primary Care Unavaila ble MORTEZA ., DR LAUREN Attending Unavailable MORTEZA ., DR LAUREN Admitting Unavailable Zieber, Tristan Consulting Unavailable MORTEZA ., DR LAUREN Admitting Unavailable AICHHOLZ, SATIN FINISHER SUPRIYA Primary Care Unavailable MORTEZA ., DR LAUREN Attending Unavailable MIAMI, DR DONALD Bryan Consulting Unavailable MORTEZA ., DR LAUREN Consulting Unavailable MORTEZA ., DR LAUREN Admitting Unavailable AICHHOLZ, SATIN FINISHER SUPRIYA Primary Care Unavailable MORTEZA ., DR LAUREN Attending Unavailable MORTEZA ., DR LAUREN Consulting Unavailable SHEMAR ., STEFAN Attending Unavailable SHEMAR ., STEFAN Admitting Unavailable Zieber, Tristan Consulting Unavailable REQUEST, DR NONE LISTED Primary Care Unavaila ble SHEMAR ., STEFAN Consulting Unavailable MORTEZA ., DR LAUREN Admitting Unavailable MORTEZA ., DR LAUREN Consulting Unavailable MORTEZA ., DR LAUREN Attending Unavailable AICHHOLZ, SATIN FINISHER SUPRIYA Primary Care Unavailable Aichholz, Supriya J Primary Care Provider [phone] MD Jacky Alarcon Emergency Provider Jacky Alarcon Attending Unavailable Jacky Alarcon Admitting Unavailable Aicstef, Supriya J Primary Care Unavailable Aichholz MAINTENANCE PLANNING CLERK-SATIN FINISHER, Supriya J Primary Care Provider Unavailable Primary [...] Propensity to adverse reactions to drug (disorder) [facility] Repository Medications Current Medications Medication Drug [...] applicable or unspecified; Translations: [MAT CARE EXCSS [facility] GR 3RD TRI UNS] Onset: 06-06-2022 Episodic [...] AUTO DIFFon BASOPHILS ABSOLUTE AUTO 0.0 [facility] Basophils/100 WBC (Bld) 0.3 % 0.2 - 2.0 % [facility] Eosin[facility]/100 WBC (Bld) 2.0 % 0.9 - 7.0 % [facility] Erythrocyte distribution width (RBC) [Ratio] 12.8 % 11.0 - 15.0 % [facility] Hematocrit (Bld) [Volume fraction] 39.3 % 36.0 - 48.0 % [facility] Hemoglobin (Bld) [Mass/Vol] 14.1 g/dL 12.0 - 16.0 g/dL [facility] IMMATURE GRANULOCYTES ABS AUTO 0.07 High [facility] Immature granulocytes/100 WBC (Bld) 0.7 % High 0.0 - 0.5 % [facility] Interpretation and review of laboratory results Abnormal [facility] LYMPHOCYTES ABSOLUTE AUTO 2.0 [facility] Lymphocytes/100 WBC (Bld) 19.1 % Low 20.5 - 60.0 % [facility] MCH (RBC) [Entitic mass] 32.0 pg 26.7 - 34.0 pg [facility] MCHC (RBC) [Mass/Vol] 35.9 g/dL High 29.9 - 35.2 g/dL [facility] MCV (RBC) [Entitic vol] 89.3 fL 81.0 - 99.0 fL [facility] MONOCYTES ABSOLUTE AUTO 0.5 [facility] Monocytes/100 WBC (Bld) 4.7 % 1.7 - 12.0 % [facility] NEUTROPHILS ABSOLUTE AUTO 7.6 High [facility] Neutrophils/100 WBC (Bld) 73.2 % 43.0 - 75.0 % [facility] Platelet mean volume (Bld) [Entitic vol] 11.4 fL 9.5 - 13.5 fL [facility] TBH EO # 0.2 [facility] TB PLT [address] [facility] RBC 4.40 [facility] TBH WBC 10.4 [facility] Surgical Pathologyon 024 Surgical Pathology Normal [facility] Comment on above: Result Comment: [facility] [address] [place] [address] Surgical Pathology Consultation Patient Name:DARY ASHLEY:2000 (Age: 23)Gender:FTaken:4Reported:4Physician(s):GERSON Kelsey To: Rec. 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 No evidence of malignancy or dysplasia. Cholelithiasis. Report Electronically Signed Out ao/05/12/2023olamide Moreno MD Interpretation performed at [facility], [address] [place] [address], License number: [id number]. Clinical History Cholelithiasis. Gross Description Received in [...] congested, hemorrhagic and velvety in the neck. Sock Ironer sections are submitted in cassettes A- B, as: A- cystic duct margin and customer sales representative ragged defects,B- customer sales representative neck body and fundus. After initial microscopic evaluation, additional sections are submitted in cassettes C-E. (5,ss,[id number], m6) MARYJANE/ mxw/05/04/2023SSI Specimen(s) Received Gallbladder Fee Codes(s): 1; 13505 gall bladderon 03-11-2023 gall bladder [facility] [place] [address] Ultrasound Report Signed Patient: Dary Ashley MR#: [id number] : 2000 Acct:[id number] Age/Sex: 22 / F ADM Date: 03/10/23 Loc: ER Room: Type: [facility] ER Attending Dr: Ordering Provider: Jacky [...] Nataliia Scott M.D.03/11/2023 8:10 AM Dictation Location: [place] [address] Tech: Isi Federico Transcribed By: RONI 03/11/23 0810 Dictated By: Nataliia Scott MD 03/11/23 0807 Signed By: 03/11/23 0810 Normal [facility] Alanine aminotransferase [En zymatic activity/volume] in Serum or PlasmaOrdered By: Jacky Alarcon on 03-10-2023 ALT [Catalytic activity/Vol] 36 U/L 7-52 [facility] Albumin [Mass/volume] in Ser um or Plasma by Bromocresol green (BCG) dye binding methoOrdered By: Jacky Alarcon on 03-10-2023 Albumin BCG dye [Mass/Vol] 4.5 g/dL 3.5-5.7 [facility] Alkaline phosphatase [Enzyma tic activity/volume] in Serum or PlasmaOrdered By: Jacky Alarcon on 03-10-2023 ALP [Catalytic activity/Vol] 71 U/L 34-104 [facility] Aspartate aminotransferase [ Enzymatic activity/volume] in Serum or PlasmaOrdered By: Jacky Alarcon on 03-10-2023 AST [Catalytic activity/Vol] 17 U/L 13-39 [facility] Automated erythrocytes count in urine sediment (number/area)Ordered By: Jacky Alarcon on 03-10-2023 RBC Auto (Urine sed) [#/Area] 50-100 [HPF] 0-4 [facility] Automated leukocytes count i n urine sediment (number/area)Ordered By: Jacky Alarcon on 03-10-2023 WBC Auto (Urine sed) [#/Area] 5-9 [HPF] 0-4 [facility] Basic Metabolic Panelon 12 Anion gap [Moles/Vol] 16.5 mmol/L High 6.0-15.0 [facility] Comment on above: Performed By: #### L IPASE, HCGQNT, HEPATIC, BMP, CBC #### [facility] [address] Calcium [Mass/Vol] 9.3 mg/dL Normal 8.6-10.3 [facility] Comment on above: Performed By: #### L IPASE, HCGQNT, HEPATIC, BMP, CBC #### [facility] [address] [place] [address] [place] Chloride [Moles/Vol] 101 mmol/L Normal 98-107 [facility] Comment on above: Performed By: #### L IPASE, HCGQNT, HEPATIC, BMP, CBC #### [facility] [address] [place] [address] [place] CO2 [Moles/Vol] 18.8 mmol/L Low 21.0-31.0 [facility] Comment on above: Performed By: #### L IPASE, HCGQNT, HEPATIC, BMP, CBC #### [facility] [address] [place] [address] [place] Creatinine [Mass/Vol] 0.64 mg/dL Normal 0.60-1.20 [facility] Comment on above: Performed By: #### L IPASE, HCGQNT, HEPATIC, BMP, CBC #### [facility] [address] [place] [address] [place] Creatinine Clr Calc Pharmacy 148.58 Normal [facility] Comment on above: Performed By: #### L IPASE, HCGQNT, HEPATIC, BMP, CBC #### [facility] [address] [place] [address] [place] GFR/1.73 sq M.predicted MDRD (S/P/Bld) [Vol rate/Area] mL/min/{1.73_m2} Normal [facility] Comment on above: Performed By: #### L IPASE, HCGQNT, HEPATIC, BMP, CBC #### [facility] [address] Glucose [Mass/Vol] 83 mg/dL Normal 70-100 [facility] Comment on above: Result Comment: [place] Glucose Reference Range is dependent on time and content of last meal. Glucose of more than 200 mg/dL in a nonstressed, ambulatory subject supports the diagnosis of Diabetes Mellitus. ADA recommended reference range Performed By: #### L IPASE, HCGQNT, HEPATIC, BMP, CBC #### [facility] [address] Potassium [Moles/Vol] 3.3 mmol/L Low 3.5-5.1 [facility] Comment on above: Performed By: #### L IPASE, HCGQNT, HEPATIC, BMP, CBC #### [address] Sodium [Moles/Vol] 133 mmol/L Low 136-145 [facility] Comment on above: Performed By: #### L IPASE, HCGQNT, HEPATIC, BMP, CBC #### [facility] [address] [place] [address] Urea nitrogen [Mass/Vol] 6 mg/dL Low 7-25 [facility] Comment on above: Performed By: #### L IPASE, HCGQNT, HEPATIC, BMP, CBC #### [facility] [address] [place] [address] Basophils Auto (Bld) [#/Vol] Ordered By: Jacky Alarcon on 03-10-2023 Basophils (Bld) [#/Vol] 0.1 10*3/uL 0.0-0.2 [facility] Basophils/100 WBC Auto (Bld) Ordered By: Jacky Alarcon on 03-10-2023 Basophils/100 WBC (Bld) 0.4 % . [facility] Bilirubin Test strip Ql (U)O rdered By: Jacky Alarcon on 03-10-2023 Bilirubin Ql (U) Negative Negative [facility] Bilirubin.direct [Mass/volum e] in Serum or PlasmaOrdered By: Jacky Alarcon on 03-10-2023 Bilirubin.direct [Mass/Vol] 0.40 mg/dL 0.03-0.18 [facility] Bilirubin.total [Mass/volume ] in Serum or PlasmaOrdered By: Jacky Alarcon on 03-10-2023 Bilirubin [Mass/Vol] 1.2 mg/dL 0.3-1.0 [facility] Calcium [Mass/volume] in Ser um or PlasmaOrdered By: Jacky Alarcon on 03-10-2023 Calcium [Mass/Vol] 9.3 mg/dL 8.6-10.3 [facility] Carbon dioxide, total [Moles /volume] in Serum or PlasmaOrdered By: Jacky Alarcon on 03-10-2023 CO2 [Moles/Vol] 18.8 mmol/L 21.0-31.0 [facility] Chloride [Moles/volume] in S rahul or PlasmaOrdered By: Jacky Alarcon on 03-10-2023 Chloride [Moles/Vol] 101 mmol/L 98-107 [facility] Choriogonadotropin.beta subu nit [Units/volume] in Serum or PlasmaOrdered By: Jacky Alarcon on 03-10-2023 [place] [address].00 m[IU]/mL [facility] Comment on above: Approximate Approxim ate hCG Gestational Age Range (mIU/ml) (weeks)0.2-1 5-50 1-2 50-500 2-3 100-5,000 3-4 500-10,000 4-5 1,000-50,000 5-6 10,000-100,000 6-8 15,000-200,000 8-12 10,000-100,000 Color Auto (U)Ordered By: Corinna Alarcon on 03-10-2023 Color (U) Dark yellow Yellow [facility] Complete Blood Count Auto Di ffon 03-10-2023 Basophils (Bld) [#/Vol] 0.1 10*3/uL Normal 0.0-0.2 [facility] Comment on above: Result Comment: PERF ORMED BY: [facility] [address] [place] [address] PATHOLOGIST TIRE SERVICER ANDRÉS MACEDO M.D. Performed By: #### L IPASE, HCGQNT, HEPATIC, BMP, CBC #### [address] Basophils/100 WBC (Bld) 0.4 % Normal . [facility] Comment on above: Performed By: #### L IPASE, HCGQNT, HEPATIC, BMP, CBC #### [address] Eosinophils (Bld) [#/Vol] 0.1 10*3/uL Normal 0.0-0.45 [facility] Comment on above: Performed By: #### L IPASE, HCGQNT, HEPATIC, BMP, CBC #### [address] Eosinophils/100 WBC (Bld) 0.5 % Normal . [facility] Comment on above: Performed By: #### L IPASE, HCGQNT, HEPATIC, BMP, CBC #### [address] Erythrocyte distribution width (RBC) [Ratio] 13.3 % Normal 11.9-15.3 [facility] Comment on above: Performed By: #### L IPASE, HCGQNT, HEPATIC, BMP, CBC #### [address] Hematocrit (Bld) [Volume fraction] 47.2 % High 34.0-46.4 [facility] Comment on above: Performed By: #### L IPASE, HCGQNT, HEPATIC, BMP, CBC #### [address] Hemoglobin (Bld) [Mass/Vol] 16.5 g/dL High 11.8-15.4 [facility] Comment on above: Performed By: #### L IPASE, HCGQNT, HEPATIC, BMP, CBC #### [address] Lymphocytes (Bld) [#/Vol] 1.9 10*3/uL Normal 1.00-4.8 [facility] Comment on above: Performed By: #### L IPASE, HCGQNT, HEPATIC, BMP, CBC #### [address] Lymphocytes/100 WBC (Bld) 11.6 % Normal . [facility] Comment on above: Performed By: #### L IPASE, HCGQNT, HEPATIC, BMP, CBC #### [address] MCH (RBC) [Entitic mass] 30.8 pg Normal 24.7-34.3 [facility] Comment on above: Performed By: #### L IPASE, HCGQNT, HEPATIC, BMP, CBC #### [address] MCV (RBC) [Entitic vol] 87.8 fL Normal 80-100 [facility] Comment on above: Performed By: #### L IPASE, HCGQNT, HEPATIC, BMP, CBC #### [address] Mean Corpuscular HGB Conc 35.0 g/dL Normal 32.0-35.0 [facility] Comment on above: Performed By: #### L IPASE, HCGQNT, HEPATIC, BMP, CBC #### [address] Monocytes (Bld) [#/Vol] 1.4 10*3/uL High 0.0-0.8 [facility] Comment on above: Performed By: #### L IPASE, HCGQNT, HEPATIC, BMP, CBC #### [place] [address] [place] Monocytes/100 WBC (Bld) 16.05 % Normal 0.00-20.00 [facility] Comment on above: Performed By: #### L IPASE, HCGQNT, HEPATIC, BMP, CBC #### [address] Monocytes/100 WBC (Bld) 8.8 % Normal . [facility] Comment on above: Performed By: #### L IPASE, HCGQNT, HEPATIC, BMP, CBC #### [place] [address] [place] Neutrophils (Bld) [#/Vol] 12.6 10*3/uL High 1.8-7.7 [facility] Comment on above: Performed By: #### L IPASE, HCGQNT, HEPATIC, BMP, CBC #### [place] [address] [place] Neutrophils/100 WBC (Bld) 78.7 % Normal . [facility] Comment on above: Performed By: #### L IPASE, HCGQNT, HEPATIC, BMP, CBC #### [address] NRBC% 0.1 /100{WBC} Normal 0-0.5 [facility] Comment on above: Performed By: #### L IPASE, HCGQNT, HEPATIC, BMP, CBC #### [address] Platelet mean volume (Bld) [Entitic vol] 9.7 fL Normal 6.3-10.7 [facility] Comment on above: Performed By: #### L IPASE, HCGQNT, HEPATIC, BMP, CBC #### [place] [address] [place] Platelets (Bld) [#/Vol] 263 10*3/uL Normal 150-450 [facility] Comment on above: Performed By: #### L IPASE, HCGQNT, HEPATIC, BMP, CBC #### [place] [address] [place] RBC (Bld) [#/Vol] 5.37 10*6/uL High 3.60-5.00 [facility] Comment on above: Performed By: #### L IPASE, HCGQNT, HEPATIC, BMP, CBC #### [place] [address] [place] WBC (Bld) [#/Vol] 16.0 10*3/uL High 3.8-11.6 [facility] Comment on above: Performed By: #### L IPASE, HCGQNT, HEPATIC, BMP, CBC #### [facility] [address] Creatinine [Mass/volume] in Serum or PlasmaOrdered By: Jacky Alarcon on 03-10-2023 Creatinine [Mass/Vol] 0.64 mg/dL 0.60-1.20 [facility] Dipstick and Microscopicon 1 05-11-2022 Appearance (U) Turbid Critically abnormal Clear [facility] Comment on above: Order Comment: Name Collection Type:: Clean-Voided Midstream Performed By: #### A DDONUAPLUS, CUU #### [facility] [address] [place] [address] [place] Bacteria,Urine Rare High None Seen [facility] Comment on above: Order Comment: Name Collection Type:: Clean-Voided Midstream Performed By: #### A DDONUAPLUS, CUU #### [facility] [address] [place] [address] [place] Bilirubin,Urine Negative Normal Negative [facility] Comment on above: Order Comment: Name Collection Type:: Clean-Voided Midstream Performed By: #### A DDONUAPLUS, CUU #### [facility] [address] [place] [address] [place] Color (U) Dark Yellow Critically abnormal Yellow [facility] Comment on above: Order Comment: Name Collection Type:: Clean-Voided Midstream Performed By: #### A DDONUAPLUS, CUU #### [facility] [address] [place] [address] [place] Glucose Ql (U) Normal Normal Normal [facility] Comment on above: Order Comment: Name Collection Type:: Clean-Voided Midstream Performed By: #### A DDONUAPLUS, CUU #### [facility] [address] [place] [address] [place] Hyaline Casts,Urine 9-19 High 0-8 [facility] Comment on above: Order Comment: Name Collection Type:: Clean-Voided Midstream Result Comment: PERF ORMED BY: [address] [place] [address] PATHOLOGIST TIRE SERVICER ANDRÉS MACEDO M.D. Performed By: #### A DDONUAPLUS, CUU #### [address] Ketones Ql (U) 4+ High Negative [facility] Comment on above: Order Comment: Name Collection Type:: Clean-Voided Midstream Performed By: #### A DDONUAPLUS, CUU #### [address] Leukocyte esterase Test strip Ql (U) 1+ High Negative [facility] Comment on above: Order Comment: Name Collection Type:: Clean-Voided Midstream Performed By: #### A DDONUAPLUS, CUU #### [address] Nitrite,Urine Negative Normal Negative [facility] Comment on above: Order Comment: Name Collection Type:: Clean-Voided Midstream Performed By: #### A DDONUAPLUS, CUU #### [address] Occult Blood,Urine 3+ High Negative [facility] Comment on above: Order Comment: Name Collection Type:: Clean-Voided Midstream Result Comment: PERF ORMED BY: [place] [address] PATHOLOGIST TIRE SERVICER ANDRÉS MACEDO M.D. Performed By: #### A DDONUAPLUS, CUU #### [address] Othe Crystals,Urine Normal [facility] Comment on above: Order Comment: Name Collection Type:: Clean-Voided Midstream Result Comment: sulf a crystals Performed By: #### A DDONUAPLUS, CUU #### [address] pH (U) 6.5 [pH] Normal 5.0-9.0 [facility] Comment on above: Order Comment: Name Collection Type:: Clean-Voided Midstream Performed By: #### A DDONUAPLUS, CUU #### [address] Protein (U) [Mass/Vol] 100 mg/dL High Negative [facility] Comment on above: Order Comment: Name Collection Type:: Clean-Voided Midstream Performed By: #### A DDONUAPLUS, CUU #### [address] RBC,Urine 50-100 High 0-4 [facility] Comment on above: Order Comment: Name Collection Type:: Clean-Voided Midstream Performed By: #### A DDONUAPLUS, CUU #### [address] Specificy [place],Urine 1.029 Normal 1.001-1.03 0 [facility] Comment on above: Order Comment: Name Collection Type:: Clean-Voided Midstream Performed By: #### A DDONUAPLUS, CUU #### [address] Squamous Epithelial Cell,Urine 1-2 Normal 0-2 [facility] Comment on above: Order Comment: Name Collection Type:: Clean-Voided Midstream Performed By: #### A DDONUAPLUS, CUU #### [address] Urobilinogen,Urine Normal Normal Normal [facility] Comment on above: Order Comment: Name Collection Type:: Clean-Voided Midstream Performed By: #### A DDONUAPLUS, CUU #### [address] WBC,Urine 5-9 High 0-4 [facility] Comment on above: Order Comment: Name Collection Type:: Clean-Voided Midstream Performed By: #### A DDONUAPLUS, CUU #### [address] Eosinophils Auto (Bld) [#/Vo l]Ordered By: Jacky Alarcon on 03-10-2023 Eosinophils (Bld) [#/Vol] 0.1 10*3/uL 0.0-0.45 [facility] Eosinophils/100 WBC Auto (Bl d)Ordered By: Jacky Alarcon on 03-10-2023 Eosinophils/100 WBC (Bld) 0.5 % . [facility] Erythrocyte distribution wid th Auto (RBC) [Ratio]Ordered By: Jacky Alarcon on 03-10-2023 Erythrocyte distribution width (RBC) [Ratio] 13.3 % 11.9-15.3 [facility] Globulin Calc (S) [Mass/Vol] Ordered By: Jacky Alarcon on 03-10-2023 Globulin (S) [Mass/Vol] 3.5 g/dL [facility] Glucose [Mass/volume] in Ser um or PlasmaOrdered By: Jacky Alarcon on 03-10-2023 Glucose [Mass/Vol] 83 mg/dL 70-100 [facility] Comment on above: ADA recommended refe rence rangeRandom Glucose Reference Range is dependent on time and content of last meal. Glucose of more than 200 mg/dL in a nonstressed, ambulatory subject supports the diagnosis of Diabetes Mellitus. HCG ( test) IA.rapi d Ql (U)Ordered By: Jacky Alarcon on 03-10-2023 HCG ( test) Ql (U) Positive [facility] HCG,Quantitativeon 3 HCG,Quantitative 81449.00 m[iU]/mL Normal F [facility] Comment on above: Result Comment: Appr oximate Approximate hCG Gestational Age Range (mIU/ml) (weeks) 0.2-1 5-50 1-2 50-500 2-3 100-5,000 3-4 500-10,000 4-5 1,000-50,000 5-6 10,000-100,000 6-8 15,000-200,000 8-12 10,000-100,000 PERFORMED BY: [place] [address] PATHOLOGIST TIRE SERVICER ANDRÉS MACEDO M.D. Performed By: #### L IPASE, HCGQNT, HEPATIC, BMP, CBC #### [address] HCG,Urineon 03-10-2023 Beta HCG ( test) Ql (U) Positive High [facility] Comment on above: Result Comment: PERF ORMED BY: [place] [address] PATHOLOGIST TIRE SERVICER ANDRÉS MACEDO M.D. Performed By: #### U HCG #### [facility] [address] [place] [address] Hematocrit Auto (Bld) [Volum e fraction]Ordered By: Jacky Alarcon on 03-10-2023 Hematocrit (Bld) [Volume fraction] 47.2 % 34.0-46.4 [facility] Hemoglobin [Mass/volume] in BloodOrdered By: Jacky Alarcon on 03-10-2023 Hemoglobin (Bld) [Mass/Vol] 16.5 g/dL 11.8-15.4 [facility] Hepatic Panelon 03-10-2023 Albumin [Mass/Vol] 4.5 g/dL Normal 3.5-5.7 [facility] Comment on above: Performed By: #### L IPASE, HCGQNT, HEPATIC, BMP, CBC #### [facility] [address] [place] [address] [place] Albumin/Globulin [Mass ratio] 1.3 {ratio} Normal [facility] Comment on above: Performed By: #### L IPASE, HCGQNT, HEPATIC, BMP, CBC #### [facility] [address] [place] [address] [place] ALP [Catalytic activity/Vol] 71 U/L Normal 34-104 [facility] Comment on above: Performed By: #### L IPASE, HCGQNT, HEPATIC, BMP, CBC #### [facility] [address] [place] [address] [place] ALT [Catalytic activity/Vol] 36 U/L Normal 7-52 [facility] Comment on above: Performed By: #### L IPASE, HCGQNT, HEPATIC, BMP, CBC #### [facility] [address] [place] [address] [place] AST [Catalytic activity/Vol] 17 U/L Normal 13-39 [facility] Comment on above: Performed By: #### L IPASE, HCGQNT, HEPATIC, BMP, CBC #### [facility] [address] Bilirubin [Mass/Vol] 1.2 mg/dL High 0.3-1.0 [facility] Comment on above: Performed By: #### L IPASE, HCGQNT, HEPATIC, BMP, CBC #### [facility] [address] Bilirubin,Indirect 0.8 mg/dL Normal [facility] Comment on above: Performed By: #### L IPASE, HCGQNT, HEPATIC, BMP, CBC #### [facility] [address] Bilirubin.indirect [Mass/Vol] 0.40 mg/dL High 0.03-0.18 [facility] Comment on above: Performed By: #### L IPASE, HCGQNT, HEPATIC, BMP, CBC #### [address] Globulin (S) [Mass/Vol] 3.5 g/dL Normal [facility] Comment on above: Performed By: #### L IPASE, HCGQNT, HEPATIC, BMP, CBC #### [address] Protein [Mass/Vol] 8.0 g/dL Normal 6.4-8.9 [facility] Comment on above: Performed By: #### L IPASE, HCGQNT, HEPATIC, BMP, CBC #### [facility] [address] [place] [address] Ketones Auto test strip (U) [Mass/Vol]Ordered By: Jacky Alarcon on 03-10-2023 Ketones (U) [Mass/Vol] 4+ Negative [facility] - UrinalysisOrder ed By: Jacky Alarcon on 03-10-2023 Hyaline casts LM Ql (Urine sed) 9-19 [LPF] 0-8 [facility] Leukocytes [#/volume] correc anabell for nucleated erythrocytes in Blood by Automated counOrdered By: Jacky Alarcon on 03-10-2023 WBC corrected for nucl RBC Auto (Bld) [#/Vol] 16.0 10*3/uL 3.8-11.6 [facility] Lipaseon 03-10-2023 Lipase [Catalytic activity/Vol] 35.0 U/L Normal 11.0-82.0 [facility] Comment on above: Result Comment: PERF ORMED BY: [facility] [address] [id number] PATHOLOGIST TIRE SERVICER ANDRÉS MACEDO M.D. Performed By: #### L IPASE, HCGQNT, HEPATIC, BMP, CBC #### [facility] [address] Lipase [Enzymatic activity/v olume] in Serum or PlasmaOrdered By: Jacky Alarcon on 03-10-2023 Lipase [Catalytic activity/Vol] 35.0 U/L 11.0-82.0 [facility] Lymphocytes Auto (Bld) [#/Vo l]Ordered By: Jacky Alarcon on 03-10-2023 Lymphocytes (Bld) [#/Vol] 1.9 10*3/uL 1.00-4.8 [facility] Lymphocytes/100 WBC Auto (Bl d)Ordered By: Jacky Alarcon on 03-10-2023 Lymphocytes/100 WBC (Bld) 11.6 % . [facility] MCH Auto (RBC) [Entitic mass ]Ordered By: Jacky Alarcon on 03-10-2023 MCH (RBC) [Entitic mass] 30.8 pg 24.7-34.3 [facility] MCHC Auto (RBC) [Mass/Vol]Or dered By: Jacky Alarcon on 03-10-2023 MCHC (RBC) [Mass/Vol] 35.0 g/dL 32.0-35.0 [facility] MCV Auto (RBC) [Entitic vol] Ordered By: Jacky Alarcon on 03-10-2023 MCV (RBC) [Entitic vol] 87.8 fL 80-100 [facility] Monocyte distribution width [Entitic volume] in Blood by AutomatedOrdered By: Jacky Alarcon on 03-10-2023 Monocyte distribution width Auto (Bld) [Entitic vol] 16.05 % 0.00-20.00 [facility] Monocytes Auto (Bld) [#/Vol] Ordered By: Jacky Alarcon on 03-10-2023 Monocytes (Bld) [#/Vol] 1.4 10*3/uL 0.0-0.8 [facility] Monocytes/100 WBC Auto (Bld) Ordered By: Jacky Alarcon on 03-10-2023 Monocytes/100 WBC (Bld) 8.8 % . [facility] Neutrophils Auto (Bld) [#/Vo l]Ordered By: Jacky Alarcon on 03-10-2023 Neutrophils (Bld) [#/Vol] 12.6 10*3/uL 1.8-7.7 [facility] Neutrophils/100 WBC Auto (Bl d)Ordered By: Jacky Alarcon on 03-10-2023 Neutrophils/100 WBC (Bld) 78.7 % . [facility] Nitrite Test strip Ql (U)Ord ered By: Jacky Alarcon on 03-10-2023 Nitrite Ql (U) Negative Negative [facility] No Panel InformationOrdered By: Jacky Alarcon on 03-10-2023 Estimated GFR (CKD-EPI) > 60.0 mL/Min [facility] Creatinine Clearance (Chem 148.58 [facility] Nucleated erythrocytes [Pres ence] in Blood by Automated countOrdered By: Jacky Alarcon on 03-10-2023 Nucleated RBC Auto Ql (Bld) 0.1 /100{WBC} 0-0.5 [facility] Platelet mean volume Auto (B ld) [Entitic vol]Ordered By: Jacky Alarcon on 03-10-2023 Platelet mean volume (Bld) [Entitic vol] 9.7 fL 6.3-10.7 [facility] Platelets Auto (Bld) [#/Vol] Ordered By: Jacky Alarcon on 03-10-2023 Platelets (Bld) [#/Vol] 263 10*3/uL 150-450 [facility] Potassium [Moles/volume] in Serum or PlasmaOrdered By: Jacky Alarcon on 03-10-2023 Potassium [Moles/Vol] 3.3 mmol/L 3.5-5.1 [facility] Protein Auto test strip (U) [Mass/Vol]Ordered By: Jacky Alarcon on 03-10-2023 Protein (U) [Mass/Vol] 100 mg/dL Negative [facility] Protein [Mass/volume] in Ser um or PlasmaOrdered By: Jacky Alarcon on 03-10-2023 Protein [Mass/Vol] 8.0 g/dL 6.4-8.9 [facility] RBC Auto (Bld) [#/Vol]Ordere d By: Jacky Alarcon on 03-10-2023 RBC (Bld) [#/Vol] 5.37 10*6/uL 3.60-5.00 [facility] Serum or plasma albumin/glob ulin mass ratioOrdered By: Jacky Alarcon on 03-10-2023 Albumin/Globulin [Mass ratio] 1.3 {ratio} [facility] Serum or plasma anion gap de terminationOrdered By: Jacky Alarcon on 03-10-2023 Anion gap [Moles/Vol] 16.5 mmol/L 6.0-15.0 [facility] Serum or plasma non-glucuron idated bilirubin measurement (mass/volume)Ordered By: Jacky Alarcon on 03-10-2023 Bilirubin.indirect [Mass/Vol] 0.8 mg/dL [facility] Sodium [Moles/volume] in Ser um or PlasmaOrdered By: Jacky Alarcon on 03-10-2023 Sodium [Moles/Vol] 133 mmol/L 136-145 [facility] Specific gravity Auto test s trip (U) [Rel density]Ordered By: Jacky Alarcon on 03-10-2023 Specific gravity (U) [Rel density] 1.029 1.001-1.03 0 [facility] Squamous epithelial cells de tection in urine sediment by light microscopyOrdered By: Jacky Alarcon on 03-10-2023 Epithelial cells.squamous LM Ql (Urine sed) 1-2 [HPF] 0-2 [facility] Urea nitrogen [Mass/volume] in Serum or PlasmaOrdered By: Jacky Alarcon on 03-10-2023 Urea nitrogen [Mass/Vol] 6 mg/dL 7-25 [facility] Urine Cultureon 03-10-2023 Bacteria identified Cx Nom (U) >100,000 colonies/ml mixed bacterial skin contaminants 2 Days PERFORMED BY: [place] [address] [place] [address] PATHOLOGIST TIRE SERVICER ANDRÉS MACEDO M.D. Normal [facility] Comment on above: Performed By: #### A DDONUAPLUS, CUU #### [facility] [address] Urine bacteria detection by automated methodOrdered By: Jacky Alarcon on 03-10-2023 Bacteria Auto Ql (U) Rare None Seen [facility] Urine clarity by refractomet ry automatedOrdered By: Jacky Alarcon on 03-10-2023 Clarity Refractometry automated (U) Turbid Clear [facility] Urine glucose measurement by automated test strip (mass/volume)Ordered By: Jacky Alarcon on 03-10-2023 Glucose Auto test strip (U) [Mass/Vol] Normal mg/dL Normal [facility] Urine hemoglobin detection b y automated test stripOrdered By: Jacky Alarcon on 03-10-2023 Hemoglobin Auto test strip Ql (U) 3+ Negative [facility] Urine leukocyte esterase det ection by automated test stripOrdered By: Jacky Alarcon on 03-10-2023 Leukocyte esterase Auto test strip Ql (U) 1+ Negative [facility] Urine sediment crystal ident ification by light microscopyOrdered By: Jacky Alarcon on 03-10-2023 Crystals LM Nom (Urine sed) See comment [facility] Comment on above: sulfa crystals Urobilinogen Auto test strip (U) [Mass/Vol]Ordered By: Jacky Alarcon on 03-10-2023 Urobilinogen (U) [Mass/Vol] Normal mg/dL Normal [facility] WBC Auto (Bld) [#/Vol]Ordere d By: Jacky Alarcon on 03-10-2023 WBC (Bld) [#/Vol] 16.0 10*3/uL 3.8-11.6 [facility] pH Auto test strip (U)Ordere d By: Jacky Alarcon on 03-10-2023 pH (U) 6.5 [pH] 5.0-9.0 [facility] CBC AUTO DIFFon 07-30-2022 BASO # 0.1 103/ul Normal 0.0-0.1 [facility] Comment on above: Performed By: #### G TT3P #### [facility] [address] [address] [address] Jackelyn Celestin Basophils/100 WBC (Bld) 0.6 % Normal 0.2-2.0 [facility] Comment on above: Performed By: #### G TT3P #### [facility] [address] [place] [address] Dr. Jackelyn Celestin EO # 0.2 103/ul Normal 0.0-0.7 [facility] Comment on above: Performed By: #### G TT3P #### [facility] [address] [place] [address] Dr. Jackelyn Celestin Eosinophils/100 WBC (Bld) 1.5 % Normal 0.9-7.0 [facility] Comment on above: Performed By: #### G TT3P #### [facility] [address] [place] [address] Dr. Jackelyn Celestin Erythrocyte distribution width (RBC) [Ratio] 14.5 % Normal 11.0-15.0 [facility] Comment on above: Performed By: #### G TT3P #### [facility] [address] [place] [address] Dr. Jackelyn Celestin Hematocrit (Bld) [Volume fraction] 33.9 % Critically low 36.0-48.0 [facility] Comment on above: Performed By: #### G TT3P #### [facility] [address] [place] [address] Dr. Jackelyn Celestin Hemoglobin (Bld) [Mass/Vol] 11.0 g/dL Critically low 12.0-16.0 [facility] Comment on above: Performed By: #### G TT3P #### [facility] [address] [place] [address] Dr. Jackelyn Celestin IG # 0.13 10e3/ul Critically high 0.00-0.03 [facility] Comment on above: Performed By: #### G TT3P #### [facility] [address] [place] [address] Dr. Jackelyn Celestin IG % 1.1 % Critically high 0.0-0.5 [facility] Comment on above: Performed By: #### G TT3P #### [facility] [address] [place] [address] Dr. Jackelyn Celestin LYMPH # 2.2 103/ul Normal 1.2-3.8 [facility] Comment on above: Performed By: #### G TT3P #### [facility] [address] [place] [address] Dr. Jackelyn Celestin Lymphocytes/100 WBC (Bld) 17.9 % Critically low 20.5-60.0 [facility] Comment on above: Performed By: #### G TT3P #### [facility] [address] [place] [address] Dr. Jackelyn Celestin MANUAL DIFF REQ NO Normal [facility] Comment on above: Performed By: #### G TT3P #### [facility] [address] [place] [address] Dr. Jackelyn Celestin MCH (RBC) [Entitic mass] 28.6 pg Normal 26.7-34.0 [facility] Comment on above: Performed By: #### G TT3P #### [facility] [address] [place] [address] Dr. Jackelyn Celestin MCHC (RBC) [Mass/Vol] 32.4 g/dL Normal 29.9-35.2 [facility] Comment on above: Performed By: #### G TT3P #### [facility] [address] [place] [address] Dr. Jackelyn Celestin MCV (RBC) [Entitic vol] 88.1 fL Normal 81.0-99.0 [facility] Comment on above: Performed By: #### G TT3P #### [facility] [address] [place] [address] Dr. Jackelyn Celestin MONO # 0.8 103/ul Normal 0.3-0.8 [facility] Comment on above: Performed By: #### G TT3P #### [facility] [address] [place] [address] Dr. Jackelyn Celestin Monocytes/100 WBC (Bld) 6.9 % Normal 1.7-12.0 [facility] Comment on above: Performed By: #### G TT3P #### [facility] [address] [place] [address] Dr. Jackelyn Celestin NEUT # 8.7 103/ul Critically high 1.4-6.5 [facility] Comment on above: Performed By: #### G TT3P #### [facility] [address] [place] [address] Dr. Jackelyn Celestin Neutrophils/100 WBC (Bld) 72.0 % Normal 43.0-75.0 [facility] Comment on above: Performed By: #### G TT3P #### [facility] [address] [place] [address] Dr. Jackelyn Celestin Platelet mean volume (Bld) [Entitic vol] 11.5 fL Normal 9.5-13.5 [facility] Comment on above: Performed By: #### G TT3P #### [facility] [address] [place] [address] Dr. Jackelyn Celestin PLT 146 103/ul Critically low 150-450 [facility] Comment on above: Performed By: #### G TT3P #### [facility] [address] [place] [address] Dr. Jackelyn Celestin RBC 3.85 106/ul Critically low 4.20-5.40 [facility] Comment on above: Performed By: #### G TT3P #### [facility] [address] [place] [address] Dr. Jackelyn Celestin WBC 12.1 103/ul Critically high 4.0-11.0 [facility] Comment on above: Performed By: #### G TT3P #### [facility] [address] [place] [address] Dr. Jackelyn Celestin CBC AUTO DIFFon 07-29-2022 BASO # 0.0 103/ul Normal 0.0-0.1 [facility] Comment on above: Performed By: #### [id number] #### [facility] [address] [place] [address] Dr. Jackelyn Celestin Basophils/100 WBC (Bld) 0.4 % Normal 0.2-2.0 [facility] Comment on above: Performed By: #### 4 [id number] #### [facility] [address] [place] [address] Dr. Jackelyn Celestin EO # 0.2 103/ul Normal 0.0-0.7 [facility] Comment on above: Performed By: #### 4 [id number] #### [facility] [address] [place] [address] Dr. Jackelyn Celestin Eosinophils/100 WBC (Bld) 1.4 % Normal 0.9-7.0 [facility] Comment on above: Performed By: #### 4 [id number] #### [facility] [address] [place] [address] Dr. Jackelyn Celestin Erythrocyte distribution width (RBC) [Ratio] 14.1 % Normal 11.0-15.0 [facility] Comment on above: Performed By: #### 4 [id number] #### [facility] [address] [place] [address] Dr. Jackelyn Celestin Hematocrit (Bld) [Volume fraction] 36.0 % Normal 36.0-48.0 [facility] Comment on above: Performed By: #### 4 [id number] #### [facility] [address] [place] [address] Dr. Jackelyn Celestin Hemoglobin (Bld) [Mass/Vol] 12.2 g/dL Normal 12.0-16.0 [facility] Comment on above: Performed By: #### 4 [id number] #### [facility] [address] [place] [address] Dr. Jackelyn Celestin IG # 0.10 10e3/ul Critically high 0.00-0.03 [facility] Comment on above: Performed By: #### [id number] #### [facility] [address] [place] [address] Dr. Jackelyn Celestin IG % 0.9 % Critically high 0.0-0.5 [facility] Comment on above: Performed By: #### 4 [id number] #### [facility] [address] [place] [address] Dr. Jackelyn Celestin LYMPH # 1.9 103/ul Normal 1.2-3.8 [facility] Comment on above: Performed By: #### 4 [id number] #### [facility] [address] [place] [address] Dr. Jackelyn Celestin Lymphocytes/100 WBC (Bld) 17.7 % Critically low 20.5-60.0 [facility] Comment on above: Performed By: #### 4 [id number] #### [facility] [address] [place] [address] Dr. Jackelyn Celestin MANUAL DIFF REQ NO Normal [facility] Comment on above: Performed By: #### 4 [id number] #### [facility] [address] [place] [address] Dr. Jackelyn Celestin MCH (RBC) [Entitic mass] 28.8 pg Normal 26.7-34.0 [facility] Comment on above: Performed By: #### 4 [id number] #### [facility] [address] [place] [address] Dr. Jackelyn Celestin MCHC (RBC) [Mass/Vol] 33.9 g/dL Normal 29.9-35.2 [facility] Comment on above: Performed By: #### 4 [id number] #### [facility] [address] [place] [address] Dr. Jackelyn Celestin MCV (RBC) [Entitic vol] 84.9 fL Normal 81.0-99.0 [facility] Comment on above: Performed By: #### 4 [id number] #### [facility] [address] [place] [address] Dr. Jackelyn Celestin MONO # 0.9 103/ul Critically high 0.3-0.8 [facility] Comment on above: Performed By: #### 4 [id number] #### [facility] [address] [place] [address] Dr. Jackelyn Celestin Monocytes/100 WBC (Bld) 8.4 % Normal 1.7-12.0 [facility] Comment on above: Performed By: #### 4 [id number] #### [facility] [address] [place] [address] Dr. Jackelyn Celestin NEUT # 7.7 103/ul Critically high 1.4-6.5 [facility] Comment on above: Performed By: #### 4 [id number] #### [facility] [address] [place] [address] Dr. Jackelyn Celestin Neutrophils/100 WBC (Bld) 71.2 % Normal 43.0-75.0 [facility] Comment on above: Performed By: #### 4 [id number] #### [facility] [address] [place] [address] Dr. Jackelyn Celestin Platelet mean volume (Bld) [Entitic vol] 10.9 fL Normal 9.5-13.5 [facility] Comment on above: Performed By: #### 4 [id number] #### [facility] [address] [place] [address] Dr. Jackelyn Celestin PLT 170 103/ul Normal 150-450 [facility] Comment on above: Performed By: #### 4 [id number] #### [facility] [address] [place] [address] Dr. Jackelyn Celestin RBC 4.24 106/ul Normal 4.20-5.40 [facility] Comment on above: Performed By: #### 4 [id number] #### [facility] [address] [place] [address] Dr. Jackelyn Celestin WBC 10.8 103/ul Normal 4.0-11.0 [facility] Comment on above: Performed By: #### 4 [id number] #### [facility] [address] [place] [address] Dr. Jackelyn Celestin DRUG SCREEN RAPID (URINE)on 07-29-2022 AMP Negative Normal NEGATIVE [facility] Comment on above: Performed By: #### 4 [id number] #### [facility] [address] [place] [address] Dr. Jackelyn Celestin BAR Negative Normal NEGATIVE [facility] Comment on above: Performed By: #### 4 [id number] #### [facility] [address] [place] [address] Dr. Jackelyn Celestin BUP Negative Normal NEGATIVE [facility] Comment on above: Performed By: #### 4 [id number] #### [facility] [address] [place] [address] Dr. Jackelyn Celestin BZO Negative Normal NEGATIVE [facility] Comment on above: Performed By: #### 4 [id number] #### [facility] [address] [place] [address] Dr. Jackelyn Celestin HOMERO Negative Normal NEGATIVE [facility] Comment on above: Performed By: #### 4 [id number] #### [facility] [address] [place] [address] Dr. Jackelyn Celestin CUT-OFFS SEE BELOW Normal [facility] Comment on above: Result Comment: AMP (Amphetamine): 500ng/mL, BAR (Barbituates): 200 ng/mL, BZO (Benzodiazepines): 150 ng/mL, BUP (Buprenorphine): 10 ng/mL, HOMERO (Cocaine): 150 ng/mL, mAMP (Methamphetamine): 500 ng/mL, MTD (Methadone): 200 ng/mL, OPI (Opiates): 100 ng/mL, OXY (Oxycodone): 100 ng/mL, PCP (Phencyclidine): 25 ng/mL, PPX (Propoxyphene): 300 ng/mL, THC (Cannabinoids): 50 ng/mL, TCA (Trycyclic Antidepressants): 300 ng/mL Performed By: #### [id number] #### [facility] [address] [place] [address] Dr. Jackelyn Celestin DRUG CUT HEADER DRUG CLASS TEST SYST EM CUT-OFF CONCENTRATIONS ARE FOLLOWS: Normal [facility] Comment on above: Performed By: #### 4 [id number] #### [facility] [address] [place] [address] Dr. Jackelyn Celestin mAMP Negative Normal NEGATIVE [facility] Comment on above: Performed By: #### 4 [id number] #### [facility] [address] [place] [address] Dr. Jackelyn Celestin MTD Negative Normal NEGATIVE [facility] Comment on above: Performed By: #### 4 [id number] #### [facility] [address] [place] [address] Dr. Jackelyn Celestin OPI Negative Normal NEGATIVE [facility] Comment on above: Performed By: #### 4 [id number] #### [facility] [address] [place] [address] Dr. Jackelyn Celestin OXY Negative Normal NEGATIVE [facility] Comment on above: Performed By: #### 4 [id number] #### [facility] [address] [place] [address] Dr. Jackelyn Celestin PCP Negative Normal NEGATIVE [facility] Comment on above: Performed By: #### 4 [id number] #### [facility] [address] [place] [address] Dr. Jackelyn Celestin PPX Negative Normal NEGATIVE [facility] Comment on above: Performed By: #### [id number] #### [facility] [address] [place] [address] Dr. Jackelyn Celestin TCA Negative Normal NEGATIVE [facility] Comment on above: Performed By: #### 4 [id number] #### [facility] [address] [place] [address] Dr. Jackelyn Celestin THC Negative Normal NEGATIVE [facility] Comment on above: Performed By: #### 4 [id number] #### [facility] [address] [place] [address] Dr. Jackelyn Celestin TYPE AND SCREENon 07-29-2022 TYPE AND SCREEN Negative Normal [facility] Comment on above: Performed By: #### G TT3P #### [facility] [address] [place] [address] Dr. Jackelyn Celestin US PREG GROWTHon 07-25-2022 [...] TRISTAN HART Date: 2022-07-24 22:37 Normal [facility] GROUP B STREP CULTUREon 06-09 S. agalactiae Ag Ql (Unsp spec) Culture Observations: NEGATIVE FOR GROUP B STREPTOCOCCUS. Normal [facility] Comment on above: Performed By: #### G TT3P #### [facility] [address] [place] [address] Dr. Jackelyn Celestin US PREG GROWTHon 06-06-2022 [...] TRISTAN HART Date: 2022-06-06 15:39 Normal [facility] GTT 3 HR PREGon 05-21-2022 Glucose [Mass/Vol] 91 mg/dL Normal 74-106 [facility] Comment on above: Performed By: #### G TT3P #### [facility] [address] [place] [address] Dr. Jackelyn Celestin Glucose [Mass/Vol] 168 mg/dL Normal [facility] Comment on above: Performed By: #### G TT3P #### [facility] [address] [address] [address] Jackelyn Celestin Glucose [Mass/Vol] 121 mg/dL [facility] Comment on above: Performed By: #### G TT3P #### [facility] [address] [place] [address] Dr. Jackelyn Celestin Glucose [Mass/Vol] 86 mg/dL [facility] Comment on above: Performed By: #### G TT3P #### [facility] [address] [place] [address] Dr. Jackelyn Celestin PAP ACOG PANEL 2: 21 to 29on 05-17-2022 . . Normal [facility] Comment on above: Performed By: #### [id number] #### [facility] [address] [place] [address] Dr. Jackelyn Celestin DIAGNOSIS: Comment [facility] Comment on above: Result Comment: NEGA TIVE FOR INTRAEPITHELIAL LESION OR MALIGNANCY. Performed By: #### [id number] #### [facility] [address] [place] [address] Dr. Jackelyn Celestin Methodology: Comment [facility] Comment on above: Result Comment: This liquid based ThinPrep(R) pap test was screened with the use of an image guided system. Performed By: #### [id number] #### [facility] [address] [place] [address] Dr. Jackelyn Celestin Note: Comment [facility] Comment on above: Result Comment: The Pap smear is a screening test designed to aid in the detection of premalignant and malignant conditions of the uterine cervix. It is not a diagnostic procedure and should not be used as the sole means of detecting cervical cancer. Both false-positive and false-negative reports do occur. . Performed By: #### 4 [id number] #### [facility] [address] [place] [address] Dr. Jackelyn Celestin Performed by: Comment [facility] Comment on above: Result Comment: Alphonso Walker, Public Relations Player (ASCP) Performed By: #### 4 [id number] #### [facility] [address] [place] [address] Dr. Jackelyn Celestin Reflex Criteria: Comment Normal [facility] Comment on above: Result Comment: The HPV DNA reflex criteria were not met with this specimen result therefore, no HPV testing was performed. . Performed By: #### 4 [id number] #### [facility] [address] [place] [address] Dr. Jackelyn Celestin Specimen adequacy: Comment Normal [facility] Comment on above: Result Comment: Sati sfactory for evaluation. No endocervical component is identified. Performed By: #### 4 [id number] #### [facility] [address] [place] [address] Dr. Jackelyn Celestin Age Gdln ACOG Testing 21-29 Normal [facility] Comment on above: Performed By: #### 4 [id number] #### [facility] [address] [place] [address] Dr. Jackelyn Celestin CHLAMYDIA/GONOCOCCUS ALONDRA ( AB/URINE/PAPon 05-14-2022 Chlamydia trachomatis, ALONDRA Negative Normal Negative [facility] Comment on above: Performed By: #### G TT3P #### [facility] [address] [place] [address] Dr. Jackelyn Celestin Neisseria gonorrhoeae, ALONDRA Negative Normal Negative [facility] Comment on above: Performed By: #### G TT3P #### [facility] [address] [place] [address] Dr. Jackelyn Celestin VAGINITIS/VAGINOSIS DNA PROB Dean 05-13-2022 Thao species Negative Normal Negative [facility] Comment on above: Performed By: #### 4 [id number] #### [facility] [address] [place] [address] Dr. Jackelyn Celestin Gardnerella vaginalis Negative Normal Negative [facility] Comment on above: Performed By: #### 4 [id number] #### [facility] [address] [place] [address] Dr. Jackelyn Celestin Trichomonas vaginalis Negative Normal Negative [facility] Comment on above: Performed By: #### 4 [id number] #### [facility] [address] [place] [address] Dr. Jackelyn Celestin CBC AUTO DIFFon 05-09-2022 BASO # 0.0 103/ul Normal 0.0-0.1 [facility] Comment on above: Performed By: #### C BC #### [facility] [address] [place] [address] Dr. Jackelyn Celestin Basophils/100 WBC (Bld) 0.3 % Normal 0.2-2.0 [facility] Comment on above: Performed By: #### C BC #### [facility] [address] [place] [address] Dr. Jcakelyn Celestin EO # 0.1 103/ul Normal 0.0-0.7 [facility] Comment on above: Performed By: #### C BC #### [facility] [address] [place] [address] Dr. Jackelyn Celestin Eosinophils/100 WBC (Bld) 1.2 % Normal 0.9-7.0 [facility] Comment on above: Performed By: #### C BC #### [facility] [address] [place] [address] Dr. Jackelyn Celestin Erythrocyte distribution width (RBC) [Ratio] 11.9 % Normal 11.0-15.0 [facility] Comment on above: Performed By: #### C BC #### [facility] [address] [place] [address] Dr. Jackelyn Celestin Hematocrit (Bld) [Volume fraction] 33.7 % Critically low 36.0-48.0 [facility] Comment on above: Performed By: #### C BC #### [facility] [address] [place] [address] Dr. Jackelyn Celestin Hemoglobin (Bld) [Mass/Vol] 12.0 g/dL Normal 12.0-16.0 [facility] Comment on above: Performed By: #### C BC #### [facility] [address] [place] [address] Dr. Jackelyn Celestin IG # 0.07 10e3/ul Critically high 0.00-0.03 [facility] Comment on above: Performed By: #### C BC #### [facility] [address] [place] [address] Dr. Jackelyn Celestin IG % 0.6 % Critically high 0.0-0.5 [facility] Comment on above: Performed By: #### C BC #### [facility] [address] [place] [address] Dr. Jackelyn Celestin LYMPH # 1.3 103/ul Normal 1.2-3.8 [facility] Comment on above: Performed By: #### C BC #### [facility] [address] [place] [address] Dr. Jackelyn Celestin Lymphocytes/100 WBC (Bld) 11.5 % Critically low 20.5-60.0 [facility] Comment on above: Performed By: #### C BC #### [facility] [address] [place] [address] Dr. Jackelyn Celestin MANUAL DIFF REQ NO Normal [facility] Comment on above: Performed By: #### C BC #### [facility] [address] [place] [address] Dr. Jackelyn Celestin MCH (RBC) [Entitic mass] 31.0 pg Normal 26.7-34.0 [facility] Comment on above: Performed By: #### C BC #### [facility] [address] [place] [address] Dr. Jackelyn Celestin MCHC (RBC) [Mass/Vol] 35.6 g/dL Critically high 29.9-35.2 [facility] Comment on above: Performed By: #### C BC #### [facility] [address] [place] [address] Dr. Jackelyn Celestin MCV (RBC) [Entitic vol] 87.1 fL Normal 81.0-99.0 [facility] Comment on above: Performed By: #### C BC #### [facility] [address] [place] [address] Dr. Jackelyn Celestin MONO # 0.5 103/ul Normal 0.3-0.8 [facility] Comment on above: Performed By: #### C BC #### [facility] [address] [place] [address] Dr. Jackelyn Celestin Monocytes/100 WBC (Bld) 4.8 % Normal 1.7-12.0 [facility] Comment on above: Performed By: #### C BC #### [facility] [address] [place] [address] Dr. Jackelyn Celestin NEUT # 8.9 103/ul Critically high 1.4-6.5 [facility] Comment on above: Performed By: #### C BC #### [facility] [address] [place] [address] Dr. Jackelyn Celestin Neutrophils/100 WBC (Bld) 81.6 % Critically high 43.0-75.0 [facility] Comment on above: Performed By: #### C BC #### [facility] [address] [place] [address] Dr. Jackelyn Celestin Platelet mean volume (Bld) [Entitic vol] 11.3 fL Normal 9.5-13.5 [facility] Comment on above: Performed By: #### C BC #### [facility] [address] [place] [address] Dr. Jackelyn Celestin PLT 171 103/ul Normal 150-450 [facility] Comment on above: Performed By: #### C BC #### [facility] [address] [place] [address] Dr. Jackelyn Celestin RBC 3.87 106/ul Critically low 4.20-5.40 [facility] Comment on above: Performed By: #### C BC #### [facility] [address] [place] [address] Dr. Jackelyn Celestin WBC 10.9 103/ul Normal 4.0-11.0 [facility] Comment on above: Performed By: #### C BC #### [facility] [address] [place] [address] Dr. Jackelyn Celestin GLUCOSE - 1HRon 05-09-2022 Glucose [Mass/Vol] 142 mg/dL Critically high 74-106 [facility] Comment on above: Performed By: #### 4 [id number] #### [facility] [address] [place] [address] Dr. Jackelyn Celestin US PREG BIOPHY W [...] by: TRISTAN HART Date: 2022-05-09 10:35 Normal [facility] US PREG PLACENTAon US PREG PLACENTA EXAMINATION: US PREG PLACENTA HISTORY: Falls ; mild cramping after falling COMPARISON: Ultrasound anatomy 03/17/2022 FINDINGS: PLACENTA: Posterior without previa, subchorionic hematoma, or abruption. CERVIX LENGTH: Not evaluated. HEART RATE: 158 bpm OTHER: None. IMPRESSION: 1. Unremarkable posterior placenta. No suspicious findings. Electronically authenticated by: TRISTAN HART Date: 2022-05-09 10:29 Normal [facility] US PREG ANATOMY SINGLEon US PREG [...] TRISTAN HART Date: 2022-03-17 16:29 Normal [facility] HEP B SURFACE ANTIGEN SCREEN on 02-15-2022 HBsAg Screen Negative Normal Negative [facility] Comment on above: Performed By: #### 4 [id number] #### [facility] [address] [address] [address] Jackelyn Celestin HEPATITIS C VIRUS AB W/ REFL EX QUANTon 02-15-2022 HCV AB <0.1 Normal 0.0-0.9 [facility] Comment on above: Performed By: #### H CVPCRR #### [facility] [address] [place] [address] Dr. Jackelyn Celestin Interpretation: Comment Normal [facility] Comment on above: Result Comment: Nega tive Not infected with HCV, unless recent infection is suspected or other evidence exists to indicate HCV infection. Performed By: #### H CVPCRR #### [facility] [address] [address] [address] Jackelyn Celestin HIV 1 AND 2 WITH REFLEXon HIV Screen 4th Generation wRfx Non-Reactive Normal Non Reactive [facility] Comment on above: Result Comment: HIV Negative HIV-1/HIV-2 antibodies and HIV-1 p24 antigen were NOT detected. There is no laboratory evidence of HIV infection. Performed By: #### H IV12 #### [facility] [address] [place] [address] Dr. Jackelyn Celestin RPR QUANTon 02-15-2022 Rapid Plasma Reagin, Quant Non-Reactive Normal NonRea<1:1 [facility] Comment on above: Result Comment: Plea se Note: This test does not meet current guidelines for screening and diagnosis of syphilis. This test is intended for following treatment response in patients being treated for syphilis infection. To screen for syphilis infection, a reflex cascade that includes both RPR and a treponema-specific assay should be utilized, such as Treponema pallidum (Syphilis) Screening [place] (305863) or Rapid Plasma Reagin (RPR) Test With Reflex to Quantitative RPR and Confirmatory Treponema pallidum Antibodies (039753). Performed By: #### R PRQ #### [facility] [address] [place] [address] Dr. Jackelyn Celestin RUBELLA AB IGGon 02-15-2022 Rubella Antibodies, IgG 1.97 index Normal Immune >0.99 [facility] Comment on above: Result Comment: Non- immune <0.90 Equivocal 0.90 - 0.99 Immune >0.99 Performed By: #### R UBIGG #### [facility] [address] [place] [address] Dr. Jackelyn Celestin CBC AUTO DIFFon 02-12-2022 BASO # 0.0 103/ul Normal 0.0-0.1 [facility] Comment on above: Performed By: #### C BC #### [facility] [address] [place] [address] Dr. Jackelyn Celestin Basophils/100 WBC (Bld) 0.4 % Normal 0.2-2.0 [facility] Comment on above: Performed By: #### C BC #### [facility] [address] [place] [address] Dr. Jackelyn Celestin EO # 0.2 103/ul Normal 0.0-0.7 [facility] Comment on above: Performed By: #### C BC #### [facility] [address] [place] [address] Dr. Jackelyn Celestin Eosinophils/100 WBC (Bld) 2.0 % Normal 0.9-7.0 [facility] Comment on above: Performed By: #### C BC #### [facility] [address] [place] [address] Dr. Jackelyn Celestin Erythrocyte distribution width (RBC) [Ratio] 12.8 % Normal 11.0-15.0 [facility] Comment on above: Performed By: #### C BC #### [facility] [address] [place] [address] Dr. Jackelyn Celestin Hematocrit (Bld) [Volume fraction] 40.7 % Normal 36.0-48.0 [facility] Comment on above: Performed By: #### C BC #### [facility] [address] [place] [address] Dr. Jackelyn Celestin Hemoglobin (Bld) [Mass/Vol] 14.4 g/dL Normal 12.0-16.0 [facility] Comment on above: Performed By: #### C BC #### [facility] [address] [place] [address] Dr. Jackelyn Celestin IG # 0.05 10e3/ul Critically high 0.00-0.03 [facility] Comment on above: Performed By: #### C BC #### [facility] [address] [place] [address] Dr. Jackelyn Celestin IG % 0.4 % Normal 0.0-0.5 [facility] Comment on above: Performed By: #### C BC #### [facility] [address] [place] [address] Dr. Jackelyn Celestin LYMPH # 1.7 103/ul Normal 1.2-3.8 [facility] Comment on above: Performed By: #### C BC #### [facility] [address] [place] [address] Dr. Jackelyn Celestin Lymphocytes/100 WBC (Bld) 15.1 % Critically low 20.5-60.0 [facility] Comment on above: Performed By: #### C BC #### [facility] [address] [place] [address] Dr. Jackelyn Celestin MANUAL DIFF REQ NO Normal [facility] Comment on above: Performed By: #### C BC #### [facility] [address] [place] [address] Dr. Jackelyn Celestin MCH (RBC) [Entitic mass] 31.2 pg Normal 26.7-34.0 [facility] Comment on above: Performed By: #### C BC #### [facility] [address] [place] [address] Dr. Jackelyn Celestin MCHC (RBC) [Mass/Vol] 35.4 g/dL Critically high 29.9-35.2 [facility] Comment on above: Performed By: #### C BC #### [facility] [address] [place] [address] Dr. Jackelyn Celestin MCV (RBC) [Entitic vol] 88.1 fL Normal 81.0-99.0 [facility] Comment on above: Performed By: #### C BC #### [facility] [address] [place] [address] Dr. Jackelyn Celestin MONO # 0.4 103/ul Normal 0.3-0.8 [facility] Comment on above: Performed By: #### C BC #### [facility] [address] [place] [address] Dr. Jackelyn Celestin Monocytes/100 WBC (Bld) 3.3 % Normal 1.7-12.0 [facility] Comment on above: Performed By: #### C BC #### [facility] [address] [place] [address] Dr. Jackelyn Celestin NEUT # 8.8 103/ul Critically high 1.4-6.5 [facility] Comment on above: Performed By: #### C BC #### [facility] [address] [place] [address] Dr. Jackelyn Celestin Neutrophils/100 WBC (Bld) 78.8 % Critically high 43.0-75.0 [facility] Comment on above: Performed By: #### C BC #### [facility] [address] [place] [address] Dr. Jackelyn Celestin Platelet mean volume (Bld) [Entitic vol] 11.6 fL Normal 9.5-13.5 [facility] Comment on above: Performed By: #### C BC #### [facility] [address] [place] [address] Dr. Jackelyn Celestin PLT 203 103/ul Normal 150-450 [facility] Comment on above: Performed By: #### C BC #### [facility] [address] [place] [address] Dr. Jackelyn Celestin RBC 4.62 106/ul Normal 4.20-5.40 [facility] Comment on above: Performed By: #### C BC #### [facility] [address] [place] [address] Dr. Jackelyn Celestin WBC 11.2 103/ul Critically high 4.0-11.0 [facility] Comment on above: Performed By: #### C BC #### [facility] [address] [place] [address] Dr. Jackelyn Celestin CULTURE URINEon 02-12-2022 CULTURE URINE Culture Observations : NO GROWTH. Normal [facility] Comment on above: Performed By: #### U RCX #### [facility] [address] [place] [address] Dr. Jackelyn Celestin GLYCOHEMOGLOBIN A1Con 2021 ADA RECOMMENDATION SEE BELOW Normal [facility] Comment on above: Result Comment: ADA RECOMMENDED LIMIT 4.0 - 6.0 ADA THERAPEUTIC TARGET < 7.0 ACTION SUGGESTED > 7.0 Performed By: #### 4 [id number] #### [facility] [address] [place] [address] Dr. Jackelyn Celestin Glucose [Mass/Vol] 94 mg/dL Normal [facility] Comment on above: Performed By: #### 4 [id number] #### [facility] [address] [place] [address] Dr. Jackelyn Celestin HbA1c (Bld) [Mass fraction] 4.9 % Normal 4.5-6.2 [facility] Comment on above: Performed By: #### 4 [id number] #### [facility] [address] [place] [address] Dr. Jackelyn Celestin TYPE AND SCREENon 02-12-2022 TYPE AND SCREEN Negative Normal [facility] Comment on above: Performed By: #### T NS #### [facility] [address] [place] [address] Dr. Jackelyn Celestin US PREG TVon 01-21-2022 [...] by: DONALD AGUILAR Date: 2022-01-21 16:41 Normal [facility] Coding Summary.on 12-12-2019 Coding Summary. CODING DATE: 020 FINAL [facility] STATUS: Home (Routine DC) PAYOR: [...] CphT Date Saved: 12/12/2019 10:59 am Normal [facility] Office/Clini c Noteon 11-21-2019 Family [...] day(s), # 20 tab(s), Refills(s) 0, Pharmacy: [facility], 159, cm, 11/21/19 19:13:00 EDT, Height/Length Dosing, 96, kg, 11/21/19 19:13:00 EDT, Weight Dosing Follow-up No qualifying data available Patient Education Body Mass Index, BMI DASH Diet MyPlate from [employer] Obesity Otitis Media, Adult Problem List/Past Medical [...] cancer: Grandparent. Hypertension: Grandparent. Stroke: Grandparent. Normal [facility] Comment on above: Result Comment: Elec tronically [...] Document Reviewed: 01/04/2006 ExitCare? Patient Information ?2014 [employer]. DASH Diet The DASH diet stands for [...] beef, chicken breast, turkey breast. All fish. [place], bake, or broil your meat. Nothing should [...] Document Reviewed: 03/15/2012 ExitCare? Patient Information ?2013 [employer]. [employer], [employer] The amount you need to eat from [...] Document Reviewed: 06/16/2008 ExitCare? Patient Information ?2013 [employer] [facility]. Family Medicine Obesity Obesity is defined as [...] Document Reviewed: 05/02/2012 ExitCare? Patient Information ?2013 [employer]. Otitis Media, Adult A middle ear infection [...] the first few days. ? Only take [id number] or prescription medicines for pain, discomfort, or [...] Document Reviewed: 10/31/2008 ExitCare? Patient Information ?2013 [employer]. Normal [facility] SARS-CoV-2, NAAon 11-20-2019 SARS CORONAVIRUS 2 RNA:PRTHR:PT:RESPIRATO RY:ORD:PROBE.AMP.TAR Not Detected Not Detected [facility] Comment on above: Result Comment: This test was developed and its performance characteristics determined by [employer]. This test has not been FDA cleared [...] result in this assay. Performed at: [facility] [address] [facility] [place] [id number] MD Malaika Velez Performed By: #### S ARS-CoV-2, ALONDRA #### [facility] [address] [place] [address] [facility] Medicine Video Visit - Telehealthon 11-16-2019 [...] interactive video communications from my office using [employer] due to the restrictions of the COVID-19 pandemic. No physical exam was conducted other than those areas of the body visible to telecommunications with the patient located at [address] [phone], with no one else in attendance. If [...] cancer: Grandparent. Hypertension: Grandparent. Stroke: Grandparent. Normal [facility] Comment on above: Result Comment: Elec tronically Signed By: Abbey ESTRADA CNP\.ynes\Date and Time Signed: 11/16/19 14:27 EDT URINE CULTUREon 07-10-2017 Urine culture, bacteria SPECIMEN DESCRIPTION URINE CLEAN CATCHUA DIPSTICK NITRITE NEGATIVE * Result Note: LEUKOCYTE NEGATIVE *CULTURE ESCHERICHIA COLI * Result Note: 50,000 C/C/ML * * Result Note: Testing performed at [facility], [place], [place] [address] *REPORT STATUS 07/10/2017 * Result Note: FINAL * O RGANISM ESCHERICHIA COLI * Result Note: ESCHERICHIA COLI *METHOD MICAMPICILLIN <=2 SUSCEPTIBLEAMPICILLIN/SULBA CTAM <=2 SUSCEPTIBLECEFTRIAXONE <=1 SUSCEPTIBLECEFAZOLIN <=4 SUSCEPTIBLEIMIPENEM <=0.25 SUSCEPTIBLEGENTAMICIN <=1 SUSCEPTIBLETRIMETH-SULFA <=20 SUSCEPTIBLEAMOXICILLIN/CLAV ULANIC A <=2 SUSCEPTIBLENITROFURANTOIN 32 SUSCEPTIBLEPIPERACILLIN/SADA OBACTAM <=4 SUSCEPTIBLELEVOFLOXACIN <=0.12 SUSCEPTIBLEESBL NEGATIVECEFTAZIDIME <=1 SUSCEPTIBLE Normal [facility] Comment on above: Performed By: #### A URNC ####Testing performed at [address] [address]Gzjfmuv performed at [address] [address] BHCG,QUANTITATIVEon 07-08-19 18 BHCG,QUANTITATIVE 133.56 MIU/ML Normal [facility] Comment on above: Result Comment: [facility] INTERPRETIVE RANGES: NON [...] #### A CBC, BHCG2 ####Testing performed at [address] [address] CBCon 07-07-2017 ABSOLUTE BAS 0.1 X10 Normal [facility] Comment on above: Performed By: #### A CBC, BHCG2 ####Testing performed at [address] [place] [address] ABSOLUTE EOS 0.20 X10 Normal [facility] Comment on above: Performed By: #### A CBC, BHCG2 ####Testing performed at [address] [place] [address] Basophils/100 WBC Auto (Bld) 0.6 % Normal 0.0-2.0 [facility] Comment on above: Performed By: #### A CBC, BHCG2 ####Testing performed at [address] [place] [address] DTYPE AUTO DIFF Normal [facility] Comment on above: Performed By: #### A CBC, BHCG2 ####Testing performed at [address] [place] [address] Eosinophils/100 leukocytes 2.0 % Normal 0.0-11.0 [facility] Comment on above: Performed By: #### A CBC, BHCG2 ####Testing performed at [address] [place] [address] Lymphocytes 2.00 X10 Normal [facility] Comment on above: Performed By: #### A CBC, CG2 ####Testing performed at [address] [place] [address] Lymphocytes/100 leukocytes 23.0 % Normal 20.0-55.0 [facility] Comment on above: Performed By: #### A CBC, BHCG2 ####Testing performed at [address] [place] [address] Monocytes 0.6 X10 Normal [facility] Comment on above: Performed By: #### A CBC, BHCG2 ####Testing performed at [address] [address] Monocytes/100 leukocytes 7.1 % Normal 0.0-10.0 [facility] Comment on above: Performed By: #### A CBC, BHCG2 ####Testing performed at [address] [place] [address] Neutrophils 5.9 x10 Normal 1.0-7.0 [facility] Comment on above: Performed By: #### A CBC, BHCG2 ####Testing performed at [address] [address] Neutrophils/100 leukocytes 67.3 % Normal 37.0-75.0 [facility] Comment on above: Performed By: #### A CBC, BHCG2 ####Testing performed at [address] [address] Erythrocyte distribution width Auto Ratio (RBC) 12.1 % Normal 11.5-14.5 [facility] Comment on above: Performed By: #### A CBC, BHCG2 ####Testing performed at [address] [address] Erythrocytes (RBC) 4.72 /cmm Normal 4.0-5.4 [facility] Comment on above: Performed By: #### A CBC BHCG2 ####Testing performed at [address] [address] Hematocrit (HCT) 43.2 % Normal 36.0-48.0 [facility] Comment on above: Performed By: #### A CBC, BHCG2 ####Testing performed at [address] [address] Hemoglobin mass conc (Bld) 15.1 g/dL Normal 12.0-16.0 [facility] Comment on above: Performed By: #### A CBC, BHCG2 ####Testing performed at [address] [address] MCH 32.0 pg Normal 26.0-35.0 [facility] Comment on above: Performed By: #### A CBC, BHCG2 ####Testing performed at [address] [address] MCHC mass conc (RBC) 35.0 g/dL Normal 27.0-37.0 [facility] Comment on above: Performed By: #### A CBC, BHCG2 ####Testing performed at [address] [address] MCV 91.5 fL Normal 80.0-100.0 [facility] Comment on above: Performed By: #### A CBC, BHCG2 ####Testing performed at [address] [place] [address] Platelet mean volume (PMV) 9.2 fL Normal 7.4-11.0 [facility] Comment on above: Performed By: #### A CBCALEXANDRACG2 ####Testing performed at [address] [address] [address] Platelets 235 /cmm Normal 130.0-400. 0 [facility] Comment on above: Performed By: #### A CBCALEXANDRACG2 ####Testing performed at [address] [address] WBC (Leukocytes) 8.8 /cmm Normal 3.6-11.0 [facility] Comment on above: Performed By: #### A CBCDAVIDG2 ####Testing performed at [address] [address] ED NOTEon 07-07-2017 [facility] NOTES Normal [facility] ED PROVIDERon 07-07-2017 [facility] NOTES Normal [facility] URINE MACROSCOPICon 07-08-19 18 Bilirubin Ql (U) Negative Normal NEGATIVE [facility] Comment on above: Performed By: #### U MAC, UMIC ####Testing performed at [address] [address] URINE HEMOGLOBIN LARGE Abnormal NEGATIVE [facility] Comment on above: Performed By: #### U MAC, UMIC ####Testing performed at [address] [address] URINE KETONE Negative Normal NEGATIVE [facility] Comment on above: Performed By: #### U MAC, UMIC ####Testing performed at [address] [address] URINE LEUKOTEST Negative Normal NEGATIVE [facility] Comment on above: Performed By: #### U MAC, UMIC ####Testing performed at [address] [address] URINE NITRATES Negative Normal NEGATIVE [facility] Comment on above: Performed By: #### U MAC, UMIC ####Testing performed at [address] [address] URINE SPEC GRAVITY 1.025 Normal 1.010-1.0 2 5 [facility] Comment on above: Performed By: #### U MAC, UMIC ####Testing performed at [address] [place] [address] URINE TOTAL PROTEIN Negative Normal NEGATIVE [facility] Comment on above: Performed By: #### U MAC, UMIC ####Testing performed at [address] [place] [address] Urine, clarity CLEAR Normal CLEAR [facility] Comment on above: Performed By: #### U MAC, UMIC ####Testing performed at [address] [place] [address] Urine, color YELLOW Normal YELLOW [facility] Comment on above: Performed By: #### U MAC, UMIC ####Testing performed at [address] [place] [address] Urine, glucose presence Negative Normal NEGATIVE [facility] Comment on above: Performed By: #### U MAC, UMIC ####Testing performed at [address] [place] [address] Urine, pH 7.0 [pH] Normal 5.0-7.0 [facility] Comment on above: Performed By: #### U MAC, UMIC ####Testing performed at [address] [place] [address] Urine, urobilinogen 1.0 mg/dl Normal 0.2-1.0 [facility] Comment on above: Performed By: #### U MAC, UMIC ####Testing performed at [address] [address] URINE MICROSCOPICon 03-30-20 18 CRYSTAL OCCASIONAL Abnormal NONE [facility] Comment on above: Result Comment: CHRIS PHOUS PHOSPHATES Performed By: #### U MAC, UMIC ####Testing performed at [address] [address] URINE COMMENT REFLEX CULTURE PER ESTABLISHED CRITERIA. Normal [facility] Comment on above: Performed By: #### U MAC, UMIC ####Testing performed at [address] [address] URINE WBC'S 1 TO 5 Normal NEGATIVE [facility] Comment on above: Performed By: #### U MAC, UMIC ####Testing performed at [address] [address] Urine, bacteria in sediment 1+ Abnormal NEGATIVE [facility] Comment on above: Performed By: #### U MAC, UMIC ####Testing performed at [address] [place] [address] Urine, casts in sediment NONE Normal NONE [facility] Comment on above: Performed By: #### U MAC, UMIC ####Testing performed at [address] [place] [address] Urine, epithelial cells in sediment 1 TO 5 Normal [facility] Comment on above: Performed By: #### U MAC, UMIC ####Testing performed at [address] [place] [address] Urine, erythrocytes 1 TO 5 Normal NEGATIVE [facility] Comment on above: Performed By: #### U MAC, UMIC ####Testing performed at [address] [place] [address] Urine, mucus presence in sediment Negative Normal NEGATIVE [facility] Comment on above: Performed By: #### U MAC, UMIC ####Testing performed at [address] [place] [address] BhCG Quanton 07-05-2017 HCG.beta subunit Qn 238.0 mIU/m Normal [facility] Comment on above: Result Comment: FEMA LE (NON-) & MALE <3 BORDERLINE 3 - 5 SUGGEST REPEAT TESTING FEMALE () 1 D - 1 WK 5 - 50 1 - 2 WK 50 - 500 2 - 3 WK 100 - 5000 3 - 4 WK 500 - 09998 4 - 5 WK 1000 - 80855 5 - 6 WK [address] - 927533 6 - 8 W[place] [address] - 903943 2 - 3 [place] [address] - 305016 Performed By: #### 2 206803 ####JIMMIE LrbBugs8766 [place] [address] Auto Diffon 07-04-2017 Basophils Auto #/vol (Bld) 0.1 E3/mcL Normal 0.0-0.[address] [facility] Comment on above: Order Comment: Order Added by Discern Expert. Performed By: #### 2 [id number] ####JIMMIE SvgOszn7777 [place] [address] Basophils/100 WBC Auto (Bld) 0.6 % Normal 0.0-2.[address] [facility] Comment on above: Order Comment: Order Added by Discern Expert. Performed By: #### 2 [id number] ####JIMMIE DanSchYhse5755 [place] [address] Eos Absolute 0.3 E3/mcL Normal 0.0-0.[address] [facility] Comment on above: Order Comment: Order Added by Discern Expert. Performed By: #### 2 880604 ####JIMMIE DanYthUxme9585 [place] [address] Eosinophils/100 leukocytes 2.5 % Normal 0.0-11.[address] [facility] Comment on above: Order Comment: Order Added by Discern Expert. Performed By: #### 2 581308 ####JIMMIE DanDpeYwbk0239 [place] [address] Lymphocytes 2.3 E3/mcL Normal 1.2-3.[address] [facility] Comment on above: Order Comment: Order Added by Discern Expert. Performed By: #### 2 244191 ####JIMMIE DanBnxDzwr3431 [place] [address] Lymphocytes/100 leukocytes 22.2 % Normal 20.0-55.[address] [facility] Comment on above: Order Comment: Order Added by Discern Expert. Performed By: #### 2 386564 ####JIMMIE DanYmsFiad7178 [place] [address] [place] Absolute 0.8 E3/mcL High 0.0-0.[address] [facility] Comment on above: Order Comment: Order Added by Discern Expert. Performed By: #### 2 762065 ####JIMMIE DanHioAxow8549 [place] [address] Monocytes/100 leukocytes 7.6 % Normal 0.0-10.[address] [facility] Comment on above: Order Comment: Order Added by Discern Expert. Performed By: #### 2 147246 ####JIMMIE DanHvlWxwy3026 [place] [address] Neutro Absolute 6.9 E3/mcL High 1.4-6.[address] [facility] Comment on above: Order Comment: Order Added by Discern Expert. Performed By: #### 2 672525 ####JIMMIE DanRuzIxks6590 [place] [address] Neutro Auto 67.1 % Normal 37.0-75.[address] [facility] Comment on above: Order Comment: Order Added by Discern Expert. Performed By: #### 2 397177 ####JIMMIE Ozunao1025 [place] [address] BMPon 07-04-2017 BUN/Creatinine Ratio 21.7 ratio Normal 5.4-30.0 [facility] Comment on above: Performed By: #### 2 273228 ####JIMMIE UuaIueq2380 [place] [address] Creatinine 0.6 mg/dL Normal 0.6-1.[address] [facility] Comment on above: Performed By: #### 2 647386 ####JIMMIE KmmTtrm3151 [place] [address] Urea nitrogen 13 mg/dL Normal 7-[address] [facility] Comment on above: Performed By: #### 2 489558 ####JIMMIE BqsGmqx6829 [place] [address] Calcium 8.4 mg/dL Normal 8.4-10.[address] [facility] Comment on above: Performed By: #### 2 327475 ####JIMMIE PkpUnuc7781 [place] [address] Chloride 100 mmol/L Normal 98-[address] [facility] Comment on above: Performed By: #### 2 460698 ####JIMMIE AiyIjae0641 [place] [address] CO2 27.7 mmol/L Normal 24.0-30.[address] [facility] Comment on above: Performed By: #### 2 924410 ####JIMMIEJonathan DanZolIbif1787 [place] [address] Glucose mass conc 98 mg/dL Normal 70-99 [facility] Comment on above: Performed By: #### 2 637535 ####JIMMIEJonathan DanIctGssk2009 [place] [address] Potassium molar conc 3.4 mmol/L Low 3.5-5.1 [facility] Comment on above: Performed By: #### 2 973124 ####JIMMIEJonathan GreshamBixKufk8104 [place] [address] Sodium 133 mmol/L Low 136-[address] [facility] Comment on above: Performed By: #### 2 913392 ####JIMMIE WatGryq2398 [place] [address] BhCG Quanton 07-04-2017 HCG.beta subunit Qn 190.8 mIU/m Normal [facility] Comment on above: Result Comment: FEMA LE (NON-) & MALE <3 BORDERLINE 3 - 5 SUGGEST REPEAT TESTING FEMALE () 1 D - 1 WK 5 - 50 1 - 2 WK 50 - 500 2 - 3 WK 100 - 5000 3 - 4 WK 500 - 41149 4 - 5 WK 1000 - 85840 5 - 6 WK [address] - 150529 6 - 8 WK [address] - 076553 2 - 3 [place] [address] - 828737 Performed By: #### 2 908812 ####JIMMIEJonathan DanErmRwhr8597 [place] [address] CBC w/ Auto Diffon 8 Erythrocyte distribution width Auto Ratio (RBC) 11.6 % Normal 11.5-14.[address] [facility] Comment on above: Performed By: #### 2 257668 ####JIMMIEJonathan DanCtaHvsd1295 [place] [address] Erythrocytes (RBC) 4.43 E6/mcL Normal 3.90-5.40 [facility] Comment on above: Performed By: #### 2 068263 ####JIMMIEJonathan DanOhcHttl2099 [place] [address] Hematocrit (HCT) 40.1 % Normal 36.0-48.0 [facility] Comment on above: Performed By: #### 2 201097 ####JIMMIE DanEpgOvci7481 [place] [address] Hemoglobin mass conc (Bld) 14.1 g/dL Normal 12.0-16.[address] [facility] Comment on above: Performed By: #### 2 619962 ####JIMMIE DanHyfLpux3618 [place] [address] MCH 31.7 pg High 27.0-31.[address] [facility] Comment on above: Performed By: #### 2 839854 ####JIMMIE Ozunao1025 [place] [address] MCHC mass conc (RBC) 35.1 g/dL Normal 33.0-37.0 [facility] Comment on above: Performed By: #### 2 388236 ####JIMMIE Ozunao1025 [place] [address] MCV 90.4 fL Normal 78.0-100.[address] [facility] Comment on above: Performed By: #### 2 298664 ####JIMMIE Ozunao1025 [place] [address] Platelet mean volume (PMV) 8.4 fL Normal 7.4-11.[address] [facility] Comment on above: Performed By: #### 2 198327 ####JIMMIE Ozunao1025 [place] [address] Platelets 232 E3/mcL Normal 130-[address] [facility] Comment on above: Performed By: #### 2 138162 ####JIMMIE Ozunao1025 [place] [address] WBC (Leukocytes) 10.3 E3/mcL Normal 3.6-11.0 [facility] Comment on above: Performed By: #### 2 702904 ####JIMMIE Ozunao1025 [place] [address] Hep Func Panelon 07-04-2017 Alanine aminotransferase (ALT) 15 Int._Unit/L Normal 10-[address] [facility] Comment on above: Performed By: #### 2 645124 ####JIMMIE Gresham1025 [place] [address] Albumin 3.8 g/dL Normal 3.2-5.[address] [facility] Comment on above: Performed By: #### 2 089496 ####JIMMIE DanKzkMbyq3073 [place] [address] Albumin/Globulin Ratio 1.4 {ratio} Normal 1.1-1.9 [facility] Comment on above: Performed By: #### 2 665354 ####JIMMIE DanSolSllr5337 [place] [address] Alk Phos 36 Int._Unit/L Low 42-[address] [facility] Comment on above: Performed By: #### 2 408708 ####JIMMIE TeaLjac2064 [place] [address] Aspartate aminotransferase (AST) 18 Int._Unit/L Normal 10-[address] [facility] Comment on above: Performed By: #### 2 296950 ####JIMMIE Gresham1025 [place] [address] Bili Direct <.10 Normal .00-.[address] [facility] Comment on above: Performed By: #### 2 339043 ####JIMMIE XucPxrt7086 [place] [address] Bili Indirect >0.[address] [facility] Comment on above: Result Comment: No e stablished ranges available for the Indirect Biliruben. Performed By: #### 2 150194 ####JIMMIE EtiMovm7738 [place] [address] Bili Total 0.8 mg/dL Normal 0.2-1.[address] [facility] Comment on above: Performed By: #### 2 821707 ####JIMMIE YtnLice5643 [place] [address] Globulin 2.8 g/dL Normal 2.0-4.[address] [facility] Comment on above: Performed By: #### 2 804958 ####JIMMIE VfqFmle5942 [place] [address] Protein 6.6 g/dL Normal 6.4-8.[address] [facility] Comment on above: Performed By: #### 2 708686 ####JIMMIE DejSdpk4022 [place] [address] Lipase Levelon 07-04-2017 Lipase Lvl 19 U/L Normal 8-[address] [facility] Comment on above: Performed By: #### 2 031282 ####JIMMIE RfxYjie7448 [place] [address] U BhCG Qlton 07-04-2017 HCG.beta subunit Qn Positive Normal Neg [facility] Comment on above: Performed By: #### 2 146035 ####JIMMIE Urinalysis Manual Yiyktqisyl7165 [place] [address] UA Completeon 07-04-2017 UA Blood 3+ Normal Negative [facility] Comment on above: Performed By: #### 8 [id number] ####JIMMIE Urinalysis Automated Gvhpzlaxki7713 [place] [address] UA Bacteria Trace Abnormal None [facility] Comment on above: Performed By: #### 8 [id number] ####JIMMIE Urinalysis Automated Pylfbfdgwy2479 [place] [address] UA Clarity SltCloudy Abnormal Clear [facility] Comment on above: Performed By: #### 8 [id number] ####JIMMIE Urinalysis Automated Ublklsabbp1582 [place] [id number] UA Leuk Est Trace Normal Negative [facility] Comment on above: Performed By: #### 8 [id number] ####JIMMIE Urinalysis Automated [address] [place] [address] UA Mucous Occasional Abnormal Trace [facility] Comment on above: Performed By: #### 8 1937286 ####JIMMIE Urinalysis Automated Lrysnsuafg5993 [place] [address]7705 UA Nitrite Negative Normal Negative [facility] Comment on above: Performed By: #### 8 [id number] ####JIMMIE Urinalysis Automated [address]xkh[address] [place] [address] UA pH 5.0 Normal 4.6-8.[address] [facility] Comment on above: Performed By: #### 8 [id number] ####JIMMIE Urinalysis Automated C[address]prjvmma[address] [place] [address] UA Protein Negative Normal Negative [facility] Comment on above: Performed By: #### 8 [id number] ####JIMMIE Urinalysis Automated Kxvwmgqhfk3639 [place] [address] UA Spec Grav 1.027 Normal 1.003-1.[address] [facility] Comment on above: Performed By: #### 8 [id number] ####JIMMIE Urinalysis Automated [address] [place] [address] UA Squam Epithelial 0-5 Normal 0-5 [facility] Comment on above: Performed By: #### 8 [id number] ####JIMMIE Urinalysis Automated Atwhiwxqaw7618 [place] [address]77[address] UA Urobilinogen Negative Normal [facility] Comment on above: Performed By: #### 8 [id number] ####JIMMIE Urinalysis Automated Fqvjqwtlqi7924 [place] [address] UA WBC 10-20 Abnormal 0-[address] [facility] Comment on above: Performed By: #### 8 [id number] ####JIMMIE Urinalysis Automated Tleicirbfn8031 [place] [address] Urine, color Yellow Normal Yellow [facility] Comment on above: Performed By: #### 8 [id number] ####JIMMIE Urinalysis Automated Aboasijtnr6569 [place] [address] Urine, erythrocytes 5-10 Abnormal 0-3 [facility] Comment on above: Performed By: #### 8 [id number] ####JIMMIE Urinalysis Automated Wzueajteur3270 [place] [address] Urine, glucose Negative Normal Negative [facility] Comment on above: Performed By: #### 8 5323889 ####JIMMIE Urinalysis Automated Vdvjlffslq5085 [place] [address] Urine, ketones presence Negative Normal Negative [facility] Comment on above: Performed By: #### 8 6846521 ####JIMMIE Urinalysis Automated Miquceagxr2912 [place] [address] Urine, urobilinogen Negative Normal Negative [facility] Comment on above: Performed By: #### 8 [id number] ####JIMMIE Urinalysis Automated Bitfjrdums8424 [place] [address] eGFRon 07-04-2017 eGFR (non-black) mL/min/{1.73_m2} Normal [facility] Comment on above: Order Comment: Order added by Discern Expert. Performed By: #### 1 [id number] ####JIMMIE TcqRihn8761 [place] [address] Vital Signs Date Time Vital Sign Value Performing Clinician Cong reynolds 04-20-2023 14:07-0500 Diastolic blood pressure 75 mm[Hg] [facility] 04-20-2023 14:07-0500 Heart rate 93 /min [facility] 10 [facility] 04-20-2023 14:07-0500 Respiratory rate 18 /min [facility] 10 [facility] 04-20-2023 14:07-0500 SaO2% (BldA) [Mass fraction] 99 % [facility] [address] [place] [address] 04-20-2023 14:07-0500 Systolic blood pressure 127 mm[Hg] [facility] [address] [place] [address] 04-20-2023 14:06-0500 Body height 160 cm [facility] [address] [place] [address] 04-20-2023 14:06-0500 Body mass index (BMI) [Ratio] 37.22 kg/m2 [facility] [address] [place] [address] 04-20-2023 14:06-0500 Body temperature 97.7 [degF] [facility] [address] [place] [address] 04-20-2023 14:06-0500 Body weight 95.3 kg [facility] [address] [place] [address] 03-10-2023 23:05-0500 Diastolic blood pressure 80 mm[Hg] Supriya Aichholz Work Phone: [facility] 03-10-2023 23:05-0500 Heart rate 100 /min Supriya Aichholz Work Phone: [facility] 03-10-2023 23:05-0500 Respiratory rate 20 /min Supriya Aichholz Work Phone: [facility] 03-10-2023 23:05-0500 SaO2% (BldA) [Mass fraction] 98 % Supriya Aichholz Work Phone: [facility] 03-10-2023 23:05-0500 Systolic blood pressure 137 mm[Hg] Supriya Aichholz Work Phone: [facility] 03-10-2023 17:38-0500 Body temperature 97.9 [degF] Supriya Aichholz Work Phone: [facility] 03-10-2023 17:32-0500 Body height 160.02 cm Supriya Aichholz Work Phone: [facility] 03-10-2023 17:32-0500 Body weight 95 kg Supriya Aichholz Work Phone: [facility] Encounters Encounter Date Encounter Type Care [...] Not Available Start: 05-22-2023 End: 05-22-2023 ambulatory [facility] Start: 05-22-2023 End: 05-22-2023 Postop follow up visit related to original px Gerson Malik MD Work Phone: [facility] Comment on above: [...] Evaluation and management of inpatient SU[facility] Start: 05-04-2023 End: 05-04-2023 Evaluation and management of inpatient PA [facility] Start: 04-20-2023 End: 04-20-2023 ambulatory [facility] Start: 04-20-2023 End: 04-20-2023 Patient encounter procedure [facility] Provider 10 Mario Blum [facility] Start: 03-31-2023 End: 03-31-2023 ambulatory XIN MORTEZA Not Available Start: 03-30-2023 End: 03-30-2023 ambulatory [facility] Start: 03-14-2023 End: 03-14-2023 ambulatory XIN MORTEZA Not Available Start: 03-10-2023 End: 03-11-2023 Emergency department patient visit Jacky Alarcon Facility:[facility] Start: 03-10-2023 End: 03-10-2023 Emergency department patient visit Supriya Emmanuelreillyaric Work Phone: [facility] Work Phone: Start: 03-07-2023 [...] 07-07-2017 End: 07-07-2017 Emergency department patient visit [facility] Start: 07-05-2017 End: 07-06-2017 Ambulatory Dickson Arleth Comfrey Facility:[facility] Start: 07-04-2017 End: 07-04-2017 Emergency department patient visit Dickson W Comfrey Facility:[facility] Procedures Date Procedure Procedure Detail Performing Clinician [...] Td Vaccines (5 - Td or Tdap) [facility] Start: 05-04-2024 Adult BMI Screening Adult BMI Screen ing [facility] Start: 05-04-2024 Tobacco Screening Tobacco Screening [facility] Start: 04-20-2024 Adult BMI Screening Adult BMI Screen ing [facility] Start: 04-20-2024 Tobacco Screening Tobacco Screening [facility] Start: 06-05-2023 End: 06-05-2023 Patient encounter procedure 06/05/2023 9:50 AM EST Routine [facility] [address] [place] [id number] Xin Pro DO [address] [place] [address] [facility] Start: 05-04-2023 End: 05-04-2023 Admission to same day surgery center 05/04/2023 7:30 AM EST - 05/04/2023 9:30 AM EST Surgery [address] [place] [address] Gerson Malik MD [address] [place] [address] DAVINCI CHOLECYSTECTOMY [facility] Surgery Comment on above: DAVINCI CHOLECYSTECT ANDREA Start: 05-04-2023 End: 05-04-2023 DAVINCI CHOLECYSTECTOMY DAVINCI CHOLECYSTECTOMY CHOLELITHIASIS 05/04/2023 7:30 AM EST [facility] Start: 05-04-2023 End: 05-04-2023 DAVINCI CHOLECYSTECTOMY CHOLANGIOGRAM DAVINCI CHOLECYSTECTOMY CHOLANGIOGRAM CHOLELITHIASIS 05/04/2023 7:30 AM EST [facility] Start: 05-04-2023 Subsequent hospital visit by physician 05/04/2023 7:30 AM EST Hospital Encounter [address] [place] [id number] Gerson Malik MD [address] [place] [address] [facility] Surgery Start: 03-10-2023 US Gallbladder [facility] Start: 03-10-2023 US scan of gallbladder US gall bladd er [facility] Start: 03-10-2023 Bacteria identified in Urine by Culture [facility] Start: 12-09-2022 Influenza vaccination Influenza Vacc ine [facility] Start: 2019 Screening for malign ant neoplasm of cervix Pap Smear [facility] Start: 2016 Adult BMI Follow Up Plan Adult BMI F ollow Up Plan [facility] Start: 2010 Depression Screening Depression Scre ening [facility] Patient Education - e Second Month Nausea and Vomiting, Adult ED Gallstones ED [facility] Work Phone: Patient referral [facility] Work Phone: Payers Date Payer Category Payer Unknown [id number] 2022 Private Health Insurance [id number] 2022 Unknown [id number] 2017 Unknown 1998 Unknown [id number] 2.16.84 0.1.046069.3.579.2.593 1998 Unknown [id number] 2.16.84 0.1.367815.3.579.2.593 1998 Unknown [id number] 2.16.84 0.1.162228.3.579.2.593 1998 Unknown [id number] 2.16.84 0.1.689783.3.579.2.593 1998 Unknown [id number] 2.16.84 0.1.246370.3.579.2.593 1998 Unknown [id number] 2.16.84 0.1.279147.3.579.2.593 1998 Unknown [id number] 2.16.84 0.1.544682.3.579.2.593 1998 Unknown [id number] 2.16.84 0.1.171749.3.579.2.593 1998 Unknown [id number] 2.16.84 0.1.865092.3.579.2.593 1998 Unknown [id number] 2.16.84 0.1.802133.3.579.2.593 1998 Unknown [id number] 2.16.84 0.1.498016.3.579.2.593 1998 Unknown [id number] 2.16.84 0.1.866804.3.579.2.593 1998 Unknown [id number] 2.16.84 0.1.734908.3.579.2.593 1998 Unknown [id number] 2.16.8 40.1.609674.3.579.2.1286 1998 Unknown [id number] 2.16.8 40.1.345661.3.579.2.1286 1998 Unknown [id number] 2.16.8 40.1.317323.3.579.2.1286 1998 Unknown [id number] 2.16.8 40.1.784563.3.579.2.1286 1998 Unknown [id number] 2.16.84 0.1.626778.3.579.2.1286 1998 Unknown [id number] 2.16.84 0.1.455540.3.579.2.1286 1998 Unknown [id number] 2.16.84 0.1.749198.3.579.2.1259 1998 Unknown [id number] 2.16.84 0.1.637612.3.579.2.9 1998 Unknown [id number] 2.16.84 0.1.128839.3.579.2.1259 1998 Unknown [id number] 2.16.84 0.1.187465.3.579.2.1259 1998 Unknown [id number] 2.16.84 0.1.323964.3.579.2.1259 1998 Unknown [id number] 2.16.84 0.1.971774.3.579.2.1259 1998 Unknown [id number] 2.16.84 0.1.315368.3.579.2.1259 1998 Unknown [id number] 2.16.84 0.1.080504.3.579.2.1259 1998 Unknown [id number] 2.16.840 .1.931268.3.579.2.1259 1998 Unknown [id number] 2.16.840 .1.693889.3.579.2.1259 1998 Unknown [id number] 2.16.840 .1.727513.3.579.2.1259 1959 Private Health Insurance [id number] 1959 Self-pay 1959 Unknown [id number] 1959 Unknown [id number] Unknown [id number] 2.16.8 40.1.386805.3.579.2.531 Social History Date Type Detail Facility Start: 03-10-2023 End: 03-30-2023 Tobacco smoking status NHIS Never smoked tobacco (finding) [facility] Start: 2000 Sex Assigned At Female F [facility] Start: 03-30-2023 End: 05-16-2023 Tobacco use and exposure Smokeless tobacco non-user [facility] Start: 04-20-2023 End: 05-04-2023 Alcohol intake Ex-drinker (finding) [facility] Start: 05-21-2020 End: 04-20-2023 History of Social function [facility] Start: 05-21-2020 End: 04-20-2023 Tobacco use panel [facility] Housing Instability Unknown [facility] Start: 1998 Sex Assigned At Not on file P [facility] Start: 05-16-2023 Alcohol intake Lifetime non-d yrn (finding) [facility] Start: 02-10-2023 [facility] History of Present illness Narrative 05-22-2023 [...] up: As needed documented in this encounter [facility] [employer] [facility] Instructions 04-20-2023 Patient Instructions Note Date & Type Note Facility 04-20-2023 Instructions Terri Estrada RN - 04/20/2023 1:45 PM EST Your surgery/procedure is scheduled at [facility] on 05/04/23 at 0730 Arrival Time 0530 [facility] Address: [address] [place] [address] Park in P1 Parking lot located on [facility]. Report to the Entrance B. Check in at the information desk the surgery. The waiting room located on the second floor. If you have any questions prior to surgery, please call Pre-Admission Clinic at [phone] between 7:30 am and 4:30 pm Monday through Monday. If you have questions the morning of surgery, please call the Pre-op Department at [phone]. PLEASE FOLLOW THESE INSTRUCTIONS OR YOUR SURGERY [...] would like to schedule therapy at a [facility] facility, please call [phone] ([phone]). Do not use lotions, creams, powders, perfume, make up, cologne or after-shaves day of surgery. Remove ALL jewelry including wedding rings, body piercings,hair extensions that contain metal, nail japanese, make-up, and contact lens. You may brush [...] RIGHTS AND RESPONSIBILITIES As a patient at [facility], you have the right to: Receive medical care and be informed of who is taking care of you Be treated with dignity and respect Have a family member/customer sales representative of choice and your physician notified of your admission Receive information and actively participate in decisions about your care and treatment Refuse care, treatment and services Decide who may provide your support and speak for you Access zoroastrianism and spiritual services Participate in ethical issues [...] hospital charges and payment methods Patient/patient customer sales representative responsibilities are to: Provide information [...] in clean clothes. documented in this encounter [facility] Note 04-20-2023 Perioperative Nursing Note - Lexi Reddy RN - 04/20/2023 1:45 PM EST Note Date & Type Note Facility 04-20-2023 Miscellaneous Notes Formattin g of this note might be different from the original. Appt reminder call done-message left documented in this encounter [facility] Nurse Note 04-20-2023 Perioperative Nursing Note - Lexi Reddy RN - 04/20/2023 1:45 PM EST Note Date & Type Note Facility 04-20-2023 Nurse Note Appt reminder call done-message left [facility] Evaluation note Note Date & Type Note Facility Evaluation note No assessment information availa [facility] Work Phone: Evaluation note Note Date & Type Note Facility Evaluation note Diagnosis Status post laparoscopic cholecystectomy- Primary Other postprocedural status documented in this encounter [facility] Hospital Discharge instructions Note Date & Type Note Facility Hospital Discharge instructions Additional Instructions Return if symptoms are worse Continue your Zofran and Reglan at home and will add Phenergan for vomiting Follow-up with your surgeon [facility] Work Phone: Instructions Attachments Note Date & Type Note Facility Instructions The following attachments cannot be sent through Care Everywhere.Cholecystectomy Discharge Instructions (Czech)documented in this encounter [facility] Summary Purpose Family History No Family [...] section and content) DATE CREATED AUTHOR 09/28/2017 [facility] jenn DATE CREATED AUTHOR AUTHOR'S ORGANIZ ATION 09/29/2017 [facility] DATE CREATED AUTHOR AUTHOR'S ORGANIZ ATION 04/16/2020 [facility] DATE CREATED AUTHOR AUTHOR'S ORGANIZ ATION 08/24/2022 [facility] DATE CREATED AUTHOR AUTHOR'S ORGANIZ ATION 03/21/2023 [facility] DATE CREATED AUTHOR AUTHOR'S ORGANIZ ATION 05/24/2023 [facility] DATE CREATED AUTHOR AUTHOR'S ORGANIZ ATION 09/29/2023 [facility] EP[employer] Care Teams (unrecognized sec tion and content) Team Status: Active Member Role Status Dates Supriya Cerrato Primary Care Provider Active Team Status: Inactive Member Role Status Dates Supriya Cerrato Primary Care Provider Active Jacky Alarcon MD Emergency Provider Active [employer] Relationship Specialty Start Date End Date Supriya Cerrato, MAINTENANCE PLANNING CLERK-[facility] [address] [place] [phone] PCP - General Nurse Practitioner 03/30/23 [employer] Relationship Specialty Start Date End Date Supriya Cerrato, MAINTENANCE PLANNING CLERK-[facility] [address] [place] [id number] PCP - General Nurse Practitioner 03/30/23 Goals [...] BE BASED ON THE PRIMARY CLINICAL RECORDS. [facility] [employer] provides no warranty or guarantee of the accuracy or completeness of information in this document.
== END 2023-10-11 21:08 | disposition home or self-care (01) ==
LOC: LAB 21:07
PROVIDERS: Visit Provider Obstetrics & Gynecology
DX: Z34.93 Encounter for supervision of normal pregnancy, unspecified, third trimester (principal); Z3A.36 36 weeks gestation of pregnancy
CPT/HCPCS: 87081

== ENCOUNTER 2023-10-14 02:18 | Inpatient (IN) | payer OTHER, SELFPAY ==
[2023-10-14] VITALS (46 sets, daily range): BP systolic 92–162; BP diastolic 52–88; PULSE 93–130; TEMP 36.3–36.8
--- OUTSIDE RECORDS SUMMARY | 2023-10-14 02:22 | XMS_ITS | CCD ---
Author Organization [facility] Care Team Providers Care Horticultural Agent Name Role Phone [place]wood, Dikcson W Unavailable Unavailable Galdino, Dickson W Unavailable Unavailable No Doctor Assigned, Nodr Unavailable Unavail able Galdino, Dickson W Unavailable Unavailable Norwood, Dickson W Unavailable Unavailable No Doctor Assigned, Nodr Unavailable Unavail able SHEMAR ., STEFAN Admitting Unavailable SHEMAR ., STEFAN Consulting Unavailable AICHHOLZ, SECURITIES BROKER SUPRIYA Primary Care Unavailable SHEMAR ., STEFAN Attending Unavailable MORTEZA ., DR LAUREN Admitting Unavailable SHEMAR ., STEFAN Consulting Unavailable AICHHOLZ, SECURITIES BROKER SUPRIYA Primary Care Unavailable MORTEZA ., DR LAUREN Attending Unavailable SHEMAR ., STEFAN Admitting Unavailable SHEMAR ., STEFAN Consulting Unavailable SHEMAR ., STEFAN Attending Unavailable AICHHOLZ, SECURITIES BROKER SUPRIYA Primary Care Unavailable AICHHOLZ, SECURITIES BROKER SUPRIYA Primary Care Unavailable MORTEZA ., DR LAUREN Attending Unavailable MORTEZA ., DR LAUREN Admitting Unavailable MORTEZA ., DR LAUREN Admitting Unavailable MORTEZA ., DR LAUREN Attending Unavailable AICHHOLZ, SECURITIES BROKER SUPRIYA Primary Care Unavailable MORTEZA ., DR LAUREN Consulting Unavailable KARASIK ., DR MRUPHY Attending Unavailabl e AICHHOLZ, SECURITIES BROKER SUPRIYA Primary Care Unavailable KARASIK ., DR MURPHY Admitting Unavailabl e Tristan Hart Consulting Unavailable KARASIK ., DR MURPHY Consulting Unavailabl e MORTEZA ., DR LAUREN Attending Unavailable MORTEZA ., DR LAUREN Admitting Unavailable REQUEST, DR FERNANDEZ LISTED Primary Care Unavaila ble MORTEZA ., DR LARUEN Consulting Unavailable MORTEZA ., DR LAUREN Procedure Practitioner Unavail able MORTEZA ., DR LAUREN Admitting Unavailable MORTEZA ., DR LAUREN Consulting Unavailable AICHHOLZ, SECURITIES BROKER SUPRIYA Primary Care Unavailable MORTEZA ., DR LAUREN Attending Unavailable Zieber, Tristan Consulting Unavailable MORTEZA ., DR LAUREN Consulting Unavailable REQUEST, DR NONE LISTED Primary Care Unavaila ble MORTEZA ., DR LAUREN Attending Unavailable MORTEZA ., DR LAUREN Admitting Unavailable Zieber, Tristan Consulting Unavailable MORTEZA ., DR LAUREN Admitting Unavailable AICHHOLZ, SECURITIES BROKER SUPRIYA Primary Care Unavailable MORTEZA ., DR LAUREN Attending Unavailable T[place], DR DONALD Bryan Consulting Unavailable MORTEZA ., DR LAUREN Consulting Unavailable MORTEZA ., DR LAUREN Admitting Unavailable AICHHOLZ, SECURITIES BROKER SUPRIYA Primary Care Unavailable MORTEZA ., DR LAUREN Attending Unavailable MORTEZA ., DR LAUREN Consulting Unavailable SHEMAR ., STEFAN Attending Unavailable SHEMAR ., STEFAN Admitting Unavailable Zieber, Tristan Consulting Unavailable REQUEST, DR NONE LISTED Primary Care Unavaila ble SHEMAR ., STEFAN Consulting Unavailable MORTEZA ., DR LAUREN Admitting Unavailable MORTEZA ., DR LAUREN Consulting Unavailable MORTEZA ., DR LAUREN Attending Unavailable AICHHOLZ, SECURITIES BROKER SUPRIYA Primary Care Unavailable Aichholz, Supriya J Primary Care Provider [phone] MD Jacky Alarcon Emergency Provider [phone] Jacky Alarcon Attending Unavailable Jacky Alarcon Admitting Unavailable Aicstef, Supriya J Primary Care Unavailable Aichholz RAT POISONER-SECURITIES BROKER, Supriya J Primary Care Provider Unavailable Primary [...] Propensity to adverse reactions to drug (disorder) [facility] Repository Medications Current Medications Medication [...] applicable or unspecified; Translations: [MAT CARE EXCSS FTL GRTH 3RD TRI UNS] Onset: 06-06-2022 Episodic [...] [Ratio] 12.8 % 11.0 - 15.0 % [facility] Hematocrit (Bld) [Volume fraction] 39.3 % 36.0 - 48.0 % [facility] Hemoglobin (Bld) [Mass/Vol] 14.1 g/dL 12.0 - 16.0 g/dL [facility] IMMATURE GRANULOCYTES ABS AUTO 0.07 High [facility] Immature granulocytes/100 WBC (Bld) 0.7 % High 0.0 - 0.5 % [facility] Interpretation and review of laboratory results Abnormal [facility] LYMPHOCYTES ABSOLUTE AUTO 2.0 [facility] Lymphocytes/100 WBC (Bld) 19.1 % Low 20.5 - 60.0 % [facility] MCH (RBC) [Entitic mass] 32.0 pg 26.7 - 34.0 pg [facility] MCHC (RBC) [Mass/Vol] 35.9 g/dL High 29.9 - 35.2 g/dL [facility] MCV (RBC) [Entitic vol] 89.3 fL 81.0 - 99.0 fL [facility] MONOCYTES ABSOLUTE AUTO 0.5 [facility] Monocytes/100 WBC (Bld) 4.7 % 1.7 - 12.0 % [facility] NEUTROPHILS ABSOLUTE AUTO 7.6 High [facility] Neutrophils/100 WBC (Bld) 73.2 % 43.0 - 75.0 % [facility] Platelet mean volume (Bld) [Entitic vol] 11.4 fL 9.5 - 13.5 fL [facility] TBH EO # 0.2 [facility] TBH PLT 218 [facility] TB RBC 4.40 [facility] WBC 10.4 [facility] Surgical Pathologyon 024 Surgical Pathology Normal [facility] Comment on above: Result Comment: [facility] [address] [place] [address] Surgical Pathology Consultation Patient Name:DARY ASHLEY:2000 (Age: 23)Gender:FTaken:4Reported:4Physician(s):GERSON Kelsey To: Rec. #:[id number]: #[id number] Final Pathologic Diagnosis Gallbladder, cholecystectomy: Chronic cholecystitis with organizing hemorrhage and fibroblast proliferation involving gallbladder wall, accompanied by extensive mucosal erosion with reactive changes, and focal ceroid granulomas. No evidence of malignancy or dysplasia. Cholelithiasis. Report Electronically Signed Out ao/05/12/2023olamide Moreno MD Interpretation performed at [facility], [address] [place] [address], License number: [id number]. Clinical History Cholelithiasis. Gross Description Received in [...] congested, hemorrhagic and velvety in the neck. Director Internal Control sections are submitted in cassettes A- B, as: A- cystic duct margin and telemarketing representative ragged defects,B- telemarketing representative neck body and fundus. After initial microscopic evaluation, additional sections are submitted in cassettes C-E. (5,ss,[id number], m6) MARYJANE/MD chairezw/05/04/2023SSI Specimen(s) Received Gallbladder Fee Codes(s): 1; 67136 gall bladderon 03-11-2023 gall bladder [facility] Main [place] [id number] Ultrasound Report Signed Patient: Dary Ashley MR#: [id number] : 2000 Acct:[id number] Age/Sex: 22 / F ADM Date: 03/10/23 Loc: ER Room: Type: [facility] ER Attending Dr: Ordering Provider: Jacky [...] Nataliia Scott M.D.03/11/2023 8:10 AM Dictation Location: [place] [address] Tech: Isi Caballero Transcribed By: RONI 03/11/23 0810 Dictated By: Nataliia Scott MD 03/11/23 0807 Signed By: 03/11/23 0810 Normal [facility] Alanine aminotransferase [En zymatic activity/volume] in Serum or PlasmaOrdered By: Jacky Alarcon on 03-10-2023 ALT [Catalytic activity/Vol] 36 U/L 7-52 [facility] Albumin [Mass/volume] in Ser um or Plasma by Bromocresol green (BCG) dye binding methoOrdered By: Jacky Alarcon on 03-10-2023 Albumin BCG dye [Mass/Vol] 4.5 g/dL 3.5-5.7 [facility] Alkaline phosphatase [Enzyma tic activity/volume] in Serum or PlasmaOrdered By: Jacky Alarcon on 03-10-2023 ALP [Catalytic activity/Vol] 71 U/L 34-104 [facility] Aspartate aminotransferase [ Enzymatic activity/volume] in Serum or PlasmaOrdered By: Jacky Alarcon on 03-10-2023 AST [Catalytic activity/Vol] 17 U/L 13-39 [facility] Automated erythrocytes count in urine sediment (number/area)Ordered By: Jacky Alarcon on 03-10-2023 RBC Auto (Urine sed) [#/Area] 50-100 [HPF] 0-4 [facility] Automated leukocytes count i n urine sediment (number/area)Ordered By: Jacky Alarcon on 03-10-2023 WBC Auto (Urine sed) [#/Area] 5-9 [HPF] 0-4 [facility] Basic Metabolic Panelon Anion gap [Moles/Vol] 16.5 mmol/L High 6.0-15.0 [facility] Comment on above: Performed By: #### L IPASE, HCGQNT, HEPATIC, BMP, CBC #### [facility] [address] Calcium [Mass/Vol] 9.3 mg/dL Normal 8.6-10.3 [facility] Comment on above: Performed By: #### L IPASE, HCGQNT, HEPATIC, BMP, CBC #### [facility] [address] Chloride [Moles/Vol] 101 mmol/L Normal 98-107 [facility] Comment on above: Performed By: #### L IPASE, HCGQNT, HEPATIC, BMP, CBC #### [facility] [address] [place] [address] [place] CO2 [Moles/Vol] 18.8 mmol/L Low 21.0-31.0 [facility] Comment on above: Performed By: #### L IPASE, HCGQNT, HEPATIC, BMP, CBC #### [facility] [address] [place] [address] [place] Creatinine [Mass/Vol] 0.64 mg/dL Normal 0.60-1.[address] [facility] Comment on above: Performed By: #### L IPASE, HCGQNT, HEPATIC, BMP, CBC #### [facility] [address] [place] [address] [place] Creatinine Clr Calc Pharmacy 148.58 [facility] Comment on above: Performed By: #### L IPASE, HCGQNT, HEPATIC, BMP, CBC #### [facility] [address] [place] [address] [place] GFR/1.73 sq M.predicted MDRD (S/P/Bld) [Vol rate/Area] mL/min/{1.73_m2} Normal [facility] Comment on above: Performed By: #### L IPASE, HCGQNT, HEPATIC, BMP, CBC #### [facility] [address] Glucose [Mass/Vol] 83 mg/dL Normal 70-100 [facility] Comment on above: Result Comment: [facility] Glucose Reference Range is dependent on time and content of last meal. Glucose of more than 200 mg/dL in a nonstressed, ambulatory subject supports the diagnosis of Diabetes Mellitus. ADA recommended reference range Performed By: #### L IPASE, HCGQNT, HEPATIC, BMP, CBC #### [address] Potassium [Moles/Vol] 3.3 mmol/L Low 3.5-5.[address] [facility] Comment on above: Performed By: #### L IPASE, HCGQNT, HEPATIC, BMP, CBC #### [address] Sodium [Moles/Vol] 133 mmol/L Low 136-145 [facility] Comment on above: Performed By: #### L IPASE, HCGQNT, HEPATIC, BMP, CBC #### [address] Urea nitrogen [Mass/Vol] 6 mg/dL Low 7-25 [facility] Comment on above: Performed By: #### L IPASE, HCGQNT, HEPATIC, BMP, CBC #### [place] [address] [place] Basophils Auto (Bld) [#/Vol] Ordered By: Jacky Alarcon on 03-10-2023 Basophils (Bld) [#/Vol] 0.1 10*3/uL 0.0-0.2 [facility] Basophils/100 WBC Auto (Bld) Ordered By: Jacky Alarcon on 03-10-2023 Basophils/100 WBC (Bld) 0.4 % . [facility] Bilirubin Test strip Ql (U)O rdered By: Jacky Alarcon on 03-10-2023 Bilirubin Ql (U) Negative Negative [facility] Bilirubin.direct [Mass/volum e] in Serum or PlasmaOrdered By: Jacky Alarcon on 03-10-2023 Bilirubin.direct [Mass/Vol] 0.40 mg/dL 0.03-0.18 [facility] Bilirubin.total [Mass/volume ] in Serum or PlasmaOrdered By: Jacky Alarcon on 03-10-2023 Bilirubin [Mass/Vol] 1.2 mg/dL 0.3-1.0 [facility] Calcium [Mass/volume] in Ser um or PlasmaOrdered By: Jacky Alarcon on 03-10-2023 Calcium [Mass/Vol] 9.3 mg/dL 8.6-10.3 [facility] Carbon dioxide, total [Moles /volume] in Serum or PlasmaOrdered By: Jacky Alarcon on 03-10-2023 CO2 [Moles/Vol] 18.8 mmol/L 21.0-31.0 [facility] Chloride [Moles/volume] in S rahul or PlasmaOrdered By: Jacky Alarcon on 03-10-2023 Chloride [Moles/Vol] 101 mmol/L 98-107 [facility] Choriogonadotropin.beta subu nit [Units/volume] in Serum or PlasmaOrdered By: Jacky Alarcon on 03-10-2023 [place] [address].00 m[IU]/mL [facility] Comment on above: Approximate Approxim ate hCG Gestational Age Range (mIU/ml) (weeks)0.2-1 5-50 1-2 50-500 2-3 100-5,000 3-4 500-10,000 4-5 1,000-50,000 5-6 10,000-100,000 6-8 15,000-200,000 8-12 10,000-100,000 Color Auto (U)Ordered By: Corinna Alarcon on 03-10-2023 Color (U) Dark yellow Yellow [facility] Complete Blood Count Auto Di ffon 03-10-2023 Basophils (Bld) [#/Vol] 0.1 10*3/uL Normal 0.0-0.2 [facility] Comment on above: Result Comment: PERF ORMED BY: [facility] [address] [place] [address] PATHOLOGIST SKATE MAKER ANDRÉS MACEDO M.D. Performed By: #### L IPASE, HCGQNT, HEPATIC, BMP, CBC #### [address] Basophils/100 WBC (Bld) 0.4 % Normal . [facility] Comment on above: Performed By: #### L IPASE, HCGQNT, HEPATIC, BMP, CBC #### [address] Eosinophils (Bld) [#/Vol] 0.1 10*3/uL Normal 0.0-0.45 [facility] Comment on above: Performed By: #### L IPASE, HCGQNT, HEPATIC, BMP, CBC #### [address] Eosinophils/100 WBC (Bld) 0.5 % Normal . [facility] Comment on above: Performed By: #### L IPASE, HCGQNT, HEPATIC, BMP, CBC #### [address] Erythrocyte distribution width (RBC) [Ratio] 13.3 % Normal 11.9-15.3 [facility] Comment on above: Performed By: #### L IPASE, HCGQNT, HEPATIC, BMP, CBC #### [address] Hematocrit (Bld) [Volume fraction] 47.2 % High 34.0-46.4 [facility] Comment on above: Performed By: #### L IPASE, HCGQNT, HEPATIC, BMP, CBC #### [address] Hemoglobin (Bld) [Mass/Vol] 16.5 g/dL High 11.8-15.4 [facility] Comment on above: Performed By: #### L IPASE, HCGQNT, HEPATIC, BMP, CBC #### [address] Lymphocytes (Bld) [#/Vol] 1.9 10*3/uL Normal 1.00-4.8 [facility] Comment on above: Performed By: #### L IPASE, HCGQNT, HEPATIC, BMP, CBC #### [address] Lymphocytes/100 WBC (Bld) 11.6 % Normal . [facility] Comment on above: Performed By: #### L IPASE, HCGQNT, HEPATIC, BMP, CBC #### [address] MCH (RBC) [Entitic mass] 30.8 pg Normal 24.7-34.3 [facility] Comment on above: Performed By: #### L IPASE, HCGQNT, HEPATIC, BMP, CBC #### [address] MCV (RBC) [Entitic vol] 87.8 fL Normal 80-100 [facility] Comment on above: Performed By: #### L IPASE, HCGQNT, HEPATIC, BMP, CBC #### [address] Mean Corpuscular HGB Conc 35.0 g/dL Normal 32.0-35.0 [facility] Comment on above: Performed By: #### L IPASE, HCGQNT, HEPATIC, BMP, CBC #### [address] Monocytes (Bld) [#/Vol] 1.4 10*3/uL High 0.0-0.8 [facility] Comment on above: Performed By: #### L IPASE, HCGQNT, HEPATIC, BMP, CBC #### [address] Monocytes/100 WBC (Bld) 16.05 % Normal 0.00-20.00 [facility] Comment on above: Performed By: #### L IPASE, HCGQNT, HEPATIC, BMP, CBC #### [address] Monocytes/100 WBC (Bld) 8.8 % Normal . [facility] Comment on above: Performed By: #### L IPASE, HCGQNT, HEPATIC, BMP, CBC #### [facility] [address] [place] [address] Neutrophils (Bld) [#/Vol] 12.6 10*3/uL High 1.8-7.7 [facility] Comment on above: Performed By: #### L IPASE, HCGQNT, HEPATIC, BMP, CBC #### [address] Neutrophils/100 WBC (Bld) 78.7 % Normal . [facility] Comment on above: Performed By: #### L IPASE, HCGQNT, HEPATIC, BMP, CBC #### [address] NRBC% 0.1 /100{WBC} Normal 0-0.5 [facility] Comment on above: Performed By: #### L IPASE, HCGQNT, HEPATIC, BMP, CBC #### [address] Platelet mean volume (Bld) [Entitic vol] 9.7 fL Normal 6.3-10.7 [facility] Comment on above: Performed By: #### L IPASE, HCGQNT, HEPATIC, BMP, CBC #### [address] Platelets (Bld) [#/Vol] 263 10*3/uL Normal 150-450 [facility] Comment on above: Performed By: #### L IPASE, HCGQNT, HEPATIC, BMP, CBC #### [place] [address] [place] RBC (Bld) [#/Vol] 5.37 10*6/uL High 3.60-5.00 [facility] Comment on above: Performed By: #### L IPASE, HCGQNT, HEPATIC, BMP, CBC #### [address] WBC (Bld) [#/Vol] 16.0 10*3/uL High 3.8-11.6 [facility] Comment on above: Performed By: #### L IPASE, HCGQNT, HEPATIC, BMP, CBC #### [facility] [address] [place] [address] Creatinine [Mass/volume] in Serum or PlasmaOrdered By: Jacky Alarcon on 03-10-2023 Creatinine [Mass/Vol] 0.64 mg/dL 0.60-1.[address] [facility] Dipstick and Microscopicon 1 05-11-2022 Appearance (U) Turbid Critically abnormal Clear [facility] Comment on above: Order Comment: Name Collection Type:: Clean-Voided Midstream Performed By: #### A DDONUAPLUS, CUU #### [place] [address] [place] Bacteria,Urine Rare High None Seen [facility] Comment on above: Order Comment: Name Collection Type:: Clean-Voided Midstream Performed By: #### A DDONUAPLUS, CUU #### [place] [address] [place] Bilirubin,Urine Negative Normal Negative [facility] Comment on above: Order Comment: Name Collection Type:: Clean-Voided Midstream Performed By: #### A DDONUAPLUS, CUU #### [address] Color (U) Dark Yellow Critically abnormal Yellow [facility] Comment on above: Order Comment: Name Collection Type:: Clean-Voided Midstream Performed By: #### A DDONUAPLUS, CUU #### [place] [address] [place] Glucose Ql (U) Normal Normal Normal [facility] Comment on above: Order Comment: Name Collection Type:: Clean-Voided Midstream Performed By: #### A DDONUAPLUS, CUU #### [place] [address] [place] Hyaline Casts,Urine 9-19 High 0-8 [facility] Comment on above: Order Comment: Name Collection Type:: Clean-Voided Midstream Result Comment: PERF ORMED BY: [address] [place] [address] PATHOLOGIST SKATE MAKER ANDRÉS MACEDO M.D. Performed By: #### A DDONUAPLUS, CUU #### [address] Ketones Ql (U) 4+ High Negative [facility] Comment on above: Order Comment: Name Collection Type:: Clean-Voided Midstream Performed By: #### A DDONUAPLUS, CUU #### [address] Leukocyte esterase Test strip Ql (U) 1+ High Negative [facility] Comment on above: Order Comment: Name Collection Type:: Clean-Voided Midstream Performed By: #### A DDONUAPLUS, CUU #### [address] Nitrite,Urine Negative Normal Negative [facility] Comment on above: Order Comment: Name Collection Type:: Clean-Voided Midstream Performed By: #### A DDONUAPLUS, CUU #### [address] Occult Blood,Urine 3+ High Negative [facility] Comment on above: Order Comment: Name Collection Type:: Clean-Voided Midstream Result Comment: PERF ORMED BY: [place] [address] PATHOLOGIST SKATE MAKER ANDRÉS MACEDO M.D. Performed By: #### A DDONUAPLUS, CUU #### [address] Othe Crystals,Urine Normal [facility] Comment on above: Order Comment: Name Collection Type:: Clean-Voided Midstream Result Comment: sulf a crystals Performed By: #### A DDONUAPLUS, CUU #### [address] pH (U) 6.5 [pH] Normal 5.0-9.0 [facility] Comment on above: Order Comment: Name Collection Type:: Clean-Voided Midstream Performed By: #### A DDONUAPLUS, CUU #### [address] Protein (U) [Mass/Vol] 100 mg/dL High Negative [facility] Comment on above: Order Comment: Name Collection Type:: Clean-Voided Midstream Performed By: #### A DDONUAPLUS, CUU #### [address] RBC,Urine 50-100 High 0-4 [facility] Comment on above: Order Comment: Name Collection Type:: Clean-Voided Midstream Performed By: #### A DDONUAPLUS, CUU #### [address] Specificy [place],Urine 1.029 Normal 1.001-1.03 0 [facility] Comment on above: Order Comment: Name Collection Type:: Clean-Voided Midstream Performed By: #### A DDONUAPLUS, CUU #### [address] Squamous Epithelial Cell,Urine 1-2 Normal 0-2 [facility] Comment on above: Order Comment: Name Collection Type:: Clean-Voided Midstream Performed By: #### A DDONUAPLUS, CUU #### [address] Urobilinogen,Urine Normal Normal Normal [facility] Comment on above: Order Comment: Name Collection Type:: Clean-Voided Midstream Performed By: #### A DDONUAPLUS, CUU #### [address] WBC,Urine 5-9 High 0-4 [facility] Comment on above: Order Comment: Name Collection Type:: Clean-Voided Midstream Performed By: #### A DDONUAPLUS, CUU #### [address] Eosinophils Auto (Bld) [#/Vo l]Ordered By: Jacky Alarcon on 03-10-2023 Eosinophils (Bld) [#/Vol] 0.1 10*3/uL 0.0-0.45 [facility] Eosinophils/100 WBC Auto (Bl d)Ordered By: Jacky Alarcon on 03-10-2023 Eosinophils/100 WBC (Bld) 0.5 % . [facility] Erythrocyte distribution wid th Auto (RBC) [Ratio]Ordered By: Jacky Alarcon on 03-10-2023 Erythrocyte distribution width (RBC) [Ratio] 13.3 % 11.9-15.3 [facility] Globulin Calc (S) [Mass/Vol] Ordered By: Jacky Alarcon on 03-10-2023 Globulin (S) [Mass/Vol] 3.5 g/dL [facility] Glucose [Mass/volume] in Ser um or PlasmaOrdered By: Jacky Alarcon on 03-10-2023 Glucose [Mass/Vol] 83 mg/dL 70-100 [facility] Comment on above: ADA recommended refe rence rangeRandom Glucose Reference Range is dependent on time and content of last meal. Glucose of more than 200 mg/dL in a nonstressed, ambulatory subject supports the diagnosis of Diabetes Mellitus. HCG ( test) IA.rapi d Ql (U)Ordered By: Jacky Alarcon on 03-10-2023 HCG ( test) Ql (U) Positive [facility] HCG,Quantitativeon HCG,Quantitative 10763.00 m[iU]/mL Normal [facility] Comment on above: Result Comment: Appr oximate Approximate hCG Gestational Age Range (mIU/ml) (weeks) 0.2-1 5-50 1-2 50-500 2-3 100-5,000 3-4 500-10,000 4-5 1,000-50,000 5-6 10,000-100,000 6-8 15,000-200,000 8-12 10,000-100,000 PERFORMED BY: [place] [address] PATHOLOGIST SKATE MAKER ANDRÉS MACEDO M.D. Performed By: #### L IPASE, HCGQNT, HEPATIC, BMP, CBC #### [address] HCG,Urineon 03-10-2023 Beta HCG ( test) Ql (U) Positive [facility] Comment on above: Result Comment: PERF ORMED BY: [place] [address] PATHOLOGIST SKATE MAKER ANDRÉS MACEDO M.D. Performed By: #### U HCG #### [facility] [address] [place] [address] Hematocrit Auto (Bld) [Volum e fraction]Ordered By: Jacky Alarcon on 03-10-2023 Hematocrit (Bld) [Volume fraction] 47.2 % 34.0-46.4 [facility] Hemoglobin [Mass/volume] in BloodOrdered By: Jacky Alarcon on 03-10-2023 Hemoglobin (Bld) [Mass/Vol] 16.5 g/dL 11.8-15.4 [facility] Hepatic Panelon 03-10-2023 Albumin [Mass/Vol] 4.5 g/dL Normal 3.5-5.7 [facility] Comment on above: Performed By: #### L IPASE, HCGQNT, HEPATIC, BMP, CBC #### [facility] [address] [place] [address] Albumin/Globulin [Mass ratio] 1.3 {ratio} Normal [facility] Comment on above: Performed By: #### L IPASE, HCGQNT, HEPATIC, BMP, CBC #### [facility] [address] [place] [address] ALP [Catalytic activity/Vol] 71 U/L Normal 34-104 [facility] Comment on above: Performed By: #### L IPASE, HCGQNT, HEPATIC, BMP, CBC #### [facility] [address] [place] [address] [place] ALT [Catalytic activity/Vol] 36 U/L Normal 7-52 [facility] Comment on above: Performed By: #### L IPASE, HCGQNT, HEPATIC, BMP, CBC #### [facility] [address] [place] [address] AST [Catalytic activity/Vol] 17 U/L Normal 13-39 [facility] Comment on above: Performed By: #### L IPASE, HCGQNT, HEPATIC, BMP, CBC #### [facility] [address] Bilirubin [Mass/Vol] 1.2 mg/dL High 0.3-1.0 [facility] Comment on above: Performed By: #### L IPASE, HCGQNT, HEPATIC, BMP, CBC #### [facility] [address] Bilirubin,Indirect 0.8 mg/dL Normal [facility] Comment on above: Performed By: #### L IPASE, HCGQNT, HEPATIC, BMP, CBC #### [facility] [address] Bilirubin.indirect [Mass/Vol] 0.40 mg/dL High 0.03-0.18 [facility] Comment on above: Performed By: #### L IPASE, HCGQNT, HEPATIC, BMP, CBC #### [address] Globulin (S) [Mass/Vol] 3.5 g/dL Normal [facility] Comment on above: Performed By: #### L IPASE, HCGQNT, HEPATIC, BMP, CBC #### [address] Protein [Mass/Vol] 8.0 g/dL Normal 6.4-8.9 [facility] Comment on above: Performed By: #### L IPASE, HCGQNT, HEPATIC, BMP, CBC #### [address] Ketones Auto test strip (U) [Mass/Vol]Ordered By: Jacky Alarcon on 03-10-2023 Ketones (U) [Mass/Vol] 4+ Negative [facility] - UrinalysisOrder ed By: Jacky Alarcon on 03-10-2023 Hyaline casts LM Ql (Urine sed) 9-19 [LPF] 0-8 [facility] Leukocytes [#/volume] correc anabell for nucleated erythrocytes in Blood by Automated counOrdered By: Jacky Alarcon on 03-10-2023 WBC corrected for nucl RBC Auto (Bld) [#/Vol] 16.0 10*3/uL 3.8-11.6 [facility] Lipaseon 03-10-2023 Lipase [Catalytic activity/Vol] 35.0 U/L Normal 11.0-82.0 [facility] Comment on above: Result Comment: PERF ORMED BY: [facility] [address] [place] [address] PATHOLOGIST SKATE MAKER ANDRÉS MACEDO M.D. Performed By: #### L IPASE, HCGQNT, HEPATIC, BMP, CBC #### [facility] [address] Lipase [Enzymatic activity/v olume] in Serum or PlasmaOrdered By: Jacky Alarcon on 03-10-2023 Lipase [Catalytic activity/Vol] 35.0 U/L 11.0-82.0 [facility] Lymphocytes Auto (Bld) [#/Vo l]Ordered By: Jacky Alarcon on 03-10-2023 Lymphocytes (Bld) [#/Vol] 1.9 10*3/uL 1.00-4.8 [facility] Lymphocytes/100 WBC Auto (Bl d)Ordered By: Jacky Alarcon on 03-10-2023 Lymphocytes/100 WBC (Bld) 11.6 % . [facility] MCH Auto (RBC) [Entitic mass ]Ordered By: Jacky Alarcon on 03-10-2023 MCH (RBC) [Entitic mass] 30.8 pg 24.7-34.3 [facility] MCHC Auto (RBC) [Mass/Vol]Or dered By: Jacky Alarcon on 03-10-2023 MCHC (RBC) [Mass/Vol] 35.0 g/dL 32.0-35.[address] [facility] MCV Auto (RBC) [Entitic vol] Ordered By: Jacky Alarcon on 03-10-2023 MCV (RBC) [Entitic vol] 87.8 fL 80-100 [facility] Monocyte distribution width [Entitic volume] in Blood by AutomatedOrdered By: Jacky Alarcon on 03-10-2023 Monocyte distribution width Auto (Bld) [Entitic vol] 16.05 % 0.00-20.00 [facility] Monocytes Auto (Bld) [#/Vol] Ordered By: Jacky Alarcon on 03-10-2023 Monocytes (Bld) [#/Vol] 1.4 10*3/uL 0.0-0.8 [facility] Monocytes/100 WBC Auto (Bld) Ordered By: Jacky Alarcon on 03-10-2023 Monocytes/100 WBC (Bld) 8.8 % . [facility] Neutrophils Auto (Bld) [#/Vo l]Ordered By: Jacky Alarcon on 03-10-2023 Neutrophils (Bld) [#/Vol] 12.6 10*3/uL 1.8-7.7 [facility] Neutrophils/100 WBC Auto (Bl d)Ordered By: Jacky Alarcon on 03-10-2023 Neutrophils/100 WBC (Bld) 78.7 % . [facility] Nitrite Test strip Ql (U)Ord ered By: Jacky Alarcon on 03-10-2023 Nitrite Ql (U) Negative Negative [facility] No Panel InformationOrdered By: Jacky Alarcon on 03-10-2023 Estimated GFR (CKD-EPI) > 60.0 mL/Min [facility] Pharmacy Creatinine Clearance (Chem 148.58 [facility] Nucleated erythrocytes [Pres ence] in Blood by Automated countOrdered By: Jacky Alarcon on 03-10-2023 Nucleated RBC Auto Ql (Bld) 0.1 /100{WBC} 0-0.5 [facility] Platelet mean volume Auto (B ld) [Entitic vol]Ordered By: Jacky Alarcon on 03-10-2023 Platelet mean volume (Bld) [Entitic vol] 9.7 fL 6.3-10.7 [facility] Platelets Auto (Bld) [#/Vol] Ordered By: Jacky Alarcon on 03-10-2023 Platelets (Bld) [#/Vol] 263 10*3/uL 150-450 [facility] Potassium [Moles/volume] in Serum or PlasmaOrdered By: Jacky Alarcon on 03-10-2023 Potassium [Moles/Vol] 3.3 mmol/L 3.5-5.[address] [facility] Protein Auto test strip (U) [Mass/Vol]Ordered By: Jacky Alarcon on 03-10-2023 Protein (U) [Mass/Vol] 100 mg/dL Negative [facility] Protein [Mass/volume] in Ser um or PlasmaOrdered By: Jacky Alarcon on 03-10-2023 Protein [Mass/Vol] 8.0 g/dL 6.4-8.9 [facility] RBC Auto (Bld) [#/Vol]Ordere d By: Jacky Alarcon on 03-10-2023 RBC (Bld) [#/Vol] 5.37 10*6/uL 3.60-5.00 [facility] Serum or plasma albumin/glob ulin mass ratioOrdered By: Jacky Alarcon on 03-10-2023 Albumin/Globulin [Mass ratio] 1.3 {ratio} [facility] Serum or plasma anion gap de terminationOrdered By: Jacky Alarcon on 03-10-2023 Anion gap [Moles/Vol] 16.5 mmol/L 6.0-15.0 [facility] Serum or plasma non-glucuron idated bilirubin measurement (mass/volume)Ordered By: Jacky Alarcon on 03-10-2023 Bilirubin.indirect [Mass/Vol] 0.8 mg/dL [facility] Sodium [Moles/volume] in Ser um or PlasmaOrdered By: Jacky Alarcon on 03-10-2023 Sodium [Moles/Vol] 133 mmol/L 136-145 [facility] Specific gravity Auto test s trip (U) [Rel density]Ordered By: Jacky Alarcon on 03-10-2023 Specific gravity (U) [Rel density] 1.029 1.001-1.03 0 [facility] Squamous epithelial cells de tection in urine sediment by light microscopyOrdered By: Jacky Alarcon on 03-10-2023 Epithelial cells.squamous LM Ql (Urine sed) 1-2 [HPF] 0-2 [facility] Urea nitrogen [Mass/volume] in Serum or PlasmaOrdered By: Jacky Alarcon on 03-10-2023 Urea nitrogen [Mass/Vol] 6 mg/dL 7-25 [facility] Urine Cultureon 03-10-2023 Bacteria identified Cx Nom (U) >100,000 colonies/ml mixed bacterial skin contaminants 2 Days PERFORMED BY: [place] [id number] [place] [address] PATHOLOGIST SKATE MAKER ANDRÉS MACEDO M.D. Normal [facility] Comment on above: Performed By: #### A DDONUAPLUS, CUU #### [facility] [address] Urine bacteria detection by automated methodOrdered By: Jacky Alarcon on 03-10-2023 Bacteria Auto Ql (U) Rare None Seen [facility] Urine clarity by refractomet ry automatedOrdered By: Jacky Alarcon on 03-10-2023 Clarity Refractometry automated (U) Turbid Clear [facility] Urine glucose measurement by automated test strip (mass/volume)Ordered By: Jacky Alarcon on 03-10-2023 Glucose Auto test strip (U) [Mass/Vol] Normal mg/dL Normal [facility] Urine hemoglobin detection b y automated test stripOrdered By: Jacky Alarcon on 03-10-2023 Hemoglobin Auto test strip Ql (U) 3+ Negative [facility] Urine leukocyte esterase det ection by automated test stripOrdered By: Jacky Alarcon on 03-10-2023 Leukocyte esterase Auto test strip Ql (U) 1+ Negative [facility] Urine sediment crystal ident ification by light microscopyOrdered By: Jacky Alarcon on 03-10-2023 Crystals LM Nom (Urine sed) See comment [facility] Comment on above: sulfa crystals Urobilinogen Auto test strip (U) [Mass/Vol]Ordered By: Jacky Alarcon on 03-10-2023 Urobilinogen (U) [Mass/Vol] Normal mg/dL Normal [facility] WBC Auto (Bld) [#/Vol]Ordere d By: Jacky Alarcon on 03-10-2023 WBC (Bld) [#/Vol] 16.0 10*3/uL 3.8-11.6 [facility] pH Auto test strip (U)Ordere d By: Jacky Alarcon on 03-10-2023 pH (U) 6.5 [pH] 5.0-9.0 [facility] CBC AUTO DIFFon 07-30-2022 BASO # 0.1 103/ul Normal 0.0-0.1 [facility] Comment on above: Performed By: #### G TT3P #### [facility] [address] [address] [address] Jackelyn Celestin Basophils/100 WBC (Bld) 0.6 % Normal 0.2-2.0 [facility] Comment on above: Performed By: #### G TT3P #### [facility] [address] [place] [address] Dr. Jackelyn Celestin EO # 0.2 103/ul Normal 0.0-0.[address] [facility] Comment on above: Performed By: #### G TT3P #### [facility] [address] [place] [address] Dr. Jackelyn Celestin Eosinophils/100 WBC (Bld) 1.5 % Normal 0.9-7.0 [facility] Comment on above: Performed By: #### G TT3P #### [facility] [address] [place] [address] Dr. Jackelyn Celestin Erythrocyte distribution width (RBC) [Ratio] 14.5 % Normal 11.0-15.0 [facility] Comment on above: Performed By: #### G TT3P #### [facility] [address] [place] [address] Dr. Jackelyn Celestin Hematocrit (Bld) [Volume fraction] 33.9 % Critically low 36.0-48.0 [facility] Comment on above: Performed By: #### G TT3P #### [facility] [address] [place] [address] Dr. Jackelyn Celestin Hemoglobin (Bld) [Mass/Vol] 11.0 g/dL Critically low 12.0-16.0 [facility] Comment on above: Performed By: #### G TT3P #### [facility] [address] [place] [address] Dr. Jackelyn Celestin IG # 0.13 10e3/ul Critically high 0.00-0.03 [facility] Comment on above: Performed By: #### G TT3P #### [facility] [address] [place] [address] Dr. Jackelyn Celestin IG % 1.1 % Critically high 0.0-0.5 [facility] Comment on above: Performed By: #### G TT3P #### [facility] [address] [place] [address] Dr. Jackelyn Celestin LYMPH # 2.2 103/ul Normal 1.2-3.8 [facility] Comment on above: Performed By: #### G TT3P #### [facility] [address] [place] [address] Dr. Jackelyn Celestin Lymphocytes/100 WBC (Bld) 17.9 % Critically low 20.5-60.0 [facility] Comment on above: Performed By: #### G TT3P #### [facility] [address] [place] [address] Dr. Jackelyn Celestin MANUAL DIFF REQ NO Normal [facility] Comment on above: Performed By: #### G TT3P #### [facility] [address] [place] [address] Dr. Jackelyn Celestin MCH (RBC) [Entitic mass] 28.6 pg Normal 26.7-34.0 [facility] Comment on above: Performed By: #### G TT3P #### [facility] [address] [place] [address] Dr. Jackelyn Celestin MCHC (RBC) [Mass/Vol] 32.4 g/dL Normal 29.9-35.2 [facility] Comment on above: Performed By: #### G TT3P #### [facility] [address] [place] [address] Dr. Jackelyn Celestin MCV (RBC) [Entitic vol] 88.1 fL Normal 81.0-99.0 [facility] Comment on above: Performed By: #### G TT3P #### [facility] [address] [place] [address] Dr. Jackelyn Celestin MONO # 0.8 103/ul Normal 0.3-0.[address] [facility] Comment on above: Performed By: #### G TT3P #### [facility] [address] [place] [address] Dr. Jackelyn Celestin Monocytes/100 WBC (Bld) 6.9 % Normal 1.7-12.0 [facility] Comment on above: Performed By: #### G TT3P #### [facility] [address] [place] [address] Dr. Jackelyn Celestin NEUT # 8.7 103/ul Critically high 1.4-6.5 [facility] Comment on above: Performed By: #### G TT3P #### [facility] [address] [place] [address] Dr. Jackelyn Celestin Neutrophils/100 WBC (Bld) 72.0 % Normal 43.0-75.0 [facility] Comment on above: Performed By: #### G TT3P #### [facility] [address] [place] [address] Dr. Jackelyn Celestin Platelet mean volume (Bld) [Entitic vol] 11.5 fL Normal 9.5-13.5 [facility] Comment on above: Performed By: #### G TT3P #### [facility] [address] [place] [address] Dr. Jackelyn Celestin PLT 146 103/ul Critically low 150-450 [facility] Comment on above: Performed By: #### G TT3P #### [facility] [address] [place] [address] Dr. Jackelyn Celestin RBC 3.85 106/ul Critically low 4.20-5.40 [facility] Comment on above: Performed By: #### G TT3P #### [facility] [address] [place] [address] Dr. Jackelyn Celestin WBC 12.1 103/ul Critically high 4.0-11.0 [facility] Comment on above: Performed By: #### G TT3P #### [facility] [address] [place] [address] Dr. Jackelyn Celestin CBC AUTO DIFFon 07-29-2022 BASO # 0.0 103/ul Normal 0.0-0.1 [facility] Comment on above: Performed By: #### [id number] #### [facility] [address] [place] [address] Dr. Jackelyn Celestin Basophils/100 WBC (Bld) 0.4 % Normal 0.2-2.0 [facility] Comment on above: Performed By: #### [id number] #### [facility] [address] [place] [address] Dr. Jackelyn Celestin EO # 0.2 103/ul Normal 0.0-0.[address] [facility] Comment on above: Performed By: #### 4 [id number] #### [facility] [address] [place] [address] Dr. Jackelyn Celestin Eosinophils/100 WBC (Bld) 1.4 % Normal 0.9-7.0 [facility] Comment on above: Performed By: #### 4 [id number] #### [facility] [address] [place] [address] Dr. Jackelyn Celestin Erythrocyte distribution width (RBC) [Ratio] 14.1 % Normal 11.0-15.0 [facility] Comment on above: Performed By: #### 4 [id number] #### [facility] [address] [place] [address] Dr. Jackelyn Celestin Hematocrit (Bld) [Volume fraction] 36.0 % Normal 36.0-48.0 [facility] Comment on above: Performed By: #### [id number] #### [facility] [address] [place] [address] Dr. Jackelyn Celestin Hemoglobin (Bld) [Mass/Vol] 12.2 g/dL Normal 12.0-16.0 [facility] Comment on above: Performed By: #### 4 [id number] #### [facility] [address] [place] [address] Dr. Jackelyn Celsetin IG # 0.10 10e3/ul Critically high 0.00-0.[address] [facility] Comment on above: Performed By: #### 4 [id number] #### [facility] [address] [place] [address] Dr. Jackelyn Celestin IG % 0.9 % Critically high 0.0-0.[address] [facility] Comment on above: Performed By: #### 4 [id number] #### [facility] [address] [place] [address] Dr. Jackelyn Celestin LYMPH # 1.9 103/ul Normal 1.2-3.[address] [facility] Comment on above: Performed By: #### [id number] #### [facility] [address] [place] [address] Dr. Jackelyn Celestin Lymphocytes/100 WBC (Bld) 17.7 % Critically low 20.5-60.0 [facility] Comment on above: Performed By: #### 4 [id number] #### [facility] [address] [place] [address] Dr. Jackelyn Celestin MANUAL DIFF REQ NO Normal [facility] Comment on above: Performed By: #### [id number] #### [facility] [address] [place] [address] Dr. Jackelyn Celestin MCH (RBC) [Entitic mass] 28.8 pg Normal 26.7-34.0 [facility] Comment on above: Performed By: #### 4 [id number] #### [facility] [address] [place] [address] Dr. Jackelyn Celestin MCHC (RBC) [Mass/Vol] 33.9 g/dL Normal 29.9-35.[address] [facility] Comment on above: Performed By: #### 4 [id number] #### [facility] [address] [place] [address] Dr. Jackelyn Celestin MCV (RBC) [Entitic vol] 84.9 fL Normal 81.0-99.0 [facility] Comment on above: Performed By: #### 4 [id number] #### [facility] [address] [place] [address] Dr. Jackelyn Celestin MONO # 0.9 103/ul Critically high 0.3-0.[address] [facility] Comment on above: Performed By: #### 4 [id number] #### [facility] [address] [place] [address] Dr. Jackelyn Celestin Monocytes/100 WBC (Bld) 8.4 % Normal 1.7-12.[address] [facility] Comment on above: Performed By: #### 4 [id number] #### [facility] [address] [place] [address] Dr. Jackelyn Celestin NEUT # 7.7 103/ul Critically high 1.4-6.[address] [facility] Comment on above: Performed By: #### 4 [id number] #### [facility] [address] [place] [address] Dr. Jackelyn Celestin Neutrophils/100 WBC (Bld) 71.2 % Normal 43.0-75.0 [facility] Comment on above: Performed By: #### 4 [id number] #### [facility] [address] [place] [address] Dr. Jackelyn Celestin Platelet mean volume (Bld) [Entitic vol] 10.9 fL Normal 9.5-13.5 [facility] Comment on above: Performed By: #### 4 [id number] #### [facility] [address] [place] [address] Dr. Jackelyn Celestin PLT 170 103/ul Normal 150-450 [facility] Comment on above: Performed By: #### 4 [id number] #### [facility] [address] [place] [address] Dr. Jackelyn Celestin RBC 4.24 106/ul Normal 4.20-5.40 [facility] Comment on above: Performed By: #### 4 [id number] #### [facility] [address] [place] [address] Dr. Jackelyn Celestin WBC 10.8 103/ul Normal 4.0-11.0 [facility] Comment on above: Performed By: #### 4 [id number] #### [facility] [address] [place] [address] Dr. Jackelyn Celestin DRUG SCREEN RAPID (URINE)on 07-29-2022 AMP Negative Normal NEGATIVE [facility] Comment on above: Performed By: #### 4 [id number] #### [facility] [address] [place] [address] Dr. Jackelyn Celestin BAR Negative Normal NEGATIVE [facility] Comment on above: Performed By: #### 4 [id number] #### [facility] [address] [place] [address] Dr. Jackelyn Celestin BUP Negative Normal NEGATIVE [facility] Comment on above: Performed By: #### 4 [id number] #### [facility] [address] [place] [address] Dr. Jackelyn Celestin BZO Negative Normal NEGATIVE [facility] Comment on above: Performed By: #### 4 [id number] #### [facility] [address] [place] [address] Dr. Jackelyn Celestin HOMERO Negative Normal NEGATIVE [facility] Comment on above: Performed By: #### 4 [id number] #### [facility] [address] [place] [address] Dr. Jackelyn Celestin CUT-OFFS SEE BELOW Normal [facility] Comment on above: Result Comment: AMP (Amphetamine): 500ng/mL, BAR (Barbituates): 200 ng/mL, BZO (Benzodiazepines): 150 ng/mL, BUP (Buprenorphine): 10 ng/mL, HOMERO (Cocaine): 150 ng/mL, mAMP (Methamphetamine): 500 ng/mL, MTD (Methadone): 200 ng/mL, OPI (Opiates): 100 ng/mL, OXY (Oxycodone): 100 ng/mL, PCP (Phencyclidine): 25 ng/mL, PPX (Propoxyphene): 300 ng/mL, THC (Cannabinoids): 50 ng/mL, TCA (Trycyclic Antidepressants): 300 ng/mL Performed By: #### [id number] #### [facility] [address] [place] [address] Dr. Jackelyn Celestin DRUG CUT HEADER DRUG CLASS TEST SYST EM CUT-OFF CONCENTRATIONS ARE FOLLOWS: Normal [facility] Comment on above: Performed By: #### 4 [id number] #### [facility] [address] [place] [address] Dr. Jackelyn Celestin mAMP Negative Normal NEGATIVE [facility] Comment on above: Performed By: #### 4 [id number] #### [facility] [address] [place] [address] Dr. Jackelyn Celestin MTD Negative Normal NEGATIVE [facility] Comment on above: Performed By: #### 4 [id number] #### [facility] [address] [place] [address] Dr. Jackelyn Celestin OPI Negative Normal NEGATIVE [facility] Comment on above: Performed By: #### 4 [id number] #### [facility] [address] [place] [address] Dr. Jackelyn Celestin OXY Negative Normal NEGATIVE [facility] Comment on above: Performed By: #### 4 [id number] #### [facility] [address] [place] [address] Dr. Jackelyn Celestin PCP Negative Normal NEGATIVE [facility] Comment on above: Performed By: #### 4 [id number] #### [facility] [address] [place] [address] Dr. Jackelyn Celestin PPX Negative Normal NEGATIVE [facility] Comment on above: Performed By: #### 4 [id number] #### [facility] [address] [place] [address] Dr. Jackelyn Celestin TCA Negative Normal NEGATIVE [facility] Comment on above: Performed By: #### 4 [id number] #### [facility] [address] [place] [address] Dr. Jackelyn Celestin THC Negative Normal NEGATIVE [facility] Comment on above: Performed By: #### 4 [id number] #### [facility] [address] [place] [address] Dr. Jackelyn Celestin TYPE AND SCREENon 07-29-2022 TYPE AND SCREEN Negative Normal [facility] Comment on above: Performed By: #### G TT3P #### [facility] [address] [place] [address] Dr. Jackelyn Celestin US PREG GROWTHon 07-25-2022 [...] TRISTAN HART Date: 2022-07-24 22:[address] [facility] GROUP B STREP CULTUREon 06-09 S. agalactiae Ag Ql (Unsp spec) Culture Observations: NEGATIVE FOR GROUP B STREPTOCOCCUS. Normal [facility] [facility] Comment on above: Performed By: #### G TT3P #### [facility] [address] [address] [address] Jackelyn Celestin US PREG GROWTHon 06-06-2022 [...] TRISTAN HART Date: 2022-06-06 15:[address] [facility] GTT 3 HR PREGon 05-21-2022 Glucose [Mass/Vol] 91 mg/dL Normal 74-[address] [facility] Comment on above: Performed By: #### G TT3P #### [facility] [address] [place] [address] Dr. Jackelyn Celestin Glucose [Mass/Vol] 168 mg/dL Normal [facility] Comment on above: Performed By: #### G TT3P #### [facility] [address] [place] [address] Dr. Jackelyn Celestin Glucose [Mass/Vol] 121 mg/dL [facility] Comment on above: Performed By: #### G TT3P #### [facility] [address] [place] [address] Dr. Jackelyn Celestin Glucose [Mass/Vol] 86 mg/dL [facility] Comment on above: Performed By: #### G TT3P #### [facility] [address] [place] [address] Dr. Jackelyn Celestin PAP ACOG PANEL 2: 21 to 29on 05-17-2022 . . Normal [facility] Comment on above: Performed By: #### 4 [id number] #### [facility] [address] [place] [address] Dr. Jackelyn Celestin DIAGNOSIS: Comment [facility] Comment on above: Result Comment: NEGA TIVE FOR INTRAEPITHELIAL LESION OR MALIGNANCY. Performed By: #### 4 [id number] #### [facility] [address] [place] [address] Dr. Jackelyn Celestin Methodology: Comment [facility] Comment on above: Result Comment: This liquid based ThinPrep(R) pap test was screened with the use of an image guided system. Performed By: #### 4 [id number] #### [facility] [address] [place] [address] Dr. Jackelyn Celestin Note: Comment [facility] Comment on above: Result Comment: The Pap smear is a screening test designed to aid in the detection of premalignant and malignant conditions of the uterine cervix. It is not a diagnostic procedure and should not be used as the sole means of detecting cervical cancer. Both false-positive and false-negative reports do occur. . Performed By: #### 4 [id number] #### [facility] [address] [place] [address] Dr. Jackelyn Celestin Performed by: Comment Normal [facility] Comment on above: Result Comment: Alphonso Walker, Paid Search Specialist (ASCP) Performed By: #### 4 [id number] #### [facility] [address] [place] [address] Dr. Jackelyn Celestin Reflex Criteria: Comment Normal [facility] Comment on above: Result Comment: The HPV DNA reflex criteria were not met with this specimen result therefore, no HPV testing was performed. . Performed By: #### 4 [id number] #### [facility] [address] [place] [address] Dr. Jackelyn Celestin Specimen adequacy: Comment Normal [facility] Comment on above: Result Comment: Sati sfactory for evaluation. No endocervical component is identified. Performed By: #### 4 [id number] #### [facility] [address] [place] [address] Dr. Jackelyn Celestin Age Gdln ACOG Testing 19- Normal [facility] Comment on above: Performed By: #### 4 [id number] #### [facility] [address] [place] [address] Dr. Jackelyn Celestin CHLAMYDIA/GONOCOCCUS ALONDRA (SW AB/URINE/PAPon 05-14-2022 Chlamydia trachomatis, ALONDRA Negative Normal Negative [facility] Comment on above: Performed By: #### G TT3P #### [facility] [address] [place] [address] Dr. Jackelyn Celestin Neisseria gonorrhoeae, ALONDRA Negative Normal Negative [facility] Comment on above: Performed By: #### G TT3P #### [facility] [address] [place] [address] Dr. Jackelyn Celestin VAGINITIS/VAGINOSIS DNA PROB Dean 05-13-2022 Thao species Negative Normal Negative [facility] Comment on above: Performed By: #### [id number] #### [facility] [address] [place] [address] Dr. Jackelyn Celestin Gardnerella vaginalis Negative Normal Negative [facility] Comment on above: Performed By: #### 4 [id number] #### [facility] [address] [place] [address] Dr. Jackelyn Celestin Trichomonas vaginalis Negative Normal Negative [facility] Comment on above: Performed By: #### 4 [id number] #### [facility] [address] [place] [address] Dr. Jackelyn Celestin CBC AUTO DIFFon 05-09-2022 BASO # 0.0 103/ul Normal 0.0-0.1 [facility] Comment on above: Performed By: #### C BC #### [facility] [address] [place] [address] Dr. Jackelyn Celestin Basophils/100 WBC (Bld) 0.3 % Normal 0.2-2.0 [facility] Comment on above: Performed By: #### C BC #### [facility] [address] [place] [address] Dr. Jackelyn Celestin EO # 0.1 103/ul Normal 0.0-0.7 [facility] Comment on above: Performed By: #### C BC #### [facility] [address] [place] [address] Dr. Jackelyn Celestin Eosinophils/100 WBC (Bld) 1.2 % Normal 0.9-7.0 [facility] Comment on above: Performed By: #### C BC #### [facility] [address] [place] [address] Dr. Jackelyn Celestin Erythrocyte distribution width (RBC) [Ratio] 11.9 % Normal 11.0-15.0 [facility] Comment on above: Performed By: #### C BC #### [facility] [address] [place] [address] Dr. Jackelyn Celestin Hematocrit (Bld) [Volume fraction] 33.7 % Critically low 36.0-48.0 [facility] Comment on above: Performed By: #### C BC #### [facility] [address] [place] [address] Dr. Jackelyn Celestin Hemoglobin (Bld) [Mass/Vol] 12.0 g/dL Normal 12.0-16.[address] [facility] Comment on above: Performed By: #### C BC #### [facility] [address] [place] [address] Dr. Jackelyn Celestin IG # 0.07 10e3/ul Critically high 0.00-0.03 [facility] Comment on above: Performed By: #### C BC #### [facility] [address] [place] [address] Dr. Jackelyn Celestin IG % 0.6 % Critically high 0.0-0.5 [facility] Comment on above: Performed By: #### C BC #### [facility] [address] [place] [address] Dr. Jackelyn Celestin LYMPH # 1.3 103/ul Normal 1.2-3.8 [facility] Comment on above: Performed By: #### C BC #### [facility] [address] [place] [address] Dr. Jackelyn Celestin Lymphocytes/100 WBC (Bld) 11.5 % Critically low 20.5-60.0 [facility] Comment on above: Performed By: #### C BC #### [facility] [address] [place] [address] Dr. Jackelyn Celestin MANUAL DIFF REQ NO Normal [facility] Comment on above: Performed By: #### C BC #### [facility] [address] [place] [address] Dr. Jackelyn Celestin MCH (RBC) [Entitic mass] 31.0 pg Normal 26.7-34.0 [facility] Comment on above: Performed By: #### C BC #### [facility] [address] [place] [address] Dr. Jackelyn Celestin MCHC (RBC) [Mass/Vol] 35.6 g/dL Critically high 29.9-35.2 [facility] Comment on above: Performed By: #### C BC #### [facility] [address] [place] [address] Dr. Jackelyn Celestin MCV (RBC) [Entitic vol] 87.1 fL Normal 81.0-99.0 [facility] Comment on above: Performed By: #### C BC #### [facility] [address] [place] [address] Dr. Jackelyn Celestin MONO # 0.5 103/ul Normal 0.3-0.8 [facility] Comment on above: Performed By: #### C BC #### [facility] [address] [place] [address] Dr. Jackelyn Celestin Monocytes/100 WBC (Bld) 4.8 % Normal 1.7-12.0 [facility] Comment on above: Performed By: #### C BC #### [facility] [address] [place] [address] Dr. Jackelyn Celestin NEUT # 8.9 103/ul Critically high 1.4-6.5 [facility] Comment on above: Performed By: #### C BC #### [facility] [address] [place] [address] Dr. Jackelyn Celestin Neutrophils/100 WBC (Bld) 81.6 % Critically high 43.0-75.0 [facility] Comment on above: Performed By: #### C BC #### [facility] [address] [place] [address] Dr. Jackelyn Celestin Platelet mean volume (Bld) [Entitic vol] 11.3 fL Normal 9.5-13.5 [facility] Comment on above: Performed By: #### C BC #### [facility] [address] [place] [address] Dr. Jackelyn Celestin PLT 171 103/ul Normal 150-450 [facility] Comment on above: Performed By: #### C BC #### [facility] [address] [place] [address] Dr. Jackelyn Celestin RBC 3.87 106/ul Critically low 4.20-5.40 [facility] Comment on above: Performed By: #### C BC #### [facility] [address] [place] [address] Dr. Jackelyn Celestin WBC 10.9 103/ul Normal 4.0-11.0 [facility] Comment on above: Performed By: #### C BC #### [facility] [address] [place] [address] Dr. Jackelyn Celestin GLUCOSE - 1HRon 05-09-2022 Glucose [Mass/Vol] 142 mg/dL Critically high 74-106 [facility] Comment on above: Performed By: #### [id number] #### [facility] [address] [place] [address] Dr. Jackelyn Celestin US PREG BIOPHY W [...] by: TRISTAN HART Date: 2022-05-09 10:35 Normal [facility] US PREG PLACENTAon US PREG PLACENTA EXAMINATION: US PREG PLACENTA HISTORY: Falls ; mild cramping after falling COMPARISON: Ultrasound anatomy 03/17/2022 FINDINGS: PLACENTA: Posterior without previa, subchorionic hematoma, or abruption. CERVIX LENGTH: Not evaluated. HEART RATE: 158 bpm OTHER: None. IMPRESSION: 1. Unremarkable posterior placenta. No suspicious findings. Electronically authenticated by: TRISTAN HART Date: 2022-05-09 10:29 Normal [facility] US PREG ANATOMY SINGLEon US PREG ANATOMY [...] TRISTAN HART Date: 2022-03-17 16:[address] [facility] HEP B SURFACE ANTIGEN SCREEN on 02-15-2022 HBsAg Screen Negative Normal Negative [facility] Comment on above: Performed By: #### [id number] #### [facility] [address] [address] [address] Jackelyn Celestin HEPATITIS C VIRUS AB W/ REFL EX QUANTon 02-15-2022 HCV AB <0.1 Normal 0.0-0.9 [facility] Comment on above: Performed By: #### H CVPCRR #### [facility] [address] [address] [address] Jackelyn Celestin Interpretation: Comment Normal [facility] Comment on above: Result Comment: Nega tive Not infected with HCV, unless recent infection is suspected or other evidence exists to indicate HCV infection. Performed By: #### H CVPCRR #### [facility] [address] [address] [address] Jackelyn Celestin HIV 1 AND 2 WITH REFLEXon HIV Screen 4th Generation wRfx Non-Reactive Normal Non Reactive [facility] Comment on above: Result Comment: HIV Negative HIV-1/HIV-2 antibodies and HIV-1 p24 antigen were NOT detected. There is no laboratory evidence of HIV infection. Performed By: #### H IV12 #### [facility] [address] [place] [address] Dr. Jackelyn Celestin RPR QUANTon 02-15-2022 Rapid Plasma Reagin, Quant Non-Reactive Normal NonRea<1:[address] [facility] Comment on above: Result Comment: Plea se Note: This test does not meet current guidelines for screening and diagnosis of syphilis. This test is intended for following treatment response in patients being treated for syphilis infection. To screen for syphilis infection, a reflex cascade that includes both RPR and a treponema-specific assay should be utilized, such as Treponema pallidum (Syphilis) Screening [place] (852919) or Rapid Plasma Reagin (RPR) Test With Reflex to Quantitative RPR and Confirmatory Treponema pallidum Antibodies (672172). Performed By: #### R PRQ #### [facility] [address] [place] [address] Dr. Jackelyn Celestin RUBELLA AB IGGon 02-15-2022 Rubella Antibodies, IgG 1.97 index Normal Immune >0.99 [facility] Comment on above: Result Comment: Non- immune <0.90 Equivocal 0.90 - 0.99 Immune >0.99 Performed By: #### R UBIGG #### [facility] [address] [place] [address] Dr. Jackelyn Celestin CBC AUTO DIFFon 02-12-2022 BASO # 0.0 103/ul Normal 0.0-0.1 [facility] Comment on above: Performed By: #### C BC #### [facility] [address] [place] [address] Dr. Jackelyn Celestin Basophils/100 WBC (Bld) 0.4 % Normal 0.2-2.0 [facility] Comment on above: Performed By: #### C BC #### [facility] [address] [place] [address] Dr. Jackelyn Celestin EO # 0.2 103/ul Normal 0.0-0.7 [facility] Comment on above: Performed By: #### C BC #### [facility] [address] [place] [address] Dr. Jackelyn Celestin Eosinophils/100 WBC (Bld) 2.0 % Normal 0.9-7.[address] [facility] Comment on above: Performed By: #### C BC #### [facility] [address] [place] [address] Dr. Jackelyn Celestin Erythrocyte distribution width (RBC) [Ratio] 12.8 % Normal 11.0-15.0 [facility] Comment on above: Performed By: #### C BC #### [facility] [address] [place] [address] Dr. Jackelyn Celestin Hematocrit (Bld) [Volume fraction] 40.7 % Normal 36.0-48.0 [facility] Comment on above: Performed By: #### C BC #### [facility] [address] [place] [address] Dr. Jackelyn Celestin Hemoglobin (Bld) [Mass/Vol] 14.4 g/dL Normal 12.0-16.[address] [facility] Comment on above: Performed By: #### C BC #### [facility] [address] [place] [address] Dr. Jackelyn Celestin IG # 0.05 10e3/ul Critically high 0.00-0.03 [facility] Comment on above: Performed By: #### C BC #### [facility] [address] [place] [address] Dr. Jackelyn Celestin IG % 0.4 % Normal 0.0-0.5 [facility] Comment on above: Performed By: #### C BC #### [facility] [address] [place] [address] Dr. Jackelyn Celestin LYMPH # 1.7 103/ul Normal 1.2-3.8 [facility] Comment on above: Performed By: #### C BC #### [facility] [address] [place] [address] Dr. Jackelyn Celestin Lymphocytes/100 WBC (Bld) 15.1 % Critically low 20.5-60.0 [facility] Comment on above: Performed By: #### C BC #### [facility] [address] [place] [address] Dr. Jackelyn Celestin MANUAL DIFF REQ NO Normal [facility] Comment on above: Performed By: #### C BC #### [facility] [address] [place] [address] Dr. Jackelyn Celestin MCH (RBC) [Entitic mass] 31.2 pg Normal 26.7-34.0 [facility] Comment on above: Performed By: #### C BC #### [facility] [address] [place] [address] Dr. Jackelyn Celestin MCHC (RBC) [Mass/Vol] 35.4 g/dL Critically high 29.9-35.2 [facility] Comment on above: Performed By: #### C BC #### [facility] [address] [place] [address] Dr. Jackelyn Celestin MCV (RBC) [Entitic vol] 88.1 fL Normal 81.0-99.0 [facility] Comment on above: Performed By: #### C BC #### [facility] [address] [address] [address] Jackelyn Celestin MONO # 0.4 103/ul Normal 0.3-0.8 [facility] Comment on above: Performed By: #### C BC #### [facility] [address] [place] [address] Dr. Jackelyn Celestin Monocytes/100 WBC (Bld) 3.3 % Normal 1.7-12.0 [facility] Comment on above: Performed By: #### C BC #### [facility] [address] [place] [address] Dr. Jackelyn Celestin NEUT # 8.8 103/ul Critically high 1.4-6.5 [facility] Comment on above: Performed By: #### C BC #### [facility] [address] [place] [address] Dr. Jackelyn Celestin Neutrophils/100 WBC (Bld) 78.8 % Critically high 43.0-75.0 [facility] Comment on above: Performed By: #### C BC #### [facility] [address] [place] [address] Dr. Jackelyn Celestin Platelet mean volume (Bld) [Entitic vol] 11.6 fL Normal 9.5-13.[address] [facility] Comment on above: Performed By: #### C BC #### [facility] [address] [place] [address] Dr. Jackelyn Celestin PLT 203 103/ul Normal 150-[address] [facility] Comment on above: Performed By: #### C BC #### [facility] [address] [place] [address] Dr. Jackelyn Celestin RBC 4.62 106/ul Normal 4.20-5.40 [facility] Comment on above: Performed By: #### C BC #### [facility] [address] [place] [address] Dr. Jackelyn Celestin WBC 11.2 103/ul Critically high 4.0-11.0 [facility] Comment on above: Performed By: #### C BC #### [facility] [address] [place] [address] Dr. Jackelyn Celestin CULTURE URINEon 02-12-2022 CULTURE URINE Culture Observations : NO GROWTH. Normal [facility] Comment on above: Performed By: #### U RCX #### [facility] [address] [place] [address] Dr. Jackelyn Celestin GLYCOHEMOGLOBIN A1Con 2021 ADA RECOMMENDATION SEE BELOW Normal [facility] Comment on above: Result Comment: ADA RECOMMENDED LIMIT 4.0 - 6.0 ADA THERAPEUTIC TARGET < 7.0 ACTION SUGGESTED > 7.0 Performed By: #### [id number] #### [facility] [address] [place] [address] Dr. Jackelyn Celestin Glucose [Mass/Vol] 94 mg/dL Normal [facility] Comment on above: Performed By: #### 4 [id number] #### [facility] [address] [place] [address] Dr. Jackelyn Celestin HbA1c (Bld) [Mass fraction] 4.9 % Normal 4.5-6.2 [facility] Comment on above: Performed By: #### 4 [id number] #### [facility] [address] [place] [address] Dr. Jackelyn Celestin TYPE AND SCREENon 02-12-2022 TYPE AND SCREEN Negative Normal [facility] Comment on above: Performed By: #### T NS #### [facility] [address] [place] [address] Dr. Jackelyn Celestin US PREG TVon 01-21-2022 [...] by: DONALD AGUILAR Date: 2022-01-21 16:41 Normal [facility] Coding Summary.on 12-12-2019 Coding Summary. CODING DATE: 020 FINAL [facility] STATUS: Home (Routine DC) PAYOR: Self [...] CphT Date Saved: 12/12/2019 10:59 am Normal [facility] Family Medicine Office/Clini c Noteon 11-21-2019 [...] day(s), # 20 tab(s), Refills(s) 0, Pharmacy: [facility], 159, cm, 11/21/19 19:13:00 EDT, Height/Length Dosing, 96, kg, 11/21/19 19:13:00 EDT, Weight Dosing Follow-up No qualifying data available Patient Education Body Mass Index, BMI DASH Diet MyPlate from [employer] Obesity Otitis Media, Adult Problem List/Past [...] cancer: Grandparent. Hypertension: Grandparent. Stroke: Grandparent. Normal [facility] Comment on above: Result Comment: Elec [...] Document Reviewed: 01/04/2006 ExitCare? Patient Information ?2013 [employer]. DASH Diet The DASH diet stands for [...] beef, chicken breast, turkey breast. All fish. [place], bake, or broil your meat. Nothing should [...] Document Reviewed: 03/15/2012 ExitCare? Patient Information ?2013 [employer]. [employer], [employer] The amount you need to eat [...] Document Reviewed: 06/16/2008 ExitCare? Patient Information ?2014 [employer]. Family Medicine Obesity Obesity is defined as [...] such as an underactive thyroid (hypothyroidism ), [place]'s syndrome, and polycystic ovarian syndrome. ? Certain [...] Document Reviewed: 05/02/2012 ExitCare? Patient Information ?2014 [employer]. Otitis Media, Adult A middle ear infection [...] the first few days. ? Only take gixm-tex-onnznah or prescription medicines for pain, discomfort, or [...] Document Reviewed: 10/31/2008 ExitCare? Patient Information ?2013 [employer]. Normal [facility] SARS-CoV-2, NAAon 11-20-2019 SARS CORONAVIRUS 2 RNA:PRTHR:PT:RESPIRATO RY:ORD:PROBE.AMP.TAR Not Detected Not Detected [facility] Comment on above: Result Comment: This test was developed and its performance characteristics determined by [employer]. This test has not been FDA cleared [...] in this assay. Performed at: [facility] [address] [facility] [place] [id number] MD Malaika Velez Performed By: #### S ARS-CoV-2, ALONDRA #### [facility] [address] [place] [address] Family Medicine Video Visit - Telehealthon 11-16-2019 [...] interactive video communications from my office using [employer] due to the restrictions of the COVID-19 pandemic. No physical exam was conducted other than those areas of the body visible to telecommunications with the patient located at [address] [phone], with no one else in attendance. If [...] cancer: Grandparent. Hypertension: Grandparent. Stroke: Grandparent. Normal [facility] Comment on above: Result Comment: Elec tronically Signed By: SEAN KIM, Abbey Hodges\.ynes\Date and Time Signed: 11/16/19 14:27 EDT URINE CULTUREon 07-10-2017 Urine culture, bacteria SPECIMEN DESCRIPTION URINE CLEAN CATCHUA DIPSTICK NITRITE NEGATIVE * Result Note: LEUKOCYTE NEGATIVE *CULTURE ESCHERICHIA COLI * Result Note: 50,000 C/C/ML * * Result Note: Testing performed at [facility], [place], [place] [address] *REPORT STATUS 07/10/2017 * Result Note: FINAL * O RGANISM ESCHERICHIA COLI * Result Note: ESCHERICHIA COLI *METHOD MICAMPICILLIN <=2 SUSCEPTIBLEAMPICILLIN/SULBA CTAM <=2 SUSCEPTIBLECEFTRIAXONE <=1 SUSCEPTIBLECEFAZOLIN <=4 SUSCEPTIBLEIMIPENEM <=0.25 SUSCEPTIBLEGENTAMICIN <=1 SUSCEPTIBLETRIMETH-SULFA <=20 SUSCEPTIBLEAMOXICILLIN/CLAV ULANIC A <=2 SUSCEPTIBLENITROFURANTOIN 32 SUSCEPTIBLEPIPERACILLIN/SADA OBACTAM <=4 SUSCEPTIBLELEVOFLOXACIN <=0.12 SUSCEPTIBLEESBL NEGATIVECEFTAZIDIME <=1 SUSCEPTIBLE Normal [facility] Comment on above: Performed By: #### A URNC ####Testing performed at [address] [id number] performed at [address] [address] BHCG,QUANTITATIVEon 07-08-19 18 CG,QUANTITATIVE 133.56 MIU/ML Normal [facility] Comment on above: Result Comment: [facility] INTERPRETIVE RANGES: NON FEMALE 0-6 MIU/MLMALE ADULT [...] A CBC, BHCG2 ####Testing performed at [address] [address] CBCon 07-07-2017 ABSOLUTE BAS 0.1 X10 Normal [facility] Comment on above: Performed By: #### A CBC, BHCG2 ####Testing performed at [address], [place] [address] ABSOLUTE EOS 0.20 X10 Normal [facility] Comment on above: Performed By: #### A CBC, BHCG2 ####Testing performed at [address] [place] [address] Basophils/100 WBC Auto (Bld) 0.6 % Normal 0.0-2.0 [facility] Comment on above: Performed By: #### A CBC, BHCG2 ####Testing performed at [address] [place] [address] DTYPE AUTO DIFF Normal [facility] Comment on above: Performed By: #### A CBC, BHCG2 ####Testing performed at [address] [place] [address] Eosinophils/100 leukocytes 2.0 % Normal 0.0-11.0 [facility] Comment on above: Performed By: #### A CBC, CG2 ####Testing performed at [address] [place] [address] Lymphocytes 2.00 X10 Normal [facility] Comment on above: Performed By: #### A CBC, CG2 ####Testing performed at [address] [place] [address] Lymphocytes/100 leukocytes 23.0 % Normal 20.0-55.0 [facility] Comment on above: Performed By: #### A CBC, CG2 ####Testing performed at [address] [place] [address] Monocytes 0.6 X10 Normal [facility] Comment on above: Performed By: #### A CBC, BHCG2 ####Testing performed at [address] [place] [address] Monocytes/100 leukocytes 7.1 % Normal 0.0-10.0 [facility] Comment on above: Performed By: #### A CBC, BHCG2 ####Testing performed at [address] [place] [address] Neutrophils 5.9 x10 Normal 1.0-7.0 [facility] Comment on above: Performed By: #### A CBC, BHCG2 ####Testing performed at [address] [address] Neutrophils/100 leukocytes 67.3 % Normal 37.0-75.0 [facility] Comment on above: Performed By: #### A CBC, BHCG2 ####Testing performed at [address] [address] Erythrocyte distribution width Auto Ratio (RBC) 12.1 % Normal 11.5-14.5 [facility] Comment on above: Performed By: #### A CBC, BHCG2 ####Testing performed at [address] [address] Erythrocytes (RBC) 4.72 /cmm Normal 4.0-5.4 [facility] Comment on above: Performed By: #### A CBC, BHCG2 ####Testing performed at [address] [address] Hematocrit (HCT) 43.2 % Normal 36.0-48.0 [facility] Comment on above: Performed By: #### A CBC, BHCG2 ####Testing performed at [address] [address] Hemoglobin mass conc (Bld) 15.1 g/dL Normal 12.0-16.0 [facility] Comment on above: Performed By: #### A CBC, BHCG2 ####Testing performed at [address] [address] MCH 32.0 pg Normal 26.0-35.0 [facility] Comment on above: Performed By: #### A CBC, BHCG2 ####Testing performed at [address] [address] MCHC mass conc (RBC) 35.0 g/dL Normal 27.0-37.0 [facility] Comment on above: Performed By: #### A CBC, BHCG2 ####Testing performed at [address] [address] MCV 91.5 fL Normal 80.0-100.0 [facility] Comment on above: Performed By: #### A CBC, BHCG2 ####Testing performed at [address] [place] [address] Platelet mean volume (PMV) 9.2 fL Normal 7.4-11.0 [facility] Comment on above: Performed By: #### A CBCALEXANDRACG2 ####Testing performed at [address] [address] Platelets 235 /cmm Normal 130.0-400. 0 [facility] Comment on above: Performed By: #### A CBCALEXANDRACG2 ####Testing performed at [address] [address] WBC (Leukocytes) 8.8 /cmm Normal 3.6-11.0 [facility] Comment on above: Performed By: #### A CBCDAVIDG2 ####Testing performed at [address] [address] ED NOTEon 07-07-2017 [facility] NOTES Normal [facility] ED PROVIDERon 07-07-2017 [facility] NOTES Normal [facility] URINE MACROSCOPICon 07-08-19 18 Bilirubin Ql (U) Negative Normal NEGATIVE [facility] Comment on above: Performed By: #### U MAC, UMIC ####Testing performed at [address] [address] URINE HEMOGLOBIN LARGE Abnormal NEGATIVE [facility] Comment on above: Performed By: #### U MAC, UMIC ####Testing performed at [address] [address] URINE KETONE Negative Normal NEGATIVE [facility] Comment on above: Performed By: #### U MAC, UMIC ####Testing performed at [address] [place] [address] URINE LEUKOTEST Negative Normal NEGATIVE [facility] Comment on above: Performed By: #### U MAC, UMIC ####Testing performed at [address] [address] URINE NITRATES Negative Normal NEGATIVE [facility] Comment on above: Performed By: #### U MAC, UMIC ####Testing performed at [address] [address] URINE SPEC GRAVITY 1.025 Normal 1.010-1.0 2 5 [facility] Comment on above: Performed By: #### U MAC, UMIC ####Testing performed at [address] [place] [address] URINE TOTAL PROTEIN Negative Normal NEGATIVE [facility] Comment on above: Performed By: #### U MAC, UMIC ####Testing performed at [address] [place] [address] Urine, clarity CLEAR Normal CLEAR [facility] Comment on above: Performed By: #### U MAC, UMIC ####Testing performed at [address] [place] [address] Urine, color YELLOW Normal YELLOW [facility] Comment on above: Performed By: #### U MAC, UMIC ####Testing performed at [address] [place] [address] Urine, glucose presence Negative Normal NEGATIVE [facility] Comment on above: Performed By: #### U MAC, UMIC ####Testing performed at [address] [place] [address] Urine, pH 7.0 [pH] Normal 5.0-7.0 [facility] Comment on above: Performed By: #### U MAC, UMIC ####Testing performed at [address] [place] [address] Urine, urobilinogen 1.0 mg/dl Normal 0.2-1.0 [facility] Comment on above: Performed By: #### U MAC, UMIC ####Testing performed at [address] [address] URINE MICROSCOPICon 07-08-19 18 CRYSTAL OCCASIONAL Abnormal NONE [facility] Comment on above: Result Comment: CHRIS PHOUS PHOSPHATES Performed By: #### U MAC, UMIC ####Testing performed at [address] [address] URINE COMMENT REFLEX CULTURE PER ESTABLISHED CRITERIA. Normal [facility] Comment on above: Performed By: #### U MAC, UMIC ####Testing performed at [address] [address] URINE WBC'S 1 TO 5 Normal NEGATIVE [facility] Comment on above: Performed By: #### U MAC, UMIC ####Testing performed at [address] [place] [address] Urine, bacteria in sediment 1+ Abnormal NEGATIVE [facility] Comment on above: Performed By: #### U MAC, UMIC ####Testing performed at [address] [place] [address] Urine, casts in sediment NONE Normal NONE [facility] Comment on above: Performed By: #### U MAC, UMIC ####Testing performed at [address] [place] [address] Urine, epithelial cells in sediment 1 TO 5 Normal [facility] Comment on above: Performed By: #### U MAC, UMIC ####Testing performed at [address] [place] [address] Urine, erythrocytes 1 TO 5 Normal NEGATIVE [facility] Comment on above: Performed By: #### U MAC, UMIC ####Testing performed at [address] [place] [address] Urine, mucus presence in sediment Negative Normal NEGATIVE [facility] Comment on above: Performed By: #### U MAC, UMIC ####Testing performed at [address] [place] [address] BhCG Quanton 07-05-2017 HCG.beta subunit Qn 238.0 mIU/m Normal [facility] Comment on above: Result Comment: FEMA LE (NON-) & MALE <3 BORDERLINE 3 - 5 SUGGEST REPEAT TESTING FEMALE () 1 D - 1 WK 5 - 50 1 - 2 WK 50 - 500 2 - 3 WK 100 - 5000 3 - 4 WK 500 - 87600 4 - 5 WK 1000 - 33006 5 - 6 WK 00131 - 947681 6 - 8 WK [address] - 675623 2 - 3 [place] [address] - 490697 Performed By: #### 2 [id number] ####JIMMIE OegCqoi2880 [place] [address] Auto Diffon 07-04-2017 Basophils Auto #/vol (Bld) 0.1 E3/mcL Normal 0.0-0.2 [facility] Comment on above: Order Comment: Order Added by Discern Expert. Performed By: #### 2 [id number] ####JIMMIE GzkIsnf[address]13 [place] [address] Basophils/100 WBC Auto (Bld) 0.6 % Normal 0.0-2.0 [facility] Comment on above: Order Comment: Order Added by Discern Expert. Performed By: #### 2 [id number] ####JIMMIE DanNjsKjhg4280 [place] [address] Eos Absolute 0.3 E3/mcL Normal 0.0-0.7 [facility] Comment on above: Order Comment: Order Added by Discern Expert. Performed By: #### 2 684574 ####JIMMIE DanJsrKgxg9711 [place] [address] Eosinophils/100 leukocytes 2.5 % Normal 0.0-11.0 [facility] Comment on above: Order Comment: Order Added by Discern Expert. Performed By: #### 2 846700 ####JIMMIE DanUhnTejp5316 [place] [address] Lymphocytes 2.3 E3/mcL Normal 1.2-3.4 [facility] Comment on above: Order Comment: Order Added by Discern Expert. Performed By: #### 2 862142 ####JIMMIE DanCzpDhfv1122 [place] [address] Lymphocytes/100 leukocytes 22.2 % Normal 20.0-55.0 [facility] Comment on above: Order Comment: Order Added by Discern Expert. Performed By: #### 2 634364 ####JIMMIE DanHsmJyhz0034 [place] [address] Trinity Absolute 0.8 E3/mcL High 0.0-0.7 [facility] Comment on above: Order Comment: Order Added by Discern Expert. Performed By: #### 2 339848 ####JIMMIE DanSnoEfnp0489 [place] [address] Monocytes/100 leukocytes 7.6 % Normal 0.0-10.0 [facility] Comment on above: Order Comment: Order Added by Discern Expert. Performed By: #### 2 958856 ####JIMMIE DanMqjYmgd5324 [place] [address] Neutro Absolute 6.9 E3/mcL High 1.4-6.5 [facility] Comment on above: Order Comment: Order Added by Discern Expert. Performed By: #### 2 803884 ####JIMMIE DanLwqUnxx4686 [place] [address] Neutro Auto 67.1 % Normal 37.0-75.0 [facility] Comment on above: Order Comment: Order Added by Discern Expert. Performed By: #### 2 [id number] ####JIMMIE Ozunao1025 [place] [address] BMPon 07-04-2017 BUN/Creatinine Ratio 21.7 ratio Normal 5.4-30.0 [facility] Comment on above: Performed By: #### 2 954383 ####JIMMIE DanEkqJfkh2080 [place] [address] Creatinine 0.6 mg/dL Normal 0.6-1.3 [facility] Comment on above: Performed By: #### 2 369006 ####JIMMIE [address]resham[address] [place] [address] Urea nitrogen 13 mg/dL Normal 7-18 [facility] Comment on above: Performed By: #### 2 560996 ####JIMMIE DanQroWmti4011 [place] [address] Calcium 8.4 mg/dL Normal 8.4-10.2 [facility] Comment on above: Performed By: #### 2 535080 ####JIMMIE DanJjvLozi7815 [place] [address] Chloride 100 mmol/L Normal 98-107 [facility] Comment on above: Performed By: #### 2 637137 ####JIMMIE DanMveUbkf3164 [place] [address] CO2 27.7 mmol/L Normal 24.0-30.0 [facility] Comment on above: Performed By: #### 2 452683 ####JIMMIE DanUipTncv5078 [place] [address] Glucose mass conc 98 mg/dL Normal 70-99 [facility] Comment on above: Performed By: #### 2 789946 ####JIMMIE DanPtwMret0342 [place] [address] Potassium molar conc 3.4 mmol/L Low 3.5-5.1 [facility] Comment on above: Performed By: #### 2 118085 ####JIMMIE DanJvvLyll2656 [place] [address] Sodium 133 mmol/L Low 136-145 [facility] Comment on above: Performed By: #### 2 436286 ####JIMMIE DanKvnGlqg7581 [place] [address] BhCG Quanton 07-04-2017 HCG.beta subunit Qn 190.8 mIU/m Normal [facility] Comment on above: Result Comment: FEMA LE (NON-) & MALE <3 BORDERLINE 3 - 5 SUGGEST REPEAT TESTING FEMALE () 1 D - 1 WK 5 - 50 1 - 2 WK 50 - 500 2 - 3 WK 100 - 5000 3 - 4 WK 500 - [address] 4 - 5 WK 1000 - [address]771 5 - 6 WK [address] - 692560 6 - 8 WK [address] - 106897 2 - 3 [place] [address] - 243328 Performed By: #### 2 814130 ####JIMMIE DanAdwEttz5376 [place] [address] CBC w/ Auto Diffon 8 Erythrocyte distribution width Auto Ratio (RBC) 11.6 % Normal 11.5-14.5 [facility] Comment on above: Performed By: #### 2 165637 ####JIMMIE HcwVpuv9500 [place] [address] Erythrocytes (RBC) 4.43 E6/mcL Normal 3.90-5.40 [facility] Comment on above: Performed By: #### 2 042146 ####JIMMIE TsbXrpr9910 [place] [address] Hematocrit (HCT) 40.1 % Normal 36.0-48.0 [facility] Comment on above: Performed By: #### 2 622956 ####JIMMIE UjmXwxy9006 [place] [address] Hemoglobin mass conc (Bld) 14.1 g/dL Normal 12.0-16.0 [facility] Comment on above: Performed By: #### 2 214723 ####JIMMIEJonathan OzunaKucTffi5234 [place] [address] MCH 31.7 pg High 27.0-31.0 [facility] Comment on above: Performed By: #### 2 315379 ####JIMMIE Ozunao1025 [place] [address] MCHC mass conc (RBC) 35.1 g/dL Normal 33.0-37.0 [facility] Comment on above: Performed By: #### 2 395139 ####JIMMIE Ozunao1025 [place] [address] MCV 90.4 fL Normal 78.0-100.0 [facility] Comment on above: Performed By: #### 2 861917 ####JIMMIE Ozunao1025 [place] [address] Platelet mean volume (PMV) 8.4 fL Normal 7.4-11.0 [facility] Comment on above: Performed By: #### 2 357731 ####JIMMIE [address]ao[address]25 [place] [address] Platelets 232 E3/mcL Normal 130-400 [facility] Comment on above: Performed By: #### 2 776522 ####JIMMIE [address]ao[address] [place] [address] WBC (Leukocytes) 10.3 E3/mcL Normal 3.6-11.0 [facility] Comment on above: Performed By: #### 2 589099 ####JIMMIE [address]ao[address] [place] [address] Hep Func Panelon 07-04-2017 Alanine aminotransferase (ALT) 15 Int._Unit/L Normal 10-40 [facility] Comment on above: Performed By: #### 2 201667 ####JIMMIE MjpZycb0856 [place] [address] Albumin 3.8 g/dL Normal 3.2-5.0 [facility] Comment on above: Performed By: #### 2 092634 ####JIMMIE IdyUpht0816 [place] [address] Albumin/Globulin Ratio 1.4 {ratio} Normal 1.1-1.9 [facility] Comment on above: Performed By: #### 2 548005 ####JIMMIE UuzHxvl1070 [place] [address] Alk Phos 36 Int._Unit/L Low 42-121 [facility] Comment on above: Performed By: #### 2 790918 ####JIMMIE Gresham[address] [place] [address] Aspartate aminotransferase (AST) 18 Int._Unit/L Normal 10-42 [facility] Comment on above: Performed By: #### 2 013324 ####JIMMIE [address] [place] [address] Bili Direct <.10 Normal .00-.20 [facility] Comment on above: Performed By: #### 2 349688 ####JIMMIE WtdDgvu2398 [place] [address] Bili Indirect >0.7 Normal [facility] Comment on above: Result Comment: No e stablished ranges available for the Indirect Biliruben. Performed By: #### 2 212043 ####JIMMIE ZtiFdmu4407 [place] [address] Bili Total 0.8 mg/dL Normal 0.2-1.0 [facility] Comment on above: Performed By: #### 2 392811 ####JIMMIE PkqLseh9003 [place] [address] Globulin 2.8 g/dL Normal 2.0-4.0 [facility] Comment on above: Performed By: #### 2 414371 ####JIMMIE ChjTvrf9080 [place] [address] Protein 6.6 g/dL Normal 6.4-8.3 [facility] Comment on above: Performed By: #### 2 287443 ####JIMMIE FtiRyfk1841 [place] [address] Lipase Levelon 07-04-2017 Lipase Lvl 19 U/L Normal 8-57 [facility] Comment on above: Performed By: #### 2 565269 ####JIMMIE FpqHtpf7519 [place] [address] U BhCG Qlton 07-04-2017 HCG.beta subunit Qn Positive Normal Neg [facility] Comment on above: Performed By: #### 2 491337 ####JIMMIE Urinalysis Manual Jvrakrjxqk6305 [place] [address] UA Completeon 07-04-2017 UA Blood 3+ Normal Negative [facility] Comment on above: Performed By: #### 8 [id number] ####JIMMIE Urinalysis Automated Wfcqvyhqgf9105 [place] [address] UA Bacteria Trace Abnormal None [facility] Comment on above: Performed By: #### 8 [id number] ####JIMMIE Urinalysis Automated Pbobzjagya7558 [place] [address] UA Clarity SltCloudy Abnormal Clear [facility] Comment on above: Performed By: #### 8 [id number] ####JIMMIE Urinalysis Automated Zdjgdotyae9220 [place] [address] UA Leuk Est Trace Normal Negative [facility] Comment on above: Performed By: #### 8 [id number] ####JIMMIE Urinalysis Automated [address] [place] [address] UA Mucous Occasional Abnormal Trace [facility] Comment on above: Performed By: #### 8 [id number] ####JIMMIE Urinalysis Automated [address] [place] [address] UA Nitrite Negative Normal Negative [facility] Comment on above: Performed By: #### 8 1137084 ####JIMMIE Urinalysis Automated Edtwjrodkp7894 [place] [address] UA pH 5.0 Normal 4.6-8.0 [facility] Comment on above: Performed By: #### 8 [id number] ####JIMMIE Urinalysis Automated [address] [place] [address] UA Protein Negative Normal Negative [facility] Comment on above: Performed By: #### 8 [id number] ####JIMMIE Urinalysis Automated Adfcxhpfne6695 [place] [address] UA Spec Grav 1.027 Normal 1.003-1.03 0 [facility] Comment on above: Performed By: #### 8 [id number] ####JIMMIE Urinalysis Automated [address] [place] [address] UA Squam Epithelial 0-5 Normal 0-5 [facility] Comment on above: Performed By: #### 8 [id number] ####JIMMIE Urinalysis Automated R[address]em[address]mb[address] [place] [address] UA Urobilinogen Negative Normal [facility] Comment on above: Performed By: #### 8 [id number] ####JIMMIE Urinalysis Automated Pynfjfdhxw2990 [place] [address] UA WBC 10-20 Abnormal 0-5 [facility] Comment on above: Performed By: #### 8 [id number] ####JIMMIE Urinalysis Automated Ntqwfzytei6622 [place] [address] Urine, color Yellow Normal Yellow [facility] Comment on above: Performed By: #### 8 [id number] ####JIMMIE Urinalysis Automated Lnpvhtjgbc7319 [place] [address] Urine, erythrocytes 5-10 Abnormal 0-3 [facility] Comment on above: Performed By: #### 8 [id number] ####JIMMIE Urinalysis Automated Dabtetyevu4165 [place] [address] Urine, glucose Negative Normal Negative [facility] Comment on above: Performed By: #### 8 [id number] ####JIMMIE Urinalysis Automated Oxftikgado8359 [place] [address] Urine, ketones presence Negative Normal Negative [facility] Comment on above: Performed By: #### 8 [id number] ####JIMMIE Urinalysis Automated Gkudgsfwfr3649 [place] [address] Urine, urobilinogen Negative Normal Negative [facility] Comment on above: Performed By: #### 8 [id number] ####JIMMIE Urinalysis Automated Zbgeeuuemd3253 [place] [address] eGFRon 07-04-2017 eGFR (non-black) mL/min/{1.73_m2} Normal [facility] Comment on above: Order Comment: Order added by Discern Expert. Performed By: #### 1 [id number] ####JIMMIE FtxVbmx7642 [place] [address] Vital Signs Date Time Vital Sign Value Performing Clinician Cong reynolds 04-20-2023 14:07-0500 Diastolic blood pressure 75 mm[Hg] Met[address] 04-20-2023 14:07-0500 Heart rate 93 /min [address] 04-20-2023 14:07-0500 Respiratory rate 18 /min [facility] 04-20-2023 14:07-0500 SaO2% (BldA) [Mass fraction] 99 % [facility] 04-20-2023 14:07-0500 Systolic blood pressure 127 mm[Hg] [facility] 04-20-2023 14:06-0500 Body height 160 cm [facility] 04-20-2023 14:06-0500 Body mass index (BMI) [Ratio] 37.22 kg/m2 [facility] [address] [place] [address] 04-20-2023 14:06-0500 Body temperature 97.7 [degF] [facility] [address] [place] [address] 04-20-2023 14:06-0500 Body weight 95.3 kg [facility] [address] [place] [address] 03-10-2023 23:05-0500 Diastolic blood pressure 80 mm[Hg] Supriya Aichholz Work Phone: [facility] 03-10-2023 23:05-0500 Heart rate 100 /min Supriya Aichholz Work Phone: [facility] 03-10-2023 23:05-0500 Respiratory rate 20 /min Supriya Aichholz Work Phone: [facility] 03-10-2023 23:05-0500 SaO2% (BldA) [Mass fraction] 98 % Supriya Aichholz Work Phone: [facility] 03-10-2023 23:05-0500 Systolic blood pressure 137 mm[Hg] Supriya Aichholz Work Phone: [facility] 03-10-2023 17:38-0500 Body temperature 97.9 [degF] Supriya Aichholz Work Phone: [facility] 03-10-2023 17:32-0500 Body height 160.02 cm Supriya Aichholz Work Phone: [facility] 03-10-2023 17:32-0500 Body weight 95 kg Supriya Cerrato Work Phone: [facility] Encounters Encounter Date Encounter Type Care Provider Facility Start: 10-11-2023 End: 10-11-2023 ambulatory XIN MORTEZA Not Available Start: 09-27-2023 End: 09-27-2023 ambulatory XIN MORTEZA Not Available Start: 09-13-2023 End: 09-13-2023 ambulatory XIN MORTEZA Not Available Start: 08-30-2023 End: 08-30-2023 ambulatory TSEFAN SHEMAR Not Available Start: 08-14-2023 End: 08-14-2023 ambulatory XIN MORTEZA Not Available Start: 07-04-2023 End: 07-04-2023 ambulatory STEFAN SHEMAR Not Available Start: 06-26-2023 End: 06-26-2023 ambulatory XIN MORTEZA Not Available Start: 06-05-2023 End: 06-05-2023 ambulatory XIN MORTEZA Not Available Start: 05-22-2023 End: 05-22-2023 [facility] GERSON AVALOS [facility] Start: 05-22-2023 End: 05-22-2023 Postop follow up visit related to original px Gerson Avalos MD Work Phone: [facility] Comment on above: Status post laparosc opic cholecystectomy (Primary Dx) Start: 05-18-2023 Clinisync Result Encounter Cor ey Morteza DO Work Phone: [facility] External Department Unsolicited Start: 05-18-2023 Clinisync Result Encounter Cor ey Morteza DO Work Phone: [facility] External Department Unsolicited Start: 05-16-2023 Chart abstracting Ixn Morteza DO Work Phone: [facility] Start: 05-08-2023 End: 05-08-2023 ambulatory XIN MORTEZA Not Available Start: 05-04-2023 End: 05-04-2023 Evaluation and management of inpatient SUKI ELI [facility] Start: 05-04-2023 End: 05-04-2023 Evaluation and management of inpatient [facility] Start: 04-20-2023 End: 04-20-2023 ambulatory [facility] Start: 04-20-2023 End: 04-20-2023 Patient encounter procedure [facility] Start: 03-31-2023 End: 03-31-2023 ambulatory XIN MORTEZA Not Available Start: 03-30-2023 End: 03-30-2023 ambulatory [facility] Start: 03-14-2023 End: 03-14-2023 ambulatory XIN MORTEZA Not Available Start: 03-10-2023 End: 03-11-2023 Emergency department patient visit Jacky Alarcon Facility:[facility] Start: 03-10-2023 End: 03-10-2023 Emergency department patient visit Supriya Saqib Work Phone: [facility] Work Phone: Start: 03-07-2023 [...] End: 02-13-[address] XIN PRO . Facility: Start: 02-11-[address] XIN PRO . Facili ty: Start: 01-21-2022 End: 01-22-[address] XIN PRO . Facility: Start: 07-07-2017 End: 07-07-2017 Emergency department patient visit [facility] Start: 07-05-2017 End: 07-06-2017 Ambulatory Dickson Arleth [place] Facility:[facility] Start: 07-04-2017 End: 07-04-2017 Emergency department patient visit [facility] Facility:[facility] Procedures Date Procedure Procedure Detail Performing [...] Td Vaccines (5 - Td or Tdap) [facility] Start: 05-04-2024 Adult BMI Screening Adult BMI Screen ing [facility] Start: 05-04-2024 Tobacco Screening Tobacco Screening [facility] Start: 04-20-2024 Adult BMI Screening Adult BMI Screen ing [facility] Start: 04-20-2024 Tobacco Screening Tobacco Screening [facility] Start: 06-05-2023 End: 06-05-2023 Patient encounter procedure 06/05/2023 9:50 AM EST Routine [facility] [address] [place] [phone] Xin Pro, DO [address] [place] [address] [facility] Start: 05-04-2023 End: 05-04-2023 Admission to same day surgery center 05/04/2023 7:30 AM EST - 05/04/2023 9:30 AM EST Surgery [facility] Surgery [address] [place] [address] [place] [address] Gerson Avalos MD [address] [place] [address] DAVINCI CHOLECYSTECTOMY [facility] Comment on above: DAVINCI CHOLECYSTECT ANDREA Start: 05-04-2023 End: 05-04-2023 DAVINCI CHOLECYSTECTOMY DAVINCI CHOLECYSTECTOMY CHOLELITHIASIS 05/04/2023 7:30 AM EST [facility] Start: 05-04-2023 End: 05-04-2023 DAVINCI CHOLECYSTECTOMY CHOLANGIOGRAM DAVINCI CHOLECYSTECTOMY CHOLANGIOGRAM CHOLELITHIASIS 05/04/2023 7:30 AM EST [facility] Start: 05-04-2023 Subsequent hospital visit by physician 05/04/2023 7:30 AM EST Hospital Encounter [facility] Surgery [address] [place] [address] [place] [phone] Gerson Avalos MD [address] [place] [address] [facility] Start: 03-10-2023 US Gallbladder [facility] Start: 03-10-2023 US scan of gallbladder US gall bladd er [facility] Start: 03-10-2023 Bacteria identified in Urine by Culture [facility] Start: 12-09-2022 Influenza vaccination Influenza Vacc ine [facility] Start: 2019 Screening for malign ant neoplasm of cervix Pap Smear [facility] Start: 2016 Adult BMI Follow Up Plan Adult BMI F ollow Up Plan [facility] Start: 2010 Depression Screening Depression [facility] Patient Education - Th e Second Month Nausea and Vomiting, Adult ED Gallstones ED [facility] Work Phone: Patient referral [facility] Work Phone: Payers Date Payer Category Payer Unknown [id number] 2022 Private Health Insurance [id number] 2022 Unknown [id number] 2017 Unknown 1998 Unknown [id number] 2.16.84 0.1.039789.3.579.2.593 1998 Unknown [id number] 2.16.84 0.1.028718.3.579.2.593 1998 Unknown [id number] 2.16.84 0.1.330483.3.579.2.593 1998 Unknown [id number] 2.16.84 0.1.898295.3.579.2.593 1998 Unknown [id number] 2.16.84 0.1.462245.3.579.2.593 1998 Unknown [id number] 2.16.84 0.1.419506.3.579.2.593 1998 Unknown [id number] 2.16.84 0.1.379010.3.579.2.593 1998 Unknown [id number] 2.16.84 0.1.198551.3.579.2.593 1998 Unknown [id number] 2.16.84 0.1.750254.3.579.2.593 1998 Unknown [id number] 2.16.84 0.1.680752.3.579.2.593 1998 Unknown [id number] 2.16.84 0.1.347921.3.579.2.593 1998 Unknown [id number] 2.16.84 0.1.689307.3.579.2.593 1998 Unknown [id number] 2.16.84 0.1.694224.3.579.2.593 1998 Unknown [id number] 2.16.8 40.1.207681.3.579.2.1286 1998 Unknown [id number] 2.16.8 40.1.675505.3.579.2.1286 1998 Unknown [id number] 2.16.8 40.1.770732.3.579.2.1286 1998 Unknown [id number] 2.16.8 40.1.960744.3.579.2.1286 1998 Unknown [id number] 2.16.84 0.1.911938.3.579.2.1286 1998 Unknown [id number] 2.16.84 0.1.136618.3.579.2.1286 1998 Unknown [id number] 2.16.84 0.1.758779.3.579.2.1259 1998 Unknown [id number] 2.16.84 0.1.127105.3.579.2.1259 1998 Unknown [id number] 2.16.84 0.1.508922.3.579.2.1259 1998 Unknown [id number] 2.16.84 0.1.291705.3.579.2.1259 1998 Unknown [id number] 2.16.84 0.1.362234.3.579.2.1259 1998 Unknown [id number] 2.16.84 0.1.800091.3.579.2.1259 1998 Unknown [id number] 2.16.84 0.1.120529.3.579.2.1259 1998 Unknown [id number] 2.16.84 0.1.045808.3.579.2.1259 1998 Unknown [id number] 2.16.84 0.1.381040.3.579.2.1259 1998 Unknown [id number] 2.16.840 .1.310091.3.579.2.1259 1998 Unknown [id number] 2.16.840 .1.713842.3.579.2.1259 1998 Unknown [id number] 2.16.840 .1.899430.3.579.2.1259 1959 Private Health Insurance [id number] 1959 Self-pay 1959 Unknown [id number] 1959 Unknown [id number] Unknown [id number] 2.16.8 40.1.527580.3.579.2.531 Social History Date Type Detail Facility Start: 03-10-2023 End: 03-30-2023 Tobacco smoking status NHIS Never smoked tobacco (finding) [facility] Start: 2000 Sex Assigned At Female [facility] Start: 03-30-2023 End: 05-16-2023 Tobacco use and exposure Smokeless tobacco non-user [facility] Start: 04-20-2023 End: 05-04-2023 Alcohol intake Ex-drinker (finding) [facility] Start: 05-21-2020 End: 04-20-2023 History of Social function [facility] Start: 05-21-2020 End: 04-20-2023 Tobacco use panel [facility] Housing Instability Unknown [facility] Start: 2000 Sex Assigned At Not on file P [facility] Start: 05-16-2023 Alcohol intake Lifetime non-d yrn [...] up: As needed documented in this encounter [facility] Instructions 04-20-2023 Patient Instructions Note Date & Type Note Facility 04-20-2023 Instructions Terri Estrada RN - 04/20/2023 1:45 PM EST Your surgery/procedure is scheduled at [facility] on 05/04/23 at 0730 Arrival Time 0530 [facility] Address: [address] [place] [address] Park in P1 Parking lot located on [facility]. Report to the Entrance B. Check in at the information desk the surgery. The waiting room located on the second floor. If you have any questions prior to surgery, please call Pre-Admission Clinic at [phone] between 7:30 am and 4:30 pm Monday through Monday. If you have questions the morning of surgery, please call the Pre-op Department at [phone]. PLEASE FOLLOW THESE INSTRUCTIONS OR YOUR SURGERY [...] would like to schedule therapy at a [facility] Re[facility] facility, please call [phone] ([phone]). Do not use lotions, creams, powders, perfume, make up, cologne or after-shaves day of surgery. Remove ALL jewelry including wedding rings, body piercings,hair extensions that contain metal, nail serbian, make-up, and contact lens. You may brush [...] RIGHTS AND RESPONSIBILITIES As a patient at [facility], you have the right to: Receive medical care and be informed of who is taking care of you Be treated with dignity and respect Have a family member/telemarketing representative of choice and your physician notified of your admission Receive information and actively participate in decisions about your care and treatment Refuse care, treatment and services Decide who may provide your support and speak for you Access synagogue and spiritual services Participate in ethical issues [...] of hospital charges and payment methods Patient/patient telemarketing representative responsibilities are to: Provide information about [...] in clean clothes. documented in this encounter [facility] Note 04-20-2023 Perioperative Nursing Note - Lexi Reddy RN - 04/20/2023 1:45 PM EST Note Date & Type Note Facility 04-20-2023 Miscellaneous Notes Formattin g of this note might be different from the original. Appt reminder call done-message left documented in this encounter [facility] Nurse Note 04-20-2023 Perioperative Nursing Note - Lexi Reddy RN - 04/20/2023 1:45 PM EST Note Date & Type Note Facility 04-20-2023 Nurse Note Appt reminder call done-message left [facility] Evaluation note Note Date & Type Note Facility Evaluation note No assessment information availa [facility] Work Phone: Evaluation note Note Date & Type Note Facility Evaluation note Diagnosis Status post laparoscopic cholecystectomy- Primary Other postprocedural status documented in this encounter [facility] Hospital Discharge instructions Note Date & Type Note Facility Hospital Discharge instructions Additional Instructions Return if symptoms are worse Continue your Zofran and Reglan at home and will add Phenergan for vomiting Follow-up with your surgeon [facility] Work Phone: Instructions Attachments Note Date & Type Note Facility Instructions The following attachments cannot be sent through Care Everywhere.Cholecystectomy Discharge Instructions (Ethiopian)documented in this encounter [facility] Summary Purpose Family History No Family [...] section and content) DATE CREATED AUTHOR 09/28/2017 [facility] DATE CREATED AUTHOR AUTHOR'S ORGANIZ ATION 09/29/2017 [facility] DATE CREATED AUTHOR AUTHOR'S ORGANIZ ATION 04/16/2020 [facility] DATE CREATED AUTHOR AUTHOR'S ORGANIZ ATION 08/24/2022 [facility] DATE CREATED AUTHOR AUTHOR'S ORGANIZ ATION 03/21/2023 [facility] DATE CREATED AUTHOR AUTHOR'S ORGANIZ ATION 05/24/2023 [facility] DATE CREATED AUTHOR AUTHOR'S ORGANIZ ATION 10/13/2023 [facility] dical Specialists EPIC Care Teams (unrecognized sec tion and content) Team Status: Active Member Role Status Dates Supriya Govea Brybrittatanvi Primary Care Provider Active Team Status: Inactive Member Role Status Dates Supriya Jeferson Cerrato Primary Care Provider Active Jacky Alarcon MD Emergency Provider Active Horticultural Agent Relationship Specialty Start Date End Date Supriya Cerrato, RAT POISONER-[facility] [address] [place] [phone] PCP - General Nurse Practitioner 03/30/23 Horticultural Agent Relationship Specialty Start Date End Date LienreillySupriya corbett Jeferson, RAT POISONER-[facility] [address] [place] [place] [phone] PCP - General Nurse Practitioner 03/30/23 Goals [...] BE BASED ON THE PRIMARY CLINICAL RECORDS. [facility] [employer] provides no warranty or guarantee of the accuracy or completeness of information in this document.
[2023-10-14 03:08] LABS: Bilirubin Urine NEGATIVE (NEGATIVE); Blood Urine NEGATIVE (NEGATIVE); Clarity Urine CLEAR (CLEAR); Color Urine LT. YELLOW (YELLOW); Glucose Urine UA NEGATIVE (NEGATIVE); Ketones Urine NEGATIVE (NEGATIVE); Leukocyte Esterase Urine SMALL (NEGATIVE); Nitrite Urine NEGATIVE (NEGATIVE); Protein Urine NEGATIVE (NEG/TRACE); Specific Gravity Urine 1.015 (1.005-1.025); Urine Microscopic Indicated YES; Urobilinogen Urine 0.2 EU/dL (0.2-1.0); pH Urine 6.5 (5.0-9.0)
[2023-10-14 03:13] LABS: Bacteria Urine NONE SEEN #/HPF (NONE SEEN); Crystals Seen? None Seen #/HPF (None Seen); Mucus Urine NONE SEEN (NONE SEEN); RBC Urine 0-2 #/HPF (0-2); Squamous Epithelial Cell Urine MODERATE #/LPF (NONE/RARE); WBC Urine 0-2 #/HPF (NONE SEEN)
[2023-10-14 03:14] LABS: Cast Seen? NONE SEEN #/LPF (NONE SEEN); Urine Culture Indicated YES
[2023-10-14 03:15] LABS: Amnisure NEGATIVE (NEGATIVE); Internal Control Within Normal Limits
[2023-10-14 03:16] LABS: Amphetamine Screen Urine NEGATIVE (NEGATIVE); Barbiturates Screen Urine NEGATIVE (NEGATIVE); Benzodiazepines Screen Urine NEGATIVE (NEGATIVE); Buprenorphine Screen Urine NEGATIVE (NEGATIVE); Cannabinoid Screen Urine NEGATIVE (NEGATIVE); Cocaine Screen Urine NEGATIVE (NEGATIVE); Methadone Screen Urine NEGATIVE (NEGATIVE); Methamphetamines Screen Urine NEGATIVE (NEGATIVE); Opiate Screen Urine NEGATIVE (NEGATIVE); Oxycodone Screen Urine NEGATIVE (NEGATIVE); Phencyclidine Screen Urine NEGATIVE (NEGATIVE); Tricyclic Antidepressant Urine NEGATIVE (NEGATIVE)
[2023-10-14 03:19] LABS: Hematocrit 32.7 % (36.0-48.0); Hemoglobin 10.7 g/dL (12.0-16.0); Mean Corpuscular HGB Conc 32.7 g/dL (29.9-35.2); Mean Corpuscular Hemoglobin 27.8 pg (26.7-34.0); Mean Corpuscular Volume 84.9 fL (81.0-99.0); Mean Platelet Volume 11.4 fL (9.5-13.5); Platelet Count 173 10^3/uL (150-450); Red Blood Count 3.85 10^6/uL (4.20-5.40); Red Cell Distribution Width 13.9 % (11.0-15.0); White Blood Count 10.1 10^3/uL (4.0-11.0)
[2023-10-14] MEDS: AMPICILLIN SODIUM 2,000 MG in 0.9 % SODIUM CHLORIDE 100 ML 200 MG IV (04:02)
[2023-10-14] MEDS: 0.9 % SODIUM CHLORIDE 1,000 ML 125 ML IV ×2 (04:03→16:21)
[2023-10-14] MEDS: OXYTOCIN/0.9 % SODIUM CHLORIDE 10 UNITS/500 ML PLAST..BAG 6 UNIT IV (06:15)
[2023-10-14] MEDS: AMPICILLIN SODIUM 1,000 MG in 0.9 % SODIUM CHLORIDE 50 ML 100 MG IV ×2 (08:17→12:35)
[2023-10-14] MEDS: ROPIVACAINE HCL/PF 400 MG/200 ML PREMIX 6 MG EPIDURAL (12:26)
[2023-10-14] MEDS: 0.9 % SODIUM CHLORIDE 1,000 ML 1000 ML IV (12:27)
[2023-10-14] MEDS: OXYTOCIN/0.9 % SODIUM CHLORIDE 20 UNITS/1,000 ML PLAST..BAG 125 UNIT IV (16:23)
--- NOTE | 2023-10-14 16:32 | PM.OBPRCVD ---
Procedure Intrapartal events: None Induction method: none Delivery augmentation: pitocin Delivery monitor: external FHT and external uterine Route of delivery: Episiotomy Description: none L&D Laceration Description: perineal - 1st degree Delivery repair: Vicryl Estimated blood loss (mL): 300 Anesthesia type: Spinal Disposition: PACU Delivery date: 10/14/23 Gender: male presentation: vertex Placental delivery description: Spontaneous cord description: 3 Vessels and Nuchal Cord
[2023-10-14] MEDS: BENZOCAINE/MENTHOL 85 GRAM SPRAY BOTTLE 1 APPLIC TOPICAL (17:31)
[2023-10-14] MEDS: IBUPROFEN 400 MG TABLET 800 MG PO (17:31)
[2023-10-15] MEDS: IBUPROFEN 400 MG TABLET 800 MG PO ×3 (00:57→17:31)
[2023-10-15 01:00] VITALS: BP 122/66; PULSE 93; TEMP 36.5
[2023-10-15 06:23] LABS: Basophils Percent Auto 0.3 % (0.2-2.0); Eosinophils Absolute Auto 0.2 10^3/uL (0.0-0.7); Eosinophils Percent Auto 1.9 % (0.9-7.0); Hematocrit 30.4 % (36.0-48.0); Hemoglobin 9.9 g/dL (12.0-16.0); Immature Granulocytes Abs Auto 0.15 10^3/uL (0.00-0.03); Immature Granulocytes Pct Auto 1.3 % (0.0-0.5); Lymphocytes Absolute Auto 1.9 10^3/uL (1.2-3.8); Lymphocytes Percent Auto 15.9 % (20.5-60.0); Mean Corpuscular HGB Conc 32.6 g/dL (29.9-35.2); Mean Corpuscular Hemoglobin 27.8 pg (26.7-34.0); Mean Corpuscular Volume 85.4 fL (81.0-99.0); Mean Platelet Volume 11.4 fL (9.5-13.5); Monocytes Absolute Auto 0.9 10^3/uL (0.3-0.8); Monocytes Percent Auto 7.5 % (1.7-12.0); Neutrophils Absolute Auto 8.8 10^3/uL (1.4-6.5); Neutrophils Percent Auto 73.1 % (43.0-75.0); Platelet Count 150 10^3/uL (150-450); Red Blood Count 3.56 10^6/uL (4.20-5.40); Red Cell Distribution Width 13.8 % (11.0-15.0)
[2023-10-15 08:46] VITALS: BP 123/71; PULSE 101
[2023-10-15] MEDS: DOCUSATE SODIUM 100 MG CAPSULE PO ×2 (08:51→20:30)
[2023-10-15 08:58] VITALS: TEMP 36.7
--- NOTE | 2023-10-15 11:07 | P.OBPN_ITS ---
OB - PN: Subj Subjective Patient comments: no complaints and pain well controlled [place] status: doing well Exam Constitutional Vital Signs, click to edit/add: Last Vital Signs Temp 98.0 F 10/15/23 08:58 Pulse 101 H 10/15/23 08:46 Resp 16 10/15/23 08:58 BP 123/71 10/15/23 08:46 O2 Del Method Room Air 10/15/23 01:00 Documenting provider has reviewed patient's vital signs: yes Common normals: no apparent distress Respiratory Common normals: normal respiratory effort and clear to auscultation bilaterally Cardio Common normals: regular rate and regular rhythm GI Common normals: Normal to inspection, nondistended, normoactive bowel sounds present Extremity Common normals: normal to inspection and no calf tenderness Results Labs Labs: Short CBC 10/15/23 Range/Units 06:13 WBC 12.0 H (4.0-11.0) 10^3/uL Hgb 9.9 L (12.0-16.0) g/dL Hct 30.4 L (36.0-48.0) % Plt Count 150 (150-450) 10^3/uL OB - PN: A/P Plan - Vaginal Delivery day: 1 Plan: routine care, discharge home and follow up 6 weeks Time Spent with Patient Time: Total time spent is greater than 50% in coordination of care (as documented) at patient's floor/unit and/or counseling patient: Total time spent with greater than 50% in coordination of care (as documented) at patient's floor/unit and/or counseling patient: less than 15 minutes
[2023-10-15 15:45] VITALS: BP 113/59; PULSE 88
[2023-10-15 17:46] VITALS: TEMP 36.8
[2023-10-16] MEDS: IBUPROFEN 400 MG TABLET 800 MG PO ×2 (00:39→08:36)
[2023-10-16 00:44] VITALS: BP 107/64; PULSE 81
[2023-10-16 00:45] VITALS: TEMP 36.2
--- NOTE | 2023-10-16 08:27 | P.OBPN_ITS ---
OB - PN: Subj Subjective Patient comments: no complaints and pain well controlled [place] status: doing well Exam Constitutional Vital Signs, click to edit/add: Last Vital Signs Temp 97.2 F L 10/16/23 00:45 Pulse 81 10/16/23 00:44 Resp 16 10/15/23 17:46 BP 107/64 10/16/23 00:44 O2 Del Method Room Air 10/16/23 00:42 Documenting provider has reviewed patient's vital signs: yes Common normals: no apparent distress Respiratory Common normals: normal respiratory effort and clear to auscultation bilaterally Cardio Common normals: regular rate and regular rhythm GI Common normals: Normal to inspection, nondistended, normoactive bowel sounds present Extremity Common normals: normal to inspection and no calf tenderness OB - PN: A/P Plan - Vaginal Delivery day: 2 Plan: routine care, discharge home and follow up 6 weeks Time Spent with Patient Time: Total time spent is greater than 50% in coordination of care (as documented) at patient's floor/unit and/or counseling patient: Total time spent with greater than 50% in coordination of care (as documented) at patient's floor/unit and/or counseling patient: less than 15 minutes
[2023-10-16] MEDS: DOCUSATE SODIUM 100 MG CAPSULE PO (08:36)
[2023-10-16 08:39] VITALS: BP 120/69; PULSE 93
== END 2023-10-16 14:10 | disposition home or self-care (01) | DRG 807 ==
PROVIDERS: Admitting Provider Obstetrics & Gynecology; Visit Provider Obstetrics & Gynecology
DX: O69.81X0 Labor and delivery complicated by cord around neck, without compression, not applicable or unspecified (principal); Z37.0 Single live birth; O70.0 First degree perineal laceration during delivery; Z90.49 Acquired absence of other specified parts of digestive tract; Z3A.37 37 weeks gestation of pregnancy; Z87.440 Personal history of urinary (tract) infections
CPT/HCPCS: 36415; 59050; 59410; 80307; 81001; 84112; 85025; 85027; 86850; 86900; 86901; 87086; 96365; 96366; 96367; 96376; J0290; J2795

== ENCOUNTER 2024-10-22 15:02 | Outpatient (OUT) | payer OTHER, SELFPAY ==
--- OUTSIDE RECORDS SUMMARY | 2024-10-22 13:00 | XMS_ITS | Encounter Summary ---
Author Organization [facility] Address [address] [facility] [place] [address] Care Team Providers Care Validation Consultant Name Role Phone Unavailable Primary Care Provider Unavailabl e Reason for Visit * Reason Comments Well Women Visit Encounter Details Date Type Department Care Team (Late st Contact Info) Description 10/22/2024 1:00 PM EDT Office Visit [facility] [address] [place] [address] Fletcher Pro, DO [address] [place], [facility] Well woman exam with routine gynecological exam; UTI symptoms; PCOS (polycystic ovarian syndrome); Menorrhagia with regular cycle Social History Tobacco Use Types Packs/Day Years Used Date Smoking Tobacco: Never Smokeless Tobacco: Never Alcohol Use Standard Drinks/Week Comments Never 0 (1 standard drink = 0.6 oz pur e alcohol) Comments Unknown Sex and Gender Information Value Date Recorded Sex Assigned at Not on file Legal Sex Female 11:47 PM EDT Gender Identity Not on file Sexual Orientation Not on file documented as of this encounter Last Filed Vital Signs Vital Sign Reading Time Taken Comments Blood Pressure 120/82 10/22/2024 1:20 PM EDT Pulse - - Temperature - - Respiratory Rate - - Oxygen Saturation - - Inhaled Oxygen Concentration - - Weight 112 kg (246 lb 6.4 oz) 10/22/2024 1:20 PM EDT Height - - Body Mass Index 43.65 03/07/2023 1:20 PM EST documented in this encounter Plan of Treatment Upcoming Encounters Date Type Department Care Team (Late st Contact Info) Description 11/06/2024 9:00 AM EDT Ancillary Procedure [facility] [address] [place] [phone] 11/19/2024 9:10 AM EDT Office Visit [facility] [address] [place] [phone] Fletcher Pro, DO [address] [place] [address] Scheduled Orders Name Type Priority Associated Diagnoses Orde r Schedule Pap Smear Pathology and Cytology Routine Well woman exam with routine gynecological exam Ordered: 10/22/2024 hCG, quantitative, Lab Routine PCOS (polycystic ovarian syndrome) Menorrhagia with regular cycle Ordered: 10/22/2024 TSH Lab Routine PCOS (polycystic ovarian syndrome) Menorrhagia with regular cycle Ordered: 10/22/2024 T4, free Lab Routine PCOS (polycystic ovarian syndrome) Menorrhagia with regular cycle Ordered: 10/22/2024 CBC and differential Lab Routine PCOS (polycystic ovarian syndrome) Menorrhagia with regular cycle Ordered: 10/22/2024 Follicle stimulating hormone Lab Routine PCOS (polycystic ovarian syndrome) Menorrhagia with regular cycle Ordered: 10/22/2024 Luteinizing hormone Lab Routine PCOS (polycystic ovarian syndrome) Menorrhagia with regular cycle Ordered: 10/22/2024 Hemoglobin A1c Lab Routine Menorrhagia with regular cycle Ordered: 10/22/2024 DHEA-sulfate Lab Routine PCOS (polycystic ovarian syndrome) Menorrhagia with regular cycle Ordered: 10/22/2024 DHEA Lab Routine PCOS (polycystic ovarian syndrome) Menorrhagia with regular cycle Expected: 10/22/2024 (Approximate), Expires: 10/22/2025 US Pelvis w/ TV Imaging Routine PCOS (polycystic ovarian syndrome) Menorrhagia with regular cycle Expected: 10/22/2024, Expires: 10/22/2025 documented as of this encounter Procedures Procedure Name Priority Date/Time Associated Diagnosis Comments POCT URINALYSIS DIPSTICK Routine 10/22/2024 1:34 PM EDT UTI symptoms documented in this encounter Results * POCT urinalysis dipstick manually resulted (10/22/2024 1:34 PM EDT) Color, UA Yellow Clarity, UA Clear Glucose, UA Negative Negative - 2000(110) ++++ mg/dL Bilirubin, UA Negative Negative - 4(70) +++ mg/dL Ketones, UA Negative Negative - 160(16) ++++ mg/dL Spec Grav, UA 1.010 1 - 1.03 Blood, UA Negative Negative - 50 Shai/mcL pH, UA 6.0 5 - 9 Protein, UA Negative Negative - 2000(20) ++++ mg/dL Urobilinogen, UA 1.0 0.2 - 12 mg/dL Leukocytes, UA Negative Negative - 500+++ Uche/mcL Nitrite, UA Negative Negative - Positive Urine 10/22/2024 1:34 PM EDT Fletcher Pro DO POINT OF CARE TEST ENTER/EDIT OR DERABLES Final Result documented in this encounter Visit Diagnoses Diagnosis Well woman exam with routine gynecological exam Routine gynecological examination UTI symptoms PCOS (polycystic ovarian syndrome) Polycystic ovaries Menorrhagia with regular cycle documented in this encounter
--- OUTSIDE RECORDS SUMMARY | 2024-10-22 15:09 | XMS_ITS | Clinical Summary ---
Author Organization [facility] Address [address] [place] [address] Phone Care Team Providers Care Retention Specialist Name Role Phone Unavailable Primary Care Provider Unavailabl e Social History Tobacco Use Types Packs/Day Years Used Date Smoking Tobacco: Never Assessed Comments Unknown Sex and Gender Information Value Date Recorded Sex Assigned at Not on file Legal Sex Female 11:39 AM EST Gender Identity Not on file Sexual Orientation Not on file Plan of Treatment Not on file
--- OUTSIDE RECORDS SUMMARY | 2024-10-22 15:09 | XMS_ITS | Encounter Summary ---
Author Organization [facility] Address [address] [facility] [place] [address] Care Team Providers Care Network Control Operator Name Role Phone Unavailable Primary Care Provider Unavailabl e Encounter Details Date Type Department Care Team (Late Contact Info) Description 06/19/2023 Clinisync Result Encounter [facility] External Department Unsolicited Xin Pro DO [address] [place], [place] [id number] Social History Tobacco Use Types Packs/Day Years Used Date Smoking Tobacco: Never Smokeless Tobacco: Never Alcohol Use Standard Drinks/Week Comments Never 0 (1 standard drink = 0.6 oz pur e alcohol) Comments Yes Sex and Gender Information Value Date Recorded Sex Assigned at Not on file Legal Sex Female 11:47 PM EDT Gender Identity Not on file Sexual Orientation Not on file documented as of this encounter Plan of Treatment Upcoming Encounters Date Type Department Care Team (Late Contact Info) Description 11/06/2024 9:00 AM EDT Ancillary Procedure [facility] [address] [place] [phone] 11/19/2024 9:10 AM EDT Office Visit [facility] [address] [place] [phone] Xin Pro DO [address] [place] [address] documented as of this encounter Procedures Procedure Name Priority Date/Time Associated Diagnosis Comments US OB ANATOMY 06/19/2023 3:19 PM EDT documented in this encounter Results * US OB ANATOMY (06/19/2023 3:19 PM EDT) Anatomical Region Laterality Modality Other 06/19/2023 3:19 PM EDT Narrative 06/19/2023 3:21 [place] [address] Ultrasound Report Signed Patient: EDISON POST MR#: [id number] : 2000 Acct:[id number] Age/Sex: 23 / F ADM Date: 06/19/23 Loc: [facility] Attending Dr: Xin Pro D.O. Ordering Physician: Xin Pro D.O. Date of Service: 06/19/23 Procedure(s): US OB anatomy Accession Number(s): [id number] cc: Xin Pro D.O.; Physician,Non-Staff M.DSheila [place] [address] Patient Name: EDISON POST MRN: [id number] date: 2000 Sex: F Assigned Patient Location: [facility] Current Patient Location: [facility] Accession/Order Number: [id number] Exam Date: 06/19/2023 13:15 Report Date: 06/19/2023 15:19 At the request of: XIN PRO Procedure: US OB anatomy EXAMINATION: US OB anatomy, US OB cervical length HISTORY: anatomic survey Z36.89 COMPARISON: No relevant comparison available. TECHNIQUE: Transabdominal sonographic examination was performed for obstetrical and evaluation. FINDINGS: Number: 1 Heart Rate: Not recorded Amniotic Fluid Volume: Subjectively low, YO 10.3 cm Placental Location: Anterior fundal, the placental edge is 4.8 cm from the internal os. Grade 0 position: Breech presentation, transverse lie Cervix Length: 4.5 cm , closed Normal anatomy: Lateral ventricles, cerebellum, posterior fossa, orbits, four-chamber heart, RVOT, LVOT, diaphragm, stomach, kidneys, abdominal portions, bladder, umbilical arteries, spine, extremities Nonvisualization of anatomy: nose, lips, three-vessel cord BIOMETRY: BPD: 4.6 cm 19 weeks 6 days , 42% HC: 18.2 cm 20 weeks 4 days, 71% AC: 16.4 cm 21 weeks 3 days, 86% FL: 3.6 cm 21 weeks 2 days , 82% EFW:406.8 grams; 14 oz, 97% FL/AC: 21.7 FL/BPD: 77.7 HC/AC: 1.1 GESTATIONAL AGE: Age by EDC: 20 weeks 0 days LILIAN by EDC: 11/06/23 Age by current US: 20 weeks 6 days LILIAN by current US: 10/31/23 US/US OB anatomy IMPRESSION: Nonvisualization of the nose, lips, three-vessel cord Borderline low amniotic fluid volume *Reference: [facility] Practice Guideline for the performance of Obstetric Ultrasound Examinations, January 08, 2007. Electronically authenticated by: DONALD AGUILAR Date: 06/19/2023 15:19 Dictated By: Donald Aguilar M.D. Signed By: 06/19/23 1521 DD/ 1519 TD/TT: Wet Process Assistant Head Miller: Procedure Note Radiology, Radiologist, MD - 06/19/2023 [place] [address] Ultrasound Report Signed Patient: EDISON POST LMR#: [id number] : 2000Acct:[id number] Age/Sex: 23 / FADM Date: 06/19/23 Loc: [facility] Attending Dr: Xin Pro D.O. Ordering Physician: Xin Pro D.O. Date of Service: 06/19/23 Procedure(s): US OB anatomy Accession Number(s): [id number] cc: Xin Pro D.O.; Physician,Non-Staff [place]io [place] [id number] Patient Name: EDISON POST MRN: [facility]:[id number] date: 2000 Sex: F Assigned Patient Location: [facility] Current Patient Location: [facility] Accession/Order Number: [id number] Exam Date: 06/19/2023 13:15 Report Date: 06/19/2023 15:19 At the request of: XIN PRO Procedure: US OB anatomy EXAMINATION: US OB anatomy, US OB cervical length HISTORY: anatomic survey Z36.89 COMPARISON: No relevant comparison available. TECHNIQUE: Transabdominal sonographic examination was performed for obstetrical and evaluation. FINDINGS: Number: 1 Heart Rate: Not recorded Amniotic Fluid Volume: Subjectively low, YO 10.3 cm Placental Location: Anterior fundal, the placental edge is 4.8 cm from the internal os. Grade 0 position: Breech presentation, transverse lie Cervix Length: 4.5 cm , closed Normal anatomy: Lateral ventricles, cerebellum, posterior fossa, orbits, four-chamber heart, RVOT, LVOT, diaphragm, stomach, kidneys, abdominal portions, bladder, umbilical arteries, spine, extremities Nonvisualization of anatomy: nose, lips, three-vessel cord BIOMETRY: BPD: 4.6 cm 19 weeks 6 days , 42% HC: 18.2 cm 20 weeks 4 days, 71% AC: 16.4 cm 21 weeks 3 days, 86% FL: 3.6 cm 21 weeks 2 days , 82% EFW:406.8 grams; 14 oz, 97% FL/AC: 21.7 FL/BPD: 77.7 HC/AC: 1.1 GESTATIONAL AGE: Age by EDC: 20 weeks 0 days LILIAN by EDC: 11/06/23 Age by current US: 20 weeks 6 days LILIAN by current US: 10/31/23 US/US OB anatomy IMPRESSION: Nonvisualization of the nose, lips, three-vessel cord Borderline low amniotic fluid volume *Reference: [facility] Practice Guideline for the performance of Obstetric Ultrasound Examinations, January 08, 2007. Electronically authenticated by: DONALD AGUILAR Date: 06/19/2023 15:19 Dictated By: Donald Aguilar M.D. Signed By:06/19/23 1521 DD/ 1519 TD/TT: Wet Process Assistant Head Miller: us Xin Pro DO [facility] Final Result documented in this encounter Visit Diagnoses Not on filedocumented in this encounter
--- OUTSIDE RECORDS SUMMARY | 2024-10-22 15:09 | XMS_ITS | Clinical Summary ---
Author Organization [employer] Address [id number] [address] [place] [address] Care Team Providers Care [employer] Social Worker Name Role Phone Saqib Supriya Govea APRN-CLINICAL NURSE REVIEWER Primary Care Provider Allergies No known active allergies Medications PNV 119-iron fum-folic acid ( 19) 29 mg iron- 1 mg tabletIndication s: Take 1 mg by mouth in the morning. Indications : . Active Active Problems Comments Yes No known active problems Family History Medical History Relation Name Comments No Known Problems Father Breast cancer Maternal Grandmother No Known Problems Mother Anesthesia problems Other great gr andmother -prolong emergence Lung cancer Paternal Grandmother Thyroid cancer Paternal Grandmother Relation Name Status Comments Father Alive Maternal Grandmother Alive Mother Alive Other Paternal Grandmother Social History Tobacco Use Types Packs/Day Years Used Date Smoking Tobacco: Never Smokeless Tobacco: Never Tobacco Cessation:Counseling Given: Not Answered Alcohol Use Standard Drinks/Week Comments Not Currently 0 (1 standard drink = 0.6 oz pur e alcohol) Childcare Answer Date Recorded Childcare Unknown 09/23/2019 Employment Answer Date Recorded Employment Unknown 09/23/2019 Hunger Screening Answer Date Recorded Within the past 12 months we worried whether our food would run out before we got money to buy more. Never True 04/20/2023 Within the past 12 months th e food we bought just didn't last and we didn't have money to get more. Never True 04/20/2023 Purpose - Life Answer Date Recorded Purpose and direction in life Unknown Comments Yes Sex and Gender Information Value Date Recorded Sex Assigned at Not on file Legal Sex Female 10:12 AM EDT Gender Identity Not on file Sexual Orientation Not on file Last Filed Vital Signs Vital Sign Reading Time Taken Comments Blood Pressure 158/90 05/04/2023 2:00 PM EST Pulse 108 05/04/2023 2:00 PM EST Temperature 36.5 C (97.7 F) 05/04/2023 2:00 PM EST Respiratory Rate 19 05/04/2023 2:00 PM EST Oxygen Saturation 99% 05/04/2023 2:00 PM EST Inhaled Oxygen Concentration - - Weight 93 kg (205 lb 0.4 oz) 05/04/2023 6:18 AM EST Height 160 cm (5' 3 ) 05/04/2023 6:18 AM EST Body Mass Index 36.32 05/04/2023 6:18 AM EST Plan of Treatment Health Maintenance Due Date Last Done Comments Depression Screening 2010 Pap Smear 2019 Adult BMI Screening 05/04/2024 05/04/2023 Tobacco Screening 05/04/2024 05/04/2023 Influenza Vaccine 12/09/2024 DTaP,Tdap and Td Vaccines (5 - Td or Tdap) 10/11/2025 10/12/2015, 10/11/2005, 04/13/2005, Additional history exists Medical Devices Not on file Insurance COMMERCIAL Care Teams Elementary [employer] Social Worker Relationship Specialty Start Date End Date Supriya Cerrato, LONG FILLER CIGAR ROLLER MACHINE-CLINICAL NURSE REVIEWER PCP - General Nurse Practitioner 03/30/23
--- OUTSIDE RECORDS SUMMARY | 2024-10-22 15:10 | XMS_ITS | Encounter Summary ---
Author Organization [facility] Address [address] [place] [address] Care Team Providers Care Cross Tie Turner Name Role Phone Unavailable Primary Care Provider Unavailabl e Encounter Details Date Type Department Care Team ([facility] Contact Info) Description 10/22/2024 Bamboo flowsheet [facility] [address] [place] [address] Fletcher Pro [facility] [place], [facility] Social History Tobacco Use Types Packs/Day Years [...] 11/06/2024 9:00 AM EDT Ancillary Procedure [facility] [address] [place] [address] 11/19/2024 9:10 AM EDT Office Visit [facility] [place] [address] Fletcher Pro DO [facility] [place] [address] documented as of this encounter Visit Diagnoses Not on filedocumented in this encounter
--- OUTSIDE RECORDS SUMMARY | 2024-10-22 15:10 | XMS_ITS | Encounter Summary ---
Author Organization [facility] Address [address] [facility] [place] [address] Care Team Providers Care Road Conductor Name Role Phone Unavailable Primary Care Provider Unavailabl e Encounter Details Date Type Department Care Team (Late Contact Info) Description 07/10/2023 Clinisync Result Encounter [facility] External Department Unsolicited Xin Pro DO [address] [place], [place] [id number] Social History Tobacco Use Types Packs/Day Years [...] Procedure [facility] [address] [place] [phone] 11/19/2024 9:10 AM EDT Office Visit [facility] [address] [place] [phone] Xin Pro DO [address] [place] [address] documented as of this encounter Procedures Procedure Name Priority Date/Time Associated Diagnosis Comments US AMNIOTIC FLUID VOLUME 07/10/2023 9:57 AM EDT documented in this encounter Results * US AMNIOTIC FLUID VOLUME (07/10/2023 9:57 AM EDT) Anatomical Region Laterality Modality Radiographic Angelia ging 07/10/2023 9:57 AM EDT Narrative 07/10/2023 9:59 [place] [address] Ultrasound Report Signed Patient: EDISON POST MR#: [id number] : 2000 Acct:[id number] Age/Sex: 23 / F ADM Date: 07/10/23 Loc: [facility] Attending Dr: Xin Pro D.O. Ordering Physician: Xin Pro D.O. Date of Service: 07/10/23 Procedure(s): US OB amniotic fluid vol Accession Number(s): [id number] cc: Xin Pro D.O.; Physician,Non-Staff [place] [address] Patient Name: EDISON POST MRN: [id number] date: 2000 Sex: F Assigned Patient Location: [facility] Current Patient Location: [facility] Accession/Order Number: [id number] Exam Date: 07/10/2023 09:06 Report Date: 07/10/2023 09:57 At the request of: XIN PRO Procedure: US OB amniotic fluid vol EXAM: US OB incomplete anatomy, US OB amniotic fluid vol HISTORY: Follow-up ultrasound of anatomy Z36.2 COMPARISON: Ultrasound OB anatomy 06/19/2023 TECHNIQUE: Transabdominal ultrasound FINDINGS: Presentation: Breech Heart rate: 136 bpm Amniotic fluid: 11.5 cm (5th percentile is 9.8 cm); largest pocket is 4.0 cm. Anatomy: Adequate visualization of three-vessel cord and hard palate. GA: 23 weeks 0 days LILIAN: 11/06/2023 US/US OB amniotic fluid vol IMPRESSION: 1. Single live intrauterine . 2. Normal amniotic fluid volume, but on the lower end. 3. Adequate visualization with no appreciable abnormality of the three-vessel cord and hard palate. Electronically authenticated by: TRISTAN HART Date: 07/10/2023 09:57 Dictated By: Tristan Hart M.D. Signed By: 07/10/23 0959 DD/ TD/TT: Captain Fishing Vessel: Procedure Note Radiology, Radiologist, MD - 07/13/2023 [place] [address] Ultrasound Report Signed Patient: EDISON POST LMR#: [id number] : 2000Acct:[id number] Age/Sex: 23 / FADM Date: 07/10/23 Loc: [facility] Attending Dr: Xin Pro D.O. Ordering Physician: Xin Pro D.O. Date of Service: 07/10/23 Procedure(s): US OB amniotic fluid vol Accession Number(s): [id number] cc: Xin Pro D.O.; Physician,Non-Staff Julio The [place] [id number] Patient Name: EDISON POST MRN: [id number] date: 2000 Sex: F Assigned Patient Location: [facility] Current Patient Location: [facility] Accession/Order Number: [id number] Exam Date: 07/10/2023 09:06 Report Date: 07/10/2023 09:57 At the request of: XIN PRO Procedure: US OB amniotic fluid vol EXAM: US OB incomplete anatomy, US OB amniotic fluid vol HISTORY: Follow-up ultrasound of anatomy Z36.2 COMPARISON: Ultrasound OB anatomy 06/19/2023 TECHNIQUE: Transabdominal ultrasound FINDINGS: Presentation: Breech Heart rate: 136 bpm Amniotic fluid: 11.5 cm (5th percentile is 9.8 cm); largest pocket is 4.0cm. Anatomy: Adequate visualization of three-vessel cord and hard palate. GA: 23 weeks 0 days LILIAN: 11/06/2023 US/US OB amniotic fluid vol IMPRESSION: 1. Single live intrauterine . 2. Normal amniotic fluid volume, but on the lower end. 3. Adequate visualization with no appreciable abnormality of thethree-vessel cord and hard palate. Electronically authenticated by: TRISTAN HART Date: 07/10/2023 09:57 Dictated By: Tristan Hart M.D. Signed By:07/10/23 0959 DD/ TD/TT: Captain Fishing Vessel: us Xin Pro DO IMG XR PROCEDURES Final Result documented in this encounter Visit Diagnoses Not on filedocumented in this encounter
--- OUTSIDE RECORDS SUMMARY | 2024-10-22 15:10 | XMS_ITS | Encounter Summary ---
Author Organization [facility] Address [address] [place] [address] Care Team Providers Care Accounts Receivable Manager Name Role Phone Unavailable Primary Care Provider Unavailabl e Encounter Details Date Type Department Care Team (Late Contact Info) Description 10/17/2023 Abstract [facility] OB [address] [place] [address] Fletcher Pro DO [facility] [place], [facility]11 Social History Tobacco Use Types Packs/Day [...] 11/06/2024 9:00 AM EDT Ancillary Procedure [facility] [place] [place] [address] [place] [address] 11/19/2024 9:10 AM EDT Office Visit [facility] [place] [place] [address] Fletcher Pro DO [address] [place], [place] [id number] documented as of this encounter Visit Diagnoses Not on filedocumented in this encounter
--- OUTSIDE RECORDS SUMMARY | 2024-10-22 15:10 | XMS_ITS | Encounter Summary ---
Author Organization [employer] Address [id number] [address] [place] [address] Care Team Providers Care Truck Driver Name Role Phone Supriya Cerrato APRN-PRINCIPAL SYSTEMS ARCHITECT Primary Care Provider Encounter Details Date Type Department Care Team (Late st Contact Info) Description 03/31/2023 Telephone [facility] Physicians General Surgery-Trauma [address] [place] [phone] Myah Stover [place] Social History Tobacco Use Types Packs/Day Years Used Date Smoking Tobacco: Never Smokeless Tobacco: Never Alcohol Use Standard Drinks/Week Comments Not Currently 0 (1 standard drink = 0.6 oz pur e alcohol) Childcare Answer Date Recorded Childcare Unknown 09/23/2019 Employment Answer Date Recorded Employment Unknown 09/23/2019 Purpose - Life Answer Date Recorded Purpose and direction in life Unknown Comments Yes Sex and Gender Information Value Date Recorded Sex Assigned at Not on file Legal Sex Female 10:12 AM EDT Gender Identity Not on file Sexual Orientation Not on file documented as of this encounter Miscellaneous Notes * Telephone Encounter - Myah Stover MA - 03/31/2023 11:50 AM EST Patient called to let Dr. Malik no that she had her blood test done yesterday and she is 9 weeks . That will put her at 14 weeks by the time of her surgery. Gabriele also said that she will not be able to be seen by her OB until the Monday or Monday after her surgery. Please advise * Telephone Encounter - Gerson Malik MD - 03/31/2023 11:50 AM EST That should be fine. But I want her to call his office and let them know that she's having surgery * Telephone Encounter - Myah Stover MA - 03/31/2023 11:50 AM EST CALLED PATIENT WITH ABOVE INFORMATION. SHE VOICED UNDERSTANDING. documented in this encounter Plan of Treatment Not on file documented as of this encounter Visit Diagnoses Not on filedocumented in this encounter Care Teams Truck Driver Relationship Specialty Start Date End Date Supriya Cerrato, MAIL READER-PRINCIPAL SYSTEMS ARCHITECT PCP - General Nurse Practitioner 03/30/23 documented as of this encounter
--- OUTSIDE RECORDS SUMMARY | 2024-10-22 15:10 | XMS_ITS | Encounter Summary ---
Author Organization [facility] Address [address] [facility] [place] [address] Care Team Providers Care Body Fitter Name Role Phone Unavailable Primary Care Provider Unavailabl e Encounter Details Date Type Department Care Team (Late Contact Info) Description 09/21/2023 Clinisync Result Encounter [facility] External Department Unsolicited Xin Pro DO [address] [place], [place] [phone] Social History Tobacco Use Types Packs/Day Years [...] Procedure [facility] [address] [place] [phone] 11/19/2024 9:10 AM EDT Office Visit [facility] [address] [place] [phone] Xin Pro DO [address] [place] [address] documented as of this encounter Procedures Procedure Name Priority Date/Time Associated Diagnosis Comments US OB BPP W NON-STRESS 09/21/2023 7:16 AM EDT documented in this encounter Results * US OB BPP W NON-STRESS (09/21/2023 7:16 AM EDT) Anatomical Region Laterality Modality Other 09/21/2023 7:16 AM EDT Narrative 09/21/2023 7:19 [place] [address] Ultrasound Report Signed Patient: EDISON POST MR#: [id number] : 2000 Acct:[id number] Age/Sex: 23 / F ADM Date: 09/20/23 Loc: US Attending Dr: Xin Pro D.O. Ordering Physician: Xin Pro D.O. Date of Service: 09/20/23 Procedure(s): US OB BPP w non-stress Accession Number(s): [id number] cc: Xin Pro D.O.; Physician,Non-Staff M.DSheila The [place] [id number] Patient Name: EDISON POST MRN: [id number] date: 2000 Sex: F Assigned Patient Location: Current Patient Location: Accession/Order Number: [id number] Exam Date: 09/20/2023 17:42 Report Date: 09/21/2023 07:16 At the request of: XIN PRO Procedure: US OB BPP w non-stress EXAMINATION: US OB BPP w non-stress HISTORY: EXCESSIVE GROWTH AFFECTING O36.63X0 COMPARISON: No relevant comparison available. TECHNIQUE: Ultrasound biophysical profile was performed in the radiology department. FINDINGS: BREATHING MOVEMENTS: 2.0 GROSS BODY MOVEMENTS: 2.0 TONE: 2.0 QUALITATIVE AMNIOTIC FLUID VOLUME: 2.0 PRESENTATION: CEPHALIC HEART RATE: 152.5 bpm H.B./min AMNIOTIC FLUID VOLUME: 14.3 cm cm GESTATIONAL AGE: 33 weeks 5 days CONCLUSION: Total biophysical profile score: 8.0 Electronically authenticated by: DONALD AGUILAR Date: 09/21/2023 07:16 Dictated By: Donald Aguilar M.D. Signed By: 09/21/23718 DD/ 5 TD/TT: Transistor Tester: Procedure Note Radiology, Radiologist, - 09/21/2023 [place] [address] Ultrasound Report Signed Patient: EDISON POST LMR#: [id number] : 2000Acct:[id number] Age/Sex: 23 / FADM Date: 09/20/23 Loc: US Attending Dr: Xin Pro D.O. Ordering Physician: Xin Pro D.O. Date of Service: 09/20/23 Procedure(s): US OB BPP w non-stress Accession Number(s): [id number] cc: Xin Pro D.O.; Physician,Non-Staff M.Uriel The [place] [address] Patient Name: EDISON POST MRN: [facility]:[id number] date: 2000 Sex: F Assigned Patient Location: US Current Patient Location: Accession/Order Number: [id number] Exam Date: 09/20/2023 17:42 Report Date: 09/21/2023 07:16 At the request of: XIN PRO Procedure: US OB BPP w non-stress EXAMINATION: US OB BPP w non-stress HISTORY: EXCESSIVE GROWTH AFFECTING O36.63X0 COMPARISON: No relevant comparison available. TECHNIQUE: Ultrasound biophysical profile was performed in the radiology department. FINDINGS: BREATHING MOVEMENTS: 2.0 GROSS BODY MOVEMENTS: 2.0 TONE: 2.0 QUALITATIVE AMNIOTIC FLUID VOLUME: 2.0 PRESENTATION: CEPHALIC HEART RATE: 152.5 bpm H.B./min AMNIOTIC FLUID VOLUME: 14.3 cm cm GESTATIONAL AGE: 33 weeks 5 days CONCLUSION: Total biophysical profile score: 8.0 Electronically authenticated by: DONALD AGUILAR Date: 09/21/2023 07:16 Dictated By: Donald Aguilar M.D. Signed By:09/21/23 0719 DD/ 0716 TD/TT: Transistor Tester: us Xin Pro DO [facility] Final Result documented in this encounter Visit Diagnoses Not on filedocumented in this encounter
--- OUTSIDE RECORDS SUMMARY | 2024-10-22 15:10 | XMS_ITS | Encounter Summary ---
Author Organization [facility] Address [address] [place] [address] Care Team Providers Care Job Developer For Deaf Adults Name Role Phone Unavailable Primary Care Provider Unavailabl e Encounter Details Date Type Department Care Team (Late st Contact Info) Description 04/01/2023 Clinisync Result Encounter [facility] External Department Unsolicited Xin Pro, DO [address] [place], [place] [id number] Social History Tobacco Use Types Packs/Day Years Used Date Smoking Tobacco: Never Assessed Comments Yes Sex and Gender Information Value Date Recorded Sex Assigned at Not on file Legal Sex Female 11:47 PM EDT Gender Identity Not on file Sexual Orientation Not on file COVID-19 Exposure Response Date Recorded In the last 10 days, have yo u been in contact with someone who was confirmed or suspected to have Coronavirus/COVID-19? No / Unsure 03/14/2023 11:36 AM EST documented as of this encounter Plan of Treatment Upcoming Encounters Date Type Department Care Team (Late st Contact Info) Description 11/06/2024 9:00 AM EDT Ancillary Procedure [facility] OB [address] [place] [address] 11/19/2024 9:10 AM EDT Office Visit [facility] OB [address] [place] [address] Xin Pro DO [address] [place] [address] [phone] (work) documented as of this encounter Procedures Procedure Name Priority Date/Time Associated Diagnosis Comments US OB TRANSVAGINAL 04/01/2023 12 :26 AM EST documented in this encounter Results * US OB TRANSVAGINAL (04/01/2023 12:26 AM EST) Anatomical Region Laterality Modality Other 04/01/2023 12:2 6 AM EST Narrative 04/01/2023 12:29 AM EST [address] [address] Ultrasound Report Signed Patient: EDISON POST MR#: [id number] : 2000 Acct:[id number] Age/Sex: 23 / F ADM Date: 03/31/23 Loc: US Attending Dr: Xin Pro D.O. Ordering Physician: Xin Pro D.O. Date of Service: 03/31/23 Procedure(s): US OB transvaginal Accession Number(s): [id number] cc: Xin Pro D.O.; Physician,Non-Staff MKwadwo [address] [address] Patient Name: EDISON POST MRN: [id number] date: 2000 Sex: F Assigned Patient Location: US Current Patient Location: Accession/Order Number: [id number] Exam Date: 03/31/2023 10:14 Report Date: 04/01/2023 00:26 At the request of: XIN PRO Procedure: US OB transvaginal EXAMINATION: US OB transvaginal HISTORY: MISSED MENSES COMPARISON: No relevant comparison available. FINDINGS: GESTATIONAL SAC: Present and normal appearing. YOLK SAC: Present and normal appearing. POLE: Present and normal appearing. CARDIAC: Present. UTERUS: Normal size and appearance. OVARIES: Right: Normal. Left: Normal. CERVIX: 3.7 cm in length and closed. CUL-DE-SAC: Normal. OTHER: None. AGE BY LMP: Unknown LMP LILIAN BY LMP: AGE BY US CRL: 9 weeks 0 days LILIAN BY US CRL: 11/03/2023 US/US OB transvaginal IMPRESSION: 1. Single live intrauterine 9 weeks 0 days by today's ultrasound. Electronically authenticated by: TRISTAN HART Date: 04/01/2023 00:26 Dictated By: Tristan Hart M.D. Signed By: 04/01/2328 DD/ TD/TT: Trust Administrator: Procedure Note Radiology, Radiologist, MD - 04/01/2023 [place] [address] Ultrasound Report Signed Patient: EDISON POST LMR#: [id number] : 2000Acct:[id number] Age/Sex: 23 / FADM Date: 03/31/23 Loc: US Attending Dr: Xin Pro D.O. Ordering Physician: Xin Pro D.O. Date of Service: 03/31/23 Procedure(s): US OB transvaginal Accession Number(s): [id number] cc: Xin Pro D.O.; Physician,Non-Staff Julio The [place] [id number] Patient Name: EDISON POST MRN: [id number] date: 2000 Sex: F Assigned Patient Location: US Current Patient Location: Accession/Order Number: [id number] Exam Date: 03/31/2023 10:14 Report Date: 04/01/2023 00:26 At the request of: XIN PRO Procedure: US OB transvaginal EXAMINATION: US OB transvaginal HISTORY: MISSED MENSES COMPARISON: No relevant comparison available. FINDINGS: GESTATIONAL SAC: Present and normal appearing. YOLK SAC: Present and normal appearing. POLE: Present and normal appearing. CARDIAC: Present. UTERUS: Normal size and appearance. OVARIES: Right: Normal. Left: Normal. CERVIX: 3.7 cm in length and closed. CUL-DE-SAC: Normal. OTHER: None. AGE BY LMP: Unknown LMP LILIAN BY LMP: AGE BY US CRL: 9 weeks 0 days LILIAN BY US CRL: 11/03/2023 US/US OB transvaginal IMPRESSION: 1. Single live intrauterine 9 weeks 0 days by nita. Electronically authenticated by: TRISTAN HART Date: 04/01/2023 00:26 Dictated By: Tristan Hart M.D. Signed By:04/01/239 DD/ TD/TT: Trust Administrator: us Xin Morteza DO [facility] Final Result documented in this encounter Visit Diagnoses Not on filedocumented in this encounter
--- OUTSIDE RECORDS SUMMARY | 2024-10-22 15:10 | XMS_ITS | Encounter Summary ---
Author Organization [facility] Address [address] [place] [address] Care Team Providers Care Windsurfing Instructor Name Role Phone Unavailable Primary Care Provider Unavailabl e Encounter Details Date Type Department Care Team ([facility] Contact Info) Description 10/16/2023 Abstract [facility] [address] [place] [phone] Fletcher Pro, DO [address] [place], [place] [phone] Social History Tobacco Use Types Packs/Day Years [...] Procedure [facility] OB [address] [place] [address] 11/19/2024 9:10 AM EDT Office Visit [facility] OB [address] [place] [address] Fletcher Pro DO [address] [place], [place] [phone] documented as of this encounter Visit Diagnoses Not on filedocumented in this encounter
--- OUTSIDE RECORDS SUMMARY | 2024-10-22 15:10 | XMS_ITS | Encounter Summary ---
Author Organization [facility] Address [address] [place] [address] Care Team Providers Care Alodize Machine Helper Name Role Phone Unavailable Primary Care Provider Unavailabl e Encounter Details Date Type Department Care Team (Late Contact Info) Description 10/14/2023 Abstract [facility] OB [address] [place] [address] Fletcher Pro DO [facility] [place], [facility]11 Social History Tobacco Use Types Packs/Day Years [...] 11/06/2024 9:00 AM EDT Ancillary Procedure [facility] [place] [address] 11/19/2024 9:10 AM EDT Office Visit [facility] [place] [address] Fletcher Pro DO [address] [place], [place] [phone] documented as of this encounter Visit Diagnoses Not on filedocumented in this encounter
--- OUTSIDE RECORDS SUMMARY | 2024-10-22 15:10 | XMS_ITS | Clinical Summary ---
Author Organization [facility] Address [address] [place] [address] Care Team Providers Care Cable Braider Name Role Phone Unavailable Primary Care Provider Unavailabl e Allergies No known active allergies Medications sulfamethoxazole -trimethoprim (Bactrim DS) 800-160 MG per tabletIndication s:UTI symptoms Take 1 tablet by mouth in the morning and 1 tablet before bedtime. Do all this for 7 days. 14 tablet 10/23/19 25 2024 Active Vit-DSS-Fe Fum-FA ( 19) tablet Take 1 mg by mouth in the morning. 2024 Discontinued etonogestrel-eth inyl estradiol (NuvaRing) 0.12-0.015 MG/24HR vaginal ringIndications: Encounter for initial prescription of vaginal ring hormonal contraceptive Insert vaginally and leave in place for 21 consecutive days (3 weeks), then remove. Wait for 7 days before inserting new ring. 1 each 12 11/27/19 24 2024 Discontinued Encounters Date Type Department Care Team Description 10/22/2024 1:00 PM EDT Office Visit [facility] [address] [place] [address] Fletcher Pro DO Well woman exam with routine gynecological exam; UTI symptoms; PCOS (polycystic ovarian syndrome); Menorrhagia with regular cycle 10/22/2024 Bamboo flowsheet [facility] [address] [place] [address] Fletcher Pro DO from Last 3 Months Family History Medical History Relation Name Comments COPD Maternal Grandfather Diabetes Maternal Grandfather Breast cancer Maternal Grandmother COPD Maternal Grandmother Diabetes Maternal Grandmother Hypertension Maternal Grandmother Stroke Maternal Grandmother Cancer Paternal Grandmother Relation Name Status Comments Father Alive Maternal Grandfather Maternal Grandmother Mother Alive Paternal Grandmother Social History Tobacco Use Types [...] Pressure 120/82 10/22/2024 1:20 PM EDT Pulse 88 12/04/2023 6:07 PM EDT Temperature 37.1 C (98.7 F) 12/04/2023 6:07 PM EDT Respiratory Rate - - Oxygen Saturation 98% 12/04/2023 6:07 PM EDT Inhaled Oxygen Concentration - - Weight 112 kg (246 lb 6.4 oz) 10/22/2024 1:20 PM EDT Height 160 cm (5' 3 ) 03/07/2023 1:20 PM EST Body Mass Index 43.65 03/07/2023 1:20 PM EST Plan of Treatment Upcoming Encounters Date Type Department Care Team (Late st Contact Info) Description 11/06/2024 9:00 AM EDT Ancillary Procedure [facility] [address] [place] [address] 11/19/2024 9:10 AM EDT Office Visit [facility] [address] [place] [address] Fletcher Pro DO [address] [place] [address] Procedures Procedure Name Priority Date/Time Associated Diagnosis Comments POCT URINALYSIS DIPSTICK Routine 10/22/2024 1:34 PM EDT UTI symptoms from Last 3 Months Results * POCT urinalysis dipstick manually resulted [...] - Positive Urine 10/22/2024 1:34 PM EDT us Fletcher Pro DO POINT OF CARE TEST ENTER/EDIT OR DERABLES Final Result from Last 3 Months
--- OUTSIDE RECORDS SUMMARY | 2024-10-22 15:10 | XMS_ITS | Encounter Summary ---
Author Organization [facility] Address [address] [facility] [place] [address] Care Team Providers Care Energy Consultant Name Role Phone Unavailable Primary Care Provider Unavailabl e Encounter Details Date Type Department Care Team (Late Contact Info) Description 08/30/2023 Clinisync Result Encounter [facility] External Department Unsolicited Xin Pro DO [address], [place] [phone] Social History Tobacco Use Types Packs/Day Years [...] Procedure [facility] [address] [place] [phone] 11/19/2024 9:10 AM EDT Office Visit [facility] [address] [place] [phone] Xin Pro DO [address] [place] [address] documented as of this encounter Procedures Procedure Name Priority Date/Time Associated Diagnosis Comments US OB GROWTH 08/30/2023 3:15 PM EDT documented in this encounter Results * US OB GROWTH (08/30/2023 3:15 PM EDT) Anatomical Region Laterality Modality Other 08/30/2023 3:15 PM EDT Narrative 08/30/2023 3:18 [place] [address] Ultrasound Report Signed Patient: EDISON POST MR#: [id number] : 2000 Acct:[id number] Age/Sex: 23 / F ADM Date: 08/30/23 Loc: [facility] Attending Dr: Xin Pro D.O. Ordering Physician: Xin Pro D.O. Date of Service: 08/30/23 Procedure(s): US OB growth Accession Number(s): [id number] cc: Xin Pro D.O.; Physician,Non-Staff M.DSheila The [place] [id number] Patient Name: EDISON POST MRN: [id number] date: 2000 Sex: F Assigned Patient Location: [facility] Current Patient Location: [facility] Accession/Order Number: [id number] Exam Date: 08/30/2023 14:16 Report Date: 08/30/2023 15:15 At the request of: XIN PRO Procedure: US OB growth EXAMINATION: US OB growth HISTORY: SIZE INCONSISTENT WITH DATES COMPARISON: No relevant comparison available. FINDINGS: Heart Rate: 147.0 bpm Amniotic Fluid Volume: 10.6 cm Number: 1.0 Position: Cephalic presentation, longitudinal lie Maximum Vertical Pocket: 3.7 cm cm 2.3 cm cm 3.4 cm cm 1.3 cm cm BIOMETRY: BPD: 8.1 cm cm; 32 weeks 3 days; 87% HC: 30.4 cmcm; 33 weeks 5 days , 91% AC: 27.9 cm cm; 32 weeks 0 days, 82% FL: 6.2 cm cm; 32 weeks 1 days; 75.0 % % EFW: 1933.8 grams, 4 lbs. 4 oz., 87% FL/AC: 22.2 FL/BPD: 76.7 HC/AC: 1.1 GESTATIONAL AGE: Age by EDC: 30 weeks 5 days LILIAN by EDC: 11/03/2023 Age by US: 32 weeks 4 days LILIAN by US: 10/21/2023 US/US OB growth IMPRESSION: Normal interval growth Electronically authenticated by: DONALD AGUILAR Date: 08/30/2023 15:15 Dictated By: Donald Aguilar M.D. Signed By: 08/30/23 1518 DD/ 1515 TD/TT: Leveler Helper: Procedure Note Radiology, Radiologist, - 08/30/2023 [place] [address] Ultrasound Report Signed Patient: EDISON POST LMR#: [id number] : 2000Acct:[id number] Age/Sex: 23 / FADM Date: 08/30/23 Loc: [facility] Attending Dr: Xin Pro D.O. Ordering Physician: Xin Pro D.O. Date of Service: 08/30/23 Procedure(s): US OB growth Accession Number(s): [id number] cc: Xin Pro D.O.; Physician,Non-Staff Julio [facility] [place] [id number] Patient Name: EDISON POST MRN: [id number] date: 2000 Sex: F Assigned Patient Location: [facility] Current Patient Location: [facility] Accession/Order Number: [id number] Exam Date: 08/30/2023 14:16 Report Date: 08/30/2023 15:15 At the request of: XIN PRO Procedure: US OB growth EXAMINATION: US OB growth HISTORY: SIZE INCONSISTENT WITH DATES COMPARISON: No relevant comparison available. FINDINGS: Heart Rate: 147.0 bpm Amniotic Fluid Volume: 10.6 cm Number: 1.0 Position: Cephalic presentation, longitudinal lie Maximum Vertical Pocket: 3.7 cm cm 2.3 cm cm 3.4 cm cm 1.3 cm cm BIOMETRY: BPD: 8.1 cm cm; 32 weeks 3 days; 87% HC: 30.4 cmcm; 33 weeks 5 days , 91% AC: 27.9 cm cm; 32 weeks 0 days, 82% FL: 6.2 cm cm; 32 weeks 1 days; 75.0 % % EFW: 1933.8 grams, 4 lbs. 4 oz., 87% FL/AC: 22.2 FL/BPD: 76.7 HC/AC: 1.1 GESTATIONAL AGE: Age by EDC: 30 weeks 5 days LILIAN by EDC: 11/03/2023 Age by US: 32 weeks 4 days LILIAN by US: 10/21/2023 US/US OB growth IMPRESSION: Normal interval growth Electronically authenticated by: DONALD AGUILAR Date: 08/30/2023 15:15 Dictated By: Donald Aguilar M.D. Signed By:08/30/23 1518 DD/ 1515 TD/TT: Leveler Helper: us Xin Morteza DO [facility] Final Result documented in this encounter Visit Diagnoses Not on filedocumented in this encounter
--- OUTSIDE RECORDS SUMMARY | 2024-10-22 15:10 | XMS_ITS | Clinical Summary ---
Author Organization [facility] Address [address] [place] [address] Care Team Providers Care Box Toe Flanger Stitchdowns Name Role Phone Unavailable Primary Care Provider Unavailabl e Allergies No known active allergies Medications sulfamethoxazole -trimethoprim (BACTRIM DS;SEPTRA DS) 800-160 MG per tablet TAKE 1 TABLET BY MOUTH TWICE DAILY. 0 01/09/2017 Active norgestimate-eth inyl estradiol (ORTHO-CYCLEN, 28,) 0.25-35 MG-MCG per tabletIndication s:Menorrhagia with irregular cycle Take 1 tablet by mouth daily 1 packet 3 01/16/2017 Active Active Problems No known active problems Immunizations Immunization Administration Dates Next Due Meningococcal ACWY Vaccine 2014 TDaP, ADACEL (age 10y-64y), BOOSTRIX (age 10y+), IM, 0.5mL 10/12/2015,10/11/2005,04/13/2005,03/16 Family History Medical History Relation Name Comments Diabetes Maternal Grandfather Cancer Maternal Grandmother breast Diabetes Maternal Grandmother Relation Name Status Comments Brother Alive Father Alive Maternal Grandfather Alive Maternal Grandmother Alive Mother Alive Paternal Grandfather Paternal Grandmother Alive Sister Alive Social History Tobacco Use Types Packs/Day Years Used Date Smoking Tobacco: Never Smokeless Tobacco: Never Alcohol Use Standard Drinks/Week Comments No 0 (1 standard drink = 0.6 oz pur e alcohol) Comments No Sex and Gender Information Value Date Recorded Sex Assigned at Not on file Legal Sex Female 5:55 PM EST Gender Identity Not on file Sexual Orientation Not on file Last Filed Vital Signs Vital Sign Reading Time Taken Comments Blood Pressure 116/70 01/16/2017 12:03 PM EDT Pulse - - Temperature - - Respiratory Rate - - Oxygen Saturation - - Inhaled Oxygen Concentration - - Weight 85.7 kg (189 lb) 01/16/2017 12:03 PM EDT Height 160 cm (5' 3 ) 01/16/2017 12:03 PM EDT Body Mass Index 33.48 01/16/2017 12:03 PM EDT Plan of Treatment Not on file Insurance
--- OUTSIDE RECORDS SUMMARY | 2024-10-22 15:10 | XMS_ITS | Encounter Summary ---
Author Organization [facility] Address [address] [facility] [place] [address] Care Team Providers Care Psychology Physician Name Role Phone Unavailable Primary Care Provider Unavailabl e Encounter Details Date Type Department Care Team (Late Contact Info) Description 10/05/2023 Clinisync Result Encounter [facility] External Department Unsolicited Xin Pro DO [address] [place], [place] [phone] Social History Tobacco Use Types Packs/Day Years [...] Procedure [facility] [address] [place] [phone] 11/19/2024 9:10 AM EDT Office Visit [facility] OB [address] [place] [address] Xin Pro DO [address] [place] [address] documented as of this encounter Procedures Procedure Name Priority Date/Time Associated Diagnosis Comments US OB GROWTH 10/05/2023 7:12 AM EDT documented in this encounter Results * US OB GROWTH (10/05/2023 7:12 AM EDT) Anatomical Region Laterality Modality Other 10/05/2023 7:12 AM EDT Narrative 10/05/2023 7:14 [place] [address] Ultrasound Report Signed Patient: EDISON POST MR#: [id number] : 2000 Acct:[id number] Age/Sex: 23 / F ADM Date: 10/04/23 Loc: US Attending Dr: Xin Pro D.O. Ordering Physician: Xin Pro D.O. Date of Service: 10/04/23 Procedure(s): US OB growth Accession Number(s): [id number] cc: Xin Pro D.O.; Physician,Non-Staff M.DSheila The [place] [id number] Patient Name: EDISON POST MRN: [id number] date: 2000 Sex: F Assigned Patient Location: [facility] Current Patient Location: US Accession/Order Number: [id number] Exam Date: 10/04/2023 18:43 Report Date: 10/05/2023 07:12 At the request of: XIN PRO Procedure: US OB growth EXAMINATION: US OB growth HISTORY: EXCESSIVE GROWTH AFFECTING O36.63X0 COMPARISON: No relevant comparison available. FINDINGS: Heart Rate: 143.62 bpm Amniotic Fluid Volume: 17.5 cm, largest fluid pocket 6.6 cm Number: 1 Position: Cephalic presentation, longitudinal lie BIOMETRY: BPD: 9.27 cm cm; 37 weeks 5 days; 94.60 %% HC: 34.59 cm cm; 40 weeks 0 days; >97 %% AC: 33.66 cm cm; 37 weeks 4 days; 94.90 %% FL: 6.93 cm cm; 35 weeks 4 days; 40.10 %% EFW: 3189.94 g; 7 lbs. 1 oz. 89.50 % FL/AC: 20.58 FL/BPD: 74.76 HC/AC: 1.03 GESTATIONAL AGE: Age by EDC: 35 weeks 5 days LILIAN by EDC: 2023-11-03 Age by US: 37 weeks 5 days LILIAN by US: 2023-10-20 Fluid-filled bowel within observed US/US OB growth IMPRESSION: Head circumference greater than the 97th percentile. Abdominal circumference at the 95th percentile Electronically authenticated by: DONALD AGUILAR Date: 10/05/2023 07:12 Dictated By: Donald Aguilar M.D. Signed By: 10/05/23713 DD/ 1 TD/TT: Transport Corps Officer: Procedure Note Radiology, Radiologist, MD - 10/05/2023 [place] [address] Ultrasound Report Signed Patient: EDISON POST LMR#: [id number] : 2000Acct:[id number] Age/Sex: 23 / FADM Date: 10/04/23 Loc: US Attending Dr: Xin Pro D.O. Ordering Physician: Xin Pro D.O. Date of Service: 10/04/23 Procedure(s): US OB growth Accession Number(s): [id number] cc: Xin Pro D.O.; Physician,Non-Staff Julio The [place] [id number] Patient Name: EDISON POST MRN: [id number] date: 2000 Sex: F Assigned Patient Location: [facility] Current Patient Location: US Accession/Order Number: [id number] Exam Date: 10/04/2023 18:43 Report Date: 10/05/2023 07:12 At the request of: XIN PRO Procedure: US OB growth EXAMINATION: US OB growth HISTORY: EXCESSIVE GROWTH AFFECTING O36.63X0 COMPARISON: No relevant comparison available. FINDINGS: Heart Rate: 143.62 bpm Amniotic Fluid Volume: 17.5 cm, largest fluid pocket 6.6 cm Number: 1 Position: Cephalic presentation, longitudinal lie BIOMETRY: BPD: 9.27 cm cm; 37 weeks 5 days; 94.60 %% HC: 34.59 cm cm; 40 weeks 0 days; >97 %% AC: 33.66 cm cm; 37 weeks 4 days; 94.90 %% FL: 6.93 cm cm; 35 weeks 4 days; 40.10 %% EFW: 3189.94 g; 7 lbs. 1 oz. 89.50 % FL/AC: 20.58 FL/BPD: 74.76 HC/AC: 1.03 GESTATIONAL AGE: Age by EDC: 35 weeks 5 days LILIAN by EDC: 2023-11-03 Age by US: 37 weeks 5 days LILIAN by US: 2023-10-20 Fluid-filled bowel within observed US/US OB growth IMPRESSION: Head circumference greater than the 97th percentile. Abdominal circumference at the 95th percentile Electronically authenticated by: DONALD AGUILAR Date: 10/05/2023 07:12 Dictated By: Donald Aguilar M.D. Signed By:10/05/23713 DD/ 1 TD/TT: Transport Corps Officer: us Xin Morteza DO [facility] Final Result documented in this encounter Visit Diagnoses Not on filedocumented in this encounter
--- OUTSIDE RECORDS SUMMARY | 2024-10-22 15:10 | XMS_ITS | Encounter Summary ---
Author Organization [facility] Address [address] [facility] [place] [address] Care Team Providers Care Machine Oiler Name Role Phone Unavailable Primary Care Provider Unavailabl e Encounter Details Date Type Department Care Team (Late Contact Info) Description 09/13/2023 Clinisync Result Encounter [facility] External Department Unsolicited Xin Pro DO [address], [place] [phone] Social History Tobacco Use Types Packs/Day Years [...] Procedure [facility] OB [address] [place] [phone] 11/19/2024 9:10 AM EDT Office Visit [facility] OB [address] [place] [phone] Xin Pro DO [address] [place] [address] documented as of this encounter Procedures Procedure Name Priority Date/Time Associated Diagnosis Comments US OB BPP W NON-STRESS 09/13/2023 1:57 PM EDT documented in this encounter Results * US OB BPP W NON-STRESS (09/13/2023 1:57 PM EDT) Anatomical Region Laterality Modality Other 09/13/2023 1:57 PM EDT Narrative 09/13/2023 1:59 [place] [address] Ultrasound Report Signed Patient: EDISON POST MR#: [id number] : 2000 Acct:[id number] Age/Sex: 23 / F ADM Date: 09/13/23 Loc: [facility] 250-[address]: Xin Pro D.O. Ordering Physician: Xin Pro D.O. Date of Service: 09/13/23 Procedure(s): US OB BPP w non-stress Accession Number(s): [id number] cc: Xin Pro D.O.; Physician,Non-Staff M.[place] [id number] Patient Name: EDISON POST MRN: [id number] date: 2000 Sex: F Assigned Patient Location: [facility] Current Patient Location: [facility] Accession/Order Number: [id number] Exam Date: 09/13/2023 12:50 Report Date: 09/13/2023 13:57 At the request of: XIN PRO Procedure: US OB BPP w non-stress EXAMINATION: US OB BPP w non-stress HISTORY: Excessive growth COMPARISON: Ultrasound OB growth 08/30/2023 TECHNIQUE: Ultrasound biophysical profile was performed in the radiology department. BREATHING MOVEMENTS: 2.0 GROSS BODY MOVEMENTS: 2.0 TONE: 2.0 QUALITATIVE AMNIOTIC FLUID VOLUME: 2.0 PRESENTATION: CEPHALIC HEART RATE: 147.5 bpm bpm. AMNIOTIC FLUID VOLUME: 11.4 cm GESTATIONAL AGE: 32 weeks 5 days CONCLUSION: Total biophysical profile score 8.0. Electronically authenticated by: TRISTAN HART Date: 09/13/2023 13:57 Dictated By: Tristan Hart M.D. Signed By: 09/13/23 1356 DD/ 1352 TD/TT: Casino Operations Supervisor: Procedure Note Radiology, Radiologist, - 09/13/2023 [place] [address] Ultrasound Report Signed Patient: EDISON POST LMR#: [id number] : 2000Acct:[id number] Age/Sex: 23 / FADM Date: 09/13/23 Loc: [facility] 250-[address]: Xin Pro D.O. Ordering Physician: Xin Pro D.O. Date of Service: 09/13/23 Procedure(s): US OB BPP w non-stress Accession Number(s): [id number] cc: Xin Pro D.O.; Physician,Non-Staff Julio The [place] [address] Patient Name: EDISON POST MRN: [facility]:[id number] date: 2000 Sex: F Assigned Patient Location: [facility] Current Patient Location: [facility] Accession/Order Number: [id number] Exam Date: 09/13/2023 12:50 Report Date: 09/13/2023 13:57 At the request of: XIN PRO Procedure: US OB BPP w non-stress EXAMINATION: US OB BPP w non-stress HISTORY: Excessive growth COMPARISON: Ultrasound OB growth 08/30/2023 TECHNIQUE: Ultrasound biophysical profile was performed in the radiology department. BREATHING MOVEMENTS: 2.0 GROSS BODY MOVEMENTS: 2.0 TONE: 2.0 QUALITATIVE AMNIOTIC FLUID VOLUME: 2.0 PRESENTATION: CEPHALIC HEART RATE: 147.5 bpm bpm. AMNIOTIC FLUID VOLUME: 11.4 cm GESTATIONAL AGE: 32 weeks 5 days CONCLUSION: Total biophysical profile score 8.0. Electronically authenticated by: TRISTAN HART Date: 09/13/2023 13:57 Dictated By: Tristan Hart M.D. Signed By:09/13/23 1359 DD/ 1357 TD/TT: Casino Operations Supervisor: us Xin Pro DO [facility] Final Result documented in this encounter Visit Diagnoses Not on filedocumented in this encounter
--- OUTSIDE RECORDS SUMMARY | 2024-10-22 15:10 | XMS_ITS | Encounter Summary ---
Author Organization [facility] Address [address] [facility] [place] [address] Care Team Providers Care Cigar Wrapper Name Role Phone Unavailable Primary Care Provider Unavailabl e Encounter Details Date Type Department Care Team (Late st Contact Info) Description 09/13/2023 Clinisync Result Encounter [facility] External Department Unsolicited Xin Pro, DO [address] [place] [address] Social History Tobacco Use Types Packs/Day Years [...] as of this encounter Miscellaneous Notes * Result Encounter Note - Monique Baker LPN - 09/13/2023 2:06 PM EDT Attempted to call pt to let her know but she did not answer. Detailed voicemail left. documented in this encounter Plan of Treatment Upcoming Encounters Date Type Department Care Team (Late st Contact Info) Description 11/06/2024 9:00 AM EDT Ancillary Procedure [facility] OB [address] [place] [phone] 11/19/2024 9:10 AM EDT Office Visit [facility] OB [address] [facility] [phone] Xin Pro DO [address] [place] [address] documented as of this encounter Procedures Procedure Name Priority Date/Time Associated Diagnosis Comments US OB GROWTH 09/13/2023 2:02 PM EDT documented in this encounter Results * US OB GROWTH (09/13/2023 2:02 PM EDT) Anatomical Region Laterality Modality Other 09/13/2023 2:02 PM EDT Narrative 09/13/2023 2:04 PM EDT [address] [address] Ultrasound Report Signed Patient: EDISON POST MR#: [id number] : 2000 Acct:[id number] Age/Sex: 23 / F ADM Date: 09/13/23 Loc: US Attending Dr: Xin Pro D.O. Ordering Physician: Xin Pro D.O. Date of Service: 09/13/23 Procedure(s): US OB growth Accession Number(s): [id number] cc: Xin Pro D.O.; Physician,Non-Staff MKwadwo The [address] [address] Patient Name: EDISON POST MRN: [id number] date: 2000 Sex: F Assigned Patient Location: US Current Patient Location: Accession/Order Number: [id number] Exam Date: 09/13/2023 12:50 Report Date: 09/13/2023 14:02 At the request of: XIN PRO Procedure: US OB growth EXAMINATION: US OB growth HISTORY: Excessive growth COMPARISON: Ultrasound OB growth 08/30/2023 FINDINGS: Heart Rate: 147.5 bpm Number: 1.0 Position: CEPHALIC Amniotic Fluid Volume: 11.4 cm Maximum Vertical Pocket: 3.9 cm BIOMETRY: BPD: 8.8 cm cm; 35 weeks 5 days; >97% HC: 32.9 cmcm; 37 weeks 3 days ; >97% AC: 30.3 cm cm; 34 weeks 2 days; 88% FL: 6.5 cm cm; 33 weeks 4 days; 63% EFW: 2450.1 grams; 90% FL/AC: 21.5 FL/BPD: 73.9 HC/AC: 1.1 GESTATIONAL AGE: Age by EDC: 32 weeks 5 days LILIAN by EDC: 11/03/2023 Age by US: 35 weeks 2 days LILIAN by US: 10/16/2023 US/US OB growth IMPRESSION: 1. Single live intrauterine with growth detailed above. 2. BPD and HC are both greater than 97th percentile. 3. Fluid-filled stomach and loops of bowel. Electronically authenticated by: TRISTAN HART Date: 09/13/2023 14:02 Dictated By: Tristan Hart M.D. Signed By: 09/13/23 1404 DD/ 01 TD/TT: Browning Processor: Procedure Note Radiology, Radiologist, MD - 09/13/2023 [place] [address] Ultrasound Report Signed Patient: EDISON POST LMR#: [id number] : 2000Acct:[id number] Age/Sex: 23 / FADM Date: 09/13/23 Loc: US Attending Dr: Xin Pro D.O. Ordering Physician: Xin Pro D.O. Date of Service: 09/13/23 Procedure(s): US OB growth Accession Number(s): [id number] cc: Xin Pro D.O.; Physician,Non-Staff Julio The [address] [address] Patient Name: EDISON POST MRN: [id number] date: 2000 Sex: F Assigned Patient Location: US Current Patient Location: Accession/Order Number: [id number] Exam Date: 09/13/2023 12:50 Report Date: 09/13/2023 14:02 At the request of: XIN PRO Procedure: US OB growth EXAMINATION: US OB growth HISTORY: Excessive growth COMPARISON: Ultrasound OB growth 08/30/2023 FINDINGS: Heart Rate: 147.5 bpm Number: 1.0 Position: CEPHALIC Amniotic Fluid Volume: 11.4 cm Maximum Vertical Pocket: 3.9 cm BIOMETRY: BPD: 8.8 cm cm; 35 weeks 5 days; >97% HC: 32.9 cmcm; 37 weeks 3 days ; >97% AC: 30.3 cm cm; 34 weeks 2 days; 88% FL: 6.5 cm cm; 33 weeks 4 days; 63% EFW: 2450.1 grams; 90% FL/AC: 21.5 FL/BPD: 73.9 HC/AC: 1.1 GESTATIONAL AGE: Age by EDC: 32 weeks 5 days LILIAN by EDC: 11/03/2023 Age by US: 35 weeks 2 days LILIAN by US: 10/16/2023 US/US OB growth IMPRESSION: 1. Single live intrauterine with growth detailed above. 2. BPD and HC are both greater than 97th percentile. 3. Fluid-filled stomach and loops of bowel. Electronically authenticated by: TRISTAN HART Date: 09/13/2023 14:02 Dictated By: Tristan Hart M.D. Signed By:09/13/23 1404 DD/ 1402 TD/TT: Browning Processor: us Xin Pro DO [facility] Final Result documented in this encounter Visit Diagnoses Not on filedocumented in this encounter
--- OUTSIDE RECORDS SUMMARY | 2024-10-22 15:10 | XMS_ITS | Clinical Summary ---
Author Organization [facility] Address [address] [place] [phone] Care Team Providers Care Senior Commissary Agent Name Role Phone Unavailable Primary Care Provider Unavailabl e Allergies No known active allergies Medications pantoprazole [address] Take 20 mg by mouth daily. Active Social History Tobacco Use Types Packs/Day Years Used Date Smoking Tobacco: Never Smokeless Tobacco: Never Alcohol Use Standard Drinks/Week Comments No 0 (1 standard drink = 0.6 oz pur e alcohol) Comments Unknown Sex and Gender Information Value Date Recorded Sex Assigned at Not on file Legal Sex Female 12:49 PM EDT Gender Identity Female 07/07/2017 12:49 PM EDT Sexual Orientation Not on file Last Filed Vital Signs Vital Sign Reading Time Taken Comments Blood Pressure 133/68 07/07/2017 8:47 PM EDT Pulse 94 07/07/2017 8:47 PM EDT Temperature 36.5 C (97.7 F) 07/07/2017 7:05 PM EDT Respiratory Rate 16 07/07/2017 8:47 PM EDT Oxygen Saturation 98% 07/07/2017 8:47 PM EDT Inhaled Oxygen Concentration - - Weight - - Height 157.5 cm (5' 2 ) 07/07/2017 7:07 PM EDT Body Mass Index - - Plan of Treatment Health Maintenance Due Date Last Done Comments GONORRHEA SCREEN 2000 HEPATITIS C VIRUS SCREENING 1998 HIV SCREENING DISCUSSION 2013 HPV VACCINE ADOL (1 - 3-dose series) 2013 HPV VACCINE (1 - 3-dose series) 2013 CHLAMYDIA SCREEN 2014 HEP B VACCINE (1 of 3 - 19+ 3-dose series) 2017 CERVICAL CANCER SCREENING DISCUSSION 2019 COVID-19 VACCINE (2023- season) 2023 INFLUENZA VACCINE (#1) 2024 TETANUS 10/11/2025 10/12/2015, 07/2005, 04/13/2005, Additional history exists TDAP (ADULT) Completed 10/12/2015, 07/2005, 04/13/2005, Additional history exists PNEUMOCOCCAL VACCINE SERIES Aged Out No longer eligible based on patient's age to complete this topic Insurance
--- OUTSIDE RECORDS SUMMARY | 2024-10-22 15:10 | XMS_ITS | Encounter Summary ---
Author Organization [facility] Address [address] [place] [address] Care Team Providers Care Milling Operator Name Role Phone Unavailable Primary Care Provider Unavailabl e Encounter Details Date Type Department Care Team (Late st Contact Info) Description 03/08/2023 Clinisync Result Encounter [facility] External Department Unsolicited Xin Pro, DO [address] [place], [place] [id number] Social History Tobacco Use Types Packs/Day Years [...] suspected to have Coronavirus/COVID-19? No / Unsure 03/07/2023 9:51 AM EST documented as of this encounter Plan of Treatment Upcoming Encounters Date Type Department Care Team (Late Contact Info) Description 11/06/2024 9:00 AM EDT Ancillary Procedure [facility] [address] [place] [address] 11/19/2024 9:10 AM EDT Office Visit [facility] [address] [place] [address] Xin Pro DO [address] [place] [address] documented as of this encounter Procedures Procedure Name Priority Date/Time Associated Diagnosis Comments US RIGHT UPPER QUADRANT 03/08/2023 6:39 AM EST documented in this encounter Results * US RIGHT UPPER QUADRANT (03/08/2023 6:39 AM EST) Anatomical Region Laterality Modality Other 03/08/2023 6:39 AM EST Narrative 03/08/2023 6:39 AM EST [address] [address] Ultrasound Report Signed Patient: EDISON POST MR#: [id number] : 2000 Acct:[id number] Age/Sex: 22 / F ADM Date: 03/07/23 Loc: LAB Attending Dr: Xin Pro D.O. Ordering Physician: Xin Pro D.O. Date of Service: 03/07/23 Procedure(s): US right upper quadrant Accession Number(s): [id number] cc: Xin Pro D.O.; Physician,Non-Staff Julio The [address] [address] Patient Name: EDISON POST MRN: [id number] date: 2000 Sex: F Assigned Patient Location: LAB Current Patient Location: ED.MAIN Accession/Order Number: [id number] Exam Date: 03/07/2023 15:34 Report Date: 03/08/2023 06:39 At the request of: XIN POR Procedure: US right upper quadrant EXAMINATION: US right upper quadrant HISTORY: Right Side Upper Quadrant Pain, Gallbladder attack K82.9 COMPARISON: No relevant comparison available. TECHNIQUE: Transabdominal evaluation of the right upper quadrant. FINDINGS: LIVER: Normal size and echotexture. Color Doppler demonstrates patent hepatic veins. PORTAL VEIN: Duplex Doppler demonstrates normal hepatopetal flow pattern with elevated flow velocity averaging 141 cm/s. GALLBLADDER: Contains several large stones, largest is 3.2 cm. Gallbladder is filled with dense material/sludge. No abnormal wall thickening or free fluid. BILIARY: No abnormal dilation or stones. Common bile duct diameter is within normal limits. PANCREASE: No visible mass, abnormal atrophy, or duct dilation. KIDNEY: Avascular area of soft tissue echogenicity within mid body of kidney, 2.1 cm in diameter. No cortical thinning, stones, free fluid. Size: 11.8 x 5.9 x 5.3 cm US/US right upper quadrant IMPRESSION: 1. Cholelithiasis: Multiple large stones within noninflamed gallbladder, and debris filling the gallbladder, likely sludge. 2. Nonspecific 2.1 cm area which appears to represent soft tissue within mid body of right kidney. Given patient's age malignancy is unlikely, but consider follow-up CT abdomen with and without IV contrast for further evaluation or follow-up ultrasound in 2-3 weeks. Electronically authenticated by: TRISTAN HART Date: 03/08/2023 06:39 Dictated By: Tristan Hart M.D. Signed By: 03/08/2342 DD/ 8 TD/TT: Legal Stenographer: Procedure Note Radiology, Radiologist, MD - 03/08/2023 [place] [address] Ultrasound Report Signed Patient: EDISON POST LMR#: [id number] : 2000Acct:[id number] Age/Sex: 22 / FADM Date: 03/07/23 Loc: LAB Attending Dr: Xin rPo D.O. Ordering Physician: Xin Pro D.O. Date of Service: 03/07/23 Procedure(s): US right upper quadrant Accession Number(s): [id number] cc: Xin Pro D.O.; Physician,Non-Staff Julio The [address] [address] Patient Name: EDISON POST MRN: [id number] date: 2000 Sex: F Assigned Patient Location: LAB Current Patient Location: ED.MAIN Accession/Order Number: [id number] Exam Date: 03/07/2023 15:34 Report Date: 03/08/2023 06:39 At the request of: XIN PRO Procedure: US right upper quadrant EXAMINATION: US right upper quadrant HISTORY: Right Side Upper Quadrant Pain, Gallbladder attack K82.9 COMPARISON: No relevant comparison available. TECHNIQUE: Transabdominal evaluation of the right upper quadrant. FINDINGS: LIVER: Normal size and echotexture. Color Doppler demonstrates patenthepatic veins. PORTAL VEIN: Duplex Doppler demonstrates normal hepatopetal flow patternwith elevated flow velocity averaging 141 cm/s. GALLBLADDER: Contains several large stones, largest is 3.2 cm. Gallbladderis filled with dense material/sludge. No abnormal wall thickening or freefluid. BILIARY: No abnormal dilation or stones. Common bile duct diameter iswithin normal limits. PANCREASE: No visible mass, abnormal atrophy, or duct dilation. KIDNEY: Avascular area of soft tissue echogenicity within mid body ofkidney, 2.1 cm in diameter. No cortical thinning, stones, free fluid. Size: 11.8 x5.9 x 5.3 cm US/US right upper quadrant IMPRESSION: 1. Cholelithiasis: Multiple large stones within noninflamed gallbladder,and debris filling the gallbladder, likely sludge. 2. Nonspecific 2.1 cm area which appears to represent soft tissue withinmid body of right kidney. Given patient's age malignancy is unlikely, butconsider follow-up CT abdomen with and without IV contrast for further evaluationor follow-up ultrasound in 2-3 weeks. Electronically authenticated by: TRISTAN HART Date: 03/08/2023 06:39 Dictated By: Tristan Hart M.D. Signed By:03/08/2342 DD/ TD/TT: Legal Stenographer: us Xin Pro DO [facility] Final Result documented in this encounter Visit Diagnoses Not on filedocumented in this encounter
--- OUTSIDE RECORDS SUMMARY | 2024-10-22 15:10 | XMS_ITS | Encounter Summary ---
Author Organization [facility] Address [address] [facility] [place] [address] Care Team Providers Care Hazardous Waste Technician Name Role Phone Unavailable Primary Care Provider Unavailabl e Encounter Details Date Type Department Care Team (Late Contact Info) Description 09/28/2023 Clinisync Result Encounter [facility] External Department Unsolicited Xin Pro DO [address] [place], [place] [phone] Social History Tobacco Use Types Packs/Day Years [...] Procedure [facility] [address] [place] [phone] 11/19/2024 9:10 AM EDT Office Visit [facility] [address] [place] [phone] Xin Pro DO [address] [place] [address] documented as of this encounter Procedures Procedure Name Priority Date/Time Associated Diagnosis Comments US OB BPP W NON-STRESS 09/28/2023 6:27 AM EDT documented in this encounter Results * US OB BPP W NON-STRESS (09/28/2023 6:27 AM EDT) Anatomical Region Laterality Modality Other 09/28/2023 6:27 AM EDT Narrative 09/28/2023 6:30 [place] [address] Ultrasound Report Signed Patient: EDISON POST MR#: [id number] : 2000 Acct:[id number] Age/Sex: 23 / F ADM Date: 09/27/23 Loc: [facility] 258-[address]: Xin Pro D.O. Ordering Physician: Xin Pro D.O. Date of Service: 09/27/23 Procedure(s): US OB BPP w non-stress Accession Number(s): [id number] cc: Xin Pro D.O.; Physician,Non-Staff [address] [place] [address] Patient Name: EDISON POST MRN: [id number] date: 2000 Sex: F Assigned Patient Location: [facility] Current Patient Location: [facility] Accession/Order Number: [id number] Exam Date: 09/27/2023 18:43 Report Date: 09/28/2023 06:27 At the request of: XIN PRO Procedure: US OB BPP w non-stress EXAMINATION: US OB BPP w non-stress HISTORY: EXCESSIVE GROWTH AFFECTING O36.63X0 COMPARISON: No relevant comparison available. TECHNIQUE: Ultrasound biophysical profile was performed in the radiology department. BREATHING MOVEMENTS: 2 GROSS BODY MOVEMENTS: 2 TONE: 2 QUALITATIVE AMNIOTIC FLUID VOLUME: 2 PRESENTATION: Cephalic HEART RATE: 133 bpm. AMNIOTIC FLUID VOLUME: 15.8 cm GESTATIONAL AGE: 34 weeks 5 days CONCLUSION: 1. Total biophysical profile score 8. 2. A few fluid-filled loops of bowel. Consider follow-up. Electronically authenticated by: TRISTAN HART Date: 09/28/2023 06:27 Dictated By: Tristan Hart M.D. Signed By: 09/28/23629 DD/ 6 TD/TT: Shot Core Drill Operator: Procedure Note Radiology, Radiologist, - 09/28/2023 [place] [address] Ultrasound Report Signed Patient: EDISON POST LMR#: [id number] : 2000Acct:[id number] Age/Sex: 23 / FADM Date: 09/27/23 Loc: [facility] 258-[address]: Xin Pro D.O. Ordering Physician: Xin Pro D.O. Date of Service: 09/27/23 Procedure(s): US OB BPP w non-stress Accession Number(s): [id number] cc: Xin Pro D.O.; Physician,Non-Staff Julio The [place] [address] Patient Name: EDISON POST MRN: [facility]:[id number] date: 2000 Sex: F Assigned Patient Location: [facility] Current Patient Location: [facility] Accession/Order Number: [id number] Exam Date: 09/27/2023 18:43 Report Date: 09/28/2023 06:27 At the request of: XIN PRO Procedure: US OB BPP w non-stress EXAMINATION: US OB BPP w non-stress HISTORY: EXCESSIVE GROWTH AFFECTING O36.63X0 COMPARISON: No relevant comparison available. TECHNIQUE: Ultrasound biophysical profile was performed in the radiology department. BREATHING MOVEMENTS: 2 GROSS BODY MOVEMENTS: 2 TONE: 2 QUALITATIVE AMNIOTIC FLUID VOLUME: 2 PRESENTATION: Cephalic HEART RATE: 133 bpm. AMNIOTIC FLUID VOLUME: 15.8 cm GESTATIONAL AGE: 34 weeks 5 days CONCLUSION: 1. Total biophysical profile score 8. 2. A few fluid-filled loops of bowel. Consider follow-up. Electronically authenticated by: TRISTAN HART Date: 09/28/2023 06:27 Dictated By: Tristan Hart M.D. Signed By:09/28/2330 DD/ 6 TD/TT: Shot Core Drill Operator: us Xin Pro DO [facility] Final Result documented in this encounter Visit Diagnoses Not on filedocumented in this encounter
--- OUTSIDE RECORDS SUMMARY | 2024-10-22 15:10 | XMS_ITS | Encounter Summary ---
Author Organization [facility] Address [address] [facility] [place] [address] Care Team Providers Care Business Project Analyst Name Role Phone Unavailable Primary Care Provider Unavailabl e Encounter Details Date Type Department Care Team (Late Contact Info) Description 10/05/2023 Clinisync Result Encounter [facility] External Department Unsolicited Xin Pro DO [address] [place], [place] [phone] Social History Tobacco Use Types Packs/Day Years [...] Procedure [facility] [address] [place] [phone] 11/19/2024 9:10 AM EDT Office Visit [facility] [address] [place] [phone] Xin Pro DO [address] [place] [address] documented as of this encounter Procedures Procedure Name Priority Date/Time Associated Diagnosis Comments US OB BPP W NON-STRESS 10/05/2023 7:10 AM EDT documented in this encounter Results * US OB BPP W NON-STRESS (10/05/2023 7:10 AM EDT) Anatomical Region Laterality Modality Other 10/05/2023 7:10 AM EDT Narrative 10/05/2023 7:12 [place] [address] Ultrasound Report Signed Patient: EDISON POST MR#: [id number] : 2000 Acct:[id number] Age/Sex: 23 / F ADM Date: 10/04/23 Loc: US Attending Dr: Xin Pro D.O. Ordering Physician: Xin Pro D.O. Date of Service: 10/04/23 Procedure(s): US OB BPP w non-stress Accession Number(s): [id number] cc: Xin Pro D.O.; Physician,Non-Staff M.DSheila The [place] [address] Patient Name: EDISON POST MRN: [id number] date: 2000 Sex: F Assigned Patient Location: [facility] Current Patient Location: Accession/Order Number: [id number] Exam Date: 10/04/2023 18:43 Report Date: 10/05/2023 07:10 At the request of: XIN PRO Procedure: US OB BPP w non-stress EXAMINATION: US OB BPP w non-stress HISTORY: EXCESSIVE GROWTH AFFECTING O36.63X0 COMPARISON: No relevant comparison available. TECHNIQUE: Ultrasound biophysical profile was performed in the radiology department. non-reactive stress testing was performed by nursing staff in the birthing center. FINDINGS: BREATHING MOVEMENTS: 2 GROSS BODY MOVEMENTS: 2 TONE: 2 QUALITATIVE AMNIOTIC FLUID VOLUME: 2 PRESENTATION: CEPHALIC HEART RATE: 143.62 bpm AMNIOTIC FLUID VOLUME: 17.5 GESTATIONAL AGE: 35 weeks 5 days US/US OB BPP w non-stress IMPRESSION: Total biophysical profile score: 8 Electronically authenticated by: DONALD AGUILAR Date: 10/05/2023 07:10 Dictated By: Donald Aguilar M.D. Signed By: 10/05/23711 DD/ 9 TD/TT: Pharmacy Care Coordinator: Procedure Note Radiology, Radiologist, MD - 10/05/2023 The [place] [id number] Ultrasound Report Signed Patient: EDISON POST LMR#: [id number] : 2000Acct:[id number] Age/Sex: 23 / FADM Date: 10/04/23 Loc: US Attending Dr: Xin Pro D.O. Ordering Physician: Xin Pro D.O. Date of Service: 10/04/23 Procedure(s): US OB BPP w non-stress Accession Number(s): [id number] cc: Xin Pro D.O.; Physician,Non-Staff Julio The [address] [address] Patient Name: EDISON POST MRN: [facility]:[id number] date: 2000 Sex: F Assigned Patient Location: [facility] Current Patient Location: Accession/Order Number: [id number] Exam Date: 10/04/2023 18:43 Report Date: 10/05/2023 07:10 At the request of: XIN PRO Procedure: US OB BPP w non-stress EXAMINATION: US OB BPP w non-stress HISTORY: EXCESSIVE GROWTH AFFECTING O36.63X0 COMPARISON: No relevant comparison available. TECHNIQUE: Ultrasound biophysical profile was performed in the radiology department. non-reactive stress testing was performed by nursingstaff in the birthing center. FINDINGS: BREATHING MOVEMENTS: 2 GROSS BODY MOVEMENTS: 2 TONE: 2 QUALITATIVE AMNIOTIC FLUID VOLUME: 2 PRESENTATION: CEPHALIC HEART RATE: 143.62 bpm AMNIOTIC FLUID VOLUME: 17.5 GESTATIONAL AGE: 35 weeks 5 days US/US OB BPP w non-stress IMPRESSION: Total biophysical profile score: 8 Electronically authenticated by: DONALD AGUILAR Date: 10/05/2023 07:10 Dictated By: Donald Aguilar M.D. Signed By:10/05/23711 DD/ 9 TD/TT: Pharmacy Care Coordinator: us Xin Mendozao DO [facility] Final Result documented in this encounter Visit Diagnoses Not on filedocumented in this encounter
--- OUTSIDE RECORDS SUMMARY | 2024-10-22 15:10 | XMS_ITS | Encounter Summary ---
Author Organization [facility] Address [address] [place] [address] Care Team Providers Care Glue Jointer Feeder Name Role Phone Unavailable Primary Care Provider Unavailabl e Encounter Details Date Type Department Care Team (Late Contact Info) Description 07/10/2023 Clinisync Result Encounter [facility] External Department Unsolicited Xin Pro DO [address] [place], [place] [phone] Social History Tobacco Use Types Packs/Day Years [...] Procedure [facility] [address] [place] [phone] 11/19/2024 9:10 AM EDT Office Visit [facility] [address] [place] [phone] Xin Pro DO [address] [place] [address] documented as of this encounter Procedures Procedure Name Priority Date/Time Associated Diagnosis Comments US OB INCOMPLETE ANATOMY 07/10/2023 9:57 AM EDT documented in this encounter Results * US OB INCOMPLETE ANATOMY (07/10/2023 9:57 AM EDT) Anatomical Region Laterality Modality Other 07/10/2023 9:57 AM EDT Narrative 07/10/2023 9:59 [place] [address] Ultrasound Report Signed Patient: EDISON POST MR#: [id number] : 2000 Acct:[id number] Age/Sex: 23 / F ADM Date: 07/10/23 Loc: [facility] Attending Dr: Xin Pro D.O. Ordering Physician: Xin Pro D.O. Date of Service: 07/10/23 Procedure(s): US OB incomplete anatomy Accession Number(s): [id number] cc: Xin Pro D.O.; Physician,Non-Staff M.DSheila [address] [address] Patient Name: EDISON POST MRN: [id number] date: 2000 Sex: F Assigned Patient Location: [facility] Current Patient Location: [facility] Accession/Order Number: [id number] Exam Date: 07/10/2023 09:06 Report Date: 07/10/2023 09:57 At the request of: XIN PRO Procedure: US OB incomplete anatomy EXAM: US OB incomplete anatomy, US OB amniotic fluid vol HISTORY: Follow-up ultrasound of anatomy Z36.2 COMPARISON: Ultrasound OB anatomy 06/19/2023 TECHNIQUE: Transabdominal ultrasound FINDINGS: Presentation: Breech Heart rate: 136 bpm Amniotic fluid: 11.5 cm (5th percentile is 9.8 cm); largest pocket is 4.0 cm. Anatomy: Adequate visualization of three-vessel cord and hard palate. GA: 23 weeks 0 days LILIAN: 11/06/2023 US/US OB incomplete anatomy IMPRESSION: 1. Single live intrauterine . 2. Normal amniotic fluid volume, but on the lower end. 3. Adequate visualization with no appreciable abnormality of the three-vessel cord and hard palate. Electronically authenticated by: TRISTAN HART Date: 07/10/2023 09:57 Dictated By: Tristan Hart M.D. Signed By: 07/10/23 0959 DD/ TD/TT: Special Education Administrator: Procedure Note Radiology, Radiologist, MD - 07/13/2023 [place] [address] Ultrasound Report Signed Patient: EDISON POST LMR#: [id number] : 2000Acct:[id number] Age/Sex: 23 / FADM Date: 07/10/23 Loc: [facility] Attending Dr: Xin Pro D.O. Ordering Physician: Xin Pro D.O. Date of Service: 07/10/23 Procedure(s): US OB incomplete anatomy Accession Number(s): [id number] cc: Xin Pro D.O.; Physician,Non-Staff Julio The [place] [address] Patient Name: EDISON POST MRN: [id number] date: 2000 Sex: F Assigned Patient Location: [facility] Current Patient Location: [facility] Accession/Order Number: [id number] Exam Date: 07/10/2023 09:06 Report Date: 07/10/2023 09:57 At the request of: XIN PRO Procedure: US OB incomplete anatomy EXAM: US OB incomplete anatomy, US OB amniotic fluid vol HISTORY: Follow-up ultrasound of anatomy Z36.2 COMPARISON: Ultrasound OB anatomy 06/19/2023 TECHNIQUE: Transabdominal ultrasound FINDINGS: Presentation: Breech Heart rate: 136 bpm Amniotic fluid: 11.5 cm (5th percentile is 9.8 cm); largest pocket is 4.0cm. Anatomy: Adequate visualization of three-vessel cord and hard palate. GA: 23 weeks 0 days LILIAN: 11/06/2023 US/US OB incomplete anatomy IMPRESSION: 1. Single live intrauterine . 2. Normal amniotic fluid volume, but on the lower end. 3. Adequate visualization with no appreciable abnormality of thethree-vessel cord and hard palate. Electronically authenticated by: TRISTAN HART Date: 07/10/2023 09:57 Dictated By: Tristan Hart M.D. Signed By:07/10/2359 DD/ TD/TT: Special Education Administrator: us Xin Morteza DO [facility] Final Result documented in this encounter Visit Diagnoses Not on filedocumented in this encounter
--- OUTSIDE RECORDS SUMMARY | 2024-10-22 15:10 | XMS_ITS | Encounter Summary ---
Author Organization [facility] Address [address] [place] [address] Care Team Providers Care Choke Setter Name Role Phone Unavailable Primary Care Provider Unavailabl e Encounter Details Date Type Department Care Team (Late Contact Info) Description 10/12/2023 Clinisync Result Encounter [facility] Department Unsolicited Xin Pro DO [address] [place], [place] [id number] Social History Tobacco Use Types Packs/Day Years [...] Procedure [facility] [address] [place] [phone] 11/19/2024 9:10 AM EDT Office Visit [facility] [address] [place] [id number] Xin Pro DO [address] [place] [address] documented as of this encounter Procedures Procedure Name Priority Date/Time Associated Diagnosis Comments US OB BPP W NON-STRESS 10/12/2023 6:30 AM EDT documented in this encounter Results * US OB BPP W NON-STRESS (10/12/2023 6:30 AM EDT) Anatomical Region Laterality Modality Other 10/12/2023 6:30 AM EDT Narrative 10/12/2023 6:32 [place] [address] Ultrasound Report Signed Patient: EDISON POST MR#: [id number] : 2000 Acct:[id number] Age/Sex: 23 / F ADM Date: 10/11/23 Loc: US Attending Dr: Xin Pro D.O. Ordering Physician: Xin Pro D.O. Date of Service: 10/11/23 Procedure(s): US OB BPP w non-stress Accession Number(s): [id number] cc: Xin Pro D.O.; Physician,Non-Staff M.DSheila [place] [address] Patient Name: DEISON POST MRN: [id number] date: 2000 Sex: F Assigned Patient Location: [facility] Current Patient Location: Accession/Order Number: [id number] Exam Date: 10/11/2023 17:09 Report Date: 10/12/2023 06:30 At the request of: XIN PRO Procedure: US OB BPP w non-stress EXAMINATION: US OB BPP w non-stress HISTORY:EXCESSIVE GROWTH AFFECTING [id number] COMPARISON: No relevant comparison available. TECHNIQUE: Ultrasound biophysical profile was performed in the radiology department. BREATHING MOVEMENTS: 2 GROSS BODY MOVEMENTS: 2 TONE: 2 QUALITATIVE AMNIOTIC FLUID VOLUME: 2 PRESENTATION: CEPHALIC HEART RATE: 130.12 bpm AMNIOTIC FLUID VOLUME: 16.38 cm GESTATIONAL AGE: 89 Day US/US OB BPP w non-stress IMPRESSION: Total biophysical profile score: 8 Electronically authenticated by: TRISTAN HART Date: 10/12/2023 06:30 Dictated By: Tristan Hart M.D. Signed By: 10/12/23631 DD/ 9 TD/TT: Band Booker: Procedure Note Radiology, Radiologist, - 10/12/2023 [place] [address] Ultrasound Report Signed Patient: EDISON POST LMR#: [id number] : 2000Acct:[id number] Age/Sex: 23 / FADM Date: 10/11/23 Loc: US Attending Dr: Xin Pro D.O. Ordering Physician: Xin Pro D.O. Date of Service: 10/11/23 Procedure(s): US OB BPP w non-stress Accession Number(s): [id number] cc: Xin Pro D.O.; Physician,Non-Staff Julio [address] [place] [address] Patient Name: EDISON POST MRN: [facility] [place]:[id number] date: 2000 Sex: F Assigned Patient Location: [facility] Current Patient Location: Accession/Order Number: [id number] Exam Date: 10/11/2023 17:09 Report Date: 10/12/2023 06:30 At the request of: XIN PRO Procedure: US OB BPP w non-stress EXAMINATION: US OB BPP w non-stress HISTORY:EXCESSIVE GROWTH AFFECTING [id number] COMPARISON: No relevant comparison available. TECHNIQUE: Ultrasound biophysical profile was performed in the radiology department. BREATHING MOVEMENTS: 2 GROSS BODY MOVEMENTS: 2 TONE: 2 QUALITATIVE AMNIOTIC FLUID VOLUME: 2 PRESENTATION: CEPHALIC HEART RATE: 130.12 bpm AMNIOTIC FLUID VOLUME: 16.38 cm GESTATIONAL AGE: 89 Day US/US OB BPP w non-stress IMPRESSION: Total biophysical profile score: 8 Electronically authenticated by: TRISTAN HART Date: 10/12/2023 06:30 Dictated By: Tristan Hart M.D. Signed By:10/12/2332 DD/ TD/TT: Band Booker: us Xin Pro DO [facility] Final Result documented in this encounter Visit Diagnoses Not on filedocumented in this encounter
[2024-10-22 15:27] LABS: Hematocrit 42.9 % (36.0-48.0); Hemoglobin 15.0 g/dL (12.0-16.0); Immature Granulocytes Abs Auto 0.03 10^3/uL (0.00-0.03); Immature Granulocytes Pct Auto 0.3 % (0.0-0.5); Lymphocytes Absolute Auto 2.9 10^3/uL (1.2-3.8); Mean Corpuscular HGB Conc 35.0 g/dL (29.9-35.2); Mean Corpuscular Hemoglobin 30.4 pg (26.7-34.0); Mean Corpuscular Volume 86.8 fL (81.0-99.0); Platelet Count 244 10^3/uL (150-450); Red Blood Count 4.94 10^6/uL (4.20-5.40); White Blood Count 10.8 10^3/uL (4.0-11.0)
[2024-10-22 15:53] LABS: Thyroid Stimulating Hormone 0.889 uIU/mL (0.358-3.740)
[2024-10-23 04:07] LABS: FSH 5.1 mIU/mL (.)
== END 2024-10-22 15:03 | disposition home or self-care (01) ==
PROVIDERS: Visit Provider Obstetrics & Gynecology
DX: Z01.419 Encounter for gynecological examination (general) (routine) without abnormal findings (principal); E28.2 Polycystic ovarian syndrome; N92.0 Excessive and frequent menstruation with regular cycle
CPT/HCPCS: 36415; 82626; 82627; 83001; 83002; 83036; 84439; 84443; 84702; 85025; 88175

== ENCOUNTER 2024-10-22 19:41 | Outpatient (REF) | payer OTHER, SELFPAY ==
--- OUTSIDE RECORDS SUMMARY | 2024-10-22 20:04 | XMS_ITS | CCD ---
Author Organization [facility] Care Team Providers Care [employer] Architect Name Role Phone Darien, Dickson W Unavailable Unavailable Galdino, Dickson W Unavailable Unavailable No Doctor Assigned, Nodr Unavailable Unavail able Galdino, Dickson W Unavailable Unavailable Galdino, Dickson W Unavailable Unavailable No Doctor Assigned, Nodr Unavailable Unavail able SHEMAR ., STEFAN Admitting Unavailable SHEMAR ., STEFAN Consulting Unavailable AICHHOLZ, TOOL GRINDER OPERATOR SUPRIYA Primary Care Unavailable SHEMAR ., STEFAN Attending Unavailable MORTEZA ., DR LAUREN Admitting Unavailable SHEMAR ., STEFAN Consulting Unavailable AICHHOLZ, TOOL GRINDER OPERATOR SUPRIYA Primary Care Unavailable MORTEZA ., DR LAUREN Attending Unavailable SHEMAR ., STEFAN Admitting Unavailable SHEMAR ., STEFAN Consulting Unavailable SHEMAR ., STEFAN Attending Unavailable AICHHOLZ, TOOL GRINDER OPERATOR SUPRIYA Primary Care Unavailable AICHHOLZ, TOOL GRINDER OPERATOR SUPRIYA Primary Care Unavailable MORTEZA ., DR LAUREN Attending Unavailable MORTEZA ., DR LAUREN Admitting Unavailable MORTEZA ., DR LAUREN Admitting Unavailable MORTEZA ., DR LAUREN Attending Unavailable AICHHOLZ, TOOL GRINDER OPERATOR SUPRIYA Primary Care Unavailable MORTEZA ., DR LAUREN Consulting Unavailable KARASIK ., DR MURPHY Attending Unavailabl e AICHHOLZ, TOOL GRINDER OPERATOR SUPRIYA Primary Care Unavailable KARASIK ., [...] MORTEZA ., DR LAUREN Consulting Unavailable AICHHOLZ, TOOL GRINDER OPERATOR SUPRIYA Primary Care Unavailable MORTEZA ., DR LAUREN Attending Unavailable Souleymaneer, Tristan Consulting Unavailable MORTEZA ., DR LAUREN Consulting Unavailable REQUEST, DR NONE LISTED Primary Care Unavaila ble MORTEZA ., DR LAUREN Attending Unavailable MORTEZA ., DR LAUREN Admitting Unavailable Zieber, Tristan Consulting Unavailable MORTEZA ., DR LAUREN Admitting Unavailable AICHHOLZ, TOOL GRINDER OPERATOR SUPRIYA Primary Care Unavailable MORTEZA ., DR LAUREN Attending Unavailable ALVIN, DR DONALD Bryan Consulting Unavailable MORTEZA ., DR LAUREN Consulting Unavailable MORTEZA ., DR LAUREN Admitting Unavailable AICHHOLZ, TOOL GRINDER OPERATOR SUPRIYA Primary Care Unavailable MORTEZA ., DR LAUREN Attending Unavailable MORTEZA ., DR LAUREN Consulting Unavailable SHEMAR ., STEFAN Attending Unavailable SHEMAR ., STEFAN Admitting Unavailable Zieber, Tristan Consulting Unavailable REQUEST, DR NONE LISTED Primary Care Unavaila ble SHEMAR ., STEFAN Consulting Unavailable MORTEZA ., DR LAUREN Admitting Unavailable MORTEZA ., DR LAUREN Consulting Unavailable MORTEZA ., DR LAUREN Attending Unavailable AICHHOLZ, TOOL GRINDER OPERATOR SUPRIYA Primary Care Unavailable Aichholz, Supriya J Primary Care Provider MD Jacky Alarcon Emergency Provider [phone] Jacky Alarcon Attending Unavailable Jacky Alarcon Admitting Unavailable Aichholz, Supriya J Primary Care Unavailable Unavailable Primary Care Provider Unavailabl e [...] PRO Attending Unavailable XIN PRO Attending Unavailable MORTEZAXIN Attending Unavailable STEFAN STATON Attending Unavailable XIN PRO Attending Unavailable XIN PRO Attending Unavailable STEFAN STATON Attending Unavailable XIN PRO Attending Unavailable XIN PRO Attending Unavailable XIN PRO Attending Unavailable MORTEZA, XIN Attending Unavailable STEFAN STATON Attending Unavailable ERIS ROMERO Attending Unavailable Supriya Galindo Primary Care Provider Allergies Allergy Classification Reported Allergen(s) Allergy Type Date of Onset Reaction(s) Facility (1 source) No Known Medication Allergies; Translations: [No Known Medication Allergies] Propensity to adverse reactions to drug (disorder) [facility] Repository Medications Current Medications Medication Drug [...] / zinc oxide 20 mg oral tablet (6 sources) Vitamin B12, Vitamin D, Vitamin C take 1 tablet by mouth in the morning Vit-DSS-Fe Fum-FA ( 19) tablet Take 1 mg by mouth in the morning. Active cephalexin 500 mg oral capsule (1 [...] days 30 capsule 5 05/08/2023 05/18/2023 Active 21 day ethinyl estradiol 0.041151 mg/hr / etonogestrel 0.005 mg/hr vaginal system (4 sources) Progestin, Estrogen Start: 11-27-2023 etonogestrel-ethiny l estradiol (NuvaRing) 0.12-0.015 MG/24HR vaginal ring Indications: Encounter for initial prescription of vaginal ring hormonal contraceptive Insert vaginally and leave in place for 21 consecutive days (3 weeks), then remove. Wait for 7 days before inserting new ring. 1 each 12 11/27/2023 Active ondansetron 4 mg disintegrating oral tablet [...] MG PO Q6H March 10, 2023 12:00am sulfamethoxazole 800 mg / trimethoprim 160 mg oral tablet (1 source) Dihydrofolate Reductase Inhibitor Antibacterial, Sulfonamide Antimicrobial Start: 10-22-2024 End: 10-29-2024 take 1 tablet by mouth once in the morning, then take 1 tablet by mouth once at bedtime sulfamethoxazole-tr imethoprim (Bactrim DS) 800-160 MG per tablet Indications: UTI symptoms Take 1 tablet by mouth in the morning and 1 tablet before bedtime. Do all this for 7 days. 14 tablet 10/22/2024 10/29/2024 Active Problems Active Problems Problem Classification Problem Date [...] sexual mode of transmission] Onset: 02-17-2022 Episodic Inflammation; infection of eye (except that caused by tuberculosis or sexually transmitteddisease) (2 sources) Allergic conjunctivitis of bilateral eyes; Translations: [Acute atopic conjunctivitis, bilateral] 12-04-2023 Episodic Other female genital disorders (1 source) Other specified noninflammatory disorders of vagina; Translations: [OT SPEC NONINFLAMMATORY D/O VAGINA] Onset: 05-12-2022 Episodic Other injuries and conditions due to external causes (1 source) Encounter for examination and observation following other accident; Translations: [ENC EXAM AND OBSERVATION FOLLOW [facility]] Onset: 05-11-2022 Episodic Other injuries and [...] CBC WITH AUTO DIFFon BASOPHILS ABSOLUTE AUTO 0 [facility] Basophils/100 WBC (Bld) 0.4 % 0.2 - 2.0 % [facility] Eosinophils/100 WBC (Bld) 4.3 % 0.9 - 7.0 % [facility] Erythrocyte distribution width (RBC) [Ratio] 11.9 % 11.0 - 15.0 % [facility] Hematocrit (Bld) [Volume fraction] 42.9 % 36.0 - 48.0 % [facility] Hemoglobin (Bld) [Mass/Vol] 15 g/dL 12.0 - 16.0 g/dL [facility] IMMATURE GRANULOCYTES ABS AUTO 0.03 [facility] Immature granulocytes/100 WBC (Bld) 0.3 % 0.0 - 0.5 % [facility] Interpretation and review of laboratory results Abnormal [facility] LYMPHOCYTES ABSOLUTE AUTO 2.9 [facility] Lymphocytes/100 WBC (Bld) 27 % 20.5 - 60.0 % [facility] MCH (RBC) [Entitic mass] 30.4 pg 26.7 - 34.0 pg [facility] MCHC (RBC) [Mass/Vol] 35 g/dL 29.9 - 35.2 g/dL [facility] MCV (RBC) [Entitic vol] 86.8 fL 81.0 - 99.0 fL [facility] MONOCYTES ABSOLUTE AUTO 0.7 [facility] Monocytes/100 WBC (Bld) 6.4 % 1.7 - 12.0 % [facility] NEUTROPHILS ABSOLUTE AUTO 6.7 High [facility] Neutrophils/100 WBC (Bld) 61.6 % 43.0 - 75.0 % [facility] Platelet mean volume (Bld) [Entitic vol] 10.7 fL 9.5 - 13.5 fL [facility] EO # 0.5 [facility] PLT 244 [facility] RBC 4.94 [facility] WBC 10.8 [facility] ALL CBC WITH AUTO DIFFon BASOPHILS ABSOLUTE AUTO 0.0 [facility] Basophils/100 WBC (Bld) 0.3 % 0.2 - 2.0 % [facility] Eosinophils/100 WBC (Bld) 2.0 % 0.9 - 7.0 % [facility] Erythrocyte distribution width (RBC) [Ratio] 12.8 % 11.0 - 15.0 % [facility] Hematocrit (Bld) [Volume fraction] 39.3 % 36.0 - 48.0 % [facility] Hemoglobin (Bld) [Mass/Vol] 14.1 g/dL 12.0 - 16.0 g/dL [facility] IMMATURE GRANULOCYTES ABS AUTO 0.07 High [facility] Immature granulocytes/100 WBC (Bld) 0.7 % High 0.0 - 0.5 % [facility] Interpretation and review of laboratory results Abnormal [facility] LYMPHOCYTES ABSOLUTE AUTO 2.0 [facility] Lymphocytes/100 WBC (Bld) 19.1 % Low 20.5 - 60.0 % [facility] MCH (RBC) [Entitic mass] 32.0 pg 26.7 - 34.0 pg [facility] MCHC (RBC) [Mass/Vol] 35.9 g/dL High 29.9 - 35.2 g/dL [facility] MCV (RBC) [Entitic vol] 89.3 fL 81.0 - 99.0 fL [facility] MONOCYTES ABSOLUTE AUTO 0.5 [facility] Monocytes/100 WBC (Bld) 4.7 % 1.7 - 12.0 % [facility] NEUTROPHILS ABSOLUTE AUTO 7.6 High [facility] Neutrophils/100 WBC (Bld) 73.2 % 43.0 - 75.0 % [facility] Platelet mean volume (Bld) [Entitic vol] 11.4 fL 9.5 - 13.5 fL [facility] EO # 0.2 [facility] PLT 218 [facility] RBC 4.40 [facility] WBC 10.4 [facility] Surgical Pathologyon 024 Surgical Pathology Normal [facility] Comment on above: Result Comment: [facility] [address] [place] [address] Surgical Pathology Consultation Patient Name:DARY ASHLEY:2000 (Age: 23)Gender:FTaken:4Reported:4Physician(s):GERSON Kelsey To: Rec. #:[id number]: #[id number] Final Pathologic Diagnosis Gallbladder, cholecystectomy: Chronic cholecystitis with organizing hemorrhage and fibroblast proliferation involving gallbladder wall, accompanied by extensive mucosal erosion with reactive changes, and focal ceroid granulomas. No evidence of malignancy or dysplasia. Cholelithiasis. Report Electronically Signed Out ao/4Aolamide Moreno MD Interpretation performed at [facility], [address] [place] [address], License number: [id number]. Clinical History Cholelithiasis. Gross Description Received in [...] congested, hemorrhagic and velvety in the neck. Auxiliary Operator sections are submitted in cassettes A- B, as: A- cystic duct margin and provider relations representative ragged defects,B- provider relations representative neck body and fundus. After initial microscopic evaluation, additional sections are submitted in cassettes C-E. (5,ss,[id number], m6) MARYJANE/ mxw/05/04/2023SSI Specimen(s) Received Gallbladder Fee Codes(s): 1; 50336 US gall bladderon 03-11-2023 US gall bladder [facility] [place] [address] Ultrasound Report Signed Patient: Dary Ashley MR#: [id number] : 2000 Acct:[id number] Age/Sex: 22 / F ADM Date: 03/10/23 Loc: ER Room: Type: [facility] ER Attending Dr: Ordering Provider: [...] Nataliia Scott M.D.03/11/2023 8:10 AM Dictation Location: [place] [address] Tech: Isi Federico Transcribed By: RONI 03/11/23 0810 Dictated By: Nataliia Scott MD 03/11/23 0807 Signed By: 03/11/23 0810 Normal [facility] Alanine aminotransferase [En zymatic activity/volume] in Serum or PlasmaOrdered By: Jacky Alarcon on 03-10-2023 ALT [Catalytic activity/Vol] 36 U/L 7-52 [facility] Albumin [Mass/volume] in Ser um or Plasma by Bromocresol green (BCG) dye binding methoOrdered By: Jacky Alarcon on 03-10-2023 Albumin BCG dye [Mass/Vol] 4.5 g/dL 3.5-5.7 [facility] Alkaline phosphatase [Enzyma tic activity/volume] in Serum or PlasmaOrdered By: Jacky Alarcon on 03-10-2023 ALP [Catalytic activity/Vol] 71 U/L 34-104 [facility] Aspartate aminotransferase [ Enzymatic activity/volume] in Serum or PlasmaOrdered By: Jacky Alarcon on 03-10-2023 AST [Catalytic activity/Vol] 17 U/L 13-39 [facility] Automated erythrocytes count in urine sediment (number/area)Ordered By: Jacky Alarcon on 03-10-2023 RBC Auto (Urine sed) [#/Area] 50-100 [HPF] 0-4 [facility] Automated leukocytes count i n urine sediment (number/area)Ordered By: Jacky Alarcon on 03-10-2023 WBC Auto (Urine sed) [#/Area] 5-9 [HPF] 0-4 [facility] Basic Metabolic Panelon Anion gap [Moles/Vol] 16.5 mmol/L High 6.0-15.0 [facility] Comment on above: Performed By: #### L IPASE, HCGQNT, HEPATIC, BMP, CBC #### [facility] [address] [place] [address] [place] Calcium [Mass/Vol] 9.3 mg/dL Normal 8.6-10.3 [facility] Comment on above: Performed By: #### L IPASE, HCGQNT, HEPATIC, BMP, CBC #### [facility] [address] [place] [address] [place] Chloride [Moles/Vol] 101 mmol/L Normal 98-107 [facility] Comment on above: Performed By: #### L IPASE, HCGQNT, HEPATIC, BMP, CBC #### [facility] [address] [place] [id number] [place] CO2 [Moles/Vol] 18.8 mmol/L Low 21.0-31.0 [facility] Comment on above: Performed By: #### L IPASE, HCGQNT, HEPATIC, BMP, CBC #### [facility] [address] Creatinine [Mass/Vol] 0.64 mg/dL Normal 0.60-1.20 [facility] Comment on above: Performed By: #### L IPASE, HCGQNT, HEPATIC, BMP, CBC #### [facility] [address] [place] [address] [place] Creatinine Clr Calc Pharmacy 148.58 [facility] Comment on above: Performed By: #### L IPASE, HCGQNT, HEPATIC, BMP, CBC #### [address] GFR/1.73 sq M.predicted MDRD (S/P/Bld) [Vol rate/Area] mL/min/{1.73_m2} [facility] Comment on above: Performed By: #### L IPASE, HCGQNT, HEPATIC, BMP, CBC #### [address] Glucose [Mass/Vol] 83 mg/dL Normal 70-100 [facility] Comment on above: Result Comment: [facility] Glucose Reference Range is dependent on time and content of last meal. Glucose of more than 200 mg/dL in a nonstressed, ambulatory subject supports the diagnosis of Diabetes Mellitus. ADA recommended reference range Performed By: #### L IPASE, HCGQNT, HEPATIC, BMP, CBC #### [address] Potassium [Moles/Vol] 3.3 mmol/L Low 3.5-5.1 [facility] Comment on above: Performed By: #### L IPASE, HCGQNT, HEPATIC, BMP, CBC #### [address] Sodium [Moles/Vol] 133 mmol/L Low 136-145 [facility] Comment on above: Performed By: #### L IPASE, HCGQNT, HEPATIC, BMP, CBC #### [address] Urea nitrogen [Mass/Vol] 6 mg/dL Low 7-25 [facility] Comment on above: Performed By: #### L IPASE, HCGQNT, HEPATIC, BMP, CBC #### [facility] [address] Basophils Auto (Bld) [#/Vol] Ordered By: Jacky Alarcon on 03-10-2023 Basophils (Bld) [#/Vol] 0.1 10*3/uL 0.0-0.2 [facility] Basophils/100 WBC Auto (Bld) Ordered By: Jacky Alarcon on 03-10-2023 Basophils/100 WBC (Bld) 0.4 % . [facility] Bilirubin Test strip Ql (U)O rdered By: Jacky Alarcon on 03-10-2023 Bilirubin Ql (U) Negative Negative [facility] Bilirubin.direct [Mass/volum e] in Serum or PlasmaOrdered By: Jacky Alarcon on 03-10-2023 Bilirubin.direct [Mass/Vol] 0.40 mg/dL 0.03-0.18 [facility] Bilirubin.total [Mass/volume ] in Serum or PlasmaOrdered By: Jacky Alarcon on 03-10-2023 Bilirubin [Mass/Vol] 1.2 mg/dL 0.3-1.0 [facility] Calcium [Mass/volume] in Ser um or PlasmaOrdered By: Jacky Alarcon on 03-10-2023 Calcium [Mass/Vol] 9.3 mg/dL 8.6-10.3 [facility] Carbon dioxide, total [Moles /volume] in Serum or PlasmaOrdered By: Jacky Alarcon on 03-10-2023 CO2 [Moles/Vol] 18.8 mmol/L 21.0-31.0 [facility] Chloride [Moles/volume] in S rahul or PlasmaOrdered By: Jacky Alarcon on 03-10-2023 Chloride [Moles/Vol] 101 mmol/L 98-107 [facility] Choriogonadotropin.beta subu nit [Units/volume] in Serum or PlasmaOrdered By: Jacky Alarcon on 03-10-2023 [place] [address].00 m[IU]/mL [facility] Comment on above: Approximate Approxim ate hCG Gestational Age Range (mIU/ml) (weeks)0.2-1 5-50 1-2 50-500 2-3 100-5,000 3-4 500-10,000 4-5 1,000-50,000 5-6 10,000-100,000 6-8 15,000-200,000 8-12 10,000-100,000 Color Auto (U)Ordered By: Corinna Alarcon on 03-10-2023 Color (U) Dark yellow Yellow [facility] Complete Blood Count Auto Di ffon 03-10-2023 Basophils (Bld) [#/Vol] 0.1 10*3/uL Normal 0.0-0.2 [facility] Comment on above: Result Comment: PERF ORMED BY: [place] [address] PATHOLOGIST INSURANCE ADVISER ANDRÉS MACEDO M.D. Performed By: #### L IPASE, HCGQNT, HEPATIC, BMP, CBC #### [address] Basophils/100 WBC (Bld) 0.4 % Normal . [facility] Comment on above: Performed By: #### L IPASE, HCGQNT, HEPATIC, BMP, CBC #### [facility] [address] [place] [address] Eosinophils (Bld) [#/Vol] 0.1 10*3/uL Normal 0.0-0.45 [facility] Comment on above: Performed By: #### L IPASE, HCGQNT, HEPATIC, BMP, CBC #### [address] Eosinophils/100 WBC (Bld) 0.5 % Normal . [facility] Comment on above: Performed By: #### L IPASE, HCGQNT, HEPATIC, BMP, CBC #### [address] Erythrocyte distribution width (RBC) [Ratio] 13.3 % Normal 11.9-15.3 [facility] Comment on above: Performed By: #### L IPASE, HCGQNT, HEPATIC, BMP, CBC #### [address] Hematocrit (Bld) [Volume fraction] 47.2 % High 34.0-46.4 [facility] Comment on above: Performed By: #### L IPASE, HCGQNT, HEPATIC, BMP, CBC #### [address] Hemoglobin (Bld) [Mass/Vol] 16.5 g/dL High 11.8-15.4 [facility] Comment on above: Performed By: #### L IPASE, HCGQNT, HEPATIC, BMP, CBC #### [address] Lymphocytes (Bld) [#/Vol] 1.9 10*3/uL Normal 1.00-4.8 [facility] Comment on above: Performed By: #### L IPASE, HCGQNT, HEPATIC, BMP, CBC #### [address] Lymphocytes/100 WBC (Bld) 11.6 % Normal . [facility] Comment on above: Performed By: #### L IPASE, HCGQNT, HEPATIC, BMP, CBC #### [address] MCH (RBC) [Entitic mass] 30.8 pg Normal 24.7-34.3 [facility] Comment on above: Performed By: #### L IPASE, HCGQNT, HEPATIC, BMP, CBC #### [address] MCV (RBC) [Entitic vol] 87.8 fL Normal 80-100 [facility] Comment on above: Performed By: #### L IPASE, HCGQNT, HEPATIC, BMP, CBC #### [address] Mean Corpuscular HGB Conc 35.0 g/dL Normal 32.0-35.0 [facility] Comment on above: Performed By: #### L IPASE, HCGQNT, HEPATIC, BMP, CBC #### [facility] [address] [place] [address] [place] Monocytes (Bld) [#/Vol] 1.4 10*3/uL High 0.0-0.8 [facility] Comment on above: Performed By: #### L IPASE, HCGQNT, HEPATIC, BMP, CBC #### [facility] [address] [place] [address] Monocytes/100 WBC (Bld) 16.05 % Normal 0.00-20.00 [facility] Comment on above: Performed By: #### L IPASE, HCGQNT, HEPATIC, BMP, CBC #### [place] [address] [place] Monocytes/100 WBC (Bld) 8.8 % Normal . [facility] Comment on above: Performed By: #### L IPASE, HCGQNT, HEPATIC, BMP, CBC #### [address] Neutrophils (Bld) [#/Vol] 12.6 10*3/uL High 1.8-7.7 [facility] Comment on above: Performed By: #### L IPASE, HCGQNT, HEPATIC, BMP, CBC #### [address] Neutrophils/100 WBC (Bld) 78.7 % Normal . [facility] Comment on above: Performed By: #### L IPASE, HCGQNT, HEPATIC, BMP, CBC #### [place] [address] [place] NRBC% 0.1 /100{WBC} Normal 0-0.5 [facility] Comment on above: Performed By: #### L IPASE, HCGQNT, HEPATIC, BMP, CBC #### [place] [address] [place] Platelet mean volume (Bld) [Entitic vol] 9.7 fL Normal 6.3-10.7 [facility] Comment on above: Performed By: #### L IPASE, HCGQNT, HEPATIC, BMP, CBC #### [address] [place] [address] [place] Platelets (Bld) [#/Vol] 263 10*3/uL Normal 150-450 [facility] Comment on above: Performed By: #### L IPASE, HCGQNT, HEPATIC, BMP, CBC #### [facility] [address] [place] [address] [place] RBC (Bld) [#/Vol] 5.37 10*6/uL High 3.60-5.00 [facility] Comment on above: Performed By: #### L IPASE, HCGQNT, HEPATIC, BMP, CBC #### [place] [address] [place] WBC (Bld) [#/Vol] 16.0 10*3/uL High 3.8-11.6 [facility] Comment on above: Performed By: #### L IPASE, HCGQNT, HEPATIC, BMP, CBC #### [address] Creatinine [Mass/volume] in Serum or PlasmaOrdered By: Jacky Alarcon on 03-10-2023 Creatinine [Mass/Vol] 0.64 mg/dL 0.60-1.20 [facility] Dipstick and Microscopicon 1 05-11-2022 Appearance (U) Turbid Critically abnormal Clear [facility] Comment on above: Order Comment: Name Collection Type:: Clean-Voided Midstream Performed By: #### A DDONUAPLUS, CUU #### [place] [address] [place] Bacteria,Urine Rare High None Seen [facility] Comment on above: Order Comment: Name Collection Type:: Clean-Voided Midstream Performed By: #### A DDONUAPLUS, CUU #### [place] [address] [place] Bilirubin,Urine Negative Normal Negative [facility] Comment on above: Order Comment: Name Collection Type:: Clean-Voided Midstream Performed By: #### A DDONUAPLUS, CUU #### [place] [address] [place] Color (U) Dark Yellow Critically abnormal Yellow [facility] Comment on above: Order Comment: Name Collection Type:: Clean-Voided Midstream Performed By: #### A DDONUAPLUS, CUU #### [place] [address] [place] Glucose Ql (U) Normal Normal Normal [facility] Comment on above: Order Comment: Name Collection Type:: Clean-Voided Midstream Performed By: #### A DDONUAPLUS, CUU #### [place] [address] [place] Hyaline Casts,Urine 9-19 High 0-8 [facility] Comment on above: Order Comment: Name Collection Type:: Clean-Voided Midstream Result Comment: PERF ORMED BY: [place] [address] PATHOLOGIST INSURANCE ADVISER ANDRÉS MACEDO M.D. Performed By: #### A DDONUAPLUS, CUU #### [place] [address] [place] Ketones Ql (U) 4+ High Negative [facility] Comment on above: Order Comment: Name Collection Type:: Clean-Voided Midstream Performed By: #### A DDONUAPLUS, CUU #### [place] [address] [place] Leukocyte esterase Test strip Ql (U) 1+ High Negative [facility] Comment on above: Order Comment: Name Collection Type:: Clean-Voided Midstream Performed By: #### A DDONUAPLUS, CUU #### [place] [address] [place] Nitrite,Urine Negative Normal Negative [facility] Comment on above: Order Comment: Name Collection Type:: Clean-Voided Midstream Performed By: #### A DDONUAPLUS, CUU #### [place] [address] [place] Occult Blood,Urine 3+ High Negative [facility] Comment on above: Order Comment: Name Collection Type:: Clean-Voided Midstream Result Comment: PERF ORMED BY: [place] [address] PATHOLOGIST INSURANCE ADVISER ANDRÉS MACEDO M.D. Performed By: #### A DDONUAPLUS, CUU #### [address] Othe Crystals,Urine Normal [facility] Comment on above: Order Comment: Name Collection Type:: Clean-Voided Midstream Result Comment: sulf a crystals Performed By: #### A DDONUAPLUS, CUU #### [address] pH (U) 6.5 [pH] Normal 5.0-9.0 [facility] Comment on above: Order Comment: Name Collection Type:: Clean-Voided Midstream Performed By: #### A DDONUAPLUS, CUU #### [address] Protein (U) [Mass/Vol] 100 mg/dL High Negative [facility] Comment on above: Order Comment: Name Collection Type:: Clean-Voided Midstream Performed By: #### A DDONUAPLUS, CUU #### [place] [address] [place] RBC,Urine 50-100 High 0-4 [facility] Comment on above: Order Comment: Name Collection Type:: Clean-Voided Midstream Performed By: #### A DDONUAPLUS, CUU #### [address] Specificy [place],Urine 1.029 Normal 1.001-1.03 0 [facility] Comment on above: Order Comment: Name Collection Type:: Clean-Voided Midstream Performed By: #### A DDONUAPLUS, CUU #### [place] [address] [place] Squamous Epithelial Cell,Urine 1-2 Normal 0-2 [facility] Comment on above: Order Comment: Name Collection Type:: Clean-Voided Midstream Performed By: #### A DDONUAPLUS, CUU #### [address] [address] [place] Urobilinogen,Urine Normal Normal Normal [facility] Comment on above: Order Comment: Name Collection Type:: Clean-Voided Midstream Performed By: #### A DDONUAPLUS, CUU #### [facility] [address] [place] [address] [place] WBC,Urine 5-9 High 0-4 [facility] Comment on above: Order Comment: Name Collection Type:: Clean-Voided Midstream Performed By: #### A DDONUAPLUS, CUU #### [facility] [address] Eosinophils Auto (Bld) [#/Vo l]Ordered By: Jacky Alarcon on 03-10-2023 Eosinophils (Bld) [#/Vol] 0.1 10*3/uL 0.0-0.45 [facility] Eosinophils/100 WBC Auto (Bl d)Ordered By: Jacky Alarcon on 03-10-2023 Eosinophils/100 WBC (Bld) 0.5 % . [facility] Erythrocyte distribution wid th Auto (RBC) [Ratio]Ordered By: Jacky Alarcon on 03-10-2023 Erythrocyte distribution width (RBC) [Ratio] 13.3 % 11.9-15.3 [facility] Globulin Calc (S) [Mass/Vol] Ordered By: Jacky Alarcon on 03-10-2023 Globulin (S) [Mass/Vol] 3.5 g/dL [facility] Glucose [Mass/volume] in Ser um or PlasmaOrdered By: Jacky Alarcon on 03-10-2023 Glucose [Mass/Vol] 83 mg/dL 70-100 [facility] Comment on above: ADA recommended refe rence rangeRandom Glucose Reference Range is dependent on time and content of last meal. Glucose of more than 200 mg/dL in a nonstressed, ambulatory subject supports the diagnosis of Diabetes Mellitus. HCG ( test) IAopal d Ql (U)Ordered By: Jacky Alarcon on 03-10-2023 HCG ( test) Ql (U) Positive [facility] HCG,Quantitativeon HCG,Quantitative 58921.00 m[iU]/mL Normal F [facility] Comment on above: Result Comment: Appr oximate Approximate hCG Gestational Age Range (mIU/ml) (weeks) 0.2-1 5-50 1-2 50-500 2-3 100-5,000 3-4 500-10,000 4-5 1,000-50,000 5-6 10,000-100,000 6-8 15,000-200,000 8-12 10,000-100,000 PERFORMED BY: [place] [address] PATHOLOGIST INSURANCE ADVISER ANDRÉS MACEDO M.D. Performed By: #### L IPASE, HCGQNT, HEPATIC, BMP, CBC #### [address] HCG,Urineon 03-10-2023 Beta HCG ( test) Ql (U) Positive [facility] Comment on above: Result Comment: PERF ORMED BY: [place] [address] PATHOLOGIST INSURANCE ADVISER ANDRÉS MACEDO M.D. Performed By: #### U HCG #### [address] Hematocrit Auto (Bld) [Volum e fraction]Ordered By: Jacky Alarcon on 03-10-2023 Hematocrit (Bld) [Volume fraction] 47.2 % 34.0-46.4 [facility] Hemoglobin [Mass/volume] in BloodOrdered By: Jacky Alarcon on 03-10-2023 Hemoglobin (Bld) [Mass/Vol] 16.5 g/dL 11.8-15.4 [facility] Hepatic Panelon 03-10-2023 Albumin [Mass/Vol] 4.5 g/dL Normal 3.5-5.7 [facility] Comment on above: Performed By: #### L IPASE, HCGQNT, HEPATIC, BMP, CBC #### [facility] [address] [place] [address] Albumin/Globulin [Mass ratio] 1.3 {ratio} Normal [facility] Comment on above: Performed By: #### L IPASE, HCGQNT, HEPATIC, BMP, CBC #### [facility] [address] ALP [Catalytic activity/Vol] 71 U/L Normal 34-104 [facility] Comment on above: Performed By: #### L IPASE, HCGQNT, HEPATIC, BMP, CBC #### [facility] [address] ALT [Catalytic activity/Vol] 36 U/L Normal 7-52 [facility] Comment on above: Performed By: #### L IPASE, HCGQNT, HEPATIC, BMP, CBC #### [facility] [address] AST [Catalytic activity/Vol] 17 U/L Normal 13-39 [facility] Comment on above: Performed By: #### L IPASE, HCGQNT, HEPATIC, BMP, CBC #### [address] Bilirubin [Mass/Vol] 1.2 mg/dL High 0.3-1.0 [facility] Comment on above: Performed By: #### L IPASE, HCGQNT, HEPATIC, BMP, CBC #### [facility] [address] [place] [address] [place] Bilirubin,Indirect 0.8 mg/dL Normal [facility] Comment on above: Performed By: #### L IPASE, HCGQNT, HEPATIC, BMP, CBC #### [facility] [address] [place] [address] [place] Bilirubin.indirect [Mass/Vol] 0.40 mg/dL High 0.03-0.18 [facility] Comment on above: Performed By: #### L IPASE, HCGQNT, HEPATIC, BMP, CBC #### [facility] [address] [place] [address] [place] Globulin (S) [Mass/Vol] 3.5 g/dL Normal [facility] Comment on above: Performed By: #### L IPASE, HCGQNT, HEPATIC, BMP, CBC #### [facility] [address] [place] [address] [place] Protein [Mass/Vol] 8.0 g/dL Normal 6.4-8.9 [facility] Comment on above: Performed By: #### L IPASE, HCGQNT, HEPATIC, BMP, CBC #### [facility] [address] Ketones Auto test strip (U) [Mass/Vol]Ordered By: Jacky Alarcon on 03-10-2023 Ketones (U) [Mass/Vol] 4+ Negative [facility] - UrinalysisOrder ed By: Jacky Alarcon on 03-10-2023 Hyaline casts LM Ql (Urine sed) 9-19 [LPF] 0-8 [facility] Leukocytes [#/volume] correc anabell for nucleated erythrocytes in Blood by Automated counOrdered By: Jacky Alarcon on 03-10-2023 WBC corrected for nucl RBC Auto (Bld) [#/Vol] 16.0 10*3/uL 3.8-11.6 [facility] Lipaseon 03-10-2023 Lipase [Catalytic activity/Vol] 35.0 U/L Normal 11.0-82.0 [facility] Comment on above: Result Comment: PERF ORMED BY: [place] [address] PATHOLOGIST INSURANCE ADVISER ANDRÉS MACEDO M.D. Performed By: #### L IPASE, HCGQNT, HEPATIC, BMP, CBC #### [facility] [address] Lipase [Enzymatic activity/v olume] in Serum or PlasmaOrdered By: Jacky Alarcon on 03-10-2023 Lipase [Catalytic activity/Vol] 35.0 U/L 11.0-82.0 [facility] Lymphocytes Auto (Bld) [#/Vo l]Ordered By: Jacky Alarcon on 03-10-2023 Lymphocytes (Bld) [#/Vol] 1.9 10*3/uL 1.00-4.8 [facility] Lymphocytes/100 WBC Auto (Bl d)Ordered By: Jacky Alarcon on 03-10-2023 Lymphocytes/100 WBC (Bld) 11.6 % . [facility] MCH Auto (RBC) [Entitic mass ]Ordered By: Jacky Alarcon on 12-01-2023 MCH (RBC) [Entitic mass] 30.8 pg 24.7-34.3 [facility] MCHC Auto (RBC) [Mass/Vol]Or dered By: Jacky Alarcon on 03-10-2023 MCHC (RBC) [Mass/Vol] 35.0 g/dL 32.0-35.0 [facility] MCV Auto (RBC) [Entitic vol] Ordered By: Jacky Alarcon on 03-10-2023 MCV (RBC) [Entitic vol] 87.8 fL 80-100 [facility] Monocyte distribution width [Entitic volume] in Blood by AutomatedOrdered By: Jacky Alarcon on 03-10-2023 Monocyte distribution width Auto (Bld) [Entitic vol] 16.05 % 0.00-20.00 [facility] Monocytes Auto (Bld) [#/Vol] Ordered By: Jacky Alarcon on 03-10-2023 Monocytes (Bld) [#/Vol] 1.4 10*3/uL 0.0-0.8 [facility] Monocytes/100 WBC Auto (Bld) Ordered By: Jacky Alarcon on 03-10-2023 Monocytes/100 WBC (Bld) 8.8 % . [facility] Neutrophils Auto (Bld) [#/Vo l]Ordered By: Jacky Alarcon on 03-10-2023 Neutrophils (Bld) [#/Vol] 12.6 10*3/uL 1.8-7.7 [facility] Neutrophils/100 WBC Auto (Bl d)Ordered By: Jacky Alarcon on 03-10-2023 Neutrophils/100 WBC (Bld) 78.7 % . [facility] Nitrite Test strip Ql (U)Ord ered By: Jacky Alarcon on 03-10-2023 Nitrite Ql (U) Negative Negative [facility] No Panel InformationOrdered By: Jacky Alarcon on 03-10-2023 Estimated GFR (CKD-EPI) > 60.0 mL/Min [facility] Creatinine Clearance (Chem 148.58 [facility] Nucleated erythrocytes [Pres ence] in Blood by Automated countOrdered By: Jacky Alarcon on 03-10-2023 Nucleated RBC Auto Ql (Bld) 0.1 /100{WBC} 0-0.5 [facility] Platelet mean volume Auto (B ld) [Entitic vol]Ordered By: Jacky Alarcon on 03-10-2023 Platelet mean volume (Bld) [Entitic vol] 9.7 fL 6.3-10.7 [facility] Platelets Auto (Bld) [#/Vol] Ordered By: Jacky Alarcon on 03-10-2023 Platelets (Bld) [#/Vol] 263 10*3/uL 150-450 [facility] Potassium [Moles/volume] in Serum or PlasmaOrdered By: Jacky Alarcon on 03-10-2023 Potassium [Moles/Vol] 3.3 mmol/L 3.5-5.1 [facility] Protein Auto test strip (U) [Mass/Vol]Ordered By: Jacky Alarcon on 03-10-2023 Protein (U) [Mass/Vol] 100 mg/dL Negative [facility] Protein [Mass/volume] in Ser um or PlasmaOrdered By: Jacky Alarcon on 03-10-2023 Protein [Mass/Vol] 8.0 g/dL 6.4-8.9 [facility] RBC Auto (Bld) [#/Vol]Ordere d By: Jacky Alarcon on 03-10-2023 RBC (Bld) [#/Vol] 5.37 10*6/uL 3.60-5.00 [facility] Serum or plasma albumin/glob ulin mass ratioOrdered By: Jacky Alarcon on 03-10-2023 Albumin/Globulin [Mass ratio] 1.3 {ratio} [facility] Serum or plasma anion gap de terminationOrdered By: Jacky Alarcon on 03-10-2023 Anion gap [Moles/Vol] 16.5 mmol/L 6.0-15.0 [facility] Serum or plasma non-glucuron idated bilirubin measurement (mass/volume)Ordered By: Jacky Alarocn on 03-10-2023 Bilirubin.indirect [Mass/Vol] 0.8 mg/dL [facility] Sodium [Moles/volume] in Ser um or PlasmaOrdered By: Jacky Alarcon on 03-10-2023 Sodium [Moles/Vol] 133 mmol/L 136-145 [facility] Specific gravity Auto test s trip (U) [Rel density]Ordered By: Jacky Alarcon on 03-10-2023 Specific gravity (U) [Rel density] 1.029 1.001-1.03 0 [facility] Squamous epithelial cells de tection in urine sediment by light microscopyOrdered By: Jacky Alarcon on 03-10-2023 Epithelial cells.squamous LM Ql (Urine sed) 1-2 [HPF] 0-2 [facility] Urea nitrogen [Mass/volume] in Serum or PlasmaOrdered By: Jacky Alarcon on 03-10-2023 Urea nitrogen [Mass/Vol] 6 mg/dL 7-25 [facility] Urine Cultureon 03-10-2023 Bacteria identified Cx Nom (U) >100,000 colonies/ml mixed bacterial skin contaminants 2 Days PERFORMED BY: [place] [address] PATHOLOGIST INSURANCE ADVISER ANDRÉS MACEDO M.D. Normal [facility] Comment on above: Performed By: #### A DDONUAPLUS, CUU #### [address] Urine bacteria detection by automated methodOrdered By: Jacky Alarcon on 03-10-2023 Bacteria Auto Ql (U) Rare None Seen [facility] Urine clarity by refractomet ry automatedOrdered By: Jacky Alarcon on 03-10-2023 Clarity Refractometry automated (U) Turbid Clear [facility] Urine glucose measurement by automated test strip (mass/volume)Ordered By: Jacky Alarcon on 03-10-2023 Glucose Auto test strip (U) [Mass/Vol] Normal mg/dL Normal [facility] Urine hemoglobin detection b y automated test stripOrdered By: Jacky Alarcon on 03-10-2023 Hemoglobin Auto test strip Ql (U) 3+ Negative [facility] Urine leukocyte esterase det ection by automated test stripOrdered By: Jacky Alarcon on 03-10-2023 Leukocyte esterase Auto test strip Ql (U) 1+ Negative [facility] Urine sediment crystal ident ification by light microscopyOrdered By: Jacky Alarcon on 03-10-2023 Crystals LM Nom (Urine sed) See comment [facility] Comment on above: sulfa crystals Urobilinogen Auto test strip (U) [Mass/Vol]Ordered By: Jacky Alarcon on 03-10-2023 Urobilinogen (U) [Mass/Vol] Normal mg/dL Normal [facility] WBC Auto (Bld) [#/Vol]Ordere d By: Jacky Alarcon on 03-10-2023 WBC (Bld) [#/Vol] 16.0 10*3/uL 3.8-11.6 [facility] pH Auto test strip (U)Ordere d By: Jacky Alarcon on 03-10-2023 pH (U) 6.5 [pH] 5.0-9.0 [facility] CBC AUTO DIFFon 07-30-2022 BASO # 0.1 103/ul Normal 0.0-0.1 [facility] Comment on above: Performed By: #### G TT3P #### [facility] [address] [place] [address] Dr. Jackelyn Celestin Basophils/100 WBC (Bld) 0.6 % Normal 0.2-2.0 [facility] Comment on above: Performed By: #### G TT3P #### [facility] [address] [place] [address] Dr. Jackelyn Celestin EO # 0.2 103/ul Normal 0.0-0.7 [facility] Comment on above: Performed By: #### G TT3P #### [facility] [address] [place] [address] Dr. Jackelyn Celestin Eosinophils/100 WBC (Bld) 1.5 % Normal 0.9-7.0 [facility] Comment on above: Performed By: #### G TT3P #### [facility] [address] [place] [address] Dr. Jackelyn Celestin Erythrocyte distribution width (RBC) [Ratio] 14.5 % Normal 11.0-15.0 [facility] Comment on above: Performed By: #### G TT3P #### [facility] [address] [place] [address] Dr. Jackelyn Celestin Hematocrit (Bld) [Volume fraction] 33.9 % Critically low 36.0-48.0 [facility] Comment on above: Performed By: #### G TT3P #### [facility] [address] [place] [address] Dr. Jackelyn Celestin Hemoglobin (Bld) [Mass/Vol] 11.0 g/dL Critically low 12.0-16.0 [facility] Comment on above: Performed By: #### G TT3P #### [facility] [address] [place] [address] Dr. Jackelyn Celestin IG # 0.13 10e3/ul Critically high 0.00-0.03 [facility] Comment on above: Performed By: #### G TT3P #### [facility] [address] [place] [address] Dr. Jackelyn Celestin IG % 1.1 % Critically high 0.0-0.5 [facility] Comment on above: Performed By: #### G TT3P #### [facility] [address] [place] [address] Dr. Jackelyn Celestin LYMPH # 2.2 103/ul Normal 1.2-3.8 [facility] Comment on above: Performed By: #### G TT3P #### [facility] [address] [place] [address] Dr. Jackelyn Celestin Lymphocytes/100 WBC (Bld) 17.9 % Critically low 20.5-60.0 [facility] Comment on above: Performed By: #### G TT3P #### [facility] [address] [place] [address] Dr. Jackelyn Celestin MANUAL DIFF REQ NO Normal [facility] Comment on above: Performed By: #### G TT3P #### [facility] [address] [place] [address] Dr. Jackelyn Celestin MCH (RBC) [Entitic mass] 28.6 pg Normal 26.7-34.0 [facility] Comment on above: Performed By: #### G TT3P #### [facility] [address] [place] [address] Dr. Jackelyn Celestin MCHC (RBC) [Mass/Vol] 32.4 g/dL Normal 29.9-35.2 [facility] Comment on above: Performed By: #### G TT3P #### [facility] [address] [place] [address] Dr. Jackelyn Celestin MCV (RBC) [Entitic vol] 88.1 fL Normal 81.0-99.0 [facility] Comment on above: Performed By: #### G TT3P #### [facility] [address] [place] [address] Dr. Jaceklyn Celestin MONO # 0.8 103/ul Normal 0.3-0.8 [facility] Comment on above: Performed By: #### G TT3P #### [facility] [address] [place] [address] Dr. Jackelyn Celestin Monocytes/100 WBC (Bld) 6.9 % Normal 1.7-12.0 [facility] Comment on above: Performed By: #### G TT3P #### [facility] [address] [place] [address] Dr. Jackelyn Celestin NEUT # 8.7 103/ul Critically high 1.4-6.5 [facility] Comment on above: Performed By: #### G TT3P #### [facility] [address] [place] [address] Dr. Jackelyn Celestin Neutrophils/100 WBC (Bld) 72.0 % Normal 43.0-75.0 [facility] Comment on above: Performed By: #### G TT3P #### [facility] [address] [place] [address] Dr. Jackelyn Celestin Platelet mean volume (Bld) [Entitic vol] 11.5 fL Normal 9.5-13.5 [facility] Comment on above: Performed By: #### G TT3P #### [facility] [address] [place] [address] Dr. Jackelyn Celestin PLT 146 103/ul Critically low 150-450 [facility] Comment on above: Performed By: #### G TT3P #### [facility] [address] [place] [address] Dr. Jackelyn Celestin RBC 3.85 106/ul Critically low 4.20-5.40 [facility] Comment on above: Performed By: #### G TT3P #### [facility] [address] [place] [address] Dr. Jackelyn Celestin WBC 12.1 103/ul Critically high 4.0-11.0 [facility] Comment on above: Performed By: #### G TT3P #### [facility] [address] [place] [address] Dr. Jackelyn Celestin CBC AUTO DIFFon 07-29-2022 BASO # 0.0 103/ul Normal 0.0-0.1 [facility] Comment on above: Performed By: #### [id number] #### [facility] [address] [place] [address] Dr. Jackelyn Celestin Basophils/100 WBC (Bld) 0.4 % Normal 0.2-2.0 [facility] Comment on above: Performed By: #### [id number] #### [facility] [address] [place] [address] Dr. Jackelyn Celestin EO # 0.2 103/ul Normal 0.0-0.7 [facility] Comment on above: Performed By: #### 4 [id number] #### [facility] [address] [place] [address] Dr. Jackelyn Celestin Eosinophils/100 WBC (Bld) 1.4 % Normal 0.9-7.0 [facility] Comment on above: Performed By: #### [id number] #### [facility] [address] [place] [address] Dr. Jackelyn Celestin Erythrocyte distribution width (RBC) [Ratio] 14.1 % Normal 11.0-15.0 [facility] Comment on above: Performed By: #### 4 [id number] #### [facility] [address] [place] [address] Dr. Jackelyn Celestin Hematocrit (Bld) [Volume fraction] 36.0 % Normal 36.0-48.0 [facility] Comment on above: Performed By: #### 4 [id number] #### [facility] [address] [place] [address] Dr. Jackelyn Celestin Hemoglobin (Bld) [Mass/Vol] 12.2 g/dL Normal 12.0-16.0 [facility] Comment on above: Performed By: #### 4 [id number] #### [facility] [address] [place] [address] Dr. Jackelyn Celestin IG # 0.10 10e3/ul Critically high 0.00-0.03 [facility] Comment on above: Performed By: #### 4 [id number] #### [facility] [address] [place] [address] Dr. Jackelyn Celestin IG % 0.9 % Critically high 0.0-0.5 [facility] Comment on above: Performed By: #### 4 [id number] #### [facility] [address] [place] [address] Dr. Jackelyn Celestin LYMPH # 1.9 103/ul Normal 1.2-3.8 [facility] Comment on above: Performed By: #### [id number] #### [facility] [address] [place] [address] Dr. Jackelyn Celestin Lymphocytes/100 WBC (Bld) 17.7 % Critically low 20.5-60.0 [facility] Comment on above: Performed By: #### [id number] #### [facility] [address] [place] [address] Dr. Jackelyn Celestin MANUAL DIFF REQ NO Normal [facility] Comment on above: Performed By: #### [id number] #### [facility] [address] [place] [address] Dr. Jackelyn Celestin MCH (RBC) [Entitic mass] 28.8 pg Normal 26.7-34.0 [facility] Comment on above: Performed By: #### 4 [id number] #### [facility] [address] [place] [address] Dr. Jackelyn Celestin MCHC (RBC) [Mass/Vol] 33.9 g/dL Normal 29.9-35.2 [facility] Comment on above: Performed By: #### [id number] #### [facility] [address] [place] [address] Dr. Jackelyn Celestin MCV (RBC) [Entitic vol] 84.9 fL Normal 81.0-99.0 [facility] Comment on above: Performed By: #### 4 [id number] #### [facility] [address] [place] [address] Dr. Jackelyn Celestin MONO # 0.9 103/ul Critically high 0.3-0.8 [facility] Comment on above: Performed By: #### 4 [id number] #### [facility] [address] [place] [address] Dr. Jackelyn Celestin Monocytes/100 WBC (Bld) 8.4 % Normal 1.7-12.0 [facility] Comment on above: Performed By: #### 4 [id number] #### [facility] [address] [place] [address] Dr. Jackelyn Celestin NEUT # 7.7 103/ul Critically high 1.4-6.5 [facility] Comment on above: Performed By: #### 4 [id number] #### [facility] [address] [place] [address] Dr. Jackelyn Celestin Neutrophils/100 WBC (Bld) 71.2 % Normal 43.0-75.0 [facility] Comment on above: Performed By: #### [id number] #### [facility] [address] [place] [address] Dr. Jackelyn Celestin Platelet mean volume (Bld) [Entitic vol] 10.9 fL Normal 9.5-13.5 [facility] Comment on above: Performed By: #### [id number] #### [facility] [address] [place] [address] Dr. Jackelyn Celestin PLT 170 103/ul Normal 150-450 [facility] Comment on above: Performed By: #### 4 [id number] #### [facility] [address] [place] [address] Dr. Jackelyn Celestin RBC 4.24 106/ul Normal 4.20-5.40 [facility] Comment on above: Performed By: #### [id number] #### [facility] [address] [place] [address] Dr. Jackelyn Celestin WBC 10.8 103/ul Normal 4.0-11.0 [facility] Comment on above: Performed By: #### [id number] #### [facility] [address] [address] [address] Jackelyn Celestin DRUG SCREEN RAPID (URINE)on 07-29-2022 AMP Negative Normal NEGATIVE [facility] Comment on above: Performed By: #### 4 [id number] #### [facility] [address] [address] [address] Jackelyn Celestin BAR Negative Normal NEGATIVE [facility] Comment on above: Performed By: #### 4 [id number] #### [facility] [address] [address] [address] Jackelyn Celestin BUP Negative Normal NEGATIVE [facility] Comment on above: Performed By: #### 4 [id number] #### [facility] [address] [place] [address] Dr. Jackelyn Celestin BZO Negative Normal NEGATIVE [facility] Comment on above: Performed By: #### 4 [id number] #### [facility] [address] [place] [address] Dr. Jackelyn Celestin HOMERO Negative Normal NEGATIVE [facility] Comment on above: Performed By: #### 4 [id number] #### [facility] [address] [address] [address] Jackelyn Celestin CUT-OFFS SEE BELOW Normal [facility] Comment on above: Result Comment: AMP (Amphetamine): 500ng/mL, BAR (Barbituates): 200 ng/mL, BZO (Benzodiazepines): 150 ng/mL, BUP (Buprenorphine): 10 ng/mL, HOMERO (Cocaine): 150 ng/mL, mAMP (Methamphetamine): 500 ng/mL, MTD (Methadone): 200 ng/mL, OPI (Opiates): 100 ng/mL, OXY (Oxycodone): 100 ng/mL, PCP (Phencyclidine): 25 ng/mL, PPX (Propoxyphene): 300 ng/mL, THC (Cannabinoids): 50 ng/mL, TCA (Trycyclic Antidepressants): 300 ng/mL Performed By: #### [id number] #### [facility] [address] [place] [address] Dr. Jackelyn Celestin DRUG CUT HEADER DRUG CLASS TEST SYST EM CUT-OFF CONCENTRATIONS ARE FOLLOWS: Normal [facility] Comment on above: Performed By: #### [id number] #### [facility] [address] [place] [address] Dr. Jackelyn Celestin mAMP Negative Normal NEGATIVE [facility] Comment on above: Performed By: #### 4 [id number] #### [facility] [address] [place] [address] Dr. Jackelyn Celestin MTD Negative Normal NEGATIVE [facility] Comment on above: Performed By: #### 4 [id number] #### [facility] [address] [place] [address] Dr. Jackelyn Celestin OPI Negative Normal NEGATIVE [facility] [facility] Comment on above: Performed By: #### [id number] #### [facility] [address] [place] [address] Dr. Jackelyn Celestin OXY Negative Normal NEGATIVE [facility] Comment on above: Performed By: #### [id number] #### [facility] [address] [place] [address] Dr. Jackelyn Celestin PCP Negative Normal NEGATIVE [facility] Comment on above: Performed By: #### [id number] #### [facility] [address] [place] [address] Dr. Jackelyn Celestin PPX Negative Normal NEGATIVE [facility] Comment on above: Performed By: #### [id number] #### [facility] [address] [place] [address] Dr. Jackelyn Celestin TCA Negative Normal NEGATIVE [facility] Comment on above: Performed By: #### [id number] #### [facility] [address] [place] [address] Dr. Jackelyn Celestin THC Negative Normal NEGATIVE [facility] Comment on above: Performed By: #### 4 [id number] #### [facility] [address] [place] [address] Dr. Jackelyn Celestin TYPE AND SCREENon 07-29-2022 TYPE AND SCREEN Negative Normal [facility] Comment on above: Performed By: #### G [id number] #### [facility] [address] [place] [address] Dr. Jackelyn Celestin US PREG GROWTHon 07-25-2022 [...] TRISTAN HART Date: 2022-07-24 22:37 Normal [facility] GROUP B STREP CULTUREon 06-09 S. agalactiae Ag Ql (Unsp spec) Culture Observations: NEGATIVE FOR GROUP B STREPTOCOCCUS. Normal [facility] Comment on above: Performed By: #### G TT3P #### [facility] [address] [place] [address] Dr. Jackelyn Celestin US PREG GROWTHon 06-06-2022 [...] by: TRISTAN HART Date: 2022-06-06 15:39 Normal [facility] GTT 3 HR PREGon 05-21-2022 Glucose [Mass/Vol] 91 mg/dL Normal 74-106 [facility] Comment on above: Performed By: #### G TT3P #### [facility] [address] [place] [address] Dr. Jackelyn Celestin Glucose [Mass/Vol] 168 mg/dL Normal [facility] Comment on above: Performed By: #### G TT3P #### [facility] [address] [place] [address] Dr. Jackelyn Celestin Glucose [Mass/Vol] 121 mg/dL Normal [facility] Comment on above: Performed By: #### G TT3P #### [facility] [address] [place] [address] Dr. Jackelyn Celestin Glucose [Mass/Vol] 86 mg/dL Normal [facility] Comment on above: Performed By: #### G TT3P #### [facility] [address] [place] [address] Dr. Jackelyn Celestin PAP ACOG PANEL 2: 21 to 29on 05-17-2022 . . Normal [facility] Comment on above: Performed By: #### 4 [id number] #### [facility] [address] [place] [address] Dr. Jackelyn Celestin DIAGNOSIS: Comment Normal [facility] Comment on above: Result Comment: NEGA TIVE FOR INTRAEPITHELIAL LESION OR MALIGNANCY. Performed By: #### [id number] #### [facility] [address] [place] [address] Dr. Jackelyn Celestin Methodology: Comment [facility] Comment on above: Result Comment: This liquid based ThinPrep(R) pap test was screened with the use of an image guided system. Performed By: #### 4 [id number] #### [facility] [address] [place] [address] Dr. Jackelyn Celestin Note: Comment Normal [facility] Comment on above: Result Comment: The Pap smear is a screening test designed to aid in the detection of premalignant and malignant conditions of the uterine cervix. It is not a diagnostic procedure and should not be used as the sole means of detecting cervical cancer. Both false-positive and false-negative reports do occur. . Performed By: #### 4 [id number] #### [facility] [address] [place] [address] Dr. Jackelyn Celestin Performed by: Comment Normal [facility] Comment on above: Result Comment: Alphonso Walker, Granulating Machine Operator (ASCP) Performed By: #### [id number] #### [facility] [address] [place] [address] Dr. Jackelyn Celestin Reflex Criteria: Comment Normal [facility] Comment on above: Result Comment: The HPV DNA reflex criteria were not met with this specimen result therefore, no HPV testing was performed. . Performed By: #### [id number] #### [facility] [address] [place] [address] Dr. Jackelyn Celestin Specimen adequacy: Comment [facility] Comment on above: Result Comment: Sati sfactory for evaluation. No endocervical component is identified. Performed By: #### 4 [id number] #### [facility] [address] [place] [address] Dr. Jackelyn Celestin Age Gdln ACOG Testing 21-29 Normal [facility] Comment on above: Performed By: #### 4 [id number] #### [facility] [address] [place] [address] Dr. Jackelyn Celestin CHLAMYDIA/GONOCOCCUS ALONDRA (SW AB/URINE/PAPon 05-14-2022 Chlamydia trachomatis, ALONDRA Negative Normal Negative [facility] Comment on above: Performed By: #### G TT3P #### [facility] [address] [place] [address] Dr. Jackelyn Celestin Neisseria gonorrhoeae, ALONDRA Negative Normal Negative [facility] Comment on above: Performed By: #### G TT3P #### [facility] [address] [place] [address] Dr. Jackelyn Celestin VAGINITIS/VAGINOSIS DNA PROB Dean 05-13-2022 Thao species Negative Normal Negative [facility] Comment on above: Performed By: #### 4 [id number] #### [facility] [address] [place] [address] Dr. Jackelyn Celestin Gardnerella vaginalis Negative Normal Negative [facility] Comment on above: Performed By: #### 4 [id number] #### [facility] [address] [place] [address] Dr. Jackelyn Celestin Trichomonas vaginalis Negative Normal Negative [facility] Comment on above: Performed By: #### 4 [id number] #### [facility] [address] [place] [address] Dr. Jackelyn Celestin CBC AUTO DIFFon 05-09-2022 BASO # 0.0 103/ul Normal 0.0-0.1 [facility] Comment on above: Performed By: #### C BC #### [facility] [address] [place] [address] Dr. Jackelyn Celestin Basophils/100 WBC (Bld) 0.3 % Normal 0.2-2.0 [facility] Comment on above: Performed By: #### C BC #### [facility] [address] [place] [address] Dr. Jackelyn Celestin EO # 0.1 103/ul Normal 0.0-0.7 [facility] Comment on above: Performed By: #### C BC #### [facility] [address] [place] [address] Dr. Jackelyn Celestin Eosinophils/100 WBC (Bld) 1.2 % Normal 0.9-7.0 [facility] Comment on above: Performed By: #### C BC #### [facility] [address] [place] [address] Dr. Jackelyn Celestin Erythrocyte distribution width (RBC) [Ratio] 11.9 % Normal 11.0-15.0 [facility] Comment on above: Performed By: #### C BC #### [facility] [address] [place] [address] Dr. Jackelyn Celestin Hematocrit (Bld) [Volume fraction] 33.7 % Critically low 36.0-48.0 [facility] Comment on above: Performed By: #### C BC #### [facility] [address] [place] [address] Dr. Jackelyn Celestin Hemoglobin (Bld) [Mass/Vol] 12.0 g/dL Normal 12.0-16.0 [facility] Comment on above: Performed By: #### C BC #### [facility] [address] [place] [address] Dr. Jackelyn Celestin IG # 0.07 10e3/ul Critically high 0.00-0.03 [facility] Comment on above: Performed By: #### C BC #### [facility] [address] [place] [address] Dr. Jackelyn Celestin IG % 0.6 % Critically high 0.0-0.5 [facility] Comment on above: Performed By: #### C BC #### [facility] [address] [place] [address] Dr. Jackelyn Celestin LYMPH # 1.3 103/ul Normal 1.2-3.8 [facility] Comment on above: Performed By: #### C BC #### [facility] [address] [place] [address] Dr. Jackelyn Celestin Lymphocytes/100 WBC (Bld) 11.5 % Critically low 20.5-60.0 [facility] Comment on above: Performed By: #### C BC #### [facility] [address] [place] [address] Dr. Jackelyn Celestin MANUAL DIFF REQ NO Normal [facility] Comment on above: Performed By: #### C BC #### [facility] [address] [place] [address] Dr. Jackelyn Celestin MCH (RBC) [Entitic mass] 31.0 pg Normal 26.7-34.0 [facility] Comment on above: Performed By: #### C BC #### [facility] [address] [place] [address] Dr. Jackelyn Celestin MCHC (RBC) [Mass/Vol] 35.6 g/dL Critically high 29.9-35.2 [facility] Comment on above: Performed By: #### C BC #### [facility] [address] [place] [address] Dr. Jackelyn Celestin MCV (RBC) [Entitic vol] 87.1 fL Normal 81.0-99.0 [facility] Comment on above: Performed By: #### C BC #### [facility] [address] [place] [address] Dr. Jackelyn Celestin MONO # 0.5 103/ul Normal 0.3-0.8 [facility] Comment on above: Performed By: #### C BC #### [facility] [address] [place] [address] Dr. Jackelyn Celestin Monocytes/100 WBC (Bld) 4.8 % Normal 1.7-12.0 [facility] Comment on above: Performed By: #### C BC #### [facility] [address] [place] [address] Dr. Jackelyn Celestin NEUT # 8.9 103/ul Critically high 1.4-6.5 [facility] Comment on above: Performed By: #### C BC #### [facility] [address] [place] [address] Dr. Jackelyn Celestin Neutrophils/100 WBC (Bld) 81.6 % Critically high 43.0-75.0 [facility] Comment on above: Performed By: #### C BC #### [facility] [address] [place] [address] Dr. Jackelyn Celestin Platelet mean volume (Bld) [Entitic vol] 11.3 fL Normal 9.5-13.5 [facility] Comment on above: Performed By: #### C BC #### [facility] [address] [place] [address] Dr. Jackelyn Celestin PLT 171 103/ul Normal 150-450 [facility] Comment on above: Performed By: #### C BC #### [facility] [address] [place] [address] Dr. Jackelyn Celestin RBC 3.87 106/ul Critically low 4.20-5.40 [facility] Comment on above: Performed By: #### C BC #### [facility] [address] [address] [address] Jackelyn Celestin WBC 10.9 103/ul Normal 4.0-11.0 [facility] Comment on above: Performed By: #### C BC #### [facility] [address] [address] [address] Jackelyn Celestin GLUCOSE - 1HRon 05-09-2022 Glucose [Mass/Vol] 142 mg/dL Critically high 74-106 [facility] Comment on above: Performed By: #### 4 [id number] #### [facility] [address] [address] [address] Jackelyn Celestin US PREG BIOPHY W [...] by: TRISTAN HART Date: 2022-05-09 10:35 Normal [facility] US PREG PLACENTAon US PREG PLACENTA EXAMINATION: US PREG PLACENTA HISTORY: Falls ; mild cramping after falling COMPARISON: Ultrasound anatomy 03/17/2022 FINDINGS: PLACENTA: Posterior without previa, subchorionic hematoma, or abruption. CERVIX LENGTH: Not evaluated. HEART RATE: 158 bpm OTHER: None. IMPRESSION: 1. Unremarkable posterior placenta. No suspicious findings. Electronically authenticated by: TRISTAN HART Date: 2022-05-09 10:29 Normal [facility] US PREG ANATOMY SINGLEon US PREG [...] TRISTAN HART Date: 2022-03-17 16:29 Normal [facility] HEP B SURFACE ANTIGEN SCREEN on 02-15-2022 HBsAg Screen Negative Normal Negative [facility] Comment on above: Performed By: #### [id number] #### [facility] [address] [address] [address] Jackelyn Celestin HEPATITIS C VIRUS AB W/ REFL EX QUANTon 02-15-2022 HCV AB <0.1 Normal 0.0-0.9 [facility] Comment on above: Performed By: #### H CVPCRR #### [facility] [address] [address] [address] Jackelyn Celestin Interpretation: Comment Normal [facility] Comment on above: Result Comment: Nega tive Not infected with HCV, unless recent infection is suspected or other evidence exists to indicate HCV infection. Performed By: #### H CVPCRR #### [facility] [address] [address] [address] Jackelyn Celestin HIV 1 AND 2 WITH REFLEXon HIV Screen 4th Generation wRfx Non-Reactive Normal Non Reactive [facility] Comment on above: Result Comment: HIV Negative HIV-1/HIV-2 antibodies and HIV-1 p24 antigen were NOT detected. There is no laboratory evidence of HIV infection. Performed By: #### H IV12 #### [facility] [address] [place] [address] Dr. Jackelyn Celestin RPR QUANTon 02-15-2022 Rapid Plasma Reagin, Quant Non-Reactive Normal NonRea<1:1 [facility] Comment on above: Result Comment: Plea se Note: This test does not meet current guidelines for screening and diagnosis of syphilis. This test is intended for following treatment response in patients being treated for syphilis infection. To screen for syphilis infection, a reflex cascade that includes both RPR and a treponema-specific assay should be utilized, such as Treponema pallidum (Syphilis) Screening [address] (603222) or Rapid Plasma Reagin (RPR) Test With Reflex to Quantitative RPR and Confirmatory Treponema pallidum Antibodies (479673). Performed By: #### R PRQ #### [facility] [address] [place] [address] Dr. Jackelyn Celestin RUBELLA AB IGGon 02-15-2022 Rubella Antibodies, IgG 1.97 index Normal Immune >0.99 [facility] Comment on above: Result Comment: Non- immune <0.90 Equivocal 0.90 - 0.99 Immune >0.99 Performed By: #### R UBIGG #### [facility] [address] [place] [address] Dr. Jackelyn Celestin CBC AUTO DIFFon 02-12-2022 BASO # 0.0 103/ul Normal 0.0-0.1 [facility] Comment on above: Performed By: #### C BC #### [facility] [address] [place] [address] Dr. Jackelyn Celestin Basophils/100 WBC (Bld) 0.4 % Normal 0.2-2.0 [facility] Comment on above: Performed By: #### C BC #### [facility] [address] [place] [address] Dr. Jackelyn Celestin EO # 0.2 103/ul Normal 0.0-0.7 [facility] Comment on above: Performed By: #### C BC #### [facility] [address] [place] [address] Dr. Jackelyn Celestin Eosinophils/100 WBC (Bld) 2.0 % Normal 0.9-7.0 [facility] Comment on above: Performed By: #### C BC #### [facility] [address] [place] [address] Dr. Jackelyn Celestin Erythrocyte distribution width (RBC) [Ratio] 12.8 % Normal 11.0-15.0 [facility] Comment on above: Performed By: #### C BC #### [facility] [address] [place] [address] Dr. Jackelyn Celestin Hematocrit (Bld) [Volume fraction] 40.7 % Normal 36.0-48.0 [facility] Comment on above: Performed By: #### C BC #### [facility] [address] [place] [address] Dr. Jackelyn Celestin Hemoglobin (Bld) [Mass/Vol] 14.4 g/dL Normal 12.0-16.0 [facility] Comment on above: Performed By: #### C BC #### [facility] [address] [place] [address] Dr. Jackelyn Celestin IG # 0.05 10e3/ul Critically high 0.00-0.03 [facility] Comment on above: Performed By: #### C BC #### [facility] [address] [place] [address] Dr. Jackelyn Celestin IG % 0.4 % Normal 0.0-0.5 [facility] Comment on above: Performed By: #### C BC #### [facility] [address] [place] [address] Dr. Jackelyn Celestin LYMPH # 1.7 103/ul Normal 1.2-3.8 [facility] Comment on above: Performed By: #### C BC #### [facility] [address] [place] [address] Dr. Jackelyn Celestin Lymphocytes/100 WBC (Bld) 15.1 % Critically low 20.5-60.0 [facility] Comment on above: Performed By: #### C BC #### [facility] [address] [place] [address] Dr. Jackelyn Celestin MANUAL DIFF REQ NO Normal [facility] Comment on above: Performed By: #### C BC #### [facility] [address] [place] [address] Dr. Jackelyn Celestin MCH (RBC) [Entitic mass] 31.2 pg Normal 26.7-34.0 [facility] Comment on above: Performed By: #### C BC #### [facility] [address] [place] [address] Dr. Jackelyn Celestin MCHC (RBC) [Mass/Vol] 35.4 g/dL Critically high 29.9-35.2 [facility] Comment on above: Performed By: #### C BC #### [facility] [address] [place] [address] Dr. Jackelyn Celestin MCV (RBC) [Entitic vol] 88.1 fL Normal 81.0-99.0 [facility] Comment on above: Performed By: #### C BC #### [facility] [address] [place] [address] Dr. Jackelyn Celestin MONO # 0.4 103/ul Normal 0.3-0.8 [facility] Comment on above: Performed By: #### C BC #### [facility] [address] [place] [address] Dr. Jackelyn Celestin Monocytes/100 WBC (Bld) 3.3 % Normal 1.7-12.0 [facility] Comment on above: Performed By: #### C BC #### [facility] [address] [place] [address] Dr. Jackelyn Celestin NEUT # 8.8 103/ul Critically high 1.4-6.5 [facility] Comment on above: Performed By: #### C BC #### [facility] [address] [place] [address] Dr. Jackelyn Celestin Neutrophils/100 WBC (Bld) 78.8 % Critically high 43.0-75.0 [facility] Comment on above: Performed By: #### C BC #### [facility] [address] [place] [address] Dr. Jackelyn Celestin Platelet mean volume (Bld) [Entitic vol] 11.6 fL Normal 9.5-13.5 [facility] Comment on above: Performed By: #### C BC #### [facility] [address] [place] [address] Dr. Jackelyn Celestin PLT 203 103/ul Normal 150-450 [facility] Comment on above: Performed By: #### C BC #### [facility] [address] [place] [address] Dr. Jackelyn Celestin RBC 4.62 106/ul Normal 4.20-5.40 [facility] Comment on above: Performed By: #### C BC #### [facility] [address] [place] [address] Dr. Jackelyn Celestin WBC 11.2 103/ul Critically high 4.0-11.0 [facility] Comment on above: Performed By: #### C BC #### [facility] [address] [place] [address] Dr. Jackelyn Celestin CULTURE URINEon 02-12-2022 CULTURE URINE Culture Observations : NO GROWTH. Normal [facility] Comment on above: Performed By: #### U RCX #### [facility] [address] [place] [address] Dr. Jackelyn Celestin GLYCOHEMOGLOBIN A1Con 2021 ADA RECOMMENDATION SEE BELOW Normal [facility] Comment on above: Result Comment: ADA RECOMMENDED LIMIT 4.0 - 6.0 ADA THERAPEUTIC TARGET < 7.0 ACTION SUGGESTED > 7.0 Performed By: #### [id number] #### [facility] [address] [place] [address] Dr. Jackelyn Celestin Glucose [Mass/Vol] 94 mg/dL Normal [facility] Comment on above: Performed By: #### 4 [id number] #### [facility] [address] [place] [address] Dr. Jackelyn Celestin HbA1c (Bld) [Mass fraction] 4.9 % Normal 4.5-6.2 [facility] Comment on above: Performed By: #### 4 [id number] #### [facility] [address] [place] [address] Dr. Jackelyn Celestin TYPE AND SCREENon 02-12-2022 TYPE AND SCREEN Negative Normal [facility] Comment on above: Performed By: #### T NS #### [facility] [address] [address] [address] Jackelyn Celestin US PREG TVon 01-21-2022 [...] by: DONALD AGUILAR Date: 2022-01-21 16:41 Normal [facility] Coding Summary.on 12-12-2019 Coding Summary. CODING DATE: 020 [facility] STATUS: Home (Routine DC) PAYOR: Self [...] CphT Date Saved: 12/12/2019 10:59 am Normal [facility] Office/Clini c Noteon 11-21-2019 [...] day(s), # 20 tab(s), Refills(s) 0, [facility], 159, cm, 11/21/19 19:13:00 EDT, Height/Length Dosing, 96, kg, 11/21/19 19:13:00 EDT, Weight Dosing Follow-up No qualifying data available Patient Education Body Mass Index, BMI DASH Diet MyPlate from [employer] Obesity Otitis Media, Adult Problem List/Past Medical [...] cancer: Grandparent. Hypertension: Grandparent. Stroke: Grandparent. Normal [facility] Comment on above: Result Comment: Akira hebert Signed By: SUKHDEEP STANFORD CNP.ynes\Date and Time Signed: 11/21/19 20:02 EDT Patient [...] Document Reviewed: 01/04/2006 ExitCare? Patient Information ?2014 [email or web address]. DASH Diet The DASH diet stands for [...] beef, chicken breast, turkey breast. All fish. Hale, bake, or broil your meat. Nothing should [...] Document Reviewed: 03/15/2012 ExitCare? Patient Information ?2013 [employer], [facility]. [employer], [employer] The amount you need to eat from [...] Document Reviewed: 06/16/2008 ExitCare? Patient Information ?2013 [facility], [facility]. Family Medicine Obesity Obesity is [...] Document Reviewed: 05/02/2012 ExitCare? Patient Information ?2013 [email or web address]. Otitis Media, Adult A middle ear infection [...] the first few days. ? Only take [id number] or prescription medicines for pain, discomfort, or [...] Document Reviewed: 10/31/2008 ExitCare? Patient Information ?2013 [email or web address]. Normal [facility] SARS-CoV-2, NAAon 11-20-2019 SARS CORONAVIRUS 2 RNA:PRTHR:PT:RESPIRATO RY:ORD:PROBE.AMP.TAR Not Detected Not Detected [facility] Comment on above: Result Comment: This test was developed and its performance characteristics determined by [employer]. This test has not been FDA cleared [...] this assay. Performed at: [facility] [address] [place] [id number] MD Malaika Velez Performed By: #### S ARS-CoV-2, ALONDRA #### [facility] [address] [place] [address] Family Medicine Video Visit - Telehealthon 11-16-2019 [...] interactive video communications from my office using [employer] due to the restrictions of the COVID-19 pandemic. No physical exam was conducted other than those areas of the body visible to telecommunications with the patient located at [address] [phone], with no one else in attendance. If [...] cancer: Grandparent. Hypertension: Grandparent. Stroke: Grandparent. Normal [facility] Comment on above: Result Comment: Elec tronically Signed By: SEAN KIM, Abbey Wilkerson\Date and Time Signed: 11/16/19 14:27 EDT URINE CULTUREon 07-10-2017 Urine culture, bacteria SPECIMEN DESCRIPTION URINE CLEAN CATCHUA DIPSTICK NITRITE NEGATIVE * Result Note: LEUKOCYTE NEGATIVE *CULTURE ESCHERICHIA COLI * Result Note: 50,000 C/C/ML * * Result Note: Testing performed at [place] [address] *REPORT STATUS 07/10/2017 * Result Note: FINAL * O RGANISM ESCHERICHIA COLI * Result Note: ESCHERICHIA COLI *METHOD MICAMPICILLIN <=2 SUSCEPTIBLEAMPICILLIN/SULBA CTAM <=2 SUSCEPTIBLECEFTRIAXONE <=1 SUSCEPTIBLECEFAZOLIN <=4 SUSCEPTIBLEIMIPENEM <=0.25 SUSCEPTIBLEGENTAMICIN <=1 SUSCEPTIBLETRIMETH-SULFA <=20 SUSCEPTIBLEAMOXICILLIN/CLAV ULANIC A <=2 SUSCEPTIBLENITROFURANTOIN 32 SUSCEPTIBLEPIPERACILLIN/SADA OBACTAM <=4 SUSCEPTIBLELEVOFLOXACIN <=0.12 SUSCEPTIBLEESBL NEGATIVECEFTAZIDIME <=1 SUSCEPTIBLE Normal [facility] Comment on above: Performed By: #### A URNC ####Testing performed at [facility] [place], [place] [address]Fsqktqa performed at [facility] [place] [address] BHCG,QUANTITATIVEon 07-08-19 18 BHCG,QUANTITATIVE 133.56 MIU/ML Normal [facility] Comment on above: Result Comment: BHCG INTERPRETIVE [...] #### A CBC CG2 ####Testing performed at [address] [address] CBCon 07-07-2017 ABSOLUTE BAS 0.1 X10 Normal [facility] Comment on above: Performed By: #### A CBC CG2 ####Testing performed at [address] [address] ABSOLUTE EOS 0.20 X10 Normal [facility] Comment on above: Performed By: #### A CBC [facility] ####Testing performed at [address] [address] Basophils/100 WBC Auto (Bld) 0.6 % Normal 0.0-2.0 [facility] Comment on above: Performed By: #### A CBC CG2 ####Testing performed at [address] [address] DTYPE AUTO DIFF Normal [facility] Comment on above: Performed By: #### A CBC CG2 ####Testing performed at [address] [address] Eosinophils/100 leukocytes 2.0 % Normal 0.0-11.0 [facility] Comment on above: Performed By: #### A CBC CG2 ####Testing performed at [address] [address] Lymphocytes 2.00 X10 Normal [facility] Comment on above: Performed By: #### A CBC, CG2 ####Testing performed at [address] [address] Lymphocytes/100 leukocytes 23.0 % Normal 20.0-55.0 [facility] Comment on above: Performed By: #### A CBC, BHCG2 ####Testing performed at [address] [address] Monocytes 0.6 X10 Normal [facility] Comment on above: Performed By: #### A CBC, BHCG2 ####Testing performed at [address] [address] Monocytes/100 leukocytes 7.1 % Normal 0.0-10.0 [facility] Comment on above: Performed By: #### A CBC, BHCG2 ####Testing performed at [address] [address] Neutrophils 5.9 x10 Normal 1.0-7.0 [facility] Comment on above: Performed By: #### A CBC, BHCG2 ####Testing performed at [address] [address] Neutrophils/100 leukocytes 67.3 % Normal 37.0-75.0 [facility] Comment on above: Performed By: #### A CBC, BHCG2 ####Testing performed at [address] [address] Erythrocyte distribution width Auto Ratio (RBC) 12.1 % Normal 11.5-14.5 [facility] Comment on above: Performed By: #### A CBC, BHCG2 ####Testing performed at [address] [address] Erythrocytes (RBC) 4.72 /cmm Normal 4.0-5.4 [facility] Comment on above: Performed By: #### A CBC, BHCG2 ####Testing performed at [address] [address] Hematocrit (HCT) 43.2 % Normal 36.0-48.0 [facility] Comment on above: Performed By: #### A CBC, BHCG2 ####Testing performed at [address] [address] Hemoglobin mass conc (Bld) 15.1 g/dL Normal 12.0-16.0 [facility] Comment on above: Performed By: #### A CBC, BHCG2 ####Testing performed at [address] [address] MCH 32.0 pg Normal 26.0-35.0 [facility] Comment on above: Performed By: #### A CBC BHCG2 ####Testing performed at [address] [address] MCHC mass conc (RBC) 35.0 g/dL Normal 27.0-37.0 [facility] Comment on above: Performed By: #### A CBC BHCG2 ####Testing performed at [address] [address] MCV 91.5 fL Normal 80.0-100.0 [facility] Comment on above: Performed By: #### A CBC BHCG2 ####Testing performed at [address] [address] Platelet mean volume (PMV) 9.2 fL Normal 7.4-11.0 [facility] Comment on above: Performed By: #### A CBC BHCG2 ####Testing performed at [address] [address] Platelets 235 /cmm Normal 130.0-400. 0 [facility] Comment on above: Performed By: #### A CBC BHCG2 ####Testing performed at [address] [address] WBC (Leukocytes) 8.8 /cmm Normal 3.6-11.0 [facility] Comment on above: Performed By: #### A CBC BHCG2 ####Testing performed at [address] [address] ED NOTEon 07-07-2017 [facility] NOTES Normal [facility] ED PROVIDERon 07-07-2017 [facility] NOTES Normal [facility] URINE MACROSCOPICon 07-08-19 18 Bilirubin Ql (U) Negative Normal NEGATIVE [facility] Comment on above: Performed By: #### U MAC, UMIC ####Testing performed at [address] [address] URINE HEMOGLOBIN LARGE Abnormal NEGATIVE [facility] Comment on above: Performed By: #### U MAC, UMIC ####Testing performed at [address] [place] [address] URINE KETONE Negative Normal NEGATIVE [facility] Comment on above: Performed By: #### U MAC, UMIC ####Testing performed at [address] [place] [address] URINE LEUKOTEST Negative Normal NEGATIVE [facility] Comment on above: Performed By: #### U MAC, UMIC ####Testing performed at [address] [place] [address] URINE NITRATES Negative Normal NEGATIVE [facility] Comment on above: Performed By: #### U MAC, UMIC ####Testing performed at [address] [place] [address] URINE SPEC GRAVITY 1.025 Normal 1.010-1.0 2 5 [facility] Comment on above: Performed By: #### U MAC, UMIC ####Testing performed at [address] [place] [address] URINE TOTAL PROTEIN Negative Normal NEGATIVE [facility] Comment on above: Performed By: #### U MAC, UMIC ####Testing performed at [address] [place] [address] Urine, clarity CLEAR Normal CLEAR [facility] Comment on above: Performed By: #### U MAC, UMIC ####Testing performed at [address] [place] [address] Urine, color YELLOW Normal YELLOW [facility] Comment on above: Performed By: #### U MAC, UMIC ####Testing performed at [address] [place] [address] Urine, glucose presence Negative Normal NEGATIVE [facility] Comment on above: Performed By: #### U MAC, UMIC ####Testing performed at [address] [place] [address] Urine, pH 7.0 [pH] Normal 5.0-7.0 [facility] Comment on above: Performed By: #### U MAC, UMIC ####Testing performed at [address] [place] [address] Urine, urobilinogen 1.0 mg/dl Normal 0.2-1.0 [facility] Comment on above: Performed By: #### U MAC, UMIC ####Testing performed at [address] [address] URINE MICROSCOPICon 07-08-19 18 CRYSTAL OCCASIONAL Abnormal NONE [facility] Comment on above: Result Comment: CHRIS PHOUS PHOSPHATES Performed By: #### U MAC, UMIC ####Testing performed at [address] [address] URINE COMMENT REFLEX CULTURE PER ESTABLISHED CRITERIA. Normal [facility] Comment on above: Performed By: #### U MAC, UMIC ####Testing performed at [address] [address] URINE WBC'S 1 TO 5 Normal NEGATIVE [facility] Comment on above: Performed By: #### U MAC, UMIC ####Testing performed at [address] [address] Urine, bacteria in sediment 1+ Abnormal NEGATIVE [facility] Comment on above: Performed By: #### U MAC, UMIC ####Testing performed at [address] [address] Urine, casts in sediment NONE Normal NONE [facility] Comment on above: Performed By: #### U MAC, UMIC ####Testing performed at [address] [place] [address] Urine, epithelial cells in sediment 1 TO 5 Normal [facility] Comment on above: Performed By: #### U MAC, UMIC ####Testing performed at [address] [address] Urine, erythrocytes 1 TO 5 Normal NEGATIVE [facility] Comment on above: Performed By: #### U MAC, UMIC ####Testing performed at [address] [address] Urine, mucus presence in sediment Negative Normal NEGATIVE [facility] Comment on above: Performed By: #### U MAC, UMIC ####Testing performed at [address] [address] BhCG Quanton 07-05-2017 HCG.beta subunit Qn 238.0 mIU/m Normal [facility] Comment on above: Result Comment: FEMA LE (NON-) & MALE <3 BORDERLINE 3 - 5 SUGGEST REPEAT TESTING FEMALE () 1 D - 1 WK 5 - 50 1 - 2 WK 50 - 500 2 - 3 WK 100 - 5000 3 - 4 WK 500 - 43007 4 - 5 WK 1000 - [address] 5 - 6 WK [address] - 100852 6 - 8 WK [address] - 698021 2 - 3 [place] [address] - 251151 Performed By: #### 2 [id number] ####JIMMIEJonathan DanZfsTlml4371 [place] [address] Auto Diffon 07-04-2017 Basophils Auto #/vol (Bld) 0.1 E3/mcL Normal 0.0-0.2 [facility] Comment on above: Order Comment: Order Added by Discern Expert. Performed By: #### 2 135136 ####JIMMIE DanOvuTjot7732 [place] [address] Basophils/100 WBC Auto (Bld) 0.6 % Normal 0.0-2.0 [facility] Comment on above: Order Comment: Order Added by Discern Expert. Performed By: #### 2 363272 ####JIMMIE DanCceQhfe3086 [place] [address] Eos Absolute 0.3 E3/mcL Normal 0.0-0.7 [facility] Comment on above: Order Comment: Order Added by Discern Expert. Performed By: #### 2 [id number] ####JIMMIE DanCloToyj9945 [place] [address] Eosinophils/100 leukocytes 2.5 % Normal 0.0-11.0 [facility] Comment on above: Order Comment: Order Added by Discern Expert. Performed By: #### 2 741794 ####JIMMIE DanQfgJoyi5979 [place] [address] Lymphocytes 2.3 E3/mcL Normal 1.2-3.4 [facility] Comment on above: Order Comment: Order Added by Discern Expert. Performed By: #### 2 685748 ####JIMMIE DanTutDyab3483 [place] [address] Lymphocytes/100 leukocytes 22.2 % Normal 20.0-55.0 [facility] Comment on above: Order Comment: Order Added by Discern Expert. Performed By: #### 2 962023 ####JIMMIE Ozunao1025 [place] [address] Hancock Absolute 0.8 E3/mcL High 0.0-0.7 [facility] Comment on above: Order Comment: Order Added by Discern Expert. Performed By: #### 2 570349 ####JIMMIE [address]unao[address] [place] [address] Monocytes/100 leukocytes 7.6 % Normal 0.0-10.0 [facility] Comment on above: Order Comment: Order Added by Discern Expert. Performed By: #### 2 223531 ####JIMMIE Ozunao[address] [place] [address] Neutro Absolute 6.9 E3/mcL High 1.4-6.5 [facility] Comment on above: Order Comment: Order Added by Discern Expert. Performed By: #### 2 656734 ####JIMMIE [address]unao[address] [place] [address] Neutro Auto 67.1 % Normal 37.0-75.0 [facility] Comment on above: Order Comment: Order Added by Discern Expert. Performed By: #### 2 242315 ####JIMMIE DanIjeCsxr7299 [place] [address] BMPon 07-04-2017 BUN/Creatinine Ratio 21.7 ratio Normal 5.4-30.0 [facility] Comment on above: Performed By: #### 2 647516 ####JIMMIE DanUpiKaag2746 [place] [address] Creatinine 0.6 mg/dL Normal 0.6-1.3 [facility] Comment on above: Performed By: #### 2 122986 ####JIMMIE DanIayDpqr7569 [place] [address] Urea nitrogen 13 mg/dL Normal 7-18 [facility] Comment on above: Performed By: #### 2 810404 ####JIMMIE DanJlkPrdy2070 [place] [address] Calcium 8.4 mg/dL Normal 8.4-10.2 [facility] Comment on above: Performed By: #### 2 527362 ####JIMMIE DanAloBoqt5933 [place] [address] Chloride 100 mmol/L Normal 98-107 [facility] Comment on above: Performed By: #### 2 128462 ####JIMMIE UnmQemv8710 [place] [address] CO2 27.7 mmol/L Normal 24.0-30.0 [facility] Comment on above: Performed By: #### 2 964432 ####JIMMIE VetZrex6638 [place] [address] Glucose mass conc 98 mg/dL Normal 70-99 [facility] Comment on above: Performed By: #### 2 463162 ####JIMMIE XktOsoy4566 [place] [address] Potassium molar conc 3.4 mmol/L Low 3.5-5.1 [facility] Comment on above: Performed By: #### 2 952106 ####JIMMIE UycSvpy4957 [place] [address] Sodium 133 mmol/L Low 136-145 [facility] Comment on above: Performed By: #### 2 105989 ####JIMMIE VpeHjyx6342 [place] [address] BhCG Quanton 07-04-2017 HCG.beta subunit Qn 190.8 mIU/m Normal [facility] Comment on above: Result Comment: FEMA LE (NON-) & MALE <3 BORDERLINE 3 - 5 SUGGEST REPEAT TESTING FEMALE () 1 D - 1 WK 5 - 50 1 - 2 WK 50 - 500 2 - 3 WK 100 - 5000 3 - 4 WK 500 - [address] 4 - 5 WK 1000 - [address] 5 - 6 WK [address] - 265503 6 - 8 WK [address] - 582964 2 - 3 [place] [address] - [address] Performed By: #### 2 824358 ####JIMMIE DanKcfBvpk2656 [place] [address] CBC w/ Auto Diffon 8 Erythrocyte distribution width Auto Ratio (RBC) 11.6 % Normal 11.5-14.5 [facility] Comment on above: Performed By: #### 2 172254 ####JIMMIE DanZdkSqtt9256 [place] [address] Erythrocytes (RBC) 4.43 E6/mcL Normal 3.90-5.40 [facility] Comment on above: Performed By: #### 2 380405 ####JIMMIE DanPtlTvpo3141 [place] [address] Hematocrit (HCT) 40.1 % Normal 36.0-48.[address] [facility] Comment on above: Performed By: #### 2 448655 ####JIMMIE DanLmmUqlm1436 [place] [address] Hemoglobin mass conc (Bld) 14.1 g/dL Normal 12.0-16.0 [facility] Comment on above: Performed By: #### 2 307468 ####JIMMIE DanKhbQxet7188 [place] [address] MCH 31.7 pg High 27.0-31.0 [facility] Comment on above: Performed By: #### 2 665504 ####JIMMIE Ozunao1025 [place] [address] MCHC mass conc (RBC) 35.1 g/dL Normal 33.0-37.0 [facility] Comment on above: Performed By: #### 2 569214 ####JIMMIE DanHizSthc8608 [place] [address] MCV 90.4 fL Normal 78.0-100.0 [facility] Comment on above: Performed By: #### 2 718710 ####JIMMIE DanNagUnro5367 [place] [address] Platelet mean volume (PMV) 8.4 fL Normal 7.4-11.0 [facility] Comment on above: Performed By: #### 2 346267 ####JIMMIE DanGddKrnd4551 [place] [address] Platelets 232 E3/mcL Normal 130-400 [facility] Comment on above: Performed By: #### 2 396151 ####JIMMIE DanUmrIuky6410 [place] [address] WBC (Leukocytes) 10.3 E3/mcL Normal 3.6-11.0 [facility] Comment on above: Performed By: #### 2 276785 ####JIMMIE DanLwvBdsu7633 [place] [address] Hep Func Panelon 07-04-2017 Alanine aminotransferase (ALT) 15 Int._Unit/L Normal 10-40 [facility] Comment on above: Performed By: #### 2 581573 ####JIMMIE ZpkZedb4076 [place] [address] Albumin 3.8 g/dL Normal 3.2-5.0 [facility] Comment on above: Performed By: #### 2 849006 ####JIMMIEJonathan GreshamFcaLeer0156 [place] [address] Albumin/Globulin Ratio 1.4 {ratio} Normal 1.1-1.9 [facility] Comment on above: Performed By: #### 2 826290 ####JIMMIEJonathan GreshamOakFlcm5394 [place] [address] Alk Phos 36 Int._Unit/L Low 42-121 [facility] Comment on above: Performed By: #### 2 203949 ####JIMMIEJonathan GreshamMdjRkig1377 [place] [address] Aspartate aminotransferase (AST) 18 Int._Unit/L Normal 10-42 [facility] Comment on above: Performed By: #### 2 761828 ####JIMMIE AjcNueg3749 [place] [address] Bili Direct <.10 Normal .00-.20 [facility] Comment on above: Performed By: #### 2 775687 ####JIMMIE RbkIlsj8950 [place] [address] Bili Indirect >0.7 Normal [facility] Comment on above: Result Comment: No e stablished ranges available for the Indirect Biliruben. Performed By: #### 2 902669 ####JIMMIEJonathan DanNrkEvqm3857 [place] [address] Bili Total 0.8 mg/dL Normal 0.2-1.0 [facility] Comment on above: Performed By: #### 2 630212 ####JIMMIEJonathan DnaAuaXljd5224 [place] [address] Globulin 2.8 g/dL Normal 2.0-4.0 [facility] Comment on above: Performed By: #### 2 914216 ####JIMMIEJonathan GreshamNhsPukw7338 [place] [address] Protein 6.6 g/dL Normal 6.4-8.3 [facility] Comment on above: Performed By: #### 2 002291 ####JIMMIE DybWjso0123 [place] [address] Lipase Levelon 07-04-2017 Lipase Lvl 19 U/L Normal 8-57 [facility] Comment on above: Performed By: #### 2 866721 ####JIMMIE GvwNwgh4689 [place] [address] U BhCG Qlton 07-04-2017 HCG.beta subunit Qn Positive Normal Neg [facility] Comment on above: Performed By: #### 2 668131 ####JIMMIE Urinalysis Manual Fxbqxgmfof5903 [place] [address] UA Completeon 07-04-2017 UA Blood 3+ Normal Negative [facility] Comment on above: Performed By: #### 8 [id number] ####JIMMIE Urinalysis Automated Cieaqaqqry0397 [place] [address] UA Bacteria Trace Abnormal None [facility] Comment on above: Performed By: #### 8 [id number] ####JIMMIE Urinalysis Automated Mvnfooxeft3257 [place] [address] UA Clarity SltCloudy Abnormal Clear [facility] Comment on above: Performed By: #### 8 0561015 ####JIMMIE Urinalysis Automated Jnzxyiddos4155 [place] [address] UA Leuk Est Trace Normal Negative [facility] Comment on above: Performed By: #### 8 [id number] ####JIMMIE Urinalysis Automated Kbqyeceiqn5504 [place] [address] UA Mucous Occasional Abnormal Trace [facility] Comment on above: Performed By: #### 8 6873599 ####JIMMIE Urinalysis Automated Lbgryjqajc2820 [place] [address] UA Nitrite Negative Normal Negative [facility] Comment on above: Performed By: #### 8 0006577 ####JIMMIE Urinalysis Automated Ewimxrkfcn8547 [place] [address] UA pH 5.0 Normal 4.6-8.0 [facility] Comment on above: Performed By: #### 8 1974478 ####JIMMIE Urinalysis Automated Fasvrbdsdk0409 [place] [address] UA Protein Negative Normal Negative [facility] Comment on above: Performed By: #### 8 [id number] ####JIMMIE Urinalysis Automated Tmzfywhynj0205 [place] [address] UA Spec Grav 1.027 Normal 1.003-1.03 0 [facility] Comment on above: Performed By: #### 8 [id number] ####JIMMIE Urinalysis Automated Zjyuicubsb0843 [place] [address] UA Squam Epithelial 0-5 Normal 0-5 [facility] Comment on above: Performed By: #### 8 [id number] ####JIMMIE Urinalysis Automated [address] [place] [address] UA Urobilinogen Negative Normal [facility] Comment on above: Performed By: #### 8 [id number] ####JIMMIE Urinalysis Automated Zbpttyqncr8954 [place] [address] UA WBC 10-20 Abnormal 0-5 [facility] Comment on above: Performed By: #### 8 4847643 ####JIMMIE Urinalysis Automated Ukjvmreeas8807 [place] [address] Urine, color Yellow Normal Yellow [facility] Comment on above: Performed By: #### 8 7723000 ####JIMMIE Urinalysis Automated Ygdcbjigno2129 [place] [address] Urine, erythrocytes 5-10 Abnormal 0-3 [facility] Comment on above: Performed By: #### 8 [id number] ####JIMMIE Urinalysis Automated Hnqzzgfmbs5196 [place] [address] Urine, glucose Negative Normal Negative [facility] Comment on above: Performed By: #### 8 [id number] ####JIMMIE Urinalysis Automated Plyzvqfxgz2291 [place] [address] Urine, ketones presence Negative Normal Negative [facility] Comment on above: Performed By: #### 8 [id number] ####JIMMIE Urinalysis Automated Fxskzfiean9174 [place] [id number] Urine, urobilinogen Negative Normal Negative [facility] Comment on above: Performed By: #### 8 [id number] ####JIMMIE Urinalysis Automated Pnjcniqgcq6592 [place] [address] eGFRon 07-04-2017 eGFR (non-black) mL/min/{1.73_m2} Normal [facility] Comment on above: Order Comment: Order added by Discern Expert. Performed By: #### 1 [id number] ####JIMMIE CsuOcqj0026 [place] [address] Vital Signs Date Time Vital Sign Value Performing Clinician Facility 12-04-2023 18:07-0400 Body mass index (BMI) [Ratio] 37.2 kg/m2 [employer] Work Phone: [facility] 12-04-2023 18:07-0400 Body temperature 98.71 [degF] [employer] Work Phone: [facility] 12-04-2023 18:07-0400 Body weight 95.25 kg [employer] Work Phone: [facility] 12-04-2023 18:07-0400 Diastolic blood pressure 88 mm[Hg] [employer] Work Phone: [facility] 12-04-2023 18:07-0400 Heart rate 88 /min Eris Romero DO Work Phone: [facility] 12-04-2023 18:07-0400 SaO2% (BldA) [Mass fraction] 98 % [employer] Work Phone: [facility] 12-04-2023 18:07-0400 Systolic blood pressure 120 mm[Hg] [employer] Work Phone: [facility] 04-20-2023 14:07-0500 Diastolic blood pressure 75 mm[Hg] [facility] 04-20-2023 14:07-0500 Heart rate 93 /min [facility] 04-20-2023 14:07-0500 Respiratory rate 18 /min [facility] 04-20-2023 14:07-0500 SaO2% (BldA) [Mass fraction] 99 % [facility] 04-20-2023 14:07-0500 Systolic blood pressure 127 mm[Hg] [facility] [address] [place] [address] 04-20-2023 14:06-0500 Body height 160 cm [facility] 04-20-2023 14:06-0500 Body mass index (BMI) [Ratio] 37.22 kg/m2 [facility] [address] [place] [address] 04-20-2023 14:06-0500 Body temperature 97.7 [degF] [facility] [address] [place] [address] 04-20-2023 14:06-0500 Body weight 95.3 kg [facility] [address] [place] [address] 03-10-2023 23:05-0500 Diastolic blood pressure 80 mm[Hg] Supriya Aichholz Work Phone: [facility] 03-10-2023 23:05-0500 Heart rate 100 /min Supriya Aichholz Work Phone: [facility] 03-10-2023 23:05-0500 Respiratory rate 20 /min Supriya Aichholz Work Phone: [facility] 03-10-2023 23:05-0500 SaO2% (BldA) [Mass fraction] 98 % Supriya Aichholz Work Phone: [facility] 03-10-2023 23:05-0500 Systolic blood pressure 137 mm[Hg] Supriya Aichholz Work Phone: [facility] 03-10-2023 17:38-0500 Body temperature 97.9 [degF] Supriya Aichholz Work Phone: [facility] 03-10-2023 17:32-0500 Body height 160.02 cm Supriya Aichholz Work Phone: [facility] 03-10-2023 17:32-0500 Body weight 95 kg Supriya Aichholz Work Phone: [facility] Encounters Encounter Date Encounter Type Care Provider Facility Start: 10-22-2024 End: 10-22-2024 Bamboo flowsheet Xin Morteza DO Work Phone: [facility] Start: 10-22-2024 End: 10-22-2024 Bamboo flowsheet Xin Morteza DO Work Phone: [facility] Start: 10-22-2024 End: 10-22-2024 Clinisync Result Encounter Xin Morteza DO Work Phone: [facility] External Department Unsolicited Start: 12-04-2023 End: 12-04-2023 Office outpatient new 30 minutes Eris Romero DO Work Phone: [facility] Comment on above: Allergic conjunctivi tis of both eyes (Primary Dx) Start: 12-04-2023 End: 12-04-2023 ambulatory ERIS ROMERO Not Available Start: 12-04-2023 End: 12-04-2023 Bamboo flowsheet Eris Romero DO Work Phone: [facility] Start: 12-04-2023 End: 12-04-2023 Bamboo flowsheet Eris Romero DO Work Phone: [facility] Start: 11-27-2023 End: 11-27-2023 ambulatory STEFAN SHEMAR Not Available Start: 10-11-2023 End: 10-11-2023 ambulatory XIN MORTEZA [...] MORTEZA Not Available Start: 05-22-2023 End: 05-22-2023 [facility] Start: 05-22-2023 End: 05-22-2023 Postop follow up [...] Evaluation and management of inpatient SUKI Sarah [facility] Start: 05-04-2023 End: 05-04-2023 Evaluation and management of inpatient [facility] Start: 04-20-2023 End: 04-20-2023 [facility] Start: 04-20-2023 End: 04-20-2023 Patient encounter procedure [facility] Provider [facility] Start: 03-31-2023 End: 03-31-2023 ambulatory XIN MORTEZA Not Available Start: 03-30-2023 End: 03-30-2023 ambulatory [facility] Start: 03-14-2023 End: 03-14-2023 ambulatory XIN MORTEZA Not Available Start: 03-10-2023 End: 03-11-2023 Emergency department patient visit Jacky Alarcon Facility:[facility] Start: 03-10-2023 End: 03-10-2023 Emergency department patient visit Supriya Cerrato Work Phone: [facility] Work Phone: Start: 03-07-2023 End: 03-07-2023 [...] 07-07-2017 End: 07-07-2017 Emergency department patient visit [facility] Start: 07-05-2017 End: 07-06-2017 Ambulatory Dickson Ahmadi Facility:[facility] Start: 07-04-2017 End: 07-04-2017 Emergency department patient visit Dickson Ahmadi Facility:[facility] Procedures Date Procedure Procedure Detail Performing Clinician Start: 10-22-2024 ALL CBC WITH AUTO DIFF Xin Morteza DO Work Phone: Start: 05-18-2023 ALL CBC WITH AUTO DIFF Xin Morteza DO Work Phone: Start: 07-29-2022 Delivery of Products of Conception, External Approach STEFAN SHEMAR . Start: 07-29-2022 Drainage of Amniotic Fluid, [...] Td Vaccines (5 - Td or Tdap) [facility] Start: 11-19-2024 End: 11-19-2024 Patient encounter procedure 11/19/2024 9:10 AM EDT Office Visit [facility] [address] [place] [id number] Xin Pro, DO [address] [place] [address] [facility] Start: 11-06-2024 End: 11-06-2024 Professional / ancillary services management 11/06/2024 9:00 AM EDT Ancillary Procedure [facility] [address] [place] [id number] [facility] Start: 06-13-2024 End: 06-13-2024 Patient encounter procedure 06/13/2024 9:00 AM EST Office Visit [facility] [address] [place] [phone] Xin Pro, DO [address] [place] [address] [facility] Start: 05-04-2024 Adult BMI Screening Adult BMI Screen ing [facility] Start: 05-04-2024 Tobacco Screening Tobacco Screening [facility] Start: 04-20-2024 Adult BMI Screening Adult BMI Screen ing [facility] Start: 04-20-2024 Tobacco Screening Tobacco Screening [facility] Start: 06-05-2023 End: 06-05-2023 Patient encounter procedure 06/05/2023 9:50 AM EST Routine [facility] [address] [place] [address] Xin Pro DO [address] [facility] [address] [place] [address] [facility] Start: 05-04-2023 End: 05-04-2023 Admission to same day surgery center 05/04/2023 7:30 AM EST - 05/04/2023 9:30 AM EST Surgery [address] [id number] Gerson Malik MD [address] [place] [address] DAVINCI CHOLECYSTECTOMY [facility] Surgery Comment on above: DAVINCI CHOLECYSTECT ANDREA Start: 05-04-2023 End: 05-04-2023 DAVINCI CHOLECYSTECTOMY DAVINCI CHOLECYSTECTOMY CHOLELITHIASIS 05/04/2023 7:30 AM EST [facility] Start: 05-04-2023 End: 05-04-2023 DAVINCI CHOLECYSTECTOMY CHOLANGIOGRAM DAVINCI CHOLECYSTECTOMY CHOLANGIOGRAM CHOLELITHIASIS 05/04/2023 7:30 AM EST [facility] Start: 05-04-2023 Subsequent hospital visit by physician 05/04/2023 7:30 AM EST Hospital Encounter [address] [phone] Gerson Malik MD [address] [place], [place] [id number] [facility] Start: 03-10-2023 US Gallbladder [facility] Start: 03-10-2023 US scan of gallbladder US gall bladd er [facility] Start: 03-10-2023 Bacteria identified in Urine by Culture [facility] Start: 12-09-2022 Influenza vaccination Influenza Vacc ine [facility] Start: 2019 Screening for malign ant neoplasm of cervix Pap Smear [facility] Start: 2016 Adult BMI Follow Up Plan Adult BMI F ollow Up Plan [facility] Start: 2010 [facility] - e Second Month Nausea and Vomiting, Adult ED Gallstones ED [facility] Work Phone: Patient referral [facility] Work Phone: Payers Date Payer Category Payer Unknown [id number] 2022 Private Health Insurance [id number] 2022 Unknown [id number] 2017 Unknown 1998 Unknown [id number] 2.16.84 0.1.058743.3.579.2.593 1998 Unknown [id number] 2.16.84 0.1.016908.3.579.2.593 1998 Unknown [id number] 2.16.84 0.1.456305.3.579.2.593 1998 Unknown [id number] 2.16.84 0.1.935467.3.579.2.593 1998 Unknown [id number] 2.16.84 0.1.057903.3.579.2.593 1998 Unknown [id number] 2.16.84 0.1.114245.3.579.2.593 1998 Unknown [id number] 2.16.84 0.1.501144.3.579.2.593 1998 Unknown [id number] 2.16.84 0.1.405802.3.579.2.593 1998 Unknown [id number] 2.16.84 0.1.525642.3.579.2.593 1998 Unknown [id number] 2.16.84 0.1.523403.3.579.2.593 1998 Unknown [id number] 2.16.84 0.1.933611.3.579.2.593 1998 Unknown [id number] 2.16.84 0.1.849429.3.579.2.593 1998 Unknown [id number] 2.16.84 0.1.935704.3.579.2.593 1998 Unknown [id number] 2.16.8 40.1.377681.3.579.2.1286 1998 Unknown [id number] 2.16.8 40.1.674579.3.579.2.1286 1998 Unknown [id number] 2.16.8 40.1.181126.3.579.2.1286 1998 Unknown [id number] 2.16.8 40.1.458388.3.579.2.1286 1998 Unknown [id number] 2.16.84 0.1.493529.3.579.2.1286 1998 Unknown [id number] 2.16.84 0.1.883517.3.579.2.1286 1998 Unknown [id number] 2.16.84 0.1.653939.3.579.2.1259 1998 Unknown [id number] 2.16.84 0.1.498415.3.579.2.1259 1998 Unknown [id number] 2.16.84 0.1.090155.3.579.2.1259 1998 Unknown [id number] 2.16.84 0.1.906275.3.579.2.1259 1998 Unknown [id number] 2.16.84 0.1.614099.3.579.2.1259 1998 Unknown [id number] 2.16.84 0.1.928515.3.579.2.1259 1998 Unknown [id number] 2.16.84 0.1.168159.3.579.2.1259 1998 Unknown [id number] 2.16.84 0.1.403351.3.579.2.1259 1998 Unknown [id number] 2.16.84 0.1.936647.3.579.2.1259 1998 Unknown [id number] 2.16.84 0.1.313070.3.579.2.1259 1998 Unknown [id number] 2.16.84 0.1.713698.3.579.2.1259 1998 Unknown [id number] 2.16.840 .1.141521.3.579.2.1259 1998 Unknown [id number] 2.16.840 .1.309783.3.579.2.1259 1998 Unknown [id number] 2.16.840 .1.011659.3.579.2.1259 1959 Private Health Insurance [id number] 1959 Self-pay 1959 Unknown [id number] 1959 Unknown [id number] Unknown [id number] 2.16.8 40.1.839853.3.579.2.531 Social History Date Type Detail Facility Start: 03-10-2023 End: 05-16-2023 Tobacco smoking status HIIS Never smoked tobacco (finding) [facility] Start: 2000 Sex Assigned At Female F [facility] Start: 03-30-2023 End: 05-16-2023 Tobacco use and exposure Smokeless tobacco non-user [facility] Start: 05-16-2023 End: 10-22-2024 Alcohol intake Lifetime non-drinker (finding) [facility] Start: 05-16-2023 End: 12-04-2023 History of Social function [facility] Start: 05-16-2023 End: 12-04-2023 Tobacco use panel [facility] Start: 02-10-2023 [facility] Start: 2000 Sex Assigned At Not on file P [facility] Start: 04-20-2023 End: 05-04-2023 Alcohol intake Ex-drinker (finding) [facility] Housing Instability Unknown [facility] History of Present illness Narrative 12-04-2023 Eris Romero, DO - 12/04/2023 6:00 PM EDT Note Date & Type Note Facility 12-04-2023 History of Presen t illness Narrative HPI: Historian of HPI: patient Dary Ashley is a 23 y.o. female who presents today to the Urgent Care with the following ophthalmology complaints and denials which have been present for 3 day(s) and affecting bilateral eye(s) pt states it could possibly be an bilateral allergic reaction to her eyes. Pt states she recently got her eyelashes done. C/O Denies Symptom Comments [x] [] Red eye [x] [] Eye swelling [x] [] Eye itching [] [x] FB sensation [] [x] Blurry vision [] [x] Double vision [] [x] auras [x] [] drainage [x] [] Crusting in the morning [x] [] Burning sensation [] [x] pain Additional Comments: pt has taken eye drops OTC OTC medication without relief ROS: A complete system ROS was performed and negative aside from the pertinent positives noted in the HPI and PE. IH Testing: Vision test performed in office Distance Vision Left 20 / 13 Right 20 / 20 Both 20 / 15 corrected w/ glasses EXAMINATION: General: No acute distress. Awake and alert. Eyes: Injected conjunctiva b/l eye along scant yellow discharge. B/l upper eye lids swollen and erythematous. There was an artificial eye lash in the L lower eye lid. Nose: nonerythematous mucosa b/l, with no drainage CV: RRR without murmurs, rubs or gallops Respiratory: Respirations are non-labored. Lungs are clear to auscultation. Skin: Warm. No rashes or ulcers. MSK: Moving all extremities appropriately. Neuro: Nonfocal 1. Allergic conjunctivitis of both eyes -Advised of [id number] Pataday eyedrops and Zyrtec 10 mg b.I.d. along with p.r.n. Benadryl to help with swelling and redness -Advised her of avoiding any kind of makeup or other foreign substances to the eye unless she is going to try to use some more coconut oil to remove the rest of the lashes as the last clear residue could still be causing allergic reaction - advised her to return to care in 7-10 days if symptoms persist or worsen documented in this encounter [facility] History of Present illness Narrative 05-22-2023 Gerson Malik MD - 05/22/2023 3:15 PM EST Note Date & Type Note Facility 05-22-2023 History of Presen t illness Narrative Images from the original note were not included. Subjective: Dayr Ashley presents to the clinic nearly 2 [...] up: As needed documented in this encounter [facility] Instructions 04-20-2023 Patient Instructions Note Date & Type Note Facility 04-20-2023 Instructions Terri Estrada RN - 04/20/2023 1:45 PM EST Your surgery/procedure is scheduled at [facility] on 05/04/23 at 0730 Arrival Time 0530 [facility] Address: [address] [place] [address] in [address] Parking lot located on [facility]. Report to the Entrance B. Check in at the information desk the surgery. The waiting room located on the second floor. If you have any questions prior to surgery, please call Pre-Admission Clinic at [phone] between 7:30 am and 4:30 pm Monday through Monday. If you have questions the morning of surgery, please call the Pre-op Department at [phone]. PLEASE FOLLOW THESE INSTRUCTIONS OR YOUR SURGERY [...] would like to schedule therapy at a [facility] facility, please call [phone] ([phone]). Do not use lotions, creams, powders, perfume, make up, cologne or after-shaves day of surgery. Remove ALL jewelry including wedding rings, body piercings,hair extensions that contain metal, nail kyrgyz, make-up, and contact lens. You may brush [...] RIGHTS AND RESPONSIBILITIES As a patient at [facility], you have the right to: Receive medical care and be informed of who is taking care of you Be treated with dignity and respect Have a family member/provider relations representative of choice and your physician notified of your admission Receive information and actively participate in decisions about your care and treatment Refuse care, treatment and services Decide who may provide your support and speak for you Access mosque and spiritual services Participate in ethical issues [...] of hospital charges and payment methods Patient/patient provider relations representative responsibilities are to: Provide information about [...] in clean clothes. documented in this encounter [facility] Note 04-20-2023 Perioperative Nursing Note - Lexi Reddy RN - 04/20/2023 1:45 PM EST Note Date & Type Note Facility 04-20-2023 Miscellaneous Notes Formattin g of this note might be different from the original. Appt reminder call done-message left documented in this encounter [facility] Nurse Note 04-20-2023 Perioperative Nursing Note - Lexi Reddy RN - 04/20/2023 1:45 PM EST Note Date & Type Note Facility 04-20-2023 Nurse Note Appt reminder call done-message left [facility] Evaluation note Note Date & Type Note Facility Evaluation note No assessment information [facility] Work Phone: Evaluation note Note Date & Type Note Facility Evaluation note Diagnosis Allergic conjunctivitis of both eyes- Primary Other chronic allergic conjunctivitis documented in this encounter [facility] Healthcare Evaluation note Note Date & Type Note Facility Evaluation note Diagnosis Status post laparoscopic cholecystectomy- Primary Other postprocedural status documented in this encounter [facility] Hospital Discharge instructions Note Date & Type Note Facility Hospital Discharge instructions Additional Instructions Return if symptoms are worse Continue your Zofran and Reglan at home and will add Phenergan for vomiting Follow-up with your surgeon [facility] Work Phone: Instructions Attachments Note Date & Type Note Facility Instructions The following attachments cannot be sent through Care Everywhere.Cholecystectomy Discharge Instructions (Syriac)documented in this encounter [facility] Summary Purpose Family History No Family History Records FoundNo Family History Records FoundNo Family History Records FoundNo Family History Records FoundNo Family History Records FoundNo Family History Records FoundNo Family History Records Found Advance Directives Advance Directive Response Recorded Date/ Time Advance Directives No March 10, 2023 8:32pm Chief Complaint and Reason for Visit Chief Complaint 5wks right side flan k pain Additional Source Comments INFORMATION SOURCE (unrecogn ized section and content) DATE CREATED AUTHOR 09/28/2017 [facility] DATE CREATED AUTHOR AUTHOR'S ORGANIZ ATION 09/29/2017 [facility] DATE CREATED AUTHOR AUTHOR'S ORGANIZ ATION 04/16/2020 [facility] DATE CREATED AUTHOR AUTHOR'S ORGANIZ ATION 08/24/2022 [facility] DATE CREATED AUTHOR AUTHOR'S ORGANIZ ATION 03/21/2023 [facility] DATE CREATED AUTHOR AUTHOR'S ORGANIZ ATION 05/24/2023 [facility] DATE CREATED AUTHOR AUTHOR'S ORGANIZ ATION 12/06/2023 [facility] [employer] Care Teams (unrecognized sec tion and content) Team Status: Active Member Role Status Dates Supriya Cerrato Primary Care Provider Active Team Status: Inactive Member Role Status Dates Supriya Cerrato Primary Care Provider Active Jacky Alarcon MD Emergency Provider Active [employer] Relationship Specialty Start Date End Date Supriya Cerrato APRN-TOOL GRINDER OPERATOR [address] [place] [id number] PCP - General Nurse Practitioner 03/30/23 [employer] Architect Relationship Specialty Start Date End Date Supriya Cerrato APRN-TOOL GRINDER OPERATOR [address] [place] [phone] PCP - General Nurse Practitioner 03/30/23 Goals [...] BE BASED ON THE PRIMARY CLINICAL RECORDS. [employer] [facility]. provides no warranty or guarantee of the accuracy or completeness of information in this document.
== END 2024-10-22 19:42 | disposition home or self-care (01) ==
LOC: LAB 19:41
PROVIDERS: Visit Provider Obstetrics & Gynecology
DX: Z01.419 Encounter for gynecological examination (general) (routine) without abnormal findings (principal)
CPT/HCPCS: 88175

== ENCOUNTER 2024-11-19 15:13 | Outpatient (REF) | payer OTHER, SELFPAY ==
--- OUTSIDE RECORDS SUMMARY | 2024-11-21 15:43 | XMS_ITS | CCD ---
Author Organization [facility] Care Team Providers Care Able Bodied Seaman Name Role Phone [place], Dickson W Unavailable Unavailable [place], Dickson W Unavailable Unavailable No Doctor Assigned, Nodr Unavailable Unavail able Galdino, Dickson W Unavailable Unavailable Galdino, Dickson W Unavailable Unavailable No Doctor Assigned, Nodr Unavailable Unavail able SHEMAR ., STEFAN Admitting Unavailable SHEMAR ., STEFAN Consulting Unavailable AICHHOLZ, CONTINUOUS STILL OPERATOR SUPRIYA Primary Care Unavailable SHEMAR ., STEFAN Attending Unavailable MORTEZA ., DR LAUREN Admitting Unavailable SHEMAR ., STEFAN Consulting Unavailable AICHHOLZ, CONTINUOUS STILL OPERATOR SUPRIYA Primary Care Unavailable MORTEZA ., DR LAUREN Attending Unavailable SHEMAR ., STEFAN Admitting Unavailable SHEMAR ., STEFAN Consulting Unavailable SHEMAR ., STEFAN Attending Unavailable AICHHOLZ, CONTINUOUS STILL OPERATOR SUPRIYA Primary Care Unavailable AICHHOLZ, CONTINUOUS STILL OPERATOR SUPRIYA Primary Care Unavailable MORTEZA ., DR LAUREN Attending Unavailable MORTEZA ., DR LAUREN Admitting Unavailable MORTEZA ., DR LAUREN Admitting Unavailable MORTEZA ., DR LAUREN Attending Unavailable AICHHOLZ, CONTINUOUS STILL OPERATOR SUPRIYA Primary Care Unavailable MORTEZA ., DR LAUREN Consulting Unavailable KARASIK ., DR MURPHY Attending Unavailabl e AICHHOLZ, CONTINUOUS STILL OPERATOR SUPRIYA Primary Care Unavailable KARASIK ., DR MURPHY Admitting Unavailabl e Pam Hart Consulting Unavailable KARASIK ., DR MURPHY Consulting Unavailabl e MORTEZA ., DR LAUREN Attending Unavailable MORTEZA ., DR LAUREN Admitting Unavailable REQUEST, DR FERNANDEZ LISTED Primary Care Unavaila ble MORTEZA ., DR LAUREN Consulting Unavailable MORTEZA ., DR LAUREN Procedure Practitioner Unavail able MORTEZA ., DR LAUREN Admitting Unavailable MORTEZA ., DR LAUREN Consulting Unavailable AICHHOLZ, CONTINUOUS STILL OPERATOR SUPRIYA Primary Care Unavailable MORTEZA ., DR LAUREN Attending Unavailable Souleymaneer, Pam Consulting Unavailable MORTEZA ., DR LAUREN Consulting Unavailable REQUEST, DR NONE LISTED Primary Care Unavaila ble MORTEZA ., DR LAUREN Attending Unavailable MORTEZA ., DR LAUREN Admitting Unavailable Zieber, Pam Consulting Unavailable MORTEZA ., DR LAUREN Admitting Unavailable AICHHOLZ, CONTINUOUS STILL OPERATOR SUPRIYA Primary Care Unavailable MORTEZA ., DR LAUREN Attending Unavailable [place], DR DONALD Bryan Consulting Unavailable MORTEZA ., DR LAUREN Consulting Unavailable MORTEZA ., DR LAUREN Admitting Unavailable AICHHOLZ, CONTINUOUS STILL OPERATOR SUPRIYA Primary Care Unavailable MORTEZA ., DR LAUREN Attending Unavailable MORTEZA ., DR LAUREN Consulting Unavailable SHEMAR ., STEFAN Attending Unavailable SHEMAR ., STEFAN Admitting Unavailable Zieber, Pam Consulting Unavailable REQUEST, DR NONE LISTED Primary Care Unavaila ble SHEMAR ., STEFAN Consulting Unavailable MORTEZA ., DR LAUREN Admitting Unavailable MORTEZA ., DR LAUREN Consulting Unavailable MORTEZA ., DR LAUREN Attending Unavailable AICHHOLZ, CONTINUOUS STILL OPERATOR SUPRIYA Primary Care Unavailable Aichholz, Supriya J Primary Care Provider [phone] MD Jacky Alarcon Emergency Provider Unavailable Primary Care Provider Unavailabl e AL-JUBOURI, AP A Referring Unavailabl e AICHHOLZ, SUPRIYA J [...] Unavailable AICHHOLZ, SUPRIYA J Primary Care Unavailable Aichholz FIRE ENGINE OPERATOR-CONTINUOUS STILL OPERATOR, Supriya J Primary Care Provider Fletcher Pro DO Attending Provider FLETCHER PRO Attending Unavailable FLETCHER PRO Attending Unavailable STEFAN STATON Attending Unavailable RAINER ROMERO Attending Unavailable Fletcher Pro Attending Unavailable Fletcher Pro Admitting Unavailable Allergies Allergy Classification Reported Allergen(s) Allergy Type Date of Onset Reaction(s) Facility (1 source) No Known Medication Allergies; Translations: [No Known Medication Allergies] Propensity to adverse reactions to drug (disorder) [facility] Repository Medications Current Medications Medication Drug Class(es) Dates Sig (Normalized) Sig (Original) cephalexin 500 mg oral capsule (2 sources) Cephalosporin Antibacterial Start: 03-10-2023 take 2 capsules by mouth every twelve hours Start: 03-10-2023 take 1000 mg by mout h every twelve hours Cephalexin Active 1000 MG [...] days 30 capsule 5 05/08/2023 05/18/2023 Active metFORMIN hydrochloride 500 mg oral tablet (1 source) Biguanide Start: 11-19-2024 End: 11-19-2025 take 1 tablet by mouth at mealtime metFORMIN (Glucophage) 500 MG tablet Indications: Weight gain , Insulin resistance Take 1 tablet (500 mg) by mouth in the morning. Take with meals. 30 tablet 11 11/19/2024 11/19/2025 Active ondansetron 4 mg disintegrating oral tablet [...] Active promethazine hydrochloride 25 mg oral tablet (2 sources) Phenothiazine Start: 03-10-2023 take 1 tablet by mouth every six hours as needed for nausea sulfamethoxazole 800 mg / trimethoprim 160 mg oral tablet (3 sources) Dihydrofolate Reductase Inhibitor Antibacterial, Sulfonamide Antimicrobial Start: 10-22-2024 End: 10-29-2024 take 1 tablet by mouth once in the morning, then take 1 tablet by mouth once at bedtime sulfamethoxazole-t rimethoprim (Bactrim DS) 800-160 MG per tablet Indications: UTI symptoms Take 1 tablet by mouth in the morning and 1 tablet before bedtime. Do all this for 7 days. 14 tablet 10/22/2024 10/29/2024 Active Completed/Discontinued Medications Medication Drug Class(es) Dates Sig (Normalized) [...] / zinc oxide 20 mg oral tablet (8 sources) Vitamin B12, Vitamin D, Vitamin C End: 10-22-2024 take 1 tablet by mouth in the morning Vit-DSS-Fe Fum-FA ( 19) tablet Take 1 mg by mouth in the morning. 10/22/2024 Discontinued 21 day ethinyl estradiol 0.800554 mg/hr / etonogestrel 0.005 mg/hr vaginal system (6 sources) Progestin, Estrogen Start: 11-27-2023 End: 10-22-2024 etonogestrel-ethiny l estradiol (NuvaRing) 0.12-0.015 MG/24HR vaginal ring Indications: Encounter for initial prescription of vaginal ring hormonal contraceptive Insert vaginally and leave in place for 21 consecutive days (3 weeks), then remove. Wait for 7 days before inserting new ring. 1 each 11/27/2023 10/22/2024 Discontinued Problems Active Problems Problem Classification Problem Date Documented Date Episodic/Chronic Biliary tract disease (2 sources) Biliary calculus; Translations: [Calculus of gallbladder without cholecystitis without obstruction] 03-10-2023 Episodic Cancer of cervix (2 sources) High grade squamous intraepithelial lesion on cervical Papanicolaou smear; Translations: [High grade squamous intraepithelial lesion on cytologic smear of cervix (HGSIL)] Onset: 11-19-2024 11-19-2024 Episodic Genitourinary symptoms and ill-defined conditions (2 sources) Urinary symptoms ; Translations: [Unspecified symptoms and signs involving the genitourinary system] 10-22-2024 Episodic Menstrual disorders (6 sources) Irregular menstruation, unspecified; Translations: [Menorrhagia] Onset: 02-12-2022 Chronic Nausea and vomiting (2 sources) Vomiting; Translations: [Vomiting, unspecified] 03-10-2023 Episodic Other complications of (4 sources) Maternal care for excessive growth, third trimester, not applicable or unspecified; Translations: [[facility] GR 3RD TRI UNS] Onset: 06-06-2022 Episodic Other endocrine disorders (2 sources) Polycystic ovary syndrome; Translations: [Polycystic ovarian syndrome] 10-22-2024 Chronic Other nervous system disorders (1 source) Other acute postprocedural pain; Translations: [Other acute postprocedural pain] Onset: 05-04-2023 Episodic Other nutritional; endocrine; and metabolic disorders (1 source) Insulin resistance; Translations: [Insulin resistance] 11-19-2024 Chronic Other nutritional; endocrine; and metabolic disorders (1 source) Weight increased; Translations: [Abnormal weight gain] 11-19-2024 Episodic Other and delivery including normal (15 sources) Encounter for supervision of normal , [...] Test Name Value Interpretation Reference Range Facility Colposcopyon 11-19-2024 Nataliia Sandhu LPN 11/08 10:49 AM Colposcopy Date/Time: 11/19/2024 3:05 PM Performed by: Fletcher Pro DO Authorized by: Fletcher Pro DO Consent: Patient questions answered: yes Risks and benefits of the procedure and its alternatives discussed: yes Procedural risks discussed: Bleeding, infection and repeat procedure Consent obtained: Written Consent given by: Patient Indication: Other indication(s): clinical abnormality Pre-procedure: Speculum was placed in the vagina: yes Prep solution(s): acetic acid Procedure: Cervix visibility: fully visualized Post-procedure: Patient tolerance of procedure: Patient tolerated the procedure well with no immediate complications Comments: Colposcopy: Patient is doing well and has no complaints. Pap results have been reviewed with the patient in great detail and patient voiced understanding. Patient presents today for a Colposcopy with ECC. Patient was placed in dorsal lithotomy position with feet in stirrups, a sterile speculum was placed into the vagina and the cervix was visualized. Cervix was cleansed with vinegar. Postprocedural instructions given. All if patients questions answered and she expressed understanding. Advised to call in interim with questions or concerns. Pap was HGSIL- pt to be scheduled for LEEP Rx for metformin faxed to pharmacy pt to return in 4 weeks for adipex. Follow Up: Patient is to return in 6 months for Repeat Pap. [facility] HCG ( test) Ql (U)o n 11-19-2024 Interpretation and review of laboratory results Normal [facility] Preg Test, Ur Negative Negative [facility] Lamberto 11-19-2024 L ------- Specimen: [id number] Received: 11/20/24 Status: RACHEL Guillory Num: [id number] Spec Type: Surgical Subm Dr: Fletcher Pro Tissues: A Endocervix - Curettings (ENDOCERVIX) Procedures: HE/2, Gross/Jose L4 Age/ Patient Sex Location Account Attending Physician Edison Ashley / LABELL [id number] Fletcher Pro SPEC NUM: [id number] RECD: 11/20/24 STATUS: RACHEL GUILLORY NUM: [id number] MAISHA: 11/19/240000 SUBM DR: Fletcher Pro ENTERED: 11/20/24 [facility] DR: Eldon,Don SPEC TYPE: Surgical DEPT: LINDA GUERRERO ENTERED BY: [id number] RECV BY: [id number] ORDERED: HE/2, Gross/Micro L4 ORDERED: HE/2, Gross/Micro L4 Pathological Diagnosis Endocervix, curettage: - Benign endocervical mucosa. - No squamous epithelium present for evaluation. Comment: The patient's history of high grade squamous intraepithelial lesion is noted. Recommend cervical biopsy if clinically indicated. Clinical Information High-grade squamous intraepithelial lesion Gross Description Received in formalin labeled with the patients name, date of , and ECC is a pale bueno mucoid material, admixed with bueno-pink, feathery tissue fragments, 1 x 0.6 x 0.2 cm in aggregate. The specimen is filtered and entirely submitted in a single cassette. (1, moi, [id number]) Microscopic Description Microscopic examination is performed. Specimen: [id number] Received: 11/20/24 Status: RACHEL Marquezmarisela Num: [id number] Spec Type: Surgical Subm Dr: Fletcher Pro Tissues: A Endocervix - Curettings (ENDOCERVIX) Procedures: /2, Gross/Micro L4 Patient: Edison Ashley [id number] (Continued) Specimen: [id number] Received: 11/20/24 (Continued) Signed (signature on file) Demarcus Pham MD 11/21/24 1207 Specimen: [id number] Received: 11/20/24 Status: RACHEL Guillory Num: [id number] Spec Type: Surgical Subm Dr: Fletcher Tavera: A Endocervix - Curettings (ENDOCERVIX) Procedures: HE/Cj, Gross/Jose L4 Patient: Edison Ashley [id number] (Continued) Specimen: [id number] Received: 11/20/24 (Continued) CPT Codes 67069 Specimen: [id number] Received: 11/20/24 Status: RACHEL Guillory Num: [id number] Spec Type: Surgical Subm Dr: Fletcher Morteza Tissues: A Endocervix - Curettings (ENDOCERVIX) Procedures: HE/2, Gross/Micro L4 Patient: Edison Ashley [id number] (Continued) Signed (signature on file) Demarcus Pham MD 11/21/24 1207 Normal [facility] US PELVIC COMPLETE W/ TVon 0 11-06-2024 US PELVIC COMPLETE W/ TV EXAM: US PELVIC COMPLETE W/ TV HISTORY: PCOS, menorrhagia, heavy periods lasting 7 days. COMPARISON: None available. TECHNIQUE: Two-dimensional transabdominal grayscale ultrasound imaging of the pelvis was performed. Color flow Doppler imaging of the ovaries was also performed. Transvaginal was performed. FINDINGS: UTERUS 9.5 x 4.2 x 6.7 cm The uterus is anteverted in position and demonstrates a normal, homogeneous echotexture. ENDOMETRIUM 0.6 cm The endometrium demonstrates a normal, homogeneous echotexture. RIGHT OVARY 2.7 x 1.7 x 1.7 cm The right ovary demonstrates a normal echotexture. The ovarian volume is 4 mL. There is normal color Doppler flow. LEFT OVARY 2.2 x 1.6 x 1.9 cm The left ovary demonstrates a normal echotexture. The ovarian volume is 3 mL. There is normal color Doppler flow. No fluid is present within the cul-de-sac. IMPRESSION: 1. Unremarkable ultrasound of the pelvis. 2. Normal color Doppler flow within the bilateral ovaries. Interpreted by: Electronically signed by RAE CORMIER II, MD, PHD at 07-Nov-2024 08:33:18 AM [facility] Teleradiology Normal Not Available Comment on above: Order Comment: US PE LVIS-TRANSVAG IF INDICATED Patient's last menstrual period was 09/22/2024. ALL CBC WITH AUTO DIFFon BASOPHILS ABSOLUTE AUTO 0 [facility] Basophils/100 WBC (Bld) 0.4 % 0.2 - 2.0 % [facility] Eosinophils/100 WBC (Bld) 4.3 % 0.9 - 7.0 % [facility] Erythrocyte distribution width (RBC) [Ratio] 11.9 % 11.0 - 15.0 % [facility] Hematocrit (Bld) [Volume fraction] 42.9 % 36.0 - 48.0 % [facility] Hemoglobin (Bld) [Mass/Vol] 15 g/dL 12.0 - 16.0 g/dL [facility] IMMATURE GRANULOCYTES ABS AUTO 0.03 [facility] Immature granulocytes/100 WBC (Bld) 0.3 % 0.0 - 0.5 % [facility] Interpretation and review of laboratory results Abnormal [facility] LYMPHOCYTES ABSOLUTE AUTO 2.9 [facility] Lymphocytes/100 WBC (Bld) 27 % 20.5 - 60.0 % [facility] MCH (RBC) [Entitic mass] 30.4 pg 26.7 - 34.0 pg [facility] MCHC (RBC) [Mass/Vol] 35 g/dL 29.9 - 35.2 g/dL [facility] MCV (RBC) [Entitic vol] 86.8 fL 81.0 - 99.0 fL [facility] MONOCYTES ABSOLUTE AUTO 0.7 [facility] Monocytes/100 WBC (Bld) 6.4 % 1.7 - 12.0 % [facility] NEUTROPHILS ABSOLUTE AUTO 6.7 High [facility] Neutrophils/100 WBC (Bld) 61.6 % 43.0 - 75.0 % [facility] Platelet mean volume (Bld) [Entitic vol] 10.7 fL 9.5 - 13.5 fL [facility] TBH EO # 0.5 [facility] TBH PLT 244 [facility] TB RBC 4.94 [facility] TB WBC 10.8 [facility] Urinalysis macro (dipstick) panel (U)on 10-22-2024 Bilirubin, UA Negative Negative - 4(70) +++ mg/dL [facility] Blood, UA Negative Negative - 50 Shai/mcL [facility] Clarity, UA Clear [facility] Color, UA Yellow [facility] Glucose, UA Negative Negative - 1999(110) ++++ mg/dL [facility] Interpretation and review of laboratory results Normal [facility] Ketones, UA Negative Negative - 160(16) ++++ mg/dL [facility] Leukocytes, UA Negative Negative - 500+++ Uche/mcL [facility] Nitrite, UA Negative Negative - Positive [facility] pH, UA 6 5 - 9 [facility] Protein, UA Negative Negative - 1999(20) ++++ mg/dL [facility] Spec Grav, UA 1.01 1 - 1.03 [facility] Urobilinogen, UA 1.0 0.2 - 12 mg/dL [facility] ALL CBC WITH AUTO DIFFon BASOPHILS ABSOLUTE AUTO 0.0 [facility] Basophils/100 WBC (Bld) 0.3 % 0.2 - 2.0 % [facility] Eosinophils/100 WBC (Bld) 2.0 % 0.9 - 7.0 % [facility] Erythrocyte distribution width (RBC) [Ratio] 12.8 % 11.0 - 15.0 % [facility] Hematocrit (Bld) [Volume fraction] 39.3 % 36.0 - 48.0 % [facility] Hemoglobin (Bld) [Mass/Vol] 14.1 g/dL 12.0 - 16.0 g/dL [facility] IMMATURE GRANULOCYTES ABS AUTO 0.07 High [facility] Immature granulocytes/100 WBC (Bld) 0.7 % High 0.0 - 0.5 % [facility] Interpretation and review of laboratory results Abnormal [facility] LYMPHOCYTES ABSOLUTE AUTO 2.0 [facility] Lymphocytes/100 WBC (Bld) 19.1 % Low 20.5 - 60.0 % [facility] MCH (RBC) [Entitic mass] 32.0 pg 26.7 - 34.0 pg [facility] MCHC (RBC) [Mass/Vol] 35.9 g/dL High 29.9 - 35.2 g/dL [facility] MCV (RBC) [Entitic vol] 89.3 fL 81.0 - 99.0 fL [facility] MONOCYTES ABSOLUTE AUTO 0.5 [facility] Monocytes/100 WBC (Bld) 4.7 % 1.7 - 12.0 % [facility] NEUTROPHILS ABSOLUTE AUTO 7.6 High [facility] Neutrophils/100 WBC (Bld) 73.2 % 43.0 - 75.0 % [facility] Platelet mean volume (Bld) [Entitic vol] 11.4 fL 9.5 - 13.5 fL [facility] TBH EO # 0.2 [facility] TB PLT 218 [facility] RBC 4.40 [facility] WBC 10.4 [facility] Surgical Pathologyon 024 Surgical Pathology Normal [facility] Comment on above: Result Comment: [facility] [address] [place] [address] Surgical Pathology Consultation Patient Name:EDISON ASHLEY:2000 (Age: 23)Gender:FTaken:4Reported:05/12/2023hysician(s):GERSON Kelsey To: Rec. 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 No evidence of malignancy or dysplasia. Cholelithiasis. Report Electronically Signed Out ao/4Aolamide Moreno MD Interpretation performed at [facility], [address] [place] [address], License number: [id number]. Clinical History Cholelithiasis. Gross Description Received in [...] congested, hemorrhagic and velvety in the neck. Rod Pointer sections are submitted in cassettes A- B, as: A- cystic duct margin and food products sales representative ragged defects,B- food products sales representative neck body and fundus. After initial microscopic evaluation, additional sections are submitted in cassettes C-E. (5,ss,[id number], m6) MARYJANE/ mxw/05/04/2023SSI Specimen(s) Received Gallbladder Fee Codes(s): 1; 38728 Alanine aminotransferase [En zymatic activity/volume] in Serum or PlasmaOrdered By: Jacky Alarcon on 03-10-2023 ALT [Catalytic activity/Vol] 36 U/L 7-52 [facility] Albumin [Mass/volume] in Ser um or Plasma by Bromocresol green (BCG) dye binding methoOrdered By: Jacky Alarcon on 03-10-2023 Albumin BCG dye [Mass/Vol] 4.5 g/dL 3.5-5.7 [facility] Alkaline phosphatase [Enzyma tic activity/volume] in Serum or PlasmaOrdered By: Jacky Alarcon on 03-10-2023 ALP [Catalytic activity/Vol] 71 U/L 34-104 [facility] Aspartate aminotransferase [ Enzymatic activity/volume] in Serum or PlasmaOrdered By: Jacky Alarcon on 03-10-2023 AST [Catalytic activity/Vol] 17 U/L 13-39 [facility] Automated erythrocytes count in urine sediment (number/area)Ordered By: Jacky Alarcon on 03-10-2023 RBC Auto (Urine sed) [#/Area] 50-100 [HPF] 0-4 [facility] Automated leukocytes count i n urine sediment (number/area)Ordered By: Jacky Alarcon on 03-10-2023 WBC Auto (Urine sed) [#/Area] 5-9 [HPF] 0-4 [facility] Basophils Auto (Bld) [#/Vol] Ordered By: Jacky Alarcon on 12-01-2023 Basophils (Bld) [#/Vol] 0.1 10*3/uL 0.0-0.2 [facility] Basophils/100 WBC Auto (Bld) Ordered By: Jacky Alarcon on 03-10-2023 Basophils/100 WBC (Bld) 0.4 % . [facility] Bilirubin Test strip Ql (U)O rdered By: Jacky Alarocn on 03-10-2023 Bilirubin Ql (U) Negative Negative [facility] Bilirubin.direct [Mass/volum e] in Serum or PlasmaOrdered By: Jacky Alarcon on 03-10-2023 Bilirubin.direct [Mass/Vol] 0.40 mg/dL 0.03-0.18 [facility] Bilirubin.total [Mass/volume ] in Serum or PlasmaOrdered By: Jacky Alarcon on 03-10-2023 Bilirubin [Mass/Vol] 1.2 mg/dL 0.3-1.0 [facility] Calcium [Mass/volume] in Ser um or PlasmaOrdered By: Jacky Alarcon on 03-10-2023 Calcium [Mass/Vol] 9.3 mg/dL 8.6-10.3 [facility] Carbon dioxide, total [Moles /volume] in Serum or PlasmaOrdered By: Jacky Alarcon on 03-10-2023 CO2 [Moles/Vol] 18.8 mmol/L 21.0-31.0 [facility] Chloride [Moles/volume] in S rahul or PlasmaOrdered By: Jacky Alarcon on 03-10-2023 Chloride [Moles/Vol] 101 mmol/L 98-107 [facility] Choriogonadotropin.beta subu nit [Units/volume] in Serum or PlasmaOrdered By: Jacky Alarcon on 03-10-2023 [place] [address].00 m[IU]/mL [facility] Comment on above: Approximate Approxim ate hCG Gestational Age Range (mIU/ml) (weeks)0.2-1 5-50 1-2 50-500 2-3 100-5,000 3-4 500-10,000 4-5 1,000-50,000 5-6 10,000-100,000 6-8 15,000-200,000 8-12 10,000-100,000 Color Auto (U)Ordered By: Corinna Alarcon on 03-10-2023 Color (U) Dark yellow Yellow [facility] Creatinine [Mass/volume] in Serum or PlasmaOrdered By: Jacky Alarcon on 03-10-2023 Creatinine [Mass/Vol] 0.64 mg/dL 0.60-1.20 [facility] Eosinophils Auto (Bld) [#/Vo l]Ordered By: Jacky Alarcon on 03-10-2023 Eosinophils (Bld) [#/Vol] 0.1 10*3/uL 0.0-0.45 [facility] Eosinophils/100 WBC Auto (Bl d)Ordered By: Jacky Alarcon on 03-10-2023 Eosinophils/100 WBC (Bld) 0.5 % . [facility] Erythrocyte distribution wid th Auto (RBC) [Ratio]Ordered By: Jacky Alarcon on 03-10-2023 Erythrocyte distribution width (RBC) [Ratio] 13.3 % 11.9-15.3 [facility] Globulin Calc (S) [Mass/Vol] Ordered By: Jacky Alarcon on 03-10-2023 Globulin (S) [Mass/Vol] 3.5 g/dL [facility] Glucose [Mass/volume] in Ser um or PlasmaOrdered By: Jacky Alarcon on 03-10-2023 Glucose [Mass/Vol] 83 mg/dL 70-100 [facility] Comment on above: ADA recommended refe rence rangeRandom Glucose Reference Range is dependent on time and content of last meal. Glucose of more than 200 mg/dL in a nonstressed, ambulatory subject supports the diagnosis of Diabetes Mellitus. HCG ( test) IAoracioi d Ql (U)Ordered By: Jacky Alarcon on 03-10-2023 HCG ( test) Ql (U) Positive [facility] Hematocrit Auto (Bld) [Volum e fraction]Ordered By: Jacky Alarcon on 03-10-2023 Hematocrit (Bld) [Volume fraction] 47.2 % 34.0-46.4 [facility] Hemoglobin [Mass/volume] in BloodOrdered By: Jacky Alarcon on 03-10-2023 Hemoglobin (Bld) [Mass/Vol] 16.5 g/dL 11.8-15.4 [facility] Ketones Auto test strip (U) [Mass/Vol]Ordered By: Jacky Alarcon on 03-10-2023 Ketones (U) [Mass/Vol] 4+ Negative [facility] - UrinalysisOrder ed By: Jacky Alarcon on 03-10-2023 Hyaline casts LM Ql (Urine sed) 9-19 [LPF] 0-8 [facility] Leukocytes [#/volume] correc anabell for nucleated erythrocytes in Blood by Automated counOrdered By: Jacky Alarcon on 03-10-2023 WBC corrected for nucl RBC Auto (Bld) [#/Vol] 16.0 10*3/uL 3.8-11.6 [facility] [facility] Lipase [Enzymatic activity/v olume] in Serum or PlasmaOrdered By: Jacky Alarcon on 03-10-2023 Lipase [Catalytic activity/Vol] 35.0 U/L 11.0-82.0 [facility] Lymphocytes Auto (Bld) [#/Vo l]Ordered By: Jacky Alarcon on 03-10-2023 Lymphocytes (Bld) [#/Vol] 1.9 10*3/uL 1.00-4.8 [facility] Lymphocytes/100 WBC Auto (Bl d)Ordered By: Jacky Alarcon on 03-10-2023 Lymphocytes/100 WBC (Bld) 11.6 % . [facility] MCH Auto (RBC) [Entitic mass ]Ordered By: Jacky Alarcon on 03-10-2023 MCH (RBC) [Entitic mass] 30.8 pg 24.7-34.3 [facility] MCHC Auto (RBC) [Mass/Vol]Or dered By: Jacky Alarcon on 03-10-2023 MCHC (RBC) [Mass/Vol] 35.0 g/dL 32.0-35.0 [facility] MCV Auto (RBC) [Entitic vol] Ordered By: Jacky Alarcon on 03-10-2023 MCV (RBC) [Entitic vol] 87.8 fL 80-100 [facility] Monocyte distribution width [Entitic volume] in Blood by AutomatedOrdered By: Jacky Alarcon on 03-10-2023 Monocyte distribution width Auto (Bld) [Entitic vol] 16.05 % 0.00-20.00 [facility] Monocytes Auto (Bld) [#/Vol] Ordered By: Jacky Alarcon on 03-10-2023 Monocytes (Bld) [#/Vol] 1.4 10*3/uL 0.0-0.8 [facility] Monocytes/100 WBC Auto (Bld) Ordered By: Jacky Alarcon on 03-10-2023 Monocytes/100 WBC (Bld) 8.8 % . [facility] Neutrophils Auto (Bld) [#/Vo l]Ordered By: Jacky Alarcon on 03-10-2023 Neutrophils (Bld) [#/Vol] 12.6 10*3/uL 1.8-7.7 [facility] Neutrophils/100 WBC Auto (Bl d)Ordered By: Jacky Alarcon on 03-10-2023 Neutrophils/100 WBC (Bld) 78.7 % . [facility] Nitrite Test strip Ql (U)Ord ered By: Jacky Alarcon on 03-10-2023 Nitrite Ql (U) Negative Negative [facility] No Panel InformationOrdered By: Jacky Alarcon on 03-10-2023 Estimated GFR (CKD-EPI) > 60.0 mL/Min [facility] Creatinine Clearance (Chem 148.58 [facility] Nucleated erythrocytes [Pres ence] in Blood by Automated countOrdered By: Jacky Alarcon on 03-10-2023 Nucleated RBC Auto Ql (Bld) 0.1 /100{WBC} 0-0.5 [facility] Platelet mean volume Auto (B ld) [Entitic vol]Ordered By: Jacky Alarcon on 03-10-2023 Platelet mean volume (Bld) [Entitic vol] 9.7 fL 6.3-10.7 [facility] Platelets Auto (Bld) [#/Vol] Ordered By: Jacky Alarcon on 03-10-2023 Platelets (Bld) [#/Vol] 263 10*3/uL 150-450 [facility] Potassium [Moles/volume] in Serum or PlasmaOrdered By: Jacky Alarcon on 03-10-2023 Potassium [Moles/Vol] 3.3 mmol/L 3.5-5.1 [facility] Protein Auto test strip (U) [Mass/Vol]Ordered By: Jacky Alarcon on 03-10-2023 Protein (U) [Mass/Vol] 100 mg/dL Negative [facility] Protein [Mass/volume] in Ser um or PlasmaOrdered By: Jacky Alarcon on 03-10-2023 Protein [Mass/Vol] 8.0 g/dL 6.4-8.9 [facility] RBC Auto (Bld) [#/Vol]Ordere d By: Jacky Alarcon on 03-10-2023 RBC (Bld) [#/Vol] 5.37 10*6/uL 3.60-5.00 [facility] Serum or plasma albumin/glob ulin mass ratioOrdered By: Jacky Alarcon on 03-10-2023 Albumin/Globulin [Mass ratio] 1.3 {ratio} [facility] Serum or plasma anion gap de terminationOrdered By: Jacky Alarcon on 03-10-2023 Anion gap [Moles/Vol] 16.5 mmol/L 6.0-15.0 [facility] Serum or plasma non-glucuron idated bilirubin measurement (mass/volume)Ordered By: Jacky Alarcon on 03-10-2023 Bilirubin.indirect [Mass/Vol] 0.8 mg/dL [facility] Sodium [Moles/volume] in Ser um or PlasmaOrdered By: Jacky Alarcon on 03-10-2023 Sodium [Moles/Vol] 133 mmol/L 136-145 [facility] Specific gravity Auto test s trip (U) [Rel density]Ordered By: Jacky Alarcon on 03-10-2023 Specific gravity (U) [Rel density] 1.029 1.001-1.03 0 [facility] Squamous epithelial cells de tection in urine sediment by light microscopyOrdered By: Jacky Alarcon on 03-10-2023 Epithelial cells.squamous LM Ql (Urine sed) 1-2 [HPF] 0-2 [facility] Urea nitrogen [Mass/volume] in Serum or PlasmaOrdered By: Jacky Alarcon on 03-10-2023 Urea nitrogen [Mass/Vol] 6 mg/dL 7-25 [facility] Urine bacteria detection by automated methodOrdered By: Jacky Alarcon on 03-10-2023 Bacteria Auto Ql (U) Rare None Seen [facility] Urine clarity by refractomet ry automatedOrdered By: Jacky Alarcon on 03-10-2023 Clarity Refractometry automated (U) Turbid Clear [facility] Urine glucose measurement by automated test strip (mass/volume)Ordered By: Jacky Alarcon on 03-10-2023 Glucose Auto test strip (U) [Mass/Vol] Normal mg/dL Normal [facility] Urine hemoglobin detection b y automated test stripOrdered By: Jacyk Alarcon on 03-10-2023 Hemoglobin Auto test strip Ql (U) 3+ Negative [facility] Urine leukocyte esterase det ection by automated test stripOrdered By: Jacky Alarcon on 03-10-2023 Leukocyte esterase Auto test strip Ql (U) 1+ Negative [facility] Urine sediment crystal ident ification by light microscopyOrdered By: Jacky Alarcon on 03-10-2023 Crystals LM Nom (Urine sed) See comment [facility] Comment on above: sulfa crystals Urobilinogen Auto test strip (U) [Mass/Vol]Ordered By: Jacky Alarcon on 03-10-2023 Urobilinogen (U) [Mass/Vol] Normal mg/dL Normal [facility] WBC Auto (Bld) [#/Vol]Ordere d By: Jacky Alarcon on 03-10-2023 WBC (Bld) [#/Vol] 16.0 10*3/uL 3.8-11.6 [facility] pH Auto test strip (U)Ordere d By: Jacky Alarcon on 03-10-2023 pH (U) 6.5 [pH] 5.0-9.0 [facility] CBC AUTO DIFFon 07-30-2022 BASO # 0.1 103/ul Normal 0.0-0.1 [facility] Comment on above: Performed By: #### G TT3P #### [facility] [address] [place] [address] Dr. Jackelyn Celestin Basophils/100 WBC (Bld) 0.6 % Normal 0.2-2.0 [facility] Comment on above: Performed By: #### G TT3P #### [facility] [address] [place] [address] Dr. Jackelyn Celestin EO # 0.2 103/ul Normal 0.0-0.7 [facility] Comment on above: Performed By: #### G TT3P #### [facility] [address] [place] [address] Dr. Jackelyn Celestin Eosinophils/100 WBC (Bld) 1.5 % Normal 0.9-7.0 [facility] Comment on above: Performed By: #### G TT3P #### [facility] [address] [place] [address] Dr. Jackelyn Celestin Erythrocyte distribution width (RBC) [Ratio] 14.5 % Normal 11.0-15.0 [facility] Comment on above: Performed By: #### G TT3P #### [facility] [address] [place] [address] Dr. Jackelyn Celestin Hematocrit (Bld) [Volume fraction] 33.9 % Critically low 36.0-48.0 [facility] Comment on above: Performed By: #### G TT3P #### [facility] [address] [place] [address] Dr. Jackelyn Celestin Hemoglobin (Bld) [Mass/Vol] 11.0 g/dL Critically low 12.0-16.0 [facility] Comment on above: Performed By: #### G TT3P #### [facility] [address] [place] [address] Dr. Jackelyn Celestin IG # 0.13 10e3/ul Critically high 0.00-0.03 [facility] Comment on above: Performed By: #### G TT3P #### [facility] [address] [place] [address] Dr. Jackelyn Celestin IG % 1.1 % Critically high 0.0-0.5 [facility] Comment on above: Performed By: #### G TT3P #### [facility] [address] [place] [address] Dr. Jackelyn Celestin LYMPH # 2.2 103/ul Normal 1.2-3.8 [facility] Comment on above: Performed By: #### G TT3P #### [facility] [address] [place] [address] Dr. Jackelyn Celestin Lymphocytes/100 WBC (Bld) 17.9 % Critically low 20.5-60.0 [facility] Comment on above: Performed By: #### G TT3P #### [facility] [address] [place] [address] Dr. Jackelyn Celestin MANUAL DIFF REQ NO Normal [facility] Comment on above: Performed By: #### G TT3P #### [facility] [address] [place] [address] Dr. Jackelyn Celestin MCH (RBC) [Entitic mass] 28.6 pg Normal 26.7-34.0 [facility] Comment on above: Performed By: #### G TT3P #### [facility] [address] [place] [address] Dr. Jackelyn Celestin MCHC (RBC) [Mass/Vol] 32.4 g/dL Normal 29.9-35.2 [facility] Comment on above: Performed By: #### G TT3P #### [facility] [address] [place] [address] Dr. Jackelyn Celestin MCV (RBC) [Entitic vol] 88.1 fL Normal 81.0-99.0 [facility] Comment on above: Performed By: #### G TT3P #### [facility] [address] [place] [address] Dr. Jackelyn Celestin MONO # 0.8 103/ul Normal 0.3-0.8 [facility] Comment on above: Performed By: #### G TT3P #### [facility] [address] [place] [address] Dr. Jackelyn Celestin Monocytes/100 WBC (Bld) 6.9 % Normal 1.7-12.0 [facility] Comment on above: Performed By: #### G TT3P #### [facility] [address] [place] [address] Dr. Jackelyn Celestin NEUT # 8.7 103/ul Critically high 1.4-6.5 [facility] Comment on above: Performed By: #### G TT3P #### [facility] [address] [place] [address] Dr. Jackelyn Celestin Neutrophils/100 WBC (Bld) 72.0 % Normal 43.0-75.0 [facility] Comment on above: Performed By: #### G TT3P #### [facility] [address] [place] [address] Dr. Jackelyn Celestin Platelet mean volume (Bld) [Entitic vol] 11.5 fL Normal 9.5-13.5 [facility] Comment on above: Performed By: #### G TT3P #### [facility] [address] [place] [address] Dr. Jackelyn Celestin PLT 146 103/ul Critically low 150-450 [facility] Comment on above: Performed By: #### G TT3P #### [facility] [address] [place] [address] Dr. Jackelyn Celestin RBC 3.85 106/ul Critically low 4.20-5.40 [facility] Comment on above: Performed By: #### G TT3P #### [facility] [address] [place] [address] Dr. Jackelyn Celestin WBC 12.1 103/ul Critically high 4.0-11.0 [facility] Comment on above: Performed By: #### G TT3P #### [facility] [address] [place] [address] Dr. Jackelyn Celestin CBC AUTO DIFFon 07-29-2022 BASO # 0.0 103/ul Normal 0.0-0.1 [facility] Comment on above: Performed By: #### [id number] #### [facility] [address] [place] [address] Dr. Jackelyn Celestin Basophils/100 WBC (Bld) 0.4 % Normal 0.2-2.0 [facility] Comment on above: Performed By: #### [id number] #### [facility] [address] [place] [address] Dr. Jackelyn Celestin EO # 0.2 103/ul Normal 0.0-0.7 [facility] Comment on above: Performed By: #### [id number] #### [facility] [address] [place] [address] Dr. Jackelyn Celestin Eosinophils/100 WBC (Bld) 1.4 % Normal 0.9-7.0 [facility] Comment on above: Performed By: #### 4 [id number] #### [facility] [address] [place] [address] Dr. Jackelyn Celestin Erythrocyte distribution width (RBC) [Ratio] 14.1 % Normal 11.0-15.0 [facility] Comment on above: Performed By: #### [id number] #### [facility] [address] [place] [address] Dr. Jackelyn Celestin Hematocrit (Bld) [Volume fraction] 36.0 % Normal 36.0-48.0 [facility] Comment on above: Performed By: #### [id number] #### [facility] [address] [place] [address] Dr. Jackelyn Celestin Hemoglobin (Bld) [Mass/Vol] 12.2 g/dL Normal 12.0-16.0 [facility] Comment on above: Performed By: #### [id number] #### [facility] [address] [place] [address] Dr. Jackelyn Celestin IG # 0.10 10e3/ul Critically high 0.00-0.03 [facility] Comment on above: Performed By: #### 4 [id number] #### [facility] [address] [place] [address] Dr. Jackelyn Celestin IG % 0.9 % Critically high 0.0-0.5 [facility] Comment on above: Performed By: #### 4 [id number] #### [facility] [address] [place] [address] Dr. Jackelyn Celestin LYMPH # 1.9 103/ul Normal 1.2-3.8 [facility] Comment on above: Performed By: #### 4 [id number] #### [facility] [address] [place] [address] Dr. Jackelyn Celestin Lymphocytes/100 WBC (Bld) 17.7 % Critically low 20.5-60.0 [facility] Comment on above: Performed By: #### 4 [id number] #### [facility] [address] [place] [address] Dr. Jackelyn Celestin MANUAL DIFF REQ NO Normal [facility] Comment on above: Performed By: #### [id number] #### [facility] [address] [place] [address] Dr. Jackelyn Celestin MCH (RBC) [Entitic mass] 28.8 pg Normal 26.7-34.0 [facility] Comment on above: Performed By: #### 4 [id number] #### [facility] [address] [place] [address] Dr. Jackelyn Celestin MCHC (RBC) [Mass/Vol] 33.9 g/dL Normal 29.9-35.2 [facility] Comment on above: Performed By: #### 4 [id number] #### [facility] [address] [place] [address] Dr. Jackelyn Celestin MCV (RBC) [Entitic vol] 84.9 fL Normal 81.0-99.0 [facility] Comment on above: Performed By: #### [id number] #### [facility] [address] [place] [address] Dr. Jackelyn Celestin MONO # 0.9 103/ul Critically high 0.3-0.8 [facility] Comment on above: Performed By: #### 4 [id number] #### [facility] [address] [place] [address] Dr. Jackelyn Celestin Monocytes/100 WBC (Bld) 8.4 % Normal 1.7-12.0 [facility] Comment on above: Performed By: #### 4 [id number] #### [facility] [address] [place] [address] Dr. Jackelyn Celestin NEUT # 7.7 103/ul Critically high 1.4-6.5 [facility] Comment on above: Performed By: #### 4 [id number] #### [facility] [address] [place] [address] Dr. Jackelyn Celestin Neutrophils/100 WBC (Bld) 71.2 % Normal 43.0-75.0 [facility] Comment on above: Performed By: #### 4 [id number] #### [facility] [address] [place] [address] Dr. Jackelyn Celestin Platelet mean volume (Bld) [Entitic vol] 10.9 fL Normal 9.5-13.5 [facility] Comment on above: Performed By: #### 4 [id number] #### [facility] [address] [place] [address] Dr. Jackelyn Celestin PLT 170 103/ul Normal 150-450 [facility] Comment on above: Performed By: #### 4 [id number] #### [facility] [address] [address] [address] Jackelyn Celsetin RBC 4.24 106/ul Normal 4.20-5.40 [facility] Comment on above: Performed By: #### 4 [id number] #### [facility] [address] [place] [address] Dr. Jackelyn Celestin WBC 10.8 103/ul Normal 4.0-11.0 [facility] Comment on above: Performed By: #### 4 [id number] #### [facility] [address] [place] [address] Dr. Jackelyn Celestin DRUG SCREEN RAPID (URINE)on 07-29-2022 AMP Negative Normal NEGATIVE [facility] Comment on above: Performed By: #### 4 [id number] #### [facility] [address] [place] [address] Dr. Jackelyn Celestin BAR Negative Normal NEGATIVE [facility] Comment on above: Performed By: #### 4 [id number] #### [facility] [address] [place] [address] Dr. Jackelyn Celestin BUP Negative Normal NEGATIVE [facility] Comment on above: Performed By: #### 4 [id number] #### [facility] [address] [place] [address] Dr. Jackelyn Celestin BZO Negative Normal NEGATIVE [facility] Comment on above: Performed By: #### 4 [id number] #### [facility] [address] [place] [address] Dr. Jackelyn Celestin HOMERO Negative Normal NEGATIVE [facility] Comment on above: Performed By: #### 4 [id number] #### [facility] [address] [place] [address] Dr. Jackelyn Celestin CUT-OFFS SEE BELOW Normal [facility] Comment on above: Result Comment: AMP (Amphetamine): 500ng/mL, BAR (Barbituates): 200 ng/mL, BZO (Benzodiazepines): 150 ng/mL, BUP (Buprenorphine): 10 ng/mL, HOMERO (Cocaine): 150 ng/mL, mAMP (Methamphetamine): 500 ng/mL, MTD (Methadone): 200 ng/mL, OPI (Opiates): 100 ng/mL, OXY (Oxycodone): 100 ng/mL, PCP (Phencyclidine): 25 ng/mL, PPX (Propoxyphene): 300 ng/mL, THC (Cannabinoids): 50 ng/mL, TCA (Trycyclic Antidepressants): 300 ng/mL Performed By: #### 4 [id number] #### [facility] [address] [place] [address] Dr. Jackelyn Celestin DRUG CUT HEADER DRUG CLASS TEST SYST EM CUT-OFF CONCENTRATIONS ARE FOLLOWS: Normal [facility] Comment on above: Performed By: #### [id number] #### [facility] [address] [place] [address] Dr. Jackelyn Celestin mAMP Negative Normal NEGATIVE [facility] Comment on above: Performed By: #### 4 [id number] #### [facility] [address] [place] [address] Dr. Jackelyn Celestin MTD Negative Normal NEGATIVE [facility] Comment on above: Performed By: #### 4 [id number] #### [facility] [address] [place] [address] Dr. Jackelyn Celestin OPI Negative Normal NEGATIVE [facility] Comment on above: Performed By: #### 4 [id number] #### [facility] [address] [place] [address] Dr. Jackelyn Celestin OXY Negative Normal NEGATIVE [facility] Comment on above: Performed By: #### 4 [id number] #### [facility] [address] [place] [address] Dr. Jackelyn Celestin PCP Negative Normal NEGATIVE [facility] Comment on above: Performed By: #### [id number] #### [facility] [address] [place] [address] Dr. Jackelyn Celestin PPX Negative Normal NEGATIVE [facility] Comment on above: Performed By: #### 4 [id number] #### [facility] [address] [place] [address] Dr. Jackelyn Celestin TCA Negative Normal NEGATIVE [facility] Comment on above: Performed By: #### 4 [id number] #### [facility] [address] [place] [address] Dr. Jackelyn Celestin THC Negative Normal NEGATIVE [facility] Comment on above: Performed By: #### 4 [id number] #### [facility] [address] [place] [address] Dr. Jackelyn Celestin TYPE AND SCREENon 07-29-2022 TYPE AND SCREEN Negative Normal [facility] Comment on above: Performed By: #### G TT3P #### [facility] [address] [place] [address] Dr. Jackelyn Celestin US PREG GROWTHon 07-25-2022 [...] greater than 97th percentile. Electronically authenticated by: PAM HART Date: 2022-07-24 22:37 Normal [facility] GROUP B STREP CULTUREon 03-2 S. agalactiae Ag Ql (Unsp spec) Culture Observations: NEGATIVE FOR GROUP B STREPTOCOCCUS. Normal [facility] Comment on above: Performed By: #### G TT3P #### [facility] [address] [address] [address] Jackelyn Celestin PREG GROWTHon 06-06-2022 US [...] with growth detailed above. Electronically authenticated by: PAM HART Date: 2022-06-06 15:39 Normal [facility] GTT 3 HR PREGon 05-21-2022 Glucose [Mass/Vol] 91 mg/dL Normal 74-106 [facility] Comment on above: Performed By: #### G TT3P #### [facility] [address] [address] [address] Jackelyn Celestin Glucose [Mass/Vol] 168 mg/dL Normal [facility] Comment on above: Performed By: #### G TT3P #### [facility] [address] [address] [address] Jackelyn Celestin Glucose [Mass/Vol] 121 mg/dL Normal [facility] Comment on above: Performed By: #### G TT3P #### [facility] [address] [address] [address] Jackelyn Celestin Glucose [Mass/Vol] 86 mg/dL Normal [facility] Comment on above: Performed By: #### G TT3P #### [facility] [address] [address] [address] Jackelyn Celestin PAP ACOG PANEL 2: 21 to 29on 05-17-2022 . . Normal [facility] Comment on above: Performed By: #### [id number] #### [facility] [address] [place] [address] Dr. Jackelyn Celestin DIAGNOSIS: Comment [facility] Comment on above: Result Comment: NEGA TIVE FOR INTRAEPITHELIAL LESION OR MALIGNANCY. Performed By: #### [id number] #### [facility] [address] [place] [address] Dr. Jackelyn Celestin Methodology: Comment [facility] Comment on above: Result Comment: This liquid based ThinPrep(R) pap test was screened with the use of an image guided system. Performed By: #### [id number] #### [facility] [address] [place] [address] Dr. Jackelyn Celestin Note: Comment [facility] [...] do occur. . Performed By: #### [id number] #### [facility] [address] [place] [address] Dr. Jackelyn Celestin Performed by: Comment [facility] Comment on above: Result Comment: Alphonso Walker, [employer] (ASCP) Performed By: #### 4 [id number] #### [facility] [address] [place] [address] Dr. Jackelyn Celestin Reflex Criteria: Comment [facility] Comment on above: Result Comment: The HPV DNA reflex criteria were not met with this specimen result therefore, no HPV testing was performed. . Performed By: #### 4 [id number] #### [facility] [address] [place] [address] Dr. Jackelyn Celestin Specimen adequacy: Comment [facility] Comment on above: Result Comment: Sati sfactory for evaluation. No endocervical component is identified. Performed By: #### 4 [id number] #### [facility] [facility] [address] [place] [address] Dr. Jackelyn Celestin Age Gdln ACOG Testing 21-29 Normal [facility] Comment on above: Performed By: #### 4 [id number] #### [facility] [address] [place] [address] Dr. Jackelyn Celestin CHLAMYDIA/GONOCOCCUS ALONDRA ( AB/URINE/PAPon 05-14-2022 Chlamydia trachomatis, ALONDRA Negative Normal Negative [facility] Comment on above: Performed By: #### G TT3P #### [facility] [address] [place] [address] Dr. Jackelyn Celestin Neisseria gonorrhoeae, ALONDRA Negative Normal Negative [facility] Comment on above: Performed By: #### G TT3P #### [facility] [address] [place] [address] Dr. Jackelyn Celestin VAGINITIS/VAGINOSIS DNA PROB Dean 05-13-2022 Thao species Negative Normal Negative [facility] Comment on above: Performed By: #### 4 [id number] #### [facility] [address] [place] [address] Dr. Jackelyn Celestin Gardnerella vaginalis Negative Normal Negative [facility] Comment on above: Performed By: #### 4 [id number] #### [facility] [address] [place] [address] Dr. Jackelyn Celestin Trichomonas vaginalis Negative Normal Negative [facility] Comment on above: Performed By: #### 4 [id number] #### [facility] [address] [place] [address] Dr. Jackelyn Celestin CBC AUTO DIFFon 05-09-2022 BASO # 0.0 103/ul Normal 0.0-0.1 [facility] Comment on above: Performed By: #### C BC #### [facility] [address] [place] [address] Dr. Jackelyn Celestin Basophils/100 WBC (Bld) 0.3 % Normal 0.2-2.0 [facility] Comment on above: Performed By: #### C BC #### [facility] [address] [place] [address] Dr. Jackelyn Celestin EO # 0.1 103/ul Normal 0.0-0.7 [facility] Comment on above: Performed By: #### C BC #### [facility] [address] [place] [address] Dr. Jackelyn Celestin Eosinophils/100 WBC (Bld) 1.2 % Normal 0.9-7.0 [facility] Comment on above: Performed By: #### C BC #### [facility] [address] [place] [address] Dr. Jackelyn Celestin Erythrocyte distribution width (RBC) [Ratio] 11.9 % Normal 11.0-15.0 [facility] Comment on above: Performed By: #### C BC #### [facility] [address] [place] [address] Dr. Jackelyn Celestin Hematocrit (Bld) [Volume fraction] 33.7 % Critically low 36.0-48.0 [facility] Comment on above: Performed By: #### C BC #### [facility] [address] [place] [address] Dr. Jackelyn Celestin Hemoglobin (Bld) [Mass/Vol] 12.0 g/dL Normal 12.0-16.0 [facility] Comment on above: Performed By: #### C BC #### [facility] [address] [place] [address] Dr. Jackelyn Celestin IG # 0.07 10e3/ul Critically high 0.00-0.03 [facility] Comment on above: Performed By: #### C BC #### [facility] [address] [place] [address] Dr. Jackelyn Celestin IG % 0.6 % Critically high 0.0-0.5 [facility] Comment on above: Performed By: #### C BC #### [facility] [address] [place] [address] Dr. Jackelyn Celestin LYMPH # 1.3 103/ul Normal 1.2-3.8 [facility] Comment on above: Performed By: #### C BC #### [facility] [address] [place] [address] Dr. Jackelyn Celestin Lymphocytes/100 WBC (Bld) 11.5 % Critically low 20.5-60.0 [facility] Comment on above: Performed By: #### C BC #### [facility] [address] [place] [address] Dr. Jackelyn Celestin MANUAL DIFF REQ NO Normal [facility] Comment on above: Performed By: #### C BC #### [facility] [address] [place] [address] Dr. Jackelyn Celestin MCH (RBC) [Entitic mass] 31.0 pg Normal 26.7-34.0 [facility] Comment on above: Performed By: #### C BC #### [facility] [address] [place] [address] Dr. Jackelyn Celestin MCHC (RBC) [Mass/Vol] 35.6 g/dL Critically high 29.9-35.2 [facility] Comment on above: Performed By: #### C BC #### [facility] [address] [place] [address] Dr. Jackelyn Celestin MCV (RBC) [Entitic vol] 87.1 fL Normal 81.0-99.0 [facility] Comment on above: Performed By: #### C BC #### [facility] [address] [place] [address] Dr. Jackelyn Celestin MONO # 0.5 103/ul Normal 0.3-0.8 [facility] Comment on above: Performed By: #### C BC #### [facility] [address] [place] [address] Dr. Jackelyn Celestin Monocytes/100 WBC (Bld) 4.8 % Normal 1.7-12.0 [facility] Comment on above: Performed By: #### C BC #### [facility] [address] [place] [address] Dr. Jackelyn Celestin NEUT # 8.9 103/ul Critically high 1.4-6.5 [facility] Comment on above: Performed By: #### C BC #### [facility] [address] [place] [address] Dr. Jackelyn Celestin Neutrophils/100 WBC (Bld) 81.6 % Critically high 43.0-75.0 [facility] Comment on above: Performed By: #### C BC #### [facility] [address] [place] [address] Dr. Jackelyn Celestin Platelet mean volume (Bld) [Entitic vol] 11.3 fL Normal 9.5-13.5 [facility] Comment on above: Performed By: #### C BC #### [facility] [address] [place] [address] Dr. Jackelyn Celestin PLT 171 103/ul Normal 150-450 [facility] Comment on above: Performed By: #### C BC #### [facility] [address] [place] [address] Dr. Jackelyn Celestin RBC 3.87 106/ul Critically low 4.20-5.40 [facility] Comment on above: Performed By: #### C BC #### [facility] [address] [place] [address] Dr. Jackelyn Celestin WBC 10.9 103/ul Normal 4.0-11.0 [facility] Comment on above: Performed By: #### C BC #### [facility] [address] [place] [address] Dr. Jackelyn Celestin GLUCOSE - 1HRon 05-09-2022 Glucose [Mass/Vol] 142 mg/dL Critically high 74-106 [facility] Comment on above: Performed By: #### 4 [id number] #### [facility] [address] [place] [address] Dr. Jackelyn Celestin US PREG BIOPHY W [...] biophysical profile score 8.0. Electronically authenticated by: PAM HART Date: 2022-05-09 10:35 Normal [facility] US PREG PLACENTAon 3 US PREG PLACENTA EXAMINATION: US PREG PLACENTA HISTORY: Falls ; mild cramping after falling COMPARISON: Ultrasound anatomy 03/17/2022 FINDINGS: PLACENTA: Posterior without previa, subchorionic hematoma, or abruption. CERVIX LENGTH: Not evaluated. HEART RATE: 158 bpm OTHER: None. IMPRESSION: 1. Unremarkable posterior placenta. No suspicious findings. Electronically authenticated by: PAM HART Date: 2022-05-09 10:29 Normal [facility] US PREG ANATOMY SINGLEon US [...] with growth detailed above. Electronically authenticated by: PAM HART Date: 2022-03-17 16:29 Normal [facility] HEP B SURFACE ANTIGEN SCREEN on 02-15-2022 HBsAg Screen Negative Normal Negative [facility] Comment on above: Performed By: #### 4 [id number] #### [facility] [address] [place] [address] Dr. Jackelyn Celestin HEPATITIS C VIRUS AB W/ REFL EX QUANTon 02-15-2022 HCV AB <0.1 Normal 0.0-0.9 [facility] Comment on above: Performed By: #### H CVPCRR #### [facility] [address] [place] [address] Dr. Jackelyn Celestin Interpretation: Comment Normal [facility] Comment on above: Result Comment: Nega tive Not infected with HCV, unless recent infection is suspected or other evidence exists to indicate HCV infection. Performed By: #### H CVPCRR #### [facility] [address] [place] [address] Dr. Jackelyn Celestin HIV 1 AND 2 WITH REFLEXon HIV Screen 4th Generation wRfx Non-Reactive Normal Non Reactive [facility] Comment on above: Result Comment: HIV Negative HIV-1/HIV-2 antibodies and HIV-1 p24 antigen were NOT detected. There is no laboratory evidence of HIV infection. Performed By: #### H IV12 #### [facility] [address] [place] [address] Dr. Jackelyn Celestin RPR QUANTon 02-15-2022 Rapid Plasma Reagin, Quant Non-Reactive Normal NonRea<1:1 [facility] Comment on above: Result Comment: Plea se Note: This test does not meet current guidelines for screening and diagnosis of syphilis. This test is intended for following treatment response in patients being treated for syphilis infection. To screen for syphilis infection, a reflex cascade that includes both RPR and a treponema-specific assay should be utilized, such as Treponema pallidum (Syphilis) Screening Temperance (543991) or Rapid Plasma Reagin (RPR) Test With Reflex to Quantitative RPR and Confirmatory Treponema pallidum Antibodies (794387). Performed By: #### R PRQ #### [facility] [address] [place] [address] Dr. Jackelyn Celestin RUBELLA AB IGGon 02-15-2022 Rubella Antibodies, IgG 1.97 index Normal Immune >0.99 [facility] Comment on above: Result Comment: Non- immune <0.90 Equivocal 0.90 - 0.99 Immune >0.99 Performed By: #### R UBIGG #### [facility] [address] [place] [address] Dr. Jackelyn Celestin CBC AUTO DIFFon 02-12-2022 BASO # 0.0 103/ul Normal 0.0-0.1 [facility] Comment on above: Performed By: #### C BC #### [facility] [address] [place] [address] Dr. Jackelyn Celestin Basophils/100 WBC (Bld) 0.4 % Normal 0.2-2.0 [facility] Comment on above: Performed By: #### C BC #### [facility] [address] [place] [address] Dr. Jackelyn Celestin EO # 0.2 103/ul Normal 0.0-0.7 [facility] Comment on above: Performed By: #### C BC #### [facility] [address] [place] [address] Dr. Jackelyn Celestin Eosinophils/100 WBC (Bld) 2.0 % Normal 0.9-7.0 [facility] Comment on above: Performed By: #### C BC #### [facility] [address] [place] [address] Dr. Jackelyn Celestin Erythrocyte distribution width (RBC) [Ratio] 12.8 % Normal 11.0-15.0 [facility] Comment on above: Performed By: #### C BC #### [facility] [address] [place] [address] Dr. Jackelyn Celestin Hematocrit (Bld) [Volume fraction] 40.7 % Normal 36.0-48.0 [facility] Comment on above: Performed By: #### C BC #### [facility] [address] [place] [address] Dr. Jackelyn Celestin Hemoglobin (Bld) [Mass/Vol] 14.4 g/dL Normal 12.0-16.0 [facility] Comment on above: Performed By: #### C BC #### [facility] [address] [place] [address] Dr. Jackelyn Celestin IG # 0.05 10e3/ul Critically high 0.00-0.03 [facility] Comment on above: Performed By: #### C BC #### [facility] [address] [place] [address] Dr. Jackelyn Celestin IG % 0.4 % Normal 0.0-0.5 [facility] Comment on above: Performed By: #### C BC #### [facility] [address] [place] [address] Dr. Jackelyn Celestin LYMPH # 1.7 103/ul Normal 1.2-3.8 [facility] Comment on above: Performed By: #### C BC #### [facility] [address] [place] [address] Dr. Jackelyn Celestin Lymphocytes/100 WBC (Bld) 15.1 % Critically low 20.5-60.0 [facility] Comment on above: Performed By: #### C BC #### [facility] [address] [place] [address] Dr. Jakcelyn Celestin MANUAL DIFF REQ NO Normal [facility] Comment on above: Performed By: #### C BC #### [facility] [address] [place] [address] Dr. Jackelyn Celestin MCH (RBC) [Entitic mass] 31.2 pg Normal 26.7-34.0 [facility] Comment on above: Performed By: #### C BC #### [facility] [address] [place] [address] Dr. Jackelyn Celestin MCHC (RBC) [Mass/Vol] 35.4 g/dL Critically high 29.9-35.2 [facility] Comment on above: Performed By: #### C BC #### [facility] [address] [place] [address] Dr. Jackelyn Celestin MCV (RBC) [Entitic vol] 88.1 fL Normal 81.0-99.0 [facility] Comment on above: Performed By: #### C BC #### [facility] [address] [place] [address] Dr. Jackelyn Celestin MONO # 0.4 103/ul Normal 0.3-0.8 [facility] Comment on above: Performed By: #### C BC #### [facility] [address] [place] [address] Dr. Jackelyn Celestin Monocytes/100 WBC (Bld) 3.3 % Normal 1.7-12.0 [facility] Comment on above: Performed By: #### C BC #### [facility] [address] [place] [address] Dr. Jackelyn Celestin NEUT # 8.8 103/ul Critically high 1.4-6.5 [facility] Comment on above: Performed By: #### C BC #### [facility] [address] [place] [address] Dr. Jackelyn Celestin Neutrophils/100 WBC (Bld) 78.8 % Critically high 43.0-75.0 [facility] Comment on above: Performed By: #### C BC #### [facility] [address] [place] [address] Dr. Jackelyn Celestin Platelet mean volume (Bld) [Entitic vol] 11.6 fL Normal 9.5-13.5 [facility] Comment on above: Performed By: #### C BC #### [facility] [address] [place] [address] Dr. Jackelyn Celestin PLT 203 103/ul Normal 150-450 [facility] Comment on above: Performed By: #### C BC #### [facility] [address] [place] [address] Dr. Jackelyn Celestin RBC 4.62 106/ul Normal 4.20-5.40 [facility] Comment on above: Performed By: #### C BC #### [facility] [address] [place] [address] Dr. Jackelyn Celestin WBC 11.2 103/ul Critically high 4.0-11.0 [facility] Comment on above: Performed By: #### C BC #### [facility] [address] [place] [address] Dr. Jackelyn Celestin CULTURE URINEon 02-12-2022 CULTURE URINE Culture Observations : NO GROWTH. Normal [facility] Comment on above: Performed By: #### U RCX #### [facility] [address] [place] [address] Dr. Jackelyn Celestin GLYCOHEMOGLOBIN A1Con 2021 ADA RECOMMENDATION SEE BELOW Normal [facility] Comment on above: Result Comment: ADA RECOMMENDED LIMIT 4.0 - 6.0 ADA THERAPEUTIC TARGET < 7.0 ACTION SUGGESTED > 7.0 Performed By: #### 4 [id number] #### [facility] [address] [place] [address] Dr. Jackelyn Celestin Glucose [Mass/Vol] 94 mg/dL Normal [facility] Comment on above: Performed By: #### 4 [id number] #### [facility] [address] [place] [address] Dr. Jackelyn Celestin HbA1c (Bld) [Mass fraction] 4.9 % Normal 4.5-6.2 [facility] Comment on above: Performed By: #### 4 [id number] #### [facility] [address] [place] [address] Dr. Jackelyn Celestin TYPE AND SCREENon 02-12-2022 TYPE AND SCREEN Negative Normal [facility] Comment on above: Performed By: #### T NS #### [facility] [address] [place] [address] Dr. Jackelyn Celestin US PREG TVon 01-21-2022 [...] DONALD AGUILAR Date: 2022-01-21 16:41 Normal [facility] Coding Summary.on 12-12-2019 Coding Summary. CODING [...] CphT Date Saved: 12/12/2019 10:59 am Normal [facility] Family Medicine Office/Clini c Noteon 11-21-2019 Family Medicine Office/Clinic Note Chief Complaint EST ear pain HPI Staff Pt presents today for Lt ear pain. Onset last night. Pt was tested for covid-19 11/16/2019 but test was negative. She has taken Tylenol with little relief. History of Present Illness Chief complaint: EDISON ASHLEY is a 19 Years Female who [...] 20 tab(s), Refills(s) 0, Pharmacy: [facility], 159, cm, 11/21/19 19:13:00 EDT, Height/Length Dosing, 96, kg, 11/21/19 19:13:00 EDT, Weight Dosing Follow-up No qualifying data available Patient Education Body Mass Index, BMI DASH Diet MyPlate from [employer] Obesity Otitis Media, Adult Problem List/Past Medical [...] cancer: Grandparent. Hypertension: Grandparent. Stroke: Grandparent. Normal [facility] Comment on above: Result Comment: Elec [...] Document Reviewed: 01/04/2006 ExitCare? Patient Information ?2014 [email or web address]. DASH Diet The DASH diet stands for [...] beef, chicken breast, turkey breast. All fish. [place], bake, or broil your meat. Nothing should [...] Document Reviewed: 03/15/2012 ExitCare? Patient Information ?2013 [employer]. [place], [place] The amount you need to eat from each food group depends on your age, sex, and level of physical activity. To find the amounts that are right for you, go to ChooseMyc-LEcta.gov. Tips: ? Enjoy your food, but eat [...] Document Reviewed: 06/16/2008 ExitCare? Patient Information ?2013 [employer] [facility]. [facility] Medicine Obesity Obesity is defined as having [...] Document Reviewed: 05/02/2012 ExitCare? Patient Information ?2014 [email or web address]. Otitis Media, Adult A middle ear infection [...] the first few days. ? Only take [id number] or prescription medicines for pain, discomfort, or [...] Document Reviewed: 10/31/2008 ExitCare? Patient Information ?2013 [employer] [facility]. Normal [facility] SARS-CoV-2, NAAon 11-20-2019 SARS CORONAVIRUS 2 RNA:PRTHR:PT:RESPIRATO RY:ORD:PROBE.AMP.TAR Not Detected Not Detected [facility] Comment on above: Result Comment: This test was developed and its performance characteristics determined by [employer]. This test has not been FDA cleared [...] detected) result in this assay. Performed at: [facility] [id number] [place] [id number] MD Malaika Velez Performed By: #### S ARS-CoV-2, ALONDRA #### [facility] [address] [place] [address] [facility] Medicine Video Visit - Telehealthon 11-16-2019 Family [...] interactive video communications from my office using [employer] due to the restrictions of the COVID-19 pandemic. No physical exam was conducted other than those areas of the body visible to telecommunications with the patient located at [address] [phone], with no one else in attendance. If [...] cancer: Grandparent. Hypertension: Grandparent. Stroke: Grandparent. Normal [facility] Comment on above: Result Comment: Elec tronically Signed By: SEAN KIM, Abbey Hodges\.br\Date and Time Signed: 11/16/19 14:27 EDT URINE CULTUREon 07-10-2017 Urine culture, bacteria SPECIMEN DESCRIPTION URINE CLEAN CATCHUA DIPSTICK NITRITE NEGATIVE * Result Note: LEUKOCYTE NEGATIVE *CULTURE ESCHERICHIA COLI * Result Note: 50,000 C/C/ML * * Result Note: Testing performed at [place], [place] [address] *REPORT STATUS 07/10/2017 * Result Note: FINAL * O RGANISM ESCHERICHIA COLI * Result Note: ESCHERICHIA COLI *METHOD MICAMPICILLIN <=2 SUSCEPTIBLEAMPICILLIN/SULBA CTAM <=2 SUSCEPTIBLECEFTRIAXONE <=1 SUSCEPTIBLECEFAZOLIN <=4 SUSCEPTIBLEIMIPENEM <=0.25 SUSCEPTIBLEGENTAMICIN <=1 SUSCEPTIBLETRIMETH-SULFA <=20 SUSCEPTIBLEAMOXICILLIN/CLAV ULANIC A <=2 SUSCEPTIBLENITROFURANTOIN 32 SUSCEPTIBLEPIPERACILLIN/SADA OBACTAM <=4 SUSCEPTIBLELEVOFLOXACIN <=0.12 SUSCEPTIBLEESBL NEGATIVECEFTAZIDIME <=1 SUSCEPTIBLE Normal [facility] Comment on above: Performed By: #### A URNC ####Testing performed at [address] [address]Tneuhrj performed at [address] [place] [address] BHCG,QUANTITATIVEon 07-08-19 18 BHCG,QUANTITATIVE 133.56 MIU/ML Normal [facility] Comment on above: Result Comment: [facility]: NON FEMALE 0-6 MIU/MLMALE ADULT [...] #### A CBC, CG2 ####Testing performed at [address] [address] CBCon 07-07-2017 ABSOLUTE BAS 0.1 X10 Normal [facility] Comment on above: Performed By: #### A CBC, CG2 ####Testing performed at [address] [address] ABSOLUTE EOS 0.20 X10 Normal [facility] Comment on above: Performed By: #### A CBC, BHCG2 ####Testing performed at [address] [address] Basophils/100 WBC Auto (Bld) 0.6 % Normal 0.0-2.0 [facility] Comment on above: Performed By: #### A CBC, BHCG2 ####Testing performed at [address] [place] [address] DTYPE AUTO DIFF Normal [facility] Comment on above: Performed By: #### A CBC, BHCG2 ####Testing performed at [address] [place] [address] Eosinophils/100 leukocytes 2.0 % Normal 0.0-11.0 [facility] Comment on above: Performed By: #### A CBC, BHCG2 ####Testing performed at [address] [place] [address] Lymphocytes 2.00 X10 Normal [facility] Comment on above: Performed By: #### A CBC, BHCG2 ####Testing performed at [address] [place] [address] Lymphocytes/100 leukocytes 23.0 % Normal 20.0-55.0 [facility] Comment on above: Performed By: #### A CBC, BHCG2 ####Testing performed at [address] [place] [address] Monocytes 0.6 X10 Normal [facility] Comment on above: Performed By: #### A CBC, BHCG2 ####Testing performed at [address] [place] [address] Monocytes/100 leukocytes 7.1 % Normal 0.0-10.0 [facility] Comment on above: Performed By: #### A CBC, BHCG2 ####Testing performed at [address] [place] [address] Neutrophils 5.9 x10 Normal 1.0-7.0 [facility] Comment on above: Performed By: #### A CBC, BHCG2 ####Testing performed at [address] [address] Neutrophils/100 leukocytes 67.3 % Normal 37.0-75.0 [facility] Comment on above: Performed By: #### A CBC, BHCG2 ####Testing performed at [address] [place] [address] Erythrocyte distribution width Auto Ratio (RBC) 12.1 % Normal 11.5-14.5 [facility] Comment on above: Performed By: #### A CBC BHCG2 ####Testing performed at [address] [address] Erythrocytes (RBC) 4.72 /cmm Normal 4.0-5.4 [facility] Comment on above: Performed By: #### A CBC BHCG2 ####Testing performed at [address] [address] Hematocrit (HCT) 43.2 % Normal 36.0-48.0 [facility] Comment on above: Performed By: #### A CBC BHCG2 ####Testing performed at [address] [address] Hemoglobin mass conc (Bld) 15.1 g/dL Normal 12.0-16.0 [facility] Comment on above: Performed By: #### A CBC BHCG2 ####Testing performed at [address] [address] MCH 32.0 pg Normal 26.0-35.0 [facility] Comment on above: Performed By: #### A CBC BHCG2 ####Testing performed at [address] [address] MCHC mass conc (RBC) 35.0 g/dL Normal 27.0-37.0 [facility] Comment on above: Performed By: #### A CBC BHCG2 ####Testing performed at [address] [address] MCV 91.5 fL Normal 80.0-100.0 [facility] Comment on above: Performed By: #### A CBC BHCG2 ####Testing performed at [address] [address] Platelet mean volume (PMV) 9.2 fL Normal 7.4-11.0 [facility] Comment on above: Performed By: #### A CBC BHCG2 ####Testing performed at [address] [address] Platelets 235 /cmm Normal 130.0-400. 0 [facility] Comment on above: Performed By: #### A CBC BHCG2 ####Testing performed at [address] [address] WBC (Leukocytes) 8.8 /cmm Normal 3.6-11.0 [facility] Comment on above: Performed By: #### A CBC, CG2 ####Testing performed at [address] [address] ED NOTEon 07-07-2017 [facility] NOTES Normal [facility] ED PROVIDERon 07-07-2017 [facility] NOTES Normal [facility] URINE MACROSCOPICon 07-08-19 18 Bilirubin Ql (U) Negative Normal NEGATIVE [facility] Comment on above: Performed By: #### U MAC, UMIC ####Testing performed at [address] [address] URINE HEMOGLOBIN LARGE Abnormal NEGATIVE [facility] Comment on above: Performed By: #### U MAC, UMIC ####Testing performed at [address] [address] URINE KETONE Negative Normal NEGATIVE [facility] Comment on above: Performed By: #### U MAC, UMIC ####Testing performed at [address] [place] [address] URINE LEUKOTEST Negative Normal NEGATIVE [facility] Comment on above: Performed By: #### U MAC, UMIC ####Testing performed at [address] [address] URINE NITRATES Negative Normal NEGATIVE [facility] Comment on above: Performed By: #### U MAC, UMIC ####Testing performed at [address] [address] URINE SPEC GRAVITY 1.025 Normal 1.010-1.0 2 5 [facility] Comment on above: Performed By: #### U MAC, UMIC ####Testing performed at [address] [address] URINE TOTAL PROTEIN Negative Normal NEGATIVE [facility] Comment on above: Performed By: #### U MAC, UMIC ####Testing performed at [address] [address] Urine, clarity CLEAR Normal CLEAR [facility] Comment on above: Performed By: #### U MAC, UMIC ####Testing performed at [address] [place] [address] Urine, color YELLOW Normal YELLOW [facility] Comment on above: Performed By: #### U MAC, UMIC ####Testing performed at [address] [place] [address] Urine, glucose presence Negative Normal NEGATIVE [facility] Comment on above: Performed By: #### U MAC, UMIC ####Testing performed at [address] [address] Urine, pH 7.0 [pH] Normal 5.0-7.0 [facility] Comment on above: Performed By: #### U MAC, UMIC ####Testing performed at [address] [address] Urine, urobilinogen 1.0 mg/dl Normal 0.2-1.0 [facility] Comment on above: Performed By: #### U MAC, UMIC ####Testing performed at [address] [address] URINE MICROSCOPICon 07-08-19 18 CRYSTAL OCCASIONAL Abnormal NONE [facility] Comment on above: Result Comment: CHRIS PHOUS PHOSPHATES Performed By: #### U MAC, UMIC ####Testing performed at [address] [address] URINE COMMENT REFLEX CULTURE PER ESTABLISHED CRITERIA. Normal [facility] Comment on above: Performed By: #### U MAC, UMIC ####Testing performed at [address] [address] URINE WBC'S 1 TO 5 Normal NEGATIVE [facility] Comment on above: Performed By: #### U MAC, UMIC ####Testing performed at [address] [address] Urine, bacteria in sediment 1+ Abnormal NEGATIVE [facility] Comment on above: Performed By: #### U MAC, UMIC ####Testing performed at [address] [address] Urine, casts in sediment NONE Normal NONE [facility] Comment on above: Performed By: #### U MAC, UMIC ####Testing performed at [address] [address] Urine, epithelial cells in sediment 1 TO 5 Normal [facility] Comment on above: Performed By: #### U MAC, UMIC ####Testing performed at [address] [place] [address] Urine, erythrocytes 1 TO 5 Normal NEGATIVE [facility] Comment on above: Performed By: #### U MAC, UMIC ####Testing performed at [address] [place] [address] Urine, mucus presence in sediment Negative Normal NEGATIVE [facility] Comment on above: Performed By: #### U MAC, UMIC ####Testing performed at [address] [place] [address] BhCG Quanton 07-05-2017 HCG.beta subunit Qn 238.0 mIU/m Normal [facility] Comment on above: Result Comment: FEMA LE (NON-) & MALE <3 BORDERLINE 3 - 5 SUGGEST REPEAT TESTING FEMALE () 1 D - 1 WK 5 - 50 1 - 2 WK 50 - 500 2 - 3 WK 100 - 5000 3 - 4 WK 500 - 10397 4 - 5 WK 1000 - 46716 5 - 6 WK [address] - 873952 6 - 8 WK [address] - 118510 2 - 3 [place] [address] - 488332 Performed By: #### 2 [id number] ####JIMMIE DanMovApyw1634 [place] [address] Auto Diffon 07-04-2017 Basophils Auto #/vol (Bld) 0.1 E3/mcL Normal 0.0-0.2 [facility] Comment on above: Order Comment: Order Added by Discern Expert. Performed By: #### 2 149745 ####JIMMIE DanLhqIozz9502 [place] [address] Basophils/100 WBC Auto (Bld) 0.6 % Normal 0.0-2.0 [facility] Comment on above: Order Comment: Order Added by Discern Expert. Performed By: #### 2 [id number] ####JIMMIE DanGvmBuoa6325 [place] [address] Eos Absolute 0.3 E3/mcL Normal 0.0-0.7 [facility] Comment on above: Order Comment: Order Added by Discern Expert. Performed By: #### 2 790039 ####JIMMIE Ozunao1025 [place] [address] Eosinophils/100 leukocytes 2.5 % Normal 0.0-11.0 [facility] Comment on above: Order Comment: Order Added by Discern Expert. Performed By: #### 2 116960 ####JIMMIE [address] [place] [address] Lymphocytes 2.3 E3/mcL Normal 1.2-3.4 [facility] Comment on above: Order Comment: Order Added by Discern Expert. Performed By: #### 2 094066 ####JIMMIE Oz[address]ao[address] [place] [address] Lymphocytes/100 leukocytes 22.2 % Normal 20.0-55.0 [facility] Comment on above: Order Comment: Order Added by Discern Expert. Performed By: #### 2 423170 ####JIMMIE [address]ao[address]25 [place] [address] Cayey Absolute 0.8 E3/mcL High 0.0-0.7 [facility] Comment on above: Order Comment: Order Added by Discern Expert. Performed By: #### 2 647128 ####JIMMIE [address] [place] [address] Monocytes/100 leukocytes 7.6 % Normal 0.0-10.0 [facility] Comment on above: Order Comment: Order Added by Discern Expert. Performed By: #### 2 442636 ####JIMMIE [address] [place] [address] Neutro Absolute 6.9 E3/mcL High 1.4-6.5 [facility] Comment on above: Order Comment: Order Added by Discern Expert. Performed By: #### 2 869273 ####JIMMIE [address] [place] [address] Neutro Auto 67.1 % Normal 37.0-75.0 [facility] Comment on above: Order Comment: Order Added by Discern Expert. Performed By: #### 2 735393 ####JIMMIE [address] [place] [address] BMPon 07-04-2017 BUN/Creatinine Ratio 21.7 ratio Normal 5.4-30.0 [facility] Comment on above: Performed By: #### 2 487944 ####JIMMIE ClcXziq8067 [place] [address] Creatinine 0.6 mg/dL Normal 0.6-1.3 [facility] Comment on above: Performed By: #### 2 695140 ####JIMMIE KzhVsny0967 [place] [address] Urea nitrogen 13 mg/dL Normal 7-18 [facility] Comment on above: Performed By: #### 2 022251 ####JIMMIE AuuCbzg5906 [place] [address] Calcium 8.4 mg/dL Normal 8.4-10.2 [facility] Comment on above: Performed By: #### 2 922144 ####JIMMIE VwbYbok8457 [place] [address] Chloride 100 mmol/L Normal 98-107 [facility] Comment on above: Performed By: #### 2 433366 ####JIMMIE OapEdfk3410 [place] [address] CO2 27.7 mmol/L Normal 24.0-30.0 [facility] Comment on above: Performed By: #### 2 409637 ####JIMMIE JpeEtmq5681 [place] [address] Glucose mass conc 98 mg/dL Normal 70-99 [facility] Comment on above: Performed By: #### 2 116901 ####JIMMIE ZxjKsqz7720 [place] [address] Potassium molar conc 3.4 mmol/L Low 3.5-5.1 [facility] Comment on above: Performed By: #### 2 776565 ####JIMMIE LvhStvh0234 [place] [address] Sodium 133 mmol/L Low 136-145 [facility] Comment on above: Performed By: #### 2 880219 ####JIMMIE RnmJgzx0093 [place] [address] BhCG Quanton 07-04-2017 HCG.beta subunit Qn 190.8 mIU/m Normal [facility] Comment on above: Result Comment: FEMA LE (NON-) & MALE <3 BORDERLINE 3 - 5 SUGGEST REPEAT TESTING FEMALE () 1 D - 1 WK 5 - 50 1 - 2 WK 50 - 500 2 - 3 WK 100 - 5000 3 - 4 WK 500 - 11624 4 - 5 WK 1000 - 26396 5 - 6 WK [address] - 315492 6 - 8 WK [address] - 549904 2 - 3 [place] [address] - 392908 Performed By: #### 2 795371 ####JIMMIEJonathan DanYbgGefm6007 [place] [address] CBC w/ Auto Diffon 8 Erythrocyte distribution width Auto Ratio (RBC) 11.6 % Normal 11.5-14.5 [facility] Comment on above: Performed By: #### 2 835648 ####JIMMIE DanBtcXzhf5805 [place] [address] Erythrocytes (RBC) 4.43 E6/mcL Normal 3.90-5.40 [facility] Comment on above: Performed By: #### 2 480279 ####JIMMIE DanXocIkrc2327 [place] [address] Hematocrit (HCT) 40.1 % Normal 36.0-48.0 [facility] Comment on above: Performed By: #### 2 711561 ####JIMMIE DanBvxCwlk3844 [place] [address] Hemoglobin mass conc (Bld) 14.1 g/dL Normal 12.0-16.0 [facility] Comment on above: Performed By: #### 2 699667 ####JIMMIE DanNpjMvyl4272 [place] [address] MCH 31.7 pg High 27.0-31.0 [facility] Comment on above: Performed By: #### 2 550997 ####JIMMIE ScnPpca5246 [place] [address] MCHC mass conc (RBC) 35.1 g/dL Normal 33.0-37.0 [facility] Comment on above: Performed By: #### 2 268734 ####JIMMIE IxeWuxh2719 [place] [address] MCV 90.4 fL Normal 78.0-100.0 [facility] Comment on above: Performed By: #### 2 613213 ####JIMMIE Ozunao1025 [place] [address] Platelet mean volume (PMV) 8.4 fL Normal 7.4-11.0 [facility] Comment on above: Performed By: #### 2 549563 ####JIMMIE [address]ao[address]25 [place] [address] Platelets 232 E3/mcL Normal 130-400 [facility] Comment on above: Performed By: #### 2 543315 ####JIMMIE Ozunao1025 [place] [address] WBC (Leukocytes) 10.3 E3/mcL Normal 3.6-11.0 [facility] Comment on above: Performed By: #### 2 811970 ####JIMMIE Ozunao1025 [place] [address] Hep Func Panelon 07-04-2017 Alanine aminotransferase (ALT) 15 Int._Unit/L Normal 10-40 [facility] Comment on above: Performed By: #### 2 046200 ####JIMMIE NqiRyeu1721 [place] [address] Albumin 3.8 g/dL Normal 3.2-5.0 [facility] Comment on above: Performed By: #### 2 395577 ####JIMMIE BehZqvg8513 [place] [address] Albumin/Globulin Ratio 1.4 {ratio} Normal 1.1-1.9 [facility] Comment on above: Performed By: #### 2 527068 ####JIMMIEJonathan GreshamJzdIpkq3251 [place] [address] Alk Phos 36 Int._Unit/L Low 42-121 [facility] Comment on above: Performed By: #### 2 453449 ####JIMMIEJonathan GreshamWvlJzwn9270 [place] [address] Aspartate aminotransferase (AST) 18 Int._Unit/L Normal 10-42 [facility] Comment on above: Performed By: #### 2 871532 ####JIMMIEJonathan GreshamCspPfmx5603 [place] [address] Bili Direct <.10 Normal .00-.20 [facility] Comment on above: Performed By: #### 2 986620 ####JIMMIE Gresham[address]25 [place] [address] Bili Indirect >0.7 Normal [facility] Comment on above: Result Comment: No e stablished ranges available for the Indirect Biliruben. Performed By: #### 2 995626 ####JIMMIE Gresham1025 [place] [address] Bili Total 0.8 mg/dL Normal 0.2-1.0 [facility] Comment on above: Performed By: #### 2 181853 ####JIMMIE Gresham1025 [place] [address] Globulin 2.8 g/dL Normal 2.0-4.0 [facility] Comment on above: Performed By: #### 2 414964 ####JIMMIE Gresham[address]25 [place] [address] Protein 6.6 g/dL Normal 6.4-8.3 [facility] Comment on above: Performed By: #### 2 299331 ####JIMMIE Gresham[address]25 [place] [address] Lipase Levelon 07-04-2017 Lipase Lvl 19 U/L Normal 8-57 [facility] Comment on above: Performed By: #### 2 265894 ####JIMMIE Gresham[address] [place] [address] U BhCG Qlton 07-04-2017 HCG.beta subunit Qn Positive Normal Neg [facility] Comment on above: Performed By: #### 2 312114 ####JIMMIE Urinalysis Manual Cuiucyzmfc8359 [place] [address] UA Completeon 07-04-2017 UA Blood 3+ Normal Negative [facility] Comment on above: Performed By: #### 8 [id number] ####JIMMIE Urinalysis Automated Gsjnjinuqb9195 [place] [address] UA Bacteria Trace Abnormal None [facility] Comment on above: Performed By: #### 8 0449195 ####JIMMIE Urinalysis Automated Vgtjqggxtm5173 [place] [address] UA Clarity SltCloudy Abnormal Clear [facility] Comment on above: Performed By: #### 8 [id number] ####JIMMIE Urinalysis Automated Mkiudrpqlf6567 [place] [address] UA Leuk Est Trace Normal Negative [facility] Comment on above: Performed By: #### 8 [id number] ####JIMMIE Urinalysis Automated Xhdcjdpbtl9840 [place] [address] UA Mucous Occasional Abnormal Trace [facility] Comment on above: Performed By: #### 8 [id number] ####JIMMIE Urinalysis Automated [address] [place] [address] UA Nitrite Negative Normal Negative [facility] Comment on above: Performed By: #### 8 [id number] ####JIMMIE Urinalysis Automated [address] [place] [address] UA pH 5.0 Normal 4.6-8.0 [facility] Comment on above: Performed By: #### 8 [id number] ####JIMMIE Urinalysis Automated [address] [place] [address] UA Protein Negative Normal Negative [facility] Comment on above: Performed By: #### 8 [id number] ####JIMMIE Urinalysis Automated [address] [place], [place] [address] UA Spec Grav 1.027 Normal 1.003-1.03 0 [facility] Comment on above: Performed By: #### 8 [id number] ####JIMMIE Urinalysis Automated T[address]ios[address] [place] [address] UA Squam Epithelial 0-5 Normal 0-5 [facility] Comment on above: Performed By: #### 8 [id number] ####JIMMIE Urinalysis Automated [address] [place] [address] UA Urobilinogen Negative Normal [facility] Comment on above: Performed By: #### 8 5803450 ####JIMMIE Urinalysis Automated Ncxuolebsi9962 [place] [address] UA WBC 10-20 Abnormal 0-5 [facility] Comment on above: Performed By: #### 8 [id number] ####JIMMIE Urinalysis Automated W[address]zu[address]ac[address] [place], [place] [address] Urine, color Yellow Normal Yellow [facility] Comment on above: Performed By: #### 8 6265518 ####JIMMIE Urinalysis Automated Lphofgjvto9044 [place] [address] Urine, erythrocytes 5-10 Abnormal 0-3 [facility] Comment on above: Performed By: #### 8 [id number] ####JIMMIE Urinalysis Automated Fokyfpondp8735 [place] [address] Urine, glucose Negative Normal Negative [facility] Comment on above: Performed By: #### 8 [id number] ####JIMMIE Urinalysis Automated Hbepoiojot0105 [place] [address] Urine, ketones presence Negative Normal Negative [facility] Comment on above: Performed By: #### 8 2394584 ####JIMMIE Urinalysis Automated Bhrhvhzkzd6753 [place] [address] Urine, urobilinogen Negative Normal Negative [facility] Comment on above: Performed By: #### 8 [id number] ####JIMMIE Urinalysis Automated [address] [place] [id number] eGFRon 07-04-2017 eGFR (non-black) mL/min/{1.73_m2} Normal [facility] Comment on above: Order Comment: Order added by Discern Expert. Performed By: #### 1 [id number] ####JIMMIE XnpDhmh5306 [place] [id number] Vital Signs Date Time Vital Sign Value Performing Clinician Facility 11-19-2024 14:43-0400 Body mass index (BMI) [Ratio] 43.72 kg/m2 Fletcher Morteza DO Work Phone: [facility] 11-19-2024 14:43-0400 Body weight 111.95 kg Fletcher Morteza DO Work Phone: [facility] 11-19-2024 14:43-0400 Diastolic blood pressure 84 mm[Hg] Fletcher Morteza DO Work Phone: [facility] 11-19-2024 14:43-0400 Systolic blood pressure 128 mm[Hg] Fletcher Morteza DO Work Phone: [facility] 10-22-2024 13:20-0400 Body mass index (BMI) [Ratio] 43.65 kg/m2 Fletcher Morteza DO Work Phone: [facility] 10-22-2024 13:20-0400 Body weight 111.77 kg Fletcher Mendozao DO Work Phone: [facility] 10-22-2024 13:20-0400 Diastolic blood pressure 82 mm[Hg] Fletcher Mendozao DO Work Phone: [facility] 10-22-2024 13:20-0400 Systolic blood pressure 120 mm[Hg] Fletcher Mendozao DO Work Phone: [facility] 12-04-2023 18:07-0400 Body mass index (BMI) [Ratio] 37.2 kg/m2 Rainer Romero DO Work Phone: [facility] 12-04-2023 18:07-0400 Body temperature 98.71 [degF] Rainer Romero DO Work Phone: [facility] 12-04-2023 18:07-0400 Body weight 95.25 kg Rainer Romero DO Work Phone: [facility] 12-04-2023 18:07-0400 Diastolic blood pressure 88 mm[Hg] Rainer Romero DO Work Phone: [facility] 12-04-2023 18:07-0400 Heart rate 88 /min Rainer Romero DO Work Phone: [facility] 12-04-2023 18:07-0400 SaO2% (BldA) [Mass fraction] 98 % Rainer Romero DO Work Phone: [facility] 12-04-2023 18:07-0400 Systolic blood pressure 120 mm[Hg] Rainer Romero DO Work Phone: [facility] 04-20-2023 14:07-0500 Diastolic blood pressure 75 mm[Hg] [facility] 04-20-2023 14:07-0500 Heart rate 93 /min [facility] 04-20-2023 14:07-0500 Respiratory rate 18 /min [facility] [address] [facility] 04-20-2023 14:07-0500 SaO2% (BldA) [Mass fraction] 99 % [facility] 04-20-2023 14:07-0500 Systolic blood pressure 127 mm[Hg] [facility] 04-20-2023 14:06-0500 Body height 160 cm [facility] 04-20-2023 14:06-0500 Body mass index (BMI) [Ratio] 37.22 kg/m2 [facility] 04-20-2023 14:06-0500 Body temperature 97.7 [degF] [facility] [address] [place] [address] 04-20-2023 14:06-0500 Body weight 95.3 kg [facility] [address] [place] [address] 03-10-2023 23:05-0500 Diastolic blood pressure 80 mm[Hg] Supriya Aichholz Work Phone: [facility] 03-10-2023 23:05-0500 Heart rate 100 /min Supriya Aichholz Work Phone: [facility] 03-10-2023 23:05-0500 Respiratory rate 20 /min Supriya Aichholz Work Phone: [facility] 03-10-2023 23:05-0500 SaO2% (BldA) [Mass fraction] 98 % Supriya Aichholz Work Phone: [facility] 03-10-2023 23:05-0500 Systolic blood pressure 137 mm[Hg] Supriya Aichholz Work Phone: [facility] 03-10-2023 17:38-0500 Body temperature 97.9 [degF] Supriya Aichholz Work Phone: [facility] 03-10-2023 17:32-0500 Body height 160.02 cm Supriya Aichholz Work Phone: [facility] 03-10-2023 17:32-0500 Body weight 95 kg Supriya Aichholz Work Phone: [facility] Encounters Encounter Date Encounter Type Care Provider Facility Start: 11-19-2024 End: 11-19-2024 Departed Referred Fletcher Mendozao -[facility] Start: 11-19-2024 End: 11-19-2024 Patient encounter procedure Fletcher Morteza DO Work Phone: [facility] Comment on above: HGSIL (high grade sq uamous intraepithelial lesion) on Pap smear of cervix; Weight gain; Insulin resistance Start: 11-19-2024 End: 11-19[facility] Start: 11-06-2024 End: 11-06-2024 ambulatory FLETCHER MORTEZA Not Available Start: 10-22-2024 End: 10-22-2024 Bamboo flowsheet Fletcher Morteza DO Work Phone: [facility] Start: 10-22-2024 End: 10-22-2024 Bamboo flowsheet Fletcher Morteza DO Work Phone: [facility] Start: 10-22-2024 End: 10-22-2024 Clinisync Result Encounter Fletcher Morteza DO Work Phone: [facility] Department Unsolicited Start: 10-22-2024 End: 10-22-2024 ambulatory FLETCHER MORTEZA Not Available Start: 10-22-2024 End: 10-22-2024 Patient encounter procedure Fletcher Morteza DO Work Phone: [facility] Work Phone: Start: 10-22-2024 End: 10-22-2024 Periodic preventive med est patient 18-39 yrs Fletcher Morteza DO Work Phone: [facility] Comment on above: Well woman exam with routine gynecological exam; UTI symptoms; PCOS (polycystic ovarian syndrome); Menorrhagia with regular cycle Start: 12-04-2023 End: 12-04-2023 Office outpatient new 30 minutes Rainer Romero DO Work Phone: [facility] Comment on above: Allergic conjunctivi tis of both eyes (Primary Dx) Start: 12-04-2023 End: 12-04-2023 ambulatory RAINER GODOYRAE Not Available Start: 12-04-2023 End: 12-04-2023 Bamboo flowsheet Rainer Romero DO Work Phone: [facility] Start: 12-04-2023 End: 12-04-2023 Bamboo flowsheet Rainer Romero DO Work Phone: [facility] Start: 11-27-2023 End: 11-27-2023 ambulatory STEFAN STATON Not Available Start: 05-22-2023 End: 05-22-2023 ambulatory [facility] Start: 05-22-2023 End: 05-22-2023 Postop follow up visit related to original px Gerson Malik MD Work Phone: [facility] Comment on above: Status post laparosc opic cholecystectomy (Primary Dx) Start: 05-18-2023 Clinisync Result Encounter Cor ey Morteza DO Work Phone: [facility] Unsolicited Start: 05-18-2023 Clinisync Result Encounter Cor ey Morteza DO Work Phone: [facility] Unsolicited Start: 05-16-2023 Chart abstracting Fletcher Morteza DO Work Phone: [facility] Start: 05-04-2023 End: 05-04-2023 [facility] Start: 05-04-2023 End: 05-04-2023 Evaluation and management of inpatient [facility] Start: 04-20-2023 End: 04-20-2023 ambulatory [facility] Start: 04-20-2023 End: 04-20-2023 Patient encounter procedure [facility] [place] [facility] Start: 03-30-2023 End: 03-30-2023 ambulatory [facility] Start: 03-10-2023 End: 03-10-2023 Emergency department patient visit Supriya Cerrato Work Phone: [facility] Work Phone: Start: 07-29-2022 End: 07-30-2022 Evaluation and management of inpatient DR JEFFREY NUNEZ . Facility:[facility] Start: 07-21-2022 End: 07-22-[address] FLETCHER PRO . Facility:[facility] Start: 07-06-2022 End: 07-06-2022 ambulatory STEFAN STATON . Facility:[facility] Start: 06-06-2022 End: 06-07-[address] FLETCHER PRO . Facility:[facility] Start: 05-21-2022 End: 05-22-[address] FLETCHER PRO . Facility:[facility] Start: 05-11-2022 End: 05-11-2022 ambulatory STEFAN STATON . Facility:[facility] Start: 05-09-2022 End: 05-10-[address] FLETCHER PRO . Facility:[facility] Start: 03-17-2022 End: 03-18-2022 ambulatory STEFAN STATON . Facility:[facility] Start: 02-12-2022 End: 02-13-[address] FLETCHER PRO . Facility:[facility] Start: 02-11-[address] FLETCHER PRO . Facili ty:[facility] Start: 01-21-2022 End: 01-22-[address] FLETCHER PRO . Facility: Start: 07-07-2017 End: 07-07-2017 Emergency department patient visit [facility] Start: 07-05-2017 End: 07-06-2017 Ambulatory Dickson Ahmadi Facility:[facility] Start: 07-04-2017 End: 07-04-2017 Emergency department patient visit Dickson Ahmadi Facility:[facility] Procedures Date Procedure Procedure Detail Performing Clinician Start: 11-19-2024 COLPOSCOPY Fletcher Pro DO Work Phone: Start: 11-19-2024 Urine test visual color cmprsn meths Fletcher Morteza DO Work Phone: Start: 10-22-2024 ALL CBC WITH AUTO DIFF Fletcher Morteza DO Work Phone: Start: 10-22-2024 Urnls dip stick/tablet rgnt non-auto w/o micrscp Fletcher Morteza DO Work Phone: Start: 05-18-2023 ALL CBC WITH AUTO DIFF Fletcher Morteza DO Work Phone: Start: 07-29-2022 Delivery [...] Td Vaccines (5 - Td or Tdap) [facility] Start: 12-16-2024 End: 12-16-2024 Patient encounter procedure 12/16/2024 2:20 PM EDT Consult [facility] [address] [place] [address] Fletcher Pro, DO [address] [place] [address] [facility] Start: 11-19-2024 End: 11-19-2024 Patient encounter procedure 11/19/2024 9:10 AM EDT Office Visit [facility] [address] [place] [phone] Fletcher Pro, DO [address] [place] [address] [facility] Start: 11-06-2024 End: 11-06-2024 Professional / ancillary services management 11/06/2024 9:00 AM EDT Ancillary Procedure [facility] [address] [place] [phone] [facility] Start: 10-22-2024 End: 10-22-2025 DHEA DHEA Lab Routine PCOS (polycystic ovarian syndrome) Menorrhagia with regular cycle Expected: 10/22/2024 (Approximate), Expires: 10/22/2025 [facility] Comment on above: Expected: 10/22/2024 (Approximate), Expires: 10/22/2025 Start: 10-22-2024 End: 10-22-2025 US Pelvis US Pelvis w/ TV Imaging Routine PCOS (polycystic ovarian syndrome) Menorrhagia with regular cycle Expected: 10/22/2024, Expires: 10/22/2025 [facility] Comment on above: Expected: 10/22/2024 , Expires: 10/22/2025 Start: 06-13-2024 End: 06-13-2024 Patient encounter procedure 06/13/2024 9:00 AM EST Office Visit [facility] [address] [place] [phone] Fletcher Pro, DO [address] [place] [address] [facility] Start: 05-04-2024 Adult BMI Screening Adult BMI Screen ing [facility] Start: 05-04-2024 Tobacco Screening Tobacco Screening [facility] Start: 04-20-2024 Adult BMI Screening Adult BMI Screen ing [facility] Start: 04-20-2024 Tobacco Screening Tobacco Screening [facility] Start: 06-05-2023 End: 06-05-2023 Patient encounter procedure 06/05/2023 9:50 AM EST Routine [facility] [address] [place] [phone] Fletcher Pro, DO [address] [place] [address] [facility] Start: 05-04-2023 End: 05-04-2023 Admission to same day surgery center 05/04/2023 7:30 AM EST - 05/04/2023 9:30 AM EST Surgery [facility] [address] [place] [address] [place] [phone] Gerson Malik MD [address] [place] [address] DAVINCI CHOLECYSTECTOMY [facility] Comment on above: DAVINCI CHOLECYSTECT ANDREA Start: 05-04-2023 End: 05-04-2023 DAVINCI CHOLECYSTECTOMY DAVINCI CHOLECYSTECTOMY CHOLELITHIASIS 05/04/2023 7:30 AM [facility] Start: 05-04-2023 End: 05-04-2023 DAVINCI CHOLECYSTECTOMY CHOLANGIOGRAM DAVINCI CHOLECYSTECTOMY CHOLANGIOGRAM CHOLELITHIASIS 05/04/2023 7:30 AM EST [facility] Start: 05-04-2023 Subsequent hospital visit by physician 05/04/2023 7:30 AM EST Hospital Encounter [facility] [address] [place] [address] [place] [phone] Gerson Malik MD [address] [place] [address] [facility] Start: 03-10-2023 US Gallbladder [facility] Start: 03-10-2023 US scan of gallbladder US gall bladd er [facility] Start: 03-10-2023 Bacteria identified in Urine by Culture [facility] Start: 12-09-2022 Influenza vaccination Influenza Vacc ine [facility] Start: 2019 Screening for malign ant neoplasm of cervix Pap Smear [facility] Start: 2016 Adult BMI Follow Up Plan Adult BMI F ollow Up Plan [facility] Start: 2010 Depression Screening Depression Scre ening [facility] CBC W Auto Different ial panel - Blood CBC and differential Lab Routine PCOS (polycystic ovarian syndrome) Menorrhagia with regular cycle Ordered: 10/22/2024 [facility] Comment on above: Ordered: 10/22/2024 Cytology Cervical or vaginal smear or scraping study Pap Smear Pathology and Cytology Routine Well woman exam with routine gynecological exam Ordered: 10/22/2024 [facility] Work Phone: Comment on above: Ordered: 10/22/2024 DHEA-sulfate DHEA-sulfate Lab Routine PCOS (polycystic ovarian syndrome) Menorrhagia with regular cycle Ordered: 10/22/2024 [facility] Comment on above: Ordered: 10/22/2024 Follicle stimulating hormone Follicle stimulating hormone Lab Routine PCOS (polycystic ovarian syndrome) Menorrhagia with regular cycle Ordered: 10/22/2024 [facility] Comment on above: Ordered: 10/22/2024 hCG, quantitative, hCG, quantitative, Lab Routine PCOS (polycystic ovarian syndrome) Menorrhagia with regular cycle Ordered: 10/22/2024 [facility] Comment on above: Ordered: 10/22/2024 Hemoglobin A1c/Hemoglobin.total in Blood Hemoglobin A1c Lab Routine Menorrhagia with regular cycle Ordered: 10/22/2024 [facility] Comment on above: Ordered: 10/22/2024 Luteinizing hormone Luteinizing hormone Lab Routine PCOS (polycystic ovarian syndrome) Menorrhagia with regular cycle Ordered: 10/22/2024 [facility] Comment on above: Ordered: 10/22/2024 Patient Education - Th e Second Month Nausea and Vomiting, Adult ED Gallstones ED [facility] Work Phone: Patient referral [facility] Work Phone: Thyrotropin [Units/volume] in Serum or Plasma TSH Lab Routine PCOS (polycystic ovarian syndrome) Menorrhagia with regular cycle Ordered: 10/22/2024 [facility] Comment on above: Ordered: 10/22/2024 Thyroxine (T4) free [Mass/volume] in Serum or Plasma T4, free Lab Routine PCOS (polycystic ovarian syndrome) Menorrhagia with regular cycle Ordered: 10/22/2024 [facility] Comment on above: Ordered: 10/22/2024 Payers Date Payer Category Payer Medicaid (Managed Care) [employer] [id number] 2022 Private Health Insurance [id number] 2022 Private Health Insurance [id number] 2022 Unknown [id number] 2017 Unknown 1998 Unknown [id number] 2.16.840.1.891125.3.579.2. 593 1998 Unknown [id number] 2.16.840.1.089512.3.579.2. 593 1998 Unknown [id number] 2.16.840.1.593039.3.579.2. 593 1998 Unknown [id number] 2.16.840.1.303997.3.579.2. 593 1998 Unknown [id number] 2.16.840.1.833391.3.579.2. 593 1998 Unknown [id number] 2.16.840.1.697472.3.579.2. 593 1998 Unknown [id number] 2.16.840.1.099960.3.579.2. 593 1998 Unknown [id number] 2.16.840.1.900880.3.579.2. 593 1998 Unknown [id number] 2.16.840.1.333828.3.579.2. 593 1998 Unknown [id number] 2.16.840.1.089022.3.579.2. 593 1998 Unknown [id number] 2.16.840.1.464970.3.579.2. 593 1998 Unknown [id number] 2.16.840.1.858215.3.579.2. 593 1998 Unknown [id number] 2.16.840.1.090920.3.579.2. 593 1998 Unknown [id number] 2.16.840.1.961697.3.579.2. 1286 1998 Unknown [id number] 2.16.840.1.934668.3.579.2. 1286 1998 Unknown [id number] 2.16.840.1.280709.3.579.2. 1286 1998 Unknown [id number] 2.16.840.1.477313.3.579.2. 1286 1998 Unknown [id number] 2.16.840.1.413639.3.579.2. 1286 1998 Unknown [id number] 2.16.840.1.108722.3.579.2. 1286 1998 Unknown [id number] 2.16.840.1.007958.3.579.2. 1259 1998 Unknown [id number] 2.16.840.1.628428.3.579.2. 1259 1998 Unknown [id number] 2.16.840.1.764240.3.579.2. 1259 1998 Unknown [id number] 2.16.840.1.201903.3.579.2. 1259 1998 Unknown [id number] 2.16.840.1.337425.3.579.2. 1259 1959 Private Health Insurance [id number] 1959 Self-pay 1959 Unknown [id number] 1959 Unknown [id number] Unknown Regular Insurance [id number] Unknown [id number] 2.16.840.1.367736.3.579.2. 531 Social History Date Type Detail Facility Start: 03-10-2023 End: 05-16-2023 Tobacco smoking status NHIS Never smoked tobacco (finding) [facility] Start: 2000 Sex Assigned At Female F [facility] Start: 03-30-2023 End: 05-16-2023 Tobacco use and exposure Smokeless tobacco non-user [facility] Start: 05-16-2023 End: 10-22-2024 Alcohol intake Lifetime non-drinker (finding) [facility] Start: 05-16-2023 End: 12-04-2023 History of Social function [facility] Start: 05-16-2023 End: 12-04-2023 Tobacco use panel [facility] Start: 02-10-2023 [facility] Start: 2000 Sex Assigned At Not on file P [facility] Start: 04-20-2023 End: 05-04-2023 Alcohol intake Ex-drinker (finding) [facility] Housing Instability Unknown [facility] Sex Female (finding) [facility] Clinical Notes 04-20-2023 to 11-19-2024 Nataliia Sandhu LPN - 11/19/2024 2:30 PM Soraida Sandhu LPN - 10/22/2024 1:00 PM Kvng Romero DO - 12/04/2023 6:00 PM Kana Malik MD - 05/22/2023 3:15 PM ESTPatient Instructions Note Date & Type Note Facility 11-19-2024 History of Presen t illness Narrative Associated Order(s): Colposcopy Post-Procedure Diagnose(s): HGSIL (high grade squamous intraepithelial lesion) on Pap smear of cervix Reason for Appointment: Patient ID: Edison Ashley is a 24 y.o. female who presents for Colposcopy Patient presents today for a Colposcopy appointment. MEDICATIONS No current outpatient medications ALLERGIES No Known Allergies PROBLEMS Active Ambulatory Problems Diagnosis Date Noted HGSIL (high grade squamous intraepithelial lesion) on Pap smear of cervix 11/19/2024 Resolved Ambulatory Problems Diagnosis Date Noted No Resolved Ambulatory Problems Past Medical History: Diagnosis Date Bacterial vaginosis GERD (gastroesophageal reflux disease) UTI (urinary tract infection) HISTORY PAST MEDICAL HISTORY SOCIAL HISTORY Past Medical History: Diagnosis Date Bacterial vaginosis GERD (gastroesophageal reflux disease) UTI (urinary tract infection) Social History Tobacco Use Smoking status: Never Smokeless tobacco: Never Substance Use Topics Alcohol use: Never Drug use: Never FAMILY HISTORY Family History Problem Relation Name Age of Onset Breast cancer Maternal Grandmother Diabetes Maternal Grandmother Hypertension Maternal Grandmother COPD Maternal Grandmother Stroke Maternal Grandmother Diabetes Maternal Grandfather COPD Maternal Grandfather Cancer Paternal Grandmother SURGICAL HISTORY Past Surgical History: Procedure Laterality Date GALLBLADDER SURGERY 05/04/2023 REVIEW OF SYSTEMS Review of Systems: Review of Systems Constitutional: Negative. HENT: Negative. Eyes: Negative. Respiratory: Negative. Cardiovascular: Negative. Gastrointestinal: Negative. Genitourinary: Negative. Musculoskeletal: Negative. Skin: Negative. Neurological: Negative. All other systems reviewed and are negative. Hematological: Negative. Endocrine: Negative. Allergic/Immunologic: Negative. OBJECTIVE Objective: Physical Exam Constitutional: Appearance: Normal appearance. She is well-developed. Genitourinary: Vulva normal. Cardiovascular: Rate and Rhythm: Normal rate and regular rhythm. Pulmonary: Effort: Pulmonary effort is normal. Breath sounds: Normal breath sounds. Abdominal: General: Bowel sounds are normal. There is no distension. Palpations: Abdomen is soft. Tenderness: There is no abdominal tenderness. There is no guarding or rebound. Musculoskeletal: General: No swelling. Normal range of motion. Right lower leg: No edema. Left lower leg: No edema. Neurological: Mental Status: She is alert and oriented to person, place, and time. Skin: General: Skin is warm and dry. Psychiatric: Mood and Affect: Mood normal. Behavior: Behavior normal. Vitals and nursing note reviewed. Exam conducted with a compliance field technician present. Vitals: Estimated body mass index is 43.72 kg/m as calculated from the following: Height as of 03/07/23: 5' 3 . Weight as of this encounter: 246 lb 12.8 oz. BP: 128/84 Patient's last menstrual period was 10/30/2024. ASSESSMENT & PLAN Assessment/Plan Encounter Diagnosis: ICD-10-CM 1. HGSIL (high grade squamous intraepithelial lesion) on Pap smear of cervix R87.613 POCT , urine manually resulted Colposcopy Date/Time: 11/19/2024 3:05 PM Performed by: Fletcher Pro DO Authorized by: Fletcher Pro DO Consent: Patient questions answered: yes Risks and benefits of the procedure and its alternatives discussed: yes Procedural risks discussed: Bleeding, infection and repeat procedure Consent obtained: Written Consent given by: Patient Indication: Other indication(s): clinical abnormality Pre-procedure: Speculum was placed in the vagina: yes Prep solution(s): acetic acid Procedure: Cervix visibility: fully visualized Post-procedure: Patient tolerance of procedure: Patient tolerated the procedure well with no immediate complications Comments: Colposcopy: Patient is doing well and has no complaints. Pap results have been reviewed with the patient in great detail and patient voiced understanding. Patient presents today for a Colposcopy with ECC. Patient was placed in dorsal lithotomy position with feet in stirrups, a sterile speculum was placed into the vagina and the cervix was visualized. Cervix was cleansed with vinegar. Postprocedural instructions given. All if patients questions answered and she expressed understanding. Advised to call in interim with questions or concerns. Pap was HGSIL- pt to be scheduled for LEEP Rx for metformin faxed to pharmacy pt to return in 4 weeks for adipex. Follow Up: Patient is to return in 6 months for Repeat Pap. Documented by Nataliia Sandhu LPN on behalf of: Fletcher Pro DO documented in this encounter [facility] 10-22-2024 History of Presen t illness Narrative Reason for Appointment: Patient ID: Edison Ashley is a 24 y.o. female who presents for Well Women Visit Patient presents today for Annual Exam. and Consult appointment. MEDICATIONS No current outpatient medications ALLERGIES No Known Allergies PROBLEMS Active Ambulatory Problems Diagnosis Date Noted No Active Ambulatory Problems Resolved Ambulatory Problems Diagnosis Date Noted No Resolved Ambulatory Problems Past Medical History: Diagnosis Date Bacterial vaginosis GERD (gastroesophageal reflux disease) UTI (urinary tract infection) HISTORY PAST MEDICAL HISTORY SOCIAL HISTORY Past Medical History: Diagnosis Date Bacterial vaginosis GERD (gastroesophageal reflux disease) UTI (urinary tract infection) Social History Tobacco Use Smoking status: Never Smokeless tobacco: Never Substance Use Topics Alcohol use: Never Drug use: Never FAMILY HISTORY Family History Problem Relation Name Age of Onset Breast cancer Maternal Grandmother Diabetes Maternal Grandmother Hypertension Maternal Grandmother COPD Maternal Grandmother Stroke Maternal Grandmother Diabetes Maternal Grandfather COPD Maternal Grandfather Cancer Paternal Grandmother SURGICAL HISTORY Past Surgical History: Procedure Laterality Date GALLBLADDER SURGERY 05/04/2023 REVIEW OF SYSTEMS Review of Systems: Review of Systems Constitutional: Negative. HENT: Negative. Eyes: Negative. Respiratory: Negative. Cardiovascular: Negative. Gastrointestinal: Negative. Genitourinary: Negative. Musculoskeletal: Negative. Skin: Negative. Neurological: Negative. All other systems reviewed and are negative. Hematological: Negative. Endocrine: Negative. Allergic/Immunologic: Negative. OBJECTIVE Objective: Physical Exam Constitutional: Appearance: Normal appearance. She is well-developed. Genitourinary: Vulva normal. Cardiovascular: Rate and Rhythm: Normal rate and regular rhythm. Pulmonary: Effort: Pulmonary effort is normal. Breath sounds: Normal breath sounds. Abdominal: General: Bowel sounds are normal. There is no distension. Palpations: Abdomen is soft. Tenderness: There is no abdominal tenderness. There is no guarding or rebound. Musculoskeletal: General: No swelling. Normal range of motion. Right lower leg: No edema. Left lower leg: No edema. Neurological: Mental Status: She is alert and oriented to person, place, and time. Skin: General: Skin is warm and dry. Psychiatric: Mood and Affect: Mood normal. Behavior: Behavior normal. Vitals and nursing note reviewed. Exam conducted with a compliance field technician present. Vitals: Estimated body mass index is 43.65 kg/m as calculated from the following: Height as of 03/07/23: 5' 3 . Weight as of this encounter: 246 lb 6.4 oz. BP: 120/82 Patient's last menstrual period was 09/22/2024. ASSESSMENT & PLAN ICD-10-CM 1. Well woman exam with routine gynecological exam Z01.419 Pap Smear 2. UTI symptoms R39.9 POCT urinalysis dipstick manually resulted Orders Placed This Encounter Procedures POCT urinalysis dipstick manually resulted Annual Wellness Exam: Patient presents today for routine annual exam. Patient states she has complaints of heavy heavy periods, weight gain, discussed metformin, adipex and or GLP-1s. Pt given labs and ultrasound orders to have obtained. Rx for bactrim faxed to pharmacy for UTI symptoms. Patients vitals were reviewed and within normal limits. Growth and development is noted to be appropriate for age. Menstrual history is noted to be regular with concerns reported. No mental health concerns was expressed. Pap Smear: Speculum was inserted into the vagina and pap was obtained without difficulty. No HPV testing was performed per age guideline. Patient was advised that pap results could take anywhere from 7 to 10 days to receive and our office will reach out to the patient with those once we have them. Patient can also view results via [employer]. I reinforced importance of condom use for STI prevention. Patient declined cultures to be performed with today's visit. Breast Exam: Upon examination, clinical breast exam was noted to be normal. Patient was counseled on breast self-awareness, including the importance of knowing what is normal for her own breasts and promptly reporting any changes such as new lumps, skin dimpling, nipple discharge, or pain. Screening mammogram recommended annually beginning at age 40 or earlier if risk factors are present. Discussed signs and symptoms of breast cancer and when to seek medical attention. Answered all patient questions. Contraceptive Counseling (if applicable): Patient is currently using no control at this time as a form of contraceptive. Patient partner had vasectomy, discussed endometrial ablation Follow Up: Patient is to return to our office in one year for annual exam unless needed otherwise. Documented by Nataliia Sandhu LPN on behalf of: Fletcher Pro DO documented in this encounter [facility] 12-04-2023 History of Presen t illness Narrative HPI: Historian of HPI: patient Edison Ashley is a 23 y.o. female who [...] Allergic conjunctivitis of both eyes -Advised of [id number] Pataday eyedrops and Zyrtec 10 mg b.I.d. [...] persist or worsen documented in this encounter [facility] 05-22-2023 History of Presen t illness Narrative Images from the original note were not included. Subjective: Edison Ashley presents to the clinic nearly 2 [...] up: As needed documented in this encounter [facility] 04-20-2023 Instructions Terri Estrada RN - 04/20/2023 1:45 PM EST Your surgery/procedure is scheduled at [facility] on 05/04/23 at 0730 Arrival Time 0530 [facility] Address: [address] [place] [address] Park in [address] Parking lot located on [facility]. Report to the Entrance B. Check in at the information desk the surgery. The waiting room located on the second floor. If you have any questions prior to surgery, please call Pre-Admission Clinic at [phone] between 7:30 am and 4:30 pm Monday through Monday. If you have questions the morning of surgery, please call the Pre-op Department at [phone]. PLEASE FOLLOW THESE INSTRUCTIONS OR YOUR SURGERY [...] would like to schedule therapy at a [facility] facility, please call [phone] ([phone]). Do not use lotions, creams, powders, perfume, make up, cologne or after-shaves day of surgery. Remove ALL jewelry including wedding rings, body piercings,hair extensions that contain metal, nail luxembourgish, make-up, and contact lens. You may brush [...] RIGHTS AND RESPONSIBILITIES As a patient at [facility], you have the right to: Receive medical care and be informed of who is taking care of you Be treated with dignity and respect Have a family member/food products sales representative of choice and your physician notified of your admission Receive information and actively participate in decisions about your care and treatment Refuse care, treatment and services Decide who may provide your support and speak for you Access congregational and spiritual services Participate in ethical issues [...] of hospital charges and payment methods Patient/patient food products sales representative responsibilities are to: Provide information [...] in clean clothes. documented in this encounter [facility] 04-20-2023 Miscellaneous Notes Appt reminder call done-message left documented in this encounter [facility] 04-20-2023 Nurse Note Appt reminder call done-message left [facility] Evaluation note No assessment inform ation available [facility] Work Phone: Evaluation note Diagnosis Allergic conjunctivitis of both eyes- Primary Other chronic allergic conjunctivitis documented in this encounter [facility] Healthcare[facility] note* Diagnosis Status post laparoscopic cholecystectomy- Primary Other postprocedural status [facility] Well woman exam with routine gynecological exam Routine gynecological examination UTI symptoms PCOS (polycystic ovarian syndrome) Polycystic ovaries Menorrhagia with regular cycle documented in this encounter [facility] HealthcareEvaluation note* Diagnosis HGSIL (high grade squamous intraepithelial lesion) on Pap smear of cervix Weight gain Other symptoms concerning nutrition, metabolism, and development Insulin resistance Other abnormal glucose documented in this encounter [facility] Discharge instructions Additional Instructions Return if symptoms are worse Continue your Zofran and Reglan at home and will add Phenergan for vomiting [facility] Work Phone: Instructions* Attachments The following attachments cannot be sent through Care Everywhere. * Cholecystectomy Discharge Instructions (Uzbek) [facility] Hospital[facility] for [facility] (narrative)No reason for referral information [facility] Work Phone: Summary Purpose Family History No Family History Records FoundNo Family History Records FoundNo Family History Records FoundNo Family History Records FoundNo Family History Records FoundNo Family History Records FoundNo Family History Records Found Advance Directives No Advanced Directives Records Found Advance Directive Response Recorded Date/ Time Advance Directives No March 10, 2023 8:32pm Advance Directive Response Recorded Date/ Time Advance Directives No March 10, 2023 9:32pm Chief Complaint and Reason for Visit Chief Complaint 5wks right side flan k pain Chief Complaint Admit Date Unknown November 19, 2024 3: 00pm Additional Source Comments INFORMATION SOURCE (unrecogn ized section and content) DATE CREATED AUTHOR 09/28/2017 [facility] DATE CREATED AUTHOR AUTHOR'S ORGANIZ ATION 09/29/2017 [facility] DATE CREATED AUTHOR AUTHOR'S ORGANIZ ATION 04/16/2020 [facility] DATE CREATED AUTHOR AUTHOR'S ORGANIZ ATION 08/24/2022 [facility] DATE CREATED AUTHOR AUTHOR'S ORGANIZ ATION 05/24/2023 [facility] DATE CREATED AUTHOR AUTHOR'S ORGANIZ ATION 11/21/2024 [facility] DATE CREATED AUTHOR AUTHOR'S ORGANIZ ATION 11/21/2024 [facility] Care Teams (unrecognized sec tion and content) Team Status: Active Member Role Status Dates Supriya Cerrato Primary Care Provider Active Team Status: Inactive Member Role Status Dates Supriya Cerrato Primary Care Provider Active Jacky Alarcon MD Emergency Provider Active Able Bodied Seaman Relationship Specialty Start Date End Date Supriya Cerrato, FIRE ENGINE OPERATOR-CONTINUOUS STILL OPERATOR [address] [place] [id number] PCP - General Nurse Practitioner 03/30/23 Able Bodied Seaman Relationship Specialty Start Date End Date Supriya Cerrato FIRE ENGINE OPERATOR-CONTINUOUS STILL OPERATOR [address] [place] [phone] PCP - General Nurse Practitioner 03/30/23 Team Status: Inactive Member Role Status Dates Fletcher Pro DO Attending Provider Active Start : November 19, 2024 End: November 19, 2024 Goals (unrecognized section and content) Goals may be documented in a n alternate sectionNot on filedocumented as of this encounterNot on filedocumented as of this encounterGoals may be documented in an alternate section Reason for Visit (unrecogniz ed section and content) Reason Comments Well Women Visit Reason Comments Colposcopy FOR RECORDS PERTAINING TO PATIENTS WHO ARE [...] BE BASED ON THE PRIMARY CLINICAL RECORDS. [facility] [employer] provides no warranty or guarantee of the accuracy or completeness of information in this document.
== END 2024-11-19 15:14 | disposition home or self-care (01) ==
LOC: LAB 15:13
PROVIDERS: Visit Provider Obstetrics & Gynecology
DX: R87.613 High grade squamous intraepithelial lesion on cytologic smear of cervix (HGSIL) (principal)
CPT/HCPCS: 88305

== ENCOUNTER 2024-12-25 13:40 | Outpatient (OUT) | payer OTHER, SELFPAY ==
--- NOTE | 2024-12-25 14:08 | PM.PRESUREVA ---
History of Present Illness History of Present Illness Chief complaint: HGSIL Narrative: Patient presents for presurgical testing. Please see HPI from Dr. Pro dated December 16, 2024. Review of Systems ROS Narrative Please see ROS from Dr. Pro dated December 16, 2024. [facility] Medical History (Updated 12/25/24 @ 13:57 by Billie Aguilera NP) Low iron ?E61.1 - Iron deficiency (ICD-10) Anemia ?D64.9 - Anemia, unspecified (ICD-10) Insulin resistance ?E88.819 - Insulin resistance, unspecified (ICD-10) UTI (urinary tract infection) ?N39.0 - Urinary tract infection, site not specified (ICD-10) GERD (gastroesophageal reflux disease) ?K21.9 - Gastro-esophageal reflux disease without esophagitis (ICD-10) HGSIL (high grade squamous intraepithelial lesion) on Pap smear of cervix ?R87.613 - High grade squamous intraepithelial lesion on cytologic smear of cervix (HGSIL) (ICD-10) Hx of iron deficiency anemia ?Z86.2 - Personal history of diseases of the blood and blood-forming organs and certain disorders involving the immune mechanism (ICD-10) Surgical History (Updated 12/25/24 @ 13:57 by Billie Aguilera NP) History of esophagogastroduodenoscopy (EGD) ?Z98.890 - Other specified postprocedural states (ICD-10) History of colonoscopy ?Z98.890 - Other specified postprocedural states (ICD-10) Hx of cholecystectomy ?Z90.49 - Acquired absence of other specified parts of digestive tract (ICD-10) Family History (Updated 12/25/24 @ 13:51 by Billie Aguilera NP) Other Family history of COPD (chronic obstructive pulmonary disease) Family history of cancer Family history of diabetes mellitus Family history of hypertension Family history of stroke Social History (Updated 12/25/24 @ 13:54 by Billie Aguilera NP) Within the past year, how often did you have a drink containing alcohol: never Score interpretation: A score less than 3 is consistent with normal alcohol consumption. Smoking status: Never smoker Non-prescribed substance use: denies use Previous occupational history: [employer] Highest level of school completed/degree received: high school graduate Meds Home Medications and Allergies Home Medications ?Medication ?Instructions ?Recorded ?Confirmed ?Type metformin 500 mg tablet 500 mg PO DAILY 12/25/24 12/25/24 History Allergies Allergy/AdvReac Type Severity Reaction Status Date / Time No Known Drug Allergies Allergy Verified 12/25/24 13:53 Exam Narrative Exam Narrative: Constitutional: Awake, alert, comfortable, well-appearing, nontoxic, interactive, vital signs as charted Head: Normocephalic, atraumatic Neck: Supple, normal appearance, normal range of motion, no meningeal signs, no lymphadenopathy Respiratory: No respiratory distress, breath sounds clear Cardiovascular: Regular rate and rhythm, strong and regular heart tones Abdomen: Nontender, normal bowel sounds, soft, no CVA tenderness Musculoskeletal: Normal gait, no swelling or edema Skin: No rashes or induration, no lesions, only visible skin inspected Neuro: No neurological deficits, normal sensation Psychiatric: Oriented ?3, normal affect Assessment and Plan Assessment and Plan (1) HGSIL (high grade squamous intraepithelial lesion) on Pap smear of cervix: Plan LEEP scheduled with Dr. Pro January 01, 2025.
== END 2024-12-25 13:41 | disposition home or self-care (01) ==
LOC: PST 13:41
PROVIDERS: Visit Provider Obstetrics & Gynecology
DX: Z01.818 Encounter for other preprocedural examination (principal); R87.613 High grade squamous intraepithelial lesion on cytologic smear of cervix (HGSIL)
CPT/HCPCS: G0463

== ENCOUNTER 2025-01-01 07:51 | Day surgery (SDC) | payer OTHER, SELFPAY ==
[2024-12-25 14:01] VITALS: BP 123/87; PULSE 100; TEMP 36.2; O2SAT 97; BMI 43.3
--- OUTSIDE RECORDS SUMMARY | 2025-01-01 07:55 | XMS_ITS | CCD ---
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 Name Role Phone Icard, Dickson W Unavailable Unavailable Galdino, Dickson W Unavailable Unavailable No Doctor Assigned, Nodr Unavailable Unavail able Galdino, Dickson W Unavailable Unavailable Galdino, Dickson W Unavailable Unavailable No Doctor Assigned, Nodr Unavailable Unavail able SHEMAR ., STEFAN Admitting Unavailable SHEMAR ., STEFAN Consulting Unavailable AICHHOLZ, TRAVELING REPAIR ACCOUNTANT SUPRIYA Primary Care Unavailable SHEMAR ., STEFAN Attending Unavailable MORTEZA ., DR LAUREN Admitting Unavailable SHEMAR ., STEFAN Consulting Unavailable AICHHOLZ, TRAVELING REPAIR ACCOUNTANT SUPRIYA Primary Care Unavailable MORTEZA ., DR LAUREN Attending Unavailable SHEMAR ., STEFAN Admitting Unavailable SHEMAR ., STEFAN Consulting Unavailable SHEMAR ., STEFAN Attending Unavailable AICHHOLZ, TRAVELING REPAIR ACCOUNTANT SUPRIYA Primary Care Unavailable AICHHOLZ, TRAVELING REPAIR ACCOUNTANT SUPRIYA Primary Care Unavailable MORTEZA ., DR LAUREN Attending Unavailable MORTEZA ., DR LAUREN Admitting Unavailable MORTEZA ., DR LAUREN Admitting Unavailable MORTEZA ., DR LAUREN Attending Unavailable AICHHOLZ, TRAVELING REPAIR ACCOUNTANT SUPRIYA Primary Care Unavailable MORTEZA ., DR LAUREN Consulting Unavailable KARASIK ., DR MURPHY Attending Unavailabl e AICHHOLZ, TRAVELING REPAIR ACCOUNTANT SUPRIYA Primary Care Unavailable KARASIK ., DR [...] MORTEZA ., DR LAUREN Consulting Unavailable AICHHOLZ, TRAVELING REPAIR ACCOUNTANT SUPRIYA Primary Care Unavailable MORTEZA ., DR LAUREN Attending Unavailable Zieber, Pam Consulting Unavailable MORTEZA ., DR LAUREN Consulting Unavailable REQUEST, DR NONE LISTED Primary Care Unavaila ble MORTEZA ., DR LAUREN Attending Unavailable MORTEZA ., DR LAUREN Admitting Unavailable Zieber, Pam Consulting Unavailable MORTEZA ., DR LAUREN Admitting Unavailable AICHHOLZ, TRAVELING REPAIR ACCOUNTANT SUPRIYA Primary Care Unavailable MORTEZA ., DR LAUREN Attending Unavailable [place], DR DONALD Bryan Consulting Unavailable MORTEZA ., DR LAUREN Consulting Unavailable MORTEZA ., DR LAUREN Admitting Unavailable AICHHOLZ, TRAVELING REPAIR ACCOUNTANT SUPRIYA Primary Care Unavailable MORTEZA ., DR LAUREN Attending Unavailable MORTEZA ., DR LAUREN Consulting Unavailable SHEMAR ., STEFAN Attending Unavailable SHEMAR ., STEFAN Admitting Unavailable Zieber, Pam Consulting Unavailable REQUEST, DR NONE LISTED Primary Care Unavaila ble SHEMAR ., STEFAN Consulting Unavailable MORTEZA ., DR LAUREN Admitting Unavailable MORTEZA ., DR LAUREN Consulting Unavailable MORTEZA ., DR LAUREN Attending Unavailable AICHHOLZ, TRAVELING REPAIR ACCOUNTANT SUPRIYA Primary Care Unavailable Aichholz, Supriya J Primary Care Provider MD Jacky Alarcon Emergency Provider Unavailable Primary [...] AICHHOLZ, SUPRIYA J Primary Care Unavailable Aichholz ASSOCIATE PROFESSOR OF BIOLOGY-TRAVELING REPAIR ACCOUNTANT, Supriya J Primary Care Provider Fletcher Pro DO Attending Provider Fletcher Pro Attending Unavailable Fletcher Pro Admitting Unavailable FLETCHER PRO Attending Unavailable MORTEZA, FLETCHER Attending Unavailable FLETCHER PRO Attending Unavailable Allergies Allergy Classification Reported Allergen(s) Allergy Type Date of Onset Reaction(s) Facility (1 source) No Known Medication Allergies; Translations: [No Known Medication Allergies] Propensity to adverse reactions to drug (disorder) [facility] Repository Medications Current Medications Medication Drug [...] Active metFORMIN hydrochloride 500 mg oral tablet (2 sources) Biguanide Start: 11-19-2024 End: 11-19-2025 take 1 [...] morning. 10/22/2024 Discontinued 21 day ethinyl estradiol 0.834057 mg/hr / etonogestrel 0.005 mg/hr vaginal system [...] without obstruction] 03-10-2023 Episodic Cancer of cervix (4 sources) High grade squamous intraepithelial lesion on [...] return in 6 months for Repeat Pap. [facility] HCG ( test) Ql (U)o n 11-19-2024 Interpretation and review of laboratory results Normal [facility] Preg Test, Ur Negative Negative [facility] Lamberto 11-19-2024 L ------- Specimen: [id number] Received: 11/20/24 Status: RACHEL Guillory Num: [id number] Spec Type: Surgical Subm Dr: Fletcher Pro Tissues: A Endocervix - Curettings (ENDOCERVIX) Procedures: HE/2, Gross/Micro L4 Age/ Patient Sex Location Account Attending Physician Edison Ashley / LABELL [id number] Fletcher Pro SPEC NUM: [id number] RECD: 11/20/24 STATUS: RACHEL GUILLORY NUM: [id number] MAISHA: 11/19/240000 SUBM DR: Fletcher Pro ENTERED: 11/20/24 [facility] DR: Eldon,Lab SPEC TYPE: Surgical DEPT: LINDA GUERRERO ENTERED BY: [id number] RECV BY: [id number] ORDERED: HE/2, Gross/Micro L4 ORDERED: HE/2, Gross/Micro [...] submitted in a single cassette. (1, moi, [id number]) Microscopic Description Microscopic examination is performed. Specimen: [id number] Received: 11/20/24 Status: RACHEL Marquezmarisela Num: [id number] Spec Type: Surgical Subm Dr: Fletcher Pro Tissues: A Endocervix - Curettings (ENDOCERVIX) Procedures: /2, Barrett/Jose L4 Patient: Edison Ashley [id number] (Continued) Specimen: [id number] Received: 11/20/24 (Continued) Signed (signature on file) Demarcus Pham MD 11/21/24 1207 Specimen: [id number] Received: 11/20/24 Status: RACHEL Guillory Num: [id number] Spec Type: Surgical Subm Dr: Fletcher Pro Tissues: A Endocervix - Curettings (ENDOCERVIX) Procedures: HE/Cj, Barrett/Jose L4 Patient: AshleyAshford L [id number] (Continued) Specimen: [id number] Received: 11/20/24 (Continued) CPT Codes 29890 Specimen: [id number] Received: 11/20/24 Status: RACHEL Guillory Num: [id number] Spec Type: Surgical Subm Dr: Fletcher Pro Tissues: A Endocervix - Curettings (ENDOCERVIX) Procedures: HE/2, Gross/Micro L4 Patient: Edison Ashley [id number] (Continued) Signed (signature on file) Demarcus Pham MD 11/21/24 1207 Normal [facility] US PELVIC COMPLETE W/ TVon [...] II, MD, PHD at 07-Nov-2024 08:33:18 AM [facility] Normal Not Available Comment on above: Order Comment: US PE LVIS-TRANSVAG IF INDICATED Patient's last menstrual period was 09/22/2024. ALL CBC WITH AUTO DIFFon BASOPHILS ABSOLUTE AUTO 0 [facility] Basophils/100 WBC (Bld) 0.4 % 0.2 - 2.0 % [facility] Eosinophils/100 WBC (Bld) 4.3 % 0.9 - 7.0 % [facility] Erythrocyte distribution width (RBC) [Ratio] 11.9 % 11.0 - 15.0 % [facility] Hematocrit (Bld) [Volume fraction] 42.9 % 36.0 - 48.0 % [facility] Hemoglobin (Bld) [Mass/Vol] 15 g/dL 12.0 - 16.0 g/dL [facility] IMMATURE GRANULOCYTES ABS AUTO 0.03 [facility] Immature granulocytes/100 WBC (Bld) 0.3 % 0.0 - 0.5 % [facility] Interpretation and review of laboratory results Abnormal [facility] LYMPHOCYTES ABSOLUTE AUTO 2.9 [facility] Lymphocytes/100 WBC (Bld) 27 % 20.5 - 60.0 % [facility] MCH (RBC) [Entitic mass] 30.4 pg 26.7 - 34.0 pg [facility] MCHC (RBC) [Mass/Vol] 35 g/dL 29.9 - 35.2 g/dL [facility] MCV (RBC) [Entitic vol] 86.8 fL 81.0 - 99.0 fL [facility] MONOCYTES ABSOLUTE AUTO 0.7 [facility] Monocytes/100 WBC (Bld) 6.4 % 1.7 - 12.0 % [facility] NEUTROPHILS ABSOLUTE AUTO 6.7 High [facility] Neutrophils/100 WBC (Bld) 61.6 % 43.0 - 75.0 % [facility] Platelet mean volume (Bld) [Entitic vol] 10.7 fL 9.5 - 13.5 fL [facility] TBH EO # 0.5 [facility] TBH PLT 244 [facility] TB RBC 4.94 [facility] TBH WBC 10.8 [facility] Urinalysis macro (dipstick) panel (U)on 10-22-2024 Bilirubin, UA Negative Negative - 4(70) +++ mg/dL [facility] Blood, UA Negative Negative - 50 Shai/mcL [facility] Clarity, UA Clear [facility] Color, UA Yellow [facility] Glucose, UA Negative Negative - 1999(110) ++++ mg/dL [facility] Interpretation and review of laboratory results Normal [facility] Ketones, UA Negative Negative - 160(16) ++++ mg/dL [facility] Leukocytes, UA Negative Negative - 500+++ Uche/mcL [facility] Nitrite, UA Negative Negative - Positive [facility] pH, UA 6 5 - 9 [facility] Protein, UA Negative Negative - 1999(20) ++++ mg/dL [facility] Spec Grav, UA 1.01 1 - 1.03 [facility] Urobilinogen, UA 1.0 0.2 - 12 mg/dL [facility] ALL CBC WITH AUTO DIFFon BASOPHILS ABSOLUTE [...] [facility] Monocytes/100 WBC (Bld) 4.7 % 1.7 - 12.0 % [facility] NEUTROPHILS ABSOLUTE AUTO 7.6 High [facility] Neutrophils/100 WBC (Bld) 73.2 % 43.0 - 75.0 % [facility] Platelet mean volume (Bld) [Entitic vol] 11.4 fL 9.5 - 13.5 fL [facility] TBH EO # 0.2 [facility] TB PLT 218 [facility] TB RBC 4.40 [facility] WBC 10.4 [facility] Surgical Pathologyon 024 Surgical Pathology Normal [facility] Comment on above: Result Comment: [facility] [address] [place] [address] Surgical Pathology Consultation Patient Name:EDISON ASHLEY:2000 (Age: 23)Gender:FTaken:4Reported:4Physician(s):GERSON Kelsey To: Rec. 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 No evidence of malignancy or dysplasia. Cholelithiasis. Report Electronically Signed Out ao/4Aolamide Moreno MD Interpretation performed at [facility], [address] [place] [address], License number: [id number]. Clinical History Cholelithiasis. Gross Description Received in [...] congested, hemorrhagic and velvety in the neck. Electrical Service Technician sections are submitted in cassettes A- B, as: A- cystic duct margin and customer service representative teller ragged defects,B- customer service representative teller neck body and fundus. After initial microscopic evaluation, additional sections are submitted in cassettes C-E. (5,ss,[id number], m6) MARYJANE/ mxw/05/04/2023SSI Specimen(s) Received Gallbladder Fee Codes(s): 1; 91047 Alanine aminotransferase [En zymatic activity/volume] in Serum or PlasmaOrdered By: Jacky Alarcon on 03-10-2023 ALT [Catalytic activity/Vol] 36 U/L 7-52 [facility] Albumin [Mass/volume] in Ser um or Plasma by Bromocresol green (BCG) dye binding methoOrdered By: Jacky Alarcon on 03-10-2023 Albumin BCG dye [Mass/Vol] 4.5 g/dL 3.5-5.7 [facility] Alkaline phosphatase [Enzyma tic activity/volume] in Serum or PlasmaOrdered By: Jacky Alarcon on 03-10-2023 ALP [Catalytic activity/Vol] 71 U/L 34-104 [facility] Aspartate aminotransferase [ Enzymatic activity/volume] in Serum or PlasmaOrdered By: Jacky Alarcon on 03-10-2023 AST [Catalytic activity/Vol] 17 U/L 13-39 [facility] Automated erythrocytes count in urine sediment (number/area)Ordered By: Jacky Alarcon on 03-10-2023 RBC Auto (Urine sed) [#/Area] 50-100 [HPF] 0-4 [facility] Automated leukocytes count i n urine sediment (number/area)Ordered By: Jacky Alarcon on 03-10-2023 WBC Auto (Urine sed) [#/Area] 5-9 [HPF] 0-4 [facility] Basophils Auto (Bld) [#/Vol] Ordered By: Jacky Alarcon on 03-10-2023 Basophils (Bld) [#/Vol] 0.1 10*3/uL 0.0-0.2 [facility] Basophils/100 WBC Auto (Bld) Ordered By: Jacky Alarcon on 03-10-2023 Basophils/100 WBC (Bld) 0.4 % . [facility] Bilirubin Test strip Ql (U)O rdered By: Jacky Alarcon on 03-10-2023 Bilirubin Ql (U) Negative Negative [facility] Bilirubin.direct [Mass/volum e] in Serum or PlasmaOrdered By: Jacky Alarcon on 03-10-2023 Bilirubin.direct [Mass/Vol] 0.40 mg/dL 0.03-0.18 [facility] Bilirubin.total [Mass/volume ] in Serum or PlasmaOrdered By: Jacky Alarcon on 03-10-2023 Bilirubin [Mass/Vol] 1.2 mg/dL 0.3-1.0 [facility] Calcium [Mass/volume] in Ser um or PlasmaOrdered By: Jacky Alarcon on 03-10-2023 Calcium [Mass/Vol] 9.3 mg/dL 8.6-10.3 [facility] Carbon dioxide, total [Moles /volume] in Serum or PlasmaOrdered By: Jacky Alarcon on 03-10-2023 CO2 [Moles/Vol] 18.8 mmol/L 21.0-31.0 [facility] Chloride [Moles/volume] in S rahul or PlasmaOrdered By: Jacky Alarcon on 03-10-2023 Chloride [Moles/Vol] 101 mmol/L 98-107 [facility] Choriogonadotropin.beta subu nit [Units/volume] in Serum or PlasmaOrdered By: Jacky Alarcon on 03-10-2023 [place] [address].00 m[IU]/mL [facility] Comment on above: Approximate Approxim ate hCG Gestational Age Range (mIU/ml) (weeks)0.2-1 5-50 1-2 50-500 2-3 100-5,000 3-4 500-10,000 4-5 1,000-50,000 5-6 10,000-100,000 6-8 15,000-200,000 8-12 10,000-100,000 Color Auto (U)Ordered By: Corinna Alarcon on 03-10-2023 Color (U) Dark yellow Yellow [facility] Creatinine [Mass/volume] in Serum or PlasmaOrdered By: Jacky Alarcon on 03-10-2023 Creatinine [Mass/Vol] 0.64 mg/dL 0.60-1.20 [facility] Eosinophils Auto (Bld) [#/Vo l]Ordered By: Jacky Alarcon on 03-10-2023 Eosinophils (Bld) [#/Vol] 0.1 10*3/uL 0.0-0.45 [facility] Eosinophils/100 WBC Auto (Bl d)Ordered By: Jacky Alarcon on 03-10-2023 Eosinophils/100 WBC (Bld) 0.5 % . [facility] Erythrocyte distribution wid th Auto (RBC) [Ratio]Ordered By: Jacky Alarcon on 03-10-2023 Erythrocyte distribution width (RBC) [Ratio] 13.3 % 11.9-15.3 [facility] Globulin Calc (S) [Mass/Vol] Ordered By: Jacky Alarcon on 03-10-2023 Globulin (S) [Mass/Vol] 3.5 g/dL [facility] Glucose [Mass/volume] in Ser um [...] 03-10-2023 HCG ( test) Ql (U) Positive [facility] Hematocrit Auto (Bld) [Volum e fraction]Ordered By: Jacky Alarcon on 03-10-2023 Hematocrit (Bld) [Volume fraction] 47.2 % 34.0-46.4 [facility] Hemoglobin [Mass/volume] in BloodOrdered By: Jacky Alarcon on 03-10-2023 Hemoglobin (Bld) [Mass/Vol] 16.5 g/dL 11.8-15.4 [facility] Ketones Auto test strip (U) [Mass/Vol]Ordered By: Jacky Alarcon on 03-10-2023 Ketones (U) [Mass/Vol] 4+ Negative [facility] - UrinalysisOrder ed By: Jacky Alarcon on 03-10-2023 Hyaline casts LM Ql (Urine sed) 9-19 [LPF] 0-8 [facility] Leukocytes [#/volume] correc anabell for nucleated erythrocytes in Blood by Automated counOrdered By: Jacky Alarcon on 03-10-2023 WBC corrected for nucl RBC Auto (Bld) [#/Vol] 16.0 10*3/uL 3.8-11.6 [facility] Lipase [Enzymatic activity/v olume] in Serum or PlasmaOrdered By: Jacky Alarcon on 03-10-2023 Lipase [Catalytic activity/Vol] 35.0 U/L 11.0-82.0 [facility] Lymphocytes Auto (Bld) [#/Vo l]Ordered By: Jacky Alarcon on 03-10-2023 Lymphocytes (Bld) [#/Vol] 1.9 10*3/uL 1.00-4.8 [facility] Lymphocytes/100 WBC Auto (Bl d)Ordered By: Jacky Alarcon on 03-10-2023 Lymphocytes/100 WBC (Bld) 11.6 % . [facility] MCH Auto (RBC) [Entitic mass ]Ordered By: Jacky Alarcon on 03-10-2023 MCH (RBC) [Entitic mass] 30.8 pg 24.7-34.3 [facility] MCHC Auto (RBC) [Mass/Vol]Or dered By: Jacky Alarcon on 03-10-2023 MCHC (RBC) [Mass/Vol] 35.0 g/dL 32.0-35.0 [facility] MCV Auto (RBC) [Entitic vol] Ordered By: Jacky Alarcon on 03-10-2023 MCV (RBC) [Entitic vol] 87.8 fL 80-100 [facility] Monocyte distribution width [Entitic volume] in Blood by AutomatedOrdered By: Jacky Alarcon on 03-10-2023 Monocyte distribution width Auto (Bld) [Entitic vol] 16.05 % 0.00-20.00 [facility] Monocytes Auto (Bld) [#/Vol] Ordered By: Jacky Alarcon on 03-10-2023 Monocytes (Bld) [#/Vol] 1.4 10*3/uL 0.0-0.8 [facility] Monocytes/100 WBC Auto (Bld) Ordered By: Jacky Alarcon on 03-10-2023 Monocytes/100 WBC (Bld) 8.8 % . [facility] Neutrophils Auto (Bld) [#/Vo l]Ordered By: Jacky Alarcon on 03-10-2023 Neutrophils (Bld) [#/Vol] 12.6 10*3/uL 1.8-7.7 [facility] Neutrophils/100 WBC Auto (Bl d)Ordered By: Jacky Alarcon on 03-10-2023 Neutrophils/100 WBC (Bld) 78.7 % . [facility] Nitrite Test strip Ql (U)Ord ered By: Jacky Alarcon on 03-10-2023 Nitrite Ql (U) Negative Negative [facility] No Panel InformationOrdered By: Jacky Alarcon on 03-10-2023 Estimated GFR (CKD-EPI) > 60.0 mL/Min [facility] Creatinine Clearance (Chem 148.58 [facility] Nucleated erythrocytes [Pres ence] in Blood by Automated countOrdered By: Jacky Alarcon on 03-10-2023 Nucleated RBC Auto Ql (Bld) 0.1 /100{WBC} 0-0.5 [facility] Platelet mean volume Auto (B ld) [Entitic vol]Ordered By: Jacky Alarcon on 03-10-2023 Platelet mean volume (Bld) [Entitic vol] 9.7 fL 6.3-10.7 [facility] Platelets Auto (Bld) [#/Vol] Ordered By: Jacky Alarcon on 03-10-2023 Platelets (Bld) [#/Vol] 263 10*3/uL 150-450 [facility] Potassium [Moles/volume] in Serum or PlasmaOrdered By: Jacky Alarcon on 03-10-2023 Potassium [Moles/Vol] 3.3 mmol/L 3.5-5.1 [facility] Protein Auto test strip (U) [Mass/Vol]Ordered By: Jacky Alarcon on 03-10-2023 Protein (U) [Mass/Vol] 100 mg/dL Negative [facility] Protein [Mass/volume] in Ser um or PlasmaOrdered By: Jacky Alarcon on 03-10-2023 Protein [Mass/Vol] 8.0 g/dL 6.4-8.9 [facility] RBC Auto (Bld) [#/Vol]Ordere d By: Jacky Alarcon on 03-10-2023 RBC (Bld) [#/Vol] 5.37 10*6/uL 3.60-5.00 [facility] Serum or plasma albumin/glob ulin mass ratioOrdered By: Jacky Alarcon on 03-10-2023 Albumin/Globulin [Mass ratio] 1.3 {ratio} [facility] Serum or plasma anion gap de terminationOrdered By: Jacky Alarcon on 03-10-2023 Anion gap [Moles/Vol] 16.5 mmol/L 6.0-15.0 [facility] Serum or plasma non-glucuron idated bilirubin measurement (mass/volume)Ordered By: Jacky Alarcon on 03-10-2023 Bilirubin.indirect [Mass/Vol] 0.8 mg/dL [facility] Sodium [Moles/volume] in Ser um or PlasmaOrdered By: Jacky Alarcon on 03-10-2023 Sodium [Moles/Vol] 133 mmol/L 136-145 [facility] Specific gravity Auto test s trip (U) [Rel density]Ordered By: Jacky Alarcon on 03-10-2023 Specific gravity (U) [Rel density] 1.029 1.001-1.03 0 [facility] Squamous epithelial cells de tection in urine sediment by light microscopyOrdered By: Jacky Alarcon on 03-10-2023 Epithelial cells.squamous LM Ql (Urine sed) 1-2 [HPF] 0-2 [facility] Urea nitrogen [Mass/volume] in Serum or PlasmaOrdered By: Jacky Alarcon on 03-10-2023 Urea nitrogen [Mass/Vol] 6 mg/dL 7-25 [facility] Urine bacteria detection by automated methodOrdered By: Jacky Alarcon on 03-10-2023 Bacteria Auto Ql (U) Rare None Seen [facility] Urine clarity by refractomet ry automatedOrdered By: Jacky Alarcon on 03-10-2023 Clarity Refractometry automated (U) Turbid Clear [facility] Urine glucose measurement by automated test strip (mass/volume)Ordered By: Jacky Alarcon on 03-10-2023 Glucose Auto test strip (U) [Mass/Vol] Normal mg/dL Normal [facility] Urine hemoglobin detection b y automated test stripOrdered By: Jacky Alarcon on 03-10-2023 Hemoglobin Auto test strip Ql (U) 3+ Negative [facility] Urine leukocyte esterase det ection by automated test stripOrdered By: Jacky Alarcon on 03-10-2023 Leukocyte esterase Auto test strip Ql (U) 1+ Negative [facility] Urine sediment crystal ident ification by light microscopyOrdered By: Jacky Alarcon on 03-10-2023 Crystals LM Nom (Urine sed) See comment [facility] Comment on above: sulfa crystals Urobilinogen Auto test strip (U) [Mass/Vol]Ordered By: Jacky Alarcon on 03-10-2023 Urobilinogen (U) [Mass/Vol] Normal mg/dL Normal [facility] WBC Auto (Bld) [#/Vol]Ordere d By: Jacky Alarcon on 03-10-2023 WBC (Bld) [#/Vol] 16.0 10*3/uL 3.8-11.6 [facility] pH Auto test strip (U)Ordere d By: Jacky Alarcon on 03-10-2023 pH (U) 6.5 [pH] 5.0-9.0 [facility] CBC AUTO DIFFon 07-30-2022 BASO # 0.1 103/ul Normal 0.0-0.1 [facility] Comment on above: Performed By: #### G TT3P #### [facility] [address] [place] [address] Dr. Jackelyn Celestin Basophils/100 WBC (Bld) 0.6 % Normal 0.2-2.0 [facility] Comment on above: Performed By: #### G TT3P #### [facility] [address] [address] [address] Jackelyn Celestin EO # 0.2 103/ul Normal 0.0-0.7 [facility] Comment on above: Performed By: #### G TT3P #### [facility] [address] [place] [address] Dr. Jackelyn Celestin Eosinophils/100 WBC (Bld) 1.5 % Normal 0.9-7.0 [facility] Comment on above: Performed By: #### G TT3P #### [facility] [address] [place] [address] Dr. Jackelyn Celestin Erythrocyte distribution width (RBC) [Ratio] 14.5 % Normal 11.0-15.0 [facility] Comment on above: Performed By: #### G TT3P #### [facility] [address] [place] [address] Dr. Jackelyn Celestin Hematocrit (Bld) [Volume fraction] 33.9 % Critically low 36.0-48.0 [facility] Comment on above: Performed By: #### G TT3P #### [facility] [address] [place] [address] Dr. Jackelyn Celestin Hemoglobin (Bld) [Mass/Vol] 11.0 g/dL Critically low 12.0-16.0 [facility] Comment on above: Performed By: #### G TT3P #### [facility] [address] [place] [address] Dr. Jackelyn Celestin IG # 0.13 10e3/ul Critically high 0.00-0.03 [facility] Comment on above: Performed By: #### G TT3P #### [facility] [address] [place] [address] Dr. Jackelyn Celestin IG % 1.1 % Critically high 0.0-0.5 [facility] Comment on above: Performed By: #### G TT3P #### [facility] [address] [place] [address] Dr. Jackelyn Celestin LYMPH # 2.2 103/ul Normal 1.2-3.8 [facility] Comment on above: Performed By: #### G TT3P #### [facility] [address] [place] [address] Dr. Jackelyn Celestin Lymphocytes/100 WBC (Bld) 17.9 % Critically low 20.5-60.0 [facility] Comment on above: Performed By: #### G TT3P #### [facility] [address] [place] [address] Dr. Jackelyn Celestin MANUAL DIFF REQ NO Normal [facility] Comment on above: Performed By: #### G TT3P #### [facility] [address] [place] [address] Dr. Jackelyn Celestin MCH (RBC) [Entitic mass] 28.6 pg Normal 26.7-34.0 [facility] Comment on above: Performed By: #### G TT3P #### [facility] [address] [place] [address] Dr. Jackelyn Celestin MCHC (RBC) [Mass/Vol] 32.4 g/dL Normal 29.9-35.2 [facility] Comment on above: Performed By: #### G TT3P #### [facility] [address] [place] [address] Dr. Jackelyn Celestin MCV (RBC) [Entitic vol] 88.1 fL Normal 81.0-99.0 [facility] Comment on above: Performed By: #### G TT3P #### [facility] [address] [place] [address] Dr. Jackelyn Celestin MONO # 0.8 103/ul Normal 0.3-0.8 [facility] Comment on above: Performed By: #### G TT3P #### [facility] [address] [place] [address] Dr. Jackelyn Celestin Monocytes/100 WBC (Bld) 6.9 % Normal 1.7-12.0 [facility] Comment on above: Performed By: #### G TT3P #### [facility] [address] [place] [address] Dr. Jackelyn Celestin NEUT # 8.7 103/ul Critically high 1.4-6.5 [facility] Comment on above: Performed By: #### G TT3P #### [facility] [address] [place] [address] Dr. Jackelyn Celestin Neutrophils/100 WBC (Bld) 72.0 % Normal 43.0-75.0 [facility] Comment on above: Performed By: #### G TT3P #### [facility] [address] [place] [address] Dr. Jackelyn Celestin Platelet mean volume (Bld) [Entitic vol] 11.5 fL Normal 9.5-13.5 [facility] Comment on above: Performed By: #### G TT3P #### [facility] [address] [place] [address] Dr. Jackelyn Celestin PLT 146 103/ul Critically low 150-450 [facility] Comment on above: Performed By: #### G TT3P #### [facility] [address] [place] [address] Dr. Jackelyn Celestin RBC 3.85 106/ul Critically low 4.20-5.40 [facility] Comment on above: Performed By: #### G TT3P #### [facility] [address] [place] [address] Dr. Jackelyn Celestin WBC 12.1 103/ul Critically high 4.0-11.0 [facility] Comment on above: Performed By: #### G TT3P #### [facility] [address] [place] [address] Dr. Jackelyn Celestin CBC AUTO DIFFon 07-29-2022 BASO # 0.0 103/ul Normal 0.0-0.1 [facility] Comment on above: Performed By: #### 4 [id number] #### [facility] [address] [place] [address] Dr. Jackelyn Celestin Basophils/100 WBC (Bld) 0.4 % Normal 0.2-2.0 [facility] Comment on above: Performed By: #### 4 [id number] #### [facility] [address] [place] [address] Dr. Jackelyn Celestin EO # 0.2 103/ul Normal 0.0-0.7 [facility] Comment on above: Performed By: #### 4 [id number] #### [facility] [address] [place] [address] Dr. Jackelyn Celestin Eosinophils/100 WBC (Bld) 1.4 % Normal 0.9-7.0 [facility] Comment on above: Performed By: #### 4 [id number] #### [facility] [address] [place] [address] Dr. Jackelyn Celestin Erythrocyte distribution width (RBC) [Ratio] 14.1 % Normal 11.0-15.0 [facility] Comment on above: Performed By: #### 4 [id number] #### [facility] [address] [place] [address] Dr. Jackelyn Celestin Hematocrit (Bld) [Volume fraction] 36.0 % Normal 36.0-48.0 [facility] Comment on above: Performed By: #### 4 [id number] #### [facility] [address] [place] [address] Dr. Jackelyn Celestin Hemoglobin (Bld) [Mass/Vol] 12.2 g/dL Normal 12.0-16.0 [facility] Comment on above: Performed By: #### 4 [id number] #### [facility] [address] [place] [address] Dr. Jackelyn Celestin IG # 0.10 10e3/ul Critically high 0.00-0.03 [facility] Comment on above: Performed By: #### 4 [id number] #### [facility] [address] [place] [address] Dr. Jackelyn Celestin IG % 0.9 % Critically high 0.0-0.5 [facility] Comment on above: Performed By: #### 4 [id number] #### [facility] [address] [place] [address] Dr. Jackelyn Celestin LYMPH # 1.9 103/ul Normal 1.2-3.8 [facility] Comment on above: Performed By: #### 4 [id number] #### [facility] [address] [place] [address] Dr. Jackelyn Celestin Lymphocytes/100 WBC (Bld) 17.7 % Critically low 20.5-60.0 [facility] Comment on above: Performed By: #### 4 [id number] #### [facility] [address] [place] [address] Dr. Jackelyn Celestin MANUAL DIFF REQ NO Normal [facility] Comment on above: Performed By: #### 4 [id number] #### [facility] [address] [place] [address] Dr. Jackelyn Celestin MCH (RBC) [Entitic mass] 28.8 pg Normal 26.7-34.0 [facility] Comment on above: Performed By: #### 4 [id number] #### [facility] [address] [place] [address] Dr. Jackelyn Celestin MCHC (RBC) [Mass/Vol] 33.9 g/dL Normal 29.9-35.2 [facility] Comment on above: Performed By: #### 4 [id number] #### [facility] [address] [place] [address] Dr. Jackelyn Celestin MCV (RBC) [Entitic vol] 84.9 fL Normal 81.0-99.0 [facility] Comment on above: Performed By: #### 4 [id number] #### [facility] [address] [place] [address] Dr. Jackelyn Celestin MONO # 0.9 103/ul Critically high 0.3-0.8 [facility] Comment on above: Performed By: #### 4 [id number] #### [facility] [address] [place] [address] Dr. Jackelyn Celestin Monocytes/100 WBC (Bld) 8.4 % Normal 1.7-12.0 [facility] Comment on above: Performed By: #### 4 [id number] #### [facility] [address] [place] [address] Dr. Jackelyn Celestin NEUT # 7.7 103/ul Critically high 1.4-6.5 [facility] Comment on above: Performed By: #### 4 [id number] #### [facility] [address] [place] [address] Dr. Jackelyn Celestin Neutrophils/100 WBC (Bld) 71.2 % Normal 43.0-75.0 [facility] Comment on above: Performed By: #### 4 [id number] #### [facility] [address] [place] [address] Dr. Jackelyn Celestin Platelet mean volume (Bld) [Entitic vol] 10.9 fL Normal 9.5-13.5 [facility] Comment on above: Performed By: #### 4 [id number] #### [facility] [address] [place] [address] Dr. Jackelyn Celestin PLT 170 103/ul Normal 150-450 [facility] Comment on above: Performed By: #### 4 [id number] #### [facility] [address] [place] [address] Dr. Jackelyn Celestni RBC 4.24 106/ul Normal 4.20-5.40 [facility] Comment on above: Performed By: #### 4 [id number] #### [facility] [address] [place] [address] Dr. Jackelyn Celestin WBC 10.8 103/ul Normal 4.0-11.0 [facility] Comment on above: Performed By: #### 4 [id number] #### [facility] [address] [place] [address] Dr. Jackelyn Celestin DRUG SCREEN RAPID (URINE)on 07-29-2022 AMP Negative Normal NEGATIVE [facility] Comment on above: Performed By: #### 4 [id number] #### [facility] [address] [place] [address] Dr. Jackelyn Celestin BAR Negative Normal NEGATIVE [facility] Comment on above: Performed By: #### 4 [id number] #### [facility] [address] [place] [address] Dr. Jackelyn Celestin BUP Negative Normal NEGATIVE [facility] Comment on above: Performed By: #### 4 [id number] #### [facility] [address] [place] [address] Dr. Jackelyn Celestin BZO Negative Normal NEGATIVE [facility] Comment on above: Performed By: #### 4 [id number] #### [facility] [address] [place] [address] Dr. Jackelyn Celestin HOMERO Negative Normal NEGATIVE [facility] Comment on above: Performed By: #### 4 [id number] #### [facility] [address] [place] [address] Dr. Jackelyn Celestin CUT-OFFS SEE BELOW Normal [facility] Comment on above: Result [...] Antidepressants): 300 ng/mL Performed By: #### 4 [id number] #### [facility] [address] [place] [address] Dr. Jackelyn Celestin DRUG CUT HEADER DRUG CLASS TEST SYST EM CUT-OFF CONCENTRATIONS ARE FOLLOWS: Normal [facility] Comment on above: Performed By: #### 4 [id number] #### [facility] [address] [place] [address] Dr. Jackelyn Celestin mAMP Negative Normal NEGATIVE [facility] Comment on above: Performed By: #### 4 [id number] #### [facility] [address] [place] [address] Dr. Jackelyn Celestin MTD Negative Normal NEGATIVE [facility] Comment on above: Performed By: #### 4 [id number] #### [facility] [address] [place] [address] Dr. Jackelyn Celestin OPI Negative Normal NEGATIVE [facility] Comment on above: Performed By: #### 4 [id number] #### [facility] [address] [place] [address] Dr. Jackelyn Celestin OXY Negative Normal NEGATIVE [facility] Comment on above: Performed By: #### 4 [id number] #### [facility] [address] [place] [address] Dr. Jackelyn Celestin PCP Negative Normal NEGATIVE [facility] Comment on above: Performed By: #### 4 [id number] #### [facility] [address] [place] [address] Dr. Jackelyn Celestin PPX Negative Normal NEGATIVE [facility] Comment on above: Performed By: #### 4 [id number] #### [facility] [address] [place] [address] Dr. Jackelyn Celestin TCA Negative Normal NEGATIVE [facility] Comment on above: Performed By: #### 4 [id number] #### [facility] [address] [place] [address] Dr. Jackelyn Celestin THC Negative Normal NEGATIVE [facility] Comment on above: Performed By: #### 4 [id number] #### [facility] [address] [place] [address] Dr. Jackelyn Celestin TYPE AND SCREENon 07-29-2022 TYPE AND SCREEN Negative Normal [facility] Comment on above: Performed By: #### G TT3P #### [facility] [address] [place] [address] Dr. Jackelyn Celestin US PREG GROWTHon 07-25-2022 [...] PAM HART Date: 2022-07-24 22:37 Normal [facility] GROUP B STREP CULTUREon 06-09 S. agalactiae Ag Ql (Unsp spec) Culture Observations: NEGATIVE FOR GROUP B STREPTOCOCCUS. Normal [facility] Comment on above: Performed By: #### G TT3P #### [facility] [address] [place] [address] Dr. Jackelyn Celestin US PREG GROWTHon 06-06-2022 [...] PAM HART Date: 2022-06-06 15:39 Normal [facility] GTT 3 HR PREGon 05-21-2022 Glucose [Mass/Vol] 91 mg/dL Normal 74-106 [facility] Comment on above: Performed By: #### G TT3P #### [facility] [address] [place] [address] Dr. Jackelyn Celestin Glucose [Mass/Vol] 168 mg/dL Normal [facility] Comment on above: Performed By: #### G TT3P #### [facility] [address] [place] [address] Dr. Jackelyn Celestin Glucose [Mass/Vol] 121 mg/dL Normal [facility] Comment on above: Performed By: #### G TT3P #### [facility] [address] [place] [address] Dr. Jackelyn Celestin Glucose [Mass/Vol] 86 mg/dL Normal [facility] Comment on above: Performed By: #### G TT3P #### [facility] [address] [place] [address] Dr. Jackelyn Celestin PAP ACOG PANEL 2: 21 to 29on 05-17-2022 . . Normal [facility] Comment on above: Performed By: #### 4 [id number] #### [facility] [address] [place] [address] Dr. Jackelyn Celestin DIAGNOSIS: Comment [facility] Comment on above: Result Comment: NEGA TIVE FOR INTRAEPITHELIAL LESION OR MALIGNANCY. Performed By: #### 4 [id number] #### [facility] [address] [place] [address] Dr. Jackelyn Celestin Methodology: Comment [facility] Comment on above: Result Comment: This liquid based ThinPrep(R) pap test was screened with the use of an image guided system. Performed By: #### 4 [id number] #### [facility] [address] [place] [address] Dr. Jackelyn Celestin Note: Comment [facility] Comment on above: Result Comment: The Pap smear is a screening test designed to aid in the detection of premalignant and malignant conditions of the uterine cervix. It is not a diagnostic procedure and should not be used as the sole means of detecting cervical cancer. Both false-positive and false-negative reports do occur. . Performed By: #### 4 [id number] #### [facility] [address] [place] [address] Dr. Jackelyn Celestin Performed by: Comment [facility] Comment on above: Result Comment: Alphonso Walker, Internal Grinding Machine Operator (ASCP) Performed By: #### 4 [id number] #### [facility] [address] [place] [address] Dr. Jackelyn Celestin Reflex Criteria: Comment [facility] Comment on above: Result Comment: The HPV DNA reflex criteria were not met with this specimen result therefore, no HPV testing was performed. . Performed By: #### 4 [id number] #### [facility] [address] [place] [address] Dr. Jackelyn Celestin Specimen adequacy: Comment [facility] Comment on above: Result Comment: Sati sfactory for evaluation. No endocervical component is identified. Performed By: #### 4 [id number] #### [facility] [address] [place] [address] Dr. Jackelyn Celestin Age Gdln ACOG Testing 21-29 Normal [facility] Comment on above: Performed By: #### 4 [id number] #### [facility] [address] [place] [address] Dr. Jackelyn Celestin CHLAMYDIA/GONOCOCCUS ALONDRA (SW AB/URINE/PAPon 05-14-2022 Chlamydia trachomatis, ALONDRA Negative Normal Negative [facility] Comment on above: Performed By: #### G TT3P #### [facility] [address] [place] [address] Dr. Jaceklyn Celestin Neisseria gonorrhoeae, ALONDRA Negative Normal Negative [facility] Comment on above: Performed By: #### G TT3P #### [facility] [address] [place] [address] Dr. Jackelyn Celestin VAGINITIS/VAGINOSIS DNA PROB Dean 05-13-2022 Thao species Negative Normal Negative [facility] Comment on above: Performed By: #### 4 [id number] #### [facility] [address] [place] [address] Dr. Jackelyn Celestin Gardnerella vaginalis Negative Normal Negative [facility] Comment on above: Performed By: #### 4 [id number] #### [facility] [address] [place] [address] Dr. Jackelyn Celestin Trichomonas vaginalis Negative Normal Negative [facility] Comment on above: Performed By: #### 4 [id number] #### [facility] [address] [place] [address] Dr. Jackelyn Celestin CBC AUTO DIFFon 05-09-2022 BASO # 0.0 103/ul Normal 0.0-0.1 [facility] Comment on above: Performed By: #### C BC #### [facility] [address] [place] [address] Dr. Jackelyn Celestin Basophils/100 WBC (Bld) 0.3 % Normal 0.2-2.0 [facility] Comment on above: Performed By: #### C BC #### [facility] [address] [place] [address] Dr. Jackelyn Celestin EO # 0.1 103/ul Normal 0.0-0.7 [facility] Comment on above: Performed By: #### C BC #### [facility] [address] [place] [address] Dr. Jackelyn Celestin Eosinophils/100 WBC (Bld) 1.2 % Normal 0.9-7.0 [facility] Comment on above: Performed By: #### C BC #### [facility] [address] [place] [address] Dr. Jackelyn Celestin Erythrocyte distribution width (RBC) [Ratio] 11.9 % Normal 11.0-15.0 [facility] Comment on above: Performed By: #### C BC #### [facility] [address] [place] [address] Dr. Jackelyn Celestin Hematocrit (Bld) [Volume fraction] 33.7 % Critically low 36.0-48.0 [facility] Comment on above: Performed By: #### C BC #### [facility] [address] [place] [address] Dr. Jackelyn Celestin Hemoglobin (Bld) [Mass/Vol] 12.0 g/dL Normal 12.0-16.0 [facility] Comment on above: Performed By: #### C BC #### [facility] [address] [place] [address] Dr. Jackelyn Celestin IG # 0.07 10e3/ul Critically high 0.00-0.03 [facility] Comment on above: Performed By: #### C BC #### [facility] [address] [place] [address] Dr. Jackelyn Celestin IG % 0.6 % Critically high 0.0-0.5 [facility] Comment on above: Performed By: #### C BC #### [facility] [address] [place] [address] Dr. Jackelyn Celestin LYMPH # 1.3 103/ul Normal 1.2-3.8 [facility] Comment on above: Performed By: #### C BC #### [facility] [address] [place] [address] Dr. Jackelyn Celestin Lymphocytes/100 WBC (Bld) 11.5 % Critically low 20.5-60.0 [facility] Comment on above: Performed By: #### C BC #### [facility] [address] [place] [address] Dr. Jackelyn Celestin MANUAL DIFF REQ NO Normal [facility] Comment on above: Performed By: #### C BC #### [facility] [address] [place] [address] Dr. Jackelyn Celestin MCH (RBC) [Entitic mass] 31.0 pg Normal 26.7-34.0 [facility] Comment on above: Performed By: #### C BC #### [facility] [address] [place] [address] Dr. Jackelyn Celestin MCHC (RBC) [Mass/Vol] 35.6 g/dL Critically high 29.9-35.2 [facility] Comment on above: Performed By: #### C BC #### [facility] [address] [place] [address] Dr. Jackelyn Celestin MCV (RBC) [Entitic vol] 87.1 fL Normal 81.0-99.0 [facility] Comment on above: Performed By: #### C BC #### [facility] [address] [place] [address] Dr. Jackelyn Celestin MONO # 0.5 103/ul Normal 0.3-0.8 [facility] Comment on above: Performed By: #### C BC #### [facility] [address] [place] [address] Dr. Jackelyn Celestin Monocytes/100 WBC (Bld) 4.8 % Normal 1.7-12.0 [facility] Comment on above: Performed By: #### C BC #### [facility] [address] [place] [address] Dr. Jackelyn Celestin NEUT # 8.9 103/ul Critically high 1.4-6.5 [facility] Comment on above: Performed By: #### C BC #### [facility] [address] [place] [address] Dr. Jackelyn Celestin Neutrophils/100 WBC (Bld) 81.6 % Critically high 43.0-75.0 [facility] Comment on above: Performed By: #### C BC #### [facility] [address] [place] [address] Dr. Jackelyn Celestin Platelet mean volume (Bld) [Entitic vol] 11.3 fL Normal 9.5-13.5 [facility] Comment on above: Performed By: #### C BC #### [facility] [address] [place] [address] Dr. Jackelyn Celestin PLT 171 103/ul Normal 150-450 [facility] Comment on above: Performed By: #### C BC #### [facility] [address] [place] [address] Dr. Jackelyn Celestin RBC 3.87 106/ul Critically low 4.20-5.40 [facility] Comment on above: Performed By: #### C BC #### [facility] [address] [place] [address] Dr. Jackelyn Celestin WBC 10.9 103/ul Normal 4.0-11.0 [facility] Comment on above: Performed By: #### C BC #### [facility] [address] [place] [address] Dr. Jackelyn Celestin GLUCOSE - 1HRon 05-09-2022 Glucose [Mass/Vol] 142 mg/dL Critically high 74-106 [facility] Comment on above: Performed By: #### 4 [id number] #### [facility] [address] [place] [address] Dr. Jackelyn Celestin US PREG BIOPHY W [...] PAM HART Date: 2022-05-09 10:35 Normal [facility] US PREG PLACENTAon 3 US PREG PLACENTA EXAMINATION: US PREG PLACENTA HISTORY: Falls ; mild cramping after falling COMPARISON: Ultrasound anatomy 03/17/2022 FINDINGS: PLACENTA: Posterior without previa, subchorionic hematoma, or abruption. CERVIX LENGTH: Not evaluated. HEART RATE: 158 bpm OTHER: None. IMPRESSION: 1. Unremarkable posterior placenta. No suspicious findings. Electronically authenticated by: PAM HART Date: 2022-05-09 10:29 Normal [facility] US PREG ANATOMY SINGLEon US PREG ANATOMY [...] by: PAM HART Date: 2022-03-17 16:29 Normal [facility] HEP B SURFACE ANTIGEN SCREEN on 02-15-2022 HBsAg Screen Negative Normal Negative [facility] Comment on above: Performed By: #### 4 [id number] #### [facility] [address] [place] [address] Dr. Jackelyn Celestin HEPATITIS C VIRUS AB W/ REFL EX QUANTon 02-15-2022 HCV AB <0.1 Normal 0.0-0.9 [facility] Comment on above: Performed By: #### H CVPCRR #### [facility] [address] [place] [address] Dr. Jackelyn Celestin Interpretation: Comment Normal [facility] Comment on above: Result Comment: Nega tive Not infected with HCV, unless recent infection is suspected or other evidence exists to indicate HCV infection. Performed By: #### H CVPCRR #### [facility] [address] [place] [address] Dr. Jackelyn Celestin HIV 1 AND 2 WITH REFLEXon HIV Screen 4th Generation wRfx Non-Reactive Normal Non Reactive [facility] Comment on above: Result Comment: HIV Negative HIV-1/HIV-2 antibodies and HIV-1 p24 antigen were NOT detected. There is no laboratory evidence of HIV infection. Performed By: #### H IV12 #### [facility] [address] [place] [address] Dr. Jackelyn Celestin RPR QUANTon 02-15-2022 Rapid Plasma Reagin, Quant Non-Reactive Normal NonRea<1:1 [facility] Comment on above: Result [...] utilized, such as Treponema pallidum (Syphilis) Screening [place] (196220) or Rapid Plasma Reagin (RPR) Test With Reflex to Quantitative RPR and Confirmatory Treponema pallidum Antibodies (836413). Performed By: #### R PRQ #### [facility] [address] [place] [address] Dr. Jackelyn Celestin RUBELLA AB IGGon 02-15-2022 Rubella Antibodies, IgG 1.97 index Normal Immune >0.99 [facility] Comment on above: Result Comment: Non- immune <0.90 Equivocal 0.90 - 0.99 Immune >0.99 Performed By: #### R UBIGG #### [facility] [address] [place] [address] Dr. Jackelyn Celestin CBC AUTO DIFFon 02-12-2022 BASO # 0.0 103/ul Normal 0.0-0.1 [facility] Comment on above: Performed By: #### C BC #### [facility] [address] [place] [address] Dr. Jackelyn Celestin Basophils/100 WBC (Bld) 0.4 % Normal 0.2-2.0 [facility] Comment on above: Performed By: #### C BC #### [facility] [address] [place] [address] Dr. Jackelyn Celestin EO # 0.2 103/ul Normal 0.0-0.7 [facility] Comment on above: Performed By: #### C BC #### [facility] [address] [place] [address] Dr. Jackelyn Celestin Eosinophils/100 WBC (Bld) 2.0 % Normal 0.9-7.0 [facility] Comment on above: Performed By: #### C BC #### [facility] [address] [place] [address] Dr. Jackelyn Celestin Erythrocyte distribution width (RBC) [Ratio] 12.8 % Normal 11.0-15.0 [facility] Comment on above: Performed By: #### C BC #### [facility] [address] [place] [address] Dr. Jackelyn Celestin Hematocrit (Bld) [Volume fraction] 40.7 % Normal 36.0-48.0 [facility] Comment on above: Performed By: #### C BC #### [facility] [address] [place] [address] Dr. Jackelyn Celestin Hemoglobin (Bld) [Mass/Vol] 14.4 g/dL Normal 12.0-16.0 [facility] Comment on above: Performed By: #### C BC #### [facility] [address] [place] [address] Dr. Jackelyn Celestin IG # 0.05 10e3/ul Critically high 0.00-0.03 [facility] Comment on above: Performed By: #### C BC #### [facility] [address] [place] [address] Dr. Jackelyn Celestin IG % 0.4 % Normal 0.0-0.5 [facility] Comment on above: Performed By: #### C BC #### [facility] [address] [place] [address] Dr. Jackelyn Celestin LYMPH # 1.7 103/ul Normal 1.2-3.8 [facility] Comment on above: Performed By: #### C BC #### [facility] [address] [place] [address] Dr. Jackelyn Celestin Lymphocytes/100 WBC (Bld) 15.1 % Critically low 20.5-60.0 [facility] Comment on above: Performed By: #### C BC #### [facility] [address] [place] [address] Dr. Jackelyn Celestin MANUAL DIFF REQ NO Normal [facility] Comment on above: Performed By: #### C BC #### [facility] [address] [place] [address] Dr. Jackelyn Celestin MCH (RBC) [Entitic mass] 31.2 pg Normal 26.7-34.0 [facility] Comment on above: Performed By: #### C BC #### [facility] [address] [place] [address] Dr. Jackelyn Celestin MCHC (RBC) [Mass/Vol] 35.4 g/dL Critically high 29.9-35.2 [facility] Comment on above: Performed By: #### C BC #### [facility] [address] [place] [address] Dr. Jackelyn Celestin MCV (RBC) [Entitic vol] 88.1 fL Normal 81.0-99.0 [facility] Comment on above: Performed By: #### C BC #### [facility] [address] [place] [address] Dr. Jackelyn Celestin MONO # 0.4 103/ul Normal 0.3-0.8 [facility] Comment on above: Performed By: #### C BC #### [facility] [address] [place] [address] Dr. Jackelyn Celestin Monocytes/100 WBC (Bld) 3.3 % Normal 1.7-12.0 [facility] Comment on above: Performed By: #### C BC #### [facility] [address] [place] [address] Dr. Jackelyn Celestin NEUT # 8.8 103/ul Critically high 1.4-6.5 [facility] Comment on above: Performed By: #### C BC #### [facility] [address] [place] [address] Dr. Jackelyn Celestin Neutrophils/100 WBC (Bld) 78.8 % Critically high 43.0-75.0 [facility] Comment on above: Performed By: #### C BC #### [facility] [address] [place] [address] Dr. Jackelyn Celestin Platelet mean volume (Bld) [Entitic vol] 11.6 fL Normal 9.5-13.5 [facility] Comment on above: Performed By: #### C BC #### [facility] [address] [place] [address] Dr. Jackelyn Celestin PLT 203 103/ul Normal 150-450 [facility] Comment on above: Performed By: #### C BC #### [facility] [address] [place] [address] Dr. Jackelyn Celestin RBC 4.62 106/ul Normal 4.20-5.40 [facility] Comment on above: Performed By: #### C BC #### [facility] [address] [place] [address] Dr. Jackelyn Celestin WBC 11.2 103/ul Critically high 4.0-11.0 [facility] Comment on above: Performed By: #### C BC #### [facility] [address] [place] [address] Dr. Jackelyn Celestin CULTURE URINEon 02-12-2022 CULTURE URINE Culture Observations : NO GROWTH. Normal [facility] Comment on above: Performed By: #### U RCX #### [facility] [address] [place] [address] Dr. Jackelyn Celestin GLYCOHEMOGLOBIN A1Con 2021 ADA RECOMMENDATION SEE BELOW Normal [facility] Comment on above: Result Comment: ADA RECOMMENDED LIMIT 4.0 - 6.0 ADA THERAPEUTIC TARGET < 7.0 ACTION SUGGESTED > 7.0 Performed By: #### 4 [id number] #### [facility] [address] [place] [address] Dr. Jackelyn Celestin Glucose [Mass/Vol] 94 mg/dL Normal [facility] Comment on above: Performed By: #### 4 [id number] #### [facility] [address] [place] [address] Dr. Jackelyn Celestin HbA1c (Bld) [Mass fraction] 4.9 % Normal 4.5-6.2 [facility] Comment on above: Performed By: #### 4 [id number] #### [facility] [address] [place] [address] Dr. Jackelyn Celestin TYPE AND SCREENon 02-12-2022 TYPE AND SCREEN Negative Normal [facility] Comment on above: Performed By: #### T NS #### [facility] [address] [place] [address] Dr. Jackelyn Celestin US PREG TVon 01-21-2022 [...] by: DONALD AGUILAR Date: 2022-01-21 16:41 Normal [facility] Coding Summary.on 12-12-2019 Coding Summary. CODING DATE: 020 FINAL [facility] DSCH STATUS: Home (Routine DC) PAYOR: Self Pay [...] CphT Date Saved: 12/12/2019 10:59 am Normal [facility] Family Medicine Office/Clini c Noteon 11-21-2019 [...] day(s), # 20 tab(s), Refills(s) 0, Pharmacy: [facility], 159, cm, 11/21/19 19:13:00 EDT, Height/Length Dosing, 96, kg, 11/21/19 19:13:00 EDT, Weight Dosing Follow-up No qualifying data available Patient Education Body Mass Index, BMI DASH Diet MyPlate from [employer] Obesity Otitis Media, Adult Problem List/Past Medical [...] cancer: Grandparent. Hypertension: Grandparent. Stroke: Grandparent. Normal [facility] Comment on above: Result Comment: Elec [...] Document Reviewed: 01/04/2006 ExitCare? Patient Information ?2013 [employer]. DASH Diet The DASH diet stands for [...] beef, chicken breast, turkey breast. All fish. [place], bake, or broil your meat. Nothing should [...] Document Reviewed: 03/15/2012 ExitCare? Patient Information ?2013 [employer]. [employer] The amount you need to eat from each food group depends on your age, sex, and level of physical activity. To find the amounts that are right for you, go to [employer]gov. Tips: ? Enjoy your food, but [...] Document Reviewed: 06/16/2008 ExitCare? Patient Information ?2013 [employer] [facility]. [facility] [place] Obesity Obesity is defined as having too [...] Document Reviewed: 05/02/2012 ExitCare? Patient Information ?2014 Birth[employer]. Otitis Media, Adult A middle ear infection [...] the first few days. ? Only take bhff-vpf-nllelab or prescription medicines for pain, discomfort, or [...] Document Reviewed: 10/31/2008 ExitCare? Patient Information ?2013 [employer] [facility]. Normal [facility] SARS-CoV-2, NAAon 11-20-2019 SARS CORONAVIRUS 2 RNA:PRTHR:PT:RESPIRATO RY:ORD:PROBE.AMP.TAR Not Detected Not Detected [facility] Comment on above: Result Comment: This test was developed and its performance characteristics determined by [employer]. This test has not been FDA cleared [...] detected) result in this assay. Performed at: [facility] [address] [facility] [place] [id number] MD Malaika Velez Performed By: #### S ARS-CoV-2, ALONDRA #### [facility] [address] [place] [address] Family Medicine Video Visit - Telehealthon 11-16-2019 [...] interactive video communications from my office using [employer] due to the restrictions of the COVID-19 pandemic. No physical exam was conducted other than those areas of the body visible to telecommunications with the patient located at [address] [phone], with no one else in attendance. If [...] cancer: Grandparent. Hypertension: Grandparent. Stroke: Grandparent. Normal [facility] Comment on above: Result Comment: Elec tronically Signed By: SEAN KIM, Abbey Hodges\.br\Date and Time Signed: 11/16/19 14:27 EDT URINE CULTUREon 07-10-2017 Urine culture, bacteria SPECIMEN DESCRIPTION URINE CLEAN CATCHUA DIPSTICK NITRITE NEGATIVE * Result Note: LEUKOCYTE NEGATIVE *CULTURE ESCHERICHIA COLI * Result Note: 50,000 C/C/ML * * Result Note: Testing performed at [place], [place] [address] *REPORT STATUS 07/10/2017 * Result Note: FINAL * O RGANISM ESCHERICHIA COLI * Result Note: ESCHERICHIA COLI *METHOD MICAMPICILLIN <=2 SUSCEPTIBLEAMPICILLIN/SULBA CTAM <=2 SUSCEPTIBLECEFTRIAXONE <=1 SUSCEPTIBLECEFAZOLIN <=4 SUSCEPTIBLEIMIPENEM <=0.25 SUSCEPTIBLEGENTAMICIN <=1 SUSCEPTIBLETRIMETH-SULFA <=20 SUSCEPTIBLEAMOXICILLIN/CLAV ULANIC A <=2 SUSCEPTIBLENITROFURANTOIN 32 SUSCEPTIBLEPIPERACILLIN/SADA OBACTAM <=4 SUSCEPTIBLELEVOFLOXACIN <=0.12 SUSCEPTIBLEESBL NEGATIVECEFTAZIDIME <=1 SUSCEPTIBLE Normal [facility] Comment on above: Performed By: #### A URNC ####Testing performed at [address] [address]Ndiqbcu performed at [address] [place] [address] BHCG,QUANTITATIVEon 07-08-19 18 BHCG,QUANTITATIVE 133.56 MIU/ML Normal [facility] Comment on above: Result Comment: CG INTERPRETIVE RANGES: NON FEMALE 0-6 MIU/MLMALE ADULT [...] #### A CBC, BHCG2 ####Testing performed at [address] [address] CBCon 07-07-2017 ABSOLUTE BAS 0.1 X10 Normal [facility] Comment on above: Performed By: #### A CBC, BHCG2 ####Testing performed at [address] [address] ABSOLUTE EOS 0.20 X10 Normal [facility] Comment on above: Performed By: #### A CBC BHCG2 ####Testing performed at [address] [address] Basophils/100 WBC Auto (Bld) 0.6 % Normal 0.0-2.0 [facility] Comment on above: Performed By: #### A CBC, BHCG2 ####Testing performed at [address] [place] [address] DTYPE AUTO DIFF Normal [facility] Comment on above: Performed By: #### A CBC, BHCG2 ####Testing performed at [address] [place] [address] Eosinophils/100 leukocytes 2.0 % Normal 0.0-11.0 [facility] Comment on above: Performed By: #### A CBC, BHCG2 ####Testing performed at [address] [place] [address] Lymphocytes 2.00 X10 Normal [facility] Comment on above: Performed By: #### A CBC, BHCG2 ####Testing performed at [address] [place] [address] Lymphocytes/100 leukocytes 23.0 % Normal 20.0-55.0 [facility] Comment on above: Performed By: #### A CBC, BHCG2 ####Testing performed at [address] [place] [address] Monocytes 0.6 X10 Normal [facility] Comment on above: Performed By: #### A CBC, BHCG2 ####Testing performed at [address] [place] [address] Monocytes/100 leukocytes 7.1 % Normal 0.0-10.0 [facility] Comment on above: Performed By: #### A CBC, BHCG2 ####Testing performed at [address] [place] [address] Neutrophils 5.9 x10 Normal 1.0-7.0 [facility] Comment on above: Performed By: #### A CBC, BHCG2 ####Testing performed at [address] [address] Neutrophils/100 leukocytes 67.3 % Normal 37.0-75.0 [facility] Comment on above: Performed By: #### A CBC, BHCG2 ####Testing performed at [address] [place] [address] Erythrocyte distribution width Auto Ratio (RBC) 12.1 % Normal 11.5-14.5 [facility] Comment on above: Performed By: #### A CBC, BHCG2 ####Testing performed at [address] [address] Erythrocytes (RBC) 4.72 /cmm Normal 4.0-5.4 [facility] Comment on above: Performed By: #### A CBC BHCG2 ####Testing performed at [address] [address] Hematocrit (HCT) 43.2 % Normal 36.0-48.0 [facility] Comment on above: Performed By: #### A CBC BHCG2 ####Testing performed at [address] [address] Hemoglobin mass conc (Bld) 15.1 g/dL Normal 12.0-16.0 [facility] Comment on above: Performed By: #### A CBC BHCG2 ####Testing performed at [address] [address] MCH 32.0 pg Normal 26.0-35.0 [facility] Comment on above: Performed By: #### A CBC BHCG2 ####Testing performed at [address] [address] MCHC mass conc (RBC) 35.0 g/dL Normal 27.0-37.0 [facility] Comment on above: Performed By: #### A CBC BHCG2 ####Testing performed at [address] [address] MCV 91.5 fL Normal 80.0-100.0 [facility] Comment on above: Performed By: #### A CBC BHCG2 ####Testing performed at [address] [address] Platelet mean volume (PMV) 9.2 fL Normal 7.4-11.0 [facility] Comment on above: Performed By: #### A CBC BHCG2 ####Testing performed at [address] [address] Platelets 235 /cmm Normal 130.0-400. 0 [facility] Comment on above: Performed By: #### A CBC BHCG2 ####Testing performed at [address] [address] WBC (Leukocytes) 8.8 /cmm Normal 3.6-11.0 [facility] Comment on above: Performed By: #### A CBC, BHCG2 ####Testing performed at [address] [address] ED NOTEon 07-07-2017 [facility] NOTES Normal [facility] ED PROVIDERon 07-07-2017 [facility] NOTES Normal [facility] URINE MACROSCOPICon 07-08-19 18 Bilirubin Ql (U) Negative Normal NEGATIVE [facility] Comment on above: Performed By: #### U MAC, UMIC ####Testing performed at [address] [address] URINE HEMOGLOBIN LARGE Abnormal NEGATIVE [facility] Comment on above: Performed By: #### U MAC, UMIC ####Testing performed at [address] [address] URINE KETONE Negative Normal NEGATIVE [facility] Comment on above: Performed By: #### U MAC, UMIC ####Testing performed at [address] [place] [address] URINE LEUKOTEST Negative Normal NEGATIVE [facility] Comment on above: Performed By: #### U MAC, UMIC ####Testing performed at [address] [address] URINE NITRATES Negative Normal NEGATIVE [facility] Comment on above: Performed By: #### U MAC, UMIC ####Testing performed at [address] [address] URINE SPEC GRAVITY 1.025 Normal 1.010-1.0 2 5 [facility] Comment on above: Performed By: #### U MAC, UMIC ####Testing performed at [address] [address] URINE TOTAL PROTEIN Negative Normal NEGATIVE [facility] Comment on above: Performed By: #### U MAC, UMIC ####Testing performed at [address] [place] [address] Urine, clarity CLEAR Normal CLEAR [facility] Comment on above: Performed By: #### U MAC, UMIC ####Testing performed at [address] [place] [address] Urine, color YELLOW Normal YELLOW [facility] Comment on above: Performed By: #### U MAC, UMIC ####Testing performed at [address] [place] [address] Urine, glucose presence Negative Normal NEGATIVE [facility] Comment on above: Performed By: #### U MAC, UMIC ####Testing performed at [address] [place] [address] Urine, pH 7.0 [pH] Normal 5.0-7.0 [facility] Comment on above: Performed By: #### U MAC, UMIC ####Testing performed at [address] [place] [address] Urine, urobilinogen 1.0 mg/dl Normal 0.2-1.0 [facility] Comment on above: Performed By: #### U MAC, UMIC ####Testing performed at [address] [address] URINE MICROSCOPICon 07-08-19 18 CRYSTAL OCCASIONAL Abnormal [facility] Comment on above: Result Comment: CHRIS PHOUS PHOSPHATES Performed By: #### U MAC, UMIC ####Testing performed at [address] [address] URINE COMMENT REFLEX CULTURE PER ESTABLISHED CRITERIA. Normal [facility] Comment on above: Performed By: #### U MAC, UMIC ####Testing performed at [address] [place] [address] URINE WBC'S 1 TO 5 Normal NEGATIVE [facility] Comment on above: Performed By: #### U MAC, UMIC ####Testing performed at [address] [place] [address] Urine, bacteria in sediment 1+ Abnormal NEGATIVE [facility] Comment on above: Performed By: #### U MAC, UMIC ####Testing performed at [address] [address] Urine, casts in sediment NONE Normal NONE [facility] Comment on above: Performed By: #### U MAC, UMIC ####Testing performed at [address] [address] Urine, epithelial cells in sediment 1 TO 5 Normal [facility] Comment on above: Performed By: #### U MAC, UMIC ####Testing performed at [address] [place] [address] Urine, erythrocytes 1 TO 5 Normal NEGATIVE [facility] Comment on above: Performed By: #### U MAC, UMIC ####Testing performed at [address] [address] Urine, mucus presence in sediment Negative Normal NEGATIVE [facility] Comment on above: Performed By: #### U MAC, UMIC ####Testing performed at [address] [address] BhCG Quanton 07-05-2017 HCG.beta subunit Qn 238.0 mIU/m Normal [facility] Comment on above: Result Comment: FEMA LE (NON-) & MALE <3 BORDERLINE 3 - 5 SUGGEST REPEAT TESTING FEMALE () 1 D - 1 WK 5 - 50 1 - 2 WK 50 - 500 2 - 3 WK 100 - 5000 3 - 4 WK 500 - 83748 4 - 5 WK 1000 - [address]12 5 - 6 WK [address] - 217806 6 - 8 W[place] [address] - 469448 2 - 3 [place] [address] - 900501 Performed By: #### 2 [id number] ####JIMMIE DanFdqIlfo[address] [place] [address] Auto Diffon 07-04-2017 Basophils Auto #/vol (Bld) 0.1 E3/mcL Normal 0.0-0.2 [facility] Comment on above: Order Comment: Order Added by Discern Expert. Performed By: #### 2 [id number] ####JIMMIE [address]jb[address] [place] [id number] Basophils/100 WBC Auto (Bld) 0.6 % Normal 0.0-2.0 [facility] Comment on above: Order Comment: Order Added by Discern Expert. Performed By: #### 2 [id number] ####JIMMIE DanCkcEwqt[address] [place] [id number] Eos Absolute 0.3 E3/mcL Normal 0.0-0.7 [facility] Comment on above: Order Comment: Order Added by Discern Expert. Performed By: #### 2 [id number] ####JIMMIE DanOscXbgx9952 [place] [address] Eosinophils/100 leukocytes 2.5 % Normal 0.0-11.0 [facility] Comment on above: Order Comment: Order Added by Discern Expert. Performed By: #### 2 643133 ####JIMMIE Ozunao[address] [place] [address] Lymphocytes 2.3 E3/mcL Normal 1.2-3.4 [facility] Comment on above: Order Comment: Order Added by Discern Expert. Performed By: #### 2 928239 ####JIMMIE [address] [place] [address] Lymphocytes/100 leukocytes 22.2 % Normal 20.0-55.0 [facility] Comment on above: Order Comment: Order Added by Discern Expert. Performed By: #### 2 [id number] ####JIMMIE [address] [place] [address] [place] Absolute 0.8 E3/mcL High 0.0-0.7 [facility] Comment on above: Order Comment: Order Added by Discern Expert. Performed By: #### 2 860570 ####JIMMIE [address] [place] [address] Monocytes/100 leukocytes 7.6 % Normal 0.0-10.0 [facility] Comment on above: Order Comment: Order Added by Discern Expert. Performed By: #### 2 [id number] ####JIMMIE [address] [place] [address] Neutro Absolute 6.9 E3/mcL High 1.4-6.5 [facility] Comment on above: Order Comment: Order Added by Discern Expert. Performed By: #### 2 364008 ####JIMMIE [address] [place] [address] Neutro Auto 67.1 % Normal 37.0-75.0 [facility] Comment on above: Order Comment: Order Added by Discern Expert. Performed By: #### 2 215009 ####JIMMIE [address] [place] [address] BMPon 07-04-2017 BUN/Creatinine Ratio 21.7 ratio Normal 5.4-30.0 [facility] Comment on above: Performed By: #### 2 381336 ####JIMMIE OaxVvlo7505 [place] [address] Creatinine 0.6 mg/dL Normal 0.6-1.3 [facility] Comment on above: Performed By: #### 2 107701 ####JIMMIE KjjJfly6203 [place] [address] Urea nitrogen 13 mg/dL Normal 7-18 [facility] Comment on above: Performed By: #### 2 677379 ####JIMMIE AxsKgtw3249 [place] [address] Calcium 8.4 mg/dL Normal 8.4-10.2 [facility] Comment on above: Performed By: #### 2 030301 ####JIMMIE GueNuby[address] [place] [address] Chloride 100 mmol/L Normal 98-107 [facility] Comment on above: Performed By: #### 2 634495 ####JIMMIE NujSvjc16[address] [place] [address] CO2 27.7 mmol/L Normal 24.0-30.0 [facility] Comment on above: Performed By: #### 2 440334 ####JIMMIE YisTsct2780 [place] [address] Glucose mass conc 98 mg/dL Normal 70-99 [facility] Comment on above: Performed By: #### 2 792551 ####JIMMIE FkgVoal2232 [place] [address] Potassium molar conc 3.4 mmol/L Low 3.5-5.1 [facility] Comment on above: Performed By: #### 2 904490 ####JIMMIE XicDdgb1344 [place] [address] Sodium 133 mmol/L Low 136-145 [facility] Comment on above: Performed By: #### 2 665779 ####JIMMIE HiaOljr0142 [place] [address] BhCG Quanton 07-04-2017 HCG.beta subunit Qn 190.8 mIU/m Normal [facility] Comment on above: Result Comment: FEMA LE (NON-) & MALE <3 BORDERLINE 3 - 5 SUGGEST REPEAT TESTING FEMALE () 1 D - 1 WK 5 - 50 1 - 2 WK 50 - 500 2 - 3 WK 100 - 5000 3 - 4 WK 500 - [address] 4 - 5 WK 1000 - [address] 5 - 6 WK [address] - 081441 6 - 8 WK [address] - 440752 2 - 3 [place] [address] - 479115 Performed By: #### 2 [id number] ####JIMMIE TnnJsao6[address] [place] [address] CBC w/ Auto Diffon Erythrocyte distribution width Auto Ratio (RBC) 11.6 % Normal 11.5-14.5 [facility] Comment on above: Performed By: #### 2 117629 ####JIMMIEJonathan DanKcqVows8729 [place] [address] Erythrocytes (RBC) 4.43 E6/mcL Normal 3.90-5.40 [facility] Comment on above: Performed By: #### 2 210553 ####JIMMIEJonathan DanXqkKskq9918 [place] [address] Hematocrit (HCT) 40.1 % Normal 36.0-48.0 [facility] Comment on above: Performed By: #### 2 419655 ####JIMMIEJonathan DanLswTgah2732 [place] [address] Hemoglobin mass conc (Bld) 14.1 g/dL Normal 12.0-16.0 [facility] Comment on above: Performed By: #### 2 311395 ####JIMMIEJonathan DanAqxRurz6201 [place] [address] MCH 31.7 pg High 27.0-31.0 [facility] Comment on above: Performed By: #### 2 481049 ####JIMMIEJonathan DanLayAtie6719 [place] [address] MCHC mass conc (RBC) 35.1 g/dL Normal 33.0-37.0 [facility] Comment on above: Performed By: #### 2 629806 ####JIMMIEJonathan DanKjvKriu9142 [place] [address] MCV 90.4 fL Normal 78.0-100.0 [facility] Comment on above: Performed By: #### 2 946371 ####JIMMIE MugFdej5146 [place] [address] Platelet mean volume (PMV) 8.4 fL Normal 7.4-11.0 [facility] Comment on above: Performed By: #### 2 657830 ####JIMMIE [address]ao[address] [place] [address] Platelets 232 E3/mcL Normal 130-400 [facility] Comment on above: Performed By: #### 2 903208 ####JIMMIE [address] [place] [address] WBC (Leukocytes) 10.3 E3/mcL Normal 3.6-11.0 [facility] Comment on above: Performed By: #### 2 057367 ####JIMMIE [address] [place] [address] Hep Func Panelon 07-04-2017 Alanine aminotransferase (ALT) 15 Int._Unit/L Normal 10-40 [facility] Comment on above: Performed By: #### 2 875243 ####JIMMIE BbhNhcf7920 [place] [address] Albumin 3.8 g/dL Normal 3.2-5.0 [facility] Comment on above: Performed By: #### 2 299246 ####JIMMIE CylEliz1455 [place] [address] Albumin/Globulin Ratio 1.4 {ratio} Normal 1.1-1.9 [facility] Comment on above: Performed By: #### 2 507705 ####JIMMIEJonathan GreshamSkfUxqw5889 [place] [address] Alk Phos 36 Int._Unit/L Low 42-121 [facility] Comment on above: Performed By: #### 2 697188 ####JIMMIEJonathan GreshamFafOsnx1187 [place] [address] Aspartate aminotransferase (AST) 18 Int._Unit/L Normal 10-42 [facility] Comment on above: Performed By: #### 2 965553 ####JIMMIEJonathan GreshamUduCpso3076 [place] [address] Bili Direct <.10 Normal .00-.20 [facility] Comment on above: Performed By: #### 2 720671 ####JIMMIE Gresham[address] [place] [address] Bili Indirect >0.7 Normal [facility] Comment on above: Result Comment: No e stablished ranges available for the Indirect Biliruben. Performed By: #### 2 994327 ####JIMMIE Gresham[address] [place] [address] Bili Total 0.8 mg/dL Normal 0.2-1.0 [facility] Comment on above: Performed By: #### 2 841005 ####[place] [address] Globulin 2.8 g/dL Normal 2.0-4.0 [facility] Comment on above: Performed By: #### 2 038437 ####[place] [address] Protein 6.6 g/dL Normal 6.4-8.3 [facility] Comment on above: Performed By: #### 2 282117 ####JIMMIE Gresham[address] [place] [address] Lipase Levelon 07-04-2017 Lipase Lvl 19 U/L Normal 8-57 [facility] Comment on above: Performed By: #### 2 [id number] ####JIMMIE YirLxsq7060 [place] [address] U BhCG Qlton 07-04-2017 HCG.beta subunit Qn Positive Normal Neg [facility] Comment on above: Performed By: #### 2 834135 ####JIMMIE Urinalysis Manual Iplutieguw4[address] [place] [address] UA Completeon 07-04-2017 UA Blood 3+ Normal Negative [facility] Comment on above: Performed By: #### 8 [id number] ####JIMMIE Urinalysis Automated Cjvgwxwdyy3096 [place] [address] UA Bacteria Trace Abnormal None [facility] Comment on above: Performed By: #### 8 [id number] ####JIMMIE Urinalysis Automated Rkseiwjdaq8258 [place] [address] UA Clarity SltCloudy Abnormal Clear [facility] Comment on above: Performed By: #### 8 [id number] ####JIMMIE Urinalysis Automated Vurleolgfs4463 [place] [address] UA Leuk Est Trace Normal Negative [facility] Comment on above: Performed By: #### 8 [id number] ####JIMMIE Urinalysis Automated Sxwjukwjcx6629 [place] [address] UA Mucous Occasional Abnormal Trace [facility] Comment on above: Performed By: #### 8 [id number] ####JIMMIE Urinalysis Automated [address] [place] [address] UA Nitrite Negative Normal Negative [facility] Comment on above: Performed By: #### 8 [id number] ####JIMMIE Urinalysis Automated [address] [place] [address] UA pH 5.0 Normal 4.6-8.0 [facility] Comment on above: Performed By: #### 8 [id number] ####JIMMIE Urinalysis Automated [address] [place] [address] UA Protein Negative Normal Negative [facility] Comment on above: Performed By: #### 8 [id number] ####JIMMIE Urinalysis Automated [address] [place] [address] UA Spec Grav 1.027 Normal 1.003-1.03 0 [facility] Comment on above: Performed By: #### 8 [id number] ####JIMMIE Urinalysis Automated [address] [place] [address] UA Squam Epithelial 0-5 Normal 0-5 [facility] Comment on above: Performed By: #### 8 [id number] ####JIMMIE Urinalysis Automated [address] [place] [address] UA Urobilinogen Negative Normal [facility] Comment on above: Performed By: #### 8 [id number] ####JIMMIE Urinalysis Automated [address] [place] [address] UA WBC 10-20 Abnormal 0-5 [facility] Comment on above: Performed By: #### 8 [id number] ####JIMMIE Urinalysis Automated [address] [place] [address] Urine, color Yellow Normal Yellow [facility] Comment on above: Performed By: #### 8 [id number] ####JIMMIE Urinalysis Automated Qdfhzvjmyz0735 [place] [address] Urine, erythrocytes 5-10 Abnormal 0-3 [facility] Comment on above: Performed By: #### 8 [id number] ####JIMMIE Urinalysis Automated Gbfbudqgvp0291 [place] [address] Urine, glucose Negative Normal Negative [facility] Comment on above: Performed By: #### 8 [id number] ####JIMMIE Urinalysis Automated Zjeukgcztm8917 [place] [address] Urine, ketones presence Negative Normal Negative [facility] Comment on above: Performed By: #### 8 [id number] ####JIMMIE Urinalysis Automated Flmnprfjwg4186 [place] [address] Urine, urobilinogen Negative Normal Negative [facility] Comment on above: Performed By: #### 8 [id number] ####JIMMIE Urinalysis Automated Uajpogkgja0087 [place] [address] eGFRon 07-04-2017 eGFR (non-black) mL/min/{1.73_m2} Normal [facility] Comment on above: Order Comment: Order added by Discern Expert. Performed By: #### 1 [id number] ####JIMMIE GdyUzzb0973 [place] [id number] Vital Signs Date Time Vital Sign Value Performing Clinician Facility 12-16-2024 14:50-0400 Body mass index (BMI) [Ratio] 43 kg/m2 [employer] Work Phone: [facility] 12-16-2024 14:50-0400 Body weight 110.11 kg Fletcher Morteza DO Work Phone: [facility] 12-16-2024 14:50-0400 Diastolic blood pressure 82 mm[Hg] Fletcher Morteza DO Work Phone: [facility] 12-16-2024 14:50-0400 Systolic blood pressure 130 mm[Hg] Fletcher Morteza DO Work Phone: [facility] 11-19-2024 14:43-0400 Body mass index (BMI) [Ratio] 43.72 kg/m2 Fletcher Morteza DO Work Phone: [facility] 11-19-2024 14:43-0400 Body weight 111.95 kg Fletcher Morteza DO Work Phone: [facility] 11-19-2024 14:43-0400 Diastolic blood pressure 84 mm[Hg] Fletcher Morteza DO Work Phone: [facility] 11-19-2024 14:43-0400 Systolic blood pressure 128 mm[Hg] Fletcher Morteza DO Work Phone: [facility] 10-22-2024 13:20-0400 Body mass index (BMI) [Ratio] 43.65 kg/m2 Fletcher Morteza DO Work Phone: [facility] 10-22-2024 13:20-0400 Body weight 111.77 kg Fletcher Morteza DO Work Phone: [facility] 10-22-2024 13:20-0400 Diastolic blood pressure 82 mm[Hg] Fletcher Morteza DO Work Phone: [facility] 10-22-2024 13:20-0400 Systolic blood pressure 120 mm[Hg] Fletcher Morteza DO Work Phone: [facility] 12-04-2023 18:07-0400 Body mass index (BMI) [Ratio] 37.2 kg/m2 Rainer Romero DO Work Phone: [facility] 12-04-2023 18:07-0400 Body temperature 98.71 [degF] Rainer Odonnelllaura DO Work Phone: [facility] 12-04-2023 18:07-0400 Body weight 95.25 kg Rainer Teslaura DO Work Phone: [facility] 12-04-2023 18:07-0400 Diastolic blood pressure 88 mm[Hg] Rainer Bellelaura DO Work Phone: [facility] 12-04-2023 18:07-0400 Heart rate 88 /min Rainer Bellelaura DO Work Phone: [facility] 12-04-2023 18:07-0400 SaO2% (BldA) [Mass fraction] 98 % Rainer Romero DO Work Phone: [facility] 12-04-2023 18:07-0400 Systolic blood pressure 120 mm[Hg] Rainer Romero DO Work Phone: [facility] 04-20-2023 14:07-0500 Diastolic blood pressure 75 mm[Hg] [facility] [address] [place] [address] 04-20-2023 14:07-0500 Heart rate 93 /min [facility] [address] [place] [address] 04-20-2023 14:07-0500 Respiratory rate 18 /min [facility] [address] [place] [address] 04-20-2023 14:07-0500 SaO2% (BldA) [Mass fraction] 99 % [facility] [address] [place] [address] 04-20-2023 14:07-0500 Systolic blood pressure 127 mm[Hg] [facility] [address] [place] [address] 04-20-2023 14:06-0500 Body height 160 cm [facility] [address] [place] [address] 04-20-2023 14:06-0500 Body mass index (BMI) [Ratio] 37.22 kg/m2 [facility] [address] [place] [address] 04-20-2023 14:06-0500 Body temperature 97.7 [degF] [facility] [address] [place] [address] 04-20-2023 14:06-0500 Body weight 95.3 kg [facility] [address] [place] [address] 03-10-2023 23:05-0500 Diastolic blood pressure 80 mm[Hg] Supriya Erickz Work Phone: [facility] 03-10-2023 23:05-0500 Heart rate 100 /min Supriya Aichholz Work Phone: [facility] 03-10-2023 23:05-0500 Respiratory rate 20 /min Supriya Aichholz Work Phone: [facility] 03-10-2023 23:05-0500 SaO2% (BldA) [Mass fraction] 98 % Supriya Aichholz Work Phone: [facility] 03-10-2023 23:05-0500 Systolic blood pressure 137 mm[Hg] Supriya Cerrato Work Phone: [facility] 03-10-2023 17:38-0500 Body temperature 97.9 [degF] Supriya Cerrato Work Phone: [facility] 03-10-2023 17:32-0500 Body height 160.02 cm Supriya Cerrato Work Phone: [facility] 03-10-2023 17:32-0500 Body weight 95 kg Supriya Cerrato Work Phone: [facility] Encounters Encounter Date Encounter Type Care Provider Facility Start: 12-16-2024 End: 12-16-2024 ambulatory FLETCHER MORTEZA Not Available Start: 12-16-2024 End: 12-16-2024 Office outpatient visit 15 minutes Fletcher Morteza DO Work Phone: [facility] [facility] Comment on above: Pre-op examination; HGSIL (high grade squamous intraepithelial lesion) on Pap smear of cervix Start: 12-16-2024 End: 12-16-2024 Preprocedural examination done Fletcher Morteza DO Work Phone: [facility] Start: 11-19-2024 End: 11-19-2024 Departed Referred Fletcher Morteza -LAB [facility] Start: 11-19-2024 End: 11-19-2024 Patient encounter procedure Fletcher Morteza DO Work Phone: [facility] [place] [facility] Comment on above: HGSIL (high grade sq uamous intraepithelial lesion) on Pap smear of cervix; Weight gain; Insulin resistance Start: 11-19-2024 End: 11-19-2024 ambulatory Fletcher Morteza [facility] Work Phone: Start: 11-06-2024 End: 11-06-2024 ambulatory [...] minutes Rainer Romero DO Work Phone: [facility] Comment on above: Allergic conjunctivi tis of both eyes (Primary Dx) Start: 12-04-2023 End: 12-04-2023 Bamboo flowsheet Rainer Romero DO Work Phone: [facility] Start: 12-04-2023 End: 12-04-2023 Bamboo flowsheet Rainer Romero DO Work Phone: [facility] Start: 05-22-2023 End: 05-22-2023 ambulatory GERSON AVALOS [facility] Start: 05-22-2023 End: 05-22-2023 Postop follow up visit related to original px Gerson Avalos MD Work Phone: [facility] Comment on above: Status post laparosc opic cholecystectomy (Primary Dx) Start: 05-18-2023 Clinisync Result Encounter Cor ey Morteza DO Work Phone: [facility] External Department Unsolicited Start: 05-18-2023 Clinisync Result Encounter Cor ey Morteza DO Work Phone: [facility] Unsolicited Start: 05-16-2023 Chart abstracting Fletcher Mendozao DO Work Phone: [facility] Start: 05-04-2023 End: 05-04-2023 Evaluation and management of inpatient SUKI Sarah [facility] Start: 05-04-2023 End: 05-04-2023 Evaluation and management of inpatient [facility] Start: 04-20-2023 End: 04-20-2023 ambulatory [facility] Start: 04-20-2023 End: 04-20-2023 Patient encounter procedure [facility] Start: 03-30-2023 End: 03-30-2023 ambulatory [facility] Start: 03-10-2023 End: 03-10-2023 Emergency department patient visit Supriya Cerrato Work Phone: [facility] Work Phone: Start: 07-29-2022 End: 07-30-2022 [...] End: 05-10-[address] FLETCHER PRO . Facility: Start: 03-17-2022 End: 03-18-2022 ambulatory STEFAN STATON . Facility: Start: 02-12-2022 End: 02-13-[address] FLETCHER PRO . Facility: Start: 02-11-[address] FLETCHER PRO . Facili ty:[facility] Start: 01-21-2022 End: 01-22-[address] FLETCHER PRO . Facility: Start: 07-07-2017 End: 07-07-2017 Emergency department patient visit [facility] Start: 07-05-2017 End: 07-06-2017 Ambulatory [facility] Facility:[facility] Start: 07-04-2017 End: 07-04-2017 Emergency department patient visit [facility] Facility:[facility] Procedures Date Procedure Procedure Detail Performing Clinician Start: 11-19-2024 COLPOSCOPY Fletcher Morteza DO Work Phone: Start: 11-19-2024 Urine test [...] Td or Tdap) [facility] Start: 01-08-2025 End: 01-08-2025 Patient encounter procedure 01/08/2025 9:20 AM EDT Office Visit K[facility]YN [address] [place] [address] Joselin Cosby, DIRECTOR OF COUNTERINTELLIGENCE [address] [place] [phone] [facility] Start: 12-16-2024 End: 12-16-2024 Patient encounter procedure 12/16/2024 2:20 PM EDT Consult KENNA MAN [address] [place] [phone] Fletcher Pro, DO [address] [place], [place] [address] [facility] [facility] Start: 11-19-2024 End: 11-19-2024 Patient encounter procedure 11/19/2024 9:10 AM EDT Office Visit [facility] [address] [place] [phone] Fletcher Pro, DO [address] [place] [address] [facility] Start: 11-06-2024 End: 11-06-2024 Professional / ancillary services management 11/06/2024 9:00 AM EDT Ancillary Procedure [facility] [address] [place] [phone] [facility] Start: 10-22-2024 End: 10-22-2025 DHEA DHEA Lab Routine PCOS (polycystic ovarian syndrome) Menorrhagia with regular cycle Expected: 10/22/2024 (Approximate), Expires: 10/22/2025 [facility] Comment on above: Expected: 10/22/2024 (Approximate), Expires: 10/22/2025 Start: 10-22-2024 End: 10-22-2025 US Pelvis US Pelvis w/ TV Imaging Routine PCOS (polycystic ovarian syndrome) Menorrhagia with regular cycle Expected: 10/22/2024, Expires: 10/22/2025 [facility] Comment on above: Expected: 10/22/2024 , Expires: 10/22/2025 Start: 06-13-2024 End: 06-13-2024 Patient encounter procedure 06/13/2024 9:00 AM EST Office Visit [facility] [address] [place] [address] Fletcher Pro, DO [address] [place] [address] [facility] Start: 05-04-2024 Adult BMI Screening Adult BMI Screen ing [facility] Start: 05-04-2024 Tobacco Screening Tobacco Screening [facility] Start: 04-20-2024 Adult BMI Screening Adult BMI Screen ing [facility] Start: 04-20-2024 Tobacco Screening Tobacco Screening [facility] Start: 06-05-2023 End: 06-05-2023 Patient encounter procedure 06/05/2023 9:50 AM EST Routine [facility] [address] [place] [address] Fletcher Pro, DO [address] [place] [address] [facility] Start: 05-04-2023 End: 05-04-2023 Admission to same day surgery center 05/04/2023 7:30 AM EST - 05/04/2023 9:30 AM EST Surgery [facility] - Surgery [address] [place] [address]. [place] [phone] Gerson Avalos MD [address] [place] [address] DAVINCI CHOLECYSTECTOMY [facility] Comment on above: DAVINCI CHOLECYSTECT ANDREA Start: 05-04-2023 End: 05-04-2023 DAVINCI CHOLECYSTECTOMY DAVINCI CHOLECYSTECTOMY CHOLELITHIASIS 05/04/2023 7:30 AM EST [facility] Start: 05-04-2023 End: 05-04-2023 DAVINCI CHOLECYSTECTOMY CHOLANGIOGRAM DAVINCI CHOLECYSTECTOMY CHOLANGIOGRAM CHOLELITHIASIS 05/04/2023 7:30 AM EST [facility] Start: 05-04-2023 Subsequent hospital visit by physician 05/04/2023 7:30 AM EST Hospital Encounter [facility] Surgery [address] [place] [phone] Gerson Avalos MD [address] [place] [address] [facility] Start: 03-10-2023 US Gallbladder [facility] Start: 03-10-2023 US scan of gallbladder US gall bladd er [facility] Start: 03-10-2023 Bacteria identified in Urine by Culture [facility] Start: 12-09-2022 Influenza vaccination Influenza Vacc ine [facility] Start: 2019 Screening for malign ant neoplasm of cervix Pap Smear [facility] Start: 2016 Adult BMI Follow Up Plan Adult BMI F ollow Up Plan [facility] Start: 2010 Depression Screening Depression Scre ening [facility] CBC W Auto Different ial panel - Blood CBC and differential Lab Routine PCOS (polycystic ovarian syndrome) Menorrhagia with regular cycle Ordered: 10/22/2024 [facility] Comment on above: Ordered: 10/22/2024 Cytology Cervical or vaginal smear or scraping study Pap Smear Pathology and Cytology Routine Well woman exam with routine gynecological exam Ordered: 10/22/2024 [facility] Work Phone: Comment on above: Ordered: 10/22/2024 DHEA-sulfate DHEA-sulfate Lab Routine PCOS (polycystic ovarian syndrome) Menorrhagia with regular cycle Ordered: 10/22/2024 [facility] Comment on above: Ordered: 10/22/2024 Follicle stimulating hormone Follicle stimulating hormone Lab Routine PCOS (polycystic ovarian syndrome) Menorrhagia with regular cycle Ordered: 10/22/2024 [facility] Comment on above: Ordered: 10/22/2024 hCG, quantitative, hCG, quantitative, Lab Routine PCOS (polycystic ovarian syndrome) Menorrhagia with regular cycle Ordered: 10/22/2024 [facility] Comment on above: Ordered: 10/22/2024 Hemoglobin A1c/Hemoglobin.total in Blood Hemoglobin A1c Lab Routine Menorrhagia with regular cycle Ordered: 10/22/2024 [facility] Comment on above: Ordered: 10/22/2024 Luteinizing hormone Luteinizing hormone Lab Routine PCOS (polycystic ovarian syndrome) Menorrhagia with regular cycle Ordered: 10/22/2024 [facility] Comment on above: Ordered: 10/22/2024 Patient Education - Th e Second Month Nausea and Vomiting, Adult ED Gallstones ED [facility] Work Phone: Patient referral [facility] Work Phone: Thyrotropin [Units/volume] in Serum or Plasma TSH Lab Routine PCOS (polycystic ovarian syndrome) Menorrhagia with regular cycle Ordered: 10/22/2024 [facility] Comment on above: Ordered: 10/22/2024 Thyroxine (T4) free [Mass/volume] in Serum or Plasma T4, free Lab Routine PCOS (polycystic ovarian syndrome) Menorrhagia with regular cycle Ordered: 10/22/2024 [facility] Comment on above: Ordered: 10/22/2024 Payers Date Payer Category Payer Medicaid (Managed Care) [facility] [id number] 2022 Private Health Insurance [id number] 2022 Private Health Insurance [id number] 2022 Unknown [id number] 2017 Unknown 1998 Unknown [id number] 2.16.840.1.048806.3.579.2. 593 1998 Unknown [id number] 2.16.840.1.705609.3.579.2. 593 1998 Unknown [id number] 2.16.840.1.485756.3.579.2. 593 1998 Unknown [id number] 2.16.840.1.055587.3.579.2. 593 1998 Unknown [id number] 2.16.840.1.114308.3.579.2. 593 1998 Unknown [id number] 2.16.840.1.446331.3.579.2. 593 1998 Unknown [id number] 2.16.840.1.108062.3.579.2. 593 1998 Unknown [id number] 2.16.840.1.414792.3.579.2. 593 1998 Unknown [id number] 2.16.840.1.834959.3.579.2. 593 1998 Unknown [id number] 2.16.840.1.502093.3.579.2. 593 1998 Unknown [id number] 2.16.840.1.196810.3.579.2. 593 1998 Unknown [id number] 2.16.840.1.223454.3.579.2. 593 1998 Unknown [id number] 2.16.840.1.925166.3.579.2. 593 1998 Unknown [id number] 2.16.840.1.952255.3.579.2. 1286 1998 Unknown [id number] 2.16.840.1.886633.3.579.2. 1286 1998 Unknown [id number] 2.16.840.1.638337.3.579.2. 1286 1998 Unknown [id number] 2.16.840.1.249534.3.579.2. 1286 1998 Unknown [id number] 2.16.840.1.561074.3.579.2. 1286 1998 Unknown [id number] 2.16.840.1.227014.3.579.2. 1286 1998 Unknown [id number] 2.16.840.1.082223.3.579.2. 1259 1998 Unknown [id number] 2.16.840.1.465372.3.579.2. 1259 1998 Unknown [id number] 2.16.840.1.236954.3.579.2. 1259 1998 Unknown [id number] 2.16.840.1.659149.3.579.2. 1259 1959 Private Health Insurance [id number] 1959 Self-pay 1959 Unknown [id number] 1959 Unknown [id number] Unknown Regular Insurance [id number] Unknown [id number] 2.16.840.1.241362.3.579.2. 531 Social History Date Type Detail Facility Start: 03-10-2023 End: 05-16-2023 Tobacco smoking status CTIS Never smoked tobacco (finding) [facility] Start: 2000 Sex Assigned At Female F [facility] Start: 03-30-2023 End: 05-16-2023 Tobacco use and exposure Smokeless tobacco non-user [facility] Start: 05-16-2023 End: 10-22-2024 Alcohol intake Lifetime non-drinker (finding) [facility] Start: 05-16-2023 End: 12-04-2023 History of Social function [facility] Start: 05-16-2023 End: 12-04-2023 Tobacco use panel [facility] Start: 02-10-2023 [facility] Start: 2000 Sex Assigned At Not on file P [facility] Start: 04-20-2023 End: 05-04-2023 Alcohol intake Ex-drinker (finding) [facility] Housing Instability Unknown [facility] Sex Female (finding) [facility] Clinical Notes 04-20-2023 to 12-16-2024 Trish Britt - 12/16/2024 2:20 PM Soraida Sandhu LPN - 11/19/2024 2:30 PM Soraida Sandhu, MARTINA - 10/22/2024 1:00 PM EDTAntangel Romero DO - 12/04/2023 6:00 PM EDTPatient Instructions Note Date & Type Note Facility 12-16-2024 History of Presen t illness Narrative Reason for Appointment: Patient ID: Edison Ashley is a 24 y.o. female who presents for Pre-op Visit Patient presents today for Pre Op appointment. Patient is scheduled to undergo LEEP on 01-01-[address] Pro at [facility]. MEDICATIONS Current Outpatient Medications Medication Instructions metFORMIN (GLUCOPHAGE) 500 mg, Oral, Daily with breakfast ALLERGIES No Known Allergies PROBLEMS Active Ambulatory [...] Negative. Endocrine: Negative. Allergic/Immunologic: Negative. OBJECTIVE Objective: OBGyn Exam Vitals: Estimated body mass index is 43 kg/m as calculated from the following: Height as of 03/07/23: 5' 3 . Weight as of this encounter: 242 lb 12 oz. BP: 130/82 Patient's last menstrual period was 10/30/2024. ASSESSMENT & PLAN ICD-10-CM 1. Pre-op examination Z01.818 2. HGSIL (high grade squamous intraepithelial lesion) on Pap smear of cervix R87.613 Pre Op: Patient is doing well but has complaints of HGSIL. I have discussed conservative management vs. surgical management with the patient in detail and patient desires surgical management at this time. Patient will undergo LEEP on 01-01-25. Surgical consents were signed, mmc was reviewed, and patient is to proceed to [facility] OR. Follow Up: Patient is to follow up between 1-2 weeks post operative to assess proper healing and recovery from procedure. Documented by Clara Lanza LPN on behalf of: Fletcher Pro DO documented in this encounter [facility] 11-19-2024 History of Presen t illness Narrative [...] nursing note reviewed. Exam conducted with a silk trimmer present. Vitals: Estimated body mass index is [...] Fletcher Pro DO documented in this encounter [facility] 10-22-2024 History of Presen t illness [...] nursing note reviewed. Exam conducted with a silk trimmer present. Vitals: Estimated body mass index is [...] them. Patient can also view results via [employer]. I reinforced importance of condom use for [...] exam unless needed otherwise. Documented by Nataliia Sanhdu LPN on behalf of: Fletcher Pro DO documented in this encounter [facility] 12-04-2023 History of Presen t illness [...] Allergic conjunctivitis of both eyes -Advised of arhu-aek-smonhqv Pataday eyedrops and Zyrtec 10 mg b.I.d. [...] persist or worsen documented in this encounter [facility] 05-22-2023 History of Presen t illness [...] up: As needed documented in this encounter [facility] 04-20-2023 Instructions Terri Estrada RN - 04/20/2023 1:45 PM EST Your surgery/procedure is scheduled at [facility] on 05/04/23 at 0730 Arrival Time 0530 [facility] Address: [address] [place] [address]. [place] [address] [address] in [address] on [facility]. Report to the Entrance B. Check in at the information desk the surgery. The waiting room located on the second floor. If you have any questions prior to surgery, please call Pre-Admission Clinic at [phone] between 7:30 am and 4:30 pm Monday through Monday. If you have questions the morning of surgery, please call the Pre-op Department at [phone]. PLEASE FOLLOW THESE INSTRUCTIONS OR YOUR SURGERY [...] would like to schedule therapy at a [facility] facility, please call [phone] ([phone]). Do not use lotions, creams, powders, perfume, [...] RIGHTS AND RESPONSIBILITIES As a patient at [facility], you have the right to: Receive medical care and be informed of who is taking care of you Be treated with dignity and respect Have a family member/customer service representative teller of choice and your physician notified of your admission Receive information and actively participate in decisions about your care and treatment Refuse care, treatment and services Decide who may provide your support and speak for you Access anglican and spiritual services Participate in ethical issues [...] hospital charges and payment methods Patient/patient customer service representative teller responsibilities are to: Provide information about health [...] in clean clothes. documented in this encounter [facility] 04-20-2023 Miscellaneous Notes Appt reminder call done-message left documented in this encounter [facility] 04-20-2023 Nurse Note Appt reminder call done-message left [facility] Evaluation note No assessment inform ation available [facility] Work Phone: Evaluation note Diagnosis Allergic conjunctivitis of both eyes- Primary Other chronic allergic conjunctivitis documented in this encounter [facility] Healthcare[facility]* Diagnosis Status post laparoscopic cholecystectomy- Primary Other postprocedural status [facility] Diagnosis Well woman exam with routine gynecological exam Routine gynecological examination UTI symptoms PCOS (polycystic ovarian syndrome) Polycystic ovaries Menorrhagia with regular cycle documented in this encounter [facility] HealthcareEvaluation note* Diagnosis HGSIL (high grade squamous intraepithelial lesion) on Pap smear of cervix Weight gain Other symptoms concerning nutrition, metabolism, and development Insulin resistance Other abnormal glucose documented in this encounter [facility] HealthcareEvaluation note* Diagnosis Pre-op examination HGSIL (high grade squamous intraepithelial lesion) on Pap smear of cervix [facility] Additional Instructions Return if symptoms are worse Continue your Zofran and Reglan at home and will add Phenergan for vomiting [facility]: Instructions* Attachments The following attachments cannot be sent through Care Everywhere. * Cholecystectomy Discharge Instructions (Tajik) [facility] for [facility] (narrative)No reason for referral information [facility] Work Phone: Summary Purpose Family History [...] section and content) DATE CREATED AUTHOR 09/28/2017 [facility] DATE CREATED AUTHOR AUTHOR'S ORGANIZ ATION 09/29/[address] [facility] DATE CREATED AUTHOR AUTHOR'S ORGANIZ ATION 04/16/[address] [facility] DATE CREATED AUTHOR AUTHOR'S ORGANIZ ATION 08/24/2022 [facility] DATE CREATED AUTHOR AUTHOR'S ORGANIZ ATION 05/24/2023 [facility] DATE CREATED AUTHOR AUTHOR'S ORGANIZ ATION 11/21/2024 [facility] DATE CREATED AUTHOR AUTHOR'S ORGANIZ ATION 12/18/[address] [facility] EPIC Care Teams (unrecognized sec tion and content) Team Status: Active Member Role Status Dates Supriya Cerrato Primary Care Provider Active Team Status: Inactive Member Role Status Dates Supriya Cerrato Primary Care Provider Active Jacky Alarcon MD Emergency Provider Active [employer] Relationship Specialty Start Date End Date Supriya Cerrato APRN-TRAVELING REPAIR ACCOUNTANT [address] [place] [id number] PCP - General Nurse Practitioner 03/30/23 [employer] Relationship Specialty Start Date End Date Supriya Cerrato APRN-TRAVELING REPAIR ACCOUNTANT [address] [place] [id number] PCP - General Nurse Practitioner 03/30/23 Team [...] Comments Well Women Visit Reason Comments Colposcopy Reason Comments Pre-op Visit FOR RECORDS PERTAINING TO PATIENTS WHO ARE [...] BE BASED ON THE PRIMARY CLINICAL RECORDS. [facility] [employer] [facility]. provides no warranty or guarantee of the accuracy or completeness of information in this document.
[2025-01-01 07:59] VITALS: BP 139/82; PULSE 97; TEMP 36.3; O2SAT 99; BMI 43.3
[2025-01-01 07:59] LABS: Hematocrit 42.1 % (36.0-48.0); Hemoglobin 14.7 g/dL (12.0-16.0); Immature Granulocytes Abs Auto 0.02 10^3/uL (0.00-0.03); Immature Granulocytes Pct Auto 0.2 % (0.0-0.5); Lymphocytes Absolute Auto 2.5 10^3/uL (1.2-3.8); Mean Corpuscular HGB Conc 34.9 g/dL (29.9-35.2); Mean Corpuscular Hemoglobin 30.5 pg (26.7-34.0); Mean Corpuscular Volume 87.3 fL (81.0-99.0); Platelet Count 218 10^3/uL (150-450); Red Blood Count 4.82 10^6/uL (4.20-5.40); White Blood Count 9.6 10^3/uL (4.0-11.0)
[2025-01-01] MEDS: IODINE/POTASSIUM IODIDE 8 ML SOLUTION TOPICAL (09:59)
[2025-01-01] MEDS: FERRIC SUBSULFATE 8 ML SOLUTION TOPICAL (10:07)
[2025-01-01 10:15] VITALS: BP 95/61; PULSE 106; TEMP 36.6; O2SAT 96
--- NOTE | 2025-01-01 10:17 | PM.ONB ---
Brief Operative Note Date of procedure: 01/01/25 Pre-op diagnosis general: cervical dysplasia Post-op diagnosis: same as pre-op Procedure: NAME OF PROCEDURE: [leep ] PROCEDURE: Patient was taken back to the Operating Room where she was given general anesthesia without difficulty. She was then placed in the dorsal lithotomy position. She was then prepped and draped in the normal sterile fashion. A weighted speculum was placed into the patient's vagina. The anterior lip of the cervix was identified and grasped with a single-tooth tenaculum. The patient's cervix was then copiously irrigated using vinegar.? Then, a Lugol Solution was also placed onto the patient's cervix which demonstrated increased uptake of the Lugol solution at the [?5] o?clock and [? 10] o?clock positions.? At that time, the LEEP portion of the procedure was performed, including both the [? 5] o?clock and [?10] o?clock positions. The ectocervix was sent out to Pathology. The patient's cervix was then coagulated using suction cautery. Excellent hemostasis was assured.? Monsel Solution was then placed onto the patient's cervix to help maintain adequate hemostasis. All instruments were removed from the patient's vagina. The anterior lip of the cervix demonstrated excellent hemostasis.? The patient tolerated the procedure well. Sponge, lap, and needle counts were correct x 2. The patient was taken to Recovery Room in stable condition. Anesthesia: MAC Surgeon: Fletcher Pro Estimated blood loss (mL): 10 Pathology: other (cervical dysplasia) Condition: stable Disposition: PACU Urinary Catheter Management Urinary Catheter Management Straight: Cath placed during this visit: no
[2025-01-01 10:30] VITALS: BP 101/64; PULSE 102; O2SAT 99
[2025-01-01 10:45] VITALS: BP 116/75; PULSE 92; O2SAT 99
--- NOTE | 2025-01-01 10:59 | PC.NURSE ---
1100: pt ambulates to bathroom with minimal assistance,pt voids without difficulty. urine clear,yellow.
[2025-01-01 11:10] VITALS: BP 110/64; PULSE 88; O2SAT 100
== END 2025-01-01 11:13 | disposition home or self-care (01) ==
LOC: SURGOUT 07:52
PROVIDERS: Visit Provider Obstetrics & Gynecology
PROC: (CPT 940; principal; 2025-01-01 08:55)
DX: R87.613 High grade squamous intraepithelial lesion on cytologic smear of cervix (HGSIL) (principal); N72 Inflammatory disease of cervix uteri; Z90.49 Acquired absence of other specified parts of digestive tract; K21.9 Gastro-esophageal reflux disease without esophagitis
CPT/HCPCS: 57522; 36415; 82948; 84702; 85025; J1100; J1885; J2250; J2405; J2704; J3010